=== PATIENT | male | born 1975 | race Caucasian/White ===

== ENCOUNTER → 2017-05-27 08:49 | Outpatient (CLI) | payer BC, SELFPAY ==
--- NOTE | 2017-05-27 08:53 | CT_ITS ---
CT abdomen pelvis w con CLINICAL INDICATION: Right flank pain and hematuria ITS.REASON: RT FLANK PAIN, HEMATURIA ORDERING PHYSICIAN: Jung Jensen MD PATIENT AGE: 41 years COMPARISON: 02/05/2016 TECHNIQUE: Axial images obtained with sagittal and coronal reformats. PROCEDURE: Oral Contrast: None IV Contrast: 75 mL Isovue-370. FINDINGS: Lung bases are clear. The liver, gallbladder, spleen, adrenal glands, and pancreas are unremarkable. No renal or ureteral calculi. No hydronephrosis. No obvious renal mass. There are small lymph nodes in the peritoneum and retroperitoneum which are unchanged. Urinary bladder has an unremarkable appearance. Unremarkable appendix. Nonspecific coarse central prostate calcifications are present. No evidence of diverticulitis. No evidence of intestinal obstruction or free air. There is a tiny umbilical hernia which contains fat. No acute bony anomalies. IMPRESSION: 1. Negative CT abdomen pelvis with no acute finding. 2. No renal or ureteral calculi.
--- NOTE | 2017-05-27 13:27 | HMH.ITSHM ---
blood pressure med
== END ==
PROVIDERS: Family Provider Family Medicine; PCP Family Medicine; Visit Provider Family Medicine
DX: R10.9 Unspecified abdominal pain (principal); R31.9 Hematuria, unspecified
CPT/HCPCS: 74177; Q9967

== ENCOUNTER → 2022-09-14 09:21 | Outpatient (CLI) | payer BC, SELFPAY ==
[2022-09-14 18:42] LABS: Alanine Aminotransferase 47 U/L (12-78); Albumin Level 4.7 g/dl (3.5-5.0); Albumin/Globulin Ratio 2.1 (1.1-1.8); Alkaline Phosphatase 83 U/L (38-126); Anion Gap 17.8 mEq/L (5-15); Aspartate Amino Transferase 37 U/L (17-59); Basophils # 0.1 K/mm3 (0-0.2); Basophils % 0.6 % (0.1-2.0); Bilirubin,Total 0.5 mg/dl (0.2-1.3); Blood Urea Nitrogen 7 mg/dl (9-20); Calcium 9.3 mg/dl (8.4-10.2); Carbon Dioxide 25 mmol/L (22.0-30.0); Chloride 100 mmol/L (98-107); Chol/HDL Ratio 5.7 (1-3.5); Cholesterol 204 mg/dl (140-200); Eosinophils # 0.2 K/mm3 (0.0-0.4); Eosinophils % 2.4 % (0.1-12.0); Estimated Glomerular Filt Rate 103 ml/min (>60); GFR (African American) 125 ML/MIN (>60); Globulin 2.2 g/dL (1.3-3.2); Glucose 113 mg/dl (74-100); HDL Cholesterol 36 mg/dl (40-60); Hematocrit 49.6 % (42.0-52.0); Hemoglobin 16.5 g/dL (14.1-18.0); Lymphocytes # 2.9 K/mm3 (0.7-4.5); Lymphocytes % 28.2 % (10-50); Mean Corpuscular HGB Conc 33.3 g/dL (31.8-35.4); Mean Corpuscular Hemoglobin 30.2 pg (27.0-31.2); Mean Corpuscular Volume 90.8 fl (80-94); Mean Platelet Volume 8.8 fl (7.4-10.4); Monocytes # 0.7 K/mm3 (0.1-1.0); Monocytes % 7.3 % (1.7-9.3); Neutrophils # 6.3 K/mm3 (1.8-7.8); Neutrophils % 61.5 % (37.0-80.0); Platelet Count 307 K/mm3 (142-424); Potassium 3.8 mmoL/L (3.5-5.1); Red Blood Count 5.46 M/mm3 (4.60-6.20); Red Cell Distribution Width 13.7 % (11.5-17.5); Sodium 139 mmol/L (136-145); Total Protein,Serum 6.9 g/dl (6.3-8.2); Triglycerides 220 mg/dl (30-150); VLDL Cholesterol 44 mg/dL (0-40); White Blood Count 10.2 K/mm3 (4.8-10.8)
[2022-09-14 18:53] LABS: Direct LDL Cholesterol 129.16 mg/dL (100-129)
[2022-09-14 19:04] LABS: Hemoglobin A1C 5.5 % (4.0-6.0)
[2022-09-14 19:05] LABS: Creatinine,Urine Random 82 mg/dL (Not Estab.)
[2022-09-14 19:09] LABS: Microalbumin/Creatinine Ratio 17.4
[2022-09-14 19:13] LABS: Prostate Specific Ag Screen 0.2 ng/ml (0.0-4.0); Thyroid Stimulating Hormone 2.05 uIU/mL (0.465-4.68)
== END ==
LOC: LAB.DROPOF 09-15 09:22
PROVIDERS: PCP Nurse Practitioner; Visit Provider Nurse Practitioner
DX: E78.5 Hyperlipidemia, unspecified (principal); I10 Essential (primary) hypertension; Z13.1 Encounter for screening for diabetes mellitus; Z79.899 Other long term (current) drug therapy; Z12.5 Encounter for screening for malignant neoplasm of prostate
CPT/HCPCS: 80053; 80061; 82043; 82570; 83036; 84443; 85025; G0103

== ENCOUNTER 2022-09-15 11:33 | Emergency (ER) | payer BC, SELFPAY ==
--- NOTE | 2022-09-15 11:37 | ECG_ITS ---
APPROVED REPORT Exam: Resting ECG HR:93 bpm ECG Measurements Heart Rate 93 AXES DC 131 P 56 QRSd 99 QRS 26 QT 362 T 48 QTc 413 Conclusion SINUS RHYTHM NORMAL ECG UNCONFIRMED REPORT Electronically signed by : Estrada Sheriff MD 09/15/2022 22:03:55
[2022-09-15 11:41] VITALS: BP 155/83; PULSE 92; RESP 16; TEMP 36.7; O2SAT 96; BMI 33.4
--- NOTE | 2022-09-15 12:00 | XR_ITS ---
FINAL REPORT CLINICAL HISTORY: CP FINDINGS: No acute pulmonary opacity is present. There is no evidence of effusion or pneumothorax. Mediastinum is unremarkable. Heart size is normal. IMPRESSION: No acute abnormality. Reviewed, Interpreted and Dictated by Lilly Leo MD Transcribed by Tea Gee Authenticated and [facility]
--- NOTE | 2022-09-15 12:00 | CT_ITS ---
FINAL REPORT TECHNIQUE: Axial images of the head was performed by computed tomography. Coronal reformatted images were obtained and reviewed. This study was performed with techniques to keep radiation doses as low as reasonably achievable (ALARA). Individualized dose reduction techniques using automated exposure control or adjustment of mA and/or kV according to the patient's size were employed. CLINICAL HISTORY: L arm numbness at 0300, now resolved FINDINGS: No abnormal density is seen. Ventricles are normal. There is no hemorrhage. No mass effect is seen. Bone windows show no evidence of fracture. IMPRESSION: No acute findings. Reviewed, Interpreted and Dictated by Lilly Leo MD Transcribed by Tea Gee Authenticated and [facility]
[2022-09-15 12:01] VITALS: BP 131/82; PULSE 82; O2SAT 97
[2022-09-15 12:18] LABS: Chloride 99 mmol/L (98-107)
[2022-09-15 12:19] LABS: Potassium 3.6 mmoL/L (3.5-5.1); Sodium 138 mmol/L (136-145)
[2022-09-15 12:20] LABS: Basophils # 0.1 K/mm3 (0-0.2); Basophils % 0.4 % (0.1-2.0); Eosinophils # 0.2 K/mm3 (0.0-0.4); Eosinophils % 1.8 % (0.1-12.0); Hematocrit 46.1 % (42.0-52.0); Hemoglobin 15.4 g/dL (14.1-18.0); Lymphocytes # 2.9 K/mm3 (0.7-4.5); Lymphocytes % 21.8 % (10-50); Mean Corpuscular HGB Conc 33.4 g/dL (31.8-35.4); Mean Corpuscular Hemoglobin 30.3 pg (27.0-31.2); Mean Corpuscular Volume 90.6 fl (80-94); Mean Platelet Volume 7.7 fl (7.4-10.4); Monocytes # 0.8 K/mm3 (0.1-1.0); Monocytes % 6.3 % (1.7-9.3); Neutrophils # 9.3 K/mm3 (1.8-7.8); Neutrophils % 69.8 % (37.0-80.0); Platelet Count 267 K/mm3 (142-424); Red Blood Count 5.09 M/mm3 (4.60-6.20); Red Cell Distribution Width 13.7 % (11.5-17.5); White Blood Count 13.3 K/mm3 (4.8-10.8)
[2022-09-15 12:21] LABS: Alanine Aminotransferase 51 U/L (12-78); Alkaline Phosphatase 69 U/L (38-126); Anion Gap 17.6 mEq/L (5-15); Aspartate Amino Transferase 41 U/L (17-59); Bilirubin,Direct 0.1 mg/dl (0.0-0.4); Bilirubin,Indirect 0.4 mg/dL (0.0-0.9); Bilirubin,Total 0.5 mg/dl (0.2-1.3); Bilirubin,Unconjugated 0.4 mg/dL (0.0-1.1); Blood Urea Nitrogen 8 mg/dl (9-20); Carbon Dioxide 25 mmol/L (22.0-30.0); Creatinine Clearance Estimated 159 mL/min (50-200); Estimated Glomerular Filt Rate 103 ml/min (>60); GFR (African American) 125 ML/MIN (>60)
[2022-09-15 12:22] LABS: Albumin Level 4.4 g/dl (3.5-5.0); Calcium 9.2 mg/dl (8.4-10.2); Glucose 164 mg/dl (74-100)
[2022-09-15 12:23] VITALS: BP 139/77; PULSE 78; RESP 17; O2SAT 94
[2022-09-15 12:30] VITALS: BP 144/76; PULSE 74; RESP 17; O2SAT 96
[2022-09-15 12:35] LABS: Troponin I < 0.01 ng/ml (0.00-0.034)
--- NOTE | 2022-09-15 12:44 | HMH.EDGENADL ---
Discharge Plan Disposition Patient Disposition: Home, Self-Care Condition: Good Prescriptions Prescriptions: No Action metoprolol succinate 25 mg tablet extended release 24 hr 25 mg PO DAILY Qty: 90 1RF losartan 50 mg tablet 50 mg PO DAILY Qty: 30 0RF pantoprazole 40 mg tablet,delayed release (DR/EC) 40 mg PO DAILY Qty: 30 5RF Referrals Follow up/Referrals: Reyna Perez APRN [Primary Care Provider] - See instructions Activity Restrictions/Add. Instructions Additional Instructions/Restrictions: You were evaluated in the emergency department today. Please follow-up closely with your primary care provider. Return to the emergency department for new or worsening symptoms. Clinical Impressions Clinical Impression: Left arm numbness Stand Alone Forms Stand Alone Forms: Work/School Release Instructions Patient Instructions: DI for Numbness/Tingling Discharge ED Provider: Beatris Perdomo General Adult HPI General Chief complaint: Neuro Symptoms/Deficit Stated complaint: LT arm numbness Time Seen by Provider: 09/15/22 11:36 Mode of Arrival: Ambulatory Source of Information: Patient and Spouse Limitations: No Limitations Description of Symptoms (Recalled from ER Triage Doc. by RN): pt comes in with c/o left arm numbness that began las tnight into this morning. pt reports that about 30 mins [employer] numbness stopped. pt reports that he was seen by his PCP yesterday and was started on a new BP medication, losartan 50 mg. no neuro deficits on exam. History of Present Illness HPI narrative: This patient is a 47-year-old male who has a history of hypertension presenting to the emergency department for evaluation with concern for left arm tingling that started around 3:00 AM while he was at work and stopped approximately 30 minutes prior to arrival. He states that the numbness was on the medial aspect of his left bicep and felt like a suction cup was on his arm. He was afraid that he may have been bitten by something, but he is in the process of being worked up for history of chest pain, for which his primary care provider wants to get a stress test. Given pending cardiac work-up and left upper extremity symptoms, the patient was advised to come to the emergency department for evaluation. He denies any symptoms at this time. He also denies any recent fevers, chills, chest pain, shortness of breath, abdominal pain, nausea, vomiting, diaphoresis, or other concerns. He also denies any history of traumatic injury or any history of neck pain, headaches, vision changes, other numbness or tingling, weakness, or other concerns. Related Data Previous Rx's Medication Instructions Recorded pantoprazole 40 mg tablet,delayed 40 mg PO DAILY #30 tabs 04/13/22 release losartan 50 mg tablet 50 mg PO DAILY #30 tabs 09/14/22 metoprolol succinate 25 mg 25 mg PO DAILY #90 tabs 09/14/22 tablet,extended release 24 hr Allergies Allergy/AdvReac Type Severity Reaction Status Date / Time No Known Allergies Allergy Verified 09/14/22 14:07 [facility] Disclaimer: The information contained in this section may have been updated after the patient was seen, as this information can be updated by other users. Medical History Chest pain Essential hypertension Family history of early CAD Hyperlipidemia Social History Smoking Status: Current every day smoker alcohol intake: never current occupational status: employed Travel in the last 8 weeks: Inside the [place] ROS Obtained: Yes All systems reviewed & no additional complaints except as documented 14 point review of systems obtained and negative except as mentioned in HPI. Physical Exam General General appearance: alert and in no apparent distress Head Head exam: atraumatic and normocephalic Eye Eye exam: Present normal appearance, PERRL and EOMI ENT
[2022-09-15 13:00] VITALS: BP 146/79; PULSE 76; RESP 17; O2SAT 96
[2022-09-15 13:27] VITALS: BP 145/93; PULSE 75; RESP 15; TEMP 36.6
== END 2022-09-15 13:42 | disposition home or self-care (01) ==
PROVIDERS: Emergency Provider Emergency Medicine; PCP Nurse Practitioner
DX: R20.0 Anesthesia of skin (principal); R20.2 Paresthesia of skin; I10 Essential (primary) hypertension; F17.200 Nicotine dependence, unspecified, uncomplicated
CPT/HCPCS: 70450; 71045; 80048; 80076; 84484; 85025; 93005; 99285

== ENCOUNTER → 2022-09-15 14:53 | Outpatient (CLI) | payer BC, SELFPAY | LOC: RT 14:54 | PROVIDERS: PCP Nurse Practitioner; Visit Provider Nurse Practitioner | DX: R07.9 Chest pain, unspecified (principal) | CPT/HCPCS: 93306 ==

== ENCOUNTER → 2022-09-17 07:35 | Outpatient (CLI) | payer BC, SELFPAY ==
--- NOTE | 2022-09-17 07:37 | NM_ITS ---
APPROVED REPORT Exam: Nuclear Stress Test Indication: chest pain Patient Location: Outpatient Stress Tech: Betty Vargas [place] Tech:TWILA Franklin RT(R)(N) Ht: 5 ft 8 in Wt: 220 lbs HR: 69 bpm BP: 151/83 mmHg BSA: 2.13 m2 TID: 1.18 BMI: 33.4 History: chest pain Procedure: Patient exercised on Feliciano protocol 7:31 minutes and sec, resting heart rate 69 bpm, resting blood pressure 151/83 mmHg, with exercise maximum heart rate achived was 138 bpm which is 80 % of the maximum predicted heart rate and blood pressure was 196/86 mmHg. Test was stopped due to soa. Patient denied any complaint of chest pain. Patient has exercise capacity, achieved 10.0 METs of workload on treadmill, the blood pressure response to exercise was . Cardiac Stress and Resting SPECT Images: Cardiac Stress and Resting SPECT images were obtained using technetium 99m Myoview 32.8 mCi stress and 10.38 mCi at rest. Stress images reveal mildly decreased myocardial activity in the inferior wall while rest images reveal uniform myocardial activity Images calculated ejection fraction of 50% with normal wall motion Conclusion: Small degree of reversible ischemia in the inferior wall Normal ejection fraction with normal wall motion Medical correlation advised Electronically signed by : Tommy Andrade MD 09/17/2022 13:49:37
--- NOTE | 2022-09-17 07:37 | CA_ITS ---
APPROVED REPORT Exam: Exercise Treadmill Technologist: Betty Garcia, Ht: 5 ft 8 in Wt: 260 lbs BSA: 2.28 m2 HR: 65 bpm BP: 152/74 mmHg Medical History Medications: Pantoprazole,,,,, Metoprolol Succinate ER,,,,, Stress Test Details Test: Feliciano HR Resting HR: 69 bpm Max Heart Rate (APMHR): 172.611823 bpm Max HR Achieved: 138 bpm Target HR (85% APMHR): 146.048943 bpm % of APMHR: 80.23 Recovery HR: 84 bpm BP Resting BP: 151/83 mmHg Max BP: 196/86 mmHg Recovery BP: 141.0/62.0 mmHg ECG Resting ECG: NSR, normal Clinical Exercise duration: 07:31 min Highest Stage Achieved: III Exercise capacity: 10.1 METs Stress ECG Conclusion Walked 7:31 on Feliciano Protocol Max HR: 138 % of PM: 80% Max BP: 196/86 METs: 10.1 Test stopped due to: SOA, Fatigue Symptoms: No CP. Arrhythmias/Ectopy: Rare PAC. ST-T Changes: Normal ST response to exercise. Conclusion: Normal GXT to HR achieved (80% PM)-Blunted HR response on Beta-Chinyere. Myoview images reported separately. Test Summary REST . . . . . . . Sitting REST . . . . . . . Standing REST 03:58 0.0 0.0 69 . 151/ 83 . . Stage 1 01:00 10.0 1.7 94 . . . . Stage 1 02:00 10.0 1.7 100 . . . . Stage 1 03:00 10.0 1.7 103 . . . . Stage 2 01:00 12.0 2.5 109 . . . . Stage 2 02:00 12.0 2.5 114 . . . . Stage 2 03:00 12.0 2.5 117 . 196/ 86 . . Stage 3 01:00 14.0 3.4 130 . . . . Stage 3 01:31 14.0 3.4 136 . . . Stop exercise at 07:31 RECOVERY 01:00 0.0 0.0 123 . . . . RECOVERY 02:00 0.0 0.0 97 . . . . RECOVERY 03:00 0.0 0.0 89 . 156/ 63 . . RECOVERY 04:00 0.0 0.0 89 . 156/ 63 . . RECOVERY 05:00 0.0 0.0 84 . 144/ 68 . . RECOVERY 05:32 0.0 0.0 85 . 141/ 62 . . Electronically signed by : Tommy Andrade MD 09/17/2022 10:30:17
== END ==
LOC: RAD 07:37
PROVIDERS: PCP Nurse Practitioner; Visit Provider Nurse Practitioner
DX: R07.9 Chest pain, unspecified (principal)
CPT/HCPCS: 78452; 93017; A9502

== ENCOUNTER 2022-09-22 08:43 | Day surgery (SDC) | payer BC, SELFPAY ==
[2022-09-22] VITALS (12 sets, daily range): BP systolic 114–177; BP diastolic 60–106; PULSE 72–100; RESP 16–18; TEMP 36.8; O2SAT 94–97; BMI 38.9
--- NOTE | 2022-09-22 07:44 | IR_ITS ---
APPROVED REPORT Patient Location: Outpatient Bin Tripper Operator: TWILA Flaherty RT (R) PROCEDURES Left heart catheterization Left ventriculogram Selective coronary angiogram INDICATION Abnormal Myoview, Angina pectoris Informed consent was obtained prior to the procedure. COMPLICATIONS None Estimated Blood Loss: Less than 10 ML TECHNIQUE One percent lidocaine used to anesthetize the right anterior aspect of the wrist. The right radial artery was accessed via the Seldinger technique. A 6 [place] sheath was placed in the right radial artery. 150 mg magnesium sulfate, 800 mcg of nitroglycerin, 1mg Lidocaine and 5000 U Heparin were given through the arterial sheath. The papa catheter was also used to perform left heart catheterization, left ventriculogram and selective coronary angiogram. At the end of the procedure the sheath was removed good hemostasis was achieved using Traclet band, patient was transferred to the postop holding area in stable condition. ANGIOGRAPHIC RESULTS The left main artery Normal The left anterior descending artery Has proximal and mid vessel 20 to 30% stenoses The circumflex artery Has mid vessel 30% stenoses The right coronary artery Is dominant and has diffuse 20 to 40% stenoses The CRUZ ventriculogram reveals Normal 65% The left ventricular end-diastolic pressure Elevated at 25 to 30 mmHg IMPRESSION Mild to moderate nonflow limiting coronary disease as described above Normal ejection fraction Elevated LVEDP consistent with diastolic dysfunction PLAN 1. Medical management for coronary disease 2. Treatment of diastolic dysfunction 3. At this point I am going to hold on starting patient on the loop diuretics and ask him to cut back on carbonated drinks which apparently are consumed copiously 4. LDL less than 55 to be achieved with high intensity statin 5. Recommend sleep study Electronically signed by : Tommy Andrade MD 09/22/2022 12:55:25
== END 2022-09-22 13:54 | disposition home or self-care (01) ==
PROVIDERS: PCP Nurse Practitioner; Visit Provider Internal Medicine
DX: R07.9 Chest pain, unspecified (principal); I25.118 Atherosclerotic heart disease of native coronary artery with other forms of angina pectoris; F17.210 Nicotine dependence, cigarettes, uncomplicated; Z79.899 Other long term (current) drug therapy; I70.203 Unspecified atherosclerosis of native arteries of extremities, bilateral legs; I10 Essential (primary) hypertension; E78.5 Hyperlipidemia, unspecified; Z82.49 Family history of ischemic heart disease and other diseases of the circulatory system
CPT/HCPCS: 93458; 99152; C1725; C1760; C1769; J1644; Q9967

== ENCOUNTER → 2022-11-05 14:17 | Outpatient (CLI) | payer BC, SELFPAY ==
[2022-11-05 15:20] LABS: Chloride 103 mmol/L (98-107); Potassium 4.2 mmoL/L (3.5-5.1); Sodium 139 mmol/L (136-145)
[2022-11-05 15:23] LABS: Anion Gap 15.2 mEq/L (5-15); Blood Urea Nitrogen 12 mg/dl (9-20); Carbon Dioxide 25 mmol/L (22.0-30.0); Estimated Glomerular Filt Rate 103 ml/min (>60); GFR (African American) 125 ML/MIN (>60); Glucose 93 mg/dl (74-100)
== END ==
PROVIDERS: PCP Family Medicine; Visit Provider Nurse Practitioner
DX: I10 Essential (primary) hypertension (principal)
CPT/HCPCS: 36415; 80048

== ENCOUNTER → 2022-11-18 23:00 | Outpatient (CLI) | payer BC, SELFPAY ==
[2022-11-18 19:09] LABS: Alanine Aminotransferase 38 U/L (12-78); Albumin Level 4.5 g/dl (3.5-5.0); Alkaline Phosphatase 103 U/L (38-126); Anion Gap 11.8 mEq/L (5-15); Aspartate Amino Transferase 31 U/L (17-59); Bilirubin,Total 0.7 mg/dl (0.2-1.3); Blood Urea Nitrogen 12 mg/dl (9-20); Calcium 9.1 mg/dl (8.4-10.2); Carbon Dioxide 26 mmol/L (22.0-30.0); Chloride 105 mmol/L (98-107); Chol/HDL Ratio 4.1 (1-3.5); Cholesterol 120 mg/dl (140-200); Estimated Glomerular Filt Rate 90 ml/min (>60); GFR (African American) 109 ML/MIN (>60); Globulin 2.2 g/dL (1.3-3.2); Glucose 84 mg/dl (74-100); HDL Cholesterol 29 mg/dl (40-60); Potassium 3.8 mmoL/L (3.5-5.1); Sodium 139 mmol/L (136-145); Total Protein,Serum 6.7 g/dl (6.3-8.2); Triglycerides 148 mg/dl (30-150); VLDL Cholesterol 30 mg/dL (0-40)
[2022-11-18 19:20] LABS: Direct LDL Cholesterol 68.44 mg/dL (100-129)
[2022-11-18 20:57] LABS: Hemoglobin A1C 5.8 % (4.0-6.0)
== END ==
PROVIDERS: PCP Nurse Practitioner; Visit Provider Nurse Practitioner
DX: I10 Essential (primary) hypertension (principal); E78.5 Hyperlipidemia, unspecified; Z79.899 Other long term (current) drug therapy
CPT/HCPCS: 80053; 80061; 83036

== ENCOUNTER 2024-01-13 16:19 | Outpatient (CLI) | payer BC, SELFPAY ==
[2024-01-13 19:23] LABS: Basophils # 0.1 K/mm3 (0-0.2); Basophils % 0.5 % (0.1-2.0); Eosinophils # 0.2 K/mm3 (0.0-0.4); Eosinophils % 2.1 % (0.1-12.0); Hematocrit 45.8 % (42.0-52.0); Hemoglobin 14.5 g/dL (14.1-18.0); Lymphocytes # 2.8 K/mm3 (0.7-4.5); Lymphocytes % 26.1 % (10-50); Mean Corpuscular HGB Conc 31.6 g/dL (31.8-35.4); Mean Corpuscular Hemoglobin 30.6 pg (27.0-31.2); Mean Corpuscular Volume 96.8 fl (80-94); Mean Platelet Volume 8.6 fl (7.4-10.4); Monocytes # 0.7 K/mm3 (0.1-1.0); Neutrophils # 6.8 K/mm3 (1.8-7.8); Neutrophils % 64.3 % (37.0-80.0); Platelet Count 295 K/mm3 (142-424); Red Blood Count 4.73 M/mm3 (4.60-6.20); Red Cell Distribution Width 14.3 % (11.5-17.5); White Blood Count 10.6 K/mm3 (4.8-10.8)
[2024-01-13 19:45] LABS: Microalbumin/Creatinine Ratio 31.8
[2024-01-13 19:47] LABS: Creatinine,Urine Random 86 mg/dL (Not Estab.)
[2024-01-13 19:59] LABS: Alanine Aminotransferase 26 U/L (12-78); Albumin Level 4.1 g/dl (3.5-5.0); Albumin/Globulin Ratio 1.6 (1.1-1.8); Alkaline Phosphatase 98 U/L (38-126); Aspartate Amino Transferase 25 U/L (17-59); Bilirubin,Total 0.6 mg/dl (0.2-1.3); Blood Urea Nitrogen 14 mg/dl (9-20); Calcium 9.4 mg/dl (8.4-10.2); Carbon Dioxide 25 mmol/L (22.0-30.0); Chloride 109 mmol/L (98-107); Chol/HDL Ratio 5.1 (1-3.5); Cholesterol 138 mg/dl (140-200); Estimated Glomerular Filt Rate 79 ml/min (>60); GFR (African American) 96 ML/MIN (>60); Globulin 2.6 g/dL (1.3-3.2); Glucose 95 mg/dl (74-100); HDL Cholesterol 27 mg/dl (40-60); Potassium 3.9 mmoL/L (3.5-5.1); Total Protein,Serum 6.7 g/dl (6.3-8.2); Triglycerides 168 mg/dl (30-150); VLDL Cholesterol 34 mg/dL (0-40)
[2024-01-13 20:10] LABS: Hemoglobin A1C 5.7 % (4.0-6.0)
[2024-01-13 20:11] LABS: Anion Gap 9.9 mEq/L (5-15); Sodium 140 mmol/L (136-145)
[2024-01-13 20:14] LABS: 25-OH Vitamin D, Total 72.4 ng/mL (30-100)
[2024-01-13 20:27] LABS: Direct LDL Cholesterol 80.71 mg/dL (100-129)
[2024-01-13 20:31] LABS: Prostate Specific Ag Screen 0.3 ng/ml (0.0-4.0); Thyroid Stimulating Hormone 2.77 uIU/mL (0.465-4.68)
[2024-01-13 20:50] LABS: Vitamin B12 528 pg/mL (239-931)
== END 2024-01-13 23:59 | disposition home or self-care (01) ==
LOC: LAB.DROPOF 01-14 16:19
PROVIDERS: PCP Nurse Practitioner; Visit Provider Nurse Practitioner
DX: E55.9 Vitamin D deficiency, unspecified (principal); I10 Essential (primary) hypertension; E78.5 Hyperlipidemia, unspecified; I25.10 Atherosclerotic heart disease of native coronary artery without angina pectoris; Z12.5 Encounter for screening for malignant neoplasm of prostate; Z68.37 Body mass index [BMI] 37.0-37.9, adult; E66.9 Obesity, unspecified; F17.200 Nicotine dependence, unspecified, uncomplicated
CPT/HCPCS: 80050; 80053; 80061; 82043; 82306; 82570; 82607; 83036; 84443; 85025; G0103

== ENCOUNTER 2024-04-04 16:15 | Outpatient (CLI) | payer BC, SELFPAY ==
--- NOTE | 2024-04-04 16:21 | XR_ITS ---
PROCEDURE INFORMATION: Exam: XR Right Shoulder Exam date and time: 04/04/2024 4:23 PM Age: 48 years old Clinical indication: Pain; Shoulder; Right; Additional info: Right shoulder pain TECHNIQUE: Imaging protocol: Radiologic exam of the right shoulder. Views: 2 or more views. COMPARISON: CR XR CHEST PORTABLE 09/15/2022 12:23 PM FINDINGS: Bones/joints: No acute fracture or dislocation. Normal bone mineralization. Acromioclavicular joint is normal. Glenohumeral joint is normal. Included ribs are unremarkable. Soft tissues: No soft tissue swelling or radiopaque foreign body. IMPRESSION: No acute findings.
== END 2024-04-04 23:59 | disposition home or self-care (01) ==
LOC: LAB 16:16
PROVIDERS: PCP Nurse Practitioner; Visit Provider Nurse Practitioner
DX: M25.511 Pain in right shoulder (principal)
CPT/HCPCS: 73030

== ENCOUNTER 2024-09-18 17:04 | Outpatient (CLI) | payer BC, SELFPAY ==
--- NOTE | 2024-09-18 17:35 | XR_ITS ---
PROCEDURE INFORMATION: Exam: XR Chest Exam date and time: 09/18/2024 5:38 PM Age: 49 years old Clinical indication: Pain; Chest pressure; Additional info: Postprandial chest pain TECHNIQUE: Imaging protocol: Radiologic exam of the chest. Views: 2 views. COMPARISON: CR XR CHEST PORTABLE 09/15/2022 12:23 PM FINDINGS: Lungs: Unremarkable. No consolidation. Pleural spaces: Unremarkable. No pleural effusion. No pneumothorax. Heart/Mediastinum: Unremarkable. No cardiomegaly. Bones/joints: Unremarkable. IMPRESSION: No acute findings.
[2024-09-18 17:51] LABS: Basophils # 0.1 K/mm3 (0-0.2); Basophils % 0.5 % (0.1-2.0); Eosinophils # 0.1 Kmm3 (0.0-0.4); Eosinophils % 0.6 % (0.1-12.0); Hematocrit 44.4 % (42.0-52.0); Hemoglobin 15.2 g/dL (14.1-18.0); Immature Granulocytes # 0.04 10^3uL; Immature Granulocytes % 0.4 %; Lymphocytes # 1.8 K/mm3 (0.7-4.5); Lymphocytes % 18.2 % (10-50); Mean Corpuscular HGB Conc 34.2 g/dL (31.8-35.4); Mean Corpuscular Hemoglobin 30.5 pg (27.0-31.2); Mean Platelet Volume 9.5 fl (7.4-10.4); Monocytes # 0.8 K/mm3 (0.1-1.0); Monocytes % 8.3 % (1.7-9.3); Neutrophils # 7.1 K/mm3 (1.8-7.8); Nucleated Red Blood Cells # 0 10^3/uL; Nucleated Red Blood Cells % 0 %; Platelet Count 271 K/mm3 (142-424); Red Blood Count 4.99 M/mm3 (4.60-6.20); Red Cell Distribution Width 13.1 % (11.5-17.5); Red Cell Distribution Width-SD 42.8 fL; White Blood Count 9.8 K/mm3 (4.8-10.8)
[2024-09-18 20:01] LABS: Alanine Aminotransferase 23 U/L (12-78); Albumin Level 4.8 g/dl (3.5-5.0); Albumin/Globulin Ratio 2.4 (1.1-1.8); Alkaline Phosphatase 107 U/L (38-126); Amylase 54 U/L (30-110); Anion Gap 9.4 mEq/L (5-15); Aspartate Amino Transferase 23 U/L (17-59); Bilirubin,Total 0.4 mg/dl (0.2-1.3); Blood Urea Nitrogen 15 mg/dl (9-20); Calcium 9.2 mg/dl (8.4-10.2); Carbon Dioxide 23 mmol/L (22.0-30.0); Chloride 110 mmol/L (98-107); Estimated Glomerular Filt Rate 79 ml/min (>60); GFR (African American) 96 ML/MIN (>60); Glucose 89 mg/dl (74-100); Lipase 89 U/L (23-300); Potassium 4.4 mmoL/L (3.5-5.1); Sodium 138 mmol/L (136-145); Total Protein,Serum 6.8 g/dl (6.3-8.2)
[2024-09-18 20:16] LABS: Troponin I 0.09 ng/ml (0.00-0.034)
[2024-09-21 07:32] LABS: H. pylori Breath Test Negative (Negative)
== END 2024-09-18 23:59 | disposition home or self-care (01) ==
PROVIDERS: PCP Nurse Practitioner; Visit Provider Nurse Practitioner
DX: I25.10 Atherosclerotic heart disease of native coronary artery without angina pectoris (principal); R07.9 Chest pain, unspecified; K21.9 Gastro-esophageal reflux disease without esophagitis; R14.0 Abdominal distension (gaseous)
CPT/HCPCS: 36415; 71046; 80053; 82150; 83013; 83690; 84484; 85025

== ENCOUNTER 2024-09-19 16:21 | Inpatient (IN) | payer BC, SELFPAY ==
[2024-09-19] VITALS (20 sets, daily range): BP systolic 99–166; BP diastolic 66–105; PULSE 60–80; RESP 18–20; TEMP 36.4–37.1; O2SAT 95–100; BMI 36.9
[2024-09-19 10:31] LABS: Troponin I 0.11 ng/ml (0.00-0.034)
--- NOTE | 2024-09-19 12:39 | IR_ITS ---
APPROVED REPORT Patient Location: Outpatient Acid Dumper: TWILA Nichloson RT (R) PROCEDURES Left heart catheterization Left ventriculogram Selective coronary angiogram Drug-eluting stent deployment to the distal dominant right coronary artery INDICATION Acute non-ST elevation myocardial infarction, Coronary artery disease, Informed consent was obtained prior to the procedure. COMPLICATIONS NONE Estimated Blood Loss: LESS THAN 10 ML TECHNIQUE One percent lidocaine used to anesthetize the right anterior aspect of the wrist. The right radial artery was accessed via the Seldinger technique. A 6 Korean sheath was placed in the right radial artery. 2.5 mg of Verapamil, 800 mcg of nitroglycerin, 1mg Lidocaine and 5000 U Heparin were given through the arterial sheath. The JL3 catheter was also used to perform left heart catheterization, left ventriculogram and selective coronary angiogram. At the end of the diagnostic angiogram therapeutic Was administered given a therapeutic ACT and the guide catheter was placed in the right coronary followed by a Choice PT extra-support wire placed distally. A 3 mm x 38 mm Sathish frontier stent was placed in the distal right coronary artery just proximal to the posterior descending artery and deployed at 12 mindy. A 3 mm x 12 mm noncompliant balloon was deployed in the proximal and midportion of the stent at 22 mindy to post dilate. BRIANNA II flow was present at the beginning of the procedure with BRIANNA-3 flow at the end of the procedure. At the end the procedure the apparatus was removed the sheath was removed and hemostasis was achieved using TR banding patient was transferred to the postop putting in stable condition ANGIOGRAPHIC RESULTS The left main artery Normal The left anterior descending artery Has an ostial 70% stenosis followed by mid vessel diffuse 20 to 30% stenoses The circumflex artery Nondominant yet still large with the proximal 60 to 70% concentric stenosis with 30 and 40% stenoses in a large first obtuse marginal artery The right coronary artery Is a dominant vessel and has proximal 40% stenoses with a distal concentric greater than 90% stenosis accompanied by BRIANNA II flow. There is diffuse 40% stenoses throughout the posterior sending artery The CRUZ ventriculogram reveals Normal 60% The left ventricular end-diastolic pressure Elevated at 20 to 25 mmHg IMPRESSION Critical distal dominant right coronary artery stenosis accompanied by BRIANNA II flow which improved to BRIANNA-3 flow following stenting with 1 drug-eluting stent Persistent severe stenosis in the ostial LAD and proximal circumflex artery Normal ejection fraction Elevated LVEDP Acute non-ST elevation myocardial infarction PLAN 1. Effient and aspirin 2. LDL less than 55 to achieve that high intensity statin 3. Avoidance of tobacco products 4. Patient did have positive troponins with a critical stenosis accompanied by reduced coronary flow which improved following revascularization. Patient should be admitted to the hospital and observed overnight 5. Patient will be brought back to the hospital in 2 to 3 weeks and will undergo stenting of the ostial LAD and circumflex artery Electronically signed by : Tommy Andrade MD 09/19/2024 14:21:56
[2024-09-19] MEDS: HEPARIN 1,000 UNITS/500ML NS (CATH LAB) 3000 UNIT IV (13:05)
[2024-09-19] MEDS: diphenhydrAMINE 50MG/ML VIAL 50 MG IV (13:06)
[2024-09-19] MEDS: LIDOCAINE 1% 10ML MDV 10 ML IJ (13:06)
[2024-09-19] MEDS: 0.9 % SODIUM CHLORIDE 500 ML 25 ML IV (13:06)
[2024-09-19] MEDS: NITROGLYCERIN 800MCG/8ML SYR (CATH LAB) 800 MCG IA (13:07)
[2024-09-19] MEDS: VERAPAMIL 2.5MG/ML 2ML VIAL 2.5 MG IV (13:07)
[2024-09-19] MEDS: FENTANYL 100MCG/2ML VIAL 25 MCG IV (13:49)
[2024-09-19] MEDS: HEPARIN 1,000 UNITS/ML 10ML VIAL (CATH LAB) 5000 UNIT IV (13:49)
[2024-09-19] MEDS: MIDAZOLAM HCL 1MG/ML 5ML VIAL 1 MG IV (13:50)
[2024-09-19] MEDS: IOPAMIDOL-370 (76%);100ML BOTTLE 110 ML IV (14:17)
[2024-09-19] MEDS: PRASUGREL 10MG TAB 60 MG PO (14:17)
[2024-09-19 14:19] LABS: CATHL Activated Clotting Time 363 SEC (74-125)
--- NOTE | 2024-09-19 14:29 | HMH.PHAINT1 ---
Pharmacy Intervention Comments: MEDICATION RECONCILIATION COMPLETED ON PATIENT USING EXTERNAL FILL HISTORY FROM PHARMACY AND LISTS FROM CARDIOLOGY/PCP OFFICES. -[facility]
--- NOTE | 2024-09-19 16:26 | P.HP_ITS ---
History of Present Illness *Admission Date: 09/19/24 *Reason for visit:: chest pain, unstable angina *History of present illness: Mr. Pugh is a 49-year-old male who was referred to cardiology because of worsening chest pain and abnormal labs by his PCP. Smokes 2 to 3 packs of cigarettes a day. Has been having some chest pain. Primary care doc ordered troponin which was detectable at 0.9. Was referred to cardiology for evaluation. On repeat labs, troponin increased to 0.11. Still having pain. Worse with exertion. Risk factors with tobacco use disorder, hypertension. Heart score of 6, risk of Mace of 12 to 16%. Recommended admission for further evaluation and monitoring after NSTEMI. Decision made in cardiology clinic to take patient to the Mental Health Worker for further evaluation. Found to have critical RCA stenosis. Received 1 stent. Discussed case with cardiology after procedure, request admission for monitoring overnight. I agreed to admit for further care. Patient remains on room air. Not having chest pain at this time. Relatively flat affect. at bedside who is his surrogate decision maker. [place] Score 12.3% [facility] Disclaimer: The information contained in this section may have been updated after the patient was seen, as this information can be updated by other users. Medical History GERD (gastroesophageal reflux disease) Right shoulder pain Vitamin D deficiency Diastolic dysfunction Coronary artery disease Claudication Edema of both lower extremities Dizziness Abnormal result of cardiovascular function study Abnormal stress test Family history of early CAD Chest pain Hyperlipidemia Essential hypertension Surgical History Hx of cardiac cath Family History Grandmother Cancer Father Diabetes Heart attack Hypertension Mother Hypertension Social History Smoking Status: Current every day smoker alcohol intake: never current occupational status: employed Travel in the last 8 weeks?: Inside the [place] Have you lived/traveled outside US in past 30 days?: No Contact w/someone who lives/traveled outside US past 30 days?: No Exposure to someone with infectious disease in past 14 days?: No Do you have a fever (greater than 100.4 F or 38 C)?: No Have you tested positive for COVID-19?: No Exposed to someone with COVID-19 in past 14 days?: No Do you have a sore throat?: No Do you have a cough?: No Do you have any weakness?: No Do you have any diarrhea?: No Are you experiencing any unusual bleeding?: No Do you have any muscle aches/pain?: No Do you have any abdominal pain?: No Are you experiencing loss of taste or smell?: No Review of Systems Review of Systems Review of systems (narrative): 14 point review of systems performed, pertinent positives and negatives as per HPI Meds Home Medications and Allergies Home Medications ?Medication ?Instructions ?Recorded ?Confirmed ?Type cholecalciferol (vitamin D3) 25 25 mcg PO DAILY . 09/18/22 09/19/24 History mcg (1,000 unit) capsule furosemide 40 mg tablet (Lasix) 40 mg PO DAILY #90 tabs 12/02/23 09/19/24 Rx losartan 50 mg tablet 50 mg PO DAILY #90 tabs 12/02/23 09/19/24 Rx Bacillus coagulans-inulin 1 1 cap PO DAILY #100 caps 02/25/24 09/19/24 Rx billion cell-250 mg capsule (Probiotic Formula (inulin)) coenzyme Q10 100 mg capsule 100 mg PO DAILY 03/23/24 09/19/24 History (Q-Sorb Co Q-10) metoprolol succinate 25 mg 25 mg PO DAILY #90 tabs 03/23/24 09/19/24 Rx tablet,extended release 24 hr aspirin 81 mg tablet,delayed 81 mg PO DAILY #90 tabs 09/04/24 09/19/24 Rx release famotidine 40 mg tablet 40 mg PO BID #60 tabs 09/18/24 09/19/24 Rx lansoprazole 30 mg capsule,delayed 30 mg PO BID #30 caps 09/18/24 09/19/24 Rx release atorvastatin 80 mg tablet (Lipitor) 80 mg PO DAILY #90 tabs 09/19/24 09/19/24 Rx prasugrel HCl 10 mg tablet 10 mg PO DAILY 30 days #30 tabs 09/19/24 Rx (Effient) New Prescriptions to Start Prescriptions: prasugrel HCl [Effient] Tommy Andrade Allergies Allergy/AdvReac Type Severity Reaction Status Date / Time No Known Allergies Allergy Verified 09/19/24 10:29 Exam Data for Last 24 hours Vital signs and Labs for Last 24 Hours: Temp Pulse Resp BP Pulse Ox O2 Del Method 97.6 F 69 20 116/80 98 Room Air 09/19/24 15:45 09/19/24 15:45 09/19/24 15:45 09/19/24 15:45 09/19/24 15:45 09/19/24 15:45 Laboratory Results - last 24 hr 09/19/24 10:00: Troponin I 0.11 H 09/19/24 13:33: Activated Clotting Time 363 H* I & O for Last 24 hours: Intake & Output 09/16/24 09/17/24 09/18/24 09/19/24 23:59 23:59 23:59 23:59 Weight 110.223 kg Constitutional Constitutional: no acute distress, obese, chronically ill appearing and cooperative *Routine HEENT Exam Head: Present normocephalic Eye: Present EOMI and PERRL ENT: Present mucous membranes moist *Routine Neck Exam Neck: Present supple; Absent lymphadenopathy *Routine Respiratory Exam Respiratory: Present CTA bilaterally *Routine Cardiovascular Exam Cardiovascular: Present RRR *Routine Abdominal Exam Abdominal: Present soft and normoactive bowel sounds; Absent tenderness *Routine Rectal Exam Rectal:: deferred *Routine Genitalia Exam Genitalia:: deferred *Routine Extremities Exam Extremities: Absent cyanosis, clubbing or edema *Routine Skin Exam Skin: Present warm; Absent rash *Routine Neurological Exam Neurological: Present alert, oriented X3 and moving all extremities; Absent altered mental status Assessment and Plan *Assessment and plan (1) NSTEMI (non-ST elevated myocardial infarction): Status: Acute Category: Medical Code(s): I21.4 - Non-ST elevation (NSTEMI) myocardial infarction (2) GERD (gastroesophageal reflux disease): Status: Acute Category: Medical Code(s): K21.9 - Gastro-esophageal reflux disease without esophagitis (3) Coronary artery disease: Status: Chronic Qualifiers: Associated angina: with other forms of angina Coronary Disease- Associated Artery/Lesion type: [place] artery [place] vs. transplanted heart: [place] heart Qualified Code(s): I25.118 - Atherosclerotic heart disease of [place] coronary artery with other forms of angina pectoris Category: Medical Code(s): I25.10 - Atherosclerotic heart disease of [place] coronary artery without angina pectoris (4) Hyperlipidemia: Status: Acute Qualifiers: Hyperlipidemia type: unspecified Qualified Code(s): E78.5 - Hyperlipidemia, unspecified Category: Medical Code(s): E78.5 - Hyperlipidemia, unspecified (5) Essential hypertension: Status: Acute Category: Medical Code(s): I10 - Essential (primary) hypertension (6) Class II obesity: Status: Acute Category: Medical Code(s): E66.812 - Obesity, class 2 Plan 49-year-old male who presented to cards clinic with unstable angina. Taken to the Mental Health Worker, found to have NSTEMI due to critical distal dominant right coronary stenosis necessitating stent. Discussed case with cardiology, request admission for monitoring overnight. I agreed to admit for further care. Hemodynamically stable on room air. Problems addressed as follows: NSTEMI Unstable angina CAD -Taken for left heart cath, discussed case with cardiology, findings of critical distal dominant right coronary artery stenosis. 1 drug-eluting stent deployed. Has persistent severe stenosis in the ostial LAD and proximal circumflex. Plan to return in 2 to 3 weeks for repeat procedure and stenting. Initiated on goal-directed therapy. - Continue aspirin 81 mg daily and prasugrel 10 mg daily, Lipitor 80 mg nightly, metoprolol succinate 25 mg daily, irbesartan 75 mg daily as formulary conversion - Troponin detectable at 0.9 yesterday, increased 0.11 today. - Lipid panel ordered for the morning. - Repeat CBC, CMP, magnesium ordered for the morning Tobacco use disorder: Smokes 2 to 3 packs a day. Initiate nicotine patch 42 mg daily to decrease cravings. Counseled on significance of smoking. Patient precontemplative GERD: Continue pantoprazole 40 mg twice daily Labs obtained yesterday with white count of 9.8, hemoglobin 15.2. Kidney function normal with BUN 15, creatinine 1. Full code heparinized in supervisor cytogenetic laboratory cardiac diet
--- NOTE | 2024-09-19 18:36 | PC.NURSE ---
patient is alert and oriented x4, denies chest pain/SOA. Radial band removed at 1800, no drainage at puncture site, 4x4 gauze and tegaderm applied. VSS, 97% O2 sat on room air. Patient is independent.
[2024-09-19] MEDS: NICOTINE 21MG/24HR PATCH 42 MG TD (20:06)
[2024-09-19] MEDS: ATORVASTATIN 40MG TABLET 80 MG PO (21:15)
[2024-09-19] MEDS: PANTOPRAZOLE 40MG TABLET 40 MG PO (21:16)
[2024-09-20] VITALS: BP 118/69; PULSE 70; PULSE 73; RESP 16; TEMP 36.6; O2SAT 95
[2024-09-20] MEDS: CALCIUM CARBONATE 500MG CHEWTAB 500 MG PO (03:07)
[2024-09-20 04:00] VITALS: BP 140/72; PULSE 70; PULSE 76; RESP 16; TEMP 36.5; O2SAT 97; BMI 36.8
--- NOTE | 2024-09-20 05:51 | PC.NURSE ---
Pt. was admitted 09/19/24 with a NSTEMI. Pt went to [facility] and had a stent placed in the RCA. Pt. doing well after the heart cath. Pt. is alert and orientated x 4. Pt. on room air. Pt. denies any chest pain, SOB, nausea, vomiting, arm or jaw pain. Pt. had a left heart cath. the right radail wrist was used for the procedure. Pt. has a dressing to right radial wrist that is clean, dry, intact. Per plan pt. may be returning in 2-3 weeks for another cath and further stenting of the LAD and circumflex artery VS a cardiac bypass surgery. Pt. not happy about surgery. Pt. up ambulating in hallways. Tolerating PO intake, solids and liquids. Did have an episode of hearburn that resolved with TUMS. Personal items and call coleman in reach.
[2024-09-20 06:44] LABS: Basophils % 0.4 % (0.1-2.0); Eosinophils # 0.2 Kmm3 (0.0-0.4); Eosinophils % 1.8 % (0.1-12.0); Hematocrit 40.9 % (42.0-52.0); Hemoglobin 13.7 g/dL (14.1-18.0); Immature Granulocytes # 0.05 10^3uL; Immature Granulocytes % 0.5 %; Lymphocytes # 2.4 K/mm3 (0.7-4.5); Lymphocytes % 23.8 % (10-50); Mean Corpuscular HGB Conc 33.5 g/dL (31.8-35.4); Mean Corpuscular Volume 89.5 fl (80-94); Mean Platelet Volume 9.8 fl (7.4-10.4); Monocytes # 0.8 K/mm3 (0.1-1.0); Neutrophils # 6.7 K/mm3 (1.8-7.8); Neutrophils % 65.5 % (37.0-80.0); Nucleated Red Blood Cells # 0 10^3/uL; Nucleated Red Blood Cells % 0 %; Platelet Count 243 K/mm3 (142-424); Red Blood Count 4.57 M/mm3 (4.60-6.20); Red Cell Distribution Width 13.2 % (11.5-17.5); Red Cell Distribution Width-SD 43.5 fL; White Blood Count 10.3 K/mm3 (4.8-10.8)
[2024-09-20 07:03] LABS: Anion Gap 6.8 mEq/L (5-15); Blood Urea Nitrogen 14 mg/dl (9-20); Calcium 8.7 mg/dl (8.4-10.2); Carbon Dioxide 23 mmol/L (22.0-30.0); Chloride 112 mmol/L (98-107); Creatinine Clearance Estimated 125 mL/min (50-200); Estimated Glomerular Filt Rate 71 ml/min (>60); GFR (African American) 86 ML/MIN (>60); Glucose 123 mg/dl (74-100); Potassium 3.8 mmoL/L (3.5-5.1); Sodium 138 mmol/L (136-145)
[2024-09-20 07:25] LABS: Alanine Aminotransferase 19 U/L (12-78); Albumin Level 4.5 g/dl (3.5-5.0); Alkaline Phosphatase 88 U/L (38-126); Aspartate Amino Transferase 23 U/L (17-59); Bilirubin,Direct 0.2 mg/dl (0.0-0.4); Bilirubin,Indirect 0.3 mg/dL (0.0-0.9); Bilirubin,Total 0.5 mg/dl (0.2-1.3); Bilirubin,Unconjugated 0.3 mg/dL (0.0-1.1); Chol/HDL Ratio 4.1 (1-3.5); Cholesterol 111 mg/dl (140-200); HDL Cholesterol 27 mg/dl (40-60); Total Protein,Serum 6.1 g/dl (6.3-8.2); Triglycerides 175 mg/dl (30-150); VLDL Cholesterol 35 mg/dL (0-40)
--- NOTE | 2024-09-20 07:32 | P.DS_ITS ---
General Admission date:: 09/19/24 Discharge date: 09/20/24 HPI HPI HPI: Mr. Pugh is a 49-year-old male who was referred to cardiology because of worsening chest pain and abnormal labs by his PCP. Smokes 2 to 3 packs of cigarettes a day. Has been having some chest pain. Primary care doc ordered troponin which was detectable at 0.9. Was referred to cardiology for evaluation. On repeat labs, troponin increased to 0.11. Still having pain. Worse with exertion. Risk factors with tobacco use disorder, hypertension. Heart score of 6, risk of Mace of 12 to 16%. Recommended admission for further evaluation and monitoring after NSTEMI. Decision made in cardiology clinic to take patient to the [facility] for further evaluation. Found to have critical RCA stenosis. Received 1 stent. Discussed case with cardiology after procedure, request admission for monitoring overnight. I agreed to admit for further care. Patient remains on room air. Not having chest pain at this time. Relatively flat affect. at bedside who is his surrogate decision maker. [place] Score 12.3% Hospital Course Hospital Course Hospital Course: 49-year-old male who presented to cards clinic with unstable angina. Taken to the [facility], found to have NSTEMI due to critical distal dominant right coronary stenosis necessitating stent. Discussed case with cardiology, request admission for monitoring overnight. I agreed to admit for further care. Hemodynamically stable on room air. Did well overnight. No issues. Labs stable in the morning. Discharge home with close follow-up as an outpatient. Problems addressed as follows: NSTEMI Unstable angina CAD -Taken for left heart cath, discussed case with cardiology, findings of critical distal dominant right coronary artery stenosis. 1 drug-eluting stent deployed. Has persistent severe stenosis in the ostial LAD and proximal circumflex. Plan to return in 2 to 3 weeks for repeat procedure and stenting. Initiated on goal- directed therapy. Continue aspirin 81 mg daily and prasugrel 10 mg daily, Lipitor 80 mg nightly, metoprolol succinate 25 mg daily, and losartan 50 mg daily. Mild elevation in troponin 0.11. Lipid panel with LDL of 65. Will discharge home with close follow-up with cardiology as an outpatient for further management. Will likely need to repeat cath in the coming weeks to a month to address persistent CAD. Tobacco use disorder: Smokes 2 to 3 packs a day. Initiate nicotine patch 42 mg daily to decrease cravings. Counseled on significance of smoking. Patient precontemplative GERD: Continue pantoprazole 40 mg twice daily Kidney function acceptable during admission. Remained normal. No signs of CKD or GLENDA Exam Data for Last 24 hours Vital signs and Labs for Last 24 Hours: Temp Pulse Resp BP Pulse Ox O2 Del Method 97.7 F 76 16 140/72 97 Room Air 09/20/24 04:00 09/20/24 04:00 09/20/24 04:00 09/20/24 04:00 09/20/24 04:00 09/20/24 06:58 Laboratory Results - last 24 hr 09/19/24 10:00: Troponin I 0.11 H 09/19/24 13:33: Activated Clotting Time 363 H* 09/20/24 05:38: WBC 10.3, RBC 4.57 L, Hgb 13.7 L, Hct 40.9 L, MCV 89.5, MCH 30.0, MCHC 33.5, RDW 13.2, Plt Count 243, MPV 9.8, Neut % (Auto) 65.5, Lymph % (Auto) 23.8, [place] % (Auto) 8.0, Eos % (Auto) 1.8, Baso % (Auto) 0.4, Neut # (Auto) 6.7, Lymph # (Auto) 2.4, [place] # (Auto) 0.8, Eos # (Auto) 0.2, Baso # (Auto) 0.0, Sodium 138, Potassium 3.8, Chloride 112 H, Carbon Dioxide 23, Anion Gap 6.8, BUN 14, Creatinine 1.10, Estimated Creat Clear 125, Estimated GFR 71, Est GFR ( Amer) 86, Glucose 123 H, Calcium 8.7, Total Bilirubin 0.5, Direct Bilirubin 0.2, Conjugated Bilirubin 0.0, Indirect Bilirubin 0.3, Unconjugated Bilirubin 0.3, AST 23, ALT 19, Alkaline Phosphatase 88, Total Protein 6.1 L, Albumin 4.5, Triglycerides 175 H, Cholesterol 111 L, VLDL Cholesterol 35, HDL Cholesterol 27 L, Cholesterol/HDL Ratio 4.1 H I & O for Last 24 hours: Intake & Output 09/17/24 09/18/24 09/19/24 09/20/24 23:59 23:59 23:59 23:59 Intake Total 360 / 600 240 / 240 Output Total 0 / 0 0 / 0 Balance 360 / 600 240 / 240 Weight 110.223 kg 110.223 kg Constitutional Constitutional: no acute distress, obese and cooperative *Routine HEENT Exam Head: Present normocephalic Eye: Present EOMI and PERRL ENT: Present mucous membranes moist *Routine Neck Exam Neck: Present supple; Absent lymphadenopathy *Routine Respiratory Exam Respiratory: Present CTA bilaterally; Absent rhonchi, wheezes or crackles *Routine Cardiovascular Exam Cardiovascular: Present RRR *Routine Abdominal Exam Abdominal: Present soft and normoactive bowel sounds; Absent tenderness *Routine Rectal Exam Patient deferred: visual exam *Routine Exam Patient deferred: penile exam *Routine Extremities Exam Extremities: Absent cyanosis, clubbing or edema Comments: Right radial site clean dry and intact, no hematoma *Routine Skin Exam Skin: Present warm; Absent rash *Routine Neurological Exam Neurological: Present alert, oriented X3 and moving all extremities; Absent altered mental status Results Data Completed and Pending Labs on day of discharge: Labs from last 24 hours 09/20/24 09/19/24 09/19/24 05:38 13:33 10:00 WBC 10.3 RBC 4.57 L Hgb 13.7 L Hct 40.9 L MCV 89.5 MCH 30.0 MCHC 33.5 RDW 13.2 Plt Count 243 MPV 9.8 Neut % (Auto) 65.5 Lymph % (Auto) 23.8 [place] % (Auto) 8.0 Eos % (Auto) 1.8 Baso % (Auto) 0.4 Neut # (Auto) 6.7 Lymph # (Auto) 2.4 [place] # (Auto) 0.8 Eos # (Auto) 0.2 Baso # (Auto) 0.0 Activated Clotting Time 363 H* Sodium 138 Potassium 3.8 Chloride 112 H Carbon Dioxide 23 Anion Gap 6.8 BUN 14 Creatinine 1.10 Estimated Creat Clear 125 Estimated GFR 71 Est GFR ( Amer) 86 Glucose 123 H Calcium 8.7 Total Bilirubin 0.5 Direct Bilirubin 0.2 Conjugated Bilirubin 0.0 Indirect Bilirubin 0.3 Unconjugated Bilirubin 0.3 AST 23 ALT 19 Alkaline Phosphatase 88 Troponin I 0.11 H Total Protein 6.1 L Albumin 4.5 Triglycerides 175 H Cholesterol 111 L VLDL Cholesterol 35 HDL Cholesterol 27 L Cholesterol/HDL Ratio 4.1 H DS: Diagnosis Discharge Diagnosis (1) NSTEMI (non-ST elevated myocardial infarction): Status: Acute Code(s): I21.4 - Non-ST elevation (NSTEMI) myocardial infarction (2) GERD (gastroesophageal reflux disease): Status: Acute Code(s): K21.9 - Gastro-esophageal reflux disease without esophagitis (3) Coronary artery disease: Status: Chronic Code(s): I25.10 - Atherosclerotic heart disease of [place] coronary artery without angina pectoris Qualifiers: Associated angina: with other forms of angina Coronary Disease- Associated Artery/Lesion type: [place] artery [place] vs. transplanted heart: [place] heart Qualified Code(s): I25.118 - Atherosclerotic heart disease of [place] coronary artery with other forms of angina pectoris (4) Hyperlipidemia: Status: Acute Code(s): E78.5 - Hyperlipidemia, unspecified Qualifiers: Hyperlipidemia type: unspecified Qualified Code(s): E78.5 - Hyperli pidemia, unspecified (5) Essential hypertension: Status: Acute Code(s): I10 - Essential (primary) hypertension (6) Class II obesity: Status: Acute Code(s): E66.812 - Obesity, class 2 Meds Home Medications and Allergies Home Medications ?Medication ?Instructions ?Recorded ?Confirmed ?Type cholecalciferol (vitamin D3) 25 25 mcg PO DAILY . 09/18/22 09/19/24 History mcg (1,000 unit) capsule furosemide 40 mg tablet (Lasix) 40 mg PO DAILY #90 tabs 12/02/23 09/19/24 Rx losartan 50 mg tablet 50 mg PO DAILY #90 tabs 12/02/23 09/19/24 Rx Bacillus coagulans-inulin 1 1 cap PO DAILY #100 caps 02/25/24 09/19/24 Rx billion cell-250 mg capsule (Probiotic Formula (inulin)) coenzyme Q10 100 mg capsule 100 mg PO DAILY 03/23/24 09/19/24 History (Q-Sorb Co Q-10) metoprolol succinate 25 mg 25 mg PO DAILY #90 tabs 03/23/24 09/19/24 Rx tablet,extended release 24 hr aspirin 81 mg tablet,delayed 81 mg PO DAILY #90 tabs 09/04/24 09/19/24 Rx release famotidine 40 mg tablet 40 mg PO BID #60 tabs 09/18/24 09/19/24 Rx lansoprazole 30 mg capsule,delayed 30 mg PO BID #30 caps 09/18/24 09/19/24 Rx release atorvastatin 80 mg tablet (Lipitor) 80 mg PO DAILY #90 tabs 09/19/24 09/19/24 Rx prasugrel HCl 10 mg tablet 10 mg PO DAILY 30 days #30 tabs 09/19/24 Rx (Effient) nicotine 21 mg/24 hr daily 1 patch transdermal DAILY #42 ea 09/20/24 Rx transdermal patch New Prescriptions to Start Prescriptions: prasugrel HCl [Effient] Tommy Andrade Allergies Allergy/AdvReac Type Severity Reaction Status Date / Time No Known Allergies Allergy Verified 09/19/24 10:29 Discharge Plan Disposition Patient Disposition: Home, Self-Care Condition: Fair Discharge Order Discharge Orders: Discharge Order (Routine); Ordered 09/20/24 Ordered By: Gio Corrales Follow up Plan Follow up with: Reyna Perez APRN [Primary Care Provider] - 09/26/24 11:00 am Tommy Andrade MD [Staff Physician] - 09/27/24 10:15 am Prescriptions/Medication Reconciliation: New prasugrel HCl [Effient] 10 mg Tablet 10 mg PO DAILY 30 Days Qty: 30 6RF Continued coenzyme Q10 [Q-Sorb Co Q-10] 100 mg capsule 100 mg PO DAILY Patient Comments: TAKE 1 CAPSULE BY MOUTH ONCE DAILY atorvastatin [Lipitor] 80 mg tablet 80 mg PO DAILY Qty: 90 1RF cholecalciferol (vitamin D3) 25 mcg (1,000 unit) capsule 25 mcg PO DAILY furosemide [Lasix] 40 mg tablet 40 mg PO DAILY Qty: 90 3RF losartan 50 mg tablet 50 mg PO DAILY Qty: 90 3RF lansoprazole 30 mg capsule,delayed release(DR/EC) 30 mg PO BID Qty: 30 0RF famotidine 40 mg tablet 40 mg PO BID Qty: 60 2RF Probiotic Formula (inulin) 1 billion-250 cell-mg capsule 1 cap PO DAILY Qty: 100 10RF metoprolol succinate 25 mg tablet extended release 24 hr 25 mg PO DAILY Qty: 90 3RF aspirin 81 mg tablet,delayed release (DR/EC) 81 mg PO DAILY Qty: 90 3RF No Action nicotine 21 mg/24 hr patch 24 hour 1 patch transdermal DAILY Qty: 42 0RF Other Ambulatory Orders: Basic Metabolic Panel (Routine) Timeframe: 20240927 Facility: [facility] - Location: Laboratory Ordered By: Tommy Andrade Complete Blood Count Auto Diff (Routine) Timeframe: 20240927 Facility: [facility] - Location: Laboratory Ordered By: Tommy Andrade Problem Reconciliation Problems Reviewed?: Yes Patient Discharge Instructions ACTIVITY: Continue current activity DIET: continue same diet Stand Alone Forms: [facility] Work Release Patient Instructions: Cardiac Catheterization, DI for Surgical Site Infection, DI for Moderate Sedation, Exercise-based Cardiac Rehabilitation May Decrease Risk of and Future Heart Procedures Print Language: [place] Providers Primary Care Provider: Reyna Perez Admit Provider: Gio Corrales Attending Provider: Gio Corrales
[2024-09-20 07:36] LABS: Direct LDL Cholesterol 65.97 mg/dL (100-129)
[2024-09-20 07:39] VITALS: BP 159/87; PULSE 73; RESP 18; TEMP 36.5; O2SAT 97
[2024-09-20 08:00] VITALS: PULSE 70
[2024-09-20] MEDS: METOPROLOL SUCCINATE XL 25MG TABLET 25 MG PO (08:22)
[2024-09-20] MEDS: PRASUGREL 10MG TAB 10 MG PO (08:22)
[2024-09-20] MEDS: IRBESARTAN 75MG TABLET 75 MG PO (08:22)
[2024-09-20] MEDS: ASPIRIN 81MG CHEWABLE TABLET 81 MG PO (08:22)
[2024-09-20] MEDS: PANTOPRAZOLE 40MG TABLET 40 MG PO (08:31)
--- NOTE | 2024-09-21 12:40 | CARE MANAGER ---
Patient returned missed call for follow up after hospital discharge. He states he feels very well. He has picked up his medications and is aware of his follow up appointments. He denies any questions or concerns.
== END 2024-09-20 08:39 | disposition home or self-care (01) | DRG 322 ==
LOC: CATHLAB 16:22 → 2ND 16:24
PROVIDERS: Internal Medicine; Nurse Practitioner Family; Admitting Provider Internal Medicine Adolescent Medicine; PCP Nurse Practitioner; Visit Provider Internal Medicine Adolescent Medicine
PROC: 4A023N7 Measurement of Cardiac Sampling and Pressure, Left Heart, Percutaneous Approach (ICD-10-PCS; CPT 93452; principal; 2024-09-19 11:30)
DX: I21.4 Non-ST elevation (NSTEMI) myocardial infarction (principal); K21.9 Gastro-esophageal reflux disease without esophagitis; F17.210 Nicotine dependence, cigarettes, uncomplicated; E78.5 Hyperlipidemia, unspecified; I25.10 Atherosclerotic heart disease of native coronary artery without angina pectoris; E66.9 Obesity, unspecified; Z80.9 Family history of malignant neoplasm, unspecified; Z83.3 Family history of diabetes mellitus; Z82.49 Family history of ischemic heart disease and other diseases of the circulatory system; Z68.36 Body mass index [BMI] 36.0-36.9, adult; Z79.82 Long term (current) use of aspirin; Z79.899 Other long term (current) drug therapy
CPT/HCPCS: 36415; 80048; 80061; 80076; 84484; 85025; 85347; 92928; 92941; 93452; 99152; C1725; C1760; C1769; C1874; C9600; C9606; G0378; J1200; J1644; J3010; Q9967

== ENCOUNTER 2024-11-09 03:42 | Observation (INO) | payer BC, SELFPAY ==
--- OUTSIDE RECORDS SUMMARY | 2024-10-10 14:00 | XMS_ITS | Encounter Summary ---
Author Organization [place] [address] Care Team Providers Care Spinning And Winding Supervisor Name Role Phone Unavailable Primary Care Provider Unavailabl e Encounter Details Date Type Department Care Team (Late st Contact Info) Description 10/10/2024 2:00 PM EDT Office Visit [facility] Cardiac Surgeons [address] [place] [address] Logan Kenny MD [address] [place], [place] [id number] ASHD (arteriosclerotic heart disease) (Primary Dx) Social History Tobacco Use Types Packs/Day Years Used Date Smoking Tobacco: Never Assessed Sex and Gender Information Value Date Recorded Sex Assigned at Not on file Legal Sex Male 8:24 PM EDT Gender Identity Not on file Sexual Orientation Not on file documented as of this encounter Last Filed Vital Signs Vital Sign Reading Time Taken Comments Blood Pressure 136/74 10/10/2024 1:55 PM EDT Pulse 73 10/10/2024 1:55 PM EDT Temperature - - Respiratory Rate - - Oxygen Saturation 97% 10/10/2024 1:55 PM EDT Inhaled Oxygen Concentration - - Weight 109 kg (240 lb 4 oz) 10/10/2024 1:55 PM E DT Height 172.7 cm (5' 8 ) 10/10/2024 1:55 PM EDT Body Mass Index 36.53 10/10/2024 1:55 PM EDT documented in this encounter Progress Notes * Logan Kenny MD - 10/11/2024 2:00 PM EDT Date: 10/11/2024 Cardio-Thoracic Surgery Outpatient Consult Note Name: Ernst Pugh : 1975 AGE: 49 y.o. Primary Care Physician: No primary care provider on file. Date of Consultation: 10/11/2024 Requesting Physician: [facility] Consulting Physician: LOGAN KENNY MD Reason for Consult: ASHD History of Presenting Illness: Ernst Pugh is a(n) 49 y.o. male with PMH tobacco abuse ashd who presents today for cardiac surgeryconsultation. Pt had NSTEMI in September. LHC showed ostial LAD 70% stenosis, circumflex (nondominant) with 60-70% stenosis, with 30-40% stenosis of first OM. Pt reports he had LHC and PCI on 09/27/24 (VIC x 1 to RCA) at [facility]. Pt was scheduled to have additional PCI to LAD and circ ho wever pt wanted a second opinion for possible CABG surgery. Pt had SOA prior to PCI which has no changed. SOA has been gradually worsening. Pt has a strong family history of heart disease. 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 ASSESSMENT: ASHD: MVD HLD: on statin Ventral hernia HTN: 136/74 today. tobacco abuse: current everyday smoker PLAN: CABG x 2 with QUINTIN clip on 10/30/24 Echo: pending CT Scan: needs CT chest Carotid studies: pending Vein Mapping: pending Blood Thinners: effient - hold for 1 week prior RYLAND/ARB: takes cozaar - needs to be held 48 hours prior to surgery Discussed with Ernst Pugh the risks, benefits and alternatives of the operation including bleeding, infection, stroke, arrhythmias such as atrial fibrillation, respiratory insufficiency, need for reoperation and even . The patient understood these and all other questions were answered. Indications are survival and symptom relief. Patient and/or family wish to proceed. EuroSCORE: The STS calculated risk score was discussed with the patient and family. STS RISK ASSESSMENT: Procedure Type: Isolated CABG Perioperative Outcome Estimate % Operative Mortality 0.521% Morbidity & Mortality 5.29% Stroke 0.334% Renal Failure 0.721% Reoperation 1.68% Prolonged Ventilation 3.25% Deep Sternal Wound Infection 0.221% Long Hospital Stay (>14 days) 1.52% Short Hospital Stay (<6 days)* 71.9% Clinical Summary Planned Surgery: Isolated CABG, Elective, First cardiovascular surgery Demographics: 49 year old, male, 109kg, 172.7cm, BMI: 36.6 kg/m?? Lab Values: Creatinine: 1.1 mg/dL, Hematocrit: 40.9%, WBC Count: 10.3 10??/?L, Platelet Count: 209637 cells/?L PreOp Medications: RYLAND Inhibitors/ARBs <= 48 hrs, ADP Inhibitors <= 5 days Substance Abuse: Current smoker Risk Factors / Comorbidities: Hypertension, Family Hx of CAD Pulmonary RF: Moderate CLD Coronary Artery Disease: Non-ST Elevation TX, TX: > 21 Days Prev. Cardiac Interv: Previous PCI: Not at this facility > 6 hours Current Outpatient Medications Medication Instructions aspirin 81 mg, DAILY atorvastatin (LIPITOR) 80 mg, DAILY Bacillus coagulans-inulin 1 billion-250 cell-mg Oral Capsule Take by mouth. cholecalciferol (vitamin D3) 1,000 Units, DAILY Coenzyme Q10 100 mg Oral Capsule Take by mouth. famotidine (PEPCID) 40 mg, 2 TIMES DAILY fUROsemide (LASIX) 40 mg, DAILY lansoprazole (PREVACID) 30 mg, 2 TIMES DAILY losartan (COZAAR) 50 mg, DAILY metoprolol succinate (TOPROL-XL) 25 mg, DAILY nicotine (NICODERM CQ) 21 mg/24 hr TD Patch 24 hr 1 Patch, DAILY prasugreL HCl (EFFIENT) 10 mg, DAILY prochlorperazine (COMPAZINE) 10 mg, EVERY 8 HOURS PRN Allergies: No Known Allergies REVIEW of SYSTEMS: No headache, no LOC, no fever, no chills, no cough, no nausea or vomiting or diarrhea, no burning micturation, no seizures, all other symptoms negative and reviewed by me. Past Medical History: No past medical history on file. Past Surgical History: No past surgical history on file. Family History includes: family history is not on file. Social History includes: Physical Examination Vital signs: Vitals: 10/10/24 1355 BP: 136/74 Pulse: 73 SpO2: 97% Vi Neck: nontender Respiratory/Chest/Lungs: clear to auscultation bilaterally CV/Heart: S1, S2 normal, no murmur, rub or gallop, regular rate and rhythm GI/Abdomen: soft, non-tender; bowel sounds normal; no masses, no organomegaly Musculaskeletal/Extremities: less then 2 second capillary refill Neuro: alert, oriented, normal speech, no focal findings or movement disorder noted Psych: Oriented to: Person, Place, and Time Skin : [place], warm, dry Imaging: The most recent cardiovascular imaging studies availabe in [facility] EMR were reviewed at time of consultation. CATH :No results found. ECHO :No results found. STRESS :No results found. NUCMED :No results found. Laboratory: No results found for: CREATININE , HCT , WBC , PLT No results found for: LABPROT , LABALBU No results found for: BILITOT No results found for: INR , PROTIME LOGAN KENNY MD was present for entirety of this visit and this note reflects his independent exam, assessment and plan. Note written by Hailey LINDQUIST who was acting as scribe for this visit. Logan Kenny MD 10/11/2024 7:47 AM documented in this encounter Plan of Treatment Upcoming Encounters Date Type Department Care Team (Latest Contact Info) Description 11/23/2024 12:45 PM EDT Appointment EDG PRE-ADMIT TESTING [facility] [place] [address] 12/01/2024 11:30 AM EDT Hospital Encounter [facility] [address] [place] [facility] Sadi Haney MD [address] [place] [address] [address] [place] [address] 12/01/2024 11:30 AM EDT Anesthesia Event [facility] [address] [place] [facility] Kathy Dong APRN [address] [facility] [address] 12/01/2024 11:30 AM EDT - 12/01/2024 4:42 PM EDT Surgery [facility] [address] 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 Coenzyme Q10 100 mg Oral Capsule Take by mouth daily. cholecalciferol, vitamin D3, 25 mcg (1,000 unit) Oral Tablet Take 1,000 Units by mouth daily. Bacillus coagulans-inulin 1 billion-250 cell-mg Oral Capsule Take by mouth daily. added in this encounter
--- OUTSIDE RECORDS SUMMARY | 2024-10-12 09:27 | XMS_ITS | Encounter Summary ---
Author Organization [place] [address] Care Team Providers Care Hat Renovator Name Role Phone Unavailable Primary Care Provider Unavailabl e Reason for Referral * MRI/CAT Scan (Urgent) - Closed Specialty Diagnoses / Procedures Referred By Contac t Referred To Contact Radiology Diagnoses Coronary artery disease involving [place] coronary artery of [place] heart with angina pectoris Procedures CT CHEST WO CONTRAST Logan Kenny MD [address] [place] [address] [place] [address] Phone: tel: fax: Referral ID Status Reason Start Date Expiration Date Visits Re quested Visits Authorized [id number] Closed 10/10/2024 10/10/2025 1 1 Reason for Visit * MRI/CAT Scan (Urgent) - Closed Specialty Diagnoses / Procedures Referred By Juan R acosta Referred To Contact Radiology Diagnoses Coronary artery disease involving [place] coronary artery of [place] heart with angina pectoris Procedures CT CHEST WO CONTRAST Logan Kenny MD [address] [place] [address] [place] [address] Phone: tel: fax: Referral ID Status Reason Start Date Expiration Date Visits Re quested Visits Authorized [id number] Closed 10/10/2024 10/10/2025 1 1 Encounter Details Date Type Department Care Team (Latest Contact Info) Description 10/12/2024 9:27 AM EDT - 10/12/2024 11:59 PM EDT Hospital Encounter [facility] [address] [place] [address] Logan Kenny MD [address] [place] [address] [place] [address] Coronary artery disease involving [place] coronary artery of [place] heart with angina pectoris Discharge Disposition: Home or Self Care Social History Tobacco Use Types Packs/Day Years Used Date Smoking Tobacco: Never Assessed Sex and Gender Information Value Date Recorded Sex Assigned at Not on file Legal Sex Male 8:24 PM EDT Gender Identity Not on file Sexual Orientation Not on file documented as of this encounter Medications at Time of Discharge aspirin 81 mg Oral Tablet, Delayed Release (E.C.) Take 81 mg by mouth daily. 09/04/2024 atorvastatin (LIPITOR) 80 mg Oral Tablet Take 80 mg by mouth daily. 09/19/2024 Bacillus coagulans-inulin 1 billion-250 cell-mg Oral Capsule Take by mouth daily. cholecalciferol, vitamin D3, 25 mcg (1,000 unit) Oral Tablet Take 1,000 Units by mouth daily. Coenzyme Q10 100 mg Oral Capsule Take by mouth daily. famotidine (PEPCID) 40 mg Oral Tablet Take 40 mg by mouth 2 times daily. 09/18/2024 fUROsemide (LASIX) 40 mg Oral Tablet Take 40 mg by mouth daily. 09/22/2024 lansoprazole (PREVACID) 30 mg Oral Capsule, Delayed Release(E.C.) Take 30 mg by mouth 2 times daily. 09/18/2024 losartan (COZAAR) 50 mg Oral Tablet Take 50 mg by mouth daily. 10/05/2024 metoprolol succinate (TOPROL-XL) 25 mg Oral Tablet Sustained Release 24 hr Take 25 mg by mouth daily. 07/11/2024 nicotine (NICODERM CQ) 21 mg/24 hr TD Patch [address] 1 Patch onto the skin daily. 09/20/2024 prasugreL HCl (EFFIENT) 10 mg Oral Tablet Take 10 mg by mouth daily. 09/19/2024 prochlorperazine (COMPAZINE) 10 mg Oral Tablet Take 10 mg by mouth every 8 hours as needed for Nausea. 09/26/2024 documented as of this encounter Discharge Disposition Disposition Code Departure Means Destination Home or Self Care documented in this encounter Plan of Treatment Upcoming Encounters Date Type Department Care Team (Latest Contact Info) Description 11/23/2024 12:45 PM EDT Appointment EDG PRE-ADMIT TESTING [facility] [place] [address] 12/01/2024 11:30 AM EDT Hospital Encounter [facility] [address] [place] [address] Sadi Haney MD [address] [facility] [address] [place] [address] 12/01/2024 11:30 AM EDT Anesthesia Event [facility] [address] [place] [address] Kathy Dong, [employer] EXTRACTOR [address] [facility] [address] [place] [address] 12/01/2024 11:30 AM EDT - 12/01/2024 4:42 PM EDT Surgery [facility] [address] 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 No acute process within the chest. 2. Moderate coronary artery calcification. 3. Suspect severe left hydronephrosis, incompletely assessed. Borderline left perinephric lymph nodes. Recommend dedicated CT of the abdomen and pelvis with IV contrast to further evaluate. CODE PIEDAD: Results will be conveyed to the patient's care team by Radiology personnel as soon as possible following completion of this dictation. Note: Radiology results need to be interpreted within a comprehensive clinical context. If you have questions about the radiology report, please contact the office of the ordering clinician. Narrative 10/12/2024 10:[address] CHEST WITHOUT CONTRAST, 10/12/2024 9:31 AM CLINICAL HISTORY: I25.119-Atherosclerotic heart disease of [place] coronary artery with unspecified angina [id number] COMPARISON: None. PROCEDURE COMMENTS: Multi-detector CT of the chest with multiplanar reconstructions per protocol. No contrast given. FINDINGS: Cardiac chambers are normal size. There is no pericardial effusion. Moderate coronary artery calcification. The thoracic aorta is normal caliber. No calcified atherosclerotic plaque. Minimal calcifications in the aortic annulus. There is no mediastinal mass or adenopathy identified within the chest. Limited evaluation of the upper abdomen demonstrates abnormality of the left kidney, with suspect severe left hydronephrosis. There is a borderline enlarged 10 mm left perinephric lymph node medial to the left kidney. No airspace consolidation, pleural effusion, or pneumothorax. The central tracheobronchial tree is patent without endobronchial lesion. There is no acute or destructive osseous abnormality. Procedure Note Jesse Barrera MD - 10/12/2024 CT CHEST WITHOUT CONTRAST, 10/12/2024 9:31 AM CLINICAL HISTORY: I25.119-Atherosclerotic heart disease of nativecoronary artery with unspecified angina [id number] COMPARISON: None. PROCEDURE COMMENTS: Multi-detector CT of the chest with multiplanar reconstructions per protocol. No contrast given. FINDINGS: Cardiac chambers are normal size. There is no pericardialeffusion. Moderate coronary artery calcification. The thoracic aorta is normalcaliber. No calcified atherosclerotic plaque. Minimal calcifications in the aorticannulus. There is no mediastinal mass or adenopathy identified within the chest. Limited evaluation of the upper abdomen demonstrates abnormality of theleft kidney, with suspect severe left hydronephrosis. There is a borderlineenlarged 10 mm left perinephric lymph node medial to the left kidney. No airspace consolidation, pleural effusion, or pneumothorax. Thecentral tracheobronchial tree is patent without endobronchial lesion. There is no acute or destructive osseous abnormality. IMPRESSION: 1. No acute process within the chest. 2. Moderate coronary artery calcification. 3. Suspect severe left hydronephrosis, incompletely assessed. Borderlineleft perinephric lymph nodes. Recommend dedicated CT of the abdomen and pelviswith IV contrast to further evaluate. CODE PIEDAD: Results will be conveyed to the patient's care team byRadiology personnel as soon as possible following completion of this dictation. Note: Radiology results need to be interpreted within a comprehensiveclinical context. If you have questions about the radiology report, please contactthe office of the ordering clinician. us Logan Kenny MD IMG CT ORDERABLES Final Resu lt documented in this encounter Visit Diagnoses Diagnosis Coronary artery disease involving [place] coronary artery of [place] heart with angina pectoris Ureteral mass Unspecified disorder of kidney and ureter documented in this encounter
--- OUTSIDE RECORDS SUMMARY | 2024-10-19 07:44 | XMS_ITS | Encounter Summary ---
Author Organization [facility] [place] [address] Care Team Providers Care Senior Sustainability Consultant Name Role Phone Unavailable Primary Care Provider Unavailabl e Reason for Referral * Vascular Imaging (Urgent) - Closed Specialty Diagnoses / Procedures Referred By Juan R acosta Referred To Contact Radiology Diagnoses Bruit Procedures [facility] CAROTID DUPLEX BILATERAL Logan Kenny MD [address] [place] [address] [place] [address] Phone: tel: fax: Referral ID Status Reason Start Date Expiration Date Visits Re quested Visits Authorized [id number] Closed 10/10/2024 10/10/2026 1 1 Reason for Visit * Vascular Imaging (Urgent) - Closed Specialty Diagnoses / Procedures Referred By Juan R acosta Referred To Contact Radiology Diagnoses Bruit Procedures [facility] CAROTID DUPLEX BILATERAL Logan Kenny MD [address] [place] [address] [place] [address] Phone: tel: fax: Referral ID Status Reason Start Date Expiration Date Visits Re quested Visits Authorized [id number] Closed 10/10/2024 10/10/2026 1 1 Encounter Details Date Type Department Care Team (Latest Contact Info) Description 10/19/2024 7:44 AM EDT - 10/19/2024 10:02 AM EDT Hospital Encounter [facility] [address] [place] [address] Logan Kenny MD [address] [place] [address] [place] [address] Bruit Discharge Disposition: Home or Self Care Social History Tobacco Use Types Packs/Day Years Used Date Smoking Tobacco: Every Day Cigarettes 1 35.5 Started: 1990 Smokeless Tobacco: Never Alcohol Use Standard Drinks/Week Comments Not Currently 0 (1 standard drink = 0.6 oz pur e alcohol) Sexually Active Control Partners Comments Yes Sex and Gender Information Value Date Recorded [...] Take 40 mg by mouth daily. 09/22/2024 HYDROcodone-acet aminophen (NORCO) 5-325 mg Oral Tablet Take 1 Tablet by mouth every 6 hours as needed for Acute Pain > 3 Days Medically Necessary (R52) or Acute Pain (R52). 12 Tablet 10/27/2024 lansoprazole (PREVACID) 30 mg Oral Capsule, Delayed [...] PM EDT Appointment EDG PRE-ADMIT TESTING [facility] [place] [address] 12/01/2024 11:30 AM EDT Hospital Encounter [facility] [address] [place] [facility] Sadi Haney MD [address] [place] [address] [address] [place] [address] 12/01/2024 11:30 AM EDT Anesthesia Event [facility] [address] [place] [address] Kathy Dong APRN [address] [facility] [place] [address] 12/01/2024 11:30 AM EDT - 12/01/2024 4:42 PM EDT Surgery [facility] [address] [place] [address] Sadi Haney MD [address] [place] [address] [place] [address] DAVINCI ROBOTIC RADICAL NEPHRECTOMY Scheduled Procedures Name Priority Associated Diagnoses Date/Ti hi DAVINCI ROBOTIC RADICAL NEPHRECTOMY Ureteral mass 12/01/2024 11:30 AM EDT CYSTOSCOPY TRANSURETHRAL RESECTION BLADDER TUMOR - FULGURATION/EVACUATION OF CLOT Ureteral mass 12/01/2024 11:30 AM EDT documented as of this encounter Procedures Procedure Name Priority Date/Time Associated Diagnosis Comments [place] US CAROTID DUPLEX BILATERAL PIEDAD 10/19/2024 9:20 AM EDT Bruit documented in this encounter Results * [facility] CAROTID DUPLEX BILATERAL (10/19/2024 9:20 AM EDT) Anatomical Region Laterality Modality Vascular, Head, Neck Vascular Im aging 10/19/2024 8:09 AM EDT Impressions 10/19/2024 2:26 PM EDT Conclusions * There is a right proximal internal carotid artery mildly obstructive lesion noted, with an estimated 1-39% stenosis. * There is a left proximal internal carotid artery moderately obstructive lesion noted, with an estimated 40-59% stenosis. * Antegrade flow visualized in the bilateral vertebral arteries. Narrative Procedure Note Josafat Barnhart, DO - 10/19/2024 IMPRESSION Conclusions * There is a right proximal internal carotid artery mildly obstructive lesion noted, with an estimated 1-39% stenosis. * There is a left proximal internal carotid artery moderatelyobstructive lesion noted, with an estimated 40-59% stenosis. * Antegrade flow visualized in the bilateral vertebral arteries. us Logan Kenny MD IMG VASCULAR ORDERABLES Nadiya magdalena Result documented in this encounter Visit Diagnoses Diagnosis Bruit Other symptoms involving cardiovascular system Ureteral mass Unspecified disorder of kidney and ureter documented in this encounter
--- OUTSIDE RECORDS SUMMARY | 2024-10-19 07:44 | XMS_ITS | Encounter Summary ---
Author Organization [place] [address] Care Team Providers Care Receiving Dock Checker Name Role Phone Unavailable Primary Care Provider Unavailabl e Reason for Referral * Vascular Imaging (Urgent) - Closed Specialty Diagnoses / Procedures Referred By Juan R acosta Referred To Contact Radiology Diagnoses Leg swelling Procedures [facility] LOWER EXTREMITY BILATERAL MAPPING Logan Kenny MD [address] [place] [address] [place] [address] Phone: tel: fax: Referral ID Status Reason Start Date Expiration Date Visits Re quested Visits Authorized [id number] Closed 10/10/2024 10/10/2026 1 1 Reason for Visit * Vascular Imaging (Urgent) - Closed Specialty Diagnoses / Procedures Referred By Juan R acosta Referred To Contact Radiology Diagnoses Leg swelling Procedures [facility] EXTREMITY BILATERAL MAPPING Logan Kenny MD [address] [place] [address] [place] [address] Phone: tel: fax: Referral ID Status Reason Start Date Expiration Date Visits Re quested Visits Authorized [id number] Closed 10/10/2024 10/10/2026 1 1 Encounter Details Date Type Department Care Team (Latest Contact Info) Description 10/19/2024 7:44 AM EDT - 10/19/2024 10:02 AM EDT Hospital Encounter [facility] [address] [place] [address] Logan Kenny MD [address] [place] [address] [place] [address] Leg swelling Discharge Disposition: Home or Self Care Social [...] PM EDT Appointment EDG PRE-ADMIT TESTING [facility] [place] [address] 12/01/2024 11:30 AM EDT Hospital Encounter [facility] [address] [place] [facility] Sadi Haney MD [address] [place] [address] [place] [address] 12/01/2024 11:30 AM EDT Anesthesia Event [facility] [address] [place] [address] Kathy Dong, DEMETRIUS [facility] [place] [address] 12/01/2024 11:30 AM EDT - 12/01/2024 4:42 PM EDT Surgery [facility] [address] 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 There is no evidence of superficial vein thrombosis in the bilateral lower extremities. 2. The bilateral greater saphenous veins have been measured in zones 1 through 8. 3. The bilateral small saphenous veins have been measured in zones 5 through 8. Narrative Procedure Note Josafat Barnhart, DO - 10/19/2024 IMPRESSION Conclusions 1. There is no evidence of superficial vein thrombosis in thebilateral lower extremities. 2. The bilateral greater saphenous veins have been measured in zones 1 through 8. 3. The bilateral small saphenous veins have been measured in zones 5through 8. us Logan Kenny MD IMG VASCULAR ORDERABLES Nadiya nichols Result documented in this encounter Visit Diagnoses Diagnosis Leg swelling Swelling of limb Ureteral mass Unspecified disorder of kidney and ureter documented in this encounter
--- OUTSIDE RECORDS SUMMARY | 2024-10-19 10:03 | XMS_ITS | Encounter Summary ---
Author Organization [place] [address] Care Team Providers Care Drapery Supervisor Name Role Phone Unavailable Primary Care Provider Unavailabl e Reason for Visit * MRI/CAT Scan (Emergency) - Closed Specialty Diagnoses / Procedures Referred By Contac t Referred To Contact Radiology Diagnoses Hydronephrosis, unspecified hydronephrosis type Procedures CT ABDOMEN PELVIS WO ORAL WITH IV CONTRAST CT ABDOMEN PELVIS W CONTRAST Logan Kenny MD [address] [place] [address] [place] [address] Phone: tel: fax: Referral ID Status Reason Start Date Expiration Date Visits Re quested Visits Authorized [id number] Closed 10/12/2024 10/12/2025 1 1 Encounter Details Date Type Department Care Team (Latest Contact Info) Description 10/19/2024 10:03 AM EDT - 10/19/2024 11:59 PM EDT Hospital En[facility] [address] [place] [address] Logan Kenny MD [address] [place] [address] [place] [address] Hydronephrosis, unspecified hydronephrosis type Discharge [...] 12:45 PM EDT Appointment EDG PRE-ADMIT TESTING [facility] [place] [address] 12/01/2024 11:30 AM EDT Hospital Encounter [facility] [address] [place] [address] Sadi Haney MD [address] [place] [address] 12/01/2024 11:30 AM EDT Anesthesia Event [facility] [address] [place] [address] Kathy Dong, BAIL BONDSMAN [address] [facility] [address] [place], [place] [id number] 12/01/2024 11:30 AM EDT - 12/01/2024 4:42 PM EDT Surgery [facility] [address] [place] [address] Sadi Haney MD [address] [facility] [address] [place] [address] [facility] ROBOTIC RADICAL NEPHRECTOMY Scheduled Procedures Name Priority Associated Diagnoses Date/Ti me [facility]INCI ROBOTIC RADICAL NEPHRECTOMY Ureteral mass 12/01/2024 [...] (FAST), 10/19/2024 10:40 AM CLINICAL HISTORY: N13.30-Unspecified [id number]. COMPARISON: None. PROCEDURE COMMENTS: Multi-detector CT scanning of the abdomen and pelvis with multiplanar reformatting per expedited protocol. Isovue 370 IV contrast given as recorded in EPIC. Dose 1 : CT DLP Total : 888.4 mGycm DLP Spiral Max : 888.4 mGycm Maximum CTDI Vol : 18.3 mGy SSDE : 17.934 mGy SSDE Diameter : 36.1 cm SSDE Source : [employer] FINDINGS: The lung bases are unremarkable. No [...] (FAST), 10/19/2024 10:40 AM CLINICAL HISTORY: N13.30-Unspecified [id number]. COMPARISON: None. PROCEDURE COMMENTS: Multi-detector CT scanning [...] please contactthe office of the ordering clinician. Logan Kenny MD IMG CT ORDERABLES Final Resu lt * CREATININE ISTAT (10/19/2024 10:35 AM EDT) Creatinine-iSTA T 1.2 0.6 - 1.3 mg/dL 10/19/2024 10:[address] [facility] Blood BLOOD SPECIMEN / Unknown 10/19/2024 10:35 AM EDT 10/19/2024 10:39 AM EDT Logan Kenny MD POINT OF CARE TEST ORDERABLE S Final Result [address] [phone] documented in this encounter Visit Diagnoses Diagnosis Hydronephrosis, unspecified hydronephrosis type Ureteral mass Unspecified disorder of kidney and ureter documented in this encounter Administered Medications Inactive [...]
--- OUTSIDE RECORDS SUMMARY | 2024-10-19 15:00 | XMS_ITS | Encounter Summary ---
Author Organization [employer] [place] [address] Care Team Providers Care Remote Broadcast Technician Name Role Phone Unavailable Primary Care Provider Unavailabl e Reason for Referral * (Routine) - Pending Review Specialty Diagnoses / Procedures Referred By Juan R t Referred To Contact Diagnoses Ureteral mass Procedures AMB URO SURGERY COMM ORDER AMB URO SURGERY COMM ORDER Patricia Ellison MD [address] [place] [address] Phone: tel: fax: Referral ID Status Reason Start Date Expiration Date V isits Requested Visits Authorized [id number] Pending Review 10/19/2024 10/19/2025 1 1 Reason for Visit * Reason Comments Kidney Problem kidney mass Encounter Details Date Type Department Care Team (Late st Contact Info) Description 10/19/2024 3:00 PM EDT Office Visit [facility] NPT[facility] [address] [place] [phone] Patricia Ellison MD [address] [place] [address] Ureteral mass (Primary Dx) Social History Tobacco Use Types Packs/Day Years Used Date Smoking Tobacco: Every Day Cigarettes 1 35.5 Started: 1989 Smokeless Tobacco: Never Tobacco Cessation:Ready to Q uit: Not Asked; Counseling Given: Not Answered Alcohol Use Standard Drinks/Week Comments Not Currently [...] Sign Reading Time Taken Comments Blood Pressure 138/78 10/19/2024 2:37 PM EDT Pulse 68 10/19/2024 2:37 PM EDT Temperature 36.6 C (97.8 F) 10/19/2024 2:37 PM EDT Respiratory Rate - - Oxygen Saturation 94% 10/19/2024 2:37 PM EDT Inhaled Oxygen Concentration - - Weight 109.9 kg (242 lb 4.6 oz) 10/19/2024 2:37 PM EDT Height - - Body Mass Index 36.84 10/10/2024 1:55 PM EDT documented in this encounter Progress Notes * Patricia Ellison MD - 10/19/2024 3:00 PM EDT Images from the original note were not included. [facility] Urology [facility] E& Ernst Pugh 1975 Assessment/Orders: rEnst was seen today for kidney problem. Diagnoses and all orders for this visit: Ureteral mass - NON-MEAL GRINDER TENDER CYTOLOGY REQUEST; Future - Cancel: AMB URO SURGERY COMM ORDER - AMB URO SURGERY COMM ORDER - SURGICAL/PROCEDURE CASE REQUEST Other orders - SEP URINALYSIS POC PLAN: 1. Ureteral mass (Primary) - NON-MEAL GRINDER TENDER CYTOLOGY REQUEST; Future - AMB URO SURGERY COMM ORDER - SURGICAL/PROCEDURE CASE REQUEST - NON-MEAL GRINDER TENDER CYTOLOGY REQUEST Will send urine for cytology OR for ureteral biopsy - discussed procedure today in detail discussed possibility of needing a nephroureterectomy pending pathology; this will require some coordination with cardiology if he is to have a CABG. Return: No follow-ups on file. Chief Complaint(s): Chief Complaint Patient presents with Kidney Problem kidney mass HPI: 49 y.o. male referred for evaluation and management of ureteral mass and left hydronephrosis. Incidentally found when he presented with NSTEMI in September and had VIC to RCA (OSH). Planning to have additional PCI vs CABG and sent to [facility] for further evaluation. On eval found to have ureteral mass/hydro. -Planned for CABG on 10/30/2024 Left Hydronephrosis/Ureteral mass -patient with no prior imaging on file; was found to have severe left hydronephrosis and UPJ/ureteral mass -Cr 1.2 -current smoker, 1ppd for 35 years Results for orders placed or performed in visit on 10/19/24 SEP URINALYSIS POC Result Value Ref Range UA Color POC Yellow Color UA Appear POC Clear Clear UA Gluc POC Negative Negative mg/dL UA Bili POC Negative Negative UA Ketones POC Negative Negative mg/dL UA SG POC 1.010 1.001 - 1.035 no units UA Blood POC Trace-Lysed (A) Negative UA pH POC 5.5 5.0 - 8.0 pH UA Protein POC Negative Negative mg/dL UA Urobilinogen POC 0.2 0.2, 1.0 UA Nitrite POC Negative Negative UA Leuk Est POC Negative Negative Past Medical History: Past Medical History: Diagnosis Date CAD (coronary artery disease) History reviewed. No pertinent surgical history. Current Outpatient Medications Medication Sig Dispense Refill aspirin 81 mg Oral Tablet, Delayed Release (E.C.) Take 81 mg by mouth daily. atorvastatin (LIPITOR) 80 mg Oral Tablet Take 80 mg by mouth daily. Bacillus coagulans-inulin 1 billion-250 cell-mg Oral Capsule Take by mouth. cholecalciferol, vitamin D3, 25 mcg (1,000 unit) Oral Tablet Take 1,000 Units by mouth daily. Coenzyme Q10 100 mg Oral Capsule Take by mouth. famotidine (PEPCID) 40 mg Oral Tablet Take 40 mg by mouth 2 times daily. fUROsemide (LASIX) 40 mg Oral Tablet Take 40 mg by mouth daily. lansoprazole (PREVACID) 30 mg Oral Capsule, Delayed Release(E.C.) Take 30 mg by mouth 2 times daily. losartan (COZAAR) 50 mg Oral Tablet Take 50 mg by mouth daily. metoprolol succinate (TOPROL-XL) 25 mg Oral Tablet Sustained Release 24 hr Take 25 mg by mouth daily. nicotine (NICODERM CQ) 21 mg/24 hr TD Patch [address] 1 Patch onto the skin daily. prasugreL HCl (EFFIENT) 10 mg Oral Tablet Take 10 mg by mouth daily. prochlorperazine (COMPAZINE) 10 mg Oral Tablet Take 10 mg by mouth every 8 hours as needed for Nausea. No current facility-administered medications for this visit. No Known Allergies Family History: History reviewed. No pertinent family history. Social History: Social History Socioeconomic History Marital status: Spouse name: None Number of children: None Years of education: None Highest education level: None Tobacco Use Smoking status: Every Day Current packs/day: 1.00 Average packs/day: 1 pack/day for 35.4 years (35.4 ttl pk-yrs) Types: Cigarettes Start date: 1989 Smokeless tobacco: Never Vaping Use Vaping status: Never Used Substance and Sexual Activity Alcohol use: Not Currently Drug use: Not Currently Sexual activity: Yes ROS All other systems reviewed and negative except as stated in HPI PHYSICAL EXAM: Constitutional: Vitals Signs: BP 138/78 (BP Location: Left arm, Patient Position: Sitting) Pulse 68 Temp 97.8 ??F (36.6 ??C) Wt 242 lb 4.6 oz (109.9 kg) SpO2 94% BMI 36.84 kg/m?? Appearance: No acute distress, comfortable at rest Mood & Affect: Anxiety No Depressed No Agitated No Skin: No cyanosis, jaundice or pallor Neck & Thyroid: Neck: Symmetric Yes Swelling No Tender No Thyroid: Not enlarged Respiratory: Clear to air entry bilaterally Cardiac: Regular rate and rhythm, heart sounds normal Lymphatic: Neck: No Abnormalities Groin: No Abnormalities Muskuloskeletal: Digits & Nails: Digits Normal Nails Normal Gait & Station: Gait Normal Station Normal ENT: External: Ears Normal Nose Normal Mouth Normal Hearing: Good hearing at 3 feet Data: Results for orders placed or performed in visit on 10/19/24 SEP URINALYSIS POC Result Value Ref Range UA Color POC Yellow Color UA Appear POC Clear Clear UA Gluc POC Negative Negative mg/dL UA Bili POC Negative Negative UA Ketones POC Negative Negative mg/dL UA SG POC 1.010 1.001 - 1.035 no units UA Blood POC Trace-Lysed (A) Negative UA pH POC 5.5 5.0 - 8.0 pH UA Protein POC Negative Negative mg/dL UA Urobilinogen POC 0.2 0.2, 1.0 UA Nitrite POC Negative Negative UA Leuk Est POC Negative Negative Labs: Lab results were reviewed in [facility] and pertinent positives are: No results found for: PSA Lab Results Component Value Date CREATININE 1.2 10/19/2024 Imaging: Imaging studies (both written report and images on file) were reviewed in [facility] and pertinent positives are: No results found for this or any previous visit. No results found for this or any previous visit. No results found for this or any previous visit. No results found for this or any previous visit. No results found for this or any previous visit. Existing Medical Record: Progress Notes, Consults and miscellaneous records were reviewed in [facility] and pertinent positives are: see synopsis Outside paper records reviewed if applicable Patricia Ellison MD [facility] 10/19/2024 4:32 PM documented in this encounter Miscellaneous Notes * Patient Instructions - Patricia Ellison MD - 10/19/2024 3:00 PM EDT You have a ureteral mass in the left kidney. You need a biopsy of the left ureter (tube connecting your kidney and bladder). Once we get the biopsy, we will know if the kidney needs to be taken out or not. We will coordinate with all of your doctors. documented in this encounter Plan of Treatment Upcoming Encounters Date Type Department Care Team (Latest Contact Info) Description 11/23/2024 12:45 PM EDT Appointment EDG PRE-ADMIT TESTING [facility] [place] [id number] 12/01/2024 11:30 AM EDT Hospital Encounter [facility] [address] [place] [address] Sadi Haney MD [address] [facility] [address] [place], [place] [address] 12/01/2024 11:30 AM EDT Anesthesia Event [facility] [address] [place] [address] Kathy Dong APRN [address] [facility] [place] [address] 12/01/2024 11:30 AM EDT - 12/01/2024 4:42 PM EDT Surgery [facility] [address] [place] [address] Sadi Haney MD [address] [facility] [address] [place] [address] [facility] ROBOTIC RADICAL NEPHRECTOMY Scheduled Orders Name Type Priority Associated Diagnoses Orde r Schedule SURGICAL/PROCEDURE CASE REQUEST Procedures Routine Ureteral mass Ordered: 10/19/2024 Scheduled Procedures Name Priority Associated Diagnoses Date/Ti me DAVINCI ROBOTIC RADICAL NEPHRECTOMY Ureteral mass 12/01/2024 11:30 AM EDT CYSTOSCOPY TRANSURETHRAL RESECTION BLADDER TUMOR - FULGURATION/EVACUATION OF CLOT Ureteral mass 12/01/2024 11:30 AM EDT documented as of this encounter Procedures Procedure Name Priority Date/Time Associated Diagnosis Comments NON-MEAL GRINDER TENDER CYTOLOGY REQUEST Routine 10/19/2024 3:31 PM EDT Ureteral mass SEP URINALYSIS POC Routine 10/19/2024 2: 29 PM EDT Ureteral mass documented in this encounter Results * NON-MEAL GRINDER TENDER CYTOLOGY REQUEST (10/19/2024 3:31 PM EDT) CASE REPORT Non-gynecologi c Cytology Case: [id number] Authorizing Provider: Patricia Ellison MD Collected: 10/19/2024 1531 [place] [facility] [place] Received: 10/19/2024 1531 Pathologist: Jerome Hickman MD Specimen: Urine, Clean Catch 10/20/2024 12:24 PM EDT [facility] NON-MEAL GRINDER TENDER CYTOLOGY FINAL DIAGNOSIS Urine, Voided: - Negative for high grade urothelial carcinoma - Reactive urothelial cells, red blood cells, neutrophils, and crystals. 10/20/2024 12:24 PM EDT [facility] at 1224 EDT EMBEDDED IMAGES 10/20/2024 12:24 PM EDT [facility] MICROSCOPIC DESCRIPTION Microscopic examination is performed and the findings corroborate the diagnosis. 10/20/2024 12:24 PM EDT [facility] Gross Description Urine, Rec'd 70ml of yellow fluid. (TP) Gross description has been reviewed by screening drink box mechanic. 10/20/2024 12:24 PM EDT [facility] Urine STRUCTURE OF URINARY TRACT PROPER / Unknown 10/19/2024 3:31 PM EDT 10/19/2024 3:31 PM EDT us Patricia Ellison MD CYTOLOGY ORDERABLES Final Re sult [facility] [address] [id number] * (ABNORMAL) SEP URINALYSIS POC (10/19/2024 2:29 PM EDT) UA Color POC Yellow Color 10/19/2024 2:31 PM EDT [facility] UA Appear POC Clear Clear 10/19/2024 2:31 PM EDT [facility] UA Gluc POC Negative Negative mg/dL 10/19/2024 2:31 PM EDT [facility] UA Bili POC Negative Negative 10/19/2024 2:31 PM EDT [facility] [place] UA Ketones POC Negative Negative mg/dL 10/19/2024 2:31 PM EDT [facility] [place] UA SG POC 1.010 1.001 - 1.035 no units 10/19/2024 2:31 PM EDT [facility] [place] UA Blood POC Trace-Lysed( A) Negative 10/19/2024 2:31 PM EDT [facility] UA pH POC 5.5 5.0 - 8.0 pH 10/19/2024 2:31 PM EDT [facility] [place] UA Protein POC Negative Negative mg/dL 10/19/2024 2:31 PM EDT [facility] [place] UA Urobilinogen POC 0.2 0.2, 1.0 10/19/2024 2:31 PM EDT [facility] [place] UA Nitrite POC Negative Negative 10/19/2024 2:31 PM EDT [facility] UA Leuk Est POC Negative Negative 2:31 PM EDT [facility] ARI[facility] TAVAREZ Urine STRUCTURE OF URINARY TRACT PROPER / Unknown 10/19/2024 2:29 PM EDT 10/19/2024 2:31 PM EDT Patricia Ellison MD POINT OF CARE TEST ORDERABLE S Final Result Performing Organization Address City/State/[facility] Co de Phone Number [facility] [address] [place] [address] documented in this encounter Visit Diagnoses Diagnosis Ureteral mass- Primary Unspecified disorder of kidney and ureter Ureteral mass Unspecified disorder of kidney and ureter documented in this encounter Orders Nursing Count Last Ordered Date First Orde red Date AMB URO SURGERY COMM ORDER 1 10/19/2024 documented in this encounter
--- OUTSIDE RECORDS SUMMARY | 2024-10-20 06:50 | XMS_ITS | Encounter Summary ---
Author Organization [place] [address] Care Team Providers Care Ecology Teacher Name Role Phone Unavailable Primary Care Provider Unavailabl e Reason for Referral * Echo (Urgent) - Closed Specialty Diagnoses / Procedures Referred By Contac t Referred To Contact Radiology Diagnoses SOB (shortness of breath) Procedures EC ECHOCARDIOGRAM COMPLETE W DOPPLER AND COLOR FLOW MAPPING Logan Kenny MD [address] [place] [address] [place] [address] Phone: tel: fax: Referral ID Status Reason Start Date Expiration Date Visits Re quested Visits Authorized [id number] Closed 10/10/2024 10/10/2026 1 1 Reason for Visit * Echo (Urgent) - Closed Specialty Diagnoses / Procedures Referred By Conttabitha t Referred To Contact Radiology Diagnoses SOB (shortness of breath) Procedures EC ECHOCARDIOGRAM COMPLETE W DOPPLER AND COLOR FLOW MAPPING Logan Kenny MD [address] [place] [address] Phone: tel: fax: Referral ID Status Reason Start Date Expiration Date Visits Re quested Visits Authorized [id number] Closed 10/10/2024 10/10/2026 1 1 Encounter Details Date Type Department Care Team (Latest Contact Info) Description 10/20/2024 6:50 AM EDT - 10/20/2024 11:59 PM EDT Hospital Encounter [facility] [address] [place] [address] [address] [place] [address] Logan Kenny MD [address] [place] [address] SOB (shortness of breath) Discharge Disposition: Home [...] PM EDT Appointment EDG PRE-ADMIT TESTING One [facility] [place] [address] 12/01/2024 11:30 AM EDT Hospital Encounter [facility] [address] [place] [address] Sadi Haney MD [address] [place] [address] [place] [address] 12/01/2024 11:30 AM EDT Anesthesia Event [facility] [address] [place] [address] Kathy Dong APRN [address] [facility] [place] [address] 12/01/2024 11:30 AM EDT - 12/01/2024 4:42 PM EDT Surgery [facility] [address] [place] [address] Sadi Haney MD [address] [place] [address] [place] [address] DAVINCI ROBOTIC RADICAL NEPHRECTOMY Scheduled Procedures Name Priority Associated Diagnoses Date/Ti nv DAVINCI ROBOTIC RADICAL NEPHRECTOMY Ureteral mass 12/01/2024 [...] SOB (shortness of breath) Shortness of breath Ureteral mass Unspecified disorder of kidney and ureter documented in this encounter
--- OUTSIDE RECORDS SUMMARY | 2024-10-24 09:00 | XMS_ITS | Encounter Summary ---
Author Organization [place] [address] Care Team Providers Care Electrician Helper Powerhouse Name Role Phone Reyna Perez DEMETRIUS Primary Care Provider [phone] Encounter Details Date Type Department Care Team (Late st Contact Info) Description 10/24/2024 9:00 AM EDT Telemedicine [facility] Cardiac Surgeons [address] [place] [address] Logan Kenny MD [address] [place], [place] [id number] ASHD (arteriosclerotic heart disease) (Primary Dx); Ureteral mass Social History Tobacco Use Types Packs/Day Years [...] on file documented as of this encounter H&P Notes * Logan Kenny MD - 10/24/2024 9:00 AM EDT I had a discussion with him, his and Urology. Postponing the surgery until clearer path from urologic malignancy. documented in this encounter Plan of Treatment Upcoming Encounters Date Type Department Care Team (Latest Contact Info) Description 11/23/2024 12:45 PM EDT Appointment EDG PRE-ADMIT TESTING [facility] [place] [address] 12/01/2024 11:30 AM EDT Hospital Encounter [facility] [address] [place] [address] Sadi Haney MD [address] [facility] [address] [place] [address] 12/01/2024 11:30 AM EDT Anesthesia Event [facility] [address] [place] [address] Kathy Dong, GOLF COURSE DESIGNER 1 [facility] [place] [address] 12/01/2024 11:30 AM EDT - 12/01/2024 4:42 PM EDT Surgery [facility] [address] 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 Ureteral mass 12/01/2024 11:30 AM EDT documented as of this encounter Visit Diagnoses Diagnosis ASHD (arteriosclerotic heart disease)- Primary Coronary atherosclerosis of unspecified type of vessel, salamatof or graft Ureteral mass Unspecified disorder of kidney and ureter Ureteral mass Unspecified disorder of kidney and ureter documented in this encounter Care Teams Electrician Helper Powerhouse Relationship Specialty Start Date End Date Reyna Perez, GOLF COURSE DESIGNER [address] [facility] [address] [place] [phone] PCP - General Nurse Practitioner 10/27/24 documented as of this encounter
--- OUTSIDE RECORDS SUMMARY | 2024-10-25 13:42 | XMS_ITS | Encounter Summary ---
Author Organization [place] [address] Care Team Providers Care Procurement Specialist Name Role Phone Unavailable Primary Care Provider Unavailabl e Reason for Visit * Auth/Cert/Inpt Specialty Diagnoses / Procedures Referred By Juan R t Referred To Contact Diagnoses ASHD (arteriosclerotic heart disease) ASHD (arteriosclerotic heart disease) [I25.10] Procedures AR CORONARY ARTERY BYP W/VEIN & ARTERY GRAFT 2 VEIN AR CABG W/ARTERIAL GRAFT SINGLE ARTERIAL GRAFT AR ECHO TRANSESOPHAG MONTR CARDIAC PUMP FUNCTJ Coronary Artery Bypass Graft, Left Atrial Appendage Ligation, Referral ID Status Reason Start Date Expiration Date Visits Re quested Visits Authorized [id number] 1 1 Encounter Details Date Type Department Care Team (Latest Contact Info) Description 10/25/2024 1:42 PM EDT - 10/25/2024 11:59 PM EDT Hospital Encounter EDG PRE-ADMIT TESTING [facility] [place] [address] Discharge Disposition: Home or Self Care Anesthesia Record Procedure Summary Procedure Name Responsible Anesthesiologist Anesthesia Start Time Anesthesia Stop Time CYSTOSCOPY URETEROSCOPY STENT PLACEMENT OR EXCHANGE (Left: Ureter) Sherita Moya MD 10/27/24 1338 10/27/24 1439 Events Date Time Event Comment 10/27/2024 1218 1256 AN Equip Check 1338 An Start 1339 An Start Data 1344 Immediate Pre Anesthetic Ass es 1344 An Induction 1349 An LMA 1349 Anesthesia Ready 1352 Time out 1352 Incision 1430 An Emergence 1434 An Extubation 1434 an stop data 1439 An Stop 1439 Handoff I completed my SBAR handoff to the receiving nurse which has included the followin. Identification of the patient, family, or patient surrogate 2. Identification of the responsible practitioner 3. Pertinent medical history 4. Surgical procedure and reason for procedure 5. Intraoperative anesthetic management 6. All current lines, drains and respiratory support. 7. Outstanding follow up orders (X-rays, consults etc) 8. Expectations/Plans for the early post-procedure period 9. Opportunity for questions and acknowledgement of understanding from the receiving PACU/ICU receiving team member Meds * Agents No agents on file. * Blood No blood administrations on file. Lines, Drains, and Airways Type Details Placement Removal Peripheral IV 10/27/24; 1214; 20; Right; Hand; Tesha RN; 1; 10/27/24; 1611; Therapy completed, Discharged, Per Protocol; Catheter intact, Dressing applied, No Complications 10/27/24 1214 by Tesha Banda RN 10/27/24 1611 by Kathy Guaman RN Incision/Wound 10/27/24; 1352; No; Closed Surgical; Urethra; 10/27/24; 202610/27/24 1352 by Phuong Duran RN 10/27/242026 by Discharge Provider, Automatic Airway Device: LMA; Size: 5 ; Placement Date: 10/27/24; Placement Time: 1406 (created via procedure documentation); Removal Date: 10/27/24; Removal Time: 1434 10/27/24 1406 by Phuong Clark CRNA 10/27/24 1434 by Phuong Clark CRNA documented in this encounter Social History Tobacco Use Types Packs/Day Years [...] Sign Reading Time Taken Comments Blood Pressure 122/63 10/25/2024 1:52 PM EDT Pulse 75 10/25/2024 1:52 PM EDT Temperature 36.9 C (98.5 F) 10/25/2024 1:52 PM EDT Respiratory Rate - - Oxygen Saturation 96% 10/25/2024 1:52 PM EDT Inhaled Oxygen Concentration - - Weight 111.6 kg (246 lb) 10/25/2024 1:52 PM EDT Height 172.7 cm (5' 8 ) 10/25/2024 1:52 PM EDT Body Mass Index 37.4 10/25/2024 1:52 PM EDT documented in this encounter Discharge Instructions * Discharge Instructions* Ashely Whitehead RN - 10/25/2024 2:21 PM EDT Images from the original note were not included. PREPARING FOR YOUR SURGERY Date of Surgery: 10/27/2024 Arrival time: Your surgeon may have already provided this, check your paperwork from the office. Ifnot received, call your surgeon's office. Location: [place] Medications on the Day of Surgery Take the following medications on the morning of surgery: Prevacid-Toprol Medications to hold prior to surgery; Verify with your doctor for possibly discontinuing the following medications: blood thinners, aspirin, or anti-inflammatories. Stop taking all supplements 7 days prior to your surgery. Do not take any RYLAND inhibitors (ends in PRIL ) or angiotensin receptor blockers (ends in [place] )on the day of surgery Food, Drinks, Tobacco Do not eat any food after midnight. This includes gum, mints, candy, chewing tobacco, and dip. Unless otherwise instructed by your surgeon, you may consume water, Gatorade, Powerade, black coffee/tea(no milk, no cream/creamers, no sugar) up to two hours prior to your scheduled arrival time. No exceptions or substitutions to these restrictions. Do not smoke, vape, or use any type of tobacco or marijuana products within 24 hours prior to surgery. Smoking will also slow your rate of healing. It is advised that you do not smoke during the healing process. No alcohol 24 hours prior to surgery. Timing Inspector It is important to have a Timing Inspector, someone who is 18 years or older, to accompany you and remain in the facility for the duration of your surgery. This person should be available for the Perioperative Team, which includes your surgeon, to communicate with before, during and after your surgery. Because you are receiving anesthesia, someone is needed to drive you home and remain with you for at least 24 hours after surgery to make sure you are safe during that time We also recommend that no children be present on the day of surgery. If you have a concern, please reach out to our department [phone]. Hygiene Cook your teeth and gargle the morning of surgery. Shower the morning of surgery or the night before. Do not wear makeup (including eye makeup) lotion, powder, deodorant, perfume, or cologne. Do not shave the operative extremity or near the operative area. Personal Items Wear clean, simple, loose-fitting clothing (no jeans) and sturdy shoes (no flip flops, slides or crocs) to the hospital. Do not bring unnecessary valuables with you. It is policy that [facility] does not assume responsibility for lost, stolen or broken personal items that are brought in. Exceptions may be consideredfor items which are considered necessary for your healthcare. These items will be formally documented. Remove all jewelry prior to surgery to prevent injury. We will not tape wedding rings/bands If you have dentures, they may need to be removed before going into the operating room. We will have a case for them. Glasses and contacts will need to be removed prior to surgery. Please bring a case for them. Notify the Surgeon Notify your surgeon if you develop any illness (fever, cold, cough, sore throat, nausea, vomiting, skin rashes etc.) between now and surgery time Notify your surgeon and Pre-admission testing ([phone]) if you have any changes in your healthconditions or if any new medications are ordered between now and surgery.. Questions or Concerns? If you have any questions or concerns, feel free to call the Pre-Admission testing department at [phone]. We want to make sure you feel safe and have an excellent experience while you are here. Do not reply to this message through [employer] as it may not be answered promptly. Same Day Surgery Unit - [facility] at [phone]; FTT: Main Entrance 1A, stop at lead front desk agent and you will be sent to [address] [phone]. DOORS OPEN AT 6:00 AM WED-WED AND 6:30 AM ON WEDNESDAY {JADON GIL SE and SSI:[id number]} documented in this encounter Medications at Time of Discharge [...] [facility] [address] [place], [place] [address] 12/01/2024 11:30 AM EDT Hospital Encounter [facility] [address] [place] [address] Sadi Haney MD [address] [facility] [address] [place] [address] 12/01/2024 11:30 AM EDT Anesthesia Event [facility] [address] [place] [facility] Kathy Dong, RADIO BOARD OPERATOR 1 [facility] [place] [address] 12/01/2024 11:30 AM EDT - 12/01/2024 4:42 PM EDT Surgery [facility] [address] 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
--- OUTSIDE RECORDS SUMMARY | 2024-10-27 11:03 | XMS_ITS | Encounter Summary ---
Author Organization [place] [address] Care Team Providers Care Transformer Maker Name Role Phone Reyna Perez DEMETRIUS Primary Care Provider [phone] Reason for Visit * Auth/Cert/Inpt Specialty Diagnoses / Procedures Referred By Juan R acosta Referred To Contact Diagnoses Ureteral mass Ureteral mass [N28.89] Procedures WI CYSTO W/URETEROSCOPY W/LITHOTRIPSY WI CYSTOURETHROSCOPY WITH BIOPSY CYSTOSCOPY LEFT URETEROSCOPY LASER LITHOTRIPSY LEFT STENT PLACEMENT OR EXCHANGE Referral ID Status Reason Start Date Expiration Date Visits Re quested Visits Authorized [id number] 1 1 Encounter Details Date Type Department Care Team (Latest Contact Info) Description 10/27/2024 11:03 AM EDT - 10/27/2024 4:21 PM EDT Hospital Encounter [facility] SAME DAY SURGERY [address] [facility] [place] [address] Patricia Ellison MD [address] [place] [address] Ureteral mass Discharge Disposition: Home or Self [...] hear form us, call our office at [phone] to arrange the follow up or surgery. [address] [place] [address] Patricia Ellison MD [phone] +++++++++++++++++++++++++++++++++++++++++++++++++++++++++++++++++++ [facility] Discharge Instructions - Following Anesthesia We appreciate [...] our office at . Get Well Soon! [place] [facility] +++++++++++++++++++++++++++++++++++++++++++++++++++++++++++++++++++ documented in this encounter Medications [...] Sosa NP - 10/27/2024 11:20 AM EDT [facility] History and Physical Name: Ernst Pugh ADDRESS: [address] [place] [address] [place] [address] : 1975 AGE: 49 y.o. Assessment: Ureteral [...] disease) Heartburn Hyperlipidemia Hypertension Kidney mass left [place] (myocardial infarction) (HCC) 09/17/2024 Motion sickness Past [...] and leg swelling. Hypertension: well controlled Hyperlipidemia CAD/[place] (VIC RCA 09/19/24): Coronary Stents Peripheral arterial [...] nursing note reviewed. Exam conducted with a leather cutter present. Constitutional: General: He is not in [...] in this encounter Nursing Notes * Shoshana Rankin, LAY - 10/23/2024 2:12 PM EDT [facility] - [phone] Request sent to Reyna Perez APRN * Shoshana Rankin RN - 10/23/2024 2:09 PM EDT URGENT CLEARANCE REQUEST ATTENTION: Reyna Perez ENVIRONMENTAL HEALTH SAFETY ENGINEER Patient Ernst Pugh 1975 DATE OF SURGERY: 10/27/2024 WITH Patricia Sena MD FOR: WI CYSTO W/URETEROSCOPY W/LITHOTRIPSY [56042] (CYSTOSCOPY LEFT URETEROSCOPY LASER LITHOTRIPSY LEFT STENT PLACEMENT OR EXCHANGE) THE ANESTHESIA DEPARTMENT IS REQUESTING A CLEARANCE RELATED TO: Recent PCI. Can patient hold Effient ? Surgeon is asking if patient cannot hold Effient, can patient proceed with procedure? Anesthesia type:General PLEASE RESPOND TO THIS ENCOUNTER OR CALL WITH ANY QUESTIONS/CONCERNS PHONE: [phone] [facility] PRE-ADMISSION TESTING DEPARTMENT documented in this encounter Plan of Treatment Upcoming Encounters Date Type Department Care Team (Latest Contact Info) Description 11/23/2024 12:45 PM EDT Appointment [facility] PRE-ADMIT TESTING [address] [facility] [address] 12/01/2024 11:30 AM EDT Hospital Encounter [facility] [address] [place] [address] Sadi Haney MD [address] [place] [address] [place] [address] 12/01/2024 11:30 AM EDT Anesthesia Event [facility] [address] [place] [address] Kathy Dong APRN 1 [facility] [place] [id number] 12/01/2024 11:30 AM EDT - 12/01/2024 4:42 PM EDT Surgery [facility] [address] [place] [address] Sadi Haney MD [address] [place] [address] [place] [address] DEREK ROBOTIC RADICAL NEPHRECTOMY Scheduled Procedures Name Priority Associated Diagnoses Date/Ti nd DAVINCI ROBOTIC RADICAL NEPHRECTOMY Ureteral mass 12/01/2024 11:30 AM EDT CYSTOSCOPY TRANSURETHRAL RESECTION BLADDER TUMOR - FULGURATION/EVACUATION OF CLOT Ureteral mass 12/01/2024 11:30 AM EDT documented as of this encounter Procedures Procedure Name Priority Date/Time Associated Diagnosis Comments SCANNED RHYTHM STRIPS 10/30/2024 11:09 AM EDT PATHOLOGY TISSUE REQUEST Routine 025 2:22 PM EDT Ureteral mass NON-MATERIALS BUYER CYTOLOGY REQUEST Routine 025 2:03 PM EDT Ureteral mass WI CYSTOURETHROSCOPY WITH BIOPSY 10/27/2024 1:38 PM EDT [...] PM EDT) CASE REPORT Surgical Pathology Case: [id number] Authorizing Provider: Patricia Ellison MD Collected: 10/27/2024 1422 Ordering Location: [facility] SURGERY Received: 10/27/2024 1908 Pathologist: Tesha Love MD Specimen: Ureter, Left, left ureteral mass 11/02/2024 8:25 AM EDT [facility] CLINICAL HISTORY large ureteral mass occluding the lumen of the proximal/mid ureter biopsied x2 with netinol basket 11/02/2024 8:25 AM EDT [facility] FINAL DIAGNOSIS A. Ureteral mass, biopsy: - Non invasive Low-grade papillary urothelial carcinoma. - Negative for muscularis propria muscle 11/02/2024 8:25 AM EDT [facility] at [address] Ellison was notified on 11-02-24, HR Secure chat. This case has been seen in intradepartmental consultation with agreement./QL A urinary bladder biopsy synoptic was used in this case with tumor site indicated ureter proximal mid. 11/02/2024 8:25 AM EDT [facility] GROSS DESCRIPTION The specimen is received [...] Denton PA(ASCP) 10/30/2024 11/02/2024 8:25 AM EDT [facility] MICROSCOPIC DESCRIPTION The microscopic examination may have been rendered in whole, or in part, by analyzing high-resolution digital images (whole slide images) on the [employer] Digital Pathology platform validated at [facility]. 11/02/2024 8:25 AM EDT [facility] SYNOPTIC REPORT CHECKLIST URINARY BLADDER: Biopsy and [...] muscle): Not identified 11/02/2024 8:25 AM EDT [facility] EMBEDDED IMAGES 11/02/2024 8:25 AM EDT [facility] Tissue STRUCTURE OF LEFT URETER / Unknown 10/27/2024 2:22 PM EDT 10/27/2024 7:08 PM EDT Patricia Ellison MD PATHOLOGY ORDERABLES Final R esult [facility] [address] [phone] [facility]AT[facility] LAB[facility]ORY 1 [place] [address] * NON-MATERIALS BUYER CYTOLOGY REQUEST (10/27/2024 2:03 PM EDT) CASE REPORT Non-gynecologic Cytology Case: [id number] Authorizing Provider: Patricia Ellison MD Collected: 10/27/2024 1403 Ordering Location: [facility] SURGERY Received: 10/27/2024 1415 Pathologist: Jerome Hickman MD Specimen: Urethra, urine cytology 10/30/2024 1:34 PM EDT [facility] NON-MATERIALS BUYER CYTOLOGY FINAL DIAGNOSIS Catheterized urine, left ureter: - Negative for high-grade urothelial carcinoma. 10/30/2024 1:34 PM EDT [facility] at 1334 EDT EMBEDDED IMAGES 10/30/2024 1:34 PM EDT [facility] MICROSCOPIC DESCRIPTION Microscopic examination is performed and the findings corroborate the diagnosis. 10/30/2024 1:34 PM EDT [facility] Gross Description Urine, Rec'd 10ml of bloody fluid. (TP) 10/30/2024 1:34 PM EDT [facility] Urine URETHRAL STRUCTURE / Unknown 10/27/2024 2:03 PM EDT 10/27/2024 2:15 PM EDT Patricia Ellison MD CYTOLOGY ORDERABLES Final Re sult [facility] [address] [place] [address] documented in this encounter Visit Diagnoses Diagnosis [...] IVPB 2 g (COMPLETED) 2 g, Intravenous, LINING PRESSER TO O.R., 1 dose, On Wed10/27/24 at [...] mcg 1 HYDROmorphone (DILAUDID) injection 0.5 mg 1 10/27/2024 lidocaine HCL (GLYDO) 2 % mucosal [...] 10/27/2024 documented in this encounter Care Teams Transformer Maker Relationship Specialty Start Date End Date Reyna Perez APRN [facility] [address] [place] [address] PCP - General Nurse Practitioner 10/27/24 documented as of this encounter
--- OUTSIDE RECORDS SUMMARY | 2024-10-27 13:00 | XMS_ITS | Encounter Summary ---
Author Organization [employer] [place] [address] Care Team Providers Care Freight Forwarder Name Role Phone Reyna Perez DEMETRIUS Primary Care Provider Reason for Visit * Auth/Cert/Inpt Specialty Diagnoses / Procedures Referred By Juan R acosta Referred To Contact Diagnoses Ureteral mass Ureteral mass [N28.89] Procedures NM CYSTO W/URETEROSCOPY W/LITHOTRIPSY NM CYSTOURETHROSCOPY WITH BIOPSY CYSTOSCOPY LEFT URETEROSCOPY LASER LITHOTRIPSY LEFT STENT PLACEMENT OR EXCHANGE Referral ID Status Reason Start Date Expiration Date Visits Re quested Visits Authorized [id number] 1 1 Encounter Details Date Type Department Care Team (Late st Contact Info) Description 10/27/2024 1:00 PM EDT - 10/27/2024 1:55 PM EDT Surgery [facility] [address] [facility] [place] [address] Patricia Ellison MD [address] [place], [place] [id number] CYSTOSCOPY URETEROSCOPY STENT PLACEMENT OR EXCHANGE Surgery Details Date/Time Status Location OR Service Patient Class Case Class Case Type Trauma Case? 10/27/2024 1:00 PM Posted [facility] MAIN OR [facility] CYSTO/ OR 1 Urology Same Day Surgery Elective Panel 1 Procedure LRB Anes Op Region Wound Class Comments CYSTOSCOPY URETEROSCOPY STENT PLACEMENT OR EXCHANGE Left General Ureter Clean Contaminated CYSTOSCOPY LEFT URETEROSCOPY LEFT STENT PLACEMENT LEFT URETERAL MASS BIOPSY CYSTOSCOPY BLADDER /URETHRA BIOPSY General Surgeon Surgeon Role Service Panel Patricia Ellison MD Primary Urology 1 Special Needs sk documented in this encounter Social History Tobacco [...] Sign Reading Time Taken Comments Blood Pressure 140/74 10/27/2024 11:11 AM EDT Pulse 79 10/27/2024 11:11 AM EDT Temperature 36.3 C (97.3 F) 10/27/2024 11:11 AM EDT Respiratory Rate 20 10/27/2024 11:11 AM EDT Oxygen Saturation 97% 10/27/2024 11:11 AM EDT Inhaled Oxygen Concentration - - Weight [...] hear form us, call our office at [phone] to arrange the follow up or surgery. [address] [place] [address] Patricia Ellison MD [phone] +++++++++++++++++++++++++++++++++++++++++++++++++++++++++++++++++++ [facility] Discharge Instructions - Following Anesthesia We appreciate [...] our office at . Get Well Soon! [place] [facility] +++++++++++++++++++++++++++++++++++++++++++++++++++++++++++++++++++ documented in this encounter Medications [...] Sosa NP - 10/27/2024 11:20 AM EDT [facility] History and Physical Name: Ernst Pugh ADDRESS: [address] [place] [address] [place] [address] : 1975 AGE: 49 y.o. Assessment: Ureteral [...] disease) Heartburn Hyperlipidemia Hypertension Kidney mass left [place] (myocardial infarction) (HCC) 09/17/2024 Motion sickness Past [...] and leg swelling. Hypertension: well controlled Hyperlipidemia CAD/[place] (VIC RCA 09/19/24): Coronary Stents Peripheral arterial [...] nursing note reviewed. Exam conducted with a screen printing machine loader unloader present. Constitutional: General: He is not in [...] Rankin RN - 10/23/2024 2:12 PM EDT PCP - [phone] Request sent to Reyna Perez APRN * Shoshana Rankin RN - 10/23/2024 2:09 PM EDT URGENT CLEARANCE REQUEST ATTENTION: Reyna Perez APRN Patient Ernst Pugh 1975 DATE OF SURGERY: 10/27/2024 WITH Patricia Sena MD FOR: NM CYSTO W/URETEROSCOPY W/LITHOTRIPSY [50089] (CYSTOSCOPY LEFT URETEROSCOPY LASER LITHOTRIPSY LEFT STENT PLACEMENT OR EXCHANGE) THE ANESTHESIA DEPARTMENT IS REQUESTING A CLEARANCE RELATED TO: Recent PCI. Can patient hold Effient ? Surgeon is asking if patient cannot hold Effient, can patient proceed with procedure? Anesthesia type:General PLEASE RESPOND TO THIS ENCOUNTER OR CALL WITH ANY QUESTIONS/CONCERNS PHONE: [phone] Thank You [facility] PRE-ADMISSION TESTING DEPARTMENT documented in this encounter Plan of Treatment Upcoming Encounters Date Type Department Care Team (Latest Contact Info) Description 11/23/2024 12:45 PM EDT Appointment EDG PRE-ADMIT TESTING [facility] [place] [id number] 12/01/2024 11:30 AM EDT Hospital Encounter [facility] [address] [place] [address] Sadi Haney MD [address] [facility] [address] [place] [address] 12/01/2024 11:30 AM EDT Anesthesia Event [facility] [address] [place] [address] Kathy Dong, CLOTH PATTERN MAKER 1 [facility] [place] [phone] 12/01/2024 11:30 AM EDT - 12/01/2024 4:42 PM EDT Surgery [facility] [address] [place] [address] Sadi Haney MD [address] [facility] [address] [place] [address] DAVINCI ROBOTIC RADICAL NEPHRECTOMY Scheduled Procedures Name [...] Routine 025 2:22 PM EDT Ureteral mass NON-OCCUPATIONAL SAFETY AND HEALTH MANAGER CYTOLOGY REQUEST Routine 025 2:03 PM EDT Ureteral mass NM CYSTOURETHROSCOPY WITH BIOPSY 10/27/2024 1:38 PM EDT [...] PM EDT) CASE REPORT Surgical Pathology Case: [id number] Authorizing Provider: Patricia Ellison MD Collected: 10/27/2024 1422 Ordering Location: [facility] SURGERY Received: 10/27/2024 1908 Pathologist: Tesha Love MD Specimen: Ureter, Left, left ureteral mass 11/02/2024 8:25 AM EDT [facility] CLINICAL HISTORY large ureteral mass occluding the lumen of the proximal/mid ureter biopsied x2 with netinol basket 11/02/2024 8:25 AM EDT [facility] FINAL DIAGNOSIS A. Ureteral mass, biopsy: - Non invasive Low-grade papillary urothelial carcinoma. - Negative for muscularis propria muscle 11/02/2024 8:25 AM EDT [facility] at [address] Ellison was notified on 11-02-24, HR Secure chat. This case has been seen in intradepartmental consultation with agreement./QL A urinary bladder biopsy synoptic was used in this case with tumor site indicated ureter proximal mid. 11/02/2024 8:25 AM EDT [facility] GROSS DESCRIPTION The specimen is received in formalin, labeled with the patient's name, medical record number, and left ureteral mass . It consists of irregular schaffer-white, friable tissue fragments, ranging from 0.2 by less than 0.1 cm to 0.7 x 0.5 by less than 0.1 cm. The specimen is submitted in toto in cassette A1. RIK Denton PA([facility]) 10/30/2024 11/02/2024 8:25 AM [facility] MICROSCOPIC DESCRIPTION The microscopic examination may have been rendered in whole, or in part, by analyzing high-resolution digital images (whole slide images) on the [employer] Digital Pathology platform validated at [facility]. 11/02/2024 8:[facility] SYNOPTIC REPORT CHECKLIST URINARY BLADDER: Biopsy and [...] muscle): Not identified 11/02/2024 8:25 AM EDT [facility] EMBEDDED IMAGES 11/02/2024 8:25 AM EDT [facility] Tissue STRUCTURE OF LEFT URETER / Unknown 10/27/2024 2:22 PM EDT 10/27/2024 7:08 PM EDT Patricia Ellison MD PATHOLOGY ORDERABLES Final R esult [facility] [address] [place], [place] [address] [phone] [facility] [address] [place] [address] * NON-OCCUPATIONAL SAFETY AND HEALTH MANAGER CYTOLOGY REQUEST (10/27/2024 2:03 PM EDT) CASE REPORT Non-gynecologic Cytology Case: [id number] Authorizing Provider: Patricia Ellison MD Collected: 10/27/2024 1403 Ordering Location: [facility] SURGERY Received: 10/27/2024 1415 Pathologist: Jerome Hickman MD Specimen: Urethra, urine cytology 10/30/2024 1:34 PM EDT [facility] NON-OCCUPATIONAL SAFETY AND HEALTH MANAGER CYTOLOGY FINAL DIAGNOSIS Catheterized urine, left ureter: - Negative for high-grade urothelial carcinoma. 10/30/2024 1:34 PM EDT [facility] at 1334 EDT EMBEDDED IMAGES 10/30/2024 1:34 PM EDT [facility] MICROSCOPIC DESCRIPTION Microscopic examination is performed and the findings corroborate the diagnosis. 10/30/2024 1:34 PM EDT [facility] Gross Description Urine, Rec'd 10ml of bloody fluid. (TP) 10/30/2024 1:34 PM EDT [facility] Urine URETHRAL STRUCTURE / Unknown 10/27/2024 2:03 PM EDT 10/27/2024 2:15 PM EDT Patricia Ellison MD CYTOLOGY ORDERABLES Final Re sult [facility] [place] [phone] documented in this encounter Visit Diagnoses Diagnosis [...] Meds) IV Restarted 10/27/2024 1:44 PM EDT lidocaine HCL (GLYDO) 2 % mucosal jelly 2% INTRAPROCEDURE, Starting on Wed10/27/24 at 1426, Until Wed10/27/24 at 1625, Intra-op Given 10/27/2024 2:26 PM EDT 10 mL ondansetron (ZOFRAN) injection 4 mg 4 mg, [...] IVPB 2 g (COMPLETED) 2 g, Intravenous, STREETCAR STARTER TO O.R., 1 dose, On Wed10/27/24 at [...] HYDROmorphone (DILAUDID) injection 0.5 mg 1 10/27/2024 ondansetron (ZOFRAN) injection 4 mg [...] 10/27/2024 documented in this encounter Care Teams Freight Forwarder Relationship Specialty Start Date End Date Reyna Perez, CLOTH PATTERN MAKER [address] [place] [phone] PCP - General Nurse Practitioner 10/27/24 documented as of this encounter
--- OUTSIDE RECORDS SUMMARY | 2024-10-27 13:38 | XMS_ITS | Encounter Summary ---
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 [address] Sherita Moya MD [address] [place] [address] [address] [place] [address] Record, Jhoana Gutierrez APRN [address] [place], [place] [id number] Anesthesia Record Procedure Summary Procedure Name Responsible [...] acknowledgement of understanding from the receiving PACU/ICU steam setter Meds Name Total lidocaine injection 1% 50 [...] Atraumatic and Unchanged Insertion attempts: 1 Title: PERSHING MISSILE CREWMEMBER documented in this encounter OR Notes * [...] sedentary since NSTEMI Hypertension: well controlled Hyperlipidemia CAD/DE (VIC RCA 09/19/24): Coronary Stents Peripheral arterial [...] (effient, ASA) (-) no recreational drug use ALGORITHM DESIGN ENGINEER Additional Pre-evaluation comments CBC/BMP 09/2024 - H/H [...] sedentary since NSTEMI Hypertension: well controlled Hyperlipidemia CAD/DE (VIC RCA 09/19/24): Coronary Stents Peripheral arterial [...] (effient, ASA) (-) no recreational drug use ALGORITHM DESIGN ENGINEER Additional Pre-evaluation comments CBC/BMP 09/2024 - H/H [...] PM EDT Appointment EDG PRE-ADMIT TESTING [address] [facility] [place] [address] 12/01/2024 11:30 AM EDT Hospital Encounter [facility] [address] [place] [address] Sadi Haney MD [address] [facility] [address] [place] [address] 12/01/2024 11:30 AM EDT Anesthesia Event [facility] [address] [place] [address] Kathy Dong, NUMERICAL CONTROL ROUTER OPERATOR [address] [facility] [place] [address] 12/01/2024 11:30 AM EDT - 12/01/2024 4:42 PM EDT Surgery [facility] [address] 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 Ureteral mass 12/01/2024 11:30 AM EDT documented as of this encounter Procedures Procedure Name Priority Date/Time Associated Diagnosis Comments INTRAOP AIRWAY PLACEMENT Routine 10/27/2024 2:06 PM EDT documented in this encounter Results * INTRAOP AIRWAY PLACEMENT (10/27/2024 2:06 PM EDT) Narrative [facility] - 10/27/2024 2:06 PM EDT Phuong Clark CRNA 10/27/2024 2:07 PM Intraop Airway Placement: Date/Time: 10/27/2024 2:06 PM Induction type: IV Mask size: Standard adult Pre-Oxygenation: BMI guided pre-O2 Mask ventilation: Not attempted Airway type: LMA Device size: 5 Secured by: Tape Placement verified: End tidal CO2 and Symmetric chest wall motion Condition: Atraumatic and Unchanged Insertion attempts: 1 Title: PERSHING MISSILE CREWMEMBER us Sherita Moya MD NE ANESTHESIA Final R esult [facility] [address] [place] [address] documented in this encounter Visit Diagnoses Not on filedocumented in this encounter Administered Medications Inactive Administered Medications - up to 1 most recent administrations Medication Order MAR Action Action Date Dose Rate Site ceFAZolin (ANCEF) IVPB 2 g 2 g, Intravenous, DOGMAN/WOMAN TO O.R., 1 dose, On Wed10/27/24 at [...] on Wed10/27/24 at 1133, Until Wed10/27/24 at 2027, To be given in SDS/Pre-op Holding Area, [...] mg documented in this encounter Care Teams Plater Helper Relationship Specialty Start Date End Date Reyna Perez APRN [address] [facility] [address] [place] [address] PCP - General Nurse Practitioner 10/27/24 documented as of this encounter
--- OUTSIDE RECORDS SUMMARY | 2024-11-07 03:27 | XMS_ITS | Encounter Summary ---
Author Organization [place] [address] Care Team Providers Care Cheese Packer Name Role Phone Reyna Perze DEMETRIUS Primary Care Provider [phone] Reason for Visit * Reason Comments Shortness of Breath SOB for a few hours now, heart sx needed and kidney sx needed. No LIFE INSURANCE AGENT meds, pt is not in distress at triage, O2 is 100% RA. A&Ox4. with pt Encounter Details Date Type Department Care Team (Late st Contact Info) Description 11/07/2024 3:27 AM EDT - 11/07/2024 7:08 AM EDT Emergency [facility] Emergency [place] [place] [address] Mona Ndiaye MD [facility] EMERGENCY DEPT [address] [place] [address] Dyspnea, unspecified type (Primary Dx) Discharge Disposition: Home or Self Care Social [...] Sign Reading Time Taken Comments Blood Pressure 131/80 11/07/2024 6:00 AM EDT Pulse 68 11/07/2024 7:00 AM EDT Temperature 37 C (98.6 F) 11/07/2024 7:04 AM EDT Respiratory Rate 23 11/07/2024 7:00 AM EDT Oxygen Saturation 98% 11/07/2024 6:30 AM EDT Inhaled Oxygen Concentration - - Weight 108.9 kg (240 lb) 11/07/2024 3:21 AM EDT Height 172.7 cm (5' 8 ) 11/07/2024 3:21 AM EDT Body Mass Index 36.49 11/07/2024 3:21 AM EDT documented in this encounter Functional Status * Suicide Severity Rating Answer Date of Assessment Author No Risk 11/07/2024 3:23 AM EDT Tommy Lugo RN * [place] Suicide Severity Rating Scale (Q shift for moderate and high) Question Answer Date of Assessment Author 1. In the past month, have y ou wished you were or wished you could go to sleep and not wake up? 0 11/07/2024 3:23 AM EDT Tommy Lugo RN 2. In the past month, have y ou actually had any thoughts of killing yourself? (If no, skip to question 6) 0 11/07/2024 3:23 AM EDT Tommy Lugo RN 6. Have you ever done anythi ng, started to do anything, or prepared to do anything to end your life? 0 11/07/2024 3:23 AM EDT Tommy Lugo RN documented as of this encounter Discharge Instructions * Discharge Instructions* Mona Ndiaye MD - 11/07/2024 7:00 AM EDT Follow-up with your primary care doctor and scourer. documented in this encounter Medications at Time [...] 8 hours as needed for Nausea. 09/26/2024 sulfamethoxazole -trimethoprim (BACTRIM DS) 800-160 mg Oral Tablet Take 1 Tablet by mouth every 12 hours for 10 days. 20 Tablet 11/05/2024 documented as of this encounter Discharge Disposition Disposition Code Departure Means Destination Comment s Home or Self Detention documented in this encounter ED Notes * Tommy Lugo RN - 11/07/2024 3:29 AM EDT pt reports not taking his water pill because he has been urinating too much and peeing blood from recent biopsy. * Mona Ndiaye MD - 11/07/2024 3:19 AM EDT Chief Complaint Patient presents with Shortness of Breath SOB for a few hours now, heart sx needed and kidney sx needed. No LIFE INSURANCE AGENT meds, pt is not in distress at triage, O2 is 100% RA. A&Ox4. with pt Patient is a 49-year-old male who presents to the emergency department today for evaluation. Woke up feeling short of breath a few hours ago. Supposed to be on Lasix but has not been taking it. 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 Also has historyof CAD with recent NSTEMI. Is supposed to have bypass surgery but delayed secondary to renal mass. Feeling better now that he is here. Has not had any fevers. Has had a slight cough. Denies chest pain. Patient History No Known Allergies Home Medications: Prior to Admission medications Medication Sig Start [...] times daily. Patient not taking: Reported on 10/27/2024 09/18/24 Provider, Historical fUROsemide (LASIX) 40 mg Oral Tablet Take 40 mg by mouth daily. 09/22/24 Provider, Historical HYDROcodone-acetaminophen (NORCO) 5-325 mg Oral Tablet Take 1 Tablet by mouth every 6 hours as needed for Acute Pain > 3 Days Medically Necessary (R52) or Acute Pain (R52). 10/27/24 Patricia Ellison MD lansoprazole (PREVACID) 30 mg Oral Capsule, Delayed [...] as needed for Nausea. 09/26/24 Provider, Historical sulfamethoxazole-trimethoprim (BACTRIM DS) 800-160 mg Oral Tablet Take 1 Tablet by mouth every 12 hours for 10 days. 11/05/24 11/15/24 Patricia Ellison MD Past Medical History: Past Medical History: Diagnosis Date CAD (coronary artery disease) Heartburn Hyperlipidemia Hypertension Kidney mass left PA (myocardial infarction) (HCC) 09/17/2024 Motion sickness Social History: reports that he has been smoking cigarettes. He started smoking about 35 years ago.He has a 35.5 pack-year smoking history. He has never used smokeless tobacco. He reports that he does not currently use alcohol. He reports that he does not currently use drugs. He reports being sexually active. E-Cigarettes (such as Vapes or Juul) E-Cigarette Use Never User Family History: Family History Problem Relation Age of Onset Asthma Mother High Cholesterol Father High Blood Pressure Father Heart Disease Father Diabetes Father Cancer Father Asthma Father Anesth Problems Neg Hx Surgical History: Past Surgical History: Procedure Laterality Date CARDIAC CATHETERIZATION CORONARY ANGIOPLASTY WITH STENT PLACEMENT 09/19/2024 CYSTOSCOPY 10/27/2024 Surgeon: Patricia Ellison MD; Location: [facility]; Service: Urology Review of Systems Review of Systems All other systems reviewed and are negative. Physical Exam Blood pressure 108/48, pulse 79, resp. rate (!) 21, height 5' 8 (1.727 m), weight 240 lb (108.9 kg), SpO2 97%. Physical Exam Vitals and nursing note reviewed. Constitutional: Appearance: He is not toxic-appearing. HENT: Head: Atraumatic. Cardiovascular: Rate and Rhythm: Normal rate and regular rhythm. Pulmonary: Effort: Pulmonary effort is normal. Breath sounds: Normal breath sounds. Musculoskeletal: Cervical back: Neck supple. Right lower leg: No edema. Left lower leg: No edema. Skin: General: Skin is warm. Capillary Refill: Capillary refill takes less than 2 seconds. Neurological: Mental Status: He is alert and oriented to person, place, and time. Procedures Radiology/EKG/Labs: Labs Reviewed CBC WITH DIFF - Abnormal Result Value WBC 13.1 (*) RBC 4.70 Hgb 14.2 Hct 41.9 MCV 89.1 MCH 30.2 MCHC 33.9 RDW 13.3 Platelet 281 MPV 9.1 Neut Percent 72.7 Imm Gran% 0.7 Lymph Percent 16.9 [place] Percent 7.8 Eos Percent 1.4 Baso Percent 0.5 Neut # 9.5 (*) IMMGRAN# 0.1 Lymph # 2.2 [place] # 1.0 (*) Eos# 0.2 Baso # 0.1 COMPREHENSIVE METABOLIC PANEL - Abnormal Sodium 136 Potassium 4.5 Chloride 104 Total CO2 21 (*) Anion Gap 11 Calcium 9.5 Glucose Lvl 104 (*) BUN 18 Creatinine 1.24 Albumin 4.4 Total Protein 7.1 Bili Total 0.3 ALT 20 AST 20 Alk Phos 127 eGFR (CKD-EPIcr 2020) 71 TROPONIN-T HIGH SENSITIVITY BASELINE W/ REFLEX - Normal gq-jQhrasotr-Q 6 Narrative: Ingestion of josé miguel doses of biotin (>5 mg/day) taken within 8 hours of drawing blood sample can interfere with this immunoassay test. NT PROBNP - Normal NT Pro-BNP 53 Narrative: An NT pro-BNP level less than 300 pg/mL in any patient, regardless of age, effectively rules out acute CHF with a 99% negative predictive value. Ingestion of josé miguel doses of biotin (>5 mg/day) taken within 8 hours of drawing blood sample can interfere with this immunoassay test. D-DIMER - Normal D-Dimer 419 Narrative: For patients between the ages of 50 - 75, an age-adjusted D-Dimer cut-off in combination with non-high clinical probability may be considered for the exclusion of venous thromboembolism (calculation = age x 10). CARLOS ENRIQUE Barger, et al. [employer]. 2017;166(5):361-363 ANAID Contreras, et al. [employer]. 2015;(163):701-711. Elizabeth M, et al. BERTIN. 2014;(11):6488-7793. TROPONIN-T HIGH SENSITIVITY 2HR XR CHEST PA AND LATERAL Final Result No acute finding. - Note: Radiology results need to be interpreted within a comprehensive clinical context. If you have questions about the radiology report, please contact the office of the ordering clinician. EK EKG 12 LEAD ED Interpretation Twelve-lead EKG interpreted by me: Sinus rhythm rate 69, TN 151, QRS 94, QTc 408. No acute ST segment changes ED Course: Appropriate laboratory and radiology studies reviewed Patient presents to the emergency department today for evaluation of an episode of shortness of breath that resolved. Broad workup started. Has a negative D- dimer so do not suspect pulmonary embolism. Has a negative troponin and nonischemic EKG. Chest x-ray clear. Patient had 2 draws for his troponin and both hemolyzed. Patient no longer wants to wait around forsecond troponin. He is discharged in stable condition. Advised follow-up with family doctor. ED Clinical Impression: Dyspnea Critical Care time MDM Medical Decision Making Problems Addressed: Dyspnea, unspecified type: complicated acute illness or injury Amount and/or Complexity of Data Reviewed Labs: ordered. Radiology: ordered. Risk Prescription drug management. Condition at Discharge/Transfer from Department: Stable This chart was completed using voice recognition technology and may contain unintended errors Mona Ndiaye MD 11/07/24 0703 documented in this encounter Plan of Treatment Upcoming Encounters Date Type Department Care Team (Latest Contact Info) Description 11/23/2024 12:45 PM EDT Appointment EDG PRE-ADMIT TESTING [facility] [place] [id number] 12/01/2024 11:30 AM EDT Hospital Encounter [facility] [address] [place] [address] Sadi Haney MD [address] [place] [id number] 12/01/2024 11:30 AM EDT Anesthesia Event [facility] [address] [place] [address] Kathy Dong APRN [facility] [place] [id number] 12/01/2024 11:30 AM EDT - 12/01/2024 4:42 PM EDT Surgery [facility] [address] 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 Author Autogenerat ed Goal Care Plan Autogenerated Problem No Siena Jarquin documented as of this encounter Procedures Procedure Name Priority Date/Time Associated Diagnosis Comments SCANNED EKG 11/07/2024 10:27 AM EDT XR CHEST PA AND LATERAL STAT 11/07/2024 4:02 AM EDT TROPONIN-T HIGH SENSITIVITY BASELINE W/ REFLEX STAT 11/07/2024 3:52 AM EDT D-DIMER STAT 11/07/2024 3:52 AM EDT CBC WITH DIFF STAT 11/07/2024 3:52 AM EDT NT PROBNP STAT 11/07/2024 3:52 AM EDT COMPREHENSIVE METABOLIC PANEL STAT 11/07/2024 3:52 AM EDT SALINE LOCK IV STAT 11/07/2024 3:43 AM EDT EK EKG 12 LEAD STAT 11/07/2024 3:33 AM EDT documented in this encounter Results * SCANNED EKG (11/07/2024 10:27 AM EDT) Anatomical Region Laterality Modality Other 11/07/2024 10:2 7 AM EDT us Unknown Provider IMG ECG ORDERABLES Final Result * XR CHEST PA AND LATERAL (11/07/2024 4:02 AM EDT) Anatomical Region Laterality Modality Chest Radiographic Lorna ging 11/07/2024 4:02 AM EDT Impressions 11/07/2024 4:51 AM EDT No acute finding. - Note: Radiology results need to be interpreted within a comprehensive clinical context. If you have questions about the radiology report, please contact the office of the ordering clinician. Narrative 11/07/2024 4:51 AM EDT PA AND LATERAL CHEST X-RAY, 11/07/2024 4:02 AM CLINICAL HISTORY: -dyspnea COMPARISON: 09/18/2024 PROCEDURE COMMENTS: Frontal and lateral views of the chest. FINDINGS: Heart and mediastinal contours within normal limits for technique. No active failure, pneumonia, or visible effusion. No visible pneumothorax. Procedure Note Omkar Cervantes MD - 11/07/2024 PA AND LATERAL CHEST X-RAY, 11/07/2024 4:02 AM CLINICAL HISTORY: -dyspnea COMPARISON: 09/18/2024 PROCEDURE COMMENTS: Frontal and lateral views of the chest. FINDINGS: Heart and mediastinal contours within normal limits for technique. Noactive failure, pneumonia, or visible effusion. No visible pneumothorax. IMPRESSION: No acute finding. - Note: Radiology results need to be interpreted within a comprehensiveclinical context. If you have questions about the radiology report, please contactthe office of the ordering clinician. Mona Ndiaye MD IMG DIAGNOSTIC IMAGING ORDERAB LES Final Result * D-DIMER (11/07/2024 3:52 AM EDT) D-Dimer 419 <=500 ng/mL FEU 11/07/2024 4:26 AM EDT [facility] Comment:This is an automated latex enhanced immunoassay for the quantitative determination of D-Dimer that may be used, in conjunction with a clinical pretest probability assessment, to exclude venous thromboembolism in patients suspected of deep venous thrombosis (DVT) and pulmonary embolism (PE). The cutoff for exclusion of DVT and PE is 500 ng/mL Fibrinogen Equivalent Units (FEU). Elevated D-Dimer levels may be associated with PE, DVT, disseminated intravascular coagulation, recent surgery, recent bleeding, , malignancy, and inflammation. Blood VENOUS BLOOD / Unknown Venipuncture / Unknown 11/07/2024 3:52 AM EDT 11/07/2024 3:54 AM EDT Narrative [facility] - 11/07/2024 4:26 AM EDT For patients between the ages of 50 - 75, an age-adjusted D-Dimer cut-off in combination with non-high clinical probability may be considered for the exclusion of venous thromboembolism (calculation = age x 10). CARLOS ENRIQUE Barger, et al. [employer]. 2017;166(5):361-363 ANAID Contreras, et al. [employer]. 2015;(163):701-711. Matt Johnson, et al. BERTIN. 2014;(11):5489-3331. Mona Ndiaye MD HEMATOLOGY ORDERABLES Final Re sult Performing Organization Address [facility] de Phone Number [facility] [address] [place] [phone] * NT PROBNP (11/07/2024 3:52 AM EDT) NT Pro-BNP 53 <=138 pg/mL 11/07/2024 4:13 AM EDT [facility] Blood VENOUS BLOOD / Unknown Venipuncture / Unknown 11/07/2024 3:52 AM EDT 11/07/2024 3:55 AM EDT Narrative [facility] - 11/07/2024 4:13 AM EDT An NT pro-BNP level less than 300 pg/mL in any patient, regardless of age, effectively rules out acute CHF with a 99% negative predictive value. Ingestion of josé miguel doses of biotin (>5 mg/day) taken within 8 hours of drawing blood sample can interfere with this immunoassay test. us Mona Ndiaye MD CHEMISTRY ORDERABLES Final Res ult Performing Organization Address [facility]/ZIP Co de Phone Number [facility] [address] [place] [address] * TROPONIN-T HIGH SENSITIVITY BASELINE W/ REFLEX (11/07/2024 3:52 AM EDT) Pathologist [facility] ov-lJpuldzwx-[id number] 6 <22 ng/L 11/07/2024 4:13 AM EDT [facility] Blood VENOUS BLOOD / Unknown Venipuncture / Unknown 11/07/2024 3:52 AM EDT 11/07/2024 3:55 AM EDT Narrative [facility] - 11/07/2024 4:13 AM EDT Ingestion of josé miguel doses of biotin (>5 mg/day) taken within 8 hours of drawing blood sample can interfere with this immunoassay test. us Mona Ndiaye MD CHEMISTRY ORDERABLES Final Res ult [facility] [address] [place] [address] * (ABNORMAL) COMPREHENSIVE METABOLIC PANEL (11/07/2024 3:52 AM EDT) [facility] Sodium 136 136 - 145 mmol/L 11/07/2024 4:13 AM EDT [facility] Potassium 4.5 3.5 - 5.0 mmol/L 11/07/2024 4:13 AM EDT [facility] Chloride 104 98 - 107 mmol/L 11/07/2024 4:13 AM EDT [facility] Total CO2 21(L) 22 - 29 mmol/L 11/07/2024 4:13 AM EDT [facility] Anion Gap 11 7 - 16 mmol/L 11/07/2024 4:13 AM EDT [facility] Calcium 9.5 8.6 - 10.4 mg/dL 11/07/2024 4:13 AM EDT [facility] Glucose Lvl 104(H) 70 - 99 mg/dL 11/07/2024 4:13 AM EDT [facility] BUN 18 6 - 20 mg/dL 11/07/2024 4:13 AM EDT [facility] Creatinine 1.24 0.67 - 1.30 mg/dL 11/07/2024 4:13 AM EDT [facility] Albumin 4.4 3.5 - 5.2 gm/dL 11/07/2024 4:13 AM EDT [facility] Total Protein 7.1 6.4 - 8.3 gm/dL 11/07/2024 4:13 AM EDT [facility] Bili Total 0.3 0.2 - 1.4 mg/dL 11/07/2024 4:13 AM EDT [facility] ALT 20 <=41 U/L 11/07/2024 4:13 AM EDT [facility] AST 20 <=40 U/L 11/07/2024 4:13 AM EDT [facility] Alk Phos 127 40 - 129 U/L 11/07/2024 4:13 AM EDT [facility] eGFR (CKD-EPIcr 2020) 71 >=60 mL/min/1.7 3 m2 11/07/2024 4:13 AM EDT [facility] Comment:Estimated GFR was ca lculated using the CKD-EPIcr (2020) equation refit without race. The equation is recommended by the National Kidney Foundation - [place] [employer] of Nephrology Task Force. Blood VENOUS BLOOD / Unknown Venipuncture / Unknown 11/07/2024 3:52 AM EDT 11/07/2024 3:55 AM EDT us Mona Ndiaye MD CHEMISTRY ORDERABLES Final Res ult [facility] [address] [place] [address] * (ABNORMAL) CBC WITH DIFF (11/07/2024 3:52 AM EDT) WBC 13.1(H) 3.7 - 10.3 x10(3)/mcL 11/07/2024 3:57 AM EDT [facility] RBC 4.70 4.60 - 6.10 x10(6)/mcL 11/07/2024 3:57 AM EDT [facility] Hgb 14.2 13.7 - 17.5 g/dL 11/07/2024 3:57 AM EDT [facility] Hct 41.9 40.0 - 51.0 % 11/07/2024 3:57 AM EDT [facility] MCV 89.1 80.0 - 100.0 fL 11/07/2024 3:57 AM EDT [facility] MCH 30.2 26.0 - 34.0 pg 11/07/2024 3:57 AM EDT [facility] MCHC 33.9 30.7 - 35.5 g/dL 11/07/2024 3:57 AM EDT [facility] RDW 13.3 <=14.9 % 11/07/2024 3:57 AM EDT [facility] Platelet 281 155 - 369 x10(3)/mcL 11/07/2024 3:57 AM EDT [facility] MPV 9.1 8.8 - 12.5 fL 11/07/2024 3:57 AM EDT [facility] Neut Percent 72.7 % 11/07/2024 3:57 AM EDT [facility] Comment:Neutrophils equals s egs plus bands Imm Gran% 0.7 % 11/07/2024 3:57 AM EDT [facility] Comment:Automated count of m etamyelocytes, myelocytes and promyelocytes. Lymph Percent 16.9 % 11/07/2024 3:57 AM EDT [facility] [place] Percent 7.8 % 11/07/2024 3:57 AM EDT [facility] Eos Percent 1.4 % 11/07/2024 3:57 AM EDT [facility] Baso Percent 0.5 % 11/07/2024 3:57 AM EDT [facility] Neut # 9.5(H) 1.6 - 6.1 x10(3)/mcL 11/07/2024 3:57 AM EDT [facility] Comment:Neutrophils equals s egs plus bands IMMGRAN# 0.1 0.0 - 0.1 x10(3)/[facility] 11/07/2024 3:57 AM EDT [facility] Comment:Automated count of m etamyelocytes, myelocytes and promyelocytes. An absolute IG <0.1 is reported as 0.0. Lymph # 2.2 1.2 - 3.9 x10(3)/[facility] 11/07/2024 3:57 AM EDT [facility] [place] # 1.0(H) 0.3 - 0.9 x10(3)/[facility] 11/07/2024 3:57 AM EDT [facility] Eos# 0.2 0.0 - 0.5 x10(3)/[facility] 11/07/2024 3:57 AM EDT [facility] Baso # 0.1 0.0 - 0.1 x10(3)/[facility] 11/07/2024 3:57 AM EDT [facility] Blood VENOUS BLOOD / Unknown Venipuncture / Unknown 11/07/2024 3:52 AM EDT 11/07/2024 3:55 AM EDT us Mona Ndiaye MD HEMATOLOGY ORDERABLES Final Re sult [facility] [address] [place] [address] * EK EKG 12 LEAD (11/07/2024 3:33 AM EDT) Anatomical Region Laterality Modality Electrocardiogra phy 11/07/2024 3:37 AM EDT Impressions 11/07/2024 7:56 AM EDT [facility] Test Date: 2024-11-07 Pat Name: ALEX PUGH Department: DEPID Room: [facility] Gender: Male Palliative Nurse: Lanie : 1975 Requested By: MONA Chavez Order Number: [id number] Britt MD: Gala Huddleston, DO Measurements Intervals [place] Rate: 69 P: 13 TN: 151 QRS: 33 QRSD: 94 T: 54 QT: 388 QTc: 418 Interpretive Statements SINUS RHYTHM Electronically Signed On 11-07-2024 07:56:36 EDT by Gala Huddleston DO Narrative Procedure Note Gala Huddleston DO - 11/07/[address] [facility] Test Date: 2024-11-07 Pat Name: ALEX PUGH Department: DEPID Room: [facility] Gender: Male Palliative Nurse: Lanie : 1975 Requested By: MONA Chavez Order Number: [id number] Reading MD: Gala Huddleston DO Measurements Intervals [place] Rate: 69 P: 13 TN: 151 QRS: 33 QRSD: 94 T: 54 QT: 388 QTc: 418 Interpretive Statements SINUS RHYTHM Electronically Signed On 11-07-2024 07:56:36 EDT by Gala Huddleston DO us Mona Ndiaye MD IMG ECG ORDERABLES Final Resul t documented in this encounter Visit Diagnoses Diagnosis Ureteral mass- Primary Unspecified disorder of kidney and ureter Dyspnea, unspecified type- Primary Ureteral mass Unspecified disorder of kidney and ureter documented in this encounter Administered Medications Inactive Administered Medications - up to 1 most recent administrations Medication Order MAR Action Action Date Dose Rate Site sodium chloride 0.9% IV line flush 50 mL 50 mL, Intravenous, at 999 mL/hr, PRN, Starting on Wed11/07/24 at 0343, Until Wed11/07/24 at 1108, Line Care, Flush with 50 mL after IVPB to insure complete administration of the dose. May use the saline infusion to back flush IVPB tubing as needed., Use this order to document priming and flushing IV line after medication administration. sodium chloride 0.9% syringe 5-10 mL 5-10 mL, Intravenous, PRN, Starting on Wed11/07/24 at 0343, Until Wed11/07/24 at 1108, Line Care, Flush with 5 mL saline pre/post IVP, and 5 mL prior to IVPB or blood product administration. Protocol for PERIPHERAL IV saline lock maintenance, flush with 3-5 mL saline syringe every 8 hours., Flush peripheral lines every 12 hours, central lines every 8 hours, and after IV medication documented in this encounter Active and Recently Administered Medications Times are shown in EDT. PRN Medication Order 11/05/2024 11/06/2024 11/07/2024 sodium chloride 0.9% IV line flush 50 mL 50 mL, Intravenous, at 999 mL/hr, PRN, Starting on Wed11/07/24 at 0343, Until Tu11/07/24 at 1108, Line Care, Flush with 50 mL after IVPB to insure complete administration of the dose. May use the saline infusion to back flush IVPB tubing as needed., Use this order to document priming and flushing IV line after medication administration. sodium chloride 0.9% syringe 5-10 mL 5-10 mL, Intravenous, PRN, Starting on Wed11/07/24 at 0343, Until Wed11/07/24 at 1108, Line Care, Flush with 5 mL saline pre/post IVP, and 5 mL prior to IVPB or blood product administration. Protocol for PERIPHERAL IV saline lock maintenance, flush with 3-5 mL saline syringe every 8 hours., Flush peripheral lines every 12 hours, central lines every 8 hours, and after IV medication documented in this encounter Orders Medications Ordered That Rd ht Not Have Been Administered Count Last Ordered Date First Ordered Date sodium chloride 0.9% IV line flush 50 mL 1 11/07/2024 sodium chloride 0.9% syringe 5-10 mL 1 05/2024 IV Count Last Ordered Date First Orde red Date SALINE LOCK IV 1 11/07/2024 documented in this encounter Additional Health Concerns Active Problems Noted Date Diagnosed Date Autogenerated Problem 11/07/2024 documented as of this encounter Care Teams Cheese Packer Relationship Specialty Start Date End Date Reyna Perez APRN [address] [facility] [address] [facility] [address] PCP - General Nurse Practitioner 10/27/24 documented as of this encounter
--- NOTE | 2024-11-09 03:48 | ECG_ITS ---
APPROVED REPORT Exam: Resting ECG HR:66 bpm ECG Measurements Heart Rate 66 AXES CA 135 P 77 QRSd 102 QRS 57 QT 397 T 52 QTc 410 Conclusion SINUS RHYTHM NORMAL ECG Electronically signed by : GRANT GUADALUPE, 11/09/2024 05:52:48
[2024-11-09 03:53] VITALS: BP 133/59; PULSE 68; RESP 18; TEMP 37.2; O2SAT 98; BMI 36.5
--- OUTSIDE RECORDS SUMMARY | 2024-11-09 03:54 | XMS_ITS | Encounter Summary ---
Author Organization [place] [address] Care Team Providers Care Parole Supervisor Name Role Phone Reyna Perez Jonathan ROMO Primary Care Provider [phone] Encounter Details Date Type Department Care Team (Late st Contact Info) Description 10/19/2024 Results Follow-Up [facility] Cardiac Surgeons [place] [address] [facility] [address] [place] [address] ABDOMEN PELVIS WO ORAL WITH IV CONTRAST Social History Tobacco Use Types Packs/Day Years [...] on file documented as of this encounter Plan of Treatment Upcoming Encounters Date Type Department Care Team (Latest Contact Info) Description 11/23/2024 12:45 PM EDT Appointment EDG PRE-ADMIT TESTING [facility] [place] [address] 12/01/2024 11:30 AM EDT Hospital Encounter [facility] [address] [place] [address] Sadi Haney MD [address] [facility] [address] [place] [id number] 12/01/2024 11:30 AM EDT Anesthesia Event [facility] [address] [place] [address] Kathy Dong APRN [address] [place] [address] 12/01/2024 11:30 AM EDT - 12/01/2024 4:42 PM EDT Surgery [facility] [address] 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
--- OUTSIDE RECORDS SUMMARY | 2024-11-09 03:54 | XMS_ITS | Encounter Summary ---
Author Organization [place] [address] Care Team Providers Care Pasta Maker Name Role Phone Reyna Perez DEMETRIUS Primary Care Provider [phone] Encounter Details Date Type Department Care Team (Late st Contact Info) Description 10/20/2024 Results Follow-Up [facility] NPTFTT [address] [place] [address] Patricia Ellison MD [address] [place], [place] [phone] NON-GEOSPATIAL ENGINEER CYTOLOGY REQUEST Social History Tobacco Use Types Packs/Day Years [...] PM EDT Appointment EDG PRE-ADMIT TESTING [address] [facility] [place] [address] 12/01/2024 11:30 AM EDT Hospital Encounter [facility] [address] [place] [address] Sadi Haney MD [address] [facility] [address] [place] [address] 12/01/2024 11:30 AM EDT Anesthesia Event [facility] [address] [place] [address] Kathy Dong, [address] [facility] [place] [address] 12/01/2024 11:30 AM EDT - 12/01/2024 4:42 PM EDT Surgery [facility] [address] 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
--- OUTSIDE RECORDS SUMMARY | 2024-11-09 03:55 | XMS_ITS | Encounter Summary ---
Author Organization [place] [address] Care Team Providers Care Sales Process Manager Name Role Phone Reyna Perez DEMETRIUS Primary Care Provider [phone] Reason for Visit * Reason Onset Date Comments Results 11/01/2024 Encounter Details Date Type Department Care Team (Late st Contact Info) Description 11/01/2024 Telephone SEP Nurse Now [facility] [place] [address] Fito Weeks RN Results Social History Tobacco Use Types Packs/Day Years [...] on file documented as of this encounter Miscellaneous Notes * Telephone Encounter - Radha Lange RMA - 11/01/2024 2:14 PM EDT Informed pt and pt . * Telephone Encounter - Dorinda Rodriguez PA-C - 11/01/2024 2:10 PM EDT Pathology results can take ~1-2 weeks to return. * Telephone Encounter - Darshan Ga PA - 11/01/2024 2:10 PM EDT Pathology can take a week or so to come back. Pt will be alerted by office when it results. * Telephone Encounter - Fito Weeks RN - 11/01/2024 2:02 PM EDT Pt's reaching out regarding biopsy results. Informed results are still in process. is asking how much longer it will take to get results. Routing message to office as requested. documented in this encounter Plan of Treatment Upcoming Encounters Date Type Department Care Team (Latest Contact Info) Description 11/23/2024 12:45 PM EDT Appointment EDG PRE-ADMIT TESTING [address] [place] [address] 12/01/2024 11:30 AM EDT Hospital Encounter [facility] [address] [place] [address] Sadi Haney MD [address] [place] [address] [address] [place] [address] 12/01/2024 11:30 AM EDT Anesthesia Event [facility] [address] [place] [address] Kathy Dong APRN [address] [facility] [place] [address] 12/01/2024 11:30 AM EDT - 12/01/2024 4:42 PM EDT Surgery [facility] [address] 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
--- OUTSIDE RECORDS SUMMARY | 2024-11-09 03:55 | XMS_ITS | Encounter Summary ---
Author Organization [place] [address] Care Team Providers Care Director Of Maternity Services Name Role Phone Unavailable Primary Care Provider Unavailabl e Reason for Visit * Reason Onset Date Comments Medication Management 10/23/2024 Encounter Details Date Type Department Care Team (Late st Contact Info) Description 10/23/2024 Telephone SEP Nurse Now [address] [place] [address] Fito Weeks, solar mechanical engineer Management Social History Tobacco Use Types Packs/Day Years [...] encounter Miscellaneous Notes * Telephone Encounter - Dorinda Rodriguez PA-C - 10/23/2024 12:17 PM EDT Please advise, thanks! * Telephone Encounter - Fito Weeks RN - 10/23/2024 11:56 AM EDT Patient's calling asking for instructions on when to stop blood thinners. Patient scheduled for biopsy for 10/27/24. Sending message to office to advise. documented in this encounter Plan of Treatment Upcoming Encounters Date Type Department Care Team (Latest Contact Info) Description 11/23/2024 12:45 PM EDT Appointment EDG PRE-ADMIT TESTING [facility] [address] [place] [address] 12/01/2024 11:30 AM EDT Hospital Encounter [facility] [address] [place] [address] [place] [address] [place] [address] [address] [place] [facility] 12/01/2024 11:30 AM EDT Anesthesia Event [facility] [address] [place] [address] Kathy Dong, LUBE MAN [address] [facility] [facility] [address] [place] [address] 12/01/2024 11:30 AM EDT - 12/01/2024 4:42 PM EDT Surgery [facility] [address] 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
--- OUTSIDE RECORDS SUMMARY | 2024-11-09 03:55 | XMS_ITS | Encounter Summary ---
Author Organization [place] [address] Care Team Providers Care Transport Technician Name Role Phone ChrisReyna Jonathan ROMO Primary Care Provider [phone] Reason for Visit * Reason Onset Date Comments Hematuria 11/02/2024 Encounter Details Date Type Department Care Team (Late st Contact Info) Description 11/02/2024 Telephone SEP Nurse Now [facility] [place] [address] Cheyanne Rain RN Hematuria Social History Tobacco Use Types Packs/Day Years [...] encounter Miscellaneous Notes * Telephone Encounter - Kanu Whitlock MA - 11/02/2024 12:23 PM EDT Called and spoke to Pt's , informed her that the Pt needed to increase water intake to 2 1/2- 3L of water a day. The blood thinners would cause him to bleed. Pt has no fever. Pt's verbalized understanding. Advised to call back with any other questions or concerns. * Telephone Encounter - Shania Wu APRN - 11/02/2024 10:36 AM EDT Please call patient and advise needs to increase his water that will help with the red color. He emir a blood thinner which will cause him to bleed. So at least 2-1/2 to 3 L of water a day. Also glad the stent came out without issue. Make sure no fever otherwise follow-up as directed. Thanks * Telephone Encounter - Cheyanne Rain RN - 11/02/2024 8:24 AM EDT Pt pulled the stitch from procedure on Wednesday, no issues. Hasn't had any bleeding since until this morning. Moderate bleeding in urine this morning along with one small clot. Pt is on blood thinner. This is day 2 of being back on blood thinner. Pt is wanting reassurance that this is normal healing. Routed to office. documented in this encounter Plan of Treatment Upcoming Encounters Date Type Department Care Team (Latest Contact Info) Description 11/23/2024 12:45 PM EDT Appointment EDG PRE-ADMIT TESTING One [facility] [place] [address] 12/01/2024 11:30 AM EDT Hospital Encounter [facility] [address] [place] [id number] Sadi Haney MD [address] [place] [address] [place] [address] 12/01/2024 11:30 AM EDT Anesthesia Event [facility] [address] [place] [address] Kathy Dong APRN 1 [facility] [place] [address] 12/01/2024 11:30 AM EDT - 12/01/2024 4:42 PM EDT Surgery [facility] [address] 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
--- OUTSIDE RECORDS SUMMARY | 2024-11-09 03:55 | XMS_ITS | Encounter Summary ---
Author Organization [facility] [place] [address] Care Team Providers Care Raw Scales Operator Name Role Phone Reyna Perez DEMETRIUS Primary Care Provider [phone] Encounter Details Date Type Department Care Team (Latest Contact Info) Description 11/07/2024 Travel Social History Tobacco Use Types Packs/Day Years [...] on file documented as of this encounter Functional Status * Suicide Severity Rating Answer Date of Assessment Author No Risk 11/07/2024 3:23 AM EDT Tommy Lugo RN * [place] Suicide Severity Rating Scale (Q shift for [...] to question 6) 0 11/07/2024 3:23 AM Tommy Guajardo RN 6. Have you ever done anythi ng, started to do anything, or prepared to do anything to end your life? 0 11/07/2024 3:23 AM Tommy Guajardo RN documented as of this encounter Plan of Treatment Upcoming Encounters Date Type Department Care Team (Latest Contact Info) Description 11/23/2024 12:45 PM EDT Appointment EDG PRE-ADMIT TESTING One [facility] [place] [address] 12/01/2024 11:30 AM EDT Hospital Encounter [facility] [address] [place] [address] Sadi Haney MD [address] [facility] [address] [place] [address] 12/01/2024 11:30 AM EDT Anesthesia Event [facility] [address] [place] [address] Kathy Dong, DIRECTOR OF PEDIATRIC REHABILITATION [address] [facility] [place] [address] 12/01/2024 11:30 AM EDT - 12/01/2024 4:42 PM EDT Surgery [facility] [address] [place] [facility] [place] [address] [place] [address] [address] [place] [address] DAVINCI ROBOTIC RADICAL NEPHRECTOMY Scheduled Procedures Name [...] Siena Jarquin documented as of this encounter Visit Diagnoses Not on filedocumented in this encounter Additional Health Concerns Active Problems Noted Date Diagnosed Date Autogenerated Problem 11/07/2024 documented as of this encounter Care Teams Raw Scales Operator Relationship Specialty Start Date End Date Reyna Perez, DIRECTOR OF PEDIATRIC REHABILITATION [address] [facility] [address] [place] [phone] PCP - General Nurse Practitioner 10/27/24 documented as of this encounter
--- OUTSIDE RECORDS SUMMARY | 2024-11-09 03:55 | XMS_ITS | Encounter Summary ---
Author Organization [place] [address] Care Team Providers Care Body Make Up Artist Name Role Phone Reyna Perez DEMETRIUS Primary Care Provider [phone] Reason for Visit * Reason Onset Date Comments Respiratory Distress 11/07/2024 Encounter Details Date Type Department Care Team (Late st Contact Info) Description 11/07/2024 Nurse Triage [facility] Nurse Now [address] [place] [address] Renetta Jolly RN Social History Tobacco Use Types Packs/Day Years [...] encounter Miscellaneous Notes * Telephone Encounter - Renetta Jolly RN - 11/07/2024 2:17 AM EDT [facility] Nurse Triage -Chief Complaint: Difficulty breathing . shortness of breath w/ exertion is baseline . this episode has been going on a few hours . still urinating blood from bx . takes asa . on abx due to possible UTI -Reported by: Spouse -Vitals: 97%, 127/77, 74 - no fever -Disposition per protocol: ED -Follow up/Concerns: Care advice provided. SC to Crop Quantitative Geneticist: AMEENA Black Per Crop Quantitative Geneticist: Thumbs up Patient advised: Yes Reason for Disposition Major surgery in the past month Protocols used: Breathing [id number]-SI documented in this encounter Plan of Treatment Upcoming Encounters Date Type Department Care Team (Latest Contact Info) Description 11/23/2024 12:45 PM EDT Appointment EDG PRE-ADMIT TESTING One [facility] [address] 12/01/2024 11:30 AM EDT Hospital Encounter [facility] [address] [place] [facility]42 Sadi Haney MD [address] [place] [address] [address] [place] [address] 12/01/2024 11:30 AM EDT Anesthesia Event [facility] [address] [place] [address] Kathy Dong APRN [address] [facility] [address] [place] [id number] 12/01/2024 11:30 AM EDT - 12/01/2024 4:42 PM EDT Surgery [facility] [address] 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 Author Autogenerat ed Goal Care Plan Autogenerated Problem No Michael Jarquincy documented as of this encounter Visit Diagnoses Not on filedocumented in this encounter Additional Health Concerns Active Problems Noted Date Diagnosed Date Autogenerated Problem 11/07/2024 documented as of this encounter Care Teams Body Make Up Artist Relationship Specialty Start Date End Date Reyna Perez APRN [address] [facility] [address] [place] [phone] PCP - General Nurse Practitioner 10/27/24 documented as of this encounter
--- OUTSIDE RECORDS SUMMARY | 2024-11-09 03:55 | XMS_ITS | Encounter Summary ---
Author Organization [place] [address] Care Team Providers Care Well Shooter Name Role Phone Unavailable Primary Care Provider Unavailabl e Reason for Visit * Reason Onset Date Comments Follow-up 10/20/2024 Encounter Details Date Type Department Care Team (Late st Contact Info) Description 10/20/2024 Telephone [facility] Cardiac Surgeons [place] [address] [place] [address] [address] [place] [address] Logan Kenny MD [address] [place] [address] Follow-up Social History Tobacco Use Types Packs/Day Years [...] encounter Miscellaneous Notes * Telephone Encounter - Payton Bailon RMA - 10/20/2024 2:02 PM EDT Patient called with questions regarding pre-admission testing (PAT) and medication management priorto surgery. Per guidance from Deb Woodall, I advised the patient to continue all current medications and to cancel the scheduled PAT. The patient is scheduled for a telephone visit with Dr. Kenny on October 24, 2024, at 9:[address] AM to review the CT scan results and discuss the upcoming surgery planned for October 30, 2024, or determine if surgery should be postponed pending the results of the kidney biopsy. documented in this encounter Plan of Treatment Upcoming Encounters Date Type Department Care Team (Latest Contact Info) Description 11/23/2024 12:45 PM EDT Appointment EDG PRE-ADMIT TESTING [place] [address] 12/01/2024 11:30 AM EDT Hospital Encounter [facility] [address] [place] [facility] [place] [address] [place] [address] [place] [address] 12/01/2024 11:30 AM EDT Anesthesia Event [facility] [address] [place] [address] Kathy Dong APRN [address] [facility] [address] 12/01/2024 11:30 AM EDT - 12/01/2024 4:42 PM EDT Surgery [facility] [address] 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
--- OUTSIDE RECORDS SUMMARY | 2024-11-09 03:55 | XMS_ITS | Encounter Summary ---
Author Organization [place] [address] Care Team Providers Care Data Coder Operator Name Role Phone Unavailable Primary Care Provider Unavailabl e Encounter Details Date Type Department Care Team (Late st Contact Info) Description 10/10/2024 Orders Only [facility] Cardiac Surgeons [place] [address] [facility] [address] [place] [address] Raine Guerrero MA Social History Tobacco Use Types Packs/Day Years [...] PRE-ADMIT TESTING One [facility] [place], [place] [address] 12/01/2024 11:30 AM EDT Hospital Encounter [facility] [address] [place] [id number] Sadi Haney MD [address] [facility] [address] [place] [address] 12/01/2024 11:30 AM EDT Anesthesia Event [facility] [address] [place] [address] Kathy Dong APRN 1 [place] [address] 12/01/2024 11:30 AM EDT - 12/01/2024 4:42 PM EDT Surgery [facility] [address] [place] [address] Sadi Haney MD [address] [facility] [address] [place] [id number] DEREK ROBOTIC RADICAL NEPHRECTOMY Scheduled Procedures Name Priority Associated Diagnoses Date/Ti ut DAVRUELI ROBOTIC RADICAL NEPHRECTOMY Ureteral mass 12/01/2024 11:30 AM EDT 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 prochlorperazine (COMPAZINE) 10 mg Oral Tablet Take 10 mg by mouth every 8 hours as needed for Nausea. 09/26/2024 prasugreL HCl (EFFIENT) 10 mg Oral Tablet Take 10 mg by mouth daily. 09/19/2024 nicotine (NICODERM CQ) 21 mg/24 hr TD Patch [address] 1 Patch onto the skin daily. 09/20/2024 metoprolol succinate (TOPROL-XL) 25 mg Oral Tablet Sustained Release 24 hr Take 25 mg by mouth daily. 07/11/2024 losartan (COZAAR) 50 mg Oral Tablet Take 50 mg by mouth daily. 10/05/2024 lansoprazole (PREVACID) 30 mg Oral Capsule, Delayed Release(E.C.) Take 30 mg by mouth 2 times daily. 09/18/2024 fUROsemide (LASIX) 40 mg Oral Tablet Take 40 mg by mouth daily. 09/22/2024 famotidine (PEPCID) 40 mg Oral Tablet Take 40 mg by mouth 2 times daily. 09/18/2024 atorvastatin (LIPITOR) 80 mg Oral Tablet Take 80 mg by mouth daily. 09/19/2024 aspirin 81 mg Oral Tablet, Delayed Release (E.C.) Take 81 mg by mouth daily. 09/04/2024 added in this encounter
--- OUTSIDE RECORDS SUMMARY | 2024-11-09 03:55 | XMS_ITS | Clinical Summary ---
Author Organization [facility] Address [address] [place], [place] [address] Phone Care Team Providers Care Hotel Lobby Concierge Name Role Phone Reyna Perez APRN Primary Care Provider [phone] Allergies No known active allergies Medications aspirin 81 mg Oral Tablet, Delayed Release (E.C.) Take 81 mg by mouth daily. 5 Active atorvastatin (LIPITOR) 80 mg Oral Tablet Take 80 mg by mouth daily. 5 Active famotidine (PEPCID) 40 mg Oral Tablet Take 40 mg by mouth 2 times daily. 5 Active fUROsemide (LASIX) 40 mg Oral Tablet Take 40 mg by mouth daily. 5 Active lansoprazole (PREVACID) 30 mg Oral Capsule, Delayed Release(E.C.) Take 30 mg by mouth 2 times daily. 5 Active losartan (COZAAR) 50 mg Oral Tablet Take 50 mg by mouth daily. 5 Active metoprolol succinate (TOPROL-XL) 25 mg Oral Tablet Sustained Release 24 hr Take 25 mg by mouth daily. 5 Active nicotine (NICODERM CQ) 21 mg/24 hr TD Patch [address] 1 Patch onto the skin daily. 5 Active prasugreL HCl (EFFIENT) 10 mg Oral Tablet Take 10 mg by mouth daily. 5 Active prochlorperazin e (COMPAZINE) 10 mg Oral Tablet Take 10 mg by mouth every 8 hours as needed for Nausea. 5 Active Bacillus coagulans-inuli n 1 billion-250 cell-mg Oral Capsule Take by mouth daily. Active cholecalciferol , vitamin D3, 25 mcg (1,000 unit) Oral Tablet Take 1,000 Units by mouth daily. Active Coenzyme Q10 100 mg Oral Capsule Take by mouth daily. Active HYDROcodone-david taminophen (NORCO) 5-325 mg Oral Tablet Take 1 Tablet by mouth every 6 hours as needed for Acute Pain > 3 Days Medically Necessary (R52) or Acute Pain (R52). 12 Tablet 5 Active sulfamethoxazol e-trimethoprim (BACTRIM DS) 800-160 mg Oral Tablet Take 1 Tablet by mouth every 12 hours for 10 days. 20 Tablet 5 11/16/19 25 Active Active Problems Problem Noted Date Diagnosed Date Ureteral mass 10/19/2024 ASHD (arteriosclerotic heart disease) 10/10/2024 Encounters Date Type Department Care Team Description 11/07/2024 3:27 AM EDT - 11/07/2024 7:08 AM EDT [facility] [place] [address] Mona Ndiaye MD Dyspnea, unspecified type (Primary Dx) Discharge Disposition: Home or Self Care 11/07/2024 Telephone [facility] Nurse Now [address] [place] [phone] Cheyanne Rain RN Surgery Scheduling 11/07/2024 Travel 11/07/2024 Nurse Triage [facility] Nurse Now [facility] [place] [address] Renetta Jolly RN 11/05/2024 Results Follow-Up [facility] Urology [facility] [address] [place] [address] Patricia Ellison MD NON-PORTRAIT ARTIST CYTOLOGY REQUEST, PATHOLOGY TISSUE REQUEST 11/02/2024 Telephone [facility] Nurse Now [address] [place] [address] Cheyanne Rain RN Hematuria 11/01/2024 Telephone [facility] Nurse Now [facility] [place] [address] Fito Weeks RN Results 10/31/2024 Telephone [facility] Cardiac Surgeons [address] [place] [phone] Deb Woodall, DIMENSIONAL INTEGRATION ENGINEER Dizziness 10/28/2024 Nurse Triage [facility] Nurse Now [address] [place] [phone] Tamar Alan RN 10/27/2024 1:38 PM EDT Anesthesia Event [facility] [address] [place] [address] Sherita Moya MD Record, Jhoana Gutierrez, DIMENSIONAL INTEGRATION ENGINEER 10/27/2024 1:00 PM EDT - 10/27/2024 1:55 PM EDT Surgery [facility] [address] [place] [address] Patricia Ellison MD CYSTOSCOPY URETEROSCOPY STENT PLACEMENT OR EXCHANGE 10/27/2024 11:03 AM EDT - 10/27/2024 4:21 PM EDT Hospital Encounter [facility] SAME DAY SURGERY [address] [place] [address] Patricia Ellison MD Ureteral mass Discharge Disposition: Home or Self Care 10/27/2024 Nurse Triage [facility] Nurse Now [address] [place] [phone] Kristine Ventura RN 10/27/2024 Travel 10/25/2024 1:42 PM EDT - 10/25/2024 11:59 PM EDT Hospital En[facility] [id number] Discharge Disposition: Home or Self Care 10/25/2024 Travel 10/24/2024 9:00 AM EDT Telemedicine [facility] Card[facility] Surgeons [address] [place] [phone] Logan Kenny MD ASHD (arteriosclerotic heart disease) (Primary Dx); Ureteral mass 10/23/2024 Telephone [facility] Nurse Now [address] [place] [phone] Fito Weeks, bell staff Management 10/20/2024 6:50 AM EDT - 10/20/2024 11:59 PM EDT Hospital Encounter [facility] [address] [place] [address] [address] [place] [address] Logan Kenny MD SOB (shortness of breath) Discharge Disposition: Home or Self Care 10/20/2024 Telephone [facility] Cardiac Surgeons [address] [place] [address] Logan Kenny MD Follow-up 10/20/2024 Results Follow-Up [facility] [address] [place] [address] Patricia Ellison MD NON-PORTRAIT ARTIST CYTOLOGY REQUEST 10/19/2024 3:00 PM EDT Office Visit [facility] [address] [place] [address] Patricia Ellison MD Ureteral mass (Primary Dx) 10/19/2024 10:03 AM EDT - 10/19/2024 11:59 PM EDT Hospital Encounter [facility] [address] [place] [address] Logan Kenny MD Hydronephrosis, unspecified hydronephrosis type Discharge Disposition: Home or Self Care 10/19/2024 7:44 AM EDT - 10/19/2024 10:02 AM EDT Hospital Encounter [facility] [address] [place] [address] Logan Kenny MD Bruit Discharge Disposition: Home or Self Care 10/19/2024 7:44 AM EDT - 10/19/2024 10:02 AM EDT Hospital Encounter [facility] [address] [place] [address] Logan Kenny MD Leg swelling Discharge Disposition: Home or Self Care 10/19/2024 Results Follow-Up [facility] Surgeons [address] [place] [address] Haigis, Payton, RMA CT ABDOMEN PELVIS WO ORAL WITH IV CONTRAST 10/19/2024 Orders Only [facility] [address] [place] [address] Christian Nicholas MD Abnormal CT scan (Primary Dx) 10/19/2024 Refill [facility] [address] [facility] [address] [place] [address] Janet Perez APRN Medication Refill 10/12/2024 9:27 AM EDT - 10/12/2024 11:59 PM EDT Hospital Encounter [facility] [address] [place] [phone] Logan Kenny MD Coronary artery disease involving [place] coronary artery of [place] heart with angina pectoris Discharge Disposition: Home or Self Care 10/12/2024 Orders Only [facility]geons [address] [place] [phone] Logan Kenny MD Hydronephrosis, unspecified hydronephrosis type (Primary Dx) 10/12/2024 Telephone [facility] [address] [place] [phone] Raine Guerrero MA Patient Question 10/12/2024 Results Follow-Up [facility] [address] [place] [phone] CHEST WO CONTRAST 10/10/2024 2:00 PM EDT Office Visit [facility] [address] [place] [address] Logan Kenny MD ASHD (arteriosclerotic heart disease) (Primary Dx) 10/10/2024 Orders Only [facility] [address] [place] [phone] Logan Kenny MD Bruit (Primary Dx); Leg swelling; SOB (shortness of breath); Coronary artery disease involving [place] coronary artery of [place] heart with angina pectoris 10/10/2024 Orders Only [facility] [address] [place] [phone] Raine Guerrero MA from Last 3 Months Surgical History Surgery Date Site/Laterality Comments CARDIAC CATHETERIZATION CORONARY ANGIOPLASTY WITH ST ENT PLACEMENT 09/19/2024 CYSTOSCOPY 10/27/2024 Surgeon: Patricia Ellison MD; Location: [facility] MAIN OR; Service: Urology Medical devices from this surgery are in the Medical Devices section. Medical History Medical History Date Comments CAD (coronary artery disease) TN (myocardial infarction) (HCC) 09/17/2024 Hypertension Hyperlipidemia Heartburn Kidney mass left Motion sickness Family History Medical History Relation Name Comments Asthma Father Cancer Father Diabetes Father Heart Disease Father High Blood Pressure Father High Cholesterol Father Asthma Mother Anesth Problems Neg Hx Relation Name Status Comments Father Alive Mother Social History Tobacco Use Types Packs/Day Years [...] on file Sexual Orientation Not on file Obstetrics History Last Filed Vital Signs Vital Sign Reading [...] Mass Index 36.49 11/07/2024 3:21 AM EDT Plan of Treatment Upcoming Encounters Date Type Department Care Team (Latest Contact Info) Description 11/23/2024 12:45 PM EDT Appointment EDG PRE-ADMIT TESTING [facility] [address] 12/01/2024 11:30 AM EDT Hospital Encounter [facility] [address] [place] [address] Sadi Haney MD [address] [place] [address] 12/01/2024 11:30 AM EDT Anesthesia Event [facility] [address] [place], [facility] Kathy Dong, DIMENSIONAL INTEGRATION ENGINEER [facility] [place] [address] 12/01/2024 11:30 AM EDT - 12/01/2024 4:42 PM EDT Surgery [facility] [address] [place] [address] Sadi Haney MD [address] [place] [address] DAVINCI ROBOTIC RADICAL NEPHRECTOMY Scheduled Procedures Name Priority Associated Diagnoses Date/Ti oh DAVINCI ROBOTIC RADICAL NEPHRECTOMY Ureteral mass 12/01/2024 11:30 AM EDT CYSTOSCOPY TRANSURETHRAL RESECTION BLADDER TUMOR - FULGURATION/EVACUATION OF CLOT Ureteral mass 12/01/2024 11:30 AM EDT Health Maintenance Due Date Last Done Comments Annual Wellness Exam 1977 Hepatitis B Vaccine (1 of 3 - 19+ 3-dose series) 1993 Pneumococcal Vaccine 50+ (1 of 2 - PCV) 1993 Cologuard 07/27/2019 Colon Cancer Screening 07/27/2019 Colonoscopy 07/27/2019 FIT 07/27/2019 Sigmoidoscopy 07/27/2019 Virtual Colonography 07/27/2019 COVID-19 Vaccine (1 - 2023-2 5 season) 2024 Zoster (1 of 2) 2024 Influenza Vaccine (#1) 2025 Low Dose Lung Cancer Screening 10/12/2025 10/12/2024 DTaP/TDaP/Td (2 - Td or Tdap) 10/05/2034, 07/11/1996 Meningococcal B Vaccine Aged Out No l onger eligible based on patient's age to complete this topic Goals Goal Patient Goal Type Associated Problems Recent Progress Patient-Stated? Author Autogenerat ed Goal Care Plan Autogenerated Problem No [employer] Implanted Type Area Operator And Truck Driver Device Identifier Shelf Expiration Date Model / Serial / Lot Stent Uret [id number] Contr Dbl Pig Tapr Lpro Percuflx Cath - [id number] Implanted:Qty : 1 on 10/27/2024 by Patricia Ellison MD at [facility] Stent Left: Ureter [employer]:MICROVASIVE: UROLOGY [id number] 03/22/2027 [id number] 30 / / [id number] Cardiac Stent Procedures Procedure Name Priority Date/Time Associated Diagnosis Comments SCANNED EKG 11/07/2024 10:27 AM EDT XR CHEST PA AND LATERAL STAT 11/08/19 4:02 AM EDT D-DIMER STAT 11/07/2024 3:52 AM EDT NT PROBNP STAT 11/07/2024 3:52 AM EDT TROPONIN-T HIGH SENSITIVITY BASELINE W/ REFLEX STAT 11/07/2024 3:52 AM EDT COMPREHENSIVE METABOLIC PANEL STAT 11/07/2024 3:52 AM EDT CBC WITH DIFF STAT 11/07/2024 3:52 AM EDT SALINE LOCK IV STAT 11/07/2024 3:43 AM EDT EK EKG 12 LEAD STAT 11/07/2024 3:33 AM EDT SCANNED RHYTHM STRIPS 10/30/2024 11:09 AM EDT PATHOLOGY TISSUE REQUEST Routine 10/27/2024 2:22 PM EDT Ureteral mass INTRAOP AIRWAY PLACEMENT Routine 10/27/2024 2:06 PM EDT NON-PORTRAIT ARTIST CYTOLOGY REQUEST Routine 10/27/2024 2:03 PM EDT Ureteral mass TN CYSTOURETHROSCOPY WITH BIOPSY 10/27/2024 1:38 PM EDT Ureteral mass Special Needs sk CYSTOSCOPY URETEROSCOPY STENT PLACEMENT OR EXCHANGE 10/27/2024 1:38 PM EDT Ureteral mass Special Needs sk EC ECHOCARDIOGRAM COMPLETE W DOPPLER AND COLOR FLOW MAPPING Routine 10/20/2024 7:53 AM EDT SOB (shortness of breath) NON-PORTRAIT ARTIST CYTOLOGY REQUEST Routine 10/19/2024 3:31 PM EDT Ureteral mass [facility] URINALYSIS POC Routine 10/19/2024 2:29 PM EDT Ureteral mass CT ABDOMEN PELVIS WO ORAL WITH IV CONTRAST STAT 10/19/2024 10:40 AM EDT Hydronephrosis, unspecified hydronephrosis type CREATININE ISTAT Routine 10/19/2024 10:35 AM EDT VA US LOWER EXTREMITY BILATERAL MAPPING PIEDAD 10/19/2024 9:27 AM EDT Leg swelling VA US CAROTID DUPLEX BILATERAL PIEDAD 10/19/2024 9:[address] CHEST WO CONTRAST PIEDAD 10/12/2024 9:31 AM EDT Coronary artery disease involving [place] coronary artery of [place] heart with angina pectoris from Last 3 Months Results * SCANNED EKG (11/07/2024 10:27 AM [...] DIAGNOSTIC IMAGING ORDERAB LES Final Result * TROPONIN-T HIGH SENSITIVITY BASELINE W/ REFLEX (11/07/2024 3:52 AM EDT) [id number]-aXyrpgmta-M 6 <22 ng/L 11/07/2024 4:13 AM EDT [facility] Blood VENOUS BLOOD / Unknown Venipuncture / Unknown 11/07/2024 3:52 AM EDT 11/07/2024 3:55 AM EDT Narrative [facility] - 11/07/2024 4:13 AM EDT Ingestion of josé miguel doses of biotin (>5 mg/day) taken within 8 hours of drawing blood sample can interfere with this immunoassay test. Mona Ndiaye MD CHEMISTRY ORDERABLES Final Res ult [facility] [address] [place] [address] * D-DIMER (11/07/2024 3:52 AM EDT) Pathologist [facility] D-Dimer 419 <=500 ng/mL FEU 11/07/2024 4:26 AM EDT [facility] Comment:This is an automated [...] AM EDT 11/07/2024 3:54 AM EDT Narrative [facility] - 11/07/2024 4:26 AM EDT For patients between the ages of 50 - 75, an age-adjusted D-Dimer cut-off in combination with non-high clinical probability may be considered for the exclusion of venous thromboembolism (calculation = age x 10). CARLOS ENRIQUE Barger, et al. [employer] Analyst Med. 2017;166(5):361-363 ANAID Contreras, et al. [employer] Analy[employer] Med. 2015;(163):701-711. Elizabeth M, et al. BERTIN. 2014;(11):1528-8082. us Mona Ndiaye MD HEMATOLOGY ORDERABLES Final Re sult [facility] [address] [facility] [place] [address] * (ABNORMAL) CBC WITH DIFF (11/07/2024 3:52 AM EDT) Pathologist [facility] WBC 13.1(H) 3.7 - 10.3 x10(3)/mcL 11/07/2024 3:57 AM EDT [facility] RBC 4.70 4.60 - 6.10 x10(6)/mcL 11/07/2024 3:57 AM EDT [facility] Hgb 14.2 13.7 - 17.5 g/dL 11/07/2024 3:57 AM EDT [facility] Hct 41.9 40.0 - 51.0 % 11/07/2024 3:57 AM EDT [facility] MCV 89.1 80.0 - 100.0 fL 11/07/2024 3:57 AM EDT [facility] MCH 30.2 26.0 - 34.0 pg 11/07/2024 3:57 AM EDT [facility] MCHC 33.9 30.7 - 35.5 g/dL 11/07/2024 3:57 AM EDT [facility] RDW 13.3 <=14.9 % 11/07/2024 3:57 AM EDT [facility] Platelet 281 155 - 369 x10(3)/mcL 11/07/2024 3:57 AM EDT [facility] MPV 9.1 8.8 - 12.5 fL 11/07/2024 3:57 AM EDT [facility] Neut Percent 72.7 % 11/07/2024 3:57 AM EDT [facility] Comment:Neutrophils equals s egs plus bands Imm Gran% 0.7 % 11/07/2024 3:57 AM EDT [facility] Comment:Automated count of m etamyelocytes, myelocytes and promyelocytes. Lymph Percent 16.9 % 11/07/2024 3:57 AM EDT [facility] [place] Percent 7.8 % 11/07/2024 3:57 AM EDT [facility] Eos Percent 1.4 % 11/07/2024 3:57 AM EDT [facility] Baso Percent 0.5 % 11/07/2024 3:57 AM EDT [facility] Neut # 9.5(H) 1.6 - 6.1 x10(3)/mcL 11/07/2024 3:57 AM EDT [facility] Comment:Neutrophils equals s egs plus bands IMMGRAN# 0.1 0.0 - 0.1 x10(3)/[facility] 11/07/2024 3:57 AM EDT [facility] Comment:Automated count of m etamyelocytes, myelocytes and promyelocytes. An absolute IG <0.1 is reported as 0.0. Lymph # 2.2 1.2 - 3.9 x10(3)/[facility] 11/07/2024 3:57 AM EDT [facility] [place] # 1.0(H) 0.3 - 0.9 x10(3)/[facility] 11/07/2024 3:57 AM EDT [facility] Eos# 0.2 0.0 - 0.5 x10(3)/[facility] 11/07/2024 3:57 AM EDT [facility] Baso # 0.1 0.0 - 0.1 x10(3)/[facility] 11/07/2024 3:57 AM EDT [facility] Blood VENOUS BLOOD / Unknown Venipuncture / Unknown 11/07/2024 3:52 AM EDT 11/07/2024 3:55 AM EDT us Mona Ndiaye MD HEMATOLOGY ORDERABLES Final Re sult [facility] [address] [place] [address] * NT PROBNP (11/07/2024 3:52 AM EDT) NT Pro-BNP 53 <=138 pg/mL 11/07/2024 4:13 AM EDT [facility] Blood VENOUS BLOOD / Unknown Venipuncture / Unknown 11/07/2024 3:52 AM EDT 11/07/2024 3:55 AM EDT Narrative [facility] - 11/07/2024 4:13 AM [...] Ndiaye MD CHEMISTRY ORDERABLES Final Res ult [facility] [address] [facility] [place] [address] * (ABNORMAL) COMPREHENSIVE METABOLIC PANEL (11/07/2024 3:52 AM EDT) Sodium 136 136 - 145 mmol/L 11/07/2024 4:13 AM EDT [facility] Potassium 4.5 3.5 - 5.0 mmol/L 11/07/2024 4:13 AM EDT [facility] Chloride 104 98 - 107 mmol/L 11/07/2024 4:13 AM EDT [facility] Total CO2 21(L) 22 - 29 mmol/L 11/07/2024 4:13 AM EDT [facility] Anion Gap 11 7 - 16 mmol/L 11/07/2024 4:13 AM EDT [facility] Calcium 9.5 8.6 - 10.4 mg/dL 11/07/2024 4:13 AM EDT [facility] Glucose Lvl 104(H) 70 - 99 mg/dL 11/07/2024 4:13 AM EDT [facility] BUN 18 6 - 20 mg/dL 11/07/2024 4:13 AM EDT [facility] Creatinine 1.24 0.67 - 1.30 mg/dL 11/07/2024 4:13 AM EDT [facility] Albumin 4.4 3.5 - 5.2 gm/dL 11/07/2024 4:13 AM EDT [facility] Total Protein 7.1 6.4 - 8.3 gm/dL 11/07/2024 4:13 AM EDT [facility] Bili Total 0.3 0.2 - 1.4 mg/dL 11/07/2024 4:13 AM EDT [facility] ALT 20 <=41 U/L 11/07/2024 4:13 AM EDT [facility] AST 20 <=40 U/L 11/07/2024 4:13 AM EDT [facility] Alk Phos 127 40 - 129 U/L 11/07/2024 4:13 AM EDT [facility] eGFR (CKD-EPIcr 2020) 71 >=60 mL/min/1.7 3 m2 11/07/2024 4:13 AM EDT [facility] Comment:Estimated GFR was ca lculated using the CKD-EPIcr (2020) equation refit without race. The equation is recommended by the National Kidney Foundation - [place] [employer] Nephrology Task Force. Blood VENOUS BLOOD / Unknown Venipuncture / Unknown 11/07/2024 3:52 AM EDT 11/07/2024 3:55 AM EDT us Mona Ndiaye MD CHEMISTRY ORDERABLES Final Res ult [facility] [address] [place] [address] * EK EKG 12 LEAD (11/07/2024 3:33 AM EDT) Anatomical Region Laterality Modality Electrocardiogra phy 11/07/2024 3:37 AM EDT Impressions 11/07/2024 7:56 AM EDT [place] [facility] Test Date: 2024-11-07 Pat Name: ALEX PUGH Department: DEPID Room: [facility] Gender: Male Consultant Electronics: Lanie : 1975 Requested By: MONA Chavez Order Number: [id number] Reading MD: Gala Huddleston DO Measurements Intervals Francisco Rate: 69 P: 13 TN: 151 QRS: 33 QRSD: 94 T: 54 QT: 388 QTc: 418 Interpretive Statements SINUS RHYTHM Electronically Signed On 11-07-2024 07:56:36 EDT by Gala Huddleston DO Narrative Procedure Note Gala Huddleston DO - 11/07/2024 [facility]ION [facility]: 2024-[facility]07 Pat Name: ALEX PUGH Department: DEPID Room: [facility] Gender: Male Consultant Electronics: Lanie : 1975 Requested By: MONA Chavez Order Number: [id number] Reading MD: Gala Huddleston DO Measurements Intervals Francisco Rate: 69 P: 13 TN: 151 QRS: 33 QRSD: 94 T: 54 QT: 388 QTc: 418 Interpretive Statements SINUS RHYTHM Electronically Signed On 11-07-2024 07:56:36 EDT by Gala Huddleston DO us Mona Ndiaye MD IMG ECG ORDERABLES Final Resul t * SCANNED RHYTHM STRIPS (10/30/2024 11:09 AM EDT) Anatomical Region Laterality Modality Other 10/30/2024 11:0 9 AM EDT us Unknown Provider IMG ECG ORDERABLES Final Result * PATHOLOGY TISSUE REQUEST (10/27/2024 2:22 PM EDT) CASE REPORT Surgical Pathology Case: [id number] Authorizing Provider: Patricia Ellison MD Collected: 10/27/2024 1422 Ordering Location: [facility] Received: 10/27/2024 1908 Pathologist: Tesha Love MD Specimen: Ureter, Left, left ureteral mass 11/02/2024 8:25 AM EDT [facility] CLINICAL HISTORY large ureteral mass occluding the lumen of the proximal/mid ureter biopsied x2 with netinol basket 11/02/2024 8:25 AM EDT [facility] FINAL DIAGNOSIS A. Ureteral mass, biopsy: - Non invasive Low-grade papillary urothelial carcinoma. - Negative for muscularis propria muscle 11/02/2024 8:25 AM EDT [facility] at [address] Ellison was notified on 11-02-24, HR Secure chat. This case has been seen in intradepartmental consultation with agreement./QL A urinary bladder biopsy synoptic was used in this case with tumor site indicated ureter proximal mid. 11/02/2024 8:25 AM EDT [facility] GROSS DESCRIPTION The specimen is received [...] [place] PA(ASCP) 10/30/2024 11/02/2024 8:25 AM EDT [facility] MICROSCOPIC DESCRIPTION The microscopic examination may have been rendered in whole, or in part, by analyzing high-resolution digital images (whole slide images) on the [employer] Digital Pathology platform validated at [facility]. 11/02/2024 8:25 AM EDT [facility] SYNOPTIC REPORT CHECKLIST URINARY BLADDER: Biopsy and [...] muscle): Not identified 11/02/2024 8:25 AM EDT [facility] EMBEDDED IMAGES 11/02/2024 8:25 AM EDT [facility] Tissue STRUCTURE OF LEFT URETER / Unknown 10/27/2024 2:22 PM EDT 10/27/2024 7:08 PM EDT us Patricia Ellison MD PATHOLOGY ORDERABLES Final R esult [facility] [address] [place], [place] [address] [phone] [facility] [address] [place] [address] * INTRAOP AIRWAY PLACEMENT (10/27/2024 2:06 PM EDT) Narrative [facility] - 10/27/2024 2:06 PM EDT Phuong Clark CRNA 10/27/2024 2:07 PM Intraop Airway Placement: Date/Time: 10/27/2024 2:06 PM Induction type: IV Mask size: Standard adult Pre-Oxygenation: BMI guided pre-O2 Mask ventilation: Not attempted Airway type: LMA Device size: 5 Secured by: Tape Placement verified: End tidal CO2 and Symmetric chest wall motion Condition: Atraumatic and Unchanged Insertion attempts: 1 Title: [employer] BATT[employer] TANK us Sherita Moya MD [place] ANESTHESIA Final R esult [facility] [address] [place] [id number] * NON-PORTRAIT ARTIST CYTOLOGY REQUEST (10/27/2024 2:03 PM EDT) Only the most recent of2 resultswithin the time period is included. CASE REPORT Non-gynecologic Cytology Case: [id number] Authorizing Provider: Patricia Ellison MD Collected: 10/27/2024 1403 Ordering Location: [facility] Received: 10/27/2024 1415 Pathologist: Jerome Hickman MD Specimen: Urethra, urine cytology 10/30/2024 1:34 PM EDT [facility] NON-PORTRAIT ARTIST CYTOLOGY FINAL DIAGNOSIS Catheterized urine, left ureter: - Negative for high-grade urothelial carcinoma. 10/30/2024 1:34 PM EDT [facility] at 1334 EDT EMBEDDED IMAGES 10/30/2024 1:34 PM EDT [facility] MICROSCOPIC DESCRIPTION Microscopic examination is performed and the findings corroborate the diagnosis. 10/30/2024 1:34 PM EDT [facility] Gross Description Urine, Rec'd 10ml of bloody fluid. (TP) 10/30/2024 1:34 PM EDT [facility] Urine URETHRAL STRUCTURE / Unknown 10/27/2024 2:03 PM EDT 10/27/2024 2:15 PM EDT us Patricia Ellison MD CYTOLOGY ORDERABLES Final Re sult [facility] [place] [address] * EC ECHOCARDIOGRAM COMPLETE W DOPPLER AND [...] pressure due to lackof tricuspid regurgitation jet. Logan Kenny MD IMG ECHO ORDERABLES Final Re sult * (ABNORMAL) SEP URINALYSIS POC (10/19/2024 2:29 PM EDT) UA Color POC Yellow Color 10/19/2024 2:31 PM EDT [facility] UA Appear POC Clear Clear 10/19/2024 2:31 PM EDT [facility] UA Gluc POC Negative Negative mg/dL 10/19/2024 2:31 PM EDT [facility] UA Bili POC Negative Negative 10/19/2024 2:31 PM EDT [facility] UA Ketones POC Negative Negative mg/dL 10/19/2024 2:31 PM EDT [facility] [place] UA SG POC 1.010 1.001 - 1.035 no units 10/19/2024 2:31 PM EDT [facility] UROLOGY [facility] UA Blood POC Trace-Lysed( A) Negative 10/19/2024 2:31 PM EDT [facility] UA pH POC 5.5 5.0 - 8.0 pH 10/19/2024 2:31 PM EDT [facility] UA Protein POC Negative Negative mg/dL 10/19/2024 2:31 PM EDT [facility] UA Urobilinogen POC 0.2 0.2, 1.0 10/19/2024 2:31 PM EDT [facility] UA Nitrite POC Negative Negative 10/19/2024 2:31 PM EDT [facility] UA Leuk Est POC Negative Negative 2:31 PM EDT [facility] Urine STRUCTURE OF URINARY TRACT PROPER / Unknown 10/19/2024 2:29 PM EDT 10/19/2024 2:31 PM EDT Patricia Ellison MD POINT OF CARE TEST ORDERABLE S Final Result [facility] [address] [place] [id number] * CT ABDOMEN PELVIS WO ORAL WITH [...] (FAST), 10/19/2024 10:40 AM CLINICAL HISTORY: N13.30-Unspecified [id number]. COMPARISON: None. PROCEDURE COMMENTS: Multi-detector CT scanning [...] (FAST), 10/19/2024 10:40 AM CLINICAL HISTORY: N13.30-Unspecified [id number]. COMPARISON: None. PROCEDURE COMMENTS: Multi-detector CT scanning [...] - 1.3 mg/dL 10/19/2024 10:39 AM EDT [facility] Blood BLOOD SPECIMEN / Unknown 10/19/2024 10:35 AM EDT 10/19/2024 10:39 AM EDT Logan Kenny MD POINT OF CARE TEST ORDERABLE [place] [address], [facility] [phone] * [place] US LOWER EXTREMITY BILATERAL MAPPING (10/19/2024 9:27 [...] through 8. Narrative Procedure Note Josafat Barnhart, - 10/19/2024 IMPRESSION Conclusions 1. There is no evidence of superficial vein thrombosis in thebilateral lower extremities. 2. The bilateral greater saphenous veins have been measured in zones 1 through 8. 3. The bilateral small saphenous veins have been measured in zones 5through 8. Logan Kenny MD [facility] VASCULAR ORDERABLES Nadiya l Result * [facility] US CAROTID DUPLEX BILATERAL (10/19/2024 9:20 AM [...] vertebral arteries. Narrative Procedure Note Josafat Barnhart, - 10/19/2024 IMPRESSION Conclusions * There is a right proximal internal carotid artery mildly obstructive lesion noted, with an estimated 1-39% stenosis. * There is a left proximal internal carotid artery moderatelyobstructive lesion noted, with an estimated 40-59% stenosis. * Antegrade flow visualized in the bilateral vertebral arteries. 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 PROCEDURE COMMENTS: Multi-detector CT of [...] disease of nativecoronary artery with unspecified angina [id number] COMPARISON: None. PROCEDURE COMMENTS: Multi-detector CT of [...] MD IMG CT ORDERABLES Final Resu lt from Last 3 Months Additional Health Concerns Active Problems Noted Date Diagnosed Date Autogenerated Problem 11/07/2024 Insurance JOSE PPO JOSE PPO Care Teams Hotel Lobby Concierge Relationship Specialty Start Date End Date Reyna Perez, DEMETRIUS [address] [place] [address] PCP - General Nurse Practitioner 10/27/24
--- OUTSIDE RECORDS SUMMARY | 2024-11-09 03:55 | XMS_ITS | Clinical Summary ---
Author Organization Healthcare Address [address] [place] [address] Care Team Providers Care 21 Dealer Name Role Phone ChrisReyna mccoy DEMETRIUS Primary Care Provider [phone] Encounters Date Type Department Care Team Description 09/25/2024 Orders Only [facility] Madison Augusto [address] [place] [address] Michelle Lopez RN Coronary artery disease involving [place] heart with angina pectoris, unspecified vessel or lesion type (CMS/HCC) (Primary Dx); Non-ST elevation (NSTEMI) myocardial infarction (CMS/HCC) from Last 3 Months Social History Tobacco Use Types Packs/Day Years Used Date Smoking Tobacco: Never Assessed Sex and Gender Information Value Date Recorded Sex Assigned at Not on file Legal Sex Male 3:50 PM EDT Gender Identity Not on file Sexual Orientation Not on file Plan of Treatment Health Maintenance Due Date Last Done Comments [facility]-Depression Screening 1974 [facility]-HIV Screening 1974 [facility]-Hepatitis C Screening 1974 [facility]-Infant/Child/Adol SDOH Screenings 1974 [facility]- SDOH Screenings 1992 [facility]-Adult SDOH Screenings 1992 [facility]-Hepatitis B Vaccines (1 of 3 - 19+ 3-dose series) 1993 [facility]-DTaP,Tdap,and Td Vaccine s (1 - Tdap) 07/12/1996 07/11/1996 CT Colonography 07/27/2019 Colonoscopy 07/27/2019 FIT-DNA 07/27/2019 FIT 07/27/2019 FOBT 07/27/2019 Sigmoidoscopy 07/27/2019 [facility]-Colorectal Cancer Screening 07/27/2019 [id number]-[id number]-54 Vaccine (1 - 20 24-25 season) 2024 [facility]-Pneumococcal Vaccine: 50 + Years (1 of 1 - PCV) 2024 [facility]-Zoster Vaccines (1 of 2) 2024 [facility]-Influenza Vaccine (Seas[place] n Ended) 2025 HPV Vaccines Aged Out No longer eligi ble based on patient's age to complete this topic [facility]-HIB Vaccines Aged Out No longer e ligible based on patient's age to complete this topic [facility]-Hepatitis A Vaccines Aged Out No longer eligible based on patient's age to complete this topic [facility]-IPV Vaccines Aged Out No longer e ligible based on patient's age to complete this topic [facility]-Rotavirus Vaccines Aged Out No lo nger eligible based on patient's age to complete this topic Insurance [place], [place] [id number] [place] [address] Care Teams 21 Dealer Relationship Specialty Start Date End Date Reyna Perez APRN [address] [place] [address] PCP - General 09/15/22
--- NOTE | 2024-11-09 03:56 | CT_ITS ---
PROCEDURE INFORMATION: Exam: CTA Chest With Contrast Exam date and time: 11/09/2024 4:37 AM Age: 49 years old Clinical indication: Shortness of breath; Additional info: SOA w/ known kidney CA TECHNIQUE: Imaging protocol: Computed tomographic angiography of the chest with contrast. Exam focused on the arteries. 3D rendering (Not supervised by radiologist): MIP and/or 3D reconstructed images were created by the technologist. Radiation optimization: All CT scans at this facility use at least one of these dose optimization techniques: automated exposure control; mA and/or kV adjustment per patient size (includes targeted exams where dose is matched to clinical indication); or iterative reconstruction. Contrast material: ISOVUE; Contrast volume: 70 ml; Contrast route: INTRAVENOUS (IV); COMPARISON: CR XR CHEST 2V 09/18/2024 5:38 PM FINDINGS: Pulmonary arteries: Normal. No pulmonary emboli. Aorta: Unremarkable. No aortic aneurysm. No aortic dissection. Lungs: Unremarkable. No consolidation. No masses. Pleural spaces: Unremarkable. No pneumothorax. No pleural effusion. Heart: Unremarkable. No cardiomegaly. No pericardial effusion. Lymph nodes: Unremarkable. No enlarged lymph nodes. Kidneys: Abnormal cystic structure involving the superior pole left kidney. Bones/joints: Unremarkable. No acute fracture. Soft tissues: Unremarkable. IMPRESSION: 1. Unremarkable examination. There is no pulminary embolus, aortic dissection, or pneumonia. 2. Abnormal cystic structure involving the superior pole left kidney. This is consistent with the stated history of renal cancer.
--- OUTSIDE RECORDS SUMMARY | 2024-11-09 03:56 | XMS_ITS | Encounter Summary ---
Author Organization [place] [address] Care Team Providers Care Newspaper Vendor Name Role Phone Unavailable Primary Care Provider Unavailabl e Reason for Visit * Reason Onset Date Comments Patient Question 10/12/2024 Encounter Details Date Type Department Care Team (Late st Contact Info) Description 10/12/2024 Telephone [facility] Cardiac Surgeons [place] [address] [facility] [address] [place] [address] Raine Guerrero MA Patient Question Social History Tobacco Use Types Packs/Day Years Used Date Smoking Tobacco: Never Assessed Sex and Gender Information Value Date Recorded Sex Assigned at Not on file Legal Sex Male 8:24 PM EDT Gender Identity Not on file Sexual Orientation Not on file documented as of this encounter Miscellaneous Notes * Telephone Encounter - Raine Guerrero MA - 10/12/2024 11:32 AM EDT Patients called concerned about her husbands CT Chest. I will have Dr. Kenny review this and will call her once I hear back from him documented in this encounter Plan of Treatment Upcoming Encounters Date Type Department Care Team (Latest Contact Info) Description 11/23/2024 12:45 PM EDT Appointment EDG PRE-ADMIT TESTING [facility] [place] [address] 12/01/2024 11:30 AM EDT Hospital Encounter [facility] [address] [place] [address] Sadi Haney MD [address] [facility] [address] [place] [address] 12/01/2024 11:30 AM EDT Anesthesia Event [facility] [address] [place] [address] Kathy Dong APRN 1 [facility] [place] [id number] 12/01/2024 11:30 AM EDT - 12/01/2024 4:42 PM EDT Surgery [facility] [address] [place] [address] Sadi Haney MD [address] [facility] [address] [place] [address] DAVINCI ROBOTIC RADICAL NEPHRECTOMY Scheduled Procedures Name Priority Associated Diagnoses Date/Ti ia DAVINCI ROBOTIC RADICAL NEPHRECTOMY Ureteral mass 12/01/2024 11:30 AM EDT CYSTOSCOPY TRANSURETHRAL RESECTION BLADDER TUMOR - FULGURATION/EVACUATION OF CLOT Ureteral mass 12/01/2024 11:30 AM EDT documented as of this encounter Visit Diagnoses Not on filedocumented in this encounter
--- OUTSIDE RECORDS SUMMARY | 2024-11-09 03:56 | XMS_ITS | Encounter Summary ---
Author Organization [place] [address] Care Team Providers Care Developer Automatic Name Role Phone Reyna Perez Jonathan ROMO Primary Care Provider [phone] Encounter Details Date Type Department Care Team (Late st Contact Info) Description 10/12/2024 Results Follow-Up [facility] Cardiac Surgeons [place] [address] [facility] [address] [place] [address] CHEST WO CONTRAST Social History Tobacco Use Types Packs/Day [...] PM EDT Appointment EDG PRE-ADMIT TESTING One [facility] [address] [place] [address] 12/01/2024 11:30 AM EDT Hospital Encounter [facility] [address] [place] [address] aSdi Haney MD [address] [facility] [address] [place] [address] 12/01/2024 11:30 AM EDT Anesthesia Event [facility] [address] [place] [facility] Kathy Dong APRN [address] [facility] [address] [place] [address] 12/01/2024 11:30 AM EDT - 12/01/2024 4:42 PM EDT Surgery [facility] [address] [place] [address] Sadi Haney MD [address] [facility] [address] [place] [address] DAVINCI ROBOTIC RADICAL NEPHRECTOMY Scheduled Procedures Name Priority Associated Diagnoses Date/Ti az DAVINCI ROBOTIC RADICAL NEPHRECTOMY Ureteral mass 12/01/2024 11:30 AM EDT CYSTOSCOPY TRANSURETHRAL RESECTION BLADDER TUMOR - FULGURATION/EVACUATION OF CLOT Ureteral mass 12/01/2024 11:30 AM EDT documented as of this encounter Visit Diagnoses Not on filedocumented in this encounter Care Teams Developer Automatic Relationship Specialty Start Date End Date Reyna Perez APRN [address] [facility] [address] [place] [address] PCP - General Nurse Practitioner 10/27/24 documented as of this encounter
--- OUTSIDE RECORDS SUMMARY | 2024-11-09 03:56 | XMS_ITS | Encounter Summary ---
Author Organization [place] [address] Care Team Providers Care Internet Marketing Consultant Name Role Phone Unavailable Primary Care Provider Unavailabl e Reason for Referral * Consultation (Emergency) - Authorization Not Needed Specialty Diagnoses / Procedures Referred By Juan R t Referred To Contact Urology Diagnoses Abnormal CT scan Procedures SC OFFICE/OUTPATIENT NEW MODERATE MDM 45 MINUTES Christian Nicholas MD [address] [place] [address] Phone: tel: fax: [facility] [address] [address] Phone: tel: fax: Referral ID Status Reason Start Date Expiration Date Visits Requested Visits Authorized [id number] Authorization Not Needed 10/19/2024 10/19/2025 99 99 Encounter Details Date Type Department Care Team (Late st Contact Info) Description 10/19/2024 Orders Only [facility] Cardiac Surgeons [address] [place] [address] Christian Nicholas MD [address] [place] [address] scan (Primary Dx) Social History Tobacco Use Types [...] PM EDT Appointment EDG PRE-ADMIT TESTING One [facility] [place] [address] 12/01/2024 11:30 AM EDT Hospital Encounter [facility] [address] [place] [address] Sadi Haney MD [address] [place] [address] [place], [place] [id number] 12/01/2024 11:30 AM EDT Anesthesia Event [facility] [address] [place] [address] Kathy Dong APRN [address] [facility] [place] [address] 12/01/2024 11:30 AM EDT - 12/01/2024 4:42 PM EDT Surgery [facility] [address] [place] [address] Sadi Haney MD [address] [place] [address] [place] [address] DAVINCI ROBOTIC RADICAL NEPHRECTOMY Scheduled Procedures Name Priority Associated Diagnoses Date/Ti dc DAVINCI ROBOTIC RADICAL NEPHRECTOMY Ureteral mass 12/01/2024 11:30 AM EDT CYSTOSCOPY TRANSURETHRAL RESECTION BLADDER TUMOR - FULGURATION/EVACUATION OF CLOT Ureteral mass 12/01/2024 11:30 AM EDT Scheduled Referrals Name Type Priority Associated Diagnoses Orde r Schedule AMB REFERRAL TO UROLOGY Outpatient Referral STAT Abnormal CT scan Ordered: 10/19/2024 documented as of this encounter Visit Diagnoses Diagnosis Abnormal CT scan- Primary Other nonspecific (abnormal) findings on radiological and other examinations of body structure Ureteral mass Unspecified disorder of kidney and ureter documented in this encounter
--- OUTSIDE RECORDS SUMMARY | 2024-11-09 03:56 | XMS_ITS | Encounter Summary ---
Author Organization [place] [address] Care Team Providers Care Hot Plate Plywood Press Laborer Name Role Phone Reyna Perez HEALTHCARE ECONOMICS CONSULTANT Primary Care Provider [phone] Reason for Visit * Reason Onset Date Comments Dizziness 10/31/2024 Encounter Details Date Type Department Care Team (Late st Contact Info) Description 10/31/2024 Telephone [facility] Cardiac Surgeons [address] [place] [address] Deb Woodall APRN [address] [place] [address] Dizziness Social History Tobacco Use Types Packs/Day Years [...] encounter Miscellaneous Notes * Telephone Encounter - Deb Woodall APRN - 10/31/2024 11:38 AM EDT Pt and called. Having vague symptoms, feeling off since Wednesday. Had biopsy of ureter last week. No fever, N/V. Denies room spinning. BP and HR reportedly normal. Last dose of narcotic pain medicine yesterday when ureteral stent removed. They are concerned with minimal symptoms leading to diagnosis of ASHD. And are these different sx of same etiology. Have called PCP and recommended go to ED. They would like to wait for that. Cautioned what to watch for and when to go to ED. Advised increased fluids and rest today. documented in this encounter Plan of Treatment Upcoming Encounters Date Type Department Care Team (Latest Contact Info) Description 11/23/2024 12:45 PM EDT Appointment EDG PRE-ADMIT TESTING One [facility] [place] [address] 12/01/2024 11:30 AM EDT Hospital Encounter [facility] [address] [place] [address] Sadi Haney MD [address] [place] [address] [place] [address] 12/01/2024 11:30 AM EDT Anesthesia Event [facility] [address] [place] [address] Kathy Dong APRN [address] [facility] [address] 12/01/2024 11:30 AM EDT - 12/01/2024 4:42 PM EDT Surgery [facility] [address] [place] [address] Sadi Haney MD [address] [place] [address] [place] [address] DAVINCI ROBOTIC RADICAL NEPHRECTOMY Scheduled Procedures Name Priority Associated Diagnoses Date/Ti oh DAVINCI ROBOTIC RADICAL NEPHRECTOMY Ureteral mass 12/01/2024 11:30 AM EDT CYSTOSCOPY TRANSURETHRAL RESECTION BLADDER TUMOR - FULGURATION/EVACUATION OF CLOT Ureteral mass 12/01/2024 11:30 AM EDT documented as of this encounter Visit Diagnoses Diagnosis ASHD (arteriosclerotic heart disease)- Primary Coronary atherosclerosis of unspecified type of vessel, [place] or graft Ureteral mass Unspecified disorder of kidney and ureter documented in this encounter Care Teams Hot Plate Plywood Press Laborer Relationship Specialty Start Date End Date Reyna Perez APRN [address] [facility] [address] [place] [phone] PCP - General Nurse Practitioner 10/27/24 documented as of this encounter
--- OUTSIDE RECORDS SUMMARY | 2024-11-09 03:56 | XMS_ITS | Encounter Summary ---
Author Organization [place] [address] Care Team Providers Care Pelt Dropper Name Role Phone Reyna Perez DEMETRIUS Primary Care Provider [phone] Reason for Visit * Reason Onset Date Comments Medication Refill 10/27/2024 Encounter Details Date Type Department Care Team (Late st Contact Info) Description 10/27/2024 Nurse Triage [facility] Nurse Now [address] [place] [address] Kristine Ventura, RN Social History Tobacco Use Types Packs/Day [...] encounter Miscellaneous Notes * Telephone Encounter - Gala Loya RN - 10/27/2024 6:19 PM EDT Pt notified script was sent to [facility] * Telephone Encounter - Kristine Ventura RN - 10/27/2024 5:51 PM EDT Nurse Triage Call -Chief Complaint: biopsy on kidney today. was told that he would have pain medicine sent to pharmacy today. not sent to pharmacy pharmacy closes at 6pm. pain already 12/17 [facility] open till 8pm [phone] [address] [facility]. -Reported by: Spouse/Significant Other -Vitals: No vitals obtained on this call -Disposition per protocol: call PCP when office is open -Follow up/Concerns: message sent to railroad commissioner provider I'll send in oxy asked provider if he noted closed pharmacy and alternative pharmacy. hand off given to Gala Bryant RN via teams Reason for Disposition Caller requesting a CONTROLLED substance prescription refill (e.g., narcotics, ADHD medicines) Protocols used: Medication Refill and Renewal Call-A-AH documented in this encounter Plan of Treatment Upcoming Encounters Date Type Department Care Team (Latest Contact Info) Description 11/23/2024 12:45 PM EDT Appointment EDG PRE-ADMIT TESTING One [facility] [place] [address] 12/01/2024 11:30 AM EDT Hospital Encounter [facility] [address] [place] [facility] Sadi Haney MD [address] [place] [address] [place] [address] 12/01/2024 11:30 AM EDT Anesthesia Event [facility] [address] [place] [address] Kathy Dong APRN 1 [facility] [place] [address] 12/01/2024 11:30 AM EDT - 12/01/2024 4:42 PM EDT Surgery [facility] [address] [place] [facility] Sadi Haney MD [address] [place] [address] [address] [place] [address] DAVINCI ROBOTIC RADICAL NEPHRECTOMY Scheduled Procedures Name Priority Associated Diagnoses Date/Ti de DAVINCI ROBOTIC RADICAL NEPHRECTOMY Ureteral mass 12/01/2024 11:30 AM EDT CYSTOSCOPY TRANSURETHRAL RESECTION BLADDER TUMOR - FULGURATION/EVACUATION OF CLOT Ureteral mass 12/01/2024 11:30 AM EDT documented as of this encounter Visit Diagnoses Not on filedocumented in this encounter Care Teams Pelt Dropper Relationship Specialty Start Date End Date Reyna Perez APRN [address] [place] [phone] PCP - General Nurse Practitioner 10/27/24 documented as of this encounter
--- OUTSIDE RECORDS SUMMARY | 2024-11-09 03:56 | XMS_ITS | Encounter Summary ---
Author Organization [facility] [place] [address] Care Team Providers Care Mobile Battery Technician Name Role Phone Unavailable Primary Care Provider Unavailabl e Encounter Details Date Type Department Care Team (Latest Contact Info) Description 10/25/2024 Travel Social History Tobacco Use Types Packs/Day [...] PM EDT Appointment EDG PRE-ADMIT TESTING One [facility] [address] [place] [address] 12/01/2024 11:30 AM EDT Hospital Encounter [facility] [address] [place] [facility] Sadi Haney MD [address] [facility] [address] [place] [address] 12/01/2024 11:30 AM EDT Anesthesia Event [facility] [address] [place] [address] Kathy Dong APRN 1 [facility] [place] [address] 12/01/2024 11:30 AM EDT - 12/01/2024 4:42 PM EDT Surgery [facility] [address] [place] [address] Sadi Haney MD [address] [facility] [address] [place] [phone] DAVINCI ROBOTIC RADICAL NEPHRECTOMY Scheduled Procedures Name Priority Associated Diagnoses Date/Ti id DAVINCI ROBOTIC RADICAL NEPHRECTOMY Ureteral mass 12/01/2024 11:30 AM EDT CYSTOSCOPY TRANSURETHRAL RESECTION BLADDER TUMOR - FULGURATION/EVACUATION OF CLOT Ureteral mass 12/01/2024 11:30 AM EDT documented as of this encounter Visit Diagnoses Not on filedocumented in this encounter
--- OUTSIDE RECORDS SUMMARY | 2024-11-09 03:56 | XMS_ITS | Encounter Summary ---
Author Organization [place] [address] Care Team Providers Care Websphere Commerce Developer Name Role Phone Reyna Perez DEMETRIUS Primary Care Provider [phone] Reason for Visit * Reason Onset Date Comments Post-op Call 10/28/2024 Encounter Details Date Type Department Care Team (Late st Contact Info) Description 10/28/2024 Nurse Triage [facility] Nurse Now [address] [place] [address] Tamar Alan, LAY Social History Tobacco Use Types Packs/Day Years [...] Telephone Encounter - Radha Lange RMA - 10/30/2024 4:00 PM EDT Informed pt. * Telephone Encounter - Shania Wu APRN - 10/30/2024 3:35 PM EDT According to Dr. Kim he had to hold his blood thinner until today. Can resume today make sure he drinks plenty of water at least 2.5 L or more * Telephone Encounter - Marleni Mendez RN - 10/30/2024 3:29 PM EDT calling again for update. * Telephone Encounter - Kanu Whitlock MA - 10/30/2024 3:10 PM EDT Please advise. * Telephone Encounter - Marleni Mendez RN - 10/30/2024 1:12 PM EDT calling for update on results and if they should resume blood thinners. * Telephone Encounter - Tamar Alan RN - 10/28/2024 10:05 AM EDT Per test lead application testing, hold blood thinner until Wednesday and call Dr. Ibrahim notified. * Telephone Encounter - Tamar Alan RN - 10/28/2024 9:44 AM EDT Nurse Triage Call -Chief Complaint: Patient had a procedure yesterday, CYSTOSCOPY,URETEROSCOPY,LASER LITHOTRIPSY,STENT EXCHANGE is asking if its ok for him to restart his blood thinner today even though he is still urinating blood. -Reported by: Spouse/Significant Other -Vitals: No vitals obtained on this call -Disposition per protocol: call PCP now -Follow up/Concerns: message sent to test lead application testing provider Reason for Disposition [1] Caller has URGENT question AND [2] triager unable to answer question Protocols used: Post-Op Symptoms and [id number] documented in this encounter Plan of Treatment Upcoming Encounters Date Type Department Care Team (Latest Contact Info) Description 11/23/2024 12:45 PM EDT Appointment EDG PRE-ADMIT TESTING One [facility] [address] [place] [address] 12/01/2024 11:30 AM EDT Hospital Encounter [facility] [address] [place] [address] Sadi Haney MD [address] [facility] [address] [place] [address] 12/01/2024 11:30 AM EDT Anesthesia Event [facility] [address] [place] [address] Kathy Dong APRN 1 [facility] [place] [address] 12/01/2024 11:30 AM EDT - 12/01/2024 4:42 PM EDT Surgery [facility] [address] [place] [address] Sadi Haney MD [address] [facility] [address] [place] [address] DAVINCI ROBOTIC RADICAL NEPHRECTOMY Scheduled Procedures Name Priority Associated Diagnoses Date/Ti me DAVINCI ROBOTIC RADICAL NEPHRECTOMY Ureteral mass 12/01/2024 11:30 AM EDT CYSTOSCOPY TRANSURETHRAL RESECTION BLADDER TUMOR - FULGURATION/EVACUATION OF CLOT Ureteral mass 12/01/2024 11:30 AM EDT documented as of this encounter Visit Diagnoses Not on filedocumented in this encounter Care Teams Websphere Commerce Developer Relationship Specialty Start Date End Date Reyna Perez, TOE [employer]MER [employer] [address] [facility] [address] [place] [id number] PCP - General Nurse Practitioner 10/27/24 documented as of this encounter
--- OUTSIDE RECORDS SUMMARY | 2024-11-09 03:56 | XMS_ITS | Encounter Summary ---
Author Organization [facility] [address] Care Team Providers Care Hospital Insurance Representative Name Role Phone Reyna Perez PAY AGENT Primary Care Provider [phone] Encounter Details Date Type Department Care Team (Latest Contact Info) Description 10/27/2024 Travel Social History Tobacco Use Types Packs/Day [...] TESTING One [facility] [place] [address] 12/01/2024 11:30 AM EDT Hospital Encounter [facility] [address] [place] [facility] [place] Sadi Haney MD [address] [facility] [address] [place] [address] 12/01/2024 11:30 AM EDT Anesthesia Event [facility] [address] [place] [address] Kathy Dong APRN 1 [facility] [place] [address] 12/01/2024 11:30 AM EDT - 12/01/2024 4:42 PM EDT Surgery [facility] [address] [place] [address] Sadi Haney MD [address] [facility] [address] [place] [address] DAVINCI ROBOTIC RADICAL NEPHRECTOMY Scheduled Procedures Name Priority Associated Diagnoses Date/Ti wa DAVINCI ROBOTIC RADICAL NEPHRECTOMY Ureteral mass 12/01/2024 11:30 AM EDT CYSTOSCOPY TRANSURETHRAL RESECTION BLADDER TUMOR - FULGURATION/EVACUATION OF CLOT Ureteral mass 12/01/2024 11:30 AM EDT documented as of this encounter Visit Diagnoses Not on filedocumented in this encounter Care Teams Hospital Insurance Representative Relationship Specialty Start Date End Date Reyna Perez APRN 12[address] [facility] [address] [facility] [place] [address] PCP - General Nurse Practitioner 10/27/24 documented as of this encounter
--- OUTSIDE RECORDS SUMMARY | 2024-11-09 03:56 | XMS_ITS | Encounter Summary ---
Author Organization [place] [address] Care Team Providers Care Site Project Manager Name Role Phone Reyna Perez APRN Primary Care Provider [phone] Reason for Visit * Reason Comments Medication Refill Encounter Details Date Type Department Care Team (Late st Contact Info) Description 10/19/2024 Refill SEP Infectious Disease EDG [address] [facility] [address] [place] [address] Janet Perez APRN 1 [facility] [address] [place] [address] Medication Refill Social History Tobacco Use Types Packs/Day Years [...] One [facility] [place] [address] 12/01/2024 11:30 AM EDT Hospital Encounter [facility] [address] [place] [address] Sadi Haney MD [address] [facility] [address] [place] [address] 12/01/2024 11:30 AM EDT Anesthesia Event [facility] [address] [place] [address] Kathy Dong APRN 1 [facility] [place] [address] 12/01/2024 11:30 AM EDT - 12/01/2024 4:42 PM EDT Surgery [facility] [address] [place] [address] Sadi Haney MD [address] [facility] [address] [place] [address] DAVINCI ROBOTIC RADICAL NEPHRECTOMY Scheduled Procedures Name Priority Associated Diagnoses Date/Ti ct DAVINCI ROBOTIC RADICAL NEPHRECTOMY Ureteral mass 12/01/2024 11:30 AM EDT CYSTOSCOPY TRANSURETHRAL RESECTION BLADDER TUMOR - FULGURATION/EVACUATION OF CLOT Ureteral mass 12/01/2024 11:30 AM EDT documented as of this encounter Visit Diagnoses Not on filedocumented in this encounter Care Teams Site Project Manager Relationship Specialty Start Date End Date Reyna Perez, VP PUBLIC RELATIONS 12[address] [facility] [address] [place] [address] PCP - General Nurse Practitioner 10/27/24 documented as of this encounter
--- OUTSIDE RECORDS SUMMARY | 2024-11-09 03:56 | XMS_ITS | Encounter Summary ---
Author Organization [place] [address] Care Team Providers Care Guest Attendant Name Role Phone Unavailable Primary Care Provider Unavailabl e Encounter Details Date Type Department Care Team (Late st Contact Info) Description 10/12/2024 Orders Only [facility] [place] [address] [facility] [address] [place] [address] Logan Kenny MD [address] [facility] [address] Hydronephrosis, unspecified hydronephrosis type (Primary Dx) Social History Tobacco Use Types [...] One [facility] [place] [address] 12/01/2024 11:30 AM EDT Hospital Encounter [facility] [address] [place] [address] Sadi Haney MD [address] [facility] [address] [place] [id number] 12/01/2024 11:30 AM EDT Anesthesia Event [facility] [address] [place] [address] Kathy Dong APRN 1 [facility] [address] 12/01/2024 11:30 AM EDT - 12/01/2024 4:42 PM EDT Surgery [facility] [address] [place] [address] Sadi Haney MD [address] 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
--- OUTSIDE RECORDS SUMMARY | 2024-11-09 03:56 | XMS_ITS | Encounter Summary ---
Author Organization [place] [address] Care Team Providers Care Software Quality Tester Name Role Phone Reyna Perez DEMETRIUS Primary Care Provider [phone] Reason for Visit * Reason Onset Date Comments Surgery Scheduling 11/07/2024 Encounter Details Date Type Department Care Team (Late st Contact Info) Description 11/07/2024 Telephone SEP Nurse Now [facility] [place] [place] [address] Cheyanne Rain RN Surgery Scheduling Social History Tobacco Use Types Packs/Day Years [...] Assessment Author No Risk 11/07/2024 3:23 AM EDTommy Lawton RN * [place] Suicide Severity Rating Scale (Q shift for moderate and high) Question Answer Date of Assessment Author 1. In the past month, have y ou wished you were or wished you could go to sleep and not wake up? 0 11/07/2024 3:23 AM Tommy Guajardo , LAY 2. In the past month, have y ou actually had any thoughts of killing yourself? (If no, skip to question 6) 0 11/07/2024 3:23 AM Tommy Guajardo , LAY 6. Have you ever done anythi ng, started to do anything, or prepared to do anything to end your life? 0 11/07/2024 3:23 AM EDT Tommy Lugo , RN documented as of this encounter Miscellaneous Notes * Telephone Encounter - Cheyanne Rain RN - 11/07/2024 12:12 PM EDT Pt called to discuss sooner date for urology surgery. Spoke with Radha she is working with to get that together will have a date by end of the afternoon. Pt aware. documented in this encounter Plan of Treatment Upcoming Encounters Date Type Department Care Team (Latest Contact Info) Description 11/23/2024 12:45 PM EDT Appointment EDG PRE-ADMIT TESTING [place] [address] 12/01/2024 11:30 AM EDT Hospital Encounter [facility] [address] [place] [address] Sadi Haney MD [address] [place] [address] [address] [place] [address] 12/01/2024 11:30 AM EDT Anesthesia Event [facility] [address] [place] [id number] Kathy Dong APRN 1 [facility] [place] [address] 12/01/2024 11:30 AM EDT - 12/01/2024 4:42 PM EDT Surgery [facility] [address] [place] [address] Sadi Haney MD [address] [facility] [address] [place] [address] DAVINCI ROBOTIC RADICAL NEPHRECTOMY Scheduled Procedures Name Priority Associated Diagnoses Date/Ti fl DAVINCI ROBOTIC RADICAL NEPHRECTOMY Ureteral mass 12/01/2024 [...] documented as of this encounter Care Teams Software Quality Tester Relationship Specialty Start Date End Date Reyna Perez, DEMETRIUS [address] [place] [address] [address] [place] [phone] PCP - General Nurse Practitioner 10/27/24 documented as of this encounter
--- OUTSIDE RECORDS SUMMARY | 2024-11-09 03:56 | XMS_ITS | Encounter Summary ---
Author Organization [place] [address] Care Team Providers Care Accounts Payable Accountant Name Role Phone Unavailable Primary Care Provider Unavailabl e Reason for Referral * Vascular Imaging (Urgent) - Closed Specialty Diagnoses / Procedures Referred By Contac t Referred To Contact Radiology Diagnoses Leg swelling Procedures [facility] LOWER EXTREM[facility] BIL[facility]AL MAPPING Logan Kenny MD [address] [place] [address] [place] [address] Phone: tel: fax: Referral ID Status Reason Start Date Expiration Date Visits Re quested Visits Authorized [id number] Closed 10/10/2024 10/10/2026 1 1 * Vascular Imaging (Urgent) - Closed Specialty Diagnoses / Procedures Referred By Contac t Referred To Contact Radiology Diagnoses Bruit Procedures [facility] CAROTID DUPLEX BILATERAL Logan Kenny MD [address] [place] [address] [place] [address] Phone: tel: fax: Referral ID Status Reason Start Date Expiration Date Visits Re quested Visits Authorized [id number] Closed 10/10/2024 10/10/2026 1 1 * Echo (Urgent) - Closed Specialty Diagnoses / Procedures Referred By Contac t Referred To Contact Radiology Diagnoses SOB (shortness of breath) Procedures EC ECHOCARDIOGRAM COMPLETE W DOPPLER AND COLOR FLOW MAPPING Logan Kenny MD [address] [place] [address] [place] [address] Phone: tel: fax: Referral ID Status Reason Start Date Expiration Date Visits Re quested Visits Authorized [id number] Closed 10/10/2024 10/10/2026 1 1 * MRI/CAT Scan (Urgent) - Closed Specialty Diagnoses / Procedures Referred By Contac t Referred To Contact Radiology Diagnoses 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 Procedures CT CHEST WO CONTRAST Logan Kenny MD [address] [place] [address] [place] [address] Phone: tel: fax: Referral ID Status Reason Start Date Expiration Date Visits Re quested Visits Authorized [id number] Closed 10/10/2024 10/10/2025 1 1 Encounter Details Date Type Department Care Team (Late st Contact Info) Description 10/10/2024 Orders Only [facility] [place] [address] [place] [address] [address] [place] [id number] Logan Kenny MD [address] [place] [address] [place] [address] Bruit (Primary Dx); Leg swelling; SOB (shortness of breath); 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 [address] 12/01/2024 11:30 AM EDT Hospital Encounter [facility] [address] [place] [address] Sadi Haney MD [address] [facility] [address] [place] [id number] 12/01/2024 11:30 AM EDT Anesthesia Event [facility] [address] [place] [address] Kathy Dong APRN 1 [facility] [place] [id number] 12/01/2024 11:30 AM EDT - 12/01/2024 4:42 PM EDT Surgery [facility] [address] 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 Logan Kenny MD [facility] ECHO ORDERABLES Final Re sult * [facility] LOWER EXTREM[facility] BILATERAL MAPPING (10/19/2024 9:27 AM [...] in zones 5through 8. Logan Kenny MD [facility] VASCULAR ORDERABLES Nadiya l Result * [facility] CAROTID DUPLEX BILATERAL (10/19/2024 9:20 AM [...] the bilateral vertebral arteries. Logan Kenny MD [facility] VASCULAR ORDERABLES Nadiya l [...] AM CLINICAL HISTORY: I25.119-Atherosclerotic heart disease of [place]or[place] coronary artery with unspecified angina [id number] COMPARISON: None. PROCEDURE COMMENTS: Multi-detector CT of [...] disease of nativecoronary artery with unspecified angina [id number] COMPARISON: None. PROCEDURE COMMENTS: Multi-detector CT of [...] documented in this encounter Visit Diagnoses Diagnosis Bruit- Primary Other symptoms involving cardiovascular system Leg swelling Swelling of limb SOB (shortness of breath) Shortness of breath 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 Leg swelling Swelling of limb Bruit Other symptoms involving cardiovascular system SOB (shortness of breath) Shortness of breath Ureteral mass Unspecified disorder of kidney and ureter documented in this encounter
--- OUTSIDE RECORDS SUMMARY | 2024-11-09 03:56 | XMS_ITS | Encounter Summary ---
Author Organization Healthcare Address [address] 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, unspecified vessel or lesion type (CMS/HCC) (Primary Dx); Non-ST elevation (NSTEMI) myocardial infarction (CMS/HCC) Social History Tobacco Use Types Packs/Day Years Used Date Smoking Tobacco: Never Assessed Sex and Gender Information Value Date Recorded Sex Assigned at Not on file Legal Sex Male 3:50 PM EDT Gender Identity Not on file Sexual Orientation Not on file documented as of this encounter Plan of Treatment Scheduled Referrals Name Type Priority Associated Diagnoses Order Schedule Ambulatory referral to Cardiac Surgery Outpatient Referral Routine 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, unspecified vessel or lesion type (CMS/HCC) Non-ST elevation (NSTEMI) myocardial infarction (CMS/HCC) 1 Occurrences starting 09/25/2024 until 03/28/2026 documented as of this encounter Visit Diagnoses Diagnosis 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
--- OUTSIDE RECORDS SUMMARY | 2024-11-09 03:56 | XMS_ITS | Encounter Summary ---
Author Organization [facility] [place] [address] Care Team Providers Care Bootmaker Hand Name Role Phone Reyna Perez DEMETRIUS Primary Care Provider [phone] Reason for Referral * (Routine) - Pending Review Specialty Diagnoses / Procedures Referred By Juan R acosta Referred To Contact Diagnoses Ureteral mass Procedures AMB URO SURGERY COMM ORDER Patricia Ellison MD [address] [place] [id number] Phone: tel: fax: Referral ID Status Reason Start Date Expiration Date V isits Requested Visits Authorized [id number] Pending Review 11/05/2024 11/05/2025 1 1 Reason for Visit * Reason Onset Date Comments Information Only 11/05/2024 Encounter Details Date Type Department Care Team (Late st Contact Info) Description 11/05/2024 Results Follow-Up SEP Urology NPTFTT [address] [place] [phone] Patricia Ellison MD [address] [place] [address] NON-STOKER MECHANIC CYTOLOGY REQUEST, PATHOLOGY TISSUE REQUEST Social History Tobacco Use Types Packs/Day [...] on file documented as of this encounter Ordered Prescriptions Prescription Sig Dispense Quantity Refills Last Filled Start Date End Date sulfamethoxazole-t rimethoprim (BACTRIM DS) 800-160 mg Oral Tablet Take 1 Tablet by mouth every 12 hours for 10 days. 20 Tablet 11/05/2024 11/15/2024 documented in this encounter Miscellaneous Notes * Telephone Encounter - Marleni Mendez RN - 11/06/2024 10:33 AM EDT calling back sees pt is scheduled for surgery 12/05 but thought the plan was for sooner w/Dr. Alas Asking for a callback to advise. documented in this encounter Plan of Treatment Upcoming Encounters Date Type Department Care Team (Latest Contact Info) Description 11/23/2024 12:45 PM EDT Appointment EDG PRE-ADMIT TESTING [facility] [place] [address] 12/01/2024 11:30 AM EDT Hospital Encounter [facility] [address] [place] [id number] Sadi Haney MD [address] [place], [place] [id number] 12/01/2024 11:30 AM EDT Anesthesia Event [facility] [address] [place] [address] Kathy Dong, DEMETRIUS [address] [facility] [place] [address] 12/01/2024 11:30 AM EDT - 12/01/2024 4:42 PM EDT Surgery [facility] [address] 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 Author Autogenerat ed Goal Care Plan Autogenerated Problem No Michael Jarquincy documented as of this encounter Visit Diagnoses Diagnosis Ureteral mass- Primary Unspecified disorder of kidney and ureter Ureteral mass- Primary Unspecified disorder of kidney and ureter Ureteral mass Unspecified disorder of kidney and ureter documented in this encounter Orders Nursing Count Last Ordered Date First Orde red Date AMB URO SURGERY COMM ORDER 1 11/05/2024 documented in this encounter Additional Health Concerns Active Problems Noted Date Diagnosed Date Autogenerated Problem 11/07/2024 documented as of this encounter Care Teams Bootmaker Hand Relationship Specialty Start Date End Date Reyna Perez APRN [address] [place] [address] [address] [place] [id number] PCP - General Nurse Practitioner 10/27/24 documented as of this encounter
--- NOTE | 2024-11-09 03:57 | HMH.EDCP ---
Discharge Plan Disposition Patient Disposition: Admitted Condition: Fair Prescriptions Prescriptions: No Action nicotine 14 mg/24 hr patch 24 hour 1 patch transdermal DAILY Qty: 42 0RF prochlorperazine maleate [Compazine] 10 mg tablet 10 mg PO Q8H PRN (Reason: nausea and vomiting with headache) Qty: 20 1RF hydrocortisone-pramoxine 2.5-1 % cream 1 applic OH QID PRN (Reason: hemorrhoids) Qty: 30 2RF atorvastatin [Lipitor] 80 mg tablet 80 mg PO DAILY Qty: 90 1RF cholecalciferol (vitamin D3) 25 mcg (1,000 unit) capsule 25 mcg PO DAILY Qty: 90 1RF coenzyme Q10 [Q-Sorb Co Q-10] 100 mg capsule 100 mg PO DAILY Qty: 90 1RF Patient Comments: TAKE 1 CAPSULE BY MOUTH ONCE DAILY famotidine 40 mg tablet 40 mg PO BID Qty: 180 1RF lansoprazole 30 mg capsule,delayed release(DR/EC) 30 mg PO BID Qty: 90 1RF losartan 50 mg tablet 50 mg PO DAILY Qty: 90 3RF metoprolol succinate 25 mg tablet extended release 24 hr 25 mg PO DAILY Qty: 90 3RF prasugrel HCl [Effient] 10 mg tablet 10 mg PO DAILY 30 Days Qty: 90 1RF furosemide [Lasix] 40 mg tablet 40 mg PO DAILY Qty: 90 3RF Probiotic Formula (inulin) 1 billion-250 cell-mg capsule 1 cap PO DAILY Qty: 100 10RF aspirin 81 mg tablet,delayed release (DR/EC) 81 mg PO DAILY Qty: 90 3RF Referrals Follow up/Referrals: Provider,Referral, MD [Primary Care Provider, Medical] - See instructions Clinical Impressions Clinical Impression: Unstable angina Print Language Print Language: Tristanian Discharge ED Provider: Karla Johns HPI General Chief Complaint: Shortness of Breath/Dyspnea Stated Complaint: sob, vomiting Time Seen by Provider: 11/09/24 03:45 Mode of Arrival: Ambulatory Source of Information: Patient Description of Symptoms (Recalled from ER Triage Doc. by RN): Pt presents with c/o soa that is chronic in nature with worsening the last couple of hours. Pt reports associated chest pressure with recent cardiac stents placed. Pt reports HX of kidney cancer as well. History of Present Illness HPI narrative: 49-year-old male with known CAD and stents, GERD, hyperlipidemia, hypertension presents to the ER with chest pressure and shortness of breath for the last few hours. Patient reports he has had some chest pressure and shortness of breath progressively since the last time he had stents placed which was in September, but he reports it got acutely worse tonight a few hours ago. He was just sitting watching a movie when it worsened. Patient reports he has no known lung problems. He knows he is supposed to have open heart surgery however when they were evaluating him for open heart surgery, they noted a spot on his kidney and he has to have this kidney cancer treated before they will operate on the heart. Patient reports after having the biopsy done, he developed urinary tract infection so he stopped taking his Lasix and only resumed 2 days ago. He and family at bedside deny any new swelling in the feet or legs. Patient reports positional changes do not change his symptoms. He did not take any specific medications prior to arrival. He does not have nitro at home. No vomiting or diarrhea, no nausea, dizziness, or radiation of pain. Related Data Previous Rx's ?Medication ?Instructions ?Recorded furosemide 40 mg tablet (Lasix) 40 mg PO DAILY #90 tabs 12/02/23 Bacillus coagulans-inulin 1 1 cap PO DAILY #100 caps 02/25/24 billion cell-250 mg capsule (Probiotic Formula (inulin)) aspirin 81 mg tablet,delayed 81 mg PO DAILY #90 tabs 09/04/24 release nicotine 14 mg/24 hr daily 1 patch transdermal DAILY #42 ea 09/26/24 transdermal patch prochlorperazine maleate 10 mg 10 mg PO Q8H PRN nausea and 09/26/24 tablet (Compazine) vomiting with headache #20 tabs atorvastatin 80 mg tablet (Lipitor) 80 mg PO DAILY #90 tabs 10/24/24 cholecalciferol (vitamin D3) 25 25 mcg PO DAILY . #90 caps 10/24/24 mcg (1,000 unit) capsule coenzyme Q10 100 mg capsule 100 mg PO DAILY #90 caps 10/24/24 (Q-Sorb Co Q-10) famotidine 40 mg tablet 40 mg PO BID #180 tabs 10/24/24 hydrocortisone-pramoxine 2.5 %-1 % 1 applic OH QID PRN hemorrhoids 10/24/24 rectal cream #30 grams lansoprazole 30 mg capsule,delayed 30 mg PO BID #90 caps 10/24/24 release losartan 50 mg tablet 50 mg PO DAILY #90 tabs 10/24/24 metoprolol succinate 25 mg 25 mg PO DAILY #90 tabs 10/24/24 tablet,extended release 24 hr prasugrel HCl 10 mg tablet 10 mg PO DAILY 30 days #90 tabs 10/24/24 (Effient) Allergies Allergy/AdvReac Type Severity Reaction Status Date / Time No Known Allergies Allergy Verified 10/24/24 09:44 [facility] Disclaimer: The information contained in this section may have been updated after the patient was seen, as this information can be updated by other users. Medical History (Updated 11/09/24 @ 05:10 by Karla Johns MD) SOBOE (shortness of breath on exertion) Fatigue Tobacco dependence GERD (gastroesophageal reflux disease) Right shoulder pain Vitamin D deficiency Diastolic dysfunction Coronary artery disease Claudication Edema of both lower extremities Dizziness Abnormal result of cardiovascular function study Abnormal stress test Family history of early CAD Chest pain Hyperlipidemia Essential hypertension Surgical History History of heart artery stent Hx of cardiac cath Family History Grandmother Cancer Father Diabetes Heart attack Hypertension Mother Hypertension Social History Smoking Status: Current every day smoker alcohol intake: never current occupational status: employed Travel in the last 8 weeks?: Inside the [place] Other Medical History Have you received the Flu Vaccine for this season: No Have you received the Pneumonia Vaccine: No ROS Obtained: Yes Systems reviewed as appropriate & no additional complaints except as documented per HPI Physical Exam General General appearance: alert, in no apparent distress and obese Head Head exam: atraumatic and normocephalic Eye Eye exam: Present PERRL and EOMI ENT ENT exam: Present mucous membranes moist Neck Neck exam: Present normal inspection and full ROM Chest Chest inspection: Present symmetric chest wall rise; Absent tenderness Respiratory Respiratory exam: Present normal lung sounds bilaterally; Absent respiratory distress, wheezes or stridor Cardiovascular Cardiovascular exam: Present regular rate and normal rhythm Abdominal Exam Abdominal exam: Present soft; Absent distention or tenderness Extremities Exam Extremities exam: Present full ROM and edema (very mild +1 pitting edema BLE) Back Exam Back exam: Absent CVA tenderness (R) or CVA tenderness (L) Neurological Exam Neurological exam: Present alert and oriented X3; Absent motor sensory deficit Psychiatric Psychiatric exam: Present normal affect and normal mood Skin Skin exam: Present warm and dry HEART Score HEART Score HEART Score assessment performed?: Yes History (anamnesis): Slightly suspicious ECG: Normal Age: 45-65 years Risk factors: Atherosclerosis history Troponin: </= normal limit HEART Score: 3 Procedures Miscellaneous Procedure Procedure Performed: Limited Cardiac Ultrasound Indication: Chest pain, shortness of breath Identified cardiac views: [-Cardiac parasternal long axis] [-Cardiac parasternal short axis] [-Cardiac apical four-chamber] [-Cardiac subxiphoid] Findings: Cardiac activity present with no gross wall motion abnormality, no pericardial effusion, no right heart strain Impression: Cardiac activity present with no gross wall motion abnormality, no pericardial effusion, no right heart strain Images were saved to permanent archive The study was technically adequate CPT: 17681 This study was performed by ct, and I personally interpreted all images/videos. Based on my clinical judgement, these images were adequate and did not necessitate further imaging. Limited lung ultrasound A focused ultrasound exam of the pleural spaces was performed to evaluate for pneumothorax, pulmonary edema, pleural effusion and/or consolidation. The ultrasound was performed with the following indications, as noted in the H&P: Shortness of breath Identified structures: Bilateral thoracic cavities were examined. Findings: Lung sliding: - Present bilaterally B-lines: Present left lower lateral, absent otherwise Pleural effusion: Absent bilaterally Consolidation: Absent bilaterally Impression: - Pneumothorax absent bilaterally - Pleural effusion absent bilaterally - B-lines present in left lower lung mortensen - Consolidation absent bilaterally Images were saved to permanent archive The study was technically adequate CPT 31585-72 This study was performed by ct, and I personally interpreted all images/videos. Based on my clinical judgement, these images were adequate and did not necessitate further imaging. Critical Care Critical Care Time Critical Care Time: No Medical Decision Making Medical Records Medical records reviewed: Yes I reviewed the patient's medical records. MR Comment: Reviewed most recent cardiology note demonstrates patient was last seen in September. He has known CAD, he had an NSTEMI with a drug-eluting stent placed in the RCA in September of this year. At that time cardiology wanted to proceed with additional left heart cath and staged stenting to ostial LAD and proximal circumflex artery with right radial access due to severe CAD and NSTEMI but patient had declined, he wanted to get a second opinion and discussed possible CABG with Dr. Driscoll but was still waiting on a referral appointment. Recommended to remain off work, return to clinic in 1 month, no evidence that patient has returned since that appointment in September. Ignacio Inquiry Pt receiving controlled substance: No Vital Signs Vital Signs: 11/09/24 03:53 11/09/24 04:13 Temperature 98.9 F Temperature Source Oral Pulse Rate 67 Pulse Rate [Radial] 68 Respiratory Rate 18 18 Blood Pressure 115/74 Blood Pressure [Right Arm] 133/59 L Blood Pressure Mean [Right Arm] 83 Blood Pressure Position Sitting Blood Pressure Position [Right Arm] Sitting 02 Sat by Pulse Oximetry 98 94 L Oxygen Delivery Method Room Air Room Air Lab Data Labs: Lab Results 11/09/24 03:54: WBC 16.6 H, RBC 4.71, Hgb 14.2, Hct 41.2 L, MCV 87.5, MCH 30.1, MCHC 34.5, RDW 13.4, Plt Count 307, MPV 9.2, Neut % (Auto) 76.3, Lymph % (Auto) 14.6, Kenedy % (Auto) 6.9, Eos % (Auto) 1.1, Baso % (Auto) 0.4, Neut # (Auto) 12.7 H, Lymph # (Auto) 2.4, Kenedy # (Auto) 1.2 H, Eos # (Auto) 0.2, Baso # (Auto) 0.1, PT 11.0, INR 0.99, Sodium 139, Potassium 4.5, Chloride 103, Carbon Dioxide 22, Anion Gap 18.5 H, BUN 19, Creatinine 1.10, Estimated Creat Clear 124, Estimated GFR 71, Est GFR ( Amer) 86, Glucose 106 H, Calcium 9.7, Total Bilirubin 0.5, AST 28, ALT 28, Alkaline Phosphatase 120, Troponin I < 0.01, NT-Pro-B Natriuret Pep < 20.0, Total Protein 7.7 D, Albumin 4.9, Globulin 2.8, Albumin/Globulin Ratio 1.8 11/09/24 03:56: VBG pH 7.35, VBG pCO2 33.6 L, VBG pO2 76.0 H, VBG HCO3 18.1 L, VBG Total CO2 19.1 L, VBG O2 Saturation 95.1 H, VBG Base Excess -7.6 L, VBG Lactic Acid 1.0 11/09/24 03:54 11/09/24 03:54 Response Orders (Tests/Meds): ED MEDICATIONS Generic Name Dose Route Start Last Admin Trade Name Freq PRN Reason Stop Dose Admin Nitroglycerin 0.4 mg 11/09/24 03:56 11/09/24 04:11 Nitroglycerin 0.4mg Sl Tablet SL 11/10/24 03:56 0.4 mg Q5MINP PRN Administration Chest Pain Discontinued Medications Generic Name Dose Route Start Last Admin Trade Name Freq PRN Reason Stop Dose Admin Aspirin 324 mg 11/09/24 03:56 11/09/24 04:11 Aspirin 81mg Chewable Tablet PO 11/09/24 03:57 324 mg ONCE ONE Administration Lactated Ringer's 500 mls @ 999 mls/hr 11/09/24 04:32 11/09/24 04:45 Lactated Ringer's 500ml IV 11/09/24 05:02 999 mls/hr .Q31M ONE Administration Iopamidol 70 ml 11/09/24 04:42 11/09/24 04:43 Iopamidol-370 (76%);100ml Bottle IV 11/09/24 04:43 70 ml ONCE ONE Administration Sodium Chloride 50 ml 11/09/24 04:42 11/09/24 04:43 0.9 % Sodium Chloride 50 Ml Vial IV 11/09/24 04:43 50 ml ONCE ONE Administration Sodium Chloride 10 ml 11/09/24 04:42 11/09/24 04:43 Sodium Chloride 0.9% 10ml Syr (Rad Only) IV 11/09/24 04:43 10 ml ONCE ONE Administration ORDERS Category Date Time Status CT angio chest PE protocol Stat Cat Scan 11/09/24 03:56 Taken POCUS Point of Care (ER Only) Stat Exams 11/09/24 03:56 Completed Complete Blood Count Auto Diff Stat Lab 11/09/24 03:54 Completed Comprehensive Metabolic Panel Stat Lab 11/09/24 03:54 Completed NT Pro Brain Natriuretic Pep. Stat Lab 11/09/24 03:54 Completed Prothrombin Time INR Stat Lab 11/09/24 03:54 Completed Troponin I Q3H Lab 11/09/24 07:00 Ordered Troponin I Q3H Lab 11/09/24 10:00 Ordered Troponin I Stat Lab 11/09/24 03:54 Completed Venous Blood Gas Stat RT 11/09/24 03:56 Completed MDM Narrative Medical Decision Narrative: In summary, this 49-year-old male with comorbidities described in the HPI presents to the emergency department today with chest pressure, shortness of breath. On initial evaluation patient is hemodynamically stable, afebrile, GCS 15, cardiopulmonary exam is reassuring though patient does have mild bilateral lower extremity pitting edema, abdominal exam benign, no reproducible chest pain on exam. Differential diagnosis includes but is not limited to ACS, PE was considered since patient has potential to be coagulopathic with active cancer, fluid overload, pulmonary edema, kidney dysfunction, electrolyte abnormalities, among others. Ruling out the most morbid conditions drove my assessment. Based on these concerns, I ordered serum labs, cardiac workup, CTA PE. I performed [id number] ultrasound at bedside which did not demonstrate acute cardiac abnormality, few B-lines in the lower left lung mortensen. See procedure note for details. ECG personally interpreted demonstrates normal sinus rhythm, rate 66, normal axis, normal OH and QTc, no STEMI. Patient received aspirin, nitro initially for treatment. Labs personally reviewed demonstrate Kasai ptosis WBC 16.6, nonspecific at this time but likely related to his known UTI, no anemia, platelets normal, PT/INR normal, VBG with normal pH, no hypercarbia, good oxygenation, lactic normal, CMP nonactionable at this time, initial troponin undetectably low less than 0.01 which is reassuring in the setting of patient's reassuring ECG, BNP undetectable also reassuring with only mild B-lines in the left lower lung field. CTA PE personally interpreted does not demonstrate large PE or infiltrate, radiology read pending at this time. On reassessment patient continues to be stable, symptoms are relatively unchanged. I believe he is appropriate for admission at this time for continued cardiac workup. Patient and family are agreeable to this. I discussed this case with the hospitalist including patient's history and current symptoms as well as workup so far. Patient graciously accepted for admission to the hospitalist, patient admitted in stable condition.
--- NOTE | 2024-11-09 03:59 | PC.NURSE ---
respiratory contacted regarding the need for vbg ran in the lab
[2024-11-09 04:04] LABS: Lactate Venous 1.0 mmol/L (0.4-2.0); VBG HCO3 18.1 mmol/L (23-30); VBG PCO2 33.6 mmol/L (35-51); VBG PH 7.35 mmol/L (7.31-7.41); VBG PO2 76.0 mmol/L (28-40)
[2024-11-09 04:10] LABS: Chloride 103 mmol/L (98-107)
[2024-11-09 04:11] LABS: Albumin Level 4.9 g/dl (3.5-5.0); Potassium 4.5 mmoL/L (3.5-5.1); Sodium 139 mmol/L (136-145)
[2024-11-09] MEDS: ASPIRIN 81MG CHEWABLE TABLET 324 MG PO (04:11)
[2024-11-09] MEDS: NITROGLYCERIN 0.4MG SL TABLET 0.4 MG SL (04:11)
[2024-11-09 04:13] VITALS: BP 115/74; PULSE 67; RESP 18; O2SAT 94
[2024-11-09 04:13] LABS: Blood Urea Nitrogen 19 mg/dl (9-20); Creatinine Clearance Estimated 124 mL/min (50-200); Creatinine,Serum 1.10 mg/dl (0.66-1.25); Estimated Glomerular Filt Rate 71 ml/min (>60); GFR (African American) 86 ML/MIN (>60)
[2024-11-09 04:14] LABS: Alanine Aminotransferase 28 U/L (12-78); Albumin/Globulin Ratio 1.8 (1.1-1.8); Alkaline Phosphatase 120 U/L (38-126); Anion Gap 18.5 mEq/L (5-15); Aspartate Amino Transferase 28 U/L (17-59); Bilirubin,Total 0.5 mg/dl (0.2-1.3); Calcium 9.7 mg/dl (8.4-10.2); Carbon Dioxide 22 mmol/L (22.0-30.0); Globulin 2.8 g/dL (1.3-3.2); Glucose 106 mg/dl (74-100); Hematocrit 41.2 % (42.0-52.0); Hemoglobin 14.2 g/dL (14.1-18.0); Immature Granulocytes % 0.7 %; Mean Corpuscular HGB Conc 34.5 g/dL (31.8-35.4); Mean Corpuscular Hemoglobin 30.1 pg (27.0-31.2); Mean Corpuscular Volume 87.5 fl (80-94); Nucleated Red Blood Cells % 0 %; Platelet Count 307 K/mm3 (142-424); Red Blood Count 4.71 M/mm3 (4.60-6.20); Red Cell Distribution Width-SD 43.3 fL; Total Protein,Serum 7.7 g/dl (6.3-8.2); White Blood Count 16.6 K/mm3 (4.8-10.8)
[2024-11-09 04:22] LABS: INR 0.99 (0.9-1.1); Prothrombin Time 11.0 seconds (10.1-12.5)
[2024-11-09 04:23] LABS: NT Pro Brain Natriuretic Pep. < 20.0 pg/mL (0-125)
[2024-11-09 04:29] LABS: Troponin I < 0.01 ng/ml (0.00-0.034)
[2024-11-09] MEDS: IOPAMIDOL-370 (76%);100ML BOTTLE 70 ML IV (04:43)
[2024-11-09] MEDS: SODIUM CHLORIDE 0.9% 10ML SYR (RAD ONLY) 10 ML IV (04:43)
[2024-11-09] MEDS: 0.9 % SODIUM CHLORIDE 50 ML VIAL IV (04:43)
[2024-11-09] MEDS: RINGERS SOLUTION,LACTATED 500 ML 999 ML IV (04:45)
[2024-11-09 05:27] VITALS: BP 148/87; PULSE 62; RESP 18; TEMP 37.2; O2SAT 98
--- NOTE | 2024-11-09 05:27 | PC.NURSE ---
Report given to Rachael CHUN on the floor.
[2024-11-09 05:57] VITALS: BP 145/80; PULSE 83; RESP 20; TEMP 37; O2SAT 95; BMI 36.5
--- NOTE | 2024-11-09 06:34 | EXP.HP ---
History of Present Illness *Admission Date: 11/09/24 *Reason for visit:: Chest pain *History of present illness: Patient is a 49-year-old male with past medical history of CAD hypertension hyperlipidemia GERD who presents to the hospital due to complaints of chest pressure and shortness of breath. According to the patient he has been having symptoms since September. Patient mentions he is supposed to have CABG but he was recently diagnosed with kidney cancer, his CABG was delayed for about 2 months. Patient otherwise denied fevers chills diarrhea constipation dysuria. [facility] Disclaimer: The information contained in this section may have been updated after the patient was seen, as this information can be updated by other users. Medical History SOBOE (shortness of breath on exertion) Fatigue Tobacco dependence GERD (gastroesophageal reflux disease) Right shoulder pain Vitamin D deficiency Diastolic dysfunction Coronary artery disease Claudication Edema of both lower extremities Dizziness Abnormal result of cardiovascular function study Abnormal stress test Family history of early CAD Chest pain Hyperlipidemia Essential hypertension Surgical History History of heart artery stent Hx of cardiac cath Family History Grandmother Cancer Father Diabetes Heart attack Hypertension Mother Hypertension Social History (Updated 11/09/24 @ 06:17 by Rachael Jackson RN) Smoking Status: Current every day smoker alcohol intake: never current occupational status: employed Travel in the last 8 weeks?: Inside the [place] Other Medical History Have you received the Flu Vaccine for this season: No Have you received the Pneumonia Vaccine: No Review of Systems Review of Systems Review of systems:: pertinent systems reviewed and negative unless documented below Meds Home Medications and Allergies Home Medications ?Medication ?Instructions ?Recorded ?Confirmed ?Type furosemide 40 mg tablet (Lasix) 40 mg PO DAILY #90 tabs 12/02/23 11/09/24 Rx Bacillus coagulans-inulin 1 1 cap PO DAILY #100 caps 02/25/24 11/09/24 Rx billion cell-250 mg capsule (Probiotic Formula (inulin)) aspirin 81 mg tablet,delayed 81 mg PO DAILY #90 tabs 09/04/24 11/09/24 Rx release nicotine 14 mg/24 hr daily 1 patch transdermal DAILY #42 ea 09/26/24 11/09/24 Rx transdermal patch atorvastatin 80 mg tablet (Lipitor) 80 mg PO DAILY #90 tabs 10/24/24 11/09/24 Rx cholecalciferol (vitamin D3) 25 25 mcg PO DAILY . #90 caps 10/24/24 11/09/24 Rx mcg (1,000 unit) capsule coenzyme Q10 100 mg capsule 100 mg PO DAILY #90 caps 10/24/24 11/09/24 Rx (Q-Sorb Co Q-10) hydrocortisone-pramoxine 2.5 %-1 % 1 applic ND QID PRN hemorrhoids 10/24/24 11/09/24 Rx rectal cream #30 grams lansoprazole 30 mg capsule,delayed 30 mg PO BID #90 caps 10/24/24 11/09/24 Rx release losartan 50 mg tablet 50 mg PO DAILY #90 tabs 10/24/24 11/09/24 Rx metoprolol succinate 25 mg 25 mg PO DAILY #90 tabs 10/24/24 11/09/24 Rx tablet,extended release 24 hr prasugrel HCl 10 mg tablet 10 mg PO DAILY 30 days #90 tabs 10/24/24 11/09/24 Rx (Effient) New Prescriptions to Start Prescriptions: Allergies Allergy/AdvReac Type Severity Reaction Status Date / Time No Known Allergies Allergy Verified 10/24/24 09:44 Exam Data for Last 24 hours Vital signs and Labs for Last 24 Hours: Temp Pulse Resp BP Pulse Ox O2 Del Method 98.6 F 83 20 145/80 H 95 Room Air 11/09/24 05:57 11/09/24 05:57 11/09/24 05:57 11/09/24 05:57 11/09/24 05:57 11/09/24 05:57 Laboratory Results - last 24 hr 11/09/24 03:54: WBC 16.6 H, RBC 4.71, Hgb 14.2, Hct 41.2 L, MCV 87.5, MCH 30.1, MCHC 34.5, RDW 13.4, Plt Count 307, MPV 9.2, Neut % (Auto) 76.3, Lymph % (Auto) 14.6, [place] % (Auto) 6.9, Eos % (Auto) 1.1, Baso % (Auto) 0.4, Neut # (Auto) 12.7 H, Lymph # (Auto) 2.4, [place] # (Auto) 1.2 H, Eos # (Auto) 0.2, Baso # (Auto) 0.1, PT 11.0, INR 0.99, Sodium 139, Potassium 4.5, Chloride 103, Carbon Dioxide 22, Anion Gap 18.5 H, BUN 19, Creatinine 1.10, Estimated Creat Clear 124, Estimated GFR 71, Est GFR ( Amer) 86, Glucose 106 H, Calcium 9.7, Total Bilirubin 0.5, AST 28, ALT 28, Alkaline Phosphatase 120, Troponin I < 0.01, NT-Pro-B Natriuret Pep < 20.0, Total Protein 7.7 D, Albumin 4.9, Globulin 2.8, Albumin/Globulin Ratio 1.8 11/09/24 03:56: VBG pH 7.35, VBG pCO2 33.6 L, VBG pO2 76.0 H, VBG HCO3 18.1 L, VBG Total CO2 19.1 L, VBG O2 Saturation 95.1 H, VBG Base Excess -7.6 L, VBG Lactic Acid 1.0 I & O for Last 24 hours: Intake & Output 11/06/24 11/07/24 11/08/24 11/09/24 23:59 23:59 23:59 23:59 Weight 108.998 kg Constitutional Constitutional: no acute distress *Routine HEENT Exam Head: Present normocephalic Eye: Present EOMI and PERRL ENT: Present mucous membranes moist *Routine Neck Exam Neck: Present supple; Absent lymphadenopathy *Routine Respiratory Exam Respiratory: Present CTA bilaterally *Routine Cardiovascular Exam Cardiovascular: Present RRR *Routine Abdominal Exam Abdominal: Present soft and normoactive bowel sounds; Absent tenderness *Routine Rectal Exam Rectal:: deferred *Routine Genitalia Exam Genitalia:: deferred *Routine Extremities Exam Extremities: Absent cyanosis, clubbing or edema *Routine Skin Exam Skin: Present warm; Absent rash *Routine Neurological Exam Neurological: Present alert and oriented X3 Assessment and Plan *Assessment and plan (1) Chest pain: Status: Acute Category: Medical Code(s): R07.9 - Chest pain, unspecified (2) Tobacco dependence: Status: Acute Category: Medical Code(s): F17.200 - Nicotine dependence, unspecified, uncomplicated (3) GERD (gastroesophageal reflux disease): Status: Acute Category: Medical Code(s): K21.9 - Gastro-esophageal reflux disease without esophagitis (4) Hyperlipidemia: Status: Acute Qualifiers: Hyperlipidemia type: unspecified Qualified Code(s): E78.5 - Hyperlipidemia, unspecified Category: Medical Code(s): E78.5 - Hyperlipidemia, unspecified (5) Essential hypertension: Status: Acute Category: Medical Code(s): I10 - Essential (primary) hypertension Plan Patient is a 49-year-old male with past medical history of CAD hypertension hyperlipidemia GERD who presents to the hospital due to complaints of chest pressure and shortness of breath. According to the patient he has been having symptoms since September. Patient mentions he is supposed to have CABG but he was recently diagnosed with kidney cancer, his CABG was delayed for about 2 months. Patient otherwise denied fevers chills diarrhea constipation dysuria. 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
[2024-11-09 06:36] LABS: Hematocrit 39.9 % (42.0-52.0); Hemoglobin 13.2 g/dL (14.1-18.0); Immature Granulocytes % 0.7 %; Mean Corpuscular HGB Conc 33.1 g/dL (31.8-35.4); Mean Corpuscular Hemoglobin 29.0 pg (27.0-31.2); Mean Corpuscular Volume 87.7 fl (80-94); Nucleated Red Blood Cells % 0 %; Platelet Count 272 K/mm3 (142-424); Red Blood Count 4.55 M/mm3 (4.60-6.20); Red Cell Distribution Width-SD 42.7 fL; White Blood Count 17.1 K/mm3 (4.8-10.8)
[2024-11-09 06:58] LABS: Anion Gap 12.5 mEq/L (5-15); Blood Urea Nitrogen 19 mg/dl (9-20); Calcium 9.4 mg/dl (8.4-10.2); Carbon Dioxide 22 mmol/L (22.0-30.0); Chloride 103 mmol/L (98-107); Creatinine Clearance Estimated 124 mL/min (50-200); Creatinine,Serum 1.10 mg/dl (0.66-1.25); Estimated Glomerular Filt Rate 71 ml/min (>60); GFR (African American) 86 ML/MIN (>60); Glucose 105 mg/dl (74-100); Potassium 4.5 mmoL/L (3.5-5.1); Sodium 133 mmol/L (136-145)
--- NOTE | 2024-11-09 07:45 | HMH.PHAINT1 ---
Pharmacy Intervention Comments: HOME MEDICATION LIST VERIFIED USING LIST FROM OUTPATIENT PHARMACY AND PT INTERVIEW
[2024-11-09 08:00] VITALS: BP 133/76; PULSE 67; RESP 16; TEMP 36.4; O2SAT 95
[2024-11-09 09:13] LABS: Troponin I < 0.01 ng/ml (0.00-0.034)
[2024-11-09] MEDS: IRBESARTAN 75MG TABLET 75 MG PO (10:47)
[2024-11-09] MEDS: PRASUGREL 10MG TAB 10 MG PO (10:47)
[2024-11-09] MEDS: ATORVASTATIN 40MG TABLET 80 MG PO (10:47)
[2024-11-09] MEDS: FUROSEMIDE 40 MG TABLET PO (10:48)
[2024-11-09] MEDS: METOPROLOL SUCCINATE XL 25MG TABLET 25 MG PO (10:48)
[2024-11-09] MEDS: PANTOPRAZOLE 40MG TABLET 40 MG PO (10:48)
[2024-11-09] MEDS: ASPIRIN EC 81MG TABLET 81 MG PO (10:48)
--- NOTE | 2024-11-09 12:41 | EXP.CARD.CON ---
History of Present Illness History of Present Illness Consult date: 11/09/24 Requesting physician: Gio Corrales Consult reason: chest pain Chief complaint: chest pain History of present illness: Hospitalist note: Patient is a 49-year-old male with past medical history of CAD hypertension hyperlipidemia GERD who presents to the hospital due to complaints of chest pressure and shortness of breath. According to the patient he has been having symptoms since September. Patient mentions he is supposed to have CABG but he was recently diagnosed with kidney cancer, his CABG was delayed for about 2 months. Patient otherwise denied fevers chills diarrhea constipation dysuria. Cardiology note: This is a 49 year old male who is currently awaiting CABG at [place] after nephrectomy for kidney cancer later this month. Presented to ER for chest pain, soa, and feeling anxious. Reports has been pain free since arrival. EKG upon arrival NSR rate of 66 and negative for stemi. serial trops negative. THis morning reports he feels good. [facility] Disclaimer: The information contained in this section may have been updated after the patient was seen, as this information can be updated by other users. Medical History SOBOE (shortness of breath on exertion) Fatigue Tobacco dependence GERD (gastroesophageal reflux disease) Right shoulder pain Vitamin D deficiency Diastolic dysfunction Coronary artery disease Claudication Edema of both lower extremities Dizziness Abnormal result of cardiovascular function study Abnormal stress test Family history of early CAD Chest pain Hyperlipidemia Essential hypertension Surgical History History of heart artery stent Hx of cardiac cath Family History Grandmother Cancer Father Diabetes Heart attack Hypertension Mother Hypertension Social History (Updated 11/09/24 @ 06:17 by Rachael Jackson RN) Smoking Status: Current every day smoker alcohol intake: never current occupational status: employed Travel in the last 8 weeks?: [place] the [place] Review of Systems Review of Systems Review of systems:: pertinent systems reviewed and negative unless documented below *Cardiovascular Cardiovascular: Reports chest pain Exam Data for Last 24 hours Vital signs and Labs for Last 24 Hours: Temp Pulse Resp BP Pulse Ox O2 Del Method 97.5 F L 67 16 133/76 95 Room Air 11/09/24 08:00 11/09/24 08:00 11/09/24 08:00 11/09/24 08:00 11/09/24 08:00 11/09/24 11:00 Laboratory Results - last 24 hr 11/09/24 03:54: WBC 16.6 H, RBC 4.71, Hgb 14.2, Hct 41.2 L, MCV 87.5, MCH 30.1, MCHC 34.5, RDW 13.4, Plt Count 307, MPV 9.2, Neut % (Auto) 76.3, Lymph % (Auto) 14.6, [place] % (Auto) 6.9, Eos % (Auto) 1.1, Baso % (Auto) 0.4, Neut # (Auto) 12.7 H, Lymph # (Auto) 2.4, [place] # (Auto) 1.2 H, Eos # (Auto) 0.2, Baso # (Auto) 0.1, PT 11.0, INR 0.99, Sodium 139, Potassium 4.5, Chloride 103, Carbon Dioxide 22, Anion Gap 18.5 H, BUN 19, Creatinine 1.10, Estimated Creat Clear 124, Estimated GFR 71, Est GFR ( Amer) 86, Glucose 106 H, Calcium 9.7, Total Bilirubin 0.5, AST 28, ALT 28, Alkaline Phosphatase 120, Troponin I < 0.01, NT-Pro-B Natriuret Pep < 20.0, Total Protein 7.7 D, Albumin 4.9, Globulin 2.8, Albumin/Globulin Ratio 1.8 11/09/24 03:56: VBG pH 7.35, VBG pCO2 33.6 L, VBG pO2 76.0 H, VBG HCO3 18.1 L, VBG Total CO2 19.1 L, VBG O2 Saturation 95.1 H, VBG Base Excess -7.6 L, VBG Lactic Acid 1.0 11/09/24 06:22: WBC 17.1 H, RBC 4.55 L, Hgb 13.2 L, Hct 39.9 L, MCV 87.7, MCH 29.0, MCHC 33.1, RDW 13.3, Plt Count 272, MPV 9.2, Neut % (Auto) 78.8, Lymph % (Auto) 11.5, [place] % (Auto) 7.8, Eos % (Auto) 0.8, Baso % (Auto) 0.4, Neut # (Auto) 13.5 H, Lymph # (Auto) 2.0, [place] # (Auto) 1.3 H, Eos # (Auto) 0.1, Baso # (Auto) 0.1, Sodium 133 L, Potassium 4.5, Chloride 103, Carbon Dioxide 22, Anion Gap 12.5, BUN 19, Creatinine 1.10, Estimated Creat Clear 124, Estimated GFR 71, Est GFR ( Amer) 86, Glucose 105 H, Calcium 9.4 11/09/24 08:42: Troponin I < 0.01 I & O for Last 24 hours: Intake & Output 11/06/24 11/07/24 11/08/24 11/09/24 23:59 23:59 23:59 23:59 Intake Total 120 / 120 Output Total 400 / 400 Balance -280 / -280 Weight 240 lb 4.8 oz Constitutional Constitutional: no acute distress *Routine Respiratory Exam Respiratory: Present CTA bilaterally and symmetric chest movement *Routine Cardiovascular Exam Cardiovascular: Present RRR, Normal S1 and Normal S2 *Routine Abdominal Exam Abdominal: Present soft and normoactive bowel sounds; Absent tenderness *Routine Extremities Exam Extremities: Present full ROM and normal capillary refill; Absent edema *Routine Skin Exam Skin: Present intact, dry and warm Detailed Neck Exam: Thyroids Thyroid: Absent bruit Meds Home Medications and Allergies Home Medications ?Medication ?Instructions ?Recorded ?Confirmed ?Type furosemide 40 mg tablet (Lasix) 40 mg PO DAILY #90 tabs 12/02/23 11/09/24 Rx Bacillus coagulans-inulin 1 1 cap PO DAILY #100 caps 02/25/24 11/09/24 Rx billion cell-250 mg capsule (Probiotic Formula (inulin)) aspirin 81 mg tablet,delayed 81 mg PO DAILY #90 tabs 09/04/24 11/09/24 Rx release nicotine 14 mg/24 hr daily 1 patch transdermal DAILY #42 ea 09/26/24 11/09/24 Rx transdermal patch atorvastatin 80 mg tablet (Lipitor) 80 mg PO DAILY #90 tabs 10/24/24 11/09/24 Rx coenzyme Q10 100 mg capsule 100 mg PO DAILY #90 caps 10/24/24 11/09/24 Rx (Q-Sorb Co Q-10) hydrocortisone-pramoxine 2.5 %-1 % 1 applic MO QID PRN hemorrhoids 10/24/24 11/09/24 Rx rectal cream #30 grams lansoprazole 30 mg capsule,delayed 30 mg PO BID #90 caps 10/24/24 11/09/24 Rx release losartan 50 mg tablet 50 mg PO DAILY #90 tabs 10/24/24 11/09/24 Rx metoprolol succinate 25 mg 25 mg PO DAILY #90 tabs 10/24/24 11/09/24 Rx tablet,extended release 24 hr prasugrel HCl 10 mg tablet 10 mg PO DAILY 30 days #90 tabs 10/24/24 11/09/24 Rx (Effient) cholecalciferol (vitamin D3) 25 25 mcg PO DAILY 11/09/24 11/09/24 History mcg (1,000 unit) capsule famotidine 40 mg tablet 40 mg PO BID 11/09/24 11/09/24 History New Prescriptions to Start Prescriptions: Allergies Allergy/AdvReac Type Severity Reaction Status Date / Time No Known Allergies Allergy Verified 10/24/24 09:44 Assessment and Plan *Assessment and plan (1) Coronary artery disease: Status: Chronic Qualifiers: Coronary Disease-Associated Artery/Lesion type: [place] artery [place] vs. transplanted heart: [place] heart Associated angina: with other forms of angina Qualified Code(s): I25.118 - Atherosclerotic heart disease of [place] coronary artery with other forms of angina pectoris Category: Medical Code(s): I25.10 - Atherosclerotic heart disease of [place] coronary artery without angina pectoris (2) Unstable angina: Status: Acute Category: Medical Code(s): I20.0 - Unstable angina Plan CAD Hx of VIC Class III-IV angina Currently awaiting bypass at [place] Serial troponins negative EKG upon admission negative for STEMI Patient has been chest pain-free since admission Previously patient was offered stenting versus CABG and he wanted to proceed with bypass. I offered patient the same today and he states he would still like to proceed with his bypass even though it means waiting a little longer. Bypass surgery currently on hold due to need for nephrectomy secondary to cancer-scheduled later this month. Echo September 2024 shows an EF of 55 to 60% Continue aspirin 81 mg p.o. daily, Lipitor 80 mg p.o. daily, Toprol 25 mg p.o. daily and irbesartan 75 mg p.o. daily. Add Ranexa 1000 mg p.o. twice daily for chest pain CV summary 11/09/2024: Patient is CV stable for discharge home. Please continue below listed medications and have patient start Ranexa 1000 mg p.o. twice daily. Patient can follow-up in cardiology clinic in 1 week for reevaluation. Cardiac meds: Aspirin 81 mg p.o. daily Lipitor 80 mg p.o. daily Toprol 25 mg p.o. daily Irbesartan 75 mg p.o. daily Lasix 40 mg p.o. daily Jardiance 10 mg p.o. daily Ranexa 100mg p.o. BID.
--- NOTE | 2024-11-09 13:46 | P.DS_ITS ---
General Admission date:: 11/09/24 Discharge date: 11/09/24 HPI HPI HPI: Patient is a 49-year-old male with past medical history of CAD hypertension hyperlipidemia GERD who presents to the hospital due to complaints of chest pressure and shortness of breath. According to the patient he has been having symptoms since September. Patient mentions he is supposed to have CABG but he was recently diagnosed with kidney cancer, his CABG was delayed for about 2 months. Patient otherwise denied fevers chills diarrhea constipation dysuria. Hospital Course Hospital Course Hospital Course: 49-year-old male who has been followed by cardiology clinic for unstable angina. Presented to the ER because of chest pressure. Was recently referred to [place] for evaluation for CABG after heart cath recently at our facility. Patient is supposed to undergo CABG but needs to have his kidney removed first due to concern for mass on kidney. Scheduled for later this month. Medicine admitted patient at the request of the ER however because of chest pain and for possible cardiology evaluation. Was evaluated in the morning, at this time patient's chest pain is stable. Made adjustments to blood pressure regimen. Initiated on hydroxyzine for anxiety. Recommend follow-up with his CT surgeon and urologist for further management. If he presents to our facility again with similar symptoms, due to the known etiology and need for surgical intervention outside the scope of our facility to care for, would recommend transfer to [place] for more immediate/definitive management of his known CAD and suspected renal cancer. Stable at this time on room air. Serial troponins negative. Problems addressed as follows: CAD Hx of [place] Class III-IV angina Presented with chest pain. Serial troponins were negative. EKG upon admission negative for STEMI. Currently awaiting bypass surgery at [place] but needs to undergo nephrectomy first due to renal cancer. Scheduled for later this month. Cardiology evaluated, patient has previously been offered stenting versus CABG and he wanted to proceed with bypass. He was again offered stenting today, and wants to proceed with bypass even that means waiting a longer time. Echo in September 2024 shows EF 55 to 60%. Continue aspirin 81 mg p.o. daily, Lipitor 80 mg p.o. daily, Toprol 25 mg p.o. daily and irbesartan 75 mg p.o. daily. Add Ranexa 1000 mg p.o. twice daily for chest pain Toobacco use disorder: Smokes 2 to 3 packs a day. I have discussed smoking cessation on multiple occasions. Would benefit from cessation. Patient is precontemplative. GERD: Continue pantoprazole 40 mg twice daily Kidney function remains normal. No signs of GLENDA Concern for anxiety. Initiate hydroxyzine 50 mg as needed every 8 hours for anxiety. Also prescribed albuterol inhaler for dyspnea/wheeze given smoking history and likelihood of COPD/asthma component Exam Data for Last 24 hours Vital signs and Labs for Last 24 Hours: Temp Pulse Resp BP Pulse Ox O2 Del Method 97.5 F L 67 16 133/76 95 Room Air 11/09/24 08:00 11/09/24 08:00 11/09/24 08:00 11/09/24 08:00 11/09/24 08:00 11/09/24 11:00 Laboratory Results - last 24 hr 11/09/24 03:54: WBC 16.6 H, RBC 4.71, Hgb 14.2, Hct 41.2 L, MCV 87.5, MCH 30.1, MCHC 34.5, RDW 13.4, Plt Count 307, MPV 9.2, Neut % (Auto) 76.3, Lymph % (Auto) 14.6, [place] % (Auto) 6.9, Eos % (Auto) 1.1, Baso % (Auto) 0.4, Neut # (Auto) 12.7 H, Lymph # (Auto) 2.4, [place] # (Auto) 1.2 H, Eos # (Auto) 0.2, Baso # (Auto) 0.1, PT 11.0, INR 0.99, Sodium 139, Potassium 4.5, Chloride 103, Carbon Dioxide 22, Anion Gap 18.5 H, BUN 19, Creatinine 1.10, Estimated Creat Clear 124, Estimated GFR 71, Est GFR ( Amer) 86, Glucose 106 H, Calcium 9.7, Total Bilirubin 0.5, AST 28, ALT 28, Alkaline Phosphatase 120, Troponin I < 0.01, NT-Pro-B Natriuret Pep < 20.0, Total Protein 7.7 D, Albumin 4.9, Globulin 2.8, Albumin/Globulin Ratio 1.8 11/09/24 03:56: VBG pH 7.35, VBG pCO2 33.6 L, VBG pO2 76.0 H, VBG HCO3 18.1 L, VBG Total CO2 19.1 L, VBG O2 Saturation 95.1 H, VBG Base Excess -7.6 L, VBG Lactic Acid 1.0 11/09/24 06:22: WBC 17.1 H, RBC 4.55 L, Hgb 13.2 L, Hct 39.9 L, MCV 87.7, MCH 29.0, MCHC 33.1, RDW 13.3, Plt Count 272, MPV 9.2, Neut % (Auto) 78.8, Lymph % (Auto) 11.5, [place] % (Auto) 7.8, Eos % (Auto) 0.8, Baso % (Auto) 0.4, Neut # (Auto) 13.5 H, Lymph # (Auto) 2.0, [place] # (Auto) 1.3 H, Eos # (Auto) 0.1, Baso # (Auto) 0.1, Sodium 133 L, Potassium 4.5, Chloride 103, Carbon Dioxide 22, Anion Gap 12.5, BUN 19, Creatinine 1.10, Estimated Creat Clear 124, Estimated GFR 71, Est GFR ( Amer) 86, Glucose 105 H, Calcium 9.4 11/09/24 08:42: Troponin I < 0.01 I & O for Last 24 hours: Intake & Output 11/06/24 11/07/24 11/08/24 11/09/24 23:59 23:59 23:59 23:59 Intake Total 120 / 120 Output Total 400 / 400 Balance -280 / -280 Weight 108.998 kg Constitutional Constitutional: no acute distress, obese and cooperative *Routine HEENT Exam Head: Present normocephalic Eye: Present EOMI and PERRL ENT: Present mucous membranes moist *Routine Neck Exam Neck: Present supple; Absent lymphadenopathy *Routine Respiratory Exam Respiratory: Present CTA bilaterally; Absent rhonchi, wheezes or crackles *Routine Cardiovascular Exam Cardiovascular: Present RRR *Routine Abdominal Exam Abdominal: Present soft and normoactive bowel sounds; Absent tenderness *Routine Rectal Exam Patient deferred: visual exam *Routine Exam Patient deferred: penile exam *Routine Extremities Exam Extremities: Absent cyanosis, clubbing or edema *Routine Skin Exam Skin: Present warm; Absent rash *Routine Neurological Exam Neurological: Present alert, oriented X3 and moving all extremities; Absent a ltered mental status Results Data Completed and Pending Labs on day of discharge: Labs from last 24 hours 11/09/24 11/09/24 11/09/24 08:42 06:22 03:56 WBC 17.1 H RBC 4.55 L Hgb 13.2 L Hct 39.9 L MCV 87.7 MCH 29.0 MCHC 33.1 RDW 13.3 Plt Count 272 MPV 9.2 Neut % (Auto) 78.8 Lymph % (Auto) 11.5 [place] % (Auto) 7.8 Eos % (Auto) 0.8 Baso % (Auto) 0.4 Neut # (Auto) 13.5 H Lymph # (Auto) 2.0 [place] # (Auto) 1.3 H Eos # (Auto) 0.1 Baso # (Auto) 0.1 PT INR VBG pH 7.35 VBG pCO2 33.6 L VBG pO2 76.0 H VBG HCO3 18.1 L VBG Total CO2 19.1 L VBG O2 Saturation 95.1 H VBG Base Excess -7.6 L VBG Lactic Acid 1.0 Sodium 133 L Potassium 4.5 Chloride 103 Carbon Dioxide 22 Anion Gap 12.5 BUN 19 Creatinine 1.10 Estimated Creat Clear 124 Estimated GFR 71 Est GFR ( Amer) 86 Glucose 105 H Calcium 9.4 Total Bilirubin AST ALT Alkaline Phosphatase Troponin I < 0.01 NT-Pro-B Natriuret Pep Total Protein Albumin Globulin Albumin/Globulin Ratio 11/09/24 03:54 WBC 16.6 H RBC 4.71 Hgb 14.2 Hct 41.2 L MCV 87.5 MCH 30.1 MCHC 34.5 RDW 13.4 Plt Count 307 MPV 9.2 Neut % (Auto) 76.3 Lymph % (Auto) 14.6 [place] % (Auto) 6.9 Eos % (Auto) 1.1 Baso % (Auto) 0.4 Neut # (Auto) 12.7 H Lymph # (Auto) 2.4 [place] # (Auto) 1.2 H Eos # (Auto) 0.2 Baso # (Auto) 0.1 PT 11.0 INR 0.99 VBG pH VBG pCO2 VBG pO2 VBG HCO3 VBG Total CO2 VBG O2 Saturation VBG Base Excess VBG Lactic Acid Sodium 139 Potassium 4.5 Chloride 103 Carbon Dioxide 22 Anion Gap 18.5 H BUN 19 Creatinine 1.10 Estimated Creat Clear 124 Estimated GFR 71 Est GFR ( Amer) 86 Glucose 106 H Calcium 9.7 Total Bilirubin 0.5 AST 28 ALT 28 Alkaline Phosphatase 120 Troponin I < 0.01 NT-Pro-B Natriuret Pep < 20.0 Total Protein 7.7 D Albumin 4.9 Globulin 2.8 Albumin/Globulin Ratio 1.8 DS: Diagnosis Discharge Diagnosis (1) Coronary artery disease: Status: Chronic Code(s): I25.10 - Atherosclerotic heart disease of [place] coronary artery without angina pectoris Qualifiers: Associated angina: with other forms of angina Coronary Disease- Associated Artery/Lesion type: [place] artery [place] vs. transplanted heart: [place] heart Qualified Code(s): I25.118 - Atherosclerotic heart disease of [place] coronary artery with other forms of angina pectoris (2) Unstable angina: Status: Acute Code(s): I20.0 - Unstable angina Meds Home Medications and Allergies Home Medications ?Medication ?Instructions ?Recorded ?Confirmed ?Type furosemide 40 mg tablet (Lasix) 40 mg PO DAILY #90 tab s 12/02/23 11/09/24 Rx Bacillus coagulans-inulin 1 1 cap PO DAILY #100 caps 1 11/09/24 Rx billion cell-250 mg capsule (Probiotic Formula (inulin)) aspirin 81 mg tablet,delayed 81 mg PO DAILY #90 tabs 0 09/04/24 11/09/24 Rx release nicotine 14 mg/24 hr daily 1 patch transdermal DAILY # 42 ea 09/26/24 11/09/24 Rx transdermal patch atorvastatin 80 mg tablet (Lipitor) 80 mg PO DAILY #90 tabs 10/24/24 11/09/24 Rx coenzyme Q10 100 mg capsule 100 mg PO DAILY #90 caps 0 10/24/24 11/09/24 Rx (Q-Sorb Co Q-10) hydrocortisone-pramoxine 2.5 %-1 % 1 applic RI QID PRN hemorrhoids 10/24/24 11/09/24 Rx rectal cream #30 grams lansoprazole 30 mg capsule,delayed 30 mg PO BID #90 ca ps 10/24/24 11/09/24 Rx release losartan 50 mg tablet 50 mg PO DAILY #90 tabs 10/0811/09/24 Rx metoprolol succinate 25 mg 25 mg PO DAILY #90 tabs 11/09/24 Rx tablet,extended release 24 hr prasugrel HCl 10 mg tablet 10 mg PO DAILY 30 days #90 tabs 10/24/24 11/09/24 Rx (Effient) albuterol sulfate 90 mcg/actuation 2 inh inhalation Q6 H PRN shortness 11/09/24 Rx breath activated powder inhaler of breath or wheezing #1 ea cholecalciferol (vitamin D3) 25 25 mcg PO DAILY 11/09/24 History mcg (1,000 unit) capsule empagliflozin 10 mg tablet 10 mg PO DAILY 30 days #30 tabs 11/09/24 Rx (Jardiance) famotidine 40 mg tablet 40 mg PO BID 11/09/24 History hydroxyzine pamoate 50 mg capsule 50 mg PO TID PRN anx iety #30 caps 11/09/24 Rx ranolazine 500 mg tablet,extended 1,000 mg (2 x 500 mg ) PO BID 30 11/09/24 Rx release,12 hr days #120 tabs New Prescriptions to Start Prescriptions: albuterol sulfate Gio Corrales empagliflozin [Jardiance] Gio Corrales hydroxyzine pamoate Gio Corrales ranolazine Gio Corrales Allergies Allergy/AdvReac Type Severity Reaction Status Date / Time No Known Allergies Allergy Verified 10/24/24 09:44 Discharge Plan Disposition Patient Disposition: Home, Self-Care Condition: Fair Follow up Plan Follow up with: Provider,Referral, MD [Primary Care Provider, Medical] - Enter time for follow up Prescriptions/Medication Reconciliation: [place] Jard[place] 10 mg Tablet 10 mg PO DAILY 30 Days Qty: 30 0RF ranolazine 500 mg Tablet Extended Release 12 Hr 1,000 mg PO BID 30 Days Qty: 120 0RF albuterol sulfate 90 mcg/actuation aerosol powdr breath activated 2 inh inhalation Q6H PRN (Reason: shortness of breath or wheezing) Qty: 1 0RF hydroxyzine pamoate 50 mg capsule 50 mg PO TID PRN (Reason: anxiety) Qty: 30 0RF Continued nicotine 14 mg/24 hr patch 24 hour 1 patch transdermal DAILY Qty: 42 0RF hydrocortisone-pramoxine 2.5-1 % cream 1 applic RI QID PRN (Reason: hemorrhoids) Qty: 30 2RF atorvastatin [Lipitor] 80 mg tablet 80 mg PO DAILY Qty: 90 1RF coenzyme Q10 [Q-Sorb Co Q-10] 100 mg capsule 100 mg PO DAILY Qty: 90 1RF Patient Comments: TAKE 1 CAPSULE BY MOUTH ONCE DAILY lansoprazole 30 mg capsule,delayed release(DR/EC) 30 mg PO BID Qty: 90 1RF losartan 50 mg tablet 50 mg PO DAILY Qty: 90 3RF metoprolol succinate 25 mg tablet extended release 24 hr 25 mg PO DAILY Qty: 90 3RF prasugrel HCl [Effient] 10 mg tablet 10 mg PO DAILY 30 Days Qty: 90 1RF furosemide [Lasix] 40 mg tablet 40 mg PO DAILY Qty: 90 3RF Probiotic Formula (inulin) 1 billion-250 cell-mg capsule 1 cap PO DAILY Qty: 100 10RF aspirin 81 mg tablet,delayed release (DR/EC) 81 mg PO DAILY Qty: 90 3RF famotidine 40 mg tablet 40 mg PO BID cholecalciferol (vitamin D3) 25 mcg (1,000 unit) capsule 25 mcg PO DAILY Problem Reconciliation Problems Reviewed?: Yes Patient Discharge Instructions ACTIVITY: Continue current activity DIET: continue same diet Additional Instructions: Follow-up with your CT surgery team and urology team at [place] as scheduled Patient Instructions: DI for Angina Print Language: [place] Providers Primary Care Provider: Provider,Referral Admit Provider: Gio Corrales Attending Provider: Gio Corrales
== END 2024-11-09 15:11 | disposition home or self-care (01) ==
LOC: ER 05:10 → 2ND 05:52
PROVIDERS: Internal Medicine; Admitting Provider Internal Medicine Adolescent Medicine; Emergency Provider Emergency Medicine; Visit Provider Internal Medicine Adolescent Medicine
DX: I25.118 Atherosclerotic heart disease of native coronary artery with other forms of angina pectoris (principal); I10 Essential (primary) hypertension; C64.9 Malignant neoplasm of unspecified kidney, except renal pelvis; E78.5 Hyperlipidemia, unspecified; K21.9 Gastro-esophageal reflux disease without esophagitis; F17.210 Nicotine dependence, cigarettes, uncomplicated; Z95.810 Presence of automatic (implantable) cardiac defibrillator; Z90.5 Acquired absence of kidney; Z79.82 Long term (current) use of aspirin; Z79.899 Other long term (current) drug therapy; Z80.8 Family history of malignant neoplasm of other organs or systems; Z83.3 Family history of diabetes mellitus; Z82.49 Family history of ischemic heart disease and other diseases of the circulatory system
CPT/HCPCS: 36415; 71275; 80048; 80053; 82803; 83880; 84484; 85025; 85610; 93005; G0378; J7120; Q9967

== ENCOUNTER 2024-12-11 07:54 | Outpatient (CLI) | payer BC, SELFPAY ==
--- OUTSIDE RECORDS SUMMARY | 2024-10-10 14:00 | XMS_ITS | Encounter Summary ---
Author Organization [place] [address] Care Team Providers Care Deicer Tester Name Role Phone Unavailable Primary Care Provider Unavailabl e Encounter Details Date Type Department Care Team (Late st Contact Info) Description 10/10/2024 2:00 PM EDT Office Visit [facility] Cardiac Surgeons [address] [place] [address] Logan Kenny MD [address] [place], [place] [id number] ASHD (arteriosclerotic heart disease) (Primary Dx) Social [...] file. Date of Consultation: 10/11/2024 Requesting Physician: [facility] Consulting Physician: LOGAN KENNY MD Reason [...] 09/27/24 (VIC x 1 to RCA) at [facility]. Pt was scheduled to have additional PCI to LAD and circ ho wever pt wanted a second opinion for possible CABG surgery. Pt had SOA prior to PCI which has no changed. SOA has been gradually worsening. Pt has a strong family history of heart disease. 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 ASSESSMENT: ASHD: MVD HLD: on statin Ventral [...] 40.9%, WBC Count: 10.3 10??/?L, Platelet Count: 640903 cells/?L PreOp Medications: RYLAND Inhibitors/ARBs <= 48 hrs, ADP Inhibitors <= 5 days Substance Abuse: Current smoker Risk Factors / Comorbidities: Hypertension, Family Hx of CAD Pulmonary RF: Moderate CLD Coronary Artery Disease: Non-ST Elevation DE, DE: > 21 Days Prev. Cardiac Interv: Previous [...] to: Person, Place, and Time Skin : [place], warm, dry Imaging: The most recent cardiovascular imaging studies availabe in [facility] EMR were reviewed at time of [...] Upcoming Encounters Date Type Department Care Team (Late st Contact Info) Description 12/21/2024 2:30 PM EDT Office Visit [facility] [address] [place] [id number] Dorinda Rodriguez PA-C [address] [place] [address] 01/23/2025 9:00 AM EDT Office Visit [facility] Cardiac Surgeons [address] [place] [address] Logan Kenny MD [address] [place] [address] documented as of this encounter Visit Diagnoses Diagnosis ASHD (arteriosclerotic heart disease)- Primary Coronary atherosclerosis of unspecified type of vessel, [place] or graft documented in this encounter Historical Medications * This list may reflect changes made after this encounter. Coenzyme Q10 100 mg Oral Capsule Take 1 Capsule by mouth daily. cholecalciferol, vitamin D3, 25 mcg (1,000 unit) Oral Tablet Take 1,000 Units by mouth daily. Bacillus coagulans-inulin 1 billion-250 cell-mg Oral Capsule Take by mouth daily. added in this encounter
--- OUTSIDE RECORDS SUMMARY | 2024-10-19 07:44 | XMS_ITS | Encounter Summary ---
Author Organization [place] [address] Care Team Providers Care Merry Go Round Attendant Name Role Phone Unavailable Primary Care Provider Unavailabl e Reason for Referral * Vascular Imaging (Urgent) - Closed Specialty Diagnoses / Procedures Referred By Juan R acosta Referred To Contact Radiology Diagnoses Leg swelling Procedures [facility] LOWER EXTREMITY BILATERAL MAPPING Logan Kenny MD [address] [place] [address] [place] [address] Phone: tel: fax: Referral ID Status Reason Start Date Expiration Date Visits Re quested Visits Authorized [id number] Closed 10/10/2024 10/10/2026 1 1 Reason for Visit * Vascular Imaging (Urgent) - Closed Specialty Diagnoses / Procedures Referred By Juan R acosta Referred To Contact Radiology Diagnoses Leg swelling Procedures [facility] EXTREMITY BILATERAL MAPPING Logan Kenny MD [address] [place] [address] [place] [address] Phone: tel: fax: Referral ID Status Reason Start Date Expiration Date Visits Re quested Visits Authorized [id number] Closed 10/10/2024 10/10/2026 1 1 Encounter Details Date Type Department Care Team (Latest Contact Info) Description 10/19/2024 7:44 AM EDT - 10/19/2024 10:02 AM EDT Hospital Encounter [facility] [address] [place] [address] Logan Kenny MD [address] [place] [address] [place] [address] Leg swelling Discharge Disposition: Home or Self Care Social History Tobacco Use Types Packs/Day Years Used Date Smoking Tobacco: Every Day Cigarettes 1 35.6 Started: 1989 Smokeless Tobacco: Never Alcohol Use [...] Capsule Take 1 Capsule by mouth daily. famotidine (PEPCID) 40 mg [...] EDT Office Visit [facility] [address] [place] [phone] Dorinda Rodriguez PA-C [address] [place] [address] 01/23/2025 9:00 AM EDT Office Visit [facility] Cardiac Surgeons [address] [place] [address] Logan Kenny MD [address] [place] [address] documented as of this encounter Procedures Procedure Name Priority Date/Time Associated Diagnosis Comments [facility] LOWER EXTREMITY BILATERAL MAPPING PIEDAD 10/19/2024 9:27 AM EDT Leg swelling documented in this encounter Results * [facility] LOWER EXTREMITY BILATERAL MAPPING (10/19/2024 9:27 AM [...] 5 through 8. Narrative Procedure Note Josafat Barnhart DO - 10/19/2024 IMPRESSION Conclusions 1. There is no evidence of superficial vein thrombosis in thebilateral lower extremities. 2. The bilateral greater saphenous veins have been measured in zones 1 through 8. 3. The bilateral small saphenous veins have been measured in zones 5through 8. Logan Kenny MD IMG VASCULAR ORDERABLES Nadiya nichols Result documented in this encounter Visit Diagnoses Diagnosis Leg swelling Swelling of limb documented in this encounter
--- OUTSIDE RECORDS SUMMARY | 2024-10-19 07:44 | XMS_ITS | Encounter Summary ---
Author Organization [place] [address] Care Team Providers Care Chocolate Dipper Name Role Phone Unavailable Primary Care Provider Unavailabl e Reason for Referral * Vascular Imaging (Urgent) - Closed Specialty Diagnoses / Procedures Referred By Juan R acosta Referred To Contact Radiology Diagnoses Bruit Procedures [facility] CAROTID DUPLEX BILATERAL Logan Kenny MD [address] [place] [address] [place] [address] Phone: tel: fax: Referral ID Status Reason Start Date Expiration Date Visits Re quested Visits Authorized [id number] Closed 10/10/2024 10/10/2026 1 1 Reason for Visit * Vascular Imaging (Urgent) - Closed Specialty Diagnoses / Procedures Referred By Juan R acosta Referred To Contact Radiology Diagnoses Bruit Procedures [facility] CAROTID DUPLEX BILATERAL Logan Kenny MD [address] [place] [address] [place] [address] Phone: tel: fax: Referral ID Status Reason Start Date Expiration Date Visits Re quested Visits Authorized [id number] Closed 10/10/2024 10/10/2026 1 1 Encounter Details Date Type Department Care Team (Latest Contact Info) Description 10/19/2024 7:44 AM EDT - 10/19/2024 10:02 AM EDT Hospital Encounter [facility] [address] [place] [address] Logan Kenny MD [address] [place] [address] [place] [address] Bruit Discharge Disposition: Home or Self Care [...] EDT Office Visit [facility] [address] [place] [id number] Dorinda Rodriguez PA-C [address] [place], [place] [address] 01/23/2025 9:00 AM EDT Office Visit [facility] Cardiac Surgeons [address] [place] [address] Logan Kenny MD [address] [place] [address] documented as of this encounter Procedures Procedure Name Priority Date/Time Associated Diagnosis Comments PR US CAROTID DUPLEX BILATERAL PIEDAD 10/19/2024 9:20 AM EDT Bruit documented in this encounter Results * PR US CAROTID DUPLEX BILATERAL (10/19/2024 9:20 AM EDT) [...] bilateral vertebral arteries. Narrative Procedure Note Josafat Barnhart DO - 10/19/2024 IMPRESSION Conclusions * There is a right proximal internal carotid artery mildly obstructive lesion noted, with an estimated 1-39% stenosis. * There is a left proximal internal carotid artery moderatelyobstructive lesion noted, with an estimated 40-59% stenosis. * Antegrade flow visualized in the bilateral vertebral arteries. us Logan Kenny MD IMG VASCULAR ORDERABLES Nadiya l Result documented in this encounter Visit Diagnoses Diagnosis Bruit Other symptoms involving cardiovascular system documented in this encounter
--- OUTSIDE RECORDS SUMMARY | 2024-10-19 10:03 | XMS_ITS | Encounter Summary ---
Author Organization [place] [address] Care Team Providers Care Senior Patrol Agent Name Role Phone Unavailable Primary Care Provider Unavailabl e Reason for Visit * MRI/CAT Scan (Emergency) - Closed Specialty Diagnoses / Procedures Referred By Contac t Referred To Contact Radiology Diagnoses Hydronephrosis, unspecified hydronephrosis type Procedures CT ABDOMEN PELVIS WO ORAL WITH IV CONTRAST CT ABDOMEN PELVIS W CONTRAST Logan Kenny MD [address] [place] [address] [place] [address] Phone: tel: fax: Referral ID Status Reason Start Date Expiration Date Visits Re quested Visits Authorized [id number] Closed 10/12/2024 10/12/2025 1 1 Encounter Details Date Type Department Care Team (Latest Contact Info) Description 10/19/2024 10:03 AM EDT - 10/19/2024 11:59 PM EDT Hospital Encounter [facility] [address] [place] [address] Logan Kenny MD [address] [place] [address] [place] [address] Hydronephrosis, unspecified hydronephrosis type Discharge Disposition: Home or Self Care Social [...] PM EDT Office Visit [facility] [address] [place] [address] Dorinda Rodriguez PA-C [address] [place] [address] 01/23/2025 9:00 AM EDT Office Visit [facility] [place] [address] [place] [address] Drive [address] [place] [address] Logan Kenny MD [address] [place] [address] [place] [address] documented as of this encounter Procedures Procedure Name Priority Date/Time Associated Diagnosis Comments CT ABDOMEN PELVIS WO ORAL WITH IV CONTRAST STAT 10/19/2024 10:40 AM EDT Hydronephrosis, unspecified hydronephrosis type CREATININE ISTAT Routine 10/19/2024 10:3 5 AM EDT documented in this encounter Results * CT ABDOMEN PELVIS WO ORAL WITH IV CONTRAST (10/19/2024 10:40 AM EDT) Anatomical Region Laterality Modality Abdomen, Pelvis, Chest, Hip Comp uted Tomography 10/19/2024 10:4 0 AM EDT Impressions 10/19/2024 11:15 AM EDT 1. Severe left hydronephrosis with soft tissue/ masslike thickening of the proximal left ureter. Urothelial malignancy is a differential consideration and urology consultation is recommended. 2. Thinning of the left renal cortex suggests chronicity of the left urinary obstruction. - Note: Radiology results need to be interpreted within a comprehensive clinical context. If you have questions about the radiology report, please contact the office of the ordering clinician. Narrative 10/19/2024 11:[address] ABDOMEN AND PELVIS WITH CONTRAST (FAST), 10/19/2024 10:40 AM CLINICAL HISTORY: N13.30-Unspecified [id number]. COMPARISON: None. PROCEDURE COMMENTS: Multi-detector CT scanning of the abdomen and pelvis with multiplanar reformatting per expedited protocol. Isovue 370 IV contrast given as recorded in EPIC. Dose 1 : CT DLP Total : 888.4 mGycm DLP Spiral Max : 888.4 mGycm Maximum CTDI Vol : 18.3 mGy SSDE : 17.934 mGy SSDE Diameter : 36.1 cm SSDE Source : [employer] FINDINGS: The lung bases are unremarkable. No suspicious abnormality of the liver, pancreas, spleen or adrenal glands. Small presumed cortical cyst in the lateral midpole of the right kidney. No right-sided hydronephrosis. There is severe left hydronephrosis with left renal cortical thinning. Tubular soft tissue density within the proximal left ureter measuring 1.7 cm in axial dimension and 4.9 cm in craniocaudad dimension (axial image 45, coronal image 36). The mid and distal ureter are decompressed. Unremarkable appearance of the bladder. No suspicious pelvic abnormality. No bowel obstruction or inflammatory bowel change. Normal appendix. No abnormally enlarged abdominal or retroperitoneal nodes by CT size criteria. The major visceral arteries and veins appear patent on this nondedicated study. No acute or suspicious osseous abnormality. Procedure Note Gage Ring MD - 10/19/2024 CT ABDOMEN AND PELVIS WITH CONTRAST (FAST), 10/19/2024 10:40 AM CLINICAL HISTORY: N13.30-Unspecified [id number]. COMPARISON: None. PROCEDURE COMMENTS: Multi-detector CT scanning of the abdomen and pelviswith multiplanar reformatting per expedited protocol. Isovue 370 IV contrastgiven as recorded in EPIC. Dose 1 : CT DLP Total : 888.4 mGycm DLP Spiral Max : 888.4 mGycm Maximum CTDI Vol : 18.3 mGy SSDE : 17.934 mGy SSDE Diameter : 36.1 cm SSDE Source : [employer] FINDINGS: The lung bases are unremarkable. No suspicious abnormality of the liver, pancreas, spleen or adrenalglands. Small presumed cortical cyst in the lateral midpole of the right kidney.No right-sided hydronephrosis. There is severe left hydronephrosis with leftrenal cortical thinning. Tubular soft tissue density within the proximal leftureter measuring 1.7 cm in axial dimension and 4.9 cm in craniocaudad dimension(axial image 45, coronal image 36). The mid and distal ureter are decompressed. Unremarkable appearance of the bladder. No suspicious pelvic abnormality. No bowel obstruction or inflammatory bowel change. Normal appendix. No abnormally enlarged abdominal or retroperitoneal nodes by CT sizecriteria. The major visceral arteries and veins appear patent on this nondedicatedstudy. No acute or suspicious osseous abnormality. IMPRESSION: 1. Severe left hydronephrosis with soft tissue/ masslike thickening ofthe proximal left ureter. Urothelial malignancy is a differentialconsideration and urology consultation is recommended. 2. Thinning of the left renal cortex suggests chronicity of the lefturinary obstruction. - Note: Radiology results need to be interpreted within a comprehensiveclinical context. If you have questions about the radiology report, please contactthe office of the ordering clinician. us Logan Kenny MD IMG CT ORDERABLES Final Resu lt * CREATININE ISTAT (10/19/2024 10:35 AM EDT) Creatinine-iSTA T 1.2 0.6 - 1.3 mg/dL 10/19/2024 10:39 AM EDT [facility] Blood BLOOD SPECIMEN / Unknown 10/19/2024 10:35 AM EDT 10/19/2024 10:39 AM EDT us Logan Kenny MD POINT OF CARE TEST ORDERABLE S Final Result Performing Organization Address City/State/[facility] Co de Phone Number [address] [phone] documented in this encounter Visit Diagnoses Diagnosis Hydronephrosis, unspecified hydronephrosis type documented in this encounter Administered Medications Inactive Administered Medications - up to 1 most recent administrations Medication Order MAR Action Action Date Dose Rate Site iopamidoL (ISOVUE-370) 370 mg iodine /mL (76 %) injection (LOW) 100 mL 100 mL, Intravenous, ONCE PRN, 1 dose, Starting on Amelia 10/19/24 at 1008, Until Amelia 10/19/24 at 1040, Radiography/Imaging, Radiology Procedure, VESICANT , CT (Contrasts) Given 10/19/2024 10:40 AM EDT 100 mL Right Wrist sodium chloride 0.9% syringe Intravenous, ONCE PRN, 1 dose, Starting on Amelia 10/19/24 at 1009, Until Amelia 10/19/24 at 1040, Line Care, Flush peripheral lines every 12 hours, central lines every 8 hours, and after IV medication, CT (Contrasts) Given 10/19/2024 10:40 AM EDT 10 mL Righ t Wrist documented in this encounter
--- OUTSIDE RECORDS SUMMARY | 2024-10-19 15:00 | XMS_ITS | Encounter Summary ---
Author Organization [place] [address] Care Team Providers Care Nuclear Logging Engineer Name Role Phone Unavailable Primary Care Provider Unavailabl e Reason for Referral * (Routine) - Pending Review Specialty Diagnoses / Procedures Referred By Juan R t Referred To Contact Diagnoses Ureteral mass Procedures AMB URO SURGERY COMM ORDER AMB URO SURGERY COMM ORDER Patricia Ellison MD [address] [place] [phone] Phone: tel: fax: Referral ID Status Reason Start Date Expiration Date V isits Requested Visits Authorized [id number] Pending Review 10/19/2024 10/19/2025 1 1 Reason for Visit * Reason Comments Kidney Problem kidney mass Encounter Details Date Type Department Care Team (Late st Contact Info) Description 10/19/2024 3:00 PM EDT Office Visit [facility] NPT[facility] [address] [place] [phone] Patricia Ellison MD [address] [place] [id number] Ureteral mass (Primary Dx) Social History Tobacco Use Types Packs/Day Years Used Date Smoking Tobacco: Every Day Cigarettes 1 35.6 Started: 1989 Smokeless Tobacco: Never Tobacco Cessation:Ready [...] from the original note were not included. [facility] E& Ernst Pugh 1975 Assessment/Orders: Ernst was seen today for kidney problem. Diagnoses and all orders for this visit: Ureteral mass - NON-MORTGAGE PROTECTION SALES CYTOLOGY REQUEST; Future - Cancel: AMB URO SURGERY COMM ORDER - AMB URO SURGERY COMM ORDER - SURGICAL/PROCEDURE CASE REQUEST Other orders - SEP URINALYSIS POC PLAN: 1. Ureteral mass (Primary) - NON-MORTGAGE PROTECTION SALES CYTOLOGY REQUEST; Future - AMB URO SURGERY COMM ORDER - SURGICAL/PROCEDURE CASE REQUEST - NON-MORTGAGE PROTECTION SALES CYTOLOGY REQUEST Will send urine for cytology [...] additional PCI vs CABG and sent to [facility] for further evaluation. On eval found to [...] Negative Labs: Lab results were reviewed in [facility] and pertinent positives are: No results found for: PSA Lab Results Component Value Date CREATININE 1.2 10/19/2024 Imaging: Imaging studies (both written report and images on file) were reviewed in [facility] and pertinent positives are: No results found for this or any previous visit. No results found for this or any previous visit. No results found for this or any previous visit. No results found for this or any previous visit. No results found for this or any previous visit. Existing Medical Record: Progress Notes, Consults and miscellaneous records were reviewed in [facility] and pertinent positives are: see synopsis Outside paper records reviewed if applicable MD [facility] 10/19/2024 4:32 PM documented in this [...] Description 12/21/2024 2:30 PM EDT Office Visit [facility] NPTFTT [address] [place] [phone] Dorinda Rodriguez PA-C [address] [place] [address] 01/23/2025 9:00 AM EDT Office Visit [facility] [place] [address] [place] [address] [address] [place] [address] Logan Kenny MD [address] [place] [address] [place] [address] Scheduled Orders Name Type Priority Associated Diagnoses Orde r Schedule SURGICAL/PROCEDURE CASE REQUEST Procedures Routine Ureteral mass Ordered: 10/19/2024 documented as of this encounter Procedures Procedure Name Priority Date/Time Associated Diagnosis Comments NON-MORTGAGE PROTECTION SALES CYTOLOGY REQUEST Routine 10/19/2024 3:31 PM EDT Ureteral mass SEP URINALYSIS POC Routine 10/19/2024 2: 29 PM EDT Ureteral mass documented in this encounter Results * NON-MORTGAGE PROTECTION SALES CYTOLOGY REQUEST (10/19/2024 3:31 PM EDT) CASE REPORT Non-gynecologi c Cytology Case: [id number] Authorizing Provider: Patricia Ellison MD Collected: 10/19/20241 Ordering Location: [facility] Urology NPTFTT Received: 10/19/2024 1531 Pathologist: Jerome Hickman MD Specimen: Urine, Clean Catch 10/20/2024 12:24 PM EDT [facility] NON-MORTGAGE PROTECTION SALES CYTOLOGY FINAL DIAGNOSIS Urine, Voided: - Negative for high grade urothelial carcinoma - Reactive urothelial cells, red blood cells, neutrophils, and crystals. 10/20/2024 12:24 PM EDT [facility] at 1224 EDT EMBEDDED IMAGES 10/20/2024 12:24 PM EDT [facility] MICROSCOPIC DESCRIPTION Microscopic examination is performed and the findings corroborate the diagnosis. 10/20/2024 12:24 PM EDT [facility] Gross Description Urine, Rec'd 70ml of yellow fluid. (TP) Gross description has been reviewed by screening outreach analyst. 10/20/2024 12:24 PM EDT [facility] Urine STRUCTURE OF URINARY TRACT PROPER / Unknown 10/19/2024 3:31 PM EDT 10/19/2024 3:31 PM EDT us Patricia Ellison MD CYTOLOGY ORDERABLES Final Re sult [facility] [address] [place] [phone] * (ABNORMAL) SEP URINALYSIS POC (10/19/2024 2:29 PM EDT) UA Color POC Yellow Color 10/19/2024 2:31 PM EDT [facility] UA Appear POC Clear Clear 10/19/2024 2:31 PM EDT [facility] [place] UA Gluc POC Negative Negative mg/dL 10/19/2024 2:31 PM EDT [facility] [place] UA Bili POC Negative Negative 10/19/2024 2:31 PM EDT [facility] [place] UA Ketones POC Negative Negative mg/dL 10/19/2024 2:31 PM EDT [facility] [place] UA SG POC 1.010 1.001 - 1.035 no units 10/19/2024 2:31 PM EDT [facility] UA Blood POC Trace-Lysed( A) Negative 10/19/2024 2:31 PM EDT [facility] [place] UA pH POC 5.5 5.0 - 8.0 pH 10/19/2024 2:31 PM EDT [facility] UA Protein POC Negative Negative mg/dL 10/19/2024 2:31 PM EDT [facility] UA Urobilinogen POC 0.2 0.2, 1.0 10/19/2024 2:31 PM EDT [facility] UA Nitrite POC Negative Negative 10/19/2024 2:31 PM EDT [facility] UA Leuk Est POC Negative Negative 2:31 PM EDT [facility] Urine STRUCTURE OF URINARY TRACT PROPER / Unknown 10/19/2024 2:29 PM EDT 10/19/2024 2:31 PM EDT Patricia Ellison MD POINT OF CARE TEST ORDERABLE S Final Result [facility] [address] [place] [address] documented in this encounter Visit Diagnoses Diagnosis Ureteral mass- Primary Unspecified disorder of kidney and ureter documented in this encounter Orders Nursing Count Last Ordered Date First Orde red Date AMB URO SURGERY COMM ORDER 1 10/19/2024 documented in this encounter
--- OUTSIDE RECORDS SUMMARY | 2024-10-20 06:50 | XMS_ITS | Encounter Summary ---
Author Organization [place] [address] Care Team Providers Care Cosmetics Supervisor Name Role Phone Unavailable Primary Care Provider Unavailabl e Reason for Referral * Echo (Urgent) - Closed Specialty Diagnoses / Procedures Referred By Contac t Referred To Contact Radiology Diagnoses SOB (shortness of breath) Procedures EC ECHOCARDIOGRAM COMPLETE W DOPPLER AND COLOR FLOW MAPPING Logan Kenny MD [address] [place] [address] [place] [address] Phone: tel: fax: Referral ID Status Reason Start Date Expiration Date Visits Re quested Visits Authorized [id number] Closed 10/10/2024 10/10/2026 1 1 Reason for Visit * Echo (Urgent) - Closed Specialty Diagnoses / Procedures Referred By Conttabitha t Referred To Contact Radiology Diagnoses SOB (shortness of breath) Procedures EC ECHOCARDIOGRAM COMPLETE W DOPPLER AND COLOR FLOW MAPPING Logan Kenny MD [address] [place] [address] Phone: tel: fax: Referral ID Status Reason Start Date Expiration Date Visits Re quested Visits Authorized [id number] Closed 10/10/2024 10/10/2026 1 1 Encounter Details Date Type Department Care Team (Latest Contact Info) Description 10/20/2024 6:50 AM EDT - 10/20/2024 11:59 PM EDT Hospital Encounter [facility] [address] [place] [address] [address] [place] [address] Logan Kenny MD [address] [place] [address] SOB (shortness of breath) Discharge Disposition: Home or Self Care Social [...] EDT Office Visit [facility] NPT[facility] [address] [place] [phone] Dorinda Rodriguez PA-C [address] [place] [address] 01/23/2025 9:00 AM EDT Office Visit [facility] Cardiac Surgeons [address] [place] [address] Logan Kenny MD [address] [place] [phone] documented as of this encounter Procedures Procedure Name Priority Date/Time Associated Diagnosis Comments EC ECHOCARDIOGRAM COMPLETE W DOPPLER AND COLOR FLOW MAPPING Routine 10/20/2024 7:53 AM EDT SOB (shortness of breath) documented in this encounter Results * EC ECHOCARDIOGRAM COMPLETE W DOPPLER AND COLOR FLOW MAPPING (10/20/2024 7:53 AM EDT) LV DIASTOLIC PLAX 5.03 cm PYRAMIS Ejection Fraction 60-65% PYRAMIS MITRAL REGURGITATION no PYRAMIS AORTIC STENOSIS no PYRAMIS Anatomical Region Laterality Modality Electrocardiogra phy 10/20/2024 7:16 AM EDT Impressions 10/20/2024 12:45 PM EDT Conclusions * Left ventricular chamber dimension is normal. * Left ventricular function is normal with an estimated ejection fraction of 60-65%. * The left ventricular diastolic function is normal. * Right ventricular systolic function is normal. * Unable to estimate pulmonary arterial systolic pressure due to lack of tricuspid regurgitation jet. Narrative Procedure Note Bear Samuel MD - 10/20/2024 IMPRESSION Conclusions * Left ventricular chamber dimension is normal. * Left ventricular function is normal with an estimated ejectionfraction of 60-65%. * The left ventricular diastolic function is normal. * Right ventricular systolic function is normal. * Unable to estimate pulmonary arterial systolic pressure due to lackof tricuspid regurgitation jet. us Logan Kenny MD IMG ECHO ORDERABLES Final Re sult documented in this encounter Visit Diagnoses Diagnosis SOB (shortness of breath) Shortness of breath documented in this encounter
--- OUTSIDE RECORDS SUMMARY | 2024-10-24 09:00 | XMS_ITS | Encounter Summary ---
Author Organization [place] [address] Care Team Providers Care Senior Health Consultant Name Role Phone Reyna Perez DEMETRIUS Primary Care Provider [phone] Encounter Details Date Type Department Care Team (Late st Contact Info) Description 10/24/2024 9:00 AM EDT Telemedicine [facility] Cardiac Surgeons [address] [place] [address] Logan Kenny MD [address] [place], [place] [phone] ASHD (arteriosclerotic heart disease) (Primary Dx); Ureteral [...] EDT Office Visit [facility] [address] [facility] [place] [phone] Dorinda Rodriguez PA-C [address] [place] [address] 01/23/2025 9:00 AM EDT Office Visit [facility] Cardiac Surgeons [address] [place] [address] Logan Kenny MD [address] [place] [address] documented as of this encounter Visit Diagnoses Diagnosis ASHD (arteriosclerotic heart disease)- Primary Coronary atherosclerosis of unspecified type of vessel, nooksack or graft Ureteral mass Unspecified disorder of kidney and ureter documented in this encounter Care Teams Senior Health Consultant Relationship Specialty Start Date End Date Reyna Perez APRN [address] [facility] [address] [place] [address] PCP - General Nurse Practitioner 10/27/24 documented as of this encounter
--- OUTSIDE RECORDS SUMMARY | 2024-10-25 13:42 | XMS_ITS | Encounter Summary ---
Author Organization [place] [address] Care Team Providers Care Bulk Materials Handling Plant Operator Name Role Phone Unavailable Primary Care Provider Unavailabl e Reason for Visit * Auth/Cert/Inpt Specialty Diagnoses / Procedures Referred By Juan R t Referred To Contact Diagnoses ASHD (arteriosclerotic heart disease) ASHD (arteriosclerotic heart disease) [I25.10] Procedures [place] CORONARY ARTERY BYP W/VEIN & ARTERY GRAFT 2 VEIN MS CABG W/ARTERIAL GRAFT SINGLE ARTERIAL GRAFT MS ECHO TRANSESOPHAG MONTR CARDIAC PUMP FUNCTJ Coronary Artery Bypass Graft, Left Atrial Appendage Ligation, Referral ID Status Reason Start Date Expiration Date Visits Re quested Visits Authorized [id number] 1 1 Encounter Details Date Type Department Care Team (Latest Contact Info) Description 10/25/2024 1:42 PM EDT - 10/25/2024 11:59 PM EDT Hospital Encounter EDG PRE-ADMIT TESTING [place] [address] Discharge Disposition: Home or Self Care [...] acknowledgement of understanding from the receiving PACU/ICU customer care team coach Meds * Agents No agents on file. [...] Ifnot received, call your surgeon's office. Location: [place] Medications on the Day of Surgery Take [...] No alcohol 24 hours prior to surgery. District Representative It is important to have a District Representative, someone who is 18 years or older, [...] concern, please reach out to our department [phone]. Hygiene [place] your teeth and gargle the morning of [...] valuables with you. It is policy that [facility] does not assume responsibility for lost, stolen [...] time Notify your surgeon and Pre-admission testing ([phone]) if you have any changes in your healthconditions or if any new medications are ordered between now and surgery.. Questions or Concerns? If you have any questions or concerns, feel free to call the Pre-Admission testing department at [phone]. We want to make sure you feel safe and have an excellent experience while you are here. Do not reply to this message through [employer] as it may not be answered promptly. Same Day Surgery Unit - [facility] at [phone]; FTT: Main Entrance 1A, stop at front desk admin and you will be sent to [address] [phone]. DOORS OPEN AT 6:00 AM WED-WED AND 6:30 AM ON WEDNESDAY {JADON GIL SE and SSI:[id number]} documented in this encounter Medications at Time [...] PM EDT Office Visit [facility]PT[facility] [address] [place] [address] Dorinda Rodriguez PA-C [address] [facility] [place] [address] 01/23/2025 9:00 AM EDT Office Visit [facility] Cardiac Surgeons [address] [place] [address] Logan Kenny MD [address] [place] [address] documented as of this encounter Visit Diagnoses Not on filedocumented in this encounter
--- OUTSIDE RECORDS SUMMARY | 2024-10-27 11:03 | XMS_ITS | Encounter Summary ---
Author [place] [address] Care Team Providers Care Account Specialist Name Role Phone Reyna Perez DEMETRIUS Primary Care Provider [phone] Reason for Visit * Auth/Cert/Inpt Specialty Diagnoses / Procedures Referred By Juan R acosta Referred To Contact Diagnoses Ureteral mass Ureteral mass [N28.89] Procedures OH CYSTO W/URETEROSCOPY W/LITHOTRIPSY OH CYSTOURETHROSCOPY WITH BIOPSY CYSTOSCOPY LEFT URETEROSCOPY LASER LITHOTRIPSY LEFT STENT PLACEMENT OR EXCHANGE Referral ID Status Reason Start Date Expiration Date Visits Re quested Visits Authorized [id number] 1 1 Encounter Details Date Type Department Care Team (Latest Contact Info) Description 10/27/2024 11:03 AM EDT - 10/27/2024 4:21 PM EDT Hospital Encounter [facility] SAME DAY SURGERY [address] [facility] [place] [address] Patricia Ellison MD [address] [place] [address] Ureteral mass Discharge Disposition: Home or Self Care Social [...] Sign Reading Time Taken Comments Blood Pressure 137/71 10/27/2024 3:58 PM EDT Pulse 56 10/27/2024 3:58 PM EDT Temperature 36.3 C (97.4 F) 10/27/2024 3:58 PM EDT Respiratory Rate 14 10/27/2024 3:58 PM EDT Oxygen Saturation 97% 10/27/2024 3:58 PM EDT Inhaled Oxygen Concentration - - Weight 109.8 kg (242 lb) 10/27/2024 11:45 AM EDT Height 172.7 cm (5' 8 ) 10/27/2024 11:45 AM EDT Body Mass Index 36.8 10/27/2024 11:45 AM EDT documented in this encounter Discharge Instructions * Discharge Instructions* Patricia Ellison MD - 10/27/2024 11:33 AM EDT Images from the original note were not included. You had a mass biopsy today. The stent is tied to a string which you can remove on Wednesday morning by pulling the string taped to your body. You will follow up once the pathology report is back and I will call you with the results. Take tylenol and ibuprofen for pain. Frequent urination and blood inthe urine is normal until the stent is out. If you become ill, call us or go the emergency room. If you don't hear form us, call our office at [phone] to arrange the follow up or surgery. [address] [place] [address] Patricia Ellison MD [phone] +++++++++++++++++++++++++++++++++++++++++++++++++++++++++++++++++++ [facility] Discharge Instructions - Following Anesthesia We appreciate the opportunity to care for you today! Here are a few reminders as you head home: A responsible adult, 18 years or older must be in attendance until tomorrow morning. Rest quietly today. May resume usual diet as tolerated or as directed by your surgeon. Do not drive or operate any machinery until tomorrow morning or as instructed. Do not make any legal or important decisions for the next 24 hours. Do not drink alcoholic beverages or take sleeping pills for 24 hours unless otherwise directed. If you received a nerve block for post-operative pain control, protect your blocked arm/leg. It maybe numb. Carefully pad your limb to prevent pressure sores and other injuries. Be careful with applying cold/warm to the blocked limb. Numbness will alter the sensation of the limb and could damage your skin if you cannot correctly feel the temperature. If you have questions or concerns regarding your anesthesia experience, please call our office at . Get Well Soon! [facility] +++++++++++++++++++++++++++++++++++++++++++++++++++++++++++++++++++ documented in this encounter Medications at Time [...] Nausea. 09/26/2024 documented as of this encounter Ordered Prescriptions Prescription Sig Dispense Quantity Refills Last Filled Start Date End Date HYDROcodone-acetam inophen (NORCO) 5-325 mg Oral Tablet Take 1 Tablet by mouth every 6 hours as needed for Acute Pain > 3 Days Medically Necessary (R52) or Acute Pain (R52). 12 Tablet 10/27/2024 documented in this encounter Discharge Disposition Disposition Code Departure Means Destination Comment s Home or Self Care Car Home documented in this encounter H&P Notes * Ashvin Sosa NP - 10/27/2024 11:20 AM EDT [facility] History and Physical Name: Ernst Pugh ADDRESS: [address] [place] [address] [place] [address] : 1975 AGE: 49 y.o. Assessment: Ureteral mass [N28.89] Plan: Procedure(s): CYSTOSCOPY LEFT URETEROSCOPY LASER LITHOTRIPSY LEFT STENT PLACEMENT OR EXCHANGE per Patricia Ellison MD Admitting Physician: Patricia Ellison MD Date of Admit: 10/27/2024 Subjective SUBJECTIVE Chief Complaint: Ureteral mass [N28.89] History of Present Illness: Patient is a 49 y.o. male with Ureteral mass [N28.89] who presents for surgical intervention. Past Medical History: Diagnosis Date CAD (coronary artery disease) Heartburn Hyperlipidemia Hypertension Kidney mass left PR (myocardial infarction) (HCC) 09/17/2024 Motion sickness Past Surgical History: Procedure Laterality Date CARDIAC CATHETERIZATION CORONARY ANGIOPLASTY WITH STENT PLACEMENT 09/19/2024 Prior to Admission medications Medication Sig Start Date End Date Last Dose Authorizing Provider aspirin 81 mg Oral Tablet, Delayed Release (E.C.) Take 81 mg by mouth daily. 09/04/24 Provider, Historical atorvastatin (LIPITOR) 80 mg Oral Tablet Take 80 mg by mouth daily. 09/19/24 Provider, Historical Bacillus coagulans-inulin 1 billion-250 cell-mg Oral Capsule Take by mouth daily. Provider, Historical cholecalciferol, vitamin D3, 25 mcg (1,000 unit) Oral Tablet Take 1,000 Units by mouth daily. Provider, Historical Coenzyme Q10 100 mg Oral Capsule Take by mouth daily. Provider, Historical famotidine (PEPCID) 40 mg Oral Tablet Take 40 mg by mouth 2 times daily. Patient not taking: Reported on 10/25/2024 09/18/24 Provider, Historical fUROsemide (LASIX) 40 mg Oral Tablet Take 40 mg by mouth daily. 09/22/24 Provider, Historical lansoprazole (PREVACID) 30 mg Oral Capsule, Delayed Release(E.C.) Take 30 mg by mouth 2 times daily. 09/18/24 Provider, Historical losartan (COZAAR) 50 mg Oral Tablet Take 50 mg by mouth daily. 10/05/24 Provider, Historical metoprolol succinate (TOPROL-XL) 25 mg Oral Tablet Sustained Release 24 hr Take 25 mg by mouth daily. 07/11/24 Provider, Historical nicotine (NICODERM CQ) 21 mg/24 hr TD Patch [address] 1 Patch onto the skin daily. 09/20/24 Provider, Historical prasugreL HCl (EFFIENT) 10 mg Oral Tablet Take 10 mg by mouth daily. 09/19/24 Provider, Historical prochlorperazine (COMPAZINE) 10 mg Oral Tablet Take 10 mg by mouth every 8 hours as needed for Nausea. 09/26/24 Provider, Historical No Known Allergies Social History Socioeconomic History Marital status: Tobacco Use Smoking status: Every Day Current packs/day: 1.00 Average packs/day: 1 pack/day for 35.5 years (35.5 ttl pk-yrs) Types: Cigarettes Start date: 1989 Smokeless tobacco: Never Vaping Use Vaping status: Never Used Substance and Sexual Activity Alcohol use: Not Currently Drug use: Not Currently Sexual activity: Yes Family History Problem Relation Age of Onset Asthma Mother High Cholesterol Father High Blood Pressure Father Heart Disease Father Diabetes Father Cancer Father Asthma Father Anesth Problems Neg Hx Active Hospital Problems Diagnosis *Ureteral mass Blood pressure 140/74, pulse 79, temperature 97.3 ??F (36.3 ??C), temperature source Forehead, resp. rate 20, SpO2 97%.Pain: 0/10 Review of Systems: The listed systems were reviewed and reveal the following in addition to any already discussed in the HPI: Review of Systems Constitutional: Negative. Negative for chills, fever and weight loss. HENT: Negative for congestion, ear discharge, ear pain, hearing loss, nosebleeds and sore throat. Eyes: Negative for blurred vision, double vision, pain, discharge and redness. Respiratory: Negative. Negative for cough, hemoptysis, sputum production, shortness of breath and wheezing. Cardiovascular: Negative for chest pain, palpitations, orthopnea and leg swelling. Hypertension: well controlled Hyperlipidemia CAD/PR (VIC RCA 09/19/24): Coronary Stents Peripheral arterial disease (duplex 10/19/24 - LISBET 1-39%, LICA 40-59%): Carotid Disease Shortness of breath: GALLARDO Scheduled for open heart surgery after urology c/o is resolved. Gastrointestinal: Negative. Negative for abdominal pain, blood in stool, constipation, diarrhea, heartburn, melena, nausea and vomiting. Genitourinary: Negative. Negative for dysuria, flank pain, frequency, hematuria and urgency. Hx of Ureteral mass Incidentally found mass when he presented with NSTEMI in September Denies any changes since exam per Dr Ellison. Denies pain or LUTS Musculoskeletal: Negative. Negative for back pain and myalgias. Skin: Negative. Negative for itching and rash. Neurological: Negative for dizziness, seizures, weakness and headaches. Endo/Heme/Allergies: Negative. Psychiatric/Behavioral: Negative for depression. The patient is nervous/anxious. Objective OBJECTIVE Physical Exam: There is no height or weight on file to calculate BMI. There is no height or weight on file to calculate BSA. Physical Exam Vitals and nursing note reviewed. Exam conducted with a program director air talent present. Constitutional: General: He is not in acute distress. Appearance: Normal appearance. He is well-developed. He is obese. He is not ill- appearing or diaphoretic. HENT: Head: Normocephalic. Nose: Nose normal. No congestion or rhinorrhea. Mouth/Throat: Pharynx: No oropharyngeal exudate or posterior oropharyngeal erythema. Eyes: General: No scleral icterus. Right eye: No discharge. Left eye: No discharge. Conjunctiva/sclera: Conjunctivae normal. Pupils: Pupils are equal, round, and reactive to light. Neck: Thyroid: No thyromegaly. Vascular: No JVD. Trachea: No tracheal deviation. Cardiovascular: Rate and Rhythm: Normal rate and regular rhythm. Pulses: Normal pulses. Heart sounds: Normal heart sounds. No murmur heard. No friction rub. No gallop. Pulmonary: Effort: Pulmonary effort is normal. No respiratory distress. Breath sounds: Normal breath sounds. No stridor. No wheezing, rhonchi or rales. Chest: Chest wall: No tenderness. Abdominal: General: Bowel sounds are normal. There is no distension. Palpations: Abdomen is soft. Tenderness: There is no abdominal tenderness. There is no guarding. Genitourinary: Comments: Deferred Musculoskeletal: General: No tenderness or deformity. Normal range of motion. Cervical back: Normal range of motion and neck supple. Lymphadenopathy: Cervical: No cervical adenopathy. Skin: General: Skin is warm and dry. Capillary Refill: Capillary refill takes less than 2 seconds. Coloration: Skin is not pale. Findings: No erythema or rash. Neurological: General: No focal deficit present. Mental Status: He is alert and oriented to person, place, and time. Mental status is at baseline. Cranial Nerves: No cranial nerve deficit. Sensory: No sensory deficit. Motor: No weakness. Coordination: Coordination normal. Gait: Gait normal. Psychiatric: Behavior: Behavior normal. Thought Content: Thought content normal. Judgment: Judgment normal. Labs:Reviewed Radiology: CT Abdomen 10/19/24 1. Severe left hydronephrosis with soft tissue/ masslike thickening of the proximal left ureter. Urothelial malignancy is a differential consideration and urology consultation is recommended. 2. Thinning of the left renal cortex suggests chronicity of the left urinary obstruction. EKG:EKG 09/2024 (in media) - SR Echo 10/20/24 - * Left ventricular chamber dimension is normal. * Left ventricular function is normal with an estimated ejection fraction of 60-65%. * The left ventricular diastolic function is normal. * Right ventricular systolic function is normal. * Unable to estimate pulmonary arterial systolic pressure due to lack of tricuspid regurgitation jet. Ashvin Sosa NP 10/27/2024 Cosigned by Gurwinder Greene MD at 10/27/2024 1:04 PM EDT documented in this encounter Procedure Notes * Patricia Ellison MD - 10/27/2024 2:42 PM EDT Pre-procedure diagnosis: left ureteral mass Post-procedure diagnosis: same Procedure: cystoscopy, left ureteroscopy, mass biopsy, and stent placement Specimens: ureteral mass and urine cytology Blood loss: minimal Findings: large ureteral mass occluding the lumen of the proximal/mid ureter biopsied x2 with netinol basket Details of the procedure: Patient is brought back to the operating room and preoperative antibiotics given. Patient is placed in the dorsal lithotomy after anesthesia is induced and a time out is done confirming patient identity and procedure. Cystoscopy is performed with 22-Fr sheath using the 30 degree lens. Prostate noted to be enlarged with a high bladder neck. The ureteral orifice is identified and cannulated with a sensor wire. Our semirigid ureteroscope was advanced into the ureter and up to the mass in the mid/proximal ureter. We confirmed the mass and obtained a urine cytology through the scope. A second wire was placed.A flexible ureteroscope was used to advance past the mass over the wire. We replaced our wire with a netinol basket which was used to sample tissue from the mass. We opted to use our safety wire and place a ureteral stent on string. Bladder drained, scope removed. Counts correct x2. No complications evident. Patricia Ellison MD F/u: stent removal on Monday 10/30 will discuss next steps pending pathology documented in this encounter Nursing Notes * Shoshana Rankin RN - 10/23/2024 2:12 PM EDT [facility] - [phone] Request sent to Reyna Perez APRN * Shoshana Rankin RN - 10/23/2024 2:09 PM EDT URGENT CLEARANCE REQUEST ATTENTION: Reyna Perez ECOLOGICAL RISK ASSESSOR Patient Ernst Pugh 1975 DATE OF SURGERY: 10/27/2024 WITH Patricia Sena MD FOR: OH CYSTO W/URETEROSCOPY W/LITHOTRIPSY [32063] (CYSTOSCOPY LEFT URETEROSCOPY LASER LITHOTRIPSY LEFT STENT PLACEMENT OR EXCHANGE) THE ANESTHESIA DEPARTMENT IS REQUESTING A CLEARANCE RELATED TO: Recent PCI. Can patient hold Effient ? Surgeon is asking if patient cannot hold Effient, can patient proceed with procedure? Anesthesia type:General PLEASE RESPOND TO THIS ENCOUNTER OR CALL WITH ANY QUESTIONS/CONCERNS PHONE: [phone] [facility] PRE-ADMISSION TESTING DEPARTMENT documented in this encounter Plan of Treatment Upcoming Encounters Date Type Department Care Team (Late st Contact Info) Description 12/21/2024 2:30 PM EDT Office Visit [facility] Urology NPTFTT [address] [place] [address] Dorinda Rodriguez PA-C [address] [place] [address] 01/23/2025 9:00 AM EDT Office Visit [facility] Cardiac Surgeons [address] [place] [address] Logan Kenny MD [address] [place] [id number] documented as of this encounter Procedures Procedure Name Priority Date/Time Associated Diagnosis Comments SCANNED RHYTHM STRIPS 10/30/2024 11:09 AM EDT PATHOLOGY TISSUE REQUEST Routine 025 2:22 PM EDT Ureteral mass NON-MUSIC ORCHESTRATOR CYTOLOGY REQUEST Routine 025 2:03 PM EDT Ureteral mass OH CYSTOURETHROSCOPY WITH BIOPSY 10/27/2024 1:38 PM EDT Ureteral mass Special Needs sk CYSTOSCOPY URETEROSCOPY STENT PLACEMENT OR EXCHANGE 10/27/2024 1:38 PM EDT Ureteral mass Special Needs sk documented in this encounter Results * SCANNED RHYTHM STRIPS (10/30/2024 11:09 AM EDT) Anatomical Region Laterality Modality Other 10/30/2024 11:0 9 AM EDT us Unknown Provider IMG ECG ORDERABLES Final Result * PATHOLOGY TISSUE REQUEST (10/27/2024 2:22 PM EDT) CASE REPORT Surgical Pathology Case: [id number] Authorizing Provider: Patricia Ellison MD Collected: 10/27/2024 1422 Ordering Location: [facility] Received: 10/27/2024 1908 Pathologist: Tesha Love MD Specimen: Ureter, Left, left ureteral mass 11/02/2024 8:25 AM EDT [facility] CLINICAL HISTORY large ureteral mass occluding the lumen of the proximal/mid ureter biopsied x2 with netinol basket 11/02/2024 8:25 AM EDT [facility] FINAL DIAGNOSIS A. Ureteral mass, biopsy: - Non invasive Low-grade papillary urothelial carcinoma. - Negative for muscularis propria muscle 11/02/2024 8:25 AM EDT [facility] at [address] Ellison was notified on 11-02-24, HR Secure chat. This case has been seen in intradepartmental consultation with agreement./QL A urinary bladder biopsy synoptic was used in this case with tumor site indicated ureter proximal mid. 11/02/2024 8:25 AM EDT [facility] GROSS DESCRIPTION The specimen is received in formalin, labeled with the patient's name, medical record number, and left ureteral mass . It consists of irregular schaffer-white, friable tissue fragments, ranging from 0.2 by less than 0.1 cm to 0.7 x 0.5 by less than 0.1 cm. The specimen is submitted in toto in cassette A1. RIK Denton PA(ASCP) 10/30/2024 11/02/2024 8:25 AM EDT [facility] MICROSCOPIC DESCRIPTION The microscopic examination may have been rendered in whole, or in part, by analyzing high-resolution digital images (whole slide images) on the [employer] Digital Pathology platform validated at [facility]. 11/02/2024 8:25 AM EDT [facility] SYNOPTIC REPORT CHECKLIST URINARY BLADDER: Biopsy and Transurethral Resection of Bladder Tumor (TURBT) URINARY BLADDER: BIOPSY AND TRANSURETHRAL RESECTION OF BLADDER TUMOR (TURBT) - All Specimens Protocol posted: 01/27/2023 SPECIMEN Procedure: Biopsy TUMOR Tumor Site: ureter , proximal- mid Histologic Type: Papillary urothelial carcinoma, noninvasive Histologic Grade: Low-grade Tumor Extent: Noninvasive papillary carcinoma Lymphatic and / or Vascular Invasion: Not identified Tumor Configuration: Papillary Muscularis Propria (detrusor muscle): Not identified 11/02/2024 8:25 AM EDT [facility] EMBEDDED IMAGES 11/02/2024 8:25 AM EDT [facility] Tissue STRUCTURE OF LEFT URETER / Unknown 10/27/2024 2:22 PM EDT 10/27/2024 7:08 PM EDT us Patricia Ellison MD PATHOLOGY ORDERABLES Final R esult [address] [phone] [place] [address] * NON-MUSIC ORCHESTRATOR CYTOLOGY REQUEST (10/27/2024 2:03 PM EDT) CASE REPORT Non-gynecologic Cytology Case: [id number] Authorizing Provider: Patricia Ellison MD Collected: 10/27/2024 1403 Ordering Location: [facility] Received: 10/27/2024 1415 Pathologist: Jerome Hickman MD Specimen: Urethra, urine cytology 10/30/2024 1:34 PM EDT [facility] NON-MUSIC ORCHESTRATOR CYTOLOGY FINAL DIAGNOSIS Catheterized urine, left ureter: - Negative for high-grade urothelial carcinoma. 10/30/2024 1:34 PM EDT [facility] at 1334 EDT EMBEDDED IMAGES 10/30/2024 1:34 PM EDT [facility] MICROSCOPIC DESCRIPTION Microscopic examination is performed and the findings corroborate the diagnosis. 10/30/2024 1:34 PM EDT [facility] Gross Description Urine, Rec'd 10ml of bloody fluid. (TP) 10/30/2024 1:34 PM EDT [facility] Urine URETHRAL STRUCTURE / Unknown 10/27/2024 2:03 PM EDT 10/27/2024 2:15 PM EDT Patricia Ellison MD CYTOLOGY ORDERABLES Final Re sult [facility] [address] [place] [address] documented in this encounter Visit Diagnoses Diagnosis Ureteral mass- Primary Unspecified disorder of kidney and ureter documented in this encounter Admitting Diagnoses Diagnosis Ureteral mass Unspecified disorder of kidney and ureter documented in this encounter Administered Medications Inactive Administered Medications - up to 1 most recent administrations Medication Order MAR Action Action Date Dose Rate Site acetaminophen (TYLENOL) tablet 1,000 mg 1,000 mg, Oral, PREPROCEDURE, 1 dose, Starting on Wed10/27/24 at 1133, Until Wed10/27/24 at 1205, Coanalgesic, Do not give if patient received acetaminophen within the last 6 hours Maximum adult dose of acetaminophen is 4000 mg from all sources in 24 hours., Pre-op (Holding/SDS Meds) Given 10/27/2024 12:05 PM EDT 1,000 mg lactated ringers infusion Intravenous, at 50 mL/hr, PREPROCEDURE CONTINUOUS, Starting on Wed10/27/24 at 1133, Until Wed10/27/24 at 2026, To be given in SDS/Pre-op Holding Area, Pre-op (Holding/SDS Meds) IV Restarted 10/27/2024 1:44 PM EDT ondansetron (ZOFRAN) injection 4 mg 4 mg, Intravenous, ONCE PRN, 1 dose, Starting on Wed10/27/24 at 1430, Until Wed10/27/24 at 2026, Nausea, First Line Antiemetic, Do not give if patient received granisetron (Kytril) or ondansetron (Zofran) within 4 hours., PACU ondansetron (ZOFRAN-ODT) disintegrating tablet 8 mg 8 mg, Oral, ONCE PRN, 1 dose, Starting on Wed10/27/24 at 1430, Until Wed10/27/24 at 2026, Nausea, First Line Antiemetic, Do not give if patient received granisetron (Kytril) or ondansetron (Zofran) within 4 hours., PACU oxyCODONE (ROXICODONE) immediate release tablet 5 mg 5 mg, Oral, EVERY 1 HOUR PRN, Starting on Wed10/27/24 at 1430, Until Wed10/27/24 at 2026, Pain, When tolerating oral intake. Maximum dose not to exceed 10 mg unless otherwise directed by the Anesthesia Coordinator., PACU Given 10/27/2024 4:03 PM EDT 5 mg phenazopyridine (PYRIDIUM) tablet 100 mg 100 mg, Oral, ONCE, 1 dose, On Wed10/27/24 at 1545, PACU & Post-op Given 10/27/2024 3:47 PM EDT 100 mg promethazine (PHENERGAN) 12.5 mg in sodium chloride 0.9% 10 mL injection 12.5 mg, Intravenous, PRN, Starting on Wed10/27/24 at 1430, Until Wed10/27/24 at 2026, Nausea, Second Line Antiemetic, For nausea unrelieved by droperidol or pre-op antiemetic. Begin with lowest dose unless otherwise directed. Give remainder of dose if nausea unrelieved in 20 minutes. Not to exceed 25 mg in one hour unless otherwise ordered by Anesthesia Coordinator. VESICANT , PACU promethazine (PHENERGAN) 6.25 mg in sodium chloride 0.9% 10 mL injection 6.25 mg, Intravenous, PRN, Starting on Wed10/27/24 at 1430, Until Wed10/27/24 at 2026, Nausea, Second Line Antiemetic, For nausea unrelieved by droperidol or pre-op antiemetic. Begin with lowest dose unless otherwise directed. Give remainder of dose if nausea unrelieved in 20 minutes. Not to exceed 25 mg in one hour unless otherwise ordered by Anesthesia Coordinator. VESICANT , PACU documented in this encounter Active and Recently Administered Medications Times are shown in EDT. Scheduled Medication Order 10/25/2024 10/26/2024 10/27/2024 ceFAZolin (ANCEF) IVPB 2 g (COMPLETED) 2 g, Intravenous, LEAD VULCANIZING OPERATOR TO O.R., 1 dose, On Wed10/27/24 at 1145, Administer over 30 Minutes, redose 1g q 4h IV intraop, Reason for Therapy: Surgical Prophylaxis 1344 (Given - Provid er: Phuong Clark CRNA) phenazopyridine (PYRIDIUM) tablet 100 mg (COMPLETED) 100 mg, Oral, ONCE, 1 dose, On Wed10/27/24 at 1545, PACU & Post-op 1547 (Given - Provid er: Kathy Guaman RN) PRN Medication Order 10/25/2024 10/26/2024 10/27/2024 acetaminophen (TYLENOL) tablet 1,000 mg (COMPLETED) 1,000 mg, Oral, PREPROCEDURE, 1 dose, Starting on Wed10/27/24 at 1133, Until Wed10/27/24 at 1205, Coanalgesic, Do not give if patient received acetaminophen within the last 6 hours Maximum adult dose of acetaminophen is 4000 mg from all sources in 24 hours., Pre-op (Holding/SDS Meds) 1205 (Given - Provid er: Tesha Banda RN) droPERidol (INAPSINE) injection 0.625 mg 0.625 mg, Intravenous, PRN, Starting on Wed10/27/24 at 1430, Until Wed10/27/24 at 2026, Nausea, First Line Antiemetic, If unable to give Zofran. Give second dose if nausea unrelieved in 10 minutes. May give total of two doses if needed., PACU fentaNYL (SUBLIMAZE) injection 25 mcg 25 mcg, Intravenous, EVERY 5 MIN PRN, Starting on Wed10/27/24 at 1430, Until Wed10/27/24 at 2026, Pain, For initial pain. Maximum dose not to exceed 100 mcg., PACU HYDROmorphone (DILAUDID) injection 0.5 mg 0.5 mg, Intravenous, EVERY 10 MIN PRN, 4 doses, Starting on Wed10/27/24 at 1430, Until Wed10/27/24 at 2026, Breakthrough Pain, Do not exceed 2 mg in one hour unless otherwise ordered by the Anesthesia Coordinator For pain unrelieved by fentanyl or oral opioid, PACU lactated ringers infusion Intravenous, at 50 mL/hr, PREPROCEDURE CONTINUOUS, Starting on Wed10/27/24 at 1133, Until Wed10/27/24 at 2026, To be given in SDS/Pre-op Holding Area, Pre-op (Holding/SDS Meds) 1204 (New Bag - Prov ider: Tesha Banda RN)1343 (IV Paused - Provider: Phuong Clark CRNA - Comment: Switch to gravity)1344 (IV Restarted - Provider: Phuong Clark CRNA)1425 (Anesthesia Volume Adjustment - Provider: Phuong Clark CRNA)2026 (Due: Order Ending - Provider: Automatic Discharge Provider - Comment: [Order ends at this time. Document the following action when infusion is complete: Stopped]) lidocaine HCL (GLYDO) 2 % mucosal jelly 2% (CANCELED) INTRAPROCEDURE, Starting on Wed10/27/24 at 1426, Until Wed10/27/24 at 1625, Intra-op 1426 (Given - Provid er: Patricia Ellison MD) ondansetron (ZOFRAN) injection 4 mg(Linked Group 1) 4 mg, Intravenous, ONCE PRN, 1 dose, Starting on Wed10/27/24 at 1430, Until Wed10/27/24 at 2026, Nausea, First Line Antiemetic, Do not give if patient received granisetron (Kytril) or ondansetron (Zofran) within 4 hours., PACU ondansetron (ZOFRAN-ODT) disintegrating tablet 8 mg(Linked Group 1) 8 mg, Oral, ONCE PRN, 1 dose, Starting on Wed10/27/24 at 1430, Until Wed10/27/24 at 2026, Nausea, First Line Antiemetic, Do not give if patient received granisetron (Kytril) or ondansetron (Zofran) within 4 hours., PACU oxyCODONE (ROXICODONE) immediate release tablet 5 mg 5 mg, Oral, EVERY 1 HOUR PRN, Starting on Wed10/27/24 at 1430, Until Wed10/27/24 at 2026, Pain, When tolerating oral intake. Maximum dose not to exceed 10 mg unless otherwise directed by the Anesthesia Coordinator., PACU 1503 (Given - Provid er: Sofie Rebolledo RN)1603 (Given - Provider: Kathy Guaman RN) promethazine (PHENERGAN) 12.5 mg in sodium chloride 0.9% 10 mL injection(Linked Group 2) 12.5 mg, Intravenous, PRN, Starting on Wed10/27/24 at 1430, Until Wed10/27/24 at 2026, Nausea, Second Line Antiemetic, For nausea unrelieved by droperidol or pre-op antiemetic. Begin with lowest dose unless otherwise directed. Give remainder of dose if nausea unrelieved in 20 minutes. Not to exceed 25 mg in one hour unless otherwise ordered by Anesthesia Coordinator. VESICANT , PACU promethazine (PHENERGAN) 6.25 mg in sodium chloride 0.9% 10 mL injection(Linked Group 2) 6.25 mg, Intravenous, PRN, Starting on Wed10/27/24 at 1430, Until Wed10/27/24 at 2026, Nausea, Second Line Antiemetic, For nausea unrelieved by droperidol or pre-op antiemetic. Begin with lowest dose unless otherwise directed. Give remainder of dose if nausea unrelieved in 20 minutes. Not to exceed 25 mg in one hour unless otherwise ordered by Anesthesia Coordinator. VESICANT , PACU Linked Groups Order Group 1: ondansetron (ZOFRAN) injection 4 mgJump to med 4 mg, Intravenous, ONCE PRN, 1 dose, Starting on Wed10/27/24 at 1430, Until Wed10/27/24 at 2026, Nausea, First Line Antiemetic, Do not give if patient received granisetron (Kytril) or ondansetron (Zofran) within 4 hours., PACU Or ondansetron (ZOFRAN-ODT) disintegrating tablet 8 mgJump to med 8 mg, Oral, ONCE PRN, 1 dose, Starting on Wed10/27/24 at 1430, Until Wed10/27/24 at 2026, Nausea, First Line Antiemetic, Do not give if patient received granisetron (Kytril) or ondansetron (Zofran) within 4 hours., PACU Group 2: promethazine (PHENERGAN) 6.25 mg in sodium chloride 0.9% 10 mL injectionJump to med 6.25 mg, Intravenous, PRN, Starting on Wed10/27/24 at 1430, Until Wed10/27/24 at 2026, Nausea, Second Line Antiemetic, For nausea unrelieved by droperidol or pre-op antiemetic. Begin with lowest dose unless otherwise directed. Give remainder of dose if nausea unrelieved in 20 minutes. Not to exceed 25 mg in one hour unless otherwise ordered by Anesthesia Coordinator. VESICANT , PACU Or promethazine (PHENERGAN) 12.5 mg in sodium chloride 0.9% 10 mL injectionJump to med 12.5 mg, Intravenous, PRN, Starting on Wed10/27/24 at 1430, Until Wed10/27/24 at 2026, Nausea, Second Line Antiemetic, For nausea unrelieved by droperidol or pre-op antiemetic. Begin with lowest dose unless otherwise directed. Give remainder of dose if nausea unrelieved in 20 minutes. Not to exceed 25 mg in one hour unless otherwise ordered by Anesthesia Coordinator. VESICANT , PACU documented in this encounter Orders Medications Ordered That Rd ht Not Have Been Administered Count Last Ordered Date First Ordered Date ceFAZolin (ANCEF) IVPB 2 g 1 10/27/2024 droPERidol (INAPSINE) injection 0.625 mg 1 10/27/2024 fentaNYL (SUBLIMAZE) injection 25 mcg 1 HYDROmorphone (DILAUDID) injection 0.5 mg 10/27/2024 lidocaine HCL (GLYDO) 2 % mucosal jelly 2% 1 10/27/2024 ondansetron (ZOFRAN) injection 4 mg 1 10/27 ondansetron (ZOFRAN-ODT) dis integrating tablet 8 mg 1 10/27/2024 promethazine (PHENERGAN) 12. 5 mg in sodium chloride 0.9% 10 mL injection 1 10/27/2024 promethazine (PHENERGAN) 6.2 5 mg in sodium chloride 0.9% 10 mL injection 1 10/27/2024 Discharge Count Last Ordered Date First Orde red Date DISCHARGE PATIENT 1 10/27/2024 documented in this encounter Care Teams Account Specialist Relationship Specialty Start Date End Date Reyna Perez APRN [address] [place] [phone] PCP - General Nurse Practitioner 10/27/24 documented as of this encounter
--- OUTSIDE RECORDS SUMMARY | 2024-10-27 13:00 | XMS_ITS | Encounter Summary ---
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 [facility] [place] [address] Patricia Ellison MD [address] [place], [place] [id number] CYSTOSCOPY URETEROSCOPY STENT PLACEMENT OR EXCHANGE Surgery [...] hear form us, call our office at [phone] to arrange the follow up or surgery. [address] [place] [address] Patricia Ellison MD [phone] +++++++++++++++++++++++++++++++++++++++++++++++++++++++++++++++++++ [facility] Discharge Instructions - Following Anesthesia We [...] our office at . Get Well Soon! [place] Anesthesia +++++++++++++++++++++++++++++++++++++++++++++++++++++++++++++++++++ documented in this encounter Medications [...] Sosa NP - 10/27/2024 11:20 AM EDT [facility] History and Physical Name: Ernst Pugh ADDRESS: [address] [place] [address] [place] [address] : 1975 AGE: 49 y.o. Assessment: Ureteral [...] disease) Heartburn Hyperlipidemia Hypertension Kidney mass left [place] (myocardial infarction) (HCC) 09/17/2024 Motion sickness Past [...] and leg swelling. Hypertension: well controlled Hyperlipidemia CAD/ME (VIC RCA 09/19/24): Coronary Stents Peripheral arterial [...] nursing note reviewed. Exam conducted with a drain cleaner plumber present. Constitutional: General: He is not in [...] Rankin RN - 10/23/2024 2:12 PM EDT [facility] - [phone] Request sent to Reyna Perez APRN * Shoshana Rankin RN - 10/23/2024 2:09 PM EDT URGENT CLEARANCE REQUEST ATTENTION: Reyna Perez APRN Patient Ernst Pugh 1975 DATE OF SURGERY: 10/27/2024 WITH Patricia Sena MD FOR: AR CYSTO W/URETEROSCOPY W/LITHOTRIPSY [27252] (CYSTOSCOPY LEFT URETEROSCOPY LASER LITHOTRIPSY LEFT STENT PLACEMENT OR EXCHANGE) THE ANESTHESIA DEPARTMENT IS REQUESTING A CLEARANCE RELATED TO: Recent PCI. Can patient hold Effient ? Surgeon is asking if patient cannot hold Effient, can patient proceed with procedure? Anesthesia type:General PLEASE RESPOND TO THIS ENCOUNTER OR CALL WITH ANY QUESTIONS/CONCERNS PHONE: [phone] Thank You [facility] PRE-ADMISSION TESTING DEPARTMENT documented in this encounter Plan of Treatment Upcoming Encounters Date Type Department Care Team (Late st Contact Info) Description 12/21/2024 2:30 PM EDT Office Visit [facility] [address] [place] [address] Dorinda Rodriguez PA-C [address] [place] [address] 01/23/2025 9:00 AM EDT Office Visit [facility] Cardiac Surgeons [address] [place] [address] Logan Kenny MD [address] [place] [address] [place], [place] [address] documented as of this encounter Procedures Procedure Name Priority Date/Time Associated Diagnosis Comments SCANNED RHYTHM STRIPS 10/30/2024 11:09 AM EDT PATHOLOGY TISSUE REQUEST Routine 025 2:22 PM EDT Ureteral mass NON-CONFORMAL PAD FORMER CYTOLOGY REQUEST Routine 025 2:03 PM EDT Ureteral mass AR CYSTOURETHROSCOPY WITH BIOPSY 10/27/2024 1:38 PM EDT [...] PM EDT) CASE REPORT Surgical Pathology Case: [id number] Authorizing Provider: Patricia Ellison MD Collected: 10/27/2024 [...] muscularis propria muscle 11/02/2024 8:25 AM EDT [facility] at [address] Ellison was notified on 11-02-24, HR Secure chat. This case has been seen in intradepartmental consultation with agreement./QL A urinary bladder biopsy synoptic was used in this case with tumor site indicated ureter proximal mid. 11/02/2024 8:25 AM EDT [facility] GROSS DESCRIPTION The specimen is received [...] [place] PA(ASCP) 10/30/2024 11/02/2024 8:25 AM EDT [facility] MICROSCOPIC DESCRIPTION The microscopic examination may have been rendered in whole, or in part, by analyzing high-resolution digital images (whole slide images) on the [employer] Digital Pathology platform validated at [facility]. 11/02/2024 8:25 AM EDT [facility] SYNOPTIC REPORT CHECKLIST URINARY BLADDER: Biopsy and [...] muscle): Not identified 11/02/2024 8:25 AM EDT [facility] EMBEDDED IMAGES 11/02/2024 8:25 AM EDT [facility] Tissue STRUCTURE OF LEFT URETER / Unknown 10/27/2024 2:22 PM EDT 10/27/2024 7:08 PM EDT Patricia Ellison MD PATHOLOGY ORDERABLES Final R esult [facility] [address] [place], [place] [address] [phone] [facility] [address] [place] [address] * NON-CONFORMAL PAD FORMER CYTOLOGY REQUEST (10/27/2024 2:03 PM EDT) CASE REPORT Non-gynecologic Cytology Case: [id number] Authorizing Provider: Patricia Ellison MD Collected: 10/27/2024 1403 Ordering Location: [facility] Received: 10/27/2024 1415 Pathologist: Jerome Hickman MD Specimen: Urethra, urine cytology 10/30/2024 1:34 PM EDT [facility] NON-CONFORMAL PAD FORMER CYTOLOGY FINAL DIAGNOSIS Catheterized urine, left ureter: - Negative for high-grade urothelial carcinoma. 10/30/2024 1:34 PM EDT [facility] at 1334 EDT EMBEDDED IMAGES 10/30/2024 1:34 PM EDT [facility] MICROSCOPIC DESCRIPTION Microscopic examination is performed and the findings corroborate the diagnosis. 10/30/2024 1:34 PM EDT [facility] Gross Description Urine, Rec'd 10ml of bloody fluid. (TP) 10/30/2024 1:34 PM EDT [facility] Urine URETHRAL STRUCTURE / Unknown 10/27/2024 2:03 PM EDT 10/27/2024 2:15 PM EDT Patricia Ellison MD CYTOLOGY ORDERABLES Final Re sult [facility] [address] [place] [address] documented in this encounter Visit Diagnoses Diagnosis [...] IVPB 2 g (COMPLETED) 2 g, Intravenous, IRRIGATION TECHNICIAN TO O.R., 1 dose, On Wed10/27/24 at [...] 10/27/2024 documented in this encounter Care Teams Mobility Manager Relationship Specialty Start Date End Date Reyna Perez APRN [facility] [address] [place] [id number] PCP - General Nurse Practitioner 10/27/24 documented as of this encounter
--- OUTSIDE RECORDS SUMMARY | 2024-10-27 13:38 | XMS_ITS | Encounter Summary ---
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 [address] Sherita Moya MD [address] [place] [address] [address] [place] [address] Record, Jhoana Gutierrez APRN [address] [place], [place] [id number] Anesthesia Record Procedure Summary Procedure Name Responsible [...] acknowledgement of understanding from the receiving PACU/ICU pressure steamer tender Meds Name Total lidocaine injection 1% 50 mg fentaNYL 50 MCG/ML INJ 125 mcg propofol (DIPRIVAN) injection 200 mg dexamethasone (DECADRON) injection 4 mg/ mL 4 mg ondansetron (ZOFRAN) injection 4 mg /2 m L 4 mg ceFAZolin (ANCEF) IVPB 2 g 2 g lactated ringers infusion 500 mL * Agents Name O2 N2O Air Et Sevoflurane * Blood No blood administrations on file. [...] 5 ; Placement Date: 10/27/24; Placement Time: 140 (created via procedure documentation); Removal Date: 10/27/24; Removal Time: 14310/27/24 1406 by Phuong Clark CRNA 10/27/24 143 by Phuong Clark CRNA documented in this [...] on file documented as of this encounter Procedure Notes * Phuong Clark CRNA - 10/27/2024 2:06 PM EDTAssociated Order(s): Airway Intraop Airway Placement: Date/Time: 10/27/2024 2:06 PM Induction type: IV Mask size: Standard adult Pre-Oxygenation: BMI guided pre-O2 Mask ventilation: Not attempted Airway type: LMA Device size: 5 Secured by: Tape Placement verified: End tidal CO2 and Symmetric chest wall motion Condition: Atraumatic and Unchanged Insertion attempts: 1 Title: SOLAR MAINTENANCE TECHNICIAN documented in this encounter OR Notes * Anesthesia Postprocedure Evaluation - Sherita Moya MD - 10/27/2024 5:30 PM EDT Post-Anesthesia Evaluation Note Patient Name: Ernst Pugh Patient Date: October 27, 2024 Post-Anesthesia Evaluation Patient Location: PACU Post op vitals: stable Difficult airway: no Nausea controlled: yes Level of consciousness: awake Post anesthesia pain: adequate analgesia Airway patency: patent Respiratory status: room air and spontaneous ventilation Cardiovascular status: stable Hydration status: euvolemic Temperature: Normothermia Perioperative complications: NONE Vitals Value Taken Time BP 156/87 10/27/24 15:30 Resp 13 10/27/24 15:30 SpO2 96 % 10/27/24 15:30 Temp 36.6 ??C (97.9 ??F) 10/27/24 15:30 Pulse 62 10/27/24 15:30 * Anesthesia Preprocedure Evaluation - Sherita Moya MD - 10/27/2024 11:32 AM EDT Pre-Anesthesia Evaluation Note Patient Name: Ernst Pugh Sex: male Patient : 1975 Age: 49 y.o. Patient Date: October 27, 2024 Procedure(s): CYSTOSCOPY LEFT URETEROSCOPY LASER LITHOTRIPSY LEFT STENT PLACEMENT OR EXCHANGE Anesthesia Evaluation Previous anesthesia (heart cath only). No history of anesthetic complications: No family history of anesthesia complications: Airway Mallampati: II TM distance: >3 FB Neck ROM: full No increased risk of difficult airway Dental Dental exam findings: upper dentures and lower dentures Pulmonary (+) History of tobacco use (35.5 pack years): current Physical exam: Comments: decreased breath sounds (CTA) Cardiovascular (+)Exercise tolerance: Has been sedentary since NSTEMI Hypertension: well controlled Hyperlipidemia CAD/TN (VIC RCA 09/19/24): Coronary Stents Peripheral arterial disease (duplex 10/19/24 - LISBET 1-39%, LICA 40-59%): Carotid Disease Shortness of breath: GALLARDO Physical exam: Rhythm: regular Rate: normal (-) no angina Neuro/Psych (-) seizures, no cerebrovascular disease GI/Hepatic/Renal Comments: Ureteral mass Ventral hernia CT Abdomen 10/19/24 1. Severe left hydronephrosis with soft tissue/ masslike thickening of the proximal left ureter. Urothelial malignancy is a differential consideration and urology consultation is recommended. 2. Thinning of the left renal cortex suggests chronicity of the left urinary obstruction. (+)GERD/PUD: (-) no chronic kidney disease Endo/Other Comments: Raynaud's (+)Obese: Severe obesity (BMI 35-39.9) anticoagulation therapy (effient, ASA) (-) no recreational drug use TIP INSERTER Additional Pre-evaluation comments CBC/BMP 09/2024 - H/H 13.7/40.9, Cl 112 Echo 10/20/24 - * Left ventricular chamber dimension is normal. * Left ventricular function is normal with an estimated ejection fraction of 60-65%. * The left ventricular diastolic function is normal. * Right ventricular systolic function is normal. * Unable to estimate pulmonary arterial systolic pressure due to lack of tricuspid regurgitation jet. EKG 09/2024 (in media) - SR Opioids : Naive BMI 37.40 Anesthesia Plan ASA 4 Last solid intake: The patient has not eaten within the last 8 hours. Last clear liquid intake: The patient has not had clear liquids within the last 2 hours. Last tobacco use: The patient has not used tobacco today. Anesthesia Plan: general Induction: intravenous Monitors: STD Dr Kenny 10/24/24 - I had a discussion with him, his and Urology. Postponing the surgery until clearer path from urologic malignancy. ASA 4 for NSTEMI 1 month ago Ezequiel Fuentes APRN (secure chat) 10/23/24 - I spoke with Dr. Kenny. he said to hold the effient for 5days before the biopsy Reviewed case w/ Dr Heri frost to proceed at [facility] PONV Risk Score: 1. Score of 0-1 is Low Risk for PONV, antiemetic prophylaxis is not indicated but may still be given. Informed consent Anesthetic plan and risks discussed with: patient and family. Chart Reviewed and patient examined documented in this encounter Miscellaneous Notes * PAT Pre Evaluation for Anesthesia - Edelmira, Jhoana Gutierrez APRN - 10/25/2024 12:55 PM EDT Pre-Anesthesia Evaluation Note Patient Name: Ernst Pugh Sex: male Patient : 1975 Age: 49 y.o. Patient Date: October 25, 2024 Procedure(s): CYSTOSCOPY LEFT URETEROSCOPY LASER LITHOTRIPSY LEFT STENT PLACEMENT OR EXCHANGE Anesthesia Evaluation Previous anesthesia (heart cath only). No history of anesthetic complications: No family history of anesthesia complications: Airway TM distance: >3 FB Neck ROM: full No increased risk of difficult airway Dental Dental exam findings: upper dentures and lower dentures Pulmonary (+) History of tobacco use (35.5 pack years): current Physical exam: Comments: decreased breath sounds (CTA) Cardiovascular (+)Exercise tolerance: Has been sedentary since NSTEMI Hypertension: well controlled Hyperlipidemia CAD/TN (VIC RCA 09/19/24): Coronary Stents Peripheral arterial disease (duplex 10/19/24 - LISBET 1-39%, LICA 40-59%): Carotid Disease Shortness of breath: GALLARDO Physical exam: Rhythm: regular Rate: normal (-) no angina Neuro/Psych (-) seizures, no cerebrovascular disease GI/Hepatic/Renal Comments: Ureteral mass Ventral hernia CT Abdomen 10/19/24 1. Severe left hydronephrosis with soft tissue/ masslike thickening of the proximal left ureter. Urothelial malignancy is a differential consideration and urology consultation is recommended. 2. Thinning of the left renal cortex suggests chronicity of the left urinary obstruction. (+)GERD/PUD: (-) no chronic kidney disease Endo/Other Comments: Raynaud's (+)Obese: Severe obesity (BMI 35-39.9) anticoagulation therapy (effient, ASA) (-) no recreational drug use TIP INSERTER Additional Pre-evaluation comments CBC/BMP 09/2024 - H/H 13.7/40.9, Cl 112 Echo 10/20/24 - * Left ventricular chamber dimension is normal. * Left ventricular function is normal with an estimated ejection fraction of 60-65%. * The left ventricular diastolic function is normal. * Right ventricular systolic function is normal. * Unable to estimate pulmonary arterial systolic pressure due to lack of tricuspid regurgitation jet. EKG 09/2024 (in media) - SR Opioids : Naive BMI 37.40 Anesthesia Plan Anesthesia Plan: general Induction: intravenous Monitors: STD Dr Kenny 10/24/24 - I had a discussion with him, his and Urology. Postponing the surgery until clearer path from urologic malignancy. Ezequiel Fuentes APRN (secure chat) 10/23/24 - I spoke with Dr. Kenny. he said to hold the effient for 5days before the biopsy Reviewed case w/ Dr Liriano - wilneray to proceed at [facility] PONV Risk Score: 1. Score of 0-1 is Low Risk for PONV, antiemetic prophylaxis is not indicated but may still be given. Informed consent Anesthetic plan and risks discussed with: patient and family. Chart Reviewed and patient examined documented in this encounter Plan of Treatment Upcoming Encounters Date Type Department Care Team (Late st Contact Info) Description 12/21/2024 2:30 PM EDT Office Visit [facility] [address] [place] [address] Dorinda Rodriguez PA-C [address] [facility] [place] [address] 01/23/2025 9:00 AM EDT Office Visit [facility] Cardiac Surgeons [address] [place] [address] Logan Kenny MD [address] [place] [address] documented as of this encounter Procedures Procedure Name Priority Date/Time Associated Diagnosis Comments INTRAOP AIRWAY PLACEMENT Routine 10/27/2024 2:06 PM EDT documented in this encounter Results * INTRAOP AIRWAY PLACEMENT (10/27/2024 2:06 PM EDT) Narrative [facility] - 10/27/2024 2:06 PM EDT Phuong Clark CRNA 10/27/2024 2:07 PM Intraop Airway Placement: Date/Time: 10/27/2024 2:06 PM Induction type: IV Mask size: Standard adult Pre-Oxygenation: BMI guided pre-O2 Mask ventilation: Not attempted Airway type: LMA Device size: 5 Secured by: Tape Placement verified: End tidal CO2 and Symmetric chest wall motion Condition: Atraumatic and Unchanged Insertion attempts: 1 Title: SOLAR MAINTENANCE TECHNICIAN us Sherita Moya MD OR ANESTHESIA Final R esult [facility] [address] [place] [address] documented in this encounter Visit Diagnoses Not on filedocumented in this encounter Administered Medications Inactive Administered Medications - up to 1 most recent administrations Medication Order MAR Action Action Date Dose Rate Site ceFAZolin (ANCEF) IVPB 2 g 2 g, Intravenous, FORESTRY CONSULTANT TO O.R., 1 dose, On Wed10/27/24 at 1145, Administer over 30 Minutes, redose 1g q 4h IV intraop, Reason for Therapy: Surgical Prophylaxis Given 10/27/2024 1:44 PM EDT 2 g dexAMETHasone (DECADRON) injection Intravenous, PRN (Anesthesia), Starting on Wed10/27/24 at 1418, Until Wed10/27/24 at 1439, Anesthesia Intra-op Given 10/27/2024 2:18 PM EDT 4 mg fentaNYL (SUBLIMAZE) injection Intravenous, PRN (Anesthesia), Starting on Wed10/27/24 at 1348, Until Wed10/27/24 at 1439, Anesthesia Intra-op Given 10/27/2024 2:16 PM EDT 25 mcg lactated ringers infusion Intravenous, at 50 mL/hr, PREPROCEDURE CONTINUOUS, Starting on Wed10/27/24 at 1133, Until Wed10/27/24 at 202, To be given in SDS/Pre-op Holding Area, Pre-op (Holding/SDS Meds) IV Restarted 10/27/2024 1:44 PM EDT lidocaine 1% 10 mg/mL (1 %) injection Intravenous, PRN (Anesthesia), Starting on Wed10/27/24 at 1348, Until Wed10/27/24 at 1439, Anesthesia Intra-op Given 10/27/2024 1:48 PM EDT 50 mg ondansetron (ZOFRAN) injection Intravenous, PRN (Anesthesia), Starting on Wed10/27/24 at 1415, Until Wed10/27/24 at 1439, Anesthesia Intra-op Given 10/27/2024 2:15 PM EDT 4 mg propofoL (DIPRIVAN) injection Intravenous, PRN (Anesthesia), Starting on Wed10/27/24 at 1348, Until Wed10/27/24 at 1439, Anesthesia Intra-op Given 10/27/2024 1:48 PM EDT 200 mg documented in this encounter Care Teams Baccarat Manager Relationship Specialty Start Date End Date Reyna Perez APRN [address] [facility] [address] [place] [address] PCP - General Nurse Practitioner 10/27/24 documented as of this encounter
--- OUTSIDE RECORDS SUMMARY | 2024-11-07 03:27 | XMS_ITS | Encounter Summary ---
Author [place] [address] Care Team Providers Care Artist Manager Name Role Phone Reyna Perez DEMETRIUS Primary Care Provider [phone] Reason for Visit * Reason Comments Shortness of Breath SOB for a few hours now, heart sx needed and kidney sx needed. No MARKETING PROGRAMS SPECIALIST meds, pt is not in distress at triage, O2 is 100% RA. A&Ox4. with pt Encounter Details Date Type Department Care Team (Late st Contact Info) Description 11/07/2024 3:27 AM EDT - 11/07/2024 7:08 AM EDT Emergency [facility] Emergency [place] [facility] [place] [address] Mona Ndiaye MD [facility] EMERGENCY DEPT [address] [place] [address] Dyspnea, unspecified type (Primary Dx) [...] 3:23 AM EDT Tommy Lugo RN * Cloud Suicide Severity Rating Scale (Q shift for [...] Follow-up with your primary care doctor and manager talent acquisition. documented in this encounter Medications at Time [...] 30 Capsule 12/08/2024 11:27 AM EDT 12/09/2024 traMADoL (ULTRAM) 50 mg Oral Tablet Take 1 Tablet by mouth every 6 hours as needed for Pain for up to 10 days. 20 Tablet 12/08/2024 11:27 AM EDT 12/08/2024 vancomycin (VANCOCIN) 125 mg Oral Capsule Take 1 Capsule by mouth 4 times daily for 34 doses. 34 Capsule 12/08/2024 11:27 AM EDT 12/08/2024 5 cefUROXime (CEFTIN) 500 mg Oral Tablet Take 1 Tablet by mouth every 12 hours for 5 doses. 5 Tablet 12/08/2024 11:27 AM EDT 12/08/2024 5 documented as of this encounter Discharge Disposition Disposition Code Departure Means Destination Comment s Home or Self Usp documented in this encounter ED Notes * [...] sx needed and kidney sx needed. No MARKETING PROGRAMS SPECIALIST meds, pt is not in distress at [...] disease) Heartburn Hyperlipidemia Hypertension Kidney mass left DE (myocardial infarction) (HCC) 09/17/2024 Motion sickness Social [...] CYSTOSCOPY 10/27/2024 Surgeon: Patricia Ellison MD; Location: [facility] MAIN OR; Service: Urology Review [...] 72.7 Imm Gran% 0.7 Lymph Percent 16.9 [place] Percent 7.8 Eos Percent 1.4 Baso Percent 0.5 Neut # 9.5 (*) IMMGRAN# 0.1 Lymph # 2.2 [place] # 1.0 (*) Eos# 0.2 Baso # 0.1 COMPREHENSIVE METABOLIC PANEL - Abnormal Sodium 136 Potassium 4.5 Chloride 104 Total CO2 21 (*) Anion Gap 11 Calcium 9.5 Glucose Lvl 104 (*) BUN 18 Creatinine 1.24 Albumin 4.4 Total Protein 7.1 Bili Total 0.3 ALT 20 AST 20 Alk Phos 127 eGFR (CKD-EPIcr 2020) 71 TROPONIN-T HIGH SENSITIVITY BASELINE W/ REFLEX - Normal np-qDajycabg-L 6 Narrative: Ingestion of josé miguel doses [...] 10). CARLOS ENRIQUE Barger, et al. Ashley Sales Producer Med. 2017;166(5):361-363 ANAID Contreras, et al. Ashley Sales Producer Med. 2015;(163):701-711. Matt Johnson, et al. BERTIN. 2014;(11):1445-5115. TROPONIN-T HIGH SENSITIVITY 2HR XR CHEST PA AND LATERAL Final Result No acute finding. - Note: Radiology results need to be interpreted within a comprehensive clinical context. If you have questions about the radiology report, please contact the office of the ordering clinician. EK EKG 12 LEAD ED Interpretation Twelve-lead EKG interpreted by me: Sinus rhythm rate 69, NJ 151, QRS 94, QTc 408. No acute [...] EDT Office Visit [facility] U[facility] NPTFTT [address] [facility] [place] [address] Dorinda Rodriguez, PA-C [address] [place] [address] 01/23/2025 9:00 AM EDT Office Visit [facility] Cardiac Surgeons [address] [place] [address] Logan Kenny MD [address] [place] [address] documented as of this encounter Procedures [...] Laterality Modality Chest Radiographic Lorna ging 11/07/2024 4:0 2 AM EDT Impressions 11/07/2024 4:51 AM EDT [...] the ordering clinician. us Mona Ndiaye MD [facility] ORDERAB LES Final Result * D-DIMER (11/07/2024 3:52 AM EDT) D-Dimer 419 <=500 ng/mL FEU 11/07/2024 4:26 AM EDT [facility] Comment:This is an automated latex enhanced [...] AM EDT 11/07/2024 3:54 AM EDT Narrative [facility] - 11/07/2024 4:26 AM EDT For patients between the ages of 50 - 75, an age-adjusted D-Dimer cut-off in combination with non-high clinical probability may be considered for the exclusion of venous thromboembolism (calculation = age x 10). CARLOS ENRIQUE Barger, et al. Ashley Sales Producer Med. 2017;166(5):361-363 Diane , et al. Ashley Sales Producer Med. 2015;(163):701-711. Matt Johnson, et al. BERTIN. 2014;(11):0526-3944. Mona Ndiaye MD HEMATOLOGY ORDERABLES Final Re sult [facility] [address] [place] [address] * NT PROBNP (11/07/2024 3:52 AM EDT) NT Pro-BNP 53 <=138 pg/mL 11/07/2024 4:13 AM EDT [facility] Blood VENOUS BLOOD / Unknown Venipuncture / Unknown 11/07/2024 3:52 AM EDT 11/07/2024 3:55 AM EDT Meghan [facility] - 11/07/2024 4:13 AM EDT An NT pro-BNP level less than 300 pg/mL in any patient, regardless of age, effectively rules out acute CHF with a 99% negative predictive value. Ingestion of josé miguel doses of biotin (>5 mg/day) taken within 8 hours of drawing blood sample can interfere with this immunoassay test. Mona Ndiaye MD CHEMISTRY ORDERABLES Final Res ult Performing Organization Address [facility] de Phone Number [facility] [address] [place] [address] * TROPONIN-T HIGH SENSITIVITY BASELINE W/ REFLEX (11/07/2024 3:52 AM EDT) Pathologist [facility] pa-wYkkzvfyd-H 6 <22 ng/L 11/07/2024 4:13 AM EDT [facility] Blood VENOUS BLOOD / Unknown Venipuncture / Unknown 11/07/2024 3:52 AM EDT 11/07/2024 3:55 AM EDT Narrative [facility] - 11/07/2024 4:13 AM EDT Ingestion of josé miguel doses of biotin (>5 mg/day) taken within 8 hours of drawing blood sample can interfere with this immunoassay test. Mona Ndiaye MD CHEMISTRY ORDERABLES Final Res ult Performing Organization Address [facility] de Phone Number [facility] [address] [place] [address] * (ABNORMAL) COMPREHENSIVE METABOLIC PANEL (11/07/2024 3:52 AM EDT) [facility] Sodium 136 136 - 145 mmol/L 11/07/2024 4:13 AM EDT [facility] Potassium 4.5 3.5 - 5.0 mmol/L 11/07/2024 4:13 AM EDT [facility] Chloride 104 98 - 107 mmol/L 11/07/2024 4:13 AM EDT [facility] Total CO2 21(L) 22 - 29 mmol/L 11/07/2024 4:13 AM EDT [facility] Anion Gap 11 7 - 16 mmol/L 11/07/2024 4:13 AM EDT [facility] Calcium 9.5 8.6 - 10.4 mg/dL 11/07/2024 4:13 AM EDT [facility] Glucose Lvl 104(H) 70 - 99 mg/dL 11/07/2024 4:13 AM EDT [facility] BUN 18 6 - 20 mg/dL 11/07/2024 4:13 AM EDT [facility] Creatinine 1.24 0.67 - 1.30 mg/dL 11/07/2024 4:13 AM EDT [facility] Albumin 4.4 3.5 - 5.2 gm/dL 11/07/2024 4:13 AM EDT [facility] Total Protein 7.1 6.4 - 8.3 gm/dL 11/07/2024 4:13 AM EDT [facility] Bili Total 0.3 0.2 - 1.4 mg/dL 11/07/2024 4:13 AM EDT [facility] ALT 20 <=41 U/L 11/07/2024 4:13 AM EDT [facility] AST 20 <=40 U/L 11/07/2024 4:13 AM EDT [facility] Alk Phos 127 40 - 129 U/L 11/07/2024 4:13 AM EDT [facility] eGFR (CKD-EPIcr 2020) 71 >=60 mL/min/1.7 3 m2 11/07/2024 4:13 AM EDT [facility] Comment:Estimated GFR was ca lculated using the CKD-EPIcr (2020) equation refit without race. The equation is recommended by the National Kidney Foundation - [place] Society of Nephrology Task Force. Blood VENOUS BLOOD / Unknown Venipuncture / Unknown 11/07/2024 3:52 AM EDT 11/07/2024 3:55 AM EDT us Mona Ndiaye MD CHEMISTRY ORDERABLES Final Res ult [facility] [address] [facility] [place] [address] * (ABNORMAL) CBC WITH DIFF (11/07/2024 3:52 AM EDT) WBC 13.1(H) 3.7 - 10.3 x10(3)/mcL 11/07/2024 3:57 AM EDT [facility] RBC 4.70 4.60 - 6.10 x10(6)/mcL 11/07/2024 3:57 AM EDT [facility] Hgb 14.2 13.7 - 17.5 g/dL 11/07/2024 3:57 AM EDT [facility] Hct 41.9 40.0 - 51.0 % 11/07/2024 3:57 AM EDT [facility] MCV 89.1 80.0 - 100.0 fL 11/07/2024 3:57 AM EDT [facility] MCH 30.2 26.0 - 34.0 pg 11/07/2024 3:57 AM EDT [facility] MCHC 33.9 30.7 - 35.5 g/dL 11/07/2024 3:57 AM EDT [facility] RDW 13.3 <=14.9 % 11/07/2024 3:57 AM EDT [facility] Platelet 281 155 - 369 x10(3)/mcL 11/07/2024 3:57 AM EDT [facility] MPV 9.1 8.8 - 12.5 fL 11/07/2024 3:57 AM EDT [facility] Neut Percent 72.7 % 11/07/2024 3:57 AM EDT [facility] Comment:Neutrophils equals s egs plus bands Imm Gran% 0.7 % 11/07/2024 3:57 AM EDT [facility] Comment:Automated count of m etamyelocytes, myelocytes and promyelocytes. Lymph Percent 16.9 % 11/07/2024 3:57 AM EDT [facility] [place] Percent 7.8 % 11/07/2024 3:57 AM EDT [facility] Eos Percent 1.4 % 11/07/2024 3:57 AM EDT [facility] Baso Percent 0.5 % 11/07/2024 3:57 AM EDT [facility] Neut # 9.5(H) 1.6 - 6.1 x10(3)/mcL 11/07/2024 3:57 AM EDT [facility] Comment:Neutrophils equals s egs plus bands IMMGRAN# 0.1 0.0 - 0.1 x10(3)/[facility] 11/07/2024 3:57 AM EDT [facility] Comment:Automated count of m etamyelocytes, myelocytes and promyelocytes. An absolute IG <0.1 is reported as 0.0. Lymph # 2.2 1.2 - 3.9 x10(3)/[facility] 11/07/2024 3:57 AM EDT [facility] [place] # 1.0(H) 0.3 - 0.9 x10(3)/[facility] 11/07/2024 3:57 AM EDT [facility] Eos# 0.2 0.0 - 0.5 x10(3)/[facility] 11/07/2024 3:57 AM EDT [facility] Baso # 0.1 0.0 - 0.1 x10(3)/[facility] 11/07/2024 3:57 AM EDT [facility] Blood VENOUS BLOOD / Unknown Venipuncture / Unknown 11/07/2024 3:52 AM EDT 11/07/2024 3:55 AM EDT us Mona Ndiaye MD HEMATOLOGY ORDERABLES Final Re sult [facility] [address] [place] [address] * EK EKG 12 LEAD (11/07/2024 3:33 AM EDT) Anatomical Region Laterality Modality Electrocardiogra phy 11/07/2024 3:37 AM EDT Impressions 11/07/2024 7:56 AM EDT [facility] Test Date: 2024-11-07 Pat Name: ALEX HOFFMAN Department: DEPID Room: [facility] Gender: Male Marine Design 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 : 1975 Requested By: MONA Chavez Order Number: [id number] Britt MD: Gala Flaquito, DO Measurements Intervals [place] Rate: 69 P: 13 NJ: 151 QRS: 33 QRSD: 94 T: 54 QT: 388 QTc: 418 Interpretive Statements SINUS RHYTHM Electronically Signed On 11-07-2024 07:56:36 EDT by Gala Huddleston DO Narrative Procedure Note Gala Huddleston DO - 11/07/2024 IMPRESSION [facility] Test Date: 2024-11-07 Pat Name: ALEX HOFFMAN Department: DEPID Room: [facility] Gender: Male Marine Design 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 : 1975 Requested By: MONA Chavez Order Number: [id number] Reading MD: Gala Huddleston DO Measurements Intervals [place] Rate: 69 P: 13 NJ: 151 QRS: 33 QRSD: 94 T: 54 [...] PRN, Starting on Wed11/07/24 at 0343, Until 11/07/24 at 1108, Line Care, Flush with 50 [...] Tu11/07/24 at 1108, Line Care, Flush with 5 [...] 11/07/2024 documented in this encounter Care Teams Artist Manager Relationship Specialty Start Date End Date Reyna Perez APRN [facility] [address] [facility] [place] [id number] PCP - General Nurse Practitioner 10/27/24 documented as of this encounter
--- OUTSIDE RECORDS SUMMARY | 2024-11-23 12:38 | XMS_ITS | Encounter Summary ---
Author Organization [place] [place] [address] Care Team Providers Care Labor Law Professor Name Role Phone Reyna Perez DEMETRIUS Primary Care Provider [phone] Encounter Details Date Type Department Care Team (Latest Contact Info) Description 11/23/2024 12:38 PM EDT - 11/23/2024 11:59 PM EDT Hospital Encounter EDG PRE-ADMIT TESTING [facility] [place] [address] Pre-op testing (Primary Dx); Ureteral mass [...] Time out 1148 Incision 1217 Quick Note [place] not level during repositioning. Re leved after [...] acknowledgement of understanding from the receiving PACU/ICU maintenance team leader 1648 An Stop Meds * Agents No agents on file. * Blood No blood administrations on file. Lines, Drains, and Airways Type Details Placement Removal Peripheral IV 12/01/24; 0715; 18; 1.16; Posterior, Right; Hand; konrad maldonado rn; 1; None; 12/04/24; 1144 12/01/24 0715 by Konrad aMldonado RN 12/04/24 1144 by Amanda Williamson RN [...] 12/01/24; 1552; 1; Midline, Inferior; Abdomen; 10 Japanese 12/01/24 1552 by Sonja Solis RN 12/08/24 [...] Ifnot received, call your surgeon's office. Location: [facility] Medications on the Day of Surgery Take [...] No alcohol 24 hours prior to surgery. Regulatory Submissions Associate It is important to have a Regulatory Submissions Associate, someone who is 18 years or older, [...] concern, please reach out to our department [phone]. Hygiene [place] your teeth and gargle the morning of surgery. Shower the morning of surgery or the night before. Do not wear makeup (including eye makeup) lotion, powder, deodorant, perfume, or cologne. Do not shave the operative extremity or near the operative area. Remove nail italian prior to surgery. This includes artificial nails and gel nail italian. Personal Items Wear clean, simple, loose-fitting clothing (no jeans) and sturdy shoes (no flip flops, slides or crocs) to the hospital. Do not bring unnecessary valuables with you. It is policy that [facility] does not assume responsibility for lost, stolen [...] your Living Will and/or Durable Power of [facility] for Healthcare. Bring Incentive spirometer on the day of surgery. Notify the Surgeon Notify your surgeon if you develop any illness (fever, cold, cough, sore throat, nausea, vomiting, skin rashes etc.) between now and surgery time Notify your surgeon and Pre-admission testing ([phone]) if you have any changes in your healthconditions or if any new medications are ordered between now and surgery.. Questions or Concerns? If you have any questions or concerns, feel free to call the Pre-Admission testing department at [phone]. We want to make sure you feel safe and have an excellent experience while you are here. Do not reply to this message through Paperlit as it may not be answered promptly. Same Day Surgery Unit - [place] at [phone]; [place]: Park at Entrance 1A Main Entrance, NOT Outpatient Parking. Walk in atrium and go to front end specialist. Look for sign at information desk that states Surgery Check In . [address] [facility], [place] [address]. DOORS OPEN AT 5: 30 AM WED-WED AND 6:00 AM ON WEDNESDAY AND 8:00 AM ON WEDNESDAY * Attachments The following attachments cannot be sent through Care Everywhere. * How to use an incentive spirometer (Turkish) documented in this encounter Medications at Time [...] for 10 days. 20 Tablet 11/21/2024 5 documented as of this encounter Discharge Disposition Disposition Code Departure Means Destination Home or Self Care documented in this encounter Plan of Treatment Upcoming Encounters Date Type Department Care Team (Late st Contact Info) Description 12/21/2024 2:30 PM EDT Office Visit [facility] [address] [place] [address] Dorinda Rodriguez, PA-C [address] [place] [address] 01/23/2025 9:00 AM EDT Office Visit [facility] Cardiac Surgeons [place] [address] [facility] [address] [place] [address] Logan Kenny MD [address] [facility] [place] [address] documented as of this encounter [...] No Previous History 11/23/2024 2:31 PM EDT [facility] Blood VENOUS BLOOD / Unknown Venipuncture / Unknown 11/23/2024 2:10 PM EDT 11/23/2024 2:17 PM EDT us Susan Grossman APRN BLOOD BANK ORDERABLES Fi nal Result [facility] [address] [facility] [place] [address] * SURGERY DATE (11/23/2024 2:10 PM EDT) Pathologist [facility] Surgery Date (1) Complete 11/23/2024 2:31 PM EDT [facility] Blood VENOUS BLOOD / Unknown Venipuncture / Unknown 11/23/2024 2:10 PM EDT 11/23/2024 2:17 PM EDT Susan Grossman TIP OUT WORKER BLOOD BANK ORDERABLES Fi nal Result [facility] [address] [place] [id number] * ANTIBODY SCREEN IGG (11/23/2024 2:10 PM EDT) [facility] ABSC IgG Int Negative 11/23/2024 3:13 PM EDT [facility] Blood VENOUS BLOOD / Unknown Venipuncture / Unknown 11/23/2024 2:10 PM EDT 11/23/2024 2:17 PM EDT Susan Grossman TIP OUT WORKER BLOOD BANK ORDERABLES Fi nal Result Performing Organization Address City/[facility]/ZIP Co de Phone Number [facility] [address] [place] [phone] * ABORH (11/23/2024 2:10 PM EDT) [facility] ABORH Int B POS 11/23/2024 3:1 3 PM EDT [facility] Blood VENOUS BLOOD / Unknown Venipuncture / Unknown 11/23/2024 2:10 PM EDT 11/23/2024 2:17 PM EDT us Susan Grossman TIP OUT WORKER BLOOD BANK ORDERABLES Fi nal Result [facility] 1 [place] [address] * (ABNORMAL) BASIC METABOLIC PANEL (11/23/2024 2:10 PM EDT) Sodium 137 136 - 145 mmol/L 11/23/2024 3:02 PM EDT [facility] Potassium 3.7 3.5 - 5.0 mmol/L 11/23/2024 3:02 PM EDT [facility] Chloride 103 98 - 107 mmol/L 11/23/2024 3:02 PM EDT [facility] Total CO2 21(L) 22 - 29 mmol/L 11/23/2024 3:02 PM EDT [facility] Anion Gap 13 7 - 16 mmol/L 11/23/2024 3:02 PM EDT [facility] Calcium 9.4 8.6 - 10.4 mg/dL 11/23/2024 3:02 PM EDT [facility] Glucose Lvl 88 70 - 99 mg/dL 11/23/2024 3:02 PM EDT [facility] BUN 13 6 - 20 mg/dL 11/23/2024 3:02 PM EDT [facility] Creatinine 1.01 0.67 - 1.30 mg/dL 11/23/2024 3:02 PM EDT [facility] eGFR (CKD-EPIcr 2020) 91 >=60 mL/min/1.7 3 m2 11/23/2024 3:02 PM EDT [facility] Comment:Estimated GFR was ca lculated using the CKD-EPIcr (2020) equation refit without race. The equation is recommended by the National Kidney Foundation - [place] Society of Nephrology Task Force. Blood VENOUS BLOOD / Unknown Venipuncture / Unknown 11/23/2024 2:10 PM EDT 11/23/2024 2:20 PM EDT us Susan Grossman TIP OUT WORKER CHEMISTRY ORDERABLES Fin al Result [facility] [address] [facility] , [place] [address] * CBC WITH DIFF (11/23/2024 2:10 PM EDT) WBC 8.2 3.7 - 10.3 x10(3)/mcL 11/23/2024 2:35 PM EDT [facility] RBC 4.87 4.60 - 6.10 x10(6)/mcL 11/23/2024 2:35 PM EDT [facility] Hgb 14.5 13.7 - 17.5 g/dL 11/23/2024 2:35 PM EDT [facility] Hct 42.0 40.0 - 51.0 % 11/23/2024 2:35 PM EDT [facility] MCV 86.2 80.0 - 100.0 fL 11/23/2024 2:35 PM EDT [facility] MCH 29.8 26.0 - 34.0 pg 11/23/2024 2:35 PM EDT [facility] MCHC 34.5 30.7 - 35.5 g/dL 11/23/2024 2:35 PM EDT [facility] RDW 13.5 <=14.9 % 11/23/2024 2:35 PM EDT [facility] Platelet 278 155 - 369 x10(3)/mcL 11/23/2024 2:35 PM EDT [facility] MPV 9.1 8.8 - 12.5 fL 11/23/2024 2:35 PM EDT [facility] Neut Percent 59.7 % 11/23/2024 2:35 PM EDT [facility] Comment:Neutrophils equals s egs plus bands Imm Gran% 0.5 % 11/23/2024 2:35 PM EDT [facility] Comment:Automated count of m etamyelocytes, myelocytes and promyelocytes. Lymph Percent 28.0 % 11/23/2024 2:35 PM EDT [facility] [place] Percent 9.1 % 11/23/2024 2:35 PM EDT [facility] Eos Percent 2.1 % 11/23/2024 2:35 PM EDT [facility] Baso Percent 0.6 % 11/23/2024 2:35 PM EDT [facility] Neut # 4.9 1.6 - 6.1 x10(3)/mcL 11/23/2024 2:35 PM EDT [facility] Comment:Neutrophils equals s egs plus bands IMMGRAN# 0.0 0.0 - 0.1 x10(3)/[facility] 11/23/2024 2:35 PM EDT [facility] Comment:Automated count of m etamyelocytes, myelocytes and promyelocytes. An absolute IG <0.1 is reported as 0.0. Lymph # 2.3 1.2 - 3.9 x10(3)/[facility] 11/23/2024 2:35 PM EDT [facility] [place] # 0.8 0.3 - 0.9 x10(3)/[facility] 11/23/2024 2:35 PM EDT [facility] Eos# 0.2 0.0 - 0.5 x10(3)/[facility] 11/23/2024 2:35 PM EDT [facility] Baso # 0.1 0.0 - 0.1 x10(3)/[facility] 11/23/2024 2:35 PM EDT [facility] Blood VENOUS BLOOD / Unknown Venipuncture / Unknown 11/23/2024 2:10 PM EDT 11/23/2024 2:20 PM EDT Susan Grossman APRN HEMATOLOGY ORDERABLES Fi nal Result [facility] [address] , [place] [address] documented in this encounter Visit Diagnoses Diagnosis Pre-op testing- Primary Preoperative examination, unspecified Ureteral mass Unspecified disorder of kidney and ureter documented in this encounter Care Teams Labor Law Professor Relationship Specialty Start Date End Date Reyna Perez APRN [address] [facility] [address] [place] [address] PCP - General Nurse Practitioner 10/27/24 documented as of this encounter
--- OUTSIDE RECORDS SUMMARY | 2024-12-01 08:38 | XMS_ITS | Encounter Summary ---
Author [place] [address] Care Team Providers Care Sexual Health Physician Name Role Phone Reyna Perez DEMETRIUS Primary Care Provider [phone] Reason for Visit * Auth/Cert/Inpt Specialty Diagnoses / Procedures Referred By Juan R acosta Referred To Contact Diagnoses Ureteral mass Ureteral mass [N28.89] Procedures AK LAPAROSCOPY RADICAL NEPHRECTOMY AK CYSTOURETHROSCOPY W/DEST &/RMVL MED BLADDER EMERY AK LAPAROSCOPY NEPHRECTOMY W/TOTAL URETERECTOMY LEFT DAVINCI ROBOTIC NEPHROURETERECTOMY, CYSTOSCOPY, TRANSURETHRAL RESECTION OF THE BLADDER TUMOR Referral ID Status Reason Start Date Expiration Date Visits Re quested Visits Authorized [id number] 1 1 Encounter Details Date Type Department Care Team (Latest Contact Info) Description 12/01/2024 8:38 AM EDT - 12/08/2024 11:29 AM EDT Hospital Encounter EDG 7C UROLOGY [place] [id number] Sadi Haney MD [address] [facility] [address] [place] [address] Preop testing (Primary Dx); Ureteral mass Discharge Disposition: Discharge/Readmit Social History Tobacco Use Types Packs/Day Years Used Date Smoking Tobacco: Every Day Cigarettes 1 37.1 Started: 05/10/1989 Smokeless Tobacco: Never Alcohol Use Standard Drinks/Week Comments Not Currently 0 (1 standard drink = 0.6 oz pur e alcohol) [facility] Utilities Answer Date Recorded In the past 12 months has [employer] electric, gas, oil, or water company threatened to shut off services in your home? No 12/04/2024 Overall Financial Resource Strain (CARDIA) Answe r Date Recorded How hard is it for you to pa y for the very basics like food, housing, medical care, and heating? Somewhat hard 12/04/2024 PHQ-2 Answer Date Recorded PHQ-2 Total Score 0 12/04/2024 [facility] - Occupational Stress Questionnaire Answer Date Recorded Do you feel stress - tense, restless, nervous, or anxious, or unable to sleep at night because your mind is troubled all the time - these days? To some extent 12/04/2024 Exercise Vital Sign Answer Date Recorde d On average, how many days pe r week do you engage in moderate to strenuous exercise (like a brisk walk)? 0 days 12/04/2024 On average, how many minutes do you engage in exercise at this level? 0 min 12/04/2024 Hunger Vital Sign Answer Date Recorded Within the past 12 months, y ou worried that your food would run out before you got the money to buy more. Sometimes true Within the past 12 months, t he food you bought just didn't last and you didn't have money to get more. Never true [facility] IP Transportation Answer D ate Recorded In the past 12 months, has l ack of reliable transportation kept you from medical appointments, meetings, work or from getting things needed for daily living? No 12/04/2024 Sexually Active Control Partners Comments Yes Female Sex and Gender Information Value Date Recorded Sex Assigned at Not on file Legal Sex Male 8:24 PM EDT Gender Identity Not on file Sexual Orientation Not on file documented as of this encounter Last Filed Vital Signs Vital Sign Reading Time Taken Comments Blood Pressure 127/72 12/08/2024 7:19 AM EDT Pulse 82 12/08/2024 7:19 AM EDT Temperature 36.6 C (97.8 F) 12/08/2024 7:19 AM EDT Respiratory Rate 18 12/08/2024 7:19 AM EDT Oxygen Saturation 98% 12/08/2024 7:19 AM EDT Inhaled Oxygen Concentration - - Weight 110.2 kg (243 lb) 12/01/2024 8:06 PM EDT Height 172.7 cm (5' 8 ) 12/01/2024 8:06 PM EDT Body Mass Index 36.95 12/01/2024 8:06 PM EDT documented in this encounter Functional Status * Alcohol Screening Score Answer Date of Assessment Author 0 12/01/2024 8:00 PM EDT Viri Segura RN * Drug Screening Score Answer Date of Assessment Author 0 12/01/2024 8:00 PM EDT Viri Segura RN * Question Answer Date of Assessment Author How often do you have a drin k containing alcohol? 0 12/01/2024 8:00 PM EDT Viri Segura RN How many drinks containing a lcohol do you have on a typical day when you are drinking? 0 12/01/2024 8:00 PM EDT Viri Segura RN How often do you have six or more drinks on one occasion? 0 12/01/2024 8:00 PM EDT Viri Segura RN AUDIT-C to Determine Rows 4-10 0 12/01/2024 8:00 PM EDT Viri Segura RN * Question Answer Date of Assessment Author Little interest or pleasure in doing things 0 12/04/2024 12:32 PM EDT Cailin Roberto RN Feeling down, depressed, or hopeless 0 12/04/2024 12:32 PM EDT Cailin Roberto RN PHQ-2 Total Score 0 12/04/2024 12:32 PM EDT Cailin Roberto RN * PHQ-9 Total Score Answer Date of Assessment Author 0 12/04/2024 12:[address] lorelei Roberto RN * PHQ-2 Total Score Answer Date of Assessment Author 0 12/04/2024 12:[address] lorelei Roberto RN * Suicide Severity Rating Answer Date of Assessment Author No Risk 12/01/2024 8:11 PM EDT Viri Segura RN * [place] Suicide Severity Rating Scale (Q shift for moderate and high) Question Answer Date of Assessment Author 1. In the past month, have y ou wished you were or wished you could go to sleep and not wake up? 0 12/01/2024 8:11 PM EDT Viri Segura RN 2. In the past month, have y ou actually had any thoughts of killing yourself? (If no, skip to question 6) 0 12/01/2024 8:11 PM EDT Viri Segura RN 6. Have you ever done anythi ng, started to do anything, or prepared to do anything to end your life? 0 12/01/2024 8:11 PM EDT Viri Segura RN documented as of this encounter Discharge Summaries * Peace Rea APRN - 12/08/2024 8:03 AM EDT Physician Discharge Summary Patient ID: Alex Hoffman [id number] y.o. 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 Post operative course was routine. Physical exam at the time of discharge was unremarkable, no post operative complications noted. Instructions for post op care and follow up were reviewed. Discharge Exam: Physical exam at the time of discharge was unremarkable, no post operative complications noted. Disposition: home Patient Instructions: Medication List PAUSE taking these medications prasugreL HCl 10 mg Tab Wait to take this until: December 16, 2024 Commonly known as: EFFIENT START taking these medications acetaminophen 325 mg Tab Commonly known as: TYLENOL Take 2 Tablets by mouth every 4 hours as needed for Fever. traMADoL 50 mg Tab Commonly known as: ULTRAM Take 1 Tablet by mouth every 6 hours as needed for Pain for up to 10 days. CONTINUE taking these medications aspirin 81 mg Tbec atorvastatin 80 mg Tab Commonly known as: LIPITOR Bacillus coagulans-inulin 1 billion-250 cell-mg Cap cholecalciferol (vitamin D3) 25 mcg (1,000 unit) Tab Coenzyme Q10 100 mg Cap fUROsemide 40 mg Tab Commonly known as: LASix lansoprazole 30 mg Cpdr Commonly known as: PREVACID losartan 50 mg Tab Commonly known as: COZAAR metoprolol succinate 25 mg Tb24 Commonly known as: TOPROL-XL ASK your doctor about these medications famotidine 40 mg Tab Commonly known as: PEPCID HYDROcodone-acetaminophen 5-325 mg Tab Commonly known as: NORCO Take 1 Tablet by mouth every 6 hours as needed for Acute Pain > 3 Days Medically Necessary (R52)or Acute Pain (R52). nicotine 21 mg/24 hr Pt24 Commonly known as: NICODERM CQ prochlorperazine 10 mg Tab Commonly known as: COMPAZINE sulfamethoxazole-trimethoprim 800-160 mg Tab Commonly known as: BACTRIM DS Take 1 Tablet by mouth every 12 hours for 10 days. Where to Get Your Medications These medications were sent to [facility] [address] [facility] [place] [address] Hours: Wednesday-Wednesday 8:00am - 6:30pm traMADoL 50 mg Tab You can get these medications from any pharmacy You don't need a prescription for these medications acetaminophen 325 mg Tab Sadi Haney MD [address] [facility] [address] [facility] [address] Follow up in 2 week(s) follow up with Logan Montana MD [address] [facility] [place] [address] Follow up in 2 week(s) To discuss re-intation of antiplatelet therapy and further CTS w/u Reyna Perez APRN [address] [facility] [address] [facility] [address] Follow up in 1 week(s) Hospital follow up, recheck CBC next week with PCP prior to restarting blood thinner Signed: Peace Rea APRN 12/08/2024 8:06 AM documented in this encounter Discharge Instructions * Discharge Instructions* Peace Rea APRN - 12/01/2024 9:20 PM EDT Images from the original note were not included. The healing process takes time and we would like for you to observe the following instructions during your initial recovery at home. Activity Restrictions - Do not lift anything heavier than 10 lbs for 3-4 weeks. - Do not perform any strenuous activity such as snow shoveling, lawn mowing etc for 4 weeks - Use caution when going up and down stairs. It is best to climb one step at a time - No contact activity or sports for 4 weeks. - Do plenty of walking on flat surfaces. - Move your feet up and down frequently when you are at rest. This will help avoid forming blood clots in the legs -Do not drive any motorized vehicle until you are off narcotic pain medication. If traveling by car, be sure to stop every 1 to 2 hours. Get out of the car and walk around. Do not sign legal documents while taking narcotic pain medication. The narcotic medication may cause alteration in visual perception and impair judgment. Showering/Bathing You may begin showering after surgery. You may not take a bath until your incisions are completely healed. This usually takes 3-4 weeks. If you have surgical jeanne, they will be removed at your first post operative visit. There may be white tape strips called Steri-strips on the incision that will fall off during a shower. Do not pull off. Diet Return to normal eating habits over 1 to 2 days after surgery. For the first 2 days, it would be best to stay on liquids (juice, Jell-O, broth, soup, water, Gatorade/Powerade). Small meals are bettertolerated at first. Allow your appetite to determine how much you eat; do not force food if you feel full or if your stomach is unsettled. In the first week after surgery, it may be best to avoid spicy or fatty foods. Walking Walking soon after surgery encourages early return of bowel function, promotes effective breathing,mobilizes secretions from the lungs, improves circulation, prevents stiff joints and relieves pressure. The morning after surgery, you will be instructed to be out of bed at least 6 times a day. Thiscan be thought of as twice after breakfast, twice after lunch, and twice after dinner. Being out of bed more often is encouraged but must be at least 6 times a day. After you are discharged from the hospital it is very important to continue with the minimum of walking 6 times a day. REASONS TO CALL YOUR UROLOGIST WITHOUT DELAY Any signs of pulmonary embolus (blood clot from pelvis which has gotten into the blood circulation of the lung): Chest pain Difficulty breathing Sensation of heart racing THE ABOVE SYMPTOMS REQUIRE IMMEDIATE ATTENTION AND IF YOU ARE UNABLE TO REACH YOUR UROLOGIST OR UROLOGIST PARTY PLAN SALES AGENT, YOU SHOULD GO TO A NEARBY EMERGENCY ROOM Signs of a blood clot in the legs or pelvis (Deep Vein Thrombosis) Pain in the back of the thigh, calf, or groin. Swelling of the leg. Red streaking color or warmth of the leg. Problems with the surgical incision Redness and/or warmth around incision. Pus draining from the incision. Separation of the skin at the incision line. Other Fever with temperature by mouth greater than 101 F. Nausea, vomiting or severe abdominal bloating. Pain not relieved by prescribed medications. Inability to urinate For urgent and emergent situations 24 hours a day, please call the [facility] urology department * Attachments The following attachments cannot be sent through Care Everywhere. * How to use an incentive spirometer (Trinidadian) * Nephrectomy ??? Discharge instructions (Trinidadian) * How to take anticoagulants safely (Trinidadian) * Vancomycin (Trinidadian) * Cefuroxime (Trinidadian) documented in this encounter Medications at Time [...] 12/08/2024 5 documented as of this encounter Ordered Prescriptions Prescription Sig Dispense Quantity Refills Last Filled Start Date End Date vancomycin (VANCOCIN) 125 mg Oral Capsule Take 1 Capsule by mouth 4 times daily for 34 doses. 34 Capsule 12/08/2024 11:27 AM EDT 12/08/2024 5 hydrOXYzine (VISTARIL) 25 mg Oral Capsule Take 1 Capsule by mouth every 8 hours as needed for Anxiety. 30 Capsule 12/08/2024 11:27 AM EDT 12/08/2024 tolterodine (DETROL LA) 4 mg Oral Capsule, Sust. Release 24 hr Take 1 Capsule by mouth daily. 30 Capsule 12/08/2024 11:27 AM EDT 12/09/2024 traMADoL (ULTRAM) 50 mg Oral Tablet Take 1 Tablet by mouth every 6 hours as needed for Pain for up to 10 days. 20 Tablet 12/08/2024 11:27 AM EDT 12/08/2024 5 acetaminophen 325 mg Oral Tab Take 2 Tablets by mouth every 4 hours as needed for Fever. 12/01/2024 cefUROXime (CEFTIN) 500 mg Oral Tablet Take 1 Tablet by mouth every 12 hours for 5 doses. 5 Tablet 12/08/2024 11:27 AM EDT 12/08/2024 5 documented in this encounter Discharge Disposition Disposition Code Departure Means Destination Comment s Discharge/Readmit Wheelchair Home documented in this encounter Progress Notes * This document contains information received from the source organization and may not represent a complete record from that organization. * Restricted notes were excluded * More Johnston CPhT - 12/08/2024 11:35 AM EDT Discharge Medication Delivery Service DMD career guidance technician has delivered the following medications for Alex Hoffman: Rx#[id number]:TRAMADOL 50 MG TABLET-50 mg EVERY 6 HOURS PRN Rx#[id number]:TOLTERODINE ER 4 MG CAPSULE,EXTENDED RELEASE 24 HR-4 mg DAILY Rx#[id number]:CEFUROXIME AXETIL 500 MG TABLET-500 mg EVERY 12 HOURS SCHEDULED Rx#[id number]:HYDROXYZINE PAMOATE 25 MG CAPSULE-25 mg EVERY 8 HOURS PRN Rx#[id number]:VANCOMYCIN 125 MG CAPSULE-125 mg 4 TIMES DAILY Date/Time of Delivery: 12/08/2024 11:35 AM Delivered to: Room 7308 Placed med bag on tray table. Please contact DMD career guidance technician with any questions. Thanks! More Johnston CPhT * Juana Shoemaker MD - 12/08/2024 11:29 AM EDTAssociated Problem(s): Ureteral mass - urology consulted - 12/01 - s/p Robot-assisted laparoscopic left radical nephroureterectomy. 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 * Juana Shoemaker MD - 12/08/2024 11:29 AM EDTAssociated Problem(s): Acute blood loss as cause of postoperative anemia - hgb 14.5 on admission>>7.2>>9.4>8.7>9.7>9.3 on DC - has received 3 units rbc - ASA on hold - per urology, no need for serial h/h - check iron level - low - started PO iron PLAN: hgb stable, hydroxyzine and ceftin prescribed for DC Dispo: per urology; OT/PT recs 24 hour supervision with low frequency therapy - medically ready forDC * Juana Shoemaker MD - 12/08/2024 10:05 AM EDTAssociated Problem(s): Elevated troponin - CABG planned at some point diffuse severe disease, troponin elevation likely due to demand ischemia, - cards consulted - was holding asa, restarted 12/07 - statin * Juana Shoemaker MD - 12/08/2024 10:05 AM EDTAssociated Problem(s): Coronary artery disease involving [place] coronary artery of [place] heart without angina pectoris - CABG planned at some point diffuse severe disease, troponin elevation likely due to demand ischemia, - cards consulted - was holding asa, restarted 12/07 - statin * Juana Shoemaker MD - 12/08/2024 10:05 AM EDTAssociated Problem(s): Sepsis without acute organ dysfunction (HCC) - likely due to infection and blood loss anemia, was on ceftriaxone, cultures negative thus far. Sepsis syndrome improved - changed antibiotics to PO * Juana Shoemaker MD - 12/08/2024 10:05 AM EDTAssociated Problem(s): Community acquired pneumonia of right middle lobe of lung - likely due to infection and blood loss anemia, was on ceftriaxone, cultures negative thus far. Sepsis syndrome improved - changed antibiotics to PO * Juana Shoemaker MD - 12/08/2024 10:05 AM EDTAssociated Problem(s): Hypotension - likely due to infection and blood loss anemia, was on ceftriaxone, cultures negative thus far. Sepsis syndrome improved - changed antibiotics to PO * Juana Shoemaker MD - 12/08/2024 10:05 AM EDTAssociated Problem(s): C. difficile diarrhea - per urology on oral vanc * Juana Shoemaker MD - 12/08/2024 10:05 AM EDT Images from the original note were not included. PROGRESS NOTE Assessment/Plan: Assessment & Plan Ureteral mass S/p nephrectomy Malignant neoplasm of left ureter (HCC) - urology consulted - 12/01 - s/p Robot-assisted laparoscopic left radical nephroureterectomy. 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 Sepsis syndrome improved - changed antibiotics to PO C. difficile diarrhea - per urology on oral vanc Acute blood loss as cause of postoperative anemia - hgb 14.5 on admission>>7.2>>9.4>8.7>9.7>9.3 on DC - has received 3 units rbc - ASA on hold - per urology, no need for serial h/h - check iron level - low - started PO iron PLAN: hgb stable, hydroxyzine and ceftin prescribed for DC Dispo: per urology; OT/PT recs 24 hour supervision with low frequency therapy - medically ready forDC Total time spent 50 minutes. VTE Prophylaxis: Active Hospital Problems Diagnosis *Ureteral mass C. difficile diarrhea Sepsis without acute organ dysfunction (HCC) Community acquired pneumonia of right middle lobe of lung Hypotension S/p nephrectomy Acute blood loss as cause of postoperative anemia Elevated troponin Malignant neoplasm of left ureter (HCC) Coronary artery disease involving [place] coronary artery of [place] heart without angina pectoris Subjective: at bedside. Going home today. Anxious. Had a bowel movement. No abdominal pain. No nausea/vomiting. No shortness of breath. Objective: BP 127/72 (BP Location: Left arm, Patient Position: Semi Fowlers) Pulse 82 Temp 97.8 ??F (36.6 ??C) (Oral) Resp 18 Ht 5' 8 (1.727 m) Wt 243 lb (110.2 kg) SpO2 98% BMI 36.95 kg/m?? I/O last 3 completed shifts: In: 960 [P.O.:960] Out: 2650 [Urine:2630; Drains:20] Weight: 243 lb (110.2 kg) Constitutional: Alert and oriented to person, place, and time. No distress. Cardiovascular: Normal rate and regular rhythm. Exam reveals no friction rub. No murmur heard. Pulmonary/Chest: Effort normal and breath sounds normal. No respiratory distress. There are no wheezes. Abdominal: Soft. Bowel sounds are normal. No distension. There is no tenderness. There is no rebound and no guarding. Musculoskeletal: No edema. Neurological: Grossly normal. Skin: Skin is warm and dry. No erythema. Bruising to left flank/abdomen Labs: Laboratory data and diagnostic testing reviewed 12/08/24. Juana Shoemaker MD 12/08/2024 10:05 AM * Cailin Roberto RN - 12/08/2024 8:26 AM EDT 12/08/24 0821 Assessment Complete Actual Discharge Plan 12/08/2024 CC FINAL NOTE: Chart reviewed, DC order noted. PT evaluated pt and recommend Low Freq/Int PT, CC created Repisodic List and met with pt foar choices of HH. Pt stated hewas not interested in PT with HH. Note pt is alert and oriented x4. CC met with pt at bedside and completed DC round. Pt states his DC plan is home with family support and outpatient follow up with physicians. Pt states he will have all the help and support he needs for home. Pt states understanding of all DC medications, care needs, and follow up appointments. Pt states his Tessy will transport and he feels safe doing so. Pt states he will notify his Tessy and states no need for CC to call family/friends. No DC needs requested by pt or identified by CC. CC will sign off. Completed by CC/SW Yes Care Coordination Assessment Transportation at Discharge Personal vehicle () Date Expected 12/08/24 Time Expected 1000 * Peace Rea APRN - 12/08/2024 6:50 AM EDT Images from the original note were not included. [facility] Urology Urology Progress Note Hospital Day: 8 No chief complaint on file. Subjective: POD 7 s/p Cystoscopy and transurethral incision of left ureteral orifice, Robot- assisted laparoscopic left radical nephroureterectomy performed by Dr. Haney. Hgb 9.3 this AM. bASA restarted yesterday. Bradford removed yesterday, patient voiding without issue. He is sitting up in chair eating breakfast this AM with his . Having BMs, loose stools improved.Reports minimal abdominal pain, he is ready to go home today. DAMIEN in place with 5ml output this AM. Afebrile, VSS. Objective: Vitals: Patient Vitals for the past 12 hrs: BP Temp Temp src Pulse Resp SpO2 12/08/24 0541 133/77 -- -- 82 18 97 % 12/08/24 0340 -- -- -- 86 -- -- 12/07/24 2310 -- -- -- 74 -- -- 12/07/24 2059 143/83 98.4 ??F (36.9 ??C) Oral 93 20 97 % I/O: Intake/Output Summary (Last 24 hours) at 12/08/2024 0650 Last data filed at 12/07/2024 2103 Gross per 24 hour Intake 960 ml Output 2650 ml Net -1690 ml Labs: Lab Results Component Value Date WBC 9.4 12/08/2024 HGB 9.3 (L) 12/08/2024 HCT 28.5 (L) 12/08/2024 MCV 91.3 12/08/2024 PLT 292 12/08/2024 Lab Results Component Value Date CREATININE 1.07 12/04/2024 BUN 9 12/04/2024 NA 140 12/04/2024 K 3.9 12/04/2024 CL 109 (H) 12/04/2024 CO2 23 12/04/2024 ROS: Review of Systems Constitutional: Negative for chills and fever. Respiratory: Negative for shortness of breath. Cardiovascular: Negative for chest pain. Gastrointestinal: Negative for abdominal distention, abdominal pain, diarrhea, nausea and vomiting. Genitourinary: Negative for difficulty urinating, dysuria, flank pain, frequency, hematuria and urgency. Neurological: Negative for light-headedness. Psychiatric/Behavioral: Negative for agitation, behavioral problems and confusion. Exam: Physical Exam Constitutional: Appearance: Normal appearance. HENT: Head: Normocephalic. Nose: Nose normal. Eyes: Pupils: Pupils are equal, round, and reactive to light. Pulmonary: Effort: Pulmonary effort is normal. Abdominal: General: There is no distension. Palpations: Abdomen is soft. Tenderness: There is no abdominal tenderness. Comments: Incisions c/d/I - + bruising to abd DAMIEN in place with small amount of sanguinous output Musculoskeletal: General: Normal range of motion. Skin: General: Skin is warm and dry. Neurological: Mental Status: He is alert. Mental status is at baseline. Psychiatric: Mood and Affect: Mood normal. Assessment: 49 y.o. 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 Haney on 12/01. Hgb stable Plan: -Continue bASA -Ok to remove DAMIEN drain -Ok for DC today -Continue to hold AC for another week -Follow up with PCP next week with labs/CBC -Follow up in our office in 2 weeks Signed: 12/08/2024 Peace Rea APRN Cosigned by Sadi Haney MD at 12/12/2024 1:11 PM EDT * Juana Shoemaker MD - 12/07/2024 2:47 PM EDTAssociated Problem(s): Ureteral mass - urology consulted - 12/01 - s/p Robot-assisted laparoscopic left radical nephroureterectomy. 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 - cysto today per urology * Juana Shoemaker MD - 12/07/2024 2:47 PM EDTAssociated Problem(s): Elevated troponin - CABG planned at some point diffuse severe disease, troponin elevation likely due to demand ischemia, - cards consulted - was holding asa, restarted 12/07 - statin * Juana Shoemaker MD - 12/07/2024 2:47 PM EDTAssociated Problem(s): Coronary artery disease involving [place] coronary artery of [place] heart without angina pectoris - CABG planned at some point diffuse severe disease, troponin elevation likely due to demand ischemia, - cards consulted - was holding asa, restarted 12/07 - statin * Juana Shoemaker MD - 12/07/2024 2:47 PM EDTAssociated Problem(s): Sepsis without acute organ dysfunction (HCC) - likely due to infection and blood loss anemia, was on ceftriaxone, cultures negative thus far. Sepsis syndrome improved - changed antibiotics to PO * Juana Shoemaker MD - 12/07/2024 2:47 PM EDTAssociated Problem(s): Community acquired pneumonia of right middle lobe of lung - likely due to infection and blood loss anemia, was on ceftriaxone, cultures negative thus far. Sepsis syndrome improved - changed antibiotics to PO * Juana Shoemaker MD - 12/07/2024 2:47 PM EDTAssociated Problem(s): Hypotension - likely due to infection and blood loss anemia, was on ceftriaxone, cultures negative thus far. Sepsis syndrome improved - changed antibiotics to PO * Juana Shoemaker MD - 12/07/2024 2:47 PM EDTAssociated Problem(s): Acute blood loss as cause of postoperative anemia - hgb 14.5 on admission>>7.2>>9.4>8.7>9.7 - has received 3 units rbc - ASA on hold - per urology, no need for serial h/h - check iron level - low - started PO iron PLAN: cysto today per urology, labs in am Dispo: per urology; OT/PT recs 24 hour supervision with low frequency therapy - patient hopeful fortomorrow * Juana Shoemaker MD - 12/07/2024 2:47 PM EDTAssociated Problem(s): C. difficile diarrhea - per urology on oral vanc * Juana Shoemaker MD - 12/07/2024 2:45 PM EDT Images from the original note were not included. PROGRESS NOTE Assessment/Plan: Assessment & Plan Ureteral mass S/p nephrectomy Malignant neoplasm of left ureter (HCC) - urology consulted - 12/01 - s/p Robot-assisted laparoscopic left radical nephroureterectomy. 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 Sepsis syndrome improved - changed antibiotics to PO C. difficile diarrhea - per urology on oral vanc Acute blood loss as cause of postoperative anemia - hgb 14.5 on admission>>7.2>>9.4>8.7>9.7 - has received 3 units rbc - ASA on hold - per urology, no need for serial h/h - check iron level - low - started PO iron PLAN: cysto today per urology, labs in am Dispo: per urology; OT/PT recs 24 hour supervision with low frequency therapy - patient hopeful fortomorrow VTE Prophylaxis: Active Hospital Problems Diagnosis *Ureteral mass Sepsis without acute organ dysfunction (HCC) Community acquired pneumonia of right middle lobe of lung Hypotension S/p nephrectomy Acute blood loss as cause of postoperative anemia Elevated troponin Malignant neoplasm of left ureter (HCC) Coronary artery disease involving [place] coronary artery of [place] heart without angina pectoris Subjective: at bedside. Minimal pain. No nausea/vomiting. Slept well. No diarrhea. No shortness of breath or cough. Doing well today. Objective: BP 122/67 (BP Location: Left arm, Patient Position: Sitting) Pulse 93 Temp 97.8 ??F (36.6 ??C) (Oral) Resp 16 Ht 5' 8 (1.727 m) Wt 243 lb (110.2 kg) SpO2 97% BMI 36.95 kg/m?? I/O last 3 completed shifts: In: 194.9 [I.V.:144.9; IV Piggyback:50] Out: 5960 [Urine:5925; Drains:35] Weight: 243 lb (110.2 kg) Constitutional: Alert and oriented to person, place, and time. No distress. Cardiovascular: Normal rate and regular rhythm. Exam reveals no friction rub. No murmur heard. Pulmonary/Chest: Effort normal and breath sounds normal. No respiratory distress. There are no wheezes. Abdominal: Soft. Bowel sounds are normal. No distension. There is no tenderness. There is no rebound and no guarding. Musculoskeletal: No edema. Neurological: Grossly normal. Skin: Skin is warm and dry. No erythema. Labs: Laboratory data and diagnostic testing reviewed 12/07/24. Juana Shoemaker MD 12/07/2024 2:45 PM * Chela Kay PTA - 12/07/2024 10:46 AM EDT 12/07/24 1045 PT Subjective Note Type Discharge Patient Room/Unit 5382 Discharge Information Discharge complete, please see discharge summary report for further information including most recently documented activity level Clinical Course pt obsesrved to be amb numerous laps in [facility]. therapy will sign off at thistimes Plan PT Frequency Complete Cosigned by Jennifer Santamaria PT at 12/07/2024 11:18 AM EDT Associated attestation - Jennifer Santamaria, PT - 12/07/2024 11:18 AM EDT I agree with the [employer] documentation. * RonaPeaceJULIENN - 12/07/2024 6:58 AM EDT Images from the original note were not included. [facility] Urology Urology Progress Note Hospital Day: 7 No chief complaint on file. Subjective: POD 6 s/p Cystoscopy and transurethral incision of left ureteral orifice, Robot- assisted laparoscopic left radical nephroureterectomy performed by Dr. Haney. Patient sitting up in chair this AM, at bedside. Reports he is feeling good, minimal pain, loose stools improved. C-diff +, PO Vanc started. DAMIEN in place, 15 ml output this AM. Bradford in place anddraining without issue, urine clear yellow. Hgb 9.7 this AM. Afebrile, VSS. Objective: Vitals: Patient Vitals for the past 12 hrs: BP Temp src Pulse Resp SpO2 12/07/24 0417 127/75 -- 80 16 97 % 12/07/24 0342 -- -- 78 -- -- 12/07/24 0019 117/71 -- 69 16 96 % 12/06/24 2337 -- -- 76 -- -- 12/06/24 2208 125/73 Oral -- 17 -- I/O: Intake/Output Summary (Last 24 hours) at 12/07/2024 0659 Last data filed at 12/07/2024 0642 Gross per 24 hour Intake 194.87 ml Output 5960 ml Net -5765.13 ml Labs: Lab Results Component Value Date WBC 10.8 (H) 12/07/2024 HGB 9.7 (L) 12/07/2024 HCT 29.6 (L) 12/07/2024 MCV 91.6 12/07/2024 PLT 301 12/07/2024 Lab Results Component Value Date CREATININE 1.07 12/04/2024 BUN 9 12/04/2024 NA 140 12/04/2024 K 3.9 12/04/2024 CL 109 (H) 12/04/2024 CO2 23 12/04/2024 ROS: Review of Systems Constitutional: Negative for chills and fever. Respiratory: Negative for shortness of breath. Cardiovascular: Negative for chest pain. Gastrointestinal: Negative for abdominal distention, abdominal pain, nausea and vomiting. Genitourinary: Negative for hematuria. Skin: Negative for color change, pallor and rash. Neurological: Negative for light-headedness. Psychiatric/Behavioral: Negative for agitation, behavioral problems and confusion. Exam: Physical Exam Constitutional: Appearance: Normal appearance. HENT: Head: Normocephalic. Nose: Nose normal. Eyes: Pupils: Pupils are equal, round, and reactive to light. Pulmonary: Effort: Pulmonary effort is normal. Abdominal: General: There is no distension. Palpations: Abdomen is soft. Tenderness: There is no abdominal tenderness. Comments: Incisions c/d/I DAMIEN in place with scant sanguinous output noted. Bruising noted to left abdomen Genitourinary: Comments: Bradford in place and draining clear, yellow urine Musculoskeletal: General: Normal range of motion. Skin: General: Skin is warm and dry. Neurological: Mental Status: He is alert. Mental status is at baseline. Psychiatric: Mood and Affect: Mood normal. Assessment: 49 y.o. 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 Haney on 12/01. Hgb stable Plan: -Encourage patient to ambulate -Continue to trend labs-hgb stable, can restart bASA today -DAMIEN drain to stay in place until DC -Plan for Cystogram tomorrow, possible bradford catheter removal afterwards pending results -Continue to turn/reposition patient to offload pressure to coccyx -Anticipate DC in the next few days Signed: 12/07/2024 Peace Rea APRN Cosigned by Sadi Haney MD at 12/07/2024 2:16 PM EDT Associated attestation - Sadi Haney MD - 12/07/2024 2:16 PM EDT Cystogram reviewed, looks ok Order placed for bradford removal and voiding trial * Juana Shoemaker MD - 12/06/2024 1:51 PM EDTAssociated Problem(s): Ureteral mass - urology consulted - 12/01 - s/p Robot-assisted laparoscopic left radical nephroureterectomy. 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 * Juana Shoemaker MD - 12/06/2024 1:51 PM EDTAssociated Problem(s): Elevated troponin - CABG planned at some point diffuse severe disease, troponin elevation likely due to demand ischemia, - cards consulted - holding asa for now, restart 8/2 per urology - statin * Juana Shoemaker MD - 12/06/2024 1:51 PM EDTAssociated Problem(s): Coronary artery disease involving [place] coronary artery of [place] heart without angina pectoris - CABG planned at some point diffuse severe disease, troponin elevation likely due to demand ischemia, - cards consulted - holding asa for now, restart 12/09 per urology - statin * Juana Shoemaker MD - 12/06/2024 1:51 PM EDTAssociated Problem(s): Sepsis without acute organ dysfunction (HCC) - likely due to infection and blood loss anemia, was on ceftriaxone, cultures negative thus far. Sepsis syndrome improved - change antibiotics to PO * Juana Shoemaker MD - 12/06/2024 1:51 PM EDTAssociated Problem(s): Community acquired pneumonia of right middle lobe of lung - likely due to infection and blood loss anemia, was on ceftriaxone, cultures negative thus far. Sepsis syndrome improved - change antibiotics to PO * Juana Shoemaker MD - 12/06/2024 1:51 PM EDTAssociated Problem(s): Hypotension - likely due to infection and blood loss anemia, was on ceftriaxone, cultures negative thus far. Sepsis syndrome improved - change antibiotics to PO * Juana Shoemaker MD - 12/06/2024 1:51 PM EDTAssociated Problem(s): Acute blood loss as cause of postoperative anemia - hgb 14.5 on admission>>7.2>>9.4>8.7 - has received 3 units rbc - ASA on hold - per urology, no need for serial h/h - check iron level - low - start PO iron PLAN: start PO iron, change antibiotics to PO, prn vistaril Dispo: per urology; OT/PT recs 24 hour supervision with low frequency therapy * Juana Shoemaker MD - 12/06/2024 1:32 PM EDT Images from the original note were not included. PROGRESS NOTE Assessment/Plan: Assessment & Plan Ureteral mass S/p nephrectomy Malignant neoplasm of left ureter (HCC) - urology consulted - 12/01 - s/p Robot-assisted laparoscopic left radical nephroureterectomy. 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 Sepsis syndrome improved - change antibiotics to PO Acute blood loss as cause of postoperative anemia - hgb 14.5 on admission>>7.2>>9.4>8.7 - has received 3 units rbc - ASA on hold - per urology, no need for serial h/h - check iron level - low - start PO iron PLAN: start PO iron, change antibiotics to PO, prn vistaril Dispo: per urology; OT/PT recs 24 hour supervision with low frequency therapy Total time spent 53 minutes. VTE Prophylaxis: Active Hospital Problems Diagnosis *Ureteral mass Sepsis without acute organ dysfunction (HCC) Community acquired pneumonia of right middle lobe of lung Hypotension S/p nephrectomy Acute blood loss as cause of postoperative anemia Elevated troponin Malignant neoplasm of left ureter (HCC) Coronary artery disease involving [place] coronary artery of [place] heart without angina pectoris Subjective: Diarrhea improving. Pain is controlled. Didn't sleep well, was up a lot with the diarrhea. Passing gas. at bedside. Discussed no prior history of anemia, she showed me prior labs. Also discussed hisheart and next steps. He is anxious, asking if he can take anything. She doesn't want him taking something everyday as she says it depressed her. He has taken vistaril but 50 mg which put him to sleep. Objective: BP 122/74 (BP Location: Left arm, Patient Position: Sitting) Pulse 85 Temp 97.9 ??F (36.6 ??C) (Oral) Resp 16 Ht 5' 8 (1.727 m) Wt 243 lb (110.2 kg) SpO2 100% BMI 36.95 kg/m?? I/O last 3 completed shifts: In: 104.7 [I.V.:54.7; IV Piggyback:50] Out: 4725 [Urine:4675; Drains:50] Weight: 243 lb (110.2 kg) Constitutional: Alert and oriented to person, place, and time. No distress. Cardiovascular: Normal rate and regular rhythm. Exam reveals no friction rub. No murmur heard. Pulmonary/Chest: Effort normal and breath sounds normal. No respiratory distress. There are no wheezes. Abdominal: Soft. Bowel sounds are normal. No distension. There is tenderness. There is no rebound and no guarding. Bruising to left abdominal wall Musculoskeletal: No edema. Neurological: Grossly normal. Skin: Skin is warm and dry. No erythema. Labs: Laboratory data and diagnostic testing reviewed 12/06/24. Juana Shoemaker MD 12/06/2024 1:32 PM * Stanislav Edith, OT - 12/06/2024 12:47 PM EDT 12/06/24 1222 OT Subjective Note Type Chart Review;Evaluation;Discharge Patient Room/Unit 7308 OT Subjective Comments #1 Pt seated in WC upon OT arrival, agreeable to participate with OT. Others Present/Assisting Pt's spouse Discharge Information Evaluation to serve as discharge summary if no further treatment provided before the facility discharge Admitting Diagnosis 49 y.o. M p/w ureteral mass. Past Med Hx CAD, Acute blood loss anemia Diagnostic Testing Chest XR: There is a right middle lobe pneumonia. A short- term follow-up PA and lateral chest x-ray is recommended in 2-3 weeks to document resolution of the finding. Clinical Course 12/01: LEFT DAVINCI ROBOTIC NEPHROURETERECTOMY, CYSTOSCOPY, TRANSURETHRAL RESECTION OF THE BLADDER TUMOR Precautions Therapy Precautions Yes Precaution Info Given To use call light to request assistance with all mobility Home Living/Prior Function Type of Home House Home Layout One level;Stairs to enter w/ rails;Walk-in shower Number of Steps 2 Home Equipment None;Mobilized without AD [employer] Level of Assistance Independent with ADLs ;Independent with functional transfers;Ambulatory in home;Ambulatory in the community Lives With Spouse Fall History No falls in the last three months ADL Assistance Independent Homemaking Assistance Independent Driving Yes Vocational Disabled (Reports he has been unable to work since he had a heart attack in September) 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, 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 Cognition Orientation Intact Arousal Normal Safety Awareness Normal Affect/Ability to cope Normal Command Following Normal Memory Intact Communication Intact Pain Screening PT/OT Patient Currently in Pain No Observation Presentation Patient seated in chair Observation Bradford catheter;Telemetry;DAMIEN drain UE Assessment LUE Assessment WFL RUE Assessment WFL ADL Interventions Where Assessed Standing at sink Grooming Assistance Supervision;Washing hands Transfers Sit to Stand Independent Stand to Sit Independent OT Gait Gait Supervision (Pt walks in room to BR) Assistive Device None Balance Sitting Balance 4+/5 moves/returns trunkal midpoint 1-2 inches in multiple planes Standing Balance 4/5 indep, moves/returns center of grav 1-2 /1 plane PT/OT Mobility Documentation PT/OT Mobility Score 7 Functional Status Score (FSS-ICU) Is the patient currently in ICU? No AM PAC: How much help from another person does the patient currently need... putting on and taking off regular lower body clothing? 4 bathing (including washing, rinsing, drying)? 3 toileting, which includes using toilet, bedpan or urinal? 1 putting on and taking off regular upper body clothing? 4 taking care of personal grooming such as brushing teeth? 4 eating meals? 4 AM PAC DAILY ACTIVITY SCORING Daily Activity Raw Score 20 AM PAC Daily Activity CMS 0-100% Functional Percentage 38.32 AM PAC Daily Activity CMS G Code Modifier CJ Education Education Role of Therapy;Patient/Family Education;To use call light to request assistance with allmobility;Safety with mobility;Discharge planning Patient Safety Patient left in chair with needs in reach (Spouse present) Assessment Assessment Decreased ADL status;Decreased endurance;Decreased Safe judgement during ADL;Decreased high-level ADLs;Decreased self-care transfers No Skilled OT Safe to return home Additional Comments Pt has good support at home from his spouse. He is safe to d/c home. Goals Patient and/or Family Goal To go home Goals No Plan OT Frequency Complete Recommendation OT Recommendation 24-hour supervision/assist with low frequency therapy with intensity appropriate for patient need.;No therapy recommended. Therapy Equipment Recommended Tub seat with back (Discussed with pt that this would be beneficial if he experiences decreased activity endurance at home) Time In / Time Out 1217/1237 IP OT Evaluation Minutes 10 IP OT Individual Treatment Minutes 10 The total time spent caring for this patient included but was not limited to medical record review;hands-on treatment;communication and education with patient and/or family/caregiver;clinical judgement necessary for treatment planning for next session * Rubens Packer MD - 12/06/2024 8:27 AM EDT Heart & Vascular Progress Note PATIENT: Alex Mckeon Cardiology following for: Hypotension Subjective: Feeling well. No CV complaints. Denies chest pain, SOB, lightheaded, or dizziness. Walking around room w/o issues. Agreeable to restarting toprol today. Objective: Vitals: 12/06/24 0508 BP: Pulse: Resp: 18 Temp: SpO2: I/O 24 hours: Intake/Output Summary (Last 24 hours) at 12/06/2024 0827 Last data filed at 12/06/2024 0441 Gross per 24 hour Intake 104.73 ml Output 4725 ml Net -4620.27 ml Physical Exam: Pt in no distress. Neck supple Heart - S1, S2 regular, no M/R/G. Lungs - +Wheezing Normal pulmonary effort on RA Abd - left flank bruising and DAMIEN drain Extremities- no edema Neuro - Alert and oriented x4 Mood and affect appropriate Medication: [Hold by provider] aspirin 81 mg Oral Daily atorvastatin 80 mg Oral Nightly cefTRIAXone (ROCEPHIN) IVPB (Orderable) 2 g Intravenous Daily melatonin 10 mg Oral Nightly nicotine 1 Patch Transdermal Daily And nicotine 1 Patch Transdermal Nightly pantoprazole 40 mg Oral Daily AC Saccharomyces boulardii 250 mg Oral BID sodium chloride 0.9% Intravenous 2 times per day tolterodine 4 mg Oral Daily Labs & Studies: All pertinent labs & radiologic studies for the past 24 hours have been reviewed Telemetry: SR Assessment: Ureteral mass of left ureter - s/p nephrectomy 12/01 per urology - DAMIEN drain with sanguinous output 42mL output yesterday compared to 145 day prior) Sepsis CAP of RML - Abx per primary Hypotension with hx. HTN - Multifactorial- sepsis, anemia, medications -- Restart toprol 25mg QD today - [employer] Lasix 40gm QD, losartan 50mg QD, Toprol 25mg QD (on hold) Anemia - Hgb 10.2>7.5>8.1>7.9>7.3>8.2>8.9>8.4>9.4>8.7 - s/p 2 U PRBC's 12/03 and 1 U PRBC 12/04 CAD - EKG SR no acute ischemia appreciated - Trops > 26 - Denies chest pain/ diaphoresis/ nausea - [employer] Effient, ASA, Statin, Toprol - Echo 10/2024: EF 60-65%. - LHC showed ostial LAD 70% stenosis, circumflex (nondominant) with 60-70% stenosis, with 30-40% stenosis of first OM. Pt reports he had LHC and PCI on 09/27/24 (VIC x 1 to RCA) at [facility]. Pt was scheduled to have additional PCI to LAD and circ however pt wanted a second opinion for possible CABG surgery. Met with Dr. Kenny 10/10 with plans for CABG x 2 with QUINTIN clip on 10/30/24.however this was postponed until urology w/u is complete. Plan: - Restart toprol 25 today - bASA held until 12/09 per urology request - BP log at home to consider restarting ARB/lasix pending BP trend - CBC 5-7 days after asa initiated Further input from Dr. Packer. Promise Cho, OVEN DAUBER, Heart and Vascular 12/06/2024 Cardiology Disposition Perspective - Medically Ready for Discharge: No Anticipated Discharge: tomorrow Discharge when / if: pending clinical improvement ATTESTATION I saw and evaluated the patient. I agree with the history of present illness, review of systems andpast family/social history as documented in the JOSSIE note. A pertinent examination, impression and plan is documented below confirming my findings and recommendations. Discussed care plan with patient and family at bedside. BP and HR controlled. No cardiac complaints. Starting back Toprol XL 25 mg. Holding bASA until 12/09. Would look to repeat CBC 7-10 days after that and decide on timing of CABG versus DAPT with Plavix. No further inpatient cardiac work up. Follow up in 2 weeks. * Peace Bailon, PT - 12/06/2024 8:01 AM EDT 12/06/24 0639 PT Subjective Note Type Evaluation;Chart Review Patient Room/Unit 7308 PT Subjective Comments #1 pt agreeable Others Present/Assisting spouse Discharge Information Evaluation to serve as discharge summary if no further treatment provided before the facility discharge Admitting Diagnosis Ureteral mass Past Med Hx CAD, Acute blood oss anemia Diagnostic Testing Chest XR: There is a right middle lobe pneumonia. A short- term follow-up PA and lateral chest x-ray is recommended in 2-3 weeks to document resolution of the finding. Clinical Course 12/01: LEFT DAVINCI ROBOTIC NEPHROURETERECTOMY, CYSTOSCOPY, TRANSURETHRAL RESECTION OF THE BLADDER TUMOR Pain Screening PT/OT Patient Currently in Pain Yes Pain Rating Patient unable to rate pain Pain Location Back Pain Orientation Left Pain Intervention(s) Repositioned;Ambulation/Increased activity Additional Comments pt reports soreness from nephrectomy Cognition Orientation Intact Arousal Normal Safety Awareness Normal Affect/Ability to cope Normal Command Following Normal Memory Intact Communication Intact Additional comments pleasant and cooperative Precautions Therapy Precautions Yes Precaution Info Given To use call light to request assistance with all mobility Home Living/Prior Function Type of Home House Home Layout One level;Stairs to enter w/ rails;Walk-in shower Number of Steps 2 Home Equipment None;Mobilized without AD [employer] Level of Assistance Independent with ADLs ;Independent with functional transfers;Ambulatory in home;Ambulatory in the community Lives With Spouse Fall History No falls in the last three months 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, 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 Coord/Sensation Assessed Grossly Intact/Normal Perception Perception Grossly intact/normal Observation Presentation Patient in bathroom Observation Bradford catheter;Telemetry Vitals stable LE Assessment LLE Additional Comments 09/11 RLE Additional Comments 09/11 Bed Mobility Additional Comments pt OOB t/o session Transfers Sit to Stand Modified independent (device) Stand to Sit Modified independent (device) Bed to/from chair Modified independent (device) Gait Gait Stand by assist;Supervision Gait Distance (Feet) 400 Feet (+400) Assistive Device 2 Wheel walker;None Pattern Slow matt Additional Comments pt ambulates around the unit x1 with 2ww and x1 w/out AD. No LOB or path deviations, reports mild fatigue and dyspnea following ambulation Vitals SpO97%, HR 83, BP 139/80 Curbs/Ramps Not performed Functional Status Score (FSS-ICU) Is the patient currently in ICU? No PT/OT Mobility Documentation PT/OT Mobility Score 7 AM PAC: How much help from another person does the patient currently need... turning from your back to your side while in a flat bed without using bedrails? 4 moving from lying on your back to sitting on the side of a flat bed without using bedrails? 4 moving to and from a bed to a chair? 4 standing up from a chair using your arms (e.g. wheelchair, or bedside chair)? 4 need to walk in hospital room? 3 climbing 3-5 steps with a railing? 3 AM PAC: BASIC MOBILITY SCORING AM PAC Moblity Raw Score 22 AM PAC Mobility CMS 0-100% Functional Percentage 25.02 AM PAC Mobility CMS G Code Modifier CJ Balance Sitting Balance 4+/5 moves/returns trunkal midpoint 1-2 inches in multiple planes Standing Balance 3+/5 indep, without support for 30 seconds or greater Additional comments EO/EC x 20s, minimal sway, slight dizziness with EC Education Education Patient/Family Education;Role of Therapy;Safety with mobility;Cues for proper technique;Discharge planning;Safe and proper technique with transfers;Safe and proper technique with gait pattern;Pursed lip breathing Patient Safety Patient Safety Patient left in chair with needs in reach;Nursing notified of status;Other (comment) (spouse present) Assessment Assessment Decreased functional mobility;Decreased activity tolerance ;Decreased endurance Prognosis Good Rationale for Skilled Therapy Balance Deficits;Decreased endurance and tolerance to activity;Able to make measurable improvements Goals Patient and/or Family Goal get stronger. Walk out like I walked in. PT GOALS (Yes/No) Yes Add Goals Will Ambulate With least restrictive assistive device;> 200 feet;Independently Will Go Up / Down Stairs 3-5 stairs;With stand by assist Will Tolerate Continuous Activity 16-20 min;To improve functional mobility Goal Formulation With patient/family Time for Goal Achievement/Duration of Treatment 14 days, 12/20/2024 Plan Treatment/Interventions Gait training;Bed mobility;Neuromuscular re- education;Balance training;Functional transfer training;LE strengthening/ROM;Increase activity tolerance PT Frequency 1-2x/wk Recommendation PT Recommendation Low frequency therapy with intensity appropriate for patient need recommended. Therapy Equipment Recommended Tub seat with back Time In / Time Out [id number]; 732-801 IP PT Evaluation Minutes 10 IP PT Treatment Minutes 39 The total time spent caring for this patient included but was not limited to medical record review;hands-on treatment;communication and education with patient and/or family/caregiver;clinical judgement necessary for treatment planning for next session;communication with nursing and/or care coordinat ion/social work regarding patient status and discharge planning * Brody Martin PA - 12/06/2024 7:41 AM EDT Images from the original note were not included. [facility] Urology Urology Progress Note Hospital Day: 6 No chief complaint on file. Subjective: The patient is post op day 5 s/p Cystoscopy and transurethral incision of left ureteral orifice, Robot-assisted laparoscopic left radical nephroureterectomy performed by Dr. Haney. The patient is sitting in a wheelchair at the time of examination. He just got finished working with physical therapy. He states that he is not in any acute pain or discomfort at this time. He statesthat he has been having nausea and diarrhea. Bradford catheter is not bothering him. No questions or concerns at this time. Patient afebrile, VSS. WBC WNL. Hgb 8.7, Hct 25.7. Objective: Vitals: Patient Vitals for the past 12 hrs: BP Temp src Pulse Resp SpO2 12/06/24 0508 -- -- -- 18 -- 12/06/24 0409 -- -- 80 18 97 % 12/06/24 0330 -- -- 72 -- -- 12/06/24 0134 -- -- 73 -- -- 12/05/24 2337 -- -- 75 -- -- 12/05/24 2122 145/80 Oral -- 19 -- I/O: Intake/Output Summary (Last 24 hours) at 12/06/2024 0741 Last data filed at 12/06/2024 0441 Gross per 24 hour Intake 104.73 ml Output 4725 ml Net -4620.27 ml Labs: Lab Results Component Value Date WBC 8.9 12/06/2024 HGB 8.7 (L) 12/06/2024 HCT 25.7 (L) 12/06/2024 MCV 90.8 12/06/2024 PLT 217 12/06/2024 Lab Results Component Value Date CREATININE 1.07 12/04/2024 BUN 9 12/04/2024 NA 140 12/04/2024 K 3.9 12/04/2024 CL 109 (H) 12/04/2024 CO2 23 12/04/2024 ROS: Review of Systems Constitutional: Negative for chills, fatigue and fever. HENT: Negative for sinus pressure, sinus pain, sneezing and sore throat. Respiratory: Negative for cough, shortness of breath and wheezing. Gastrointestinal: Positive for diarrhea and nausea. Negative for vomiting. Genitourinary: Negative for dysuria, flank pain, frequency, hematuria and urgency. Neurological: Negative for dizziness and weakness. Psychiatric/Behavioral: Negative for confusion. The patient is not nervous/anxious. Exam: Physical Exam Constitutional: Appearance: Normal appearance. HENT: Head: Normocephalic. Nose: Nose normal. Mouth/Throat: Mouth: Mucous membranes are moist. Eyes: Conjunctiva/sclera: Conjunctivae normal. Pulmonary: Effort: Pulmonary effort is normal. Abdominal: General: There is no distension. Palpations: Abdomen is soft. Tenderness: There is abdominal tenderness. Comments: DAMIEN drain securely in place at this time. Bandage was clean, dry, and intact; dried blood noted. 40 mL output documented overnight Bruising noted along left side of abdomen. Abdomen was slightly tender, nondistended Genitourinary: Comments: bradford catheter securely in place and draining clear, yellow urine at this time; 1675 mL output noted overnight Skin: General: Skin is warm and dry. Neurological: General: No focal deficit present. Mental Status: He is alert and oriented to person, place, and time. Psychiatric: Mood and Affect: Mood normal. Behavior: Behavior normal. Assessment: 49 y.o. male who is post op day 5 s/p Cystoscopy and transurethral incision of left ureteral orifice, Robot-assisted laparoscopic left radical nephroureterectomy performed by Dr. Haney. Patient ambulating in the hallway. Patient has been nauseous this morning, has been having diarrhea. No pain. No questions or concerns. Plan: -encouraged patient to continue to ambulate, out of bed as tolerated -continue to trend labs; hemoglobin stable at this time -Continue to turn/reposition patient to offload pressure to coccyx -DAMIEN off suction -hold bASA until 12/09 if possible -Continue abx, consider transitioning to PO for pneumonia -Cardiology and hospitalist team following Signed: 12/06/2024 AMEENA DUNN Cosigned by Sadi Haney MD at 12/12/2024 1:09 PM EDT * Brody Martin PA - 12/05/2024 10:58 PM EDT Images from the original note were not included. [facility] Urology Urology Progress Note Hospital Day: 5 No chief complaint on file. Subjective: The patient is sitting on the side of the bed at the time of examination. He states that he has been walking around a lot today. He has been ambulating to the bathroom and in the hallway. He states that he is concerned as he noticed bruising on his left side. He has been having slight soreness in his abdomen but otherwise denies any pain or discomfort at this time. Patient afebrile, VSS. Hgb 9.4, Hct 27.8. Objective: Vitals: Patient Vitals for the past 12 hrs: BP Temp src Pulse Resp SpO2 12/05/24 2122 145/80 Oral -- 19 -- 12/05/24 1756 137/81 -- 88 -- -- 12/05/24 1707 -- -- 81 -- -- 12/05/24 1542 -- -- 96 -- -- 12/05/24 1320 144/86 -- 99 17 97 % 12/05/24 1309 -- -- 105 -- -- 12/05/24 1119 -- -- 89 -- -- I/O: Intake/Output Summary (Last 24 hours) at 12/05/2024 2259 Last data filed at 12/05/20242 Gross per 24 hour Intake 579.73 ml Output 4427 ml Net -3847.27 ml Labs: Lab Results Component Value Date WBC 8.0 12/05/2024 HGB 9.4 (L) 12/05/2024 HCT 27.8 (L) 12/05/2024 MCV 90.7 12/05/2024 PLT 187 12/05/2024 Lab Results Component Value Date CREATININE 1.07 12/04/2024 BUN 9 12/04/2024 NA 140 12/04/2024 K 3.9 12/04/2024 CL 109 (H) 12/04/2024 CO2 23 12/04/2024 ROS: Review of Systems Constitutional: Negative for chills, fatigue and fever. HENT: Negative for sinus pressure, sinus pain, sneezing and sore throat. Eyes: Negative for discharge and redness. Respiratory: Negative for cough, shortness of breath and wheezing. Gastrointestinal: Positive for abdominal pain (soreness). Negative for diarrhea, nausea and vomiting. Genitourinary: Negative for dysuria, flank pain, frequency, hematuria and urgency. Neurological: Negative for dizziness and weakness. Psychiatric/Behavioral: Negative for confusion. The patient is not nervous/anxious. Exam: Physical Exam Constitutional: Appearance: Normal appearance. HENT: Head: Normocephalic. Nose: Nose normal. Mouth/Throat: Mouth: Mucous membranes are moist. Eyes: Conjunctiva/sclera: Conjunctivae normal. Pulmonary: Effort: Pulmonary effort is normal. Abdominal: General: There is no distension. Palpations: Abdomen is soft. Tenderness: There is abdominal tenderness. Comments: DAMIEN drain securely in place at this time with slight bloody output noted. Bandage was clean, dry, and intact; no saturation noted. Bruising noted along left side of abdomen. Abdomen was slightly tender, nondistended Genitourinary: Comments: bradford catheter securely in place and draining clear, yellow urine at this time; 2050 mL output noted this evening Skin: General: Skin is warm and dry. Neurological: General: No focal deficit present. Mental Status: He is alert and oriented to person, place, and time. Psychiatric: Mood and Affect: Mood normal. Behavior: Behavior normal. Assessment: 49 y.o. male who post op day 4 s/p Cystoscopy and transurethral incision of left ureteral orifice, Robot-assisted laparoscopic left radical nephroureterectomy performed by Dr. Haney. Patient with a little abdominal soreness. Bruising noted on left side of abdomen. Patient ambulating in hallway. Plan: -bruising normal and likely to be from surgery -encouraged patient to continue to ambulate, out of bed as tolerated -continue to trend labs -Continue to turn/reposition patient to offload pressure to coccyx Signed: 12/05/2024 AMEENA DUNN Cosigned by Bernard Purdy MD at 12/06/2024 11:24 AM EDT * Juana Shoemaker MD - 12/05/2024 1:37 PM EDTAssociated Problem(s): Ureteral mass - urology consulted - 12/01 - s/p Robot-assisted laparoscopic left radical nephroureterectomy. - pathology pending * Juana Shoemaker MD - 12/05/2024 1:37 PM EDTAssociated Problem(s): S/p nephrectomy - urology consulted - 12/01 - s/p Robot-assisted laparoscopic left radical nephroureterectomy. - pathology pending * Juana Shoemaker MD - 12/05/2024 1:37 PM EDTAssociated Problem(s): Malignant neoplasm of left ureter (HCC) - urology consulted - 12/01 - s/p Robot-assisted laparoscopic left radical nephroureterectomy. - pathology pending * Juana Shoemaker MD - 12/05/2024 1:37 PM EDTAssociated Problem(s): Elevated troponin - CABG planned at some point diffuse severe disease, troponin elevation likely due to demand ischemia, - cards consulted - holding asa for now - statin * Juana Shoemaker MD - 12/05/2024 1:37 PM EDTAssociated Problem(s): Coronary artery disease involving [place] coronary artery of [place] heart without angina pectoris - CABG planned at some point diffuse severe disease, troponin elevation likely due to demand ischemia, - cards consulted - holding asa for now - statin * Juana Shoemaker MD - 12/05/2024 1:37 PM EDTAssociated Problem(s): Sepsis without acute organ dysfunction (HCC) - likely due to infection and blood loss anemia, continue ceftriaxone, cultures negative thus far. Sepsis syndrome improved * Juana Shoemaker MD - 12/05/2024 1:37 PM EDTAssociated Problem(s): Community acquired pneumonia of right middle lobe of lung - likely due to infection and blood loss anemia, continue ceftriaxone, cultures negative thus far. Sepsis syndrome improved * Juana Shoemaker MD - 12/05/2024 1:37 PM EDTAssociated Problem(s): Hypotension - likely due to infection and blood loss anemia, continue ceftriaxone, cultures negative thus far. Sepsis syndrome improved * Juana Shoemaker MD - 12/05/2024 1:37 PM EDTAssociated Problem(s): Acute blood loss as cause of postoperative anemia - hgb 14.5 on admission>>>9.4 - has received 3 units rbc - ASA on hold - per urology, no need for serial h/h - check iron level PLAN: melatonin qhs, check iron level, consult PT/OT Dispo: per urology * Juana Shoemaker MD - 12/05/2024 1:31 PM EDT Images from the original note were not included. PROGRESS NOTE Assessment/Plan: Assessment & Plan Ureteral mass S/p nephrectomy Malignant neoplasm of left ureter (HCC) - urology consulted - 12/01 - s/p Robot-assisted laparoscopic left radical nephroureterectomy. - pathology pending Elevated troponin Coronary artery disease involving [place] coronary artery of [place] heart without angina pectoris - CABG planned at some point diffuse severe disease, troponin elevation likely due to demand ischemia, - cards consulted - holding asa for now - statin Sepsis without acute organ dysfunction (HCC) Community acquired pneumonia of right middle lobe of lung Hypotension - likely due to infection and blood loss anemia, continue ceftriaxone, cultures negative thus far. Sepsis syndrome improved Acute blood loss as cause of postoperative anemia - hgb 14.5 on admission>>>9.4 - has received 3 units rbc - ASA on hold - per urology, no need for serial h/h - check iron level PLAN: melatonin qhs, check iron level, consult PT/OT Dispo: per urology Total time spent 51 minutes. VTE Prophylaxis: Active Hospital Problems Diagnosis *Ureteral mass Sepsis without acute organ dysfunction (HCC) Community acquired pneumonia of right middle lobe of lung Hypotension S/p nephrectomy Acute blood loss as cause of postoperative anemia Elevated troponin Malignant neoplasm of left ureter (HCC) Coronary artery disease involving [place] coronary artery of [place] heart without angina pectoris Subjective: at bedside. Some abdominal pain. Some diarrhea today. Nausea. No vomiting. Improving dizziness. Not sleeping well. is worried he is dying. Worried he is going to have a massive heart attack. Feels very weak and not ready for open heart surgery. Objective: BP 144/86 Pulse 99 Temp 97.6 ??F (36.4 ??C) (Oral) Resp 17 Ht 5' 8 (1.727 m) Wt 243 lb (110.2 kg) SpO2 97% BMI 36.95 kg/m?? I/O last 3 completed shifts: In: 1176.3 [P.O.:830; Blood:296.3; IV Piggyback:50] Out: 4117 [Urine:4075; Drains:42] Weight: 243 lb (110.2 kg) Constitutional: Alert and oriented to person, place, and time. No distress. Cardiovascular: Normal rate and regular rhythm. Exam reveals no friction rub. No murmur heard. Pulmonary/Chest: Effort normal and breath sounds normal. No respiratory distress. There are no wheezes. Abdominal: Soft. Bowel sounds are normal. No distension. There is no tenderness. There is no rebound and no guarding. Musculoskeletal: No edema. Neurological: Grossly normal. Skin: Skin is warm and dry. No erythema. Labs: Laboratory data and diagnostic testing reviewed 12/05/24. Juana Shoemaker MD 12/05/2024 1:31 PM * Rubens Packer MD - 12/05/2024 9:24 AM EDT Heart & Vascular Progress Note PATIENT: Alex Hoffman 4 Cardiology following for: Hypotension Subjective: Walking to bathroom this morning. No lightheaded, dizziness, or SOB. He is on RA. Having diarrhea. Objective: Vitals: 12/05/24 0759 BP: 127/72 Pulse: 85 Resp: 18 Temp: 97.6 ??F (36.4 ??C) SpO2: 97% I/O 24 hours: Intake/Output Summary (Last 24 hours) at 12/05/2024 0925 Last data filed at 12/05/2024 0912 Gross per 24 hour Intake 1176.25 ml Output 4562 ml Net -3385.75 ml Physical Exam: Pt in no distress. Walking around room w/ walker. Neck supple Heart - S1, S2 regular, no M/R/G. Lungs - +Wheezing Normal pulmonary effort on RA Abd - left flank bruising and DAMIEN drain Extremities- no edema Neuro - Alert and oriented x4 Mood and affect appropriate Medication: [Hold by provider] aspirin 81 mg Oral Daily atorvastatin 80 mg Oral Nightly cefTRIAXone (ROCEPHIN) IVPB (Orderable) 2 g Intravenous Daily docusate sodium 100 mg Oral BID nicotine 1 Patch Transdermal Daily And nicotine 1 Patch Transdermal Nightly pantoprazole 40 mg Oral Daily AC sodium chloride 0.9% Intravenous 2 times per day tolterodine 4 mg Oral Daily sodium chloride 0.9% Stopped (12/04/24 0915) Labs & Studies: All pertinent labs & radiologic studies for the past 24 hours have been reviewed Telemetry: SR Assessment: Ureteral mass of left ureter - s/p nephrectomy 12/01 per urology - DAMIEN drain with sanguinous output 42mL output yesterday compared to 145 day prior) Sepsis CAP of RML - Abx per primary Hypotension with hx. HTN - Multifactorial- sepsis, anemia, medications -- Recommended restarting Toprol 12/03, pt hesitant to restart- no doses yet 12/04 - [employer] Lasix 40gm QD, losartan 50mg QD, Toprol 25mg QD (on hold) Anemia - Hgb 10.2>7.5>8.1>7.9>7.3>8.2>8.9>8.4 - s/p 2 U PRBC's 12/03 and 1 U PRBC 12/04 CAD - EKG SR no acute ischemia appreciated - Trops > - Denies chest pain/ diaphoresis/ nausea - [employer] Effient, ASA, Statin, Toprol - Echo 10/2024: EF 60-65%. - LHC showed ostial LAD 70% stenosis, circumflex (nondominant) with 60-70% stenosis, with 30-40% stenosis of first OM. Pt reports he had LHC and PCI on 09/27/24 (VIC x 1 to RCA) at [facility]. Pt was scheduled to have additional PCI to LAD and circ however pt wanted a second opinion for possible CABG surgery. Met with Dr. Kenny 10/10 with plans for CABG x 2 with QUINTIN clip on 10/30/24.however this was postponed until urology w/u is complete. 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 per urology wants to hold at least until tomorrow. will follow cbc trend. Further input from Dr. Packer. Promise Cho APRN, Heart and Vascular 12/05/2024 Cardiology Disposition Perspective - Medically Ready for Discharge: No Anticipated Discharge: 1-2 days Discharge when / if: pending improvement of hgb & restarting AC ATTESTATION I saw and evaluated the patient. I agree with the history of present illness, review of systems andpast family/social history as documented in the JOSSIE note. A pertinent examination, impression and plan is documented below confirming my findings and recommendations. Discussed care plan with patient at bedside. PCI in September. Working towards CABG. [employer] Effient and bASA. Currently holding both. Recommend resumption bASA as soon as cleared by Urology. BP controlled on current regimen. Hgb trend better today. Will follow tomorrow. * Peace Rea APRN - 12/05/2024 8:01 AM EDT Images from the original note were not included. [facility] Urology Urology Progress Note Hospital Day: 5 No chief complaint on file. Subjective: Patient standing at the bedside, present. Reports he is feeling better today. Has had some nausea and loose stools. Tolerating regular diet. Hgb 8.4 this AM. Damien in place, off suction. 2ml outputdocumented from DAMIEN this AM. Bradford in place and draining clear, yellow urine. 1375ml UOP documented this AM. Hgb stable.Afebrile, VSS. Objective: Vitals: Patient Vitals for the past 12 hrs: BP Temp Temp src Pulse Resp SpO2 12/05/24 0515 -- -- -- 66 -- -- 12/05/24 0411 112/66 -- -- 69 20 95 % 12/05/24 0305 -- -- -- 68 -- -- 12/05/24 0115 -- -- -- 75 -- -- 12/05/24 0019 122/57 -- -- 78 18 98 % 12/04/24 2342 -- -- -- 72 -- -- 12/04/24 2323 130/61 -- -- 74 18 96 % 12/04/24 2050 108/56 98.4 ??F (36.9 ??C) Oral 80 17 99 % I/O: Intake/Output Summary (Last 24 hours) at 12/05/2024 0801 Last data filed at 12/05/2024 0502 Gross per 24 hour Intake 1176.25 ml Output 4117 ml Net -2940.75 ml Labs: Lab Results Component Value Date WBC 8.0 12/05/2024 HGB 8.4 (L) 12/05/2024 HCT 25.3 (L) 12/05/2024 MCV 90.7 12/05/2024 PLT 187 12/05/2024 Lab Results Component Value Date CREATININE 1.07 12/04/2024 BUN 9 12/04/2024 NA 140 12/04/2024 K 3.9 12/04/2024 CL 109 (H) 12/04/2024 CO2 23 12/04/2024 ROS: Review of Systems Constitutional: Negative for chills and fever. Respiratory: Negative for shortness of breath. Cardiovascular: Negative for chest pain. Gastrointestinal: Positive for abdominal pain (mild) and nausea. Negative for vomiting. Genitourinary: Negative for hematuria. Neurological: Negative for light-headedness. Psychiatric/Behavioral: Negative for agitation, behavioral problems and confusion. Exam: Physical Exam Constitutional: Appearance: Normal appearance. HENT: Head: Normocephalic. Nose: Nose normal. Eyes: Pupils: Pupils are equal, round, and reactive to light. Pulmonary: Effort: Pulmonary effort is normal. Abdominal: General: There is no distension. Palpations: Abdomen is soft. Tenderness: There is no abdominal tenderness. Comments: Incisions c/d/I DAMIEN with scant sanguinous output Genitourinary: Comments: Bradford in place and draining clear, yellow urine Musculoskeletal: General: Normal range of motion. Skin: General: Skin is warm and dry. Neurological: Mental Status: He is alert. Mental status is at baseline. Psychiatric: Mood and Affect: Mood normal. Assessment: 49 y.o. 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 Haney on 12/01 Plan: -Continue to trend labs -bASA on hold -DAMIEN off suction -Continue to turn/reposition patient to offload pressure to coccyx -Continue abx, consider transitioning to PO for pneumonia -Cardiology and hospitalist team following Signed: 12/05/2024 Peace Rea APRN Cosigned by Sadi Haney MD at 12/05/2024 1:42 PM EDT Associated attestation - Sadi Haney MD - 12/05/2024 1:42 PM EDT Agree w/plan * Peace Rea APRN - 12/04/2024 8:30 PM EDT Images from the original note were not included. [facility] Urology Urology Progress Note Hospital Day: 4 No chief complaint on file. Subjective: Patient resting in bed tonight, no current complaints. Patient received 1 unit PRBCs this AM. Most recent Hgb 8.9 ~[address] with small amount of sanguinous output noted. Bradford in placeand draining clear, yellow urine. Patient had BM today, tolerating regular diet, denies n/v. Afebrile, VSS. Objective: Vitals: Patient Vitals for the past 12 hrs: BP Temp Temp src Pulse Resp SpO2 12/04/24 1832 123/70 98.2 ??F (36.8 ??C) -- -- -- -- 12/04/24 1527 114/68 97.8 ??F (36.6 ??C) Oral 81 16 98 % 12/04/24 1507 -- -- -- 95 -- -- 12/04/24 1436 106/69 -- -- -- -- -- 12/04/24 1307 -- -- -- 88 -- -- 12/04/24 1244 105/61 -- -- -- -- 96 % 12/04/24 1202 113/68 -- -- 87 18 96 % 12/04/24 1121 111/65 98.3 ??F (36.8 ??C) Oral 83 18 96 % 12/04/24 1103 113/62 -- -- 85 -- -- 12/04/24 1100 -- -- -- 80 -- -- 12/04/24 0930 104/55 98.1 ??F (36.7 ??C) -- 80 18 96 % 12/04/24 0854 98/48 98 ??F (36.7 ??C) Oral 73 18 96 % I/O: Intake/Output Summary (Last 24 hours) at 12/04/20242029 Last data filed at 12/04/2024 1439 Gross per 24 hour Intake 346.25 ml Output 4760 ml Net -4413.75 ml Labs: Lab Results Component Value Date WBC 6.5 12/04/2024 HGB 8.9 (L) 12/04/2024 HCT 26.5 (L) 12/04/2024 MCV 88.8 12/04/2024 PLT 145 (L) 12/04/2024 Lab Results Component Value Date CREATININE 1.07 12/04/2024 BUN 9 12/04/2024 NA 140 12/04/2024 K 3.9 12/04/2024 CL 109 (H) 12/04/2024 CO2 23 12/04/2024 ROS: Review of Systems Constitutional: Negative for chills and fever. Respiratory: Negative for shortness of breath. Cardiovascular: Negative for chest pain. Gastrointestinal: Positive for abdominal pain. Negative for abdominal distention, nausea and vomiting. Genitourinary: Negative for hematuria. Skin: Negative for color change, pallor and rash. Neurological: Negative for light-headedness. Psychiatric/Behavioral: Negative for agitation, behavioral problems and confusion. Exam: Physical Exam Constitutional: Appearance: Normal appearance. HENT: Head: Normocephalic. Nose: Nose normal. Eyes: Pupils: Pupils are equal, round, and reactive to light. Pulmonary: Effort: Pulmonary effort is normal. Abdominal: General: There is no distension. Palpations: Abdomen is soft. Tenderness: There is abdominal tenderness (mild to palpation). Comments: Incisions c/d/I DAMIEN present-small amount of sanguinous output noted Genitourinary: Comments: Bradford catheter in place and draining clear, yellow urine Musculoskeletal: General: Normal range of motion. Skin: General: Skin is warm and dry. Neurological: Mental Status: He is alert. Mental status is at baseline. Psychiatric: Mood and Affect: Mood normal. Assessment: 49 y.o. 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 Haney on 12/01. Plan: -bASA on hold -DAMIEN off suction -Continue to turn/reposition patient to offload pressure to coccyx -Continue abx, consider transitioning to PO for pneumonia -Cardiology and hospitalist team following Signed: 12/04/2024 Peace Rea APRN Cosigned by Bernard Purdy MD at 12/05/2024 7:33 AM EDT * Cailin Roberto RN - 12/04/2024 12:42 PM EDT 12/04/24 1233 Assessment Complete Actual Discharge Plan 12/04/2024 CC INITIAL ASSESSMENT: Chart reviewed. Pt admitted with Ureteral Mass, pt has [employer] insurance. Note pt is alert and oriented x4. CC met with pt and Tessy at bedside and introduced self and role. Pt states he lives in a 1 story home with 2 steps to enter, ptstates he lives with his Tessy. PCP is Reyna Perez. Pt states he uses [facility] in [place]. Pt states he has concerns with affordability of medications, food, transportation, utilities, and other bills, CC provided resources Pt Toolkit and other resources. Pt states he was independent with ADL???s prior to admission. DME none, HHC pt states he has never been active with HH. Pt states he normally transports via his personal vehicle. Pt states he will transport via his Tessy at [place]. Pt identified his Tessy as his d/c planning support person. SDOH screen completed. Thereare no DC needs requested or identified at this time. CC following. Completed by CC/SW Yes Care Coordination Assessment Mental Status Alert and oriented Does patient need experienced truck driver? No Decision Maker Patient Activities of Daily Living Prior to Admission Independent with ADLS;Independent with Homemaking;Independent with mobility Patient's Living Arrangments Prior to Admission? Private Residence With Other(s) Private Residence With Other(s) Spouse/Significant Other Support Systems Spouse/Significant Other Quality of Support System Adequate DME Used at Home None Anticipated post-acute care needs Home with OP Follow Up * Carolyn Milton Sr. - 12/04/2024 10:10 AM EDT Images from the original note were not included. 12/04/24 1400 Reason for Visit Date of visit 12/04/24 Visited With Patient and family/visitors Visited By Spiritual Care Volunteer (Mavis Molina) Reason for Visit Spiritual, emotional or social support Patient Assessment Patient Appears Calm Spiritual Strengths and Coping Resources Support system;Meaningful relationship or connection with God Interventions with Patient Congregation Interventions Prayer with patient or family Outcomes Expressed Outcomes Appreciative of visit Care Plan Plan for Follow-Up Canvas Repairer(s) will continue to follow throughout admission Carolyn Milton * Rubens Packer MD - 12/04/2024 9:15 AM EDT Heart & Vascular Progress Note PATIENT: Alex Dailey Cardiology following for: Hypotension Subjective: Having panic attacks today. States he wakes himself up when he finally falls asleep. Blood transfusing this morning. BP soft today- does not want to take toprol. on 1LNC for comfort, oxygen level stable. Objective: Vitals: 12/04/24 0854 BP: 98/48 Pulse: 73 Resp: 18 Temp: 98 ??F (36.7 ??C) SpO2: 96% I/O 24 hours: Intake/Output Summary (Last 24 hours) at 12/04/2024 0915 Last data filed at 12/04/2024 0802 Gross per 24 hour Intake 834.78 ml Output 3790 ml Net -2955.22 ml Physical Exam: Pt in no distress. He is obese. at bedside. Neck supple Heart - S1, S2 regular, no M/R/G. Lungs - Clear/diminished. Normal pulmonary effort on 1L NC. Abd - left flank bruising and DAMIEN drain Extremities- no edema Neuro - Alert and oriented x4 Mood and affect appropriate Medication: aspirin 81 mg Oral Daily atorvastatin 80 mg Oral Daily cefTRIAXone (ROCEPHIN) IVPB (Orderable) 2 g Intravenous Daily docusate sodium 100 mg Oral BID metoprolol succinate 25 mg Oral Daily nicotine 1 Patch Transdermal Daily And nicotine 1 Patch Transdermal Nightly pantoprazole 40 mg Oral Daily AC tolterodine 4 mg Oral Daily sodium chloride 0.9% 50 mL (12/04/24 0846) Labs & Studies: All pertinent labs & radiologic studies for the past 24 hours have been reviewed Telemetry: SR Assessment: Ureteral mass of left ureter - s/p nephrectomy 12/01 per urology Sepsis CAP of RML - Abx per primary Hypotension with hx. HTN - Multifactorial- sepsis, anemia, medications -- Recommended restarting Toprol 12/03, pt hesitant to restart- no doses yet 12/04 - [employer] Lasix 40gm QD, losartan 50mg QD, Toprol 25mg QD (on hold) Anemia - Hgb 10.2>7.5>8.1>7.9>7.3 - s/p 2 U PRBC's 12/03 and 1 U PRBC 12/04 CAD - EKG SR no acute ischemia appreciated - Trops 27> 26 - Denies chest pain/ diaphoresis/ nausea - [employer] Effient, ASA, Statin, Toprol - Echo 10/2024: EF 60-65%. - LHC showed ostial LAD 70% stenosis, circumflex (nondominant) with 60-70% stenosis, with 30-40% stenosis of first OM. Pt reports he had LHC and PCI on 09/27/24 (VIC x 1 to RCA) at [facility]. Pt was scheduled to have additional PCI to LAD and circ however pt wanted a second opinion for possible CABG surgery. Met with Dr. Kenny 10/10 with plans for CABG x 2 with QUINTIN clip on 10/30/24.however this was postponed until urology w/u is complete. Plan: - Supportive care per others - Continue statin, Toprol - Will discuss bASA plans with attending fire safety inspector - on hold currently last dose today 12/04 Addendum 1510: - Resp status improved post blood transfusion, no diuresis at this time. Further input from Dr. Packer. Promise Cho APRN, Heart and Vascular 12/04/2024 Cardiology Disposition Perspective - Medically Ready for Discharge: No Anticipated Discharge: 1-2 days Discharge when / if: pending clinical improvement ATTESTATION I saw and evaluated the patient. I agree with the history of present illness, review of systems andpast family/social history as documented in the JOSSIE note. A pertinent examination, impression and plan is documented below confirming my findings and recommendations. Discussed care plan with patient and family at bedside. Here with ureteral mass s/p nephrectomy. Post op Hgb trending down. Transfused 2 U yesterday and 1 U today. CAP on antibiotics. Known MV coronary disease with RCA PCI in September. Work up for CABG with Dr. Kenny. Holding bASA today. Will follow closely for resumption. * Fili Thrasher MD - 12/04/2024 9:09 AM EDTAssociated Problem(s): Ureteral mass Status post robotic assisted laparoscopic left radical nephroureterectomy 12/01 Urology following. DAMIEN drain in place. DAMIEN drain with bloody output. * Fili Thrasher MD - 12/04/2024 9:09 AM EDTAssociated Problem(s): Coronary artery disease involving [place] coronary artery of [place] heart without angina pectoris Cardiology consulted. Plan for CABG at some point. Diffuse severe disease. Aspirin and statin. Aspirin complicates due to persistent bleeding. 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 * Fili Thrasher MD - 12/04/2024 9:09 AM EDTAssociated Problem(s): Community acquired pneumonia of right middle lobe of lung Continue ceftriaxone. Sepsis improving. * Fili Thrasher MD - 12/04/2024 9:09 AM EDTAssociated Problem(s): Hypotension Blood pressure soft. Plan to hold metoprolol. * Fili Thrasher MD - 12/04/2024 9:09 AM EDTAssociated Problem(s): Acute blood loss as cause of postoperative anemia Received 2 units of packed red blood cell. Plan for another 1 unit of packed red blood cell transfusion Monitor hemoglobin closely after transfusion. * Fili Thrasher MD - 12/04/2024 8:25 AM EDT Images from the original note were not included. Adult Progress Note Admit Date: 12/01/2024 LOS: 3 days HPI: Alex Hoffman is a 49 y.o. male admitted with Ureteral mass [N28.89] Malignant neoplasm of left ureter (HCC) [C66.2]. Assessment/ Plan Assessment & Plan Ureteral mass Status post robotic assisted laparoscopic left radical nephroureterectomy 12/01 Urology following. DAMIEN drain in place. DAMIEN drain with bloody output. Coronary artery disease involving [place] coronary artery of [place] heart without angina pectoris Cardiology consulted. Plan for CABG at some point. Diffuse severe disease. Aspirin and statin. Aspirin complicates due to persistent bleeding. Malignant neoplasm of left ureter (HCC) Status post left radical nephroureterectomy Sepsis without acute organ dysfunction (HCC) Improving. Community acquired pneumonia of right middle lobe of lung Continue ceftriaxone. Sepsis improving. Hypotension Blood pressure soft. Plan to hold metoprolol. S/p nephrectomy Acute blood loss as cause of postoperative anemia Received 2 units of packed red blood cell. Plan for another 1 unit of packed red blood cell transfusion Monitor hemoglobin closely after transfusion. Diet: Clear Liquid Diet CODE: Full Code. VTE Prophylaxis: Dispo: Not ready for discharge Handoff Completed: Yes Disposition Perspective - Medically ready for discharge: No Anticipated ready for discharge timeframe?: 4 days Patient has developed a complication. The patient is presently stable but is at risk for decompensation which could result in significant morbidity. Admitted on 12/01/2024: with: elective urologic procedure. Has CAD and CABG planned. We were consulted for hypotension due to sepsis and blood loss anemia, Stable today Estimated Date of Discharge: 12/06/2024 Subjective: Feels lightheaded. Blood pressure soft. at bedside. Scheduled Meds: aspirin 81 mg Oral Daily atorvastatin 80 mg Oral Daily cefTRIAXone (ROCEPHIN) IVPB (Orderable) 2 g Intravenous Daily docusate sodium 100 mg Oral BID metoprolol succinate 25 mg Oral Daily nicotine 1 Patch Transdermal Daily And nicotine 1 Patch Transdermal Nightly pantoprazole 40 mg Oral Daily AC tolterodine 4 mg Oral Daily sodium chloride 0.9% Objective: BP 102/61 (BP Location: Left arm, Patient Position: Semi Fowlers) Pulse 77 Temp 98.1 ??F (36.7 ??C) (Oral) Resp 18 Ht 5' 8 (1.727 m) Wt 243 lb (110.2 kg) SpO2 97% BMI 36.95 kg/m?? I/O last 3 completed shifts: In: 1051.6 [I.V.:1001.6; IV Piggyback:50] Out: 3795 [Urine:3650; Drains:145] Weight: 243 lb (110.2 kg) Patient not in acute distress. Constitutional: Alert and oriented to person, place, and time. Neck: supple, no JVD. Lungs: CTA. Heart: regular S1, S2 are normal. No murmur, no friction rub. Abd: Soft, midline incision clean, DAMIEN drain left lower quadrant with bloody output MSK: no weakness Ext: No edema Skin: No rash, no jaundice, no ecchymosis Neuro: No focal deficits. Labs: Laboratory data and diagnostic testing reviewed 12/04/24. CBC: Lab Results Component Value Date WBC 6.5 12/04/2024 RBC 2.42 (L) 12/04/2024 HGB 7.3 (L) 12/04/2024 HCT 21.5 (L) 12/04/2024 MCV 88.8 12/04/2024 MCHC 34.0 12/04/2024 PLT 145 (L) 12/04/2024 BMP: Lab Results Component Value Date NA 140 12/04/2024 K 3.9 12/04/2024 CL 109 (H) 12/04/2024 CO2 23 12/04/2024 BUN 9 12/04/2024 CREATININE 1.07 12/04/2024 CALCIUM 8.3 (L) 12/04/2024 GLU 93 12/04/2024 Coagulation: No results found for: PT , INR , APTT Accucheck Results: Radiology results: No results found. Fili Thrasher MD 12/04/2024 9:08 AM Part of this note was dictated using voice recognition technology and may include unintended spelling errors. * Peace Rea APRN - 12/04/2024 7:25 AM EDT Images from the original note were not included. [facility] Urology Urology Progress Note Hospital Day: 4 No chief complaint on file. Subjective: Patient laying in bed this AM, anxious, reports he feels light headed. at bedside, tearful/stressed about patients lab results this AM. Hgb 7.3 this AM, Creat 1.07. DAMIEN with small amount of sanguinous output noted on exam. 95 ml output documented from DAMIEN this AM. Bradford in place, 1400ml UOP overnight, currently draining clear, yellow urine. Passing gas, no BM yet. Denies n/v, on clears, reports he doesn't have an appetite. Afebrile, VSS. Objective: Vitals: Patient Vitals for the past 12 hrs: BP Temp Temp src Pulse Resp SpO2 12/04/24 0519 -- -- -- 70 -- -- 12/04/24 0445 104/64 97.8 ??F (36.6 ??C) Oral 89 -- 98 % 12/04/24 0330 -- -- -- 73 -- -- 12/04/24 0126 -- -- -- 83 -- -- 12/03/24 2329 -- -- -- 88 -- -- 12/03/24 2236 108/61 -- -- -- -- -- 12/03/242058 118/54 98.3 ??F (36.8 ??C) Oral 88 17 98 % I/O: Intake/Output Summary (Last 24 hours) at 12/04/2024 07 Last data filed at 12/04/2024 0642 Gross per 24 hour Intake 1051.55 ml Output 3795 ml Net -2743.45 ml Labs: Lab Results Component Value Date WBC 6.5 12/04/2024 HGB 7.3 (L) 12/04/2024 HCT 21.5 (L) 12/04/2024 MCV 88.8 12/04/2024 PLT 145 (L) 12/04/2024 Lab Results Component Value Date CREATININE 1.07 12/04/2024 BUN 9 12/04/2024 NA 140 12/04/2024 K 3.9 12/04/2024 CL 109 (H) 12/04/2024 CO2 23 12/04/2024 ROS: Review of Systems Constitutional: Negative for chills and fever. Respiratory: Negative for shortness of breath. Cardiovascular: Negative for chest pain. Gastrointestinal: Positive for abdominal pain. Negative for abdominal distention, nausea and vomiting. Genitourinary: Negative for hematuria. Neurological: Positive for dizziness and light-headedness. Psychiatric/Behavioral: Positive for agitation. Negative for behavioral problems and confusion. Exam: Physical Exam Constitutional: Appearance: Normal appearance. Comments: anxious HENT: Head: Normocephalic. Nose: Nose normal. Eyes: Pupils: Pupils are equal, round, and reactive to light. Pulmonary: Effort: Pulmonary effort is normal. Abdominal: General: There is no distension. Palpations: Abdomen is soft. Tenderness: There is abdominal tenderness (mild). Comments: DAMIEN with small amount of sanguinous output Incisions c/d/I Genitourinary: Comments: Bradford in place-urine clear, yellow Musculoskeletal: General: Normal range of motion. Skin: General: Skin is warm and dry. Neurological: Mental Status: He is alert. Mental status is at baseline. Psychiatric: Mood and Affect: Mood normal. Assessment: 49 y.o. 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 Haney on 12/01. Plan: Reviewed patient with Dr. Correa this AM -Will take DAMIEN off suction -Will order 1 unit PRBCs -Recheck H&H at noon -Continue to turn/reposition patient to offload pressure to coccyx -ADAT -Continue abx, consider transitioning to PO for pneumonia -Cardiology and hospitalist team following Signed: 12/04/2024 Peace Rea APRN Cosigned by Sadi Haney MD at 12/05/2024 1:32 PM EDT Associated attestation - Sadi Haney MD - 12/05/2024 1:32 PM EDT Late attestation Patient seen and examined @ ~ 4 pm on 12/04 Resting in bed, comfortable, minimal pain Tolerating regular diet Productive cough AFVSS Abd soft, ATTP, ND DAMIEN ss - noted increased output overnight. Taken off suction Urine clear Given 1 unit prbc for hb of 7.3 with appropriate response, most recent hb was 8.2 Stopped bASA after d/w fire safety inspector Plan: Hold bASA DAMIEN off suction Check H&H at 1900 - at pt and his 's request No plan for surgical intervention at this time. Will transfuse as needed if hb trends down again No need for CT since there was no active extravasation found on 12/02 CT and need to limit contrast since he has solitary kidney. Ambulate, ADAT Reassured pt and his that there is no danger to his life and his vital signs remaining stable is highly reassuring. Would expect his H&H to improve gradually. * Peace Rea APRN - 12/03/2024 8:59 PM EDT Images from the original note were not included. [facility] Urology Urology Progress Note Hospital Day: 3 No chief complaint on file. Subjective: The patient is post op day 2 s/p Cystoscopy and transurethral incision of left ureteral orifice, Robot-assisted laparoscopic left radical nephroureterectomy performed by Dr. Haney. Patient received 2 units of RBC last night. Cardiology following, must remain on ASA. Patient is passing gas, no BM. Bradford in place and draining clear, yellow urine. DAMIEN present, small amount of sanguinous output noted. Patient requesting stoolsoftener. Contacted by RN earlier today that patient having pain over his tailbone. Patient reports soreness over tailbone when he is laying on his back, pain improved when he is turned to his side/pressure taken off coccyx. I pressed on coccyx area, no tenderness on exam, no evidence of skin breakdown. Afebrile, VSS. Objective: Vitals: Patient Vitals for the past 12 hrs: BP Temp Temp src Pulse Resp SpO2 12/03/24 1810 -- -- -- -- -- 94 % 12/03/24 1708 -- -- -- 98 -- -- 12/03/24 1659 138/73 97.8 ??F (36.6 ??C) Oral 97 -- 97 % 12/03/24 1513 144/82 -- -- 110 -- 96 % 12/03/24 1504 -- -- -- (!) 121 -- -- 12/03/24 1119 124/71 98.1 ??F (36.7 ??C) Oral 92 -- 97 % 12/03/24 1114 -- -- -- 84 -- -- 12/03/24 1005 119/61 98 ??F (36.7 ??C) Oral 86 18 95 % I/O: Intake/Output Summary (Last 24 hours) at 12/03/20242058 Last data filed at 12/03/2024 1714 Gross per 24 hour Intake 3089.83 ml Output 4145 ml Net -1055.17 ml Labs: Lab Results Component Value Date WBC 9.5 12/03/2024 HGB 7.9 (L) 12/03/2024 HCT 23.7 (L) 12/03/2024 MCV 90.3 12/03/2024 PLT 169 12/03/2024 Lab Results Component Value Date CREATININE 1.25 12/03/2024 BUN 15 12/03/2024 NA 142 12/03/2024 K 4.2 12/03/2024 CL 111 (H) 12/03/2024 CO2 21 (L) 12/03/2024 ROS: Review of Systems Constitutional: Negative for chills and fever. Respiratory: Positive for cough. Negative for shortness of breath. Cardiovascular: Negative for chest pain. Gastrointestinal: Positive for abdominal pain (improved). Negative for abdominal distention, nauseaand vomiting. Genitourinary: Positive for hematuria. Skin: Negative for color change, pallor and rash. Neurological: Negative for light-headedness. Psychiatric/Behavioral: Negative for agitation, behavioral problems and confusion. Exam: Physical Exam Constitutional: Appearance: Normal appearance. HENT: Head: Normocephalic. Nose: Nose normal. Eyes: Pupils: Pupils are equal, round, and reactive to light. Pulmonary: Effort: Pulmonary effort is normal. Abdominal: General: There is no distension. Palpations: Abdomen is soft. Tenderness: There is abdominal tenderness (mild). Comments: Incisions c/d/I DAMIEN drain present-small amount of sanguinous output noted Genitourinary: Comments: Bradford in place-urine clear, yellow Musculoskeletal: General: Normal range of motion. Skin: General: Skin is warm and dry. Neurological: Mental Status: He is alert. Mental status is at baseline. Psychiatric: Mood and Affect: Mood normal. Assessment: 49 y.o. 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 Haney on 12/01. Plan: -Continue to turn/reposition patient to offload pressure to coccyx -ADAT -Check labs in AM. No evidence of active bleeding, can d/c q 4h H&H checks -Encourage patient to ambulate -Continue abx, consider transitioning to PO for pneumonia -Cardiology and hospitalist team following Signed: 12/03/2024 Peace Rea APRN Cosigned by Sadi Haney MD at 12/05/2024 1:44 PM EDT * Vidya Rodgers RN - 12/03/2024 6:49 PM EDT Patient and spouse asking for repeat CT ABD tomorrow. Sticky note left for MD. * Vidya Rodgers RN - 12/03/2024 5:43 PM EDT Patient and family request to hold metoprolol dose today, stating worried vitals will drop low and request io wait to see how he is tomorrow. Patient also reports buttock pain 20/ post surgery. No open area, skin blanching. Hospitalist andUrology notified. DAMIEN dressing old drainage, reinforced dressing. Per Urology note ADAT. Patient declines at this time Im not hungry at all . Will monitor. * Bear Samuel MD - 12/03/2024 8:56 AM EDT Heart & Vascular Progress Note PATIENT: Alex Hoffman 2 Cardiology following for: hypotension Subjective: No new complaints noted Objective: Vitals: 12/03/24 0835 BP: 134/67 Pulse: 104 Resp: 16 Temp: 98.1 ??F (36.7 ??C) SpO2: 96% I/O 24 hours: Intake/Output Summary (Last 24 hours) at 12/03/2024 0857 Last data filed at 12/03/2024 0834 Gross per 24 hour Intake 3532.62 ml Output 4075 ml Net -542.38 ml Physical Exam: Pt in no distress. Neck supple, 0 JVD Heart - S1, S2 , 0M/R/G. Lungs - clear Chest wall - nontender Abd - soft, NT, +BS Extremities- 0 edema, +2 DP/PT/Radial pulses Neuro - Alert and oriented Mood and affect appropriate Medication: aspirin 81 mg Oral Daily atorvastatin 80 mg Oral Daily cefTRIAXone (ROCEPHIN) IVPB (Orderable) 2 g Intravenous Daily nicotine 1 Patch Transdermal Daily And nicotine 1 Patch Transdermal Nightly pantoprazole 40 mg Oral Daily AC tolterodine 4 mg Oral Daily sodium chloride 0.9 % 100 mL/hr at 12/03/24 0834 sodium chloride 0.9% 50 mL (12/02/24 2330) Labs & Studies: All pertinent labs & radiologic studies for the past 24 hours have been reviewed Telemetry: ST 100's Assessment: CAD/ ASHD -EKG SR no acute ischemia appreciated -Trops -ASA/ Statin ferry captain -Denies chest pain/ diaphoresis/ nausea Hypotension -Improving -BP improving Renal tumor -SP LEFT DAVINCI ROBOTIC NEPHROURETERECTOMY, CYSTOSCOPY, TRANSURETHRAL RESECTION OF THE BLADDER TUMOR -Per primary -Surgery consult Pneumonia -New diagnosis -Per primary -post op anemia -SP 2 units prbc monitor -would rec continuing ASA for now with CAD Plan: Denies chest pain/ discomfort Hypotension with sepsis/ dehydration Will restart Toprol today, monitor BP Further input from Dr Lizzie Hinkle, OVEN DAUBER, Heart and Vascular 12/03/2024 Disposition Perspective - Medically Ready for Discharge: No Anticipated Discharge: 1-2 days Discharge when / if: tbd The patient was seen in collaboration with the JOSSIE. The patient seen and examined independently by myself. I have taken a history and performed a physical examination of this patient. I reviewed labs, vital signs and other pertinent testing. I personally reviewed past medical history, social and family history. The substantial portion of the visit was performed by myself and I made the medical decision making. I reviewed most recent hospitalist note, CBC, BMP, and telemetry strips. 1. Coronary disease. No evidence of ischemia. Stable continue statin and aspirin. Restart metoprolol. 2. Hypotension improved secondary likely to sepsis but was also giving a transfusion for postoperative anemia. 3. Pneumonia. Per primary. 4. Renal tumor-SP LEFT DAVINCI ROBOTIC NEPHROURETERECTOMY, CYSTOSCOPY, TRANSURETHRAL RESECTION OF THE BLADDER TUMOR. Per surgery Follow closely denies any restarting metoprolol today. Bear Samuel MD, [facility] 12/03/2024 5:05 PM * Meng Chen MD - 12/03/2024 8:56 AM EDTAssociated Problem(s): Ureteral mass - 12/01 - Robot-assisted laparoscopic left radical nephroureterectomy. Plan per urology, follow path - await urology plans for today * Meng Chen MD - 12/03/2024 8:56 AM EDTAssociated Problem(s): S/p nephrectomy - 12/01 - Robot-assisted laparoscopic left radical nephroureterectomy. Plan per urology, follow path - await urology plans for today * Meng Chen MD - 12/03/2024 8:56 AM EDTAssociated Problem(s): Malignant neoplasm of left ureter (HCC) - 12/01 - Robot-assisted laparoscopic left radical nephroureterectomy. Plan per urology, follow path - await urology plans for today * Meng Chen MD - 12/03/2024 8:56 AM EDTAssociated Problem(s): Coronary artery disease involving [place] coronary artery of [place] heart without angina pectoris - CABG planned at some point diffuse severe disease, troponin elevation likely due to demand ischemia, - cards following, cont asa, statin * Meng Chen MD - 12/03/2024 8:56 AM EDTAssociated Problem(s): Sepsis without acute organ dysfunction (HCC) - likely due to infection and blood loss anemia, continue ceftriaxone, cultures negative thus far. Sepsis syndrome improved * Meng Chen MD - 12/03/2024 8:56 AM EDTAssociated Problem(s): Community acquired pneumonia of right middle lobe of lung - likely due to infection and blood loss anemia, continue ceftriaxone, cultures negative thus far. Sepsis syndrome improved * Meng Chen MD - 12/03/2024 8:56 AM EDTAssociated Problem(s): Hypotension - likely due to infection and blood loss anemia, continue ceftriaxone, cultures negative thus far. Sepsis syndrome improved * Meng Chen MD - 12/03/2024 8:56 AM EDTAssociated Problem(s): Acute blood loss as cause of postoperative anemia - Hgb trended down yesterday, s/p [address] shows possible small hemorrhage, need to continue asadue to CAD unless has massive bleed * Meng Chen MD - 12/03/2024 8:56 AM EDTAssociated Problem(s): Elevated troponin - CABG planned at some point diffuse severe disease, troponin elevation likely due to demand ischemia, - cards following, cont asa, statin * Meng Chen MD - 12/03/2024 8:42 AM EDT Images from the original note were not included. Active Hospital Problems Diagnosis *Ureteral mass Sepsis without acute organ dysfunction (HCC) Community acquired pneumonia of right middle lobe of lung Hypotension S/p nephrectomy Acute blood loss as cause of postoperative anemia Elevated troponin Malignant neoplasm of left ureter (HCC) Coronary artery disease involving [place] coronary artery of [place] heart without angina pectoris Assessment & Plan 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 Plan per urology, follow path - await urology plans for today Elevated troponin Coronary artery disease involving [place] coronary artery of [place] heart without angina pectoris - CABG planned at some point diffuse severe disease, troponin elevation likely due to demand ischemia, - cards following, cont asa, statin Sepsis without acute organ dysfunction (HCC) Community acquired pneumonia of right middle lobe of lung Hypotension - likely due to infection and blood loss anemia, continue ceftriaxone, cultures negative thus far. Sepsis syndrome improved Acute blood loss as cause of postoperative anemia - Hgb trended down yesterday, s/p [address] shows possible small hemorrhage, need to continue asadue to CAD unless has massive bleed Dispo Handoff Completed: Yes Disposition Perspective - Medically ready for discharge: No Anticipated ready for discharge timeframe?: 4 days Patient has developed a complication. The patient is presently stable but is at risk for decompensation which could result in significant morbidity. Admitted on 12/01/2024: with: elective urologic procedure. Has CAD and CABG planned. We were consulted for hypotension due to sepsis and blood loss anemia, Stable today Estimated Date of Discharge: 12/03/2024 Code status Full Code Subjective: No chief complaint on file. Has mild cough, more sore' today from the surgery, denies dizziness Objective: BP 124/52 Pulse 94 Temp 98.5 ??F (36.9 ??C) (Oral) Resp 16 Ht 5' 8 (1.727 m) Wt 243 lb (110.2 kg) SpO2 95% BMI 36.95 kg/m?? I/O last 3 completed shifts: In: 3604.5 [P.O.:240; I.V.:2415.6; Blood:600; IV Piggyback:348.9] Out: 4135 [Urine:3950; Drains:185] Weight: 243 lb (110.2 kg) Constitutional: Alert and oriented to person, place, and time. No distress. Cardiovascular: Normal rate and regular rhythm. Exam reveals no friction rub. No murmur heard. Pulmonary/Chest: mild right crackles. Abdominal: Soft. Bowel sounds are normal. No distension. There is no tenderness. There is no rebound and no guarding. Musculoskeletal: No edema. Neurological: Grossly normal. Skin: Skin is warm and dry. No erythema. Results: Pertinent labs and radiographic tests from 12/03/24 have been reviewed Meng Chen MD 12/03/2024 8:42 AM * Brody Martin PA - 12/03/2024 8:15 AM EDT Images from the original note were not included. [facility] Urology Urology Progress Note Hospital Day: 3 No chief complaint on file. Subjective: The patient is post op day 1 s/p Cystoscopy and transurethral incision of left ureteral orifice, Robot-assisted laparoscopic left radical nephroureterectomy performed by Dr. Haney. Patient received 2 units of RBC last night. The patient is sitting on the side of bed at the time of examination. The patient states that he isfeeling a little better this morning. He states that he is tolerating clear liquid diet and has been ingesting fluids this morning. He was initially nauseous when he woke up but states he is not at this time. He denies any pain or discomfort at this time. He is ambulating to the bathroom but statesthat he has been getting tired quickly when ambulating. Patient afebrile, VSS. Most recent troponin 37, Hgb 8.0, Hct 24.4. Creatinine WNL. Objective: Vitals: Patient Vitals for the past 12 hrs: BP Temp Temp src Pulse Resp SpO2 12/03/24 0527 -- -- -- 94 -- -- 12/03/24 0357 124/52 98.5 ??F (36.9 ??C) Oral 97 16 95 % 12/03/24 0332 -- -- -- 94 -- -- 12/03/24 0130 113/42 98.3 ??F (36.8 ??C) Oral 104 16 96 % 12/03/24 0115 130/61 98.3 ??F (36.8 ??C) Oral 104 16 95 % 12/03/24 0100 -- -- -- 101 -- -- 12/03/24 0043 130/61 98.3 ??F (36.8 ??C) Oral 104 16 96 % 12/02/24 2307 -- -- -- 101 -- -- 12/02/24 2215 135/75 98.2 ??F (36.8 ??C) Oral 113 (!) 22 97 % 12/02/242199 112/64 98.9 ??F (37.2 ??C) -- 115 20 95 % 12/02/242107 112/64 98.9 ??F (37.2 ??C) Oral 115 20 -- I/O: Intake/Output Summary (Last 24 hours) at 12/03/2024 0815 Last data filed at 12/03/2024 0624 Gross per 24 hour Intake 3315.85 ml Output 4075 ml Net -759.15 ml Labs: Lab Results Component Value Date WBC 9.5 12/03/2024 HGB 8.0 (L) 12/03/2024 HCT 24.4 (L) 12/03/2024 MCV 90.3 12/03/2024 PLT 169 12/03/2024 Lab Results Component Value Date CREATININE 1.25 12/03/2024 BUN 15 12/03/2024 NA 142 12/03/2024 K 4.2 12/03/2024 CL 111 (H) 12/03/2024 CO2 21 (L) 12/03/2024 ROS: Review of Systems Constitutional: Negative for chills, fatigue and fever. HENT: Negative for sinus pressure, sinus pain, sneezing and sore throat. Eyes: Negative for discharge and redness. Respiratory: Negative for cough, shortness of breath and wheezing. Gastrointestinal: Negative for diarrhea, nausea and vomiting. Genitourinary: Negative for dysuria, flank pain, frequency, hematuria and urgency. Neurological: Negative for dizziness and weakness. Psychiatric/Behavioral: Negative for confusion. The patient is not nervous/anxious. Exam: Physical Exam Constitutional: Appearance: Normal appearance. HENT: Head: Normocephalic. Nose: Nose normal. Mouth/Throat: Mouth: Mucous membranes are moist. Eyes: Conjunctiva/sclera: Conjunctivae normal. Abdominal: General: There is no distension. Tenderness: There is no abdominal tenderness. Comments: DAMIEN dressing has not been changed since previous examination; still with dried blood on bandage DAMIEN output bloody with a few clots in bulb. 40 mL output this morning Genitourinary: Comments: bradford catheter securely in place and draining pink tinged urine; 2200 mL emptied from catheter this morning Skin: General: Skin is warm and dry. Neurological: General: No focal deficit present. Mental Status: He is alert and oriented to person, place, and time. Psychiatric: Mood and Affect: Mood normal. Behavior: Behavior normal. Assessment: 49 y.o. male who is post op day 1 s/p Cystoscopy and transurethral incision of left ureteral orifice, Robot-assisted laparoscopic left radical nephroureterectomy performed by Dr. Haney. Plan: -encouraged patient to continue ambulating, out of bed as tolerated -continue clear liquid diet at this time until return of bowel function; patient tolerating -encouraged patient to continue using incentive spirometer -monitor labs, H&H; transfuse as necessary Signed: 12/03/2024 AMEENA DUNN Cosigned by Sadi Haney MD at 12/03/2024 2:57 PM EDT Associated attestation - Sadi Haney MD - 12/03/2024 2:57 PM EDT Walked in the hallways Passed flatus Feeling sore in abdomen but better than yesterday AFVSS Good uop, urine clear DAMIEN scant, ss Abd soft, attp, ND Incisions c/d/I BMP ok, cr back down to normal H&H stable Cbc normal Plan: ADAT Check labs in AM. No evidence of active bleeding, can d/c q 4h H&H checks Ambulate Continue abx, consider transitioning to PO for pneumonia * Brody Martin PA - 12/02/2024 9:38 PM EDT Images from the original note were not included. [facility] Urology Urology Progress Note Hospital Day: 2 No chief complaint on file. Subjective: The patient is sitting up in bed at the time of examination. The patient states that he had an incident last night where he was getting out of bed and accidentally pulled on his DAMIEN drain. He had a lot of bleeding at DAMIEN site when this happened. He states he is not in any pain at this time. He has been getting out of bed. He is about to receive blood. No questions or concerns at this time. Patient afebrile, VSS. Repeat lactic acid WNL. Most recent Hgb 7.5, Hct 22.9. CT Abdomen pelvis shows Small to moderate amount of retroperitoneal fluid/hemorrhage. Objective: Vitals: Patient Vitals for the past 12 hrs: BP Temp Temp src Pulse Resp SpO2 12/02/24 2108 112/64 98.9 ??F (37.2 ??C) Oral 115 20 -- 12/02/242002 132/70 98.6 ??F (37 ??C) Oral (!) 133 20 95 % 12/02/24 1911 126/72 -- -- (!) 127 18 97 % 12/02/24 1847 111/60 -- -- 115 18 97 % 12/02/24 1727 -- 98.2 ??F (36.8 ??C) -- -- -- -- 12/02/24 1723 -- -- -- (!) 145 -- -- 12/02/24 1631 112/62 98.2 ??F (36.8 ??C) Oral 120 -- 97 % 12/02/24 1616 -- 98.1 ??F (36.7 ??C) Oral -- -- -- 12/02/24 1542 110/54 -- -- 120 -- 98 % 12/02/24 1517 -- -- -- 120 -- -- 12/02/24 1512 -- 98 ??F (36.7 ??C) Oral (!) 147 -- -- 12/02/24 1506 108/53 -- -- 119 -- 98 % 12/02/24 1449 118/58 99.3 ??F (37.4 ??C) Oral 120 -- -- 12/02/24 1300 118/64 -- -- 104 18 93 % 12/02/24 1230 119/65 98 ??F (36.7 ??C) Oral 110 18 93 % 12/02/24 1200 115/52 -- -- -- -- -- 12/02/24 1152 118/53 98 ??F (36.7 ??C) Oral 103 18 92 % 12/02/24 1136 110/53 98.1 ??F (36.7 ??C) Oral 108 18 92 % 12/02/24 1106 (!) 102/39 98 ??F (36.7 ??C) Oral 105 18 93 % 12/02/24 1036 102/44 98.1 ??F (36.7 ??C) Oral 100 18 91 % 12/02/24 1006 109/45 98.2 ??F (36.8 ??C) Oral 105 18 90 % I/O: Intake/Output Summary (Last 24 hours) at 12/02/2024 2138 Last data filed at 12/02/2024 1856 Gross per 24 hour Intake 4865.01 ml Output 1655 ml Net 3210.01 ml Labs: Lab Results Component Value Date WBC 21.8 (H) 12/02/2024 HGB 7.5 (L) 12/02/2024 HCT 22.9 (L) 12/02/2024 MCV 91.4 12/02/2024 PLT 389 (H) 12/02/2024 Lab Results Component Value Date CREATININE 1.61 (H) 12/02/2024 BUN 21 (H) 12/02/2024 NA 136 12/02/2024 K 4.8 12/02/2024 CL 103 12/02/2024 CO2 17 (L) 12/02/2024 ROS: Review of Systems Constitutional: Negative for chills, fatigue and fever. HENT: Negative for sinus pressure, sinus pain, sneezing and sore throat. Eyes: Negative for discharge and redness. Respiratory: Negative for cough, shortness of breath and wheezing. Gastrointestinal: Negative for diarrhea, nausea and vomiting. Genitourinary: Negative for dysuria, flank pain, frequency, hematuria and urgency. Neurological: Negative for dizziness and weakness. Psychiatric/Behavioral: Negative for confusion. The patient is not nervous/anxious. Exam: Physical Exam Constitutional: Appearance: Normal appearance. HENT: Head: Normocephalic. Nose: Nose normal. Mouth/Throat: Mouth: Mucous membranes are moist. Eyes: Conjunctiva/sclera: Conjunctivae normal. Pulmonary: Effort: Pulmonary effort is normal. Abdominal: Comments: DAMIEN bandage appears to be saturated with old blood small clots noted in bulb at this time Genitourinary: Comments: bradford catheter securely in place at this time and draining pink tinged urine; 900 mL emptied at time of exam Skin: General: Skin is warm and dry. Neurological: General: No focal deficit present. Mental Status: He is alert and oriented to person, place, and time. Psychiatric: Mood and Affect: Mood normal. Behavior: Behavior normal. Assessment: 49 y.o. male with low hemoglobin and hematocrit following Cystoscopy and transurethral incision of left ureteral orifice, Robot-assisted laparoscopic left radical nephroureterectomy. CT scan without any signs of active bleeding, patient about to receive RBC transfusion. Plan: -patient to receive RBC transfusion; continue to monitor H&H -CT scan not concerning for active bleed at this time -will continue to monitor Signed: 12/02/2024 AMEENA DUNN Cosigned by Sadi Haney MD at 12/05/2024 1:44 PM EDT * Ana Reeder RN - 12/02/2024 8:59 PM EDT Very anxious, hr elevated, states panic attack. Attempting breathing exercises and relaxation without help. Message sent to art conservator and 1x dose valium ordered. Pt noted relief even as I was administering medication. Waiting on CT ab results and type and screen. WCTM * Vidya Rodgers RN - 12/02/2024 7:50 PM EDT Patient reports one episode of chest pain, states it was short and felt like I had to burp . Cardiology and Hospitalist notified. New orders placed. Also notified of H/H. Re-assessment patient denies chest pain. Charge and oncoming RN updated. * Meng Chen MD - 12/02/2024 4:37 PM EDTAssociated Problem(s): Acute blood loss as cause of postoperative anemia - Hgb trending down, check again. No report of heavy blood loss in OR * Vidya Rodgers RN - 12/02/2024 3:20 PM EDT patient HR went up to 140s, feel queasy re-assessment HR 120. did have temp 99.1/shaky at this time. notified. Will monitor. * Meng Chen MD - 12/02/2024 12:14 PM EDTAssociated Problem(s): Ureteral mass - 12/01 - Robot-assisted laparoscopic left radical nephroureterectomy. Plan per urology, follow path * Meng Chen MD - 12/02/2024 12:14 PM EDTAssociated Problem(s): S/p nephrectomy - 12/01 - Robot-assisted laparoscopic left radical nephroureterectomy. Plan per urology, follow path * Meng Chen MD - 12/02/2024 12:14 PM EDTAssociated Problem(s): Malignant neoplasm of left ureter (HCC) - 12/01 - Robot-assisted laparoscopic left radical nephroureterectomy. Plan per urology, follow path * Meng Chen MD - 12/02/2024 12:14 PM EDTAssociated Problem(s): Coronary artery disease involving [place] coronary artery of [place] heart without angina pectoris - diffuse severe disease, troponin elevation likely due to demand ischemia, consult cards. Cont statin, asa * Meng Chen MD - 12/02/2024 12:14 PM EDTAssociated Problem(s): Sepsis without acute organ dysfunction (HCC) - noted on imaging, SBP was in the 60's and now improved 118/53. Follow cultures. Lactate was elevated, trend. Change to high dose ceftriaxone * Meng Chen MD - 12/02/2024 12:14 PM EDTAssociated Problem(s): Community acquired pneumonia of right middle lobe of lung - noted on imaging, SBP was in the 60's and now improved 118/53. Follow cultures. Lactate was elevated, trend. Change to high dose ceftriaxone * Meng Chen MD - 12/02/2024 12:14 PM EDTAssociated Problem(s): Hypotension - noted on imaging, SBP was in the 60's and now improved 118/53. Follow cultures. Lactate was elevated, trend. Change to high dose ceftriaxone * Vidya Rodgers RN - 12/02/2024 11:51 AM EDT Hospitalist notified chest xr results in epic. * Peace Rea APRN - 12/02/2024 7:21 AM EDT Images from the original note were not included. [facility] Urology Urology Progress Note Hospital Day: 2 No chief complaint on file. Subjective: POD 1 Cystoscopy and transurethral incision of left ureteral orifice; Robot- assisted laparoscopic left radical nephroureterectomy. Patient hypotensive through the night, required 1L bolus X2. He is resting in bed this AM, at the bedside. He reports he felt lightheaded and dizzy through the night but that has improved. He reports 7/10 left sided abdominal pain. Bradford draining without issue, urine in tubing clear pink tinged. 600 ml UOP documented this AM. Patient denies passing gas. DAMIEN with sanguinous output, 65 ml output documented overnight. Patient reports SOB, wheezing this AM. Abd mildly distended, +tenderness on exam. Afebrile, VSS, most recent BP 98/48. DAMIEN creat 1.15 Objective: Vitals: Patient Vitals for the past 12 hrs: BP Temp Temp src Pulse Resp SpO2 Height Weight 12/02/24 0608 98/48 97.7 ??F (36.5 ??C) Oral 91 18 96 % -- -- 12/02/24 0527 (!) 81/38 -- -- -- 18 -- -- -- 12/02/24 0415 (!) 64/37 97.6 ??F (36.4 ??C) Oral 93 18 94 % -- -- 12/02/24 0320 99/55 -- -- 99 18 95 % -- -- 12/02/24 0252 (!) 79/68 97.8 ??F (36.6 ??C) Oral 120 20 98 % -- -- 12/02/24 0002 105/53 97.7 ??F (36.5 ??C) Oral 105 16 95 % -- -- 12/01/24 2006 119/81 97.5 ??F (36.4 ??C) Oral 110 17 97 % 5' 8 (1.727 m) 243 lb (110.2 kg) I/O: Intake/Output Summary (Last 24 hours) at 12/02/2024 0721 Last data filed at 12/02/2024 0642 Gross per 24 hour Intake 6302.93 ml Output 1280 ml Net 5022.93 ml Labs: Lab Results Component Value Date WBC 21.8 (H) 12/02/2024 HGB 10.2 (L) 12/02/2024 HCT 30.8 (L) 12/02/2024 MCV 91.4 12/02/2024 PLT 389 (H) 12/02/2024 Lab Results Component Value Date CREATININE 1.61 (H) 12/02/2024 BUN 21 (H) 12/02/2024 NA 136 12/02/2024 K 4.8 12/02/2024 CL 103 12/02/2024 CO2 17 (L) 12/02/2024 ROS: Review of Systems Constitutional: Negative for chills and fever. Respiratory: Positive for shortness of breath and wheezing. Cardiovascular: Negative for chest pain. Gastrointestinal: Positive for abdominal pain. Negative for abdominal distention, nausea and vomiting. Genitourinary: Positive for hematuria. Neurological: Negative for light-headedness. Psychiatric/Behavioral: Negative for agitation, behavioral problems and confusion. Exam: Physical Exam Constitutional: Appearance: Normal appearance. HENT: Head: Normocephalic. Nose: Nose normal. Eyes: Pupils: Pupils are equal, round, and reactive to light. Pulmonary: Effort: Pulmonary effort is normal. Abdominal: General: There is distension (mild). Palpations: Abdomen is soft. Tenderness: There is abdominal tenderness. Comments: Incisions c/d/I DAMIEN present with small amount of sanguinous output noted Genitourinary: Comments: Bradford in place and draining clear, pink tinged urine Musculoskeletal: General: Normal range of motion. Skin: General: Skin is warm and dry. Neurological: Mental Status: He is alert. Mental status is at baseline. Psychiatric: Mood and Affect: Mood normal. Assessment: 49 y.o. 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 Haney on 12/01. Plan: -Will recheck H&H at noon -Stop Lovenox -continue CLD -CXR ordered -T&S ordered -Hospitalist team following- EKG and troponins pending Signed: 12/02/2024 Peace Rea APRN Cosigned by Sadi Haney MD at 12/02/2024 12:01 PM EDT Associated attestation - Sadi Haney MD - 12/02/2024 12:01 PM EDT Resting comfortably in bed. C/o pain in the right side of the abdomen. Does not report any pain on the left side BP low but stable. AF Abd soft, ATTP, ND. Incisions c/d/I Urine clear DAMIEN scant, ss CXR - R middle lobe pneumonia A: s/p RALNU POD#1, pneumonia. Anemia more likely dilutional than ABLA (5 litres positive on fluids) Plan: OOBTC, ambulate with assistance IS Monitor labs Cld until robf documented in this encounter H&P Notes * Varghese Rogers APRN - 12/01/2024 8:50 AM EDT [facility] History and Physical Name: Alex Hoffman ADDRESS: [address] [place] [address] [place] [address] : 1975 AGE: 49 y.o. ASSESSMENT: Ureteral mass [N28.89] PLAN: Procedure(s): LEFT DAVINCI ROBOTIC NEPHROURETERECTOMY, CYSTOSCOPY, TRANSURETHRAL RESECTION OF THE BLADDER TUMOR per Sadi Haney MD Admitting Physician: Sadi Haney MD Date of Admit: 12/01/2024 SUBJECTIVE: Chief Complaint: Ureteral mass [N28.89] History of Present Illness: Patient is a 49 y.o. male with Ureteral mass [N28.89] who presents for surgical intervention. Past Medical History: Diagnosis Date Anxiety CAD (coronary artery disease) Cancer (HCC) GERD (gastroesophageal reflux disease) Heartburn Hyperlipidemia Hypertension Kidney mass left AR (myocardial infarction) (HCC) 09/17/2024 Motion sickness Past Surgical History: Procedure Laterality Date CARDIAC CATHETERIZATION CORONARY ANGIOPLASTY WITH STENT PLACEMENT Sep 19 2022 CYSTOSCOPY 10/27/2024 Surgeon: Patricia Ellison MD; Location: [facility] MAIN OR; Service: Urology Prior to Admission medications Medication Sig Start [...] Capsule Take 1 Capsule by mouth daily. Provider, Historical famotidine (PEPCID) [...] Medically Necessary (R52) or Acute Pain (R52). Patient not taking: Reported on 11/23/2024 10/27/24 Patricia Ellison MD lansoprazole (PREVACID) 30 mg Oral Capsule, Delayed Release(E.C.) Take 30 mg by mouth 2 times daily. Patient taking differently: Take 30 mg by mouth daily. 09/18/24 Provider, Historical losartan (COZAAR) 50 mg Oral Tablet Take 50 mg by mouth daily. 10/05/24 Provider, Historical metoprolol succinate (TOPROL-XL) 25 mg Oral Tablet Sustained Release 24 hr Take 25 mg by mouth daily. 07/11/24 Provider, Historical nicotine (NICODERM CQ) 21 mg/24 hr TD Patch [address] 1 Patch onto the skin daily. Patient not taking: Reported on 11/23/2024 09/20/24 Provider, Historical prasugreL HCl (EFFIENT) 10 mg Oral Tablet Take 10 mg by mouth daily. 09/19/24 Provider, Historical prochlorperazine (COMPAZINE) 10 mg Oral Tablet Take 10 mg by mouth every 8 hours as needed for Nausea. Patient not taking: Reported on 11/23/2024 09/26/24 Provider, Historical sulfamethoxazole-trimethoprim (BACTRIM DS) 800-160 mg Oral Tablet Take 1 Tablet by mouth every 12 hours for 10 days. Patient not taking: Reported on 11/23/2024 11/21/24 12/01/24 Bryce ShaniaDEMETRIUS quispe No Known Allergies Social History Socioeconomic History Marital status: Spouse name: None Number of children: None Years of education: None Highest education level: None Tobacco Use Smoking status: Every Day Current packs/day: 1.00 Average packs/day: 1 pack/day for 37.1 years (37.1 ttl pk-yrs) Types: Cigarettes Start date: 05/10/1989 Smokeless tobacco: Never Vaping Use Vaping status: Never Used Substance and Sexual Activity Alcohol use: Not Currently Drug use: Never Sexual activity: Yes Partners: Female Family History Problem Relation Age of Onset Asthma Mother 60 - 69 High Cholesterol Father High Blood Pressure Father Heart Disease Father Diabetes Father Cancer Father Asthma Father 80 - 99 Anesth Problems Neg Hx Active Hospital Problems Diagnosis *Ureteral mass Review of Systems: The listed systems were reviewed and reveal the following in addition to any already discussed in the HPI: Review of Systems Constitutional: Negative for chills and fever. HENT: Negative. Eyes: Light sensitive. Wears sunglasses indoors Respiratory: Positive for shortness of breath. Cardiovascular: Negative for chest pain. Gastrointestinal: Negative. Genitourinary: Positive for hematuria. Musculoskeletal: Negative. Skin: Negative. Neurological: Negative. Endo/Heme/Allergies: Negative. Psychiatric/Behavioral: Negative. OBJECTIVE: Blood pressure 129/70, pulse 69, temperature 98.1 ??F (36.7 ??C), temperature source Oral, resp. rate 16, height 5' 8 (1.727 m), weight 243 lb (110.2 kg), SpO2 97%. Physical Exam Constitutional: Appearance: Normal appearance. HENT: Head: Normocephalic. Nose: Nose normal. Mouth/Throat: Mouth: Mucous membranes are moist. Eyes: Extraocular Movements: Extraocular movements intact. Cardiovascular: Rate and Rhythm: Normal rate and regular rhythm. Pulses: Normal pulses. Pulmonary: Effort: Pulmonary effort is normal. Abdominal: Palpations: Abdomen is soft. Genitourinary: Comments: Exam deferred Musculoskeletal: General: Normal range of motion. Cervical back: Normal range of motion. Skin: General: Skin is warm. Neurological: General: No focal deficit present. Mental Status: He is alert. Psychiatric: Mood and Affect: Mood normal. Labs: Lab Results Component Value Date WBC 8.2 11/23/2024 HGB 14.5 11/23/2024 HCT 42.0 11/23/2024 MCV 86.2 11/23/2024 PLT 278 11/23/2024 Lab Results Component Value Date CREATININE 1.01 11/23/2024 BUN 13 11/23/2024 NA 137 11/23/2024 K 3.7 11/23/2024 CL 103 11/23/2024 CO2 21 (L) 11/23/2024 GFRCKDEPI 91 11/23/2024 Radiology: EK11/07/2024 Sinus rhythm Cardiac Clearance obtained Varghese Rogers APRN 12/01/2024 Cosigned by Gurwinder Greene MD at 12/08/2024 6:38 AM EDT documented in this encounter Procedure Notes * Sadi Haney MD - 12/01/2024 3:57 PM EDT PREOPERATIVE DIAGNOSIS Left ureteral TCC. POSTOPERATIVE DIAGNOSIS Same. PROCEDURE PERFORMED Cystoscopy and transurethral incision of left ureteral orifice Robot-assisted laparoscopic left radical nephroureterectomy. SURGEON Sadi Haney MD [employer] See OR record ANESTHESIS General. ESTIMATED BLOOD LOSS 100 mL. DRAINS 10 mm DAMIEN. TUBES 22 Barb[place] Bradford catheter. COMPLICATIONS None. POSTOPERATIVE CONDITION Good. SPECIMEN(S) 1. Left kidney within Gerota's fascia 2. Left ureter with bladder cuff DETAILS OF THE PROCEDURE The patient was brought back to the operating room and general anesthesia was induced. He is placed in the dorsal lithotomy position with all pressure points well padded. Cystourethroscopy is performed with 22 Fr rigid sheath and 30 and 70 degree lenses. Urethra is normal. Prostate hasenlarged coapting lateral lobes and a prominent median lobe. Both ureteral orifices are in normal anatomic position. No tumors, masses or stones are seen in the bladder. Cystoscope is replaced with aresectoscope. Using a monopolar Braulio's knife, the urothelium around the left UO is incised and dissection is deepened through the detrusor muscle fibers until perivesical fat is seen. Hemostasis isensured with pin-point cautery. Resectoscope is withdrawn. Bradford catheter is placed with return of p ink urine. He was then placed in the left flank position with all pressure points well padded. Iliac crest waspositioned over the break in the table. Axillary roll was placed underneath the upper chest wall. The arms were supported on arm board in neutral position. The beanbag was deflated. The patient was secured to the table using safety strap and silk tape. The bed is airplaned side to side and patient is noted to be secure in this position. Patient's abdomen was prepped and draped in a sterile fashion. Time-out was performed by identifying patient and procedure correctly. An incision was made in the left subcostal region, 2 cm below costal margin in mid-clavicular line. Veress needle was placed through this incision. Proper intraperitoneal placement was confirmed with the saline drop test. Pneumoperitoneum was established to a pressure of 15 cm H2O. An 8 mm robotic trocar was placed through this incision . There was no evidence ofVeress needle induced injury. Additional ports were then placed under direct vision. Three additional 8mm robotic ports were then placed in the midclavicular line. A 12 mm ophthalmic medical assistant port was placed above the umbilicus. A 5 mm port for the ophthalmic medical assistant was placed below the xiphoid process. The robot was then docked. The descending colon and splenic flexure were mobilized by incising the white line of Toldt. The gonadal vein was identified and is traced up to the level of its confluence with the left renal vein. The ureter was identified where it crossed below the gonadal vein. The ureterogonadal packet was then lifted off of the psoas muscle. The kidney was gradually lifted off of the psoas muscle. The gonadal vein was traced upto its confluence with the renal vein. The gonadal vein was then transected between hemolock clips. The kidney was gradually lifted off of the psoas muscle. The gonadal vein was then transected between hemolock clips. The renal artery was then identified and dissected out and transected with vascular staple load(s). The vein was then dissected out and stapled with a 45mm vascular staple load. The adrenal gland was identified and maximally spared. and A wedge of the adrenal gland was left attached to the kidney as a margin. I then came around the upper pole of the kidney taking care not to injure the spleen. The lateral attachments were taken down and the kidney was dissected free. The ureter was then dissected down to the bladder. The last remaining attachments of the ureter to the bladder were taken down and the ureter was dissected free. The cystotomy was closed with running3-0 V-lizbeth suture. Pneumoperitoneum was dropped to 5 and complete hemostasis was ensured. The hilum was inspected and staple lines noted to be intact. A 10 mm DAMIEN drain was placed adjacent to the bladder. The drain was sewn in place using a 2-0 silk suture. The instruments and trocars were removed under direct vision and the robot was undocked. The specimen was retrieved by extending the supraumbilical incision. Thefascia at the extraction site was closed using 0 PDS suture. Sponge and needle counts were confirmed to be correct. Skin was closed using 4-0 Monocryl at all sites. Dermabond was applied over the incisions. The patient was repositioned in supine posture and extubated uneventfully. The patient was tr ansferred to PACU in stable condition. I was present and scrubbed for the entire procedure. No complications evident. Sadi Haney MD 12/01/2024 3:58 PM documented in this encounter Consult Notes * Bear Samuel MD - 12/02/2024 11:56 AM EDTAssociated Order(s): IP CONSULT TO CARDIOLOGY Heart & Vascular Consult Note PATIENT: Alex Hoffman 1 PCP: Reyna Perez APRN Primary License Inspector: None on file I would like to thank Sadi Haney MD for requesting me to see Alex Hoffman for cardiac consultation for CAD/ Hypotension History provided by: EMR, patient HPI: Alex Hoffman is a 49 y.o. male with PMHx including ASHD, Ureteral mass. He presents to the hospital for LEFT DAVINCI ROBOTIC NEPHROURETERECTOMY, CYSTOSCOPY, TRANSURETHRAL RESECTION OF THE BLADDER TUMOR. While in pt he became hypotensive requiring a fluid bilus but bp recovered. We were consulted forCAD and hypotension. Per pt and spouse report he had a LHC at and was told that he would need a CABG. While being worked up for open heart he was found to have renal cancer and this needed to be taken care of prior to procedure. Reports no Chest pain or SOB. Pt did mention having a wheeze and itwas noted that he has Right middle lobe pneumonia. Primary notified Echocardiogram: 10/2024 EF 60-65% Stress: NA Coronary angiography: No records found but pt reports having LHC approx 3 years ago and was told hehad mild non obstructive disease CT Coronary NA EKG SR Family History- Family History Problem Relation Age of Onset Asthma Mother 60 - 69 High Cholesterol Father High Blood Pressure Father Heart Disease Father Diabetes Father Cancer Father Asthma Father 80 - 99 Anesth Problems Neg Hx Social History- Social History Tobacco Use Smoking status: Every Day Current packs/day: 1.00 Average packs/day: 1 pack/day for 37.1 years (37.1 ttl pk-yrs) Types: Cigarettes Start date: 05/10/1989 Smokeless tobacco: Never Substance Use Topics Alcohol use: Not Currently ROS: Denies: Constitutional: fever, chills, weight loss ENT: headaches, LOC, runny nose Cardiovascular: chest pain, edema, palpitations, orthopnea, dyspnea, or syncope Pulmonary: cough, sputum production, wheezing and hemoptysis. Gastrointestinal: abdominal pain, nausea, vomiting, constipation, diarrhea, hematochezia and melena. Genitourinary: change in bladder habits, burning and hematuria. Integumentary: rash Endocrine:Intolerance to heat or cold, frequent urination/thirst Hematologic/Lymphatic: abnormal bruising Allergic/Immunologic: hives Past Medical History Past Medical History: Diagnosis Date Anxiety CAD (coronary artery disease) Cancer (HCC) GERD (gastroesophageal reflux disease) Heartburn Hyperlipidemia Hypertension Kidney mass left AR (myocardial infarction) (HCC) 09/17/2024 Motion sickness [employer] Medications: Prior to Admission medications Medication Sig Start Date End Date Last Dose Authorizing Provider acetaminophen 325 mg Oral Tab Take 2 Tablets by mouth every 4 hours as needed for Fever. 12/01/24 Peace Rea APRN aspirin 81 mg Oral Tablet, Delayed Release (E.C.) Take 81 mg by mouth daily. 09/04/24 11/30/2024 at 8:00 AM Provider, Historical atorvastatin (LIPITOR) 80 mg Oral Tablet Take 80 mg by mouth daily. 09/19/24 11/30/2024 at 8:00 AM Provider, Historical Bacillus coagulans-inulin 1 billion-250 cell-mg Oral Capsule Take by mouth daily. 11/30/2024 at 8:00AM Provider, Historical cholecalciferol, vitamin D3, 25 mcg (1,000 unit) Oral Tablet Take 1,000 Units by mouth daily. 11/07/2024 Provider, Historical Coenzyme Q10 100 mg Oral Capsule Take 1 Capsule by mouth daily. 11/30/2024 at 8:00 AM Provider, Historical fUROsemide (LASIX) 40 mg Oral Tablet Take 40 mg by mouth daily. 09/22/24 11/30/2024 at 8:00 AM Provider, Historical lansoprazole (PREVACID) 30 mg Oral Capsule, Delayed Release(E.C.) Take 30 mg by mouth 2 times daily. Patient taking differently: Take 30 mg by mouth daily. 09/18/24 11/30/2024 Morning Provider, Historical losartan (COZAAR) 50 mg Oral Tablet Take 50 mg by mouth daily. 10/05/24 11/30/2024 at 8:00 AM Provider, Historical metoprolol succinate (TOPROL-XL) 25 mg Oral Tablet Sustained Release 24 hr Take 25 mg by mouth daily. 07/11/24 12/01/2024 at 6:30 AM Provider, Historical famotidine (PEPCID) 40 mg Oral Tablet Take 40 mg by mouth 2 times daily. Patient not taking: Reported on 10/27/2024 09/18/24 Not Taking Provider, Historical HYDROcodone-acetaminophen (NORCO) 5-325 mg Oral Tablet Take 1 Tablet by mouth every 6 hours as needed for Acute Pain > 3 Days Medically Necessary (R52) or Acute Pain (R52). Patient not taking: Reported on 11/23/2024 10/27/24 Not Taking Patricia Ellison MD nicotine (NICODERM CQ) 21 mg/24 hr TD Patch [address] 1 Patch onto the skin daily. Patient not taking: Reported on 11/23/2024 09/20/24 Not Taking Provider, Historical prasugreL HCl (EFFIENT) 10 mg Oral Tablet Take 10 mg by mouth daily. 09/19/24 11/23/2024 Provider, Historical prochlorperazine (COMPAZINE) 10 mg Oral Tablet Take 10 mg by mouth every 8 hours as needed for Nausea. Patient not taking: Reported on 11/23/2024 09/26/24 Not Taking Provider, Historical Inpatient Medications: acetaminophen 650 mg Oral 6 times per day Or acetaminophen 650 mg Oral 6 times per day Or acetaminophen 650 mg Rectal 6 times per day aspirin 81 mg Oral Daily atorvastatin 80 mg Oral Daily ibuprofen (CALDOLOR) ivpb (Orderable) 800 mg Intravenous 4 times per day nicotine 1 Patch Transdermal Daily And nicotine 1 Patch Transdermal Nightly pantoprazole 40 mg Oral Daily AC tolterodine 4 mg Oral Daily sodium chloride 0.9 % 125 mL/hr at 12/02/24 1154 Past Surgical History Past Surgical History: Procedure Laterality Date CARDIAC CATHETERIZATION CORONARY ANGIOPLASTY WITH STENT PLACEMENT Sep 19 2022 CYSTOSCOPY 10/27/2024 Surgeon: Patricia Ellison MD; Location: [facility] MAIN OR; Service: Urology Allergy No Known Allergies Patient Active Problem List Diagnosis ASHD (arteriosclerotic heart disease) 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) BP 118/53 (BP Location: Right arm) Pulse 103 Temp 98 ??F (36.7 ??C) (Oral) Resp 18 Ht 5' 8 (1.727 m) Wt 243 lb (110.2 kg) SpO2 92% BMI 36.95 kg/m?? I/O 24 hours: Intake/Output Summary (Last 24 hours) at 12/02/2024 1156 Last data filed at 12/02/2024 1154 Gross per 24 hour Intake 7111.22 ml Output 1360 ml Net 5751.22 ml Diagnostic tests The most recent cardiovascular imaging studies available in [facility] EMR were reviewed at time of consultation Exam: Pt lying in bed in no distress. Head: Atraumatic, normocephalic. 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 Lizzie Hinkle APRN Heart and Vascular 12/02/2024 Disposition Perspective - Medically Ready for Discharge: No Anticipated Discharge: 1-2 days Discharge when / if: tbd The patient was seen in collaboration with the JOSSIE. The patient seen and examined independently by myself. I have taken a history and performed a physical examination of this patient. I reviewed labs, vital signs and other pertinent testing. I personally reviewed past medical history, social and family history. The substantial portion of the visit was performed by myself and I made the medical decision making. I reviewed most recent hospitalist note, CBC, BMP, and telemetry strips. 1. CAD. Reviewed ECG no acute ischemia appreciated troponins are detectable but not trending in a'sconcerning manner. Continue aspirin and statin. No chest pains noted. 2. Hypotension likely secondary to dehydration and sepsis. 3. Renal tumor status post robotic nephro ureterectomy cystoscopy and trans resection of the bladder tumor, postsurgery. 4. Pneumonia. Per primary. Bear Samuel MD, [facility] 12/02/2024 6:11 PM * Meng Chen MD - 12/02/2024 9:19 AM EDTAssociated Order(s): IP CONSULT TO HOSPITALIST Images from the original note were not included. History and Physical Date of Admission: 12/01/2024 Admitting Physician: Meng Chen MD Primary Care Physician: Reyna Perez APRN No chief complaint on file. Alex Hoffman is a 49 y.o. male who presents with dyspnea and hypotension during the night. He had Robot-assisted laparoscopic left radical nephroureterectomy on 12/01 and no complications reported. [place] severe CAD and CABG had been planned but needed to address kidney issues first. He has mild dizziness. SBP was in the 60's during the night. Has mild cough. Past Medical History: Diagnosis Date Anxiety CAD (coronary artery disease) Cancer (HCC) GERD (gastroesophageal reflux disease) Heartburn Hyperlipidemia Hypertension Kidney mass left AR (myocardial infarction) (HCC) 09/17/2024 Motion sickness Past Surgical History: Procedure Laterality Date CARDIAC CATHETERIZATION CORONARY ANGIOPLASTY WITH STENT PLACEMENT Sep 19 2022 CYSTOSCOPY 10/27/2024 Surgeon: Patricia Ellison MD; Location: [facility]; Service: Urology No Known Allergies Current Facility-Administered Medications: 0.9 % NaCl infusion, , Intravenous, Continuous, Sadi Haney MD, Last Rate: 125 mL/hr at 12/02/24 0730, Rate Verify at 12/02/24 0730 acetaminophen (TYLENOL) tablet 650 mg, 650 mg, Oral, 6 times per day, 650 mg at 12/02/24 0626 OR acetaminophen (TYLENOL) oral solution 650 mg, 650 mg, Oral, 6 times per day OR acetaminophen (TYLENOL) suppository 650 mg, 650 mg, Rectal, 6 times per day, Sadi Haney MD acetaminophen (TYLENOL) tablet 650 mg, 650 mg, Oral, Q6H PRN OR acetaminophen (TYLENOL) oral solution 650 mg, 650 mg, Oral, Q6H PRN OR acetaminophen (TYLENOL) suppository 650 mg, 650 mg, Rectal, Q6H PRN, Sadi Haney MD acetaminophen (TYLENOL) tablet 650 mg, 650 mg, Oral, Q4H PRN OR acetaminophen (TYLENOL) suppository 650 mg, 650 mg, Rectal, Q4H PRN, Sadi Haney MD aspirin EC tablet 81 mg, 81 mg, Oral, Daily, Sadi Haney MD, 81 mg at 12/01/242014 atorvastatin (LIPITOR) tablet 80 mg, 80 mg, Oral, Daily, Sadi Haney MD, 80 mg at 12/01/242016 cefTRIAXone in dextrose (ROCEPHIN) 1 gram/50 mL IVPB 1 g, 1 g, Intravenous, Daily, Sadi Haney MD, Last Rate: 100 mL/hr at 12/02/24 0917, 1 g at 12/02/24 09 diphenhydrAMINE (BENADRYL) tablet 12.5-25 mg, 12.5-25 mg, Oral, Q6H PRN OR diphenhydrAMINE (BENADRYL) injection 12.5-25 mg, 12.5-25 mg, Intravenous, Q6H PRN, Sadi Haney MD fUROsemide (LASix) tablet 40 mg, 40 mg, Oral, Daily, Sadi Haney MD, 40 mg at 12/01/242015 ibuprofen (CALDOLOR) 800 mg in dextrose 5% 250 mL IV infusion, 800 mg, Intravenous, 4 times per day, Sadi Haney MD, Stopped at 12/02/24 07 losartan (COZAAR) tablet 50 mg, 50 mg, Oral, Daily, Sadi Haney MD, 50 mg at 12/01/242015 metoprolol succinate (TOPROL-XL) XL tablet 25 mg, 25 mg, Oral, Daily, Sadi Haney MD morphine injection 2 mg, 2 mg, Intravenous, Q1H PRN OR morphine injection 3- 4 mg, 3-4 mg, Intravenous, Q1H PRN OR morphine injection 5-6 mg, 5-6 mg, Intravenous, Q1H PRN, Sadi Haney MD nicotine (NICODERM CQ) 21 mg/24 hr 1 Patch, 1 Patch, Transdermal, Daily, 1 Patch at 12/01/244 AND nicotine (NICODERM CQ) patch CHECK, 1 Patch, Transdermal, Nightly, Sadi Haney MD ondansetron (ZOFRAN) tablet 4 mg, 4 mg, Oral, Q4H PRN OR ondansetron (ZOFRAN) injection 4 mg, 4mg, Intravenous, Q4H PRN, Sadi Haney MD oxyCODONE (ROXICODONE) immediate release tablet 5-10 mg, 5-10 mg, Oral, Q4H PRN, Sadi Haney MD, 5 mg at 12/01/242014 pantoprazole (PROTONIX) tablet 40 mg, 40 mg, Oral, Daily AC, Sadi Haney MD, 40 mg at 12/02/24533 tolterodine (DETROL LA) ER capsule 4 mg, 4 mg, Oral, Daily, Sadi Haney MD, 4 mg at 12/01/242030 Social History Socioeconomic History Marital status: Spouse name: Not on file Number of children: Not on file Years of education: Not on file Highest education level: Not on file Occupational History Not on file Tobacco Use Smoking status: Every Day Current packs/day: 1.00 Average packs/day: 1 pack/day for 37.1 years (37.1 ttl pk-yrs) Types: Cigarettes Start date: 05/10/1989 Smokeless tobacco: Never Vaping Use Vaping status: Never Used Substance and Sexual Activity Alcohol use: Not Currently Drug use: Never Sexual activity: Yes Partners: Female Other Topics Concern Not on file Social History Narrative Not on file Social Drivers of Health Financial Resource Strain: Not on file Food Insecurity: Not on file Transportation Needs: Not on file Physical Activity: Not on file Stress: Not on file Social Connections: Not on file Intimate Partner Violence: Not on file Housing Stability: Not on file Family History Problem Relation Age of Onset Asthma Mother 60 - 69 High Cholesterol Father High Blood Pressure Father Heart Disease Father Diabetes Father Cancer Father Asthma Father 80 - 99 Anesth Problems Neg Hx There is no immunization history on file for this patient. ROS Review of Systems: The listed systems were reviewed and reveal the following in addition to any already discussed in the HPI: Constitutional: No fever, chills, or weight loss Eyes: No visual disturbance HENT: No headache, hearing loss, epistaxis, sore throat, or hoarseness Lungs: + SOB, + cough, hemoptysis, or pleuritic chest pain Cardiovascular: No chest pain, PND or orthopnea Endocrine: No polyuria, polydypsia, or polyphagia GI: No abdominal pain, nausea, vomiting, hematemesis, diarrhea, constipation, melena, hematochezia,or bright red blood per rectum : No dysuria, frequency, hesitancy, or hematuria Musculoskeletal: No myalgias or muscle weakness Neurologic: No focal numbness or weakness Skin: No edema, jaundice, or skin discoloration Psychiatric: No depression, homicidal or suicidal ideation Hx of dep/anx Hematologic/Allergic: No history of blood clots, bleeding or easy bruising Vital Signs BP 91/51 (BP Location: Left arm, Patient Position: Semi Fowlers) Pulse 101 Temp 98.4 ??F (36.9 ??C) (Oral) Resp 18 Ht 5' 8 (1.727 m) Wt 243 lb (110.2 kg) SpO2 93% BMI 36.95kg/m?? Gen: no acute distress, alert, oriented, fatigued HEENT: atraumatic, normocephalic,PERRLA EOMI, no JVD, Cardiovascular: RRR without murmurs, rubs, or gallops Lungs: right post crackles, mild Abdomen: positive bowel sounds, soft, mild right-tender to palpation, no hepatosplenomegaly appreciated, no masses Extremities: no cyanosis, clubbing or edema Neuro: no focal neurological deficits, strength and sensation normal, Skin: clear, dry, and intact, no rashes Psyche: Normal mood and affect Heme: No bleeding or bruising Musculoskeletal: No muscle or joint pain or redness Radiology/ Procedures/Labs Pertinent labs and radiographic tests from 12/02/24 have been reviewed and other pertinent studies from earlier Active Hospital Problems Diagnosis *Ureteral mass Sepsis without acute organ dysfunction (HCC) Community acquired pneumonia of right middle lobe of lung Hypotension S/p nephrectomy Malignant neoplasm of left ureter (HCC) Coronary artery disease of [place] artery of [place] heart with stable angina pectoris Assessment and Plan Assessment & Plan 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 Plan per urology, follow path Coronary artery disease of [place] artery of [place] heart with stable angina pectoris - diffuse severe disease, troponin elevation likely due to demand ischemia, consult cards. Cont statin, asa Sepsis without acute organ dysfunction (HCC) Community acquired pneumonia of right middle lobe of lung Hypotension - noted on imaging, SBP was in the 60's and now improved 118/53. Follow cultures. Lactate was elevated, trend. Change to high dose ceftriaxone Acute blood loss as cause of postoperative anemia - Hgb trending down, check again. No report of heavy blood loss in OR Handoff Completed: No Disposition Perspective - Medically ready for discharge: No Anticipated ready for discharge timeframe?: 3 days Ready for discharge when / if?: treat infection Estimated Date of Discharge: 12/03/2024 D/w family and team See chart orders for detailed plan. Full Code Meng Chen MD 12/02/2024 9:19 AM documented in this encounter Nursing Notes * Shoshana Rankin RN - 11/23/2024 3:01 PM EDT Per patient messages, Dr Kenny will not comment on blood thinner hold or clearance. Cardiac clearance and blood thinner hold sent to Dr. Andrade * Shoshana Rankin RN - 11/23/2024 2:58 PM EDT CLEARANCE REQUEST ATTENTION: Dr. Andrade Patient Alex Hoffman 1975 DATE OF SURGERY: 12/01/2024 WITH Sadi Khoury MD FOR: [place] LAPAROSCOPY NEPHRECTOMY W/TOTAL URETERECTOMY [76069] (LEFT DAVINCI ROBOTIC NEPHROURETERECTOMY, CYSTOSCOPY, TRANSURETHRAL RESECTION OF THE BLADDER TUMOR) [place] LAPAROSCOPY RADICAL NEPHRECTOMY [[id number]] AK CYSTOURETHROSCOPY W/DEST &/RMVL MED BLADDER EMERY [[id number]] THE ANESTHESIA DEPARTMENT IS REQUESTING A CLEARANCE RELATED TO: Recent PCI. Also surgeons is requesting if blood thinner can be held ? Anesthesia type:General PLEASE RESPOND TO THIS ENCOUNTER OR CALL WITH ANY QUESTIONS/CONCERNS PHONE: [phone] Thank You [facility] PRE-ADMISSION TESTING DEPARTMENT * Shoshana Rankin RN - 11/23/2024 2:24 PM EDT REPORTS REQUEST ATTENTION:Reyna Perez PATIENT: Alex Hoffman : 1975 This patient is scheduled for surgery on 12/01/2024 with Sadi Khoury MD Anesthesia has requested the most recent results of the following tests: Most recent office visit note and any recent testing COMMENTS:__Thanks! Please fax to Pre-admission testing. PHONE # [phone] ATTENTION: [address] [id number] documented in this encounter Miscellaneous Notes * Utilization Review Notes - Gala Powell LPN - 12/08/2024 11:29 AM EDT DISCHARGED HOME ON 12/08/24 FOLLOW UP WITH Sadi Haney MD [address] [facility] [address] [facility] [id number] Follow up in 2 week(s) follow up with Logan Montana MD [address] [facility] [address] Follow up in 2 week(s) To discuss re-intation of antiplatelet therapy and further CTS w/u Reyna Perez, OVEN DAUBER [address] [facility] [address] [facility] [id number] Follow up in 1 week(s) Hospital follow up, recheck CBC next week with PCP prior to restarting blood thinner * Utilization Review Notes - Gala Powell LPN - 12/07/2024 9:54 AM EDT 12/07 TEMP 97.8 HR 79, RESP 16, 122/67, SATS 97 ON RA, WBC 10.8, PO VANCO CONTS, STARTED YEST QID, ZOFRAN PO X 3 GIVEN YEST, PER UROLOGY DOC NOTES OF THIS AM, POD 6 s/p Cystoscopy and transurethral incision of left ureteral orifice, Robot- assisted laparoscopic left radical nephroureterectomy performed by Dr. Haney. Patient sitting up in chair this AM, at bedside. Reports he is feeling good, minimal pain, loose stools improved. C-diff +, PO Vanc started. DAMIEN in place, 15 ml output this AM. Bradford in place anddraining without issue, urine clear yellow. Hgb 9.7 this AM. Afebrile, VSS. Plan: -Encourage patient to ambulate -Continue to trend labs-hgb stable, can restart bASA today -DAMIEN drain to stay in place until DC -Plan for Cystogram tomorrow, possible bradford catheter removal afterwards pending results -Continue to turn/reposition patient to offload pressure to coccyx -Anticipate DC in the next few days DIARRHEA IMPROVING, CONTS SAME TX. * Utilization Review Notes - Lisette Wolfe RN - 12/06/2024 8:04 AM EDT Images from the original note were not included. 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 male who post op day 4 s/p Cystoscopy and transurethral incision of left ureteral orifice, Robot-assisted laparoscopic left radical nephroureterectomy performed by Dr. Haney. Patient with a little abdominal soreness. Bruising noted on left side of abdomen. Patient ambulating in hallway. Plan: -bruising normal and likely to be from surgery -encouraged patient to continue to ambulate, out of bed as tolerated -continue to trend labs -Continue to turn/reposition patient to offload pressure to corry VILLARREAL NOTE 12/05 Ureteral mass S/p nephrectomy Malignant neoplasm of left ureter (HCC) - urology consulted - 12/01 - s/p Robot-assisted laparoscopic left radical nephroureterectomy. - pathology pending Elevated troponin Coronary artery disease involving [place] coronary artery of [place] heart without angina pectoris - CABG planned at some point diffuse severe disease, troponin elevation likely due to demand ischemia, - cards consulted - holding asa for now - statin Sepsis without acute organ dysfunction (HCC) Community acquired pneumonia of right middle lobe of lung Hypotension - likely due to infection and blood loss anemia, continue ceftriaxone, cultures negative thus far. Sepsis syndrome improved Acute blood loss as cause of postoperative anemia - hgb 14.5 on admission>>>9.4 - has received 3 units rbc - ASA on hold - per urology, no need for serial h/h - check iron level PLAN: melatonin qhs, check iron level, consult PT/OT Dispo: per urology CARDS NOTE 12/05 Plan: - Supportive care per others - Continue statin - Holding Toprol, lasix, losartan for symptomatic hypotension - Will discuss bASA plans with attending fire safety inspector - on hold currently last dose 12/04. per urology wants to hold at least until tomorrow. will follow cbc trend. ROCEPHIN IV DAILY 12/06 HGB 8.7, HCT 25.7 * Utilization Review Notes - Gala Powell LPN - 12/05/2024 9:30 AM EDT 12/05 TEMP 97.6 HR 85, RESP 18, 127/72, SATS 97 ON RA, H&H 8.4 AND 25.3, WBC 8.0, IV ROCEPHIN CONTS, TYLENOL PO X 1 GIVEN, PER DOC NOTES OF YEST; Patient received 1 unit PRBCs this AM. Most recent Hgb 8.9 ~[address] with small amount of sanguinous output noted. Bradford in place and draining clear, yellow urine. Patient had BM today, tolerating regular diet, PER UROLOGY NOTES OF TODAY 49 y.o. 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 HTN - Multifactorial- sepsis, anemia, medications -- Recommended restarting Toprol 12/03, pt hesitant to restart- no doses yet 12/04 - AQUATICS LIFEGUARD Lasix 40gm QD, losartan 50mg QD, Toprol 25mg QD (on hold) Anemia - Hgb 10.2>7.5>8.1>7.9>7.3 - s/p 2 U PRBC's 12/03 and 1 U PRBC 12/04 CAD - EKG SR no acute ischemia appreciated - Trops > - Denies chest pain/ diaphoresis/ nausea - AQUATICS LIFEGUARD Effient, ASA, Statin, Toprol - Echo 10/2024: EF 60-65%. - LHC showed ostial LAD 70% stenosis, circumflex (nondominant) with 60-70% stenosis, with 30-40% stenosis of first OM. Pt reports he had LHC and PCI on 09/27/24 (VIC x 1 to RCA) at [facility]. Pt was scheduled to have additional PCI to LAD and circ however pt wanted a second opinion for possible CABG surgery. Met with Dr. Kenny 10/10 with plans for CABG x 2 with QUINTIN clip on 10/30/24.however this was postponed until urology w/u is complete. Plan: - Supportive care per others - Continue statin, Toprol - Will discuss bASA plans with attending fire safety inspector - on hold currently last dose today 12/04 Addendum 1510: - Resp status improved post blood transfusion, no diuresis at this time. * Utilization Review Notes - Gala Powell LPN - 12/04/2024 8:47 AM EDT Admit as INPT 12/01/24 Admit review Medsurg Ureteral mass, Malignant neoplasm of left ureter 12/01/24 LEFT DAVINCI ROBOTIC NEPHROURETERECTOMY, CYSTOSCOPY, TRANSURETHRAL RESECTION OF THE BLADDERTUMOR Per Urology note 12/02/24 49 y.o. 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 Haney on 12/01. Will recheck H&H at noon Stop Lovenox continue CLD CXR ordered T&S ordered Hospitalist team following- EKG and troponins pending Troponin BUN 21 Creat 1.61 Lactic 3.5-3.1-2.3 Procal 0.62 WBC 21.8 H&H 10.2/30.8-8.1/24.7 12/02/24 0806 101 18 91/51 MAP 63 93% RA 12/02/24 0527 81/28 MAP 53 12/02/24 0415 64/37 MAP 46 Blood cultures pending UA with reflex to culture pending NS@125, IV Rocephin, IV Caldolor QID, Roxicodone prn (has had 1 dose), 1000cc NS bolus x 2, IS q2, Catheter care, Drain care every shift 12/02 BP 91/51 (BP Location: Left arm, Patient Position: Semi Fowlers) Pulse 101 Temp 98.4 ??F (36.9 ??C) (Oral) Resp 18 Ht 5' 8 (1.727 m) Wt 243 lb (110.2 kg) SpO2 93% Assessment & Plan 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 Plan per urology, follow path Coronary artery disease of [place] artery of [place] heart with stable angina pectoris - diffuse severe disease, troponin elevation likely due to demand ischemia, consult cards. Cont statin, asa Sepsis without acute organ dysfunction (HCC) Community acquired pneumonia of right middle lobe of lung Hypotension - noted on imaging, SBP was in the 60's and now improved 118/53. Follow cultures. Lactate was elevated, trend. Change to high dose ceftriaxone Acute blood loss as cause of postoperative anemia - Hgb trending down, check again. No report of heavy blood loss in OR PT VERY ANXIOUS HR UP TO 121, UNABLE TO CALM DOWN, VALIUM GIVEN IV X1, H&H 7.5 AND 22.9, CA TOTAL 8.1, CONTS ON TYLENOL 6 TIMES A DAY IV ROCEPHIN CONTS, IV CALDOLOR QID, IVF 100 HR, ZOFRAN IV X 2 GIVEN OXYCODONE PO X 2, IVF 100 HR, 12/03 VSS, AFEB, IV ROCEPHIN CONTS, is post op day 2 s/p Cystoscopy and transurethral incision of left ureteral orifice, Robot-assistedlaparoscopic left radical nephroureterectomy performed by Dr. Haney. Patient received 2 units of RBC last night. Cardiology following, must remain on ASA. Patient is passing gas, no BM. Bradford in place and draining clear, yellow urine. DAMIEN present, small amount of sanguinous output noted. Patient requesting stoolsoftener. Contacted by RN earlier today that patient having pain over his tailbone. Patient reports soreness over tailbone when he is laying on his back, pain improved when he is turned to his side/pressure taken off coccyx. DAMIEN drain present-small amount of sanguinous output noted Genitourinary: Comments: Bradford in place-urine clear, yellow Plan: -Continue to turn/reposition patient to offload pressure to coccyx -ADAT -Check labs in AM. No evidence of active bleeding, can d/c q 4h H&H checks -Encourage patient to ambulate -Continue abx, consider transitioning to PO for pneumonia -Cardiology and hospitalist team following 12/04 104/64, HR 89, RESP 17, TEMP 97.8, DAMIEN with small amount of sanguinous output H&H 7.3 21.5, , PLATELET 145, , IV ROCEPHIN CONTS, PER UROLOGY NOTES OF TODAY Plan: Reviewed patient with Dr. Madeline lacy AM -Will take DAMIEN off suction -Will order 1 unit PRBCs -Recheck H&H at noon -Continue to turn/reposition patient to offload pressure to coccyx -ADAT -Continue abx, consider transitioning to PO for pneumonia -Cardiology and hospitalist team following * Utilization Review Notes - Araceli Liriano RN - 12/02/2024 10:13 AM EDT Admit as INPT 12/01/24 Admit review Medsurg Ureteral mass, Malignant neoplasm of left ureter 12/01/24 LEFT DAVINCI ROBOTIC NEPHROURETERECTOMY, CYSTOSCOPY, TRANSURETHRAL RESECTION OF THE BLADDERTUMOR Per Urology note 12/02/24 49 y.o. 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 Haney on 12/01. Will recheck H&H at noon Stop Lovenox continue CLD CXR ordered T&S ordered Hospitalist team following- EKG and troponins pending Troponin BUN 21 Creat 1.61 Lactic 3.5-3.1-2.3 Procal 0.62 WBC 21.8 H&H 10.2/30.8-8.1/24.7 12/02/24 0806 101 18 91/51 MAP 63 93% RA 12/02/24 0527 81/28 MAP 53 12/02/24 0415 64/37 MAP 46 Blood cultures pending UA with reflex to culture pending NS@125, IV Rocephin, IV Caldolor QID, Roxicodone prn (has had 1 dose), 1000cc NS bolus x 2, IS q2, Catheter care, Drain care every shift * Plan of Care - Selene Lopez RN - 12/01/2024 5:57 PM EDT Problem: Pain Management Description: Related to: Procedure Goal: The patient's stated pain goal will be reached and maintained. Outcome: Progressing Problem: Potential for altered respiratory status. Description: Related to: Sedation/Anesthesia Goal: Patient will remain free of respiratory complications. Outcome: Progressing Problem: Bleeding Description: Related to: Procedure Goal: Post-op dressing will remain clean and dry. Outcome: Progressing Goal: Patient will have no signs/symptoms of post-procedure bleeding. Outcome: Progressing Goal: Access site will be free of hematoma/bleeding. Outcome: Progressing Problem: Potential for post-op nausea/vomiting Description: Related to procedure Goal: Patient will be free of post-op nausea/vomiting or nausea/vomiting will be controlled. Outcome: Progressing Problem: Potential for altered tissue perfusion-contrast reaction/renal impairment Description: Related to: Contrast administration Goal: Patient will be free of contrast reaction and GFR will remain baseline. Outcome: Progressing Problem: Potential for alteration in skin integrity Goal: Skin integrity is maintained or improved Outcome: Progressing Problem: Alteration in circulation/neurovascular status Goal: Circulation/neurovascular status will be maintained. Outcome: Progressing Problem: Safety: Fall Risk Goal: Patient will be free from falls. Outcome: Progressing Problem: Thermoregulation Goal: Patient's temperature will be greater than 96.8F at discharge. Outcome: Progressing * Plan of Care - Sonja Solis RN - 12/01/2024 4:10 PM EDT Problem: Potential for Infection Description: Related to: -Invasive lines (IV, CVD, Indwelling Urinary Catheter) -Alteration in skin integrity related to positioning during procedure -Surgical Site Goal: Patient will be free from infection 12/01/2024 1610 by Nurse Sonja RN Outcome: Completed 12/01/2024 1513 by Nurse Sonja RN Outcome: Progressing Problem: Potential for injury Description: Related to: Procedure Goal: Patient is free from signs or symptoms of physical injury unrelated to the intended therapeutic effects of the procedure. 12/01/2024 1610 by Nurse Sonja RN Outcome: Completed 12/01/2024 1513 by Nurse Sonja RN Outcome: Progressing documented in this encounter Plan of Treatment Upcoming Encounters Date Type Department Care Team (Late st Contact Info) Description 12/21/2024 2:30 PM EDT Office Visit [facility] [address] [place] [address] Dorinda Rodriguez PA-C [address] [place] [address] 01/23/2025 9:00 AM EDT Office Visit [facility] [place] [address] [place] [address] Drive [address] [place] [address] Logan Kenny MD [address] [place] [address] [place] [address] Pending Results Name Type Priority Associated Diagnoses Date /Time ECG AND WAVEFORMS - TELEMETRY Point of Care Testing Routine 12/08/2024 7:47 AM EDT Scheduled Orders Name Type Priority Associated Diagnoses Orde r Schedule RED BLOOD CELLS REQUEST Blood Bank PIEDAD PIEDAD for 1 Occur rences starting 12/02/2024 until 12/02/2024 documented as of this encounter Procedures Procedure Name Priority Date/Time Associated Diagnosis Comments SCANNED RHYTHM STRIPS 12/09/2024 4:31 AM EDT ECG AND WAVEFORMS - TELEMETRY Routine 12/08/2024 7:47 AM EDT CBC WITH DIFF Early AM 12/08/2024 6:02 AM EDT BASIC METABOLIC PANEL Early AM 12/08/2024 6:02 AM EDT ECG AND WAVEFORMS - TELEMETRY Routine 12/07/2024 8:06 PM EDT FL CYSTOGRAM MINIMUM 3 VW PIEDAD 12/07/2024 11:31 AM EDT ECG AND WAVEFORMS - TELEMETRY Routine 12/07/2024 10:12 AM EDT CBC Early AM 12/07/2024 5:33 AM EDT ECG AND WAVEFORMS - TELEMETRY Routine 12/06/2024 11:04 PM EDT C DIFF INTERPRETATION Routine 12/06/2024 9:57 AM EDT C DIFF GDH AG AND TOXIN A+B Routine 12/06/2024 9:57 AM EDT C DIFF TOXIN DNA Routine 12/06/2024 9:57 AM EDT ECG AND WAVEFORMS - TELEMETRY Routine 12/06/2024 7:01 AM EDT CBC Early AM 12/06/2024 5:28 AM EDT ECG AND WAVEFORMS - TELEMETRY Routine 12/05/2024 7:00 PM EDT HEMOGLOBIN AND HEMATOCRIT Timed 12/05/2024 12:22 PM EDT ECG AND WAVEFORMS - TELEMETRY Routine 12/05/2024 8:03 AM EDT CBC Early AM 12/05/2024 5:55 AM EDT HEMOGLOBIN AND HEMATOCRIT Routine 12/04/2024 7:12 PM EDT ECG AND WAVEFORMS - TELEMETRY Routine 12/04/2024 7:00 PM EDT HEMOGLOBIN AND HEMATOCRIT Timed 12/04/2024 12:54 PM EDT TRANSFUSE RED BLOOD CELLS Routine 12/04/2024 9:15 AM EDT ECG AND WAVEFORMS - TELEMETRY Routine 12/04/2024 7:56 AM EDT ECG AND WAVEFORMS - TELEMETRY Routine 12/04/2024 7:56 AM EDT IRON+TIBC Add-On 12/04/2024 5:52 AM EDT CBC WITH DIFF Early AM 12/04/2024 5:52 AM EDT BASIC METABOLIC PANEL Early AM 12/04/2024 5:52 AM EDT ECG AND WAVEFORMS - TELEMETRY Routine 12/03/2024 7:00 PM EDT HEMOGLOBIN AND HEMATOCRIT Timed 12/03/2024 10:44 AM EDT ECG AND WAVEFORMS - TELEMETRY Routine 12/03/2024 7:00 AM EDT HEMOGLOBIN AND HEMATOCRIT Timed 12/03/2024 4:48 AM EDT TROPONIN-T HIGH SENSITIVITY 6 HR Timed 12/03/2024 3:40 AM EDT CBC WITH DIFF Early AM 12/03/2024 3:40 AM EDT BASIC METABOLIC PANEL Early AM 12/03/2024 3:40 AM EDT TRANSFUSE RED BLOOD CELLS Routine 12/03/2024 1:15 AM EDT TROPONIN-T HIGH SENSITIVITY 2HR Timed 12/02/2024 10:14 PM EDT TRANSFUSE RED BLOOD CELLS Routine 12/02/2024 10:[address] ABDOMEN PELVIS W CONTRAST STAT 12/02/2024 8:21 PM EDT TROPONIN-T HIGH SENSITIVITY BASELINE W/ REFLEX STAT 12/02/2024 7:34 PM EDT EK EKG 12 LEAD STAT 12/02/2024 7:13 PM EDT ECG AND WAVEFORMS - TELEMETRY Routine 12/02/2024 7:00 PM EDT REPEAT LACTIC ACID STAT 12/02/2024 6:17 PM EDT HEMOGLOBIN AND HEMATOCRIT Timed 12/02/2024 6:17 PM EDT REPEAT LACTIC ACID STAT 12/02/2024 3:49 PM EDT ECG AND WAVEFORMS - TELEMETRY Routine 12/02/2024 3:11 PM EDT BLOOD CULTURE (NO STAIN) STAT 12/02/2024 1:42 PM EDT LACTIC ACID Routine 12/02/2024 1:42 PM EDT ECG AND WAVEFORMS - TELEMETRY Routine 12/02/2024 12:27 PM EDT REPEAT LACTIC ACID STAT 12/02/2024 10:59 AM EDT URINALYSIS REFLEX Routine 12/02/2024 10:53 AM EDT UA W/REFLEX TO CULTURE Routine 12/02/2024 10:53 AM EDT EXTRA SWENSON URINE CX Routine 12/02/2024 10:53 AM EDT URINE CULTURE (NO STAIN) Routine 12/02/2024 10:53 AM EDT BLOOD CULTURE (NO STAIN) STAT 12/02/2024 10:51 AM EDT XR CHEST AP PORTABLE STAT 12/02/2024 9:55 AM EDT IP CONSULT TO CARDIOLOGY Routine 12/02/2024 9:24 AM EDT Procedure Note - Bear Samuel MD - 12/02/2024 11:56 AM EDTThis note is in progress. Heart & Vascular Consult Note PATIENT: Alex Hoffman 1 PCP: Reyna Perez APRN Primary License Inspector: None on file I would like to thank Sadi Haney MD for requesting me to [facility] for cardiac consultation for CAD/ Hypotension History provided by: EMR, patient HPI: Alex Hoffman is a 49 y.o. male with PMHx including ASHD, Ureteral mass. Hepresents to the hospital for LEFT DAVINCI ROBOTIC NEPHROURETERECTOMY,CYSTOSCOPY, TRANSURETHRAL RESECTION OF THE BLADDER TUMOR. While in pt hebecame hypotensive requiring a fluid bilus but bp recovered. We wereconsulted for CAD and hypotension. Per pt and spouse report [facility] and was told that he would need a CABG. While being worked up foropen heart he was found to have renal cancer and this needed to be takencare of prior to procedure. Reports no Chest pain or SOB. Pt did mentionhaving a wheeze and it was noted that he has Right middle lobe pneumonia.Primary notified Echocardiogram: 10/2024 EF 60-65% Stress: NA Coronary angiography: No records found but pt reports having LHC approx 3years ago and was told he had mild non obstructive disease CT Coronary NA EKG SR Family History- Family History Problem Relation Age of Onset Asthma Mother 60 - 69 High Cholesterol Father High Blood Pressure Father Heart Disease Father Diabetes Father Cancer Father Asthma Father 80 - 99 Anesth Problems Neg Hx Social History- Social History Tobacco Use Smoking status: Every Day Current packs/day: 1.00 Average packs/day: 1 pack/day for 37.1 years (37.1 ttl pk-yrs) Types: Cigarettes Start date: 05/10/1989 Smokeless tobacco: Never Substance Use Topics Alcohol use: Not Currently ROS: Denies: Constitutional: fever, chills, weight loss ENT: headaches, LOC, runny nose Cardiovascular: chest pain, edema, palpitations, orthopnea, dyspnea, orsyncope Pulmonary: cough, sputum production, wheezing and hemoptysis. Gastrointestinal: abdominal pain, nausea, vomiting, constipation,diarrhea, hematochezia and melena. Genitourinary: change in bladder habits, burning and hematuria. 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 12/01/24 Peace Rea APRN aspirin 81 mg Oral Tablet, Delayed Release (E.C.) Take 81 mg by mouthdaily. 09/04/24 11/30/2024 at 8:00 AM Provider, Historical atorvastatin (LIPITOR) 80 mg Oral Tablet Take 80 mg by mouth daily.09/19/24 11/30/2024 at 8:00 AM Provider, Historical Bacillus coagulans-inulin 1 billion-250 cell-mg Oral Capsule Take bymouth daily. 11/30/2024 at 8:00 AM Provider, Historical cholecalciferol, vitamin D3, 25 mcg (1,000 unit) Oral Tablet Take 1,000Units by mouth daily. 11/07/2024 Provider, Historical Coenzyme Q10 100 mg Oral Capsule Take 1 Capsule by mouth daily.11/30/2024 at 8:00 AM Provider, Historical fUROsemide (LASIX) 40 mg Oral Tablet Take 40 mg by mouth daily. at 8:00 AM Provider, Historical lansoprazole (PREVACID) 30 mg Oral Capsule, Delayed Release(E.C.) Take 30mg by mouth 2 times daily. Patient taking differently: Take 30 mg by mouth daily. 09/18/24 11/30/2024Morning Provider, Historical losartan (COZAAR) 50 mg Oral Tablet Take 50 mg by mouth daily. at 8:00 AM Provider, Historical metoprolol succinate (TOPROL-XL) 25 mg Oral Tablet Sustained Release 24 hrTake 25 mg by mouth daily. 07/11/24 12/01/2024 at 6:30 AM Provider,Historical famotidine (PEPCID) 40 mg Oral Tablet Take 40 mg by mouth 2 times daily. Patient not taking: Reported on 10/27/2024 09/18/24 Not Taking Provider,Historical HYDROcodone-acetaminophen (NORCO) 5-325 mg Oral Tablet Take 1 Tablet bymouth every 6 hours as needed for Acute Pain > 3 Days Medically Necessary(R52) or Acute Pain (R52). Patient not taking: Reported on 11/23/2024 10/27/24 Not Taking Patricia Ellison MD nicotine (NICODERM CQ) 21 mg/24 hr TD Patch [address] 1 Patch onto theskin daily. Patient not taking: Reported on 11/23/2024 09/20/24 Not Taking Provider,Historical prasugreL HCl (EFFIENT) 10 mg Oral Tablet Take 10 mg by mouth daily.09/19/24 11/23/2024 Provider, Historical prochlorperazine (COMPAZINE) 10 mg Oral Tablet Take 10 mg by mouth every 8hours as needed for Nausea. Patient not taking: Reported on 11/23/2024 09/26/24 Not Taking Provider,Historical Inpatient Medications: acetaminophen 650 mg Oral 6 times per day Or acetaminophen 650 mg Oral 6 times per day Or acetaminophen 650 mg Rectal 6 times per day aspirin 81 mg Oral Daily atorvastatin 80 mg Oral Daily ibuprofen (CALDOLOR) ivpb (Orderable) 800 mg Intravenous 4 times per day nicotine 1 Patch Transdermal Daily And nicotine 1 Patch Transdermal Nightly pantoprazole 40 mg Oral Daily AC tolterodine 4 mg Oral Daily sodium chloride 0.9 % 125 mL/hr at 12/02/24 1154 Past Surgical History Past Surgical History: Procedure Laterality Date CARDIAC CATHETERIZATION CORONARY ANGIOPLASTY WITH STENT PLACEMENT Sep 19 2022 CYSTOSCOPY 10/27/2024 Surgeon: Patricia Ellison MD; Location: [facility] MAIN OR; Service: Urology Allergy No Known Allergies Patient Active Problem List Diagnosis ASHD (arteriosclerotic heart disease) 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) BP 118/53 (BP Location: Right arm) Pulse 103 Temp 98 F (36.7 C)(Oral) Resp 18 Ht 5' 8 (1.727 m) Wt 243 lb (110.2 kg) [id number]% BMI 36.95 kg/m I/O 24 hours: Intake/Output Summary (Last 24 hours) at 12/02/2024 1156 Last data filed at 12/02/2024 1154 Gross per 24 hour Intake 7111.22 ml Output 1360 ml Net 5751.22 ml Diagnostic tests The most recent cardiovascular imaging studies available in [facility] EMR werereviewed at time of consultation Exam: Pt lying in bed in no distress. Head: Atraumatic, normocephalic. 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 Lizzie Hinkle, [facility] 12/02/2024 Disposition Perspective - Medically Ready for Discharge: No Anticipated Discharge: 1-2 days Discharge when / if: tbd The patient was seen in collaboration with the [facility]. The patient seen and examined independently by myself. I have taken a history and performed a physical examination of thispatient. I reviewed labs, vital signs and other pertinent testing. I personally reviewed past medical history, social and family history. The substantial portion of the visit was performed by myself and I madethe medical decision making. I reviewed most recent hospitalist note, CBC, BMP, and telemetry strips. 1. CAD. Reviewed ECG no acute ischemia appreciated troponins aredetectable but not trending in a's concerning manner. Continue aspirinand statin. No chest pains noted. 2. Hypotension likely secondary to dehydration and sepsis. 3. Renal tumor status post robotic nephro ureterectomy cystoscopy andtrans resection of the bladder tumor, postsurgery. 4. Pneumonia. Per primary. Bear Samuel MD, [facility] 12/02/2024 6:11 PM TROPONIN-T HIGH SENSITIVITY 2HR Timed 12/02/2024 9:22 AM EDT REPEAT LACTIC ACID STAT 12/02/2024 9:22 AM EDT HEMOGLOBIN AND HEMATOCRIT Routine 12/02/2024 9:22 AM EDT TROPONIN-T HIGH SENSITIVITY BASELINE W/ REFLEX STAT 12/02/2024 7:08 AM EDT REPEAT LACTIC ACID STAT 12/02/2024 7:08 AM EDT EK EKG 12 LEAD STAT 12/02/2024 7:01 AM EDT PROCALCITONIN STAT 12/02/2024 5:05 AM EDT LACTIC ACID STAT 12/02/2024 5:04 AM EDT CREATININE BODY FLUID Timed 12/02/2024 4:12 AM EDT CBC WITH DIFF STAT 12/02/2024 3:47 AM EDT BASIC METABOLIC PANEL STAT 12/02/2024 3:46 AM EDT GLUCOSE METER POC Routine 12/02/2024 2:58 AM EDT IP CONSULT TO HOSPITALIST Routine 12/01/2024 6:51 PM EDT Procedure Note - Meng Chen MD - 12/02/2024 9:19 AM EDTThis note is in progress. Images from the original note were not included. History and Physical Date of Admission: 12/01/2024 Admitting Physician: Meng Chen MD Primary Care Physician: Reyna Perez APRN No chief complaint on file. Alex Hoffman is a 49 y.o. male who presents with dyspnea and hypotensionduring the night. He had Robot-assisted laparoscopic left radicalnephroureterectomy on 12/01 and no complications reported. Has known severeCAD and CABG had been planned but needed to address kidney issues first.He has mild dizziness. SBP was in the 60's during the night. Has mildcough. Past Medical History: Diagnosis Date Anxiety CAD (coronary artery disease) Cancer (HCC) GERD (gastroesophageal reflux disease) Heartburn Hyperlipidemia Hypertension Kidney mass left AR (myocardial infarction) (HCC) 09/17/2024 Motion sickness Past Surgical History: Procedure Laterality Date CARDIAC CATHETERIZATION CORONARY ANGIOPLASTY WITH STENT PLACEMENT Sep 19 2022 CYSTOSCOPY 10/27/2024 Surgeon: Patricia Ellison MD; Location: [facility] MAIN OR; Service: Urology No Known Allergies Current Facility-Administered Medications: 0.9 % NaCl infusion, , Intravenous, Continuous, Sadi Haney MD, Last Rate: 125 mL/hr at 12/02/24 0730, Rate Verify at 12/02/24 0730 acetaminophen (TYLENOL) tablet 650 mg, 650 mg, Oral, 6 times per day,650 mg at 12/02/24 0626 OR acetaminophen (TYLENOL) oral solution 650mg, 650 mg, Oral, 6 times per day OR acetaminophen (TYLENOL)suppository 650 mg, 650 mg, Rectal, 6 times per day, Sadi Haney MD acetaminophen (TYLENOL) tablet 650 mg, 650 mg, Oral, Q6H PRN ORacetaminophen (TYLENOL) oral solution 650 mg, 650 mg, Oral, Q6H PRN ORacetaminophen (TYLENOL) suppository 650 mg, 650 mg, Rectal, Q6H PRN,Sadi Haney MD acetaminophen (TYLENOL) tablet 650 mg, 650 mg, Oral, Q4H PRN ORacetaminophen (TYLENOL) suppository 650 mg, 650 mg, Rectal, Q4H PRN,Sadi Haney MD aspirin EC tablet 81 mg, 81 mg, Oral, Daily, Sadi Haney MD,81 mg at 12/01/242014 atorvastatin (LIPITOR) tablet 80 mg, 80 mg, Oral, Daily, aSdi Haney MD, 80 mg at 12/01/242016 cefTRIAXone in dextrose (ROCEPHIN) 1 gram/50 mL IVPB 1 g, 1 g,Intravenous, Daily, Sadi Haney MD, Last Rate: 100 mL/hr at12/02/24 09, 1 g at 12/02/24 0917 diphenhydrAMINE (BENADRYL) tablet 12.5-25 mg, 12.5-25 mg, Oral, Q6H PRNOR diphenhydrAMINE (BENADRYL) injection 12.5-25 mg, 12.5-25 mg,Intravenous, Q6H PRN, Sadi Haney MD fUROsemide (LASix) tablet 40 mg, 40 mg, Oral, Daily, Sadi Haney MD, 40 mg at 12/01/242015 ibuprofen (CALDOLOR) 800 mg in dextrose 5% 250 mL IV infusion, 800 mg,Intravenous, 4 times per day, Sadi Haney MD, Stopped at12/02/24 0710 losartan (COZAAR) tablet 50 mg, 50 mg, Oral, Daily, Sadi Haney MD, 50 mg at 12/01/242015 metoprolol succinate (TOPROL-XL) XL tablet 25 mg, 25 mg, Oral, Daily,Sadi Haney MD morphine injection 2 mg, 2 mg, Intravenous, Q1H PRN OR morphineinjection 3-4 mg, 3-4 mg, Intravenous, Q1H PRN OR morphine injection5-6 mg, 5-6 mg, Intravenous, Q1H PRN, Sadi Haney MD nicotine (NICODERM CQ) 21 mg/24 hr 1 Patch, 1 Patch, Transdermal, Daily,1 Patch at 12/01/242203 AND nicotine (NICODERM CQ) patch CHECK, 1Patch, Transdermal, Nightly, Sadi Haney MD ondansetron (ZOFRAN) tablet 4 mg, 4 mg, Oral, Q4H PRN OR ondansetron(ZOFRAN) injection 4 mg, 4 mg, Intravenous, Q4H PRN, Sadi Haney MD oxyCODONE (ROXICODONE) immediate release tablet 5-10 mg, 5-10 mg, Oral,Q4H PRN, Sadi Haney MD, 5 mg at 12/01/242014 pantoprazole (PROTONIX) tablet 40 mg, 40 mg, Oral, Daily AC,Sadi Haney MD, 40 mg at 12/02/24 0534 tolterodine (DETROL LA) ER capsule 4 mg, 4 mg, Oral, Daily,Sadi Haney MD, 4 mg at 12/01/242030 Social History Socioeconomic History Marital status: Spouse name: Not on file Number of children: Not on file Years of education: Not on file Highest education level: Not on file Occupational History Not on file Tobacco Use Smoking status: Every Day Current packs/day: 1.00 Average packs/day: 1 pack/day for 37.1 years (37.1 ttl pk-yrs) Types: Cigarettes Start date: 05/10/1989 Smokeless tobacco: Never Vaping Use Vaping status: Never Used Substance and Sexual Activity Alcohol use: Not Currently Drug use: Never Sexual activity: Yes Partners: Female Other Topics Concern Not on file Social History Narrative Not on file Social Drivers of Health Financial Resource Strain: Not on file Food Insecurity: Not on file Transportation Needs: Not on file Physical Activity: Not on file Stress: Not on file Social Connections: Not on file Intimate Partner Violence: Not on file Housing Stability: Not on file Family History Problem Relation Age of Onset Asthma Mother 60 - 69 High Cholesterol Father High Blood Pressure Father Heart Disease Father Diabetes Father Cancer Father Asthma Father 80 - 99 Anesth Problems Neg Hx There is no immunization history on file for this patient. ROS Review of Systems: The listed systems were reviewed and reveal thefollowing in addition to any already discussed in the HPI: Constitutional: No fever, chills, or weight loss Eyes: No visual disturbance HENT: No headache, hearing loss, epistaxis, sore throat, or hoarseness Lungs: + SOB, + cough, hemoptysis, or pleuritic chest pain Cardiovascular: No chest pain, PND or orthopnea Endocrine: No polyuria, polydypsia, or polyphagia GI: No abdominal pain, nausea, vomiting, hematemesis, diarrhea,constipation, melena, hematochezia, or bright red blood per rectum : No dysuria, frequency, hesitancy, or hematuria Musculoskeletal: No myalgias or muscle weakness Neurologic: No focal numbness or weakness Skin: No edema, jaundice, or skin discoloration Psychiatric: No depression, homicidal or suicidal ideation Hx of dep/anx Hematologic/Allergic: No history of blood clots, bleeding or easybruising Vital Signs BP 91/51 (BP Location: Left arm, Patient Position: SemiFowlers) Pulse 101 Temp 98.4 F (36.9 C) (Oral) Resp 18 Ht 5'8 (1.727 m) Wt 243 lb (110.2 kg) SpO2 93% BMI 36.95 kg/m Gen: no acute distress, alert, oriented, fatigued HEENT: atraumatic, normocephalic,PERRLA EOMI, no JVD, Cardiovascular: RRR without murmurs, rubs, or gallops Lungs: right post crackles, mild Abdomen: positive bowel sounds, soft, mild right-tender to palpation, nohepatosplenomegaly appreciated, no masses Extremities: no cyanosis, clubbing or edema Neuro: no focal neurological deficits, strength and sensation normal, Skin: clear, dry, and intact, no rashes Psyche: Normal mood and affect Heme: No bleeding or bruising Musculoskeletal: No muscle or joint pain or redness Radiology/ Procedures/Labs Pertinent labs and radiographic tests from 12/02/24 have been reviewed andother pertinent studies from earlier Active Hospital Problems Diagnosis *Ureteral mass Sepsis without acute organ dysfunction (HCC) Community acquired pneumonia of right middle lobe of lung Hypotension S/p nephrectomy 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 Cont statin, asa Sepsis without acute organ dysfunction (HCC) Community acquired pneumonia of right middle lobe of lung Hypotension - noted on imaging, SBP was in the 60's and now improved 118/53. Followcultures. Lactate was elevated, trend. Change to high dose ceftriaxone Acute blood loss as cause of postoperative anemia - Hgb trending down, check again. No report of heavy blood loss in OR Handoff Completed: No Disposition Perspective - Medically ready for discharge: No Anticipated ready for discharge timeframe?: 3 days Ready for discharge when / if?: treat infection Estimated Date of Discharge: 12/03/2024 D/w family and team See chart orders for detailed plan. Full Code Meng Chen MD 12/02/2024 9:19 AM ADMIT Routine 12/01/2024 5:16 PM EDT PATHOLOGY TISSUE REQUEST Routine 12/01/2024 3:36 PM EDT Ureteral mass CYSTOSCOPY TRANSURETHRAL RESECTION BLADDER TUMOR - FULGURATION/EVACUATI ON OF CLOT 12/01/2024 11:21 AM EDT Ureteral mass Special Needs LASSITER KNIFE, HANG WATER, OLYMPUS ESU, CYSTO FIRST, KCDR MONTILLA-JONNIE Rodas [place] CYSTOURETHROSCOPY W/DEST &/RMVL MED BLADDER EMERY 12/01/2024 11:21 AM EDT Ureteral mass Special Needs LASSITER KNIFE, HANG WATER, OLYMPUS ESU, CYSTO FIRST, ROBERT HATodd-JONNIE ASSISTINGsk [place] LAPAROSCOPY RADICAL NEPHRECTOMY 12/01/2024 11:21 AM EDT Ureteral mass Special Needs LASSITER KNIFE, HANG WATER, OLYMPUS ESU, CYSTO FIRST, KCDR HAJ-HAMED ASSISTINGsk [place] LAPAROSCOPY NEPHRECTOMY W/TOTAL URETERECTOMY 12/01/2024 11:21 AM EDT Ureteral mass Special Needs LASSITER KNIFE, HANG WATER, OLYMPUS ESU, CYSTO FIRST, KCDR HAJ-HAMED ASSISTINGsk US ANES GUIDANCE FOR POC PIEDAD 12/01/2024 9:47 AM EDT BB HISTORY CHECK STAT 12/01/2024 9:22 AM EDT Preop testing ABORH STAT 12/01/2024 9:22 AM EDT Preop testing [facility]LO[facility]S [facility] 11/23/2024 2:10 PM EDT RED BLOOD CELLS REQUEST [facility] 11/23/2024 2:10 PM EDT documented in this encounter Results * SCANNED RHYTHM STRIPS (12/09/2024 4:31 AM EDT) Anatomical Region Laterality Modality Other 12/09/2024 4:31 AM EDT us Unknown Provider IMG ECG ORDERABLES Final Result * (ABNORMAL) CBC WITH DIFF (12/08/2024 6:02 AM EDT) WBC 9.4 3.7 - 10.3 x10(3)/mcL 12/08/2024 6:48 AM EDT [facility] RBC 3.12(L) 4.60 - 6.10 x10(6)/mcL 12/08/2024 6:48 AM EDT [facility] Hgb 9.3(L) 13.7 - 17.5 g/dL 12/08/2024 6:48 AM EDT [facility] Hct 28.5(L) 40.0 - 51.0 % 12/08/2024 6:48 AM EDT [facility] MCV 91.3 80.0 - 100.0 fL 12/08/2024 6:48 AM EDT [facility] MCH 29.8 26.0 - 34.0 pg 12/08/2024 6:48 AM EDT [facility] MCHC 32.6 30.7 - 35.5 g/dL 12/08/2024 6:48 AM EDT [facility] RDW 14.5 <=14.9 % 12/08/2024 6:48 AM EDT [facility] Platelet 292 155 - 369 x10(3)/mcL 12/08/2024 6:48 AM EDT [facility] MPV 9.5 8.8 - 12.5 fL 12/08/2024 6:48 AM EDT [facility] Neut Percent 71.4 % 12/08/2024 6:48 AM EDT [facility] Comment:Neutrophils equals s egs plus bands Imm Gran% 1.1 % 12/08/2024 6:48 AM EDT [facility] Comment:Automated count of m etamyelocytes, myelocytes and promyelocytes. IG >1% represents a left shift and provides an early indication of an infection or inflammatory process. Lymph Percent 14.3 % 12/08/2024 6:48 AM EDT [facility] Mineral Percent 11.0 % 12/08/2024 6:48 AM EDT [facility] Eos Percent 1.9 % 12/08/2024 6:48 AM EDT [facility] Baso Percent 0.3 % 12/08/2024 6:48 AM EDT [facility] Neut # 6.7(H) 1.6 - 6.1 x10(3)/mcL 12/08/2024 6:48 AM EDT [facility] Comment:Neutrophils equals s egs plus bands IMMGRAN# 0.1 0.0 - 0.1 x10(3)/mcL 12/08/2024 6:48 AM EDT [facility] Comment:Automated count of m etamyelocytes, myelocytes and promyelocytes. An absolute IG <0.1 is reported as 0.0. Lymph # 1.3 1.2 - 3.9 x10(3)/mcL 12/08/2024 6:48 AM EDT [facility] Mineral # 1.0(H) 0.3 - 0.9 x10(3)/mcL 12/08/2024 6:48 AM EDT [facility] Eos# 0.2 0.0 - 0.5 x10(3)/mcL 12/08/2024 6:48 AM EDT [facility] Baso # 0.0 0.0 - 0.1 x10(3)/[facility] 12/08/2024 6:48 AM EDT [facility] Blood VENOUS BLOOD / Unknown Venipuncture / Unknown 12/08/2024 6:02 AM EDT 12/08/2024 6:35 AM EDT us Juana Shoemaker MD HEMATOLOGY ORDERABLES Final R esult [facility] [address] [facility] , [place] [address] * (ABNORMAL) BASIC METABOLIC PANEL (12/08/2024 6:02 AM EDT) Sodium 137 136 - 145 mmol/L 12/08/2024 7:09 AM EDT [facility] Potassium 3.7 3.5 - 5.0 mmol/L 12/08/2024 7:09 AM EDT [facility] Chloride 104 98 - 107 mmol/L 12/08/2024 7:09 AM EDT [facility] Total CO2 21(L) 22 - 29 mmol/L 12/08/2024 7:09 AM EDT [facility] Anion Gap 12 7 - 16 mmol/L 12/08/2024 7:09 AM EDT [facility] Calcium 9.3 8.6 - 10.4 mg/dL 12/08/2024 7:09 AM EDT [facility] Glucose Lvl 105(H) 70 - 99 mg/dL 12/08/2024 7:09 AM EDT [facility] BUN 11 6 - 20 mg/dL 12/08/2024 7:09 AM EDT [facility] Creatinine 0.96 0.67 - 1.30 mg/dL 12/08/2024 7:09 AM EDT [facility] eGFR (CKD-EPIcr 2020) 96 >=60 mL/min/1.7 3 m2 12/08/2024 7:09 AM EDT [facility] Comment:Estimated GFR was ca lculated using the CKD-EPIcr (2020) equation refit without race. The equation is recommended by the National [employer] - [place] [employer]ph[employer] Task Force. Blood VENOUS BLOOD / Unknown Venipuncture / Unknown 12/08/2024 6:02 AM EDT 12/08/2024 6:34 AM EDT us Juana Shoemaker MD CHEMISTRY ORDERABLES Final Re sult [address], [place] [address] * ECG AND WAVEFORMS - TELEMETRY (12/07/2024 8:06 PM EDT) ECG INTERPRET NSR [facility] 12/07/2024 8:06 PM EDT Narrative [facility] - 12/07/2024 8:18 PM EDT ROUTINE (BS) AK 0.16 QRS 0.12 RR 0.65 QT 0.40 QTc 0.50 See Clinical Report link for waveform capture us Unknown Provider POINT OF CARE CARDIOLOGY Final Result [facility] [address] [place] [address] * FL CYSTOGRAM MINIMUM 3 VW (12/07/2024 11:31 AM EDT) Anatomical Region Laterality Modality Pelvis Radiographic Lorna ging 12/07/2024 11:3 1 AM EDT Impressions 12/07/2024 12:54 PM EDT There are 2 adjacent tubular shaped/ovoid foci of contrast adjacent to the left posterior aspect of the urinary bladder, in the expected region of recent left ureterectomy. Differential diagnosis includes contrast within postsurgical outpouchings versus foci of contained leak. No free-flowing extraluminal contrast extravasation is identified. - Note: Radiology results need to be interpreted within a comprehensive clinical context. If you have questions about the radiology report, please contact the office of the ordering clinician. Narrative 12/07/2024 12:54 PM EDT FL CYSTOGRAM MINIMUM 3 VW, 12/07/2024 11:31 AM CLINICAL HISTORY: -s/p radical nephroureterectomy, assess for healing/leak. Status post left nephroureterectomy with bladder cuff on 12/01/2024. COMPARISON: Abdomen and pelvis CT from 12/02/2024 PROCEDURE COMMENTS: The examination was performed by Rachna Eller physician , under the supervision of Dr. Singh. A total fluoroscopy time of 1.2 minutes was used. 119 fluoroscopic spot images were saved to PACS. FINDINGS: Via Bradford catheter, 175 mL of water-soluble contrast was instilled retrograde into the urinary bladder. Imaging was performed in multiple projections. Reactor Kettle Operator radiographs show a surgical drain over the left pelvis. Best appreciated on oblique images, there are 2 adjacent tubular shaped/ovoid foci of contrast adjacent to the left posterior aspect of the urinary bladder, in the expected region of recent left ureterectomy. These are circumscribed and do not change between images. Differential diagnosis includes contrast within postsurgical outpouchings versus sites of contained leak. No free-flowing extraluminal contrast extravasation is identified. Remainder of bladder contour is smooth and within normal limits. Procedure Note Emerson Singh MD - 12/07/2024 FL CYSTOGRAM MINIMUM 3 VW, 12/07/2024 11:31 AM CLINICAL HISTORY: -s/p radical nephroureterectomy, assess forhealing/leak. Status post left nephroureterectomy with bladder cuff on 12/01/2024. COMPARISON: Abdomen and pelvis CT from 12/02/2024 PROCEDURE COMMENTS: The examination was performed by Rachna Ellerphysician , under the supervision of Dr. Singh. A total fluoroscopy timeof 1.2 minutes was used. 119 fluoroscopic spot images were saved to PACS. FINDINGS: Via Bradford catheter, 175 mL of water-soluble contrast wasinstilled retrograde into the urinary bladder. Imaging was performed in multiple projections. Reactor Kettle Operator radiographs show a surgical drain over the left pelvis. Best appreciated on oblique images, there are 2 adjacent tubularshaped/ovoid foci of contrast adjacent to the left posterior aspect of the urinarybladder, in the expected region of recent left ureterectomy. These arecircumscribed and do not change between images. Differential diagnosis includes contrastwithin postsurgical outpouchings versus sites of contained leak. Nofree-flowing extraluminal contrast extravasation is identified. Remainder of bladdercontour is smooth and within normal limits. IMPRESSION: There are 2 adjacent tubular shaped/ovoid foci of contrast adjacent to theleft posterior aspect of the urinary bladder, in the expected region of recentleft ureterectomy. Differential diagnosis includes contrast withinpostsurgical outpouchings versus foci of contained leak. No free-flowing extraluminal contrast extravasation is identified. - Note: Radiology results need to be interpreted within a comprehensiveclinical context. If you have questions about the radiology report, please contactthe office of the ordering clinician. us Peace Rea APRN IMG FLUOROSCOPY ORDERABLE S Final Result * ECG AND WAVEFORMS - TELEMETRY (12/07/2024 10:12 AM EDT) [facility] ECG INTERPRET NSR [facility] 12/07/2024 10:1 2 AM EDT Narrative [facility] - 12/07/2024 10:20 AM EDT (DT)ROUTINE AK 0.15 QRS 0.09 RR 0.73 QT 0.37 QTc 0.43 See Clinical Report link for waveform capture us Unknown Provider POINT OF CARE CARDIOLOGY Final Result [facility] [address] [place] [address] * (ABNORMAL) CBC (12/07/2024 5:33 AM EDT) [facility] WBC 10.8(H) 3.7 - 10.3 x10(3)/mcL 12/07/2024 6:50 AM EDT [facility] RBC 3.23(L) 4.60 - 6.10 x10(6)/mcL 12/07/2024 6:50 AM EDT [facility] Hgb 9.7(L) 13.7 - 17.5 g/dL 12/07/2024 6:50 AM EDT [facility] Hct 29.6(L) 40.0 - 51.0 % 12/07/2024 6:50 AM EDT [facility] MCV 91.6 80.0 - 100.0 fL 12/07/2024 6:50 AM EDT [facility] MCH 30.0 26.0 - 34.0 pg 12/07/2024 6:50 AM EDT [facility] MCHC 32.8 30.7 - 35.5 g/dL 12/07/2024 6:50 AM EDT [facility] RDW 14.5 <=14.9 % 12/07/2024 6:50 AM EDT [facility] Platelet 301 155 - 369 x10(3)/[facility] 12/07/2024 6:50 AM EDT [facility] MPV 9.6 8.8 - 12.5 fL 12/07/2024 6:50 AM EDT [facility] Blood VENOUS BLOOD / Unknown Venipuncture / Unknown 12/07/2024 5:33 AM EDT 12/07/2024 6:37 AM EDT Sadi Haney MD HEMATOLOGY ORDERABLES Fin al Result [facility] [address] [facility] , [address] [place] [phone] * ECG AND WAVEFORMS - TELEMETRY (12/06/2024 11:04 PM EDT) ECG INTERPRET NSR [facility] 12/06/2024 11:0 4 PM EDT Narrative [facility] - 12/06/2024 11:37 PM EDT ROUTINE AK 0.13 QRS 0.12 RR 0.84 QT 0.40 QTc 0.43 See Clinical Report link for waveform capture us Unknown Provider POINT OF CARE CARDIOLOGY Final Result [facility] [address] [place], [place] [id number] * (ABNORMAL) C DIFF INTERPRETATION (12/06/2024 9:57 AM EDT) C Diff Toxin DNA Positive(A) Negative 12/06/2024 1:18 PM EDT [facility] NAP1 Presumptive Neg Presumptive Neg 12/06/2024 1:18 PM EDT [facility] GDH Antigen Positive(A) Negative 12/06/2024 1:18 PM EDT [facility] C diff toxin A/B Positive(A) Negative 12/06/2024 1:18 PM EDT [facility] Stool RECTUM STRUCTURE / Unknown Collection / Unknown 12/06/2024 9:57 AM EDT 12/06/2024 10:05 AM EDT Narrative [facility] - 12/06/2024 1:18 PM EDT Toxin producing C diff target DNA sequences detected. Toxins A/B positive. CDI likely. Consider initiation of severity-based CDI therapy according to CDI management guidance. us Brody LINDQUIST MICROBIOLOGY - GENERAL ORDERABLE S Final Result Performing Organization Address [facility]/ZIP Co de Phone Number [facility], [address] , [place] [address] * C DIFF GDH AG AND TOXIN A+B (12/06/2024 9:57 AM EDT) Stool RECTUM STRUCTURE / Unknown Collection / Unknown 12/06/2024 9:57 AM EDT 12/06/2024 10:05 AM EDT Brody LINDQUIST MICROBIOLOGY - GENERAL ORDERABLE S Final Result Performing Organization Address City/[facility]/ZIP Co de Phone Number [facility], [address] , [address] [place] [phone] * C DIFF TOXIN DNA (12/06/2024 9:57 AM EDT) Stool RECTUM STRUCTURE / Unknown Collection / Unknown 12/06/2024 9:57 AM EDT 12/06/2024 10:05 AM EDT Brody LINDQUIST MICROBIOLOGY - GENERAL ORDERABLE S Final Result Performing Organization Address [facility]/ZIP Co de Phone Number [facility] [address] [facility], [place] [address] * ECG AND WAVEFORMS - TELEMETRY (12/06/2024 7:01 AM EDT) Pathologist [facility] ECG INTERPRET NSR [facility] 12/06/2024 7:01 AM EDT Narrative [facility] - 12/06/2024 8:04 AM EDT (DT)ROUTINE AK 0.17 QRS 0.09 RR 0.78 QT 0.38 QTc 0.42 See Clinical Report link for waveform capture us Unknown Provider POINT OF CARE CARDIOLOGY Final Result Performing Organization Address City/[facility]/ZIP Co de Phone Number [facility] [address] [place] [address] * (ABNORMAL) CBC (12/06/2024 5:28 AM EDT) WBC 8.9 3.7 - 10.3 x10(3)/mcL 12/06/2024 6:35 AM EDT [facility] RBC 2.83(L) 4.60 - 6.10 x10(6)/mcL 12/06/2024 6:35 AM EDT [facility] Hgb 8.7(L) 13.7 - 17.5 g/dL 12/06/2024 6:35 AM EDT [facility] Hct 25.7(L) 40.0 - 51.0 % 12/06/2024 6:35 AM EDT [facility] MCV 90.8 80.0 - 100.0 fL 12/06/2024 6:35 AM EDT [facility] MCH 30.7 26.0 - 34.0 pg 12/06/2024 6:35 AM EDT [facility] MCHC 33.9 30.7 - 35.5 g/dL 12/06/2024 6:35 AM EDT [facility] RDW 14.4 <=14.9 % 12/06/2024 6:35 AM EDT [facility] Platelet 217 155 - 369 x10(3)/mcL 12/06/2024 6:35 AM EDT [facility] MPV 9.7 8.8 - 12.5 fL 12/06/2024 6:35 AM EDT [facility] Blood VENOUS BLOOD / Unknown Venipuncture / Unknown 12/06/2024 5:28 AM EDT 12/06/2024 6:23 AM EDT Sadi Haney MD HEMATOLOGY ORDERABLES Fin al Result Performing Organization Address City/[facility]/ZIP Co de Phone Number [facility], [address], [place] [address] * ECG AND WAVEFORMS - TELEMETRY (12/05/2024 7:00 PM EDT) Pathologist [facility] ECG INTERPRET Sinus Tachycardia [facility] 12/05/2024 7:00 PM EDT Narrative [facility] - 12/05/2024 9:36 PM EDT [place] 0.13 QRS 0.12 RR 0.55 QT 0.34 QTc 0.46 See Clinical Report link for waveform capture us Unknown Provider POINT OF CARE CARDIOLOGY Final Result [facility] [address] [place] [address] * (ABNORMAL) HEMOGLOBIN AND HEMATOCRIT (12/05/2024 12:22 PM EDT) Hgb 9.4(L) 13.7 - 17.5 g/dL 12/05/2024 1:04 PM EDT [facility] Hct 27.8(L) 40.0 - 51.0 % 12/05/2024 1:04 PM EDT [facility] Blood VENOUS BLOOD / Unknown Venipuncture / Unknown 12/05/2024 12:22 PM EDT 12/05/2024 12:27 PM EDT Juana Shoemaker MD HEMATOLOGY ORDERABLES Final R esult Performing Organization Address [facility]/ZIP Co de Phone Number [facility] [address] [facility], [place] [address] * ECG AND WAVEFORMS - TELEMETRY (12/05/2024 8:03 AM EDT) [facility] ECG INTERPRET NSR [facility] 12/05/2024 8:03 AM EDT Narrative [facility] - 12/05/2024 9:13 AM EDT [place] 0.14 QRS 0.08 RR 0.72 QT 0.36 QTc 0.42 See Clinical Report link for waveform capture us Unknown Provider POINT OF CARE CARDIOLOGY Final Result Performing Organization Address City/[facility] Co de Phone Number [facility] [address] [place] [address] * (ABNORMAL) CBC (12/05/2024 5:55 AM EDT) [facility] WBC 8.0 3.7 - 10.3 x10(3)/mcL 12/05/2024 7:34 AM EDT [facility] RBC 2.79(L) 4.60 - 6.10 x10(6)/mcL 12/05/2024 7:34 AM EDT [facility] Hgb 8.4(L) 13.7 - 17.5 g/dL 12/05/2024 7:34 AM EDT [facility] Hct 25.3(L) 40.0 - 51.0 % 12/05/2024 7:34 AM EDT [facility] MCV 90.7 80.0 - 100.0 fL 12/05/2024 7:34 AM EDT [facility] MCH 30.1 26.0 - 34.0 pg 12/05/2024 7:34 AM EDT [facility] MCHC 33.2 30.7 - 35.5 g/dL 12/05/2024 7:34 AM EDT [facility] RDW 14.2 <=14.9 % 12/05/2024 7:34 AM EDT [facility] Platelet 187 155 - 369 x10(3)/mcL 12/05/2024 7:34 AM EDT [facility] MPV 9.9 8.8 - 12.5 fL 12/05/2024 7:34 AM EDT [facility] Blood VENOUS BLOOD / Unknown Venipuncture / Unknown 12/05/2024 5:55 AM EDT 12/05/2024 7:05 AM EDT Sadi Haney MD HEMATOLOGY ORDERABLES Fin al Result Performing Organization Address City/[facility] Co de Phone Number [facility], [address] , [place] [address] * (ABNORMAL) HEMOGLOBIN AND HEMATOCRIT (12/04/2024 7:12 PM EDT) Hgb 8.9(L) 13.7 - 17.5 g/dL 12/04/2024 7:32 PM EDT [facility], [facility] Hct 26.5(L) 40.0 - 51.0 % 12/04/2024 7:32 PM EDT [facility] Blood VENOUS BLOOD / Unknown Venipuncture / Unknown 12/04/2024 7:12 PM EDT 12/04/2024 7:25 PM EDT us Sadi Haney MD HEMATOLOGY ORDERABLES Fin al Result Performing Organization Address City/[facility]/ZIP Co de Phone Number [facility], [address] , [place] [address] * ECG AND WAVEFORMS - TELEMETRY (12/04/2024 7:00 PM EDT) ECG INTERPRET NSR [facility] 12/04/2024 7:00 PM EDT Narrative [facility] - 12/05/2024 1:26 AM EDT ROUTINE(CW) AK 0.14 QRS 0.07 RR 0.77 QT 0.38 QTc 0.43 See Clinical Report link for waveform capture us Unknown Provider POINT OF CARE CARDIOLOGY Final Result Performing Organization Address [facility]/ZIP Co de Phone Number [facility] [address] [place] [address] * TRANSFUSE RED BLOOD CELLS (12/04/2024 3:25 PM EDT) [facility] [place] [facility] NURSING TREATMENT ORDERABLES - BLOOD ADMIN Edited Result - Final * TRANSFUSE RED BLOOD CELLS (12/04/2024 3:25 PM EDT) [facility] [place] [facility] NURSING TREATMENT ORDERABLES - BLOOD ADMIN Edited Result - Final * (ABNORMAL) HEMOGLOBIN AND HEMATOCRIT (12/04/2024 12:54 PM EDT) Pathologist [facility] Hgb 8.2(L) 13.7 - 17.5 g/dL 12/04/2024 1:13 PM EDT [facility] Hct 24.7(L) 40.0 - 51.0 % 12/04/2024 1:13 PM EDT [facility] Blood VENOUS BLOOD / Unknown Venipuncture / Unknown 12/04/2024 12:54 PM EDT 12/04/2024 1:06 PM EDT [facility] [place] [facility] HEMATOLOGY ORDERABLES Fin al Result Performing Organization Address City/[facility]/ZIP Co de Phone Number [facility] [address], [place] [address] * ECG AND WAVEFORMS - TELEMETRY (12/04/2024 7:56 AM EDT) Pathologist [facility] ECG INTERPRET NSR [facility] 12/04/2024 7:56 AM EDT Narrative [facility] - 12/04/2024 11:08 PM EDT ROUTINE//AC AK 0.14 QRS 0.11 RR 0.76 QT 0.39 QTc 0.45 See Clinical Report link for waveform capture us Unknown Provider POINT OF CARE CARDIOLOGY Final Result Performing Organization Address City/[facility]/ZIP Co de Phone Number [facility] [address] [place] [address] * ECG AND WAVEFORMS - TELEMETRY (12/04/2024 7:56 AM EDT) Pathologist [facility] ECG INTERPRET NSR [facility] 12/04/2024 7:56 AM EDT Narrative [facility] - 12/04/2024 8:01 AM EDT ROUTINE//AC AK 0.14 QRS 0.11 RR 0.76 QT 0.39 QTc 0.45 See Clinical Report link for waveform capture us Unknown Provider POINT OF CARE CARDIOLOGY Final Result Performing Organization Address [facility] Co de Phone Number [facility] [address] [place] [address] * (ABNORMAL) IRON+TIBC (12/04/2024 5:52 AM EDT) Iron 27(L) 50 - 170 mcg/dL 12/05/2024 12:26 PM EDT [facility] Transferrin 160(L) 200 - 360 mg/dL 12/05/2024 12:26 PM EDT [facility] Trans[employer]in Saturation 12(L) 20 - 50 % 12/05/2024 12:26 PM EDT [facility] TIBC 224(L) 250 - 400 mcg/dL 12/05/2024 12:26 PM EDT [facility] Blood VENOUS BLOOD / Unknown Venipuncture / Unknown 12/04/2024 5:52 AM EDT 12/04/2024 6:01 AM EDT us Juana Shoemaker MD CHEMISTRY ORDERABLES Final Re sult Performing Organization Address [facility]/ZIP Co de Phone Number [facility] [address] [facility] , [address] [place] [phone] * (ABNORMAL) BASIC METABOLIC PANEL (12/04/2024 5:52 AM EDT) Sodium 140 136 - 145 mmol/L 12/04/2024 6:38 AM EDT [facility] Potassium 3.9 3.5 - 5.0 mmol/L 12/04/2024 6:38 AM EDT [facility] Chloride 109(H) 98 - 107 mmol/L 12/04/2024 6:38 AM EDT [facility] Total CO2 23 22 - 29 mmol/L 12/04/2024 6:38 AM EDT [facility] Anion Gap 8 7 - 16 mmol/L 12/04/2024 6:38 AM EDT [facility] Calcium 8.3(L) 8.6 - 10.4 mg/dL 12/04/2024 6:38 AM EDT [facility] Glucose Lvl 93 70 - 99 mg/dL 12/04/2024 6:38 AM EDT [facility] BUN 9 6 - 20 mg/dL 12/04/2024 6:38 AM EDT [facility] Creatinine 1.07 0.67 - 1.30 mg/dL 12/04/2024 6:38 AM EDT [facility] eGFR (CKD-EPIcr 2020) 85 >=60 mL/min/1.7 3 m2 12/04/2024 6:38 AM EDT [facility] Comment:Estimated GFR was ca lculated using the CKD-EPIcr (2020) equation refit without race. The equation is recommended by the [employer] - [place] [employer]ph[employer] Task Force. Blood VENOUS BLOOD / Unknown Venipuncture / Unknown 12/04/2024 5:52 AM EDT 12/04/2024 6:01 AM EDT us Sadi Haney MD CHEMISTRY ORDERABLES Nadiya nichols Result [facility] [address] [facility] , [address] [place] [phone] * (ABNORMAL) CBC WITH DIFF (12/04/2024 5:52 AM EDT) WBC 6.5 3.7 - 10.3 x10(3)/mcL 12/04/2024 6:13 AM EDT [facility] RBC 2.42(L) 4.60 - 6.10 x10(6)/mcL 12/04/2024 6:13 AM EDT [facility] Hgb 7.3(L) 13.7 - 17.5 g/dL 12/04/2024 6:13 AM EDT [facility] Hct 21.5(L) 40.0 - 51.0 % 12/04/2024 6:13 AM EDT [facility] MCV 88.8 80.0 - 100.0 fL 12/04/2024 6:13 AM EDT [facility] MCH 30.2 26.0 - 34.0 pg 12/04/2024 6:13 AM EDT [facility] MCHC 34.0 30.7 - 35.5 g/dL 12/04/2024 6:13 AM EDT [facility] RDW 14.7 <=14.9 % 12/04/2024 6:13 AM EDT [facility] Platelet 145(L) 155 - 369 x10(3)/[facility] 12/04/2024 6:13 AM EDT [facility] MPV 9.3 8.8 - 12.5 fL 12/04/2024 6:13 AM EDT [facility] Neut Percent 63.2 % 12/04/2024 6:13 AM EDT [facility] Comment:Neutrophils equals s egs plus bands Imm Gran% 0.6 % 12/04/2024 6:13 AM EDT [facility] Comment:Automated count of m etamyelocytes, myelocytes and promyelocytes. Lymph Percent 22.9 % 12/04/2024 6:13 AM EDT [facility] Mineral Percent 10.4 % 12/04/2024 6:13 AM EDT [facility] Eos Percent 2.6 % 12/04/2024 6:13 AM EDT [facility] Baso Percent 0.3 % 12/04/2024 6:13 AM EDT [facility] Neut # 4.1 1.6 - 6.1 x10(3)/[facility] 12/04/2024 6:13 AM EDT [facility], [facility] Comment:Neutrophils equals s egs plus bands IMMGRAN# 0.0 0.0 - 0.1 x10(3)/[facility] 12/04/2024 6:13 AM EDT [facility], [facility] Comment:Automated count of m etamyelocytes, myelocytes and promyelocytes. An absolute IG <0.1 is reported as 0.0. Lymph # 1.5 1.2 - 3.9 x10(3)/[facility] 12/04/2024 6:13 AM EDT [facility] Mineral # 0.7 0.3 - 0.9 x10(3)/[facility] 12/04/2024 6:13 AM EDT [facility], [facility] Eos# 0.2 0.0 - 0.5 x10(3)/[facility] 12/04/2024 6:13 AM EDT [facility], [facility] Baso # 0.0 0.0 - 0.1 x10(3)/[facility] 12/04/2024 6:13 AM EDT [facility], [facility] Blood VENOUS BLOOD / Unknown Venipuncture / Unknown 12/04/2024 5:52 AM EDT 12/04/2024 6:01 AM EDT Sadi Haney MD HEMATOLOGY ORDERABLES Fin al Result Performing Organization Address City/[facility]/ZIP Co de Phone Number [facility], [address] , [place] [address] * ECG AND WAVEFORMS - TELEMETRY (12/03/2024 7:00 PM EDT) ECG INTERPRET NSR [facility] 12/03/2024 7:00 PM EDT Narrative [facility] - 12/03/2024 8:34 PM EDT ROUTINE(CW) AK 0.15 QRS 0.06 RR 0.60 QT 0.27 QTc 0.35 See Clinical Report link for waveform capture Unknown Provider POINT OF CARE CARDIOLOGY Final Result [facility] [address] [place] [id number] * (ABNORMAL) HEMOGLOBIN AND HEMATOCRIT (12/03/2024 10:44 AM EDT) Pathologist [facility] Hgb 7.9(L) 13.7 - 17.5 g/dL 12/03/2024 11:50 AM EDT [facility] Hct 23.7(L) 40.0 - 51.0 % 12/03/2024 11:50 AM EDT [facility] Blood VENOUS BLOOD / Unknown Venipuncture / Unknown 12/03/2024 10:44 AM EDT 12/03/2024 10:54 AM EDT us Meng Chen MD HEMATOLOGY ORDERABLES Final Res ult Performing Organization Address City/[facility]/ZIP Co de Phone Number [facility] [employer] [address], [place] [address] * ECG AND WAVEFORMS - TELEMETRY (12/03/2024 7:00 AM EDT) [facility] ECG INTERPRET NSR [facility] 12/03/2024 7:00 AM EDT Narrative [facility] - 12/03/2024 7:58 AM EDT [place] ROUTINE AK 0.14 QRS 0.09 RR 0.66 QT 0.35 See Clinical Report link for waveform capture us Unknown Provider POINT OF CARE CARDIOLOGY Final Result [facility] [address] [place] [address] * (ABNORMAL) HEMOGLOBIN AND HEMATOCRIT (12/03/2024 4:48 AM EDT) Hgb 8.0(L) 13.7 - 17.5 g/dL 12/03/2024 5:08 AM EDT [facility] Hct 24.4(L) 40.0 - 51.0 % 12/03/2024 5:08 AM EDT [facility] Blood VENOUS BLOOD / Unknown Venipuncture / Unknown 12/03/2024 4:48 AM EDT 12/03/2024 4:58 AM EDT Meng Chen MD HEMATOLOGY ORDERABLES Final Res ult Performing Organization Address [facility] Co de Phone Number [facility] [address] [place] [address] , [place] [address] * TRANSFUSE RED BLOOD CELLS (12/03/2024 4:00 AM EDT) Sadi Haney MD NURSING TREATMENT ORDERAB LES - BLOOD ADMIN Final Result * TRANSFUSE RED BLOOD CELLS (12/03/2024 4:00 AM EDT) Sadi Haney MD NURSING TREATMENT ORDERAB LES - BLOOD ADMIN Final Result * (ABNORMAL) TROPONIN-T HIGH SENSITIVITY 6 HR (12/03/2024 3:40 AM EDT) sr-zIcbsjahg-H 6HR 37(H) <22 ng/L 12/03/2024 4:43 AM EDT [facility] hs-cTnT 6Hr Delta from Baseline 11 <12 ng/L 12/03/2024 4:43 AM EDT [facility] Blood VENOUS BLOOD / Unknown Venipuncture / Unknown 12/03/2024 3:40 AM EDT 12/03/2024 4:11 AM EDT Narrative [facility] - 12/03/2024 4:43 AM EDT Ingestion of josé miguel doses of biotin (>5 mg/day) taken within 8 hours of drawing blood sample can interfere with this immunoassay test. Rachna Wood [facility] CHEMISTRY ORDERABLES Fin al Result Performing Organization Address [facility]/ZIP Co de Phone Number [facility] [address] [place] [address] , [place] [address] * (ABNORMAL) BASIC METABOLIC PANEL (12/03/2024 3:40 AM EDT) Sodium 142 136 - 145 mmol/L 12/03/2024 4:42 AM EDT [facility] Potassium 4.2 3.5 - 5.0 mmol/L 12/03/2024 4:42 AM EDT [facility], [facility] Chloride 111(H) 98 - 107 mmol/L 12/03/2024 4:42 AM EDT [facility], [facility] Total CO2 21(L) 22 - 29 mmol/L 12/03/2024 4:42 AM EDT [facility], [facility] Anion Gap 10 7 - 16 mmol/L 12/03/2024 4:42 AM EDT [facility], [facility] Calcium 8.1(L) 8.6 - 10.4 mg/dL 12/03/2024 4:42 AM EDT [facility], [facility] Glucose Lvl 105(H) 70 - 99 mg/dL 12/03/2024 4:42 AM EDT [facility], [facility] BUN 15 6 - 20 mg/dL 12/03/2024 4:42 AM EDT [facility], [facility] Creatinine 1.25 0.67 - 1.30 mg/dL 12/03/2024 4:42 AM EDT [facility], [facility] eGFR (CKD-EPIcr 2020) 70 >=60 mL/min/1.7 3 m2 12/03/2024 4:42 AM EDT [facility], [facility] Comment:Estimated GFR was ca lculated using the CKD-EPIcr (2020) equation refit without race. The equation is recommended by the National Kid[employer] - [place] [employer] Neph[employer] Task Force. Blood VENOUS BLOOD / Unknown Venipuncture / Unknown 12/03/2024 3:40 AM EDT 12/03/2024 4:11 AM EDT us Sadi Haney MD CHEMISTRY ORDERABLES Nadiya nichols Result [facility] [address] [facility] , [place] [address] * (ABNORMAL) CBC WITH DIFF (12/03/2024 3:40 AM EDT) WBC 9.5 3.7 - 10.3 x10(3)/mcL 12/03/2024 4:22 AM EDT [facility] RBC 2.67(L) 4.60 - 6.10 x10(6)/mcL 12/03/2024 4:22 AM EDT [facility] Hgb 8.1(L) 13.7 - 17.5 g/dL 12/03/2024 4:22 AM EDT [facility] Hct 24.1(L) 40.0 - 51.0 % 12/03/2024 4:22 AM EDT [facility] MCV 90.3 80.0 - 100.0 fL 12/03/2024 4:22 AM EDT [facility] MCH 30.3 26.0 - 34.0 pg 12/03/2024 4:22 AM EDT [facility] MCHC 33.6 30.7 - 35.5 g/dL 12/03/2024 4:22 AM EDT [facility] RDW 14.5 <=14.9 % 12/03/2024 4:22 AM EDT [facility] Platelet 169 155 - 369 x10(3)/mcL 12/03/2024 4:22 AM EDT [facility] MPV 9.6 8.8 - 12.5 fL 12/03/2024 4:22 AM EDT [facility] Neut Percent 70.7 % 12/03/2024 4:22 AM EDT [facility] Comment:Neutrophils equals s egs plus bands Imm Gran% 0.4 % 12/03/2024 4:22 AM EDT [facility] Comment:Automated count of m etamyelocytes, myelocytes and promyelocytes. Lymph Percent 16.6 % 12/03/2024 4:22 AM EDT [facility] Mineral Percent 11.5 % 12/03/2024 4:22 AM EDT [facility] Eos Percent 0.6 % 12/03/2024 4:22 AM EDT [facility] Baso Percent 0.2 % 12/03/2024 4:22 AM EDT [facility] Neut # 6.7(H) 1.6 - 6.1 x10(3)/mcL 12/03/2024 4:22 AM EDT [facility] Comment:Neutrophils equals s egs plus bands IMMGRAN# 0.0 0.0 - 0.1 x10(3)/[facility] 12/03/2024 4:22 AM EDT [facility] Comment:Automated count of m etamyelocytes, myelocytes and promyelocytes. An absolute IG <0.1 is reported as 0.0. Lymph # 1.6 1.2 - 3.9 x10(3)/[facility] 12/03/2024 4:22 AM EDT [facility] Mineral # 1.1(H) 0.3 - 0.9 x10(3)/[facility] 12/03/2024 4:22 AM EDT [facility], [facility] Eos# 0.1 0.0 - 0.5 x10(3)/[facility] 12/03/2024 4:22 AM EDT [facility], [facility] Baso # 0.0 0.0 - 0.1 x10(3)/[facility] 12/03/2024 4:22 AM EDT [facility] Blood VENOUS BLOOD / Unknown Venipuncture / Unknown 12/03/2024 3:40 AM EDT 12/03/2024 4:11 AM EDT us Sadi Haney MD HEMATOLOGY ORDERABLES Fin al Result [facility] [address] [facility] , [place] [address] * TRANSFUSE RED BLOOD CELLS (12/03/2024 1:03 AM EDT) us Sadi Haney MD NURSING TREATMENT ORDERAB LES - BLOOD ADMIN Final Result * TRANSFUSE RED BLOOD CELLS (12/03/2024 1:03 AM EDT) us Sadi Haney MD NURSING TREATMENT ORDERAB LES - BLOOD ADMIN Final Result * (ABNORMAL) TROPONIN-T HIGH SENSITIVITY 2HR (12/02/2024 10:14 PM EDT) [facility] hr-oSllkznpg-R 2HR 33(H) <22 ng/L 12/02/2024 11:02 PM EDT [facility] hs-cTnT 2Hr Delta from Baseline 7(H) <4 ng/L 12/02/2024 11:02 PM EDT [facility] Blood VENOUS BLOOD / Unknown Venipuncture / Unknown 12/02/2024 10:14 PM EDT 12/02/2024 10:33 PM EDT Narrative [facility] - 12/02/2024 11:02 PM EDT Ingestion of josé miguel doses of biotin (>5 mg/day) taken within 8 hours of drawing blood sample can interfere with this immunoassay test. us Rachna Wood [employer] CHEMISTRY ORDERABLES Fin al Result [facility] [employer] [address] [facility] , [address] [place] [id number] * CT ABDOMEN PELVIS W CONTRAST (12/02/2024 8:21 PM EDT) Anatomical Region Laterality Modality Abdomen, Chest, Pelvis, Hip Comp uted Tomography 12/02/2024 8:21 PM EDT Impressions 12/02/2024 8:33 PM EDT Status post left nephrectomy. Small to moderate amount of retroperitoneal fluid/hemorrhage noted. Narrative 12/02/2024 8:[address] ABDOMEN AND PELVIS WITH CONTRAST, 12/02/2024 8:21 PM CLINICAL HISTORY: Postoperative anemia. Evaluate for bleed. COMPARISON: CT abdomen/pelvis 10/19/2024. PROCEDURE COMMENTS: Multidetector volumetric scanning of the abdomen and pelvis with multiplanar reformatting. Iodinated contrast injected intravenously as documented in Epic along with radiodense GI contrast. Automated exposure control for dose reduction was used. FINDINGS: LOWER CHEST: Small left pleural effusion and bibasilar atelectasis. ABDOMEN & PELVIS: Gas tracking throughout the anterior and left lateral abdominal wall soft tissues likely relates to recent surgery. There is a small amount of scattered pneumoperitoneum. A left lateral approach drainage catheter terminates in the left nephrectomy bed. There is a small to moderate amount of hyperattenuating fluid tracking in the left retroperitoneum with a small amount on the right. No active extravasation is evident. The liver, gallbladder, spleen, pancreas, and adrenal glands are unremarkable. The right kidney enhances normally with no hydronephrosis. The left kidney and ureter are surgically absent. The bladder is collapsed with a Bradford catheter in place. A small amount of gas in the bladder likely relates to catheterization. The bowel is normal in caliber, including the appendix, without evidence of obstruction or an acute inflammatory process. There is no lymphadenopathy or acute osseous abnormality. Procedure Note Brody Jeronimo MD - 12/02/2024 CT ABDOMEN AND PELVIS WITH CONTRAST, 12/02/2024 8:21 PM CLINICAL HISTORY: Postoperative anemia. Evaluate for bleed. COMPARISON: CT abdomen/pelvis 10/19/2024. PROCEDURE COMMENTS: Multidetector volumetric scanning of the abdomen andpelvis with multiplanar reformatting. Iodinated contrast injected intravenouslyas documented in Epic along with radiodense GI contrast. Automated exposurecontrol for dose reduction was used. FINDINGS: LOWER CHEST: Small left pleural effusion and bibasilar atelectasis. ABDOMEN & PELVIS: Gas tracking throughout the anterior and left lateral abdominal wallsoft tissues likely relates to recent surgery. There is a small amount ofscattered pneumoperitoneum. A left lateral approach drainage catheter terminates inthe left nephrectomy bed. There is a small to moderate amount ofhyperattenuating fluid tracking in the left retroperitoneum with a small amount on theright. No active extravasation is evident. The liver, gallbladder, spleen, pancreas, and adrenal glands areunremarkable. The right kidney enhances normally with no hydronephrosis. The left kidneyand ureter are surgically absent. The bladder is collapsed with a Foleycatheter in place. A small amount of gas in the bladder likely relates tocatheterization. The bowel is normal in caliber, including the appendix, without evidenceof obstruction or an acute inflammatory process. There is no lymphadenopathy or acute osseous abnormality. IMPRESSION: Status post left nephrectomy. Small to moderate amount ofretroperitoneal fluid/hemorrhage noted. Sadi Haney MD IMG CT ORDERABLES Final R esult * (ABNORMAL) TROPONIN-T HIGH SENSITIVITY BASELINE W/ REFLEX (12/02/2024 7:34 PM EDT) lm-uAovzkibw-I 26(H) <22 ng/L 12/02/2024 8:05 PM EDT [facility] Blood VENOUS BLOOD / Unknown Venipuncture / Unknown 12/02/2024 7:34 PM EDT 12/02/2024 7:37 PM EDT Narrative [facility] - 12/02/2024 8:05 PM EDT Ingestion of josé miguel doses of biotin (>5 mg/day) taken within 8 hours of drawing blood sample can interfere with this immunoassay test. us Rachna Wood OVEN DAUBER CHEMISTRY ORDERABLES Fin al Result [facility] [address] [facility] , [place] [address] * EK EKG 12 LEAD (12/02/2024 7:13 PM EDT) Anatomical Region Laterality Modality Electrocardiogra phy 12/02/2024 7:21 PM EDT Impressions 12/03/2024 11:[address] Test Date: 2024-12-02 Pat Name: ALEX HOFFMAN Department: DEPID Room: [facility] Gender: Male Cloth Tearer: As : 1975 Requested By: RACHNA Gutierrez Order Number: [id number] Reading MD: Edelmira Ramsey DO Measurements Intervals [place] Rate: 123 P: 131 AK: 167 QRS: 1 QRSD: 90 T: 72 QT: 319 QTc: 457 Interpretive Statements SINUS TACHYCARDIA NONSPECIFIC ST & T-WAVE ABNORMALITY ABNORMAL RHYTHM ECG Electronically Signed On 12-03-2024 11:25:42 EDT by Edelmira Ramsey DO Narrative Procedure Note Edelmira Ramsey DO - 12/03/[address] Test Date: 2024-12-02 Pat Name: ALEX HOFFMAN Department: DEPID Room: [facility] Gender: Male Cloth Tearer: As : 1975 Requested By: RACHNA Gutierrez Order Number: [id number] Reading MD: Edelmira Ramsey DO Measurements Intervals [place] Rate: 123 P: 131 AK: 167 QRS: 1 QRSD: 90 T: 72 QT: 319 QTc: 457 Interpretive Statements SINUS TACHYCARDIA NONSPECIFIC ST & T-WAVE ABNORMALITY ABNORMAL RHYTHM ECG Electronically Signed On 12-03-2024 11:25:42 EDT by Edelmira Rmasey DO Rachnamady Wood OVEN DAUBER IMG ECG ORDERABLES Final Result * ECG AND WAVEFORMS - TELEMETRY (12/02/2024 7:00 PM EDT) [facility] ECG INTERPRET Sinus Tachycardia [facility] 12/02/2024 7:00 PM EDT Narrative [facility] - 12/02/2024 7:47 PM EDT ROUTINE(CW) AK 0.10 QRS 0.05 RR 0.40 QT 0.27 QTc 0.43 See Clinical Report link for waveform capture us Unknown Provider POINT OF CARE CARDIOLOGY Final Result Performing Organization Address [facility] Co de Phone Number [facility] [address] [place], [place] [phone] * (ABNORMAL) HEMOGLOBIN AND HEMATOCRIT (12/02/2024 6:17 PM EDT) [facility] Hgb 7.5(L) 13.7 - 17.5 g/dL 12/02/2024 6:54 PM EDT [facility] Hct 22.9(L) 40.0 - 51.0 % 12/02/2024 6:54 PM EDT [facility] Blood VENOUS BLOOD / Unknown Venipuncture / Unknown 12/02/2024 6:17 PM EDT 12/02/2024 6:25 PM EDT us Meng Chen MD HEMATOLOGY ORDERABLES Final Res ult Performing Organization Address City/[facility]/ZIP Co de Phone Number [id number] [address] [place] [address], [place] [address] * REPEAT LACTIC ACID (12/02/2024 6:17 PM EDT) [facility] Lactic Acid 1.6 0.5 - 1.9 mmol/L 12/02/2024 6:44 PM EDT [facility] Blood VENOUS BLOOD / Unknown Venipuncture / Unknown 12/02/2024 6:17 PM EDT 12/02/2024 6:25 PM EDT Meng Chen MD CHEMISTRY ORDERABLES Final Resu lt Performing Organization Address City/[facility]/ZIP Co de Phone Number [facility] [address] , [address] [place] [phone] * (ABNORMAL) REPEAT LACTIC ACID (12/02/2024 3:49 PM EDT) Lactic Acid 2.9(H) 0.5 - 1.9 mmol/L 12/02/2024 4:29 PM EDT [facility] Blood VENOUS BLOOD / Unknown Venipuncture / Unknown 12/02/2024 3:49 PM EDT 12/02/2024 3:55 PM EDT Meng Chen MD CHEMISTRY ORDERABLES Final Resu lt Performing Organization Address [facility] Co de Phone Number [facility] [address] [facility] , [place] [phone] * ECG AND WAVEFORMS - TELEMETRY (12/02/2024 3:11 PM EDT) ECG INTERPRET Sinus Tachycardia [facility] Comment:MD notified 12/02/2024 3:11 PM EDT Narrative [facility] - 12/02/2024 3:13 PM EDT [place] ROUTINE See Clinical Report link for waveform capture us Unknown Provider POINT OF CARE CARDIOLOGY Final Result Performing Organization Address City/[facility] Co de Phone Number [facility] [address] [place] [address] * (ABNORMAL) LACTIC ACID (12/02/2024 1:42 PM EDT) Lactic Acid 3.2(H) 0.5 - 1.9 mmol/L 12/02/2024 2:16 PM EDT [facility] Blood VENOUS BLOOD / Unknown Venipuncture / Unknown 12/02/2024 1:42 PM EDT 12/02/2024 1:52 PM EDT Meng Chen MD CHEMISTRY ORDERABLES Final Resu lt Performing Organization Address [facility] Co de Phone Number [facility] [address] , [address] [place] [phone] * BLOOD CULTURE (NO STAIN) (12/02/2024 1:42 PM EDT) Culture Result No Growth at 120 hours. BLOOD CULTURE (NO STAIN) 12/07/2024 3:00 PM EDT [facility] Blood VENOUS BLOOD / Unknown Venipuncture / Unknown 12/02/2024 1:42 PM EDT 12/02/2024 1:53 PM EDT Meng Chen MD MICROBIOLOGY - GENERAL ORDERABL ES Final Result Performing Organization Address [facility] de Phone Number [facility] [address] [facility] , [place] [address] * ECG AND WAVEFORMS - TELEMETRY (12/02/2024 12:27 PM EDT) ECG INTERPRET Sinus Tachycardia [facility] Comment:aysmptomatic on asse ssment 12/02/2024 12:2 7 PM EDT Narrative [facility] - 12/02/2024 12:50 PM EDT [place] ROUTINE AK 0.13 QRS 0.10 RR 0.50 QT 0.32 See Clinical Report link for waveform capture Unknown Provider POINT OF CARE CARDIOLOGY Final Result Performing Organization Address [facility] Co de Phone Number [facility] [address] [place] [address] * (ABNORMAL) REPEAT LACTIC ACID (12/02/2024 10:59 AM EDT) Lactic Acid 2.8(H) 0.5 - 1.9 mmol/L 12/02/2024 11:16 AM EDT [facility] Blood VENOUS BLOOD / Unknown Venipuncture / Unknown 12/02/2024 10:59 AM EDT 12/02/2024 10:59 AM EDT Sundar Kessler APRN CHEMISTRY ORDERABLES Final Result Performing Organization Address City/[facility]/ZIP Co de Phone Number [facility] [address] [place] [address] * URINE CULTURE (NO STAIN) (12/02/2024 10:53 AM EDT) Pathologist [facility] Culture No growth at 30 hours. 12/04/2024 6:38 AM EDT [facility] Urine URINARY BLADDER STRUCTURE / Unknown 12/02/2024 10:53 AM EDT 12/02/2024 11:12 AM EDT Sundar Kessler APRN MICROBIOLOGY - GENER AL ORDERABLES Final Result Performing Organization Address [facility] de Phone Number [id number] [address] [place] [address], [place] [address] * EXTRA SWENSON URINE CX (12/02/2024 10:53 AM EDT) Urine URINE SPECIMEN OBTAINED VIA INDWELLING URINARY CATHETER / Unknown 12/02/2024 10:53 AM EDT 12/02/2024 10:59 AM EDT Sundar Kessler APRN MICROBIOLOGY - GENER AL ORDERABLES Final Result Performing Organization Address [facility] Co de Phone Number [facility] [address] [place] [address] * (ABNORMAL) URINALYSIS REFLEX (12/02/2024 10:53 AM EDT) UA Color Red 12/02/2024 11:12 AM EDT [facility] UA Appear Cloudy(A) Clear 12/02/2024 11:12 AM EDT [facility] UA Glucose Negative Negative mg/dL 12/02/2024 11:12 AM EDT [facility] UA Ketones Negative Negative mg/dL 12/02/2024 11:12 AM EDT [facility] UA Blood 3+ (1.0 mg/dL)(A) Negative 12/02/2024 11:12 AM EDT [facility] UA pH 6.0 5.0 - 8.0 pH 12/02/2024 11:12 AM EDT [facility] UA Protein 1+ (30 mg/dL)(A) Negative mg/dL 12/02/2024 11:12 AM EDT [facility] UA Urobilinogen Normal <=1 mg/dL 11:12 AM EDT [facility] UA Bili Negative Negative 12/02/2024 11:12 AM EDT [facility] UA Nitrite Negative Negative 12/02/2024 11:12 AM EDT [facility] UA Leuk Est 3+ (250 Charlene/mcl)(A) Negative 12/02/2024 11:12 AM EDT [facility] UA Spec Grav 1.025 1.001 - 1.035 no units 12/02/2024 11:12 AM EDT [facility] Comment:Reference range jc d for random specimens only. UA WBC 28(H) 0 - 4 /HPF 12/02/2024 11:12 AM EDT [facility] UA RBC >182(H) 0 - 3 /HPF 12/02/2024 11:12 AM EDT [facility] UA Squam Epi 1+ /LPF 12/02/2024 11:12 AM EDT [facility] UA Bacteria 1+(A) Negative /HPF 12/02/2024 11:12 AM EDT [facility] Urine URINARY BLADDER STRUCTURE / Unknown 12/02/2024 10:53 AM EDT 12/02/2024 10:59 AM EDT Sundar Kessler OVEN DAUBER URINE ORDERABLES Fin al Result [facility] [address] , [place] [address] * BLOOD CULTURE (NO STAIN) (12/02/2024 10:51 AM EDT) Culture Result No Growth at 120 hours. BLOOD CULTURE (NO STAIN) 12/07/2024 1:00 PM EDT [facility] Blood VENOUS BLOOD / Unknown Venipuncture / Unknown 12/02/2024 10:51 AM EDT 12/02/2024 10:51 AM EDT us Meng Chen MD MICROBIOLOGY - GENERAL ORDERABL ES Final Result Performing Organization Address [facility] Co de Phone Number [employer] [address] , [place] [address] * XR CHEST AP PORTABLE (12/02/2024 9:55 AM EDT) Anatomical Region Laterality Modality Chest Radiographic Lorna ging 12/02/2024 9:55 AM EDT Impressions 12/02/2024 10:19 AM EDT There is a right middle lobe pneumonia. A short-term follow-up PA and lateral chest x-ray is recommended in 2-3 weeks to document resolution of the finding. - Note: Radiology results need to be interpreted within a comprehensive clinical context. If you have questions about the radiology report, please contact the office of the ordering clinician. Narrative 12/02/2024 10:19 AM EDT XR CHEST AP PORTABLE, 12/02/2024 9:55 AM CLINICAL HISTORY: -SOB COMPARISON: 11/07/2024. PROCEDURE COMMENTS: AP portable technique. FINDINGS: Support devices: No visible support devices. The left lung is clear. There is airspace opacity in right middle lobe there is no pneumothorax. The heart and mediastinal contours are normal. There is no acute osseous findings in the chest. Procedure Note Betsy Desai MD - 12/02/2024 XR CHEST AP PORTABLE, 12/02/2024 9:55 AM CLINICAL HISTORY: -SOB COMPARISON: 11/07/2024. PROCEDURE COMMENTS: AP portable technique. FINDINGS: Support devices: No visible support devices. The left lung is clear. There is airspace opacity in right middle lobethere is no pneumothorax. The heart and mediastinal contours are normal. There isno acute osseous findings in the chest. IMPRESSION: There is a right middle lobe pneumonia. A short-term follow-up PA and lateral chest x-ray is recommended in 2-3 weeks to document resolutionof the finding. - Note: Radiology results need to be interpreted within a comprehensiveclinical context. If you have questions about the radiology report, please contactthe office of the ordering clinician. Meng Chen MD IMG DIAGNOSTIC IMAGING ORDERABL ES Final Result * (ABNORMAL) HEMOGLOBIN AND HEMATOCRIT (12/02/2024 9:22 AM EDT) Hgb 8.1(L) 13.7 - 17.5 g/dL 12/02/2024 10:12 AM EDT [facility] Hct 24.7(L) 40.0 - 51.0 % 12/02/2024 10:12 AM EDT [facility] Blood VENOUS BLOOD / Unknown Venipuncture / Unknown 12/02/2024 9:22 AM EDT 12/02/2024 9:48 AM EDT Peace Rea OVEN DAUBER HEMATOLOGY ORDERABLES Fin al Result [facility] [address] [place] [address] , [place] [address] * (ABNORMAL) REPEAT LACTIC ACID (12/02/2024 9:22 AM EDT) Lactic Acid 2.3(H) 0.5 - 1.9 mmol/L 12/02/2024 10:00 AM EDT [facility] Blood VENOUS BLOOD / Unknown Venipuncture / Unknown 12/02/2024 9:22 AM EDT 12/02/2024 9:46 AM EDT Sundar Kessler OVEN DAUBER CHEMISTRY ORDERABLES Final Result Performing Organization Address [facility] Co de Phone Number [facility] [address] [place] [address] * (ABNORMAL) TROPONIN-T HIGH SENSITIVITY 2HR (12/02/2024 9:22 AM EDT) ox-cPblzyjug-V 2HR 26(H) <22 ng/L 12/02/2024 10:04 AM EDT [facility] hs-cTnT 2Hr Delta from Baseline -1 <4 ng/L 12/02/2024 10:[address] [facility] Blood VENOUS BLOOD / Unknown Venipuncture / Unknown 12/02/2024 9:22 AM EDT 12/02/2024 9:46 AM EDT Narrative [facility] - 12/02/2024 10:04 AM EDT Ingestion of josé miguel doses of biotin (>5 mg/day) taken within 8 hours of drawing blood sample can interfere with this immunoassay test. Sundar Kessler APRN CHEMISTRY ORDERABLES Final Result Performing Organization Address [facility] [place] [address] * (ABNORMAL) TROPONIN-T HIGH SENSITIVITY BASELINE W/ REFLEX (12/02/2024 7:08 AM EDT) nb-iEivfqckg-N 27(H) <22 ng/L 12/02/2024 7:42 AM EDT [facility] [employer] [employer] Blood VENOUS BLOOD / Unknown Venipuncture / Unknown 12/02/2024 7:08 AM EDT 12/02/2024 7:14 AM EDT Narrative [employer] - 12/02/2024 7:42 AM EDT Ingestion of josé miguel doses of biotin (>5 mg/day) taken within 8 hours of drawing blood sample can interfere with this immunoassay test. Sundar Kessler APRN CHEMISTRY ORDERABLES Final Result [facility] [address] [facility] , [address] [place], [place] [phone] * (ABNORMAL) REPEAT LACTIC ACID (12/02/2024 7:08 AM EDT) Lactic Acid 3.1(H) 0.5 - 1.9 mmol/L 12/02/2024 7:35 AM EDT [facility] Blood VENOUS BLOOD / Unknown Venipuncture / Unknown 12/02/2024 7:08 AM EDT 12/02/2024 7:15 AM EDT us Sundar Kessler APRN CHEMISTRY ORDERABLES Final Result [facility] [address] [facility] , [place] [address] * EK EKG 12 LEAD (12/02/2024 7:01 AM EDT) Anatomical Region Laterality Modality Electrocardiogra phy 12/02/2024 7:17 AM EDT Impressions 12/02/2024 1:[address] [facility] Test Date: 2024-12-02 Pat Name: ALEX HOFFMAN Department: DEPID Room: [facility] Gender: Male Cloth Tearer: Murray : 1975 Requested By: SUNDAR MELTON Order Number: [id number] Reading MD: Forrest Johnston MD Measurements Intervals [place] Rate: 92 P: 46 AK: 132 QRS: 13 QRSD: 85 T: 33 QT: 367 QTc: 454 Interpretive Statements SINUS RHYTHM Electronically Signed On 12-02-2024 13:57:21 EDT by Forrest Johnston MD Narrative Procedure Note Forrest Johnston MD - 12/02/[address] [facility] Test Date: 2024-12-02 Pat Name: ALEXLeeann HOFFMAN Department: DEPID Room: 7308 Gender: Male Cloth Tearer: Murray : 1975 Requested By: SUNDAR HEARNJACKLYNLeeann Order Number: [id number] Reading MD: Forrest Johnston MD Measurements Intervals [place] Rate: 92 P: 46 AK: 132 QRS: 13 QRSD: 85 T: 33 QT: 367 QTc: 454 Interpretive Statements SINUS RHYTHM Electronically Signed On 12-02-2024 13:57:21 EDT by Forrest Johnston MD us Sundar Melton Victoria ROMO IMG ECG ORDERABLES F inal Result * (ABNORMAL) PROCALCITONIN (12/02/2024 5:05 AM EDT) Procalcitonin 0.62(H) <=0.49 ng/mL 12/02/2024 5:52 AM EDT [facility] Blood VENOUS BLOOD / Unknown Venipuncture / Unknown 12/02/2024 5:05 AM EDT 12/02/2024 5:11 AM EDT Narrative [facility] - 12/02/2024 5:52 AM EDT Procalcitonin <0.50 ng/mL: Procalcitonin levels below 0.50 ng/mL on the first day of ICU admission represent a low risk for progression to severe sepsis and/or septic shock Procalcitonin >=0.50 ng/mL and <=2.00 ng/mL: If the procalcitonin measurement is performed shortly after the systemic infection process has started (usually less than 6 hours), this value may still be low. As various non-infectious conditions are known to induce procalcitonin as well, procalcitonin levels between 0.50 ng/mL and 2.00 ng/mL should be reviewed carefully to take into account the specific clinical background and condition(s) of the patient. Procalcitonin >2.00 ng/mL: Procalcitonin levels above 2.00 ng/mL on the first day of ICU admission represent a high risk for progression to severe sepsis and/or septic shock. us Sundar Kessler APRN CHEMISTRY ORDERABLES Final Result [facility] [address] [place] [address] , [place] [address] * (ABNORMAL) LACTIC ACID (12/02/2024 5:04 AM EDT) Pathologist [facility] Lactic Acid 3.5(H) 0.5 - 1.9 mmol/L 12/02/2024 5:31 AM EDT [facility] Blood VENOUS BLOOD / Unknown Venipuncture / Unknown 12/02/2024 5:04 AM EDT 12/02/2024 5:11 AM EDT Sundar Zhun Victoria DEMETRIUS CHEMISTRY ORDERABLES Final Result Performing Organization Address [facility]/ZIP Co de Phone Number [facility] [employer] [address] , [place] [address] * CREATININE BODY FLUID (12/02/2024 4:12 AM EDT) Pathologist [facility] Creatinine BF 1.15 0.67 - 1.30 mg/dL 12/02/2024 5:03 AM EDT [facility] Body Fluid ABDOMEN / Unknown Collection / Unknown 12/02/2024 4:12 AM EDT 12/02/2024 4:29 AM EDT Narrative [facility] - 12/02/2024 5:03 AM EDT A reference interval for this test has not been established for body fluid specimens. The reference range listed reflects normal concentration of this analyte in blood. Sadi Haney MD BODY FLUIDS AND STOOLS OR DERABLES Final Result Performing Organization Address City/[facility]/ZIP Co de Phone Number [facility] [address] [facility] , [place] [address] * (ABNORMAL) CBC WITH DIFF (12/02/2024 3:47 AM EDT) Pathologist [facility] WBC 21.8(H) 3.7 - 10.3 x10(3)/mc L 12/02/2024 4:21 AM EDT [facility] RBC 3.37(L) 4.60 - 6.10 x10(6)/mc L 12/02/2024 4:21 AM EDT [facility] Hgb 10.2(L) 13.7 - 17.5 g/dL 12/02/2024 4:21 AM EDT [facility] Hct 30.8(L) 40.0 - 51.0 % 12/02/2024 4:21 AM EDT [facility] MCV 91.4 80.0 - 100.0 fL 12/02/2024 4:21 AM EDT [facility] MCH 30.3 26.0 - 34.0 pg 12/02/2024 4:21 AM EDT [facility] MCHC 33.1 30.7 - 35.5 g/dL 12/02/2024 4:21 AM EDT [facility] RDW 13.9 <=14.9 % 12/02/2024 4:21 AM EDT [facility] Platelet 389(H) 155 - 369 x10(3)/mc L 12/02/2024 4:21 AM EDT [facility] MPV 9.7 8.8 - 12.5 fL 12/02/2024 4:21 AM EDT [facility] Neut Percent 82.1 % 12/02/2024 4:21 AM EDT [facility] Comment:Neutrophils equals s egs plus bands Imm Gran% 0.7 % 12/02/2024 4:21 AM EDT [facility] Comment:Automated count of m etamyelocytes, myelocytes and promyelocytes. Lymph Percent 6.6 % 12/02/2024 4:21 AM EDT [facility] Mineral Percent 10.4 % 12/02/2024 4:21 AM EDT [facility] Eos Percent 0.1 % 12/02/2024 4:21 AM EDT [facility] Baso Percent 0.1 % 12/02/2024 4:21 AM EDT [facility] Neut # 17.9(H) 1.6 - 6.1 x10(3)/mc L 12/02/2024 4:21 AM EDT [facility] Comment:Neutrophils equals s egs plus bands IMMGRAN# 0.2(H) 0.0 - 0.1 x10(3)/mc L 12/02/2024 4:21 AM EDT [facility], [facility] Comment:Automated count of m etamyelocytes, myelocytes and promyelocytes. An absolute IG <0.1 is reported as 0.0. Lymph # 1.4 1.2 - 3.9 x10(3)/mc L 12/02/2024 4:21 AM EDT [facility] Mineral # 2.3(H) 0.3 - 0.9 x10(3)/mc L 12/02/2024 4:21 AM EDT [facility] Eos# 0.0 0.0 - 0.5 x10(3)/mc L 12/02/2024 4:21 AM EDT [facility] Baso # 0.0 0.0 - 0.1 x10(3)/mc L 12/02/2024 4:21 AM EDT [facility], [facility] RBC Morph Consistent with Red Cell Indices no units 12/02/2024 4:21 AM EDT [facility], [facility] Blood VENOUS BLOOD / Unknown Venipuncture / Unknown 12/02/2024 3:47 AM EDT 12/02/2024 3:50 AM EDT Sadi Haney MD HEMATOLOGY ORDERABLES Fin al Result [facility], [facility] [address] [facility] , [place] [address] * (ABNORMAL) BASIC METABOLIC PANEL (12/02/2024 3:46 AM EDT) Pathologist [facility] Sodium 136 136 - 145 mmol/L 12/02/2024 4:07 AM EDT [facility] Potassium 4.8 3.5 - 5.0 mmol/L 12/02/2024 4:07 AM EDT [facility] Chloride 103 98 - 107 mmol/L 12/02/2024 4:07 AM EDT [facility] Total CO2 17(L) 22 - 29 mmol/L 12/02/2024 4:07 AM EDT [facility] Anion Gap 16 7 - 16 mmol/L 12/02/2024 4:07 AM EDT [facility] Calcium 8.0(L) 8.6 - 10.4 mg/dL 12/02/2024 4:07 AM EDT [facility] Glucose Lvl 156(H) 70 - 99 mg/dL 12/02/2024 4:07 AM EDT [facility] BUN 21(H) 6 - 20 mg/dL 12/02/2024 4:07 AM EDT [facility] Creatinine 1.61(H) 0.67 - 1.30 mg/dL 12/02/2024 4:07 AM EDT [facility] eGFR (CKD-EPIcr 2020) 52(L) >=60 mL/min/1.7 3 m2 12/02/2024 4:07 AM EDT [facility] Comment:Estimated GFR was ca lculated using the CKD-EPIcr (2020) equation refit without race. The equation is recommended by the [employer] - [place] [employer] Task Force. Blood VENOUS BLOOD / Unknown Venipuncture / Unknown 12/02/2024 3:46 AM EDT 12/02/2024 3:50 AM EDT us Peace Rea APRN CHEMISTRY ORDERABLES Nadiya l Result [place] [id number] * (ABNORMAL) GLUCOSE METER POC (12/02/2024 2:58 AM EDT) [facility] Signature Glucose Meter POC 148(H) 70 - 100 mg/dL 12/02/2024 3:00 AM EDT [facility] Sample Type Capillary 12/02/2024 3:00 AM EDT [facility] Patient Status Non-Critical Patient 12/02/2024 3:00 AM EDT [facility] Blood BLOOD SPECIMEN / Unknown 12/02/2024 2:58 AM EDT 12/02/2024 3:00 AM EDT Sadi Haney MD POINT OF CARE TEST [place] [address] * PATHOLOGY TISSUE REQUEST (12/01/2024 3:36 PM EDT) CASE REPORT Surgical Pathology Case: [id number] Authorizing Provider: Sadi Haney MD Collected: 12/01/2024 1536 Ordering Location: [facility] Received: 12/01/2024 1631 Pathologist: Gayle Bahena MD Specimen: Kidney, Left, Left kidney and ureter,along with bladder cuff 12/05/2024 4:20 PM EDT [facility] FINAL DIAGNOSIS Kidney and ureter, left radical nephroureterectomy with bladder cuff: - Ureter: - Noninvasive low-grade papillary urothelial carcinoma, 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 - Resection margins negative for carcinoma - Kidney and bladder cuff with chronic inflammation, negative for carcinoma. - Adrenal gland negative for carcinoma. - See synoptic report for details. 12/05/2024 4:20 PM EDT [facility] at 1620 EDT GROSS DESCRIPTION A. Received in formalin labeled with patient's name, MRN, and left kidney and ureter, along with bladder cuff is an 826 g complex of kidney (13.2 x 8.5 x 5.8 cm) and attached perinephric adipose tissue up to 5.5 cm which is partially surfaced with purple-swenson fibromembranous tissue (suggestive of Gerota's fascia) and contains apparent fragments of adrenal gland (2.2 x 1 x 0.7 cm). Extending from the renal hilum is an attached ureter (21.2 x 1 x 1 cm) with a circumferential 1.4 x 1.2 cm bladder cuff. Inking moreno: Bladder cuff-orange, entire ureter-black, apparent adrenal gland-yellow, Gerota's fascia-blue Tumor description: Location: [facility] Gross description: Pedunculated purple-brown friable mass Size: 2.5 x 1.8 x 1.2 cm Distance to margins: Vascular margins: 1.2 cm Ureteral margin: 21.2 cm Adrenal gland fragments: 3.7 cm Kidney gross description: Markedly dilated calyces with compression of the renal parenchyma (ranging from 0.2 to 1.1 cm in thickness). The dilated pelvis contains abundant schaffer watery fluid. The attached perinephric adipose tissue is finely sectioned and 3 swenson-brown lymph node candidates identified ranging from 0.5 to 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 Semiconductor Processor sections are submitted as follows: A1-A3 = entire mass at [facility] to include adjacent uninvolved proximal ureter A4 = remaining proximal ureter A5-A6 = school admissions representative dilated calyces A7-A8 equal all distal ureter with perpendicular bladder margin A9 = vascular margins from kidney A10 = all areas suggestive of adrenal parenchyma A11 = 1 bisected lymph node candidate A12 = 1 trisected lymph node candidate A13-A14 = largest lymph node candidate, trisected RIK Stover PA (ASCP) 12/05/2024 4:20 PM EDT [facility] MICROSCOPIC DESCRIPTION The microscopic examination may have been rendered in whole, or in part, by analyzing high-resolution digital images (whole slide images) on the [employer] Digital Pathology platform validated at [facility]. 12/05/2024 4:20 PM EDT [facility] BEST TISSUE BLOCK FOR ANCILLARY STUDIES A3 12/05/2024 4:20 PM EDT [facility] SYNOPTIC REPORT CHECKLIST URETER, RENAL PELVIS: Resection URETER, RENAL PELVIS: RESECTION - All Specimens 8th Edition - Protocol posted: 01/27/2023 SPECIMEN Procedure: Nephroureterectomy Specimen Laterality: Left TUMOR Tumor Site: Renal pelvis: UP[facility] Histologic Type: Papillary urothelial carcinoma, noninvasive Histologic Grade: Low-grade Tumor Extent: Noninvasive papillary carcinoma MARGINS Margin Status for Invasive Carcinoma: All margins negative for invasive carcinoma Margin Status for Carcinoma in Situ / Noninvasive Papillary Urothelial Carcinoma: All margins negative for carcinoma in situ / noninvasive papillary urothelial carcinoma REGIONAL LYMPH NODES Regional Lymph Node Status: Not applicable (no regional lymph nodes submitted or found) pTNM CLASSIFICATION (AJCC 8th Edition) Reporting of pT, pN, and (when applicable) pM categories is based on information available to the pathologist at the time the report is issued. As per the AJCC (Chapter 1, 8th Ed.) it is the managing physician s responsibility to establish the final pathologic stage based upon all pertinent information, including but potentially not limited to this pathology report. 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 pN Category: pN not assigned (no nodes submitted or found) ADDITIONAL FINDINGS Pathologic Findings in Ipsilateral Nonneoplastic Renal Tissue: None identified 12/05/2024 4:20 PM EDT [facility] EMBEDDED IMAGES 12/05/2024 4:20 PM EDT [facility] Tissue LEFT KIDNEY STRUCTURE / Unknown 12/01/2024 3:36 PM EDT 12/01/2024 4:31 PM EDT Sadi Haney MD PATHOLOGY ORDERABLES Nadiya nichols Result Performing Organization Address City/[facility]/ZIP Co de Phone Number [facility] [address] [place], [place] [id number] [address] [address] * US ANES GUIDANCE FOR POC (12/01/2024 9:47 AM EDT) Narrative Genericuser, Calderon - 12/01/2024 9:47 AM EDT Ultrasound guided nerve block performed by Anesthesiologist The study image(s) are for reference only and will not be interpreted by a Radiologist. Refer to the Anesthesia procedure note for image description and procedure details. Jorge Alberto Hoang MD IMG US ORDERABLES Final Resu lt * BB HISTORY CHECK (12/01/2024 9:22 AM EDT) BB HISTORY CHECK (1) Previous History OK 12/01/2024 9:30 AM EDT [facility] Blood VENOUS BLOOD / Unknown Venipuncture / Unknown 12/01/2024 9:22 AM EDT 12/01/2024 9:26 AM EDT Sadi Haney MD BLOOD BANK ORDERABLES Fin al Result Performing Organization Address City/[facility]/ZIP Co de Phone Number [facility] [address] [place] [id number] * ABORH (12/01/2024 9:22 AM EDT) ABORH Int B POS 12/01/2024 9:5 7 AM EDT [facility] Blood VENOUS BLOOD / Unknown Venipuncture / Unknown 12/01/2024 9:22 AM EDT 12/01/2024 9:26 AM EDT Sadi Haney MD BLOOD BANK ORDERABLES Fin al Result Performing Organization Address City/[facility] Co de Phone Number [facility] [address] [address] * RED BLOOD CELLS REQUEST (11/23/2024 2:10 PM EDT) Product Code [id number] [facility] Unit Number [id number] [facility] Crossmatch Interp Compatible [facility] Dispense Status TRANSFUSED [facility] Blood Expiration Date [id number] [facility] ISBT 128 Type 7300 [facility] Blood Unit Volume 300 ml [facility] BA CODING SYSTEM [id number] [facility] Blood Type (Unit) B POS [facility] Blood 11/23/2024 2:10 PM EDT 11/23/2024 2:17 PM EDT Peace Rea APRN BLOOD PRODUCT ORDERS Nadiya l Result Performing Organization Address City/[facility] Co de Phone Number [facility] [address] [address] * RED BLOOD CELLS REQUEST (11/23/2024 2:10 PM EDT) Product Code [id number] [facility] Unit Number [id number] [facility] Crossmatch Interp Compatible [facility] Dispense Status TRANSFUSED [facility] Blood Expiration Date [id number] [facility] ISBT 128 Type 7300 [facility] Blood Unit Volume 300 ml [facility] BA CODING SYSTEM [id number] [facility] Blood Type (Unit) B POS [facility] Product Code [id number] [facility] Unit Number [id number] [facility] Crossmatch Interp Compatible [facility] Dispense Status TRANSFUSED [facility] Blood Expiration Date [facility] ISBT 128 Type 7300 [facility] Blood Unit Volume 300 ml [facility] BA CODING SYSTEM [id number] [facility] Blood Type (Unit) B POS [facility] Blood 11/23/2024 2:10 PM EDT 11/23/2024 2:17 PM EDT Sadi Haney MD BLOOD PRODUCT ORDERS Nadiya l Result [facility] [place] [address] documented in this encounter Visit Diagnoses Diagnosis Ureteral mass- Primary Unspecified disorder of kidney and ureter Preop testing Preoperative examination, unspecified Malignant neoplasm of left ureter (HCC) Malignant neoplasm of ureter Coronary artery disease involving [place] coronary artery of [place] heart without angina pectoris Sepsis without acute organ dysfunction (HCC) Community acquired pneumonia of right middle lobe of lung Hypotension Hypotension, unspecified S/p nephrectomy Acquired absence of kidney Acute blood loss as cause of postoperative anemia Elevated troponin Other abnormal blood chemistry C. difficile diarrhea Intestinal infection due to clostridium difficile documented in this encounter Admitting Diagnoses Diagnosis Ureteral mass Unspecified disorder of kidney and ureter Malignant neoplasm of left ureter (HCC) Malignant neoplasm of ureter documented in this encounter Administered Medications Inactive Administered Medications - up to 1 most recent administrations Medication Order MAR Action Action Date Dose Rate Site 0.9 % NaCl infusion Intravenous, at 125 mL/hr, CONTINUOUS, Starting on 12/01/24 at 1730, Until 12/02/24 at 1729, Post-op IV Restarted 12/02/2024 4:14 PM EDT 125 mL/hr 0.9 % NaCl infusion Intravenous, at 100 mL/hr, CONTINUOUS, Starting on 12/02/24 at 1700, Until 12/03/24 at 1659 New Bag 12/03/2024 10:04 AM EDT 100 mL/hr acetaminophen (TYLENOL) suppository 650 mg 650 mg, Rectal, EVERY 4 HOURS PRN, Starting on Wed12/01/24 at 1851, Until Wed12/08/24 at 1550, Fever, Maximum adult dose of acetaminophen is 4000 mg from all sources in 24 hours., Post-op acetaminophen (TYLENOL) tablet 1,000 mg 1,000 mg, Oral, PREPROCEDURE, 1 dose, Starting on Amelia 11/30/24 at 0816, Until Wed12/01/24 at 0922, Coanalgesic, Do not give if patient received acetaminophen within the last 6 hours Maximum adult dose of acetaminophen is 4000 mg from all sources in 24 hours., Pre-op (Holding/SDS Meds) Given 12/01/2024 9:22 AM EDT 1,000 mg acetaminophen (TYLENOL) tablet 650 mg 650 mg, Oral, EVERY 4 HOURS SCHEDULED (6 times per day), 6 doses, First dose on Wed12/01/24 at 2100, Last dose on Wed12/02/24 at 1900, Maximum adult dose of acetaminophen is 4000 mg from all sources in 24 hours., Post-op Given 12/02/2024 6:49 PM EDT 650 mg acetaminophen (TYLENOL) tablet 650 mg 650 mg, Oral, EVERY 6 HOURS PRN, Starting on Wed12/02/24 at 1406, Until Tu12/05/24 at 2135, Pain, Maximum adult dose of acetaminophen is 4000 mg from all sources in 24 hours., Post-op Given 12/05/2024 2:20 PM EDT 650 mg acetaminophen (TYLENOL) tablet 650 mg 650 mg, Oral, EVERY 4 HOURS PRN, Starting on Wed12/01/24 at 1851, Until Wed12/08/24 at 1550, Fever, Maximum adult dose of acetaminophen is 4000 mg from all sources in 24 hours., Post-op Given 12/08/2024 5:42 AM EDT 650 mg aluminum & magnesium hydroxide-simethicone 200-200-20 mg/5 mL suspension 30 mL 30 mL, Oral, ONCE, 1 dose, On 12/02/24 at 2100, Viscous lidocaine is currently on national back order. Aluminum & magnesium hydroxide-simethicone (Maalox) monotherapy has been shown to be as effective to treat epigastric pain as combination with lidocaine. Please continue with interchange to aluminum & magnesium hydroxide-simethicone (Maalox) monotherapy. Given 12/02/2024 8:43 PM EDT 30 mL aspirin EC tablet 81 mg 81 mg, Oral, DAILY, First dose on Wed12/01/24 at 1900, Until Discontinued, Post-op Given 12/04/2024 8:51 AM EDT 81 mg aspirin EC tablet 81 mg 81 mg, Oral, DAILY, First dose (after last modification) on Wed12/07/24 at 1045, Until Discontinued, Post-op Given 12/08/2024 8:04 AM EDT 81 mg atorvastatin (LIPITOR) tablet 80 mg 80 mg, Oral, DAILY, First dose on Wed12/01/24 at 2030, Until Discontinued, Post-op Given 12/04/2024 8:51 AM EDT 80 mg atorvastatin (LIPITOR) tablet 80 mg 80 mg, Oral, NIGHTLY, First dose (after last modification) on Wed12/05/24 at 2100, Until Discontinued, Post-op Given 12/07/2024 9:01 PM EDT 80 mg benzocaine-menthoL (CEPACOL SORE THROAT) 15-3.6 mg 1 Lozenge 1 Lozenge, Oral, EVERY 2 HOURS PRN, Starting on Wed12/04/24 at 2110, Until Wed12/08/24 at 1550, Sore Throat, Waste Sort Code = BLACK RA Hazardous Waste Container cefTRIAXone in dextrose (ROCEPHIN) 1 gram/50 mL IVPB 1 g 1 g, Intravenous, EVERY 24 HOURS SCHEDULED (Daily), 1 dose, First dose on Wed12/02/24 at 0900, Administer over 30 Minutes, Reason for Therapy: Surgical Prophylaxis, Post-op IV Started 12/02/2024 9:17 AM EDT 1 g 100 mL/hr cefTRIAXone in dextrose (ROCEPHIN) 1 gram/50 mL IVPB 1 g 1 g, Intravenous, ONCE, 1 dose, On Wed12/02/24 at 1345, Administer over 30 Minutes, Reason for Therapy: Surgical Prophylaxis, Post-op IV Started 12/02/2024 3:10 PM EDT 1 g 100 mL/hr cefTRIAXone in dextrose (ROCEPHIN) 2 gram/50 mL IVPB 2 g 2 g, Intravenous, EVERY 24 HOURS SCHEDULED (Daily), 7 doses, First dose on Wed12/03/24 at 0900, Last dose on Wed12/09/24 at 0900, Administer over 30 Minutes, Reason for Therapy: Infection Documented, Indication: Pneumonia IV Started 12/06/2024 8:42 AM EDT 2 g 100 mL/hr cefUROXime (CEFTIN) tablet 500 mg 500 mg, Oral, EVERY 12 HOURS SCHEDULED (2 times per day), 10 doses, First dose on Wed12/06/24 at 1130, Last dose on Wed12/10/24 at 2100, Reason for Therapy: Infection Suspected, Indication: Pneumonia Given 12/08/2024 8:05 AM EDT 500 mg diatrizoate meglumine (HYPAQUE) 30 % solution 175 mL 175 mL, Urethral, ONCE PRN, 1 dose, Starting on Amelia 12/07/24 at 1100, Until Amelia 12/07/24 at 1100, Radiology Procedure, XRay/Fluoro (Contrasts) Given 12/07/2024 11:00 AM EDT 175 mL diazePAM (VALIUM) injection 5 mg 5 mg, Intravenous, ONCE, 1 dose, On 12/02/24 at 2215, Caution - Vesicant - Verify Patency of IV Access. For IV push administration give over 2-5 minutes Given 12/02/2024 8:43 PM EDT 5 mg diazePAM (VALIUM) tablet 5 mg 5 mg, Oral, EVERY 6 HOURS PRN, Starting on Wed12/03/24 at 1745, Until Wed12/08/24 at 1550, Anxiety Given 12/03/2024 6:08 PM EDT 5 mg diphenhydrAMINE (BENADRYL) injection 12.5-25 mg 12.5-25 mg, Intravenous, EVERY 6 HOURS PRN, Starting on Wed12/01/24 at 1851, Until Wed12/08/24 at 1550, Itching, Begin with lowest dose unless otherwise directed., Post-op diphenhydrAMINE (BENADRYL) tablet 12.5-25 mg 12.5-25 mg, Oral, EVERY 6 HOURS PRN, Starting on Wed12/01/24 at 1851, Until Wed12/08/24 at 1550, Itching, Begin with lowest dose unless otherwise directed., Post-op docusate sodium (COLACE) capsule 100 mg 100 mg, Oral, 2 TIMES DAILY, First dose on Wed12/03/24 at 2230, Until Discontinued, Do not crush or chew. Given 12/04/2024 8:54 PM EDT 100 mg docusate sodium (COLACE) capsule 100 mg 100 mg, Oral, 2 TIMES DAILY PRN, Starting on Wed12/06/24 at 1048, Until Wed12/07/24 at 0855, Constipation, Do not crush or chew. Given 12/07/2024 5:46 AM EDT 100 mg enoxaparin (LOVENOX) injection 40 mg 40 mg, Subcutaneous, DAILY - LMWH/Xa, First dose on Wed12/01/24 at 2030, Until Discontinued, Post-op Given 12/01/2024 8:17 PM EDT 40 mg Abdominal Tissue fentaNYL (SUBLIMAZE) injection 25 mcg 25 mcg, Intravenous, EVERY 5 MIN PRN, Starting on Wed12/01/24 at 1558, Until Wed12/01/24 at 1819, Pain, For initial pain. Maximum dose not to exceed 100 mcg., PACU Given 12/01/2024 5:25 PM EDT 25 mcg ferrous sulfate tablet 325 mg 325 mg, Oral, 2 TIMES DAILY WITH MEALS, First dose on Wed12/06/24 at 1130, Until Discontinued, Each tab provides 65 mg elemental iron Take with food other than cereals, dietary fiber, tea, coffee, eggs, or milk. Do not crush. Given 12/07/2024 5:00 PM EDT 325 mg fUROsemide (LASix) tablet 40 mg 40 mg, Oral, DAILY, First dose on Wed12/01/24 at 2030, Until Discontinued, Post-op Given 12/01/2024 8:16 PM EDT 40 mg fUROsemide (LASix) tablet 40 mg 40 mg, Oral, DAILY, First dose on Wed12/07/24 at 0000, Until Discontinued Given 12/06/2024 10:53 PM EDT 40 mg heparin (porcine) injection 5,000 Units 5,000 Units, Subcutaneous, ONCE PREPROCEDURE, 1 dose, On Wed12/01/24 at 0900 Given 12/01/2024 9:22 AM EDT 5,000 Units Abdominal Tissue HYDROmorphone (DILAUDID) injection 0.5 mg 0.5 mg, Intravenous, EVERY 10 MIN PRN, 4 doses, Starting on Wed12/01/24 at 1558, Until Wed12/01/24 at 181, Breakthrough Pain, Do not exceed 2 mg in one hour unless otherwise ordered by the Anesthesia Coordinator For pain unrelieved by fentanyl or oral opioid, PACU Given 12/01/2024 5:50 PM EDT 0.5 mg hydrOXYzine (VISTARIL) capsule 25 mg 25 mg, Oral, EVERY 8 HOURS PRN, Starting on Wed12/06/24 at 1102, Until Wed12/08/24 at 1550, Anxiety ibuprofen (CALDOLOR) 800 mg in dextrose 5% 250 mL IV infusion 800 mg, Intravenous, EVERY 6 HOURS SCHEDULED (4 times per day), 4 doses, First dose on Wed12/01/24 at 2030, Last dose on Wed12/02/24 at 1200, Administer over 30 Minutes, If patient receiving scheduled ibuprofen (Caldolor) IV, hold oral ibuprofen until IV therapy completed., Post-op Rate/Dose Verify 12/02/2024 6:42 AM EDT 516 mL/hr iopamidoL (ISOVUE-370) 370 mg iodine /mL (76 %) injection (LOW) 100 mL 100 mL, Intravenous, ONCE PRN, 1 dose, Starting on Wed12/02/24 at 2020, Until Wed12/02/24 at 2021, Radiography/Imaging, Radiology Procedure, VESICANT , CT (Contrasts) Given 12/02/2024 8:22 PM EDT 100 mL lactated ringers infusion Intravenous, at 50 mL/hr, PREPROCEDURE CONTINUOUS, Starting on Amelia 11/30/24 at 0816, Until Wed12/01/24 at 181, To be given in SDS/Pre-op Holding Area, Pre-op (Holding/SDS Meds) New Bag 12/01/2024 4:05 PM EDT losartan (COZAAR) tablet 50 mg 50 mg, Oral, DAILY, First dose on Wed12/01/24 at 2030, Until Discontinued, +++ARB Medication+++, Post-op Given 12/01/2024 8:16 PM EDT 50 mg melatonin tablet 10 mg 10 mg, Oral, NIGHTLY, First dose on Wed12/05/24 at 2100, Until Discontinued Given 12/06/2024 10:53 PM EDT 10 mg metoprolol succinate (TOPROL-XL) XL tablet 25 mg 25 mg, Oral, DAILY, First dose on Wed12/06/24 at 1130, Until Discontinued, May divide tablets in half; do not crush or chew. Given 12/08/2024 8:05 AM EDT 25 mg morphine injection 2 mg 2 mg, Intravenous, EVERY 1 HOUR PRN, Starting on Wed12/01/24 at 1851, Until Wed12/08/24 at 1550, Pain Unrelieved by Oral Opioid Therapy, Begin with lowest dose unless otherwise directed. Reassess pain in 15 minutes. If pain unrelieved, remainder of dose may be given to patient., Post-op morphine injection 3-4 mg 3-4 mg, Intravenous, EVERY 1 HOUR PRN, Starting on Wed12/01/24 at 1851, Until Wed12/08/24 at 1550, Pain Unrelieved by Oral Opioid Therapy, Begin with lowest dose unless otherwise directed. Reassess pain in 15 minutes. If pain unrelieved, remainder of dose may be given to patient., Post-op morphine injection 5-6 mg 5-6 mg, Intravenous, EVERY 1 HOUR PRN, Starting on Wed12/01/24 at 1851, Until Wed12/08/24 at 1550, Pain Unrelieved by Oral Opioid Therapy, Begin with lowest dose unless otherwise directed. Reassess pain in 15 minutes. If pain unrelieved, remainder of dose may be given to patient., Post-op nicotine (NICODERM CQ) 21 mg/24 hr 1 Patch 1 Patch, Transdermal, DAILY, First dose on Wed12/01/24 at 2045, Until Discontinued, Apply to skin every morning, rotating sites. Remove old patch. Patches may be placed anywhere on the upper body, including arms and back (exceptions: do not place on abdomen if ; do not place over any other medication patch, port-a-cath, or pacemaker). Please place used patch, wrapper, and/or empty package in BLACK [employer] Hazardous Waste Container, Administer over 24 Hours Patch Applied 12/08/2024 9:00 AM EDT 1 Patch Right Arm nicotine (NICODERM CQ) patch CHECK Transdermal, NIGHTLY, First dose on Wed12/01/24 at 2215, Until Discontinued, Confirm patch is in place. Remove patch at bedtime for complaint of insomnia or vivid dreams ondansetron (ZOFRAN) injection 4 mg 4 mg, Intravenous, EVERY 4 HOURS PRN, Starting on Wed12/01/24 at 1851, Until Wed12/08/24 at 1550, Nausea, Vomiting, Post-op Given 12/02/2024 3:15 PM EDT 4 mg ondansetron (ZOFRAN) tablet 4 mg 4 mg, Oral, EVERY 4 HOURS PRN, Starting on Wed12/01/24 at 1851, Until Wed12/08/24 at 1550, Nausea, Vomiting, Post-op Given 12/06/2024 10:53 PM EDT 4 mg oxyCODONE (ROXICODONE) immediate release tablet 5-10 mg 5-10 mg, Oral, EVERY 4 HOURS PRN, Starting on Wed12/01/24 at 1851, Until Wed12/08/24 at 1550, Pain Unrelieved by Oral Non-Opioid Therapy, Begin with lowest dose unless otherwise directed. Reassess pain in one hour. If pain unrelieved, remainder of dose may be given to patient., Post-op Given 12/04/2024 11:27 PM EDT 5 mg pantoprazole (PROTONIX) tablet 40 mg 40 mg, Oral, EVERY DAY BEFORE MEAL, First dose on Wed12/02/24 at 0600, Until Discontinued, Therapeutic Interchange for PREVACID 30 mg cap, Post-op Given 12/08/2024 5:43 AM EDT 40 mg phenoL (CHLORASEPTIC) 1.4 % oral spray 1 [place] 1 [place], Oral, EVERY 2 HOURS PRN, Starting on Wed12/04/24 at 2110, Until Wed12/08/24 at 1550, Sore Throat Given 12/04/2024 9:58 PM EDT 1 [place] Saccharomyces boulardii (FLORASTOR) capsule 250 mg 250 mg, Oral, 2 TIMES DAILY, First dose on Wed12/05/24 at 2315, Until Discontinued, If for feeding tube administration, open capsule/packet outside of patient's room and dissolve contents in 8-12 oz. of liquid Given 12/08/2024 8:04 AM EDT 250 mg sodium chloride 0.9 % 1,000 mL IV bolus Intravenous, ONCE, 1 dose, On Sat /26/25 at 0600, at 1,935.5 mL/hr Rate/Dose Change 12/02/2024 4:28 AM EDT 985 mL/hr sodium chloride 0.9 % 1,000 mL IV bolus Intravenous, ONCE, 1 dose, On Wed12/02/24 at 0715, at 983.6 mL/hr Rate/Dose Verify 12/02/2024 5:36 AM EDT 983.6 mL/hr sodium chloride 0.9% IV line flush 20-50 mL 20-50 mL, Intravenous, at 150-600 mL/hr, PRN, Starting on Wed12/05/24 at 0829, Until Wed12/08/24 at 1550, Line Care, Flush with a minimum of 20 mL after IVPB to insure complete administration of the dose. May use the saline infusion to back flush IVPB tubing as needed. IV Started 12/06/2024 8:41 AM EDT 50 mL 150 mL/hr sodium chloride 0.9% IV line flush for blood products 40-100 mL 40-100 mL, Intravenous, at 150-600 mL/hr, CONTINUOUS, Starting on Wed12/02/24 at 2330, Until Wed12/03/24 at 2329, Use this order to document priming and flushing IV line after blood product administration. For platelets, rinse bag with 20-50 mL prior to flushing line. IV Started 12/02/2024 11:30 PM EDT 50 mL 150 mL/hr sodium chloride 0.9% IV line flush for blood products 40-100 mL 40-100 mL, Intravenous, at 150-600 mL/hr, CONTINUOUS, Starting on Wed12/04/24 at 0930, Until Wed12/05/24 at 0929, Use this order to document priming and flushing IV line after blood product administration. For platelets, rinse bag with 20-50 mL prior to flushing line. IV Started 12/04/2024 8:46 AM EDT 50 mL 150 mL/hr sodium chloride 0.9% syringe 10 mL 10 mL, Intravenous, ONCE PRN, 1 dose, Starting on Wed12/02/24 at 2020, Until Wed12/02/24 at 2020, Line Care, Flush peripheral lines every 12 hours, central lines every 8 hours, and after IV medication, CT (Contrasts) Given 12/02/2024 8:21 PM EDT 10 mL sodium chloride 0.9% syringe Intravenous, PREPROCEDURE, Starting on Wed11/30/24 at 0816, Until Wed12/01/24 at 1819, Line Care, Pre-op Priming, For priming IV saline lock, Pre-op (Holding/SDS Meds) Given 12/01/2024 9:29 AM EDT 10 mL sodium chloride 0.9% syringe Intravenous, EVERY 12 HOURS SCHEDULED (2 times per day), First dose on Wed12/05/24 at 1000, Until Discontinued, Flush with 3-5 mL saline for PERIPHERAL saline lock maintenance. Given 12/07/2024 9:15 PM EDT sodium chloride 0.9% syringe Intravenous, PRN, Starting on Wed12/05/24 at 0829, Until Wed12/08/24 at 1550, Line Care, Flush with 5-10 mL saline pre/post IVP, and 5 mL prior to IVPB or blood product administration. Given 12/05/2024 8:31 AM EDT 5 mL tolterodine (DETROL LA) ER capsule 4 mg 4 mg, Oral, DAILY, First dose on Wed12/01/24 at 2030, Until Discontinued, PO after surgery, then daily, Post-op Given 12/08/2024 8:05 AM EDT 4 mg vancomycin (VANCOCIN) capsule 125 mg 125 mg, Oral, 4 TIMES DAILY, 40 doses, First dose on Wed12/06/24 at 2145, Last dose on Wed12/16/24 at 1700, Reason for Therapy: Infection Documented, Indication: Clostridium difficile Given 12/08/2024 8:05 AM EDT 125 mg documented in this encounter Active and Recently Administered Medications Times are shown in EDT. Scheduled Medication Order 12/06/2024 12/07/2024 12/08/2024 aspirin EC tablet 81 mg 81 mg, Oral, DAILY, First dose (after last modification) on Wed12/07/24 at 1045, Until Discontinued, Post-op 0926 (Given - Provider: Margie Diaz LPN) 0804 (Given - Provider: Margie Diaz LPN) atorvastatin (LIPITOR) tablet 80 mg 80 mg, Oral, NIGHTLY, First dose (after last modification) on Wed12/05/24 at 2100, Until Discontinued, Post-op 222 (Given - Provider: Zeinab Deutsch RN) 2100 (Given - Provider: Virginia Landis, LAY) cefTRIAXone in dextrose (ROCEPHIN) 2 gram/50 mL IVPB 2 g (CANCELED) 2 g, Intravenous, EVERY 24 HOURS SCHEDULED (Daily), 7 doses, First dose on Wed12/03/24 at 0900, Last dose on Wed12/09/24 at 0900, Administer over 30 Minutes, Reason for Therapy: Infection Documented, Indication: Pneumonia 0842 (IV Started - Provider: Yessy Oreilly RN)09 (IV Stopped by Other - Provider: Cheyanne Tripp RN)0958 (IV Stopped by Other - Provider: Cheyanne Tripp RN) cefUROXime (CEFTIN) tablet 500 mg 500 mg, Oral, EVERY 12 HOURS SCHEDULED (2 times per day), 10 doses, First dose on Wed12/06/24 at 1130, Last dose on Wed12/10/24 at 2100, Reason for Therapy: Infection Suspected, Indication: Pneumonia 1135 (Given - Provider: Yessy Oreilly RN)222 (Given - Provider: Zeinab Deutsch RN) 0832 (Given - Provider: Margie Diaz LPN)2100 (Given - Provider: Virginia Landis RN) 08 (Given - Provider: Margie Diaz LPN) ferrous sulfate tablet 325 mg 325 mg, Oral, 2 TIMES DAILY WITH MEALS, First dose on Wed12/06/24 at 1130, Until Discontinued, Each tab provides 65 mg elemental iron Take with food other than cereals, dietary fiber, tea, coffee, eggs, or milk. Do not crush. 1135 (Given - Provider: Yessy Oreilly RN)1737 (Given - Provider: Yessy Oreilly RN) 0832 (Given - Provider: Margie Diaz LPN)1700 (Given - Provider: Cece Sam RN) 0804 (Not Given - Provider: Margie Diaz LPN - Reason: Patient Declined) fUROsemide (LASix) tablet 40 mg 40 mg, Oral, DAILY, First dose on Wed12/07/24 at 0000, Until Discontinued 2252 (Given - Provider: Zeinab Deutsch RN) 0804 (Not Given - Provider: Margie Diaz LPN - Reason: Patient Declined) melatonin tablet 10 mg 10 mg, Oral, NIGHTLY, First dose on Wed12/05/24 at 2100, Until Discontinued 2252 (Given - Provider: Zeinab Deutsch RN) 222 (Not Given - Provider: Virginia Landis RN - Reason: Patient Declined) metoprolol succinate (TOPROL-XL) XL tablet 25 mg 25 mg, Oral, DAILY, First dose on Wed12/06/24 at 1130, Until Discontinued, May divide tablets in half; do not crush or chew. 1130 (Not Given - Provider: Yessy Oreilly RN - Reason: Family Declined)1524 (Given - Provider: Yessy Oreilly RN) 0832 (Given - Provider: Margie Diaz LPN) 0805 (Given - Provider: Margie Diaz LPN) nicotine (NICODERM CQ) 21 mg/24 hr 1 Patch(Linked Group 1) 1 Patch, Transdermal, DAILY, First dose on Wed12/01/24 at 2045, Until Discontinued, Apply to skin every morning, rotating sites. Remove old patch. Patches may be placed anywhere on the upper body, including arms and back (exceptions: do not place on abdomen if ; do not place over any other medication patch, port-a-cath, or pacemaker). Please place used patch, wrapper, and/or empty package in [employer] Waste Container, Administer over 24 Hours 0845 (Patch Removed - Provider: Yessy Oreilly RN - Comment: Not on pt)0846 (Patch Applied - Provider: Yessy Oreilly RN) 0021 (Patch Applied - Provider: Zeinab Deutsch RN - Comment: verified new patch applied d/t previous one falling off early)0832 (Patch Removed - Provider: Margie Diaz LPN)0834 (Patch Applied - Provider: Margie Diaz LPN) 0803 (Patch Removed - Provider: Margie Diaz LPN)0900 (Patch Applied - Provider: Margie Diaz LPN)1129 (Due: Patch Removed - Provider: Automatic Discharge Provider - Comment: Time automatically adjusted from order being discontinued) nicotine (NICODERM CQ) patch CHECK(Linked Group 1) Transdermal, NIGHTLY, First dose on Wed12/01/24 at 2215, Until Discontinued, Confirm patch is in place. Remove patch at bedtime for complaint of insomnia or vivid dreams 2099 (Patch Removed - Provider: Zeinab Deutsch RN - Comment: by pt) 2114 (Patch Checked - Provider: Virginia Landis RN) pantoprazole (PROTONIX) tablet 40 mg 40 mg, Oral, EVERY DAY BEFORE MEAL, First dose on Wed12/02/24 at 0600, Until Discontinued, Therapeutic Interchange for PREVACID 30 mg cap, Post-op 0511 (Given - Provider: Zeinab Deutsch RN) 0418 (Given - Provider: Zeinab Deutsch RN) 0543 (Given - Provider: Virginia Landis RN) Saccharomyces boulardii (FLORASTOR) capsule 250 mg 250 mg, Oral, 2 TIMES DAILY, First dose on Wed12/05/24 at 2315, Until Discontinued, If for feeding tube administration, open capsule/packet outside of patient's room and dissolve contents in 8-12 oz. of liquid 0834 (Given - Provider: Yessy Oreilly RN)222 (Given - Provider: Zeinab Deutsch RN) 0832 (Given - Provider: Margie Diaz LPN)210 (Given - Provider: Virginia Landis RN) 0804 (Given - Provider: Margie Diaz LPN) sodium chloride 0.9% syringe Intravenous, EVERY 12 HOURS SCHEDULED (2 times per day), First dose on Wed12/05/24 at 1000, Until Discontinued, Flush with 3-5 mL saline for PERIPHERAL saline lock maintenance. 0838 (Given - Provider: Yessy Oreilly RN)222 (Given - Provider: Zeinab Deutsch RN) 0835 (Given - Provider: Margie Diaz LPN)2114 (Given - Provider: Virginia Landis RN) 0900 (Not Given - Provider: Margie Diaz LPN - Reason: Loss of IV access) tolterodine (DETROL LA) ER capsule 4 mg 4 mg, Oral, DAILY, First dose on Wed12/01/24 at 2030, Until Discontinued, PO after surgery, then daily, Post-op 0834 (Given - Provider: Yessy Oreilly RN) 0832 (Given - Provider: Margie Diaz LPN) 0805 (Given - Provider: Margie Diaz LPN) vancomycin (VANCOCIN) capsule 125 mg 125 mg, Oral, 4 TIMES DAILY, 40 doses, First dose on Wed12/06/24 at 2145, Last dose on Wed12/16/24 at 1700, Reason for Therapy: Infection Documented, Indication: Clostridium difficile 222 (Given - Provider: Zeinab Deutsch RN) 0832 (Given - Provider: Margie Diaz LPN)1330 (Given - Provider: Margie Diaz LPN)1700 (Given - Provider: Cece Sam RN)210 (Given - Provider: Virginia Landis RN) 0805 (Given - Provider: Margie Diaz LPN) PRN Medication Order 12/06/2024 12/07/2024 12/08/2024 acetaminophen (TYLENOL) suppository 650 mg(Linked Group 2) 650 mg, Rectal, EVERY 4 HOURS PRN, Starting on Wed12/01/24 at 1851, Until Wed12/08/24 at 1550, Fever, Maximum adult dose of acetaminophen is 4000 mg from all sources in 24 hours., Post-op 0513 (See Alternative - Provider: Zeinab Deutsch RN)1736 (See Alternative - Provider: Yessy Oreilly RN)2253 (See Alternative - Provider: Zeinab Deutsch RN) 0517 (See Alternative - Provider: Zeinab Deutsch RN)1003 (See Alternative - Provider: Margie Diaz LPN)210 (See Alternative - Provider: Virginia Landis, LAY) 0542 (See Alternative - Provider: Virginia Landis, LAY) acetaminophen (TYLENOL) tablet 650 mg(Linked Group 2) 650 mg, Oral, EVERY 4 HOURS PRN, Starting on Wed12/01/24 at 1851, Until Wed12/08/24 at 1550, Fever, Maximum adult dose of acetaminophen is 4000 mg from all sources in 24 hours., Post-op 0513 (Given - Provider: Zeinab Deutsch, LAY)1736 (Given - Provider: Yessy Oreilly, LAY)2253 (Given - Provider: Zeinab Deutsch RN) 0517 (Given - Provider: Zeinab Deutsch, RN)1003 (Given - Provider: Margie Diaz LPN)210 (Given - Provider: Virginia Landis, LAY) 0542 (Given - Provider: Virginia Ladnis RN) benzocaine-menthoL (CEPACOL SORE THROAT) 15-3.6 mg 1 Lozenge(Linked Group 3) 1 Lozenge, Oral, EVERY 2 HOURS PRN, Starting on 12/04/24 at 2110, Until Wed12/08/24 at 1550, Sore Throat, Waste Sort Code = [employer] Waste Container diatrizoate meglumine (HYPAQUE) 30 % solution 175 mL (COMPLETED) 175 mL, Urethral, ONCE PRN, 1 dose, Starting on Amelia 12/07/24 at 1100, Until Amelia 12/07/24 at 1100, Radiology Procedure, XRay/Fluoro (Contrasts) 1100 (Given - Provider: Bronwyn Do, RT) diazePAM (VALIUM) tablet 5 mg 5 mg, Oral, EVERY 6 HOURS PRN, Starting on Wed12/03/24 at 1745, Until Wed12/08/24 at 1550, Anxiety diphenhydrAMINE (BENADRYL) injection 12.5-25 mg(Linked Group 4) 12.5-25 mg, Intravenous, EVERY 6 HOURS PRN, Starting on Wed12/01/24 at 1851, Until Wed12/08/24 at 1550, Itching, Begin with lowest dose unless otherwise directed., Post-op diphenhydrAMINE (BENADRYL) tablet 12.5-25 mg(Linked Group 4) 12.5-25 mg, Oral, EVERY 6 HOURS PRN, Starting on Wed12/01/24 at 1851, Until Wed12/08/24 at 1550, Itching, Begin with lowest dose unless otherwise directed., Post-op docusate sodium (COLACE) capsule 100 mg (CANCELED) 100 mg, Oral, 2 TIMES DAILY PRN, Starting on Wed12/06/24 at 1048, Until Wed12/07/24 at 0855, Constipation, Do not crush or chew. 0546 (Given - Provider: Zeinab Deutsch RN) hydrOXYzine (VISTARIL) capsule 25 mg 25 mg, Oral, EVERY 8 HOURS PRN, Starting on Wed12/06/24 at 1102, Until Wed12/08/24 at 1550, Anxiety morphine injection 2 mg(Linked Group 5) 2 mg, Intravenous, EVERY 1 HOUR PRN, Starting on Wed12/01/24 at 1851, Until Wed12/08/24 at 1550, Pain Unrelieved by Oral Opioid Therapy, Begin with lowest dose unless otherwise directed. Reassess pain in 15 minutes. If pain unrelieved, remainder of dose may be given to patient., Post-op morphine injection 3-4 mg(Linked Group 5) 3-4 mg, Intravenous, EVERY 1 HOUR PRN, Starting on Wed12/01/24 at 1851, Until Wed12/08/24 at 1550, Pain Unrelieved by Oral Opioid Therapy, Begin with lowest dose unless otherwise directed. Reassess pain in 15 minutes. If pain unrelieved, remainder of dose may be given to patient., Post-op morphine injection 5-6 mg(Linked Group 5) 5-6 mg, Intravenous, EVERY 1 HOUR PRN, Starting on Wed12/01/24 at 1851, Until Wed12/08/24 at 1550, Pain Unrelieved by Oral Opioid Therapy, Begin with lowest dose unless otherwise directed. Reassess pain in 15 minutes. If pain unrelieved, remainder of dose may be given to patient., Post-op ondansetron (ZOFRAN) injection 4 mg(Linked Group 6) 4 mg, Intravenous, EVERY 4 HOURS PRN, Starting on Wed12/01/24 at 1851, Until Wed12/08/24 at 1550, Nausea, Vomiting, Post-op 0834 (See Alternative - Provider: Yessy Oreilly RN)1816 (See Alternative - Provider: Margie Salguero RN)2253 (See Alternative - Provider: Zeinab Vogelsang, RN) ondansetron (ZOFRAN) tablet 4 mg(Linked Group 6) 4 mg, Oral, EVERY 4 HOURS PRN, Starting on Wed12/01/24 at 1851, Until Wed12/08/24 at 1550, Nausea, Vomiting, Post-op 0834 (Given - Provider: Yessy Oreilly RN)1816 (Given - Provider: Margie Salguero RN)2253 (Given - Provider: Zeinab Deutsch RN) oxyCODONE (ROXICODONE) immediate release tablet 5-10 mg 5-10 mg, Oral, EVERY 4 HOURS PRN, Starting on Wed12/01/24 at 1851, Until Wed12/08/24 at 1550, Pain Unrelieved by Oral Non-Opioid Therapy, Begin with lowest dose unless otherwise directed. Reassess pain in one hour. If pain unrelieved, remainder of dose may be given to patient., Post-op phenoL (CHLORASEPTIC) 1.4 % oral spray 1 [place](Linked Group 3) 1 [place], Oral, EVERY 2 HOURS PRN, Starting on Wed12/04/24 at 2110, Until Wed12/08/24 at 1550, Sore Throat sodium chloride 0.9% IV line flush 20-50 mL 20-50 mL, Intravenous, at 150-600 mL/hr, PRN, Starting on Wed12/05/24 at 0829, Until Wed12/08/24 at 1550, Line Care, Flush with a minimum of 20 mL after IVPB to insure complete administration of the dose. May use the saline infusion to back flush IVPB tubing as needed. 0841 (IV Started - Provider: Yessy Oreilly RN)1134 (IV Stopped by Other - Provider: Cheyanne Tripp RN) sodium chloride 0.9% syringe Intravenous, PRN, Starting on Wed12/05/24 at 0829, Until Wed12/08/24 at 1550, Line Care, Flush with 5-10 mL saline pre/post IVP, and 5 mL prior to IVPB or blood product administration. Linked Groups Order Group 1: nicotine (NICODERM CQ) 21 mg/24 hr 1 PatchJump to med 1 Patch, Transdermal, DAILY, First dose on Wed12/01/24 at 2045, Until Discontinued, Apply to skin every morning, rotating sites. Remove old patch. Patches may be placed anywhere on the upper body, including arms and back (exceptions: do not place on abdomen if ; do not place over any other medication patch, port-a-cath, or pacemaker). Please place used patch, wrapper, and/or empty package in [employer] Waste Container, Administer over 24 Hours And nicotine (NICODERM CQ) patch CHECKJump to med Transdermal, NIGHTLY, First dose on Wed12/01/24 at 2215, Until Discontinued, Confirm patch is in place. Remove patch at bedtime for complaint of insomnia or vivid dreams Group 2: acetaminophen (TYLENOL) tablet 650 mgJump to med 650 mg, Oral, EVERY 4 HOURS PRN, Starting on Wed12/01/24 at 1851, Until Wed12/08/24 at 1550, Fever, Maximum adult dose of acetaminophen is 4000 mg from all sources in 24 hours., Post-op Or acetaminophen (TYLENOL) suppository 650 mgJump to med 650 mg, Rectal, EVERY 4 HOURS PRN, Starting on Wed12/01/24 at 1851, Until Wed12/08/24 at 1550, Fever, Maximum adult dose of acetaminophen is 4000 mg from all sources in 24 hours., Post-op Group 3: phenoL (CHLORASEPTIC) 1.4 % oral spray 1 SprayJump to med 1 [place], Oral, EVERY 2 HOURS PRN, Starting on Wed12/04/24 at 2110, Until Wed12/08/24 at 1550, Sore Throat Or benzocaine-menthoL (CEPACOL SORE THROAT) 15-3.6 mg 1 LozengeJump to med 1 Lozenge, Oral, EVERY 2 HOURS PRN, Starting on Wed12/04/24 at 2110, Until Wed12/08/24 at 1550, Sore Throat, Waste Sort Code = [employer] Group 4: diphenhydrAMINE (BENADRYL) tablet 12.5-25 mgJump to med 12.5-25 mg, Oral, EVERY 6 HOURS PRN, Starting on Wed12/01/24 at 1851, Until Wed12/08/24 at 1550, Itching, Begin with lowest dose unless otherwise directed., Post-op Or diphenhydrAMINE (BENADRYL) injection 12.5-25 mgJump to med 12.5-25 mg, Intravenous, EVERY 6 HOURS PRN, Starting on Wed12/01/24 at 1851, Until Wed12/08/24 at 1550, Itching, Begin with lowest dose unless otherwise directed., Post-op Group 5: morphine injection 2 mgJump to med 2 mg, Intravenous, EVERY 1 HOUR PRN, Starting on Wed12/01/24 at 1851, Until Wed12/08/24 at 1550, Pain Unrelieved by Oral Opioid Therapy, Begin with lowest dose unless otherwise directed. Reassess pain in 15 minutes. If pain unrelieved, remainder of dose may be given to patient., Post-op Or morphine injection 3-4 mgJump to med 3-4 mg, Intravenous, EVERY 1 HOUR PRN, Starting on Wed12/01/24 at 1851, Until Wed12/08/24 at 1550, Pain Unrelieved by Oral Opioid Therapy, Begin with lowest dose unless otherwise directed. Reassess pain in 15 minutes. If pain unrelieved, remainder of dose may be given to patient., Post-op Or morphine injection 5-6 mgJump to med 5-6 mg, Intravenous, EVERY 1 HOUR PRN, Starting on Wed12/01/24 at 1851, Until Wed12/08/24 at 1550, Pain Unrelieved by Oral Opioid Therapy, Begin with lowest dose unless otherwise directed. Reassess pain in 15 minutes. If pain unrelieved, remainder of dose may be given to patient., Post-op Group 6: ondansetron (ZOFRAN) tablet 4 mgJump to med 4 mg, Oral, EVERY 4 HOURS PRN, Starting on Wed12/01/24 at 1851, Until Wed12/08/24 at 1550, Nausea, Vomiting, Post-op Or ondansetron (ZOFRAN) injection 4 mgJump to med 4 mg, Intravenous, EVERY 4 HOURS PRN, Starting on Wed12/01/24 at 1851, Until Wed12/08/24 at 1550, Nausea, Vomiting, Post-op documented in this encounter Orders Medications Ordered That Rd ht Not Have Been Administered Count Last Ordered Date First Ordered Date hydrOXYzine (VISTARIL) capsule 25 mg 1 11/09 sodium chloride 0.9% IV line flush for blood products 40-100 mL 1 12/06/2024 docusate sodium (COLACE) capsule 100 mg 1 0 12/05/2024 benzocaine-menthoL (CEPACOL SORE THROAT) 15-3.6 mg 1 Lozenge 1 12/04/2024 metoprolol succinate (TOPROL -XL) XL tablet 25 mg 2 12/03/2024 12/01/2024 acetaminophen (TYLENOL) oral solution 650 mg 2 12/01/2024 acetaminophen (TYLENOL) suppository 650 mg 3 12/01/2024 bisacodyL (DULCOLAX) suppository 10 mg 1 BUPivacaine liposome (PF) (E XPAREL) 1.3 % (13.3 mg/mL) 20 mL, sodium chloride 0.9 % 20 mL injection 1 12/01/2024 cefTRIAXone in dextrose (MURPHY EPHIN) 1 gram/50 mL IVPB 1 g 1 12/01/2024 diphenhydrAMINE (BENADRYL) i njection 12.5-25 mg 1 12/01/2024 diphenhydrAMINE (BENADRYL) t ablet 12.5-25 mg 1 12/01/2024 droPERidol (INAPSINE) injection 0.625 mg 1 12/01/2024 meperidine (DEMEROL) injecti on (PF) 12.5 mg 1 12/01/2024 morphine injection 2 mg 1 12/01/2024 morphine injection 3-4 mg 1 12/01/2024 morphine injection 5-6 mg 1 12/01/2024 nicotine (NICODERM CQ) patch CHECK 1 2024 ondansetron (ZOFRAN) injection 4 mg 1 12/01 ondansetron (ZOFRAN-ODT) dis integrating tablet 8 mg 1 12/01/2024 oxyCODONE (ROXICODONE) immed iate release tablet 5 mg 1 12/01/2024 Lab Orders Without Results Count Last Ordered D ate First Ordered Date ABORH 1 12/02/2024 ANTIBODY SCREEN IGG 1 12/02/2024 BB HISTORY CHECK 2 12/02/2024 Nursing Count Last Ordered Date First Orde red Date NURSING COMMUNICATION 3 12/06/20242024 [facility] VTE PROPH NON-CANDIDATE 1 12/02/2024 PHARM VTE PROPH NON-CANDIDATE 1 12/02/2024 Consult Count Last Ordered Date First Orde red Date IP CONSULT TO CARDIOLOGY 1 12/02/2024 IP CONSULT TO HOSPITALIST 1 12/01/2024 OT Count Last Ordered Date First Orde red Date IP CONSULT TO OCCUPATIONAL THERAPY 1 2024 ONGOING OCCUPATIONAL THERAPY PER PLAN OF CARE 1 12/05/2024 PT Count Last Ordered Date First Orde red Date IP CONSULT TO PHYSICAL THERAPY 1 12/05/2024 ONGOING PHYSICAL THERAPY PER PLAN OF CARE 1 12/05/2024 Admission Count Last Ordered Date First Orde red Date ADMIT 1 12/01/2024 Discharge Count Last Ordered Date First Orde red Date DISCHARGE PATIENT 1 12/08/2024 documented in this encounter Additional Health Concerns Infection Onset Date Last Indicated Resolved Time R/O C-Diff 12/06/2024 12/06/2024 12/06/2024 1:17 PM EDT C-diff 12/06/2024 12/06/2024 documented as of this encounter Care Teams Sexual Health Physician Relationship Specialty Start Date End Date Reyna Perez APRN [facility] [place] [address] [facility] [place] [id number] PCP - General Nurse Practitioner 10/27/24 documented as of this encounter
--- OUTSIDE RECORDS SUMMARY | 2024-12-01 09:50 | XMS_ITS | Encounter Summary ---
Author Organization [place] [address] Care Team Providers Care Cherry Cutter Name Role Phone Reyna Perez DEMETRIUS Primary Care Provider [phone] Reason for Visit * Auth/Cert/Inpt Specialty Diagnoses / Procedures Referred By Juan R acosta Referred To Contact Diagnoses Ureteral mass Ureteral mass [N28.89] Procedures CA LAPAROSCOPY RADICAL NEPHRECTOMY CA CYSTOURETHROSCOPY W/DEST &/RMVL MED BLADDER EMERY CA LAPAROSCOPY NEPHRECTOMY W/TOTAL URETERECTOMY LEFT DAVINCI ROBOTIC NEPHROURETERECTOMY, CYSTOSCOPY, TRANSURETHRAL RESECTION OF THE BLADDER TUMOR Referral ID Status Reason Start Date Expiration Date Visits Re quested Visits Authorized [id number] 1 1 Encounter Details Date Type Department Care Team (Late st Contact Info) Description 12/01/2024 9:50 AM EDT Ancillary Procedure EDG SAME DAY SURGERY [facility] [place] [address] Sadi Haney MD [address] [facility] [address] [place], [place] [phone] Social History Tobacco Use Types Packs/Day Years [...] 8:11 PM EDT Viri Segura RN * [place] Suicide Severity Rating Scale (Q shift for [...] EDT Office Visit [facility] [address] [place] [address] Dorinda Rodriguez PA-C [address] [place], [place] [phone] 01/23/2025 9:00 AM EDT Office Visit [facility] Cardiac Surgeons [address] [place] [address] Logan Kenny MD [address] [facility] [place] [address] documented as of this encounter Procedures [...] on filedocumented in this encounter Care Teams Cherry Cutter Relationship Specialty Start Date End Date Reyna Perez APRN [address] [facility] [address] [place] [address] PCP - General Nurse Practitioner 10/27/24 documented as of this encounter
--- OUTSIDE RECORDS SUMMARY | 2024-12-01 10:35 | XMS_ITS | Encounter Summary ---
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 [address] Sadi Haney MD [address] [facility] [address] [place] [id number] DAVINCI ROBOTIC NEPHROURETERECTOMY Surgery Details Date/Time [...] 3:23 AM EDT Tommy Lugo RN * [place] Suicide Severity Rating Scale (Q shift for [...] Physician Discharge Summary Patient ID: Alex Hoffman [id number] 49 y.o. 1975 Admit date: 12/01/2024 Discharge [...] Medications These medications were sent to [facility] [address] [facility] [place] [address] Hours: Wednesday-Wednesday 8:00am - 6:30pm traMADoL 50 mg Tab You can get these medications from any pharmacy You don't need a prescription for these medications acetaminophen 325 mg Tab Sadi Haney MD [address] [facility] [address] [facility] [id number] Follow up in 2 week(s) follow up with Logan Montana MD [address] [facility] [address] [place] [id number] Follow up in 2 week(s) To discuss re-intation of antiplatelet therapy and further CTS w/u Reyna Perez APRN [address] [facility] [address] [facility] [place] [address] Follow up in 1 week(s) Hospital [...] UNABLE TO REACH YOUR UROLOGIST OR UROLOGIST LIBRARY ASSOCIATE, YOU SHOULD GO TO A NEARBY EMERGENCY [...] 24 hours a day, please call the [facility] urology department * Attachments The following attachments cannot be sent through Care Everywhere. * How to use an incentive spirometer (Equatorial Guinean) * Nephrectomy ??? Discharge instructions (Equatorial Guinean) * How to take anticoagulants safely (Equatorial [place]inean) * Vancomycin (Equatorial Guinean) * Cefuroxime (Equatorial Guinean) documented in this encounter Medications at Time [...] AM EDT Discharge Medication Delivery Service DMD fuel verification technician has delivered the following medications for Alex Hoffman: Rx#[id number]:TRAMADOL 50 MG TABLET-50 mg EVERY 6 HOURS PRN Rx#[id number]:TOLTERODINE ER 4 MG CAPSULE,EXTENDED RELEASE 24 HR-4 mg DAILY Rx#[id number]:CEFUROXIME AXETIL 500 MG TABLET-500 mg EVERY 12 HOURS SCHEDULED Rx#[id number]:HYDROXYZINE PAMOATE 25 MG CAPSULE-25 mg EVERY 8 HOURS PRN Rx#[id number]:VANCOMYCIN 125 MG CAPSULE-125 mg 4 TIMES DAILY Date/Time of Delivery: 12/08/2024 11:35 AM Delivered to: Room 7308 Placed med bag on tray table. Please contact DMD fuel verification technician with any questions. Thanks! 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 [...] from the original note were not included. 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 [...] PT Subjective Note Type Discharge Patient Room/Unit 5738 Discharge Information Discharge complete, please see discharge summary report for further information including most recently documented activity level Clinical Course pt obsesrved to be amb numerous laps in [facility]. therapy will sign off at thistimes Plan PT Frequency Complete Cosigned by Jennifer Santamaria PT at 12/07/2024 11:18 AM EDT Associated attestation - Jennifer Santamaria PT - 12/07/2024 11:18 AM EDT I agree with the GLOVE MAKER documentation. * Peace Rea KathyDEMETRIUS - 12/07/2024 6:58 AM EDT Images from the original note were not included. 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 - LHC showed ostial LAD 70% stenosis, circumflex (nondominant) with 60-70% stenosis, with 30-40% stenosis of first OM. Pt reports he had LHC and PCI on 09/27/24 (VIC x 1 to RCA) at [facility]. 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 [facility] Urology Urology Progress Note Hospital Day: [...] from the original note were not included. [facility] Urology Urology Progress Note Hospital Day: [...] PM EDTAssociated Problem(s): Coronary artery disease involving crow coronary artery of crow heart without angina pectoris - CABG planned [...] pending Elevated troponin Coronary artery disease involving crow coronary artery of crow heart without angina pectoris - CABG planned [...] left ureter (HCC) Coronary artery disease involving crow coronary artery of crow heart without angina pectoris Subjective: at bedside. [...] to restart- no doses yet 12/04 - GLOVE MAKER Lasix 40gm QD, losartan 50mg QD, Toprol 25mg QD (on hold) Anemia - Hgb 10.2>7.5>8.1>7.9>7.3>8.2>8.9>8.4 - s/p 2 U PRBC's 12/03 and 1 U PRBC 12/04 CAD - EKG SR no acute ischemia appreciated - Trops > - Denies chest pain/ diaphoresis/ nausea - GLOVE MAKER Effient, ASA, Statin, Toprol - Echo 10/2024: EF 60-65%. - LHC showed ostial LAD 70% stenosis, circumflex (nondominant) with 60-70% stenosis, with 30-40% stenosis of first OM. Pt reports he had LHC and PCI on 09/27/24 (VIC x 1 to RCA) at [facility]. Pt was scheduled to have additional PCI [...] - Will discuss bASA plans with attending net washer - on hold currently last dose 12/04. [...] bedside. PCI in September. Working towards CABG. GLOVE MAKER Effient and bASA. Currently holding both. Recommend resumption bASA as soon as cleared by Urology. BP controlled on current regimen. Hgb trend better today. Will follow tomorrow. * Peace Rea APRN - 12/05/2024 8:01 AM EDT Images from the original note were not included. [facility] Urology Progress Note Hospital Day: [...] from the original note were not included. [facility] Urology Urology Progress Note Hospital Day: [...] Pt admitted with Ureteral Mass, pt has [place] [employer] insurance. Note pt is alert and oriented x4. CC met with pt and Tessy at bedside and introduced self and role. Pt states he lives in a 1 story home with 2 steps to enter, ptstates he lives with his Tessy. PCP is Reyna Perez. Pt states he uses [facility] in [place]. Pt states he has concerns with affordability of medications, food, transportation, utilities, and other bills, CC provided resources Pt Toolkit and other resources. Pt states he was independent with ADL???s prior to admission. DME none, HHC pt states he has never been active with HH. Pt states he normally transports via his personal vehicle. Pt states he will transport via his Tessy at [place]. Pt identified his Tessy as his d/c planning support person. SDOH screen completed. Thereare no DC needs requested or identified at this time. CC following. Completed by CC/SW Yes Care Coordination Assessment Mental Status Alert and oriented Does patient need full time staff interpreter? No Decision Maker Patient Activities [...] or connection with God Interventions with Patient Protestant Interventions Prayer with patient or family Outcomes Expressed Outcomes Appreciative of visit Care Plan Plan for Follow-Up Cmo & President(s) will continue to follow throughout admission Carolyn [...] to restart- no doses yet 12/04 - GLOVE MAKER Lasix 40gm QD, losartan 50mg QD, Toprol 25mg QD (on hold) Anemia - Hgb 10.2>7.5>8.1>7.9>7.3 - s/p 2 U PRBC's 12/03 and 1 U PRBC 12/04 CAD - EKG SR no acute ischemia appreciated - Trops 27> 26 - Denies chest pain/ diaphoresis/ nausea - GLOVE MAKER Effient, ASA, Statin, Toprol - Echo 10/2024: EF 60-65%. - LHC showed ostial LAD 70% stenosis, circumflex (nondominant) with 60-70% stenosis, with 30-40% stenosis of first OM. Pt reports he had LHC and PCI on 09/27/24 (VIC x 1 to RCA) at [facility]. Pt was scheduled to have additional PCI to LAD and circ however pt wanted a second opinion for possible CABG surgery. Met with Dr. Kenny 10/10 with plans for CABG x 2 with QUINTIN clip on 10/30/24.however this was postponed until urology w/u is complete. 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 Plan for CABG at some point. Diffuse severe disease. Aspirin and statin. Aspirin complicates due to persistent bleeding. 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 * iFli Thrasher MD - 12/04/2024 9:09 AM EDTAssociated [...] with bloody output. 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 Plan [...] from the original note were not included. [facility] Urology Urology Progress Note Hospital Day: [...] hb was 8.2 Stopped bASA after d/w net washer Plan: Hold bASA DAMIEN off suction Check [...] expect his H&H to improve gradually. * Peaec Rea APRN - 12/03/2024 8:59 PM EDT Images from the original note were not included. 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 Plan per urology, follow path - await urology plans for today Elevated troponin Coronary artery disease involving crow coronary artery of crow heart without angina pectoris - CABG planned [...] from the original note were not included. [facility] Urology Urology Progress Note Hospital Day: [...] from the original note were not included. [facility] Urology Urology Progress Note Hospital Day: [...] and relaxation without help. Message sent to plant operations manager and 1x dose valium ordered. Pt noted [...] PM EDTAssociated Problem(s): Coronary artery disease involving crow coronary artery of crow heart without angina pectoris - diffuse severe [...] from the original note were not included. [facility] Urology Urology Progress Note Hospital Day: 2 [...] Rogers APRN - 12/01/2024 8:50 AM EDT [facility] History and Physical Name: Alex Hoffman ADDRESS: [address] [place] [address] [place] [address] : 1975 AGE: 49 y.o. ASSESSMENT: Ureteral [...] disease) Heartburn Hyperlipidemia Hypertension Kidney mass left OK (myocardial infarction) (HCC) 09/17/2024 Motion sickness Past Surgical History: Procedure Laterality Date CARDIAC CATHETERIZATION CORONARY ANGIOPLASTY WITH STENT PLACEMENT Sep 19 2022 CYSTOSCOPY 10/27/2024 Surgeon: Patricia Ellison MD; Location: [facility]; Service: Urology Prior to Admission [...] left radical nephroureterectomy. SURGEON Sadi Haney MD BUILDING SERVICES ENGINEER See OR record ANESTHESIS General. ESTIMATED BLOOD LOSS 100 mL. DRAINS 10 mm DAMIEN. TUBES 22 Kyrgyz Bradford catheter. COMPLICATIONS None. POSTOPERATIVE CONDITION Good. [...] in the midclavicular line. A 12 mm senior office support assistant sosa port was placed above the umbilicus. A 5 mm port for the senior office support assistant sosa was placed below the xiphoid process. The [...] Hoffman 1 PCP: Reyna Perez APRN Primary Institutional Commodity Analyst: None on file I would like to [...] disease) Heartburn Hyperlipidemia Hypertension Kidney mass left OK (myocardial infarction) (HCC) 09/17/2024 Motion sickness GLOVE MAKER Medications: Prior to Admission medications Medication Sig [...] CYSTOSCOPY 10/27/2024 Surgeon: Patricia Ellison MD; Location: [facility]; Service: Urology Allergy No Known [...] cardiovascular imaging studies available in [facility] EMR were reviewed at time of consultation [...] no acute ischemia appreciated -Trops -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 Pneumonia. Per primary. Bear Samuel MD, [facility] 12/02/2024 6:11 PM * Meng [...] disease) Heartburn Hyperlipidemia Hypertension Kidney mass left OK (myocardial infarction) (HCC) 09/17/2024 Motion sickness Past Surgical History: Procedure Laterality Date CARDIAC CATHETERIZATION CORONARY ANGIOPLASTY WITH STENT PLACEMENT Sep 19 2022 CYSTOSCOPY 10/27/2024 Surgeon: Patricia Ellison MD; Location: [facility] OR; Service: Urology No Known [...] left ureter (HCC) Coronary artery disease of crow artery of crow heart with stable angina pectoris Assessment and Plan Assessment & Plan 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 Plan per urology, follow path Coronary artery disease of crow artery of crow heart with stable angina pectoris - diffuse [...] EDT CLEARANCE REQUEST ATTENTION: Dr. Andrade Patient Alxe Hoffman 1975 DATE OF SURGERY: 12/01/2024 WITH Sadi Khoury MD FOR: GA LAPAROSCOPY NEPHRECTOMY W/TOTAL URETERECTOMY [99772] (LEFT DAVINCI ROBOTIC NEPHROURETERECTOMY, CYSTOSCOPY, TRANSURETHRAL RESECTION OF THE BLADDER TUMOR) GA LAPAROSCOPY RADICAL NEPHRECTOMY [36329] GA CYSTOURETHROSCOPY W/DEST &/RMVL MED BLADDER EMERY [31413] THE ANESTHESIA DEPARTMENT IS REQUESTING A CLEARANCE RELATED TO: Recent PCI. Also surgeons is requesting if blood thinner can be held ? Anesthesia type:General PLEASE RESPOND TO THIS ENCOUNTER OR CALL WITH ANY QUESTIONS/CONCERNS PHONE: [phone] Thank You [facility] PRE-ADMISSION TESTING DEPARTMENT * Shoshana Rankin RN - 11/23/2024 2:24 PM EDT REPORTS REQUEST ATTENTION:Reyna Perez PATIENT: Alex Hoffman : 1975 This patient is scheduled for surgery on 12/01/2024 with Sadi Khoury MD Anesthesia has requested the most recent results of the following tests: Most recent office visit note and any recent testing COMMENTS:__Thanks! Please fax to Pre-admission testing. PHONE # [phone] ATTENTION: [address] [id number] documented in this encounter Miscellaneous Notes * Utilization Review Notes - Gala Powell LPN - 12/08/2024 11:29 AM EDT DISCHARGED HOME ON 12/08/24 FOLLOW UP WITH Sadi Haney MD [address] [facility] [address] [facility] [address] Follow up in 2 week(s) follow up with Logan [place] MD [address] [facility] [place] [id number] Follow up in 2 week(s) To discuss re-intation of antiplatelet therapy and further CTS w/u Reyna Perez APRN [address] [facility] [address] [facility] [place] [address] Follow up in 1 week(s) Hospital [...] [place]. * Utilization Review Notes - Lisette Wolfe, RN - 12/06/2024 8:04 AM EDT Images from the original note were not included. [facility] REPRESENTATIVES FOR ADMIT ON 12/01 ON MED SURG [...] pending Elevated troponin Coronary artery disease involving crow coronary artery of crow heart without angina pectoris - CABG planned [...] - Will discuss bASA plans with attending net washer - on hold currently last dose 12/04. [...] to restart- no doses yet 12/04 - GLOVE MAKER Lasix 40gm QD, losartan 50mg QD, Toprol 25mg QD (on hold) Anemia - Hgb 10.2>7.5>8.1>7.9>7.3 - s/p 2 U PRBC's 12/03 and 1 U PRBC 12/04 CAD - EKG SR no acute ischemia appreciated - Trops > - Denies chest pain/ diaphoresis/ nausea - GLOVE MAKER Effient, ASA, Statin, Toprol - Echo 10/2024: EF 60-65%. - LHC showed ostial LAD 70% stenosis, circumflex (nondominant) with 60-70% stenosis, with 30-40% stenosis of first OM. Pt reports he had LHC and PCI on 09/27/24 (VIC x 1 to RCA) at [facility]. Pt was scheduled to have additional PCI to LAD and circ however pt wanted a second opinion for possible CABG surgery. Met with Dr. Kenny 10/10 with plans for CABG x 2 with QUINTIN clip on 10/30/24.however this was postponed until urology w/u is complete. Plan: - Supportive care per others - Continue statin, Toprol - Will discuss bASA plans with attending net washer - on hold currently last dose today [...] urology, follow path Coronary artery disease of crow artery of crow heart with stable angina pectoris - diffuse [...] EDT Office Visit [facility] [address] [place] [id number] Dorinda Rodriguez PA-C [address] [place] [address] 01/23/2025 9:00 AM EDT Office Visit [facility] [place] [address] [place] [address] Drive [address] [place] [address] Logan Kenny MD [address] [place] [address] [place] [address] Pending Results Name Type Priority Associated [...] Hoffman 1 PCP: Reyna Perez APRN Primary Institutional Commodity Analyst: None on file I would like to [...] disease) Heartburn Hyperlipidemia Hypertension Kidney mass left OK (myocardial infarction) ([facility]) 09/17/2024 Motion sickness GLOVE MAKER Medications: Prior to Admission medications Medication Sig [...] MD; Location: [facility] MAIN OR; Service: Urology Allergy No Known Allergies Patient Active Problem List Diagnosis ASHD (arteriosclerotic heart disease) 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) BP 118/53 (BP Location: Right arm) Pulse 103 Temp 98 F (36.7 C)(Oral) Resp 18 Ht 5' 8 (1.727 m) Wt 243 lb (110.2 kg) LvZ572% BMI 36.95 kg/m I/O 24 hours: Intake/Output Summary (Last 24 hours) at 12/02/2024 1156 Last data filed at 12/02/2024 1154 Gross per 24 hour Intake 7111.22 ml Output 1360 ml Net 5751.22 ml Diagnostic tests The most recent cardiovascular imaging studies available in [facility] EMR werereviewed at time of consultation Exam: [...] no acute ischemia appreciated -Trops -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 Pneumonia. Per primary. Bear Samuel MD, [facility] 12/02/2024 6:11 PM TROPONIN-T HIGH [...] disease) Heartburn Hyperlipidemia Hypertension Kidney mass left OK (myocardial infarction) (HCC) 09/17/2024 Motion sickness Past Surgical History: Procedure Laterality Date CARDIAC CATHETERIZATION CORONARY ANGIOPLASTY WITH STENT PLACEMENT Sep 19 2022 CYSTOSCOPY 10/27/2024 Surgeon: Patricia Ellison MD; Location: [facility] OR; Service: Urology No Known Allergies [...] Rate: 100 mL/hr at12/02/249[address], 1 g at 12/02/24 09 diphenhydrAMINE (BENADRYL) [...] times per day, Sadi Haney MD, Stopped at12/02/24709 losartan (COZAAR) tablet 50 mg, 50 mg, [...] left ureter (HCC) Coronary artery disease of crow artery of crow heart with stableangina pectoris Assessment and Plan Assessment & Plan 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 Planper urology, follow path Coronary artery disease of crow artery of crow heart with stableangina pectoris - diffuse severe [...] 11:21 AM EDT Ureteral mass Special Needs MAIKOL KNIFE, HANG WATER, OLYMPUS ESU, CYSTO FIRST, ROBERT ELLISON ASSISTINGsk GA CYSTOURETHROSCOPY W/DEST &/RMVL MED BLADDER EMERY 12/01/2024 11:21 AM EDT Ureteral mass Special Needs MAIKOL KNIFE, HANG WATER, OLYMPUS ESU, CYSTO FIRST, ROBERT Rodas GA LAPAROSCOPY RADICAL NEPHRECTOMY 12/01/2024 11:21 AM EDT Ureteral mass Special Needs LASSITER KNIFE, HANG WATER, OLYMPUS ESU, CYSTO FIRST, ROBERT Rodas GA LAPAROSCOPY NEPHRECTOMY W/TOTAL URETERECTOMY 12/01/2024 11:21 AM EDT Ureteral mass Special Needs LASSITER KNIFE, HANG WATER, OLYMPUS ESU, CYSTO FIRST, ROBERT Rodas US ANES GUIDANCE FOR POC PIEDAD 12/01/2024 9:47 AM EDT BB HISTORY CHECK STAT 12/01/2024 9:22 AM EDT Preop testing ABORH STAT 12/01/2024 9:22 AM EDT Preop testing RED BLOOD CELLS REQUEST [facility] 11/23/2024 2:10 PM EDT RED BLOOD CELLS REQUEST [facility] 11/23/2024 2:10 PM EDT documented [...] 12/08/2024 6:48 AM EDT [facility] Hct 28.5(L) 40.0 - 51.0 % 12/08/2024 6:48 AM EDT [facility] MCV 91.3 80.0 - 100.0 fL 12/08/2024 6:48 AM EDT [facility] MCH 29.8 26.0 - 34.0 pg 12/08/2024 6:48 AM EDT [facility] MCHC 32.6 30.7 - 35.5 g/dL 12/08/2024 6:48 AM EDT [facility] RDW 14.5 <=14.9 % 12/08/2024 6:48 AM EDT [facility] Platelet 292 155 - 369 x10(3)/mcL 12/08/2024 6:48 AM EDT [facility] [facility] MPV 9.5 8.8 - 12.5 fL 12/08/2024 6:48 AM EDT [facility] Neut Percent 71.4 % 12/08/2024 6:48 AM EDT [facility] Comment:Neutrophils equals s egs plus bands Imm Gran% 1.1 % 12/08/2024 6:48 AM EDT [facility] Comment:Automated count of m etamyelocytes, myelocytes and promyelocytes. IG >1% represents a left shift and provides an early indication of an infection or inflammatory process. Lymph Percent 14.3 % 12/08/2024 6:48 AM EDT [facility] [place] Percent 11.0 % 12/08/2024 6:48 AM EDT [facility] Eos Percent 1.9 % 12/08/2024 6:48 AM EDT [facility] Baso Percent 0.3 % 12/08/2024 6:48 AM EDT [facility] Neut # 6.7(H) 1.6 - 6.1 x10(3)/mcL 12/08/2024 6:48 AM EDT [facility] Comment:Neutrophils equals s egs plus bands IMMGRAN# 0.1 0.0 - 0.1 x10(3)/mcL 12/08/2024 6:48 AM EDT [facility] Comment:Automated count of m etamyelocytes, myelocytes and promyelocytes. An absolute IG <0.1 is reported as 0.0. Lymph # 1.3 1.2 - 3.9 x10(3)/mcL 12/08/2024 6:48 AM EDT [facility] [place] # 1.0(H) 0.3 - 0.9 x10(3)/mcL 12/08/2024 6:48 AM EDT [facility] Eos# 0.2 0.0 - 0.5 x10(3)/mcL 12/08/2024 6:48 AM EDT [facility] Baso # 0.0 0.0 - 0.1 x10(3)/mcL 12/08/2024 6:48 AM EDT [facility] Blood VENOUS BLOOD / Unknown Venipuncture / Unknown 12/08/2024 6:02 AM EDT 12/08/2024 6:35 AM EDT us Juana Shoemaker MD HEMATOLOGY ORDERABLES Final R esult [facility] [address] [facility] , [place] [address] * (ABNORMAL) BASIC METABOLIC PANEL (12/08/2024 6:02 AM EDT) Sodium 137 136 - 145 mmol/L 12/08/2024 7:09 AM EDT [facility] Potassium 3.7 3.5 - 5.0 mmol/L 12/08/2024 7:09 AM EDT [facility] Chloride 104 98 - 107 mmol/L 12/08/2024 7:09 AM EDT [facility] Total CO2 21(L) 22 - 29 mmol/L 12/08/2024 7:09 AM EDT [facility] Anion Gap 12 7 - 16 mmol/L 12/08/2024 7:09 AM EDT [facility] Calcium 9.3 8.6 - 10.4 mg/dL 12/08/2024 7:09 AM EDT [facility] Glucose Lvl 105(H) 70 - 99 mg/dL 12/08/2024 7:09 AM EDT [facility] BUN 11 6 - 20 mg/dL 12/08/2024 7:09 AM EDT [facility] Creatinine 0.96 0.67 - 1.30 mg/dL 12/08/2024 7:09 AM EDT [facility] eGFR (CKD-EPIcr 2020) 96 >=60 mL/min/1.7 3 m2 12/08/2024 7:09 AM EDT [facility] Comment:Estimated GFR was ca lculated using the CKD-EPIcr (2020) equation refit without race. The equation is recommended by the National Kidney [employer] - [place] [employer]ph[employer] Task Force. Blood VENOUS BLOOD / Unknown Venipuncture / Unknown 12/08/2024 6:02 AM EDT 12/08/2024 6:34 AM EDT us Juana Shoemaker MD CHEMISTRY ORDERABLES Final Re sult Performing Organization Address City/[facility]/ZIP Co de Phone Number [address], [place] [address] * ECG AND WAVEFORMS - TELEMETRY (12/07/2024 8:06 PM EDT) ECG INTERPRET NSR [facility] 12/07/2024 8:06 PM EDT Narrative [facility] - 12/07/2024 8:18 PM EDT ROUTINE (BS) GA 0.16 QRS 0.12 RR 0.65 QT 0.40 QTc 0.50 See Clinical Report link for waveform capture us Unknown Provider POINT OF CARE CARDIOLOGY Final Result Performing Organization Address [facility] Co de Phone Number [facility] [address] [place] [address] * [place] CYSTOGRAM MINIMUM 3 VW [...] examination was performed by Rachna Eller physician senior office support assistant sosa, under the supervision of Dr. Singh. A total fluoroscopy time of 1.2 minutes was used. 119 fluoroscopic spot images were saved to PACS. FINDINGS: Via Bradford catheter, 175 mL of water-soluble contrast was instilled retrograde into the urinary bladder. Imaging was performed in multiple projections. Road Roller Operator Hot Mix radiographs show a surgical drain over the [...] The examination was performed by Rachna Ellerphysician senior office support assistant sosa, under the supervision of Dr. Singh. A total fluoroscopy timeof 1.2 minutes was used. 119 fluoroscopic spot images were saved to PACS. FINDINGS: Via Bradford catheter, 175 mL of water-soluble contrast wasinstilled retrograde into the urinary bladder. Imaging was performed in multiple projections. Road Roller [employer] Mix radiographs show a surgical drain over the [...] please contactthe office of the ordering clinician. Peace Rea APRN IMG FLUOROSCOPY ORDERABLE S Final Result * ECG AND WAVEFORMS - TELEMETRY (12/07/2024 10:12 AM EDT) [facility] ECG INTERPRET NSR [facility] 12/07/2024 10:1 2 AM EDT Narrative [facility] - 12/07/2024 10:20 AM EDT (DT)ROUTINE GA 0.15 QRS 0.09 RR 0.73 QT 0.37 QTc 0.43 See Clinical Report link for waveform capture Unknown Provider POINT OF CARE CARDIOLOGY Final Result [facility] [address] [place] [address] * (ABNORMAL) CBC (12/07/2024 5:33 AM EDT) [facility] WBC 10.8(H) 3.7 - 10.3 x10(3)/mcL 12/07/2024 6:50 AM EDT [facility] RBC 3.23(L) 4.60 - 6.10 x10(6)/mcL [...] ORDERABLES Fin al Result Performing Organization Address City/State/[facility] Co de Phone Number [facility], [address] , [place] [address] * ECG AND WAVEFORMS - TELEMETRY (12/06/2024 11:04 PM EDT) ECG INTERPRET NSR [facility] 12/06/2024 11:0 4 PM EDT Narrative [facility] - 12/06/2024 11:37 PM EDT ROUTINE GA 0.13 QRS 0.12 RR 0.84 QT 0.40 QTc 0.43 See Clinical Report link for waveform capture us Unknown Provider POINT OF CARE CARDIOLOGY Final Result [facility] [address] [place] [address] * (ABNORMAL) C DIFF INTERPRETATION (12/06/2024 9:57 AM EDT) C Diff Toxin DNA Positive(A) Negative 12/06/2024 1:18 PM EDT [facility] NAP1 Presumptive Neg Presumptive Neg 12/06/2024 1:18 PM EDT [facility] GDH Antigen Positive(A) Negative 12/06/2024 1:18 PM EDT [facility] C diff toxin A/B Positive(A) Negative 12/06/2024 1:18 PM EDT [facility] Stool RECTUM STRUCTURE / Unknown Collection / Unknown 12/06/2024 9:57 AM EDT 12/06/2024 10:05 AM EDT Narrative [facility] - 12/06/2024 1:18 PM EDT Toxin producing C diff target DNA sequences detected. Toxins A/B positive. CDI likely. Consider initiation of severity-based CDI therapy according to CDI management guidance. Brody LINDQUIST MICROBIOLOGY - GENERAL ORDERABLE S Final Result Performing Organization Address [facility] Co de Phone Number [facility], [address] , [address] [place] [phone] * C DIFF GDH AG AND TOXIN A+B (12/06/2024 9:57 AM EDT) Stool RECTUM STRUCTURE / Unknown Collection / Unknown 12/06/2024 9:57 AM EDT 12/06/2024 10:05 AM EDT Brody LINDQUIST MICROBIOLOGY - GENERAL ORDERABLE S Final Result Performing Organization Address City/[facility]/ZIP Co de Phone Number [facility], [address] , [address] [place] [phone] * C DIFF TOXIN DNA (12/06/2024 9:57 AM EDT) Stool RECTUM STRUCTURE / Unknown Collection / Unknown 12/06/2024 9:57 AM EDT 12/06/2024 10:05 AM EDT us Brody LINDQUIST MICROBIOLOGY - GENERAL ORDERABLE S Final Result Performing Organization Address City/[facility]/ZIP Co de Phone Number [facility] [address] [facility], [place] [address] * ECG AND WAVEFORMS - TELEMETRY (12/06/2024 7:01 AM EDT) Pathologist [facility] ECG INTERPRET NSR [facility] 12/06/2024 7:01 AM EDT Narrative [facility] - 12/06/2024 8:04 AM EDT (DT)ROUTINE GA 0.17 QRS 0.09 RR 0.78 QT 0.38 QTc 0.42 See Clinical Report link for waveform capture us Unknown Provider POINT OF CARE CARDIOLOGY Final Result Performing Organization Address [facility] Co de Phone Number [facility] [address] [place] [address] * (ABNORMAL) CBC (12/06/2024 5:28 AM EDT) [...] 6:35 AM EDT [facility] MCHC 33.9 30.7 - 35.5 g/dL 12/06/2024 6:35 AM EDT [facility] RDW 14.4 <=14.9 % 12/06/2024 6:35 AM EDT [facility] [place] Platelet 217 155 - 369 x10(3)/mcL 12/06/2024 6:35 AM EDT [facility] MPV 9.7 8.8 - 12.5 fL 12/06/2024 6:35 AM EDT [facility] Blood VENOUS BLOOD / Unknown Venipuncture / Unknown 12/06/2024 5:28 AM EDT 12/06/2024 6:23 AM EDT Sadi Haney MD HEMATOLOGY ORDERABLES Fin al Result [facility], [address], [place] [address] * ECG AND WAVEFORMS - TELEMETRY (12/05/2024 7:00 PM EDT) Pathologist [facility] ECG INTERPRET Sinus Tachycardia [facility] 12/05/2024 7:00 PM EDT Narrative [facility] - 12/05/2024 9:36 PM EDT ROUTNE GA 0.13 QRS 0.12 RR 0.55 QT 0.34 QTc 0.46 See Clinical Report link for waveform capture Unknown Provider POINT OF CARE CARDIOLOGY Final Result Performing Organization Address City/[facility]/ZIP Co de Phone Number [facility] [address] [place] [address] * (ABNORMAL) HEMOGLOBIN AND HEMATOCRIT (12/05/2024 12:22 PM EDT) Hgb 9.4(L) 13.7 - 17.5 g/dL 12/05/2024 1:04 PM EDT [facility] Hct 27.8(L) 40.0 - 51.0 % 12/05/2024 1:04 PM EDT [facility] Blood VENOUS BLOOD / Unknown Venipuncture / Unknown 12/05/2024 12:22 PM EDT 12/05/2024 12:27 PM EDT us Juana Shoemaker MD HEMATOLOGY ORDERABLES Final R esult [facility] [address] [facility], [place] [address] * ECG AND WAVEFORMS - TELEMETRY (12/05/2024 8:03 AM EDT) Pathologist [facility] ECG INTERPRET NSR [facility] 12/05/2024 8:03 AM EDT Narrative [facility] - 12/05/2024 9:13 AM EDT GA 0.14 QRS 0.08 RR 0.72 QT 0.36 QTc 0.42 See Clinical Report link for waveform capture us Unknown Provider POINT OF CARE CARDIOLOGY Final Result Performing Organization Address [facility]/ZIP Co de Phone Number [facility] [address] [place] [address] * (ABNORMAL) CBC (12/05/2024 5:55 [...] 12/05/2024 7:34 AM EDT [facility] Platelet 187 155 - 369 x10(3)/mcL 12/05/2024 7:34 AM EDT [facility] MPV 9.9 8.8 - 12.5 fL 12/05/2024 7:34 AM EDT [facility] Blood VENOUS BLOOD / Unknown Venipuncture / Unknown 12/05/2024 5:55 AM EDT 12/05/2024 7:05 AM EDT Sadi Haney MD HEMATOLOGY ORDERABLES Fin al Result Performing Organization Address City/[facility]/ZIP Co de Phone Number [facility] [employer] [address] , [place] [address] * (ABNORMAL) HEMOGLOBIN AND HEMATOCRIT (12/04/2024 7:12 PM EDT) Hgb 8.9(L) 13.7 - 17.5 g/dL 12/04/2024 7:32 PM EDT [facility] Hct 26.5(L) 40.0 - 51.0 % 12/04/2024 7:32 PM EDT [facility] Blood VENOUS BLOOD / Unknown Venipuncture / Unknown 12/04/2024 7:12 PM EDT 12/04/2024 7:25 PM EDT Sadi Haney MD HEMATOLOGY ORDERABLES Fin al Result Performing Organization Address City/[facility] Co de Phone Number [facility] , [place] [address] * ECG AND WAVEFORMS - TELEMETRY (12/04/2024 7:00 PM EDT) Pathologist [facility] ECG INTERPRET NSR [facility] 12/04/2024 7:00 PM EDT Narrative [facility] - 12/05/2024 1:26 AM EDT ROUTINE(CW) GA 0.14 QRS 0.07 RR 0.77 QT 0.38 QTc 0.43 See Clinical Report link for waveform capture us Unknown Provider POINT OF CARE CARDIOLOGY Final Result Performing Organization Address [facility]/ZIP Co de Phone Number [facility] [address] [place] [address] * TRANSFUSE RED BLOOD CELLS (12/04/2024 3:25 PM EDT) us Peace A [place] SUPERVISOR CELL MAINTENANCE NURSING TREATMENT ORDERABLES - BLOOD ADMIN Edited Result - Final * TRANSFUSE RED BLOOD CELLS (12/04/2024 3:25 PM EDT) us Peace A [place] SUPERVISOR CELL MAINTENANCE NURSING TREATMENT ORDERABLES - BLOOD ADMIN Edited Result - Final * (ABNORMAL) HEMOGLOBIN AND HEMATOCRIT (12/04/2024 12:54 PM EDT) Hgb 8.2(L) 13.7 - 17.5 g/dL 12/04/2024 1:13 PM EDT [facility] Hct 24.7(L) 40.0 - 51.0 % 12/04/2024 1:13 PM EDT [facility] Blood VENOUS BLOOD / Unknown Venipuncture / Unknown 12/04/2024 12:54 PM EDT 12/04/2024 1:06 PM EDT us Peace A [place] SUPERVISOR CELL MAINTENANCE HEMATOLOGY ORDERABLES Fin al Result Performing Organization Address [facility] Co de Phone Number [facility] [address] [facility], [place] [address] * ECG AND WAVEFORMS - TELEMETRY (12/04/2024 7:56 AM EDT) ECG INTERPRET NSR [facility] 12/04/2024 7:56 AM EDT Narrative [facility] - 12/04/2024 11:08 PM EDT ROUTINE//AC GA 0.14 QRS 0.11 RR 0.76 QT 0.39 QTc 0.45 See Clinical Report link for waveform capture us Unknown Provider POINT OF CARE CARDIOLOGY Final Result Performing Organization Address City/[facility]/ZIP Co de Phone Number [facility] [address] [place] [address] * ECG AND WAVEFORMS - TELEMETRY (12/04/2024 7:56 AM EDT) [facility] ECG INTERPRET NSR [facility] 12/04/2024 7:56 AM EDT Narrative [facility] - 12/04/2024 8:01 AM EDT ROUTINE//AC GA 0.14 QRS 0.11 RR 0.76 QT 0.39 QTc 0.45 See Clinical Report link for waveform capture us Unknown Provider POINT OF CARE CARDIOLOGY Final Result Performing Organization Address [facility] Co de Phone Number [facility] 1 [place] [phone] * (ABNORMAL) IRON+TIBC (12/04/2024 5:52 AM EDT) [facility] Iron 27(L) 50 - 170 mcg/dL 12/05/2024 12:26 PM EDT [facility] Transferrin 160(L) 200 - 360 mg/dL 12/05/2024 12:26 PM EDT [facility] [employer] Saturation 12(L) 20 - 50 % 12/05/2024 12:26 PM EDT [facility] TIBC 224(L) 250 - 400 mcg/dL 12/05/2024 12:26 PM EDT [facility] Blood VENOUS BLOOD / Unknown Venipuncture / Unknown 12/04/2024 5:52 AM EDT 12/04/2024 6:01 AM EDT us Juana Shoemaker MD CHEMISTRY ORDERABLES Final Re sult Performing Organization Address City/[facility]/ZIP Co de Phone Number [facility] [address] [place] [address], [place] [address] * (ABNORMAL) BASIC METABOLIC PANEL (12/04/2024 5:52 AM EDT) [facility] Sodium 140 136 - 145 mmol/L 12/04/2024 6:38 AM EDT [facility] Potassium 3.9 3.5 - 5.0 mmol/L 12/04/2024 6:38 AM EDT [facility] Chloride 109(H) 98 - 107 mmol/L 12/04/2024 6:38 AM EDT [facility] Total CO2 23 22 - 29 mmol/L 12/04/2024 6:38 AM EDT [facility] Anion Gap 8 7 - 16 mmol/L 12/04/2024 6:38 AM EDT [facility] Calcium 8.3(L) 8.6 - 10.4 mg/dL 12/04/2024 6:38 AM EDT [facility] Glucose Lvl 93 70 - 99 mg/dL 12/04/2024 6:38 AM EDT [facility] BUN 9 6 - 20 mg/dL 12/04/2024 6:38 AM EDT [facility] Creatinine 1.07 0.67 - 1.30 mg/dL 12/04/2024 6:38 AM EDT [facility] eGFR (CKD-EPIcr 2020) 85 >=60 mL/min/1.7 3 m2 12/04/2024 6:38 AM EDT [facility] Comment:Estimated GFR was ca lculated using the CKD-EPIcr (2020) equation refit without race. The equation is recommended by the National Kidney [employer] - [place] [employer]ph[employer] Task Force. Blood VENOUS BLOOD / Unknown Venipuncture / Unknown 12/04/2024 5:52 AM EDT 12/04/2024 6:01 AM EDT Sadi Haney MD CHEMISTRY ORDERABLES Nadiya l Result [facility] [address] [facility] , [place] [address] * (ABNORMAL) CBC WITH DIFF [...] 6:13 AM EDT [facility] [place] Percent 10.4 % 12/04/2024 6:13 AM EDT [facility] Eos Percent 2.6 % 12/04/2024 6:13 AM EDT [facility] Baso Percent 0.3 % 12/04/2024 6:13 AM EDT [facility] Neut # 4.1 1.6 - 6.1 x10(3)/mcL 12/04/2024 6:13 AM EDT [facility] Comment:Neutrophils equals s egs plus bands IMMGRAN# 0.0 0.0 - 0.1 x10(3)/[facility] 12/04/2024 6:13 AM EDT [facility] Comment:Automated count of m etamyelocytes, myelocytes and promyelocytes. An absolute IG <0.1 is reported as 0.0. Lymph # 1.5 1.2 - 3.9 x10(3)/[facility] 12/04/2024 6:13 AM EDT [facility] [place] # 0.7 0.3 - 0.9 x10(3)/[facility] 12/04/2024 6:13 AM EDT [facility] Eos# 0.2 0.0 - 0.5 x10(3)/[facility] 12/04/2024 6:13 AM EDT [facility] Baso # 0.0 0.0 - 0.1 x10(3)/[facility] 12/04/2024 6:13 AM EDT [facility] Blood VENOUS BLOOD / Unknown Venipuncture / Unknown 12/04/2024 5:52 AM EDT 12/04/2024 6:01 AM EDT Sadi Haney MD HEMATOLOGY ORDERABLES Fin al Result [facility], [address], [place] [address] * ECG AND WAVEFORMS - TELEMETRY (12/03/2024 7:00 PM EDT) ECG INTERPRET NSR [facility] 12/03/2024 7:00 PM EDT Narrative [facility] - 12/03/2024 8:34 PM EDT ROUTINE(CW) GA 0.15 QRS 0.06 RR 0.60 QT 0.27 QTc 0.35 See Clinical Report link for waveform capture us Unknown Provider POINT OF CARE CARDIOLOGY Final Result [facility] 1 [place] [address] * (ABNORMAL) HEMOGLOBIN AND HEMATOCRIT (12/03/2024 10:44 AM EDT) Hgb 7.9(L) 13.7 - 17.5 g/dL 12/03/2024 11:50 AM EDT [facility] Hct 23.7(L) 40.0 - 51.0 % 12/03/2024 11:50 AM EDT [facility] Blood VENOUS BLOOD / Unknown Venipuncture / Unknown 12/03/2024 10:44 AM EDT 12/03/2024 10:54 AM EDT us Meng Chen MD HEMATOLOGY ORDERABLES Final Res ult [facility] [address] [facility], [place] [address] * ECG AND WAVEFORMS - TELEMETRY (12/03/2024 7:00 AM EDT) [facility] ECG INTERPRET NSR [facility] 12/03/2024 7:00 AM EDT Narrative [facility] - 12/03/2024 7:58 AM EDT [place] ROUTINE GA 0.14 QRS 0.09 RR 0.66 QT 0.35 See Clinical Report link for waveform capture us Unknown Provider POINT OF CARE CARDIOLOGY Final Result [facility] 1 [place] [address] * (ABNORMAL) HEMOGLOBIN AND HEMATOCRIT (12/03/2024 4:48 AM EDT) Pathologist [facility] Hgb 8.0(L) 13.7 - 17.5 g/dL 12/03/2024 5:08 AM EDT [facility] Hct 24.4(L) 40.0 - 51.0 % 12/03/2024 5:08 AM EDT [facility] Blood VENOUS BLOOD / Unknown Venipuncture / Unknown 12/03/2024 4:48 AM EDT 12/03/2024 4:58 AM EDT Meng Chen MD HEMATOLOGY ORDERABLES Final Res ult Performing Organization Address City/[facility]/ZIP Co de Phone Number [facility] [address] [facility] , [place] [address] * TRANSFUSE RED BLOOD CELLS (12/03/2024 4:00 AM EDT) Sadi Haney MD NURSING TREATMENT ORDERAB LES - BLOOD ADMIN Final Result * TRANSFUSE RED BLOOD CELLS (12/03/2024 4:00 AM EDT) Sadi Haney MD NURSING TREATMENT ORDERAB LES - BLOOD ADMIN Final Result * (ABNORMAL) TROPONIN-T HIGH SENSITIVITY 6 HR (12/03/2024 3:40 AM EDT) ol-qFxnugurx-S 6HR 37(H) <22 ng/L 12/03/2024 4:43 AM EDT [facility] hs-cTnT 6Hr Delta from Baseline 11 <12 ng/L 12/03/2024 4:43 AM EDT [facility] Blood VENOUS BLOOD / Unknown Venipuncture / Unknown 12/03/2024 3:40 AM EDT 12/03/2024 4:11 AM EDT Narrative [facility] - 12/03/2024 4:43 AM EDT Ingestion of josé miguel doses of biotin (>5 mg/day) taken within 8 hours of drawing blood sample can interfere with this immunoassay test. Rachna Wood SUPERVISOR CELL MAINTENANCE CHEMISTRY ORDERABLES Fin al Result Performing Organization Address City/[facility]/ZIP Co de Phone Number [facility] [address] [facility] , [place] [address] * (ABNORMAL) BASIC METABOLIC PANEL (12/03/2024 3:40 AM EDT) Sodium 142 136 - 145 mmol/L 12/03/2024 4:42 AM EDT [facility] Potassium 4.2 3.5 - 5.0 mmol/L 12/03/2024 4:42 AM EDT [facility] Chloride 111(H) 98 - 107 mmol/L 12/03/2024 4:42 AM EDT [facility] Total CO2 21(L) 22 - 29 mmol/L 12/03/2024 4:42 AM EDT [facility], [facility] Anion Gap 10 7 - 16 mmol/L 12/03/2024 4:42 AM EDT [facility], [facility] Calcium 8.1(L) 8.6 - 10.4 mg/dL 12/03/2024 4:42 AM EDT [facility] Glucose Lvl 105(H) 70 - 99 mg/dL 12/03/2024 4:42 AM EDT [facility] BUN 15 6 - 20 mg/dL 12/03/2024 4:42 AM EDT [facility], [facility] Creatinine 1.25 0.67 - 1.30 mg/dL 12/03/2024 4:42 AM EDT [facility] eGFR (CKD-EPIcr 2020) 70 >=60 mL/min/1.7 3 m2 12/03/2024 4:42 AM EDT [facility] Comment:Estimated GFR was ca lculated using the CKD-EPIcr (2020) equation refit without race. The equation is recommended by the [employer] - [place] [employer] Task Force. Blood VENOUS BLOOD / Unknown Venipuncture / Unknown 12/03/2024 3:40 AM EDT 12/03/2024 4:11 AM EDT Sadi Haney MD CHEMISTRY ORDERABLES Nadiya nichols Result [facility] [address] [facility] , [address] [place] [address] * (ABNORMAL) CBC WITH DIFF (12/03/2024 3:40 AM EDT) WBC 9.5 3.7 - 10.3 x10(3)/mcL 12/03/2024 4:22 AM EDT [facility] RBC 2.67(L) 4.60 - 6.10 x10(6)/mcL 12/03/2024 [...] 4:22 AM EDT [facility] [place] Percent 11.5 % 12/03/2024 4:22 AM EDT [facility] Eos Percent 0.6 % 12/03/2024 4:22 AM EDT [facility] Baso Percent 0.2 % 12/03/2024 4:22 AM EDT [facility] Neut # 6.7(H) 1.6 - 6.1 x10(3)/mcL 12/03/2024 4:22 AM EDT [facility] Comment:Neutrophils equals s egs plus bands IMMGRAN# 0.0 0.0 - 0.1 x10(3)/mcL 12/03/2024 4:22 AM EDT [facility] Comment:Automated count of m etamyelocytes, myelocytes and promyelocytes. An absolute IG <0.1 is reported as 0.0. Lymph # 1.6 1.2 - 3.9 x10(3)/[facility] 12/03/2024 4:22 AM EDT [facility] [place], [facility] [place] # 1.1(H) 0.3 - 0.9 x10(3)/[facility] 12/03/2024 4:22 AM EDT [facility], [facility] Eos# 0.1 0.0 - 0.5 x10(3)/[facility] [facility] 12/03/2024 4:22 AM EDT [facility], [facility] Baso # 0.0 0.0 - 0.1 x10(3)/[facility] 12/03/2024 4:22 AM EDT [facility] Blood VENOUS BLOOD / Unknown Venipuncture / Unknown 12/03/2024 3:40 AM EDT 12/03/2024 4:11 AM EDT us Sadi Haney MD HEMATOLOGY ORDERABLES Fin al Result [facility] [address] [facility] , [place] [address] * TRANSFUSE RED BLOOD CELLS (12/03/2024 1:03 AM EDT) us Sadi Haney MD NURSING TREATMENT ORDERAB LES - BLOOD ADMIN Final Result * TRANSFUSE RED BLOOD CELLS (12/03/2024 1:03 AM EDT) us Sadi Haney MD NURSING TREATMENT ORDERAB LES - BLOOD ADMIN Final Result * (ABNORMAL) TROPONIN-T HIGH SENSITIVITY 2HR (12/02/2024 10:14 PM EDT) [facility] gs-yOjqrvqqf-Z 2HR 33(H) <22 ng/L 12/02/2024 11:02 PM EDT [facility] hs-cTnT 2Hr Delta from Baseline 7(H) <4 ng/L 12/02/2024 11:02 PM EDT [facility] VENOUS BLOOD / Unknown Venipuncture / Unknown 12/02/2024 10:14 PM EDT 12/02/2024 10:33 PM EDT Narrative [facility] - 12/02/2024 11:02 PM EDT Ingestion of josé miguel doses of biotin (>5 mg/day) taken within 8 hours of drawing blood sample can interfere with this immunoassay test. us Rachna Wood SUPERVISOR CELL MAINTENANCE CHEMISTRY ORDERABLES Fin al Result [facility] [address] [facility] , [place] [address] * CT ABDOMEN PELVIS W CONTRAST (12/02/2024 [...] BASELINE W/ REFLEX (12/02/2024 7:34 PM EDT) lq-lQqwbxcgo-Q 26(H) <22 ng/L 12/02/2024 8:05 PM EDT [facility], [facility] Blood VENOUS BLOOD / Unknown Venipuncture / Unknown 12/02/2024 7:34 PM EDT 12/02/2024 7:37 PM EDT Narrative [facility] - 12/02/2024 8:05 PM EDT Ingestion of josé miguel doses of biotin (>5 mg/day) taken within 8 hours of drawing blood sample can interfere with this immunoassay test. us Rachna Wood SUPERVISOR CELL MAINTENANCE CHEMISTRY ORDERABLES Fin al Result [facility] [address] [facility] , [place] [address] * EK EKG 12 LEAD (12/02/2024 7:13 PM EDT) Anatomical Region Laterality Modality Electrocardiogra phy 12/02/2024 7:21 PM EDT Impressions 12/03/2024 11:[address] 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1975 Requested By: RACHNA Gutierrez Order Number: [id number] Reading MD: Edelmira Ramsey DO Measurements Intervals [place] Rate: 123 P: 131 GA: 167 QRS: 1 QRSD: 90 T: 72 QT: 319 QTc: 457 Interpretive Statements SINUS TACHYCARDIA NONSPECIFIC ST & T-WAVE ABNORMALITY ABNORMAL RHYTHM ECG Electronically Signed On 12-03-2024 11:25:42 EDT by Edelmira Ramsey DO us Rachna Wood SUPERVISOR CELL MAINTENANCE IMG ECG ORDERABLES Final Result * ECG AND WAVEFORMS - TELEMETRY (12/02/2024 7:00 PM EDT) Pathologist [facility] ECG INTERPRET Sinus Tachycardia [facility] 12/02/2024 7:00 PM EDT Narrative [facility] - 12/02/2024 7:47 PM EDT ROUTINE(CW) GA 0.10 QRS 0.05 RR 0.40 QT 0.27 QTc 0.43 See Clinical Report link for waveform capture us Unknown Provider POINT OF CARE CARDIOLOGY Final Result Performing Organization Address [facility]/ZIP Co de Phone Number [facility] [address] [place] [address] * (ABNORMAL) HEMOGLOBIN AND HEMATOCRIT (12/02/2024 6:17 PM EDT) Pathologist [facility] Hgb 7.5(L) 13.7 - 17.5 g/dL 12/02/2024 6:54 PM EDT [facility] Hct 22.9(L) 40.0 - 51.0 % 12/02/2024 6:54 PM EDT [facility] Blood VENOUS BLOOD / Unknown Venipuncture / Unknown 12/02/2024 6:17 PM EDT 12/02/2024 6:25 PM EDT us Meng Chen MD HEMATOLOGY ORDERABLES Final Res ult [facility]REF[facility]ED [facility], [facility] [address] [facility], [place] [address] * REPEAT LACTIC ACID (12/02/2024 6:17 PM EDT) Lactic Acid 1.6 0.5 - 1.9 mmol/L 12/02/2024 6:44 PM EDT [facility] Blood VENOUS BLOOD / Unknown Venipuncture / Unknown 12/02/2024 6:17 PM EDT 12/02/2024 6:25 PM EDT Meng Chen MD CHEMISTRY ORDERABLES Final Resu lt Performing Organization Address City/[facility]/ZIP Co de Phone Number [facility] [address] [facility] , [place] [address] * (ABNORMAL) REPEAT LACTIC ACID (12/02/2024 3:49 PM EDT) Lactic Acid 2.9(H) 0.5 - 1.9 mmol/L 12/02/2024 4:29 PM EDT [facility] Blood VENOUS BLOOD / Unknown Venipuncture / Unknown 12/02/2024 3:49 PM EDT 12/02/2024 3:55 PM EDT Meng Chen MD CHEMISTRY ORDERABLES Final Resu lt Performing Organization Address City/[facility] Co de Phone Number [facility] [address] [facility] , [place] [address] * ECG AND WAVEFORMS - TELEMETRY (12/02/2024 3:11 PM EDT) ECG INTERPRET Sinus Tachycardia [facility] Comment: notified 12/02/2024 3:11 PM EDT Narrative [facility] - 12/02/2024 3:13 PM EDT [place] ROUTINE See Clinical Report link for waveform capture us Unknown Provider POINT OF CARE CARDIOLOGY Final Result [facility] [address] [place] [address] * (ABNORMAL) LACTIC ACID (12/02/2024 1:42 PM EDT) Lactic Acid 3.2(H) 0.5 - 1.9 mmol/L 12/02/2024 2:16 PM EDT [facility] Blood VENOUS BLOOD / Unknown Venipuncture / Unknown 12/02/2024 1:42 PM EDT 12/02/2024 1:52 PM EDT Meng Chen MD CHEMISTRY ORDERABLES Final Resu lt Performing Organization Address [facility]/ZIP Co de Phone Number [facility] [address] [facility] , [place] [address] * BLOOD CULTURE (NO STAIN) (12/02/2024 1:42 PM EDT) Pathologist [facility] Culture Result No Growth at 120 hours. BLOOD CULTURE (NO STAIN) 12/07/2024 3:00 PM EDT [facility] Blood VENOUS BLOOD / Unknown Venipuncture / Unknown 12/02/2024 1:42 PM EDT 12/02/2024 1:53 PM EDT Meng Chen MD MICROBIOLOGY - GENERAL ORDERABL ES Final Result Performing Organization Address [facility] Co de Phone Number [facility] [address] [facility] , [place] [address] * ECG AND WAVEFORMS - TELEMETRY (12/02/2024 12:27 PM EDT) [facility] ECG INTERPRET Sinus Tachycardia [facility] Comment:aysmptomatic on asse ssment 12/02/2024 12:2 7 PM EDT Narrative [facility] - 12/02/2024 12:50 PM EDT [place] ROUTINE GA 0.13 QRS 0.10 RR 0.50 QT 0.32 See Clinical Report link for waveform capture Unknown Provider POINT OF CARE CARDIOLOGY Final Result Performing Organization Address City/[facility]/ZIP Co de Phone Number [facility] [address] [place] [address] * (ABNORMAL) REPEAT LACTIC ACID (12/02/2024 10:59 AM EDT) Pathologist [facility] Lactic Acid 2.8(H) 0.5 - 1.9 mmol/L 12/02/2024 11:16 AM EDT [facility] Blood VENOUS BLOOD / Unknown Venipuncture / Unknown 12/02/2024 10:59 AM EDT 12/02/2024 10:59 AM EDT Sundar Kessler APRN CHEMISTRY ORDERABLES Final Result Performing Organization Address [facility] Co de Phone Number [facility] [address] [place] [address] * URINE CULTURE (NO STAIN) (12/02/2024 10:53 AM EDT) Culture No growth at 30 hours. 12/04/2024 6:38 AM EDT [facility] Urine URINARY BLADDER STRUCTURE / Unknown 12/02/2024 10:53 AM EDT 12/02/2024 11:12 AM EDT Sunadr Kessler APRN MICROBIOLOGY - GENER AL ORDERABLES Final Result Performing Organization Address [facility] Co de Phone Number [facility] [address] [facility], [place] [address] * EXTRA SWENSON URINE CX (12/02/2024 10:53 AM EDT) Urine URINE SPECIMEN OBTAINED VIA INDWELLING URINARY CATHETER / Unknown 12/02/2024 10:53 AM EDT 12/02/2024 10:59 AM EDT Sundar Kessler APRN MICROBIOLOGY - GENER AL ORDERABLES Final Result Performing Organization Address [facility] Co de Phone Number [facility] [address] [place] [address] * (ABNORMAL) URINALYSIS REFLEX (12/02/2024 10:53 AM EDT) UA Color Red 12/02/2024 11:12 AM EDT [facility] UA Appear Cloudy(A) Clear 12/02/2024 11:12 AM EDT [facility] UA Glucose Negative Negative mg/dL 12/02/2024 [...] 12/02/2024 10:59 AM EDT us Sundar Kessler SUPERVISOR CELL MAINTENANCE URINE ORDERABLES Fin al Result [facility], [facility] [address] [facility] , [place] [address] * BLOOD CULTURE (NO STAIN) (12/02/2024 10:51 AM EDT) Culture Result No Growth at 120 hours. BLOOD CULTURE (NO STAIN) 12/07/2024 1:00 PM EDT [facility] Blood VENOUS BLOOD / Unknown Venipuncture / Unknown 12/02/2024 10:51 AM EDT 12/02/2024 10:51 AM EDT us Meng Chen MD MICROBIOLOGY - GENERAL ORDERABL ES Final Result [facility] [address] [facility] , [place] [address] * XR CHEST AP PORTABLE (12/02/2024 9:55 [...] - 17.5 g/dL 12/02/2024 10:12 AM EDT [facility] [employer] Hct 24.7(L) 40.0 - 51.0 % 12/02/2024 10:12 AM EDT [facility] Blood VENOUS BLOOD / Unknown Venipuncture / Unknown 12/02/2024 9:22 AM EDT 12/02/2024 9:48 AM EDT Peace Rea SUPERVISOR CELL MAINTENANCE HEMATOLOGY ORDERABLES Fin al Result [facility] [address], [place] [address] * (ABNORMAL) REPEAT LACTIC ACID (12/02/2024 9:22 AM EDT) Lactic Acid 2.3(H) 0.5 - 1.9 mmol/L 12/02/2024 10:00 AM EDT [facility] Blood VENOUS BLOOD / Unknown Venipuncture / Unknown 12/02/2024 9:22 AM EDT 12/02/2024 9:46 AM EDT Sundar Kessler SUPERVISOR CELL MAINTENANCE CHEMISTRY ORDERABLES Final Result [facility] [address] [place] [address] * (ABNORMAL) TROPONIN-T HIGH SENSITIVITY 2HR (12/02/2024 9:22 AM EDT) ql-pNgfzknyy-L 2HR 26(H) <22 ng/L 12/02/2024 10:04 AM EDT [facility] hs-cTnT 2Hr Delta from Baseline -1 <4 ng/L 12/02/2024 10:04 AM EDT [facility] Blood VENOUS BLOOD / Unknown Venipuncture / Unknown 12/02/2024 9:22 AM EDT 12/02/2024 9:46 AM EDT Narrative [facility] - 12/02/2024 10:04 AM EDT Ingestion of josé miguel doses of biotin (>5 mg/day) taken within 8 hours of drawing blood sample can interfere with this immunoassay test. [employer] CHEMISTRY ORDERABLES Final Result Performing Organization Address [facility] de Phone Number [facility] [address] [place] [address] * (ABNORMAL) TROPONIN-T HIGH SENSITIVITY BASELINE W/ REFLEX (12/02/2024 7:08 AM EDT) sa-uCjonmtbc-W 27(H) <22 ng/L 12/02/2024 7:42 AM EDT [facility] Blood VENOUS BLOOD / Unknown Venipuncture / Unknown 12/02/2024 7:08 AM EDT 12/02/2024 7:14 AM EDT Narrative [facility] - 12/02/2024 7:42 AM EDT Ingestion of josé miguel doses of biotin (>5 mg/day) taken within 8 hours of drawing blood sample can interfere with this immunoassay test. [employer] CHEMISTRY ORDERABLES Final Result Performing Organization Address City/[facility]/ZIP Co de Phone Number [facility] [address] [facility], [place] [address] * (ABNORMAL) REPEAT LACTIC ACID (12/02/2024 7:08 AM EDT) Lactic Acid 3.1(H) 0.5 - 1.9 mmol/L 12/02/2024 7:35 AM EDT [facility] Blood VENOUS BLOOD / Unknown Venipuncture / Unknown 12/02/2024 7:08 AM EDT 12/02/2024 7:15 AM EDT us Sundar Kessler SUPERVISOR CELL MAINTENANCE CHEMISTRY ORDERABLES Final Result [facility] [address] [facility], [place] [address] * EK EKG 12 LEAD (12/02/2024 7:01 AM EDT) Anatomical Region Laterality Modality Electrocardiogra phy 12/02/2024 7:17 AM EDT Impressions 12/02/2024 1:[address] 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: Murray : 1975 Requested By: SUNDAR MORENO Order Number: [id number] Reading MD: Forrest Johnston MD Measurements Intervals [place] Rate: 92 P: 46 GA: 132 QRS: 13 QRSD: 85 T: 33 QT: 367 QTc: 454 Interpretive Statements SINUS RHYTHM Electronically Signed On 12-02-2024 13:57:21 EDT by Forrest Johnston MD Sundar Kessler APRN IMG ECG ORDERABLES F inal Result * (ABNORMAL) PROCALCITONIN (12/02/2024 5:05 AM EDT) Procalcitonin 0.62(H) <=0.49 ng/mL 12/02/2024 5:52 AM EDT [facility] Blood VENOUS BLOOD / Unknown Venipuncture / Unknown 12/02/2024 5:05 AM EDT 12/02/2024 5:11 AM EDT Narrative [facility] - 12/02/2024 5:52 AM EDT Procalcitonin <0.50 [...] Sundar Kessler APRN CHEMISTRY ORDERABLES Final Result [facility] [address] [facility] , [place] [address] * (ABNORMAL) LACTIC ACID (12/02/2024 5:04 AM EDT) Lactic Acid 3.5(H) 0.5 - 1.9 mmol/L 12/02/2024 5:31 AM EDT [facility], [facility] Blood VENOUS BLOOD / Unknown Venipuncture / Unknown 12/02/2024 5:04 AM EDT 12/02/2024 5:11 AM EDT Sundar Kessler DEMETRIUS CHEMISTRY ORDERABLES Final Result Performing Organization Address [facility] Co de Phone Number [facility], [address] , [place] [address] * CREATININE BODY FLUID (12/02/2024 4:12 AM EDT) Pathologist [facility] Creatinine BF 1.15 0.67 - 1.30 mg/dL 12/02/2024 5:03 AM EDT [facility], [facility] Body Fluid ABDOMEN / Unknown Collection / Unknown 12/02/2024 4:12 AM EDT 12/02/2024 4:29 AM EDT Narrative [facility], [facility] - 12/02/2024 5:03 AM EDT A reference interval for this test has not been established for body fluid specimens. The reference range listed reflects normal concentration of this analyte in blood. Sadi Haney MD BODY FLUIDS AND STOOLS OR DERABLES Final Result Performing Organization Address [facility] de Phone Number [facility] , [place] [address] * (ABNORMAL) CBC WITH DIFF (12/02/2024 3:47 AM EDT) WBC 21.8(H) 3.7 - 10.3 x10(3)/mc L 12/02/2024 4:21 AM EDT [facility], [facility] RBC 3.37(L) 4.60 - 6.10 x10(6)/mc L 12/02/2024 4:21 AM EDT [facility], [facility] Hgb 10.2(L) 13.7 - 17.5 g/dL 12/02/2024 4:21 AM EDT [facility] Hct 30.8(L) 40.0 - 51.0 % 12/02/2024 4:21 AM EDT [facility] MCV 91.4 80.0 - 100.0 fL 12/02/2024 4:21 AM EDT [facility] MCH 30.3 26.0 - 34.0 pg 12/02/2024 4:21 AM EDT [facility] MCHC 33.1 30.7 - 35.5 g/dL 12/02/2024 4:21 AM EDT [facility] RDW 13.9 <=14.9 % 12/02/2024 4:21 AM EDT [facility] Platelet 389(H) 155 - 369 x10(3)/mc L 12/02/2024 4:21 AM EDT [facility] MPV 9.7 8.8 - 12.5 fL 12/02/2024 4:21 AM EDT [facility] Neut Percent 82.1 % 12/02/2024 4:21 AM EDT [facility] Comment:Neutrophils equals s egs plus bands Imm Gran% 0.7 % 12/02/2024 4:21 AM EDT [facility] Comment:Automated count of m etamyelocytes, myelocytes and promyelocytes. Lymph Percent 6.6 % 12/02/2024 4:21 AM EDT [facility] [place] Percent 10.4 % 12/02/2024 4:21 AM EDT [facility] Eos Percent 0.1 % 12/02/2024 4:21 AM EDT [facility] Baso Percent 0.1 % 12/02/2024 4:21 AM EDT [facility] Neut # 17.9(H) 1.6 - 6.1 x10(3)/mc L 12/02/2024 4:21 AM EDT [facility] Comment:Neutrophils equals s egs plus bands IMMGRAN# 0.2(H) 0.0 - 0.1 x10(3)/mc L 12/02/2024 4:21 AM EDT [facility] Comment:Automated count of m etamyelocytes, myelocytes and promyelocytes. An absolute IG <0.1 is reported as 0.0. Lymph # 1.4 1.2 - 3.9 x10(3)/mc L 12/02/2024 4:21 AM EDT [facility] [place] # 2.3(H) 0.3 - 0.9 x10(3)/mc L 12/02/2024 4:21 AM EDT [facility] Eos# 0.0 0.0 - 0.5 x10(3)/mc L 12/02/2024 4:21 AM EDT [facility] Baso # 0.0 0.0 - 0.1 x10(3)/mc L 12/02/2024 4:21 AM EDT [facility] RBC Morph Consistent with Red Cell Indices no units 12/02/2024 4:21 AM EDT [facility], [facility] Blood VENOUS BLOOD / Unknown Venipuncture / Unknown 12/02/2024 3:47 AM EDT 12/02/2024 3:50 AM EDT Sadi Haney MD HEMATOLOGY ORDERABLES Fin al Result [facility] [address] [facility] , [address] [place] [id number] * (ABNORMAL) BASIC METABOLIC PANEL (12/02/2024 3:46 AM EDT) Sodium 136 136 - 145 mmol/L 12/02/2024 4:07 AM EDT [facility] Potassium 4.8 3.5 - 5.0 mmol/L 12/02/2024 4:07 AM EDT [facility] Chloride 103 98 - 107 mmol/L 12/02/2024 4:07 AM EDT [facility] Total CO2 17(L) 22 - 29 mmol/L 12/02/2024 4:07 AM EDT [facility] Anion Gap 16 7 - 16 mmol/L 12/02/2024 4:07 AM EDT [facility] Calcium 8.0(L) 8.6 - 10.4 mg/dL 12/02/2024 4:07 AM EDT [facility] Glucose Lvl 156(H) 70 - 99 mg/dL 12/02/2024 4:07 AM EDT [facility] BUN 21(H) 6 - 20 mg/dL 12/02/2024 4:07 AM EDT [facility] Creatinine 1.61(H) 0.67 - 1.30 mg/dL 12/02/2024 4:07 AM EDT [facility] eGFR (CKD-EPIcr 2020) 52(L) >=60 mL/min/1.7 3 m2 12/02/2024 4:07 AM EDT [facility] Comment:Estimated GFR was ca lculated using the CKD-EPIcr (2020) equation refit without race. The equation is recommended by the National Kid[employer] - [place] [employer]ph[employer] Task Force. Blood VENOUS BLOOD / Unknown Venipuncture / Unknown 12/02/2024 3:46 AM EDT 12/02/2024 3:50 AM EDT Peace Rea APRN CHEMISTRY ORDERABLES Nadiya l Result [address] [address] * (ABNORMAL) GLUCOSE METER POC (12/02/2024 2:58 AM EDT) [facility] Glucose Meter POC 148(H) 70 - 100 mg/dL 12/02/2024 3:00 AM EDT [facility] Sample Type Capillary 12/02/2024 3:00 AM EDT [facility] Patient Status Non-Critical Patient 12/02/2024 3:00 AM EDT [facility] Blood BLOOD SPECIMEN / Unknown 12/02/2024 2:58 AM EDT 12/02/2024 3:00 AM EDT Sadi Haney MD POINT OF CARE TEST ORDERA BLES Final Result Performing Organization Address City/[facility]/ZIP Co de Phone Number [address] [address] * PATHOLOGY TISSUE REQUEST (12/01/2024 3:36 PM EDT) CASE REPORT Surgical Pathology Case: [id number] Authorizing Provider: Sadi Haney MD Collected: 12/01/2024 1536 Ordering Location: ED SURGERY Received: 12/01/2024 1631 Pathologist: Gayle Bahena MD Specimen: Kidney, Left, Left kidney and ureter,along with bladder cuff 12/05/2024 4:20 PM EDT [facility] FINAL DIAGNOSIS Kidney and ureter, left radical nephroureterectomy with bladder cuff: - Ureter: - Noninvasive low-grade papillary urothelial carcinoma, 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 - Resection margins negative for carcinoma - Kidney and bladder cuff with chronic inflammation, negative for carcinoma. - Adrenal gland negative for carcinoma. - See synoptic report for details. 12/05/2024 4:20 PM EDT [facility] at 1620 EDT GROSS DESCRIPTION [...] 0.5 to 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 Transverse Abdominal Muscle Nurse sections are submitted as follows: A1-A3 = entire mass at UPJ to include adjacent uninvolved proximal ureter A4 = remaining proximal ureter A5-A6 = textile machinery sales representative dilated calyces A7-A8 equal all distal ureter with perpendicular bladder margin A9 = vascular margins from kidney A10 = all areas suggestive of adrenal parenchyma A11 = 1 bisected lymph node candidate A12 = 1 trisected lymph node candidate A13-A14 = largest lymph node candidate, trisected Beth RIK Pressley PA (ASCP) 12/05/2024 4:20 PM EDT [facility] MICROSCOPIC DESCRIPTION The microscopic examination may have been rendered in whole, or in part, by analyzing high-resolution digital images (whole slide images) on the [employer] Digital Pathology platform validated at [facility]. 12/05/2024 4:20 PM EDT [facility] BEST TISSUE BLOCK FOR ANCILLARY STUDIES A3 12/05/2024 4:20 PM T [facility] SYNOPTIC REPORT CHECKLIST URETER, RENAL PELVIS: Resection [...] limited to this pathology report. pT Category: cigar sorter pN Category: pN not assigned (no nodes submitted or found) ADDITIONAL FINDINGS Pathologic Findings in Ipsilateral Nonneoplastic Renal Tissue: None identified 12/05/2024 4:20 PM EDT [facility] EMBEDDED IMAGES 12/05/2024 4:20 PM EDT [facility] Tissue LEFT KIDNEY STRUCTURE / Unknown 12/01/2024 3:36 PM EDT 12/01/2024 4:31 PM EDT Sadi Haney MD PATHOLOGY ORDERABLES Nadiya l Result Performing Organization Address City/[facility]/ZIP Co de Phone Number [facility] [address] [place] [address] [address] * US ANES GUIDANCE FOR POC (12/01/2024 [...] Previous History OK 12/01/2024 9:30 AM EDT [facility] Blood VENOUS BLOOD / Unknown Venipuncture / Unknown 12/01/2024 9:22 AM EDT 12/01/2024 9:26 AM EDT Sadi Haney MD BLOOD BANK ORDERABLES Fin al Result Performing Organization Address City/[facility]/ZIP Co de Phone Number [facility] [address] [place] [id number] * ABORH (12/01/2024 9:22 AM EDT) ABORH Int B POS 12/01/2024 9:5 7 AM EDT [facility] Blood VENOUS BLOOD / Unknown Venipuncture / Unknown 12/01/2024 9:22 AM EDT 12/01/2024 9:26 AM EDT Sadi Haney MD BLOOD BANK ORDERABLES Fin al Result [facility] [address] [place] [address] * RED BLOOD CELLS REQUEST (11/23/2024 2:10 PM EDT) Product Code D2393P07 [facility] Unit Number [id number] [facility] BLOOD [facility] Crossmatch Interp Compatible [facility] Dispense Status TRANSFUSED [facility] BLOOD [facility] Blood Expiration Date [id number] [facility] ISBT 128 Type [address] [facility] Blood Unit Volume 300 ml [facility] BA CODING SYSTEM [id number] [facility] BLOOD [facility] Blood Type (Unit) B POS [facility] Blood 11/23/2024 2:10 PM EDT 11/23/2024 2:17 PM EDT Peace Rea APRN BLOOD PRODUCT ORDERS Nadiya l Result [facility] [address] [place] [address] * RED BLOOD CELLS REQUEST (11/23/2024 2:10 PM EDT) Product Code [id number] [facility] Unit Number [id number] [facility] Crossmatch Interp Compatible [facility] Dispense Status TRANSFUSED [facility]LOOD [facility] Blood Expiration Date [id number] [facility] ISBT 128 Type [address] [facility] Blood Unit Volume 300 ml [facility] BA CODING SYSTEM [id number] [facility] Blood Type (Unit) B POS [facility] Product Code [id number] [facility] Unit Number [id number] [facility] Crossmatch Interp Compatible [facility] Dispense Status TRANSFUSED [facility]LOOD [facility] Blood Expiration Date [facility] ISBT 128 Type [address] [facility] Blood Unit Volume 300 ml [facility] BA CODING SYSTEM [id number] [facility]OD [facility] Blood Type (Unit) B POS [facility] Blood 11/23/2024 2:10 PM EDT 11/23/2024 2:17 PM EDT us Sadi Haney MD BLOOD PRODUCT ORDERS Nadiya nichols Result [facility] [address] [place], [place] [id number] documented in this encounter Visit Diagnoses Diagnosis [...] PRN, Starting on Wed12/01/24 at 1851, Until 12/08/24 at 1550, Fever, Maximum adult dose of [...] phenoL (CHLORASEPTIC) 1.4 % oral spray 1 [place] 1 [place], Oral, EVERY 2 HOURS PRN, Starting on Wed12/04/24 at 2110, Until Wed12/08/24 at 1550, Sore Throat Given 12/04/2024 9:58 PM EDT 1 [place] Saccharomyces boulardii (FLORASTOR) capsule 250 mg 250 [...] Diaz LPN)[id number] (Patch Applied - Provider: Margie Daiz LPN) [id number] (Patch Removed - Provider: Margie [...] phenoL (CHLORASEPTIC) 1.4 % oral spray 1 [place](Linked [employer]) 1 [place], Oral, EVERY 2 HOURS PRN, Starting on [...] oral spray 1 SprayJump to med 1 [place], Oral, EVERY 2 HOURS PRN, Starting on [...] Date aspirin EC tablet 81 mg 2 12/07/2024 0709/2024 diatrizoate meglumine (HYPAQ UE) 30 % solution [...] phenoL (CHLORASEPTIC) 1.4 % oral spray 1 [place] 1 12/04/2024 diazePAM (VALIUM) tablet 5 mg [...] /mL (76 %) injection (LOW) 100 mL 12/02/2024 sodium chloride 0.9 % 1,000 mL [...] mg 12/01/2024 enoxaparin (LOVENOX) injection 40 mg 11/08 fentaNYL (SUBLIMAZE) injection 25 mcg 1 [...] Orde red Date NURSING COMMUNICATION 3 12/06/20242024 [facility] VTE PROPH NON-CANDIDATE 1 12/02/2024 PHARM [...] documented as of this encounter Care Teams Ironer Machine Relationship Specialty Start Date End Date Reyna Perez APRN [address] [place] [id number] PCP - General Nurse Practitioner 10/27/24 documented as of this encounter
--- OUTSIDE RECORDS SUMMARY | 2024-12-01 11:21 | XMS_ITS | Encounter Summary ---
Author Organization [place] [address] Care Team Providers Care Healthcare Administrative Assistant Name Role Phone Reyna Perez Jonathan ROMO Primary Care Provider [phone] Encounter Details Date Type Department Care Team (Late st Contact Info) Description 12/01/2024 11:21 AM EDT Anesthesia Event EDG PERIOP [facility] Dr. Malloy [place] [address] Tommy Romero DO [address] [place] [address] Kathy Dong APRN [address] [place] [address] Anesthesia Record Procedure Summary Procedure Name Responsible [...] of understanding from the receiving PACU/ICU steam conditioner filling 1648 An Stop Meds Name Total lidocaine [...] 12/01/24; 1552; 1; Midline, Inferior; Abdomen; 10 Tajik 12/01/24 1552 by Sonja Solis RN 12/08/24 [...] 1 Attempt 1 by: Travon Kerr Title: CHART PICKER * Jorge Alberto Hoang MD - 12/01/2024 [...] of the block is attached/scanned to the [employer] chart. documented in this encounter OR Notes [...] URI cough sputum Cardiovascular Comments: Patient follows [facility]-Dr Andrade -Last saw 09/2024-scanned in media 09/19/2024 Heart cath at [facility] scanned in media (+)Hypertension: well controlled Hyperlipidemia CAD/[place] (10/2024 CT noted Moderate coronary artery calcification.; [...] & Effient) (-) no recreational drug use MOLDER INFLATED BALL Additional Pre-evaluation comments CBC/BMP/T&S ordered 11/07/2024 CBC/CMP [...] 09/27/2024 (VIC x 1 to RCA) at [facility]. Pt was scheduled to have additional PCI to LAD and circ however pt wanted a second opinion for possible CABG surgery. He was seen by CTS (Dr. Kenny) on 10/10/2024 CTS planning CABG x 2 with QUINTIN clip--> currently on hold d/t urologic malignancy. Currently surgery is scheduled at [place]--discussed with Dr Bloom and surgery will need to be moved to [place] Will reach out to CTS and ensure patient is able to hold blood thinners for surgery Patient follows Dr Andrade in [facility]--will request records--recent heart cath and office note. However per patient and spouse planning on obtaining a new records management associate after CABG. In addition, PCP at [facility]-Dr Perez in [place]. Per patient he saw yesterday 11/23/2024. Will request office note and recent testing as well --- Today I emphasized the risk of ACS during surgery. We will do an shani alongside 5 lead EKG monitoring. Management will [...] URI cough sputum Cardiovascular Comments: Patient follows [facility]-Dr Andrade -Cesario saw 09/2024-scanned in media 09/19/2024 Heart cath at [facility] scanned in media (+)Hypertension: well controlled Hyperlipidemia CAD/[place] (10/2024 CT noted Moderate coronary artery calcification.; [...] & Effient) (-) no recreational drug use MOLDER INFLATED BALL Additional Pre-evaluation comments CBC/BMP/T&S ordered 11/07/2024 CBC/CMP [...] 09/27/2024 (VIC x 1 to RCA) at [facility]. Pt was scheduled to have additional PCI to LAD and circ however pt wanted a second opinion for possible CABG surgery. He was seen by CTS (Dr. Kenny) on 10/10/2024 CTS planning CABG x 2 with QUINTIN clip--> currently on hold d/t urologic malignancy. Currently surgery is scheduled at [place]--discussed with Dr Bloom and surgery will need to be moved to [place] Will reach out to CTS and ensure patient is able to hold blood thinners for surgery Patient follows Dr Andrade in [facility]--will request records--recent heart cath and office note. However per patient and spouse planning on obtaining a new records management associate after CABG. In addition, PCP at [facility]-Dr Perez in [place]. Per patient he saw yesterday 11/23/2024. Will request office note and recent testing as well PONV Risk Score: 2. Score of 2 is Moderate Risk for PONV, at least one antiemetic indicated for prophylaxis. Cardiology Clearance Requested Chart Reviewed and patient examined PAT SALES ENGINEER ENGINEERED PRODUCTS Notes Reason for visit: Cardiac: CAD [place], HTN and Coronary stents/PTCA CAD -enc smoking [...] Ureteral mass Effient & 81mg ASA PAT SALES ENGINEER ENGINEERED PRODUCTS Subjective: Patient here for preoperative management prior to Procedure(s): LEFT DAVINCI ROBOTIC NEPHROURETERECTOMY, CYSTOSCOPY, TRANSURETHRAL RESECTION OF THE BLADDER TUMOR . Patient needs evaluation due to increased risk for history of URETERAL MASS [place] CAD PCI HTN PAD CAROTID STENOSIS SMOKER. [...] 09/27/2024 (VIC x 1 to RCA) at [facility]. Pt was scheduled to have additional PCI to LAD and circ however pt wanted a second opinion for possible CABG surgery. He was seen by CTS (Dr. Kenny) on 10/10/2024 CTS planning CABG x 2 with QUINTIN clip--> currently on hold d/t urologic malignancy. Currently surgery is scheduled at [place]--discussed with Dr Bloom and surgery will need to be moved to [place] Will reach out to CTS and ensure patient is able to hold blood thinners for surgery Patient follows Dr Andrade in [facility]--will request records--recent heart cath and office note. However per patient and spouse planning on obtaining a new records management associate after CABG. In addition, PCP at [facility]-Dr Perez in [place]. Per patient he saw yesterday 11/23/2024. Will request office note and recent testing as well documented in this encounter Plan of Treatment Upcoming Encounters Date Type Department Care Team (Late st Contact Info) Description 12/21/2024 2:30 PM EDT Office Visit [facility] [address] [place] [address] Dorinda Rodriguez PA-C [address] [place] [address] 01/23/2025 9:00 AM EDT Office Visit [facility] [place] [address] [place] [address] [address] [place] [address] Logan Kenny MD [address] [place] [address] documented as of this encounter Procedures Procedure Name Priority Date/Time Associated Diagnosis Comments INTRAOP AIRWAY PLACEMENT Routine 12/01/2024 11:33 AM EDT ANE US GUIDANCE Routine 12/01/2024 10:32 AM EDT documented in this encounter Results * INTRAOP AIRWAY PLACEMENT (12/01/2024 11:33 AM EDT) Narrative [facility] - 12/01/2024 11:33 AM EDT Desiree [...] 1 Attempt 1 by: Travon Kerr Title: CHART PICKER us Jorge Alberto Hoang MD [place] ANESTHESIA Edited Resul t - Final [facility] [address] [place] [address] * ANE US GUIDANCE (12/01/2024 10:32 AM EDT) Narrative [facility] - 12/01/2024 10:32 AM EDT Jorge [...] Alberto Hoang MD ANESTHESIA ORDERABLES Final Result [facility] [address] [place], [place] [id number] documented in this encounter Visit Diagnoses Not [...] mL IVPB 1 g 1 g, Intravenous, COMBAT INFORMATION CENTER OFFICER TO O.R., 1 dose, On Wed12/01/24 at [...] mg documented in this encounter Care Teams Healthcare Administrative Assistant Relationship Specialty Start Date End Date Reyna Perez APRN [facility] [address] [place] [phone] PCP - General Nurse Practitioner 10/27/24 documented as of this encounter
[2024-12-11 15:39] LABS: Hematocrit 31.3 % (42.0-52.0); Hemoglobin 10.4 g/dL (14.1-18.0); Immature Granulocytes % 1.3 %; Mean Corpuscular HGB Conc 33.2 g/dL (31.8-35.4); Mean Corpuscular Hemoglobin 30.1 pg (27.0-31.2); Mean Corpuscular Volume 90.5 fl (80-94); Nucleated Red Blood Cells % 0 %; Platelet Count 431 K/mm3 (142-424); Red Blood Count 3.46 M/mm3 (4.60-6.20); Red Cell Distribution Width-SD 45.9 fL; White Blood Count 9.4 K/mm3 (4.8-10.8)
[2024-12-11 16:35] LABS: Alanine Aminotransferase 50 U/L (12-78); Albumin Level 4.1 g/dl (3.5-5.0); Albumin/Globulin Ratio 2.1 (1.1-1.8); Alkaline Phosphatase 108 U/L (38-126); Anion Gap 11.0 mEq/L (5-15); Aspartate Amino Transferase 32 U/L (17-59); Bilirubin,Total 1.6 mg/dl (0.2-1.3); Blood Urea Nitrogen 12 mg/dl (9-20); Calcium 9.6 mg/dl (8.4-10.2); Carbon Dioxide 24 mmol/L (22.0-30.0); Chloride 104 mmol/L (98-107); Creatinine,Serum 1.00 mg/dl (0.66-1.25); Estimated Glomerular Filt Rate 79 ml/min (>60); GFR (African American) 96 ML/MIN (>60); Globulin 2.0 g/dL (1.3-3.2); Glucose 136 mg/dl (74-100); Potassium 4.0 mmoL/L (3.5-5.1); Sodium 135 mmol/L (136-145); Total Protein,Serum 6.1 g/dl (6.3-8.2)
--- OUTSIDE RECORDS SUMMARY | 2024-12-13 07:58 | XMS_ITS | Clinical Summary ---
Author Organization [employer] [facility] Address [address] [place] [phone] Phone Care Team Providers Care Clinical Data Coordinator Name Role Phone Unavailable Unavailable Conditions or Problems No information available. Medications No information available. Medications Administered No information available. Allergies, Adverse Reactions, Alerts No information available. Results No information available. Plan of Care No information available. Procedures No information available. Vital Signs No information available. Immunizations No information available. Advance Directives No information available.
--- OUTSIDE RECORDS SUMMARY | 2024-12-13 07:58 | XMS_ITS | Encounter Summary ---
Author [place] [address] Care Team Providers Care Senior Operator Name Role Phone Reyna Perez DEMETRIUS Primary Care Provider [phone] Reason for Visit * Reason Onset Date Comments Schedule Appointment 12/08/2024 Encounter Details Date Type Department Care Team (Late st Contact Info) Description 12/08/2024 Telephone SEP Urology NPTFTT [address] [place] [address] Dorinda Rodriguez PA-C [address] [place] [address] Schedule Appointment Social History Tobacco Use Types Packs/Day Years Used Date Smoking Tobacco: Every Day Cigarettes 1 37.1 Started: 05/10/1989 Smokeless Tobacco: Never Alcohol Use Standard Drinks/Week Comments Not Currently 0 (1 standard drink = 0.6 oz pur e alcohol) [facility] Utilities Answer Date Recorded In the past 12 months has e electric, gas, oil, or water company threatened to shut off services in your home? No 12/04/2024 Overall Financial Resource Strain (CARDIA) Answe r Date Recorded How hard is it for you to pa y for the very basics like food, housing, medical care, and heating? Somewhat hard 12/04/2024 PHQ-2 Answer Date Recorded PHQ-2 Total Score 0 12/04/2024 [facility] [place] of Occupat ional Health - Occupational Stress [...] have money to get more. Never true [facility] IP Transportation Answer D ate Recorded In [...] encounter Miscellaneous Notes * Telephone Encounter - Minnie Moore - 12/08/2024 8:22 AM EDT Patient scheduled for post-op with PW on 12/21 at 2:30pm. Appt info will print on AVS at discharge, MCM sent * Telephone Encounter - Minnie Moore - 12/08/2024 8:22 AM EDT ----- Message from Peace Rea APRN sent at 12/08/2024 8:10 AM EDT ----- Needs apt with Valorie in 2 weeks thanks! documented in this encounter Plan of Treatment Upcoming Encounters Date Type Department Care Team (Late st Contact Info) Description 12/21/2024 2:30 PM EDT Office Visit [facility] Urology NPTFTT [address] [place] [address] Dorinda Rodriguez PA-C [address] [place] [address] 01/23/2025 9:00 AM EDT Office Visit [facility] Cardiac Surgeons [address] [place] [address] Logan Kenny MD [address] [place] [address] documented as of this encounter Visit Diagnoses Not on filedocumented in this encounter Additional Health Concerns Infection Onset Date Last Indicated Resolved Time C-diff 12/06/2024 12/06/2024 documented as of this encounter Care Teams Senior Operator Relationship Specialty Start Date End Date Reyna Perez APRN [address] [facility] [address] [place] [address] PCP - General Nurse Practitioner 10/27/24 documented as of this encounter
--- OUTSIDE RECORDS SUMMARY | 2024-12-13 07:59 | XMS_ITS | Encounter Summary ---
Author Organization [place] [address] Care Team Providers Care Child Development Specialist Name Role Phone Reyna Perez DEMETRIUS Primary Care Provider [phone] Reason for Visit * Reason Onset Date Comments Schedule Appointment 12/04/2024 Encounter Details Date Type Department Care Team (Late st Contact Info) Description 12/04/2024 Telephone SEP Urology [place] [address] [place] [address] Sadi Haney MD [address] [facility] [address] [place], [place] [id number] Schedule Appointment Social History Tobacco Use Types Packs/Day Years Used Date Smoking Tobacco: Every Day Cigarettes 1 37.1 Started: 05/10/1989 Smokeless Tobacco: Never Alcohol Use Standard Drinks/Week Comments Not Currently 0 (1 standard drink = 0.6 oz pur e alcohol) [facility] Utilities Answer Date Recorded In the past 12 months has [employer], gas, oil, or water [employer] threatened to shut off services in your home? No 12/04/2024 Overall Financial Resource Strain (CARDIA) Answe r Date Recorded How hard is it for you to pa y for the very basics like food, housing, medical care, and heating? Somewhat hard 12/04/2024 PHQ-2 Answer Date Recorded PHQ-2 Total Score 0 12/04/2024 [facility] [place] of Occupat ional Health - Occupational Stress [...] have money to get more. Never true [facility] IP Transportation Answer D ate Recorded [...] as of this encounter Functional Status * Question Answer Date of Assessment Author [...] 12:[address] lorelei Roberto RN documented as of this encounter Miscellaneous Notes * Telephone Encounter - La Parrish MA - 12/04/2024 8:57 AM EDT Pt is still admitted in hospital. states he about to have has 2nd transfusion. Not sure on discharge per . * Telephone Encounter - La Parrish MA - 12/04/2024 8:33 AM EDT ----- Message from Peace Rea APRN sent at 12/01/2024 9:17 PM EDT ----- Needs [place] apt with JOSSIE in 1 week documented in this encounter Plan of Treatment Upcoming Encounters Date Type Department Care Team (Late st Contact Info) Description 12/21/2024 2:30 PM EDT Office Visit [facility] Urology NPTFTT [address] [place] [address] Dorinda Rodriguez PA-C [address] [place] [address] 01/23/2025 9:00 AM EDT Office Visit [facility] Cardiac Surgeons [address] [place] [address] Logan Kenny MD [address] [place] [phone] documented as of this encounter Visit Diagnoses Not on filedocumented in this encounter Additional Health Concerns Infection Onset Date Last Indicated Resolved Time R/O C-Diff 12/06/2024 12/06/2024 12/06/2024 1:17 PM EDT C-diff 12/06/2024 12/06/2024 documented as of this encounter Care Teams Child Development Specialist Relationship Specialty Start Date End Date Reyna Perez APRN 1210 [facility] [address] [place] [address] PCP - General Nurse Practitioner 10/27/24 documented as of this encounter
--- OUTSIDE RECORDS SUMMARY | 2024-12-13 07:59 | XMS_ITS | Encounter Summary ---
Author Organization [facility] [place] [address] Care Team Providers Care Operations Support Manager Name Role Phone Reyna Perez APRN Primary Care Provider [phone] Encounter Details Date Type Department Care Team (Latest Contact Info) Description 12/01/2024 Travel Social History Tobacco Use Types Packs/Day [...] 8:11 PM EDT Viri Segura RN * [place] Suicide Severity Rating Scale (Q shift for [...] EDT Office Visit [facility] Urology NPTFTT [address] [place] [address] Dorinda Rodriguez, PA-C [address] [place], [place] [phone] 01/23/2025 9:00 AM EDT Office Visit [facility] Cardiac Surgeons [address] [place] [address] Logan Kenny MD [address] [place] [phone] documented as of this encounter Visit Diagnoses Not on filedocumented in this encounter Care Teams Operations Support Manager Relationship Specialty Start Date End Date Reyna Perez APRN 1210 [facility] [address] [place] [address] PCP - General Nurse Practitioner 10/27/24 documented as of this encounter
--- OUTSIDE RECORDS SUMMARY | 2024-12-13 08:00 | XMS_ITS | Encounter Summary ---
Author Organization [place] [address] Care Team Providers Care Multifocal Button Generator Name Role Phone Reyna Perez DEMETRIUS Primary Care Provider [phone] Encounter Details Date Type Department Care Team (Late st Contact Info) Description 10/12/2024 Results Follow-Up [facility] Cardiac Surgeons [place] [address] [facility] [address] [place] [address] CHEST WO CONTRAST Social History Tobacco Use Types Packs/Day Years Used Date Smoking Tobacco: Never Assessed [facility] Utilities Answer Date Recorded In the past 12 months has th [employer] electric, gas, oil, or water company threatened to shut off services in your home? No 12/04/2024 Overall Financial Resource Strain (CARDIA) Answe r Date Recorded How hard is it for you to pa y for the very basics like food, housing, medical care, and heating? Somewhat hard 12/04/2024 PHQ-2 Answer Date Recorded PHQ-2 Total Score 0 12/04/2024 [facility] [place] of Occupat ional Health - Occupational Stress [...] have money to get more. Never true [facility] IP Transportation Answer D ate Recorded In the past 12 months, has l ack of reliable transportation kept you from medical appointments, meetings, work or from getting things needed for daily living? No 12/04/2024 Sex and Gender Information Value Date Recorded [...] Assessment Author 0 12/01/2024 8:00 PM EDT Bj Segura i, RN * Question Answer Date of Assessment [...] or hopeless 0 12/04/2024 12:32 PM EDT aCilin Roberto RN PHQ-2 Total Score 0 12/04/2024 [...] 8:11 PM EDT Viri Segura RN * [place] Suicide Severity Rating Scale (Q shift for [...] EDT Office Visit [facility] Urology NPTFTT [address] [place] [address] Dorinda Rodriguez PAWinifredC [address] [place] [address] 01/23/2025 9:00 AM EDT Office Visit [facility] Cardiac Surgeons [address] [place] [address] Logan Kenny MD [address] [place] [address] documented as of this encounter Visit Diagnoses Not on filedocumented in this encounter Additional Health Concerns Infection Onset Date Last Indicated Resolved Time R/O C-Diff 12/06/2024 12/06/2024 12/06/2024 1:17 PM EDT C-diff 12/06/2024 12/06/2024 documented as of this encounter Care Teams Multifocal Button Generator Relationship Specialty Start Date End Date Reyna Perez APRN [address] [facility] [address] [place] [address] PCP - General Nurse Practitioner 10/27/24 documented as of this encounter
--- OUTSIDE RECORDS SUMMARY | 2024-12-13 08:00 | XMS_ITS | Encounter Summary ---
Author Organization [place] [address] Care Team Providers Care Research Kennel Supervisor Name Role Phone Reyna Perez APRN Primary Care Provider [phone] Encounter Details Date Type Department Care Team (Late Contact Info) Description 10/19/2024 Results Follow-Up [facility] Cardiac Surgeons [address] [place] [address] ABDOMEN [...] Encounters Date Type Department Care Team (Late Contact Info) Description 12/21/2024 2:30 PM EDT Office Visit [facility] Urology NPTFTT [address] [place] [address] Dorinda Rodriguez PA-C [address] [place] [address] 01/23/2025 9:00 AM EDT Office Visit [facility] Cardiac Surgeons [address] [place] [address] Logan Kenny MD [address] [place] [address] [place] [address] documented as of this encounter Visit Diagnoses Not on filedocumented in this encounter Additional Health Concerns Infection Onset Date Last Indicated Resolved Time R/O C-Diff 12/06/2024 12/06/2024 12/06/2024 1:17 PM EDT C-diff 12/06/2024 12/06/2024 documented as of this encounter Care Teams Research Kennel Supervisor Relationship Specialty Start Date End Date Reyna Perez APRN 1210 [facility] [address] [place] [address] PCP - General Nurse Practitioner 10/27/24 documented as of this encounter
--- OUTSIDE RECORDS SUMMARY | 2024-12-13 08:00 | XMS_ITS | Encounter Summary ---
Author Organization [facility] [place] [address] Care Team Providers Care Derrick Barge Operator Name Role Phone Reyna Perez DEMETRIUS Primary Care Provider [phone] Encounter Details Date Type Department Care Team [...] 3:23 AM EDT Tommy Lugo RN * [place] Suicide Severity Rating Scale (Q shift for [...] EDT Office Visit [facility] Urology NPTFTT [address] [place] [address] Dorinda Rodriguez PA-C [address] [place] [address] 01/23/2025 9:00 AM EDT Office Visit [facility] Cardiac Surgeons [address] [place] [address] Logan Kenny MD [address] [place] [address] documented as of this encounter Visit Diagnoses Not on filedocumented in this encounter Care Teams Derrick Barge Operator Relationship Specialty Start Date End Date Reyna Perez APRN 1210 [facility] [address] [place] [address] PCP - General Nurse Practitioner 10/27/24 documented as of this encounter
--- OUTSIDE RECORDS SUMMARY | 2024-12-13 08:00 | XMS_ITS | Encounter Summary ---
Author Organization [place] [address] Care Team Providers Care Compliance Assistant Name Role Phone Unavailable Primary Care Provider Unavailabl e Reason for Referral * Consultation (Emergency) - Authorization Not Needed Specialty Diagnoses / Procedures Referred By Juan R t Referred To Contact Urology Diagnoses Abnormal CT scan Procedures CA OFFICE/OUTPATIENT NEW MODERATE MDM 45 MINUTES Christian Nicholas MD [address] [place] [address] Phone: tel: fax: [facility] Urology [address] [address] Phone: tel: fax: Referral ID Status Reason Start Date Expiration Date Visits Requested Visits Authorized [id number] Authorization Not Needed 10/19/2024 10/19/2025 99 99 Encounter Details Date Type Department Care Team (Late st Contact Info) Description 10/19/2024 Orders Only [facility] Cardiac Surgeons [address] [place] [address] Christian Nicholas MD [address] [place] [address] scan (Primary Dx) Social [...] EDT Office Visit [facility] Urology NPTFTT [address] [place] [address] Dorinda Rodriguez, PARandolph [address] [place] [address] 01/23/2025 9:00 AM EDT Office Visit [facility] Cardiac Surgeons [address] [place] [address] Logan Kenny MD [address] [place] [address] Scheduled Referrals Name Type Priority Associated Diagnoses Orde r Schedule AMB REFERRAL TO UROLOGY Outpatient Referral STAT Abnormal CT scan Ordered: 10/19/2024 documented as of this encounter Visit Diagnoses Diagnosis Abnormal CT scan- Primary Other nonspecific (abnormal) findings on radiological and other examinations of body structure documented in this encounter
--- OUTSIDE RECORDS SUMMARY | 2024-12-13 08:00 | XMS_ITS | Encounter Summary ---
Author Organization [facility] [place] [address] Care Team Providers Care Pipeline Executive Name Role Phone Reyna Perez APRN Primary Care Provider [phone] Encounter Details Date Type Department Care Team (Latest Contact Info) Description 11/23/2024 Travel Social History Tobacco Use Types Packs/Day [...] EDT Office Visit [facility] Urology NPTFTT [address] [place] [address] Dorinda Rodriguez, PAWinifredC [address] [place] [address] 01/23/2025 9:00 AM EDT Office Visit [facility] Cardiac Surgeons [address] [place] [address] Logan Kenny MD [address] [place] [address] [address] documented as of this encounter Visit Diagnoses Not on filedocumented in this encounter Care Teams Pipeline Executive Relationship Specialty Start Date End Date Reyna Perez APRN [address] [place] [address] [address] [place] [address] PCP - General Nurse Practitioner 10/27/24 documented as of this encounter
--- OUTSIDE RECORDS SUMMARY | 2024-12-13 08:00 | XMS_ITS | Encounter Summary ---
Author Organization [place] [address] Care Team Providers Care Clinical Professor Name Role Phone Reyna Perez DEMETRIUS Primary Care Provider [phone] Reason for Visit * Reason Onset Date Comments Medication Refill 10/27/2024 Encounter Details Date Type Department Care Team (Late st Contact Info) Description 10/27/2024 Nurse Triage [facility] Nurse Now [address] [place] [address] Kristine Ventura, RN Social History [...] EDT Pt notified script was sent to [facility] * Telephone Encounter - Kristine Ventura RN - 10/27/2024 5:51 PM EDT Nurse Triage Call -Chief Complaint: biopsy on kidney today. was told that he would have pain medicine sent to pharmacy today. not sent to pharmacy pharmacy closes at 6pm. pain already 12/17 [facility] open [facility] 8pm [phone] [facility]. -Reported by: Spouse/Significant Other -Vitals: No vitals obtained on this call -Disposition per protocol: call PCP when office is open -Follow up/Concerns: message sent to forestry conservation worker provider I'll send in oxy asked provider [...] EDT Office Visit [facility] Urology NPTFTT [address] [place] [address] Dorinda Rodriguez PA-C [address] [place] [address] 01/23/2025 9:00 AM EDT Office Visit [facility] Cardiac Surgeons [address] [place] [address] Logan Kenny MD [address] [place] [address] [phone] documented as of this encounter Visit Diagnoses Not on filedocumented in this encounter Care Teams Clinical Professor Relationship Specialty Start Date End Date Reyna Perez APRN 1210 [facility] [address] [place] [address] PCP - General Nurse Practitioner 10/27/24 documented as of this encounter
--- OUTSIDE RECORDS SUMMARY | 2024-12-13 08:00 | XMS_ITS | Encounter Summary ---
Author Organization [place] [address] Care Team Providers Care Vocational Training Teacher Name Role Phone ChrisReyna Jonathan ROMO Primary Care Provider [phone] Reason for Visit * Reason Onset Date Comments Hematuria 11/02/2024 Encounter Details Date Type Department Care Team (Late st Contact Info) Description 11/02/2024 Telephone SEP Nurse Now [facility] [place] [address] Cheyanne Rain RN Hematuria Social [...] EDT Office Visit [facility] Urology NPTFTT [address] [place] [address] Dorinda Rodriguez PA-C [address] [place], [place] [address] 01/23/2025 9:00 AM EDT Office Visit [facility] Cardiac Surgeons [address] [place] [address] Logan Kenny MD [address] [place] [address] documented as of this encounter Visit Diagnoses Not on filedocumented in this encounter Care Teams Vocational Training Teacher Relationship Specialty Start Date End Date Reyna Perez APRN 1210 [facility] [address] [place] [address] PCP - General Nurse Practitioner 10/27/24 documented as of this encounter
--- OUTSIDE RECORDS SUMMARY | 2024-12-13 08:00 | XMS_ITS | Encounter Summary ---
Author Organization [place] [address] Care Team Providers Care Bin Tripper Operator Name Role Phone Reyna Perez DEMETRIUS Primary Care Provider [phone] Reason for Visit * Reason Onset Date Comments Results 11/01/2024 Encounter Details Date Type Department Care Team (Late st Contact Info) Description 11/01/2024 Telephone SEP Nurse Now [facility] [place] [address] Fito Weeks RN Results Social [...] it results. * Telephone Encounter - Fito Weeks, RN - 11/01/2024 2:02 PM EDT Pt's [...] EDT Office Visit [facility] Urology NPTFTT [address] [place] [address] Dorinda Rodriguez PA-C [address] [place] [address] 01/23/2025 9:00 AM EDT Office Visit [facility] Cardiac Surgeons [address] [place] [address] Logan Kenny MD [address] [place] [phone] documented as of this encounter Visit Diagnoses Not on filedocumented in this encounter Care Teams Bin Tripper Operator Relationship Specialty Start Date End Date Reyna Perez APRN 1210 [facility] [address] [place] [address] PCP - General Nurse Practitioner 10/27/24 documented as of this encounter
--- OUTSIDE RECORDS SUMMARY | 2024-12-13 08:00 | XMS_ITS | Encounter Summary ---
Author Organization [place] [address] Care Team Providers Care Evaporator Operator Name Role Phone Reyna Perez APRN Primary Care Provider Reason for Visit * Reason Comments Medication Refill Encounter Details Date Type Department Care Team (Late Contact Info) Description 10/19/2024 Refill SEP Infectious Disease [facility]G 20 [facility] [address] [place] [address] Janet Perez, DEMETRIUS [address] [place] [phone] Medication Refill Social History Tobacco Use Types [...] EDT Office Visit [facility] Urology NPTFTT [address] [place] [address] Dorinda Rodriguez PA-C [address] [place] [address] 01/23/2025 9:00 AM EDT Office Visit [facility] Cardiac Surgeons [place] [address] [facility] [address] [place] [address] Logan Kenny MD [address] [facility] [address] documented as of this encounter Visit Diagnoses Not on filedocumented in this encounter Care Teams Evaporator Operator Relationship Specialty Start Date End Date Reyna Perez APRN 1210 [facility] [address] [place] [address] PCP - General Nurse Practitioner 10/27/24 documented as of this encounter
--- OUTSIDE RECORDS SUMMARY | 2024-12-13 08:00 | XMS_ITS | Encounter Summary ---
Author Organization [place] [address] Care Team Providers Care Paper Sheeter Name Role Phone Reyna Perez DEMETRIUS Primary Care Provider [phone] Reason for Visit * Reason Onset Date Comments Results 12/11/2024 Encounter Details Date Type Department Care Team (Late st Contact Info) Description 12/11/2024 Results Follow-Up [facility] Urology [place] [address] [place] [address] Sadi Haney MD 7[address] [facility] [address] [place] [address] PATHOLOGY TISSUE REQUEST Social History Tobacco Use Types Packs/Day Years Used Date Smoking Tobacco: Every Day Cigarettes 1 37.1 Started: 05/10/1989 Smokeless Tobacco: Never Alcohol Use Standard Drinks/Week Comments Not Currently 0 (1 standard drink = 0.6 oz pur e alcohol) [facility] Utilities Answer Date Recorded In the past 12 months has [employer], gas, oil, or water [employer] threatened to shut off services in your home? No 12/04/2024 Overall Financial Resource Strain (CARDIA) Answe r Date Recorded How hard is it for you to pa y for the very basics like food, housing, medical care, and heating? Somewhat hard 12/04/2024 PHQ-2 Answer Date Recorded PHQ-2 Total Score 0 12/04/2024 [facility] [place] of Occupat ional Health - Occupational Stress [...] money to get more. 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 - Resection margins negative for carcinoma - Kidney and bladder cuff with chronic inflammation, negative for carcinoma. - Adrenal gland negative for carcinoma. - See synoptic report for details. Surveillance with cysto q 3 mo x 2 ys, q 6 mo for 2 yrs and then q yr; CTU q 6 mo for 5 yrs and then annually - with DR CHANDLER documented in this encounter Plan of Treatment Upcoming Encounters Date Type Department Care Team (Late st Contact Info) Description 12/21/2024 2:30 PM EDT Office Visit [facility] NPTFTT [address] [place] [address] Dorinda Rodriguez, PA-C [address] [place] [address] 01/23/2025 9:00 AM EDT Office Visit [facility] Cardiac Surgeons [address] [place] [address] Logan Kenny MD [address] [place] [address] documented as of this encounter Visit Diagnoses Not on filedocumented in this encounter Additional Health Concerns Infection Onset Date Last Indicated Resolved Time C-diff 12/06/2024 12/06/2024 documented as of this encounter Care Teams Paper Sheeter Relationship Specialty Start Date End Date Reyna Perez APRN 1210 [facility] [address] [place] [address] PCP - General Nurse Practitioner 10/27/24 documented as of this encounter
--- OUTSIDE RECORDS SUMMARY | 2024-12-13 08:00 | XMS_ITS | Encounter Summary ---
Author [place] [address] Care Team Providers Care Lead Solutions Architect Name Role Phone Reyna Perez DEMETRIUS Primary Care Provider [phone] Reason for Visit * Reason Onset Date Comments Surgery Scheduling 11/07/2024 Encounter Details Date Type Department Care Team (Late st Contact Info) Description 11/07/2024 Telephone SEP Nurse Now [facility] [place] [address] Cheyanne Rain RN Surgery Scheduling [...] 11/07/2024 3:23 AM EDTommy Lawton RN * Stacy Suicide Severity Rating Scale (Q shift for [...] Miscellaneous Notes * Telephone Encounter - Cheyanne Rain, RN - 11/07/2024 12:12 PM EDT Pt [...] EDT Office Visit [facility] Urology NPTFTT [address] [place] [address] Dorinda Rodriguez, PA-C [address] [place] [address] 01/23/2025 9:00 AM EDT Office Visit [facility] Cardiac Surgeons [address] [place] [address] Logan Kenny MD [address] [place] [address] [id number] documented as of this encounter Visit Diagnoses Not on filedocumented in this encounter Care Teams Lead Solutions Architect Relationship Specialty Start Date End Date Reyna Perez APRN 1210 [facility] [address] [place] [address] PCP - General Nurse Practitioner 10/27/24 documented as of this encounter
--- OUTSIDE RECORDS SUMMARY | 2024-12-13 08:00 | XMS_ITS | Encounter Summary ---
Author Organization [place] [address] Care Team Providers Care Associate Program Manager Name Role Phone Reyna Perez DEMETRIUS Primary Care Provider [phone] Reason for Visit * Reason Onset Date Comments Post-op Call 10/28/2024 Encounter Details Date Type Department Care Team (Late st Contact Info) Description 10/28/2024 Nurse Triage [facility] Nurse Now [address] [place] [address] Tamar Alan, LAY Social History [...] RN - 10/28/2024 10:05 AM EDT Per shoe salesperson, hold blood thinner until Wednesday and call [...] PCP now -Follow up/Concerns: message sent to shoe salesperson provider Reason for Disposition [1] Caller has URGENT question AND [2] triager unable to answer question Protocols used: Post-Op Symptoms and Ijyehvupn-H-HA documented in this encounter Plan of Treatment Upcoming Encounters Date Type Department Care Team (Late st Contact Info) Description 12/21/2024 2:30 PM EDT Office Visit [facility] Urology NPTFTT [address] [place] [address] Dorinda Rodriguez PA-C [address] [place] [address] 01/23/2025 9:00 AM EDT Office Visit [facility] Cardiac Surgeons [address] [place] [address] Logan Kenny MD [address] [place] [address] documented as of this encounter Visit Diagnoses Not on filedocumented in this encounter Care Teams Associate Program Manager Relationship Specialty Start Date End Date Reyna Perez APRN 1210 [facility] [address] [place] [address] PCP - General Nurse Practitioner 10/27/24 documented as of this encounter
--- OUTSIDE RECORDS SUMMARY | 2024-12-13 08:00 | XMS_ITS | Encounter Summary ---
Author Organization [place] [address] Care Team Providers Care Ecotherapist Name Role Phone Reyna Perez DEMETRIUS Primary Care Provider [phone] Reason for Visit * Reason Onset Date Comments Respiratory Distress 11/07/2024 Encounter Details Date Type Department Care Team (Late st Contact Info) Description 11/07/2024 Nurse Triage [facility] Nurse Now [address] [place] [address] Renetta Jolly RN Social History [...] Jolly RN - 11/07/2024 2:[address] [facility] Nurse Triage -Chief Complaint: Difficulty breathing . shortness of breath w/ exertion is baseline . this episode has been going on a few hours . still urinating blood from bx . takes asa . on abx due to possible UTI -Reported by: Spouse -Vitals: 97%, 127/77, 74 - no fever -Disposition per protocol: ED -Follow up/Concerns: Care advice provided. SC to Bench Examiner: AMEENA Black Per Bench Examiner: Thumbs up Patient advised: Yes Reason for Disposition Major surgery in the past month Protocols used: Breathing Yauubnohtg-K-VF documented in this encounter Plan of Treatment Upcoming Encounters Date Type Department Care Team (Late st Contact Info) Description 12/21/2024 2:30 PM EDT Office Visit [facility] Urology NPTFTT [address] [place] [address] Dorinda Rodriguez PAWinifredC [address] [place] [address] 01/23/2025 9:00 AM EDT Office Visit [facility] Cardiac Surgeons [address] [place] [address] Logan Kenny MD [address] [place] [address] documented as of this encounter Visit Diagnoses Not on filedocumented in this encounter Care Teams Ecotherapist Relationship Specialty Start Date End Date Reyna Perez APRN 1210 [facility] [address] [place] [address] PCP - General Nurse Practitioner 10/27/24 documented as of this encounter
--- OUTSIDE RECORDS SUMMARY | 2024-12-13 08:00 | XMS_ITS | Encounter Summary ---
Author Organization [place] [address] Care Team Providers Care Speed Belt Sander Name Role Phone Reyna Perez JACK MACHINE OPERATOR Primary Care Provider [phone] Reason for Visit * Reason Onset Date Comments Dizziness 10/31/2024 Encounter Details Date Type Department Care Team (Late st Contact Info) Description 10/31/2024 Telephone [facility] Cardiac Surgeons [address] [place] [address] Deb Woodall APRN [address] [place] [address] Dizziness Social History Tobacco Use [...] EDT Office Visit [facility] Urology NPTFTT [address] [place] [address] Dorinda Rodriguez PA-C [address] [place] [address] 01/23/2025 9:00 AM EDT Office Visit [facility] Cardiac Surgeons [address] [place] [address] Logan Kenny MD [address] [place] [address] [phone] documented as of this encounter Visit Diagnoses Diagnosis ASHD (arteriosclerotic heart disease)- Primary Coronary atherosclerosis of unspecified type of vessel, mary's igloo or graft documented in this encounter Care Teams Speed Belt Sander Relationship Specialty Start Date End Date Reyna Perez APRN 1210 [facility] [address] [place] [address] PCP - General Nurse Practitioner 10/27/24 documented as of this encounter
--- OUTSIDE RECORDS SUMMARY | 2024-12-13 08:00 | XMS_ITS | Encounter Summary ---
Author Organization [place] [address] Care Team Providers Care Rn House Supervisor Name Role Phone Reyna Perez DEMETRIUS Primary Care Provider [phone] Reason for Referral * (Routine) - Pending Review Specialty Diagnoses / Procedures Referred By Juan R acosta Referred To Contact Diagnoses Ureteral mass Procedures AMB URO SURGERY COMM ORDER Patricia Ellison MD [address] [place] [address] Phone: tel: fax: Referral ID Status Reason Start Date Expiration Date V isits Requested Visits Authorized [id number] Pending Review 11/05/2024 11/05/2025 1 1 Reason for Visit * Reason Onset Date Comments Information Only 11/05/2024 Encounter Details Date Type Department Care Team (Late st Contact Info) Description 11/05/2024 Results Follow-Up SE[facility] Urology NPTFTT [address] [place] [address] Patricia Ellison MD [address] [place] [address] NON-BUTTON PUNCHER CYTOLOGY REQUEST, PATHOLOGY TISSUE REQUEST Social History [...] hours for 10 days. 20 Tablet 11/05/2024 11/21/2024 documented in this encounter Miscellaneous Notes * [...] EDT Office Visit [facility] Urology NPTFTT [address] [place] [address] Dorinda Rodriguez PA-C [address] [place] [address] 01/23/2025 9:00 AM EDT Office Visit [facility] Cardiac Surgeons [address] [place] [address] Logan Kenny MD [address] [place] [address] Scheduled Orders Name Type Priority Associated Diagnoses Orde r Schedule SURGICAL/PROCEDURE CASE REQUEST Procedures Routine Ureteral mass Ordered: 11/06/2024 documented as of this encounter Visit Diagnoses Diagnosis Ureteral mass- Primary Unspecified disorder of kidney and ureter documented in this encounter Orders Nursing Count Last Ordered Date First Orde red Date AMB URO SURGERY COMM ORDER 1 11/05/2024 documented in this encounter Care Teams Rn House Supervisor Relationship Specialty Start Date End Date Reyna Perez APRN 1210 [facility] [address] [place] [address] PCP - General Nurse Practitioner 10/27/24 documented as of this encounter
--- OUTSIDE RECORDS SUMMARY | 2024-12-13 08:00 | XMS_ITS | Encounter Summary ---
Author Organization [place] [address] Care Team Providers Care Embedded Firmware Engineer Name Role Phone Reyna Perez DEMETRIUS Primary Care Provider [phone] Reason for Visit * Reason Onset Date Comments Medication Question 12/10/2024 Encounter Details Date Type Department Care Team (Late st Contact Info) Description 12/10/2024 Nurse Triage SEP Nurse Now [address] [place] [address] Kiesha Gomez, LAY Social History Tobacco Use Types Packs/Day Years Used Date Smoking Tobacco: Every Day Cigarettes 1 37.1 Started: 05/10/1989 Smokeless Tobacco: Never Alcohol Use Standard Drinks/Week Comments Not Currently 0 (1 standard drink = 0.6 oz pur e alcohol) [facility] Utilities Answer Date Recorded In the past 12 months has th e electric, gas, oil, or water company threatened to shut off services in your home? No 12/04/2024 Overall Financial Resource Strain (CARDIA) Answe r Date Recorded How hard is it for you to pa y for the very basics like food, housing, medical care, and heating? Somewhat hard 12/04/2024 PHQ-2 Answer Date Recorded PHQ-2 Total Score 0 12/04/2024 [facility] [place] of Occupat ional Health - Occupational Stress [...] have money to get more. Never true [facility] IP Transportation Answer D ate Recorded [...] encounter Miscellaneous Notes * Telephone Encounter - Kiesha Gomez RN - 12/10/2024 3:11 PM EDT Nurse Triage Call -Chief Complaint: kidney surgery on Wednesday. Sent home on metoprolol- discharge paperwork states to start losartan but computer lab assistant verbally said to hold it for now. BP 149/89, P 94- patient took metoprolol this morning and BP is not improving. would like to know if patient should start losartan -Reported by: Spouse/Significant Other -Disposition per protocol: call md now -[facility] Purdy ok to restart medication per dr purdy called spouse back to notify Reason for Disposition [1] Caller has URGENT medicine question about med that PCP or specialist prescribed AND [2] triagerunable to answer question Protocols used: Medication Question Call-A- documented in this encounter Plan of Treatment Upcoming Encounters Date Type Department Care Team (Late st Contact Info) Description 12/21/2024 2:30 PM EDT Office Visit [facility] Urology NPTFTT [address] [place] [address] Dorinda Rodriguez, PA-C [address] [place] [address] 01/23/2025 9:00 AM EDT Office Visit [facility] Cardiac Surgeons [address] [place] [address] Logan Kenny MD [address] [place] [address] documented as of this encounter Visit Diagnoses Not on filedocumented in this encounter Additional Health Concerns Infection Onset Date Last Indicated Resolved Time C-diff 12/06/2024 12/06/2024 documented as of this encounter Care Teams Embedded Firmware Engineer Relationship Specialty Start Date End Date Reyna Perez APRN 1210 [facility] [address] [place] [address] PCP - General Nurse Practitioner 10/27/24 documented as of this encounter
--- OUTSIDE RECORDS SUMMARY | 2024-12-13 08:00 | XMS_ITS | Encounter Summary ---
Author Organization [place] [address] Care Team Providers Care Water Use Inspector Name Role Phone Unavailable Primary Care Provider Unavailabl e Reason for Visit * Reason Onset Date Comments Medication Management 10/23/2024 Encounter Details Date Type Department Care Team (Late st Contact Info) Description 10/23/2024 Telephone SEP Nurse Now [address] [place] [address] Fito Weeks, material handler Management Social History Tobacco Use Types Packs/Day [...] EDT Office Visit [facility] Urology NPTFTT [address] [place] [address] Dorinda Rodriguez PA-C [address] [place] [address] 01/23/2025 9:00 AM EDT Office Visit [facility] Cardiac Surgeons [address] [place] [address] Logan Kenny MD [address] [place] [address] documented as of this encounter Visit Diagnoses Not on filedocumented in this encounter
--- OUTSIDE RECORDS SUMMARY | 2024-12-13 08:00 | XMS_ITS | Encounter Summary ---
Author Organization [place] [address] Care Team Providers Care Reading Aide Name Role Phone Reyna Perez DEMETRIUS Primary Care Provider [phone] Reason for Visit * Reason Onset Date Comments Medication Management 12/09/2024 Encounter Details Date Type Department Care Team (Late st Contact Info) Description 12/09/2024 Nurse Triage SEP Nurse Now [address] [place] [address] Clara Gutierrez RN Social History Tobacco Use Types Packs/Day Years Used Date Smoking Tobacco: Every Day Cigarettes 1 37.1 Started: 05/10/1989 Smokeless Tobacco: Never Alcohol Use Standard Drinks/Week Comments Not Currently 0 (1 standard drink = 0.6 oz pur e alcohol) [facility] Utilities Answer Date Recorded In the past [...] Date Recorded PHQ-2 Total Score 0 12/04/2024 [facility] [place] of Occupat ional Health - Occupational Stress [...] have money to get more. Never true [facility] IP Transportation Answer D ate Recorded [...] encounter Miscellaneous Notes * Telephone Encounter - Clara Gutierrez RN - 12/09/2024 5:53 AM EDT Nurse Triage Call -Chief Complaint: Spouse calling with questions regarding if ok for pt to take a previous prescription of zofran with new medications that were ordered at discharge yesterday. Recommended spouse speak to pharmacist regarding compatibility. -Reported by: Spouse/Significant Other -Vitals: No vitals obtained on this call -Disposition per protocol: call pharmacist within 24 hours -Follow up/Concerns: none Reason for Disposition [1] Caller has medicine question about med NOT prescribed by PCP AND [2] triager unable to answer question (e.g., compatibility with other med, storage) Protocols used: Medication Question Call-A- documented in this encounter Plan of Treatment Upcoming Encounters Date Type Department Care Team (Late st Contact Info) Description 12/21/2024 2:30 PM EDT Office Visit [facility] Urology NPTFTT [address] [place] [address] Dorinda Rodriguez, PAWinifredC [address] [place] [address] 01/23/2025 9:00 AM EDT Office Visit [facility] Cardiac Surgeons [address] [place] [address] Logan Kenny MD [address] [place] [address] [place] [address] documented as of this encounter Visit Diagnoses Not on filedocumented in this encounter Additional Health Concerns Infection Onset Date Last Indicated Resolved Time C-diff 12/06/2024 12/06/2024 documented as of this encounter Care Teams Reading Aide Relationship Specialty Start Date End Date Reyna Perez APRN [facility] [address] [place] [address] PCP - General Nurse Practitioner 10/27/24 documented as of this encounter
--- OUTSIDE RECORDS SUMMARY | 2024-12-13 08:00 | XMS_ITS | Encounter Summary ---
Author Organization [place] [address] Care Team Providers Care Passenger Service Supervisor Name Role Phone Unavailable Primary Care Provider Unavailabl e Reason for Visit * Reason Onset Date Comments Follow-up 10/20/2024 Encounter Details Date Type Department Care Team (Late st Contact Info) Description 10/20/2024 Telephone [facility] Cardiac Surgeons [place] [address] [place] [address] [address] [place] [address] Logan Kenny MD [address] [place] [address] Follow-up Social History Tobacco Use Types [...] EDT Office Visit [facility] Urology NPTFTT [address] [place] [address] Dorinda Rodriguez PA-C [address] [place] [address] 01/23/2025 9:00 AM EDT Office Visit [facility] Cardiac Surgeons [address] [place] [address] Logan Kenny MD [address] [place] [address] documented as of this encounter Visit Diagnoses Not on filedocumented in this encounter
--- OUTSIDE RECORDS SUMMARY | 2024-12-13 08:00 | XMS_ITS | Encounter Summary ---
Author Organization [place] [address] Care Team Providers Care Air Turning Machine Feeder Name Role Phone Reyna Perez DEMETRIUS Primary Care Provider [phone] Reason for Visit * Reason Onset Date Comments Information Only 12/12/2024 Encounter Details Date Type Department Care Team (Late st Contact Info) Description 12/12/2024 Telephone SEP Nurse Now [facility] [place] [address] Abner Bar, LAY Information Only Social History Tobacco Use Types Packs/Day Years Used Date Smoking Tobacco: Every Day Cigarettes 1 37.1 Started: [birth year]/10/1989 Smokeless Tobacco: Never Alcohol Use Standard Drinks/Week Comments Not Currently 0 (1 standard drink = 0.6 oz pur e alcohol) [facility] Utilities Answer Date Recorded In the [...] Date Recorded PHQ-2 Total Score 0 12/04/2024 [facility] [place] of Occupat ional Health - Occupational Stress [...] have money to get more. Never true [facility] IP Transportation Answer D ate Recorded [...] Telephone Encounter - Radha Lange RMA - 12/12/2024 12:59 PM EDT Just fyi. * Telephone Encounter - Abner Bar RN - 12/12/2024 11:44 AM EDT Patient's calling asking for a fax number for urology NPT / FTT. Patient's also trying to get in touch with Peace Rea NP- to make aware that information/ records are being faxed to the office Routing message to make aware that is sending blood work post hospital records via fax [phone]. documented in this encounter Plan of Treatment Upcoming Encounters Date Type Department Care Team (Late st Contact Info) Description 12/21/2024 2:30 PM EDT Office Visit [facility] NPTFTT [address] [place] [address] Dorinda Rodriguez, PA-C [address] [place] [address] 01/23/2025 9:00 AM EDT Office Visit [facility] Cardiac Surgeons [address] [place] [address] Logan Kenny MD [address] [place] [address] documented as of this encounter Visit Diagnoses Not on filedocumented in this encounter Additional Health Concerns Infection Onset Date Last Indicated Resolved Time C-diff 12/06/2024 12/06/2024 documented as of this encounter Care Teams Air Turning Machine Feeder Relationship Specialty Start Date End Date Reyna Perez APRN [facility] [address] [place] [address] PCP - General Nurse Practitioner 10/27/24 documented as of this encounter
--- OUTSIDE RECORDS SUMMARY | 2024-12-13 08:00 | XMS_ITS | Encounter Summary ---
Author Organization [place] [address] Care Team Providers Care Finish Molder Name Role Phone Reyna Perez DEMETRIUS Primary Care Provider [phone] Encounter Details Date Type Department Care Team (Late Contact Info) Description 10/20/2024 Results Follow-Up [facility] Urology NPTFTT [address] [place] [address] Patricia Ellison MD [address] [place] [address] NON-WATER QUALITY ASSISTANT CYTOLOGY REQUEST Social History Tobacco Use Types [...] EDT Office Visit [facility] NPTFTT [address] [place] [address] Dorinda Rodriguez PA-C [address] [place] [address] 01/23/2025 9:00 AM EDT Office Visit [facility] Cardiac Surgeons [place] [address] [place] [address] [address] [place] [address] Logan Kenny MD [address] [facility] [place] [address] documented as of this encounter Visit Diagnoses Not on filedocumented in this encounter Additional Health Concerns Infection Onset Date Last Indicated Resolved Time R/O C-Diff 12/06/2024 12/06/2024 12/06/2024 1:17 PM EDT C-diff 12/06/2024 12/06/2024 documented as of this encounter Care Teams Finish Molder Relationship Specialty Start Date End Date Reyna Perez APRN 1210 [facility] [address] [facility] [address] PCP - General Nurse Practitioner 10/27/24 documented as of this encounter
--- OUTSIDE RECORDS SUMMARY | 2024-12-13 08:01 | XMS_ITS | Clinical Summary ---
Author Organization [facility] Address [address] [place] [address] Care Team Providers Care Product Safety Professional Name Role Phone ChrisReyna mccoy Jonathan ROMO Primary Care Provider [phone] Encounters Date Type Department Care Team Description 09/25/2024 Orders Only [facility] Augusto [address] [place] [address] Michelle Lopez RN Coronary artery disease involving [place] heart with angina pectoris, unspecified vessel or [...] Date Last Done Comments [facility]-Depression Screening 1974 [facility]-Infant/Child/Adol SDOH Screenings 1974 [facility]- SDOH Screenings 1992 [facility]-Adult SDOH Screenings 1992 [facility]-Hepatitis B Vaccines (1 of 3 - 19+ 3-dose series) 1993 [facility]-DTaP,Tdap,and Td Vaccine s (1 - Tdap) 07/12/1996 07/11/1996 CT Colonography 07/27/2019 Colonoscopy 07/27/2019 FIT-DNA 07/27/2019 FIT 07/27/2019 FOBT 07/27/2019 Sigmoidoscopy 07/27/2019 [facility]-Colorectal Cancer Screening 07/27/2019 [id number] Vaccine (1 - 20 24-25 season) 2024 [facility]-Pneumococcal Vaccine: 50 + Years (1 of 1 - PCV) 2024 [facility]-Zoster Vaccines (1 of 2) 2024 [facility]-Influenza Vaccine (#1) 2025 HPV Vaccines Aged Out No longer [...] patient's age to complete this topic Insurance [facility] [address] [place] Care Teams Product Safety Professional Relationship Specialty Start Date End Date Reyna Perez APRN [facility] [place] [address] PCP - General 09/15/22
--- OUTSIDE RECORDS SUMMARY | 2024-12-13 08:01 | XMS_ITS | Encounter Summary ---
Author Organization [place] [address] Care Team Providers [facility] Former Name Role Phone Reyna Perez APRN Primary Care Provider [phone] Reason for Visit * Reason Onset Date Comments Medication Refill 11/21/2024 Encounter Details Date Type Department Care Team (Late Contact Info) Description 11/21/2024 Refill [facility] [address] [place] [address] Patricia Ellison MD [address] [place], [place] [id number] Medication Refill Social History Tobacco Use Types [...] hours for 10 days. 20 Tablet 11/21/2024 12/01/2024 documented in this encounter Plan of Treatment Upcoming Encounters Date Type Department Care Team (Late Contact Info) Description 12/21/2024 2:30 PM EDT Office Visit [facility] [address] [place] [address] Dorinda Rodriguez PA-C [address] [place] [address] 01/23/2025 9:00 AM EDT Office Visit [facility] Cardiac Surgeons [address] [place] [address] Logan Kenny MD [address] [place] [address] documented as of this encounter Visit Diagnoses Not on filedocumented in this encounter Discontinued Medications Medication Sig Discontinue Reason Start Date End Da te sulfamethoxazole-trimeth oprim (BACTRIM DS) 800-160 mg Oral Tablet Take 1 Tablet by mouth every 12 hours for 10 days. Reorder 11/05/2024 11/21/2024 documented as of this encounter Care Teams Cone Former Relationship Specialty Start Date End Date Reyna Perez APRN [facility] [address] [place] [address] PCP - General Nurse Practitioner 10/27/24 documented as of this encounter
--- OUTSIDE RECORDS SUMMARY | 2024-12-13 08:01 | XMS_ITS | Encounter Summary ---
Author Organization [place] [address] Care Team Providers Care Boat Carpenter Mechanic Name Role Phone Reyna Perez DEMETRIUS Primary Care Provider [phone] Reason for Visit * Reason Onset Date Comments Hematuria 11/20/2024 Encounter Details Date Type Department Care Team (Late st Contact Info) Description 11/20/2024 Nurse Triage [facility] Nurse Now [address] [place] [address] Gala Loya RN Social History Tobacco Use Types Packs/Day [...] Telephone Encounter - Gala Loya RN - 11/20/2024 11:50 PM EDT calling back to report - he urinated again and it is pink. They live 1 hour from ED and would like to discuss with provider parcel contractor [place] sent * Telephone Encounter - Gala Loya RN - 11/20/2024 11:12 PM EDT Nurse Triage Call -Chief Complaint: blood in urine x2 after intercourse - on blood thinner -Reported by: Spouse/Significant Other -Vitals: No vitals obtained on this call -Disposition per protocol: see hcp w/in 4 hours -Follow up/Concerns: Reason for Disposition Taking Coumadin (warfarin) or other strong blood thinner, or known bleeding disorder (e.g., thrombocytopenia) Answer Assessment - Initial Assessment Questions 1. COLOR of URINE: Describe the color of the urine. (e.g., tea-colored, pink, red, bloody) Do you have blood clots in your urine? (e.g., none, pea, grape, small coin) dark red 2. ONSET: When did the bleeding start? just now after intercourse 3. EPISODES: How many times has there been blood in the urine? or How many times today? 2 4. PAIN with URINATION: Is there any pain with passing your urine? If Yes, ask: How bad is the pain? (Scale 1-10; or mild, moderate, severe) - MILD: Complains slightly about urination hurting. - MODERATE: Interferes with normal activities. - SEVERE: Excruciating, unwilling or unable to urinate because of the pain. no 5. FEVER: Do you have a fever? If Yes, ask: What is your temperature, how was it measured, and when did it start? no 6. ASSOCIATED SYMPTOMS: Are you passing urine more frequently than usual? no 7. OTHER SYMPTOMS: Do you have any other symptoms? (e.g., back/flank pain, abdomen pain, vomiting) no 8. : Is there any chance you are ? When was your last menstrual period? no Protocols used: Urine - Blood In-A- documented in this encounter Plan of Treatment Upcoming Encounters Date Type Department Care Team (Late st Contact Info) Description 12/21/2024 2:30 PM EDT Office Visit [facility] [address] [place] [address] Dorinda Rodriguez PA-C [address] [place] [address] 01/23/2025 9:00 AM EDT Office Visit [facility] Cardiac Surgeons [address] [place] [address] Logan Kenny MD [address] [facility] [place] [address] documented as of this encounter Visit Diagnoses Not on filedocumented in this encounter Care Teams Boat Carpenter Mechanic Relationship Specialty Start Date End Date Reyna Perez APRN [address] [place] [address] PCP - General Nurse Practitioner 10/27/24 documented as of this encounter
--- OUTSIDE RECORDS SUMMARY | 2024-12-13 08:01 | XMS_ITS | Clinical Summary ---
Author Organization [facility] Address [address] [place], [place] [address] Phone Care Team Providers Care Cocoa Butter Filter Operator Name Role Phone Reyna Perez APRN Primary Care Provider Allergies No known active allergies Medications aspirin [...] Capsule Take 1 Capsule by mouth daily. Active HYDROcodone-david taminophen (NORCO) 5-325 mg Oral Tablet Take 1 Tablet by mouth every 6 hours as needed for Acute Pain > 3 Days Medically Necessary (R52) or Acute Pain (R52). 12 Tablet 5 Active Additional Information Patient not taking.Reason: Pt electing to not take the medication, Reported on 12/01/2024 acetaminophen 325 mg Oral Tab Take 2 Tablets by mouth every 4 hours as needed for Fever. 5 Active traMADoL (ULTRAM) 50 mg Oral Tablet Take 1 Tablet by mouth every 6 hours as needed for Pain for up to 10 days. 20 Tablet 12/08/2024 11:27 AM EDT 5 12/19/19 25 Active tolterodine (DETROL LA) 4 mg Oral Capsule, Sust. Release 24 hr Take 1 Capsule by mouth daily. 30 Capsule 12/08/2024 11:27 AM EDT 5 Active hydrOXYzine (VISTARIL) 25 mg Oral Capsule Take 1 Capsule by mouth every 8 hours as needed for Anxiety. 30 Capsule 12/08/2024 11:27 AM EDT 5 Active vancomycin (VANCOCIN) 125 mg Oral Capsule Take 1 Capsule by mouth 4 times daily for 34 doses. 34 Capsule 12/08/2024 11:27 AM EDT 5 12/18/19 25 Active sulfamethoxazol e-trimethoprim (BACTRIM DS) 800-160 mg Oral Tablet Take 1 Tablet by mouth every 12 hours for 10 days. 20 Tablet 5 12/02/19 25 Additional Information Patient not taking.Reason: Advised by Physician (christian SIDDIQI), Reported on 12/01/2024 cefUROXime (CEFTIN) 500 mg Oral Tablet Take 1 Tablet by mouth every 12 hours for 5 doses. 5 Tablet 12/08/2024 11:27 AM EDT 5 12/12/19 25 Active Problems Problem Noted Date Diagnosed Date C. difficile diarrhea 12/07/2024 Assessment & Plan (12/08/2024 10:05 AM EDT): - per urology on oral vanc Assessment & Plan (12/07/2024 2:47 PM EDT): - per urology on oral vanc Sepsis without acute organ dysfunction Assessment & Plan (12/08/2024 10:05 AM EDT): - likely due to infection and blood loss anemia, was on ceftriaxone, cultures negative thus far. Sepsis syndrome improved - changed antibiotics to PO Assessment & Plan (12/07/2024 2:47 PM EDT): - likely due to infection and blood loss anemia, was on ceftriaxone, cultures negative thus far. Sepsis syndrome improved - changed antibiotics to PO Assessment & Plan (12/06/2024 1:51 PM EDT): - likely due to infection and blood loss anemia, was on ceftriaxone, cultures negative thus far. Sepsis syndrome improved - change antibiotics to PO Assessment & Plan (12/05/2024 1:37 PM EDT): - likely due to infection and blood loss anemia, continue ceftriaxone, cultures negative thus far. Sepsis syndrome improved Assessment & Plan (12/04/2024 9:09 AM EDT): Improving. Assessment & Plan (12/03/2024 8:56 AM EDT): - likely due to infection and blood loss anemia, continue ceftriaxone, cultures negative thus far. Sepsis syndrome improved Assessment & Plan (12/02/2024 12:14 PM EDT): - noted on imaging, SBP was in the 60's and now improved 118/53. Follow cultures. Lactate was elevated, trend. Change to high dose ceftriaxone Community acquired pneumonia of right middle lob e of lung 12/02/2024 Assessment & Plan (12/08/2024 10:05 AM EDT): - likely due to infection and blood loss anemia, was on ceftriaxone, cultures negative thus far. Sepsis syndrome improved - changed antibiotics to PO Assessment & Plan (12/07/2024 2:47 PM EDT): - likely due to infection and blood loss anemia, was on ceftriaxone, cultures negative thus far. Sepsis syndrome improved - changed antibiotics to PO Assessment & Plan (12/06/2024 1:51 PM EDT): - likely due to infection and blood loss anemia, was on ceftriaxone, cultures negative thus far. Sepsis syndrome improved - change antibiotics to PO Assessment & Plan (12/05/2024 1:37 PM EDT): - likely due to infection and blood loss anemia, continue ceftriaxone, cultures negative thus far. Sepsis syndrome improved Assessment & Plan (12/04/2024 9:09 AM EDT): Continue ceftriaxone. Sepsis improving. Assessment & Plan (12/03/2024 8:56 AM EDT): - likely due to infection and blood loss anemia, continue ceftriaxone, cultures negative thus far. Sepsis syndrome improved Assessment & Plan (12/02/2024 12:14 PM EDT): - noted on imaging, SBP was in the 60's and now improved 118/53. Follow cultures. Lactate was elevated, trend. Change to high dose ceftriaxone Hypotension 12/02/2024 Assessment & Plan (12/08/2024 10:05 AM EDT): - likely due to infection and blood loss anemia, was on ceftriaxone, cultures negative thus far. Sepsis syndrome improved - changed antibiotics to PO Assessment & Plan (12/07/2024 2:47 PM EDT): - likely due to infection and blood loss anemia, was on ceftriaxone, cultures negative thus far. Sepsis syndrome improved - changed antibiotics to PO Assessment & Plan (12/06/2024 1:51 PM EDT): - likely due to infection and blood loss anemia, was on ceftriaxone, cultures negative thus far. Sepsis syndrome improved - change antibiotics to PO Assessment & Plan (12/05/2024 1:37 PM EDT): - likely due to infection and blood loss anemia, continue ceftriaxone, cultures negative thus far. Sepsis syndrome improved Assessment & Plan (12/04/2024 9:09 AM EDT): Blood pressure soft. Plan to hold metoprolol. Assessment & Plan (12/03/2024 8:56 AM EDT): - likely due to infection and blood loss anemia, continue ceftriaxone, cultures negative thus far. Sepsis syndrome improved Assessment & Plan (12/02/2024 12:14 PM EDT): - noted on imaging, SBP was in the 60's and now improved 118/53. Follow cultures. Lactate was elevated, trend. Change to high dose ceftriaxone S/p nephrectomy 12/02/2024 Assessment & Plan (12/08/2024 2:26 PM EDT): - urology consulted - 12/01 - s/p Robot-assisted laparoscopic left radical nephroureterectomy. 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 - pathology pending Assessment & Plan (12/03/2024 8:56 AM EDT): - 12/01 - Robot-assisted laparoscopic left radical nephroureterectomy. Plan per urology, follow path - await urology plans for today Assessment & Plan (12/02/2024 12:14 PM EDT): - 12/01 - Robot-assisted laparoscopic left radical nephroureterectomy. Plan per urology, follow path Acute blood loss as cause of postoperative anemi a 12/02/2024 Assessment & Plan (12/08/2024 2:26 PM EDT): - hgb 14.5 on admission>>7.2>>9.4>8.7>9.7>9.3 on DC - has received 3 units rbc - ASA on hold - per urology, no need for serial h/h - check iron level - low - started PO iron PLAN: hgb stable, hydroxyzine and ceftin prescribed for DC Dispo: per urology; OT/PT recs 24 hour supervision with low frequency therapy - medically ready for DC Assessment & Plan (12/07/2024 2:47 PM EDT): - hgb 14.5 on admission>>7.2>>9.4>8.7>9.7 - has received 3 units rbc - ASA on hold - per urology, no need for serial h/h - check iron level - low - started PO iron PLAN: cysto today per urology, labs in am Dispo: per urology; OT/PT recs 24 hour supervision with low frequency therapy - patient hopeful for tomorrow Assessment & Plan (12/06/2024 1:51 PM EDT): - hgb 14.5 on admission>>7.2>>9.4>8.7 - has received 3 units rbc - ASA on hold - per urology, no need for serial h/h - check iron level - low - start PO iron PLAN: start PO iron, change antibiotics to PO, prn vistaril Dispo: per urology; OT/PT recs 24 hour supervision with low frequency therapy Assessment & Plan (12/05/2024 1:37 PM EDT): - hgb 14.5 on admission>>>9.4 - has received 3 units rbc - ASA on hold - per urology, no need for serial h/h - check iron level PLAN: melatonin qhs, check iron level, consult PT/OT Dispo: per urology Assessment & Plan (12/04/2024 9:09 AM EDT): Received 2 units of packed red blood cell. Plan for another 1 unit of packed red blood cell transfusion Monitor hemoglobin closely after transfusion. Assessment & Plan (12/03/2024 8:56 AM EDT): - Hgb trended down yesterday, s/p [address] shows possible small hemorrhage, need to continue asa due to CAD unless has massive bleed Assessment & Plan (12/02/2024 4:37 PM EDT): - Hgb trending down, check again. No report of heavy blood loss in OR Elevated troponin 12/02/2024 Assessment & Plan (12/08/2024 10:05 AM EDT): - CABG planned at some point diffuse severe disease, troponin elevation likely due to demand ischemia, - cards consulted - was holding asa, restarted 12/07 - statin Assessment & Plan (12/07/2024 2:47 PM EDT): - CABG planned at some point diffuse severe disease, troponin elevation likely due to demand ischemia, - cards consulted - was holding asa, restarted 12/07 - statin Assessment & Plan (12/06/2024 1:51 PM EDT): - CABG planned at some point diffuse severe disease, troponin elevation likely due to demand ischemia, - cards consulted - holding asa for now, restart 12/09 per urology - statin Assessment & Plan (12/05/2024 1:37 PM EDT): - CABG planned at some point diffuse severe disease, troponin elevation likely due to demand ischemia, - cards consulted - holding asa for now - statin Assessment & Plan (12/03/2024 8:56 AM EDT): - CABG planned at some point diffuse severe disease, troponin elevation likely due to demand ischemia, - cards following, cont asa, statin 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 - pathology pending Assessment & Plan (12/04/2024 9:09 AM EDT): Status post left radical nephroureterectomy Assessment & Plan (12/03/2024 8:56 AM EDT): - 12/01 - Robot-assisted laparoscopic left radical nephroureterectomy. Plan per urology, follow path - await urology plans for today Assessment & Plan (12/02/2024 12:14 PM EDT): - 12/01 - Robot-assisted laparoscopic left radical nephroureterectomy. Plan per urology, follow path Ureteral mass 10/19/2024 Assessment & Plan (12/08/2024 2:26 PM EDT): - urology consulted - 12/01 - s/p Robot-assisted laparoscopic left radical nephroureterectomy. 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 - pathology pending Assessment & Plan (12/04/2024 9:09 AM EDT): Status post robotic assisted laparoscopic left radical nephroureterectomy 12/01 Urology following. DAMIEN drain in place. DAMIEN drain with bloody output. Assessment & Plan (12/03/2024 8:56 AM EDT): - 12/01 - Robot-assisted laparoscopic left radical nephroureterectomy. Plan per urology, follow path - await urology plans for today Assessment & Plan (12/02/2024 12:14 PM EDT): - 12/01 - Robot-assisted laparoscopic left radical nephroureterectomy. Plan per urology, follow path Coronary artery disease invo lving habematolel coronary artery of habematolel heart without angina pectoris 10/10/2024 Assessment & Plan (12/08/2024 10:05 AM EDT): - CABG planned at some point diffuse severe disease, troponin elevation likely due to demand ischemia, - cards consulted - was holding asa, restarted 12/07 - statin Assessment & Plan (12/07/2024 2:47 PM EDT): - CABG planned at some point diffuse severe disease, troponin elevation likely due to demand ischemia, - cards consulted - was holding asa, restarted 12/07 - statin Assessment & Plan (12/06/2024 1:51 PM EDT): - CABG planned at some point diffuse severe disease, troponin elevation likely due to demand ischemia, - cards consulted - holding asa for now, restart 12/09 per urology - statin Assessment & Plan (12/05/2024 1:37 PM EDT): - CABG planned at some point diffuse severe disease, troponin elevation likely due to demand ischemia, - cards consulted - holding asa for now - statin Assessment & Plan (12/04/2024 9:09 AM EDT): Cardiology consulted. Plan for CABG at some point. Diffuse severe disease. Aspirin and statin. Aspirin complicates due to persistent bleeding. Assessment & Plan (12/03/2024 8:56 AM EDT): - CABG planned at some point diffuse severe disease, troponin elevation likely due to demand ischemia, - cards following, cont asa, statin Assessment & Plan (12/02/2024 12:14 PM EDT): - diffuse severe disease, troponin elevation likely due to demand ischemia, consult cards. Cont statin, asa Encounters Date Type Department Care Team Description 12/12/2024 Telephone [facility] [address] [place] [address] Abner Bar, LAY Information Only 12/11/2024 Results [place] [facility] [place] [address] [address] Sadi Haney MD PATHOLOGY TISSUE REQUEST 12/10/2024 Nurse Triage [facility] [address] [place] [address] Kiesha Gomez, LAY 12/09/2024 Nurse Triage [facility] [address] [place] [address] Clara Gutierrez RN 12/08/2024 Telephone [facility] [address] [place] [address] Dorinda Rodriguez PA-C Schedule Appointment 12/04/2024 Telephone [facility] [place] [address] [phone] Sadi Haney MD Schedule Appointment 12/01/2024 11:21 AM EDT Anesthesia Event [facility] [place] [address] Tommy Romero DO Collins, Angela, DEMETRIUS 12/01/2024 10:35 AM EDT - 12/01/2024 4:50 PM EDT Surgery [facility] [address] [place] [id number] Sadi Haney MD DAVINCChun ROBOTIC NEPHROURETERECTOMY 12/01/2024 9:50 AM EDT Ancillary Procedure [facility] SAME DAY SURGERY [facility] [place] [address] Sadi Haeny MD 12/01/2024 8:38 AM EDT - 12/08/2024 11:29 AM EDT Hospital Encounter [place] [address] Sadi Haney MD Preop testing (Primary Dx); Ureteral mass Discharge Disposition: Discharge/Readmit 12/01/2024 Travel 11/23/2024 12:38 PM EDT - 11/23/2024 11:59 PM EDT Hospital Encounter [facility] PRE-ADMIT TESTING [facility] [place] [address] Pre-op testing (Primary Dx); Ureteral mass Discharge Disposition: Home or Self Care 11/23/2024 Travel 11/21/2024 Refill [facility] [address] [place] [address] Patricia Ellison MD Medication Refill 11/20/2024 Nurse Triage [facility] [address] [place] [phone] Gala Loya RN 11/07/2024 3:27 AM EDT - 11/07/2024 7:08 AM EDT Emergency [facility] [address] [facility] [place] [address] Garo Ndiaye MD Dyspnea, unspecified type (Primary Dx) Discharge Disposition: Home or Self Care 11/07/2024 Telephone [facility] Nurse Now [address] [place] [phone] Cheyanne Rain RN Surgery Scheduling 11/07/2024 Travel 11/07/2024 Nurse Triage [facility] Nurse Now [address] [place] [phone] Renetta Jolly RN 11/05/2024 Results [place] [facility] [place] [facility] [address] [place] [address] Patricia Ellison MD NON-SPINNER CONTINUOUS CYTOLOGY REQUEST, PATHOLOGY TISSUE REQUEST 11/02/2024 Telephone [facility] Nurse Now [address] [place] [phone] Cheyanne Rain, RN Hematuria 11/01/2024 Telephone [facility] Nurse Now [address] [place] [phone] Fito Weeks, LAY Results 10/31/2024 Telephone [facility] Cardiac Surgeons [address] [place] [phone] Deb Woodall APRN Dizziness 10/28/2024 Nurse Triage [facility] Nurse Now [address] [place] [phone] Tamar Alan, LAY 10/27/2024 1:38 PM EDT Anesthesia Event [facility] [address] [facility] [place] [address] Sherita Moya MD Record, Jhoana Gutierrez, FLOOR COVERINGS SALESPERSON 10/27/2024 1:00 PM EDT - 10/27/2024 1:55 PM EDT Surgery [facility] [address] [place] [address] Patricia Ellison MD CYSTOSCOPY URETEROSCOPY STENT PLACEMENT OR EXCHANGE 10/27/2024 11:03 AM EDT - 10/27/2024 4:21 PM EDT Hospital Encounter [facility] SAME DAY SURGERY [address] [place] [address] Patricia Ellison MD Ureteral mass Discharge Disposition: Home or Self Care 10/27/2024 Nurse Triage [facility] [address] [place] [phone] Kristine Ventura RN 10/27/2024 Travel 10/25/2024 1:42 PM EDT - 10/25/2024 11:59 PM EDT Hospital Encounter [facility] PRE-ADMIT TESTING [facility] [place] [id number] Discharge Disposition: Home or Self Care 10/25/2024 Travel 10/24/2024 9:00 AM EDT Telemedicine [facility] Cardiac Surgeons [address] [place] [address] Logan Kenny MD ASHD (arteriosclerotic heart disease) (Primary Dx); Ureteral mass 10/23/2024 Telephone [facility] [address] [place] [phone] Fito Weeks, retail service specialist Management 10/20/2024 6:50 AM EDT - 10/20/2024 11:59 PM EDT Hospital Encounter [facility] [address] [place] [address] [address] [place] [address] Logan Kenny MD SOB (shortness of breath) Discharge Disposition: Home or Self Care 10/20/2024 Telephone [facility] Cardiac Surgeons [address] [place] [address] Logan Kenny MD Follow-up 10/20/2024 Results Follow-Up [facility] [address] [place] [address] Patricia Ellison MD NON-SPINNER CONTINUOUS CYTOLOGY REQUEST 10/19/2024 3:00 PM EDT Office Visit [facility] [address] [place] [phone] Patricia Ellison MD Ureteral mass (Primary Dx) 10/19/2024 10:03 AM EDT - 10/19/2024 11:59 PM EDT Hospital Encounter [facility] [address] [place] [address] Logan Kenny MD Hydronephrosis, unspecified hydronephrosis type Discharge Disposition: Home or Self Care 10/19/2024 7:44 AM EDT - 10/19/2024 10:02 AM EDT Hospital Encounter [facility] [address] [place] [address] Logan Kenny MD Bruit Discharge Disposition: Home or Self Care 10/19/2024 7:44 AM EDT - 10/19/2024 10:02 AM EDT Hospital Encounter [facility] [address] [place] [address] Logan Kenny MD Leg swelling Discharge Disposition: Home or Self Care 10/19/2024 Results Follow-Up [facility] Card[facility] Surgeons [address] [place] [address] ABDOMEN PELVIS WO ORAL WITH IV CONTRAST 10/19/2024 Orders Only [facility] [address] [place] [address] Christian Nicholas MD Abnormal CT scan (Primary Dx) 10/19/2024 Refill [facility] Disease [facility] [address] [facility] [address] [place] [address] Janet Perez APRN Medication Refill 10/12/2024 9:27 AM EDT - 10/12/2024 11:59 PM EDT Hospital Encounter [place] [facility] [address] [place] [address] Logan Kenny MD Coronary artery disease involving habematolel coronary artery of habematolel heart with angina pectoris Discharge Disposition: Home or Self Care 10/12/2024 Orders Only [facility]geons [address] [place] [phone] Logan Kenny MD Hydronephrosis, unspecified hydronephrosis type (Primary Dx) 10/12/2024 Telephone [facility] [address] [place] [phone] Raine Guerrero MA Patient Question 10/12/2024 Results Follow-Up [facility]geons [address] [place] [phone] CHEST WO CONTRAST 10/10/2024 2:00 PM EDT Office Visit [facility] [address] [place] [phone] Logan Kenny MD ASHD (arteriosclerotic heart disease) (Primary Dx) 10/10/2024 Orders Only [facility] [address] [place] [phone] Logan Kenny MD Bruit (Primary Dx); Leg swelling; SOB (shortness of breath); Coronary artery disease involving habematolel coronary artery of habematolel heart with angina pectoris 10/10/2024 Orders Only [facility] [address] [place] [phone] Raine Guerrero MA from Last 3 Months Surgical History Surgery Date Site/Laterality Comments CARDIAC CATHETERIZATION CORONARY ANGIOPLASTY WITH STENT PLACEMENT Sep 19 2022 CYSTOSCOPY 10/27/2024 Surgeon: Patricia Ellison MD; Location: [facility]; Service: Urology Medical devices from this surgery are in the Medical Devices section. TOTAL NEPHRECTOMY 12/01/2024 Left LEFT DAVINCI ROBOTIC NEPHROURETERECTOMY, CYSTOSCOPY, TRANSURETHRAL RESECTION OF THE BLADDER TUMOR; Surgeon: Sadi Haney MD; Location: [facility]; Service: Urology BLADDER TUMOR EXCISION 12/01/2024 Urethra/N/A Surgeon: Sadi Haney MD; Location: [facility] MAIN OR; Service: Urology [place] CYSTOGRAM MINIMUM 3 VW 12/07/2024 [place] CYSTOGRAM MINIMUM 3 VW 12/07/2024 [facility] XRAY Medical History Medical History Date Comments CAD (coronary artery disease) [place] (myocardial infarction) (HCC) 09/17/2024 Hypertension Hyperlipidemia Heartburn Kidney mass left Motion sickness Anxiety Cancer (HCC) GERD (gastroesophageal reflux disease) Family History Medical History Relation Name Comments Asthma Father Papito Cancer Father Papito Diabetes Father Papito Heart Disease Father Papito High Blood Pressure Father Papito High Cholesterol Father Papito Asthma Mother Ananya Anesth Problems Neg Hx Relation Name Status Comments Father Papito Alive Mother Ananya Alive Social History Tobacco Use Types Packs/Day Years Used Date Smoking Tobacco: Every Day Cigarettes 1 37.1 Started: 05/10/1989 Smokeless Tobacco: Never Tobacco Cessation:Ready to Q uit: Not Asked; Counseling Given: Not Answered Alcohol Use Standard Drinks/Week Comments Not Currently 0 (1 standard drink = 0.6 oz pur e alcohol) [facility] Utilities Answer Date Recorded In the past 12 months has [employer], gas, oil, or water Stop Being Watched threatened to shut off services in your home? No 12/04/2024 Overall Financial Resource Strain (CARDIA) Answe r Date Recorded How hard is it for you to pa y for the very basics like food, housing, medical care, and heating? Somewhat hard 12/04/2024 PHQ-2 Answer Date Recorded PHQ-2 Total Score 0 12/04/2024 [facility] Occupat ional [facility] - Occupational Stress [...] have money to get more. Never true [facility] IP Transportation Answer D ate Recorded [...] Mass Index 36.95 12/01/2024 8:06 PM EDT Plan of Treatment Upcoming Encounters Date Type Department Care Team (Late st Contact Info) Description 12/21/2024 2:30 PM EDT Office Visit [facility] NPTFTT [address] [place] [address] Dorinda Rodriguez PA-C [address] [place] [address] 01/23/2025 9:00 AM EDT Office Visit [facility] Cardiac Surgeons [place] [address] [place] [address] Drive [address] [place] [address] Logan Kenny MD [address] [place] [address] [place] [address] Health Maintenance Due Date Last Done Comments [...] on patient's age to complete this topic Medical Devices Implanted Type Area Systems Designer Device Identifier Shelf Expiration Date Model / Serial / Lot Cardiac Stent Explanted Type Area Systems Designer Device Identifier Shelf Expiration Date Model / Serial / Lot Stent Uret [id number] Contr Dbl Pig Tapr Lpro Percuflx Cath - [id number] Implanted:Qty : 1 on 10/27/2024 by Patricia Ellison MD at [facility] Stent Left: Ureter [employer]:MICROVASIVE: UROLOGY [id number] 03/22/2027 [id number] / / [id number] Procedures Procedure Name Priority Date/Time Associated Diagnosis [...] EDT IRON+TIBC Add-On 12/04/2024 5:52 AM EDT BASIC METABOLIC PANEL Early AM 12/04/2024 5:52 AM EDT CBC WITH DIFF Early AM 12/04/2024 5:52 AM EDT ECG AND WAVEFORMS - TELEMETRY Routine 12/03/2024 7:00 PM EDT HEMOGLOBIN AND HEMATOCRIT Timed 12/03/2024 10:44 AM EDT ECG AND WAVEFORMS - TELEMETRY Routine 12/03/2024 7:00 AM EDT HEMOGLOBIN AND HEMATOCRIT Timed 12/03/2024 4:48 AM EDT BASIC METABOLIC PANEL Early AM 12/03/2024 3:40 AM EDT CBC WITH DIFF Early AM 12/03/2024 3:40 AM EDT TROPONIN-T HIGH SENSITIVITY 6 HR Timed 12/03/2024 3:40 AM EDT TRANSFUSE RED BLOOD [...] - TELEMETRY Routine 12/02/2024 7:00 PM EDT HEMOGLOBIN AND HEMATOCRIT Timed 12/02/2024 6:17 PM EDT REPEAT LACTIC ACID STAT 12/02/2024 6:17 PM EDT REPEAT LACTIC ACID STAT 12/02/2024 3:49 PM EDT ECG AND WAVEFORMS - TELEMETRY Routine 12/02/2024 3:11 PM EDT LACTIC ACID Routine 12/02/2024 1:42 PM EDT BLOOD CULTURE (NO STAIN) STAT 12/02/2024 1:42 PM EDT ECG AND WAVEFORMS - TELEMETRY Routine 12/02/2024 12:27 PM EDT REPEAT LACTIC ACID STAT 12/02/2024 10:59 AM EDT URINALYSIS REFLEX Routine 12/02/2024 10:53 AM EDT UA W/REFLEX TO CULTURE Routine 12/02/2024 10:53 AM EDT URINE CULTURE (NO STAIN) Routine 12/02/2024 10:53 AM EDT EXTRA SWENSON URINE CX Routine 12/02/2024 10:53 AM EDT BLOOD CULTURE (NO STAIN) STAT 12/02/2024 10:51 AM EDT XR CHEST AP PORTABLE STAT 12/02/2024 9:55 AM EDT IP CONSULT TO CARDIOLOGY Routine 12/02/2024 9:24 AM EDT Procedure Note - Bear Samuel MD - 12/02/2024 11:56 AM EDTThis note is in progress. 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) BP 118/53 (BP Location: Right arm) Pulse 103 Temp 98 F (36.7 C)(Oral) Resp 18 Ht 5' 8 (1.727 m) Wt 243 lb (110.2 kg) WlS443% BMI 36.95 kg/m I/O 24 hours: Intake/Output Summary (Last 24 hours) at 12/02/2024 1156 Last data filed at 12/02/2024 1154 Gross per 24 hour Intake 7111.22 ml Output 1360 ml Net 5751.22 ml Diagnostic tests The most recent cardiovascular imaging studies available in [facility] EMR werereviewed at time of [...] no acute ischemia appreciated -Trops -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 Alex Pugh is a 49 y.o. 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 - diffuse severe [...] Routine 12/01/2024 3:36 PM EDT Ureteral mass INTRAOP AIRWAY PLACEMENT Routine 12/01/2024 11:33 AM EDT CYSTOSCOPY TRANSURETHRAL RESECTION BLADDER TUMOR - FULGURATION/EVACUAT ION OF CLOT 12/01/2024 11:21 AM EDT Ureteral mass Special Needs LASSITER KNIFE, HANG WATER, OLYMPUS ESU, CYSTO FIRST, KCDR HAJ-HAMED ASSISTINGsk GA CYSTOURETHROSCOPY W/DEST &/RMVL MED BLADDER EMERY 12/01/2024 11:21 AM EDT Ureteral mass Special Needs LASSITER KNIFE, HANG WATER, OLYMPUS ESU, CYSTO FIRST, KCDR HAJ-HAMED ASSISTINGsk GA LAPAROSCOPY RADICAL NEPHRECTOMY 12/01/2024 11:21 AM EDT Ureteral mass Special Needs LASSITER KNIFE, HANG WATER, OLYMPUS ESU, CYSTO FIRST, KCDR HAJ-HAMED ASSISTINGsk GA LAPAROSCOPY NEPHRECTOMY W/TOTAL URETERECTOMY 12/01/2024 11:21 AM EDT Ureteral mass Special Needs LASSITER KNIFE, HANG WATER, OLYMPUS ESU, CYSTO FIRST, KCDR HAJ-HAMED ASSISTINGsk ANE US GUIDANCE Routine 12/01/2024 10:32 AM EDT US ANES GUIDANCE FOR POC PIEDAD 12/01/2024 9:47 AM EDT BB HISTORY CHECK STAT 12/01/2024 9:22 AM EDT Preop testing ABORH STAT 12/01/2024 9:22 AM EDT Preop testing RED BLOOD CELLS REQUEST [facility] 11/23/2024 2:10 PM EDT RED BLOOD CELLS REQUEST [facility] 11/23/2024 2:10 PM EDT BB HISTORY CHECK Routine 11/23/2024 2:10 PM EDT Pre-op testing Ureteral mass SURGERY DATE Routine 11/23/2024 2:10 PM EDT Pre-op testing Ureteral mass ANTIBODY SCREEN IGG Routine 11/23/2024 2:10 PM EDT Pre-op testing Ureteral mass ABORH Routine 11/23/2024 2:10 PM EDT Pre-op testing Ureteral mass PREADMISSION TYPE AND SCREEN Routine 11/23/2024 2:10 PM EDT Pre-op testing Ureteral mass BASIC METABOLIC PANEL Routine 11/23/2024 2:10 PM EDT Pre-op testing Ureteral mass CBC WITH DIFF Routine 11/23/2024 2:10 PM EDT Pre-op testing Ureteral mass SCANNED EKG 11/07/2024 10:27 AM EDT XR CHEST PA AND LATERAL STAT 11/07/2024 4:02 AM EDT D-DIMER STAT 11/07/2024 3:52 [...] AIRWAY PLACEMENT Routine 10/27/2024 2:06 PM EDT NON-SPINNER CONTINUOUS CYTOLOGY REQUEST Routine 10/27/2024 2:03 PM EDT Ureteral mass GA CYSTOURETHROSCOPY WITH BIOPSY 10/27/2024 1:38 PM EDT Ureteral mass Special Needs sk CYSTOSCOPY URETEROSCOPY STENT PLACEMENT OR EXCHANGE 10/27/2024 1:38 PM EDT Ureteral mass Special Needs sk EC ECHOCARDIOGRAM COMPLETE W DOPPLER AND COLOR FLOW MAPPING Routine 10/20/2024 7:53 AM EDT SOB (shortness of breath) NON-SPINNER CONTINUOUS CYTOLOGY REQUEST Routine 10/19/2024 3:31 PM EDT [...] 9:31 AM EDT Coronary artery disease involving habematolel coronary artery of habematolel heart with angina pectoris from Last 3 Months Results * SCANNED RHYTHM STRIPS (12/09/2024 4:31 AM EDT) Only the most recent of2 resultswithin the time period is included. Anatomical Region Laterality Modality Other 12/09/2024 4:31 AM EDT us Unknown Provider IMG ECG ORDERABLES Final Result * (ABNORMAL) CBC WITH DIFF (12/08/2024 6:02 AM EDT) Only the most recent of6 resultswithin the time period is included. WBC 9.4 3.7 - 10.3 x10(3)/mcL 12/08/2024 6:48 AM EDT [facility] RBC 3.12(L) 4.60 - 6.10 x10(6)/mcL 12/08/2024 6:48 AM EDT [facility] Hgb 9.3(L) 13.7 - 17.5 g/dL 12/08/2024 6:48 AM EDT [facility] Hct 28.5(L) 40.0 - 51.0 % 12/08/2024 6:48 AM EDT [facility] MCV 91.3 80.0 - 100.0 fL [...] 12/08/2024 6:48 AM EDT [facility] Red [place]ow Percent 11.0 % 12/08/2024 6:48 AM EDT [facility] Eos Percent 1.9 % 12/08/2024 6:48 AM EDT [facility], [facility] Baso Percent 0.3 % 12/08/2024 6:48 AM EDT [facility], [facility] Neut # 6.7(H) 1.6 - 6.1 x10(3)/[facility] 12/08/2024 6:48 AM EDT [facility], [facility] Comment:Neutrophils equals s egs plus bands IMMGRAN# 0.1 0.0 - 0.1 x10(3)/mcL 12/08/2024 6:48 AM EDT [facility], [facility] Comment:Automated count of m etamyelocytes, myelocytes and promyelocytes. An absolute IG <0.1 is reported as 0.0. Lymph # 1.3 1.2 - 3.9 x10(3)/mcL 12/08/2024 6:48 AM EDT [facility], [facility] Red [place]ow # 1.0(H) 0.3 - 0.9 x10(3)/mcL 12/08/2024 6:48 AM EDT [facility], [facility] Eos# 0.2 0.0 - 0.5 x10(3)/mcL 12/08/2024 6:48 AM EDT [facility], [facility] Baso # 0.0 0.0 - 0.1 x10(3)/[facility] 12/08/2024 6:48 AM EDT [facility] Blood VENOUS BLOOD / Unknown Venipuncture / Unknown 12/08/2024 6:02 AM EDT 12/08/2024 6:35 AM EDT us Juana Shoemaker MD HEMATOLOGY ORDERABLES Final R esult [facility], [facility] [address] [facility] , [place] [address] * (ABNORMAL) BASIC METABOLIC PANEL (12/08/2024 6:02 AM EDT) Only the most recent of5 resultswithin the time period is included. Pathologist [facility] Sodium 137 136 - 145 mmol/L 12/08/2024 7:09 AM EDT [facility] Potassium 3.7 3.5 - 5.0 mmol/L 12/08/2024 7:09 AM EDT [facility], [facility] Chloride 104 98 - 107 mmol/L 12/08/2024 7:09 AM EDT [facility], [facility] Total CO2 21(L) 22 - 29 mmol/L 12/08/2024 7:09 AM EDT [facility] Anion Gap 12 7 - 16 mmol/L 12/08/2024 7:09 AM EDT [facility] Calcium 9.3 8.6 - 10.4 mg/dL 12/08/2024 7:09 AM EDT [facility], [facility] Glucose Lvl 105(H) 70 - 99 mg/dL 12/08/2024 7:09 AM EDT [facility], [facility] BUN 11 6 - 20 mg/dL 12/08/2024 7:09 AM EDT [facility], [facility] Creatinine 0.96 0.67 - 1.30 mg/dL 12/08/2024 7:09 AM EDT [facility], [facility] eGFR (CKD-EPIcr 2020) 96 >=60 mL/min/1.7 3 m2 12/08/2024 7:09 AM EDT [facility], [facility] Comment:Estimated GFR was ca lculated using the CKD-EPIcr (2020) equation refit without race. The equation is recommended by the National Kidney [employer] - [place] [employer] Nephrology Task Force. Blood VENOUS BLOOD / Unknown Venipuncture / Unknown 12/08/2024 6:02 AM EDT 12/08/2024 6:34 AM EDT us Juana Shoemaker MD CHEMISTRY ORDERABLES Final Re sult [facility] [address] [facility] , [place] [address] * ECG AND WAVEFORMS - TELEMETRY (12/07/2024 8:06 PM EDT) Only the most recent of14 resultswithin the time period is included. [facility] ECG INTERPRET NSR [facility] 12/07/2024 8:06 PM EDT Narrative [facility] - 12/07/2024 8:18 PM EDT ROUTINE (BS) GA 0.16 QRS 0.12 RR 0.65 QT 0.40 QTc 0.50 See Clinical Report link for waveform capture us Unknown Provider POINT OF CARE CARDIOLOGY Final Result [facility] [address] [place] [address] * FL CYSTOGRAM MINIMUM 3 VW (12/07/2024 [...] examination was performed by Rachna Eller, physician clinical project assistant, under the supervision of Dr. Singh. A total fluoroscopy time of 1.2 minutes was used. 119 fluoroscopic spot images were saved to PACS. FINDINGS: Via Bradford catheter, 175 mL of water-soluble contrast was instilled retrograde into the urinary bladder. Imaging was performed in multiple projections. Bottom Bleacher radiographs show a surgical drain over the [...] The examination was performed by Rachna Eller,physician clinical project assistant, under the supervision of Dr. Singh. A total fluoroscopy timeof 1.2 minutes was used. 119 fluoroscopic spot images were saved to PACS. FINDINGS: Via Bradford catheter, 175 mL of water-soluble contrast wasinstilled retrograde into the urinary bladder. Imaging was performed in multiple projections. Bottom Bleacher radiographs show a surgical drain over the [...] IMG FLUOROSCOPY ORDERABLE S Final Result * (ABNORMAL) CBC (12/07/2024 5:33 AM EDT) Only the most recent of3 resultswithin the time period is included. [facility] WBC 10.8(H) 3.7 - 10.3 [...] al Result [facility] [address] [facility] , [place] [address] * (ABNORMAL) C DIFF INTERPRETATION (12/06/2024 9:57 AM EDT) [facility] C Diff Toxin DNA Positive(A) Negative 12/06/2024 1:18 PM EDT [facility] NAP1 Presumptive Neg Presumptive Neg 12/06/2024 1:18 PM EDT [facility] GDH Antigen Positive(A) Negative 12/06/2024 1:18 PM EDT [facility] C diff toxin A/B Positive(A) Negative 12/06/2024 1:18 PM EDT [facility] Stool RECTUM STRUCTURE / Unknown Collection / Unknown 12/06/2024 9:57 AM EDT 12/06/2024 10:05 AM EDT Narrative [facility] [employer], [facility] - 12/06/2024 1:18 PM EDT Toxin producing C diff target DNA sequences detected. Toxins A/B positive. CDI likely. Consider initiation of severity-based CDI therapy according to CDI management guidance. Brody LINDQUIST MICROBIOLOGY - GENERAL ORDERABLE S Final Result Performing Organization Address [facility] de Phone Number [facility] [employer], [address] , [place] [address] * C DIFF GDH AG AND TOXIN A+B (12/06/2024 9:57 AM EDT) Stool RECTUM STRUCTURE / Unknown Collection / Unknown 12/06/2024 9:57 AM EDT 12/06/2024 10:05 AM EDT Brody LINDQUIST MICROBIOLOGY - GENERAL ORDERABLE S Final Result Performing Organization Address City/[facility] Co de Phone Number [facility], [address] , [place] [address] * C DIFF TOXIN DNA (12/06/2024 9:57 AM EDT) Stool RECTUM STRUCTURE / Unknown Collection / Unknown 12/06/2024 9:57 AM EDT 12/06/2024 10:05 AM EDT Brody LINDQUIST MICROBIOLOGY - GENERAL ORDERABLE S Final Result Performing Organization Address [facility] Co de Phone Number [facility] [employer], [address] , [place] [address] * (ABNORMAL) HEMOGLOBIN AND HEMATOCRIT (12/05/2024 12:22 PM EDT) Only the most recent of7 resultswithin the time period is included. Pathologist [facility] Hgb 9.4(L) 13.7 - 17.5 g/dL 12/05/2024 1:04 PM EDT [facility] Hct 27.8(L) 40.0 - 51.0 % 12/05/2024 1:04 PM EDT [facility] Blood VENOUS BLOOD / Unknown Venipuncture / Unknown 12/05/2024 12:22 PM EDT 12/05/2024 12:27 PM EDT Juana Shoemaker MD HEMATOLOGY ORDERABLES Final R esult [facility] [employer] [facility], [facility] [address] [facility] , [place] [address] * TRANSFUSE RED BLOOD CELLS (12/04/2024 3:25 PM EDT) Only the most recent of3 resultswithin the time period is included. Peace Rea APRN NURSING TREATMENT ORDERABLES - BLOOD ADMIN Edited Result - Final * (ABNORMAL) IRON+TIBC (12/04/2024 5:52 AM EDT) Pathologist [facility] Iron 27(L) 50 - 170 mcg/dL 12/05/2024 12:26 PM EDT [facility] Transferrin 160(L) 200 - 360 mg/dL 12/05/2024 12:26 PM EDT [facility] Transferrin Saturation 12(L) 20 - 50 % 12/05/2024 12:26 PM EDT [facility] TIBC 224(L) 250 - 400 mcg/dL 12/05/2024 12:26 PM EDT [facility] [facility] Blood VENOUS BLOOD / Unknown Venipuncture / Unknown 12/04/2024 5:52 AM EDT 12/04/2024 6:01 AM EDT Juana Shoemaker MD CHEMISTRY ORDERABLES Final Re sult Performing Organization Address [facility]/ZIP Co de Phone Number [facility] [employer] [address] , [place] [address] * (ABNORMAL) TROPONIN-T HIGH SENSITIVITY 6 HR (12/03/2024 3:40 AM EDT) bb-eWrhqftlk-N 6HR 37(H) <22 ng/L 12/03/2024 4:43 AM EDT [facility] [employer] hs-cTnT 6Hr Delta from Baseline 11 <12 ng/L 12/03/2024 4:43 AM EDT [facility] [employer] Blood VENOUS BLOOD / Unknown Venipuncture / Unknown 12/03/2024 3:40 AM EDT 12/03/2024 4:11 AM EDT Narrative [employer] - 12/03/2024 4:43 AM EDT Ingestion of josé miguel doses of biotin (>5 mg/day) taken within 8 hours of drawing blood sample can interfere with this immunoassay test. Rahcna Wood APRN CHEMISTRY ORDERABLES Fin al Result Performing Organization Address [facility] Co de Phone Number [facility] [employer] [address] , [place] [address] * (ABNORMAL) TROPONIN-T HIGH SENSITIVITY 2HR (12/02/2024 10:14 PM EDT) Only the most recent of2 resultswithin the time period is included. gx-gXerexgtc-F 2HR 33(H) <22 ng/L 12/02/2024 11:02 PM EDT [facility] [employer] [employer] hs-cTnT 2Hr Delta from Baseline 7(H) <4 ng/L 12/02/2024 11:02 PM EDT [facility] [employer] Blood VENOUS BLOOD / Unknown Venipuncture / Unknown 12/02/2024 10:14 PM EDT 12/02/2024 10:33 PM EDT Narrative [employer] - 12/02/2024 11:02 PM EDT Ingestion of josé miguel doses of biotin (>5 mg/day) taken within 8 hours of drawing blood sample can interfere with this immunoassay test. us Rachna Matt Wood FLOOR COVERINGS SALESPERSON CHEMISTRY ORDERABLES Fin al Result [facility] [address] [facility], [place] [address] * CT ABDOMEN PELVIS W CONTRAST (12/02/2024 [...] amount ofretroperitoneal fluid/hemorrhage noted. Sadi Haney MD IM CT ORDERABLES Final R esult * (ABNORMAL) TROPONIN-T HIGH SENSITIVITY BASELINE W/ REFLEX (12/02/2024 7:34 PM EDT) Only the most recent of3 resultswithin the time period is included. qh-dLvregghd-R 26(H) <22 ng/L 12/02/2024 8:05 PM EDT [facility] [employer] Blood VENOUS BLOOD / Unknown Venipuncture / Unknown 12/02/2024 7:34 PM EDT 12/02/2024 7:37 PM EDT Narrative [facility] [employer] - 12/02/2024 8:05 PM EDT Ingestion of josé miguel doses of biotin (>5 mg/day) taken within 8 hours of drawing blood sample can interfere with this immunoassay test. us Rachna Wood FLOOR COVERINGS SALESPERSON CHEMISTRY ORDERABLES Fin al Result [facility] [address] [facility], [place] [address] * EK EKG 12 LEAD (12/02/2024 7:13 PM EDT) Only the most recent of3 resultswithin the time period is included. Anatomical Region Laterality Modality Electrocardiogra phy 12/02/2024 7:21 PM EDT Impressions 12/03/2024 11:[address] [facility] Test Date: 2024-12-02 Pat Name: ALEX PUGH Department: DEPID Room: [facility] Gender: Male Investigative Assistant: As : 1975 Requested By: RACHNA Gutierrez Order Number: [id number] Reading MD: Edelmira Ramsey DO Measurements Intervals [place] Rate: 123 P: 131 GA: 167 QRS: 1 QRSD: 90 T: 72 QT: 319 QTc: 457 Interpretive Statements SINUS TACHYCARDIA NONSPECIFIC ST & T-WAVE ABNORMALITY ABNORMAL RHYTHM ECG Electronically Signed On 12-03-2024 11:25:42 EDT by Edelmira Ramsey DO Narrative Procedure Note Edelmira Ramsey DO - 12/03/[address] [facility] Test Date: 2024-12-02 Pat Name: ALEX PUGH Department: DEPID Room: 7308 Gender: Male Investigative Assistant: As : 1975 Requested By: RACHNA Gutiererz Order Number: [id number] Reading MD: Edelmira Ramsey DO Measurements Intervals [place] Rate: 123 P: 131 GA: 167 QRS: 1 QRSD: 90 T: 72 QT: 319 QTc: 457 Interpretive Statements SINUS TACHYCARDIA NONSPECIFIC ST & T-WAVE ABNORMALITY ABNORMAL RHYTHM ECG Electronically Signed On 12-03-2024 11:25:42 EDT by Edelmira Ramsey DO Rachna Gutierrez Nina FLOOR COVERINGS SALESPERSON IMG ECG ORDERABLES Final Result * REPEAT LACTIC ACID (12/02/2024 6:17 PM EDT) Only the most recent of5 resultswithin the time period is included. Lactic Acid 1.6 0.5 - 1.9 mmol/L 12/02/2024 6:44 PM EDT [facility] [employer] Blood VENOUS BLOOD / Unknown Venipuncture / Unknown 12/02/2024 6:17 PM EDT 12/02/2024 6:25 PM EDT Meng Chen MD CHEMISTRY ORDERABLES Final Resu lt Performing Organization Address [facility] Co de Phone Number [facility] [employer] [address] , [place] [address] * BLOOD CULTURE (NO STAIN) (12/02/2024 1:42 PM EDT) Only the most recent of2 resultswithin the time period is included. Culture Result No Growth at 120 hours. BLOOD CULTURE (NO STAIN) 12/07/2024 3:00 PM EDT [facility] [facility] Blood VENOUS BLOOD / Unknown Venipuncture / Unknown 12/02/2024 1:42 PM EDT 12/02/2024 1:53 PM EDT Meng Chen MD MICROBIOLOGY - GENERAL ORDERABL ES Final Result Performing Organization Address City/[facility] Co de Phone Number [facility] [employer] [address] , [place] [address] * (ABNORMAL) LACTIC ACID (12/02/2024 1:42 PM EDT) Only the most recent of2 resultswithin the time period is included. Lactic Acid 3.2(H) 0.5 - 1.9 mmol/L 12/02/2024 2:16 PM EDT [facility] [employer] VENOUS BLOOD / Unknown Venipuncture / Unknown 12/02/2024 1:42 PM EDT 12/02/2024 1:52 PM EDT us Meng Chen MD CHEMISTRY ORDERABLES Final Resu lt [facility] [address] [facility] [facility] , [place] [address] * (ABNORMAL) URINALYSIS REFLEX (12/02/2024 10:53 AM EDT) UA Color Red 12/02/2024 11:12 AM EDT [facility] UA Appear Cloudy(A) Clear 12/02/2024 11:12 AM EDT [facility] UA Glucose Negative Negative mg/dL 12/02/2024 11:12 AM EDT [facility] UA Ketones Negative Negative mg/dL 12/02/2024 11:12 AM EDT [facility] UA Blood 3+ (1.0 mg/dL)(A) Negative 12/02/2024 11:12 AM EDT [facility] UA pH 6.0 5.0 - 8.0 pH 12/02/2024 11:12 AM EDT [facility] UA Protein 1+ (30 mg/dL)(A) Negative mg/dL 12/02/2024 11:12 AM EDT [facility] UA Urobilinogen Normal <=1 mg/dL 11:12 AM EDT [facility] UA Bili Negative Negative 12/02/2024 11:12 AM EDT [facility] UA Nitrite Negative Negative 12/02/2024 11:12 AM [...] 12/02/2024 11:12 AM EDT [facility] UA RBC >182(H) 0 - 3 /HPF 12/02/2024 11:12 AM EDT [facility] UA Squam Epi 1+ /LPF 12/02/2024 11:12 AM EDT [facility] UA Bacteria 1+(A) Negative /HPF 12/02/2024 11:12 AM EDT [facility] Urine URINARY BLADDER STRUCTURE / Unknown 12/02/2024 10:53 AM EDT 12/02/2024 10:59 AM EDT Mariah Kessler APRN URINE ORDERABLES Fin al Result [facility] [employer], [address] , [address] [place] [id number] * EXTRA SWENSON URINE CX (12/02/2024 10:53 AM EDT) Urine URINE SPECIMEN OBTAINED VIA INDWELLING URINARY CATHETER / Unknown 12/02/2024 10:53 AM EDT 12/02/2024 10:59 AM EDT Mariah Kessler APRN MICROBIOLOGY - GENER AL ORDERABLES Final Result Performing Organization Address [facility] Co de Phone Number [facility] [address] [place] [address] * URINE CULTURE (NO STAIN) (12/02/2024 10:53 AM EDT) Culture No growth at 30 hours. 12/04/2024 6:38 AM EDT [facility] [employer], [employer] Urine URINARY BLADDER STRUCTURE / Unknown 12/02/2024 10:53 AM EDT 12/02/2024 11:12 AM EDT Mariah Kesselr APRN MICROBIOLOGY - GENER AL ORDERABLES Final Result Performing Organization Address City/[facility]/ZIP Co de Phone Number [facility] [employer], [address] , [place] [address] * XR CHEST AP PORTABLE [...] of the ordering clinician. Meng Chen MD [facility] DIAGNOSTIC IMAGING ORDERABL ES Final Result * (ABNORMAL) PROCALCITONIN (12/02/2024 5:05 AM EDT) Procalcitonin 0.62(H) <=0.49 ng/mL 12/02/2024 5:52 AM EDT [employer] Blood VENOUS BLOOD / Unknown Venipuncture / Unknown 12/02/2024 5:05 AM EDT 12/02/2024 5:11 AM EDT Narrative [facility] [employer] [facility] - 12/02/2024 5:52 AM EDT Procalcitonin <0.50 [...] to severe sepsis and/or septic shock. us Mariah Kessler APRN CHEMISTRY ORDERABLES Final Result [facility] [employer] [address] [place] [address], [place] [address] * CREATININE BODY FLUID (12/02/2024 4:12 AM EDT) Creatinine BF 1.15 0.67 - 1.30 mg/dL 12/02/2024 5:03 AM EDT [facility] [employer] MODNICKOLAS Body Fluid ABDOMEN / Unknown Collection / Unknown 12/02/2024 4:12 AM EDT 12/02/2024 4:29 AM EDT Meghan [employer] [facility] - 12/02/2024 5:03 AM EDT A reference interval for this test has not been established for body fluid specimens. The reference range listed reflects normal concentration of this analyte in blood. us Sadi Haney MD BODY FLUIDS AND STOOLS OR DERABLES Final Result Performing Organization Address City/[facility]/ZIP Co de Phone Number [facility] [employer] [address] [facility], [place] [address] * (ABNORMAL) GLUCOSE METER POC (12/02/2024 2:58 AM EDT) Glucose Meter POC 148(H) 70 - 100 mg/dL 12/02/2024 3:00 AM EDT [facility] Sample Type Capillary 12/02/2024 3:00 AM EDT [facility] Patient Status Non-Critical Patient 12/02/2024 3:00 AM EDT [facility] Blood BLOOD SPECIMEN / Unknown 12/02/2024 2:58 AM EDT 12/02/2024 3:00 AM EDT Sadi Haney MD POINT OF CARE TEST ORDERA BLES Final Result Performing Organization Address [facility] Co de Phone Number [address] [address] * PATHOLOGY TISSUE REQUEST (12/01/2024 3:36 PM EDT) Only the most recent of2 resultswithin the time period is included. 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 - Resection margins negative for carcinoma - Kidney and bladder cuff with chronic inflammation, negative for carcinoma. - Adrenal gland negative for carcinoma. - See synoptic report for details. 12/05/2024 4:20 PM EDT [facility] at 1620 EDT GROSS DESCRIPTION A. [...] 0.5 to 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 Rotary Machine Operator sections are submitted as follows: A1-A3 = entire mass at UPJ to include adjacent uninvolved proximal ureter A4 = remaining proximal ureter A5-A6 = in store representative dilated calyces A7-A8 equal all distal ureter with perpendicular bladder margin A9 = vascular margins from kidney A10 = all areas suggestive of adrenal parenchyma A11 = 1 bisected lymph node candidate A12 = 1 trisected lymph node candidate A13-A14 = largest lymph node candidate, trisected RIK Stover PA (ASCP) 12/05/2024 4:20 PM EDT [facility] MICROSCOPIC DESCRIPTION The microscopic examination may have been rendered in whole, or in part, by analyzing high-resolution digital images (whole slide images) on the [employer] Digital Pathology platform validated at [facility]. 12/05/2024 4:20 PM EDT [facility] BEST TISSUE BLOCK FOR ANCILLARY STUDIES A3 12/05/2024 4:20 PM EDT [facility] SYNOPTIC REPORT CHECKLIST URETER, RENAL [...] limited to this pathology report. 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 pN Category: pN not assigned (no nodes submitted or found) ADDITIONAL FINDINGS Pathologic Findings in Ipsilateral Nonneoplastic Renal Tissue: None identified 12/05/2024 4:20 PM EDT [facility] EMBEDDED IMAGES 12/05/2024 4:20 PM EDT [facility] Tissue LEFT KIDNEY STRUCTURE / Unknown 12/01/2024 3:36 PM EDT 12/01/2024 4:31 PM EDT Sadi Haney MD PATHOLOGY ORDERABLES Nadiya magdalena Result [facility] [address] [place] [address] [address] * INTRAOP AIRWAY PLACEMENT (12/01/2024 11:33 AM EDT) Narrative [facility] - 12/01/2024 11:33 AM EDT Desiree [...] 1 Attempt 1 by: Travon Kerr Title: STOCKROOM ASSOCIATE us Jorge Alberto Hoang MD [place] ANESTHESIA Edited Resul t - Final [facility] [address] [place] [address] * ANE US GUIDANCE (12/01/2024 10:32 AM EDT) Narrative [facility] - 12/01/2024 10:32 AM EDT Jorge [...] Alberto Hoang MD ANESTHESIA ORDERABLES Final Result Performing Organization Address City/[facility] Co de Phone Number [facility] [address] [place] [phone] * US ANES GUIDANCE FOR POC (12/01/2024 [...] BB HISTORY CHECK (12/01/2024 9:22 AM EDT) Only the most recent of2 resultswithin the time period is included. BB HISTORY CHECK (1) Previous History OK 12/01/2024 9:30 AM EDT [facility] Blood VENOUS BLOOD / Unknown Venipuncture / Unknown 12/01/2024 9:22 AM EDT 12/01/2024 9:26 AM EDT us Sadi Haney MD BLOOD BANK ORDERABLES Fin al Result Performing Organization Address City/[facility]/ZIP Co de Phone Number [facility] [address] [place] [address] * ABORH (12/01/2024 9:22 AM EDT) Only the most recent of2 resultswithin the time period is included. ABORH Int B POS 12/01/2024 9:5 7 AM EDT [facility] Blood VENOUS BLOOD / Unknown Venipuncture / Unknown 12/01/2024 9:22 AM EDT 12/01/2024 9:26 AM EDT us Sadi Haney MD BLOOD BANK ORDERABLES Fin al Result Performing Organization Address City/[facility]/ZIP Co de Phone Number [facility] BLOOD [facility] [address] [place] [address] * RED BLOOD CELLS REQUEST (11/23/2024 2:10 PM EDT) Only the most recent of2 resultswithin the time period is included. [facility] Product Code [id number] [facility] BLOOD BANK Unit Number [id number] [facility] BLOOD [facility] Crossmatch Interp Compatible [facility] B[facility]OD BANK Dispense Status TRANSFUSED [facility] BLOOD [facility] Blood Expiration Date [id number] [facility] BLOOD BANK ISBT 128 Type 7300 [facility] BLOOD B[facility] Blood Unit Volume 300 ml [facility] BLOOD BANK BA CODING SYSTEM [id number] [facility] BLOOD [facility] Blood Type (Unit) B POS [facility] BLOOD BANK Blood 11/23/2024 2:10 PM EDT 11/23/2024 2:17 PM EDT [employer] COVER[employer] SALESPERSON BLOOD PRODUCT ORDERS Nadiya l Result Performing Organization Address [facility] [place] [address] * SURGERY DATE (11/23/2024 2:10 PM EDT) Pathologist [facility] Surgery Date (1) Complete 11/23/2024 2:31 PM EDT [facility] BLOOD [facility] Blood VENOUS BLOOD / Unknown Venipuncture / Unknown 11/23/2024 2:10 PM EDT 11/23/2024 2:17 PM EDT Susan Grossman APRN BLOOD BANK ORDERABLES Fi nal Result Performing Organization Address City/[facility]/[place] [address] * ANTIBODY SCREEN IGG (11/23/2024 2:10 PM EDT) ABSC IgG Int Negative 11/23/2024 3:13 PM EDT [facility] BANK Blood VENOUS BLOOD / Unknown Venipuncture / Unknown 11/23/2024 2:10 PM EDT 11/23/2024 2:17 PM EDT us Susan Grossman APRN BLOOD BANK ORDERABLES Fi nal Result [facility] BANK [address] [place] [address] * SCANNED EKG (11/07/2024 10:27 AM EDT) [...] please contactthe office of the ordering clinician. Garo Ndiaye MD IMG DIAGNOSTIC IMAGING ORDERAB LES Final Result * D-DIMER (11/07/2024 3:52 AM EDT) D-Dimer 419 <=500 ng/mL FEU 11/07/2024 4:26 AM EDT [facility] Comment:This is an automated latex enhanced [...] AM EDT 11/07/2024 3:54 AM EDT Narrative [facility] - 11/07/2024 4:26 AM EDT For patients between the ages of 50 - 75, an age-adjusted D-Dimer cut-off in combination with non-high clinical probability may be considered for the exclusion of venous thromboembolism (calculation = age x 10). CARLOS ENRIQUE Barger, et al. [employer] Med. 2017;166(5):361-363 ANAID Contreras, et al. [employer]. 2015;(163):701-711. Elizabeth M, et al. BERTIN. 2014;(11):6636-2723. Garo Ndiaye MD HEMATOLOGY ORDERABLES Final Re sult [facility] [address] [place] [address] * NT PROBNP (11/07/2024 3:52 AM EDT) Pathologist [facility] NT Pro-BNP 53 <=138 pg/mL 11/07/2024 4:13 AM EDT [facility] Blood VENOUS BLOOD / Unknown Venipuncture / Unknown 11/07/2024 3:52 AM EDT 11/07/2024 3:55 AM EDT Narrative [facility] - 11/07/2024 4:13 AM EDT An NT pro-BNP level less than 300 pg/mL in any patient, regardless of age, effectively rules out acute CHF with a 99% negative predictive value. Ingestion of josé miguel doses of biotin (>5 mg/day) taken within 8 hours of drawing blood sample can interfere with this immunoassay test. us Garo Ndiaye MD CHEMISTRY ORDERABLES Final Res ult [facility] [address] [place] [address] * (ABNORMAL) COMPREHENSIVE METABOLIC PANEL (11/07/2024 3:52 AM EDT) [facility] Sodium 136 136 - 145 mmol/L 11/07/2024 4:13 AM EDT [facility] Potassium 4.5 3.5 - 5.0 mmol/L 11/07/2024 4:13 AM EDT [facility] Chloride 104 98 - 107 mmol/L 11/07/2024 4:13 AM EDT [facility] Total CO2 21(L) 22 - 29 mmol/L 11/07/2024 4:13 AM EDT [facility] Anion Gap 11 7 - 16 mmol/L 11/07/2024 4:13 AM EDT [facility] Calcium 9.5 8.6 - 10.4 mg/dL 11/07/2024 4:13 AM EDT [facility] Glucose Lvl 104(H) 70 - 99 mg/dL 11/07/2024 4:13 AM EDT [facility] BUN 18 6 - 20 mg/dL 11/07/2024 4:13 AM EDT [facility] Creatinine 1.24 0.67 - 1.30 mg/dL 11/07/2024 4:13 AM EDT [facility] Albumin 4.4 3.5 - 5.2 gm/dL 11/07/2024 4:13 AM EDT [facility] Total Protein 7.1 6.4 - 8.3 gm/dL 11/07/2024 4:13 AM EDT [facility] Bili Total 0.3 0.2 - 1.4 mg/dL 11/07/2024 4:13 AM EDT [facility] ALT 20 <=41 U/L 11/07/2024 4:13 AM EDT [facility] AST 20 <=40 U/L 11/07/2024 4:13 AM EDT [facility] Alk Phos 127 40 - 129 U/L 11/07/2024 4:13 AM EDT [facility] eGFR (CKD-EPIcr 2020) 71 >=60 mL/min/1.7 3 m2 11/07/2024 4:13 AM EDT [facility] Comment:Estimated GFR was ca lculated using the CKD-EPIcr (2020) equation refit without race. The equation is recommended by the National Kidney Foundation - [place] [employer] of Nephrology Task Force. Blood VENOUS BLOOD / Unknown Venipuncture / Unknown 11/07/2024 3:52 AM EDT 11/07/2024 3:55 AM EDT us Garo Ndiaye MD CHEMISTRY ORDERABLES Final Res ult [facility] [address] [place] [address] * INTRAOP AIRWAY PLACEMENT (10/27/2024 2:06 PM EDT) Narrative [facility] - 10/27/2024 2:06 PM EDT Phuong Clark CRNA 10/27/2024 2:07 PM Intraop Airway Placement: Date/Time: 10/27/2024 2:06 PM Induction type: IV Mask size: Standard adult Pre-Oxygenation: BMI guided pre-O2 Mask ventilation: Not attempted Airway type: LMA Device size: 5 Secured by: Tape Placement verified: End tidal CO2 and Symmetric chest wall motion Condition: Atraumatic and Unchanged Insertion attempts: 1 Title: STOCKROOM ASSOCIATE us Sherita Moya MD GA ANESTHESIA Final R esult [facility] [address] [place] [address] * NON-SPINNER CONTINUOUS CYTOLOGY REQUEST (10/27/2024 2:03 PM EDT) Only the most recent of2 resultswithin the time period is included. CASE REPORT Non-gynecologic Cytology Case: [id number] Authorizing Provider: Patricia Ellison MD Collected: 10/27/2024 1403 Ordering Location: [facility] Received: 10/27/2024 1415 Pathologist: Jerome Hickman MD Specimen: Urethra, urine cytology 10/30/2024 1:34 PM EDT [facility] NON-SPINNER CONTINUOUS CYTOLOGY FINAL DIAGNOSIS Catheterized urine, left ureter: - Negative for high-grade urothelial carcinoma. 10/30/2024 1:34 PM EDT [facility] at 1334 EDT EMBEDDED IMAGES 10/30/2024 1:34 PM EDT [facility] MICROSCOPIC DESCRIPTION Microscopic examination is performed and the findings corroborate the diagnosis. 10/30/2024 1:34 PM EDT [facility] Gross Description Urine, Rec'd 10ml of bloody fluid. (TP) 10/30/2024 1:34 PM EDT [facility] Urine URETHRAL STRUCTURE / Unknown 10/27/2024 2:03 PM EDT 10/27/2024 2:15 PM EDT us Patricia Ellison MD CYTOLOGY ORDERABLES Final Re sult [facility] [address] [place] [id number] * EC ECHOCARDIOGRAM COMPLETE W DOPPLER AND [...] POC Yellow Color 10/19/2024 2:31 PM EDT [facility]A Appear POC Clear Clear 10/19/2024 2:31 PM EDT [facility]A Gluc POC Negative Negative mg/dL 10/19/2024 2:[address] [facility] Bili POC Negative Negative 10/19/2024 2:31 PM EDT [facility] UA Ketones POC Negative Negative mg/dL 10/19/2024 2:31 PM EDT [facility] UA SG POC 1.010 1.001 - 1.035 no units 10/19/2024 2:[address]A Blood POC Trace-Lysed( A) Negative 10/19/2024 2:31 PM EDT [facility] UA pH POC 5.5 5.0 - 8.0 pH 10/19/2024 2:31 PM EDT [facility]A Protein POC Negative Negative mg/dL 10/19/2024 2:31 PM EDT [facility] Urobilinogen POC 0.2 0.2, 1.0 10/19/2024 2:31 PM EDT [facility] Nitrite POC Negative Negative 10/19/2024 2:31 PM EDT [facility] Leuk Est POC Negative Negative 2:31 PM EDT [facility] ARIEL TAVAREZ Urine STRUCTURE OF URINARY TRACT PROPER / Unknown 10/19/2024 2:29 PM EDT 10/19/2024 2:31 PM EDT us Patricia Ellison MD POINT OF CARE TEST ORDERABLE S Final Result [facility] [address] [place] [address] * CT ABDOMEN PELVIS WO ORAL WITH [...] (FAST), 10/19/2024 10:40 AM CLINICAL HISTORY: N13.30-Unspecified [id number]. COMPARISON: None. PROCEDURE COMMENTS: Multi-detector CT scanning [...] (FAST), 10/19/2024 10:40 AM CLINICAL HISTORY: N13.30-Unspecified [id number]. COMPARISON: None. PROCEDURE COMMENTS: Multi-detector CT scanning [...] - 1.3 mg/dL 10/19/2024 10:39 AM EDT [facility] Blood BLOOD SPECIMEN / Unknown 10/19/2024 10:35 AM EDT 10/19/2024 10:39 AM EDT Logan Kenny MD POINT OF CARE TEST ORDERABLE [place] [address], [facility] [phone] * [facility] LOWER EXTREMITY BILATERAL MAPPING (10/19/2024 [...] in zones 5through 8. Logan Kenny MD [facility] VASCULAR ORDERABLES Nadiya l Result * OK US CAROTID DUPLEX BILATERAL (10/19/2024 9:20 AM [...] the bilateral vertebral arteries. 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 PROCEDURE COMMENTS: Multi-detector CT of [...] disease of nativecoronary artery with unspecified angina [id number] COMPARISON: None. PROCEDURE COMMENTS: Multi-detector CT of [...] from Last 3 Months Additional Health Concerns Infection Onset Date Last Indicated C-diff 12/06/2024 12/06/2024 Insurance JOSE PPO JOSE PPO Advance Directives For more information, please contact: [phone] * Full Code (Latest Code Status on File) Date Activated Date Inactivated Comments 12/01/2024 6:51 PM 12/08/2024 3:55 PM Care Teams Cocoa Butter Filter Operator Relationship Specialty Start Date End Date Reyna Perez APRN [address] [facility] [address] [place] [phone] PCP - General Nurse Practitioner 10/27/24
--- OUTSIDE RECORDS SUMMARY | 2024-12-13 08:01 | XMS_ITS | Encounter Summary ---
Author Organization [facility] [place] [address] Care Team Providers Care Dry Starch Operator Name Role Phone Unavailable Primary Care [...] EDT Office Visit [facility] [address] [place] [address] Dorinda Rodriguez PA-C [address] [place] [address] 01/23/2025 9:00 AM EDT Office Visit [facility] Cardiac Surgeons [address] [place] [address] Logan Kenny MD [address] [place] [address] [place] [address] documented as of this encounter Visit Diagnoses Not on filedocumented in this encounter
--- OUTSIDE RECORDS SUMMARY | 2024-12-13 08:01 | XMS_ITS | Encounter Summary ---
Author Organization [facility] [place] [address] Care Team Providers Care Yard Jockey Name Role Phone Reyna Perez APRN Primary Care Provider [phone] Encounter Details Date Type Department Care Team [...] EDT Office Visit [facility] [address] [place] [address] Dorinda Rodriguez, PA-C [address] [place] [address] 01/23/2025 9:00 AM EDT Office Visit [facility] Cardiac Surgeons [address] [place] [address] Logan Kenny MD [address] [place], [place] [address] [address] documented as of this encounter Visit Diagnoses Not on filedocumented in this encounter Care Teams Yard Jockey Relationship Specialty Start Date End Date Reyna Perez APRN [address] [facility] [address] [place] [phone] PCP - General Nurse Practitioner 10/27/24 documented as of this encounter
== END 2024-12-11 23:59 | disposition home or self-care (01) ==
LOC: LAB.DROPOF 12-13 07:55
PROVIDERS: PCP Nurse Practitioner; Visit Provider Nurse Practitioner
DX: A04.72 Enterocolitis due to Clostridium difficile, not specified as recurrent (principal); Z90.5 Acquired absence of kidney
CPT/HCPCS: 80053; 85025

== ENCOUNTER 2024-12-28 03:44 | Observation (INO) | payer BC, SELFPAY ==
--- OUTSIDE RECORDS SUMMARY | 2024-10-24 09:00 | XMS_ITS | Encounter Summary ---
Author Organization [place] [address] Care Team Providers Care Bailing Machine Operator Name Role Phone Reyna Perez APRN Primary Care Provider [phone] Encounter Details Date Type Department Care Team (Late st Contact Info) Description 10/24/2024 9:00 AM EDT Telemedicine [facility] Cardiac Surgeons [place] [address] [place] [address] [address] [place] [address] Logan Kenny MD [address] [place], [place] [phone] ASHD (arteriosclerotic heart disease) (Primary Dx); Ureteral [...] Description 01/23/2025 9:00 AM EDT Office Visit [facility] Cardiac Surgeons [place] [address] [place] [address] Drive [address] [place] [address] Logan Kenny MD [address] [place] [address] [place] [address] documented as of this encounter Visit Diagnoses Diagnosis ASHD (arteriosclerotic heart disease)- Primary Coronary atherosclerosis of unspecified type of vessel, samish or graft Ureteral mass Unspecified disorder of kidney and ureter documented in this encounter Care Teams Bailing Machine Operator Relationship Specialty Start Date End Date Reyna Perez APRN 12[address] [facility] [address] [place] [address] PCP - General Nurse Practitioner 10/27/24 documented as of this encounter
--- OUTSIDE RECORDS SUMMARY | 2024-11-07 03:27 | XMS_ITS | Encounter Summary ---
Author Organization [facility] [place] [address] Care Team Providers Care Engraver Hand Soft Metals Name Role Phone Reyna Perez DEMETRIUS Primary Care Provider [phone] Reason for Visit * Reason Comments Shortness of Breath SOB for a few hours now, heart sx needed and kidney sx needed. No ROVING CHANGER meds, pt is not in distress at triage, O2 is 100% RA. A&Ox4. with pt Encounter Details Date Type Department Care Team (Late st Contact Info) Description 11/07/2024 3:27 AM EDT - 11/07/2024 7:08 AM EDT Emergency [facility] Emergency [address]. [facility] [place] [address] Mona Ndiaye MD [facility] EMERGENCY DEPT [address] [place] [address] Dyspnea, unspecified type (Primary Dx) [...] 3:23 AM EDT Tommy Lugo RN * [place] Suicide Severity Rating Scale (Q shift for [...] Follow-up with your primary care doctor and dehorner. documented in this encounter Medications at Time [...] sx needed and kidney sx needed. No ROVING CHANGER meds, pt is not in distress at [...] disease) Heartburn Hyperlipidemia Hypertension Kidney mass left [place] (myocardial infarction) (HCC) 09/17/2024 Motion sickness Social [...] CYSTOSCOPY 10/27/2024 Surgeon: Patricia Ellison MD; Location: [facility] MAIN OR; Service: Urology Review of Systems [...] 72.7 Imm Gran% 0.7 Lymph Percent 16.9 Ward Percent 7.8 Eos Percent 1.4 Baso Percent 0.5 Neut # 9.5 (*) IMMGRAN# 0.1 Lymph # 2.2 Ward # 1.0 (*) Eos# 0.2 Baso # 0.1 COMPREHENSIVE METABOLIC PANEL - Abnormal Sodium 136 Potassium 4.5 Chloride 104 Total CO2 21 (*) Anion Gap 11 Calcium 9.5 Glucose Lvl 104 (*) BUN 18 Creatinine 1.24 Albumin 4.4 Total Protein 7.1 Bili Total 0.3 ALT 20 AST 20 Alk Phos 127 eGFR (CKD-EPIcr 2020) 71 TROPONIN-T HIGH SENSITIVITY BASELINE W/ REFLEX - Normal sa-fBxmzghho-N 6 Narrative: Ingestion of josé miguel doses [...] 10). CARLOS ENRIQUE Barger, et al. Ashley Trauma Coordinator Med. 2017;166(5):361-363 ANAID Contreras, et al. Ashley Trauma Coordinator Med. 2015;(163):701-711. Matt Johnson, et al. BERTIN. 2014;(11):0464-4040. TROPONIN-T HIGH SENSITIVITY 2HR XR CHEST PA AND LATERAL Final Result No acute finding. - Note: Radiology results need to be interpreted within a comprehensive clinical context. If you have questions about the radiology report, please contact the office of the ordering clinician. EK EKG 12 LEAD ED Interpretation Twelve-lead EKG interpreted by me: Sinus rhythm rate 69, [place] 151, QRS 94, QTc 408. No acute [...] AM EDT Office Visit [facility] Cardiac Surgeons [place] [address] [place] [address] [address] [place] [address] Logan Kenny MD [address] [place] [address] [place] [address] documented as of this encounter Procedures [...] 11/07/2024 4:26 AM EDT [facility] Comment:This is an automated latex enhanced [...] 3:54 AM EDT Narrative [facility] - 11/07/2024 4:26 AM EDT For patients between the ages of 50 - 75, an age-adjusted D-Dimer cut-off in combination with non-high clinical probability may be considered for the exclusion of venous thromboembolism (calculation = age x 10). CARLOS ENRIQUE Barger, et al. Ashley Trauma Coordinator Med. 2017;166(5):361-363 ANAID Contreras, et al. Ashley Trauma Coordinator Med. 2015;(163):701-711. Matt Johnson, et al. BERITN. 2014;(11):7217-2756. us Mona Ndiaye MD HEMATOLOGY ORDERABLES Final Re sult Performing Organization Address [facility] de Phone Number [facility] [address] [place] [address] * NT PROBNP (11/07/2024 3:52 AM EDT) Pathologist [facility] NT Pro-BNP 53 <=138 pg/mL 11/07/2024 4:13 AM EDT [facility] Blood VENOUS BLOOD / Unknown Venipuncture / Unknown 11/07/2024 3:52 AM EDT 11/07/2024 3:55 AM EDT N[facility]ative [facility] - 11/07/2024 4:13 AM EDT [...] ORDERABLES Final Res ult Performing Organization Address [facility] de Phone Number [facility] [address] [place] [address] * TROPONIN-T HIGH SENSITIVITY BASELINE W/ REFLEX (11/07/2024 3:52 AM EDT) [facility] sr-yRymvwhqd-F 6 <22 ng/L 11/07/2024 4:13 AM EDT [facility] Blood VENOUS BLOOD / Unknown Venipuncture / Unknown 11/07/2024 3:52 AM EDT 11/07/2024 3:55 AM EDT Narrative [facility] - 11/07/2024 4:13 AM EDT Ingestion of josé miguel doses of biotin (>5 mg/day) taken within 8 hours of drawing blood sample can interfere with this immunoassay test. us Mona Ndiaye MD CHEMISTRY ORDERABLES Final Res ult [facility] [address] [place] [address] * (ABNORMAL) COMPREHENSIVE METABOLIC PANEL (11/07/2024 3:52 AM EDT) [facility] Sodium 136 136 - 145 mmol/L 11/07/2024 4:13 AM EDT [facility] Potassium 4.5 3.5 - 5.0 mmol/L 11/07/2024 4:13 AM EDT [facility] Chloride 104 98 - 107 mmol/L 11/07/2024 4:13 AM EDT [facility] Total CO2 21(L) 22 - 29 mmol/L 11/07/2024 4:13 AM EDT [facility] Anion Gap 11 7 - 16 mmol/L 11/07/2024 4:13 AM EDT [facility] Calcium 9.5 8.6 - 10.4 mg/dL 11/07/2024 4:13 AM EDT [facility] Glucose Lvl 104(H) 70 - 99 mg/dL 11/07/2024 4:13 AM EDT [facility] BUN 18 6 - 20 mg/dL 11/07/2024 4:13 AM EDT [facility] Creatinine 1.24 0.67 - 1.30 mg/dL 11/07/2024 4:13 AM EDT [facility] Albumin 4.4 3.5 - 5.2 gm/dL 11/07/2024 4:13 AM EDT [facility] Total Protein 7.1 6.4 - 8.3 gm/dL 11/07/2024 4:13 AM EDT [facility] Bili Total 0.3 0.2 - 1.4 mg/dL 11/07/2024 4:13 AM EDT [facility] ALT 20 <=41 U/L 11/07/2024 4:13 AM EDT [facility] AST 20 <=40 U/L 11/07/2024 4:13 AM EDT [facility] Alk Phos 127 40 - 129 U/L 11/07/2024 4:13 AM EDT [facility] eGFR (CKD-EPIcr 2020) 71 >=60 mL/min/1.7 3 m2 11/07/2024 4:13 AM EDT [facility] Comment:Estimated GFR was ca lculated using the CKD-EPIcr (2020) equation refit without race. The equation is recommended by the National Kidney Foundation - [place] Society of Nephrology Task Force. Blood VENOUS BLOOD / Unknown Venipuncture / Unknown 11/07/2024 3:52 AM EDT 11/07/2024 3:55 AM EDT us Mona Ndiaye MD CHEMISTRY ORDERABLES Final Res ult [address] [address] * (ABNORMAL) CBC WITH DIFF (11/07/2024 3:52 AM EDT) WBC 13.1(H) 3.7 - 10.3 x10(3)/mcL 11/07/2024 3:57 AM EDT [facility] RBC 4.70 4.60 - 6.10 x10(6)/mcL 11/07/2024 3:57 AM EDT [facility] Hgb 14.2 13.7 - 17.5 g/dL 11/07/2024 3:57 AM EDT [facility] Hct 41.9 40.0 - 51.0 % 11/07/2024 3:57 AM EDT [facility] MCV 89.1 80.0 - 100.0 fL 11/07/2024 3:57 AM EDT [facility] MCH 30.2 26.0 - 34.0 pg 11/07/2024 3:57 AM EDT [facility] MCHC 33.9 30.7 - 35.5 g/dL 11/07/2024 3:57 AM EDT [facility] RDW 13.3 <=14.9 % 11/07/2024 3:57 AM EDT [facility] Platelet 281 155 - 369 x10(3)/mcL 11/07/2024 3:57 AM EDT [facility] MPV 9.1 8.8 - 12.5 fL 11/07/2024 3:57 AM EDT [facility] Neut Percent 72.7 % 11/07/2024 3:57 AM EDT [facility] Comment:Neutrophils equals s egs plus bands Imm Gran% 0.7 % 11/07/2024 3:57 AM EDT [facility] Comment:Automated count of m etamyelocytes, myelocytes and promyelocytes. Lymph Percent 16.9 % 11/07/2024 3:57 AM EDT [facility] Ward Percent 7.8 % 11/07/2024 3:57 AM EDT [facility] Eos Percent 1.4 % 11/07/2024 3:57 AM EDT [facility] Baso Percent 0.5 % 11/07/2024 3:57 AM EDT [facility] Neut # 9.5(H) 1.6 - 6.1 x10(3)/mcL 11/07/2024 3:57 AM EDT [facility] Comment:Neutrophils equals s egs plus bands IMMGRAN# 0.1 0.0 - 0.1 x10(3)/mcL 11/07/2024 3:57 AM EDT [facility] Comment:Automated count of m etamyelocytes, myelocytes and promyelocytes. An absolute IG <0.1 is reported as 0.0. Lymph # 2.2 1.2 - 3.9 x10(3)/[facility] 11/07/2024 3:57 AM EDT [facility] Ward # 1.0(H) 0.3 - 0.9 x10(3)/[facility] 11/07/2024 3:57 AM EDT [facility] Eos# 0.2 0.0 - 0.5 x10(3)/[facility] 11/07/2024 3:57 AM EDT [facility] Baso # 0.1 0.0 - 0.1 x10(3)/[facility] 11/07/2024 3:57 AM EDT [facility] Blood VENOUS BLOOD / Unknown Venipuncture / Unknown 11/07/2024 3:52 AM EDT 11/07/2024 3:55 AM EDT us Mona Ndiaye MD HEMATOLOGY ORDERABLES Final Re sult Performing Organization Address City/State/[facility] Co de Phone Number [facility] [address] [place] [address] * EK EKG 12 LEAD (11/07/2024 3:33 AM EDT) Anatomical Region Laterality Modality Electrocardiogra phy 11/07/2024 3:37 AM EDT Impressions 11/07/2024 7:56 AM EDT [facility] Test Date: 2024-[facility]-07 Pat Name: ALEX HOFFMAN Department: DEPID Room: [facility] Gender: Male Excellence Specialist: Lanie : 1975 Requested By: MONA Chavez Order Number: [id number] [place] MD: Gala Huddleston DO Measurements Intervals [place] Rate: 69 P: 13 NV: 151 QRS: 33 QRSD: 94 T: 54 QT: 388 QTc: 418 Interpretive Statements SINUS RHYTHM Electronically Signed On 11-07-2024 07:56:36 EDT by Gala Huddleston DO Narrative Procedure Note Gala Huddleston DO - 11/07/2024 IMPRESSION [facility] Nicole Corby Test Date: 2024-11-07 Pat Name: ALEX HOFFMAN Department: DEPID Room: [facility]08 Gender: Male Excellence Specialist: Lanie : 1975 Requested By: MONA Chavez Order Number: [id number] [place] MD: Gala Huddleston DO Measurements Intervals [place] Rate: 69 P: 13 NV: 151 QRS: 33 QRSD: 94 T: 54 [...] 11/07/2024 documented in this encounter Care Teams Engraver Hand Soft Metals Relationship Specialty Start Date End Date Reyna Perez APRN [address] [place] [address] [address] [facility] [address] PCP - General Nurse Practitioner 10/27/24 documented as of this encounter
--- OUTSIDE RECORDS SUMMARY | 2024-11-23 12:38 | XMS_ITS | Encounter Summary ---
Author Organization [place] [address] Care Team Providers Care Investigator Operator Name Role Phone Reyna Perez DEMETRIUS Primary Care Provider [phone] Encounter Details Date Type Department Care Team (Latest Contact Info) Description 11/23/2024 12:38 PM EDT - 11/23/2024 11:59 PM EDT Hospital Encounter EDG PRE-ADMIT TESTING [facility] [place] [address] Pre-op testing (Primary Dx); Ureteral mass Discharge Disposition: Home or Self Care Anesthesia Record Procedure Summary Procedure Name Responsible Anesthesiologist Anesthesia Start Time Anesthesia Stop Time DAVINCI ROBOTIC NEPHROURETERECTOMY (Left) Tommy Romero, 12/01/24 1121 12/01/24 1648 Events Date Time Event Comment 12/01/2024 0912 1032 Line Placement 1048 AN Equip Check 1121 An Start 1122 An Start Data 1126 Immediate Pre Anesthetic Ass es 1131 An Induction 1133 An Intubation 1140 Anesthesia Ready 1147 Time out 1148 Incision 1217 Quick Note Shani not level during repositioning. Re leved after patient lateral. 1627 An Emergence 1635 An Extubation 1640 an stop data 1648 Handoff I completed my SBAR handoff to [...] acknowledgement of understanding from the receiving PACU/ICU master steam yacht 1648 An Stop Meds * Agents No agents on file. * Blood No blood administrations on file. Lines, Drains, and Airways Type Details Placement Removal Peripheral IV 12/01/24; 0715; 18; 1.16; Posterior, Right; Hand; konrad maldonado rn; 1; None; 12/04/24; 1144 12/01/24 0715 by Konrad Maldonado RN 12/04/24 1144 by Amanda Williamson RN Peripheral IV 12/01/24; 0929; 20; 1; Left, Posterior; Hand; konrad maldonado rn; 1; None; 12/04/24; 1144 12/01/24 0929 by Konrad Maldonado RN 12/04/24 1144 by Amanda Williamson RN Arterial Line 12/01/24; 1032 (crea brenda via procedure documentation); 20g; Radial (Ultrasound (US) was used to identify potential site for the arterial line. Using US, the radial artery was assessed and noted to be patent. US was used live-time to gain needle access to the artery and the wire was visualized within the vessel lumen. The artery appeared anatomically normal. A permanent image was recorded. The vascular structures appear to be normal and no anatomical pathology noted during line placement.); Chlora-prep; Right; 1; Yes; Yes; Yes; Yes; Yes; Yes 12/01/24 1032 by Jorge Alberto Hoang MD 12/01/24 1740 by Selene Lopez, RN Airway Device: ETT- Cuffed; Size: 7.5 mm; Placement Date: 12/01/24; Placement Time: 1133 (created via procedure documentation); Removal Date: 12/01/24; Removal Time: 1635 12/01/24 1133 by Desiree Kerr CRNA 12/01/24 1635 by Desiree Kerr CRNA NG/OG Tube 12/01/24; 1140; Retu rn of Gastric Content- decompression only; Orogastric; 18 fr; Center mouth 12/01/24 1140 by Desiree Kerr CRNA 12/01/24 1619 by Desiree Kerr CRNA Incision/Wound 12/01/24; 1148; No; Other (Comment); Urethra; Procedural site; 12/08/24; 1545 12/01/24 1148 by Josafat Pastor RN 12/08/24 1545 by Discharge Provider, Automatic Urethral Catheter ([place]) Placement Date: 12/01/24; Placement Time: 1215; Inserted By: Medina VILLARREAL; Type: Latex; Balloon Size: 10 ml; Collection Container: Urimeter; Securement Method: Securing device (Describe); Urine Returned: Yes; Location: OR; Silver-Coated Catheter In Use?: Yes; SONY Intact?: Yes; Removal Date: 12/07/24; Removal Time: 1428 12/01/24 1215 by Irena Olsen RN 12/07/24 1428 by Margie Diaz LPN Incision/Wound 12/01/24; 1250; No; Closed Surgical; Abdomen; Trocar site x 4; 12/08/24; 1545 12/01/24 1250 by Josafat Pastor RN 12/08/24 1545 by Discharge Provider, Automatic Incision/Wound 12/01/24; 1300; No; Abdomen; Midline; 12/08/24; 1545 12/01/24 1300 by Sonja Solis RN 12/08/24 1545 by Discharge Provider, Automatic Closed/Suction Drain 12/01/24; 1552; 1; Midline, Inferior; Abdomen; 10 Palestinian 12/01/24 1552 by Sonja Solis RN 12/08/24 0943 by Margie Diaz LPN documented in this encounter Social History Tobacco Use Types Packs/Day Years Used Date Smoking Tobacco: Every Day Cigarettes 1 37.1 Started: 05/10/1989 Smokeless Tobacco: Never Tobacco Cessation:Ready to Q uit: Not Asked; Counseling Given: Not Answered Alcohol Use Standard Drinks/Week Comments Not Currently 0 (1 standard drink = 0.6 oz pur e alcohol) Sexually Active Control Partners Comments Yes Female Sex and Gender Information Value Date Recorded Sex Assigned at Not on file Legal Sex Male 8:24 PM EDT Gender Identity Not on file Sexual Orientation Not on file documented as of this encounter Last Filed Vital Signs Vital Sign Reading Time Taken Comments Blood Pressure 119/65 11/23/2024 12:47 PM EDT Pulse 70 11/23/2024 12:47 PM EDT Temperature 36.7 C (98 F) 11/23/2024 12:47 PM EDT Respiratory Rate - - Oxygen Saturation 98% 11/23/2024 12: 47 PM EDT Inhaled Oxygen Concentration - - Weight 108.8 kg (239 lb 12.8 oz) 2024 12:47 PM EDT Height 172.7 cm (5' 8 ) 11/23/2024 12:4 7 PM EDT Body Mass Index 36.46 11/23/2024 12:47 PM EDT documented in this encounter Discharge Instructions * Discharge Instructions* Ronda Lopez RN - 11/23/2024 1:10 PM EDT Images from the original note were not included. PREPARING FOR YOUR SURGERY Date of Surgery: 12/01 Arrival time: Your surgeon may have already provided this, check your paperwork from the office. Ifnot received, call your surgeon's office. Location: [place] Medications on the Day of Surgery Take the following medications on the morning of surgery: metoprolol Medications to hold prior to surgery; Verify [...] No alcohol 24 hours prior to surgery. Linoleum Printer It is important to have a Linoleum Printer, someone who is 18 years or older, [...] concern, please reach out to our department [phone]. Hygiene [place] your teeth and gargle the morning of surgery. Shower the morning of surgery or the night before. Do not wear makeup (including eye makeup) lotion, powder, deodorant, perfume, or cologne. Do not shave the operative extremity or near the operative area. Remove nail vincentian prior to surgery. This includes artificial nails and gel nail vincentian. Personal Items Wear clean, simple, loose-fitting clothing (no jeans) and sturdy shoes (no flip flops, slides or crocs) to the hospital. Do not bring unnecessary valuables with you. It is policy that [facility] does not assume responsibility for lost, stolen [...] surgery. Please bring a case for them. Bring with You Bring a copy of your Living Will and/or Durable Power of Hall Worker for Healthcare. Bring Incentive spirometer on the day of surgery. Notify the Surgeon Notify your surgeon if you develop any illness (fever, cold, cough, sore throat, nausea, vomiting, skin rashes etc.) between now and surgery time Notify your surgeon and Pre-admission testing ([phone]) if you have any changes in your healthconditions or if any new medications are ordered between now and surgery.. Questions or Concerns? If you have any questions or concerns, feel free to call the Pre-Admission testing department at [phone]. We want to make sure you feel safe and have an excellent experience while you are here. Do not reply to this message through [employer] as it may not be answered promptly. Same Day Surgery Unit - [place] at [phone]; [place]: Park at Entrance 1A Main Entrance, NOT Outpatient Parking. Walk in atrium and go to front end software developer. Look for sign at information desk that states Surgery Check In . [address] [facility], [place] [address]. DOORS OPEN AT 5: 30 AM WED-WED AND 6:00 AM ON WEDNESDAY AND 8:00 AM ON WEDNESDAY * Attachments The following attachments cannot be sent through Care Everywhere. * How to use an incentive spirometer (Faroese) documented in this encounter Medications at Time [...] Tablet 12/08/2024 11:27 AM EDT 12/08/2024 5 sulfamethoxazole -trimethoprim (BACTRIM DS) 800-160 mg Oral Tablet Take 1 Tablet by mouth every 12 hours for 10 days. 20 Tablet 11/21/2024 5 traMADoL (ULTRAM) 50 mg Oral Tablet Take [...] Description 01/23/2025 9:00 AM EDT Office Visit [facility] [address] [place] [address] Drive [address] [place] [address] Logan Kenny MD [address] [place] [address] [place] [address] documented as of this encounter Procedures Procedure Name Priority Date/Time Associated Diagnosis Comments BB HISTORY CHECK Routine 11/23/2024 2:10 PM EDT Pre-op testing Ureteral mass SURGERY DATE Routine 11/23/2024 2:10 PM EDT Pre-op testing Ureteral mass PREADMISSION TYPE AND SCREEN Routine 11/23/2024 2:10 PM EDT Pre-op testing Ureteral mass ABORH Routine 11/23/2024 2:10 PM EDT Pre-op testing Ureteral mass CBC WITH DIFF Routine 11/23/2024 2:10 PM EDT Pre-op testing Ureteral mass ANTIBODY SCREEN IGG Routine 11/23/2024 2 :10 PM EDT Pre-op testing Ureteral mass BASIC METABOLIC PANEL Routine 11/23/2024 2:10 PM EDT Pre-op testing Ureteral mass documented in this encounter Results * BB HISTORY CHECK (11/23/2024 2:10 PM EDT) BB HISTORY CHECK (1) No Previous History 11/23/2024 2:31 PM EDT [facility] BLOOD BANK Blood VENOUS BLOOD / Unknown Venipuncture / Unknown 11/23/2024 2:10 PM EDT 11/23/2024 2:17 PM EDT us Susan Grossman APRN BLOOD BANK ORDERABLES Fi nal Result [facility] BLOOD BANK [address] [place] [address] * SURGERY DATE (11/23/2024 2:10 PM EDT) Surgery Date (1) Complete 11/23/2024 2:31 PM EDT [facility] BLOOD BANK Blood VENOUS BLOOD / Unknown Venipuncture / Unknown 11/23/2024 2:10 PM EDT 11/23/2024 2:17 PM EDT us Susan Grossman DRILLER'S OFFSIDER BLOOD BANK ORDERABLES Fi nal Result Performing Organization Address [facility] Co de Phone Number [facility] BLOOD [facility] [address] [place], [place] [id number] * ANTIBODY SCREEN IGG (11/23/2024 2:10 PM EDT) Pathologist [facility] ABSC IgG Int Negative 11/23/2024 3:13 PM EDT [facility] BLOOD BANK Blood VENOUS BLOOD / Unknown Venipuncture / Unknown 11/23/2024 2:10 PM EDT 11/23/2024 2:17 PM EDT us Susan Grossman APRN BLOOD BANK ORDERABLES Fi nal Result Performing Organization Address [facility] Co de Phone Number [facility] [place] [address] * ABORH (11/23/2024 2:10 PM EDT) [facility] ABORH Int B POS 11/23/2024 3:1 3 PM EDT [facility] BLOOD BANK Blood VENOUS BLOOD / Unknown Venipuncture / Unknown 11/23/2024 2:10 PM EDT 11/23/2024 2:17 PM EDT us Susan Grossman DRILLER'S OFFSIDER BLOOD BANK ORDERABLES Fi nal Result Performing Organization Address [facility] Co de Phone Number [facility] BLOOD [facility] [address] [place] [address] * (ABNORMAL) BASIC METABOLIC PANEL (11/23/2024 2:10 PM EDT) [facility] Sodium 137 136 - 145 mmol/L 11/23/2024 3:02 PM EDT [facility] Potassium 3.7 3.5 - 5.0 mmol/L 11/23/2024 3:02 PM EDT [facility] Chloride 103 98 - 107 mmol/L 11/23/2024 3:02 PM EDT [facility] Total CO2 21(L) 22 - 29 mmol/L 11/23/2024 3:02 PM EDT [facility] Anion Gap 13 7 - 16 mmol/L 11/23/2024 3:02 PM EDT [facility] Calcium 9.4 8.6 - 10.4 mg/dL 11/23/2024 3:02 PM EDT [facility] Glucose Lvl 88 70 - 99 mg/dL 11/23/2024 3:02 PM EDT [facility] BUN 13 6 - 20 mg/dL 11/23/2024 3:02 PM EDT [facility] Creatinine 1.01 0.67 - 1.30 mg/dL 11/23/2024 3:[address] [facility] eGFR (CKD-EPIcr 2020) 91 >=60 mL/min/1.7 3 m2 11/23/2024 3:[address] [facility] Comment:Estimated GFR was ca lculated using the CKD-EPIcr (2020) equation refit without race. The equation is recommended by the National Kidney Foundation - [place] [employer] Neph[employer] Task Force. Blood VENOUS BLOOD / Unknown Venipuncture / Unknown 11/23/2024 2:10 PM EDT 11/23/2024 2:20 PM EDT us Susan Grossman APRN CHEMISTRY ORDERABLES Fin al Result [facility] [address] [facility] , [address] [place] [id number] * CBC WITH DIFF (11/23/2024 2:10 PM EDT) Pathologist [facility] WBC 8.2 3.7 - 10.3 x10(3)/mcL 11/23/2024 2:35 PM EDT [facility] RBC 4.87 4.60 - 6.10 x10(6)/mcL 11/23/2024 2:35 PM EDT [facility] Hgb 14.5 13.7 - 17.5 g/dL 11/23/2024 2:35 PM EDT [facility] Hct 42.0 40.0 - 51.0 % 11/23/2024 2:35 PM EDT [facility] MCV 86.2 80.0 - 100.0 fL 11/23/2024 2:35 PM EDT [facility] MCH 29.8 26.0 - 34.0 pg 11/23/2024 2:35 PM EDT [facility] MCHC 34.5 30.7 - 35.5 g/dL 11/23/2024 2:35 PM EDT [facility] RDW 13.5 <=14.9 % 11/23/2024 2:35 PM EDT [facility] Platelet 278 155 - 369 x10(3)/mcL 11/23/2024 2:35 PM EDT [facility] MPV 9.1 8.8 - 12.5 fL 11/23/2024 2:35 PM EDT [facility] Neut Percent 59.7 % 11/23/2024 2:35 PM EDT [facility] Comment:Neutrophils equals s egs plus bands Imm Gran% 0.5 % 11/23/2024 2:35 PM EDT [facility] Comment:Automated count of m etamyelocytes, myelocytes and promyelocytes. Lymph Percent 28.0 % 11/23/2024 2:35 PM EDT [facility] Barbour Percent 9.1 % 11/23/2024 2:35 PM EDT [facility] Eos Percent 2.1 % 11/23/2024 2:35 PM EDT [facility] Baso Percent 0.6 % 11/23/2024 2:35 PM EDT [facility] Neut # 4.9 1.6 - 6.1 x10(3)/mcL 11/23/2024 2:35 PM EDT [facility] Comment:Neutrophils equals s egs plus bands IMMGRAN# 0.0 0.0 - 0.1 x10(3)/mcL 11/23/2024 2:35 PM EDT [facility] Comment:Automated count of m etamyelocytes, myelocytes and promyelocytes. An absolute IG <0.1 is reported as 0.0. Lymph # 2.3 1.2 - 3.9 x10(3)/[facility] 11/23/2024 2:35 PM EDT [facility] Barbour # 0.8 0.3 - 0.9 x10(3)/[facility] 11/23/2024 2:35 PM EDT [facility] Eos# 0.2 0.0 - 0.5 x10(3)/[facility] 11/23/2024 2:35 PM EDT [facility] Baso # 0.1 0.0 - 0.1 x10(3)/[facility] 11/23/2024 2:35 PM EDT [facility] Blood VENOUS BLOOD / Unknown Venipuncture / Unknown 11/23/2024 2:10 PM EDT 11/23/2024 2:20 PM EDT us Susan Grossman DRILLER'S OFFSIDER HEMATOLOGY ORDERABLES Fi nal Result [facility], [address] , [place] [address] documented in this encounter Visit Diagnoses Diagnosis Pre-op testing- Primary Preoperative examination, unspecified Ureteral mass Unspecified disorder of kidney and ureter documented in this encounter Care Teams Investigator Operator Relationship Specialty Start Date End Date Reyna Perez APRN [address] [facility] [address] [place] [address] PCP - General Nurse Practitioner 10/27/24 documented as of this encounter
--- OUTSIDE RECORDS SUMMARY | 2024-12-01 08:38 | XMS_ITS | Encounter Summary ---
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] Procedures HI LAPAROSCOPY RADICAL NEPHRECTOMY HI CYSTOURETHROSCOPY W/DEST &/RMVL MED BLADDER EMERY HI LAPAROSCOPY NEPHRECTOMY W/TOTAL URETERECTOMY LEFT DAVINCI ROBOTIC NEPHROURETERECTOMY, CYSTOSCOPY, TRANSURETHRAL RESECTION OF THE BLADDER TUMOR Referral ID Status Reason Start Date Expiration Date Visits Re quested Visits Authorized [id number] 1 1 Encounter Details Date Type Department Care Team (Latest Contact Info) Description 12/01/2024 8:38 AM EDT - 12/08/2024 11:29 AM EDT Hospital Encounter EDG 7C UROLOGY [place] [id number] Sadi Haney MD [address] [facility] [address] [place] [address] Preop testing (Primary Dx); Ureteral mass Discharge Disposition: Discharge/Readmit Social History Tobacco Use Types Packs/Day Years Used Date Smoking Tobacco: Every Day Cigarettes 1 37.1 Started: 05/10/1989 Smokeless Tobacco: Never Alcohol Use Standard Drinks/Week Comments Not Currently 0 (1 standard drink = 0.6 oz pur e alcohol) [facility] Utilities Answer Date Recorded In the past 12 months has [employer] electric, gas, oil, or water company threatened to shut off services in your home? No 12/04/2024 Overall Financial Resource Strain (CARDIA) Answe r Date Recorded How hard is it for you to pa y for the very basics like food, housing, medical care, and heating? Somewhat hard 12/04/2024 PHQ-2 Answer Date Recorded PHQ-2 Total Score 0 12/04/2024 [facility] - Occupational Stress [...] have money to get more. Never true [facility] IP Transportation Answer D ate Recorded [...] 8:11 PM EDT Viri Segura RN * [place] Suicide Severity Rating Scale (Q shift for [...] Physician Discharge Summary Patient ID: Alex Hoffman [id number] 49 y.o. 1975 Admit date: 12/01/2024 Discharge [...] Your Medications These medications were sent to [facility] [address] [facility] [place] [address] Hours: Wednesday-Wednesday 8:00am - 6:30pm traMADoL 50 mg Tab You can get these medications from any pharmacy You don't need a prescription for these medications acetaminophen 325 mg Tab Sadi Haney MD [address] [facility] [address] [facility] [address] Follow up in 2 week(s) follow up with Logan Montana MD [address] [facility] [place] [address] Follow up in 2 week(s) To discuss re-intation of antiplatelet therapy and further CTS w/u Reyna Perez APRN [address] [facility] [address] [facility] [...] UNABLE TO REACH YOUR UROLOGIST OR UROLOGIST LAUNDRY FOLDER, YOU SHOULD GO TO A NEARBY EMERGENCY [...] hours a day, please call the [facility] urology department * Attachments The following attachments cannot be sent through Care Everywhere. * How to use an incentive spirometer (Beninese) * Nephrectomy ??? Discharge instructions (Beninese) * How to take anticoagulants safely (Beninese) * Vancomycin (Beninese) * Cefuroxime (Beninese) documented in this encounter Medications at Time [...] AM EDT Discharge Medication Delivery Service DMD salvage engineering technician has delivered the following medications for Alex Hoffman: Rx#[id number]:TRAMADOL 50 MG TABLET-50 mg EVERY 6 HOURS PRN Rx#[id number]:TOLTERODINE ER 4 MG CAPSULE,EXTENDED RELEASE 24 HR-4 mg DAILY Rx#[id number]:CEFUROXIME AXETIL 500 MG TABLET-500 mg EVERY 12 HOURS SCHEDULED Rx#[id number]:HYDROXYZINE PAMOATE 25 MG CAPSULE-25 mg EVERY 8 HOURS PRN Rx#[id number]:VANCOMYCIN 125 MG CAPSULE-125 mg 4 TIMES DAILY Date/Time of Delivery: 12/08/2024 11:35 AM Delivered to: Room 7308 Placed med bag on tray table. Please contact DMD salvage engineering technician with any questions. Thanks! More Johnston [...] AM EDTAssociated Problem(s): Coronary artery disease involving coushatta coronary artery of coushatta heart without angina pectoris - CABG planned [...] carcinoma Elevated troponin Coronary artery disease involving coushatta coronary artery of coushatta heart without angina pectoris - CABG planned [...] left ureter (HCC) Coronary artery disease involving coushatta coronary artery of coushatta heart without angina pectoris Subjective: at bedside. [...] Expected 12/08/24 Time Expected 1000 * Peace eRa APRN - 12/08/2024 6:50 AM EDT Images from the original note were not included. [facility] Urology Progress Note Hospital Day: 8 [...] PM EDTAssociated Problem(s): Coronary artery disease involving coushatta coronary artery of coushatta heart without angina pectoris - CABG planned [...] urology Elevated troponin Coronary artery disease involving coushatta coronary artery of coushatta heart without angina pectoris - CABG planned [...] left ureter (HCC) Coronary artery disease involving coushatta coronary artery of coushatta heart without angina pectoris Subjective: at bedside. [...] PT Subjective Note Type Discharge Patient Room/Unit 8096 Discharge Information Discharge complete, please see discharge summary report for further information including most recently documented activity level Clinical Course pt obsesrved to be amb numerous laps in [facility]. therapy will sign off at thistimes Plan PT Frequency Complete Cosigned by Jennifer Santamaria PT at 12/07/2024 11:18 AM EDT Associated attestation - Jennifer Santamaria, PT - 12/07/2024 11:18 AM EDT I agree with the PREPARATION CENTER COORDINATOR documentation. * RonaPeaceJULIENN - 12/07/2024 6:58 AM EDT Images from the original note were not included. [facility] Urology Progress Note Hospital Day: 7 [...] PM EDTAssociated Problem(s): Coronary artery disease involving coushatta coronary artery of coushatta heart without angina pectoris - CABG planned [...] - change antibiotics to PO * Juana Shoemaekr MD - 12/06/2024 1:51 PM EDTAssociated Problem(s): [...] carcinoma Elevated troponin Coronary artery disease involving coushatta coronary artery of coushatta heart without angina pectoris - CABG planned [...] left ureter (HCC) Coronary artery disease involving coushatta coronary artery of coushatta heart without angina pectoris Subjective: Diarrhea improving. 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 - LHC showed ostial LAD 70% stenosis, circumflex (nondominant) with 60-70% stenosis, with 30-40% stenosis of first OM. Pt reports he had LHC and PCI on 09/27/24 (VIC x 1 to RCA) at [facility]. Pt was scheduled to have additional PCI [...] Further input from Dr. Packer. Promise Cho, STALLION KEEPER, Heart and Vascular 12/06/2024 Cardiology Disposition Perspective - Medically Ready for Discharge: No Anticipated Discharge: tomorrow Discharge when / if: pending clinical improvement ATTESTATION I saw and evaluated the patient. I agree with the history of present illness, review of systems andpast family/social history as documented in the OJSSIE note. 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 [facility] Urology Progress Note Hospital Day: 6 [...] from the original note were not included. [facility] Urology Progress Note Hospital Day: 5 [...] left radical nephroureterectomy. - pathology pending * uJana Shoemaker MD - 12/05/2024 1:37 PM EDTAssociated Problem(s): Elevated troponin - CABG planned at some point diffuse severe disease, troponin elevation likely due to demand ischemia, - cards consulted - holding asa for now - statin * Juana Shoemaker MD - 12/05/2024 1:37 PM EDTAssociated Problem(s): Coronary artery disease involving coushatta coronary artery of coushatta heart without angina pectoris - CABG planned [...] pending Elevated troponin Coronary artery disease involving coushatta coronary artery of coushatta heart without angina pectoris - CABG planned [...] left ureter (HCC) Coronary artery disease involving coushatta coronary artery of coushatta heart without angina pectoris Subjective: at bedside. [...] to restart- no doses yet 12/04 - PREPARATION CENTER COORDINATOR Lasix 40gm QD, losartan 50mg QD, Toprol 25mg QD (on hold) Anemia - Hgb 10.2>7.5>8.1>7.9>7.3>8.2>8.9>8.4 - s/p 2 U PRBC's 12/03 and 1 U PRBC 12/04 CAD - EKG SR no acute ischemia appreciated - Trops > - Denies chest pain/ diaphoresis/ nausea - PREPARATION CENTER COORDINATOR Effient, ASA, Statin, Toprol - Echo 10/2024: EF 60-65%. - LHC showed ostial LAD 70% stenosis, circumflex (nondominant) with 60-70% stenosis, with 30-40% stenosis of first OM. Pt reports he had LHC and PCI on 09/27/24 (VIC x 1 to RCA) at [facility]. Pt was scheduled to have additional PCI [...] - Will discuss bASA plans with attending lieutenant colonel - on hold currently last dose 12/04. [...] bedside. PCI in September. Working towards CABG. PREPARATION CENTER COORDINATOR Effient and bASA. Currently holding both. Recommend resumption bASA as soon as cleared by Urology. BP controlled on current regimen. Hgb trend better today. Will follow tomorrow. * Peace Rea APRN - 12/05/2024 8:01 AM EDT Images from the original note were not included. [facility] Urology Progress Note Hospital Day: [...] from the original note were not included. [facility] Urology Progress Note Hospital Day: 4 [...] Pt admitted with Ureteral Mass, pt has [employer] insurance. Note pt is alert and oriented x4. CC met with pt and Tessy at bedside and introduced self and role. Pt states he lives in a 1 story home with 2 steps to enter, ptstates he lives with his Tessy. PCP is Reyna Perez. Pt states he uses [facility] in [place]. Pt states he has concerns with affordability [...] Status Alert and oriented Does patient need american sign language interpreter? No Decision Maker Patient Activities of Daily [...] or connection with God Interventions with Patient Adventist Interventions Prayer with patient or family Outcomes Expressed Outcomes Appreciative of visit Care Plan Plan for Follow-Up Fitness Sales Associate(s) will continue to follow throughout admission Carolyn [...] to restart- no doses yet 12/04 - PREPARATION CENTER COORDINATOR Lasix 40gm QD, losartan 50mg QD, Toprol 25mg QD (on hold) Anemia - Hgb 10.2>7.5>8.1>7.9>7.3 - s/p 2 U PRBC's 12/03 and 1 U PRBC 12/04 CAD - EKG SR no acute ischemia appreciated - Trops 27> 26 - Denies chest pain/ diaphoresis/ nausea - PREPARATION CENTER COORDINATOR Effient, ASA, Statin, Toprol - Echo 10/2024: EF 60-65%. - LHC showed ostial LAD 70% stenosis, circumflex (nondominant) with 60-70% stenosis, with 30-40% stenosis of first OM. Pt reports he had LHC and PCI on 09/27/24 (VIC x 1 to RCA) at [facility]. Pt was scheduled to have additional PCI to LAD and circ however pt wanted a second opinion for possible CABG surgery. Met with Dr. Kenny 10/10 with plans for CABG x 2 with QUINTIN clip on 10/30/24.however this was postponed until urology w/u is complete. Plan: - Supportive care per others - Continue statin, Toprol - Will discuss bASA plans with attending lieutenant colonel - on hold currently last dose today [...] AM EDTAssociated Problem(s): Coronary artery disease involving coushatta coronary artery of coushatta heart without angina pectoris Cardiology consulted. Plan [...] with bloody output. Coronary artery disease involving coushatta coronary artery of coushatta heart without angina pectoris Cardiology consulted. Plan [...] from the original note were not included. [facility] Urology Progress Note Hospital Day: 4 [...] hb was 8.2 Stopped bASA after d/w lieutenant colonel Plan: Hold bASA DAMIEN off suction Check [...] from the original note were not included. [facility] Urology Progress Note Hospital Day: 3 [...] no acute ischemia appreciated -Trops -ASA/ Statin ferryboat captain -Denies chest pain/ diaphoresis/ nausea Hypotension [...] BP Further input from Dr Lizzie Hinkle, STALLION KEEPER, Heart and Vascular 12/03/2024 Disposition Perspective - [...] any restarting metoprolol today. 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 Plan per urology, follow path - await urology plans for today Elevated troponin Coronary artery disease involving coushatta coronary artery of coushatta heart without angina pectoris - CABG planned [...] from the original note were not included. [facility] Urology Progress Note Hospital Day: 3 [...] from the original note were not included. [facility] Urology Progress Note Hospital Day: 2 [...] and relaxation without help. Message sent to automation engineer and 1x dose valium ordered. Pt noted [...] PM EDTAssociated Problem(s): Coronary artery disease involving coushatta coronary artery of coushatta heart without angina pectoris - diffuse severe [...] from the original note were not included. [facility] Urology Progress Note Hospital Day: 2 [...] Rogers APRN - 12/01/2024 8:50 AM EDT [facility] History and Physical Name: Alex Hoffman ADDRESS: [address] [place] [address] [place] [address] : 1975 AGE: 49 y.o. ASSESSMENT: Ureteral mass [N28.89] PLAN: Procedure(s): LEFT DAVINCI ROBOTIC NEPHROURETERECTOMY, CYSTOSCOPY, TRANSURETHRAL RESECTION OF THE BLADDER TUMOR per Sadi Haney MD Admitting Physician: aSdi Haney MD Date of Admit: 12/01/2024 SUBJECTIVE: Chief Complaint: Ureteral mass [N28.89] History of Present Illness: Patient is a 49 y.o. male with Ureteral mass [N28.89] who presents for surgical intervention. Past Medical History: Diagnosis Date Anxiety CAD (coronary artery disease) Cancer (HCC) GERD (gastroesophageal reflux disease) Heartburn Hyperlipidemia Hypertension Kidney mass left MO (myocardial infarction) (HCC) 09/17/2024 Motion sickness Past [...] left radical nephroureterectomy. SURGEON Sadi Haney MD WIRE TRANSFER CLERK See OR record ANESTHESIS General. ESTIMATED BLOOD LOSS 100 mL. DRAINS 10 mm DAMIEN. TUBES 22 Slovak Bradford catheter. COMPLICATIONS None. POSTOPERATIVE CONDITION Good. [...] in the midclavicular line. A 12 mm assistant inventory manager port was placed above the umbilicus. A 5 mm port for the assistant inventory manager was placed below the xiphoid process. The [...] Hoffman 1 PCP: Reyna Perez APRN Primary Fire Engine Pump Operator: None on file I would like to thank Sadi Haeny MD for requesting me to see Alex [...] disease) Heartburn Hyperlipidemia Hypertension Kidney mass left MO (myocardial infarction) (HCC) 09/17/2024 Motion sickness PREPARATION CENTER COORDINATOR Medications: Prior to Admission medications Medication Sig [...] CYSTOSCOPY 10/27/2024 Surgeon: Patricia Ellison MD; Location: [facility]; Service: Urology Allergy No Known [...] most recent cardiovascular imaging studies available in [facility] EMR were reviewed at time [...] no acute ischemia appreciated -Trops -ASA/ 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 Pneumonia. Per primary. Bear Samuel MD, [facility] 12/02/2024 6:11 PM * Meng Chen MD [...] disease) Heartburn Hyperlipidemia Hypertension Kidney mass left MO (myocardial infarction) (HCC) 09/17/2024 Motion sickness Past Surgical History: Procedure Laterality Date CARDIAC CATHETERIZATION CORONARY ANGIOPLASTY WITH STENT PLACEMENT Sep 19 2022 CYSTOSCOPY 10/27/2024 Surgeon: Patricia Ellison MD; Location: [facility]; Service: Urology No Known Allergies Current [...] mg, 5-6 mg, Intravenous, Q1H PRN, Sadi Hnaey MD nicotine (NICODERM CQ) 21 mg/24 hr [...] left ureter (HCC) Coronary artery disease of coushatta artery of coushatta heart with stable angina pectoris Assessment and Plan Assessment & Plan 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 Plan per urology, follow path Coronary artery disease of coushatta artery of coushatta heart with stable angina pectoris - diffuse [...] SURGERY: 12/01/2024 WITH Sadi Khoury MD FOR: HI LAPAROSCOPY NEPHRECTOMY W/TOTAL URETERECTOMY [46736] (LEFT DAVINCI ROBOTIC NEPHROURETERECTOMY, CYSTOSCOPY, TRANSURETHRAL RESECTION OF THE BLADDER TUMOR) HI LAPAROSCOPY RADICAL NEPHRECTOMY [62566] HI CYSTOURETHROSCOPY W/DEST &/RMVL MED BLADDER EMERY [64121] THE ANESTHESIA DEPARTMENT IS REQUESTING A CLEARANCE RELATED TO: Recent PCI. Also surgeons is requesting if blood thinner can be held ? Anesthesia type:General PLEASE RESPOND TO THIS ENCOUNTER OR CALL WITH ANY QUESTIONS/CONCERNS PHONE: [phone] Thank You [facility] PRE-ADMISSION TESTING DEPARTMENT * Shoshana Rankin RN - 11/23/2024 2:24 PM EDT REPORTS REQUEST ATTENTION:Reyna Perez PATIENT: Alex Hoffman : 1975 This patient is scheduled for surgery on 12/01/2024 with Sadi Khoury MD Anesthesia has requested the most recent results of the following tests: Most recent office visit note and any recent testing COMMENTS:__Thanks! Please fax to Pre-admission testing. PHONE # [phone] ATTENTION: [address] [address] documented in this encounter Miscellaneous Notes * Utilization Review Notes - Gala Powell LPN - 12/08/2024 11:29 AM EDT DISCHARGED HOME ON 12/08/24 FOLLOW UP WITH Sadi Haney MD [address] [facility] [address] [facility] [id number] Follow up in 2 week(s) follow up with Logan Montana MD [address] [facility] [address] Follow up in 2 week(s) To discuss re-intation of antiplatelet therapy and further CTS w/u Reyna Perez, STALLION KEEPER [address] [facility] [address] [facility] [phone] Follow up in 1 week(s) Hospital follow up, recheck CBC next week with PCP prior to restarting blood thinner * Query Response Document - Juana Shoemaker MD - 12/08/2024 11:[address] [facility] CDI / HIM Coding Query Documentation PATIENT: ALEX HOFFMAN : 1975 ADMIT DATE: 12/01/2024 8:38 AM DISCH DATE: 12/08/2024 11:29 AM RESPONDING PROVIDER #: [id number] PROVIDER QUERY RESPONSE TEXT: Severe Sepsis POA [...] any questions, please contact Rodriguez Gabriel @ [phone]) Options provided: -- Severe Sepsis POA -- [...] * Utilization Review Notes - Gala Powell, HEAD LOFT WORKER - 12/07/2024 9:54 AM EDT 12/07 TEMP [...] from the original note were not included. TRAVEL SALES CONSULTANT FOR ADMIT ON 12/01 ON MED SURG [...] pending Elevated troponin Coronary artery disease involving coushatta coronary artery of coushatta heart without angina pectoris - CABG planned [...] - Will discuss bASA plans with attending lieutenant colonel - on hold currently last dose 12/04. [...] to restart- no doses yet 12/04 - PREPARATION CENTER COORDINATOR Lasix 40gm QD, losartan 50mg QD, Toprol 25mg QD (on hold) Anemia - Hgb 10.2>7.5>8.1>7.9>7.3 - s/p 2 U PRBC's 12/03 and 1 U PRBC 12/04 CAD - EKG SR no acute ischemia appreciated - Trops > 26 - Denies chest pain/ diaphoresis/ nausea - PREPARATION CENTER COORDINATOR Effient, ASA, Statin, Toprol - Echo 10/2024: EF 60-65%. - LHC showed ostial LAD 70% stenosis, circumflex (nondominant) with 60-70% stenosis, with 30-40% stenosis of first OM. Pt reports he had LHC and PCI on 09/27/24 (VIC x 1 to RCA) at [facility]. Pt was scheduled to have additional PCI to LAD and circ however pt wanted a second opinion for possible CABG surgery. Met with Dr. Kenny 10/10 with plans for CABG x 2 with QUINTIN clip on 10/30/24.however this was postponed until urology w/u is complete. Plan: - Supportive care per others - Continue statin, Toprol - Will discuss bASA plans with attending lieutenant colonel - on hold currently last dose today [...] urology, follow path Coronary artery disease of coushatta artery of cous[place]ta heart with stable angina pectoris - diffuse [...] Description 01/23/2025 9:00 AM EDT Office Visit [facility] [address] [place] [phone] Logan Kenny MD [address] [place] [phone] Pending Results Name Type Priority Associated Diagnoses [...] Hoffman 1 PCP: Reyna Perez APRN Primary Fire Engine Pump Operator: None on file I would like to [...] disease) Heartburn Hyperlipidemia Hypertension Kidney mass left MO (myocardial infarction) (HCC) 09/17/2024 Motion sickness PREPARATION CENTER COORDINATOR Medications: Prior to Admission medications Medication Sig [...] CYSTOSCOPY 10/27/2024 Surgeon: Patricia Ellison MD; Location: [facility] OR; Service: Urology Allergy No Known Allergies Patient Active Problem List Diagnosis ASHD (arteriosclerotic heart disease) 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) BP 118/53 (BP Location: Right arm) Pulse 103 Temp 98 F (36.7 C)(Oral) Resp 18 Ht 5' 8 (1.727 m) Wt 243 lb (110.2 kg) VeS072% BMI 36.95 kg/m I/O 24 hours: Intake/Output Summary (Last 24 hours) at 12/02/2024 1156 Last data filed at 12/02/2024 1154 Gross per 24 hour Intake 7111.22 ml Output 1360 ml Net 5751.22 ml Diagnostic tests The most recent cardiovascular imaging studies available in [facility] EMR werereviewed at time of [...] no acute ischemia appreciated -Trops -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 Lizzie Hinkle, STALLION KEEPER Heart and Vascular 12/02/2024 Disposition Perspective - [...] 4. Pneumonia. Per primary. Bear Samuel MD, [facility] 12/02/2024 6:11 PM TROPONIN-T HIGH SENSITIVITY [...] disease) Heartburn Hyperlipidemia Hypertension Kidney mass left MO (myocardial infarction) (HCC) 09/17/2024 Motion sickness Past Surgical History: Procedure Laterality Date CARDIAC CATHETERIZATION CORONARY ANGIOPLASTY WITH STENT PLACEMENT Sep 19 2022 CYSTOSCOPY 10/27/2024 Surgeon: Patricia Ellison MD; Location: [facility] OR; Service: Urology No Known Allergies Current [...] left ureter (HCC) Coronary artery disease of [place] artery of [place] heart with stableangina pectoris Assessment and Plan Assessment & Plan 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 Planper urology, follow path Coronary artery disease of [place] artery of [place] heart with stableangina pectoris - diffuse severe [...] OLYMPUS ESU, CYSTO FIRST, KCDR HAJ-HAMED ASSISTINGsk HI CYSTOURETHROSCOPY W/DEST &/RMVL MED BLADDER EMERY 12/01/2024 11:21 AM EDT Ureteral mass Special Needs LASSITER KNIFE, HANG WATER, OLYMPUS ESU, CYSTO FIRST, KCDR HAJ-HAMED ASSISTINGsk HI LAPAROSCOPY RADICAL NEPHRECTOMY 12/01/2024 11:21 AM EDT Ureteral mass Special Needs LASSITER KNIFE, HANG WATER, OLYMPUS ESU, CYSTO FIRST, KCDR HAJ-HAMED ASSISTINGsk HI LAPAROSCOPY NEPHRECTOMY W/TOTAL URETERECTOMY 12/01/2024 11:21 AM EDT Ureteral mass Special Needs LASSITER KNIFE, HANG WATER, OLYMPUS ESU, CYSTO FIRST, KCDR HAJ-HAMED ASSISTINGsk US ANES GUIDANCE FOR POC [facility] 12/01/2024 9:47 AM EDT BB HISTORY CHECK STAT 12/01/2024 9:22 AM EDT Preop testing ABORH STAT 12/01/2024 9:22 AM EDT Preop testing RED BLOOD CELLS REQUEST [facility] 11/23/2024 2:10 PM EDT RED BLOOD CELLS REQUEST [facility] 11/23/2024 2:10 PM EDT documented in [...] 6:48 AM EDT [facility] [place] Percent 11.0 % 12/08/2024 6:48 AM EDT [facility] Eos Percent 1.9 % 12/08/2024 6:48 AM EDT [facility] Baso Percent 0.3 % 12/08/2024 6:48 AM EDT [facility] Neut # 6.7(H) 1.6 - 6.1 x10(3)/[facility] 12/08/2024 6:48 AM EDT [facility] Comment:Neutrophils equals s egs plus bands IMMGRAN# 0.1 0.0 - 0.1 x10(3)/mcL 12/08/2024 6:48 AM EDT [facility] Comment:Automated count of m etamyelocytes, myelocytes and promyelocytes. An absolute IG <0.1 is reported as 0.0. Lymph # 1.3 1.2 - 3.9 x10(3)/[facility] 12/08/2024 6:48 AM EDT [facility] [place] # 1.0(H) 0.3 - 0.9 x10(3)/[facility] 12/08/2024 6:48 AM EDT [facility] Eos# 0.2 0.0 - 0.5 x10(3)/[facility] 12/08/2024 6:48 AM EDT [facility] Baso # 0.0 0.0 - 0.1 x10(3)/[facility] 12/08/2024 6:48 AM EDT [facility] Blood VENOUS BLOOD / Unknown Venipuncture / Unknown 12/08/2024 6:02 AM EDT 12/08/2024 6:35 AM EDT us Juana Shoemaker MD HEMATOLOGY ORDERABLES Final R esult [facility] [address] [facility] , [place] [address] * (ABNORMAL) BASIC METABOLIC PANEL (12/08/2024 6:02 AM EDT) Sodium 137 136 - 145 mmol/L 12/08/2024 7:09 AM EDT [facility] Potassium 3.7 3.5 - 5.0 mmol/L 12/08/2024 7:09 AM EDT [facility] Chloride 104 98 - 107 mmol/L 12/08/2024 7:09 AM EDT [facility] Total CO2 21(L) 22 - 29 mmol/L 12/08/2024 7:09 AM EDT [facility] Anion Gap 12 7 - 16 mmol/L 12/08/2024 7:09 AM EDT [facility] Calcium 9.3 8.6 - 10.4 mg/dL 12/08/2024 7:09 AM EDT [facility] Glucose Lvl 105(H) 70 - 99 mg/dL 12/08/2024 7:09 AM EDT [facility] BUN 11 6 - 20 mg/dL 12/08/2024 7:09 AM EDT [facility] Creatinine 0.96 0.67 - 1.30 mg/dL 12/08/2024 7:09 AM EDT [facility] eGFR (CKD-EPIcr 2020) 96 >=60 mL/min/1.7 3 m2 12/08/2024 7:09 AM EDT [facility] Comment:Estimated GFR was ca lculated using the CKD-EPIcr (2020) equation refit without race. The equation is recommended by the National Kidney Foundation - [place] [employer] of Nephrology Task Force. Blood VENOUS BLOOD / Unknown Venipuncture / Unknown 12/08/2024 6:02 AM EDT 12/08/2024 6:34 AM EDT us Juana Shoemaker MD CHEMISTRY ORDERABLES Final Re sult [facility] [address] [facility] , [address] [place] [phone] * ECG AND WAVEFORMS - TELEMETRY (12/07/2024 8:06 PM EDT) ECG INTERPRET NSR [facility] 12/07/2024 8:06 PM EDT Narrative [facility] - 12/07/2024 8:18 PM EDT ROUTINE (BS) HI 0.16 QRS 0.12 RR 0.65 QT 0.40 QTc 0.50 See Clinical Report link for waveform capture us Unknown Provider POINT OF CARE CARDIOLOGY Final Result [facility] [address] [place] [address] * [place] CYSTOGRAM MINIMUM 3 [...] examination was performed by Rachna Eller, physician assistant inventory manager, under the supervision of Dr. Singh. A total fluoroscopy time of 1.2 minutes was used. 119 fluoroscopic spot images were saved to PACS. FINDINGS: Via Bradford catheter, 175 mL of water-soluble contrast was instilled retrograde into the urinary bladder. Imaging was performed in multiple projections. Hub [facility] radiographs show a surgical drain over the [...] The examination was performed by Rachna Eller,physician assistant inventory manager, under the supervision of Dr. Singh. A total fluoroscopy timeof 1.2 minutes was used. 119 fluoroscopic spot images were saved to PACS. FINDINGS: Via Bradford catheter, 175 mL of water-soluble contrast wasinstilled retrograde into the urinary bladder. Imaging was performed in multiple projections. Hub Borer radiographs show a surgical drain over the [...] LAB 12/07/2024 10:1 2 AM EDT Narrative [facility] - 12/07/2024 10:20 AM EDT (DT)ROUTINE HI 0.15 QRS 0.09 RR 0.73 QT 0.37 QTc 0.43 See Clinical Report link for waveform capture us Unknown Provider POINT OF CARE CARDIOLOGY Final Result [facility] 1 [place] [phone] * (ABNORMAL) CBC (12/07/2024 5:33 AM EDT) [...] ORDERABLES Fin al Result Performing Organization Address [facility] Co de Phone Number [facility], [address], [place] [address] * ECG AND WAVEFORMS - TELEMETRY (12/06/2024 11:04 PM EDT) ECG INTERPRET NSR [facility] 12/06/2024 11:0 4 PM EDT Narrative [facility] - 12/06/2024 11:37 PM EDT ROUTINE HI 0.13 QRS 0.12 RR 0.84 QT 0.40 QTc 0.43 See Clinical Report link for waveform capture us Unknown Provider POINT OF CARE CARDIOLOGY Final Result Performing Organization Address [facility] Phone Number [facility] [address] [place] [address] * (ABNORMAL) C DIFF INTERPRETATION (12/06/2024 9:57 AM EDT) C Diff Toxin DNA Positive(A) Negative 12/06/2024 1:18 PM EDT [email or web address] [employer] NAP1 Presumptive Neg Presumptive Neg 12/06/2024 1:18 PM EDT [email or web address] GDH Antigen Positive(A) Negative 12/06/2024 1:18 PM EDT [email or web address] C diff toxin A/B Positive(A) Negative 12/06/2024 1:18 PM EDT [email or web address] Stool RECTUM STRUCTURE / Unknown Collection / Unknown 12/06/2024 9:57 AM EDT 12/06/2024 10:05 AM EDT Narrative [email or web address] - 12/06/2024 1:18 PM EDT Toxin producing C diff target DNA sequences detected. Toxins A/B positive. CDI likely. Consider initiation of severity-based CDI therapy according to CDI management guidance. us Brody LINDQUIST MICROBIOLOGY - GENERAL ORDERABLE S Final Result Performing Organization Address [facility] Co de Phone Number [email or web address] [address] [place] [place] [address] , [place] [address] * C DIFF GDH AG AND TOXIN A+B (12/06/2024 9:57 AM EDT) Stool RECTUM STRUCTURE / Unknown Collection / Unknown 12/06/2024 9:57 AM EDT 12/06/2024 10:05 AM EDT Brody LINDQUIST MICROBIOLOGY - GENERAL ORDERABLE S Final Result Performing Organization Address City/[facility]/ZIP Co de Phone Number [facility] [employer] [facility] [address] [facility] , [place] [address] * C DIFF TOXIN DNA (12/06/2024 9:57 AM EDT) Stool RECTUM STRUCTURE / Unknown Collection / Unknown 12/06/2024 9:57 AM EDT 12/06/2024 10:05 AM EDT Brody LINDQUIST MICROBIOLOGY - GENERAL ORDERABLE S Final Result Performing Organization Address City/[facility]/ZIP Co de Phone Number [facility] [employer] [facility] [address] [facility] , [place] [address] * ECG AND WAVEFORMS - TELEMETRY (12/06/2024 7:01 AM EDT) ECG INTERPRET NSR [facility] 12/06/2024 7:01 AM EDT Narrative [facility] - 12/06/2024 8:04 AM EDT (DT)ROUTINE HI 0.17 QRS 0.09 RR 0.78 QT 0.38 QTc 0.42 See Clinical Report link for waveform capture Unknown Provider POINT OF CARE CARDIOLOGY Final Result Performing Organization Address City/[facility]/ZIP Co de Phone Number [facility] [address] [place] [address] * (ABNORMAL) CBC (12/06/2024 5:28 [...] 12/06/2024 6:35 AM EDT [facility] MCHC 33.9 30.7 - 35.5 g/dL 12/06/2024 [...] ORDERABLES Fin al Result [facility] [address] [facility] , [place] [address] * ECG AND WAVEFORMS - TELEMETRY (12/05/2024 7:00 PM EDT) [facility] ECG INTERPRET Sinus Tachycardia [facility] 12/05/2024 7:00 PM EDT Narrative [facility] - 12/05/2024 9:36 PM EDT ROUTNE HI 0.13 QRS 0.12 RR 0.55 QT 0.34 QTc 0.46 See Clinical Report link for waveform capture us Unknown Provider POINT OF CARE CARDIOLOGY Final Result Performing Organization Address [facility] Co de Phone Number [facility] 1 [place] [phone] * (ABNORMAL) HEMOGLOBIN AND HEMATOCRIT (12/05/2024 12:22 PM EDT) [facility] Hgb 9.4(L) 13.7 - 17.5 g/dL 12/05/2024 1:04 PM EDT [facility] [employer] Hct 27.8(L) 40.0 - 51.0 % 12/05/2024 1:04 PM EDT [email or web address] Blood VENOUS BLOOD / Unknown Venipuncture / Unknown 12/05/2024 12:22 PM EDT 12/05/2024 12:27 PM EDT us Juana Shoemaker MD HEMATOLOGY ORDERABLES Final R esult Performing Organization Address [facility] Co de Phone Number [email or web address] [address] [facility] [address], [place] [address] * ECG AND WAVEFORMS - TELEMETRY (12/05/2024 8:03 AM EDT) [facility] ECG INTERPRET NSR [facility] 12/05/2024 8:03 AM EDT Narrative [facility] - 12/05/2024 9:13 AM EDT HI 0.14 QRS 0.08 RR 0.72 QT 0.36 QTc 0.42 See Clinical Report link for waveform capture us Unknown Provider POINT OF CARE CARDIOLOGY Final Result Performing Organization Address [facility] Co de Phone Number [facility] [address] [place] [address] * (ABNORMAL) CBC (12/05/2024 5:55 AM EDT) [facility] WBC 8.0 3.7 - 10.3 x10(3)/mcL 12/05/2024 7:34 AM EDT [email or web address] RBC 2.79(L) 4.60 - 6.10 x10(6)/mcL 12/05/2024 7:34 AM EDT [facility] Hgb 8.4(L) 13.7 - 17.5 g/dL 12/05/2024 7:34 AM EDT [facility] Hct 25.3(L) 40.0 - 51.0 % 12/05/2024 7:34 AM EDT [facility] MCV 90.7 80.0 - 100.0 fL 12/05/2024 7:34 AM EDT [facility] MCH 30.1 26.0 - 34.0 pg 12/05/2024 7:34 AM EDT [facility] MCHC 33.2 30.7 - 35.5 g/dL 12/05/2024 7:34 AM EDT [facility] RDW 14.2 <=14.9 % 12/05/2024 7:34 AM EDT [facility] Platelet 187 155 - 369 x10(3)/mcL 12/05/2024 7:34 AM EDT [facility] MPV 9.9 8.8 - 12.5 fL 12/05/2024 7:34 AM EDT [facility] Blood VENOUS BLOOD / Unknown Venipuncture / Unknown 12/05/2024 5:55 AM EDT 12/05/2024 7:05 AM EDT Sadi Haney MD HEMATOLOGY ORDERABLES Fin al Result [facility] [address] [facility] , [place] [address] * (ABNORMAL) HEMOGLOBIN AND HEMATOCRIT (12/04/2024 7:12 PM EDT) [facility] Hgb 8.9(L) 13.7 - 17.5 g/dL 12/04/2024 7:32 PM EDT [facility] Hct 26.5(L) 40.0 - 51.0 % 12/04/2024 7:32 PM EDT [facility] Blood VENOUS BLOOD / Unknown Venipuncture / Unknown 12/04/2024 7:12 PM EDT 12/04/2024 7:25 PM EDT Sadi Haney MD HEMATOLOGY ORDERABLES Fin al Result Performing Organization Address City/[facility]/ZIP Co de Phone Number [email or web address] [address] [facility], [place] [address] * ECG AND WAVEFORMS - TELEMETRY (12/04/2024 7:00 PM EDT) Pathologist [facility] ECG INTERPRET NSR [facility] 12/04/2024 7:00 PM EDT Narrative [facility] - 12/05/2024 1:26 AM EDT ROUTINE(CW) HI 0.14 QRS 0.07 RR 0.77 QT 0.38 QTc 0.43 See Clinical Report link for waveform capture us Unknown Provider POINT OF CARE CARDIOLOGY Final Result Performing Organization Address [facility] de Phone Number [facility] 1 [place] [phone] * TRANSFUSE RED BLOOD CELLS (12/04/2024 3:25 [...] g/dL 12/04/2024 1:13 PM EDT [email or web address] Hct 24.7(L) 40.0 - 51.0 % 12/04/2024 1:13 PM EDT [email or web address] Blood VENOUS BLOOD / Unknown Venipuncture / Unknown 12/04/2024 12:54 PM EDT 12/04/2024 1:06 PM EDT us Peace Kathy Rea STALLION KEEPER HEMATOLOGY ORDERABLES Fin al Result Performing Organization Address [facility] Co de Phone Number [facility] [employer] [facility] [address] [facility], [place] [address] * ECG AND WAVEFORMS - TELEMETRY (12/04/2024 7:56 AM EDT) ECG INTERPRET NSR [facility] 12/04/2024 7:56 AM EDT Narrative [facility] - 12/04/2024 11:08 PM EDT ROUTINE//AC HI 0.14 QRS 0.11 RR 0.76 QT 0.39 QTc 0.45 See Clinical Report link for waveform capture us Unknown Provider POINT OF CARE CARDIOLOGY Final Result Performing Organization Address [facility] Co de Phone Number [facility] 1 [place] [address] * ECG AND WAVEFORMS - TELEMETRY (12/04/2024 7:56 AM EDT) ECG INTERPRET NSR [facility] 12/04/2024 7:56 AM EDT Narrative [facility] - 12/04/2024 8:01 AM EDT ROUTINE//AC HI 0.14 QRS 0.11 RR 0.76 QT 0.39 QTc 0.45 See Clinical Report link for waveform capture us Unknown Provider POINT OF CARE CARDIOLOGY Final Result Performing Organization Address [facility] Co de Phone Number [facility] [address] [place] [address] * (ABNORMAL) IRON+TIBC (12/04/2024 5:52 AM EDT) Iron 27(L) 50 - 170 mcg/dL 12/05/2024 12:26 PM EDT [facility] [employer] [employer] Transferrin 160(L) 200 - 360 mg/dL 12/05/2024 12:26 PM EDT [facility] [employer], [facility] Transferrin Saturation 12(L) 20 - 50 % 12/05/2024 12:26 PM EDT [facility] TIBC 224(L) 250 - 400 mcg/dL 12/05/2024 12:26 PM EDT [facility] Blood VENOUS BLOOD / Unknown Venipuncture / Unknown 12/04/2024 5:52 AM EDT 12/04/2024 6:01 AM EDT Juana Shoemaker MD CHEMISTRY ORDERABLES Final Re sult [facility] [address] [facility] , [place] [address] * (ABNORMAL) BASIC METABOLIC PANEL (12/04/2024 5:52 [...] recommended by the National Kidney Foundation - [place] [employer] of Nephrology Task Force. Blood VENOUS BLOOD / Unknown Venipuncture / Unknown 12/04/2024 5:52 AM EDT 12/04/2024 6:01 AM EDT Sadi Haney MD CHEMISTRY ORDERABLES Nadiya nichols Result [facility] [address] [facility] , [address] [place] [phone] * (ABNORMAL) CBC WITH DIFF (12/04/2024 5:52 [...] 12/04/2024 6:13 AM EDT [facility] Comment:Neutrophils equals s egs plus bands Imm Gran% 0.6 % 12/04/2024 6:13 AM EDT [facility] Comment:Automated count of m etamyelocytes, myelocytes and promyelocytes. Lymph Percent 22.9 % 12/04/2024 6:13 AM EDT [facility] [place] Percent 10.4 % 12/04/2024 6:13 AM EDT [facility] Eos Percent 2.6 % 12/04/2024 6:13 AM EDT [facility] Baso Percent 0.3 % 12/04/2024 6:13 AM EDT [facility] Neut # 4.1 1.6 - 6.1 x10(3)/[facility] 12/04/2024 6:13 AM EDT [email or web address] Comment:Neutrophils equals s egs plus bands IMMGRAN# 0.0 0.0 - 0.1 x10(3)/[facility] 12/04/2024 6:13 AM EDT [email or web address] Comment:Automated count of m etamyelocytes, myelocytes and promyelocytes. An absolute IG <0.1 is reported as 0.0. Lymph # 1.5 1.2 - 3.9 x10(3)/[facility] 12/04/2024 6:13 AM EDT [facility] [place] # 0.7 0.3 - 0.9 x10(3)/[facility] 12/04/2024 6:13 AM EDT [facility] Eos# 0.2 0.0 - 0.5 x10(3)/[facility] 12/04/2024 6:13 AM EDT [email or web address] Baso # 0.0 0.0 - 0.1 x10(3)/[facility] 12/04/2024 6:13 AM EDT [email or web address] Blood VENOUS BLOOD / Unknown Venipuncture / Unknown 12/04/2024 5:52 AM EDT 12/04/2024 6:01 AM EDT us Sadi Haney MD HEMATOLOGY ORDERABLES Fin al Result [facility] [address] [place] [address] , [address] [place] [phone] * ECG AND WAVEFORMS - TELEMETRY (12/03/2024 7:00 PM EDT) ECG INTERPRET NSR [facility] 12/03/2024 7:00 PM EDT Narrative [facility] - 12/03/2024 8:34 PM EDT ROUTINE(CW) HI 0.15 QRS 0.06 RR 0.60 QT 0.27 QTc 0.35 See Clinical Report link for waveform capture us Unknown Provider POINT OF CARE CARDIOLOGY Final Result Performing Organization Address [facility]/ZIP Co de Phone Number [facility] [address] [place] [address] * (ABNORMAL) HEMOGLOBIN AND HEMATOCRIT (12/03/2024 10:44 AM EDT) [facility] Hgb 7.9(L) 13.7 - 17.5 g/dL 12/03/2024 11:50 AM EDT [facility] Hct 23.7(L) 40.0 - 51.0 % 12/03/2024 11:50 AM EDT [facility] [employer] Blood VENOUS BLOOD / Unknown Venipuncture / Unknown 12/03/2024 10:44 AM EDT 12/03/2024 10:54 AM EDT us Meng Chen MD HEMATOLOGY ORDERABLES Final Res ult Performing Organization Address City/[facility]/ZIP Co de Phone Number [facility] [employer] [address] , [place] [address] * ECG AND WAVEFORMS - TELEMETRY (12/03/2024 7:00 AM EDT) ECG INTERPRET R [facility] 12/03/2024 7:00 AM EDT Narrative [facility] - 12/03/2024 7:58 AM EDT [place] ROUTINE HI 0.14 QRS 0.09 RR 0.66 QT 0.35 See Clinical Report link for waveform capture us Unknown Provider POINT OF CARE CARDIOLOGY Final Result [facility] [address] [place] [address] * (ABNORMAL) HEMOGLOBIN AND HEMATOCRIT (12/03/2024 4:48 AM EDT) Hgb 8.0(L) 13.7 - 17.5 g/dL 12/03/2024 5:08 AM EDT [email or web address] [employer] Hct 24.4(L) 40.0 - 51.0 % 12/03/2024 5:08 AM EDT [email or web address] Blood VENOUS BLOOD / Unknown Venipuncture / Unknown 12/03/2024 4:48 AM EDT 12/03/2024 4:58 AM EDT Meng Chen MD HEMATOLOGY ORDERABLES Final Res ult [facility] [employer] [address], [place] [address] * TRANSFUSE RED BLOOD CELLS (12/03/2024 4:00 AM EDT) Sadi Haney MD NURSING TREATMENT ORDERAB LES - BLOOD ADMIN Final Result * TRANSFUSE RED BLOOD CELLS (12/03/2024 4:00 AM EDT) Sadi Haney MD NURSING TREATMENT ORDERAB LES - BLOOD ADMIN Final Result * (ABNORMAL) TROPONIN-T HIGH SENSITIVITY 6 HR (12/03/2024 3:40 AM EDT) [id number]-[id number] 6HR 37(H) <22 ng/L 12/03/2024 4:43 AM EDT [email or web address] hs-cTnT 6Hr Delta from Baseline 11 <12 ng/L 12/03/2024 4:43 AM EDT [email or web address] Blood VENOUS BLOOD / Unknown Venipuncture / Unknown 12/03/2024 3:40 AM EDT 12/03/2024 4:11 AM EDT Narrative [facility] - 12/03/2024 4:43 AM EDT Ingestion of josé miguel doses of biotin (>5 mg/day) taken within 8 hours of drawing blood sample can interfere with this immunoassay test. us Rachna Wood STALLION KEEPER CHEMISTRY ORDERABLES Fin al Result [facility] [address] [facility] , [place] [address] * (ABNORMAL) BASIC METABOLIC PANEL (12/03/2024 3:40 AM EDT) Sodium 142 136 - 145 mmol/L 12/03/2024 4:42 AM EDT [facility] Potassium 4.2 3.5 - 5.0 mmol/L 12/03/2024 4:42 AM EDT [facility] Chloride 111(H) 98 - 107 mmol/L 12/03/2024 4:42 AM EDT [facility] Total CO2 21(L) 22 - 29 [...] recommended by the National Kidney Foundation - [place] [employer] of Nephrology Task Force. Blood VENOUS BLOOD / Unknown Venipuncture / Unknown 12/03/2024 3:40 AM EDT 12/03/2024 4:11 AM EDT Sadi Haney MD CHEMISTRY ORDERABLES Nadiya nichols Result [facility] [address] [facility], [place] [address] * (ABNORMAL) CBC WITH DIFF (12/03/2024 3:40 [...] % 12/03/2024 4:22 AM EDT [facility] [place] Percent 11.5 % 12/03/2024 4:22 AM EDT [facility] Eos Percent 0.6 % 12/03/2024 4:22 AM EDT [facility] Baso Percent 0.2 % 12/03/2024 4:22 AM EDT [facility] Neut # 6.7(H) 1.6 - 6.1 x10(3)/[facility] 12/03/2024 4:22 AM EDT [facility] Comment:Neutrophils equals s egs plus bands IMMGRAN# 0.0 0.0 - 0.1 x10(3)/[facility] 12/03/2024 4:22 AM EDT [facility] Comment:Automated count of m etamyelocytes, myelocytes and promyelocytes. An absolute IG <0.1 is reported as 0.0. Lymph # 1.6 1.2 - 3.9 x10(3)/[facility] 12/03/2024 4:22 AM EDT [facility] [place] # 1.1(H) 0.3 - 0.9 x10(3)/[facility] 12/03/2024 4:22 AM EDT [facility] Eos# 0.1 0.0 - 0.5 x10(3)/[facility] 12/03/2024 4:22 AM EDT [facility] Baso # 0.0 0.0 - 0.1 x10(3)/[facility] 12/03/2024 4:22 AM EDT [facility] Blood VENOUS BLOOD / Unknown Venipuncture / Unknown 12/03/2024 3:40 AM EDT 12/03/2024 4:11 AM EDT Sadi Haney MD HEMATOLOGY ORDERABLES Fin al Result [facility] [address] [facility] , [place] [address] * TRANSFUSE RED BLOOD CELLS (12/03/2024 1:03 AM EDT) Sadi Haney MD NURSING TREATMENT ORDERAB LES - BLOOD ADMIN Final Result * TRANSFUSE RED BLOOD CELLS (12/03/2024 1:03 AM EDT) Sadi Haney MD NURSING TREATMENT ORDERAB LES - BLOOD ADMIN Final Result * (ABNORMAL) TROPONIN-T HIGH SENSITIVITY 2HR (12/02/2024 10:14 PM EDT) Pathologist [facility] cc-qPjjcysoi-[id number] 2HR 33(H) <22 ng/L 12/02/2024 11:02 PM EDT [facility] hs-cTnT 2Hr Delta from Baseline 7(H) <4 ng/L 12/02/2024 11:02 PM EDT [facility] Blood VENOUS BLOOD / Unknown Venipuncture / Unknown 12/02/2024 10:14 PM EDT 12/02/2024 10:33 PM EDT Narrative [facility] - 12/02/2024 11:02 PM EDT Ingestion of josé miguel doses of biotin (>5 mg/day) taken within 8 hours of drawing blood sample can interfere with this immunoassay test. Rachna Wood [employer]PER CHEMISTRY ORDERABLES Fin al Result [facility] [address] [place] [place] [address] , [place] [address] * CT ABDOMEN PELVIS W CONTRAST (12/02/2024 [...] BASELINE W/ REFLEX (12/02/2024 7:34 PM EDT) zh-bNneilclx-P 26(H) <22 ng/L 12/02/2024 8:05 PM EDT [email or web address] Blood VENOUS BLOOD / Unknown Venipuncture / Unknown 12/02/2024 7:34 PM EDT 12/02/2024 7:37 PM EDT Narrative [facility] - 12/02/2024 8:05 PM EDT Ingestion of josé miguel doses of biotin (>5 mg/day) taken within 8 hours of drawing blood sample can interfere with this immunoassay test. 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1975 Requested By: RACHNA Gutierrez Order Number: [id number] Reading MD: Edelmira Ramsey DO Measurements Intervals Calypso Rate: 123 P: 131 HI: 167 QRS: 1 QRSD: 90 T: 72 QT: 319 QTc: 457 Interpretive Statements SINUS TACHYCARDIA NONSPECIFIC ST & T-WAVE ABNORMALITY ABNORMAL RHYTHM ECG Electronically Signed On 12-03-2024 11:25:42 EDT by Edelmira Ramsey DO Narrative Procedure Note Edelmira Ramsey DO - 12/03/2024 ROL[facility] Mac Test Date: 2024-12-02 Pat Name: ALEX HOFFMAN Department: DEPID Room: 73 Gender: Male 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1975 Requested By: RACHNA Gutierrez Order Number: [id number] Reading MD: Edelimra Ramsey DO Measurements Intervals Calypso Rate: 123 P: 131 HI: 167 QRS: 1 QRSD: 90 T: 72 QT: 319 QTc: 457 Interpretive Statements SINUS TACHYCARDIA NONSPECIFIC ST & T-WAVE ABNORMALITY ABNORMAL RHYTHM ECG Electronically Signed On 12-03-2024 11:25:42 EDT by Edelmira Ramsey DO us Rachna Wood STALLION KEEPER IMG ECG ORDERABLES Final Result * ECG AND WAVEFORMS - TELEMETRY (12/02/2024 7:00 PM EDT) Pathologist [facility] ECG INTERPRET Sinus Tachycardia [facility] 12/02/2024 7:00 PM EDT Narrative [facility] - 12/02/2024 7:47 PM EDT ROUTINE(CW) HI 0.10 QRS 0.05 RR 0.40 QT 0.27 QTc 0.43 See Clinical Report link for waveform capture us Unknown Provider POINT OF CARE CARDIOLOGY Final Result [facility] [address] [place] [address] * (ABNORMAL) HEMOGLOBIN AND HEMATOCRIT (12/02/2024 6:17 PM EDT) Hgb 7.5(L) 13.7 - 17.5 g/dL 12/02/2024 6:54 PM EDT [facility] Hct 22.9(L) 40.0 - 51.0 % 12/02/2024 6:54 PM EDT [facility] Blood VENOUS BLOOD / Unknown Venipuncture / Unknown 12/02/2024 6:17 PM EDT 12/02/2024 6:25 PM EDT us Meng Chen MD HEMATOLOGY ORDERABLES Final Res ult Performing Organization Address City/[facility]/ZIP Co de Phone Number [facility] [address] [facility] , [address] [place] [phone] * REPEAT LACTIC ACID (12/02/2024 6:17 PM EDT) Lactic Acid 1.6 0.5 - 1.9 mmol/L 12/02/2024 6:44 PM EDT [facility] Blood VENOUS BLOOD / Unknown Venipuncture / Unknown 12/02/2024 6:17 PM EDT 12/02/2024 6:25 PM EDT us Meng Chen MD CHEMISTRY ORDERABLES Final Resu lt Performing Organization Address [facility] Co de Phone Number [facility] [address] [facility] , [place] [address] * (ABNORMAL) REPEAT LACTIC ACID (12/02/2024 3:49 PM EDT) Lactic Acid 2.9(H) 0.5 - 1.9 mmol/L 12/02/2024 4:29 PM EDT [facility] Blood VENOUS BLOOD / Unknown Venipuncture / Unknown 12/02/2024 3:49 PM EDT 12/02/2024 3:55 PM EDT us Meng Chen MD CHEMISTRY ORDERABLES Final Resu lt Performing Organization Address City/[facility]/ZIP Co de Phone Number [facility] [facility] [address] [facility] , [place] [address] * ECG AND WAVEFORMS - TELEMETRY (12/02/2024 3:11 PM EDT) ECG INTERPRET Sinus Tachycardia [facility] Comment: notified 12/02/2024 3:11 PM EDT Narrative [facility] - 12/02/2024 3:13 PM EDT [place] ROUTINE See Clinical Report link for waveform capture Unknown Provider POINT OF CARE CARDIOLOGY Final Result Performing Organization Address City/[facility]/ZIP Co de Phone Number [facility] [address] [place] [phone] * (ABNORMAL) LACTIC ACID (12/02/2024 1:42 PM EDT) [facility] Lactic Acid 3.2(H) 0.5 - 1.9 mmol/L 12/02/2024 2:16 PM EDT [email or web address] Blood VENOUS BLOOD / Unknown Venipuncture / Unknown 12/02/2024 1:42 PM EDT 12/02/2024 1:52 PM EDT Meng Chen MD CHEMISTRY ORDERABLES Final Resu lt Performing Organization Address City/[facility] Co de Phone Number [email or web address] [address] [facility] , [place] [address] * BLOOD CULTURE (NO STAIN) (12/02/2024 1:42 PM EDT) [facility] Culture Result No Growth at 120 hours. BLOOD CULTURE (NO STAIN) 12/07/2024 3:00 PM EDT [email or web address] Blood VENOUS BLOOD / Unknown Venipuncture / Unknown 12/02/2024 1:42 PM EDT 12/02/2024 1:53 PM EDT Meng Chen MD MICROBIOLOGY - GENERAL ORDERABL ES Final Result Performing Organization Address City/[facility]/ZIP Co de Phone Number [email or web address] [address] [facility] , [place] [address] * ECG AND WAVEFORMS - TELEMETRY (12/02/2024 12:27 PM EDT) Pathologist [facility] ECG INTERPRET Sinus Tachycardia [facility] Comment:aysmptomatic on asse ssment 12/02/2024 12:2 7 PM EDT Narrative [facility] - 12/02/2024 12:50 PM EDT [place] ROUTINE HI 0.13 QRS 0.10 RR 0.50 QT 0.32 See Clinical Report link for waveform capture us Unknown Provider POINT OF CARE CARDIOLOGY Final Result Performing Organization Address City/[facility]/ZIP Co de Phone Number [facility] [address] [place] [phone] * (ABNORMAL) REPEAT LACTIC ACID (12/02/2024 10:59 AM EDT) Pathologist [facility] Lactic Acid 2.8(H) 0.5 - 1.9 mmol/L 12/02/2024 11:16 AM EDT [facility] Blood VENOUS BLOOD / Unknown Venipuncture / Unknown 12/02/2024 10:59 AM EDT 12/02/2024 10:59 AM EDT Sundar Kessler APRN CHEMISTRY ORDERABLES Final Result Performing Organization Address [facility] Co de Phone Number [facility] [address] [place] [phone] * URINE CULTURE (NO STAIN) (12/02/2024 10:53 AM EDT) Pathologist [facility] Culture No growth at 30 hours. 12/04/2024 6:38 AM EDT [email or web address] Urine URINARY BLADDER STRUCTURE / Unknown 12/02/2024 10:53 AM EDT 12/02/2024 11:12 AM EDT Sundar Kessler APRN MICROBIOLOGY - GENER AL ORDERABLES Final Result Performing Organization Address City/[facility] Co de Phone Number [facility] [facility] [address] [facility], [place] [address] * EXTRA SWENSON URINE CX (12/02/2024 10:53 AM EDT) Urine URINE SPECIMEN OBTAINED VIA INDWELLING URINARY CATHETER / Unknown 12/02/2024 10:53 AM EDT 12/02/2024 10:59 AM EDT Sundar Kessler STALLION KEEPER MICROBIOLOGY - GENER AL ORDERABLES Final Result [place] [phone] * (ABNORMAL) URINALYSIS REFLEX (12/02/2024 10:53 AM [...] /LPF 12/02/2024 11:12 AM EDT [email or web address] UA Bacteria 1+(A) Negative /HPF 12/02/2024 11:12 AM EDT [email or web address] [email or web address] Urine URINARY BLADDER STRUCTURE / Unknown 12/02/2024 10:53 AM EDT 12/02/2024 10:59 AM EDT Sundar Kessler STALLION KEEPER URINE ORDERABLES Fin al Result Performing Organization Address City/[facility]/ZIP Co de Phone Number [facility] [employer] [address] , [place] [address] * BLOOD CULTURE (NO STAIN) (12/02/2024 10:51 AM EDT) Culture Result No Growth at 120 hours. BLOOD CULTURE (NO STAIN) 12/07/2024 1:00 PM EDT [email or web address] [employer] Blood VENOUS BLOOD / Unknown Venipuncture / Unknown 12/02/2024 10:51 AM EDT 12/02/2024 10:51 AM EDT Meng Chen MD MICROBIOLOGY - GENERAL ORDERABL ES Final Result Performing Organization Address [facility]/ZIP Co de Phone Number [facility] [email or web address] , [place] [address] * XR CHEST AP PORTABLE [...] g/dL 12/02/2024 10:12 AM EDT [email or web address] [employer] Hct 24.7(L) 40.0 - 51.0 % 12/02/2024 10:12 AM EDT [email or web address] [employer] Blood VENOUS BLOOD / Unknown Venipuncture / Unknown 12/02/2024 9:22 AM EDT 12/02/2024 9:48 AM EDT Peace Rea STALLION KEEPER HEMATOLOGY ORDERABLES Fin al Result [email or web address] [address] [facility], [place] [address] * (ABNORMAL) REPEAT LACTIC ACID (12/02/2024 9:22 AM EDT) [facility] Lactic Acid 2.3(H) 0.5 - 1.9 mmol/L 12/02/2024 10:00 AM EDT [facility] Blood VENOUS BLOOD / Unknown Venipuncture / Unknown 12/02/2024 9:22 AM EDT 12/02/2024 9:46 AM EDT [facility] CHEMISTRY ORDERABLES Final Result [facility] [address] [place] [address] * (ABNORMAL) TROPONIN-T HIGH SENSITIVITY 2HR (12/02/2024 9:22 AM EDT) [facility] fg-aDytutshj-D 2HR 26(H) <22 ng/L 12/02/2024 10:04 AM EDT [facility] hs-cTnT 2Hr Delta from Baseline -1 <4 ng/L 12/02/2024 10:04 AM EDT [facility] Blood VENOUS BLOOD / Unknown Venipuncture / Unknown 12/02/2024 9:22 AM EDT 12/02/2024 9:46 AM EDT Narrative [facility] - 12/02/2024 10:04 AM EDT Ingestion of josé miguel doses of biotin (>5 mg/day) taken within 8 hours of drawing blood sample can interfere with this immunoassay test. [employer] CHEMISTRY ORDERABLES Final Result [facility] [address] [place] [address] * (ABNORMAL) TROPONIN-T HIGH SENSITIVITY BASELINE W/ REFLEX (12/02/2024 7:08 AM EDT) ej-dEselxzix-J 27(H) <22 ng/L 12/02/2024 7:42 AM EDT [facility] Blood VENOUS BLOOD / Unknown Venipuncture / Unknown 12/02/2024 7:08 AM EDT 12/02/2024 7:14 AM EDT Narrative [facility] - 12/02/2024 7:42 AM EDT Ingestion of josé miguel doses of biotin (>5 mg/day) taken within 8 hours of drawing blood sample can interfere with this immunoassay test. Sundar Kessler APRN CHEMISTRY ORDERABLES Final Result Performing Organization Address City/[facility]/ZIP Co de Phone Number [facility] [employer] [address] , [place] [address] * (ABNORMAL) REPEAT LACTIC ACID (12/02/2024 7:08 AM EDT) Lactic Acid 3.1(H) 0.5 - 1.9 mmol/L 12/02/2024 7:35 AM EDT [facility] Blood VENOUS BLOOD / Unknown Venipuncture / Unknown 12/02/2024 7:08 AM EDT 12/02/2024 7:15 AM EDT Sundar Kessler APRN CHEMISTRY ORDERABLES Final Result Performing Organization Address City/[facility]/ZIP Co de Phone Number [facility] [employer] [address] , [place] [address] * EK EKG 12 LEAD (12/02/2024 7:01 AM EDT) Anatomical Region Laterality Modality Electrocardiogra phy 12/02/2024 7:17 AM EDT Impressions 12/02/2024 1:57 PM EDT [facility] Test Date: 2024-12-02 Pat Name: ALEX HOFFMAN Department: DEPID Room: 7308 Gender: Male 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 [facility] Test Date: 2024-12-02 Pat Name: ALEX HOFFMAN Department: DEPID Room: 7308 Gender: Male Liquified Natural Gas Technician: Murray : 1975 Requested By: SUNDAR MORENO Order Number: [id number] Reading MD: Forrest Johnston MD Measurements Intervals Calypso Rate: 92 P: 46 HI: 132 QRS: 13 QRSD: 85 T: 33 QT: 367 QTc: 454 Interpretive Statements SINUS RHYTHM Electronically Signed On 12-02-2024 13:57:21 EDT by Forrest Johnston MD Sundar Kessler STALLION KEEPER IMG ECG ORDERABLES F inal Result * (ABNORMAL) PROCALCITONIN (12/02/2024 5:05 AM EDT) Procalcitonin 0.62(H) <=0.49 ng/mL 12/02/2024 5:52 AM EDT [email or web address] Blood VENOUS BLOOD / Unknown Venipuncture / Unknown 12/02/2024 5:05 AM EDT 12/02/2024 5:11 AM EDT Narrative [facility] - 12/02/2024 5:52 AM EDT Procalcitonin <0.50 [...] progression to severe sepsis and/or septic shock. Junarn Endorphin STALLION KEEPER CHEMISTRY ORDERABLES Final Result Performing Organization Address [facility] Co de Phone Number [facility] [address] [place] [place] [address] , [place] [address] * (ABNORMAL) LACTIC ACID (12/02/2024 5:04 AM EDT) Lactic Acid 3.5(H) 0.5 - 1.9 mmol/L 12/02/2024 5:31 AM EDT [facility] Blood VENOUS BLOOD / Unknown Venipuncture / Unknown 12/02/2024 5:04 AM EDT 12/02/2024 5:11 AM EDT [facility] CHEMISTRY ORDERABLES Final Result Performing Organization Address [facility] Co de Phone Number [email or web address] [address] [place] [place] [address] , [place] [address] * CREATININE BODY FLUID (12/02/2024 4:12 AM EDT) Creatinine BF 1.15 0.67 - 1.30 mg/dL 12/02/2024 5:03 AM EDT [facility] Body Fluid ABDOMEN / Unknown Collection / Unknown 12/02/2024 4:12 AM EDT 12/02/2024 4:29 AM EDT Narrative [facility] - 12/02/2024 5:03 AM EDT A reference interval for this test has not been established for body fluid specimens. The reference range listed reflects normal concentration of this analyte in blood. Sadi Haney MD BODY FLUIDS AND STOOLS OR DERABLES Final Result [facility] [address] [facility] , [place] [address] * (ABNORMAL) CBC WITH DIFF [...] 12/02/2024 4:21 AM EDT [facility] [place] Percent 10.4 % 12/02/2024 4:21 AM EDT [facility] Eos Percent 0.1 % 12/02/2024 4:21 AM EDT [facility] Baso Percent 0.1 % 12/02/2024 4:21 AM EDT [facility] Neut # 17.9(H) 1.6 - 6.1 x10(3)/mc L 12/02/2024 4:21 AM EDT [facility] Comment:Neutrophils equals s egs plus bands IMMGRAN# 0.2(H) 0.0 - 0.1 x10(3)/mc L 12/02/2024 4:21 AM EDT [facility] Comment:Automated count of m etamyelocytes, myelocytes and promyelocytes. An absolute IG <0.1 is reported as 0.0. Lymph # 1.4 1.2 - 3.9 x10(3)/mc L 12/02/2024 4:21 AM EDT [facility] [place] # 2.3(H) 0.3 - 0.9 x10(3)/mc L 12/02/2024 4:21 AM EDT [facility] Eos# 0.0 0.0 - 0.5 x10(3)/mc L 12/02/2024 4:21 AM EDT [facility] Baso # 0.0 0.0 - 0.1 x10(3)/mc L 12/02/2024 4:21 AM EDT [facility] RBC Morph Consistent with Red Cell Indices no units 12/02/2024 4:21 AM EDT [facility] Blood VENOUS BLOOD / Unknown Venipuncture / Unknown 12/02/2024 3:47 AM EDT 12/02/2024 3:50 AM EDT us Sadi Haney MD HEMATOLOGY ORDERABLES Fin al Result [facility] [address] [facility] , [address] [place] [id number] * (ABNORMAL) BASIC METABOLIC PANEL (12/02/2024 3:46 AM EDT) Sodium 136 136 - 145 mmol/L 12/02/2024 4:07 AM EDT [facility] Potassium 4.8 3.5 - 5.0 mmol/L 12/02/2024 4:07 AM EDT [facility] Chloride 103 98 - 107 mmol/L 12/02/2024 4:07 AM EDT [facility] Total CO2 17(L) 22 - 29 mmol/L 12/02/2024 4:07 AM EDT [facility] Anion Gap 16 7 - 16 mmol/L 12/02/2024 4:07 AM EDT [facility] Calcium 8.0(L) 8.6 - 10.4 mg/dL 12/02/2024 4:07 AM EDT [facility] Glucose Lvl 156(H) 70 - 99 mg/dL 12/02/2024 4:07 AM EDT [facility] BUN 21(H) 6 - 20 mg/dL 12/02/2024 4:07 AM EDT [facility] Creatinine 1.61(H) 0.67 - 1.30 mg/dL 12/02/2024 4:07 AM EDT [facility] eGFR (CKD-EPIcr 2020) 52(L) >=60 mL/min/1.7 3 m2 12/02/2024 4:07 AM EDT [facility] Comment:Estimated GFR was ca lculated using the CKD-EPIcr (2020) equation refit without race. The equation is recommended by the National Kidney Foundation - [place] [employer] of Nephrology Task Force. Blood VENOUS BLOOD / Unknown Venipuncture / Unknown 12/02/2024 3:46 AM EDT 12/02/2024 3:50 AM EDT us Peace Rea APRN CHEMISTRY ORDERABLES Nadiya l Result [facility] [address] [place] [address] * (ABNORMAL) GLUCOSE METER POC (12/02/2024 2:58 AM EDT) Glucose Meter POC 148(H) 70 - 100 mg/dL 12/02/2024 3:00 AM EDT [facility] Sample Type Capillary 12/02/2024 3:00 AM EDT [facility] Patient Status Non-Critical Patient 12/02/2024 3:00 AM EDT [facility] Blood BLOOD SPECIMEN / Unknown 12/02/2024 2:58 AM EDT 12/02/2024 3:00 AM EDT Sadi Haney MD POINT OF CARE TEST ORDERA BLES Final Result [facility] [address] [place], [place] [id number] * PATHOLOGY TISSUE REQUEST (12/01/2024 3:36 PM EDT) CASE REPORT Surgical Pathology Case: [id number] Authorizing Provider: Sadi Haney MD Collected: 12/01/2024 1536 Ordering Location: [facility] Received: 12/01/2024 1631 Pathologist: Gayle Bahena MD Specimen: Kidney, Left, Left kidney and ureter,along with bladder cuff 12/05/2024 4:20 PM EDT [facility] FINAL DIAGNOSIS Kidney and ureter, left radical nephroureterectomy with bladder cuff: - Ureter: - Noninvasive low-grade papillary urothelial carcinoma, 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 - Resection margins negative for carcinoma - Kidney and bladder cuff with chronic inflammation, negative for carcinoma. - Adrenal gland negative for carcinoma. - See synoptic report for details. 12/05/2024 4:20 PM EDT [facility] at 1620 EDT GROSS [...] 0.5 to 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 Sociology Teacher sections are submitted as follows: A1-A3 = entire mass at UPJ to include adjacent uninvolved proximal ureter A4 = remaining proximal ureter A5-A6 = brewery representative dilated calyces A7-A8 equal all distal ureter with perpendicular bladder margin A9 = vascular margins from kidney A10 = all areas suggestive of adrenal parenchyma A11 = 1 bisected lymph node candidate A12 = 1 trisected lymph node candidate A13-A14 = largest lymph node candidate, trisected RIK Stover PA (ASCP) 12/05/2024 4:20 PM EDT [facility] MICROSCOPIC DESCRIPTION The microscopic examination may have been rendered in whole, or in part, by analyzing high-resolution digital images (whole slide images) on the [employer] Digital Pathology platform validated at [facility]. 12/05/2024 4:20 PM EDT [facility] BEST TISSUE BLOCK FOR ANCILLARY STUDIES A3 12/05/2024 4:20 PM T [facility] SYNOPTIC REPORT CHECKLIST URETER, RENAL PELVIS: Resection [...] limited to this pathology report. pT Category: barrel rifler button pN Category: pN not assigned (no nodes submitted or found) ADDITIONAL FINDINGS Pathologic Findings in Ipsilateral Nonneoplastic Renal Tissue: None identified 12/05/2024 4:20 PM EDT [facility] EMBEDDED IMAGES 12/05/2024 4:20 PM EDT [facility] Tissue LEFT KIDNEY STRUCTURE / Unknown 12/01/2024 3:36 PM EDT 12/01/2024 4:31 PM EDT Sadi Haney MD PATHOLOGY ORDERABLES Nadiya l Result [facility] [address] [place], [place] [id number] [place] [address] * US ANES GUIDANCE FOR POC (12/01/2024 [...] Previous History OK 12/01/2024 9:30 AM EDT [facility] Blood VENOUS BLOOD / Unknown Venipuncture / Unknown 12/01/2024 9:22 AM EDT 12/01/2024 9:26 AM EDT Sadi Haney MD BLOOD BANK ORDERABLES Fin al Result Performing Organization Address City/[facility]/ZIP Co de Phone Number [facility] [place] [address] * ABORH (12/01/2024 9:22 AM EDT) ABORH Int B POS 12/01/2024 9:5 7 AM EDT [facility] Blood VENOUS BLOOD / Unknown Venipuncture / Unknown 12/01/2024 9:22 AM EDT 12/01/2024 9:26 AM EDT Sadi Haney MD BLOOD BANK ORDERABLES Fin al Result Performing Organization Address City/[facility]/[place] [address] * RED BLOOD CELLS REQUEST (11/23/2024 2:10 PM EDT) Product Code [id number] [facility] BANK Unit Number [id number] [facility] Crossmatch Interp Compatible [facility] Dispense Status TRANSFUSED [facility] Blood Expiration Date [id number] [facility] BANK ISBT 128 Type 7300 [facility] BLOOD [facility] Blood Unit Volume 300 ml [facility]LOOD [facility] BA CODING SYSTEM [id number] [facility]LOOD [facility] Blood Type (Unit) B POS [facility] Blood 11/23/2024 2:10 PM EDT 11/23/2024 2:17 PM EDT Peace Rea STALLION KEEPER BLOOD PRODUCT ORDERS Nadiya l Result Performing Organization Address [facility] de Phone Number [facility] BLOOD [address] [address] * RED BLOOD CELLS REQUEST (11/23/2024 2:10 PM EDT) Product Code [id number] [facility] BLOOD B[facility] Unit Number [id number] [facility] Crossmatch Interp Compatible [facility] Dispense Status TRANSFUSED [facility] BLOOD [facility] Blood Expiration Date [facility] ISBT 128 Type [address] [facility] BLOOD BANK Blood Unit Volume 300 ml [facility] BA CODING SYSTEM [id number] [facility] Blood Type (Unit) B POS [facility] Product Code [id number] [facility] Unit Number [id number] [facility] Crossmatch Interp Compatible [facility] Dispense Status TRANSFUSED [facility] BLOOD [facility] Blood Expiration Date [facility] ISBT 128 Type 7300 [facility] Blood Unit Volume 300 ml [facility] BA CODING SYSTEM [id number] [facility] Blood Type (Unit) B POS [facility] Blood 11/23/2024 2:10 PM EDT 11/23/2024 2:17 PM EDT Sadi Haney MD BLOOD PRODUCT ORDERS Nadiya l Result Performing Organization Address [facility] Co de Phone Number [facility] [address] [address] documented in this encounter Visit Diagnoses Diagnosis Ureteral mass- Primary Unspecified disorder of kidney and ureter Preop testing Preoperative examination, unspecified 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 Sepsis without acute [...] phenoL (CHLORASEPTIC) 1.4 % oral spray 1 [place] 1 [place], Oral, EVERY 2 HOURS PRN, Starting on Wed12/04/24 at 2110, Until Wed12/08/24 at 1550, Sore Throat Given 12/04/2024 9:58 PM EDT 1 [place] Saccharomyces boulardii (FLORASTOR) capsule 250 mg 250 [...] Zeinab Deutsch RN) 0418 (Given - Provider: Zeinba Deutsch RN) 0543 (Given - Provider: [place] [...] phenoL (CHLORASEPTIC) 1.4 % oral spray 1 [place](Linked Group 3) 1 [place], Oral, EVERY 2 HOURS PRN, Starting on [...] oral spray 1 SprayJump to med 1 [place], Oral, EVERY 2 HOURS PRN, Starting on [...] documented as of this encounter Care Teams Operations Expert Relationship Specialty Start Date End Date Reyna Perez APRN [address] [facility] [address] [place] [id number] PCP - General Nurse Practitioner 10/27/24 documented as of this encounter
--- OUTSIDE RECORDS SUMMARY | 2024-12-01 09:50 | XMS_ITS | Encounter Summary ---
Author Organization [place] [address] Care Team Providers Care Sound Assistant Name Role Phone Reyna Perez DEMETRIUS Primary Care Provider [phone] Reason for Visit * Auth/Cert/Inpt Specialty Diagnoses / Procedures Referred By Juan R acosta Referred To Contact Diagnoses Ureteral mass Ureteral mass [N28.89] Procedures OR LAPAROSCOPY RADICAL NEPHRECTOMY OR CYSTOURETHROSCOPY W/DEST &/RMVL MED BLADDER EMERY OR LAPAROSCOPY NEPHRECTOMY W/TOTAL URETERECTOMY LEFT DAVINCI ROBOTIC NEPHROURETERECTOMY, CYSTOSCOPY, TRANSURETHRAL RESECTION OF THE BLADDER TUMOR Referral ID Status Reason Start Date Expiration Date Visits Re quested Visits Authorized [id number] 1 1 Encounter Details Date Type Department Care Team (Late st Contact Info) Description 12/01/2024 9:50 AM EDT Ancillary Procedure EDG SAME DAY SURGERY [facility] [place] [address] Sadi Haney MD [address] [facility] [address] [place], [place] [phone] Social History Tobacco Use Types Packs/Day Years [...] of Assessment Author 0 12/01/2024 8:00 PM EDViri Healy RN * Drug Screening Score Answer Date [...] No Risk 12/01/2024 8:11 PM EDT Viri eSgura RN * [place] Suicide Severity Rating Scale (Q shift for [...] Description 01/23/2025 9:00 AM EDT Office Visit [facility] Cardiac Surgeons [address] [place] [address] Logan Kenny MD [address] [place] [address] [place] [address] documented as of this encounter Procedures [...] on filedocumented in this encounter Care Teams Sound Assistant Relationship Specialty Start Date End Date Reyna Perez APRN [address] [place] [address] [address] [place] [phone] PCP - General Nurse Practitioner 10/27/24 documented as of this encounter
--- OUTSIDE RECORDS SUMMARY | 2024-12-01 10:35 | XMS_ITS | Encounter Summary ---
Author [place] [address] Care Team Providers Care Squilgeer Name Role Phone Reyna Perez Jonathan ROMO Primary Care Provider [phone] Reason for Visit * Auth/Cert/Inpt Specialty Diagnoses / Procedures Referred By Juan R acosta Referred To Contact Diagnoses Ureteral mass Ureteral mass [N28.89] Procedures MD LAPAROSCOPY RADICAL NEPHRECTOMY MD CYSTOURETHROSCOPY W/DEST &/RMVL MED BLADDER EMERY MD LAPAROSCOPY NEPHRECTOMY W/TOTAL URETERECTOMY LEFT DAVINCI ROBOTIC NEPHROURETERECTOMY, CYSTOSCOPY, TRANSURETHRAL RESECTION OF THE BLADDER TUMOR Referral ID Status Reason Start Date Expiration Date Visits Re quested Visits Authorized [id number] 1 1 Encounter Details Date Type Department Care Team (Latest Contact Info) Description 12/01/2024 10:35 AM EDT - 12/01/2024 4:50 PM EDT Surgery EDG PERIOP [facility] [place] [address] Sadi Haney MD [address] [facility] [address] [place] [address] DAVINCI ROBOTIC NEPHROURETERECTOMY Surgery Details Date/Time [...] 3:23 AM EDT Tommy Lugo RN * Murray Suicide Severity Rating Scale (Q shift for [...] Physician Discharge Summary Patient ID: Alex Hoffman [id number] 49 y.o. 1975 Admit date: 12/01/2024 Discharge [...] [facility] [address] [facility] [place] [address] Hours: Wednesday-Wednesday 8:00am - 6:30pm traMADoL 50 mg Tab You can get these medications from any pharmacy You don't need a prescription for these medications acetaminophen 325 mg Tab Sadi Haney MD [address] [facility] [address] [facility] [id number] Follow up in 2 week(s) follow up with Logan Montana MD [address] [facility] [address] [place] [id number] Follow up in 2 week(s) To discuss re-intation of antiplatelet therapy and further CTS w/u Reyna Perez APRN [address] [facility] [address] [facility] [place] [address] Follow up in 1 week(s) Hospital [...] UNABLE TO REACH YOUR UROLOGIST OR UROLOGIST METAL CNC OPERATOR, YOU SHOULD GO TO A NEARBY EMERGENCY [...] 24 hours a day, please call the [facility] urology department * Attachments The following attachments cannot be sent through Care Everywhere. * How to use an incentive spirometer (Jordanian) * Nephrectomy ??? Discharge instructions (Jordanian) * How to take anticoagulants safely (Jordanian) * Vancomycin (Jordanian) * Cefuroxime (Jordanian) documented in this encounter Medications at Time [...] AM EDT Discharge Medication Delivery Service [employer] solid waste landfill technician has delivered the following medications for Alex Hoffman: Rx#[id number]:TRAMADOL 50 MG TABLET-50 mg EVERY 6 HOURS PRN Rx#[id number]:TOLTERODINE ER 4 MG CAPSULE,EXTENDED RELEASE 24 HR-4 mg DAILY Rx#[id number]:CEFUROXIME AXETIL 500 MG TABLET-500 mg EVERY 12 HOURS SCHEDULED Rx#[id number]:HYDROXYZINE PAMOATE 25 MG CAPSULE-25 mg EVERY 8 HOURS PRN Rx#[id number]:VANCOMYCIN 125 MG CAPSULE-125 mg 4 TIMES DAILY Date/Time of Delivery: 12/08/2024 11:35 AM Delivered to: Room 7308 Placed med bag on tray table. Please contact [employer] waste landfill technician with any questions. Thanks! 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 [...] from the original note were not included. 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 [...] PT Subjective Note Type Discharge Patient Room/Unit 8485 Discharge Information Discharge complete, please see discharge summary report for further information including most recently documented activity level Clinical Course pt obsesrved to be amb numerous laps in [facility]. therapy will sign off at thistimes Plan PT Frequency Complete Cosigned by Jennifer Santamaria PT at 12/07/2024 11:18 AM EDT Associated attestation - Jennifer Santamaria PT - 12/07/2024 11:18 AM EDT I agree with the FLY WINDER documentation. * Peace Rea KathyDEMETRIUS - 12/07/2024 6:58 AM EDT Images from the original note were not included. 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 Cognition Orientation Intact Arousal Normal Safety [...] -- Restart toprol 25mg QD today - FLY WINDER Lasix 40gm QD, losartan 50mg QD, Toprol 25mg QD (on hold) Anemia - Hgb 10.2>7.5>8.1>7.9>7.3>8.2>8.9>8.4>9.4>8.7 - s/p 2 U PRBC's 12/03 and 1 U PRBC 12/04 CAD - EKG SR no acute ischemia appreciated - Trops > - Denies chest pain/ diaphoresis/ nausea - FLY WINDER Effient, ASA, Statin, Toprol - Echo 10/2024: [...] Steps 2 Home Equipment None;Mobilized without AD FLY WINDER Level of Assistance Independent with ADLs ;Independent with functional transfers;Ambulatory in home;Ambulatory in the community Lives With Spouse Fall History No falls in the last three months Additional 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 [facility] Urology Urology Progress Note Hospital Day: 6 [...] from the original note were not included. 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 [...] to restart- no doses yet 12/04 - FLY WINDER Lasix 40gm QD, losartan 50mg QD, Toprol 25mg QD (on hold) Anemia - Hgb 10.2>7.5>8.1>7.9>7.3>8.2>8.9>8.4 - s/p 2 U PRBC's 12/03 and 1 U PRBC 12/04 CAD - EKG SR no acute ischemia appreciated - Trops > - Denies chest pain/ diaphoresis/ nausea - FLY WINDER Effient, ASA, Statin, Toprol - Echo 10/2024: [...] - Will discuss bASA plans with attending leather softener - on hold currently last dose 12/04. per urology wants to hold at least until tomorrow. will follow cbc trend. Further input from Dr. Packer. rPomise Cho APRN, Heart and Vascular 12/05/2024 Cardiology [...] bedside. PCI in September. Working towards CABG. FLY WINDER Effient and bASA. Currently holding both. Recommend resumption bASA as soon as cleared by Urology. BP controlled on current regimen. Hgb trend better today. Will follow tomorrow. * Peace Rea APRN - 12/05/2024 8:01 AM EDT Images from the original note were not included. [facility] Urology Progress Note Hospital Day: 5 [...] 2342 -- -- -- 72 -- -- 12/04/243 130/61 -- -- 74 18 96 % 12/04/242049 108/56 98.4 ??F (36.9 ??C) Oral 80 [...] from the original note were not included. [facility] Urology Urology Progress Note Hospital Day: 4 [...] Pt admitted with Ureteral Mass, pt has [place] [employer] insurance. Note pt is alert and oriented x4. CC met with pt and Tessy at bedside and introduced self and role. Pt states he lives in a 1 story home with 2 steps to enter, ptstates he lives with his Tessy. PCP is Reyna Perez. Pt states he uses [facility] in [place]. Pt states he has concerns with affordability of medications, food, transportation, utilities, and other bills, CC provided resources Pt Toolkit and other resources. Pt states he was independent with ADL???s prior to admission. DME none, HHC pt states he has never been active with HH. Pt states he normally transports via his personal vehicle. Pt states he will transport via his Tessy at [place]. Pt identified his Tessy as his d/c planning support person. SDOH screen completed. Thereare no DC needs requested or identified at this time. CC following. Completed by CC/SW Yes Care Coordination Assessment Mental Status Alert and oriented Does patient need staff interpreter? No Decision Maker Patient Activities of [...] or connection with God Interventions with Patient Denominational Interventions Prayer with patient or family Outcomes Expressed Outcomes Appreciative of visit Care Plan Plan for Follow-Up Poultry Packer(s) will continue to follow throughout admission Carolyn [...] to restart- no doses yet 12/04 - FLY WINDER Lasix 40gm QD, losartan 50mg QD, Toprol 25mg QD (on hold) Anemia - Hgb 10.2>7.5>8.1>7.9>7.3 - s/p 2 U PRBC's 12/03 and 1 U PRBC 12/04 CAD - EKG SR no acute ischemia appreciated - Trops 27> 26 - Denies chest pain/ diaphoresis/ nausea - FLY WINDER Effient, ASA, Statin, Toprol - Echo 10/2024: [...] - Will discuss bASA plans with attending leather softener - on hold currently last dose today [...] AM EDTAssociated Problem(s): 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 Plan [...] with bloody output. 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 Plan [...] Semi Fowlers) Pulse 77 Temp 98.1 ??F (36.7??C) (Oral) Resp 18 Ht 5' 8 (1.727 [...] from the original note were not included. [facility] Urology Urology Progress Note Hospital Day: 4 [...] 2329 -- -- -- 88 -- -- 12/03/242235 [...] on 12/01. Plan: Reviewed patient with Dr. Madeline lacy [...] hb was 8.2 Stopped bASA after d/w leather softener Plan: Hold bASA DAMIEN off suction Check [...] from the original note were not included. [facility] Urology Urology Progress Note Hospital Day: 3 [...] 12/03/2024 Peace Rea APRN Cosigned by Sadi Hnaey MD at 12/05/2024 1:44 PM EDT * [...] no acute ischemia appreciated -Trops -ASA/ Statin waiter/waitress captain -Denies chest pain/ diaphoresis/ nausea Hypotension [...] BP Further input from Dr Lizzie Hinkle, MANAGER MEETING, Heart and Vascular 12/03/2024 Disposition Perspective - [...] any restarting metoprolol today. 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 [facility] Urology Urology Progress Note Hospital Day: 3 [...] ??C) Oral 113 (!) 22 97 % 12/02/24 2200 112/64 98.9 ??F (37.2 ??C) -- 115 [...] from the original note were not included. [facility] Urology Urology Progress Note Hospital Day: 2 [...] and relaxation without help. Message sent to training consultant and 1x dose valium ordered. 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 [facility] Urology Progress Note Hospital Day: 2 [...] Rogers APRN - 12/01/2024 8:50 AM EDT [facility] History and Physical Name: Alex Hoffman ADDRESS: [address] [place] [address] [place] [address] : 1975 AGE: 49 y.o. ASSESSMENT: Ureteral [...] CYSTOSCOPY 10/27/2024 Surgeon: Patricia Ellison MD; Location: [facility]; Service: Urology Prior to Admission [...] not taking: Reported on 11/23/2024 11/21/24 12/01/24 Candie WuharineDEMETRIUS No Known Allergies Social History Socioeconomic History [...] left radical nephroureterectomy. SURGEON Sadi Haney MD [employer] See OR record ANESTHESIS General. ESTIMATED BLOOD LOSS 100 mL. DRAINS 10 mm DAMIEN. TUBES 22 Eritrean Bradford catheter. COMPLICATIONS None. POSTOPERATIVE CONDITION Good. [...] in the midclavicular line. A 12 mm teachers' assistant port was placed above the umbilicus. A 5 mm port for the teachers' assistant was placed below the xiphoid process. [...] Hoffman 1 PCP: Reyna Perez APRN Primary Wood Handler: None on file I would like to [...] PR (myocardial infarction) (HCC) 09/17/2024 Motion sickness FLY WINDER Medications: Prior to Admission medications Medication Sig [...] CYSTOSCOPY 10/27/2024 Surgeon: Patricia Ellison MD; Location: [facility]; Service: Urology Allergy No [...] most recent cardiovascular imaging studies available in [facility] EMR were reviewed at time of [...] no acute ischemia appreciated -Trops -ASA/ Statin waiter/waitress captain -Denies chest pain/ diaphoresis/ nausea Hypotension [...] 4. Pneumonia. Per primary. 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 Plan per urology, follow path Coronary artery disease of elim ira artery of elim ira heart with stable angina pectoris - diffuse [...] SURGERY: 12/01/2024 WITH Sadi Khoury MD FOR: MD LAPAROSCOPY NEPHRECTOMY W/TOTAL URETERECTOMY [62261] (LEFT DAVINCI ROBOTIC NEPHROURETERECTOMY, CYSTOSCOPY, TRANSURETHRAL RESECTION OF THE BLADDER TUMOR) MD LAPAROSCOPY RADICAL NEPHRECTOMY [55179] MD CYSTOURETHROSCOPY W/DEST &/RMVL MED BLADDER EMERY [[id number]] THE ANESTHESIA DEPARTMENT IS REQUESTING A CLEARANCE RELATED TO: Recent PCI. Also surgeons is requesting if blood thinner can be held ? Anesthesia type:General PLEASE RESPOND TO THIS ENCOUNTER OR CALL WITH ANY QUESTIONS/CONCERNS PHONE: [phone] Thank You [facility] PRE-ADMISSION TESTING DEPARTMENT * Shoshana Rankin RN - 11/23/2024 2:24 PM EDT REPORTS REQUEST ATTENTION:Reyna Perez PATIENT: Alex Hoffman : 1975 This patient is scheduled for surgery on 12/01/2024 with Sadi Khoury MD Anesthesia has requested the most recent results of the following tests: Most recent office visit note and any recent testing COMMENTS:__Thanks! Please fax to Pre-admission testing. PHONE # [phone] ATTENTION: [address] [address] documented in this encounter Miscellaneous Notes * Utilization Review Notes - Gala Powell LPN - 12/08/2024 11:29 AM EDT DISCHARGED HOME ON 12/08/24 FOLLOW UP WITH Sadi Haney MD [address] [facility] [address] [facility] [address] Follow up in 2 week(s) follow up with Logan [place] MD [address] [facility] [place] [id number] Follow up in 2 week(s) To discuss re-intation of antiplatelet therapy and further CTS w/u Reyna Perez APRN [address] [facility] [address] [facility] [place] [address] Follow up in 1 week(s) Hospital follow up, recheck CBC next week with PCP prior to restarting blood thinner * Query Response Document - Juana Shoemaker MD - 12/08/2024 11:29 AM EDT [facility] CDI / HIM Coding Query Documentation PATIENT: ALEX HOFFMAN : 1975 ADMIT DATE: 12/01/2024 8:38 AM DISCH DATE: 12/08/2024 11:29 AM RESPONDING PROVIDER #: [id number] PROVIDER QUERY RESPONSE TEXT: Severe Sepsis POA [...] any questions, please contact Rodriguez Gabriel @ [phone]) Options provided: -- Severe Sepsis POA -- [...] from the original note were not included. SENIOR SAFETY MANAGEMENT CONSULTANT FOR ADMIT ON 12/01 ON MED [...] pending Elevated troponin Coronary artery disease involving elim ira coronary artery of elim ira heart without angina pectoris - CABG planned [...] - Will discuss bASA plans with attending leather softener - on hold currently last dose 12/04. [...] PRBCs this AM. Most recent Hgb 8.9 ~[address] in [address] with small amount [...] to restart- no doses yet 12/04 - FLY WINDER Lasix 40gm QD, losartan 50mg QD, Toprol 25mg QD (on hold) Anemia - Hgb 10.2>7.5>8.1>7.9>7.3 - s/p 2 U PRBC's 12/03 and 1 U PRBC 12/04 CAD - EKG SR no acute ischemia appreciated - Trops > - Denies chest pain/ diaphoresis/ nausea - FLY WINDER Effient, ASA, Statin, Toprol - Echo 10/2024: [...] - Will discuss bASA plans with attending leather softener - on hold currently last dose today [...] urology, follow path Coronary artery disease of elim ira artery of elim ira heart with stable angina pectoris - diffuse [...] Description 01/23/2025 9:00 AM EDT Office Visit [facility] Cardiac Surgeons [address] [place] [phone] Logan Kenny MD [address] [place] [phone] Pending Results Name Type Priority Associated [...] Hoffman 1 PCP: Reyna Perez APRN Primary Wood Handler: None on file I would like to [...] need a CABG. While being worked up forope heart he was found to have renal [...] PR (myocardial infarction) (HCC) 09/17/2024 Motion sickness FLY WINDER Medications: Prior to Admission medications Medication Sig [...] CYSTOSCOPY 10/27/2024 Surgeon: Patricia Ellison MD; Location: [facility]; Service: Urology Allergy No Known Allergies Patient Active Problem List Diagnosis ASHD (arteriosclerotic heart disease) 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) BP 118/53 (BP Location: Right arm) Pulse 103 Temp 98 F (36.7 C)(Oral) Resp 18 Ht 5' 8 (1.727 m) Wt 243 lb (110.2 kg) AiC192% BMI 36.95 kg/m I/O 24 hours: Intake/Output Summary (Last 24 hours) at 12/02/2024 1156 Last data filed at 12/02/2024 1154 Gross per 24 hour Intake 7111.22 ml Output 1360 ml Net 5751.22 ml Diagnostic tests The most recent cardiovascular imaging studies available in [facility] EMR werereviewed at time of consultation [...] no acute ischemia appreciated -Trops -ASA/ Statin waiter/waitress captain -Denies chest pain/ diaphoresis/ nausea Hypotension [...] xray Further input from Dr. Lizzie Hinkle, MANAGER MEETING Heart and Vascular 12/02/2024 Disposition Perspective - [...] 4. Pneumonia. Per primary. Bear Samuel MD, FACC 12/02/2024 6:11 PM TROPONIN-T HIGH SENSITIVITY 2HR [...] Meng Chen MD Primary Care Physician: Reyna Perez, DEMETRIUS No chief complaint on file. Alex Hoffman [...] CYSTOSCOPY 10/27/2024 Surgeon: Patricia Ellison MD; Location: [facility]; Service: Urology No Known [...] left ureter (HCC) Coronary artery disease of elim ira artery of elim ira heart with stableangina pectoris Assessment and Plan Assessment & Plan 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 Planper urology, follow path Coronary artery disease of elim ira artery of elim ira heart with stableangina pectoris - diffuse severe [...] OLYMPUS ESU, CYSTO FIRST, KCDR HAJ-HAMED ASSISTINGsk MD CYSTOURETHROSCOPY W/DEST &/RMVL MED BLADDER EMERY 12/01/2024 11:21 AM EDT Ureteral mass Special Needs LASSITER KNIFE, HANG WATER, OLYMPUS ESU, CYSTO FIRST, KCDR HAJ-HAMED ASSISTINGsk MD LAPAROSCOPY RADICAL NEPHRECTOMY 12/01/2024 11:21 AM EDT Ureteral mass Special Needs LASSITER KNIFE, HANG WATER, OLYMPUS ESU, CYSTO FIRST, KCDR HAJ-HAMED ASSISTINGsk MD LAPAROSCOPY NEPHRECTOMY W/TOTAL URETERECTOMY 12/01/2024 11:21 AM EDT Ureteral mass Special Needs LASSITER KNIFE, HANG WATER, OLYMPUS ESU, CYSTO FIRST, KCDR HAJ-HAMED ASSISTINGsk US ANES GUIDANCE FOR POC PIEDAD 12/01/2024 9:47 AM EDT BB HISTORY CHECK STAT 12/01/2024 9:22 AM EDT Preop testing ABORH STAT 12/01/2024 9:22 AM EDT Preop testing RED BLOOD CELLS REQUEST PIEDAD 11/23/2024 2:10 PM EDT RED BLOOD CELLS REQUEST PIEDAD 11/23/2024 2:10 PM EDT documented in this encounter Results * SCANNED RHYTHM STRIPS (12/09/2024 4:31 AM EDT) Anatomical Region Laterality Modality Other 12/09/2024 4:31 AM EDT us Unknown Provider IMG ECG ORDERABLES Final Result * (ABNORMAL) CBC WITH DIFF (12/08/2024 6:02 AM EDT) [facility] WBC 9.4 3.7 - 10.3 x10(3)/mcL 12/08/2024 6:48 AM EDT [facility] RBC 3.12(L) 4.60 - 6.10 x10(6)/mcL 12/08/2024 6:48 AM EDT [facility] Hgb 9.3(L) 13.7 - 17.5 g/dL 12/08/2024 6:48 AM EDT [facility] Hct 28.5(L) 40.0 - 51.0 % 12/08/2024 6:48 AM EDT [facility] MCV 91.3 80.0 - 100.0 fL 12/08/2024 6:48 AM EDT [facility] MCH 29.8 26.0 - 34.0 pg 12/08/2024 6:48 AM EDT [facility] MCHC 32.6 30.7 - 35.5 g/dL 12/08/2024 6:48 AM EDT [facility] RDW 14.5 <=14.9 % 12/08/2024 6:48 AM EDT [facility] Platelet 292 155 - 369 x10(3)/mcL 12/08/2024 6:48 AM EDT [facility] MPV 9.5 8.8 - 12.5 fL 12/08/2024 6:48 AM EDT [facility] Neut Percent 71.4 % 12/08/2024 6:48 AM EDT [facility] Comment:Neutrophils equals s egs plus bands Imm Gran% 1.1 % 12/08/2024 6:48 AM EDT [facility] Comment:Automated count of m etamyelocytes, myelocytes and promyelocytes. IG >1% represents a left shift and provides an early indication of an infection or inflammatory process. Lymph Percent 14.3 % 12/08/2024 6:48 AM EDT [facility] [place] Percent 11.0 % 12/08/2024 6:48 AM EDT [facility] Eos Percent 1.9 % 12/08/2024 6:48 AM EDT [facility] Baso Percent 0.3 % 12/08/2024 6:48 AM EDT [facility], [facility] Neut # 6.7(H) 1.6 - 6.1 x10(3)/[facility] 12/08/2024 6:48 AM EDT [facility] Comment:Neutrophils equals s egs plus bands IMMGRAN# 0.1 0.0 - 0.1 x10(3)/[facility] 12/08/2024 6:48 AM EDT [facility] Comment:Automated count of m etamyelocytes, myelocytes and promyelocytes. An absolute IG <0.1 is reported as 0.0. Lymph # 1.3 1.2 - 3.9 x10(3)/[facility] 12/08/2024 6:48 AM EDT [facility] [place] # 1.0(H) 0.3 - 0.9 x10(3)/[facility] 12/08/2024 6:48 AM EDT [facility] Eos# 0.2 0.0 - 0.5 x10(3)/[facility] 12/08/2024 6:48 AM EDT [facility] Baso # 0.0 0.0 - 0.1 x10(3)/[facility] 12/08/2024 6:48 AM EDT [facility] Blood VENOUS BLOOD / Unknown Venipuncture / Unknown 12/08/2024 6:02 AM EDT 12/08/2024 6:35 AM EDT Juana Shoemaker MD HEMATOLOGY ORDERABLES Final R esult [facility], [facility] [address] [facility] , [place] [address] * (ABNORMAL) BASIC METABOLIC PANEL (12/08/2024 6:02 AM EDT) Sodium 137 136 - 145 mmol/L 12/08/2024 7:09 AM EDT [facility] Potassium 3.7 3.5 - 5.0 mmol/L 12/08/2024 7:09 AM EDT [facility] Chloride 104 98 - 107 mmol/L 12/08/2024 7:09 AM EDT [facility] Total CO2 21(L) 22 - 29 mmol/L 12/08/2024 7:09 AM EDT [facility] Anion Gap 12 7 - 16 mmol/L 12/08/2024 7:09 AM EDT [facility] Calcium 9.3 8.6 - 10.4 mg/dL 12/08/2024 7:09 AM EDT [facility] Glucose Lvl 105(H) 70 - 99 mg/dL 12/08/2024 7:09 AM EDT [facility] BUN 11 6 - 20 mg/dL 12/08/2024 7:09 AM EDT [facility] Creatinine 0.96 0.67 - 1.30 mg/dL 12/08/2024 7:09 AM EDT [facility] eGFR (CKD-EPIcr 2020) 96 >=60 mL/min/1.7 3 m2 12/08/2024 7:09 AM EDT [facility] Comment:Estimated GFR was ca lculated using the CKD-EPIcr (2020) equation refit without race. The equation is recommended by the National Kidney Foundation - [place] [employer] of Nephrology Task Force. Blood VENOUS BLOOD / Unknown Venipuncture / Unknown 12/08/2024 6:02 AM EDT 12/08/2024 6:34 AM EDT us Juana Shoemaker MD CHEMISTRY ORDERABLES Final Re sult [facility] [address] [facility] , [address] [place] [id number] * ECG AND WAVEFORMS - TELEMETRY (12/07/2024 8:06 PM EDT) ECG INTERPRET NSR [facility] 12/07/2024 8:06 PM EDT Narrative [facility] - 12/07/2024 8:18 PM EDT ROUTINE (BS) MD 0.16 QRS 0.12 RR 0.65 QT 0.40 QTc 0.50 See Clinical Report link for waveform capture us Unknown Provider POINT OF CARE CARDIOLOGY Final Result [facility] [address] [place] [id number] * FL CYSTOGRAM MINIMUM 3 VW (12/07/2024 [...] examination was performed by Rachna Eller, physician teachers' assistant, under the supervision of Dr. Singh. A total fluoroscopy time of 1.2 minutes was used. 119 fluoroscopic spot images were saved to PACS. FINDINGS: Via Bradford catheter, 175 mL of water-soluble contrast was instilled retrograde into the urinary bladder. Imaging was performed in multiple projections. Web User Experience Strategist radiographs show a surgical drain over the [...] The examination was performed by Rachna Eller,physician teachers' assistant, under the supervision of Dr. Singh. A total fluoroscopy timeof 1.2 minutes was used. 119 fluoroscopic spot images were saved to PACS. FINDINGS: Via Bradford catheter, 175 mL of water-soluble contrast wasinstilled retrograde into the urinary bladder. Imaging was performed in multiple projections. [employer] User Experience Strategist radiographs show a surgical drain over the [...] of the ordering clinician. us Peace Rea MANAGER MEETING IMG FLUOROSCOPY ORDERABLE S Final Result * ECG AND WAVEFORMS - TELEMETRY (12/07/2024 10:12 AM EDT) ECG INTERPRET NSR [facility] 12/07/2024 10:1 2 AM EDT Narrative [facility] - 12/07/2024 10:20 AM EDT (DT)ROUTINE MD 0.15 QRS 0.09 RR 0.73 QT 0.37 QTc 0.43 See Clinical Report link for waveform capture us Unknown Provider POINT OF CARE CARDIOLOGY Final Result [facility] [address] [place] [id number] * (ABNORMAL) CBC (12/07/2024 5:33 AM EDT) [...] Fin al Result [facility] [address] [place] [address] , [place] [address] * ECG AND WAVEFORMS - TELEMETRY (12/06/2024 11:04 PM EDT) Pathologist [facility] ECG INTERPRET NSR [facility] 12/06/2024 11:0 4 PM EDT Narrative [facility] - 12/06/2024 11:37 PM EDT ROUTINE MD 0.13 QRS 0.12 RR 0.84 QT 0.40 QTc 0.43 See Clinical Report link for waveform capture us Unknown Provider POINT OF CARE CARDIOLOGY Final Result Performing Organization Address [facility] Co de Phone Number [facility] [address] [place] [address] * (ABNORMAL) C DIFF INTERPRETATION (12/06/2024 [...] 12/06/2024 10:05 AM EDT Narrative [facility] - 12/06/2024 1:18 PM EDT Toxin producing C diff target DNA sequences detected. Toxins A/B positive. CDI likely. Consider initiation of severity-based CDI therapy according to CDI management guidance. us Brody LINDQUIST MICROBIOLOGY - GENERAL ORDERABLE S Final Result Performing Organization Address City/[facility]/ZIP Co de Phone Number [facility], [address] , [place] [address] * C DIFF GDH AG AND TOXIN A+B (12/06/2024 9:57 AM EDT) Stool RECTUM STRUCTURE / Unknown Collection / Unknown 12/06/2024 9:57 AM EDT 12/06/2024 10:05 AM EDT Brody LINDQUIST MICROBIOLOGY - GENERAL ORDERABLE S Final Result Performing Organization Address [facility] Co de Phone Number [facility] [address] [facility] , [place] [address] * C DIFF TOXIN DNA (12/06/2024 9:57 AM EDT) Stool RECTUM STRUCTURE / Unknown Collection / Unknown 12/06/2024 9:57 AM EDT 12/06/2024 10:05 AM EDT Brody LINDQUIST MICROBIOLOGY - GENERAL ORDERABLE S Final Result Performing Organization Address [facility] Co de Phone Number [facility] [address] [place] [address] , [place] [address] * ECG AND WAVEFORMS - TELEMETRY (12/06/2024 7:01 AM EDT) ECG INTERPRET NSR [facility] 12/06/2024 7:01 AM EDT Narrative [facility] - 12/06/2024 8:04 AM EDT (DT)ROUTINE MD 0.17 QRS 0.09 RR 0.78 QT 0.38 QTc 0.42 See Clinical Report link for waveform capture us Unknown Provider POINT OF CARE CARDIOLOGY Final Result Performing Organization Address City/[facility] Co de Phone Number [facility] [address] [place] [address] * (ABNORMAL) CBC (12/06/2024 5:28 AM EDT) WBC 8.9 3.7 - 10.3 x10(3)/mcL 12/06/2024 6:35 AM EDT [place], [facility] RBC 2.83(L) 4.60 - 6.10 x10(6)/mcL 12/06/2024 [...] 12/06/2024 6:35 AM EDT [facility] MCHC 33.9 30.7 - 35.5 g/dL 12/06/2024 6:35 AM EDT [facility] RDW 14.4 <=14.9 % 12/06/2024 6:35 AM EDT [facility] Platelet 217 155 - 369 x10(3)/mcL 12/06/2024 6:35 AM EDT [facility] MPV 9.7 8.8 - 12.5 fL 12/06/2024 6:35 AM EDT [facility] Blood VENOUS BLOOD / Unknown Venipuncture / Unknown 12/06/2024 5:28 AM EDT 12/06/2024 6:23 AM EDT us Sadi Haney MD HEMATOLOGY ORDERABLES Fin al Result [facility], [address] , [place] [address] * ECG AND WAVEFORMS - TELEMETRY (12/05/2024 7:00 PM EDT) ECG INTERPRET Sinus Tachycardia [facility] 12/05/2024 7:00 PM EDT Narrative [facility] - 12/05/2024 9:36 PM EDT ROUTNE MD 0.13 QRS 0.12 RR 0.55 QT 0.34 QTc 0.46 See Clinical Report link for waveform capture us Unknown Provider POINT OF CARE CARDIOLOGY Final Result [facility] [address] [place] [address] * (ABNORMAL) HEMOGLOBIN AND HEMATOCRIT (12/05/2024 12:22 PM EDT) [facility] Hgb 9.4(L) 13.7 - 17.5 g/dL 12/05/2024 1:04 PM EDT [facility], [facility] Hct 27.8(L) 40.0 - 51.0 % 12/05/2024 1:04 PM EDT [facility] Blood VENOUS BLOOD / Unknown Venipuncture / Unknown 12/05/2024 12:22 PM EDT 12/05/2024 12:27 PM EDT us Juana Shoemaker MD HEMATOLOGY ORDERABLES Final R esult Performing Organization Address City/[facility]/ZIP Co de Phone Number [facility] [address], [place] [address] * ECG AND WAVEFORMS - TELEMETRY (12/05/2024 8:03 AM EDT) [facility] ECG INTERPRET NSR [facility] 12/05/2024 8:03 AM EDT Narrative [facility] - 12/05/2024 9:13 AM EDT MD 0.14 QRS 0.08 RR 0.72 QT 0.36 QTc 0.42 See Clinical Report link for waveform capture us Unknown Provider POINT OF CARE CARDIOLOGY Final Result Performing Organization Address City/[facility]/ZIP Co de Phone Number [facility] [address] [place] [address] * (ABNORMAL) CBC (12/05/2024 5:55 AM EDT) Pathologist [facility] WBC 8.0 3.7 - 10.3 x10(3)/mcL 12/05/2024 7:34 AM EDT [facility] RBC 2.79(L) 4.60 - 6.10 x10(6)/mcL 12/05/2024 7:34 AM EDT [facility], [facility] Hgb 8.4(L) 13.7 - 17.5 g/dL 12/05/2024 [...] 12/05/2024 7:34 AM EDT [facility] Platelet 187 155 - 369 x10(3)/mcL 12/05/2024 7:34 AM EDT [facility] MPV 9.9 8.8 - 12.5 fL 12/05/2024 7:34 AM EDT [facility] Blood VENOUS BLOOD / Unknown Venipuncture / Unknown 12/05/2024 5:55 AM EDT 12/05/2024 7:05 AM EDT Sadi Haney MD HEMATOLOGY ORDERABLES Fin al Result [facility] [address] [facility] , [place] [address] * (ABNORMAL) HEMOGLOBIN AND HEMATOCRIT (12/04/2024 7:12 PM EDT) [facility] Hgb 8.9(L) 13.7 - 17.5 g/dL 12/04/2024 7:32 PM EDT [facility] Hct 26.5(L) 40.0 - 51.0 % 12/04/2024 7:32 PM EDT [facility] Blood VENOUS BLOOD / Unknown Venipuncture / Unknown 12/04/2024 7:12 PM EDT 12/04/2024 7:25 PM EDT Sadi Haney MD HEMATOLOGY ORDERABLES Fin al Result Performing Organization Address [facility] de Phone Number [facility] [employer] [address] [facility], [address] [place] [phone] * ECG AND WAVEFORMS - TELEMETRY (12/04/2024 7:00 PM EDT) Pathologist [facility] ECG INTERPRET NSR [facility] 12/04/2024 7:00 PM EDT Narrative [facility] - 12/05/2024 1:26 AM EDT ROUTINE(CW) MD 0.14 QRS 0.07 RR 0.77 QT 0.38 QTc 0.43 See Clinical Report link for waveform capture us Unknown Provider POINT OF CARE CARDIOLOGY Final Result Performing Organization Address [facility] de Phone Number [facility] [address] [place] [phone] * TRANSFUSE RED BLOOD CELLS (12/04/2024 3:25 PM EDT) Peace Chavez Grady MANAGER MEETING NURSING TREATMENT ORDERABLES - BLOOD ADMIN Edited Result - Final * TRANSFUSE RED BLOOD CELLS (12/04/2024 3:25 PM EDT) Peace A Grady MANAGER MEETING NURSING TREATMENT ORDERABLES - BLOOD ADMIN Edited Result - Final * (ABNORMAL) HEMOGLOBIN AND HEMATOCRIT (12/04/2024 12:54 PM EDT) Hgb 8.2(L) 13.7 - 17.5 g/dL 12/04/2024 1:13 PM EDT [facility] [employer] Hct 24.7(L) 40.0 - 51.0 % 12/04/2024 1:13 PM EDT [facility] [employer] Blood VENOUS BLOOD / Unknown Venipuncture / Unknown 12/04/2024 12:54 PM EDT 12/04/2024 1:06 PM EDT Peace A Grady MANAGER MEETING HEMATOLOGY ORDERABLES Fin al Result Performing Organization Address City/[facility] Co de Phone Number [facility] [employer] [address] [facility] [facility], [place] [address] * ECG AND WAVEFORMS - TELEMETRY (12/04/2024 7:56 AM EDT) ECG INTERPRET NSR [facility] 12/04/2024 7:56 AM EDT Narrative [facility] - 12/04/2024 11:08 PM EDT ROUTINE//AC MD 0.14 QRS 0.11 RR 0.76 QT 0.39 QTc 0.45 See Clinical Report link for waveform capture us Unknown Provider POINT OF CARE CARDIOLOGY Final Result Performing Organization Address [facility]/ZIP Co de Phone Number [facility] [address] [place] [address] * ECG AND WAVEFORMS - TELEMETRY (12/04/2024 7:56 AM EDT) ECG INTERPRET NSR [facility] 12/04/2024 7:56 AM EDT Narrative [facility] - 12/04/2024 8:01 AM EDT ROUTINE//AC MD 0.14 QRS 0.11 RR 0.76 QT 0.39 QTc 0.45 See Clinical Report link for waveform capture us Unknown Provider POINT OF CARE CARDIOLOGY Final Result Performing Organization Address [facility]/ZIP Co de Phone Number [facility] [address] [place] [address] * (ABNORMAL) IRON+TIBC (12/04/2024 5:52 AM EDT) Iron 27(L) 50 - 170 mcg/dL 12/05/2024 12:26 PM EDT [facility] Transferrin 160(L) 200 - 360 mg/dL 12/05/2024 12:26 PM EDT [facility] Transferrin Saturation 12(L) 20 - 50 % 12/05/2024 12:26 PM EDT [facility] TIBC 224(L) 250 - 400 mcg/dL 12/05/2024 12:26 PM EDT [facility] Blood VENOUS BLOOD / Unknown Venipuncture / Unknown 12/04/2024 5:52 AM EDT 12/04/2024 6:01 AM EDT Juana Shoemaker MD CHEMISTRY ORDERABLES Final Re sult [facility], [facility] [address] [facility] [facility] , [place] [address] * (ABNORMAL) BASIC METABOLIC PANEL (12/04/2024 5:52 AM EDT) Sodium 140 136 - 145 mmol/L 12/04/2024 6:38 AM EDT [facility] Potassium 3.9 3.5 - 5.0 mmol/L 12/04/2024 6:38 AM EDT [facility] Chloride 109(H) 98 - 107 mmol/L 12/04/2024 6:38 AM EDT [facility] Total CO2 23 22 - 29 mmol/L 12/04/2024 6:38 AM EDT [facility] Anion Gap 8 7 - 16 mmol/L [...] recommended by the National Kidney Foundation - [place] [employer] of Nephrology Task Force. Blood VENOUS BLOOD / Unknown Venipuncture / Unknown 12/04/2024 5:52 AM EDT 12/04/2024 6:01 AM EDT Sadi Haney MD CHEMISTRY ORDERABLES Nadiya nichols Result [facility] [address] [facility] , [address] [place] [phone] * (ABNORMAL) CBC WITH DIFF (12/04/2024 5:52 [...] % 12/04/2024 6:13 AM EDT [facility] [place] Percent 10.4 % 12/04/2024 6:13 AM EDT [facility] Eos Percent 2.6 % 12/04/2024 6:13 AM EDT [facility] Baso Percent 0.3 % 12/04/2024 6:13 AM EDT [facility] Neut # 4.1 1.6 - 6.1 x10(3)/[facility] 12/04/2024 6:13 AM EDT [facility] Comment:Neutrophils equals s egs plus bands IMMGRAN# 0.0 0.0 - 0.1 x10(3)/[facility] 12/04/2024 6:13 AM EDT [facility] Comment:Automated count of m etamyelocytes, myelocytes and promyelocytes. An absolute IG <0.1 is reported as 0.0. Lymph # 1.5 1.2 - 3.9 x10(3)/[facility] 12/04/2024 6:13 AM EDT [facility] [place] # 0.7 0.3 - 0.9 x10(3)/[facility] 12/04/2024 6:13 AM EDT [facility] Eos# 0.2 0.0 - 0.5 x10(3)/[facility] 12/04/2024 6:13 AM EDT [facility] Baso # 0.0 0.0 - 0.1 x10(3)/[facility] 12/04/2024 6:13 AM EDT [facility] Blood VENOUS BLOOD / Unknown Venipuncture / Unknown 12/04/2024 5:52 AM EDT 12/04/2024 6:01 AM EDT us Sadi Haney MD HEMATOLOGY ORDERABLES Fin al Result [facility], [facility] [address] [facility] , [address] [place] [phone] * ECG AND WAVEFORMS - TELEMETRY (12/03/2024 7:00 PM EDT) ECG INTERPRET NSR [facility] 12/03/2024 7:00 PM EDT Narrative [facility] - 12/03/2024 8:34 PM EDT ROUTINE(CW) MD 0.15 QRS 0.06 RR 0.60 QT 0.27 QTc 0.35 See Clinical Report link for waveform capture us Unknown Provider POINT OF CARE CARDIOLOGY Final Result Performing Organization Address City/[facility] Co de Phone Number [facility] [address] [place] [address] * (ABNORMAL) HEMOGLOBIN AND HEMATOCRIT (12/03/2024 10:44 AM EDT) [facility] Hgb 7.9(L) 13.7 - 17.5 g/dL 12/03/2024 11:50 AM EDT [facility] Hct 23.7(L) 40.0 - 51.0 % 12/03/2024 11:50 AM EDT [facility] Blood VENOUS BLOOD / Unknown Venipuncture / Unknown 12/03/2024 10:44 AM EDT 12/03/2024 10:54 AM EDT us Meng Chen MD HEMATOLOGY ORDERABLES Final Res ult Performing Organization Address [facility] de Phone Number [facility] [address] [place] [address], [place] [address] * ECG AND WAVEFORMS - TELEMETRY (12/03/2024 7:00 AM EDT) [facility] ECG INTERPRET NSR [facility] 12/03/2024 7:00 AM EDT Narrative [facility] - 12/03/2024 7:58 AM EDT [place] ROUTINE MD 0.14 QRS 0.09 RR 0.66 QT 0.35 See Clinical Report link for waveform capture us Unknown Provider POINT OF CARE CARDIOLOGY Final Result Performing Organization Address [facility] Co de Phone Number [facility] [address] [place] [address] * (ABNORMAL) HEMOGLOBIN AND HEMATOCRIT (12/03/2024 4:48 AM EDT) Hgb 8.0(L) 13.7 - 17.5 g/dL 12/03/2024 5:08 AM EDT [facility], [facility] Hct 24.4(L) 40.0 - 51.0 % 12/03/2024 5:08 AM EDT [facility], [facility] Blood VENOUS BLOOD / Unknown Venipuncture / Unknown 12/03/2024 4:48 AM EDT 12/03/2024 4:58 AM EDT Meng Chen MD HEMATOLOGY ORDERABLES Final Res ult [facility] [employer] [facility], [address], [place] [address] * TRANSFUSE RED BLOOD CELLS (12/03/2024 4:00 AM EDT) Sadi Haney MD NURSING TREATMENT ORDERAB LES - BLOOD ADMIN Final Result * TRANSFUSE RED BLOOD CELLS (12/03/2024 4:00 AM EDT) Sadi Haney MD NURSING TREATMENT ORDERAB LES - BLOOD ADMIN Final Result * (ABNORMAL) TROPONIN-T HIGH SENSITIVITY 6 HR (12/03/2024 3:40 AM EDT) Pathologist [facility] [id number] 6HR 37(H) <22 ng/L 12/03/2024 4:43 AM EDT [facility], [facility] hs-cTnT 6Hr Delta from Baseline 11 <12 ng/L 12/03/2024 4:43 AM EDT [facility], [facility] Blood VENOUS BLOOD / Unknown Venipuncture / Unknown 12/03/2024 3:40 AM EDT 12/03/2024 4:11 AM EDT Narrative [facility] [employer] [facility], [facility] - 12/03/2024 4:43 AM EDT Ingestion of josé miguel doses of biotin (>5 mg/day) taken within 8 hours of drawing blood sample can interfere with this immunoassay test. us Rachna Wood MANAGER MEETING CHEMISTRY ORDERABLES Fin al Result [facility], [facility] [address] [facility] [facility] , [place] [address] * (ABNORMAL) BASIC METABOLIC PANEL (12/03/2024 3:40 AM EDT) Sodium 142 136 - 145 mmol/L 12/03/2024 4:42 AM EDT [facility] Potassium 4.2 3.5 - 5.0 mmol/L 12/03/2024 4:42 AM EDT [facility] Chloride 111(H) 98 - 107 mmol/L 12/03/2024 4:42 AM EDT [facility] Total CO2 21(L) 22 - 29 mmol/L [...] recommended by the National Kidney Foundation - [place] [employer] of Nephrology Task Force. Blood VENOUS BLOOD / Unknown Venipuncture / Unknown 12/03/2024 3:40 AM EDT 12/03/2024 4:11 AM EDT Sadi Haney MD CHEMISTRY ORDERABLES Nadiya magdalena Result [facility], [facility] [address] [facility], [address] [place] [phone] * (ABNORMAL) CBC WITH DIFF (12/03/2024 3:40 [...] 4:22 AM EDT [facility] [place] Percent 11.5 % 12/03/2024 4:22 AM EDT [facility] Eos Percent 0.6 % 12/03/2024 4:22 AM EDT [facility] Baso Percent 0.2 % 12/03/2024 4:22 AM EDT [facility] Neut # 6.7(H) 1.6 - 6.1 x10(3)/[facility] 12/03/2024 4:22 AM EDT [facility] Comment:Neutrophils equals s egs plus bands IMMGRAN# 0.0 0.0 - 0.1 x10(3)/[facility] 12/03/2024 4:22 AM EDT [facility] Comment:Automated count of m etamyelocytes, myelocytes and promyelocytes. An absolute IG <0.1 is reported as 0.0. Lymph # 1.6 1.2 - 3.9 x10(3)/[facility] 12/03/2024 4:22 AM EDT [facility] [place]ome # 1.1(H) 0.3 - 0.9 x10(3)/[facility] 12/03/2024 4:22 AM EDT [facility] Eos# 0.1 0.0 - 0.5 x10(3)/[facility] 12/03/2024 4:22 AM EDT [facility] Baso # 0.0 0.0 - 0.1 x10(3)/[facility] 12/03/2024 4:22 AM EDT [facility], [facility] Blood VENOUS BLOOD / Unknown Venipuncture / Unknown 12/03/2024 3:40 AM EDT 12/03/2024 4:11 AM EDT Sadi Haney MD HEMATOLOGY ORDERABLES Fin al Result [facility] [address] [facility] , [address] [place] [address] * TRANSFUSE RED BLOOD CELLS (12/03/2024 1:03 AM EDT) us Sadi Haney MD NURSING TREATMENT ORDERAB LES - BLOOD ADMIN Final Result * TRANSFUSE RED BLOOD CELLS (12/03/2024 1:03 AM EDT) Sadi Haney MD NURSING TREATMENT ORDERAB LES - BLOOD ADMIN Final Result * (ABNORMAL) TROPONIN-T HIGH SENSITIVITY 2HR (12/02/2024 10:14 PM EDT) [id number] 2HR 33(H) <22 ng/L 12/02/2024 11:02 PM EDT [facility] hs-cTnT 2Hr Delta from Baseline 7(H) <4 ng/L 12/02/2024 11:02 PM EDT [facility] Blood VENOUS BLOOD / Unknown Venipuncture / Unknown 12/02/2024 10:14 PM EDT 12/02/2024 10:33 PM EDT Narrative [facility]ED Flexion - 12/02/2024 11:02 PM EDT Ingestion of josé miguel doses of biotin (>5 mg/day) taken within 8 hours of drawing blood sample can interfere with this immunoassay test. Rachna Wood MANAGER MEETING CHEMISTRY ORDERABLES Fin al Result [facility] Flexion [address] [place] [address] , [address] [place] [id number] * CT ABDOMEN PELVIS W CONTRAST (12/02/2024 [...] BASELINE W/ REFLEX (12/02/2024 7:34 PM EDT) af-[id number]-R 26(H) <22 ng/L 12/02/2024 8:05 PM EDT [facility] Blood VENOUS BLOOD / Unknown Venipuncture / Unknown 12/02/2024 7:34 PM EDT 12/02/2024 7:37 PM EDT Narrative [facility] - 12/02/2024 8:05 PM EDT Ingestion of josé miguel doses of biotin (>5 mg/day) taken within 8 hours of drawing blood sample can interfere with this immunoassay test. Rachna Wood MANAGER MEETING CHEMISTRY ORDERABLES Fin al Result [facility] Flexion [address] [facility], [place] [address] * EK EKG 12 LEAD (12/02/2024 7:13 PM EDT) Anatomical Region Laterality Modality Electrocardiogra phy 12/02/2024 7:21 PM EDT Impressions 12/03/2024 11:25 AM EDT [facility] Test Date: 2024-12-02 Pat Name: ALEX HOFFMAN Department: DEPID Room: 7308 Gender: Male Wellness Rn: As : 1975 Requested By: RACHNA Gutierrez Order Number: [id number] Reading MD: Edelmira Ramsey DO Measurements Intervals Parrott Rate: 123 P: 131 MD: 167 QRS: 1 QRSD: 90 T: 72 QT: 319 QTc: 457 Interpretive Statements SINUS TACHYCARDIA NONSPECIFIC ST & T-WAVE ABNORMALITY ABNORMAL RHYTHM ECG Electronically Signed On 07-27-2025 11:25:42 EDT by Edelmira Ramsey DO Narrative Procedure Note Edelmira Ramsey DO - 12/03/2024 ROLAN Mac Test Date: 2024-12-02 Pat Name: ALEX HOFFMAN Department: DEPID Room: 7308 Gender: Male Wellness Rn: As : 1975 Requested By: RACHNA Gutierrez Order Number: [id number] Reading MD: Edelmira Ramsey DO Measurements Intervals Parrott Rate: 123 P: 131 MD: 167 QRS: 1 QRSD: 90 T: 72 QT: 319 QTc: 457 Interpretive Statements SINUS TACHYCARDIA NONSPECIFIC ST & T-WAVE ABNORMALITY ABNORMAL RHYTHM ECG Electronically Signed On 12-03-2024 11:25:42 EDT by Edelmira Ramsey DO us Rachna Wood MANAGER MEETING IMG ECG ORDERABLES Final Result * ECG AND WAVEFORMS - TELEMETRY (12/02/2024 7:00 PM EDT) Pathologist [facility] ECG INTERPRET Sinus Tachycardia [facility] 12/02/2024 7:00 PM EDT Narrative [facility] - 12/02/2024 7:47 PM EDT ROUTINE(CW) MD 0.10 QRS 0.05 RR 0.40 QT 0.27 QTc 0.43 See Clinical Report link for waveform capture us Unknown Provider POINT OF CARE CARDIOLOGY Final Result [facility] [address] [place] [id number] * (ABNORMAL) HEMOGLOBIN AND HEMATOCRIT (12/02/2024 6:17 PM EDT) Hgb 7.5(L) 13.7 - 17.5 g/dL 12/02/2024 6:54 PM EDT [facility] Hct 22.9(L) 40.0 - 51.0 % 12/02/2024 6:54 PM EDT [facility] Blood VENOUS BLOOD / Unknown Venipuncture / Unknown 12/02/2024 6:17 PM EDT 12/02/2024 6:25 PM EDT us Meng Chen MD HEMATOLOGY ORDERABLES Final Res ult Performing Organization Address [facility] Co de Phone Number [facility] [employer] [facility] [address] [facility] , [address] [phone] * REPEAT LACTIC ACID (12/02/2024 6:17 PM EDT) Lactic Acid 1.6 0.5 - 1.9 mmol/L 12/02/2024 6:44 PM EDT [facility] [employer] [facility] Blood VENOUS BLOOD / Unknown Venipuncture / Unknown 12/02/2024 6:17 PM EDT 12/02/2024 6:25 PM EDT us Meng Chen MD CHEMISTRY ORDERABLES Final Resu lt Performing Organization Address [facility] Co de Phone Number [facility] [employer] [facility] [address] [facility] , [place] [address] * (ABNORMAL) REPEAT LACTIC ACID (12/02/2024 3:49 PM EDT) Lactic Acid 2.9(H) 0.5 - 1.9 mmol/L 12/02/2024 4:29 PM EDT [facility] [employer] [facility] Blood VENOUS BLOOD / Unknown Venipuncture / Unknown 12/02/2024 3:49 PM EDT 12/02/2024 3:55 PM EDT us Meng Chen MD CHEMISTRY ORDERABLES Final Resu lt Performing Organization Address [facility] Co de Phone Number [facility] [employer] [facility] [address] [facility] , [place] [address] * ECG AND WAVEFORMS - TELEMETRY (12/02/2024 3:11 PM EDT) ECG INTERPRET Sinus Tachycardia [facility] Comment:MD notified 12/02/2024 3:11 PM EDT Narrative [facility] - 12/02/2024 3:13 PM EDT [place] ROUTINE See Clinical Report link for waveform capture us Unknown Provider POINT OF CARE CARDIOLOGY Final Result Performing Organization Address [facility] Co de Phone Number [facility] [address] [place], [place] [id number] * (ABNORMAL) LACTIC ACID (12/02/2024 1:42 PM EDT) Lactic Acid 3.2(H) 0.5 - 1.9 mmol/L 12/02/2024 2:16 PM EDT PREF[facility]ED Flexion Blood VENOUS BLOOD / Unknown Venipuncture / Unknown 12/02/2024 1:42 PM EDT 12/02/2024 1:52 PM EDT Meng Chen MD CHEMISTRY ORDERABLES Final Resu lt Performing Organization Address [facility] Co de Phone Number [facility] [address] [facility] , [place] [address] * BLOOD CULTURE (NO STAIN) (12/02/2024 1:42 PM EDT) Culture Result No Growth at 120 hours. BLOOD CULTURE (NO STAIN) 12/07/2024 3:00 PM EDT [facility] Blood VENOUS BLOOD / Unknown Venipuncture / Unknown 12/02/2024 1:42 PM EDT 12/02/2024 1:53 PM EDT Meng Chen MD MICROBIOLOGY - GENERAL ORDERABL ES Final Result Performing Organization Address [facility] Co de Phone Number [facility] [address] [facility] , [place] [address] * ECG AND WAVEFORMS - TELEMETRY (12/02/2024 12:27 PM EDT) ECG INTERPRET Sinus Tachycardia [facility] Comment:aysmptomatic on asse ssment 12/02/2024 12:2 7 PM EDT Narrative [facility] - 12/02/2024 12:50 PM EDT [place] ROUTINE MD 0.13 QRS 0.10 RR 0.50 QT 0.32 See Clinical Report link for waveform capture us Unknown Provider POINT OF CARE CARDIOLOGY Final Result Performing Organization Address [facility]/ZIP Co de Phone Number [facility] [address] [place] [address] * (ABNORMAL) REPEAT LACTIC ACID (12/02/2024 10:59 AM EDT) Lactic Acid 2.8(H) 0.5 - 1.9 mmol/L 12/02/2024 11:16 AM EDT [facility] Blood VENOUS BLOOD / Unknown Venipuncture / Unknown 12/02/2024 10:59 AM EDT 12/02/2024 10:59 AM EDT Sundar Kessler APRN CHEMISTRY ORDERABLES Final Result Performing Organization Address City/[facility] Co de Phone Number [facility] [address] [place] [address] * URINE CULTURE (NO STAIN) (12/02/2024 10:53 AM EDT) Culture No growth at 30 hours. 12/04/2024 6:38 AM EDT [facility] Urine URINARY BLADDER STRUCTURE / Unknown 12/02/2024 10:53 AM EDT 12/02/2024 11:12 AM EDT Sundar Kessler APRN MICROBIOLOGY - GENER AL ORDERABLES Final Result Performing Organization Address City/[facility]/ZIP Co de Phone Number [facility] [address] [facility], [place] [address] * EXTRA SWENSON URINE CX (12/02/2024 10:53 AM EDT) Urine URINE SPECIMEN OBTAINED VIA INDWELLING URINARY CATHETER / Unknown 12/02/2024 10:53 AM EDT 12/02/2024 10:59 AM EDT Sundar Kessler MANAGER MEETING MICROBIOLOGY - GENER AL ORDERABLES Final Result [facility] [address] [place] [address] * (ABNORMAL) URINALYSIS REFLEX (12/02/2024 10:53 [...] /LPF 12/02/2024 11:12 AM EDT PREFERRED [facility] [employer] UA Bacteria 1+(A) Negative /HPF 12/02/2024 11:12 AM EDT [facility] [employer] [facility] Urine URINARY BLADDER STRUCTURE / Unknown 12/02/2024 10:53 AM EDT 12/02/2024 10:59 AM EDT Sundar Kessler MANAGER MEETING URINE ORDERABLES Fin al Result Performing Organization Address [facility] Co de Phone Number [facility] [employer] [address] , [place] [address] * BLOOD CULTURE (NO STAIN) (12/02/2024 10:51 AM EDT) Culture Result No Growth at 120 hours. BLOOD CULTURE (NO STAIN) 12/07/2024 1:00 PM EDT [facility] [employer] [facility] Blood VENOUS BLOOD / Unknown Venipuncture / Unknown 12/02/2024 10:51 AM EDT 12/02/2024 10:51 AM EDT Meng Chen MD MICROBIOLOGY - GENERAL ORDERABL ES Final Result Performing Organization Address [facility] de Phone Number [facility] [employer] , [place] [address] * XR CHEST AP PORTABLE [...] - 17.5 g/dL 12/02/2024 10:12 AM EDT [facility] Hct 24.7(L) 40.0 - 51.0 % 12/02/2024 10:12 AM EDT [facility] Blood VENOUS BLOOD / Unknown Venipuncture / Unknown 12/02/2024 9:22 AM EDT 12/02/2024 9:48 AM EDT Peace Rea MANAGER MEETING HEMATOLOGY ORDERABLES Fin al Result [facility] [address] [facility] , [place] [address] * (ABNORMAL) REPEAT LACTIC ACID (12/02/2024 9:22 AM EDT) Pathologist [facility] Lactic Acid 2.3(H) 0.5 - 1.9 mmol/L 12/02/2024 10:00 AM EDT [facility] Blood VENOUS BLOOD / Unknown Venipuncture / Unknown 12/02/2024 9:22 AM EDT 12/02/2024 9:46 AM EDT [facility] CHEMISTRY ORDERABLES Final Result Performing Organization Address [facility]/ZIP Co de Phone Number [address] [address] * (ABNORMAL) TROPONIN-T HIGH SENSITIVITY 2HR (12/02/2024 9:22 AM EDT) Pathologist [facility] [id number]-jPhurbkhq-O 2HR 26(H) <22 ng/L 12/02/2024 10:04 AM EDT [facility] hs-cTnT 2Hr Delta from Baseline -1 <4 ng/L 12/02/2024 10:04 AM EDT [facility] Blood VENOUS BLOOD / Unknown Venipuncture / Unknown 12/02/2024 9:22 AM EDT 12/02/2024 9:46 AM EDT Narrative [facility] - 12/02/2024 10:04 AM EDT Ingestion of josé miguel doses of biotin (>5 mg/day) taken within 8 hours of drawing blood sample can interfere with this immunoassay test. FjuulN CHEMISTRY ORDERABLES Final Result Performing Organization Address City/[facility]/ZIP Co de Phone Number [address] [address] * (ABNORMAL) TROPONIN-T HIGH SENSITIVITY BASELINE W/ REFLEX (12/02/2024 7:08 AM EDT) Pathologist [facility] [id number]-X 27(H) <22 ng/L 12/02/2024 7:42 AM EDT [facility] [employer], [facility] Blood VENOUS BLOOD / Unknown Venipuncture / Unknown 12/02/2024 7:08 AM EDT 12/02/2024 7:14 AM EDT Narrative [facility]REFERRED [employer] [facility] - 12/02/2024 7:42 AM EDT Ingestion of josé miguel doses of biotin (>5 mg/day) taken within 8 hours of drawing blood sample can interfere with this immunoassay test. Sundar Kessler APRN CHEMISTRY ORDERABLES Final Result Performing Organization Address [facility] Co de Phone Number [facility] [employer] [address] , [place] [address] * (ABNORMAL) REPEAT LACTIC ACID (12/02/2024 7:08 AM EDT) Lactic Acid 3.1(H) 0.5 - 1.9 mmol/L 12/02/2024 7:35 AM EDT [facility] [employer] [facility] Blood VENOUS BLOOD / Unknown Venipuncture / Unknown 12/02/2024 7:08 AM EDT 12/02/2024 7:15 AM EDT Sundar Kessler APRN CHEMISTRY ORDERABLES Final Result Performing Organization Address [facility] de Phone Number [facility] [employer] [address] , [place] [address] * EK EKG 12 LEAD (12/02/2024 7:01 AM EDT) Anatomical Region Laterality Modality Electrocardiogra phy 12/02/2024 7:17 AM EDT Impressions 12/02/2024 1:[address] [facility] Test Date: 2024-12-02 Pat Name: ALEX HOFFMAN Department: DEPID Room: 7308 Gender: Male Wellness Rn: Murray : 1975 Requested By: SUNDAR LAWRENCE Order Number: [id number] Reading MD: Forrest Johnston MD Measurements Intervals Parrott Rate: 92 P: 46 MD: 132 QRS: 13 QRSD: 85 T: 33 QT: 367 QTc: 454 Interpretive Statements SINUS RHYTHM Electronically Signed On 12-02-2024 13:57:21 EDT by Forrest Johnston MD Narrative Procedure Note Forrest Johnston MD - 12/02/2024 ROLAN Mac Test Date: 2024-12-02 Pat Name: ALEX HOFFMAN Department: DEPID Room: 7308 Gender: Male Wellness Rn: Murray : 1975 Requested By: SUNDAR MORENO Order Number: [id number] Reading MD: Forrest Johnston MD Measurements Intervals Parrott Rate: 92 P: 46 MD: 132 QRS: 13 QRSD: 85 T: 33 QT: 367 QTc: 454 Interpretive Statements SINUS RHYTHM Electronically Signed On 12-02-2024 13:57:21 EDT by Forrest Johnston MD Sundar Kessler MANAGER MEETING IMG ECG ORDERABLES F inal Result * (ABNORMAL) PROCALCITONIN (12/02/2024 5:05 AM EDT) Procalcitonin 0.62(H) <=0.49 ng/mL 12/02/2024 5:52 AM EDT [facility] Blood VENOUS BLOOD / Unknown Venipuncture / Unknown 12/02/2024 5:05 AM EDT 12/02/2024 5:11 AM EDT Narrative [facility] - 12/02/2024 5:52 AM EDT Procalcitonin <0.50 [...] progression to severe sepsis and/or septic shock. [employer] Linh Kessler APRN CHEMISTRY ORDERABLES Final Result Performing Organization Address [facility] de Phone Number [facility] [address] [place] [address] , [place] [address] * (ABNORMAL) LACTIC ACID (12/02/2024 5:04 AM EDT) Lactic Acid 3.5(H) 0.5 - 1.9 mmol/L 12/02/2024 5:31 AM EDT [facility] Blood VENOUS BLOOD / Unknown Venipuncture / Unknown 12/02/2024 5:04 AM EDT 12/02/2024 5:11 AM EDT Sundar Kessler APRN CHEMISTRY ORDERABLES Final Result Performing Organization Address [facility] de Phone Number [facility] [address] [place] [address] , [place] [address] * CREATININE BODY FLUID (12/02/2024 4:12 AM EDT) Creatinine BF 1.15 0.67 - 1.30 mg/dL 12/02/2024 5:03 AM EDT [facility] Body Fluid ABDOMEN / Unknown Collection / Unknown 12/02/2024 4:12 AM EDT 12/02/2024 4:29 AM EDT Narrative [facility] - 12/02/2024 5:03 AM EDT A reference interval for this test has not been established for body fluid specimens. The reference range listed reflects normal concentration of this analyte in blood. Sadi Haney MD BODY FLUIDS AND STOOLS OR DERABLES Final Result Performing Organization Address [facility] Co de Phone Number [facility] [address] [facility] , [place] [address] * (ABNORMAL) CBC WITH DIFF (12/02/2024 3:47 AM EDT) [facility] Signature WBC 21.8(H) 3.7 - 10.3 x10(3)/mc L [...] 4:21 AM EDT [facility] [place] Percent 10.4 % 12/02/2024 4:21 AM EDT [facility] Eos Percent 0.1 % 12/02/2024 4:21 AM EDT [facility] Baso Percent 0.1 % 12/02/2024 4:21 AM EDT [facility] Neut # 17.9(H) 1.6 - 6.1 x10(3)/mc L 12/02/2024 4:21 AM EDT [facility] Comment:Neutrophils equals s egs plus bands IMMGRAN# 0.2(H) 0.0 - 0.1 x10(3)/mc L 12/02/2024 4:21 AM EDT [facility] Comment:Automated count of m etamyelocytes, myelocytes and promyelocytes. An absolute IG <0.1 is reported as 0.0. Lymph # 1.4 1.2 - 3.9 x10(3)/mc L 12/02/2024 4:21 AM EDT [facility] [place] # 2.3(H) 0.3 - 0.9 x10(3)/mc L 12/02/2024 4:21 AM EDT [facility] Eos# 0.0 0.0 - 0.5 x10(3)/mc L 12/02/2024 4:21 AM EDT [facility] Baso # 0.0 0.0 - 0.1 x10(3)/mc L 12/02/2024 4:21 AM EDT [facility] RBC Morph Consistent with Red Cell Indices no units 12/02/2024 4:21 AM EDT [facility] Blood VENOUS BLOOD / Unknown Venipuncture / Unknown 12/02/2024 3:47 AM EDT 12/02/2024 3:50 AM EDT us Sadi Haney MD HEMATOLOGY ORDERABLES Fin al Result [facility], [facility] [address] [facility] , [place] [address] * (ABNORMAL) BASIC METABOLIC PANEL (12/02/2024 3:46 AM EDT) Sodium 136 136 - 145 mmol/L 12/02/2024 4:07 AM EDT [facility] Potassium 4.8 3.5 - 5.0 mmol/L 12/02/2024 4:07 AM EDT [facility] Chloride 103 98 - 107 mmol/L 12/02/2024 4:07 AM EDT [facility] Total CO2 17(L) 22 - 29 mmol/L 12/02/2024 4:07 AM EDT [facility] Anion Gap 16 7 - 16 mmol/L 12/02/2024 4:07 AM EDT [facility] Calcium 8.0(L) 8.6 - 10.4 mg/dL 12/02/2024 4:07 AM EDT [facility] Glucose Lvl 156(H) 70 - 99 mg/dL 12/02/2024 4:07 AM EDT [facility] BUN 21(H) 6 - 20 mg/dL 12/02/2024 4:07 AM EDT [facility] Creatinine 1.61(H) 0.67 - 1.30 mg/dL 12/02/2024 4:07 AM EDT [facility] eGFR (CKD-EPIcr 2020) 52(L) >=60 mL/min/1.7 3 m2 12/02/2024 4:07 AM EDT [facility] Comment:Estimated GFR was ca lculated using the CKD-EPIcr (2020) equation refit without race. The equation is recommended by the National Kidney Foundation - [place] [employer] Neph[employer] Task Force. Blood VENOUS BLOOD / Unknown Venipuncture / Unknown 12/02/2024 3:46 AM EDT 12/02/2024 3:50 AM EDT us Peace Rea APRN CHEMISTRY ORDERABLES Nadiya l Result [facility] [address] [place] [address] * (ABNORMAL) GLUCOSE METER POC (12/02/2024 2:58 AM EDT) [facility] Glucose Meter POC 148(H) 70 - 100 mg/dL 12/02/2024 3:00 AM EDT [facility] Sample Type Capillary 12/02/2024 3:00 AM EDT [facility] Patient Status Non-Critical Patient 12/02/2024 3:00 AM EDT [facility] Blood BLOOD SPECIMEN / Unknown 12/02/2024 2:58 AM EDT 12/02/2024 3:00 AM EDT Sadi Haney MD POINT OF CARE TEST ORDERA BLES Final Result 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 - Resection margins negative for carcinoma - Kidney and bladder cuff with chronic inflammation, negative for carcinoma. - Adrenal gland negative for carcinoma. - See synoptic report for details. 12/05/2024 4:20 PM EDT [facility] at 1620 EDT GROSS [...] 0.5 to 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 Paralegal sections are submitted as follows: A1-A3 = entire mass at UPJ to include adjacent uninvolved proximal ureter A4 = remaining proximal ureter A5-A6 = outside sales account representative dilated calyces A7-A8 equal all distal ureter with perpendicular bladder margin A9 = vascular margins from kidney A10 = all areas suggestive of adrenal parenchyma A11 = 1 bisected lymph node candidate A12 = 1 trisected lymph node candidate A13-A14 = largest lymph node candidate, trisected RIK Stover PA (ASCP) 12/05/2024 4:20 PM EDT [facility] MICROSCOPIC DESCRIPTION The microscopic examination may have been rendered in whole, or in part, by analyzing high-resolution digital images (whole slide images) on the [email or web address] Digital Pathology platform validated at [facility]. 12/05/2024 4:20 PM EDT [facility] BEST TISSUE BLOCK FOR ANCILLARY STUDIES A3 12/05/2024 4:20 PM T [facility] SYNOPTIC REPORT CHECKLIST URETER, RENAL [...] limited to this pathology report. pT Category: mis director pN Category: pN not assigned (no nodes submitted or found) ADDITIONAL FINDINGS Pathologic Findings in Ipsilateral Nonneoplastic Renal Tissue: None identified 12/05/2024 4:20 PM EDT [facility] EMBEDDED IMAGES 12/05/2024 4:20 PM EDT [facility] Tissue LEFT KIDNEY STRUCTURE / Unknown 12/01/2024 3:36 PM EDT 12/01/2024 4:31 PM EDT Sadi Haney MD PATHOLOGY ORDERABLES Nadiya nichols Result [facility] [address] [place], [place] [id number] [address] [id number] * US ANES GUIDANCE FOR POC (12/01/2024 [...] Previous History OK 12/01/2024 9:30 AM EDT [facility] Blood VENOUS BLOOD / Unknown Venipuncture / Unknown 12/01/2024 9:22 AM EDT 12/01/2024 9:26 AM EDT us Sadi Haney MD BLOOD BANK ORDERABLES Fin al Result Performing Organization Address City/[facility]/ZIP Co de Phone Number [address] [address] * ABORH (12/01/2024 9:22 AM EDT) ABORH Int B POS 12/01/2024 9:5 7 AM EDT [facility] Blood VENOUS BLOOD / Unknown Venipuncture / Unknown 12/01/2024 9:22 AM EDT 12/01/2024 9:26 AM EDT Sadi Haney MD BLOOD BANK ORDERABLES Fin al Result Performing Organization Address [facility] Co de Phone Number [facility] [place] [place] [address] * RED BLOOD CELLS REQUEST (11/23/2024 2:10 PM EDT) Product Code [id number] [facility] BLOOD BANK Unit Number [id number] [facility] BLOOD [facility] Crossmatch Interp Compatible [facility] BLOOD [facility] Dispense Status TRANSFUSED [facility] BLOOD [facility] Blood Expiration Date [id number] [facility]LO[facility] ISBT 128 Type 7300 [facility] BLOOD [facility] Blood Unit Volume 300 ml [facility] BLOOD [facility] BA CODING SYSTEM [id number] [facility] BLOOD [facility] Blood Type (Unit) B POS [facility] BLOOD BANK Blood 11/23/2024 2:10 PM EDT 11/23/2024 2:17 PM EDT [employer] BLOOD PRODUCT ORDERS Nadiya l Result Performing Organization Address City/[facility]/ZIP Co de Phone Number [facility] [place] [place] [address] * RED BLOOD CELLS REQUEST (11/23/2024 2:10 PM EDT) Product Code [id number] [facility] BLOOD BANK Unit Number [id number] [facility] BLOOD [facility] Crossmatch Interp Compatible [facility] BLOOD BANK Dis[facility]ense [facility] TRANSFUSED [facility] BLOOD [facility] Blood Expiration Date [facility] ISBT 128 Type 7300 [facility] Blood Unit Volume 300 ml [facility] BLOOD [facility] BA CODING SYSTEM [id number] [facility] BLOOD [facility] Blood Type (Unit) B POS [facility] Product Code [id number] [facility]LOOD [facility] Unit Number [id number] [facility] BLOOD [facility] Crossmatch Interp Compatible [facility] Dispense Status TRANSFUSED [facility] BLOOD [facility] Blood Expiration Date [facility] ISBT 128 Type 7300 [facility] BLOOD [facility] Blood Unit Volume 300 ml [facility] BLOOD [facility] BA CODING SYSTEM [id number] [facility] BLOOD [facility] Blood Type (Unit) B POS [facility] Blood 11/23/2024 2:10 PM EDT 11/23/2024 2:17 PM EDT Sadi Haney MD BLOOD PRODUCT ORDERS Nadiya l Result Performing Organization Address City/State/[facility] Co de Phone Number [place] [phone] documented in this encounter Visit Diagnoses Diagnosis [...] Code = BLACK RA Hazardous Waste Container BUPivacaine liposome (PF) (EXPAREL) [...] phenoL (CHLORASEPTIC) 1.4 % oral spray 1 Grady 1 Grady, Oral, EVERY 2 HOURS PRN, Starting on Wed12/04/24 at 2110, Until Wed12/08/24 at 1550, Sore Throat Given 12/04/2024 9:58 PM EDT 1 Grady Saccharomyces boulardii (FLORASTOR) capsule 250 mg 250 [...] 2220 (Given - Provider: Zeinab Deutsch RN) 210 (Given - Provider: Virginia Landis RN) cefTRIAXone [...] 2252 (Given - Provider: Zeinab Deutsch RN) 08 [...] Zeinab Deutsch RN) 0835 (Given - Provider: Mragie Diaz LPN)211 (Given - Provider: Virginia Landis [...] RN)210 (Given - Provider: Virginia Landis RN) 08 (Given - Provider: Mragie Diaz LPN) PRN Medication Order 12/06/2024 12/07/2024 12/08/2024 acetaminophen (TYLENOL) suppository 650 mg(Linked Group 2) 650 mg, Rectal, EVERY 4 HOURS PRN, Starting on Wed12/01/24 at 1851, Until Wed12/08/24 at 1550, Fever, Maximum adult dose of acetaminophen is 4000 mg from all sources in 24 hours., Post-op 05 (See Alternative - Provider: Zeinab Deutsch RN)173 (See Alternative - Provider: Yessy Oreilly RN)225 (See Alternative - Provider: Zeinab Deutsch RN) 0517 (See Alternative - Provider: Zeinab Deutsch RN)100 [...] Post-op 05 (Given - Provider: Zeinab Deutsch RN)1735 (Given - Provider: Yessy Oreilly RN)2252 (Given - Provider: Zeinab Deutsch RN) 0517 (Given - Provider: Zeinab Deutsch RN)1003 (Given - Provider: Margie Diaz LPN)210 (Given - Provider: Virginia Landis RN) 0542 [...] XRay/Fluoro (Contrasts) 1100 (Given - Provider: Bronwyn Do RT) diazePAM (VALIUM) tablet 5 mg 5 [...] phenoL (CHLORASEPTIC) 1.4 % oral spray 1 Grady(Linked Group 3) 1 Grady, Oral, EVERY 2 HOURS PRN, Starting on [...] needed. 0841 (IV Started - Provider: Yessy Oreilly, RN)1134 (IV Stopped by Other - Provider: [...] oral spray 1 SprayJump to med 1 Grady, Oral, EVERY 2 HOURS PRN, Starting on [...] tablet 10 mg 1 12/05/2024 Saccharomyces boulardii (KARIRE RASTOR) capsule 250 mg 1 12/05/2024 sodium chloride 0.9% IV line flush 20-50 mL 1 12/05/2024 sodium chloride 0.9% syringe 3 12/05/2024 11/30/2024 atorvastatin (LIPITOR) tablet 80 mg 2 12/0412/01/2024 benzocaine-menthoL (CEPACOL SORE THROAT) 15-3.6 mg 1 Lozenge 1 12/04/2024 phenoL (CHLORASEPTIC) 1.4 % oral spray 1 Grady 1 12/04/2024 diazePAM (VALIUM) tablet 5 mg [...] documented as of this encounter Care Teams Squilgeer Relationship Specialty Start Date End Date Reyna Perez APRN [address] [place] [address] [address] [place] [id number] PCP - General Nurse Practitioner 10/27/24 documented as of this encounter
--- OUTSIDE RECORDS SUMMARY | 2024-12-01 11:21 | XMS_ITS | Encounter Summary ---
Author Organization [place] [address] Care Team Providers Care Assignment Agent Name Role Phone Reyna Perez Jonathan ROMO Primary Care Provider [phone] Encounter Details Date Type Department Care Team (Late st Contact Info) Description 12/01/2024 11:21 AM EDT Anesthesia Event EDG PERIOP [facility] Dr. Galleg[place] [address] Tommy Romero DO [address] [place] [address] Kathy Dong APRN [address] [place] [address] Anesthesia Record Procedure Summary Procedure Name Responsible [...] Time out 1148 Incision 1217 Quick Note [place] not level during repositioning. Re leved after [...] acknowledgement of understanding from the receiving PACU/ICU preanalytics team lead 1648 An Stop Meds Name Total lidocaine [...] 12/01/24; 1552; 1; Midline, Inferior; Abdomen; 10 Serbian 12/01/24 1552 by Sonja Solis RN 12/08/24 [...] 1 Attempt 1 by: Travon Kerr Title: DSP ENGINEER * Jorge Alberto Hoang MD - 12/01/2024 [...] of the block is attached/scanned to the [employer] chart. 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 Pt was scheduled to have additional PCI to LAD and circ however pt wanted a second opinion for possible CABG surgery. He was seen by CTS (Dr. Kenny) on 10/10/2024 CTS planning CABG x 2 with QUINTIN clip--> currently on hold d/t urologic malignancy. Currently surgery is scheduled at [place]--discussed with Dr Bloom and surgery will need to be moved to [place] Will reach out to CTS and ensure patient is able to hold blood thinners for surgery Patient follows Dr Andrade in [facility]--will request records--recent heart cath and office note. However per patient and spouse planning on obtaining a new intermodal truck driver after CABG. In addition, PCP at [facility]-Dr Perez in [place]. Per patient he saw yesterday 11/23/2024. 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 Pt was scheduled to have additional PCI to LAD and circ however pt wanted a second opinion for possible CABG surgery. He was seen by CTS (Dr. Kenny) on 10/10/2024 CTS planning CABG x 2 with QUINTIN clip--> currently on hold d/t urologic malignancy. Currently surgery is scheduled at [place]--discussed with Dr Bloom and surgery will need to be moved to [place] Will reach out to CTS and ensure patient is able to hold blood thinners for surgery Patient follows Dr Andrade in [facility]--will request records--recent heart cath and office note. However per patient and spouse planning on obtaining a new intermodal truck driver after CABG. In addition, PCP at [facility]-Dr Perez in [place]. Per patient he saw yesterday 11/23/2024. Will request office note and recent testing as well PONV Risk Score: 2. Score of 2 is Moderate Risk for PONV, at least one antiemetic indicated for prophylaxis. Cardiology Clearance Requested Chart Reviewed and patient examined PAT GEM SETTER Notes Reason for visit: Cardiac: CAD [place], HTN and Coronary stents/PTCA CAD -enc smoking [...] Ureteral mass Effient & 81mg ASA PAT GEM SETTER Subjective: Patient here for preoperative management prior to Procedure(s): LEFT DAVINCI ROBOTIC NEPHROURETERECTOMY, CYSTOSCOPY, TRANSURETHRAL RESECTION OF THE BLADDER TUMOR . Patient needs evaluation due to increased risk for history of URETERAL MASS [place] CAD PCI HTN PAD CAROTID STENOSIS SMOKER. [...] 09/27/2024 (VIC x 1 to RCA) at [facility]. Pt was scheduled to have additional PCI to LAD and circ however pt wanted a second opinion for possible CABG surgery. He was seen by CTS (Dr. Kenny) on 10/10/2024 CTS planning CABG x 2 with QUINTIN clip--> currently on hold d/t urologic malignancy. Currently surgery is scheduled at [place]--discussed with Dr Bloom and surgery will need to be moved to [place] Will reach out to CTS and ensure patient is able to hold blood thinners for surgery Patient follows Dr Andrade in [facility]--will request records--recent heart cath and office note. However per patient and spouse planning on obtaining a new intermodal truck driver after CABG. In addition, PCP at [facility]-Dr Perez in [place]. Per patient he saw yesterday 11/23/2024. Will request office note and recent testing as well documented in this encounter Plan of Treatment Upcoming Encounters Date Type Department Care Team (Late st Contact Info) Description 01/23/2025 9:00 AM EDT Office Visit [facility] [place] [address] [place] [address] [address] [place] [address] Logan Kenny MD [address] [place] [address] [place] [address] documented as of this encounter Procedures Procedure Name Priority Date/Time Associated Diagnosis Comments INTRAOP AIRWAY PLACEMENT Routine 12/01/2024 11:33 AM EDT ANE US GUIDANCE Routine 12/01/2024 10:32 AM EDT documented in this encounter Results * INTRAOP AIRWAY PLACEMENT (12/01/2024 11:33 AM EDT) Narrative [facility] - 12/01/2024 11:33 AM EDT Desiree [...] 1 Attempt 1 by: Travon Kerr Title: DSP ENGINEER us Jorge Alberto Hoang MD [place] ANESTHESIA Edited Resul t - Final [facility] [address] [place] [address] * JEFFERY US GUIDANCE (12/01/2024 10:32 AM EDT) Narrative [facility] - 12/01/2024 10:32 AM EDT Jorge [...] Alberto Hoang MD ANESTHESIA ORDERABLES Final Result [place] [id number] documented in this encounter Visit Diagnoses Not [...] mL IVPB 1 g 1 g, Intravenous, OVEN STRIPPER TO O.R., 1 dose, On Wed12/01/24 at [...] mg documented in this encounter Care Teams Assignment Agent Relationship Specialty Start Date End Date Reyna Perez APRN [address] [facility] [address] [place] [address] PCP - General Nurse Practitioner 10/27/24 documented as of this encounter
--- OUTSIDE RECORDS SUMMARY | 2024-12-22 14:00 | XMS_ITS | Encounter Summary ---
Author Organization [place] [address] Care Team Providers Care Tar Pot Worker Name Role Phone Reyna Perez BINDERY SUPERVISOR Primary Care Provider Reason for Visit * Reason Comments Post-Operative Exam Here today for his p ost-op visit. His left side and abdomen still hurts a little, getting better though. Also voiding a lot during the day. Otherwise, no urinary symptoms. Was given a second round of antibiotics to treat his C.diff, stool still loose but this is normal for him. Wants to get cardiac stents placed, would like [facility] to clear him for this. Seeing cardiology next week, they will let him know when to start blood thinner again. wants to know more about chemo pill for patient. Encounter Details Date Type Department Care Team (Late st Contact Info) Description 12/22/2024 2:00 PM EDT Office Visit [facility] [address] [place] [address] Dorinda Rodriguez, PARandolph [address] [place] [address] Postoperative visit (Primary Dx); Malignant neoplasm of left ureter (HCC); S/p nephrectomy; C. difficile diarrhea Social History Tobacco Use Types Packs/Day Years Used Date Smoking Tobacco: Every Day Cigarettes 1 37.1 Started: 05/10/1989 Smokeless Tobacco: Never Tobacco Cessation:Ready to Q uit: Not Asked; Counseling Given: Not Answered Alcohol Use Standard Drinks/Week Comments Not Currently 0 (1 standard drink = 0.6 oz pur e alcohol) [facility] Utilities Answer Date Recorded In the past 12 months has [employer], gas, oil, or water company threatened to shut off services in your home? No 12/04/2024 Overall Financial Resource Strain (CARDIA) Answe r Date Recorded How hard is it for you to pa y for the very basics like food, housing, medical care, and heating? Somewhat hard 12/04/2024 PHQ-2 Answer Date Recorded PHQ-2 Total Score 0 12/04/2024 [facility] - Occupational Stress Questionnaire Answer Date Recorded [...] have money to get more. Never true [facility] IP Transportation Answer D ate Recorded In [...] Sign Reading Time Taken Comments Blood Pressure 138/86 12/22/2024 1:55 PM EDT Pulse 95 12/22/2024 1:55 PM EDT Temperature 37 C (98.6 F) 12/22/2024 1:55 PM EDT Respiratory Rate - - Oxygen Saturation 97% 12/22/2024 1:55 PM EDT Inhaled Oxygen Concentration - - Weight 104.6 kg (230 lb 9.6 oz) 12/22/2024 1:55 PM EDT Height - - Body Mass Index 35.06 12/01/2024 8:06 PM EDT documented in this encounter Plan of Treatment Upcoming Encounters Date Type Department Care Team (Late st Contact Info) Description 01/23/2025 9:00 AM EDT Office Visit [facility] [place] [address] [place] [address] [address] [place] [address] Logan Kenny MD [address] [place] [address] [place] [address] documented as of this encounter Procedures Procedure Name Priority Date/Time Associated Diagnosis Comments SEP URINALYSIS POC Routine 12/22/2024 2: 00 PM EDT Postoperative visit 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 difficile diarrhea documented in this encounter Results * (ABNORMAL) [facility] URINALYSIS POC (12/22/2024 2:00 PM EDT) UA Color POC Yellow Color 12/22/2024 2:02 PM EDT [facility] UA Appear POC Clear Clear 12/22/2024 2:02 PM EDT [facility] UA Gluc POC Negative Negative mg/dL 12/22/2024 2:02 PM EDT [facility] UA Bili POC Negative Negative 12/22/2024 2:02 PM EDT [facility] UA Ketones POC Negative Negative mg/dL 12/22/2024 2:02 PM EDT [facility] UA SG POC 1.020 1.001 - 1.035 no units 12/22/2024 2:02 PM EDT [facility] UA Blood POC Trace-Intact (A) Negative 12/22/2024 2:02 PM EDT [facility] UA pH POC 6.5 5.0 - 8.0 pH 12/22/2024 2:02 PM EDT [facility] UA Protein POC Negative Negative mg/dL 12/22/2024 2:02 PM EDT [facility] UA Urobilinogen POC 0.2 0.2, 1.0 12/22/2024 2:02 PM EDT [facility] UA Nitrite POC Negative Negative 12/22/2024 2:02 PM EDT [facility] [place] UA Leuk Est POC Negative Negative 2:02 PM EDT [facility] Urine STRUCTURE OF URINARY TRACT PROPER / Unknown 12/22/2024 2:00 PM EDT 12/22/2024 2:02 PM EDT Dorinda Rodriguez PA-C POINT OF CARE TEST ORDERAB LES Final Result [facility] [place] [address] [place] [address] documented in this encounter Visit Diagnoses Diagnosis Postoperative visit- Primary Malignant neoplasm of left ureter (HCC) Malignant neoplasm of ureter S/p nephrectomy Acquired absence of kidney C. difficile diarrhea Intestinal infection due to clostridium difficile documented in this encounter Additional Health Concerns Infection Onset Date Last Indicated Resolved Time C-diff 12/06/2024 12/06/2024 documented as of this encounter Care Teams Tar Pot Worker Relationship Specialty Start Date End Date Reyna Perez APRN [address] [facility] [address] [place] [id number] PCP - General Nurse Practitioner 10/27/24 documented as of this encounter
[2024-12-28] VITALS (17 sets, daily range): BP systolic 114–140; BP diastolic 69–92; PULSE 60–90; RESP 14–21; TEMP 36.4–36.7; O2SAT 96–100; BMI 34.3; BMI 34.7
--- NOTE | 2024-12-28 03:45 | ECG_ITS ---
APPROVED REPORT Exam: Resting ECG HR:76 bpm ECG Measurements Heart Rate 76 AXES MS 137 P 37 QRSd 100 QRS 15 QT 381 T 27 QTc 411 Conclusion SINUS RHYTHM NORMAL ECG No STEMI Electronically signed by : GRANT GUADALUPE, 12/28/2024 06:26:35
--- NOTE | 2024-12-28 03:47 | XR_ITS ---
PROCEDURE INFORMATION: Exam: XR Chest Exam date and time: 12/28/2024 4:37 AM Age: 49 years old Clinical indication: Pain; Chest pressure; Additional info: Cp worse laying down TECHNIQUE: Imaging protocol: Radiologic exam of the chest. Views: 2 views. COMPARISON: CT ANGIO CHEST PE PROTOCOL 11/09/2024 4:37 AM FINDINGS: Lungs: Unremarkable. No consolidation. Pleural spaces: Unremarkable. No pleural effusion. No pneumothorax. Heart/Mediastinum: Unremarkable. No cardiomegaly. Bones/joints: Unremarkable. IMPRESSION: No acute findings.
[2024-12-28] MEDS: ASPIRIN 81MG CHEWABLE TABLET 324 MG PO (03:52)
--- NOTE | 2024-12-28 04:01 | HMH.EDCP ---
Discharge Plan Disposition Patient Disposition: Admitted Condition: Fair Prescriptions Prescriptions: No Action nicotine 14 mg/24 hr patch 24 hour 1 patch transdermal DAILY Qty: 42 0RF hydrocortisone-pramoxine 2.5-1 % cream 1 applic VA QID PRN (Reason: hemorrhoids) Qty: 30 2RF atorvastatin [Lipitor] 80 mg tablet 80 mg PO DAILY Qty: 90 1RF coenzyme Q10 [Q-Sorb Co Q-10] 100 mg capsule 100 mg PO DAILY Qty: 90 1RF Patient Comments: TAKE 1 CAPSULE BY MOUTH ONCE DAILY lansoprazole 30 mg capsule,delayed release(DR/EC) 30 mg PO BID Qty: 90 1RF losartan 50 mg tablet 50 mg PO DAILY Qty: 90 3RF metoprolol succinate 25 mg tablet extended release 24 hr 25 mg PO DAILY Qty: 90 3RF prasugrel HCl [Effient] 10 mg tablet 10 mg PO DAILY 30 Days Qty: 90 1RF tolterodine 4 mg capsule,extended release 24hr 4 mg PO ONCE tramadol 50 mg tablet 50 mg PO DAILY PRN vancomycin 125 mg capsule 125 mg PO QID hydroxyzine pamoate 25 mg capsule 25 mg PO HS PRN furosemide [Lasix] 40 mg tablet 40 mg PO DAILY Qty: 90 3RF ondansetron HCl 4 mg tablet 4 mg PO Q8H PRN (Reason: nausea and vomiting) Qty: 20 0RF Probiotic Formula (inulin) 1 billion-250 cell-mg capsule 1 cap PO DAILY Qty: 100 10RF aspirin 81 mg tablet,delayed release (DR/EC) 81 mg PO DAILY Qty: 90 3RF fidaxomicin 200 mg tablet 200 mg PO .COMPLEX Qty: 20 0RF Rx Instructions: 200 mg orally BID x 5 days then every other day for 20 days famotidine 40 mg tablet 40 mg PO BID cholecalciferol (vitamin D3) 25 mcg (1,000 unit) capsule 25 mcg PO DAILY albuterol sulfate 90 mcg/actuation aerosol powdr breath activated 2 inh inhalation Q6H PRN (Reason: shortness of breath or wheezing) Qty: 1 0RF hydroxyzine pamoate 50 mg capsule 50 mg PO TID PRN (Reason: anxiety) Qty: 30 0RF Referrals Follow up/Referrals: Provider,Referral, MD [Primary Care Provider, Medical] - See instructions Clinical Impressions Clinical Impression: Unstable angina Print Language Print Language: Sami Discharge ED Provider: Karla Johns General Chief Complaint: Chest Pain Stated Complaint: Chest Pain Time Seen by Provider: 12/28/24 03:47 History of Present Illness HPI narrative: 49-year-old male with history of CAD with stents, GERD, nephrectomy less than 1 month ago for renal cell carcinoma presents to the ER with chest pressure for approximately 2 hours. He states it is worse when lying down and better when sitting up. Patient reports this woke him up from sleep. Patient has an extensive cardiac history both personally and in his family. He reports he was supposed to be scheduled for CABG but as he was being worked up preoperatively that identified kidney cancer. Patient had nephrectomy at the end of November and in the postoperative period has had pneumonia and C. difficile. He is currently on a second agent for C. difficile to ensure that it is eradicated but has been told that he is no longer contagious. He has no cough or difficulty breathing and believes he is over the pneumonia. He states his chest pain feels like pressure in the center of the chest, nonradiating, he has no dizziness, headache, nausea, vomiting, or other associated symptoms at this time. Patient reports he is refusing CABG because he will never have a surgery again after all the complications he is experienced post nephrectomy. He and family report that he is known to have at least 70% stenosis of the LAD. Review of recent records from cardiology demonstrates he has expressed this to cardiology and that they are planning to reevaluate him for left heart cath around the end of this month or beginning of January. Patient has no fevers or chills, no leg swelling or redness, no other associated symptoms at this time. Related Data Home Medications ?Medication ?Instructions ?Recorded ?Confirmed cholecalciferol (vitamin D3) 25 25 mcg PO DAILY 11/09/24 12/12/24 mcg (1,000 unit) capsule famotidine 40 mg tablet 40 mg PO BID 11/09/24 12/12/24 hydroxyzine pamoate 25 mg capsule 25 mg PO HS PRN 12/12/24 12/12/24 tolterodine 4 mg capsule,extended 4 mg PO ONCE 12/12/24 12/12/24 release 24 hr tramadol 50 mg tablet 50 mg PO DAILY PRN 12/12/24 12/12/24 vancomycin 125 mg capsule 125 mg PO QID 12/12/24 12/12/24 Previous Rx's ?Medication ?Instructions ?Recorded furosemide 40 mg tablet (Lasix) 40 mg PO DAILY #90 tabs 12/02/23 Bacillus coagulans-inulin 1 1 cap PO DAILY #100 caps 02/25/24 billion cell-250 mg capsule (Probiotic Formula (inulin)) aspirin 81 mg tablet,delayed 81 mg PO DAILY #90 tabs 09/04/24 release nicotine 14 mg/24 hr daily 1 patch transdermal DAILY #42 ea 09/26/24 transdermal patch atorvastatin 80 mg tablet (Lipitor) 80 mg PO DAILY #90 tabs 10/24/24 coenzyme Q10 100 mg capsule 100 mg PO DAILY #90 caps 10/24/24 (Q-Sorb Co Q-10) hydrocortisone-pramoxine 2.5 %-1 % 1 applic VA QID PRN hemorrhoids 10/24/24 rectal cream #30 grams lansoprazole 30 mg capsule,delayed 30 mg PO BID #90 caps 10/24/24 release losartan 50 mg tablet 50 mg PO DAILY #90 tabs 10/24/24 metoprolol succinate 25 mg 25 mg PO DAILY #90 tabs 10/24/24 tablet,extended release 24 hr prasugrel HCl 10 mg tablet 10 mg PO DAILY 30 days #90 tabs 10/24/24 (Effient) albuterol sulfate 90 mcg/actuation 2 inh inhalation Q6H PRN shortness 11/09/24 breath activated powder inhaler of breath or wheezing #1 ea hydroxyzine pamoate 50 mg capsule 50 mg PO TID PRN anxiety #30 caps 11/09/24 ondansetron HCl 4 mg tablet 4 mg PO Q8H PRN nausea and 12/11/24 vomiting #20 tabs fidaxomicin 200 mg tablet 200 mg PO .COMPLEX #20 tabs 12/18/24 Allergies Allergy/AdvReac Type Severity Reaction Status Date / Time No Known Allergies Allergy Verified 12/12/24 13:23 [facility] Disclaimer: The information contained in this section may have been updated after the patient was seen, as this information can be updated by other users. Medical History (Updated 12/28/24 @ 05:46 by Karla Johns MD) Carcinoma of left ureter Renal cancer Anemia SOB (shortness of breath) C. difficile colitis SOBOE (shortness of breath on exertion) Fatigue Tobacco dependence GERD (gastroesophageal reflux disease) Right shoulder pain Vitamin D deficiency Diastolic dysfunction Coronary artery disease Claudication Edema of both lower extremities Dizziness Abnormal result of cardiovascular function study Abnormal stress test Family history of early CAD Chest pain Hyperlipidemia Essential hypertension Surgical History History of left nephrectomy History of heart artery stent Hx of cardiac cath Family History Grandmother Cancer Father Diabetes Heart attack Hypertension Mother Hypertension Social History Smoking Status: Former smoker alcohol intake: never current occupational status: employed Travel in the last 8 weeks?: None Other Medical History Have you received the Flu Vaccine for this season: No Have you received the Pneumonia Vaccine: No ROS Obtained: Yes Systems reviewed as appropriate & no additional complaints except as documented Per HPI Physical Exam General General appearance: alert, in no apparent distress and obese Head Head exam: atraumatic and normocephalic Eye Eye exam: Present PERRL and EOMI ENT ENT exam: Present mucous membranes moist Neck Neck exam: Present normal inspection and full ROM Chest Chest inspection: Present symmetric chest wall rise; Absent tenderness Respiratory Respiratory exam: Present normal lung sounds bilaterally; Absent respiratory distress, wheezes or stridor Cardiovascular Cardiovascular exam: Present regular rate and normal rhythm Abdominal Exam Abdominal exam: Present soft and tenderness (Very mild appropriate in the postop period and only localized near the incision); Absent distention, guarding or rebound Comment: Well-healing midline surgical incision with no dehiscence, erythema, fluctuance, or other abnormalities Extremities Exam Extremities exam: Present full ROM and edema (Trace bilateral lower extremity) Neurological Exam Neurological exam: Present alert and oriented X3; Absent motor sensory deficit Psychiatric Psychiatric exam: Present normal affect and normal mood Skin Skin exam: Present warm and dry HEART Score HEART Score HEART Score assessment performed?: Yes History (anamnesis): Moderately suspicious ECG: Normal Age: 45-65 years Risk factors: Atherosclerosis history Troponin: </= normal limit HEART Score: 4 Procedures Miscellaneous Procedure Procedure Performed: Limited Cardiac Ultrasound Indication: Chest pressure Identified cardiac views: [-Cardiac parasternal long axis] [-Cardiac parasternal short axis] [-Cardiac subxiphoid] Apical four-chamber not able to be obtained secondary to poor acoustic window Findings: Cardiac activity present with no gross wall motion abnormality, trace pericardial effusion versus fat pad present but no tamponade, no right heart strain Impression: Cardiac activity present with no gross wall motion abnormality, trace pericardial effusion versus fat pad present but no tamponade, no right heart strain Images were saved to permanent archive The study was technically adequate CPT: 64649 This study was performed by me, and I personally interpreted all images/videos. Based on my clinical judgement, these images were adequate and did not necessitate further imaging. Critical Care Critical Care Time Critical Care Time: No Medical Decision Making Medical Records Medical records reviewed: Yes I reviewed the patient's medical records. MR Comment: See HPI Ignacio Inquiry Pt receiving controlled substance: No Vital Signs Vital Signs: 12/28/24 03:52 Temperature 97.6 F Temperature Source Oral Pulse Rate [Left] 75 Respiratory Rate 16 Blood Pressure [Right Arm] 137/78 Blood Pressure Mean [Right Arm] 97 Blood Pressure Source [Right Arm] Automatic Cuff Blood Pressure Position [Right Arm] Sitting 02 Sat by Pulse Oximetry 98 Oxygen Delivery Method Room Air Lab Data Labs: Lab Results 12/28/24 03:50: WBC 8.2, RBC 3.90 L, Hgb 11.7 L, Hct 35.5 L, MCV 91.0, MCH 30.0, MCHC 33.0, RDW 13.9, Plt Count 247, MPV 9.3, Neut % (Auto) 65.2, Lymph % (Auto) 22.0, Frederick % (Auto) 9.5 H, Eos % (Auto) 2.4, Baso % (Auto) 0.4, Neut # (Auto) 5.4, Lymph # (Auto) 1.8, Frederick # (Auto) 0.8, Eos # (Auto) 0.2, Baso # (Auto) 0.0, PT 11.0, INR 0.99, D-Dimer 1.06 H, Sodium 140, Potassium 4.0, Chloride 106, Carbon Dioxide 24, Anion Gap 14.0, BUN 13, Creatinine 1.00, Estimated Creat Clear 128, Estimated GFR 79, Est GFR ( Amer) 96, Glucose 95, Calcium 9.0, Total Bilirubin 0.5, AST 28, ALT 34, Alkaline Phosphatase 115, Troponin I < 0.01, C-Reactive Protein 3.8, NT-Pro-B Natriuret Pep 250 H, Total Protein 6.7, Albumin 4.2, Globulin 2.5, Albumin/Globulin Ratio 1.7 12/28/24 03:50 12/28/24 03:50 Response Orders (Tests/Meds): ED MEDICATIONS Generic Name Dose Route Start Last Admin Trade Name Freq PRN Reason Stop Dose Admin Nitroglycerin 0.4 mg 12/28/24 03:47 12/28/24 04:07 Nitroglycerin 0.4mg Sl Tablet SL 12/29/24 03:47 0.4 mg Q5MINP PRN Administration Chest Pain Discontinued Medications Generic Name Dose Route Start Last Admin Trade Name Freq PRN Reason Stop Dose Admin Acetaminophen 1,000 mg 12/28/24 04:55 12/28/24 04:58 Acetaminophen 500mg Tab PO 12/28/24 04:56 1,000 mg ONCE ONE Administration Aspirin 324 mg 12/28/24 03:47 12/28/24 03:52 Aspirin 81mg Chewable Tablet PO 12/28/24 03:48 324 mg ONCE ONE Administration Belladonna Alkaloids 60 ml 12/28/24 04:09 12/28/24 04:11 Belladonna Alkaloids 60 Ml Ml PO 12/28/24 04:10 60 ml ONCE ONE Administration Lactated Ringer's 500 mls @ 999 mls/hr 12/28/24 04:59 12/28/24 05:04 Lactated Ringer's 500ml IV 12/28/24 05:29 999 mls/hr .Q31M ONE Administration Iopamidol 70 ml 12/28/24 05:30 12/28/24 05:31 Iopamidol-370 (76%);100ml Bottle IV 12/28/24 05:31 70 ml ONCE ONE Administration Morphine Sulfate 4 mg 12/28/24 04:36 12/28/24 04:55 Morphine 4mg/Ml Syringe IV 12/28/24 04:37 Not Given ONCE ONE Ondansetron HCl 4 mg 12/28/24 04:36 12/28/24 04:55 Ondansetron 4mg/2ml Vial IV 12/28/24 04:37 Not Given ONCE ONE Sodium Chloride 50 ml 12/28/24 05:30 12/28/24 05:32 0.9 % Sodium Chloride 50 Ml Vial IV 12/28/24 05:31 50 ml ONCE ONE Administration Sodium Chloride 10 ml 12/28/24 05:30 12/28/24 05:31 Sodium Chloride 0.9% 10ml Syr (Rad Only) IV 12/28/24 05:31 10 ml ONCE ONE Administration ORDERS Category Date Time Status CT angio chest PE protocol Stat Cat Scan 12/28/24 04:58 Completed POCUS Point of Care (ER Only) Stat Exams 12/28/24 03:47 Completed XR chest 2V Stat Exams 12/28/24 03:47 Completed CRP [C-Reactive Protein] Stat Lab 12/28/24 03:50 Completed Complete Blood Count Auto Diff Stat Lab 12/28/24 03:50 Completed Comprehensive Metabolic Panel Stat Lab 12/28/24 03:50 Completed D-Dimer Stat Lab 12/28/24 03:50 Completed NT Pro Brain Natriuretic Pep. Stat Lab 12/28/24 03:50 Completed Prothrombin Time INR Stat Lab 12/28/24 03:50 Completed Troponin I Q3H Lab 12/28/24 07:00 Ordered Troponin I Q3H Lab 12/28/24 10:00 Ordered Troponin I Stat Lab 12/28/24 03:50 Completed MDM Narrative Medical Decision Narrative: In summary, this 49-year-old male with comorbidities described in the HPI not at goal therapy presents to the emergency department today with chest pressure. On initial evaluation patient is hemodynamically stable, afebrile, on exam chest pain is not able to be exacerbated with palpation, lungs clear bilaterally, abdominal incision well-healing, appropriate very mild tenderness near the incision of the abdomen with no rebound or guarding, I do not have acute concerns about the abdomen. Differential diagnosis includes but is not limited to ACS, PE, esophageal spasm, pneumothorax, pericarditis, among others. Based on these concerns, I ordered hematologic and serum labs, cardiac workup, chest x-ray, D-dimer, inflammatory markers ECG personally interpreted demonstrates normal sinus rhythm, rate 76, normal axis, normal VA and QTc, no STEMI. Patient received aspirin, nitro for treatment. Labs personally reviewed demonstrate No leukocytosis, anemia improved from prior, normal platelets, PT/INR normal, CMP normal. BNP elevated at 250 which is new but patient has no evidence of volume overload otherwise, will not treat this at this time. Troponin undetectably low less than 0.01 offering some reassurance in the setting of nonischemic appearing ECG. Patient reports mild improvement of symptoms since receiving nitro and GI cocktail but symptoms are still present. Morphine, Zofran being administered. Patient was also placed on nasal cannula for comfort. CRP normal reassuring against pericarditis. I performed rviro-tu-goin ultrasound which demonstrates no acute abnormality though there is trace pericardial effusion versus fat pad. No tamponade. With the normal CRP unlikely to be effusion due to pericarditis. Chest x-ray personally interpreted does not demonstrate acute intrathoracic abnormality, no lobar infiltrate, no pneumothorax, no widened mediastinum, see radiology read for final interpretation. D-dimer resulted elevated at 1.06, this is likely secondary to recent operation but with the elevation in his symptoms I do believe it is important to proceed with CTA PE since he is in the postoperative period still. Since he has good kidney function I am going to proceed with PE scan. I discussed the contrast with patient and family that I believe there is no significant risk to his healthy kidney especially with very good kidney function. I am also giving him a small fluid bolus to help flush any contrast from his system. They are agreeable to proceed with the study. CTA PE personally interpreted does not demonstrate large segmental or subsegmental PE, see radiology read for final interpretation. At this time I believe patient is appropriate for admission to the hospital for unstable angina given his presentation with chest pain, extensive history of CAD, and previously known need for additional intervention due to at least 70% stenosis of LAD. Patient and family are agreeable to admission. I discussed this case with the hospitalist, Jocy, and after discussion of patient's reasoning for not wanting to proceed with CABG and having otherwise reassuring workup in the ER patient was graciously accepted to the hospitalist service for admission. Admitted in stable condition.
[2024-12-28 04:02] LABS: Hematocrit 35.5 % (42.0-52.0); Hemoglobin 11.7 g/dL (14.1-18.0); Immature Granulocytes % 0.5 %; Mean Corpuscular HGB Conc 33.0 g/dL (31.8-35.4); Mean Corpuscular Hemoglobin 30.0 pg (27.0-31.2); Mean Corpuscular Volume 91.0 fl (80-94); Nucleated Red Blood Cells % 0 %; Platelet Count 247 K/mm3 (142-424); Red Blood Count 3.90 M/mm3 (4.60-6.20); Red Cell Distribution Width-SD 46.4 fL; White Blood Count 8.2 K/mm3 (4.8-10.8)
[2024-12-28] MEDS: NITROGLYCERIN 0.4MG SL TABLET 0.4 MG SL (04:07)
[2024-12-28 04:09] LABS: Alanine Aminotransferase 34 U/L (12-78); Albumin Level 4.2 g/dl (3.5-5.0); Albumin/Globulin Ratio 1.7 (1.1-1.8); Alkaline Phosphatase 115 U/L (38-126); Anion Gap 14.0 mEq/L (5-15); Aspartate Amino Transferase 28 U/L (17-59); Bilirubin,Total 0.5 mg/dl (0.2-1.3); Blood Urea Nitrogen 13 mg/dl (9-20); Calcium 9.0 mg/dl (8.4-10.2); Carbon Dioxide 24 mmol/L (22.0-30.0); Chloride 106 mmol/L (98-107); Creatinine Clearance Estimated 128 mL/min (50-200); Creatinine,Serum 1.00 mg/dl (0.66-1.25); Estimated Glomerular Filt Rate 79 ml/min (>60); GFR (African American) 96 ML/MIN (>60); Globulin 2.5 g/dL (1.3-3.2); Glucose 95 mg/dl (74-100); INR 0.99 (0.9-1.1); Potassium 4.0 mmoL/L (3.5-5.1); Prothrombin Time 11.0 seconds (10.1-12.5); Sodium 140 mmol/L (136-145); Total Protein,Serum 6.7 g/dl (6.3-8.2)
[2024-12-28] MEDS: BELLADONNA ALKALOIDS 60 ML ML PO (04:11)
[2024-12-28 04:15] LABS: C-Reactive Protein 3.8 mg/L (0-4)
--- OUTSIDE RECORDS SUMMARY | 2024-12-28 04:18 | XMS_ITS | Clinical Summary ---
Author Organization [facility] Address [address] [place] [phone] Phone Care Team Providers Care Manager Zone Name Role Phone Unavailable Unavailable Conditions or Problems No information available. Medications No information available. Medications Administered No information available. Allergies, Adverse Reactions, Alerts No information available. Results No information available. Plan of Care No information available. Procedures No information available. Vital Signs No information available. Immunizations No information available. Advance Directives No information available.
--- OUTSIDE RECORDS SUMMARY | 2024-12-28 04:18 | XMS_ITS | Encounter Summary ---
Author Organization [place] [address] Care Team Providers Care Blending Operator Name Role Phone Reyna Perez DEMETRIUS Primary Care Provider Reason for Visit * Reason Onset Date Comments Schedule Appointment 12/08/2024 Encounter Details Date Type Department Care Team (Late st Contact Info) Description 12/08/2024 Telephone SEP Urology NPT[facility]TT [address] [place] [address] Dorinda Rodriguez PA-C [address] [place] [address] Schedule Appointment Social History Tobacco Use Types Packs/Day Years Used Date Smoking Tobacco: Every Day Cigarettes 1 37.1 Started: 05/10/1989 Smokeless Tobacco: Never Alcohol Use Standard Drinks/Week Comments Not Currently 0 (1 standard drink = 0.6 oz pur e alcohol) [facility] Utilities Answer Date Recorded In the [...] Date Recorded PHQ-2 Total Score 0 12/04/2024 [facility] [place] of Occupat ional Health - Occupational Stress [...] have money to get more. Never true [facility] H[facility]N [facility] IP Transportation Answer D ate Recorded In [...] Description 01/23/2025 9:00 AM EDT Office Visit [facility] Cardiac Surgeons [address] [place] [address] Logan Kenny MD [address] [place] [address] documented as of this encounter Visit Diagnoses Not on filedocumented in this encounter Additional Health Concerns Infection Onset Date Last Indicated Resolved Time C-diff 12/06/2024 12/06/2024 documented as of this encounter Care Teams Blending Operator Relationship Specialty Start Date End Date Reyna Perez APRN 1210 [facility] [address] [place] [address] PCP - General Nurse Practitioner 10/27/24 documented as of this encounter
--- OUTSIDE RECORDS SUMMARY | 2024-12-28 04:19 | XMS_ITS | Encounter Summary ---
Author Organization [facility] [place] [address] Care Team Providers Care Transport Tank Technician Name Role Phone Reyna Perez APRN Primary Care Provider [phone] Encounter Details Date Type Department Care Team [...] 8:11 PM EDT Viri Segura RN * [place] Suicide Severity Rating Scale (Q shift for [...] Description 01/23/2025 9:00 AM EDT Office Visit [facility] Cardiac Surgeons [address] [place] [address] Logan Kenny MD [address] [place] [address] documented as of this encounter Visit Diagnoses Not on filedocumented in this encounter Care Teams Transport Tank Technician Relationship Specialty Start Date End Date Reyna Perez APRN 1210 [facility] [address] [place] [address] PCP - General Nurse Practitioner 10/27/24 documented as of this encounter
--- OUTSIDE RECORDS SUMMARY | 2024-12-28 04:19 | XMS_ITS | Encounter Summary ---
Author Organization [place] [address] Care Team Providers Care Lead Mechanical Engineer Name Role Phone Reyna Perez DEMETRIUS Primary Care Provider [phone] Reason for Visit * Reason Onset Date Comments Schedule Appointment 12/04/2024 Encounter Details Date Type Department Care Team (Late st Contact Info) Description 12/04/2024 Telephone SEP Urology [facility] [address] [place] [address] Sadi Haney MD 7370 [facility] [address] [place], [place] [id number] Schedule Appointment Social History Tobacco Use Types Packs/Day Years Used Date Smoking Tobacco: Every Day Cigarettes 1 37.1 Started: 05/10/1989 Smokeless Tobacco: Never Alcohol Use Standard Drinks/Week Comments Not Currently 0 (1 standard drink = 0.6 oz pur e alcohol) [facility] Utilities Answer Date Recorded In the past 12 months has [employer], gas, oil, or water [employer] threatened to shut off services in your home? No 12/04/2024 Overall Financial Resource Strain (CARDIA) Answe r Date Recorded How hard is it for you to pa y for the very basics like food, housing, medical care, and heating? Somewhat hard 12/04/2024 PHQ-2 Answer Date Recorded PHQ-2 Total Score 0 12/04/2024 [facility] [place] of Occupat ional Health - Occupational Stress [...] have money to get more. Never true [facility] IP Transportation Answer D ate Recorded [...] 9:00 AM EDT Office Visit [facility] Cardiac Surgeons [address] [place] [address] Logan Kenny MD [address] [place] [address] documented as of this encounter Visit Diagnoses Not on filedocumented in this encounter Additional Health Concerns Infection Onset Date Last Indicated Resolved Time R/O C-Diff 12/06/2024 12/06/2024 12/06/2024 1:17 PM EDT C-diff 12/06/2024 12/06/2024 documented as of this encounter Care Teams Lead Mechanical Engineer Relationship Specialty Start Date End Date Reyna Perez APRN 1210 [facility] [address] [place] [id number] PCP - General Nurse Practitioner 10/27/24 documented as of this encounter
--- OUTSIDE RECORDS SUMMARY | 2024-12-28 04:20 | XMS_ITS | Encounter Summary ---
Author Organization [place] [address] Care Team Providers Care Header Operator Name Role Phone Reyna Perez DEMETRIUS Primary Care Provider [phone] Reason for Visit * Reason Onset Date Comments Results 12/11/2024 Encounter Details Date Type Department Care Team (Late st Contact Info) Description 12/11/2024 Results Follow-Up SE[facility] Urology [place] [address] [place] [address] Sadi Haney MD 7[address] [facility] [address] [place] [address] PATHOLOGY TISSUE REQUEST Social History Tobacco Use Types Packs/Day Years Used Date Smoking Tobacco: Every Day Cigarettes 1 37.1 Started: 05/10/1989 Smokeless Tobacco: Never Alcohol Use Standard Drinks/Week Comments Not Currently 0 (1 standard drink = 0.6 oz pur e alcohol) [facility] Utilities Answer Date Recorded In the past 12 months has [employer], gas, oil, or water [employer] threatened to shut off services in your home? No 12/04/2024 Overall Financial Resource Strain (CARDIA) Answe r Date Recorded How hard is it for you to pa y for the very basics like food, housing, medical care, and heating? Somewhat hard 12/04/2024 PHQ-2 Answer Date Recorded PHQ-2 Total Score 0 12/04/2024 [facility] [place] of Occupat ional Health - Occupational Stress [...] have money to get more. Never true [facility] H[facility]N [facility] IP Transportation Answer D ate [...] 5 yrs and then annually - with [facility] documented in this encounter Plan of Treatment Upcoming Encounters Date Type Department Care Team (Late st Contact Info) Description 01/23/2025 9:00 AM EDT Office Visit [facility] Cardiac Surgeons [place] [address] [place] [address] [place] [address] Logan Kenny MD [address] [place] [address] KATIA SELLERS [address] documented as of this encounter Visit Diagnoses Not on filedocumented in this encounter Additional Health Concerns Infection Onset Date Last Indicated Resolved Time C-diff 12/06/2024 12/06/2024 documented as of this encounter Care Teams Header Operator Relationship Specialty Start Date End Date Reyna Perez APRN 1210 [facility] [address] [place] [address] PCP - General Nurse Practitioner 10/27/24 documented as of this encounter
--- OUTSIDE RECORDS SUMMARY | 2024-12-28 04:20 | XMS_ITS | Encounter Summary ---
Author Organization [facility] [place] [address] Care Team Providers Care Executor Of Estate Name Role Phone Reyna Perez APRN Primary Care Provider [phone] Encounter Details Date Type Department Care Team [...] Description 01/23/2025 9:00 AM EDT Office Visit [facility] Cardiac Surgeons [address] [place] [address] Logan Kenny MD [address] [place] [address] documented as of this encounter Visit Diagnoses Not on filedocumented in this encounter Care Teams Executor Of Estate Relationship Specialty Start Date End Date Reyna Perez APRN 1210 [facility] [address] [place] [address] PCP - General Nurse Practitioner 10/27/24 documented as of this encounter
--- OUTSIDE RECORDS SUMMARY | 2024-12-28 04:20 | XMS_ITS | Encounter Summary ---
Author Organization [place] [address] Care Team Providers Care Reconditioner Name Role Phone Reyna Perez TORCH BURNER Primary Care Provider [phone] Reason for Visit * Reason Onset Date Comments Dizziness 10/31/2024 Encounter Details Date Type Department Care Team (Late st Contact Info) Description 10/31/2024 Telephone [facility] Cardiac Surgeons [address] [place] [address] Deb Woodall APRN [address] [place] [address] Dizziness Social History Tobacco Use [...] 9:00 AM EDT Office Visit [facility] Cardiac Surgeons [address] [place] [address] Logan Kenny MD [address] [place] [address] documented as of this encounter Visit Diagnoses Diagnosis ASHD (arteriosclerotic heart disease)- Primary Coronary atherosclerosis of unspecified type of vessel, [place] or graft documented in this encounter Care Teams Reconditioner Relationship Specialty Start Date End Date Reyna Perez APRN 1210 [facility] [address] [place] [address] PCP - General Nurse Practitioner 10/27/24 documented as of this encounter
--- OUTSIDE RECORDS SUMMARY | 2024-12-28 04:20 | XMS_ITS | Encounter Summary ---
Author Organization [place] [address] Care Team Providers Care Asset Management Lead Name Role Phone Reyna Perez DEMETRIUS Primary Care Provider [phone] Reason for Visit * Reason Onset Date Comments Medication Management 12/09/2024 Encounter Details Date Type Department Care Team (Late st Contact Info) Description 12/09/2024 Nurse Triage SEP Nurse Now [address] [place] [address] Clara Gutierrez RN Social History Tobacco Use Types Packs/Day Years Used Date Smoking Tobacco: Every Day Cigarettes 1 37.1 Started: 05/10/1989 Smokeless Tobacco: Never Alcohol Use Standard Drinks/Week Comments Not Currently 0 (1 standard drink = 0.6 oz pur e alcohol) [facility] Utilities Answer Date Recorded In [...] Date Recorded PHQ-2 Total Score 0 12/04/2024 [facility] [place] of Occupat ional Health - Occupational Stress [...] have money to get more. Never true [facility] IP Transportation Answer D ate Recorded [...] 01/23/2025 9:00 AM EDT Office Visit [facility] Cardiac Surgeons [address] [place] [address] Logan Kenny MD [address] [place] [address] [place] [address] documented as of this encounter Visit Diagnoses Not on filedocumented in this encounter Additional Health Concerns Infection Onset Date Last Indicated Resolved Time C-diff 12/06/2024 12/06/2024 documented as of this encounter Care Teams Asset Management Lead Relationship Specialty Start Date End Date Reyna Perez APRN [address] [place] [address] PCP - General Nurse Practitioner 10/27/24 documented as of this encounter
--- OUTSIDE RECORDS SUMMARY | 2024-12-28 04:20 | XMS_ITS | Encounter Summary ---
Author Organization [place] [address] Care Team Providers Care Building Services Engineer Name Role Phone ChrisReyna Jonathan ROMO Primary Care Provider [phone] Reason for Visit * Reason Onset Date Comments Hematuria 11/02/2024 Encounter Details Date Type Department Care Team (Late st Contact Info) Description 11/02/2024 Telephone SEP Nurse Now [facility] [place] [address] Cheyanne Rain RN Hematuria Social [...] Description 01/23/2025 9:00 AM EDT Office Visit [facility] Cardiac Surgeons [address] [place] [address] Logan Kenny MD [address] [place] [address] documented as of this encounter Visit Diagnoses Not on filedocumented in this encounter Care Teams Building Services Engineer Relationship Specialty Start Date End Date Reyna Perez APRN 1210 [facility] [address] [place] [address] PCP - General Nurse Practitioner 10/27/24 documented as of this encounter
--- OUTSIDE RECORDS SUMMARY | 2024-12-28 04:20 | XMS_ITS | Encounter Summary ---
Author Organization [place] [address] Care Team Providers Care Scrap Sorter Name Role Phone Reyna Perez DEMETRIUS Primary Care Provider [phone] Encounter Details Date Type Department Care Team (Late st Contact Info) Description 10/20/2024 Results Follow-Up SEP Urology NPTFTT [address] [place] [address] Patricia Ellison MD [address] [place] [address] NON-TOWNSHIP CLERK CYTOLOGY REQUEST Social History Tobacco Use Types Packs/Day Years Used Date Smoking Tobacco: Every Day Cigarettes 1 35.6 Started: 1989 Smokeless Tobacco: Never Alcohol Use Standard Drinks/Week Comments Not Currently 0 (1 standard drink = 0.6 oz pur e alcohol) [facility] Utilities Answer Date Recorded In [...] Date Recorded PHQ-2 Total Score 0 12/04/2024 [facility] [place] of Occupat ional Health - Occupational Stress [...] to get more. Never true [facility] IP Transportation Answer D ate Recorded In the past 12 months, has l ack of reliable transportation kept you from medical appointments, meetings, work or from getting things needed for daily living? No 12/04/2024 Sexually Active Control Partners Comments Yes Sex [...] in doing things 0 12/04/2024 12:32 PM [facility] Cailin Roberto RN Feeling down, depressed, or [...] 8:11 PM EDT Viri Segura RN * [place] Suicide Severity Rating Scale (Q shift for [...] Visit [facility] Cardiac Surgeons [address] [place] [address] Logan Kenny MD [address] [place] [address] documented as of this encounter Visit Diagnoses Not on filedocumented in this encounter Additional Health Concerns Infection Onset Date Last Indicated Resolved Time R/O C-Diff 12/06/2024 12/06/2024 12/06/2024 1:17 PM EDT C-diff 12/06/2024 12/06/2024 documented as of this encounter Care Teams Scrap Sorter Relationship Specialty Start Date End Date Reyna Perez APRN 1210 [facility] [address] [place] [address] PCP - General Nurse Practitioner 10/27/24 documented as of this encounter
--- OUTSIDE RECORDS SUMMARY | 2024-12-28 04:20 | XMS_ITS | Encounter Summary ---
Author Organization [place] [address] Care Team Providers Care Locker Room Clerk Name Role Phone Reyna Perez DEMETRIUS Primary Care Provider [phone] Reason for Visit * Reason Onset Date Comments Medication Question 12/10/2024 Encounter Details Date Type Department Care Team (Late st Contact Info) Description 12/10/2024 Nurse Triage SEP Nurse Now [address] [place] [address] Kiesha Gomez, LAY Social History Tobacco Use Types Packs/Day Years Used Date Smoking Tobacco: Every Day Cigarettes 1 37.1 Started: 05/10/1989 Smokeless Tobacco: Never Alcohol Use Standard Drinks/Week Comments Not Currently 0 (1 standard drink = 0.6 oz pur e alcohol) [facility] Utilities Answer Date Recorded In the [...] Date Recorded PHQ-2 Total Score 0 12/04/2024 [facility] [place] of Occupat ional Health - Occupational Stress [...] have money to get more. Never true [facility] IP Transportation Answer D ate [...] discharge paperwork states to start losartan but lpn instructor verbally said to hold it for now. BP 149/89, P 94- patient took metoprolol this morning and BP is not improving. would like to know if patient should start losartan -Reported by: Spouse/Significant Other -Disposition per protocol: call md now -Follow [facility]/Con[facility] aircraft structure assembler Dr Purdy ok to restart medication per [...] Visit [facility] Cardiac Surgeons [place] [address] [place] [address] [address] [place] [address] Logan Kenny MD [address] [place] [address] [place] [address] documented as of this encounter Visit Diagnoses Not on filedocumented in this encounter Additional Health Concerns Infection Onset Date Last Indicated Resolved Time C-diff 12/06/2024 12/06/2024 documented as of this encounter Care Teams Locker Room Clerk Relationship Specialty Start Date End Date Reyna Perez APRN 1210 [facility] [address] [place] [address] PCP - General Nurse Practitioner 10/27/24 documented as of this encounter
--- OUTSIDE RECORDS SUMMARY | 2024-12-28 04:20 | XMS_ITS | Encounter Summary ---
Author Organization [place] [address] Care Team Providers Care Kindergarten Classroom Teacher Name Role Phone Reyna Perez DEMETRIUS Primary Care Provider [phone] Reason for Visit * Reason Onset Date Comments Respiratory Distress 11/07/2024 Encounter Details Date Type Department Care Team (Late st Contact Info) Description 11/07/2024 Nurse Triage [facility] Nurse Now [address] [place] [address] Renetta Jolly RN Social History [...] Jolly RN - 11/07/2024 2:17 AM EDT [facility] Nurse Triage -Chief Complaint: Difficulty breathing . shortness of breath w/ exertion is baseline . this episode has been going on a few hours . still urinating blood from bx . takes asa . on abx due to possible UTI -Reported by: Spouse -Vitals: 97%, 127/77, 74 - no fever -Disposition per protocol: ED -Follow up/Concerns: Care advice provided. SC to Fitting Room Attendant: AMEENA Black Per Fitting Room Attendant: Thumbs up Patient advised: Yes Reason for Disposition Major surgery in the past month Protocols used: Breathing [id number] documented in this encounter Plan of Treatment Upcoming Encounters Date Type Department Care Team (Late st Contact Info) Description 01/23/2025 9:00 AM EDT Office Visit [facility] Cardiac Surgeons [address] [place] [address] Logan Kenny MD [address] [place] [address] documented as of this encounter Visit Diagnoses Not on filedocumented in this encounter Care Teams Kindergarten Classroom Teacher Relationship Specialty Start Date End Date Reyna Perez APRN 1210 [facility] [address] [place] [address] PCP - General Nurse Practitioner 10/27/24 documented as of this encounter
--- OUTSIDE RECORDS SUMMARY | 2024-12-28 04:20 | XMS_ITS | Encounter Summary ---
Author Organization [place] [address] Care Team Providers Care Junk Dealer Name Role Phone Reyna Perez DEMETRIUS Primary Care Provider [phone] Reason for Visit * Reason Onset Date Comments Surgery Scheduling 11/07/2024 Encounter Details Date Type Department Care Team (Late st Contact Info) Description 11/07/2024 Telephone SEP Nurse Now [facility] [place] [address] Cheyanne Rain RN Surgery Scheduling [...] 11/07/2024 3:23 AM EDTommy Lawton RN * [place] Suicide Severity Rating Scale (Q shift for [...] Description 01/23/2025 9:00 AM EDT Office Visit [facility] Cardiac Surgeons [address] [place] [address] Logan Kenny MD [address] [place] [address] documented as of this encounter Visit Diagnoses Not on filedocumented in this encounter Care Teams Junk Dealer Relationship Specialty Start Date End Date Reyna Perez APRN 1210 [facility] [address] [place] [address] PCP - General Nurse Practitioner 10/27/24 documented as of this encounter
--- OUTSIDE RECORDS SUMMARY | 2024-12-28 04:20 | XMS_ITS | Encounter Summary ---
Author Organization [place] [address] Care Team Providers Care Packaging Machine Supplies Distributor Name Role Phone Reyna Perez DEMETRIUS Primary Care Provider [phone] Reason for Visit * Reason Onset Date Comments Information Only 12/12/2024 Encounter Details Date Type Department Care Team (Late st Contact Info) Description 12/12/2024 Telephone SEP Nurse Now [facility] [place] [address] Abner Bar, LAY Information Only Social History Tobacco Use Types Packs/Day Years Used Date Smoking Tobacco: Every Day Cigarettes 1 37.1 Started: 05/10/1989 Smokeless Tobacco: Never Alcohol Use Standard Drinks/Week Comments Not Currently 0 (1 standard drink = 0.6 oz pur e alcohol) [facility] Utilities Answer Date Recorded In [...] Date Recorded PHQ-2 Total Score 0 12/04/2024 [facility] [place] of Occupat ional Health - Occupational Stress [...] have money to get more. Never true [facility] IP Transportation Answer D ate Recorded [...] blood work post hospital records via fax [phone]. documented in this encounter Plan of Treatment Upcoming Encounters Date Type Department Care Team (Late st Contact Info) Description 01/23/2025 9:00 AM EDT Office Visit [facility] Cardiac Surgeons [place] [address] [place] [address] [address] [place] [address] Logan Kenny MD [address] [place] [address] [place] [address] documented as of this encounter Visit Diagnoses Not on filedocumented in this encounter Additional Health Concerns Infection Onset Date Last Indicated Resolved Time C-diff 12/06/2024 12/06/2024 documented as of this encounter Care Teams Packaging Machine Supplies Distributor Relationship Specialty Start Date End Date Reyna Perez APRN [address] [place] [address] PCP - General Nurse Practitioner 10/27/24 documented as of this encounter
--- OUTSIDE RECORDS SUMMARY | 2024-12-28 04:20 | XMS_ITS | Encounter Summary ---
Author Organization [place] [address] Care Team Providers Care Tests Superintendent Name Role Phone Reyna Perez DEMETRIUS Primary Care Provider [phone] Encounter Details Date Type Department Care Team (Late st Contact Info) Description 10/19/2024 Results Follow-Up [facility] Cardiac Surgeons [place] [address] [facility] [address] [place] [address] ABDOMEN PELVIS WO ORAL WITH IV CONTRAST Social History Tobacco Use Types Packs/Day Years Used Date Smoking Tobacco: Every Day Cigarettes 1 35.6 Started: 1989 Smokeless Tobacco: Never Alcohol Use Standard Drinks/Week Comments Not Currently 0 (1 standard drink = 0.6 oz pur e alcohol) [facility] Utilities Answer Date Recorded In the [...] Date Recorded PHQ-2 Total Score 0 12/04/2024 [facility] [place] of Occupat ional Health - Occupational Stress [...] money to get more. Never true [facility] IP Transportation Answer D ate Recorded [...] 8:11 PM EDT Viri Segura RN * [place] Suicide Severity Rating Scale (Q shift for [...] Description 01/23/2025 9:00 AM EDT Office Visit [facility] Cardiac Surgeons [address] [place] [address] Logan Kenny MD [address] [place] [address] documented as of this encounter Visit Diagnoses Not on filedocumented in this encounter Additional Health Concerns Infection Onset Date Last Indicated Resolved Time R/O C-Diff 12/06/2024 12/06/2024 12/06/2024 1:17 PM EDT C-diff 12/06/2024 12/06/2024 documented as of this encounter Care Teams Tests Superintendent Relationship Specialty Start Date End Date Reyna Perez APRN 1210 [facility] [address] [facility] [address] PCP - General Nurse Practitioner 10/27/24 documented as of this encounter
--- OUTSIDE RECORDS SUMMARY | 2024-12-28 04:20 | XMS_ITS | Encounter Summary ---
Author Organization [place] [address] Care Team Providers Care Garden Worker Name Role Phone Reyna Perez DEMETRIUS Primary Care Provider [phone] Reason for Visit * Reason Onset Date Comments Hematuria 11/20/2024 Encounter Details Date Type Department Care Team (Late st Contact Info) Description 11/20/2024 Nurse Triage [facility] Nurse Now [address] [place] [address] Gala Loya RN Social History [...] and would like to discuss with provider instructor correspondence school [place] sent * Telephone Encounter - Gala [...] Description 01/23/2025 9:00 AM EDT Office Visit [facility] Cardiac Surgeons [address] [place] [address] Logan Kenny MD [address] [place] [address] [place] [address] documented as of this encounter Visit Diagnoses Not on filedocumented in this encounter Care Teams Garden Worker Relationship Specialty Start Date End Date Reyna Perez APRN [address] [facility] [address] [place] [phone] PCP - General Nurse Practitioner 10/27/24 documented as of this encounter
--- OUTSIDE RECORDS SUMMARY | 2024-12-28 04:20 | XMS_ITS | Encounter Summary ---
Author Organization [place] [address] Care Team Providers Care Production Maintenance Technician Name Role Phone Reyna Perez DEMETRIUS Primary Care Provider [phone] Reason for Visit * Reason Onset Date Comments Post-op Call 10/28/2024 Encounter Details Date Type Department Care Team (Late st Contact Info) Description 10/28/2024 Nurse Triage [facility] Nurse Now [address] [place] [address] Tamar Alan, LAY Social History [...] RN - 10/28/2024 10:05 AM EDT Per hot wound spring production supervisor, hold blood thinner until Wednesday and call [...] PCP now -Follow up/Concerns: message sent to hot wound spring production supervisor provider Reason for Disposition [1] Caller has URGENT question AND [2] triager unable to answer question Protocols used: Post-Op Symptoms and Rtuiynsko-Q-IL documented in this encounter Plan of Treatment Upcoming Encounters Date Type Department Care Team (Late st Contact Info) Description 01/23/2025 9:00 AM EDT Office Visit [facility] Cardiac Surgeons [address] [place] [address] Logan Kenny MD [address] [place] [address] [place] [address] documented as of this encounter Visit Diagnoses Not on filedocumented in this encounter Care Teams Production Maintenance Technician Relationship Specialty Start Date End Date Reyna Perez APRN [address] [facility] [address] [place] [address] PCP - General Nurse Practitioner 10/27/24 documented as of this encounter
--- OUTSIDE RECORDS SUMMARY | 2024-12-28 04:20 | XMS_ITS | Encounter Summary ---
Author Organization [facility] [place] [address] Care Team Providers Care Asphalt Still Operator Name Role Phone Reyna Perez DEMETRIUS Primary Care Provider [phone] Encounter Details Date Type Department Care Team [...] 3:23 AM EDT Tommy Lugo RN * [place] Suicide Severity Rating Scale (Q shift for [...] Description 01/23/2025 9:00 AM EDT Office Visit [facility] Cardiac Surgeons [address] [place] [address] Logan Kenny MD [address] [place] [address] documented as of this encounter Visit Diagnoses Not on filedocumented in this encounter Care Teams Asphalt Still Operator Relationship Specialty Start Date End Date Reyna Perez APRN [address] [facility] [address] [place] [address] PCP - General Nurse Practitioner 10/27/24 documented as of this encounter
--- OUTSIDE RECORDS SUMMARY | 2024-12-28 04:20 | XMS_ITS | Encounter Summary ---
Author Organization [place] [address] Care Team Providers Care Psychiatric Aide Name Role Phone Reyna Perez DEMETRIUS Primary Care Provider [phone] Reason for Visit * Reason Onset Date Comments Results 11/01/2024 Encounter Details Date Type Department Care Team (Late st Contact Info) Description 11/01/2024 Telephone SEP Nurse Now [facility] [place] [address] Fito Weeks RN Results Social [...] results. * Telephone Encounter - Fito Weeks, LAY - 11/01/2024 2:02 PM EDT Pt's reaching [...] Office Visit [facility] Cardiac Surgeons [address] [place] [address] Logan Kenny MD [address] [place] [address] [place] [address] documented as of this encounter Visit Diagnoses Not on filedocumented in this encounter Care Teams Psychiatric Aide Relationship Specialty Start Date End Date Reyna Perez APRN [address] [facility] [address] [place] [address] PCP - General Nurse Practitioner 10/27/24 documented as of this encounter
--- OUTSIDE RECORDS SUMMARY | 2024-12-28 04:20 | XMS_ITS | Encounter Summary ---
Author Organization [place] [address] Care Team Providers Care City Carrier Name Role Phone Reyna Perez DEMETRIUS Primary Care Provider [phone] Encounter Details Date Type Department Care Team (Late st Contact Info) Description 10/12/2024 Results Follow-Up [facility] Cardiac Surgeons [place] [address] [facility] [address] [place] [address] CHEST WO CONTRAST Social History Tobacco Use Types Packs/Day Years Used Date Smoking Tobacco: Never Assessed [facility] Utilities Answer Date Recorded In the past 12 months has th [employer] electric, gas, oil, or water company threatened to shut off services in your home? No 12/04/2024 Overall Financial Resource Strain (CARDIA) Answe r Date Recorded How hard is it for you to pa y for the very basics like food, housing, medical care, and heating? Somewhat hard 12/04/2024 PHQ-2 Answer Date Recorded PHQ-2 Total Score 0 12/04/2024 [facility] Occupat ional Health - Occupational Stress [...] have money to get more. Never true [facility] IP Transportation Answer D [...] Assessment Author 0 12/04/2024 12:32 PM EDT Pardeep, St ephanie D, RN * Suicide Severity Rating Answer Date of Assessment Author No Risk 12/01/2024 8:11 PM EDT Viri Segura RN * [place] Suicide Severity Rating Scale (Q shift for [...] Description 01/23/2025 9:00 AM EDT Office Visit [facility] Cardiac Surgeons [address] [place] [address] Logan Kenny MD [address] [place] [id number] documented as of this encounter Visit Diagnoses Not on filedocumented in this encounter Additional Health Concerns Infection Onset Date Last Indicated Resolved Time R/O C-Diff 12/06/2024 12/06/2024 12/06/2024 1:17 PM EDT C-diff 12/06/2024 12/06/2024 documented as of this encounter Care Teams City Carrier Relationship Specialty Start Date End Date Reyna Perez APRN [address] [facility] [address] [facility] [address] PCP - General Nurse Practitioner 10/27/24 documented as of this encounter
--- OUTSIDE RECORDS SUMMARY | 2024-12-28 04:20 | XMS_ITS | Encounter Summary ---
Author Organization [place] [address] Care Team Providers Care Manager Environmental Health Name Role Phone Reyna Perez DEMETRIUS Primary Care Provider [phone] Reason for Referral * (Routine) - Pending Review Specialty Diagnoses / Procedures Referred By Juan R acosta Referred To Contact Diagnoses Ureteral mass Procedures AMB URO SURGERY COMM ORDER Patricia Ellison MD [address] [place] [address] Phone: tel: fax: Referral ID Status Reason Start Date Expiration Date V isits Requested Visits Authorized [id number] Pending Review 11/05/2024 11/05/2025 1 1 Reason for Visit * Reason Onset Date Comments Information Only 11/05/2024 Encounter Details Date Type Department Care Team (Late st Contact Info) Description 11/05/2024 Results Follow-Up [facility] [address] [place] [phone] Patricia Ellison MD [address] [place] [phone] NON-STUMP SHOOTER CYTOLOGY REQUEST, PATHOLOGY TISSUE REQUEST Social History [...] [facility] Cardiac Surgeons [address] [place] [address] Logan Kenny MD [address] [place] [address] Scheduled Orders Name Type Priority Associated [...] 11/05/2024 documented in this encounter Care Teams Manager Environmental Health Relationship Specialty Start Date End Date Reyna Perez APRN [address] [facility] [address] [place] [phone] PCP - General Nurse Practitioner 10/27/24 documented as of this encounter
--- OUTSIDE RECORDS SUMMARY | 2024-12-28 04:21 | XMS_ITS | Clinical Summary ---
Author Organization Healthcare Address [address] [place] [address] Care Team Providers Care Cigarette Carton Sealer Name Role Phone ChrisReyna Jonathan ROMO Primary Care Provider [phone] Social History Tobacco Use Types Packs/Day Years [...] 07/27/2019 Sigmoidoscopy 07/27/2019 [facility]-Colorectal Cancer Screening 07/27/2019 [id number] Vaccine (1 - 20 24-25 season) 2024 [...] patient's age [place] this [place] [address] [facility] Care Teams Cigarette Carton Sealer Relationship Specialty Start Date End Date Reyna Perez APRN [address] [place] [address] PCP - General 09/15/22
--- OUTSIDE RECORDS SUMMARY | 2024-12-28 04:21 | XMS_ITS | Clinical Summary ---
Author Organization [facility] Address [address] [place], [place] [address] Phone Care Team Providers Care Casting Tester Name Role Phone Reyna Perez APRN Primary Care Provider [phone] Allergies No known active allergies Medications aspirin [...] to not take the medication, Reported on 12/22/2024 acetaminophen 325 mg Oral Tab Take 2 Tablets by mouth every 4 hours as needed for Fever. 5 Active tolterodine (DETROL LA) 4 mg Oral Capsule, Sust. Release 24 hr Take 1 Capsule by mouth daily. 30 Capsule 12/08/2024 11:27 AM EDT 5 Active hydrOXYzine (VISTARIL) 25 mg Oral Capsule Take 1 Capsule by mouth every 8 hours as needed for Anxiety. 30 Capsule 12/08/2024 11:27 AM EDT 5 Active sulfamethoxazol e-trimethoprim (BACTRIM DS) 800-160 mg Oral Tablet Take 1 Tablet by mouth every 12 hours for 10 days. 20 Tablet 5 12/02/19 25 Additional Information Patient not taking.Reason: Advised by Physician (christian SIDDIQI), Reported on 12/01/2024 traMADoL (ULTRAM) 50 mg Oral Tablet Take 1 Tablet by mouth every 6 hours as needed for Pain for up to 10 days. 20 Tablet 12/08/2024 11:27 AM EDT 5 12/19/19 25 cefUROXime (CEFTIN) 500 mg Oral Tablet Take 1 Tablet by mouth every 12 hours for 5 doses. 5 Tablet 12/08/2024 11:27 AM EDT 5 12/12/19 25 vancomycin (VANCOCIN) 125 mg Oral Capsule Take 1 Capsule by mouth 4 times daily for 34 doses. 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 difficile diarrhea 12/12/2024 Telephone [facility] [address] [place] [address] Abner Bar, RN Information Only 12/11/2024 Results Follow-Up [facility] [place] [address] [place] [phone] Sadi Haney MD PATHOLOGY TISSUE REQUEST 12/10/2024 Nurse Triage [facility] Nurse Now [facility] [place] [address] Kiesha Gomez, LAY 12/09/2024 Nurse Triage [facility] Nurse Now [facility] [place] [address] Clara Gutierrez RN 12/08/2024 Telephone [facility] Urology NPTT [address] [place] [address] Dorinda Rodriguez PA-C Schedule Appointment 12/04/2024 Telephone [facility] [place] [address] [place] [phone] Sadi Haney MD Schedule Appointment 12/01/2024 11:21 AM EDT Anesthesia Event EDG [facility] [address] [place] [id number] Tommy Romero DO Collins, Angela, APRN 12/01/2024 10:35 AM EDT - 12/01/2024 4:50 PM EDT Surgery EDG [facility] [place] [address] Sadi Haney MD DAVINCI ROBOTIC NEPHROURETERECTOMY 12/01/2024 9:50 AM EDT Ancillary Procedure EDG SAME DAY SURGERY [facility] [place] [address] Sadi Haney MD 12/01/2024 8:38 AM EDT - 12/08/2024 11:29 AM EDT Hospital Encounter [facility] [address] [place] [address] Sadi Haney MD Preop testing (Primary Dx); Ureteral mass Discharge Disposition: Discharge/Readmit 12/01/2024 Travel 11/23/2024 12:38 PM EDT - 11/23/2024 11:59 PM EDT Hospital Encounter [facility]G PRE-ADMIT TESTING [address] [facility] [place] [address] Pre-op testing (Primary Dx); Ureteral mass Discharge Disposition: Home or Self Care 11/23/2024 Travel 11/21/2024 Refill [facility] Urology NPTFTT [address] [place] [address] Patricia Ellison MD Medication Refill 11/20/2024 Nurse Triage [facility] Nurse Now [address] [place] [phone] Gala Loya RN 11/07/2024 3:27 AM EDT - 11/07/2024 7:08 AM EDT Emergency [address] [place] [address] Garo Ndiaye MD Dyspnea, unspecified type (Primary Dx) Discharge Disposition: Home or Self Care 11/07/2024 Telephone [facility] Nurse Now [address] [place] [phone] Cheyanne Rain, nail tech Scheduling 11/07/2024 Travel 11/07/2024 Nurse Triage [facility] Nurse Now [address] [place] [phone] Renetta Jolly RN 11/05/2024 Results Follow-Up [facility] Urology NPTFTT [address] [place] [address] Patricia Ellison MD NON-WEED ERADICATOR CYTOLOGY REQUEST, PATHOLOGY TISSUE REQUEST 11/02/2024 Telephone [facility] Nurse Now [address] [place] [phone] Cheyanne Rain, RN Hematuria 11/01/2024 Telephone [facility] Nurse Now [address] [place] [phone] Fito Weeks, LAY Results 10/31/2024 Telephone [facility] Cardiac Surgeons [address] [place] [address] Deb Woodall, PUMP ASSEMBLER Dizziness 10/28/2024 Nurse Triage [facility] [place] [address] Tamar Alan RN 10/27/2024 1:38 PM EDT Anesthesia Event [facility] [address] [place] [address] Sherita Moya MD Record, Jhoana M, PUMP ASSEMBLER 10/27/2024 1:00 PM EDT - 10/27/2024 1:55 PM EDT Surgery [facility] [address] [place] [address] Patricia Ellison MD CYSTOSCOPY URETEROSCOPY STENT PLACEMENT OR EXCHANGE 10/27/2024 11:03 AM EDT - 10/27/2024 4:21 PM EDT Hospital Encounter [facility]TT SAME DAY SURGERY [address] [place] [address] Patricia Ellison MD Ureteral mass Discharge Disposition: Home or Self Care 10/27/2024 Nurse Triage [facility] [address] [place] [phone] Kristine Ventura RN 10/27/2024 Travel 10/25/2024 1:42 PM EDT - 10/25/2024 11:59 PM EDT Hospital Encounter EDG PRE-ADMIT TESTING [facility] [place] [address] Discharge Disposition: Home or Self Care 10/25/2024 Travel 10/24/2024 9:00 AM EDT Telemedicine [facility] Cardiac Surgeons [address] [place] [address] Logan Kenny MD ASHD (arteriosclerotic heart disease) (Primary Dx); Ureteral mass 10/23/2024 Telephone [facility] [address] [place] [phone] Fito Weeks, emergency management system director Management 10/20/2024 6:50 AM EDT - 10/20/2024 11:59 PM EDT Hospital Encounter [facility] [address] [place], [place] [phone] Logan Kenny MD SOB (shortness of breath) Discharge Disposition: Home or Self Care 10/20/2024 Telephone [facility] Cardiac Surgeons [address] [place] [address] Logan Kenny MD Follow-up 10/20/2024 Results Follow-Up [facility] NPT[facility] [address] [place] [address] Patricia Ellison MD NON-WEED ERADICATOR CYTOLOGY REQUEST 10/19/2024 3:00 PM EDT Office Visit [facility] NPTFTT [address] [place] [address] Patricia Ellison MD Ureteral mass (Primary Dx) 10/19/2024 10:03 AM EDT - 10/19/2024 11:59 PM EDT Hospital Encounter [facility] [address] [place] [address] Logan Kenny MD Hydronephrosis, unspecified hydronephrosis type Discharge Disposition: Home or Self Care 10/19/2024 7:44 AM EDT - 10/19/2024 10:02 AM EDT Hospital Encounter [facility] [address] [place] [address] Logan Kenny MD Bruit Discharge Disposition: Home or Self Care 10/19/2024 7:44 AM EDT - 10/19/2024 10:02 AM EDT Hospital Encounter [facility] [address] [place] [address] Logan Kenny MD Leg swelling Discharge Disposition: Home or Self Care 10/19/2024 Results Follow-Up [facility] Cardiac Surgeons [address] [place] [phone] ABDOMEN PELVIS WO ORAL WITH IV CONTRAST 10/19/2024 Orders Only [facility] Cardiac Surgeons [address] [place] [phone] Christian Nicholas MD Abnormal CT scan (Primary Dx) 10/19/2024 Refill [facility] Infectious Disease EDG [address] [facility] [address] [place] [address] Chris Janet DEMETRIUS Bradshaw Medication Refill 10/12/2024 9:27 AM EDT - 10/12/2024 11:59 PM EDT Hospital Encounter [facility] [address] [place] [phone] Logan Kenny MD Coronary artery disease involving circle coronary artery of circle heart with angina pectoris Discharge Disposition: Home or Self Care 10/12/2024 Orders Only [facility] Cardiac Surgeons [address] [place] [address] Logan Kenny MD Hydronephrosis, unspecified hydronephrosis type (Primary Dx) 10/12/2024 Telephone [facility] Cardiac Surgeons [address] [place] [address] Raine Guerrero MA Patient Question 10/12/2024 Results Follow-Up [facility] Cardiac Surgeons [address] [place] [phone] CHEST WO CONTRAST 10/10/2024 2:00 PM EDT Office Visit [facility] Cardiac Surgeons [address] [place] [address] Logan Kenny MD ASHD (arteriosclerotic heart disease) (Primary Dx) 10/10/2024 Orders Only [facility] Cardiac Surgeons [address] [place] [address] Logan Kenny MD Bruit (Primary Dx); Leg swelling; SOB (shortness of breath); 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 No 12/04/2024 Overall Financial Resource Strain (CARDIA) Answe r Date Recorded How hard is it for you to pa y for the very basics like food, housing, medical care, and heating? Somewhat hard 12/04/2024 PHQ-2 Answer Date Recorded PHQ-2 Total Score 0 12/04/2024 [facility] of Occupat ional Health - Occupational Stress [...] have money to get more. Never true [facility]RSN [facility] IP Transportation Answer D ate Recorded In [...] F) 12/22/2024 1:55 PM EDT Respiratory Rate 18 12/08/2024 7:19 AM EDT Oxygen Saturation 97% 12/22/2024 1:55 PM EDT Inhaled Oxygen Concentration - - Weight 104.6 kg (230 lb 9.6 oz) 12/22/2024 1:55 PM EDT Height 172.7 cm (5' 8 ) 12/01/2024 8:06 PM EDT Body Mass Index 35.06 12/01/2024 8:06 PM EDT Plan of Treatment Upcoming Encounters Date Type Department Care Team (Late st Contact Info) Description 01/23/2025 9:00 AM EDT Office Visit [facility] Cardiac Surgeons [place] [address] [place] [address] [address] [place] [address] Logan Kenny MD [address] [place] [address] [place] [address] Health Maintenance Due Date Last Done Comments [...] this topic Medical Devices Implanted Type Area Wedding Makeup Artist Device Identifier Shelf Expiration Date Model / Serial / Lot Cardiac Stent Explanted Type Area Wedding Makeup Artist Device Identifier Shelf Expiration Date Model / Serial / Lot Stent Uret [id number] Contr Dbl Pig Tapr Lpro Percuflx Cath - [id number] Implanted:Qty : 1 on 10/27/2024 by Patricia Ellison MD at [facility] Stent Left: Ureter [employer] [employer]:MICROVASIVE: UROLOGY [id number] 03/22/2027 [id number] 30 / / [id number] Procedures Procedure Name Priority Date/Time Associated Diagnosis Comments [facility] URINALYSIS POC Routine 12/22/2024 2:00 PM EDT Postoperative visit 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) BP 118/53 (BP Location: Right arm) Pulse 103 Temp 98 F (36.7 C)(Oral) Resp 18 Ht 5' 8 (1.727 m) Wt 243 lb (110.2 kg) MjO830% BMI 36.95 kg/m I/O 24 hours: Intake/Output Summary (Last 24 hours) at 12/02/2024 1156 Last data filed at 12/02/2024 1154 Gross per 24 hour Intake 7111.22 ml Output 1360 ml Net 5751.22 ml Diagnostic tests The most recent cardiovascular imaging studies available in [facility] EMR werereviewed at time of consultation [...] no acute ischemia appreciated -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 Lizzie Hinkle, PUMP ASSEMBLER Heart and Vascular 12/02/2024 Disposition Perspective - [...] 4. Pneumonia. Per primary. Bear Samuel MD, FAC 12/02/2024 6:11 PM HEMOGLOBIN AND HEMATOCRIT Routine [...] Chen MD Primary Care Physician: Reyna Perez, PUMP ASSEMBLER No chief complaint on file. 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 Planper urology, follow path Coronary artery disease of circle artery of circle heart with stableangina pectoris - diffuse severe [...] OLYMPUS ESU, CYSTO FIRST, KCDR HAJ-HAMED ASSISTINGsk SC CYSTOURETHROSCOPY W/DEST &/RMVL MED BLADDER EMERY 12/01/2024 11:21 AM EDT Ureteral mass Special Needs LASSITER KNIFE, HANG WATER, OLYMPUS ESU, CYSTO FIRST, KCDR HAJ-HAMED ASSISTINGsk SC LAPAROSCOPY RADICAL NEPHRECTOMY 12/01/2024 11:21 AM EDT Ureteral mass Special Needs LASSITER KNIFE, HANG WATER, OLYMPUS ESU, CYSTO FIRST, KCDR HAJ-HAMED ASSISTINGsk SC LAPAROSCOPY NEPHRECTOMY W/TOTAL URETERECTOMY 12/01/2024 11:21 AM [...] AIRWAY PLACEMENT Routine 10/27/2024 2:06 PM EDT NON-WEED ERADICATOR CYTOLOGY REQUEST Routine 10/27/2024 2:03 PM EDT Ureteral mass SC CYSTOURETHROSCOPY WITH BIOPSY 10/27/2024 1:38 PM EDT Ureteral mass Special Needs sk CYSTOSCOPY URETEROSCOPY STENT PLACEMENT OR EXCHANGE 10/27/2024 1:38 PM EDT Ureteral mass Special Needs sk EC ECHOCARDIOGRAM COMPLETE W DOPPLER AND COLOR FLOW MAPPING Routine 10/20/2024 7:53 AM EDT SOB (shortness of breath) NON-WEED ERADICATOR CYTOLOGY REQUEST Routine 10/19/2024 3:31 PM EDT [...] 9:31 AM EDT Coronary artery disease involving circle coronary artery of circle heart with angina pectoris from Last 3 Months Results * (ABNORMAL) [facility] URINALYSIS POC (12/22/2024 2:00 PM EDT) Only the most recent of3 resultswithin the time period is included. UA Color POC Yellow Color 12/22/2024 2:02 PM EDT [facility] UROLOGY [facility] UA Appear POC Clear Clear 12/22/2024 2:02 PM EDT [facility] UA Gluc POC Negative Negative mg/dL 12/22/2024 2:02 PM EDT [facility] UA Bili POC Negative Negative 12/22/2024 2:02 PM EDT [facility] UA Ketones POC Negative Negative mg/dL 12/22/2024 2:02 PM EDT [facility] UA SG POC 1.020 1.001 - 1.035 no units 12/22/2024 2:02 PM EDT [facility] UA Blood POC Trace-Intact (A) Negative 12/22/2024 2:02 PM EDT [facility] UA pH POC 6.5 5.0 - 8.0 pH 12/22/2024 2:02 PM EDT [facility] UA Protein POC Negative Negative mg/dL 12/22/2024 2:02 PM EDT [facility] UA Urobilinogen POC 0.2 0.2, 1.0 12/22/2024 2:02 PM EDT [facility] UA Nitrite POC Negative Negative 12/22/2024 2:02 PM EDT [facility] UA Leuk Est POC Negative Negative 2:02 PM EDT [facility] Urine STRUCTURE OF URINARY TRACT PROPER / Unknown 12/22/2024 2:00 PM EDT 12/22/2024 2:02 PM EDT us Dorinda Rodriguez PA-C POINT OF CARE TEST ORDERAB LES Final Result [facility] UROLOGY [facility] [address] [place] [address] * SCANNED RHYTHM STRIPS (12/09/2024 4:31 AM [...] Gran% 1.1 % 12/08/2024 6:48 AM EDT [facility] Comment:Automated count of m etamyelocytes, myelocytes and promyelocytes. IG >1% represents a left shift and provides an early indication of an infection or inflammatory process. Lymph Percent 14.3 % 12/08/2024 6:48 AM EDT [facility] Coal Percent 11.0 % 12/08/2024 6:48 AM EDT [facility] Eos Percent 1.9 % 12/08/2024 6:48 AM EDT [facility] Baso Percent 0.3 % 12/08/2024 6:48 AM EDT [facility] Neut # 6.7(H) 1.6 - 6.1 x10(3)/mcL 12/08/2024 6:48 AM EDT [facility] Comment:Neutrophils equals s egs plus bands IMMGRAN# 0.1 0.0 - 0.1 x10(3)/mcL 12/08/2024 6:48 AM EDT [facility] Comment:Automated count of m etamyelocytes, myelocytes and promyelocytes. An absolute IG <0.1 is reported as 0.0. Lymph # 1.3 1.2 - 3.9 x10(3)/mcL 12/08/2024 6:48 AM EDT [facility] Coal # 1.0(H) 0.3 - 0.9 x10(3)/mcL 12/08/2024 6:48 AM EDT [facility] Eos# 0.2 0.0 - 0.5 x10(3)/mcL 12/08/2024 6:48 AM EDT [facility] Baso # 0.0 0.0 - 0.1 x10(3)/mcL 12/08/2024 6:48 AM EDT [facility] Blood VENOUS BLOOD / Unknown Venipuncture / Unknown 12/08/2024 6:02 AM EDT 12/08/2024 6:35 AM EDT us Juana Shoemaker MD HEMATOLOGY ORDERABLES Final R esult [facility] [address] [facility] , [address] [place], [place] [id number] * (ABNORMAL) BASIC METABOLIC PANEL (12/08/2024 6:02 AM EDT) Only the most recent of5 resultswithin the time period is included. Sodium 137 136 - 145 mmol/L 12/08/2024 7:09 AM EDT [facility] Potassium 3.7 3.5 - 5.0 mmol/L 12/08/2024 7:09 AM EDT [facility] Chloride 104 98 - 107 mmol/L 12/08/2024 7:09 AM EDT [facility] Total CO2 21(L) 22 - 29 mmol/L 12/08/2024 7:09 AM EDT [facility] Anion Gap 12 7 - 16 mmol/L 12/08/2024 7:09 AM EDT [facility] Calcium 9.3 8.6 - 10.4 mg/dL 12/08/2024 7:09 AM EDT [facility] Glucose Lvl 105(H) 70 - 99 mg/dL 12/08/2024 7:09 AM EDT [facility] BUN 11 6 - 20 mg/dL 12/08/2024 7:09 AM EDT [facility] Creatinine 0.96 0.67 - 1.30 mg/dL 12/08/2024 7:09 AM EDT [facility] eGFR (CKD-EPIcr 2020) 96 >=60 mL/min/1.7 3 m2 12/08/2024 7:09 AM EDT [facility] Comment:Estimated GFR was ca lculated using the CKD-EPIcr (2020) equation refit without race. The equation is recommended by the National Kidney Foundation - [place] [employer] Nephrology Task Force. Blood VENOUS BLOOD / Unknown Venipuncture / Unknown 12/08/2024 6:02 AM EDT 12/08/2024 6:34 AM EDT us Juana Shoemaker MD CHEMISTRY ORDERABLES Final Re sult [facility] [address] [facility] [address], [address] [place], [place] [id number] * ECG AND WAVEFORMS - TELEMETRY (12/07/2024 8:06 PM EDT) Only the most recent of14 resultswithin the time period is included. ECG INTERPRET NSR [facility] 12/07/2024 8:06 PM EDT Narrative [facility] - 12/07/2024 8:18 PM EDT ROUTINE (BS) SC 0.16 QRS 0.12 RR 0.65 QT 0.40 QTc 0.50 See Clinical Report link for waveform capture us Unknown Provider POINT OF CARE CARDIOLOGY Final Result [facility] [address] [place] [address] * FL CYSTOGRAM MINIMUM 3 VW (12/07/2024 [...] examination was performed by Rachna Eller, physician ambulance assistant, under the supervision of Dr. Singh. A total fluoroscopy time of 1.2 minutes was used. 119 fluoroscopic spot images were saved to PACS. FINDINGS: Via Bradford catheter, 175 mL of water-soluble contrast was instilled retrograde into the urinary bladder. Imaging was performed in multiple projections. Dental Surgeon radiographs show a surgical drain over the [...] The examination was performed by Rachna Eller,physician ambulance assistant, under the supervision of Dr. Singh. A total fluoroscopy timeof 1.2 minutes was used. 119 fluoroscopic spot images were saved to PACS. FINDINGS: Via Bradford catheter, 175 mL of water-soluble contrast wasinstilled retrograde into the urinary bladder. Imaging was performed in multiple projections. Dental Surgeon radiographs show a surgical drain over the [...] of3 resultswithin the time period is included. WBC 10.8(H) 3.7 - 10.3 x10(3)/mcL 12/07/2024 [...] al Result [facility] [address] [facility] [facility] , [place] [address] * (ABNORMAL) C DIFF INTERPRETATION (12/06/2024 9:57 AM EDT) C Diff Toxin DNA Positive(A) Negative 12/06/2024 1:18 PM EDT [facility] NAP1 Presumptive Neg Presumptive Neg 12/06/2024 1:18 PM EDT [facility] GDH Antigen Positive(A) Negative 12/06/2024 1:18 PM EDT [facility] C diff toxin A/B Positive(A) Negative 12/06/2024 1:18 PM EDT [facility] Stool RECTUM STRUCTURE / Unknown Collection / Unknown 12/06/2024 9:57 AM EDT 12/06/2024 10:05 AM EDT Narrative [facility] - 12/06/2024 1:18 PM EDT Toxin producing C diff target DNA sequences detected. Toxins A/B positive. CDI likely. Consider initiation of severity-based CDI therapy according to CDI management guidance. Brody LINDQUIST MICROBIOLOGY - GENERAL ORDERABLE S Final Result Performing Organization Address City/[facility]/ZIP Co de Phone Number [facility], [address] , [place] [address] * C DIFF GDH AG AND TOXIN A+B (12/06/2024 9:57 AM EDT) Stool RECTUM STRUCTURE / Unknown Collection / Unknown 12/06/2024 9:57 AM EDT 12/06/2024 10:05 AM EDT Brody LINDQUIST MICROBIOLOGY - GENERAL ORDERABLE S Final Result [facility], [address] , [place] [address] * C DIFF TOXIN DNA (12/06/2024 9:57 AM EDT) Stool RECTUM STRUCTURE / Unknown Collection / Unknown 12/06/2024 9:57 AM EDT 12/06/2024 10:05 AM EDT Brody LINDQUIST MICROBIOLOGY - GENERAL ORDERABLE S Final Result Performing Organization Address [facility] de Phone Number [facility] Operation Supply Drop [facility] [address] [facility] , [place] [address] * (ABNORMAL) HEMOGLOBIN AND HEMATOCRIT (12/05/2024 12:22 PM EDT) Only the most recent of7 resultswithin the time period is included. Hgb 9.4(L) 13.7 - 17.5 g/dL 12/05/2024 1:04 PM EDT [facility] Hct 27.8(L) 40.0 - 51.0 % 12/05/2024 1:04 PM EDT [facility] Blood VENOUS BLOOD / Unknown Venipuncture / Unknown 12/05/2024 12:22 PM EDT 12/05/2024 12:27 PM EDT Juana Shoemaker MD HEMATOLOGY ORDERABLES Final R esult Performing Organization Address [facility] Co de Phone Number [facility], [facility] [address] , [place] [address] * TRANSFUSE RED BLOOD CELLS [...] % 12/05/2024 12:26 PM EDT [facility] TIBC 224(L) 250 - 400 mcg/dL 12/05/2024 12:26 PM EDT [facility] Blood VENOUS BLOOD / Unknown Venipuncture / Unknown 12/04/2024 5:52 AM EDT 12/04/2024 6:01 AM EDT Juana Shoemaker MD CHEMISTRY ORDERABLES Final Re sult Performing Organization Address [facility] de Phone Number [facility] [employer] [address] , [place] [address] * (ABNORMAL) TROPONIN-T HIGH SENSITIVITY 6 HR (12/03/2024 3:40 AM EDT) uj-nUiuatagu-U 6HR 37(H) <22 ng/L 12/03/2024 4:43 AM EDT PREFERRED [email or web address] hs-cTnT 6Hr Delta from Baseline 11 <12 ng/L 12/03/2024 4:43 AM EDT [facility] [email or web address] Blood VENOUS BLOOD / Unknown Venipuncture / Unknown 12/03/2024 3:40 AM EDT 12/03/2024 4:11 AM EDT Narrative [facility]REFERRED [email or web address] - 12/03/2024 4:43 AM EDT Ingestion of josé miguel doses of biotin (>5 mg/day) taken within 8 hours of drawing blood sample can interfere with this immunoassay test. Rachna Wood APRN CHEMISTRY ORDERABLES Fin al Result Performing Organization Address [facility] de Phone Number [facility] [employer] , [place] [address] * (ABNORMAL) TROPONIN-T HIGH SENSITIVITY 2HR (12/02/2024 10:14 PM EDT) Only the most recent of2 resultswithin the time period is included. ed-zGigoenkt-E 2HR 33(H) <22 ng/L 12/02/2024 11:02 PM EDT [facility]REFERRED [email or web address] hs-cTnT 2Hr Delta from Baseline 7(H) <4 ng/L 12/02/2024 11:02 PM EDT [facility] [email or web address] Blood VENOUS BLOOD / Unknown Venipuncture / Unknown 12/02/2024 10:14 PM EDT 12/02/2024 10:33 PM EDT Narrative [facility]ED [email or web address] - 12/02/2024 11:02 PM EDT Ingestion of josé miguel doses of biotin (>5 mg/day) taken within 8 hours of drawing blood sample can interfere with this immunoassay test. us Rachna Wood PUMP ASSEMBLER CHEMISTRY ORDERABLES Fin al Result [facility] [address] , [place] [address] * CT ABDOMEN PELVIS W CONTRAST (12/02/2024 [...] of3 resultswithin the time period is included. xc-sBhrdfehn-Y 26(H) <22 ng/L 12/02/2024 8:05 PM EDT [facility] Blood VENOUS BLOOD / Unknown Venipuncture / Unknown 12/02/2024 7:34 PM EDT 12/02/2024 7:37 PM EDT Narrative [facility]REFERRED [email or web address] - 12/02/2024 8:05 PM EDT Ingestion of josé miguel doses of biotin (>5 mg/day) taken within 8 hours of drawing blood sample can interfere with this immunoassay test. us Rachna Wood PUMP ASSEMBLER CHEMISTRY ORDERABLES Fin al Result [facility] [address] , [place] [address] * EK EKG 12 LEAD (12/02/2024 7:13 PM EDT) Only the most recent of3 resultswithin the time period is included. Anatomical Region Laterality Modality Electrocardiogra phy 12/02/2024 7:21 PM EDT Impressions 12/03/2024 11:[address] 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 Test Date: 2024-12-02 Pat Name: ALEX PUGH Department: DEPID Room: 7308 Gender: Male Die Cutter: Benigno : 1975 Requested By: RACHNA Gutierrez Order Number: [id number] Reading MD: Edelmira Ramsey DO Measurements Intervals [place] Rate: 123 P: 131 SC: 167 QRS: 1 QRSD: 90 T: 72 QT: 319 QTc: 457 Interpretive Statements SINUS TACHYCARDIA NONSPECIFIC ST & T-WAVE ABNORMALITY ABNORMAL RHYTHM ECG Electronically Signed On 12-03-2024 11:25:42 EDT by Edelmira Ramsey DO Rachnamady Wood PUMP ASSEMBLER IMG ECG ORDERABLES Final Result * REPEAT LACTIC ACID (12/02/2024 6:17 PM EDT) Only the most recent of5 resultswithin the time period is included. [facility] Lactic Acid 1.6 0.5 - 1.9 mmol/L 12/02/2024 6:44 PM EDT [facility]REFERRED [email or web address] Blood VENOUS BLOOD / Unknown Venipuncture / Unknown 12/02/2024 6:17 PM EDT 12/02/2024 6:25 PM EDT Meng Chen MD CHEMISTRY ORDERABLES Final Resu lt Performing Organization Address [facility] Co de Phone Number [facility] [address] [place] [address] , [place] [address] * BLOOD CULTURE (NO STAIN) (12/02/2024 1:42 PM EDT) Only the most recent of2 resultswithin the time period is included. [facility] Culture Result No Growth at 120 hours. BLOOD CULTURE (NO STAIN) 12/07/2024 3:00 PM EDT [facility] Blood VENOUS BLOOD / Unknown Venipuncture / Unknown 12/02/2024 1:42 PM EDT 12/02/2024 1:53 PM EDT Meng Chen MD MICROBIOLOGY - GENERAL ORDERABL ES Final Result Performing Organization Address [facility] Co de Phone Number [facility] [address] , [place] [address] * (ABNORMAL) LACTIC ACID (12/02/2024 1:42 PM EDT) Only the most recent of2 resultswithin the time period is included. [facility] Lactic Acid 3.2(H) 0.5 - 1.9 mmol/L 12/02/2024 2:16 PM EDT [facility] Blood VENOUS BLOOD / Unknown Venipuncture / Unknown 12/02/2024 1:42 PM EDT 12/02/2024 1:52 PM EDT us Meng Chen MD CHEMISTRY ORDERABLES Final Resu lt [facility], [facility] [address] [facility] , [place] [address] * (ABNORMAL) URINALYSIS REFLEX (12/02/2024 10:53 AM EDT) Pathologist [facility] UA Color Red 12/02/2024 11:12 AM EDT [facility] UA Appear Cloudy(A) Clear 12/02/2024 11:12 AM EDT [facility] UA Glucose Negative Negative mg/dL 12/02/2024 11:12 AM EDT [facility] UA Ketones Negative Negative mg/dL 12/02/2024 [...] units 12/02/2024 11:12 AM EDT [facility] Comment:Reference range jc d for random specimens only. UA WBC 28(H) 0 - 4 /HPF 12/02/2024 11:12 AM EDT [facility] UA RBC >182(H) 0 - 3 /HPF 12/02/2024 11:12 AM EDT [facility] UA Squam Epi 1+ /LPF 12/02/2024 11:12 AM EDT [facility] UA Bacteria 1+(A) Negative /HPF 12/02/2024 11:12 AM EDT [facility] Urine URINARY BLADDER STRUCTURE / Unknown 12/02/2024 10:53 AM EDT 12/02/2024 10:59 AM EDT Mariah Kessler APRN URINE ORDERABLES Fin al Result Performing Organization Address [facility] de Phone Number [facility] LAB [facility], [facility] [address] [facility], [place] [address] * EXTRA SWENSON URINE CX (12/02/2024 10:53 AM EDT) Urine URINE SPECIMEN OBTAINED VIA INDWELLING URINARY CATHETER / Unknown 12/02/2024 10:53 AM EDT 12/02/2024 10:59 AM EDT Mariah Kessler APRN MICROBIOLOGY - GENER AL ORDERABLES Final Result Performing Organization Address [facility] Co de Phone Number [facility] [address] [place] [address] * URINE CULTURE (NO STAIN) (12/02/2024 10:53 AM EDT) Culture No growth at 30 hours. 12/04/2024 6:38 AM EDT [facility] LAB [facility], [facility] Urine URINARY BLADDER STRUCTURE / Unknown 12/02/2024 10:53 AM EDT 12/02/2024 11:12 AM EDT Mariah Kessler APRN MICROBIOLOGY - GENER AL ORDERABLES Final Result Performing Organization Address City/[facility]/ZIP Co de Phone Number PREFERRED [email or web address] [address] , [place] [address] * XR CHEST AP PORTABLE (12/02/2024 9:55 [...] contactthe office of the ordering clinician. us Meng Chen MD IMG DIAGNOSTIC IMAGING ORDERABL ES Final Result * (ABNORMAL) PROCALCITONIN (12/02/2024 5:05 AM EDT) Procalcitonin 0.62(H) <=0.49 ng/mL 12/02/2024 5:52 AM EDT [facility] Blood VENOUS BLOOD / Unknown Venipuncture / Unknown 12/02/2024 5:05 AM EDT 12/02/2024 5:11 AM EDT Narrative STEPH[facility] [employer] - 12/02/2024 5:52 AM EDT Procalcitonin <0.50 [...] progression to severe sepsis and/or septic shock. Mariah Kessler APRN CHEMISTRY ORDERABLES Final Result [facility] [address] , [address] [place], [place] [id number] * CREATININE BODY FLUID (12/02/2024 4:12 AM EDT) Creatinine BF 1.15 0.67 - 1.30 mg/dL 12/02/2024 5:03 AM EDT [facility] Body Fluid ABDOMEN / Unknown Collection / Unknown 12/02/2024 4:12 AM EDT 12/02/2024 4:29 AM EDT Meghan [facility] - 12/02/2024 5:03 AM EDT A reference interval for this test has not been established for body fluid specimens. The reference range listed reflects normal concentration of this analyte in blood. Sadi Haney MD BODY FLUIDS AND STOOLS OR DERABLES Final Result Performing Organization Address City/[facility]/ZIP Co de Phone Number [facility] [address] [facility], [place] [address] * (ABNORMAL) GLUCOSE METER POC (12/02/2024 2:58 AM EDT) Glucose Meter POC 148(H) 70 - 100 mg/dL 12/02/2024 3:00 AM EDT [facility] Sample Type Capillary 12/02/2024 3:00 AM EDT [facility] Patient Status Non-Critical Patient 12/02/2024 3:00 AM EDT [facility] Blood BLOOD SPECIMEN / Unknown 12/02/2024 2:58 AM EDT 12/02/2024 3:00 AM EDT Sadi Haney MD POINT OF CARE TEST ORDERA BLES Final Result Performing Organization Address [facility] de Phone Number [place] [phone] * PATHOLOGY TISSUE REQUEST (12/01/2024 3:36 PM EDT) Only the most recent of2 resultswithin the time period is included. 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 - Resection margins negative for carcinoma - Kidney and bladder cuff with chronic inflammation, negative for carcinoma. - Adrenal gland negative for carcinoma. - See synoptic report for details. 12/05/2024 4:20 PM EDT [facility] at 1620 EDT GROSS DESCRIPTION A. [...] 0.5 to 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 Sales Representative Publications sections are submitted as follows: A1-A3 = entire mass at UPJ to include adjacent uninvolved proximal ureter A4 = remaining proximal ureter A5-A6 = client care representative dilated calyces A7-A8 equal all distal ureter with perpendicular bladder margin A9 = vascular margins from kidney A10 = all areas suggestive of adrenal parenchyma A11 = 1 bisected lymph node candidate A12 = 1 trisected lymph node candidate A13-A14 = largest lymph node candidate, trisected RIK Stover PA (ASCP) 12/05/2024 4:20 PM EDT [facility] MICROSCOPIC DESCRIPTION The microscopic examination may have been rendered in whole, or in part, by analyzing high-resolution digital images (whole slide images) on the [employer] Digital Pathology platform validated at [facility]. 12/05/2024 4:20 PM EDT [facility] BEST TISSUE BLOCK FOR ANCILLARY STUDIES A3 12/05/2024 4:20 PM EDT [facility] SYNOPTIC REPORT CHECKLIST URETER, RENAL PELVIS: Resection [...] limited to this pathology report. pT Category: damascener pN Category: pN not assigned (no nodes submitted or found) ADDITIONAL FINDINGS Pathologic Findings in Ipsilateral Nonneoplastic Renal Tissue: None identified 12/05/2024 4:20 PM EDT [facility] EMBEDDED IMAGES 12/05/2024 4:20 PM EDT [facility] Tissue LEFT KIDNEY STRUCTURE / Unknown 12/01/2024 3:36 PM EDT 12/01/2024 4:31 PM EDT us Sadi Haney MD PATHOLOGY ORDERABLES Nadiya nichols Result [facility] [address] [place] [address] [address] * INTRAOP AIRWAY PLACEMENT (12/01/2024 11:33 AM EDT) Narrative [facility] - 12/01/2024 11:33 AM EDT [...] 1 Attempt 1 by: Travon Kerr Title: TOOL SHARPENER us Jorge Alberto Hoang MD [place] ANESTHESIA Edited Resul t - Final [facility] [address] [place] [id number] * ANE US GUIDANCE (12/01/2024 10:32 AM EDT) Narrative [facility] - 12/01/2024 10:32 AM EDT [...] block is attached/scanned to the epic chart. Jorge Alberto Hoang MD ANESTHESIA ORDERABLES Final Result Performing Organization Address [facility] Co de Phone Number [facility] [address] [place] [phone] * US ANES GUIDANCE FOR POC (12/01/2024 [...] Previous History OK 12/01/2024 9:30 AM EDT [facility] BLOOD [facility] Blood VENOUS BLOOD / Unknown Venipuncture / Unknown 12/01/2024 9:22 AM EDT 12/01/2024 9:26 AM EDT Sadi Haney MD BLOOD BANK ORDERABLES Fin al Result Performing Organization Address City/[facility]/ZIP Co de Phone Number [facility] BLOOD BANK [address] [place] [phone] * ABORH (12/01/2024 9:22 AM EDT) Only the most recent of2 resultswithin the time period is included. ABORH Int B POS 12/01/2024 9:5 7 AM EDT [facility] BLOOD BANK Blood VENOUS BLOOD / Unknown Venipuncture / Unknown 12/01/2024 9:22 AM EDT 12/01/2024 9:26 AM EDT Sadi Haney MD BLOOD BANK ORDERABLES Fin al Result Performing Organization Address [facility] [place] [address] * RED BLOOD CELLS REQUEST (11/23/2024 2:10 PM EDT) Only the most recent of2 resultswithin the time period is included. Product Code [id number] [facility] BLOOD BANK Unit Number [id number] [facility] BLOOD [facility] Crossmatch Interp Compatible [facility] Dispense Status TRANSFUSED [facility] BLOOD [facility] Blood Expiration Date [id number] [facility] BLOOD [facility] ISBT 128 Type 7300 [facility] BLOOD [facility] Blood Unit Volume 300 ml [facility] BLOOD [facility] BA CODING SYSTEM [id number] [facility] Blood Type (Unit) B POS [facility] BLOOD [facility] Blood 11/23/2024 2:10 PM EDT 11/23/2024 2:17 PM EDT Peace Rea PUMP ASSEMBLER BLOOD PRODUCT ORDERS Nadiya l Result Performing Organization Address [facility] [place] [address] * SURGERY DATE (11/23/2024 2:10 PM EDT) Surgery Date (1) Complete 11/23/2024 2:31 PM EDT [facility] BLOOD [facility] Blood VENOUS BLOOD / Unknown Venipuncture / Unknown 11/23/2024 2:10 PM EDT 11/23/2024 2:17 PM EDT us Susan Grossman APRN BLOOD BANK ORDERABLES Fi nal Result Performing Organization Address City/[facility]/ZIP Co de Phone Number [facility] BLOOD [facility] [address] [place] [address] * ANTIBODY SCREEN IGG (11/23/2024 2:10 PM EDT) ABSC IgG Int Negative 11/23/2024 3:13 PM EDT [facility] BLOOD [facility] Blood VENOUS BLOOD / Unknown Venipuncture / Unknown 11/23/2024 2:10 PM EDT 11/23/2024 2:17 PM EDT us Susan Grossman PUMP ASSEMBLER BLOOD BANK ORDERABLES Fi nal Result Performing Organization Address City/[facility]/ZIP Co de Phone Number [facility] BLOOD [address] [address] * SCANNED EKG (11/07/2024 10:27 AM EDT) [...] <=500 ng/mL FEU 11/07/2024 4:26 AM EDT [facility] Comment:This is an automated latex [...] AM EDT 11/07/2024 3:54 AM EDT Narrative [facility] - 11/07/2024 4:26 AM EDT For patients between the ages of 50 - 75, an age-adjusted D-Dimer cut-off in combination with non-high clinical probability may be considered for the exclusion of venous thromboembolism (calculation = age x 10). Denita, AJ, et al. Ashley Non Clinical Advisor Med. 2017;166(5):361-363 BENIGNO Contreras, et al. Ashley Non Clinical Advisor Med. 2015;(163):701-711. Matt Johnson et al. BERTIN. 2014;(11):1960-9761. Garo Ndiaye MD HEMATOLOGY ORDERABLES Final Re sult [facility] [address] [place] [address] * NT PROBNP (11/07/2024 3:52 AM EDT) Pathologist [facility] NT Pro-BNP 53 <=138 pg/mL 11/07/2024 4:[address] [facility] Blood VENOUS BLOOD / Unknown Venipuncture / Unknown 11/07/2024 3:52 AM EDT 11/07/2024 3:[address] [facility] - 11/07/2024 4:13 AM EDT [...] Ndiaye MD CHEMISTRY ORDERABLES Final Res ult [facility] [address] [place] [address] * (ABNORMAL) COMPREHENSIVE METABOLIC PANEL (11/07/2024 3:52 AM EDT) [facility] Sodium 136 136 - 145 mmol/L 11/07/2024 4:13 AM EDT [facility] Potassium 4.5 3.5 - 5.0 mmol/L 11/07/2024 4:13 AM EDT [facility] Chloride 104 98 - 107 mmol/L 11/07/2024 4:13 AM EDT [facility] Total CO2 21(L) 22 - 29 mmol/L 11/07/2024 4:13 AM EDT [facility] Anion Gap 11 7 - 16 mmol/L 11/07/2024 4:13 AM EDT [facility] Calcium 9.5 8.6 - 10.4 mg/dL 11/07/2024 4:13 AM EDT [facility] Glucose Lvl 104(H) 70 - 99 mg/dL 11/07/2024 4:[address] [facility] BUN 18 6 - 20 mg/dL 11/07/2024 4:13 AM EDT [facility] Creatinine 1.24 0.67 - 1.30 mg/dL 11/07/2024 4:[address] [facility] Albumin 4.4 3.5 - 5.2 gm/dL 11/07/2024 4:13 AM EDT [facility] Total Protein 7.1 6.4 - 8.3 gm/dL 11/07/2024 4:13 AM EDT [facility] Bili Total 0.3 0.2 - 1.4 mg/dL 11/07/2024 4:13 AM EDT [facility] ALT 20 <=41 U/L 11/07/2024 4:13 AM EDT [facility] AST 20 <=40 U/L 11/07/2024 4:13 AM EDT [facility] Alk Phos 127 40 - 129 U/L 11/07/2024 4:[address] [facility] eGFR (CKD-EPIcr 2020) 71 >=60 mL/min/1.7 3 m2 11/07/2024 4:13 AM EDT [facility] Comment:Estimated GFR was ca lculated using the CKD-EPIcr (2020) equation refit without race. The equation is recommended by the National Kidney Foundation - [place] [employer] Neph[employer] Task Force. Blood VENOUS BLOOD / Unknown Venipuncture / Unknown 11/07/2024 3:52 AM EDT 11/07/2024 3:55 AM EDT us Garo Ndiaye MD CHEMISTRY ORDERABLES Final Res ult [facility] [address] [facility] [place] [address] * INTRAOP AIRWAY PLACEMENT (10/27/2024 2:06 PM EDT) Narrative [facility] - 10/27/2024 2:06 PM EDT Phuong Clark CRNA 10/27/2024 2:07 PM Intraop Airway Placement: Date/Time: 10/27/2024 2:06 PM Induction type: IV Mask size: Standard adult Pre-Oxygenation: BMI guided pre-O2 Mask ventilation: Not attempted Airway type: LMA Device size: 5 Secured by: Tape Placement verified: End tidal CO2 and Symmetric chest wall motion Condition: Atraumatic and Unchanged Insertion attempts: 1 Title: TOOL SHARPENER us Sherita Moya MD SC ANESTHESIA Final R esult [facility] [address] [place] [address] * NON-WEED ERADICATOR CYTOLOGY REQUEST (10/27/2024 2:03 PM EDT) Only the most recent of2 resultswithin the time period is included. CASE REPORT Non-gynecologic Cytology Case: [id number] Authorizing Provider: Patricia Ellison MD Collected: 10/27/2024 1403 Ordering Location: [facility] Received: 10/27/2024 1415 Pathologist: Jerome Hickman MD Specimen: Urethra, urine cytology 10/30/2024 1:34 PM EDT [facility] NON-WEED ERADICATOR CYTOLOGY FINAL DIAGNOSIS Catheterized urine, left ureter: - Negative for high-grade urothelial carcinoma. 10/30/2024 1:34 PM EDT [facility] at 1334 EDT EMBEDDED IMAGES 10/30/2024 1:34 PM EDT [facility] MICROSCOPIC DESCRIPTION Microscopic examination is performed and the findings corroborate the diagnosis. 10/30/2024 1:34 PM EDT [facility] Gross Description Urine, Rec'd 10ml of bloody fluid. (TP) 10/30/2024 1:34 PM EDT [facility] Urine URETHRAL STRUCTURE / Unknown 10/27/2024 2:03 PM EDT 10/27/2024 2:15 PM EDT us Patricia Ellison MD CYTOLOGY ORDERABLES Final Re sult [facility] [address] [place] [address] * EC ECHOCARDIOGRAM COMPLETE W DOPPLER AND [...] IMG ECHO ORDERABLES Final Re sult * CT ABDOMEN PELVIS WO ORAL WITH [...] (FAST), 10/19/2024 10:40 AM CLINICAL HISTORY: N13.30-Unspecified [id number]. COMPARISON: None. PROCEDURE COMMENTS: Multi-detector CT scanning [...] (FAST), 10/19/2024 10:40 AM CLINICAL HISTORY: N13.30-Unspecified [id number]. COMPARISON: None. PROCEDURE COMMENTS: Multi-detector CT scanning [...] contactthe office of the ordering clinician. Logan eKnny MD IMG CT ORDERABLES Final Resu lt * CREATININE ISTAT (10/19/2024 10:35 AM EDT) Creatinine-iSTA T 1.2 0.6 - 1.3 mg/dL 10/19/2024 10:39 AM EDT [facility] Blood BLOOD SPECIMEN / Unknown 10/19/2024 10:35 AM EDT 10/19/2024 10:39 AM EDT Logan Kenny MD POINT OF CARE TEST ORDERABLE [place] [address], [facility] [phone] * [place] US LOWER EXTREMITY BILATERAL MAPPING [...] in zones 5through 8. Logan Kenny MD [facility] [place] VASCULAR ORDERABLES Nadiya [...] the bilateral vertebral arteries. 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 PROCEDURE COMMENTS: Multi-detector CT of [...] disease of nativecoronary artery with unspecified angina [id number] COMPARISON: None. PROCEDURE COMMENTS: Multi-detector CT of [...] Advance Directives For more information, please contact: [phone] * Full Code (Latest Code Status on File) Date Activated Date Inactivated Comments 12/01/2024 6:51 PM 12/08/2024 3:55 PM Care Teams Casting Tester Relationship Specialty Start Date End Date Reyna Perez APRN [address] [place] [id number] PCP - General Nurse Practitioner 10/27/24
--- OUTSIDE RECORDS SUMMARY | 2024-12-28 04:21 | XMS_ITS | Encounter Summary ---
Author Organization [place] [address] Care Team Providers Care Refinery Operator Name Role Phone Reyna Perez APRN Primary Care Provider Reason for Visit * Reason Onset Date Comments Medication Refill 11/21/2024 Encounter Details Date Type Department Care Team (Late Contact Info) Description 11/21/2024 Refill [facility]PT[facility] [address] [place] [address] Patricia Ellison MD [address] [place], [place] [id number] Medication Refill Social History Tobacco Use Types [...] Department Care Team (Late Contact Info) Description 01/23/2025 9:00 AM EDT Office Visit [facility] Cardiac Surgeons [address] [place] [address] Logan Kenny MD [address] [place] [address] documented as of this encounter Visit Diagnoses Not on filedocumented in this encounter Discontinued Medications Medication Sig Discontinue Reason Start Date End Da te sulfamethoxazole-trimeth oprim (BACTRIM DS) 800-160 mg Oral Tablet Take 1 Tablet by mouth every 12 hours for 10 days. Reorder 11/05/2024 11/21/2024 documented as of this encounter Care Teams Refinery Operator Relationship Specialty Start Date End Date Reyna Perez APRN [address] [facility] [address] [place] [address] PCP - General Nurse Practitioner 10/27/24 documented as of this encounter
[2024-12-28 04:23] LABS: NT Pro Brain Natriuretic Pep. 250 pg/mL (0-125)
[2024-12-28 04:25] LABS: Troponin I < 0.01 ng/ml (0.00-0.034)
[2024-12-28 04:50] LABS: D-Dimer 1.06 ug/mL (0.0-0.5)
[2024-12-28] MEDS: ACETAMINOPHEN 500MG TAB 1000 MG PO (04:58)
--- NOTE | 2024-12-28 04:58 | CT_ITS ---
PROCEDURE INFORMATION: Exam: CTA Chest With Contrast Exam date and time: 12/28/2024 5:25 AM Age: 49 years old Clinical indication: Pain; Chest pressure; Additional info: Chest pressure, dimer elevated, recent nephrectomy TECHNIQUE: Imaging protocol: Computed tomographic angiography of the chest with contrast. Exam focused on the arteries. 3D rendering (Not supervised by radiologist): MIP and/or 3D reconstructed images were created by the technologist. Radiation optimization: All CT scans at this facility use at least one of these dose optimization techniques: automated exposure control; mA and/or kV adjustment per patient size (includes targeted exams where dose is matched to clinical indication); or iterative reconstruction. Contrast material: ISOVUE; Contrast volume: 70 ml; Contrast route: INTRAVENOUS (IV); COMPARISON: CT ANGIO CHEST PE PROTOCOL 11/09/2024 4:37 AM FINDINGS: Pulmonary arteries: Normal. No pulmonary emboli. Aorta: Unremarkable. No aortic aneurysm. No aortic dissection. Lungs: Unremarkable. No consolidation. No masses. Pleural spaces: Unremarkable. No pneumothorax. No pleural effusion. Heart: Unremarkable. No cardiomegaly. No pericardial effusion. Coronary arteries: Moderate coronary calcium noted. Lymph nodes: Small calcified hilar lymph nodes are present on the left. Bones/joints: Unremarkable. No acute fracture. Soft tissues: Unremarkable. IMPRESSION: 1. No evidence of pulmonary embolus or other acute process. 2. Small calcified left hilar lymph nodes consistent with prior granulomatous disease. 3. Coronary atherosclerosis.
[2024-12-28] MEDS: RINGERS SOLUTION,LACTATED 500 ML 999 ML IV (05:04)
[2024-12-28] MEDS: IOPAMIDOL-370 (76%);100ML BOTTLE 70 ML IV (05:31)
[2024-12-28] MEDS: SODIUM CHLORIDE 0.9% 10ML SYR (RAD ONLY) 10 ML IV (05:31)
[2024-12-28] MEDS: 0.9 % SODIUM CHLORIDE 50 ML VIAL IV (05:32)
--- NOTE | 2024-12-28 06:08 | P.HP_ITS ---
<Statement entered by Gio Corrales MD - 12/28/24 17:49> Rounded on patient after nurse practitioner. Personally examined and interviewed patient. Agree with exam findings and care plan as documented. History of Present Illness *Admission Date: 12/28/24 *Reason for visit:: Chest pain *History of present illness: This is a 49-year-old male with a past medical history of known CAD s/p PCI with 1 stent, renal cell carcinoma with history of left nephrectomy (12/01/2024), C. difficile, hyperlipidemia, hypertension, tobacco dependence, obesity who presents to the emergency department with chest tightness. He reports chest tightness that woke him from sleep this evening. States it is pressure-like in nature that goes across his chest. Denies any radiation to the pain. States that pain is better with sitting up and worse with lying flat. He denies any na usea vomiting or diaphoresis associated with this pain On chart review, patient was recently diagnosed with worsening CAD and renal cell carcinoma in November of this year. Underwent left nephrectomy on December 01 for renal cell carcinoma. During that hospitalization developed pneumonia and C. difficile for which he has been treated. States that he has now nontoxic and noncontagious from a C. difficile standpoint. With regards to his CAD, on last hospitalization in November he was offered stent placement but had decided at that time that he would undergo CABG. After his complicated course after his nephrectomy he has now decided that he does not want to undergo CABG. Has been reevaluated several times in Dr. Andrade's office for eventual left heart cath at the end of this month. He did see Renetta Jaramillo on 12/12/2024 and with shared decision making they decided to schedule left heart cath after he had recovered from his C. difficile. This appointment would likely be sometime at the end of December or early January Emergency department workup mostly unremarkable except for mildly elevated D- dimer of 1.08. Negative troponin. EKG without ischemia. CTA negative for D- dimer. Renal function stable and well. Given his history and recurrent chest pain and close follow-up with Dr. Andrade's office, patient has requested to stay here for more urgent evaluation for [facility] Disclaimer: The information contained in this section may have been updated after the patient was seen, as this information can be updated by other users. Medical History (Updated 12/28/24 @ 05:46 by Karla Johns MD) Carcinoma of left ureter Renal cancer Anemia SOB (shortness of breath) C. difficile colitis SOBOE (shortness of breath on exertion) Fatigue Tobacco dependence GERD (gastroesophageal reflux disease) Right shoulder pain Vitamin D deficiency Diastolic dysfunction Coronary artery disease Claudication Edema of both lower extremities Dizziness Abnormal result of cardiovascular function study Abnormal stress test Family history of early CAD Chest pain Hyperlipidemia Essential hypertension Surgical History History of left nephrectomy History of heart artery stent Hx of cardiac cath Family History Grandmother Cancer Father Diabetes Heart attack Hypertension Mother Hypertension Social History Smoking Status: Former smoker alcohol intake: never current occupational status: employed Travel in the last 8 weeks?: None Other Medical History Have you received the Flu Vaccine for this season: No Have you received the Pneumonia Vaccine: No Review of Systems Review of Systems Review of systems:: pertinent systems reviewed and negative unless documented below Review of systems (narrative): Negative except for HPI Meds Home Medications and Allergies Home Medications ?Medication ?Instructions ?Recorded ?Confirmed ?Type furosemide 40 mg tablet (Lasix) 40 mg PO DAILY #90 tab s 12/02/23 12/12/24 Rx Bacillus coagulans-inulin 1 1 cap PO DAILY #100 caps 1 12/12/24 Rx billion cell-250 mg capsule (Probiotic Formula (inulin)) aspirin 81 mg tablet,delayed 81 mg PO DAILY #90 tabs 0 09/04/24 12/12/24 Rx release nicotine 14 mg/24 hr daily 1 patch transdermal DAILY # 42 ea 09/26/24 12/12/24 Rx transdermal patch atorvastatin 80 mg tablet (Lipitor) 80 mg PO DAILY #90 tabs 10/24/24 12/12/24 Rx coenzyme Q10 100 mg capsule 100 mg PO DAILY #90 caps 0 10/24/24 12/12/24 Rx (Q-Sorb Co Q-10) hydrocortisone-pramoxine 2.5 %-1 % [address] QID PRN hemorrhoids 10/24/24 12/12/24 Rx rectal cream #30 grams lansoprazole 30 mg capsule,delayed 30 mg PO BID #90 ca ps 10/24/24 12/12/24 Rx release losartan 50 mg tablet 50 mg PO DAILY #90 tabs 10/0812/12/24 Rx metoprolol succinate 25 mg 25 mg PO DAILY #90 tabs 12/12/24 Rx tablet,extended release 24 hr prasugrel HCl 10 mg tablet 10 mg PO DAILY 30 days #90 tabs 10/24/24 12/12/24 Rx (Effient) albuterol sulfate 90 mcg/actuation 2 inh inhalation Q6 H PRN shortness 11/09/24 12/12/24 Rx breath activated powder inhaler of breath or wheezing #1 ea cholecalciferol (vitamin D3) 25 25 mcg PO DAILY 12/12/24 History mcg (1,000 unit) capsule famotidine 40 mg tablet 40 mg PO BID 11/09/24 History hydroxyzine pamoate 50 mg capsule 50 mg PO TID PRN anx iety #30 caps 11/09/24 12/12/24 Rx ondansetron HCl 4 mg tablet 4 mg PO Q8H PRN nausea and 12/11/24 12/12/24 Rx vomiting #20 tabs hydroxyzine pamoate 25 mg capsule 25 mg PO HS PRN 08/10/0112/12/24 History tolterodine 4 mg capsule,extended 4 mg PO ONCE 5 12/12/24 History release 24 hr tramadol 50 mg tablet 50 mg PO DAILY PRN 12/12/24 12/12/24 History vancomycin 125 mg capsule 125 mg PO QID 12/12/2412/12 History fidaxomicin 200 mg tablet 200 mg PO .COMPLEX #20 tabs 12/18/24 Rx New Prescriptions to Start Prescriptions: Allergies Allergy/AdvReac Type Severity Reaction Status Date / Time No Known Allergies Allergy Verified 12/12/24 13:23 Exam Data for Last 24 hours Vital signs and Labs for Last 24 Hours: Temp Pulse Resp BP Pulse Ox O2 Del Method O2 Flow Rate 97.6 F 73 21 114/71 100 Nasal Cannula 2 12/28/24 03:52 12/28/24 05:30 12/28/24 05:30 12/28/24 05:30 12/28/24 05:30 12/28/24 05:30 12/28/24 05:30 Laboratory Results - last 24 hr 12/28/24 03:50: WBC 8.2, RBC 3.90 L, Hgb 11.7 L, Hct 35.5 L, MCV 91.0, MCH 30.0, MCHC 33.0, RDW 13.9, Plt Count 247, MPV 9.3, Neut % (Auto) 65.2, Lymph % (Auto) 22.0, Ellis % (Auto) 9.5 H, Eos % (Auto) 2.4, Baso % (Auto) 0.4, Neut # (Auto) 5.4, Lymph # (Auto) 1.8, Ellis # (Auto) 0.8, Eos # (Auto) 0.2, Baso # (Auto) 0.0, PT 11.0, INR 0.99, D-Dimer 1.06 H, Sodium 140, Potassium 4.0, Chloride 106, Carbon Dioxide 24, Anion Gap 14.0, BUN 13, Creatinine 1.00, Estimated Creat Clear 128, Estimated GFR 79, Est GFR ( Amer) 96, Glucose 95, Calcium 9.0, Total Bilirubin 0.5, AST 28, ALT 34, Alkaline Phosphatase 115, Troponin I < 0.01, C-Reactive Protein 3.8, NT-Pro-B Natriuret Pep 250 H, Total Protein 6.7, Albumin 4.2, Globulin 2.5, Albumin/Globulin Ratio 1.7 I & O for Last 24 hours: Intake & Output 12/25/24 12/26/24 12/27/24 12/28/24 23:59 23:59 23:59 23:59 Intake Total 500 / 500 Balance 500 / 500 Weight 102.512 kg Constitutional Constitutional: no acute distress *Routine HEENT Exam Head: Present normocephalic Eye: Present EOMI and PERRL ENT: Present mucous membranes moist *Routine Neck Exam Neck: Present supple; Absent lymphadenopathy *Routine Respiratory Exam Respiratory: Present CTA bilaterally *Routine Cardiovascular Exam Cardiovascular: Present RRR *Routine Abdominal Exam Abdominal: Present soft and normoactive bowel sounds; Absent tenderness *Routine Rectal Exam Rectal:: deferred *Routine Genitalia Exam Genitalia:: deferred *Routine Extremities Exam Extremities: Absent cyanosis, clubbing or edema *Routine Skin Exam Skin: Present warm; Absent rash *Routine Neurological Exam Neurological: Present alert and oriented X3 Assessment and Plan *Assessment and plan (1) Unstable angina: Status: Acute Category: Medical Code(s): I20.0 - Unstable angina (2) History of left nephrectomy: Status: Acute Category: Surgical Code(s): Z90.5 - Acquired absence of kidney (3) Tobacco dependence: Status: Acute Category: Medical Code(s): F17.200 - Nicotine dependence, unspecified, uncomplicated (4) Class II obesity: Status: Acute Category: Medical Code(s): E66.812 - Obesity, class 2 (5) Coronary artery disease: Status: Chronic Qualifiers: Coronary Disease-Associated Artery/Lesion type: [place] artery [place] vs. transplanted heart: [place] heart Associated angina: with other forms of angina Qualified Code(s): I25.118 - Atherosclerotic heart disease of [place] coronary artery with other forms of angina pectoris Category: Medical Code(s): I25.10 - Atherosclerotic heart disease of [place] coronary artery without angina pectoris (6) Hyperlipidemia: Status: Acute Qualifiers: Hyperlipidemia type: unspecified Qualified Code(s): E78.5 - Hyperlipidemia, unspecified Category: Medical Code(s): E78.5 - Hyperlipidemia, unspecified (7) Essential hypertension: Status: Acute Category: Medical Code(s): I10 - Essential (primary) hypertension Plan #Unstable angina #Coronary artery disease Known coronary artery disease and per patient patient has had increase in stenosis significantly over the last year. Plans for heart cath in the near future. Given his recurrent chest pain today and concern for needing for more urgent LHC, admitted for further workup Consult cardiology this a.m. Continue home DAPT Continue home beta-christopher Lasix on home medication list but states he has not been taking it secondary to frequent urination and recent nephrectomy #Acquired absence of left kidney #Renal cell carcinoma Went left nephrectomy on 12/01/2024. Renal function normalized and doing well. Incision healed Patient reports he was waiting for the go ahead from his renal physician to schedule his LHC. Will attempt to reach out for clinical conversation today #C. difficile Reports C. difficile testing is now nondetectable Remains on Dificid #HTN HLD Home medications once appropriate #Nicotine dependence Nicotine patch as needed #Class II obesity Complicates all aspects of care
--- NOTE | 2024-12-28 06:29 | PC.NURSE ---
Patient to floor via wheelchair from ED at 06:26
[2024-12-28 07:45] LABS: Troponin I < 0.01 ng/ml (0.00-0.034)
--- NOTE | 2024-12-28 08:10 | HMH.PHAINT1 ---
Pharmacy Intervention Comments: MEDICATION RECONCILIATION COMPLETED ON PATIENT USING EXTERNAL FILL HISTORY FROM PHARMACY AND LIST FROM CARDIOLOGY OFFICE. -MARISSA SLATER, COCOD
[2024-12-28 10:35] LABS: Troponin I < 0.01 ng/ml (0.00-0.034)
--- NOTE | 2024-12-28 10:41 | EXP.CARD.CON ---
History of Present Illness History of Present Illness Consult date: 12/28/24 Requesting physician: Gio Corrales Consult reason: chest pain Chief complaint: Chest pain History of present illness: This is a 49-year-old white gentleman who presented to the emergency department with chest pain. He states that he has been having tightness in the substernal aspect of his chest. He states that it is then radiating across to his chest but denies radiation down his arms. He states that this is worse when he is lying down. He states that his symptoms woke him from his sleep last night. It is associated with shortness of breath. He denies any nausea, vomiting or diaphoresis. The patient has known coronary artery disease with recent stenting in September 2024. He had persistent disease that required intervention. The patient did go for second opinion and was being set up for CABG when they found renal cell carcinoma. He is status post left nephrectomy in November for his renal cell carcinoma. During that hospitalization he developed pneumonia and C. difficile. He has been treated for those. The patient has been offered stent placement but wanted to have CABG. He states that his recovery from his nephrectomy was pretty lengthy and he is now decided that he does not want to have CABG and would like to proceed with left cardiac catheterization for his persistent coronary artery disease. Given his unstable angina we will plan to proceed with left cardiac catheterization today. [facility] Disclaimer: The information contained in this section may have been updated after the patient was seen, as this information can be updated by other users. Medical History (Updated 12/28/24 @ 10:45 by Renetta Jaramillo APRN) History of renal cell carcinoma Carcinoma of left ureter Renal cancer Anemia SOB (shortness of breath) C. difficile colitis SOBOE (shortness of breath on exertion) Fatigue Tobacco dependence GERD (gastroesophageal reflux disease) Right shoulder pain Vitamin D deficiency Diastolic dysfunction Coronary artery disease Claudication Edema of both lower extremities Dizziness Abnormal result of cardiovascular function study Abnormal stress test Family history of early CAD Chest pain Hyperlipidemia Essential hypertension Surgical History History of left nephrectomy History of heart artery stent Hx of cardiac cath Family History Grandmother Cancer Father Diabetes Heart attack Hypertension Mother Hypertension Social History (Reviewed 08/05/25 @ 13:20 by Renee Warner Smoking Status: Former smoker alcohol intake: never current occupational status: employed Travel in the last 8 weeks?: None Review of Systems Review of Systems Review of systems:: pertinent systems reviewed and negative unless documented below Constitutional Constitutional: Reports system reviewed and no additional complaints, except as documented, Reports fatigue and Reports lethargy Eyes Eyes: Reports system reviewed and no additional complaints, except as documented ENT Ears, Nose, Mouth, and Throat: Reports system reviewed and no additional complaints, except as documented *Cardiovascular Cardiovascular: Reports system reviewed and no additional complaints, except as documented, Reports chest pain, Reports chest pain at rest, Reports chest pain with activity, Reports dyspnea and Reports dyspnea on exertion *Respiratory Respiratory: Reports system reviewed and no additional complaints, except as documented, Reports dyspnea and Reports dyspnea on exertion *Gastrointestinal Gastrointestinal: Reports system reviewed and no additional complaints, except as documented and Reports cramping *Genitourinary Genitourinary: Reports system reviewed and no additional complaints, except as documented *Musculoskeletal Musculoskeletal: Reports system reviewed and no additional complaints, except as documented Integumentary/Breasts Skin/Breast: Reports system reviewed and no additional complaints, except as documented *Neurologic Neurologic: Reports system reviewed and no additional complaints, except as documented Psychiatric Psychiatric: Reports system reviewed and no additional complaints, except as documented Endocrine Endocrine: Reports system reviewed and no additional complaints, except as documented and Reports fatigue Hematologic/Lymphatic Hematologic/Lymphatic: Reports system reviewed and no additional complaints, except as documented Allergic/Immunologic Allergic/Immunologic: Reports system reviewed and no additional complaints, except as documented Exam Data for Last 24 hours Vital signs and Labs for Last 24 Hours: Temp Pulse Resp BP Pulse Ox O2 Del Method O2 Flow Rate 98.0 F 70 18 137/80 98 Room Air 2 12/28/24 07:25 12/28/24 07:25 12/28/24 07:25 12/28/24 07:25 12/28/24 07:25 12/28/24 07:25 12/28/24 05:30 Laboratory Results - last 24 hr 12/28/24 03:50: WBC 8.2, RBC 3.90 L, Hgb 11.7 L, Hct 35.5 L, MCV 91.0, MCH 30.0, MCHC 33.0, RDW 13.9, Plt Count 247, MPV 9.3, Neut % (Auto) 65.2, Lymph % (Auto) 22.0, [place] % (Auto) 9.5 H, Eos % (Auto) 2.4, Baso % (Auto) 0.4, Neut # (Auto) 5.4, Lymph # (Auto) 1.8, [place] # (Auto) 0.8, Eos # (Auto) 0.2, Baso # (Auto) 0.0, PT 11.0, INR 0.99, D-Dimer 1.06 H, Sodium 140, Potassium 4.0, Chloride 106, Carbon Dioxide 24, Anion Gap 14.0, BUN 13, Creatinine 1.00, Estimated Creat Clear 128, Estimated GFR 79, Est GFR ( Amer) 96, Glucose 95, Calcium 9.0, Total Bilirubin 0.5, AST 28, ALT 34, Alkaline Phosphatase 115, Troponin I < 0.01, C-Reactive Protein 3.8, NT-Pro-B Natriuret Pep 250 H, Total Protein 6.7, Albumin 4.2, Globulin 2.5, Albumin/Globulin Ratio 1.7 12/28/24 07:00: Troponin I < 0.01 12/28/24 09:59: Troponin I < 0.01 I & O for Last 24 hours: Intake & Output 12/25/24 12/26/24 12/27/24 12/28/24 23:59 23:59 23:59 23:59 Intake Total 500 / 500 Balance 500 / 500 Weight 229 lb 8 oz Constitutional Constitutional: no acute distress and obese *Routine HEENT Exam Head: Present normocephalic and atraumatic ENT: Present mucous membranes moist *Routine Neck Exam Neck: Present supple, full ROM and normal carotid upstroke; Absent JVD, carotid bruit or lymphadenopathy *Routine Respiratory Exam Respiratory: Present CTA bilaterally, normal respiratory effort, able to speak in complete sentences and symmetric chest movement *Routine Cardiovascular Exam Cardiovascular: Present RRR, Normal S1 and Normal S2; Absent murmur or gallop *Routine Abdominal Exam Abdominal: Present soft and normoactive bowel sounds; Absent tenderness, distended or organomegaly *Routine Extremities Exam Extremities: Present full ROM, pulses intact and normal capillary refill; Absent cyanosis, clubbing or edema *Routine Skin Exam Skin: Present intact and warm; Absent erythema *Routine Neurological Exam Neurological: Present alert, oriented X3 and CN II-XII intact; Absent sensory deficit or motor deficit Routine Psychiatric Exam Psychiatric: Present normal affect Meds Home Medications and Allergies Home Medications ?Medication ?Instructions ?Recorded ?Confirmed ?Type furosemide 40 mg tablet (Lasix) 40 mg PO DAILY #90 tabs 12/02/23 12/28/24 Rx Bacillus coagulans-inulin 1 1 cap PO DAILY #100 caps 02/25/24 12/28/24 Rx billion cell-250 mg capsule (Probiotic Formula (inulin)) aspirin 81 mg tablet,delayed 81 mg PO DAILY #90 tabs 09/04/24 12/28/24 Rx release atorvastatin 80 mg tablet (Lipitor) 80 mg PO DAILY #90 tabs 10/24/24 12/28/24 Rx coenzyme Q10 100 mg capsule 100 mg PO DAILY #90 caps 10/24/24 12/28/24 Rx (Q-Sorb Co Q-10) losartan 50 mg tablet 50 mg PO DAILY #90 tabs 10/24/24 12/28/24 Rx metoprolol succinate 25 mg 25 mg PO DAILY #90 tabs 10/24/24 12/28/24 Rx tablet,extended release 24 hr cholecalciferol (vitamin D3) 25 25 mcg PO DAILY 11/09/24 12/28/24 History mcg (1,000 unit) capsule tolterodine 4 mg capsule,extended 4 mg PO DAILY 12/12/24 12/28/24 History release 24 hr tramadol 50 mg tablet 50 mg PO DAILYP PRN Moderate Pain 12/12/24 12/28/24 History (Scale Score 5-6) albuterol sulfate 90 mcg/actuation 2 inh inhalation Q6HP PRN 12/28/24 12/28/24 History breath activated powder inhaler shortness of breath or wheezing fidaxomicin 200 mg tablet 200 mg PO Q48H 12/28/24 12/28/24 History ondansetron HCl 4 mg tablet 4 mg PO Q8HP PRN nausea and 12/28/24 12/28/24 History vomiting New Prescriptions to Start Prescriptions: Allergies Allergy/AdvReac Type Severity Reaction Status Date / Time No Known Allergies Allergy Verified 12/12/24 13:23 Assessment and Plan *Assessment and plan (1) Unstable angina: Status: Acute Category: Medical Code(s): I20.0 - Unstable angina (2) Coronary artery disease: Status: Chronic Qualifiers: Associated angina: with other forms of angina Coronary Disease-Associated Artery/Lesion type: [place] artery [place] vs. transplanted heart: [place] heart Qualified Code(s): I25.118 - Atherosclerotic heart disease of [place] coronary artery with other forms of angina pectoris Category: Medical Code(s): I25.10 - Atherosclerotic heart disease of [place] coronary artery without angina pectoris (3) Essential hypertension: Status: Acute Category: Medical Code(s): I10 - Essential (primary) hypertension (4) Hyperlipidemia: Status: Acute Qualifiers: Hyperlipidemia type: unspecified Qualified Code(s): E78.5 - Hyperlipidemia, unspecified Category: Medical Code(s): E78.5 - Hyperlipidemia, unspecified (5) History of renal cell carcinoma: Status: Acute Category: Medical Code(s): Z85.528 - Personal history of other malignant neoplasm of kidney (6) History of left nephrectomy: Status: Acute Category: Surgical Code(s): Z90.5 - Acquired absence of kidney Plan Plan: 1. The patient was admitted to the hospital with unstable angina. He has persistent known LAD and circumflex disease. Will plan to proceed with left cardiac catheterization with PCI to the LAD and left circumflex arteries. 2. The patient has been educated on the risks and benefits of proceeding with left cardiac catheterization. The patient verbalizes understanding and is agreeable in proceeding with the procedure. 3. The patient will be n.p.o. in preparation for left cardiac catheterization. 4. CAD is present. Continue aspirin. 5. His blood pressure is well-controlled. Continue metoprolol and losartan. 6. His LDL goal is less than 55. His LDL was 65 in September 2024. He is on a statin. 7. Further recommendations will be made pending the patient's response to treatment and the results of his left cardiac catheterization today. Thank you for the opportunity to help participate in the care of this patient. All recommendations and orders are per Dr. Christianson. Addendum: [facility] shows 1 stent to circ and 1 stent to LAD. Effient and Aspirin for DAPT. Ok to discharge home today with follow up in cardiology clinic in 1 week. discharge cardio meds: aspirin 81 mg daily effient 10 mg daily lipitor 80 mg qhs losartan 50 mg daily toprol 25 mg daily
--- NOTE | 2024-12-28 11:45 | IR_ITS ---
APPROVED REPORT Patient Location: Inpatient Dining Host: TWILA Hall RT (R) PROCEDURES Selective coronary angiogram Drug-eluting stent deployment to the ostial LAD Drug-eluting stent deployment to the proximal dominant circumflex artery Intravascular ultrasound to the LAD and circumflex artery INDICATION Coronary artery disease, Acute coronary syndrome, Refusal to undergo coronary artery bypass surgery Informed consent was obtained prior to the procedure. COMPLICATIONS None Estimated Blood Loss: Less than 10 mls TECHNIQUE One percent lidocaine used to anesthetize the right anterior aspect of the wrist. The right radial artery was accessed via the Seldinger technique. A 6 [place] sheath was placed in the right radial artery. 2.5 mg of Verapamil, 800 mcg of nitroglycerin, 1mg Lidocaine and 5000 U Heparin were given through the arterial sheath. The JL3 catheter was also used to perform selective coronary angiogram. At the end of the diagnostic angiogram therapeutic heparin is administered given a therapeutic ACT and the guide catheter was placed in left main artery followed by 2 Choice PT extra-support wires placed 1 in the LAD and 1 of circumflex artery. A 4 mm x 8 mm [place] frontier stent was placed in the ostial proximal LAD and deployed at 18 mindy reducing the stenosis to 0%. Intravascular ultrasound probe was then advanced down the circumflex artery which demonstrated an MLA of 3.8 mm??? with heavy plaque burden. A 3.5 x 18 mm [place] frontier stent was placed in the proximal circumflex artery at 20 mindy reducing the stenosis to 0%. BRIANNA-3 flow was present before and after the procedure. At the end of procedure the intravascular sound probe was used to evaluate the patency of the LAD stent as well as the origin of the dominant circumflex artery to make sure there was no stent encroachment. After achieving excellent angiographic results apparatus was removed the sheath was removed and hemostasis was achieved and TR banding patient was transferred to the postop boarding in stable condition ANGIOGRAPHIC RESULTS The left main artery Normal The left anterior descending artery Has an ostial 70 to 80% stenosis with proximal and mid vessel 20-30% stenoses The circumflex artery Is dominant and has proximal 60 to 70% stenosis with additional 30 to 40% stenosis extending to a large first obtuse marginal artery The right coronary artery Nondominant yet still large with stents in the proximal to mid segment which are widely patent with minimal in-stent restenosis with diffuse 30% stenosis The CRUZ ventriculogram reveals Not performed The left ventricular end-diastolic pressure Not measured IMPRESSION Coronary disease as described above Successful stenting of the ostial LAD severe disease reduced to 0% with 1 drug-eluting stent Successful stenting of the proximal dominant circumflex artery severe disease reduced to 0% with 1 drug-eluting stent PLAN 1. Dual antiplatelet therapy 2. Cardiac rehabilitation 3. Avoidance of tobacco products 4. Risk factor modification 5. LDL less than 55 achieved high intensity statin Electronically signed by : Tommy Andrade MD 03/02/2025 14:32:36
[2024-12-28] MEDS: HEPARIN 1,000 UNITS/ML 10ML VIAL (CATH LAB) 5000 UNIT IV (12:05)
[2024-12-28] MEDS: NITROGLYCERIN 800MCG/8ML SYR (CATH LAB) 800 MCG IA (12:05)
[2024-12-28] MEDS: 0.9 % SODIUM CHLORIDE 500 ML 25 ML IV (12:05)
[2024-12-28] MEDS: LIDOCAINE 1% 10ML MDV 10 ML IJ (12:05)
[2024-12-28] MEDS: HEPARIN 1,000 UNITS/500ML NS (CATH LAB) 3000 UNIT IV (12:05)
[2024-12-28] MEDS: FENTANYL 100MCG/2ML VIAL 25 MCG IV (12:06)
[2024-12-28] MEDS: VERAPAMIL 2.5MG/ML 2ML VIAL 2.5 MG IV (12:06)
[2024-12-28] MEDS: MIDAZOLAM HCL 1MG/ML 5ML VIAL 1 MG IV (12:07)
[2024-12-28] MEDS: IOPAMIDOL-370 (76%);100ML BOTTLE 120 ML IV (13:25)
[2024-12-28] MEDS: PRASUGREL 10MG TAB 60 MG PO (13:26)
--- NOTE | 2024-12-28 14:13 | P.DS_ITS ---
General Admission date:: 12/28/24 Discharge date: 12/28/24 HPI HPI HPI: This is a 49-year-old male with a past medical history of known CAD s/p PCI with 1 stent, renal cell carcinoma with history of left nephrectomy (12/01/2024), C. difficile, hyperlipidemia, hypertension, tobacco dependence, obesity who presents to the emergency department with chest tightness. He reports chest tightness that woke him from sleep this evening. States it is pressure-like in nature that goes across his chest. Denies any radiation to the pain. States that pain is better with sitting up and worse with lying flat. He denies any nausea vomiting or diaphoresis associated with this pain On chart review, patient was recently diagnosed with worsening CAD and renal cell carcinoma in November of this year. Underwent left nephrectomy on December 01 for renal cell carcinoma. During that hospitalization developed pneumonia and C. difficile for which he has been treated. States that he has now nontoxic and noncontagious from a C. difficile standpoint. With regards to his CAD, on last hospitalization in November he was offered stent placement but had decided at that time that he would undergo CABG. After his complicated course after his nephrectomy he has now decided that he does not want to undergo CABG. Has been reevaluated several times in Dr. Andrade's office for eventual left heart cath at the end of this month. He did see Renetta Jaramillo on 12/12/2024 and with shared decision making they decided to schedule left heart cath after he had recovered from his C. difficile. This appointment would likely be sometime at the end of December or early January Emergency department workup mostly unremarkable except for mildly elevated D- dimer of 1.08. Negative troponin. EKG without ischemia. CTA negative for D- dimer. Renal function stable and well. Given his history and recurrent chest pain and close follow-up with Dr. Andrade's office, patient has requested to stay here for more urgent evaluation for [facility] Hospital Course Hospital Course Hospital Course: 49-year-old male who has been followed by cardiology clinic for unstable angina. Presented to the ER because of chest pain. Concern for unstable angina. Known coronary artery disease. Has been referred for evaluation of possible CABG, patient does not want to proceed with a CABG and is having unstable angina. Case discussed with ER, requested admission for further management. Cardiology evaluated on morning. Taken for left heart cath with 2 stents placed, 1 in the circumflex and 1 in the ostial LAD. Good response achieved with improved BRIANNA flow. Stable discharge home with close follow-up as an outpatient. Problems addressed as follows: CAD Hx of VIC Class III-IV angina Hypertension Presented with chest pain. Serial troponins were negative. EKG upon admission negative for STEMI. We decided not to pursue CABG. Underwent nephrectomy and has recovered from that surgery. Cardiology evaluated, taken for left heart cath with 2 stents placed, 1 in the circumflex and 1 in the LAD. Will continue dual antiplatelet therapy with aspirin 81 mg daily and Effient 10 mg daily. - Stable discharge home with close outpatient follow-up. - Continue home medications as follows: Lipitor 80 mg p.o. daily, Toprol 25 mg p.o. daily, losartan 50 mg daily, Lasix 40 mg daily Echo in September 2024 shows EF 55 to 60%. Toobacco use disorder: Previously smoking 2 to 3 packs a day. Discontinued smoking after his nephrectomy. GERD: Continue pantoprazole 40 mg twice daily Kidney function remains normal. No signs of GLENDA #Acquired absence of left kidney #Renal cell carcinoma Went left nephrectomy on 12/01/2024. Renal function normalized and doing well. Incision healed #C. difficile, present on admission. Reports C. difficile testing is now nondetectable. Remains on Dificid #Class II obesity Complicates all aspects of care Exam Data for Last 24 hours Vital signs and Labs for Last 24 Hours: Temp Pulse Resp BP Pulse Ox O2 Del Method O2 Flow Rate 98.0 F 77 18 139/84 97 Room Air 2 12/28/24 07:25 12/28/24 13:30 12/28/24 13:30 12/28/24 13:30 12/28/24 13:30 12/28/24 13:30 12/28/24 05:30 Laboratory Results - last 24 hr 12/28/24 03:50: WBC 8.2, RBC 3.90 L, Hgb 11.7 L, Hct 35.5 L, MCV 91.0, MCH 30.0, MCHC 33.0, RDW 13.9, Plt Count 247, MPV 9.3, Neut % (Auto) 65.2, Lymph % (Auto) 22.0, [place] % (Auto) 9.5 H, Eos % (Auto) 2.4, Baso % (Auto) 0.4, Neut # (Auto) 5.4, Lymph # (Auto) 1.8, [place] # (Auto) 0.8, Eos # (Auto) 0.2, Baso # (Auto) 0.0, PT 11.0, INR 0.99, D-Dimer 1.06 H, Sodium 140, Potassium 4.0, Chloride 106, Car bon Dioxide 24, Anion Gap 14.0, BUN 13, Creatinine 1.00, Estimated Creat Clear 128, Estimated GFR 79, Est GFR ( Amer) 96, Glucose 95, Calcium 9.0, Total Bilirubin 0.5, AST 28, ALT 34, Alkaline Phosphatase 115, Troponin I < 0.01, C- Reactive Protein 3.8, NT-Pro-B Natriuret Pep 250 H, Total Protein 6.7, Albumin 4.2, Globulin 2.5, Albumin/Globulin Ratio 1.7 12/28/24 07:00: Troponin I < 0.01 12/28/24 09:59: Troponin I < 0.01 I & O for Last 24 hours: Intake & Output 12/25/24 12/26/24 12/27/24 12/28/24 23:59 23:59 23:59 23:59 Intake Total 527.917 / 527.917 Balance 527.917 / 527.917 Weight 104.099 kg Constitutional Constitutional: no acute distress, obese and cooperative *Routine HEENT Exam Head: Present normocephalic Eye: Present EOMI and PERRL ENT: Present mucous membranes moist *Routine Neck Exam Neck: Present supple; Absent lymphadenopathy *Routine Respiratory Exam Respiratory: Present CTA bilaterally; Absent rhonchi, wheezes or crackles *Routine Cardiovascular Exam Cardiovascular: Present RRR *Routine Abdominal Exam Abdominal: Present soft and normoactive bowel sounds; Absent tenderness *Routine Rectal Exam Patient deferred: visual exam *Routine Exam Patient deferred: penile exam *Routine Extremities Exam Extremities: Absent cyanosis, clubbing or edema Comments: Right radial insertion site clean dry and intact *Routine Skin Exam Skin: Present warm; Absent rash *Routine Neurological Exam Neurological: Present alert, oriented X3 and moving all extremities; Absent altered mental status Results Data Completed and Pending Labs on day of discharge: Labs from last 24 hours 12/28/24 12/28/24 12/28/24 09:59 07:00 03:50 WBC 8.2 RBC 3.90 L Hgb 11.7 L Hct 35.5 L MCV 91.0 MCH 30.0 MCHC 33.0 RDW 13.9 Plt Count 247 MPV 9.3 Neut % (Auto) 65.2 Lymph % (Auto) 22.0 [place]as[place] % (Auto) 9.5 H Eos % (Auto) 2.4 Baso % (Auto) 0.4 Neut # (Auto) 5.4 Lymph # (Auto) 1.8 [place] # (Auto) 0.8 Eos # (Auto) 0.2 Baso # (Auto) 0.0 PT 11.0 INR 0.99 D-Dimer 1.06 H Sodium 140 Potassium 4.0 Chloride 106 Carbon Dioxide 24 Anion Gap 14.0 BUN 13 Creatinine 1.00 Estimated Creat Clear 128 Estimated GFR 79 Est GFR ( Amer) 96 Glucose 95 Calcium 9.0 Total Bilirubin 0.5 AST 28 ALT 34 Alkaline Phosphatase 115 Troponin I < 0.01 < 0.01 < 0.01 C-Reactive Protein 3.8 NT-Pro-B Natriuret Pep 250 H Total Protein 6.7 Albumin 4.2 Globulin 2.5 Albumin/Globulin Ratio 1.7 DS: Diagnosis Discharge Diagnosis (1) Unstable angina: Status: Acute Code(s): I20.0 - Unstable angina (2) Coronary artery disease: Status: Chronic Code(s): I25.10 - Atherosclerotic heart disease of [place] coronary artery without angina pectoris Qualifiers: Associated angina: with other forms of angina Coronary Disease- Associated Artery/Lesion type: [place] artery [place] vs. transplanted heart: [place] heart Qualified Code(s): I25.118 - Atherosclerotic heart disease of [place] coronary artery with other forms of angina pectoris (3) Essential hypertension: Status: Acute Code(s): I10 - Essential (primary) hypertension (4) Hyperlipidemia: Status: Acute Code(s): E78.5 - Hyperlipidemia, unspecified Qualifiers: Hyperlipidemia type: unspecified Qualified Code(s): E78.5 - Hyperlipidemia, unspecified (5) History of renal cell carcinoma: Status: Acute Code(s): Z85.528 - Personal history of other malignant neoplasm of kidney (6) History of left nephrectomy: Status: Acute Code(s): Z90.5 - Acquired absence of kidney Meds Home Medications and Allergies Home Medications ?Medication ?Instructions ?Recorded ?Confirmed ?Type furosemide 40 mg tablet (Lasix) 40 mg PO DAILY #90 tab s 12/02/23 12/28/24 Rx Bacillus coagulans-inulin 1 1 cap PO DAILY #100 caps 1 12/28/24 Rx billion cell-250 mg capsule (Probiotic Formula (inulin)) aspirin 81 mg tablet,delayed 81 mg PO DAILY #90 tabs 0 09/04/24 12/28/24 Rx release atorvastatin 80 mg tablet (Lipitor) 80 mg PO DAILY #90 tabs 10/24/24 12/28/24 Rx coenzyme Q10 100 mg capsule 100 mg PO DAILY #90 caps 0 10/24/24 12/28/24 Rx (Q-Sorb Co Q-10) losartan 50 mg tablet 50 mg PO DAILY #90 tabs 10/0812/28/24 Rx metoprolol succinate 25 mg 25 mg PO DAILY #90 tabs 12/28/24 Rx tablet,extended release 24 hr cholecalciferol (vitamin D3) 25 25 mcg PO DAILY 12/28/24 History mcg (1,000 unit) capsule tolterodine 4 mg capsule,extended 4 mg PO DAILY 12/28/24 History release 24 hr tramadol 50 mg tablet 50 mg PO DAILYP PRN Moderate Pain 12/12/24 12/28/24 History (Scale Score 5-6) albuterol sulfate 90 mcg/actuation 2 inh inhalation Q6 HP PRN 12/28/24 12/28/24 History breath activated powder inhaler shortness of breath or wheezing fidaxomicin 200 mg tablet 200 mg PO Q48H 12/28/2412/09 History ondansetron HCl 4 mg tablet 4 mg PO Q8HP PRN nausea an d 12/28/24 12/28/24 History vomiting prasugrel HCl 10 mg tablet 10 mg PO DAILY 30 days #30 tabs 12/28/24 Rx New Prescriptions to Start Prescriptions: prasugrel HCl Gio Corrales Allergies Allergy/AdvReac Type Severity Reaction Status Date / Time No Known Allergies Allergy Verified 12/12/24 13:23 Discharge Plan Disposition Patient Disposition: Home, Self-Care Condition: Fair Follow up Plan Follow up with: Tommy Andrade MD [Staff Physician, Cardiology] - 01/03/25 9:15 am Referral Note: Prescriptions/Medication Reconciliation: New prasugrel HCl 10 mg Tablet 10 mg PO DAILY 30 Days Qty: 30 0RF Continued atorvastatin [Lipitor] 80 mg tablet 80 mg PO DAILY Qty: 90 1RF coenzyme Q10 [Q-Sorb Co Q-10] 100 mg capsule 100 mg PO DAILY Qty: 90 1RF Patient Comments: TAKE 1 CAPSULE BY MOUTH ONCE DAILY losartan 50 mg tablet 50 mg PO DAILY Qty: 90 3RF metoprolol succinate 25 mg tablet extended release 24 hr 25 mg PO DAILY Qty: 90 3RF tolterodine 4 mg capsule,extended release 24hr 4 mg PO DAILY tramadol 50 mg tablet 50 mg PO DAILYP PRN (Reason: Moderate Pain (Scale Score 5-6)) furosemide [Lasix] 40 mg tablet 40 mg PO DAILY Qty: 90 3RF Probiotic Formula (inulin) 1 billion-250 cell-mg capsule 1 cap PO DAILY Qty: 100 10RF aspirin 81 mg tablet,delayed release (DR/EC) 81 mg PO DAILY Qty: 90 3RF cholecalciferol (vitamin D3) 25 mcg (1,000 unit) capsule 25 mcg PO DAILY ondansetron HCl 4 mg tablet 4 mg PO Q8HP PRN (Reason: nausea and vomiting) fidaxomicin 200 mg tablet 200 mg PO Q48H albuterol sulfate 90 mcg/actuation aerosol powdr breath activated 2 inh inhalation Q6HP PRN (Reason: shortness of breath or wheezing) Other Ambulatory Orders: Basic Metabolic Panel (Routine) Timeframe: 20250103 [facility] Laboratory Ordered By: Tommy Andrade Complete Blood Count Auto Diff (Routine) Timeframe: 20250103 [facility] - Location: Laboratory Ordered By: Tommy Andrade Problem Reconciliation Problems Reviewed?: Yes Patient Discharge Instructions ACTIVITY: Continue current activity DIET: continue same diet Patient Instructions: DI for Chest Pain Print Language: Turkmen Providers Primary Care Provider: Provider,Referral Admit Provider: Gio Corrales Attending Provider: Gio Corrales
[2024-12-28] MEDS: IRBESARTAN 75MG TABLET 75 MG PO (14:30)
[2024-12-28] MEDS: METOPROLOL SUCCINATE XL 25MG TABLET 25 MG PO (14:30)
--- NOTE | 2024-12-29 10:36 | CARE MANAGER ---
Spoke with patient via phone to discuss recent discharge. Patient stated that he is doing well and is taking all medication as prescribed. He was aware of scheduled f/u with cardiology. No concerns or questions voiced at time of call.
== END 2024-12-28 16:00 | disposition home or self-care (01) ==
LOC: ER 05:46 → 2ND 05:49
PROVIDERS: Internal Medicine; Admitting Provider Internal Medicine Adolescent Medicine; Emergency Provider Emergency Medicine; Visit Provider Internal Medicine Adolescent Medicine
PROC: 4A023N7 Measurement of Cardiac Sampling and Pressure, Left Heart, Percutaneous Approach (ICD-10-PCS; CPT 93452; principal; 2024-12-28 10:30)
DX: I25.118 Atherosclerotic heart disease of native coronary artery with other forms of angina pectoris (principal); I10 Essential (primary) hypertension; E78.5 Hyperlipidemia, unspecified; K21.9 Gastro-esophageal reflux disease without esophagitis; E66.812 Obesity, class 2; Z68.34 Body mass index [BMI] 34.0-34.9, adult; Z85.528 Personal history of other malignant neoplasm of kidney; Z90.5 Acquired absence of kidney; Z79.899 Other long term (current) drug therapy; Z79.82 Long term (current) use of aspirin; Z95.1 Presence of aortocoronary bypass graft; Z82.49 Family history of ischemic heart disease and other diseases of the circulatory system; Z87.891 Personal history of nicotine dependence
CPT/HCPCS: 36415; 71046; 71275; 80053; 83880; 84484; 85025; 85378; 85610; 86140; 93005; 96360; 99152; 99153; 99285; C1725; C1760; C1769; C1874; G0378; J1200; J1644; J2003; J2250; J2270; J2405; J3010; J7040; J7120; Q9967

== ENCOUNTER 2025-01-03 08:13 | Outpatient (CLI) | payer BC, SELFPAY ==
--- OUTSIDE RECORDS SUMMARY | 2024-10-24 09:00 | XMS_ITS | Encounter Summary ---
Author Organization [place] [address] Care Team Providers Care Project Controls Specialist Name Role Phone Reyna Perez APRN Primary Care Provider [phone] Encounter Details Date Type Department Care Team (Late st Contact Info) Description 10/24/2024 9:00 AM EDT Telemedicine [facility] Cardiac Surgeons [place] [address] [place] [address] [address] [place] [address] Logan Kenny MD [address] [place], [place] [id number] ASHD (arteriosclerotic heart disease) (Primary Dx); Ureteral mass Social History Tobacco Use Types Packs/Day Years Used Date Smoking Tobacco: Every Day Cigarettes 1 35.7 Started: 1990 Smokeless Tobacco: Never Alcohol Use [...] Care Team (Late st Contact Info) Description 01/23/2025 9:00 AM EDT Office Visit [facility] Cardiac Surgeons [place] [address] [place] [address] Drive [address] [place] [address] Logan Kenny MD [address] [place] [address] [place] [address] documented as of this encounter Visit Diagnoses Diagnosis ASHD (arteriosclerotic heart disease)- Primary Coronary atherosclerosis of unspecified type of vessel, port gamble or graft Ureteral mass Unspecified disorder of kidney and ureter documented in this encounter Care Teams Project Controls Specialist Relationship Specialty Start Date End Date Reyna Perez APRN 12[address] [facility] [address] [place] [address] PCP - General Nurse Practitioner 10/27/24 documented as of this encounter
--- OUTSIDE RECORDS SUMMARY | 2024-11-07 03:27 | XMS_ITS | Encounter Summary ---
Author Organization [facility] [address] Care Team Providers Care Friend Of The Court Name Role Phone Reyna Perez DEMETRIUS Primary Care Provider [phone] Reason for Visit * Reason Comments Shortness of Breath SOB for a few hours now, heart sx needed and kidney sx needed. No CHEMISTRY PROFESSOR meds, pt is not in distress at triage, O2 is 100% RA. A&Ox4. with pt Encounter Details Date Type Department Care Team (Late st Contact Info) Description 11/07/2024 3:27 AM EDT - 11/07/2024 7:08 AM EDT Emergency [facility] Emergency [place] [place] [address] Mona Ndiaye MD [facility] EMERGENCY DEPT [address] [place] [address] Dyspnea, unspecified type (Primary Dx) [...] 3:23 AM EDT Tommy Lugo RN * [place] Suicide Severity Rating Scale (Q shift for [...] Follow-up with your primary care doctor and heat treat operator. documented in this encounter Medications at Time of Discharge acetaminophen 325 mg Oral Tab Take 2 Tablets by mouth every 4 hours as needed for Fever. 12/01/2024 aspirin 81 mg Oral Tablet, Delayed Release [...] or Acute Pain (R52). 12 Tablet 10/27/2024 hydrOXYzine (VISTARIL) 25 mg Oral Capsule Take 1 Capsule by mouth every 8 hours as needed for Anxiety. 30 Capsule 12/08/2024 11:27 AM EDT 12/08/2024 lansoprazole (PREVACID) 30 mg Oral Capsule, Delayed [...] 8 hours as needed for Nausea. 09/26/2024 tolterodine (DETROL LA) 4 mg Oral Capsule, Sust. Release 24 hr Take 1 Capsule by mouth daily. 30 Capsule 12/08/2024 11:27 AM EDT 12/09/2024 cefUROXime (CEFTIN) 500 mg Oral Tablet Take 1 Tablet by mouth every 12 hours for 5 doses. 5 Tablet 12/08/2024 11:27 AM EDT 12/08/2024 traMADoL (ULTRAM) 50 mg Oral Tablet Take 1 Tablet by mouth every 6 hours as needed for Pain for up to 10 days. 20 Tablet 12/08/2024 11:27 AM EDT 12/08/2024 5 vancomycin (VANCOCIN) 125 mg Oral Capsule Take 1 Capsule by mouth 4 times daily for 34 doses. 34 Capsule 12/08/2024 11:27 AM EDT 12/08/2024 5 documented as of this encounter Discharge Disposition Disposition Code Departure Means Destination Comment s Home or Self Snf documented in this encounter ED Notes * [...] sx needed and kidney sx needed. No CHEMISTRY PROFESSOR meds, pt is not in distress at [...] disease) Heartburn Hyperlipidemia Hypertension Kidney mass left [place] (myocardial infarction) (HCC) 09/17/2024 Motion sickness Social [...] CYSTOSCOPY 10/27/2024 Surgeon: Patricia Ellison MD; Location: [facility] MAIN OR; Service: Urology Review of Systems Review [...] 72.7 Imm Gran% 0.7 Lymph Percent 16.9 [place] Percent 7.8 Eos Percent 1.4 Baso Percent 0.5 Neut # 9.5 (*) IMMGRAN# 0.1 Lymph # 2.2 Garvin # 1.0 (*) Eos# 0.2 Baso # 0.1 COMPREHENSIVE METABOLIC PANEL - Abnormal Sodium 136 Potassium 4.5 Chloride 104 Total CO2 21 (*) Anion Gap 11 Calcium 9.5 Glucose Lvl 104 (*) BUN 18 Creatinine 1.24 Albumin 4.4 Total Protein 7.1 Bili Total 0.3 ALT 20 AST 20 Alk Phos 127 eGFR (CKD-EPIcr 2020) 71 TROPONIN-T HIGH SENSITIVITY BASELINE W/ REFLEX - Normal ik-uUynswvig-Y 6 Narrative: Ingestion of josé miguel doses [...] 10). CARLOS ENRIQUE Barger, et al. Ashley Modeling Instructor Med. 2017;166(5):361-363 ANAID Contreras, et al. Ashley Modeling Instructor Med. 2015;(163):701-711. Matt Johnson, et al. BERTIN. 2014;(11):8044-4561. TROPONIN-T HIGH SENSITIVITY 2HR XR CHEST PA AND LATERAL Final Result No acute finding. - Note: Radiology results need to be interpreted within a comprehensive clinical context. If you have questions about the radiology report, please contact the office of the ordering clinician. EK EKG 12 LEAD ED Interpretation Twelve-lead EKG interpreted by me: Sinus rhythm rate 69, [place] 151, QRS 94, QTc 408. No acute [...] Description 01/23/2025 9:00 AM EDT Office Visit [facility] Surgeons [place] [address] [place] [address] [address] [place] [address] Logan Kenny MD [address] [place] [address] [place] [address] documented as of this encounter Procedures [...] contactthe office of the ordering clinician. us Mona Ndiaye MD IMG DIAGNOSTIC IMAGING ORDERAB LES Final Result * D-DIMER (11/07/2024 3:52 AM EDT) D-Dimer 419 <=500 ng/mL FEU 11/07/2024 4:26 AM EDT [facility] Comment:This is an automated latex enhanced [...] AM EDT 11/07/2024 3:54 AM EDT Narrative [facility] - 11/07/2024 4:26 AM EDT For patients between the ages of 50 - 75, an age-adjusted D-Dimer cut-off in combination with non-high clinical probability may be considered for the exclusion of venous thromboembolism (calculation = age x 10). CARLOS ENRIQUE Barger, et al. Ashley Modeling Instructor Med. 2017;166(5):361-363 ANAID Contreras, et al. Ashley Modeling Instructor Med. 2015;(163):701-711. Matt Johnson, et al. BERTIN. 2014;(11):4628-8709. us Mona Ndiaye MD HEMATOLOGY ORDERABLES Final Re sult Performing Organization Address [facility] de Phone Number [facility] [address] [place] [address] * NT PROBNP (11/07/2024 3:52 AM EDT) Pathologist [facility] NT Pro-BNP 53 <=138 pg/mL 11/07/2024 4:13 AM EDT [facility] Blood VENOUS BLOOD / Unknown Venipuncture / Unknown 11/07/2024 3:52 AM EDT 11/07/2024 3:55 AM EDT [facility]ative [facility] - 11/07/2024 4:13 AM EDT An [...] ORDERABLES Final Res ult Performing Organization Address [facility] de Phone Number [facility] [address] [place] [address] * TROPONIN-T HIGH SENSITIVITY BASELINE W/ REFLEX (11/07/2024 3:52 AM EDT) [facility] hn-lWqfyzysf-A 6 <22 ng/L 11/07/2024 4:13 AM EDT [facility] Blood VENOUS BLOOD / Unknown Venipuncture / Unknown 11/07/2024 3:52 AM EDT 11/07/2024 3:55 AM EDT Narrative [facility] - 11/07/2024 4:13 AM EDT Ingestion of josé miguel doses of biotin (>5 mg/day) taken within 8 hours of drawing blood sample can interfere with this immunoassay test. us Mona Ndiaye MD CHEMISTRY ORDERABLES Final Res ult [facility] [address] [place] [address] * (ABNORMAL) COMPREHENSIVE METABOLIC PANEL (11/07/2024 3:52 AM EDT) [facility] Sodium 136 136 - 145 mmol/L 11/07/2024 4:13 AM EDT [facility] Potassium 4.5 3.5 - 5.0 mmol/L 11/07/2024 4:13 AM EDT [facility] Chloride 104 98 - 107 mmol/L 11/07/2024 4:13 AM EDT [facility] Total CO2 21(L) 22 - 29 mmol/L 11/07/2024 4:13 AM EDT [facility] Anion Gap 11 7 - 16 mmol/L 11/07/2024 4:13 AM EDT [facility] Calcium 9.5 8.6 - 10.4 mg/dL 11/07/2024 4:13 AM EDT [facility] Glucose Lvl 104(H) 70 - 99 mg/dL 11/07/2024 4:13 AM EDT [facility] BUN 18 6 - 20 mg/dL 11/07/2024 4:13 AM EDT [facility] Creatinine 1.24 0.67 - 1.30 mg/dL 11/07/2024 4:13 AM EDT [facility] Albumin 4.4 3.5 - 5.2 gm/dL 11/07/2024 4:13 AM EDT [facility] Total Protein 7.1 6.4 - 8.3 gm/dL 11/07/2024 4:13 AM EDT [facility] Bili Total 0.3 0.2 - 1.4 mg/dL 11/07/2024 4:13 AM EDT [facility] ALT 20 <=41 U/L 11/07/2024 4:13 AM EDT [facility] AST 20 <=40 U/L 11/07/2024 4:13 AM EDT [facility] Alk Phos 127 40 - 129 U/L 11/07/2024 4:13 AM EDT [facility] eGFR (CKD-EPIcr 2020) 71 >=60 mL/min/1.7 3 m2 11/07/2024 4:13 AM EDT [facility] Comment:Estimated GFR was ca lculated using the CKD-EPIcr (2020) equation refit without race. The equation is recommended by the National Kidney Foundation - [place] [employer] of Nephrology Task Force. Blood VENOUS BLOOD / Unknown Venipuncture / Unknown 11/07/2024 3:52 AM EDT 11/07/2024 3:55 AM EDT us Mona Ndiaye MD CHEMISTRY ORDERABLES Final Res ult [address] [address] * (ABNORMAL) CBC WITH DIFF (11/07/2024 3:52 AM EDT) WBC 13.1(H) 3.7 - 10.3 x10(3)/mcL 11/07/2024 3:57 AM EDT [facility] RBC 4.70 4.60 - 6.10 x10(6)/mcL 11/07/2024 3:57 AM EDT [facility] Hgb 14.2 13.7 - 17.5 g/dL 11/07/2024 3:57 AM EDT [facility] Hct 41.9 40.0 - 51.0 % 11/07/2024 3:57 AM EDT [facility] MCV 89.1 80.0 - 100.0 fL 11/07/2024 3:57 AM EDT [facility] MCH 30.2 26.0 - 34.0 pg 11/07/2024 3:57 AM EDT [facility] MCHC 33.9 30.7 - 35.5 g/dL 11/07/2024 3:57 AM EDT [facility] RDW 13.3 <=14.9 % 11/07/2024 3:57 AM EDT [facility] Platelet 281 155 - 369 x10(3)/mcL 11/07/2024 3:57 AM EDT [facility] MPV 9.1 8.8 - 12.5 fL 11/07/2024 3:57 AM EDT [facility] Neut Percent 72.7 % 11/07/2024 3:57 AM EDT [facility] Comment:Neutrophils equals s egs plus bands Imm Gran% 0.7 % 11/07/2024 3:57 AM EDT [facility] Comment:Automated count of m etamyelocytes, myelocytes and promyelocytes. Lymph Percent 16.9 % 11/07/2024 3:57 AM EDT [facility] Garvin Percent 7.8 % 11/07/2024 3:57 AM EDT [facility] Eos Percent 1.4 % 11/07/2024 3:57 AM EDT [facility] Baso Percent 0.5 % 11/07/2024 3:57 AM EDT [facility] Neut # 9.5(H) 1.6 - 6.1 x10(3)/mcL 11/07/2024 3:57 AM EDT [facility] Comment:Neutrophils equals s egs plus bands IMMGRAN# 0.1 0.0 - 0.1 x10(3)/mcL 11/07/2024 3:57 AM EDT [facility] Comment:Automated count of m etamyelocytes, myelocytes and promyelocytes. An absolute IG <0.1 is reported as 0.0. Lymph # 2.2 1.2 - 3.9 x10(3)/[facility] 11/07/2024 3:57 AM EDT [facility] Garvin # 1.0(H) 0.3 - 0.9 x10(3)/[facility] 11/07/2024 3:57 AM EDT [facility] Eos# 0.2 0.0 - 0.5 x10(3)/[facility] 11/07/2024 3:57 AM EDT [facility] Baso # 0.1 0.0 - 0.1 x10(3)/[facility] 11/07/2024 3:57 AM EDT [facility] Blood VENOUS BLOOD / Unknown Venipuncture / Unknown 11/07/2024 3:52 AM EDT 11/07/2024 3:55 AM EDT us Mona Ndiaye MD HEMATOLOGY ORDERABLES Final Re sult Performing Organization Address City/State/[facility] Co de Phone Number [facility] [address] [place] [address] * EK EKG 12 LEAD (11/07/2024 3:33 AM EDT) Anatomical Region Laterality Modality Electrocardiogra phy 11/07/2024 3:37 AM EDT Impressions 11/07/2024 7:56 AM EDT [facility] Test Date: 2024-11-07 Pat Name: ALEX HOFFMAN Department: DEPID Room: [facility] Gender: Male Block Cleaner: Lanie : 1975 Requested By: MONA Chavez Order Number: [id number] [place] MD: Gala Huddleston DO Measurements Intervals [place] Rate: 69 P: 13 [place]: 151 QRS: 33 QRSD: 94 T: 54 QT: 388 QTc: 418 Interpretive Statements SINUS RHYTHM Electronically Signed On 11-07-2024 07:56:36 EDT by Gala Huddleston DO Narrative Procedure Note Gala Huddleston DO - 11/07/2024 IMPRESSION [facility] Nicole Corby Test Date: 2024-11-07 Pat Name: ALEX HOFFMAN Department: DEPID Room: AC08 Gender: Male Block Cleaner: Lanie : 1975 Requested By: MONA Chavez Order Number: [id number] [place] MD: Gala Huddleston DO Measurements Intervals [place] Rate: 69 P: 13 AZ: 151 QRS: 33 QRSD: 94 T: 54 QT: 388 QTc: 418 Interpretive Statements SINUS RHYTHM Electronically Signed On 11-07-2024 07:56:36 EDT by Gala Huddleston DO us Mona Ndiaye MD IMG ECG ORDERABLES Final Resul t documented in this encounter Visit Diagnoses Diagnosis Dyspnea, unspecified type- Primary documented in this encounter Administered Medications Inactive [...] IV 1 11/07/2024 documented in this encounter Care Teams Friend Of The Court Relationship Specialty Start Date End Date Reyna Perez APRN [address] [place] [address] [address] [facility] [address] PCP - General Nurse Practitioner 10/27/24 documented as of this encounter
--- OUTSIDE RECORDS SUMMARY | 2024-11-23 12:38 | XMS_ITS | Encounter Summary ---
Author Organization [place] [address] Care Team Providers Care Caster Operator Name Role Phone Reyna Perez DEMETRIUS Primary Care Provider [phone] Encounter Details Date Type Department Care Team (Latest Contact Info) Description 11/23/2024 12:38 PM EDT - 11/23/2024 11:59 PM EDT Hospital Encounter EDG PRE-ADMIT TESTING [facility] [place] [address] Pre-op testing (Primary Dx); Ureteral mass [...] of understanding from the receiving PACU/ICU steam drier operator 1648 An Stop Meds * Agents No [...] 12/01/24; 1552; 1; Midline, Inferior; Abdomen; 10 Cape Verdean 12/01/24 1552 by Sonja Solis RN 12/08/24 0943 by Mragie Diaz LPN documented in this encounter Social History Tobacco Use Types Packs/Day Years Used Date Smoking Tobacco: Every Day Cigarettes 1 37.2 Started: 05/10/1989 Smokeless Tobacco: Never Tobacco Cessation:Ready [...] Ifnot received, call your surgeon's office. Location: [place] Medications on the Day of Surgery Take [...] No alcohol 24 hours prior to surgery. Manager Physical It is important to have a Manager Physical, someone who is 18 years or older, [...] concern, please reach out to our department [phone]. Hygiene [place] your teeth and gargle the morning of surgery. Shower the morning of surgery or the night before. Do not wear makeup (including eye makeup) lotion, powder, deodorant, perfume, or cologne. Do not shave the operative extremity or near the operative area. Remove nail malian prior to surgery. This includes artificial nails and gel nail malian. Personal Items Wear clean, simple, loose-fitting clothing (no jeans) and sturdy shoes (no flip flops, slides or crocs) to the hospital. Do not bring unnecessary valuables with you. It is policy that [facility] does not assume responsibility for lost, stolen [...] your Living Will and/or Durable Power of [place]ch [place] for Healthcare. Bring Incentive spirometer on the day of surgery. Notify the Surgeon Notify your surgeon if you develop any illness (fever, cold, cough, sore throat, nausea, vomiting, skin rashes etc.) between now and surgery time Notify your surgeon and Pre-admission testing ([phone]) if you have any changes in your healthconditions or if any new medications are ordered between now and surgery.. Questions or Concerns? If you have any questions or concerns, feel free to call the Pre-Admission testing department at [phone]. We want to make sure you feel safe and have an excellent experience while you are here. Do not reply to this message through Perpetu as it may not be answered promptly. Same Day Surgery Unit - [place] at [phone]; [place]: Park at Entrance 1A Main Entrance, NOT Outpatient Parking. Walk in atrium and go to help desk associate. Look for sign at information desk that states Surgery Check In . [address] [facility], [place] [address]. DOORS OPEN AT 5: 30 AM WED-WED AND 6:00 AM ON WEDNESDAY AND 8:00 AM ON WEDNESDAY * Attachments The following attachments cannot be sent through Care Everywhere. * How to use an incentive spirometer (Divehi) documented in this encounter Medications at Time [...] Description 01/23/2025 9:00 AM EDT Office Visit [facility] Card[facility] Surgeons [place] [address] [place] [address] Drive [address] [place] [address] Logan Kenny MD [address] [place] [address] [place] [address] documented as of this encounter Procedures [...] No Previous History 11/23/2024 2:31 PM EDT [facility] Blood VENOUS BLOOD / Unknown Venipuncture / Unknown 11/23/2024 2:10 PM EDT 11/23/2024 2:17 PM EDT us Susan Grossman APRN BLOOD BANK ORDERABLES Fi nal Result [facility] 1 [place] [address] * SURGERY DATE (11/23/2024 2:10 PM EDT) Surgery Date (1) Complete 11/23/2024 2:31 PM EDT [facility] Blood VENOUS BLOOD / Unknown Venipuncture / Unknown 11/23/2024 2:10 PM EDT 11/23/2024 2:17 PM EDT us Susan Grossman SHEAR GRINDER OPERATOR HELPER BLOOD BANK ORDERABLES Fi nal Result Performing Organization Address [facility] Co de Phone Number [facility] [address] [place], [place] [id number] * ANTIBODY SCREEN IGG (11/23/2024 2:10 PM EDT) Pathologist [facility] ABSC IgG Int Negative 11/23/2024 3:13 PM EDT [facility] Blood VENOUS BLOOD / Unknown Venipuncture / Unknown 11/23/2024 2:10 PM EDT 11/23/2024 2:17 PM EDT us Susan Grossman APRN BLOOD BANK ORDERABLES Fi nal Result Performing Organization Address [facility] Co de Phone Number [facility] [place] [address] * ABORH (11/23/2024 2:10 PM EDT) [facility] ABORH Int B POS 11/23/2024 3:1 3 PM EDT [facility] Blood VENOUS BLOOD / Unknown Venipuncture / Unknown 11/23/2024 2:10 PM EDT 11/23/2024 2:17 PM EDT us Susan Grossman SHEAR GRINDER OPERATOR HELPER BLOOD BANK ORDERABLES Fi nal Result Performing Organization Address [facility] Co de Phone Number [facility] [address] [place] [address] * (ABNORMAL) BASIC METABOLIC PANEL (11/23/2024 2:10 PM EDT) [facility] Sodium 137 136 - 145 mmol/L 11/23/2024 3:02 PM EDT [facility] Potassium 3.7 3.5 - 5.0 mmol/L 11/23/2024 3:02 PM EDT [facility] Chloride 103 98 - 107 mmol/L 11/23/2024 3:02 PM EDT [facility] Total CO2 21(L) 22 - 29 mmol/L 11/23/2024 3:02 PM EDT [facility] Anion Gap 13 7 - 16 mmol/L 11/23/2024 3:02 PM EDT [facility] Calcium 9.4 8.6 - 10.4 mg/dL 11/23/2024 3:02 PM EDT [facility] Glucose Lvl 88 70 - 99 mg/dL 11/23/2024 3:02 PM EDT [facility] BUN 13 6 - 20 mg/dL 11/23/2024 3:02 PM EDT [facility] Creatinine 1.01 0.67 - 1.30 mg/dL 11/23/2024 3:02 PM EDT [facility] eGFR (CKD-EPIcr 2020) 91 >=60 mL/min/1.7 3 m2 11/23/2024 3:02 PM EDT [facility] Comment:Estimated GFR was ca lculated using the CKD-EPIcr (2020) equation refit without race. The equation is recommended by the National Kidney Foundation - [place] Society of Nephrology Task Force. Blood VENOUS BLOOD / Unknown Venipuncture / Unknown 11/23/2024 2:10 PM EDT 11/23/2024 2:20 PM EDT us Susan Grossman APRN CHEMISTRY ORDERABLES Fin al Result [facility] [address] , [address] [place] [phone] * CBC WITH DIFF (11/23/2024 2:10 PM EDT) Pathologist [facility] WBC 8.2 3.7 - 10.3 x10(3)/mcL 11/23/2024 2:35 PM EDT [facility] RBC 4.87 4.60 - 6.10 x10(6)/mcL 11/23/2024 2:35 PM EDT [facility] Hgb 14.5 13.7 - 17.5 g/dL 11/23/2024 2:35 PM EDT [facility] Hct 42.0 40.0 - 51.0 % 11/23/2024 2:35 PM EDT [facility] MCV 86.2 80.0 - 100.0 fL 11/23/2024 2:35 PM EDT [facility] MCH 29.8 26.0 - 34.0 pg 11/23/2024 2:35 PM EDT [facility] MCHC 34.5 30.7 - 35.5 g/dL 11/23/2024 2:35 PM EDT [facility] RDW 13.5 <=14.9 % 11/23/2024 2:35 PM EDT [facility] Platelet 278 155 - 369 x10(3)/mcL 11/23/2024 2:35 PM EDT [facility] MPV 9.1 8.8 - 12.5 fL 11/23/2024 2:35 PM EDT [facility] Neut Percent 59.7 % 11/23/2024 2:35 PM EDT [facility] Comment:Neutrophils equals s egs plus bands Imm Gran% 0.5 % 11/23/2024 2:35 PM EDT [facility] Comment:Automated count of m etamyelocytes, myelocytes and promyelocytes. Lymph Percent 28.0 % 11/23/2024 2:35 PM EDT [facility] [place] Percent 9.1 % 11/23/2024 2:35 PM EDT [facility] Eos Percent 2.1 % 11/23/2024 2:35 PM EDT [facility] Baso Percent 0.6 % 11/23/2024 2:35 PM EDT [facility] Neut # 4.9 1.6 - 6.1 x10(3)/mcL 11/23/2024 2:35 PM EDT [facility] Comment:Neutrophils equals s egs plus bands IMMGRAN# 0.0 0.0 - 0.1 x10(3)/mcL 11/23/2024 2:35 PM EDT [facility] Comment:Automated count of m etamyelocytes, myelocytes and promyelocytes. An absolute IG <0.1 is reported as 0.0. Lymph # 2.3 1.2 - 3.9 x10(3)/[facility] 11/23/2024 2:35 PM EDT [facility] [place] # 0.8 0.3 - 0.9 x10(3)/[facility] 11/23/2024 2:35 PM EDT [facility] Eos# 0.2 0.0 - 0.5 x10(3)/[facility] 11/23/2024 2:35 PM EDT [facility] Baso # 0.1 0.0 - 0.1 x10(3)/[facility] 11/23/2024 2:35 PM EDT [facility] Blood VENOUS BLOOD / Unknown Venipuncture / Unknown 11/23/2024 2:10 PM EDT 11/23/2024 2:20 PM EDT us Susan Grossman SHEAR GRINDER OPERATOR HELPER HEMATOLOGY ORDERABLES Fi nal Result [facility], [address] , [place] [address] documented in this encounter Visit Diagnoses Diagnosis Pre-op testing- Primary Preoperative examination, unspecified Ureteral mass Unspecified disorder of kidney and ureter documented in this encounter Care Teams Caster Operator Relationship Specialty Start Date End Date Reyna Perez APRN [address] [facility] [address] [place] [address] PCP - General Nurse Practitioner 10/27/24 documented as of this encounter
--- OUTSIDE RECORDS SUMMARY | 2024-12-01 08:38 | XMS_ITS | Encounter Summary ---
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] Procedures IN LAPAROSCOPY RADICAL NEPHRECTOMY IN CYSTOURETHROSCOPY W/DEST &/RMVL MED BLADDER EMERY IN LAPAROSCOPY NEPHRECTOMY W/TOTAL URETERECTOMY LEFT DAVINCI ROBOTIC NEPHROURETERECTOMY, CYSTOSCOPY, TRANSURETHRAL RESECTION OF THE BLADDER TUMOR Referral ID Status Reason Start Date Expiration Date Visits Re quested Visits Authorized [id number] 1 1 Encounter Details Date Type Department Care Team (Latest Contact Info) Description 12/01/2024 8:38 AM EDT - 12/08/2024 11:29 AM EDT Hospital Encounter EDG 7[facility] [place] [id number] Sadi Haney MD [address] [place] [address] Preop testing (Primary Dx); Ureteral mass Discharge Disposition: Discharge/Readmit Social History Tobacco Use Types Packs/Day Years Used Date Smoking Tobacco: Every Day Cigarettes 1 37.2 Started: 05/10/1989 Smokeless Tobacco: Never Alcohol Use Standard Drinks/Week Comments Not Currently 0 (1 standard drink = 0.6 oz pur e alcohol) [facility] Utilities Answer Date Recorded In the past 12 months has [employer] electric, gas, oil, or water company threatened to shut off services in your home? No 12/04/2024 Overall Financial Resource Strain (CARDIA) Answe r Date Recorded How hard is it for you to pa y for the very basics like food, housing, medical care, and heating? Somewhat hard 12/04/2024 PHQ-2 Answer Date Recorded PHQ-2 Total Score 0 12/04/2024 [facility] - Occupational Stress [...] have money to get more. Never true [facility] IP Transportation Answer D ate Recorded In [...] 8:11 PM EDT Viri Segura RN * [place] Suicide Severity Rating Scale (Q shift for [...] Physician Discharge Summary Patient ID: Alex Hoffman [id number] 49 y.o. 1975 Admit date: 12/01/2024 Discharge [...] Your Medications These medications were sent to [facility] [address] [place] [address] Hours: Wednesday-Wednesday 8:00am - 6:30pm traMADoL 50 mg Tab You can get these medications from any pharmacy You don't need a prescription for these medications acetaminophen 325 mg Tab Sadi Haney MD [address] [facility] [address] Follow up in 2 week(s) follow up with Logan Montana MD [address] [place] [address] Follow up in 2 week(s) To discuss re-intation of antiplatelet therapy and further CTS w/u Reyna Perez APRN [address] [facility] [address] [facility] [address] Follow up in 1 week(s) Hospital [...] UNABLE TO REACH YOUR UROLOGIST OR UROLOGIST AUDITING MANAGER, YOU SHOULD GO TO A NEARBY EMERGENCY [...] 24 hours a day, please call the [facility] [place] * Attachments The following attachments cannot be sent through Care Everywhere. * How to use an incentive spirometer (Mosotho) * Nephrectomy ??? Discharge instructions (Mosotho) * How to take anticoagulants safely (Mosotho) * Vancomycin (Mosotho) * Cefuroxime (Mosotho) documented in this encounter Medications at Time [...] Tablet 12/08/2024 11:27 AM EDT 12/08/2024 5 traMADoL (ULTRAM) 50 mg Oral Tablet [...] Refills Last Filled Start Date End Date hydrOXYzine (VISTARIL) 25 mg Oral Capsule Take 1 Capsule by mouth every 8 hours as needed for Anxiety. 30 Capsule 12/08/2024 11:27 AM EDT 12/08/2024 tolterodine (DETROL LA) 4 mg Oral Capsule, Sust. Release 24 hr Take 1 Capsule by mouth daily. 30 Capsule 12/08/2024 11:27 AM EDT 12/09/2024 acetaminophen 325 mg Oral Tab Take 2 Tablets by mouth every 4 hours as needed for Fever. 12/01/2024 vancomycin (VANCOCIN) 125 mg Oral Capsule Take 1 Capsule by mouth 4 times daily for 34 doses. 34 Capsule 12/08/2024 11:27 AM EDT 12/08/2024 5 cefUROXime (CEFTIN) 500 mg Oral Tablet Take 1 Tablet by mouth every 12 hours for 5 doses. 5 Tablet 12/08/2024 11:27 AM EDT 12/08/2024 5 traMADoL (ULTRAM) 50 mg Oral Tablet [...] AM EDT Discharge Medication Delivery Service DMD gem technician has delivered the following medications for Alex Hoffman: Rx#[id number]:TRAMADOL 50 MG TABLET-50 mg EVERY 6 HOURS PRN Rx#[id number]:TOLTERODINE ER 4 MG CAPSULE,EXTENDED RELEASE 24 HR-4 mg DAILY Rx#[id number]:CEFUROXIME AXETIL 500 MG TABLET-500 mg EVERY 12 HOURS SCHEDULED Rx#[id number]:HYDROXYZINE PAMOATE 25 MG CAPSULE-25 mg EVERY 8 HOURS PRN Rx#[id number]:VANCOMYCIN 125 MG CAPSULE-125 mg 4 TIMES DAILY Date/Time of Delivery: 12/08/2024 11:35 AM Delivered to: Room 7308 Placed med bag on tray table. Please contact DMD gem technician with any questions. Thanks! 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 [...] from the original note were not included. [facility] Urology Urology Progress Note Hospital Day: 8 [...] PM EDTAssociated Problem(s): Coronary artery disease involving passamaquoddy coronary artery of passamaquoddy heart without angina pectoris - CABG planned [...] urology Elevated troponin Coronary artery disease involving pass[place]quoddy coronary artery of passamaquoddy heart without angina pectoris - CABG planned [...] left ureter (HCC) Coronary artery disease involving passamaquoddy coronary artery of passamaquoddy heart without angina pectoris Subjective: at bedside. [...] PT Subjective Note Type Discharge Patient Room/Unit 4387 Discharge Information Discharge complete, please see discharge summary report for further information including most recently documented activity level Clinical Course pt obsesrved to be amb numerous laps in Count includes the [facility]. therapy will sign off at thistimes Plan PT Frequency Complete Cosigned by Jennifer Santamaria PT at 12/07/2024 11:18 AM EDT Associated attestation - Jennifer Santamaria, PT - 12/07/2024 11:18 AM EDT I agree with the INTERNATIONAL PROJECT MANAGER documentation. * RonaPeaceJULIENN - 12/07/2024 6:58 AM EDT Images from the original note were not included. [facility] Urology Urology Progress Note Hospital Day: 7 [...] PM EDTAssociated Problem(s): Coronary artery disease involving passamaquoddy coronary artery of passamaquoddy heart without angina pectoris - CABG planned [...] carcinoma Elevated troponin Coronary artery disease involving pass[place]quoddy coronary artery of passamaquoddy heart without angina pectoris - CABG planned [...] left ureter (HCC) Coronary artery disease involving passamaquoddy coronary artery of passamaquoddy heart without angina pectoris Subjective: Diarrhea improving. 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 - LHC showed ostial LAD 70% stenosis, circumflex (nondominant) with 60-70% stenosis, with 30-40% stenosis of first OM. Pt reports he had LHC and PCI on 09/27/24 (VIC x 1 to RCA) at [facility]. Pt was scheduled to have [...] Further input from Dr. Packer. 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 [facility] Urology Urology Progress Note Hospital Day: 6 [...] from the original note were not included. [facility] Urology Urology Progress Note Hospital Day: 5 [...] PM EDTAssociated Problem(s): Coronary artery disease involving passamaquoddy coronary artery of passamaquoddy heart without angina pectoris - CABG planned [...] pending Elevated troponin Coronary artery disease involving pass[place]quoddy coronary artery of passamaquoddy heart without angina pectoris - CABG planned [...] left ureter (HCC) Coronary artery disease involving pass[place]quoddy coronary artery of pass[place]quoddy heart without angina pectoris Subjective: at bedside. [...] to restart- no doses yet 12/04 - INTERNATIONAL PROJECT MANAGER Lasix 40gm QD, losartan 50mg QD, Toprol 25mg QD (on hold) Anemia - Hgb 10.2>7.5>8.1>7.9>7.3>8.2>8.9>8.4 - s/p 2 U PRBC's 12/03 and 1 U PRBC 12/04 CAD - EKG SR no acute ischemia appreciated - Trops > - Denies chest pain/ diaphoresis/ nausea - INTERNATIONAL PROJECT MANAGER Effient, ASA, Statin, Toprol - Echo 10/2024: EF 60-65%. - LHC showed ostial LAD 70% stenosis, circumflex (nondominant) with 60-70% stenosis, with 30-40% stenosis of first OM. Pt reports he had LHC and PCI on 09/27/24 (VIC x 1 to RCA) at [facility]. Pt was scheduled to have [...] - Will discuss bASA plans with attending offal worker - on hold currently last dose 12/04. [...] bedside. PCI in September. Working towards CABG. INTERNATIONAL PROJECT MANAGER Effient and bASA. Currently holding both. Recommend resumption bASA as soon as cleared by Urology. BP controlled on current regimen. Hgb trend better today. Will follow tomorrow. * Peace Rea APRN - 12/05/2024 8:01 AM EDT Images from the original note were not included. [facility] Urology Progress Note Hospital Day: [...] from the original note were not included. [facility] Urology Urology Progress Note Hospital Day: 4 [...] Pt admitted with Ureteral Mass, pt has [place] [employer] insurance. Note pt is alert and oriented x4. CC met with pt and Tessy at bedside and introduced self and role. Pt states he lives in a 1 story home with 2 steps to enter, ptstates he lives with his Tessy. PCP is Reyna Perez. Pt states he uses [facility] in [place]. Pt states he has concerns with affordability [...] Status Alert and oriented Does patient need embroidery patternmaker? No Decision Maker Patient Activities of Daily [...] or connection with God Interventions with Patient Pentecostalism Interventions Prayer with patient or family Outcomes Expressed Outcomes Appreciative of visit Care Plan Plan for Follow-Up Enzyme Chemist(s) will continue to follow throughout admission Carolyn Mitlon * Rubens Packer MD - 12/04/2024 9:15 [...] to restart- no doses yet 12/04 - INTERNATIONAL PROJECT MANAGER Lasix 40gm QD, losartan 50mg QD, Toprol 25mg QD (on hold) Anemia - Hgb 10.2>7.5>8.1>7.9>7.3 - s/p 2 U PRBC's 12/03 and 1 U PRBC 12/04 CAD - EKG SR no acute ischemia appreciated - Trops 27> 26 - Denies chest pain/ diaphoresis/ nausea - INTERNATIONAL PROJECT MANAGER Effient, ASA, Statin, Toprol - Echo 10/2024: EF 60-65%. - LHC showed ostial LAD 70% stenosis, circumflex (nondominant) with 60-70% stenosis, with 30-40% stenosis of first OM. Pt reports he had LHC and PCI on 09/27/24 (VIC x 1 to RCA) at [facility]. 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 Plan [...] with bloody output. Coronary artery disease involving passamaquoddy coronary artery of passamaquoddy heart without angina pectoris Cardiology consulted. Plan [...] from the original note were not included. [facility] Urology Urology Progress Note Hospital Day: 4 [...] hb was 8.2 Stopped bASA after d/w offal worker Plan: Hold bASA DAMIEN off suction Check [...] from the original note were not included. [facility] Urology Urology Progress Note Hospital Day: 3 [...] no acute ischemia appreciated -Trops -ASA/ Statin captain assistant -Denies chest pain/ diaphoresis/ nausea Hypotension -Improving [...] BP Further input from Dr Lizzie Hinkle, MANUFACTURING TECHNOLOGY PROFESSOR, Heart and Vascular 12/03/2024 Disposition Perspective - [...] any restarting metoprolol today. 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 Plan per urology, follow path - await urology plans for today Elevated troponin Coronary artery disease involving passamaquoddy coronary artery of passamaquoddy heart without angina pectoris - CABG planned [...] from the original note were not included. [facility] U[facility] Urology Progress Note Hospital Day: 3 [...] from the original note were not included. [facility] U[facility] Urology Progress Note Hospital Day: 2 [...] and relaxation without help. Message sent to micro paleontologist and 1x dose valium ordered. Pt noted [...] PM EDTAssociated Problem(s): Coronary artery disease involving passamaquoddy coronary artery of passamaquoddy heart without angina pectoris - diffuse severe [...] from the original note were not included. [facility] U[facility] Urology Progress Note Hospital Day: 2 [...] Rogers APRN - 12/01/2024 8:50 AM EDT [facility] History and Physical Name: Alex Hoffman ADDRESS: [address] [place] [address] [place] [address] : 1975 AGE: 49 y.o. ASSESSMENT: Ureteral [...] disease) Heartburn Hyperlipidemia Hypertension Kidney mass left MA (myocardial infarction) (HCC) 09/17/2024 Motion sickness Past [...] left radical nephroureterectomy. SURGEON Sadi Haney MD CONCRETE MIXER TRUCK DRIVER See OR record ANESTHESIS General. ESTIMATED BLOOD LOSS 100 mL. DRAINS 10 mm DAMIEN. TUBES 22 Grenadian Bradford catheter. COMPLICATIONS None. POSTOPERATIVE CONDITION Good. [...] in the midclavicular line. A 12 mm customer relations assistant port was placed above the umbilicus. A 5 mm port for the customer relations assistant was placed below the xiphoid process. [...] Hoffman 1 PCP: Reyna Perez APRN Primary [place] Nurse: None on file I would like to [...] disease) Heartburn Hyperlipidemia Hypertension Kidney mass left MA (myocardial infarction) (HCC) 09/17/2024 Motion sickness INTERNATIONAL PROJECT MANAGER Medications: Prior to Admission medications Medication Sig [...] CYSTOSCOPY 10/27/2024 Surgeon: Patricia Ellison MD; Location: [facility] MAIN OR; Service: Urology Allergy No Known [...] most recent cardiovascular imaging studies available in [facility] EMR were reviewed at time of consultation [...] no acute ischemia appreciated -Trops -ASA/ Statin captain assistant -Denies chest pain/ diaphoresis/ nausea Hypotension -Improving [...] 4. Pneumonia. Per primary. Bear Samuel MD, [facility] 12/02/2024 6:11 PM * Meng Chen MD - 12/02/2024 9:19 AM EDTAssociated Order(s): IP CONSULT TO HOSPITALIST Images from the original note were not included. History and Physical Date of Admission: 12/01/2024 Admitting Physician: Meng Chen MD Primary Care Physician: Ryena Perez APRN No chief complaint on file. 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 Plan per urology, follow path Coronary artery disease of passamaquoddy artery of passamaquoddy heart with stable angina pectoris - diffuse [...] SURGERY: 12/01/2024 WITH Sadi Khoury MD FOR: IN LAPAROSCOPY NEPHRECTOMY W/TOTAL URETERECTOMY [90169] (LEFT DAVINCI ROBOTIC NEPHROURETERECTOMY, CYSTOSCOPY, TRANSURETHRAL RESECTION OF THE BLADDER TUMOR) IN LAPAROSCOPY RADICAL NEPHRECTOMY [11239] IN CYSTOURETHROSCOPY W/DEST &/RMVL MED BLADDER EMERY [16847] THE ANESTHESIA DEPARTMENT IS REQUESTING A CLEARANCE RELATED TO: Recent PCI. Also surgeons is requesting if blood thinner can be held ? Anesthesia type:General PLEASE RESPOND TO THIS ENCOUNTER OR CALL WITH ANY QUESTIONS/CONCERNS PHONE: [phone] [facility] PRE-ADMISSION TESTING DEPARTMENT * Shoshana Rankin RN - 11/23/2024 2:24 PM EDT REPORTS REQUEST ATTENTION:Reyna Perez PATIENT: Alex Hoffman : 1975 This patient is scheduled for surgery on 12/01/2024 with Sadi Khoury MD Anesthesia has requested the most recent results of the following tests: Most recent office visit note and any recent testing COMMENTS:__Thanks! Please fax to Pre-admission testing. PHONE # [phone] ATTENTION: [address] [address] documented in this encounter Miscellaneous Notes * Utilization Review Notes - Gala Powell LPN - 12/08/2024 11:29 AM EDT DISCHARGED HOME ON 12/08/24 FOLLOW UP WITH Sadi Haney MD [address] [facility] [id number] Follow up in 2 week(s) follow up with Logan Montana MD [address] [facility] [address] Follow up in 2 week(s) To discuss re-intation of antiplatelet therapy and further CTS w/u Reyna Perez, MANUFACTURING TECHNOLOGY PROFESSOR [address] [facility] [address] [facility] [address] Follow up in 1 week(s) Hospital follow up, recheck CBC next week with PCP prior to restarting blood thinner * Query Response Document - Juana Shoemaker MD - 12/08/2024 11:29 AM EDT [facility] CDI / HIM Coding Query Documentation PATIENT: ALEX HOFFMAN : 1975 ADMIT DATE: 12/01/2024 8:38 AM DISCH DATE: 12/08/2024 11:29 AM RESPONDING PROVIDER #: [phone] PROVIDER QUERY RESPONSE TEXT: Severe Sepsis POA CDI / HIM Coding QUERY TEXT: Retrospective Query To view the encounter for this patient, click the patient's name highlighted in blue. The purpose of this query is to clarify clinical indicators or documentation noted in the record. Admitted on (date, source) with (diagnoses) (; s/p procedure and date) Treatment included:IV Rocephin Based on the clinical criteria listed, can these clinical indicators be further specified with a diagnosis of: The patient's clinical indicators include: Sepsis documented: 12/01 - consult Sepsis syndrome documented in the PN Infection documented: (Pneumonia The following SIRS criteria are noted within 6 hours of each other: Tachycardia HR > 90/min (persistent): 12/02 @ 0252 HR = 120 and @ 0415 HR = 93 WBC > 12,000 or <4,000 OR >10% Bands: 12/02 @ 0347 WBC = 21.8 Plus, the following severe sepsis criteria are noted within 6 hours of the above criteria: Documented end-organ dysfunction: Lactic Acid > 2mmol/L:12/02 @ 0504 Lactic Acid = 3.5 SBP < 90 OR MAP < 65 OR decrease of > 40 from baseline (persistent): 79/68 - 81/37 -64/37 12/02/24 0806 101 18 91/51 MAP 63 93% RA 12/02/24 0527 81/28 MAP 53 12/02/24 0415 64/37 MAP 46 Organization?s approved guideline: Sepsis is defined as a life-threatening organ dysfunction caused by a dysregulated host response toa suspected or confirmed infection. PLEASE ALSO DOCUMENT DIAGNOSIS IN NOTES AND/ OR D/C SUMMARY? ? This electronic query and response are a permanent part of the medical record. Please do not updatethe Problem List as your response. The Problem List is dynamic and is not a permanent part of this Date of Service.? An unanswered query is considered a non-response.? ? Thank you for your assistance.? (For any questions, please contact Rodriguez Gabriel @ [phone]) Options provided: -- Severe Sepsis POA -- Sepsis/Severe sepsis ruled in but not POA -- Sepsis POA - severe sepsis ruled in but not POA -- Sepsis POA associated with acute sepsis related organ dysfunction POA -- Sepsis POA not associated with acute sepsis related organ dysfunction -- Sepsis POA associated with acute sepsis related organ dysfunction not POA -- Sepsis not POA not associated with acute sepsis related organ dysfunction -- Sepsis associated with acute sepsis related organ dysfunction both not POA -- Clinically unable to determine -- Other - I will add my own diagnosis -- Disagree - Not applicable / Not valid Query created by: Lazara Kline on 12/13/2024 12:13 PM Electronically signed by: Juana Shoemaker MD 12/19/2024 6:26 PM * Utilization Review Notes - Gala Powell, MARINE EQUIPMENT ENGINEER - 12/07/2024 9:54 AM EDT 12/07 TEMP [...] from the original note were not included. 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 - pathology pending Elevated troponin Coronary artery disease involving passamaquoddy coronary artery of passamaquoddy heart without angina pectoris - CABG planned [...] - Will discuss bASA plans with attending offal worker - on hold currently last dose 12/04. [...] PRBCs this AM. Most recent Hgb 8.9 ~[address] with small amount [...] to restart- no doses yet 12/04 - INTERNATIONAL PROJECT MANAGER Lasix 40gm QD, losartan 50mg QD, Toprol 25mg QD (on hold) Anemia - Hgb 10.2>7.5>8.1>7.9>7.3 - s/p 2 U PRBC's 12/03 and 1 U PRBC 12/04 CAD - EKG SR no acute ischemia appreciated - Trops > 26 - Denies chest pain/ diaphoresis/ nausea - INTERNATIONAL PROJECT MANAGER Effient, ASA, Statin, Toprol - Echo 10/2024: EF 60-65%. - LHC showed ostial LAD 70% stenosis, circumflex (nondominant) with 60-70% stenosis, with 30-40% stenosis of first OM. Pt reports he had LHC and PCI on 09/27/24 (VIC x 1 to RCA) at [facility]. Pt was scheduled to have [...] - Will discuss bASA plans with attending offal worker - on hold currently last dose today [...] urology, follow path Coronary artery disease of passamaquoddy artery of pass[place]quoddy heart with stable angina pectoris - diffuse [...] OF TODAY Plan: Reviewed patient with Dr. Correa this [...] Description 01/23/2025 9:00 AM EDT Office Visit [facility] Cardiac Surgeons [address] [place] [id number] Logan Kenny MD [address] [place] [id number] Pending Results Name Type Priority Associated Diagnoses [...] Hoffman 1 PCP: Reyna Perez APRN Primary Hed[place] Nurse: None on file I would like to thank Sadi Haney MD for requesting me to seeAlex Hoffman for cardiac consultation for CAD/ Hypotension [...] disease) Heartburn Hyperlipidemia Hypertension Kidney mass left MA (myocardial infarction) (HCC) 09/17/2024 Motion sickness INTERNATIONAL PROJECT MANAGER Medications: Prior to Admission medications Medication Sig [...] CYSTOSCOPY 10/27/2024 Surgeon: Patricia Ellison MD; Location: [facility] OR; Service: Urology Allergy No Known Allergies Patient Active Problem List Diagnosis ASHD (arteriosclerotic heart disease) 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) BP 118/53 (BP Location: Right arm) Pulse 103 Temp 98 F (36.7 C)(Oral) Resp 18 Ht 5' 8 (1.727 m) Wt 243 lb (110.2 kg) DaH743% BMI 36.95 kg/m I/O 24 hours: Intake/Output Summary (Last 24 hours) at 12/02/2024 1156 Last data filed at 12/02/2024 1154 Gross per 24 hour Intake 7111.22 ml Output 1360 ml Net 5751.22 ml Diagnostic tests The most recent cardiovascular imaging studies available in [facility] EMR werereviewed at time of consultation Exam: [...] no acute ischemia appreciated -Trops -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 Lizzie Hinkle, MANUFACTURING TECHNOLOGY PROFESSOR Heart and Vascular 12/02/2024 Disposition Perspective - [...] 4. Pneumonia. Per primary. Bear Samuel MD, [facility] 12/02/2024 6:11 PM TROPONIN-T HIGH SENSITIVITY 2HR [...] disease) Heartburn Hyperlipidemia Hypertension Kidney mass left MA (myocardial infarction) (HCC) 09/17/2024 Motion sickness Past Surgical History: Procedure Laterality Date CARDIAC CATHETERIZATION CORONARY ANGIOPLASTY WITH STENT PLACEMENT Sep 19 2022 CYSTOSCOPY 10/27/2024 Surgeon: Patricia Ellison MD; Location: [facility] OR; Service: Urology No Known Allergies Current Facility-Administered Medications: 0.9 % NaCl infusion, , Intravenous, Continuous, Sadi Haney MD, Last Rate: 125 mL/hr at 12/02/24729, Rate Verify at 12/02/24729 acetaminophen (TYLENOL) tablet 650 mg, 650 mg, Oral, 6 times per day,650 mg at 12/02/24625 OR acetaminophen (TYLENOL) oral solution 650mg, 650 [...] Sadi Haney MD, Last Rate: 100 mL/hr at12/02/24916, 1 g at 07/26/25 0917 diphenhydrAMINE (BENADRYL) tablet 12.5-25 mg, 12.5-25 mg, Oral, Q6H PRNOR diphenhydrAMINE (BENADRYL) injection 12.5-25 mg, 12.5-25 mg,Intravenous, Q6H PRN, Sadi Haney MD fUROsemide (LASix) tablet 40 mg, 40 mg, Oral, Daily, Sadi Haney MD, 40 mg at 12/01/242015 ibuprofen (CALDOLOR) 800 mg in dextrose 5% 250 mL IV infusion, 800 mg,Intravenous, 4 times per day, Sadi Haney MD, Stopped at12/02/24 07 losartan (COZAAR) tablet 50 mg, 50 [...] Patch, 1 Patch, Transdermal, Daily,1 Patch at 12/01/24 2204 AND nicotine (NICODERM CQ) patch CHECK, 1Patch, [...] left ureter (HCC) 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 - diffuse severe [...] OLYMPUS ESU, CYSTO FIRST, KCDR HAJ-HAMED ASSISTINGsk IN CYSTOURETHROSCOPY W/DEST &/RMVL MED BLADDER EMERY 12/01/2024 11:21 AM EDT Ureteral mass Special Needs LASSITER KNIFE, HANG WATER, OLYMPUS ESU, CYSTO FIRST, KCDR HAJ-HAMED ASSISTINGsk IN LAPAROSCOPY RADICAL NEPHRECTOMY 12/01/2024 11:21 AM EDT Ureteral mass Special Needs LASSITER KNIFE, HANG WATER, OLYMPUS ESU, CYSTO FIRST, KCDR HAJ-HAMED ASSISTINGsk IN LAPAROSCOPY NEPHRECTOMY W/TOTAL URETERECTOMY 12/01/2024 11:21 AM EDT Ureteral mass Special Needs LASSITER KNIFE, HANG WATER, OLYMPUS ESU, CYSTO FIRST, KCDR HAJ-HAMED ASSISTINGsk US ANES GUIDANCE FOR POC [facility] 12/01/2024 9:47 AM EDT BB HISTORY CHECK STAT 12/01/2024 9:22 AM EDT Preop testing ABORH STAT 12/01/2024 9:22 AM EDT Preop testing RED BLOOD CELLS REQUEST [facility] 11/23/2024 2:10 PM EDT RED BLOOD CELLS REQUEST [facility] 11/23/2024 2:10 PM EDT documented [...] 6:48 AM EDT [facility] Hct 28.5(L) 40.0 - 51.0 % 12/08/2024 6:48 AM EDT [facility] MCV 91.3 80.0 - 100.0 fL 12/08/2024 6:48 AM EDT [facility] MCH 29.8 26.0 - 34.0 pg 12/08/2024 6:48 AM EDT [facility] MCHC 32.6 30.7 - 35.5 g/dL 12/08/2024 6:48 AM EDT [facility] RDW 14.5 <=14.9 % 12/08/2024 6:48 AM EDT [facility] Platelet 292 155 - 369 x10(3)/mcL 12/08/2024 6:48 AM EDT [facility] MPV 9.5 8.8 - 12.5 fL 12/08/2024 6:48 AM EDT [facility] Neut Percent 71.4 % 12/08/2024 6:48 AM EDT [facility] Comment:Neutrophils equals s egs plus bands Imm Gran% 1.1 % 12/08/2024 6:48 AM EDT [facility] Comment:Automated count of m etamyelocytes, myelocytes and promyelocytes. IG >1% represents a left shift and provides an early indication of an infection or inflammatory process. Lymph Percent 14.3 % 12/08/2024 6:48 AM EDT [facility] [place] Percent 11.0 % 12/08/2024 6:48 AM EDT [facility] Eos Percent 1.9 % 12/08/2024 6:48 AM EDT [facility] Baso Percent 0.3 % 12/08/2024 6:48 AM EDT [facility] Neut # 6.7(H) 1.6 - 6.1 x10(3)/[facility] 12/08/2024 6:48 AM EDT [facility] Comment:Neutrophils equals s egs plus bands IMMGRAN# 0.1 0.0 - 0.1 x10(3)/mcL 12/08/2024 6:48 AM EDT [facility] Comment:Automated count of m etamyelocytes, myelocytes and promyelocytes. An absolute IG <0.1 is reported as 0.0. Lymph # 1.3 1.2 - 3.9 x10(3)/[facility] 12/08/2024 6:48 AM EDT [facility] [place] # 1.0(H) 0.3 - 0.9 x10(3)/[facility] 12/08/2024 6:48 AM EDT [facility] Eos# 0.2 0.0 - 0.5 x10(3)/[facility] 12/08/2024 6:48 AM EDT [facility] Baso # 0.0 0.0 - 0.1 x10(3)/[facility] 12/08/2024 6:48 AM EDT [facility] Blood VENOUS BLOOD / Unknown Venipuncture / Unknown 12/08/2024 6:02 AM EDT 12/08/2024 6:35 AM EDT us Juana Shoemaker MD HEMATOLOGY ORDERABLES Final R esult [facility] [address] [facility] , [place] [address] * (ABNORMAL) BASIC METABOLIC PANEL (12/08/2024 6:02 AM EDT) Sodium 137 136 - 145 mmol/L 12/08/2024 7:09 AM EDT [facility] Potassium 3.7 3.5 - 5.0 mmol/L 12/08/2024 7:09 AM EDT [facility] Chloride 104 98 - 107 mmol/L 12/08/2024 7:09 AM EDT [facility] Total CO2 21(L) 22 - 29 mmol/L 12/08/2024 7:09 AM EDT [facility] Anion Gap 12 7 - 16 mmol/L 12/08/2024 7:09 AM EDT [facility] Calcium 9.3 8.6 - 10.4 mg/dL 12/08/2024 7:09 AM EDT [facility] Glucose Lvl 105(H) 70 - 99 mg/dL 12/08/2024 7:09 AM EDT [facility] BUN 11 6 - 20 mg/dL 12/08/2024 7:09 AM EDT [facility] Creatinine 0.96 0.67 - 1.30 mg/dL 12/08/2024 7:09 AM EDT [facility] eGFR (CKD-EPIcr 2020) 96 >=60 mL/min/1.7 3 m2 12/08/2024 7:09 AM EDT [facility] Comment:Estimated GFR was ca lculated using the CKD-EPIcr (2020) equation refit without race. The equation is recommended by the National Kidney Foundation - [place] Society of Nephrology Task Force. Blood VENOUS BLOOD / Unknown Venipuncture / Unknown 12/08/2024 6:02 AM EDT 12/08/2024 6:34 AM EDT us Juana Shoemaker MD CHEMISTRY ORDERABLES Final Re sult [facility] [address] [facility] , [address] [place] [id number] * ECG AND WAVEFORMS - TELEMETRY (12/07/2024 8:06 PM EDT) ECG INTERPRET NSR [facility] 12/07/2024 8:06 PM EDT Narrative [facility] - 12/07/2024 8:18 PM EDT ROUTINE (BS) IN 0.16 QRS 0.12 RR 0.65 QT 0.40 QTc 0.50 See Clinical Report link for waveform capture us Unknown Provider POINT OF CARE CARDIOLOGY Final Result [facility] [address] [place] [address] * [place] CYSTOGRAM MINIMUM 3 [...] COMMENTS: The examination was performed by Rachna Eller, physician customer relations assistant, under the supervision of Dr. Singh. A total fluoroscopy time of 1.2 minutes was used. 119 fluoroscopic spot images were saved to PACS. FINDINGS: Via Bradford catheter, 175 mL of water-soluble contrast was instilled retrograde into the urinary bladder. Imaging was performed in multiple projections. [employer] radiographs show a surgical drain over the [...] COMMENTS: The examination was performed by Rachna Eller,physician customer relations assistant, under the supervision of Dr. Singh. A total fluoroscopy timeof 1.2 minutes was used. 119 fluoroscopic spot images were saved to PACS. FINDINGS: Via Bradford catheter, 175 mL of water-soluble contrast wasinstilled retrograde into the urinary bladder. Imaging was performed in multiple projections. [employer] radiographs show a surgical drain over the [...] WAVEFORMS - TELEMETRY (12/07/2024 10:12 AM EDT) ECG INTERPRET NSR [facility] 12/07/2024 10:1 2 AM EDT Narrative [facility] - 12/07/2024 10:20 AM EDT (DT)ROUTINE IN 0.15 QRS 0.09 RR 0.73 QT 0.37 QTc 0.43 See Clinical Report link for waveform capture us Unknown Provider POINT OF CARE CARDIOLOGY Final Result [facility] [address] [place] [phone] * (ABNORMAL) CBC (12/07/2024 5:33 AM EDT) WBC 10.8(H) 3.7 - 10.3 x10(3)/mcL 12/07/2024 6:50 AM EDT [facility] RBC 3.23(L) 4.60 - 6.10 x10(6)/mcL 12/07/2024 6:50 AM EDT [facility] Hgb 9.7(L) 13.7 - 17.5 g/dL 12/07/2024 6:50 AM EDT [facility] Hct 29.6(L) 40.0 - 51.0 % 12/07/2024 6:50 AM EDT [facility] MCV 91.6 80.0 - 100.0 fL 12/07/2024 6:50 AM EDT [facility] MCH 30.0 26.0 - 34.0 pg 12/07/2024 6:50 AM EDT [facility] MCHC 32.8 30.7 - 35.5 g/dL 12/07/2024 6:50 AM EDT [facility] RDW 14.5 <=14.9 % 12/07/2024 6:50 AM EDT [facility] Platelet 301 155 - 369 x10(3)/mcL 12/07/2024 6:50 AM EDT [facility] MPV 9.6 8.8 - 12.5 fL 12/07/2024 6:50 AM EDT [facility] Blood VENOUS BLOOD / Unknown Venipuncture / Unknown 12/07/2024 5:33 AM EDT 12/07/2024 6:37 AM EDT us Sadi Haney MD HEMATOLOGY ORDERABLES Fin al Result Performing Organization Address [facility] Co de Phone Number [facility], [address], [place] [address] * ECG AND WAVEFORMS - TELEMETRY (12/06/2024 11:04 PM EDT) ECG INTERPRET NSR [facility] 12/06/2024 11:0 4 PM EDT Narrative [facility] - 12/06/2024 11:37 PM EDT ROUTINE IN 0.13 QRS 0.12 RR 0.84 QT 0.40 QTc 0.43 See Clinical Report link for waveform capture us Unknown Provider POINT OF CARE CARDIOLOGY Final Result Performing Organization Address [facility] Phone Number [facility] [address] [place] [address] * (ABNORMAL) C DIFF INTERPRETATION (12/06/2024 9:57 AM EDT) C Diff Toxin DNA Positive(A) Negative 12/06/2024 1:18 PM EDT [facility] [employer] NAP1 Presumptive Neg Presumptive Neg 12/06/2024 1:18 PM EDT [facility] [employer] GDH Antigen Positive(A) Negative 12/06/2024 1:18 PM EDT [facility] [employer] C diff toxin A/B Positive(A) Negative 12/06/2024 1:18 PM EDT [facility] [employer] Stool RECTUM STRUCTURE / Unknown Collection / Unknown 12/06/2024 9:57 AM EDT 12/06/2024 10:05 AM EDT Narrative [facility] - 12/06/2024 1:18 PM EDT Toxin producing C diff target DNA sequences detected. Toxins A/B positive. CDI likely. Consider initiation of severity-based CDI therapy according to CDI management guidance. us Brody LINDQUIST MICROBIOLOGY - GENERAL ORDERABLE S Final Result Performing Organization Address [facility] Co de Phone Number [facility] [employer] [address] [place] [address] , [place] [address] * C DIFF GDH AG AND TOXIN A+B (12/06/2024 9:57 AM EDT) Stool RECTUM STRUCTURE / Unknown Collection / Unknown 12/06/2024 9:57 AM EDT 12/06/2024 10:05 AM EDT Brody LINDQUIST MICROBIOLOGY - GENERAL ORDERABLE S Final Result Performing Organization Address City/[facility]/ZIP Co de Phone Number [facility] [employer] [facility] [address] [facility] , [place] [address] * C DIFF TOXIN DNA (12/06/2024 9:57 AM EDT) Stool RECTUM STRUCTURE / Unknown Collection / Unknown 12/06/2024 9:57 AM EDT 12/06/2024 10:05 AM EDT Brody LINDQUIST MICROBIOLOGY - GENERAL ORDERABLE S Final Result Performing Organization Address City/[facility]/ZIP Co de Phone Number [facility] [employer] [facility] [address] [facility] [facility] , [place] [address] * ECG AND WAVEFORMS - TELEMETRY (12/06/2024 7:01 AM EDT) ECG INTERPRET NSR [facility] 12/06/2024 7:01 AM EDT Narrative [facility] - 12/06/2024 8:04 AM EDT (DT)ROUTINE IN 0.17 QRS 0.09 RR 0.78 QT 0.38 QTc 0.42 See Clinical Report link for waveform capture Unknown Provider POINT OF CARE CARDIOLOGY Final Result Performing Organization Address City/[facility]/ZIP Co de Phone Number [facility] [address] [place] [address] * (ABNORMAL) CBC (12/06/2024 5:28 [...] pg 12/06/2024 6:35 AM EDT [facility] MCHC 33.9 30.7 - 35.5 g/dL 12/06/2024 6:35 AM EDT [facility] RDW 14.4 <=14.9 % 12/06/2024 6:35 AM EDT [facility] Platelet 217 155 - 369 x10(3)/mcL 12/06/2024 6:35 AM EDT [facility] MPV 9.7 8.8 - 12.5 fL 12/06/2024 6:35 AM EDT [facility] Blood VENOUS BLOOD / Unknown Venipuncture / Unknown 12/06/2024 5:28 AM EDT 12/06/2024 6:23 AM EDT Sadi Haney MD HEMATOLOGY ORDERABLES Fin al Result [facility] [address] [facility] , [place] [address] * ECG AND WAVEFORMS - TELEMETRY (12/05/2024 7:00 PM EDT) [facility] ECG INTERPRET Sinus Tachycardia [facility] 12/05/2024 7:00 PM EDT Narrative [facility] - 12/05/2024 9:36 PM EDT ROUTNE IN 0.13 QRS 0.12 RR 0.55 QT 0.34 QTc 0.46 See Clinical Report link for waveform capture us Unknown Provider POINT OF CARE CARDIOLOGY Final Result Performing Organization Address [facility] Co de Phone Number [facility] [address] [place] [phone] * (ABNORMAL) HEMOGLOBIN AND HEMATOCRIT (12/05/2024 12:22 PM EDT) [facility] Hgb 9.4(L) 13.7 - 17.5 g/dL 12/05/2024 1:04 PM EDT [facility] 27.8(L) 40.0 - 51.0 % 12/05/2024 1:04 PM EDT [facility] VENOUS BLOOD / Unknown Venipuncture / Unknown 12/05/2024 12:22 PM EDT 12/05/2024 12:27 PM EDT us Juana Shoemaker MD HEMATOLOGY ORDERABLES Final R esult Performing Organization Address [facility] Co de Phone Number [facility] [address], [place] [address] * ECG AND WAVEFORMS - TELEMETRY (12/05/2024 8:03 AM EDT) [facility] ECG INTERPRET NSR [facility] 12/05/2024 8:03 AM EDT Narrative [facility] - 12/05/2024 9:13 AM EDT IN 0.14 QRS 0.08 RR 0.72 QT 0.36 QTc 0.42 See Clinical Report link for waveform capture us Unknown Provider POINT OF CARE CARDIOLOGY Final Result Performing Organization Address [facility] Co de Phone Number [facility] [address] [place] [address] * (ABNORMAL) CBC (12/05/2024 5:55 AM EDT) [facility] WBC 8.0 3.7 - 10.3 x10(3)/mcL 12/05/2024 7:34 AM EDT [facility] RBC 2.79(L) 4.60 - 6.10 x10(6)/mcL 12/05/2024 7:34 AM EDT [facility] Hgb 8.4(L) 13.7 - 17.5 g/dL 12/05/2024 7:34 AM EDT [facility] Hct 25.3(L) 40.0 - 51.0 % 12/05/2024 7:34 AM EDT [facility] MCV 90.7 80.0 - 100.0 fL 12/05/2024 7:34 AM EDT [facility] MCH 30.1 26.0 - 34.0 pg 12/05/2024 7:34 AM EDT [facility] MCHC 33.2 30.7 - 35.5 g/dL 12/05/2024 7:34 AM EDT [facility] RDW 14.2 <=14.9 % 12/05/2024 7:34 AM EDT [facility] Platelet 187 155 - 369 x10(3)/mcL 12/05/2024 7:34 AM EDT [facility] MPV 9.9 8.8 - 12.5 fL 12/05/2024 7:34 AM EDT [facility] Blood VENOUS BLOOD / Unknown Venipuncture / Unknown 12/05/2024 5:55 AM EDT 12/05/2024 7:05 AM EDT Sadi Haney MD HEMATOLOGY ORDERABLES Fin al Result [facility] [address] [facility] , [place] [address] * (ABNORMAL) HEMOGLOBIN AND HEMATOCRIT (12/04/2024 7:12 PM EDT) [facility] Hgb 8.9(L) 13.7 - 17.5 g/dL 12/04/2024 7:32 PM EDT [facility] Hct 26.5(L) 40.0 - 51.0 % 12/04/2024 7:32 PM EDT [facility] Blood VENOUS BLOOD / Unknown Venipuncture / Unknown 12/04/2024 7:12 PM EDT 12/04/2024 7:25 PM EDT Sadi Haney MD HEMATOLOGY ORDERABLES Fin al Result Performing Organization Address City/[facility]/ZIP Co de Phone Number [facility] [employer] [address] [facility], [place] [address] * ECG AND WAVEFORMS - TELEMETRY (12/04/2024 7:00 PM EDT) Pathologist [facility] ECG INTERPRET NSR [facility] 12/04/2024 7:00 PM EDT Narrative [facility] - 12/05/2024 1:26 AM EDT ROUTINE(CW) IN 0.14 QRS 0.07 RR 0.77 QT 0.38 QTc 0.43 See Clinical Report link for waveform capture us Unknown Provider POINT OF CARE CARDIOLOGY Final Result Performing Organization Address [facility] de Phone Number [facility] [address] [place] [phone] * TRANSFUSE RED BLOOD CELLS (12/04/2024 3:25 PM EDT) Peace Rea APRN NURSING TREATMENT ORDERABLES - BLOOD ADMIN Edited Result - Final * TRANSFUSE RED BLOOD CELLS (12/04/2024 3:25 PM EDT) Peace Rea APRN NURSING TREATMENT ORDERABLES - BLOOD ADMIN Edited Result - Final * (ABNORMAL) HEMOGLOBIN AND HEMATOCRIT (12/04/2024 12:54 PM EDT) Hgb 8.2(L) 13.7 - 17.5 g/dL 12/04/2024 1:13 PM EDT [facility] [employer] Hct 24.7(L) 40.0 - 51.0 % 12/04/2024 1:13 PM EDT [facility] [employer] Blood VENOUS BLOOD / Unknown Venipuncture / Unknown 12/04/2024 12:54 PM EDT 12/04/2024 1:06 PM EDT us Peace Kathy Rea MANUFACTURING TECHNOLOGY PROFESSOR HEMATOLOGY ORDERABLES Fin al Result Performing Organization Address [facility] Co de Phone Number [facility] [employer] [facility] [address] [facility], [place] [address] * ECG AND WAVEFORMS - TELEMETRY (12/04/2024 7:56 AM EDT) ECG INTERPRET NSR [facility] 12/04/2024 7:56 AM EDT Narrative [facility] - 12/04/2024 11:08 PM EDT ROUTINE//AC IN 0.14 QRS 0.11 RR 0.76 QT 0.39 QTc 0.45 See Clinical Report link for waveform capture us Unknown Provider POINT OF CARE CARDIOLOGY Final Result Performing Organization Address [facility] Co de Phone Number [facility] [address] [place] [address] * ECG AND WAVEFORMS - TELEMETRY (12/04/2024 7:56 AM EDT) ECG INTERPRET NSR [facility] 12/04/2024 7:56 AM EDT Narrative [facility] - 12/04/2024 8:01 AM EDT ROUTINE//AC IN 0.14 QRS 0.11 RR 0.76 QT 0.39 QTc 0.45 See Clinical Report link for waveform capture us Unknown Provider POINT OF CARE CARDIOLOGY Final Result Performing Organization Address [facility] Co de Phone Number [facility] [address] [place] [address] * (ABNORMAL) IRON+TIBC (12/04/2024 5:52 AM EDT) Iron 27(L) 50 - 170 mcg/dL 12/05/2024 12:26 PM EDT [facility] [employer] [employer] Transferrin 160(L) 200 - 360 mg/dL 12/05/2024 12:26 PM EDT [facility] [employer] Trans[employer] Saturation 12(L) 20 - 50 % 12/05/2024 12:26 PM EDT [facility] TIBC 224(L) 250 - 400 mcg/dL 12/05/2024 12:26 PM EDT [facility] Blood VENOUS BLOOD / Unknown Venipuncture / Unknown 12/04/2024 5:52 AM EDT 12/04/2024 6:01 AM EDT Juana Shoemaker MD CHEMISTRY ORDERABLES Final Re sult [facility] [address] [facility] , [place] [address] * (ABNORMAL) BASIC METABOLIC PANEL (12/04/2024 5:52 AM EDT) Sodium 140 136 - 145 mmol/L 12/04/2024 6:38 AM EDT [facility] Potassium 3.9 3.5 - 5.0 mmol/L 12/04/2024 6:38 AM EDT [facility] Chloride 109(H) 98 - 107 mmol/L 12/04/2024 6:38 AM EDT [facility] Total CO2 23 22 - 29 mmol/L [...] 6:38 AM EDT [facility] eGFR (CKD-EPIcr 2020) 85 >=60 mL/min/1.7 3 m2 12/04/2024 6:38 AM EDT [facility] Comment:Estimated GFR was ca lculated using the CKD-EPIcr (2020) equation refit without race. The equation is recommended by the [employer] - [place] [employer]ph[employer] Task Force. Blood VENOUS BLOOD / Unknown Venipuncture / Unknown 12/04/2024 5:52 AM EDT 12/04/2024 6:01 AM EDT Sadi Haney MD CHEMISTRY ORDERABLES Nadiya nichols Result [facility] [address] [facility] , [address] [place] [id number] * (ABNORMAL) CBC WITH DIFF (12/04/2024 5:52 [...] [facility] Platelet 145(L) 155 - 369 x10(3)/mcL 12/04/2024 6:13 AM EDT [facility] MPV 9.3 8.8 - 12.5 fL 12/04/2024 6:13 AM EDT [facility] Neut Percent 63.2 % 12/04/2024 6:13 AM EDT [facility] Comment:Neutrophils equals s egs plus bands Imm Gran% 0.6 % 12/04/2024 6:13 AM EDT [facility] Comment:Automated count of m etamyelocytes, myelocytes and promyelocytes. Lymph Percent 22.9 % 12/04/2024 6:13 AM EDT [facility] [place] Percent 10.4 % 12/04/2024 6:13 AM EDT [facility] Eos Percent 2.6 % 12/04/2024 6:13 AM EDT [facility] Baso Percent 0.3 % 12/04/2024 6:13 AM EDT [facility], [facility] Neut # 4.1 1.6 - 6.1 x10(3)/[facility] 12/04/2024 6:13 AM EDT [facility] [employer], [facility] Comment:Neutrophils equals s egs plus bands IMMGRAN# 0.0 0.0 - 0.1 x10(3)/[facility] 12/04/2024 6:13 AM EDT [facility] Comment:Automated count of m etamyelocytes, myelocytes and promyelocytes. An absolute IG <0.1 is reported as 0.0. Lymph # 1.5 1.2 - 3.9 x10(3)/[facility] 12/04/2024 6:13 AM EDT [facility] [place] # 0.7 0.3 - 0.9 x10(3)/[facility] 12/04/2024 6:13 AM EDT [facility] Eos# 0.2 0.0 - 0.5 x10(3)/[facility] 12/04/2024 6:13 AM EDT [facility] [employer] [facility] Baso # 0.0 0.0 - 0.1 x10(3)/[facility] 12/04/2024 6:13 AM EDT [facility] [employer] Blood VENOUS BLOOD / Unknown Venipuncture / Unknown 12/04/2024 5:52 AM EDT 12/04/2024 6:01 AM EDT us Sadi Haney MD HEMATOLOGY ORDERABLES Fin al Result [facility] [address] [place] [address] , [address] [place] [phone] * ECG AND WAVEFORMS - TELEMETRY (12/03/2024 7:00 PM EDT) ECG INTERPRET NSR [facility] 12/03/2024 7:00 PM EDT Narrative [facility] - 12/03/2024 8:34 PM EDT ROUTINE(CW) IN 0.15 QRS 0.06 RR 0.60 QT 0.27 QTc 0.35 See Clinical Report link for waveform capture us Unknown Provider POINT OF CARE CARDIOLOGY Final Result Performing Organization Address [facility]/ZIP Co de Phone Number [facility] [address] [place] [address] * (ABNORMAL) HEMOGLOBIN AND HEMATOCRIT (12/03/2024 10:44 AM EDT) [facility] Hgb 7.9(L) 13.7 - 17.5 g/dL 12/03/2024 11:50 AM EDT [facility] Hct 23.7(L) 40.0 - 51.0 % 12/03/2024 11:50 AM EDT [facility] Blood VENOUS BLOOD / Unknown Venipuncture / Unknown 12/03/2024 10:44 AM EDT 12/03/2024 10:54 AM EDT us Meng Chen MD HEMATOLOGY ORDERABLES Final Res ult Performing Organization Address City/[facility]/ZIP Co de Phone Number [facility] [employer] [address] , [place] [address] * ECG AND WAVEFORMS - TELEMETRY (12/03/2024 7:00 AM EDT) ECG INTERPRET R [facility] 12/03/2024 7:00 AM EDT Narrative [facility] - 12/03/2024 7:58 AM EDT [place] ROUTINE IN 0.14 QRS 0.09 RR 0.66 QT 0.35 See Clinical Report link for waveform capture us Unknown Provider POINT OF CARE CARDIOLOGY Final Result [facility] [address] [place] [address] * (ABNORMAL) HEMOGLOBIN AND HEMATOCRIT (12/03/2024 4:48 AM EDT) Hgb 8.0(L) 13.7 - 17.5 g/dL 12/03/2024 5:08 AM EDT [facility] [employer] Hct 24.4(L) 40.0 - 51.0 % 12/03/2024 5:08 AM EDT [facility] [employer] Blood VENOUS BLOOD / Unknown Venipuncture / Unknown 12/03/2024 4:48 AM EDT 12/03/2024 4:58 AM EDT Meng Chen MD HEMATOLOGY ORDERABLES Final Res ult [facility] [employer] [address], [place] [address] * TRANSFUSE RED BLOOD CELLS (12/03/2024 4:00 AM EDT) Sadi Haney MD NURSING TREATMENT ORDERAB LES - BLOOD ADMIN Final Result * TRANSFUSE RED BLOOD CELLS (12/03/2024 4:00 AM EDT) Sadi Haney MD NURSING TREATMENT ORDERAB LES - BLOOD ADMIN Final Result * (ABNORMAL) TROPONIN-T HIGH SENSITIVITY 6 HR (12/03/2024 3:40 AM EDT) xx-cNwbdkvhx-Y 6HR 37(H) <22 ng/L 12/03/2024 4:43 AM EDT [facility] [employer] hs-cTnT 6Hr Delta from Baseline 11 <12 ng/L 12/03/2024 4:43 AM EDT [facility] [employer] Blood VENOUS BLOOD / Unknown Venipuncture / Unknown 12/03/2024 3:40 AM EDT 12/03/2024 4:11 AM EDT Narrative [facility] - 12/03/2024 4:43 AM EDT Ingestion of josé miguel doses of biotin (>5 mg/day) taken within 8 hours of drawing blood sample can interfere with this immunoassay test. us Rachna Wood MANUFACTURING TECHNOLOGY PROFESSOR CHEMISTRY ORDERABLES Fin al Result [facility] [address] [facility] , [place] [address] * (ABNORMAL) BASIC METABOLIC PANEL (12/03/2024 3:40 AM EDT) Sodium 142 136 - 145 mmol/L 12/03/2024 4:42 AM EDT [facility] Potassium 4.2 3.5 - 5.0 mmol/L 12/03/2024 4:42 AM EDT [facility] Chloride 111(H) 98 - 107 mmol/L 12/03/2024 4:42 AM EDT [facility] Total CO2 21(L) 22 - 29 mmol/L 12/03/2024 4:42 AM EDT [facility] Anion Gap 10 7 - 16 mmol/L 12/03/2024 4:42 AM EDT [facility] Calcium 8.1(L) 8.6 - 10.4 mg/dL 12/03/2024 4:42 AM EDT [facility] Glucose Lvl 105(H) 70 - 99 mg/dL 12/03/2024 4:42 AM EDT [facility] BUN 15 6 - 20 mg/dL 12/03/2024 4:42 AM EDT [facility] Creatinine 1.25 0.67 - 1.30 mg/dL 12/03/2024 4:42 AM EDT [facility] eGFR (CKD-EPIcr 2020) 70 >=60 mL/min/1.7 3 m2 12/03/2024 4:42 AM EDT [facility] Comment:Estimated GFR was ca lculated using the CKD-EPIcr (2020) equation refit without race. The equation is recommended by the National Kidney Foundation - [place] [employer] of Nephrology Task Force. Blood VENOUS BLOOD / Unknown Venipuncture / Unknown 12/03/2024 3:40 AM EDT 12/03/2024 4:11 AM EDT Sadi Haney MD CHEMISTRY ORDERABLES Nadiya nichols Result [facility] [address] [facility] [facility], [place] [address] * (ABNORMAL) CBC WITH DIFF (12/03/2024 3:40 [...] % 12/03/2024 4:22 AM EDT [facility], [facility] [place] Percent 11.5 % 12/03/2024 4:22 AM EDT [facility], [facility] Eos Percent 0.6 % 12/03/2024 4:22 AM EDT [facility] Baso Percent 0.2 % 12/03/2024 4:22 AM EDT [facility] Neut # 6.7(H) 1.6 - 6.1 x10(3)/[facility] 12/03/2024 4:22 AM EDT [facility], [facility] Comment:Neutrophils equals s egs plus bands IMMGRAN# 0.0 0.0 - 0.1 x10(3)/[facility] 12/03/2024 4:22 AM EDT [facility], [facility] Comment:Automated count of m etamyelocytes, myelocytes and promyelocytes. An absolute IG <0.1 is reported as 0.0. Lymph # 1.6 1.2 - 3.9 x10(3)/[facility] 12/03/2024 4:22 AM EDT [facility], [facility] [place] # 1.1(H) 0.3 - 0.9 x10(3)/[facility] 12/03/2024 4:22 AM EDT [facility], [facility] Eos# 0.1 0.0 - 0.5 x10(3)/[facility] 12/03/2024 4:22 AM EDT [facility] Baso # 0.0 0.0 - 0.1 x10(3)/[facility] 12/03/2024 4:22 AM EDT [facility], [facility] Blood VENOUS BLOOD / Unknown Venipuncture / Unknown 12/03/2024 3:40 AM EDT 12/03/2024 4:11 AM EDT Sadi Haney MD HEMATOLOGY ORDERABLES Fin al Result [facility], [facility] [address] [facility] , [place] [address] * TRANSFUSE RED BLOOD CELLS (12/03/2024 1:03 AM EDT) Sadi Haney MD NURSING TREATMENT ORDERAB LES - BLOOD ADMIN Final Result * TRANSFUSE RED BLOOD CELLS (12/03/2024 1:03 AM EDT) Sadi Haney MD NURSING TREATMENT ORDERAB LES - BLOOD ADMIN Final Result * (ABNORMAL) TROPONIN-T HIGH SENSITIVITY 2HR (12/02/2024 10:14 PM EDT) Pathologist [facility] fs-eYwmymdpv-M 2HR 33(H) <22 ng/L 12/02/2024 11:02 PM EDT [facility] hs-cTnT 2Hr Delta from Baseline 7(H) <4 ng/L 12/02/2024 11:02 PM EDT [facility] Blood VENOUS BLOOD / Unknown Venipuncture / Unknown 12/02/2024 10:14 PM EDT 12/02/2024 10:33 PM EDT Narrative [facility] - 12/02/2024 11:02 PM EDT Ingestion of josé miguel doses of biotin (>5 mg/day) taken within 8 hours of drawing blood sample can interfere with this immunoassay test. Rachna Wood MANUFACTURING TECHNOLOGY PROFESSOR CHEMISTRY ORDERABLES Fin al Result [facility] [address] [place] [address] , [place] [address] * CT ABDOMEN PELVIS W CONTRAST (12/02/2024 [...] BASELINE W/ REFLEX (12/02/2024 7:34 PM EDT) md-bXfdkytoq-W 26(H) <22 ng/L 12/02/2024 8:05 PM EDT [facility] Blood VENOUS BLOOD / Unknown Venipuncture / Unknown 12/02/2024 7:34 PM EDT 12/02/2024 7:37 PM EDT Narrative [facility] - 12/02/2024 8:05 PM EDT Ingestion of josé miguel doses of biotin (>5 mg/day) taken within 8 hours of drawing blood sample can interfere with this immunoassay test. Rachna Wood MANUFACTURING TECHNOLOGY PROFESSOR CHEMISTRY ORDERABLES Fin al Result [facility] [address] [place] [address] , [place] [address] * EK EKG 12 LEAD (12/02/2024 7:13 PM EDT) Anatomical Region Laterality Modality Electrocardiogra phy 12/02/2024 7:21 PM EDT Impressions 12/03/2024 11:25 AM EDT [facility] Test Date: 2024-12-02 Pat Name: ALEX HOFFMAN Department: DEPID Room: 7308 Gender: Male Community Relations Representative: As : 1975 Requested By: RACHNA Gutierrez Order Number: [id number] Reading MD: Edelmira Ramsey DO Measurements Intervals [place] Rate: 123 P: 131 IN: 167 QRS: 1 QRSD: 90 T: 72 QT: 319 QTc: 457 Interpretive Statements SINUS TACHYCARDIA NONSPECIFIC ST & T-WAVE ABNORMALITY ABNORMAL RHYTHM ECG Electronically Signed On 12-03-2024 11:25:42 EDT by Edelmira Ramsey DO Narrative Procedure Note Edelmira Ramsey DO - 12/03/2024 [facility] Test Date: 2024-12-02 Pat Name: ALEX HOFFMAN Department: DEPID Room: 73 Gender: Male Community Relations Representative: As : 1975 Requested By: RACHNA Gutierrez Order Number: [id number] Reading MD: Edelmira Ramsey DO Measurements Intervals [place] Rate: 123 P: 131 IN: 167 QRS: 1 QRSD: 90 T: 72 QT: 319 QTc: 457 Interpretive Statements SINUS TACHYCARDIA NONSPECIFIC ST & T-WAVE ABNORMALITY ABNORMAL RHYTHM ECG Electronically Signed On 12-03-2024 11:25:42 EDT by Edelmira Ramsey DO us Rachna Wood MANUFACTURING TECHNOLOGY PROFESSOR IMG ECG ORDERABLES Final Result * ECG AND WAVEFORMS - TELEMETRY (12/02/2024 7:00 PM EDT) Pathologist [facility] ECG INTERPRET Sinus Tachycardia [facility] 12/02/2024 7:00 PM EDT Narrative [facility] - 12/02/2024 7:47 PM EDT ROUTINE(CW) IN 0.10 QRS 0.05 RR 0.40 QT 0.27 QTc 0.43 See Clinical Report link for waveform capture us Unknown Provider POINT OF CARE CARDIOLOGY Final Result [facility] [address] [place] [address] * (ABNORMAL) HEMOGLOBIN AND HEMATOCRIT (12/02/2024 6:17 PM EDT) Hgb 7.5(L) 13.7 - 17.5 g/dL 12/02/2024 6:54 PM EDT [facility] Hct 22.9(L) 40.0 - 51.0 % 12/02/2024 6:54 PM EDT [facility] [employer] Blood VENOUS BLOOD / Unknown Venipuncture / Unknown 12/02/2024 6:17 PM EDT 12/02/2024 6:25 PM EDT us Meng Chen MD HEMATOLOGY ORDERABLES Final Res ult Performing Organization Address City/[facility]/ZIP Co de Phone Number [facility] [employer] [facility] [address] [facility] , [address] [place] [phone] * REPEAT LACTIC ACID (12/02/2024 6:17 PM EDT) Lactic Acid 1.6 0.5 - 1.9 mmol/L 12/02/2024 6:44 PM EDT [facility] Blood VENOUS BLOOD / Unknown Venipuncture / Unknown 12/02/2024 6:17 PM EDT 12/02/2024 6:25 PM EDT us Meng Chen MD CHEMISTRY ORDERABLES Final Resu lt Performing Organization Address [facility] Co de Phone Number [facility] [address] [facility] , [place] [address] * (ABNORMAL) REPEAT LACTIC ACID (12/02/2024 3:49 PM EDT) Lactic Acid 2.9(H) 0.5 - 1.9 mmol/L 12/02/2024 4:29 PM EDT [facility] Blood VENOUS BLOOD / Unknown Venipuncture / Unknown 12/02/2024 3:49 PM EDT 12/02/2024 3:55 PM EDT us Meng Chen MD CHEMISTRY ORDERABLES Final Resu lt Performing Organization Address City/[facility]/ZIP Co de Phone Number [facility] [employer] [facility] [address] [facility] , [place] [address] * ECG AND WAVEFORMS - TELEMETRY (12/02/2024 3:11 PM EDT) ECG INTERPRET Sinus Tachycardia [facility] Comment: notified 12/02/2024 3:11 PM EDT Narrative [facility] - 12/02/2024 3:13 PM EDT [place] ROUTINE See Clinical Report link for waveform capture Unknown Provider POINT OF CARE CARDIOLOGY Final Result Performing Organization Address City/[facility]/ZIP Co de Phone Number [facility] [address] [place] [phone] * (ABNORMAL) LACTIC ACID (12/02/2024 1:42 PM EDT) [facility] Lactic Acid 3.2(H) 0.5 - 1.9 mmol/L 12/02/2024 2:16 PM EDT [facility] Blood VENOUS BLOOD / Unknown Venipuncture / Unknown 12/02/2024 1:42 PM EDT 12/02/2024 1:52 PM EDT Meng Chen MD CHEMISTRY ORDERABLES Final Resu lt Performing Organization Address City/[facility] Co de Phone Number [facility] [address] [facility] , [place] [address] * BLOOD CULTURE (NO STAIN) (12/02/2024 1:42 PM EDT) [facility] Culture Result No Growth at 120 hours. BLOOD CULTURE (NO STAIN) 12/07/2024 3:00 PM EDT [facility] Blood VENOUS BLOOD / Unknown Venipuncture / Unknown 12/02/2024 1:42 PM EDT 12/02/2024 1:53 PM EDT Meng Chen MD MICROBIOLOGY - GENERAL ORDERABL ES Final Result Performing Organization Address City/[facility]/ZIP Co de Phone Number [facility] [address] [facility] , [place] [address] * ECG AND WAVEFORMS - TELEMETRY (12/02/2024 12:27 PM EDT) Pathologist [facility] ECG INTERPRET Sinus Tachycardia [facility] Comment:aysmptomatic on asse ssment 12/02/2024 12:2 7 PM EDT Narrative [facility] - 12/02/2024 12:50 PM EDT [place] ROUTINE IN 0.13 QRS 0.10 RR 0.50 QT 0.32 See Clinical Report link for waveform capture us Unknown Provider POINT OF CARE CARDIOLOGY Final Result Performing Organization Address City/[facility]/ZIP Co de Phone Number [facility] [address] [place] [phone] * (ABNORMAL) REPEAT LACTIC ACID (12/02/2024 10:59 AM EDT) Pathologist [facility] Lactic Acid 2.8(H) 0.5 - 1.9 mmol/L 12/02/2024 11:16 AM EDT [facility] Blood VENOUS BLOOD / Unknown Venipuncture / Unknown 12/02/2024 10:59 AM EDT 12/02/2024 10:59 AM EDT Sundar Kessler APRN CHEMISTRY ORDERABLES Final Result Performing Organization Address [facility] Co de Phone Number [facility] [address] [place] [phone] * URINE CULTURE (NO STAIN) (12/02/2024 10:53 AM EDT) Pathologist [facility] Culture No growth at 30 hours. 12/04/2024 6:38 AM EDT [facility] URINARY BLADDER STRUCTURE / Unknown 12/02/2024 10:53 AM EDT 12/02/2024 11:12 AM EDT Sundar Kessler APRN MICROBIOLOGY - GENER AL ORDERABLES Final Result Performing Organization Address City/[facility] Co de Phone Number [facility] [employer] [address] [facility], [place] [address] * EXTRA SWENSON URINE CX (12/02/2024 10:53 AM EDT) Urine URINE SPECIMEN OBTAINED VIA INDWELLING URINARY CATHETER / Unknown 12/02/2024 10:53 AM EDT 12/02/2024 10:59 AM EDT Sundar Kessler MANUFACTURING TECHNOLOGY PROFESSOR MICROBIOLOGY - GENER AL ORDERABLES Final Result [place] [phone] * (ABNORMAL) URINALYSIS REFLEX (12/02/2024 10:53 AM [...] AM EDT [facility] UA pH 6.0 5.0 - 8.0 pH 12/02/2024 11:12 AM EDT [facility] UA Protein 1+ (30 mg/dL)(A) Negative mg/dL 12/02/2024 11:12 AM EDT [facility] UA Urobilinogen Normal <=1 mg/dL 11:12 AM [...] 11:12 AM EDT [facility] Comment:Reference range jc d for random specimens only. UA WBC 28(H) 0 - 4 /HPF 12/02/2024 11:12 AM EDT [facility] UA RBC >182(H) 0 - 3 /HPF 12/02/2024 11:12 AM EDT [facility] UA [employer] 1+ /LPF 12/02/2024 11:12 AM EDT [facility] UA Bacteria 1+(A) Negative /HPF 12/02/2024 11:12 AM EDT [facility] [employer] Urine URINARY BLADDER STRUCTURE / Unknown 12/02/2024 10:53 AM EDT 12/02/2024 10:59 AM EDT Sundar Kessler MANUFACTURING TECHNOLOGY PROFESSOR URINE ORDERABLES Fin al Result Performing Organization Address City/[facility]/ZIP Co de Phone Number [facility] [employer] [address] , [place] [address] * BLOOD CULTURE (NO STAIN) (12/02/2024 10:51 AM EDT) Culture Result No Growth at 120 hours. BLOOD CULTURE (NO STAIN) 12/07/2024 1:00 PM EDT [facility] [employer] Blood VENOUS BLOOD / Unknown Venipuncture / Unknown 12/02/2024 10:51 AM EDT 12/02/2024 10:51 AM EDT Meng Chen MD MICROBIOLOGY - GENERAL ORDERABL ES Final Result Performing Organization Address [facility]/ZIP Co de Phone Number [facility] [employer] , [place] [address] * XR CHEST AP PORTABLE (12/02/2024 9:55 [...] - 17.5 g/dL 12/02/2024 10:12 AM EDT [facility] [employer] Hct 24.7(L) 40.0 - 51.0 % 12/02/2024 10:12 AM EDT [facility] [employer] Blood VENOUS BLOOD / Unknown Venipuncture / Unknown 12/02/2024 9:22 AM EDT 12/02/2024 9:48 AM EDT [employer] MANUFACTURING TECHNOLOGY PROFESSOR HEMATOLOGY ORDERABLES Fin al Result [facility] [address] [facility], [place] [address] * (ABNORMAL) REPEAT LACTIC ACID (12/02/2024 9:22 AM EDT) [facility] Lactic Acid 2.3(H) 0.5 - 1.9 mmol/L 12/02/2024 10:00 AM EDT [facility] Blood VENOUS BLOOD / Unknown Venipuncture / Unknown 12/02/2024 9:22 AM EDT 12/02/2024 9:46 AM EDT [employer] CHEMISTRY ORDERABLES Final Result [facility] [address] [place] [address] * (ABNORMAL) TROPONIN-T HIGH SENSITIVITY 2HR (12/02/2024 9:22 AM EDT) [facility] og-gObmkspuv-X 2HR 26(H) <22 ng/L 12/02/2024 10:[address] [facility] hs-cTnT 2Hr Delta from Baseline -1 <4 ng/L 12/02/2024 10:[address] [facility] Blood VENOUS BLOOD / Unknown Venipuncture / Unknown 12/02/2024 9:22 AM EDT 12/02/2024 9:46 AM EDT Narrative [facility] - 12/02/2024 10:04 AM EDT Ingestion of josé miguel doses of biotin (>5 mg/day) taken within 8 hours of drawing blood sample can interfere with this immunoassay test. [employer] CHEMISTRY ORDERABLES Final Result [facility] [address] [place] [address] * (ABNORMAL) TROPONIN-T HIGH SENSITIVITY BASELINE W/ REFLEX (12/02/2024 7:08 AM EDT) th-lYrszzmuj-E 27(H) <22 ng/L 12/02/2024 7:42 AM EDT [facility] Blood VENOUS BLOOD / Unknown Venipuncture / Unknown 12/02/2024 7:08 AM EDT 12/02/2024 7:14 AM EDT Narrative [facility] [employer] [facility] - 12/02/2024 7:42 AM EDT Ingestion of josé miguel doses of biotin (>5 mg/day) taken within 8 hours of drawing blood sample can interfere with this immunoassay test. Sundar Kessler APRN CHEMISTRY ORDERABLES Final Result Performing Organization Address City/[facility]/ZIP Co de Phone Number [facility] [employer] [address] , [place] [address] * (ABNORMAL) REPEAT LACTIC ACID (12/02/2024 7:08 AM EDT) Lactic Acid 3.1(H) 0.5 - 1.9 mmol/L 12/02/2024 7:35 AM EDT [facility] [employer] [facility] Blood VENOUS BLOOD / Unknown Venipuncture / Unknown 12/02/2024 7:08 AM EDT 12/02/2024 7:15 AM EDT Sundar Kessler APRN CHEMISTRY ORDERABLES Final Result Performing Organization Address City/[facility]/ZIP Co de Phone Number [facility] [employer] [address] , [place] [address] * EK EKG 12 LEAD (12/02/2024 7:01 AM EDT) Anatomical Region Laterality Modality Electrocardiogra phy 12/02/2024 7:17 AM EDT Impressions 12/02/2024 1:57 PM EDT [facility] Test Date: 2024-12-02 Pat Name: ALEX HOFFMAN Department: DEPID Room: 7308 Gender: Male Community Relations Representative: [place] : 1975 Requested By: SUNDAR LAWRENCE Order Number: [id number] Reading MD: Forrest Johnston MD Measurements Intervals [place] Rate: 92 P: 46 IN: 132 QRS: 13 QRSD: 85 T: 33 QT: 367 QTc: 454 Interpretive Statements SINUS RHYTHM Electronically Signed On 12-02-2024 13:57:21 EDT by Forrest Johnston MD Narrative Procedure Note Forrest Johnston MD - 12/02/[address] [facility] Test Date: 2024-12-02 Pat Name: ALEX HOFFMAN Department: DEPID Room: 7308 Gender: Male Community Relations Representative: [place] : 1975 Requested By: SUNDAR MORENO Order Number: [id number] Reading MD: Forrest Johnston MD Measurements Intervals [place] Rate: 92 P: 46 IN: 132 QRS: 13 QRSD: 85 T: 33 QT: 367 QTc: 454 Interpretive Statements SINUS RHYTHM Electronically Signed On 12-02-2024 13:57:21 EDT by Forrest Johnston MD Sundar Kessler MANUFACTURING TECHNOLOGY PROFESSOR IMG ECG ORDERABLES F inal Result * (ABNORMAL) PROCALCITONIN (12/02/2024 5:05 AM EDT) Procalcitonin 0.62(H) <=0.49 ng/mL 12/02/2024 5:52 AM EDT [facility] Blood VENOUS BLOOD / Unknown Venipuncture / Unknown 12/02/2024 5:05 AM EDT 12/02/2024 5:11 AM EDT Narrative [facility] - 12/02/2024 5:52 AM EDT Procalcitonin <0.50 [...] progression to severe sepsis and/or septic shock. [employer] MANUFACTURING TECHNOLOGY PROFESSOR CHEMISTRY ORDERABLES Final Result Performing Organization Address [facility] Co de Phone Number [facility] [address] [place] [address] , [place] [address] * (ABNORMAL) LACTIC ACID (12/02/2024 5:04 AM EDT) Lactic Acid 3.5(H) 0.5 - 1.9 mmol/L 12/02/2024 5:31 AM EDT [facility] Blood VENOUS BLOOD / Unknown Venipuncture / Unknown 12/02/2024 5:04 AM EDT 12/02/2024 5:11 AM EDT [employer] [facility] CHEMISTRY ORDERABLES Final Result Performing Organization Address [facility] Co de Phone Number [facility] [address] [place] [address] , [place] [address] * CREATININE BODY FLUID (12/02/2024 4:12 AM EDT) Creatinine BF 1.15 0.67 - 1.30 mg/dL 12/02/2024 5:03 AM EDT [facility] Body Fluid ABDOMEN / Unknown Collection / Unknown 12/02/2024 4:12 AM EDT 12/02/2024 4:29 AM EDT Narrative [facility] - 12/02/2024 5:03 AM EDT A reference interval for this test has not been established for body fluid specimens. The reference range listed reflects normal concentration of this analyte in blood. Sadi Haney MD BODY FLUIDS AND STOOLS OR DERABLES Final Result [facility] [employer] [address] [facility] , [place] [address] * (ABNORMAL) CBC WITH DIFF (12/02/2024 3:47 AM EDT) WBC 21.8(H) 3.7 - 10.3 x10(3)/mc L 12/02/2024 4:21 AM EDT [facility] RBC 3.37(L) 4.60 - 6.10 x10(6)/mc L [...] 12/02/2024 4:21 AM EDT [facility] [place] Percent 10.4 % 12/02/2024 4:21 AM EDT [facility] Eos Percent 0.1 % 12/02/2024 4:21 AM EDT [facility] Baso Percent 0.1 % 12/02/2024 4:21 AM EDT [facility] Neut # 17.9(H) 1.6 - 6.1 x10(3)/mc L 12/02/2024 4:21 AM EDT [facility] Comment:Neutrophils equals s egs plus bands IMMGRAN# 0.2(H) 0.0 - 0.1 x10(3)/mc L 12/02/2024 4:21 AM EDT [facility] Comment:Automated count of m etamyelocytes, myelocytes and promyelocytes. An absolute IG <0.1 is reported as 0.0. Lymph # 1.4 1.2 - 3.9 x10(3)/mc L 12/02/2024 4:21 AM EDT [facility] [facility] [place] # 2.3(H) 0.3 - 0.9 x10(3)/mc L 12/02/2024 4:21 AM EDT [facility] Eos# 0.0 0.0 - 0.5 x10(3)/mc L 12/02/2024 4:21 AM EDT [facility] Baso # 0.0 0.0 - 0.1 x10(3)/mc L 12/02/2024 4:21 AM EDT [facility] RBC Morph Consistent with Red Cell Indices no units 12/02/2024 4:21 AM EDT [facility] Blood VENOUS BLOOD / Unknown Venipuncture / Unknown 12/02/2024 3:47 AM EDT 12/02/2024 3:50 AM EDT us Sadi Haney MD HEMATOLOGY ORDERABLES Fin al Result [facility] [address] [facility] , [address] [place] [id number] * (ABNORMAL) BASIC METABOLIC PANEL (12/02/2024 3:46 AM EDT) Sodium 136 136 - 145 mmol/L 12/02/2024 4:07 AM EDT [facility] Potassium 4.8 3.5 - 5.0 mmol/L 12/02/2024 4:07 AM EDT [facility] Chloride 103 98 - 107 mmol/L 12/02/2024 4:07 AM EDT [facility] Total CO2 17(L) 22 - 29 mmol/L 12/02/2024 4:07 AM EDT [facility] Anion Gap 16 7 - 16 mmol/L 12/02/2024 4:07 AM EDT [facility] Calcium 8.0(L) 8.6 - 10.4 mg/dL 12/02/2024 4:07 AM EDT [facility] Glucose Lvl 156(H) 70 - 99 mg/dL 12/02/2024 4:07 AM EDT [facility] BUN 21(H) 6 - 20 mg/dL 12/02/2024 4:07 AM EDT [facility] Creatinine 1.61(H) 0.67 - 1.30 mg/dL 12/02/2024 4:07 AM EDT [facility] eGFR (CKD-EPIcr 2020) 52(L) >=60 mL/min/1.7 3 m2 12/02/2024 4:07 AM EDT [facility] Comment:Estimated GFR was ca lculated using the CKD-EPIcr (2020) equation refit without race. The equation is recommended by the National Kid[employer] Foundation - [place] [employer] of Nephrology Task Force. Blood VENOUS BLOOD / Unknown Venipuncture / Unknown 12/02/2024 3:46 AM EDT 12/02/2024 3:50 AM EDT us Peace Rea APRN CHEMISTRY ORDERABLES Nadiya l Result [facility] [address] [place] [address] * (ABNORMAL) GLUCOSE METER POC (12/02/2024 2:58 AM EDT) Glucose Meter POC 148(H) 70 - 100 mg/dL 12/02/2024 3:00 AM EDT [facility] Sample Type Capillary 12/02/2024 3:00 AM EDT [facility] Patient Status Non-Critical Patient 12/02/2024 3:00 AM EDT [facility] Blood BLOOD SPECIMEN / Unknown 12/02/2024 2:58 AM EDT 12/02/2024 3:00 AM EDT Sadi Haney MD POINT OF CARE TEST ORDERA BLES Final Result [facility] [address] [place], [place] [id number] * PATHOLOGY TISSUE REQUEST (12/01/2024 3:36 PM EDT) CASE REPORT Surgical Pathology Case: [id number] Authorizing Provider: Sadi Haney MD Collected: 12/01/2024 1536 Ordering Location: [facility] Received: 12/01/2024 1631 Pathologist: Gayle Bahena MD Specimen: Kidney, Left, Left kidney and ureter,along with bladder cuff 12/05/2024 4:20 PM EDT [facility] FINAL DIAGNOSIS Kidney and ureter, left radical nephroureterectomy with bladder cuff: - Ureter: - Noninvasive low-grade papillary urothelial carcinoma, 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 - Resection margins negative for carcinoma - Kidney and bladder cuff with chronic inflammation, negative for carcinoma. - Adrenal gland negative for carcinoma. - See synoptic report for details. 12/05/2024 4:20 PM EDT [facility] at 1620 EDT GROSS DESCRIPTION [...] 0.5 to 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 Animal Health Technician sections are submitted as follows: A1-A3 = entire mass at UPJ to include adjacent uninvolved proximal ureter A4 = remaining proximal ureter A5-A6 = field support representative dilated calyces A7-A8 equal all distal ureter with perpendicular bladder margin A9 = vascular margins from kidney A10 = all areas suggestive of adrenal parenchyma A11 = 1 bisected lymph node candidate A12 = 1 trisected lymph node candidate A13-A14 = largest lymph node candidate, trisected RIK Stover PA (ASCP) 12/05/2024 4:[address] [facility] MICROSCOPIC DESCRIPTION The microscopic examination may have been rendered in whole, or in part, by analyzing high-resolution digital images (whole slide images) on the [employer] IIra Digital Pathology platform validated at [facility]. 12/05/2024 4:20 PM EDT [facility] BEST TISSUE BLOCK FOR ANCILLARY STUDIES A3 12/05/2024 4:20 PM T [facility] SYNOPTIC REPORT CHECKLIST URETER, RENAL [...] limited to this pathology report. pT Category: computer aided design designer pN Category: pN not assigned (no nodes submitted or found) ADDITIONAL FINDINGS Pathologic Findings in Ipsilateral Nonneoplastic Renal Tissue: None identified 12/05/2024 4:20 PM EDT [facility] EMBEDDED IMAGES 12/05/2024 4:20 PM EDT [facility] Tissue LEFT KIDNEY STRUCTURE / Unknown 12/01/2024 3:36 PM EDT 12/01/2024 4:31 PM EDT Sadi Haney MD PATHOLOGY ORDERABLES Nadiya l Result [facility] [address], [place] [id number] [place] [address] * US ANES GUIDANCE FOR POC (12/01/2024 9:47 AM EDT) Narrative Genericuser, Audit - 12/01/2024 9:47 AM EDT Ultrasound guided nerve block performed by Anesthesiologist The study image(s) are for reference only and will not be interpreted by a Radiologist. Refer to the Anesthesia procedure note for image description and procedure details. us Jorge Alberto Hoang MD IMG US ORDERABLES Final Resu lt * BB HISTORY CHECK (12/01/2024 9:22 AM EDT) BB HISTORY CHECK (1) Previous History OK 12/01/2024 9:30 AM EDT [facility] Blood VENOUS BLOOD / Unknown Venipuncture / Unknown 12/01/2024 9:22 AM EDT 12/01/2024 9:26 AM EDT Sadi Haney MD BLOOD BANK ORDERABLES Fin al Result Performing Organization Address City/[facility]/ZIP Co de Phone Number [facility] [place] [address] * ABORH (12/01/2024 9:22 AM EDT) ABORH Int B POS 12/01/2024 9:5 7 AM EDT [facility] Blood VENOUS BLOOD / Unknown Venipuncture / Unknown 12/01/2024 9:22 AM EDT 12/01/2024 9:26 AM EDT Sadi Haney MD BLOOD BANK ORDERABLES Fin al Result Performing Organization Address City/[facility]/[place] [address] * RED BLOOD CELLS REQUEST (11/23/2024 2:10 PM EDT) Product Code [id number] [facility] B[facility]OD BANK Unit Number [id number] [facility] Crossmatch Interp Compatible [facility] Dispense Status TRANSFUSED [facility] Blood Expiration Date [id number] [facility] ISBT 128 Type 7300 [facility] BLOOD [facility] Blood Unit Volume 300 ml [facility] BA CODING SYSTEM [id number] [facility] Blood Type (Unit) B POS [facility] Blood 11/23/2024 2:10 PM EDT 11/23/2024 2:17 PM EDT Peace Rea MANUFACTURING TECHNOLOGY PROFESSOR BLOOD PRODUCT ORDERS Nadiya l Result Performing Organization Address [facility] de Phone Number [facility] [address] [address] * RED BLOOD CELLS REQUEST (11/23/2024 2:10 PM EDT) Product Code [id number] [facility] BLOOD BANK Unit Number [id number] [facility] Crossmatch Interp Compatible [facility] Dispense Status TRANSFUSED [facility] Blood Expiration Date [facility] ISBT 128 Type 7300 [facility]OD [facility] Blood Unit Volume 300 ml [facility] BA CODING SYSTEM [id number] [facility] Blood Type (Unit) B POS [facility] Product Code [id number] [facility] BLOOD BANK Unit Number [id number] [facility] Crossmatch Interp Compatible [facility] Dispense Status TRANSFUSED [facility] Blood Expiration Date [facility] ISBT 128 Type 7300 [facility]OD [facility]ANK Blood Unit Volume 300 ml [facility] BA CODING SYSTEM [id number] [facility] Blood Type (Unit) B POS [facility] Blood 11/23/2024 2:10 PM EDT 11/23/2024 2:17 PM EDT Sadi Haney MD BLOOD PRODUCT ORDERS Nadiya l Result Performing Organization Address [facility] Co de Phone Number [facility] [address] [address] documented in this encounter Visit Diagnoses Diagnosis Ureteral mass- Primary Unspecified disorder of kidney and ureter Preop testing Preoperative examination, unspecified 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 Sepsis without acute [...] Intravenous, at 125 mL/hr, CONTINUOUS, Starting on Wed12/01/24 at 1730, Until 12/02/24 at 1729, Post-op [...] Oral, EVERY 6 HOURS PRN, Starting on 12/02/24 at 1406, Until Tu12/05/24 at 2135, Pain, [...] 30 mL, Oral, ONCE, 1 dose, On Wed12/02/24 at 2100, Viscous lidocaine is currently on [...] Code = BLACK [employer] cefTRIAXone in dextrose (ROCEPHIN) [...] 1 g, Intravenous, ONCE, 1 dose, On 12/02/24 at 1345, Administer over 30 Minutes, Reason [...] Urethral, ONCE PRN, 1 dose, Starting on Wed12/07/24 at 1100, Until Wed12/07/24 at 1100, Radiology Procedure, XRay/Fluoro (Contrasts) Given [...] 40 mg, Oral, DAILY, First dose on Amelia 12/07/24 at 0000, Until Discontinued Given 12/06/2024 10:53 PM EDT 40 mg heparin (porcine) injection 5,000 Units 5,000 Units, Subcutaneous, ONCE PREPROCEDURE, 1 dose, On Wed12/01/24 at 0900 Given 12/01/2024 9:22 AM EDT 5,000 Units Abdominal Tissue HYDROmorphone (DILAUDID) injection 0.5 mg 0.5 mg, Intravenous, EVERY 10 MIN PRN, 4 doses, Starting on Wed12/01/24 at 1558, Until Wed12/01/24 at 1819, Breakthrough Pain, Do not exceed 2 mg [...] Intravenous, ONCE PRN, 1 dose, Starting on 12/02/24 at 2020, Until 12/02/24 at 2021, Radiography/Imaging, Radiology Procedure, VESICANT , CT (Contrasts) Given 12/02/2024 8:22 PM EDT 100 mL lactated ringers infusion Intravenous, at 50 mL/hr, PREPROCEDURE CONTINUOUS, Starting on Amelia 11/30/24 at 0816, Until Wed12/01/24 at 1819, To be given in SDS/Pre-op Holding Area, [...] phenoL (CHLORASEPTIC) 1.4 % oral spray 1 Cary 1 Cary, Oral, EVERY 2 HOURS PRN, Starting on Wed12/04/24 at 2110, Until Wed12/08/24 at 1550, Sore Throat Given 12/04/2024 9:58 PM EDT 1 Cary Saccharomyces boulardii (FLORASTOR) capsule 250 mg 250 mg, Oral, 2 TIMES DAILY, First dose on Wed12/05/24 at 2315, Until Discontinued, If for feeding tube administration, open capsule/packet outside of patient's room and dissolve contents in 8-12 oz. of liquid Given 12/08/2024 8:04 AM EDT 250 mg sodium chloride 0.9 % 1,000 mL IV bolus Intravenous, ONCE, 1 dose, On Wed12/02/24 at 0600, at 1,935.5 mL/hr Rate/Dose Change [...] on Wed12/06/24 at 2145, Last dose on 12/16/24 at 1700, Reason for Therapy: Infection Documented, Indication: Clostridium difficile Given 12/08/2024 8:05 AM EDT 125 mg documented in this encounter Active and Recently Administered Medications Times are shown in EDT. Scheduled Medication Order 12/06/2024 12/07/2024 12/08/2024 aspirin EC tablet 81 mg 81 mg, Oral, DAILY, First dose (after last modification) on Amelia 12/07/24 at 1045, Until Discontinued, Post-op 09 (Given - Provider: Margie Diaz LPN) 803 (Given - Provider: Margie Diaz LPN) atorvastatin (LIPITOR) tablet 80 mg 80 mg, Oral, NIGHTLY, First dose (after last modification) on Wed12/05/24 at 2100, Until Discontinued, Post-op 2220 (Given - Provider: Zeinab Deutsch RN) 2100 [...] 0842 (IV Started - Provider: Yessy Oreilly RN)0912 (IV Stopped by Other - Provider: Cheyanne Tripp RN)0958 (IV Stopped by Other - Provider: Cheyanne Tripp RN) cefUROXime (CEFTIN) tablet 500 mg 500 mg, Oral, EVERY 12 HOURS SCHEDULED (2 times per day), 10 doses, First dose on Wed12/06/24 at 1130, Last dose on Wed12/10/24 at 2100, Reason for Therapy: Infection Suspected, Indication: Pneumonia 1135 (Given - Provider: Yessy rOeilly RN)222 (Given - Provider: Zeinab Deutsch RN) 08 (Given - Provider: Margie Diaz LPN)2100 (Given [...] dose on Wed12/07/24 at 0000, Until Discontinued 225 (Given - Provider: Zeinab Deutsch RN) 08 (Not Given - Provider: Margie Diaz LPN [...] - Provider: Zeinab Deutsch RN - Comment: MD verified new patch applied d/t previous one [...] Deutsch RN) 0543 (Given - Provider: Virginia Landis, LAY) Saccharomyces boulardii (FLORASTOR) capsule 250 mg 250 mg, Oral, 2 TIMES DAILY, First dose on Wed12/05/24 at 2315, Until Discontinued, If for feeding tube administration, open capsule/packet outside of patient's room and dissolve contents in 8-12 oz. of liquid 0834 (Given - Provider: Yessy Oreilly RN)2221 (Given - Provider: Zeinab Deutsch RN) 0832 (Given - Provider: Margie Diaz LPN)2101 (Given - Provider: Virginia Landis RN) 0804 (Given - Provider: Margie Diaz LPN) sodium chloride 0.9% syringe Intravenous, EVERY 12 HOURS SCHEDULED (2 times per day), First dose on Wed12/05/24 at 1000, Until Discontinued, Flush with 3-5 mL saline for PERIPHERAL saline lock maintenance. 0838 (Given - Provider: Yessy Oreilly RN)2221 (Given - Provider: Zeinab Deutsch RN) 0835 (Given - Provider: Margie Diaz LPN)2115 (Given - Provider: Virginia Landis RN) 0900 [...] RN)1736 (See Alternative - Provider: Yessy Oreilly RN)2252 (See Alternative - Provider: Zeinab Deutsch RN) 0517 (See Alternative - Provider: Zeinab Deutsch RN)1003 (See Alternative - Provider: Margie Diaz LPN)2100 (See Alternative - Provider: Virginia Landis RN) 0542 (See Alternative - Provider: Virginia Landis RN) acetaminophen (TYLENOL) tablet 650 mg(Linked Group 2) 650 mg, Oral, EVERY 4 HOURS PRN, Starting on Wed12/01/24 at 1851, Until Wed12/08/24 at 1550, Fever, Maximum adult dose of acetaminophen is 4000 mg from all sources in 24 hours., Post-op 05 (Given - Provider: Zeinab Deutsch RN)173 (Given - Provider: Yessy Oreilly RN)2252 (Given - Provider: Zeinab Deutsch RN) 05 (Given - Provider: Zeinab Deutsch RN)1003 (Given - Provider: Margie Diaz LPN)2100 (Given - Provider: Virginia Landis RN) 0542 (Given - Provider: Virginia Landis RN) benzocaine-menthoL (CEPACOL SORE THROAT) 15-3.6 mg 1 Lozenge(Linked Group 3) 1 Lozenge, Oral, EVERY 2 HOURS PRN, Starting on Wed12/04/24 at 2110, Until Wed12/08/24 at 1550, Sore Throat, Waste Sort Code = [employer] Waste Container diatrizoate meglumine (HYPAQUE) 30 % solution 175 mL (COMPLETED) 175 mL, Urethral, ONCE PRN, 1 dose, Starting on Amelia 12/07/24 at 1100, Until Wed12/07/24 at 1100, Radiology Procedure, XRay/Fluoro (Contrasts) 1100 [...] 0834 (See Alternative - Provider: Yessy Oreilly RN)181 (See Alternative - Provider: Margie Salguero RN)2252 (See Alternative - Provider: Zeinab Deutsch, LAY) ondansetron (ZOFRAN) tablet 4 mg(Linked Group 6) 4 mg, Oral, EVERY 4 HOURS PRN, Starting on Wed12/01/24 at 1851, Until Wed12/08/24 at 1550, Nausea, Vomiting, Post-op 0834 (Given - Provider: Yessy Oreilly RN)1815 (Given - Provider: Margie Salguero RN)2252 (Given - Provider: Zeinab Deutsch RN) oxyCODONE [...] phenoL (CHLORASEPTIC) 1.4 % oral spray 1 Cary(Linked Group 3) 1 Cary, Oral, EVERY 2 HOURS PRN, Starting on [...] oral spray 1 SprayJump to med 1 Cary, Oral, EVERY 2 HOURS PRN, Starting on Wed12/04/24 at 2110, Until Wed12/08/24 at 1550, Sore Throat Or benzocaine-menthoL (CEPACOL SORE THROAT) 15-3.6 mg 1 LozengeJump to med 1 Lozenge, Oral, EVERY 2 HOURS PRN, Starting on Wed12/04/24 at 2110, Until Wed12/08/24 at 1550, Sore Throat, Waste Sort Code = BLACK [employer] Waste Container Group 4: diphenhydrAMINE (BENADRYL) [...] Orde red Date NURSING COMMUNICATION 3 12/06/20242024 MECH VTE PROPH NON-CANDIDATE 1 12/02/2024 PHARM VTE [...] documented as of this encounter Care Teams Drying Equipment Operator Relationship Specialty Start Date End Date Reyna Perez APRN [address] [facility] [address] [place] [id number] PCP - General Nurse Practitioner 10/27/24 documented as of this encounter
--- OUTSIDE RECORDS SUMMARY | 2024-12-01 09:50 | XMS_ITS | Encounter Summary ---
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] Procedures SD LAPAROSCOPY RADICAL NEPHRECTOMY SD CYSTOURETHROSCOPY W/DEST &/RMVL MED BLADDER EMERY SD LAPAROSCOPY NEPHRECTOMY W/TOTAL URETERECTOMY LEFT DAVINCI ROBOTIC NEPHROURETERECTOMY, CYSTOSCOPY, TRANSURETHRAL RESECTION OF THE BLADDER TUMOR Referral ID Status Reason Start Date Expiration Date Visits Re quested Visits Authorized [id number] 1 1 Encounter Details Date Type Department Care Team (Late st Contact Info) Description 12/01/2024 9:50 AM EDT Ancillary Procedure EDG SAME DAY SURGERY [facility] [place] [address] Sadi Haney MD [address] [facility] [address] [place], [place] [phone] Social History Tobacco Use Types Packs/Day Years [...] Author No Risk 12/01/2024 8:11 PM EDT Viir Segura RN * [place] Suicide Severity Rating Scale (Q shift for [...] Description 01/23/2025 9:00 AM EDT Office Visit [facility] Cardiac Surgeons [address] [place] [address] Logan Kenny MD [address] [place] [address] [place] [address] documented as of this encounter Procedures [...] on filedocumented in this encounter Care Teams Rubber Extrusion Machine Operator Relationship Specialty Start Date End Date Reyna Perez APRN [address] [place] [address] [address] [place] [phone] PCP - General Nurse Practitioner 10/27/24 documented as of this encounter
--- OUTSIDE RECORDS SUMMARY | 2024-12-01 10:35 | XMS_ITS | Encounter Summary ---
Author [place] [address] Care Team Providers Care Rail Transportation Tabeler Name Role Phone Reyna Perez Jonathan ROMO Primary Care Provider [phone] Reason for Visit * Auth/Cert/Inpt Specialty Diagnoses [...] Expiration Date Visits Re quested Visits Authorized [id number] 1 1 Encounter Details Date Type Department Care Team (Latest Contact Info) Description 12/01/2024 10:35 AM EDT - 12/01/2024 4:50 PM EDT Surgery EDG PERIOP [facility] [place] [address] Sadi Haney MD [address] [facility] [address] [place] [id number] DAVINCI ROBOTIC NEPHROURETERECTOMY Surgery Details Date/Time [...] 3:23 AM EDT Tommy Lugo RN * [place] Suicide Severity Rating Scale (Q shift for [...] Physician Discharge Summary Patient ID: Alex Hoffman [id number] 49 y.o. 1975 Admit date: 12/01/2024 Discharge [...] Your Medications These medications were sent to [facility] [address] [facility] [place] [address] Hours: Wednesday-Wednesday 8:00am - 6:30pm traMADoL 50 mg Tab You can get these medications from any pharmacy You don't need a prescription for these medications acetaminophen 325 mg Tab Sadi Haney MD [address] [facility] [address] [facility] [id number] Follow up in 2 week(s) follow up with Logan Montana MD [address] [facility] [address] [place] [id number] Follow up in 2 week(s) To discuss re-intation of antiplatelet therapy and further CTS w/u Reyna Perez APRN [address] [facility] [address] [facility] [address] Follow up in 1 week(s) [...] UNABLE TO REACH YOUR UROLOGIST OR UROLOGIST SAND CARRIER, YOU SHOULD GO TO A NEARBY EMERGENCY [...] 24 hours a day, please call the [facility] urology department * Attachments The following attachments cannot be sent through Care Everywhere. * How to use an incentive spirometer (Malian) * Nephrectomy ??? Discharge instructions (Malian) * How to take anticoagulants safely (Malian) * Vancomycin (Malian) * Cefuroxime (Malian) documented in this encounter Medications at Time [...] AM EDT Discharge Medication Delivery Service DMD infrastructure technician has delivered the following medications for Alex Hoffman: Rx#[id number]:TRAMADOL 50 MG TABLET-50 mg EVERY 6 HOURS PRN Rx#[id number]:TOLTERODINE ER 4 MG CAPSULE,EXTENDED RELEASE 24 HR-4 mg DAILY Rx#[id number]:CEFUROXIME AXETIL 500 MG TABLET-500 mg EVERY 12 HOURS SCHEDULED Rx#[id number]:HYDROXYZINE PAMOATE 25 MG CAPSULE-25 mg EVERY 8 HOURS PRN Rx#[id number]:VANCOMYCIN 125 MG CAPSULE-125 mg 4 TIMES DAILY Date/Time of Delivery: 12/08/2024 11:35 AM Delivered to: Room 7308 Placed med bag on tray table. Please contact DMD infrastructure technician with any questions. Thanks! 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 [...] from the original note were not included. 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 [...] PT Subjective Note Type Discharge Patient Room/Unit 9034 Discharge Information Discharge complete, please see discharge summary report for further information including most recently documented activity level Clinical Course pt obsesrved to be amb numerous laps in [facility]. therapy will sign off at thistimes Plan PT Frequency Complete Cosigned by Jennifer Santamaria PT at 12/07/2024 11:18 AM EDT Associated attestation - Jennifer Santamaria PT - 12/07/2024 11:18 AM EDT I agree with the FACILITIES TECHNICIAN documentation. * Peace Rea KathyDEMETRIUS - 12/07/2024 6:58 AM EDT Images from the original note were not included. 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 Cognition Orientation Intact Arousal Normal Safety [...] -- Restart toprol 25mg QD today - FACILITIES TECHNICIAN Lasix 40gm QD, losartan 50mg QD, Toprol 25mg QD (on hold) Anemia - Hgb 10.2>7.5>8.1>7.9>7.3>8.2>8.9>8.4>9.4>8.7 - s/p 2 U PRBC's 12/03 and 1 U PRBC 12/04 CAD - EKG SR no acute ischemia appreciated - Trops > - Denies chest pain/ diaphoresis/ nausea - FACILITIES TECHNICIAN Effient, ASA, Statin, Toprol - Echo 10/2024: [...] Steps 2 Home Equipment None;Mobilized without AD FACILITIES TECHNICIAN Level of Assistance Independent with ADLs ;Independent with functional transfers;Ambulatory in home;Ambulatory in the community Lives With Spouse Fall History No falls in the last three months Additional Comments 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 [facility] Urology Urology Progress Note Hospital Day: 6 [...] from the original note were not included. 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 [...] to restart- no doses yet 12/04 - FACILITIES TECHNICIAN Lasix 40gm QD, losartan 50mg QD, Toprol 25mg QD (on hold) Anemia - Hgb 10.2>7.5>8.1>7.9>7.3>8.2>8.9>8.4 - s/p 2 U PRBC's 12/03 and 1 U PRBC 12/04 CAD - EKG SR no acute ischemia appreciated - Trops > - Denies chest pain/ diaphoresis/ nausea - FACILITIES TECHNICIAN Effient, ASA, Statin, Toprol - Echo 10/2024: [...] - Will discuss bASA plans with attending quantitative developer - on hold currently last dose 12/04. [...] bedside. PCI in September. Working towards CABG. FACILITIES TECHNICIAN Effient and bASA. Currently holding both. Recommend resumption bASA as soon as cleared by Urology. BP controlled on current regimen. Hgb trend better today. Will follow tomorrow. * Peace Rea APRN - 12/05/2024 8:01 AM EDT Images from the original note were not included. [facility] Urology Progress Note Hospital Day: [...] from the original note were not included. [facility] Urology Urology Progress Note Hospital Day: 4 [...] Pt admitted with Ureteral Mass, pt has [place] insurance. Note pt is alert and oriented x4. CC met with pt and Tessy at bedside and introduced self and role. Pt states he lives in a 1 story home with 2 steps to enter, ptstates he lives with his Tessy. PCP is Reyna Perez. Pt states he uses [facility] in [place]. Pt states he has concerns with affordability of medications, food, transportation, utilities, and other bills, CC provided resources Pt Toolkit and other resources. Pt states he was independent with ADL???s prior to admission. DME none, HHC pt states he has never been active with HH. Pt states he normally transports via his personal vehicle. Pt states he will transport via his Tessy at [place]. Pt identified his Tessy as his d/c planning support person. SDOH screen completed. Thereare no DC needs requested or identified at this time. CC following. Completed by CC/SW Yes Care Coordination Assessment Mental Status Alert and oriented Does patient need translator/interpreter? No Decision Maker Patient Activities of Daily [...] or connection with God Interventions with Patient Gnosticist Interventions Prayer with patient or family Outcomes Expressed Outcomes Appreciative of visit Care Plan Plan for Follow-Up Window Dresser(s) will continue to follow throughout admission Carolyn [...] to restart- no doses yet 12/04 - FACILITIES TECHNICIAN Lasix 40gm QD, losartan 50mg QD, Toprol 25mg QD (on hold) Anemia - Hgb 10.2>7.5>8.1>7.9>7.3 - s/p 2 U PRBC's 12/03 and 1 U PRBC 12/04 CAD - EKG SR no acute ischemia appreciated - Trops 27> 26 - Denies chest pain/ diaphoresis/ nausea - FACILITIES TECHNICIAN Effient, ASA, Statin, Toprol - Echo 10/2024: [...] - Will discuss bASA plans with attending quantitative developer - on hold currently last dose today [...] AM EDTAssociated Problem(s): 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 Plan [...] with bloody output. 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 Plan [...] from the original note were not included. [facility] Urology Urology Progress Note Hospital Day: 4 [...] hb was 8.2 Stopped bASA after d/w quantitative developer Plan: Hold bASA DAMIEN off suction Check [...] from the original note were not included. 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 [facility] Urology Urology Progress Note Hospital Day: 3 [...] from the original note were not included. [facility] Urology Urology Progress Note Hospital Day: [...] and relaxation without help. Message sent to transportation supervisor and 1x dose valium ordered. 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 [facility] U[facility] [...] Rogers APRN - 12/01/2024 8:50 AM EDT [facility] History and Physical Name: Alex Hoffman ADDRESS: [address] [place] [address] [place] [address] : 1975 AGE: 49 y.o. ASSESSMENT: Ureteral [...] disease) Heartburn Hyperlipidemia Hypertension Kidney mass left [place]V (myocardial infarction) (HCC) 09/17/2024 Motion sickness Past Surgical History: Procedure Laterality Date CARDIAC CATHETERIZATION CORONARY ANGIOPLASTY WITH STENT PLACEMENT Sep 19 2022 CYSTOSCOPY 10/27/2024 Surgeon: Patricia Ellison MD; Location: [facility]; Service: Urology Prior to Admission [...] left radical nephroureterectomy. SURGEON Sadi Haney MD WATCH GUARD GATE See OR record ANESTHESIS General. ESTIMATED BLOOD LOSS 100 mL. DRAINS 10 mm DAMIEN. TUBES 22 Gambian Bradford catheter. COMPLICATIONS None. POSTOPERATIVE CONDITION Good. [...] in the midclavicular line. A 12 mm cafe assistant port was placed above the umbilicus. A 5 mm port for the cafe assistant was placed below the xiphoid process. [...] Hoffman 1 PCP: Reyna Perez APRN Primary Ship Joiner: None on file I would like to [...] disease) Heartburn Hyperlipidemia Hypertension Kidney mass left WV (myocardial infarction) (HCC) 09/17/2024 Motion sickness FACILITIES TECHNICIAN Medications: Prior to Admission medications Medication Sig [...] PLACEMENT Sep 19 2022 CYSTOSCOPY 10/27/2024 Surgeon: Ptaricia Ellison MD; Location: [facility]; Service: Urology Allergy No [...] most recent cardiovascular imaging studies available in [facility] EMR were reviewed at time of [...] no acute ischemia appreciated -Trops -ASA/ Statin group captain -Denies chest pain/ diaphoresis/ nausea Hypotension [...] 4. Pneumonia. Per primary. Bear Samuel MD, [facility] 12/02/2024 6:11 PM * Meng Chen [...] disease) Heartburn Hyperlipidemia Hypertension Kidney mass left [place]V (myocardial infarction) (HCC) 09/17/2024 Motion sickness Past Surgical History: Procedure Laterality Date CARDIAC CATHETERIZATION CORONARY ANGIOPLASTY WITH STENT PLACEMENT Sep 19 2022 CYSTOSCOPY 10/27/2024 Surgeon: Patricia Ellison MD; Location: [facility] OR; Service: Urology No Known Allergies [...] mg, 12.5-25 mg, Intravenous, Q6H PRN, Sadi Haeny MD fUROsemide (LASix) tablet 40 mg, 40 [...] left ureter (HCC) Coronary artery disease of ak chin artery of ak chin heart with stable angina pectoris Assessment and Plan Assessment & Plan 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 Plan per urology, follow path Coronary artery disease of ak chin artery of ak chin heart with stable angina pectoris - diffuse [...] MD FOR: AK LAPAROSCOPY NEPHRECTOMY W/TOTAL URETERECTOMY [84606] (LEFT DAVINCI ROBOTIC NEPHROURETERECTOMY, CYSTOSCOPY, TRANSURETHRAL RESECTION OF THE BLADDER TUMOR) AK LAPAROSCOPY RADICAL NEPHRECTOMY [88318] AK CYSTOURETHROSCOPY W/DEST &/RMVL MED BLADDER EMERY [27248] THE ANESTHESIA DEPARTMENT IS REQUESTING A CLEARANCE RELATED TO: Recent PCI. Also surgeons is requesting if blood thinner can be held ? Anesthesia type:General PLEASE RESPOND TO THIS ENCOUNTER OR CALL WITH ANY QUESTIONS/CONCERNS PHONE: [phone] Thank You [facility] PRE-ADMISSION TESTING DEPARTMENT * Shoshana Rankin RN - 11/23/2024 2:24 PM EDT REPORTS REQUEST ATTENTION:Reyna Perez PATIENT: Alex Hoffman : 1975 This patient is scheduled for surgery on 12/01/2024 with Sadi Khoury MD Anesthesia has requested the most recent results of the following tests: Most recent office visit note and any recent testing COMMENTS:__Thanks! Please fax to Pre-admission testing. PHONE # [phone] ATTENTION: [address] [id number] documented in this encounter Miscellaneous Notes * Utilization Review Notes - Gala Powell LPN - 12/08/2024 11:29 AM EDT DISCHARGED HOME ON 12/08/24 FOLLOW UP WITH Sadi Haney MD [address] [facility] [address] [facility] [address] Follow up in 2 week(s) follow up with Logan Montana MD [address] [facility] [place] [id number] Follow up in 2 week(s) To discuss re-intation of antiplatelet therapy and further CTS w/u Reyna Perez APRN [address] [facility] [address] [facility] [address] Follow up in 1 week(s) Hospital follow up, recheck CBC next week with PCP prior to restarting blood thinner * Query Response Document - Juana Shoemaker MD - 12/08/2024 11:29 AM EDT [facility] CDI / HIM Coding Query Documentation PATIENT: ALEX HOFFMAN : 1975 ADMIT DATE: 12/01/2024 8:38 AM DISCH DATE: 12/08/2024 11:29 AM RESPONDING PROVIDER #: [id number] PROVIDER QUERY RESPONSE TEXT: Severe Sepsis POA [...] any questions, please contact Rodriguez Gabriel @ [phone]) Options provided: -- Severe Sepsis POA -- [...] stools improved. C-diff +, PO Vanc started. ADMIEN in place, 15 ml output this AM. [...] from the original note were not included. 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 [...] to restart- no doses yet 12/04 - FACILITIES TECHNICIAN Lasix 40gm QD, losartan 50mg QD, Toprol 25mg QD (on hold) Anemia - Hgb 10.2>7.5>8.1>7.9>7.3 - s/p 2 U PRBC's 12/03 and 1 U PRBC 12/04 CAD - EKG SR no acute ischemia appreciated - Trops > - Denies chest pain/ diaphoresis/ nausea - FACILITIES TECHNICIAN Effient, ASA, Statin, Toprol - Echo 10/2024: [...] - Will discuss bASA plans with attending quantitative developer - on hold currently last dose today [...] urology, follow path Coronary artery disease of ak chin artery of ak chin heart with stable angina pectoris - diffuse [...] Description 01/23/2025 9:00 AM EDT Office Visit [facility] Cardiac Surgeons [address] [place] [phone] Logan Kenny MD [address] [place] [address] Pending Results Name Type Priority Associated [...] Hoffman 1 PCP: Reyna Perez APRN Primary Ship Joiner: None on file I would like to [...] disease) Heartburn Hyperlipidemia Hypertension Kidney mass left WV (myocardial infarction) (HCC) 09/17/2024 Motion sickness FACILITIES TECHNICIAN Medications: Prior to Admission medications Medication Sig [...] Surgeon: Patricia Ellison MD; Location: [facility]; Service: Urology Allergy No Known Allergies Patient Active Problem List Diagnosis ASHD (arteriosclerotic heart disease) 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) BP 118/53 (BP Location: Right arm) Pulse 103 Temp 98 F (36.7 C)(Oral) Resp 18 Ht 5' 8 (1.727 m) Wt 243 lb (110.2 kg) QhO166% BMI 36.95 kg/m I/O 24 hours: Intake/Output Summary (Last 24 hours) at 12/02/2024 1156 Last data filed at 12/02/2024 1154 Gross per 24 hour Intake 7111.22 ml Output 1360 ml Net 5751.22 ml Diagnostic tests The most recent cardiovascular imaging studies available in [facility] EMR werereviewed at time of consultation [...] no acute ischemia appreciated -Trops -ASA/ Statin group captain -Denies chest pain/ diaphoresis/ nausea Hypotension [...] xray Further input from Dr. Lizzie Hinkle, DIGITAL MEDIA DESIGNER Heart and Vascular 12/02/2024 Disposition Perspective - [...] disease) Heartburn Hyperlipidemia Hypertension Kidney mass left [place]V (myocardial infarction) (HCC) 09/17/2024 Motion sickness Past Surgical History: Procedure Laterality Date CARDIAC CATHETERIZATION CORONARY ANGIOPLASTY WITH STENT PLACEMENT Sep 19 2022 CYSTOSCOPY 10/27/2024 Surgeon: Patricia Ellison MD; Location: [facility]; Service: Urology No Known Allergies [...] left ureter (HCC) Coronary artery disease of ak chin artery of ak chin heart with stableangina pectoris Assessment and Plan Assessment & Plan 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 Planper urology, follow path Coronary artery disease of ak chin artery of ak chin heart with stableangina pectoris - diffuse severe [...] ESU, CYSTO FIRST, KCDR HAJ-HAMED ASSISTINGsk AK CYSTOURETHROSCOPY W/DEST &/RMVL MED BLADDER EMERY 12/01/2024 11:21 AM EDT Ureteral mass Special Needs LASSITER KNIFE, HANG WATER, OLYMPUS ESU, CYSTO FIRST, KCDR HAJ-HAMED ASSISTINGsk AK LAPAROSCOPY RADICAL NEPHRECTOMY 12/01/2024 11:21 [...] CBC WITH DIFF (12/08/2024 6:02 AM EDT) [facility] WBC 9.4 3.7 - 10.3 x10(3)/mcL 12/08/2024 6:48 AM EDT [facility] RBC 3.12(L) 4.60 - 6.10 x10(6)/mcL 12/08/2024 6:48 AM EDT [facility] Hgb 9.3(L) 13.7 - 17.5 g/dL 12/08/2024 6:48 AM EDT [facility] Hct 28.5(L) 40.0 - 51.0 % 12/08/2024 6:48 AM EDT [facility] MCV 91.3 80.0 - 100.0 fL 12/08/2024 6:48 AM EDT [facility] MCH 29.8 26.0 - 34.0 pg 12/08/2024 6:48 AM EDT [facility] MCHC 32.6 30.7 - 35.5 g/dL 12/08/2024 6:48 AM EDT [facility] RDW 14.5 <=14.9 % 12/08/2024 6:48 AM EDT [facility] Platelet 292 155 - 369 x10(3)/mcL 12/08/2024 6:48 AM EDT [facility] MPV 9.5 8.8 - 12.5 fL 12/08/2024 6:48 AM EDT [facility] Neut Percent 71.4 % 12/08/2024 6:48 AM EDT [facility] Comment:Neutrophils equals s egs plus bands Imm Gran% 1.1 % 12/08/2024 6:48 AM EDT [facility] Comment:Automated count of m etamyelocytes, myelocytes and promyelocytes. IG >1% represents a left shift and provides an early indication of an infection or inflammatory process. Lymph Percent 14.3 % 12/08/2024 6:48 AM EDT [facility] [place] Percent 11.0 % 12/08/2024 6:48 AM EDT [facility] Eos Percent 1.9 % 12/08/2024 6:48 AM EDT [facility] Baso Percent 0.3 % 12/08/2024 6:48 AM EDT [facility] Neut # 6.7(H) 1.6 - 6.1 x10(3)/[facility] 12/08/2024 6:48 AM EDT [facility] Comment:Neutrophils equals s egs plus bands IMMGRAN# 0.1 0.0 - 0.1 x10(3)/[facility] 12/08/2024 6:48 AM EDT [facility] Comment:Automated count of m etamyelocytes, myelocytes and promyelocytes. An absolute IG <0.1 is reported as 0.0. Lymph # 1.3 1.2 - 3.9 x10(3)/[facility] 12/08/2024 6:48 AM EDT [facility] [place] # 1.0(H) 0.3 - 0.9 x10(3)/[facility] 12/08/2024 6:48 AM EDT [facility] Eos# 0.2 0.0 - 0.5 x10(3)/[facility] 12/08/2024 6:48 AM EDT [facility] Baso # 0.0 0.0 - 0.1 x10(3)/[facility] 12/08/2024 6:48 AM EDT [facility] Blood VENOUS BLOOD / Unknown Venipuncture / Unknown 12/08/2024 6:02 AM EDT 12/08/2024 6:35 AM EDT Juana Shoemaker MD HEMATOLOGY ORDERABLES Final R esult [facility] [employer], [facility] [address] [facility] , [place] [address] * (ABNORMAL) BASIC METABOLIC PANEL (12/08/2024 6:02 AM EDT) Sodium 137 136 - 145 mmol/L 12/08/2024 7:09 AM EDT [facility] Potassium 3.7 3.5 - 5.0 mmol/L 12/08/2024 7:09 AM EDT [facility] Chloride 104 98 - 107 mmol/L 12/08/2024 7:09 AM EDT [facility] [facility] Total CO2 21(L) 22 - 29 mmol/L 12/08/2024 7:09 AM EDT [facility] Anion Gap 12 7 - 16 mmol/L 12/08/2024 7:09 AM EDT [facility] Calcium 9.3 8.6 - 10.4 mg/dL 12/08/2024 7:09 AM EDT [facility] Glucose Lvl 105(H) 70 - 99 mg/dL 12/08/2024 7:09 AM EDT [facility] BUN 11 6 - 20 mg/dL 12/08/2024 7:09 AM EDT [facility] Creatinine 0.96 0.67 - 1.30 mg/dL 12/08/2024 7:09 AM EDT [facility] eGFR (CKD-EPIcr 2020) 96 >=60 mL/min/1.7 3 m2 12/08/2024 7:09 AM EDT [facility] Comment:Estimated GFR was ca lculated using the CKD-EPIcr (2020) equation refit without race. The equation is recommended by the National Kidney Foundation - [place] Society of Nephrology Task Force. Blood VENOUS BLOOD / Unknown Venipuncture / Unknown 12/08/2024 6:02 AM EDT 12/08/2024 6:34 AM EDT us Juana Shoemaker MD CHEMISTRY ORDERABLES Final Re sult [facility] [address] [facility] , [address] [place] [id number] * ECG AND WAVEFORMS - TELEMETRY (12/07/2024 8:06 PM EDT) ECG INTERPRET NSR [facility] 12/07/2024 8:06 PM EDT Narrative [facility] - 12/07/2024 8:18 PM EDT ROUTINE (BS) AK 0.16 QRS 0.12 RR 0.65 QT 0.40 QTc 0.50 See Clinical Report link for waveform capture us Unknown Provider POINT OF CARE CARDIOLOGY Final Result [facility] [address] [place] [id number] * FL CYSTOGRAM MINIMUM 3 VW (12/07/2024 [...] examination was performed by Rachna Eller, physician cafe assistant, under the supervision of Dr. Singh. A total fluoroscopy time of 1.2 minutes was used. 119 fluoroscopic spot images were saved to PACS. FINDINGS: Via Bradford catheter, 175 mL of water-soluble contrast was instilled retrograde into the urinary bladder. Imaging was performed in multiple projections. [employer] Helper radiographs show a surgical drain over the [...] The examination was performed by Rachna Eller,physician cafe assistant, under the supervision of Dr. Singh. A total fluoroscopy timeof 1.2 minutes was used. 119 fluoroscopic spot images were saved to PACS. FINDINGS: Via Bradford catheter, 175 mL of water-soluble contrast wasinstilled retrograde into the urinary bladder. Imaging was performed in multiple projections. [employer] Helper radiographs show a surgical drain over the [...] of the ordering clinician. us Peace Rea DIGITAL MEDIA DESIGNER IMG FLUOROSCOPY ORDERABLE S Final Result * ECG AND WAVEFORMS - TELEMETRY (12/07/2024 10:12 AM EDT) ECG INTERPRET NSR [facility] 12/07/2024 10:1 2 AM EDT Narrative [facility] - 12/07/2024 10:20 AM EDT (DT)ROUTINE AK 0.15 QRS 0.09 RR 0.73 QT 0.37 QTc 0.43 See Clinical Report link for waveform capture us Unknown Provider POINT OF CARE CARDIOLOGY Final Result [facility] [address] [place] [id number] * (ABNORMAL) CBC (12/07/2024 5:33 AM EDT) [...] Fin al Result [facility] [address] [place] [address] , [place] [address] * ECG AND WAVEFORMS - TELEMETRY (12/06/2024 11:04 PM EDT) Pathologist [facility] ECG INTERPRET NSR [facility] 12/06/2024 11:0 4 PM EDT Narrative [facility] - 12/06/2024 11:37 PM EDT ROUTINE AK 0.13 QRS 0.12 RR 0.84 QT 0.40 QTc 0.43 See Clinical Report link for waveform capture us Unknown Provider POINT OF CARE CARDIOLOGY Final Result Performing Organization Address [place]/[facility] Co de Phone Number [facility] [address] [place] [address] * (ABNORMAL) C DIFF INTERPRETATION (12/06/2024 [...] 12/06/2024 10:05 AM EDT Narrative [facility] [employer] - 12/06/2024 1:18 PM EDT Toxin producing C diff target DNA sequences detected. Toxins A/B positive. CDI likely. Consider initiation of severity-based CDI therapy according to CDI management guidance. us Brody LINDQUIST MICROBIOLOGY - GENERAL ORDERABLE S Final Result Performing Organization Address City/[facility]/ZIP Co de Phone Number [facility], [address] , [place] [address] * C DIFF GDH AG AND TOXIN A+B (12/06/2024 9:57 AM EDT) Stool RECTUM STRUCTURE / Unknown Collection / Unknown 12/06/2024 9:57 AM EDT 12/06/2024 10:05 AM EDT Brody LINDQUIST MICROBIOLOGY - GENERAL ORDERABLE S Final Result Performing Organization Address [place]/[facility] Co de Phone Number [employer] [facility] [employer] [address] [facility] , [place] [address] * C DIFF TOXIN DNA (12/06/2024 9:57 AM EDT) Stool RECTUM STRUCTURE / Unknown Collection / Unknown 12/06/2024 9:57 AM EDT 12/06/2024 10:05 AM EDT Brody LINDQUIST MICROBIOLOGY - GENERAL ORDERABLE S Final Result Performing Organization Address [place]/[facility] Co de Phone Number [facility] [employer] [address] [place] [address] , [place] [address] * ECG AND WAVEFORMS - TELEMETRY (12/06/2024 7:01 AM EDT) ECG INTERPRET NSR [facility] 12/06/2024 7:01 AM EDT Narrative [facility] - 12/06/2024 8:04 AM EDT (DT)ROUTINE AK 0.17 QRS 0.09 RR 0.78 QT 0.38 QTc 0.42 See Clinical Report link for waveform capture us Unknown Provider POINT OF CARE CARDIOLOGY Final Result Performing Organization Address City/[facility] Co de Phone Number [facility] [address] [place] [address] * (ABNORMAL) CBC (12/06/2024 5:28 AM EDT) WBC 8.9 3.7 - 10.3 x10(3)/mcL 12/06/2024 6:35 AM EDT [facility] RBC 2.83(L) 4.60 - 6.10 x10(6)/mcL 12/06/2024 [...] 12/06/2024 6:35 AM EDT [facility] MCHC 33.9 30.7 - 35.5 g/dL 12/06/2024 6:35 AM EDT [facility] RDW 14.4 <=14.9 % 12/06/2024 6:35 AM EDT [facility] Platelet 217 155 - 369 x10(3)/mcL 12/06/2024 6:35 AM EDT [facility] MPV 9.7 8.8 - 12.5 fL 12/06/2024 6:35 AM EDT [facility] Blood VENOUS BLOOD / Unknown Venipuncture / Unknown 12/06/2024 5:28 AM EDT 12/06/2024 6:23 AM EDT us Sadi Haney MD HEMATOLOGY ORDERABLES Fin al Result [facility], [address] , [place] [address] * ECG AND WAVEFORMS - TELEMETRY (12/05/2024 7:00 PM EDT) ECG INTERPRET Sinus Tachycardia [facility] 12/05/2024 7:00 PM EDT Narrative [facility] - 12/05/2024 9:36 PM EDT ROUTNE AK 0.13 QRS 0.12 RR 0.55 QT 0.34 QTc 0.46 See Clinical Report link for waveform capture us Unknown Provider POINT OF CARE CARDIOLOGY Final Result [facility] [address] [place] [address] * (ABNORMAL) HEMOGLOBIN AND HEMATOCRIT (12/05/2024 12:22 PM EDT) [facility] Hgb 9.4(L) 13.7 - 17.5 g/dL 12/05/2024 1:04 PM EDT [facility] [employer] Hct 27.8(L) 40.0 - 51.0 % 12/05/2024 1:04 PM EDT [facility] [employer] Blood VENOUS BLOOD / Unknown Venipuncture / Unknown 12/05/2024 12:22 PM EDT 12/05/2024 12:27 PM EDT us Juana Shoemaker MD HEMATOLOGY ORDERABLES Final R esult Performing Organization Address City/[facility]/ZIP Co de Phone Number [facility] [address] [facility] [address], [place] [address] * ECG AND WAVEFORMS - TELEMETRY (12/05/2024 8:03 AM EDT) [facility] ECG INTERPRET NSR [facility] 12/05/2024 8:03 AM EDT Narrative [facility] - 12/05/2024 9:13 AM EDT AK 0.14 QRS 0.08 RR 0.72 QT 0.36 QTc 0.42 See Clinical Report link for waveform capture us Unknown Provider POINT OF CARE CARDIOLOGY Final Result Performing Organization Address City/[facility]/ZIP Co de Phone Number [facility] [address] [place] [address] * (ABNORMAL) CBC (12/05/2024 5:55 AM EDT) Pathologist [facility] WBC 8.0 3.7 - 10.3 x10(3)/mcL 12/05/2024 7:34 AM EDT [facility] [employer] RBC 2.79(L) 4.60 - 6.10 x10(6)/mcL 12/05/2024 7:34 AM EDT [facility] [employer] Hgb 8.4(L) 13.7 - 17.5 g/dL 12/05/2024 [...] 12/05/2024 7:34 AM EDT [facility] Platelet 187 155 - 369 x10(3)/mcL 12/05/2024 7:34 AM EDT [facility] MPV 9.9 8.8 - 12.5 fL 12/05/2024 7:34 AM EDT [facility] Blood VENOUS BLOOD / Unknown Venipuncture / Unknown 12/05/2024 5:55 AM EDT 12/05/2024 7:05 AM EDT Sadi Haney MD HEMATOLOGY ORDERABLES Fin al Result [facility] [address] [facility] , [place] [address] * (ABNORMAL) HEMOGLOBIN AND HEMATOCRIT (12/04/2024 7:12 PM EDT) [facility] Hgb 8.9(L) 13.7 - 17.5 g/dL 12/04/2024 7:32 PM EDT [facility] Hct 26.5(L) 40.0 - 51.0 % 12/04/2024 7:32 PM EDT [facility] Blood VENOUS BLOOD / Unknown Venipuncture / Unknown 12/04/2024 7:12 PM EDT 12/04/2024 7:25 PM EDT Sadi Haney MD HEMATOLOGY ORDERABLES Fin al Result Performing Organization Address [place]/[facility] de Phone Number [facility] [employer] [employer] [address] [facility], [address] [place] [id number] * ECG AND WAVEFORMS - TELEMETRY (12/04/2024 7:00 PM EDT) Pathologist [facility] ECG INTERPRET NSR [facility] 12/04/2024 7:00 PM EDT Narrative [facility] - 12/05/2024 1:26 AM EDT ROUTINE(CW) AK 0.14 QRS 0.07 RR 0.77 QT 0.38 QTc 0.43 See Clinical Report link for waveform capture us Unknown Provider POINT OF CARE CARDIOLOGY Final Result Performing Organization Address [facility] de Phone Number [facility] [address] [place] [id number] * TRANSFUSE RED BLOOD CELLS (12/04/2024 3:25 PM EDT) Peace Chavez Rutherford DIGITAL MEDIA DESIGNER NURSING TREATMENT ORDERABLES - BLOOD ADMIN Edited Result - Final * TRANSFUSE RED BLOOD CELLS (12/04/2024 3:25 PM EDT) Peace A Rutherford DIGITAL MEDIA DESIGNER NURSING TREATMENT ORDERABLES - BLOOD ADMIN Edited Result - Final * (ABNORMAL) HEMOGLOBIN AND HEMATOCRIT (12/04/2024 12:54 PM EDT) Hgb 8.2(L) 13.7 - 17.5 g/dL 12/04/2024 1:13 PM EDT [facility] [employer] [employer] Hct 24.7(L) 40.0 - 51.0 % 12/04/2024 1:13 PM EDT [facility] [employer] [employer] Blood VENOUS BLOOD / Unknown Venipuncture / Unknown 12/04/2024 12:54 PM EDT 12/04/2024 1:06 PM EDT Peace A Rutherford DIGITAL MEDIA DESIGNER HEMATOLOGY ORDERABLES Fin al Result Performing Organization Address City/[facility] Co de Phone Number [facility] [employer] [employer] [address] [facility], [place] [address] * ECG AND WAVEFORMS - TELEMETRY (12/04/2024 7:56 AM EDT) ECG INTERPRET NSR [facility] 12/04/2024 7:56 AM EDT Narrative [facility] - 12/04/2024 11:08 PM EDT ROUTINE//AC AK 0.14 QRS 0.11 RR 0.76 QT 0.39 QTc 0.45 See Clinical Report link for waveform capture us Unknown Provider POINT OF CARE CARDIOLOGY Final Result Performing Organization Address [place]/[facility]/ZIP Co de Phone Number [facility] [address] [place] [address] * ECG AND WAVEFORMS - TELEMETRY (12/04/2024 7:56 AM EDT) ECG INTERPRET NSR [facility] 12/04/2024 7:56 AM EDT Narrative [facility] - 12/04/2024 8:01 AM EDT ROUTINE//AC AK 0.14 QRS 0.11 RR 0.76 QT 0.39 QTc 0.45 See Clinical Report link for waveform capture us Unknown Provider POINT OF CARE CARDIOLOGY Final Result Performing Organization Address [place]/[facility]/ZIP Co de Phone Number [facility] [address] [place] [address] * (ABNORMAL) IRON+TIBC (12/04/2024 5:52 AM EDT) Iron 27(L) 50 - 170 mcg/dL 12/05/2024 12:26 PM EDT [facility] Transferrin 160(L) 200 - 360 mg/dL 12/05/2024 12:26 PM EDT [facility] [employer] [employer]in Saturation 12(L) 20 - 50 % 12/05/2024 12:26 PM EDT [facility] [employer] [employer] TIBC 224(L) 250 - 400 mcg/dL 12/05/2024 12:26 PM EDT [facility] Blood VENOUS BLOOD / Unknown Venipuncture / Unknown 12/04/2024 5:52 AM EDT 12/04/2024 6:01 AM EDT Juana Shoemaker MD CHEMISTRY ORDERABLES Final Re sult [facility] [address] [facility] , [place] [address] * (ABNORMAL) BASIC METABOLIC PANEL (12/04/2024 5:52 AM EDT) Sodium 140 136 - 145 mmol/L 12/04/2024 6:38 AM EDT [facility] Potassium 3.9 3.5 - 5.0 mmol/L 12/04/2024 6:38 AM EDT [facility] Chloride 109(H) 98 - 107 mmol/L 12/04/2024 6:38 AM EDT [facility] Total CO2 23 22 - 29 mmol/L 12/04/2024 6:38 AM EDT [facility] Anion Gap 8 7 - 16 mmol/L [...] recommended by the National Kidney Foundation - [place] Society of Nephrology Task Force. Blood VENOUS BLOOD / Unknown Venipuncture / Unknown 12/04/2024 5:52 AM EDT 12/04/2024 6:01 AM EDT Sadi Haney MD CHEMISTRY ORDERABLES Nadiya nichols Result [facility] [address] [facility] , [address] [place] [id number] * (ABNORMAL) CBC WITH DIFF (12/04/2024 5:52 [...] % 12/04/2024 6:13 AM EDT [facility] [place] Percent 10.4 % 12/04/2024 6:13 AM EDT [facility] Eos Percent 2.6 % 12/04/2024 6:13 AM EDT [facility] Baso Percent 0.3 % 12/04/2024 6:13 AM EDT [facility] Neut # 4.1 1.6 - 6.1 x10(3)/[facility] 12/04/2024 6:13 AM EDT [facility] Comment:Neutrophils equals s egs plus bands IMMGRAN# 0.0 0.0 - 0.1 x10(3)/[facility] 12/04/2024 6:13 AM EDT [facility] Comment:Automated count of m etamyelocytes, myelocytes and promyelocytes. An absolute IG <0.1 is reported as 0.0. Lymph # 1.5 1.2 - 3.9 x10(3)/[facility] 12/04/2024 6:13 AM EDT [facility] [place] # 0.7 0.3 - 0.9 x10(3)/[facility] 12/04/2024 6:13 AM EDT [facility] Eos# 0.2 0.0 - 0.5 x10(3)/[facility] 12/04/2024 6:13 AM EDT [facility] Baso # 0.0 0.0 - 0.1 x10(3)/[facility] 12/04/2024 6:13 AM EDT [facility] Blood VENOUS BLOOD / Unknown Venipuncture / Unknown 12/04/2024 5:52 AM EDT 12/04/2024 6:01 AM EDT us Sadi Haney MD HEMATOLOGY ORDERABLES Fin al Result [facility] [address] [facility] , [address] [place] [id number] * ECG AND WAVEFORMS - TELEMETRY (12/03/2024 7:00 PM EDT) ECG INTERPRET NSR [facility] 12/03/2024 7:00 PM EDT Narrative [facility] - 12/03/2024 8:34 PM EDT ROUTINE(CW) AK 0.15 QRS 0.06 RR 0.60 QT 0.27 QTc 0.35 See Clinical Report link for waveform capture us Unknown Provider POINT OF CARE CARDIOLOGY Final Result Performing Organization Address City/[facility] Co de Phone Number [facility] [address] [place] [address] * (ABNORMAL) HEMOGLOBIN AND HEMATOCRIT (12/03/2024 10:44 AM EDT) [facility] Hgb 7.9(L) 13.7 - 17.5 g/dL 12/03/2024 11:50 AM EDT [facility] [employer] Hct 23.7(L) 40.0 - 51.0 % 12/03/2024 11:50 AM EDT [facility] Blood VENOUS BLOOD / Unknown Venipuncture / Unknown 12/03/2024 10:44 AM EDT 12/03/2024 10:54 AM EDT us Meng Chen MD HEMATOLOGY ORDERABLES Final Res ult Performing Organization Address [place]/[facility] de Phone Number [employer] [address] [place] [address], [place] [address] * ECG AND WAVEFORMS - TELEMETRY (12/03/2024 7:00 AM EDT) [facility] ECG INTERPRET NSR [facility] 12/03/2024 7:00 AM EDT Narrative [facility] - 12/03/2024 7:58 AM EDT [place] ROUTINE AK 0.14 QRS 0.09 RR 0.66 QT 0.35 See Clinical Report link for waveform capture us Unknown Provider POINT OF CARE CARDIOLOGY Final Result Performing Organization Address [place]/[facility] Co de Phone Number [facility] [address] [place] [address] * (ABNORMAL) HEMOGLOBIN AND HEMATOCRIT (12/03/2024 4:48 AM EDT) Hgb 8.0(L) 13.7 - 17.5 g/dL 12/03/2024 5:08 AM EDT [facility] [employer] Hct 24.4(L) 40.0 - 51.0 % 12/03/2024 5:08 AM EDT [facility] [employer] Blood VENOUS BLOOD / Unknown Venipuncture / Unknown 12/03/2024 4:48 AM EDT 12/03/2024 4:58 AM EDT Meng Chen MD HEMATOLOGY ORDERABLES Final Res ult [facility] [employer], [address], [place] [address] * TRANSFUSE RED BLOOD CELLS (12/03/2024 4:00 AM EDT) Sadi Haney MD NURSING TREATMENT ORDERAB LES - BLOOD ADMIN Final Result * TRANSFUSE RED BLOOD CELLS (12/03/2024 4:00 AM EDT) Sadi Haney MD NURSING TREATMENT ORDERAB LES - BLOOD ADMIN Final Result * (ABNORMAL) TROPONIN-T HIGH SENSITIVITY 6 HR (12/03/2024 3:40 AM EDT) Pathologist [facility] [id number]-[id number]-C 6HR 37(H) <22 ng/L 12/03/2024 4:43 AM EDT [facility] [employer] hs-cTnT 6Hr Delta from Baseline 11 <12 ng/L 12/03/2024 4:43 AM EDT [facility] [employer] Blood VENOUS BLOOD / Unknown Venipuncture / Unknown 12/03/2024 3:40 AM EDT 12/03/2024 4:11 AM EDT Narrative [facility] - 12/03/2024 4:43 AM EDT Ingestion of josé miguel doses of biotin (>5 mg/day) taken within 8 hours of drawing blood sample can interfere with this immunoassay test. us Rachna Wood DIGITAL MEDIA DESIGNER CHEMISTRY ORDERABLES Fin al Result [facility] [address] [facility] , [place] [address] * (ABNORMAL) BASIC METABOLIC PANEL (12/03/2024 3:40 AM EDT) Sodium 142 136 - 145 mmol/L 12/03/2024 4:42 AM EDT [facility] Potassium 4.2 3.5 - 5.0 mmol/L 12/03/2024 4:42 AM EDT [facility] Chloride 111(H) 98 - 107 mmol/L 12/03/2024 4:42 AM EDT [facility] Total CO2 21(L) 22 - 29 mmol/L [...] recommended by the National Kidney Foundation - [place] Society of Nephrology Task Force. Blood VENOUS BLOOD / Unknown Venipuncture / Unknown 12/03/2024 3:40 AM EDT 12/03/2024 4:11 AM EDT Sadi Haney MD CHEMISTRY ORDERABLES Nadiya magdalena Result [facility] [address] [facility], [address] [place] [id number] * (ABNORMAL) CBC WITH DIFF (12/03/2024 3:40 [...] 4:22 AM EDT [facility] [place] Percent 11.5 % 12/03/2024 4:22 AM EDT [facility] Eos Percent 0.6 % 12/03/2024 4:22 AM EDT [facility] Baso Percent 0.2 % 12/03/2024 4:22 AM EDT [facility] Neut # 6.7(H) 1.6 - 6.1 x10(3)/[facility] 12/03/2024 4:22 AM EDT [facility] Comment:Neutrophils equals s egs plus bands IMMGRAN# 0.0 0.0 - 0.1 x10(3)/[facility] 12/03/2024 4:22 AM EDT [facility] Comment:Automated count of m etamyelocytes, myelocytes and promyelocytes. An absolute IG <0.1 is reported as 0.0. Lymph # 1.6 1.2 - 3.9 x10(3)/[facility] 12/03/2024 4:22 AM EDT [facility] [place] # 1.1(H) 0.3 - 0.9 x10(3)/[facility] 12/03/2024 4:22 AM EDT [facility] Eos# 0.1 0.0 - 0.5 x10(3)/[facility] 12/03/2024 4:22 AM EDT [facility] Baso # 0.0 0.0 - 0.1 x10(3)/[facility] 12/03/2024 4:22 AM EDT [facility] [employer], [facility] Blood VENOUS BLOOD / Unknown Venipuncture / Unknown 12/03/2024 3:40 AM EDT 12/03/2024 4:11 AM EDT Sadi Haney MD HEMATOLOGY ORDERABLES Fin al Result [facility] [address] [facility] , [place] [address] * TRANSFUSE RED BLOOD CELLS (12/03/2024 1:03 AM EDT) us Sadi Haney MD NURSING TREATMENT ORDERAB LES - BLOOD ADMIN Final Result * TRANSFUSE RED BLOOD CELLS (12/03/2024 1:03 AM EDT) Sadi Haney MD NURSING TREATMENT ORDERAB LES - BLOOD ADMIN Final Result * (ABNORMAL) TROPONIN-T HIGH SENSITIVITY 2HR (12/02/2024 10:14 PM EDT) [id number]-[id number] 2HR 33(H) <22 ng/L 12/02/2024 11:02 PM EDT [facility] hs-cTnT 2Hr Delta from Baseline 7(H) <4 ng/L 12/02/2024 11:02 PM EDT [facility] Blood VENOUS BLOOD / Unknown Venipuncture / Unknown 12/02/2024 10:14 PM EDT 12/02/2024 10:33 PM EDT Narrative [facility] - 12/02/2024 11:02 PM EDT Ingestion of josé miguel doses of biotin (>5 mg/day) taken within 8 hours of drawing blood sample can interfere with this immunoassay test. Rachna Wood DIGITAL MEDIA DESIGNER CHEMISTRY ORDERABLES Fin al Result [facility] [employer] [address] [place] [address] , [address] [place] [id number] * CT ABDOMEN PELVIS W CONTRAST (12/02/2024 [...] BASELINE W/ REFLEX (12/02/2024 7:34 PM EDT) [id number] 26(H) <22 ng/L 12/02/2024 8:05 PM EDT [facility] Blood VENOUS BLOOD / Unknown Venipuncture / Unknown 12/02/2024 7:34 PM EDT 12/02/2024 7:37 PM EDT Narrative [facility] - 12/02/2024 8:05 PM EDT Ingestion of josé miguel doses of biotin (>5 mg/day) taken within 8 hours of drawing blood sample can interfere with this immunoassay test. Rachna Wood DIGITAL MEDIA DESIGNER CHEMISTRY ORDERABLES Fin al Result [facility] [address] [facility], [place] [address] * EK EKG 12 LEAD (12/02/2024 7:13 PM EDT) Anatomical Region Laterality Modality Electrocardiogra phy 12/02/2024 7:21 PM EDT Impressions 12/03/2024 11:25 AM EDT [facility] Test Date: 2024-12-02 Pat Name: ALEX HOFFMAN Department: DEPID Room: 7308 Gender: Male Web Publisher: As : 1975 Requested By: RACHNA Gutierrez Order Number: [id number] Reading MD: Edelmira Ramsey DO Measurements Intervals Carson Rate: 123 P: 131 AK: 167 QRS: 1 QRSD: 90 T: 72 QT: 319 QTc: 457 Interpretive Statements SINUS TACHYCARDIA NONSPECIFIC ST & T-WAVE ABNORMALITY ABNORMAL RHYTHM ECG Electronically Signed On 07-27-2025 11:25:42 EDT by Edelmira Ramsey DO Narrative Procedure Note Edelmira Ramsey DO - 12/03/2024 [facility] Test Date: 2024-12-02 Pat Name: ALEX HOFFMAN Department: DEPID Room: 7308 Gender: Male Web Publisher: As : 1975 Requested By: RACHNA Gutierrez Order Number: [id number] Reading MD: Edelmira Ramsey DO Measurements Intervals [place] Rate: 123 P: 131 AK: 167 QRS: 1 QRSD: 90 T: 72 QT: 319 QTc: 457 Interpretive Statements SINUS TACHYCARDIA NONSPECIFIC ST & T-WAVE ABNORMALITY ABNORMAL RHYTHM ECG Electronically Signed On 12-03-2024 11:25:42 EDT by Edelmira Ramsey DO us Rachna Wood DIGITAL MEDIA DESIGNER IMG ECG ORDERABLES Final Result * ECG AND WAVEFORMS - TELEMETRY (12/02/2024 7:00 PM EDT) Pathologist [facility] ECG INTERPRET Sinus Tachycardia [facility] 12/02/2024 7:00 PM EDT Narrative [facility] - 12/02/2024 7:47 PM EDT ROUTINE(CW) AK 0.10 QRS 0.05 RR 0.40 QT 0.27 QTc 0.43 See Clinical Report link for waveform capture us Unknown Provider POINT OF CARE CARDIOLOGY Final Result [facility] [address] [place] [id number] * (ABNORMAL) HEMOGLOBIN AND HEMATOCRIT (12/02/2024 6:17 PM EDT) Hgb 7.5(L) 13.7 - 17.5 g/dL 12/02/2024 6:54 PM EDT [facility] Hct 22.9(L) 40.0 - 51.0 % 12/02/2024 6:54 PM EDT [facility] Blood VENOUS BLOOD / Unknown Venipuncture / Unknown 12/02/2024 6:17 PM EDT 12/02/2024 6:25 PM EDT us Meng Chen MD HEMATOLOGY ORDERABLES Final Res ult Performing Organization Address [place] Co de Phone Number [facility] [email or web address] [facility] [address] [facility] , [address] [place] [id number] * REPEAT LACTIC ACID (12/02/2024 6:17 PM EDT) Lactic Acid 1.6 0.5 - 1.9 mmol/L 12/02/2024 6:44 PM EDT [facility] [email or web address] [facility] Blood VENOUS BLOOD / Unknown Venipuncture / Unknown 12/02/2024 6:17 PM EDT 12/02/2024 6:25 PM EDT us Meng Chen MD CHEMISTRY ORDERABLES Final Resu lt Performing Organization Address [place] Co de Phone Number [facility] [email or web address] [facility] [address] [facility] , [place] [address] * (ABNORMAL) REPEAT LACTIC ACID (12/02/2024 3:49 PM EDT) Lactic Acid 2.9(H) 0.5 - 1.9 mmol/L 12/02/2024 4:29 PM EDT [facility] [email or web address] [facility] Blood VENOUS BLOOD / Unknown Venipuncture / Unknown 12/02/2024 3:49 PM EDT 12/02/2024 3:55 PM EDT us Meng Chen MD CHEMISTRY ORDERABLES Final Resu lt Performing Organization Address [place] Co de Phone Number [facility] [email or web address] [facility] [address] [facility] , [place] [address] * ECG AND WAVEFORMS - TELEMETRY (12/02/2024 3:11 PM EDT) ECG INTERPRET Sinus Tachycardia [facility] Comment:MD notified 12/02/2024 3:11 PM EDT Narrative [facility] - 12/02/2024 3:13 PM EDT [place] ROUTINE See Clinical Report link for waveform capture us Unknown Provider POINT OF CARE CARDIOLOGY Final Result Performing Organization Address [place] Co de Phone Number [facility] [address] [place], [place] [phone] * (ABNORMAL) LACTIC ACID (12/02/2024 1:42 PM EDT) Lactic Acid 3.2(H) 0.5 - 1.9 mmol/L 12/02/2024 2:16 PM EDT [facility] Blood VENOUS BLOOD / Unknown Venipuncture / Unknown 12/02/2024 1:42 PM EDT 12/02/2024 1:52 PM EDT Meng Chen MD CHEMISTRY ORDERABLES Final Resu lt Performing Organization Address [facility] Co de Phone Number [facility] [address] [facility] , [place] [address] * BLOOD CULTURE (NO STAIN) (12/02/2024 1:42 PM EDT) Culture Result No Growth at 120 hours. BLOOD CULTURE (NO STAIN) 12/07/2024 3:00 PM EDT [facility] Blood VENOUS BLOOD / Unknown Venipuncture / Unknown 12/02/2024 1:42 PM EDT 12/02/2024 1:53 PM EDT Meng Chen MD MICROBIOLOGY - GENERAL ORDERABL ES Final Result Performing Organization Address [place] Co de Phone Number [facility] [address] [facility] , [place] [address] * ECG AND WAVEFORMS - TELEMETRY (12/02/2024 12:27 PM EDT) ECG INTERPRET Sinus Tachycardia [facility] Comment:aysmptomatic on asse ssment 12/02/2024 12:2 7 PM EDT Narrative [facility] - 12/02/2024 12:50 PM EDT [place] ROUTINE AK 0.13 QRS 0.10 RR 0.50 QT 0.32 See Clinical Report link for waveform capture us Unknown Provider POINT OF CARE CARDIOLOGY Final Result Performing Organization Address [place]/ZIP Co de Phone Number [facility] [address] [place] [address] * (ABNORMAL) REPEAT LACTIC ACID (12/02/2024 10:59 AM EDT) Lactic Acid 2.8(H) 0.5 - 1.9 mmol/L 12/02/2024 11:16 AM EDT [facility] Blood VENOUS BLOOD / Unknown Venipuncture / Unknown 12/02/2024 10:59 AM EDT 12/02/2024 10:59 AM EDT Sundar Kessler APRN CHEMISTRY ORDERABLES Final Result Performing Organization Address City/[facility] Co de Phone Number [facility] [address] [place] [address] * URINE CULTURE (NO STAIN) (12/02/2024 10:53 AM EDT) Culture No growth at 30 hours. 12/04/2024 6:38 AM EDT [facility] Urine URINARY BLADDER STRUCTURE / Unknown 12/02/2024 10:53 AM EDT 12/02/2024 11:12 AM EDT Sundar Kessler APRN MICROBIOLOGY - GENER AL ORDERABLES Final Result Performing Organization Address City/[facility]/ZIP Co de Phone Number [facility] [address] [facility], [place] [address] * EXTRA SWENSON URINE CX (12/02/2024 10:53 AM EDT) Urine URINE SPECIMEN OBTAINED VIA INDWELLING URINARY CATHETER / Unknown 12/02/2024 10:53 AM EDT 12/02/2024 10:59 AM EDT Sundar Kessler DIGITAL MEDIA DESIGNER MICROBIOLOGY - GENER AL ORDERABLES Final Result [facility] [address] [place] [address] * (ABNORMAL) URINALYSIS REFLEX (12/02/2024 10:53 [...] /LPF 12/02/2024 11:12 AM EDT PREFERRED [facility] [employer] UA Bacteria 1+(A) Negative /HPF 12/02/2024 11:12 AM EDT [facility] Urine URINARY BLADDER STRUCTURE / Unknown 12/02/2024 10:53 AM EDT 12/02/2024 10:59 AM EDT Sundar Kessler DIGITAL MEDIA DESIGNER URINE ORDERABLES Fin al Result Performing Organization Address [place] Co de Phone Number [facility] [email or web address] [address] , [place] [address] * BLOOD CULTURE (NO STAIN) (12/02/2024 10:51 AM EDT) Culture Result No Growth at 120 hours. BLOOD CULTURE (NO STAIN) 12/07/2024 1:00 PM EDT [facility] [email or web address] [facility] Blood VENOUS BLOOD / Unknown Venipuncture / Unknown 12/02/2024 10:51 AM EDT 12/02/2024 10:51 AM EDT Meng Chen MD MICROBIOLOGY - GENERAL ORDERABL ES Final Result Performing Organization Address [facility] de Phone Number [facility] [employer] , [place] [address] * XR CHEST AP PORTABLE [...] - 17.5 g/dL 12/02/2024 10:12 AM EDT [facility] Hct 24.7(L) 40.0 - 51.0 % 12/02/2024 10:12 AM EDT [facility] Blood VENOUS BLOOD / Unknown Venipuncture / Unknown 12/02/2024 9:22 AM EDT 12/02/2024 9:48 AM EDT Peace Rea DIGITAL MEDIA DESIGNER HEMATOLOGY ORDERABLES Fin al Result [facility] [address] [facility] , [place] [address] * (ABNORMAL) REPEAT LACTIC ACID (12/02/2024 9:22 AM EDT) Pathologist [facility] Lactic Acid 2.3(H) 0.5 - 1.9 mmol/L 12/02/2024 10:00 AM EDT [facility] Blood VENOUS BLOOD / Unknown Venipuncture / Unknown 12/02/2024 9:22 AM EDT 12/02/2024 9:46 AM EDT [employer] [facility] CHEMISTRY ORDERABLES Final Result Performing Organization Address [place]/[facility]/ZIP Co de Phone Number [address] [address] * (ABNORMAL) TROPONIN-T HIGH SENSITIVITY 2HR (12/02/2024 9:22 AM EDT) Pathologist [facility] ue-mTerhrhhw-B 2HR 26(H) <22 ng/L 12/02/2024 10:04 AM EDT [facility] hs-cTnT 2Hr Delta from Baseline -1 <4 ng/L 12/02/2024 10:04 AM EDT [facility] Blood VENOUS BLOOD / Unknown Venipuncture / Unknown 12/02/2024 9:22 AM EDT 12/02/2024 9:46 AM EDT Narrative [facility] - 12/02/2024 10:04 AM EDT Ingestion of josé miguel doses of biotin (>5 mg/day) taken within 8 hours of drawing blood sample can interfere with this immunoassay test. Virtual [employer] CHEMISTRY ORDERABLES Final Result Performing Organization Address City/[facility]/ZIP Co de Phone Number [address] [address] * (ABNORMAL) TROPONIN-T HIGH SENSITIVITY BASELINE W/ REFLEX (12/02/2024 7:08 AM EDT) Pathologist [facility] ls-zUxxwslbo-I 27(H) <22 ng/L 12/02/2024 7:42 AM EDT [facility] [employer], [facility] Blood VENOUS BLOOD / Unknown Venipuncture / Unknown 12/02/2024 7:08 AM EDT 12/02/2024 7:14 AM EDT Narrative PREFERRED [email or web address] [facility] - 12/02/2024 7:42 AM EDT Ingestion of josé miguel doses of biotin (>5 mg/day) taken within 8 hours of drawing blood sample can interfere with this immunoassay test. Sundar Kessler APRN CHEMISTRY ORDERABLES Final Result Performing Organization Address [place]/[facility] Co de Phone Number [facility] [email or web address] [address] , [place] [address] * (ABNORMAL) REPEAT LACTIC ACID (12/02/2024 7:08 AM EDT) Lactic Acid 3.1(H) 0.5 - 1.9 mmol/L 12/02/2024 7:35 AM EDT [facility] [email or web address] [facility] Blood VENOUS BLOOD / Unknown Venipuncture / Unknown 12/02/2024 7:08 AM EDT 12/02/2024 7:15 AM EDT Sundar Kessler APRN CHEMISTRY ORDERABLES Final Result Performing Organization Address [place]/[facility] de Phone Number [facility] [email or web address] [address] , [place] [address] * EK EKG 12 LEAD (12/02/2024 7:01 AM EDT) Anatomical Region Laterality Modality Electrocardiogra phy 12/02/2024 7:17 AM EDT Impressions 12/02/2024 1:[address] [facility] Test Date: 2024-12-02 Pat Name: ALEX HOFFMAN Department: DEPID Room: 7308 Gender: Male Web Publisher: Murray : 1975 Requested By: SUNDAR LAWRENCE Order Number: [id number] Reading MD: Forrest Johnston MD Measurements Intervals Carson Rate: 92 P: 46 AK: 132 QRS: 13 QRSD: 85 T: 33 QT: 367 QTc: 454 Interpretive Statements SINUS RHYTHM Electronically Signed On 12-02-2024 13:57:21 EDT by Forrest Johnston MD Narrative Procedure Note Forrest Johnston MD - 12/02/2024 ROLAN Mac Test Date: 2024-12-02 Pat Name: ALEX HOFFMAN Department: DEPID Room: 7308 Gender: Male Web Publisher: Murray : 1975 Requested By: SUNDAR MORENO Order Number: [id number] Reading MD: Forrest Johnston MD Measurements Intervals Carson Rate: 92 P: 46 AK: 132 QRS: 13 QRSD: 85 T: 33 QT: 367 QTc: 454 Interpretive Statements SINUS RHYTHM Electronically Signed On 12-02-2024 13:57:21 EDT by Forrest Johnston MD Sundar Kessler DIGITAL MEDIA DESIGNER IMG ECG ORDERABLES F inal Result * (ABNORMAL) PROCALCITONIN (12/02/2024 5:05 AM EDT) Procalcitonin 0.62(H) <=0.49 ng/mL 12/02/2024 5:52 AM EDT [facility] Blood VENOUS BLOOD / Unknown Venipuncture / Unknown 12/02/2024 5:05 AM EDT 12/02/2024 5:11 AM EDT Narrative [facility] - 12/02/2024 5:52 AM EDT Procalcitonin <0.50 [...] progression to severe sepsis and/or septic shock. [employer] Linh Kessler APRN CHEMISTRY ORDERABLES Final Result Performing Organization Address [place]/[facility] de Phone Number [facility] [address] [place] [address] , [place] [address] * (ABNORMAL) LACTIC ACID (12/02/2024 5:04 AM EDT) Lactic Acid 3.5(H) 0.5 - 1.9 mmol/L 12/02/2024 5:31 AM EDT [facility] Blood VENOUS BLOOD / Unknown Venipuncture / Unknown 12/02/2024 5:04 AM EDT 12/02/2024 5:11 AM EDT Sundar Kessler APRN CHEMISTRY ORDERABLES Final Result Performing Organization Address [facility] de Phone Number [facility] [address] [place] [address] , [place] [address] * CREATININE BODY FLUID (12/02/2024 4:12 AM EDT) Creatinine BF 1.15 0.67 - 1.30 mg/dL 12/02/2024 5:03 AM EDT [facility] Body Fluid ABDOMEN / Unknown Collection / Unknown 12/02/2024 4:12 AM EDT 12/02/2024 4:29 AM EDT Narrative [facility] - 12/02/2024 5:03 AM EDT A reference interval for this test has not been established for body fluid specimens. The reference range listed reflects normal concentration of this analyte in blood. Sadi Haney MD BODY FLUIDS AND STOOLS OR DERABLES Final Result Performing Organization Address [place] Co de Phone Number [facility] [address] [facility] , [place] [address] * (ABNORMAL) CBC WITH DIFF (12/02/2024 3:47 AM EDT) [facility] Signature WBC 21.8(H) 3.7 - 10.3 x10(3)/mc [...] 4:21 AM EDT [facility] [place] Percent 10.4 % 12/02/2024 4:21 AM EDT [facility] [place] Percent 0.1 % 12/02/2024 4:21 AM EDT [facility] Baso Percent 0.1 % 12/02/2024 4:21 AM EDT [facility] Neut # 17.9(H) 1.6 - 6.1 x10(3)/mc L 12/02/2024 4:21 AM EDT [facility] Comment:Neutrophils equals s egs plus bands IMMGRAN# 0.2(H) 0.0 - 0.1 x10(3)/mc L 12/02/2024 4:21 AM EDT [facility] Comment:Automated count of m etamyelocytes, myelocytes and promyelocytes. An absolute IG <0.1 is reported as 0.0. Lymph # 1.4 1.2 - 3.9 x10(3)/mc L 12/02/2024 4:21 AM EDT [facility] [place] # 2.3(H) 0.3 - 0.9 x10(3)/mc L 12/02/2024 4:21 AM EDT [facility] Eos# 0.0 0.0 - 0.5 x10(3)/mc L 12/02/2024 4:21 AM EDT [facility] Baso # 0.0 0.0 - 0.1 x10(3)/mc L 12/02/2024 4:21 AM EDT [facility] RBC Morph Consistent with Red Cell Indices no units 12/02/2024 4:21 AM EDT [facility] Blood VENOUS BLOOD / Unknown Venipuncture / Unknown 12/02/2024 3:47 AM EDT 12/02/2024 3:50 AM EDT us Sadi Haney MD HEMATOLOGY ORDERABLES Fin al Result [facility] [address] [facility] , [place] [address] * (ABNORMAL) BASIC METABOLIC PANEL [...] recommended by the National Kidney Foundation - [place] Society of Nephrology Task Force. Blood VENOUS BLOOD / Unknown Venipuncture / Unknown 12/02/2024 3:46 AM EDT 12/02/2024 3:50 AM EDT us Peace Rea APRN CHEMISTRY ORDERABLES Nadiya l Result [facility] [address] [place] [address] * (ABNORMAL) GLUCOSE METER POC (12/02/2024 2:58 AM EDT) [facility] Glucose Meter POC 148(H) 70 - [...] BLES Final Result [facility] 1 [place] [address] * PATHOLOGY TISSUE REQUEST (12/01/2024 3:36 PM EDT) CASE REPORT Surgical Pathology Case: [id number] Authorizing Provider: Sadi Haney MD Collected: 12/01/2024 1536 Ordering Location: [facility] Received: 12/01/2024 1631 Pathologist: Gayle Bahena MD Specimen: Kidney, Left, Left kidney and ureter,along with bladder cuff 12/05/2024 4:20 PM EDT [facility] FINAL DIAGNOSIS Kidney and ureter, left radical nephroureterectomy with bladder cuff: - Ureter: - Noninvasive low-grade papillary urothelial carcinoma, 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 - Resection margins negative for carcinoma - Kidney and bladder cuff with chronic inflammation, negative for carcinoma. - Adrenal gland negative for carcinoma. - See synoptic report for details. 12/05/2024 4:20 PM EDT [facility] at 1620 EDT GROSS [...] 0.5 to 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 Manager Account Management sections are submitted as follows: A1-A3 = entire mass at UPJ to include adjacent uninvolved proximal ureter A4 = remaining proximal ureter A5-A6 = patient support representative dilated calyces A7-A8 equal all distal ureter with perpendicular bladder margin A9 = vascular margins from kidney A10 = all areas suggestive of adrenal parenchyma A11 = 1 bisected lymph node candidate A12 = 1 trisected lymph node candidate A13-A14 = largest lymph node candidate, trisected RIK Stover PA (ASCP) 12/05/2024 4:20 PM EDT [facility] MICROSCOPIC DESCRIPTION The microscopic examination may have been rendered in whole, or in part, by analyzing high-resolution digital images (whole slide images) on the [employer] Auto [employer] Digital Pathology platform validated at [facility]. 12/05/2024 4:20 PM EDT [facility] BEST TISSUE BLOCK FOR ANCILLARY STUDIES A3 12/05/2024 4:20 PM T [facility] SYNOPTIC REPORT CHECKLIST URETER, RENAL PELVIS: Resection [...] limited to this pathology report. pT Category: tableau administrator pN Category: pN not assigned (no nodes submitted or found) ADDITIONAL FINDINGS Pathologic Findings in Ipsilateral Nonneoplastic Renal Tissue: None identified 12/05/2024 4:20 PM EDT [facility] EMBEDDED IMAGES 12/05/2024 4:20 PM EDT [facility] Tissue LEFT KIDNEY STRUCTURE / Unknown 12/01/2024 3:36 PM EDT 12/01/2024 4:31 PM EDT Sadi Haney MD PATHOLOGY ORDERABLES Nadiya nichols Result [facility] [address] [place], [place] [id number] [address] [id number] * US ANES GUIDANCE FOR POC (12/01/2024 [...] 9:30 AM EDT [facility] Blood VENOUS BLOOD / Unknown Venipuncture / Unknown 12/01/2024 9:22 AM EDT 12/01/2024 9:26 AM EDT us Sadi Haney MD BLOOD BANK ORDERABLES Fin al Result Performing Organization Address City/[facility]/ZIP Co de Phone Number [address] [address] * ABORH (12/01/2024 9:22 AM EDT) ABORH Int B POS 12/01/2024 9:5 7 AM EDT [facility] Blood VENOUS BLOOD / Unknown Venipuncture / Unknown 12/01/2024 9:22 AM EDT 12/01/2024 9:26 AM EDT Sadi Haney MD BLOOD BANK ORDERABLES Fin al Result Performing Organization Address [place]/[facility] Co de Phone Number [facility] [place] [address] * RED BLOOD CELLS REQUEST (11/23/2024 2:10 PM EDT) Product Code E2440I61 [facility] Unit Number [id number] [facility] Crossmatch Interp Compatible [facility] Dispense Status TRANSFUSED [facility] Blood Expiration Date [id number] [facility] ISBT 128 Type [address] Blood Unit Volume 300 ml [facility] BA CODING SYSTEM [id number] [facility] Blood Type (Unit) B POS [facility] Blood 11/23/2024 2:10 PM EDT 11/23/2024 2:17 PM EDT Peace Rea DIGITAL MEDIA DESIGNER BLOOD PRODUCT ORDERS Nadiya l Result Performing Organization Address City/[facility]/ZIP Co de Phone Number [facility] [place] [address] * RED BLOOD CELLS REQUEST (11/23/2024 2:10 PM EDT) Product Code [id number] [facility] Unit Number [id number] [facility] Crossmatch Interp Compatible [facility] Dispense Status TRANSFUSED [facility] Blood Expiration Date [facility] ISBT 128 Type 7300 [facility] Blood Unit Volume 300 ml [facility] BA CODING SYSTEM [id number] [facility] Blood Type (Unit) B POS [facility] Product Code [id number] [facility] Unit Number [id number] [facility] Crossmatch Interp Compatible [facility] Dispense Status TRANSFUSED [facility] Blood Expiration Date [facility] ISBT 128 Type 7300 [facility] Blood Unit Volume 300 ml [facility] BA CODING SYSTEM [id number] [facility] Blood Type (Unit) B POS [facility] Blood 11/23/2024 2:10 PM EDT 11/23/2024 2:17 PM EDT Sadi Haney MD BLOOD PRODUCT ORDERS Nadiya l Result Performing Organization Address City/State/[facility] Co de Phone Number [place] [phone] documented in this encounter Visit Diagnoses Diagnosis [...] phenoL (CHLORASEPTIC) 1.4 % oral spray 1 Rutherford 1 [place]uther[place], Oral, EVERY 2 HOURS PRN, Starting on Wed12/04/24 at 2110, Until Wed12/08/24 at 1550, Sore Throat Given 12/04/2024 9:58 PM EDT 1 R[place]ford Saccharomyces boulardii (FLORASTOR) capsule 250 mg 250 [...] RN) 0832 (Given - Provider: Marige Diaz LPN)210 (Given - Provider: Virginia Landis, [...] 08 (Given - Provider: Margie Diaz LPN) PRN [...] phenoL (CHLORASEPTIC) 1.4 % oral spray 1 Rutherford(Linked [employer]) 1 [place], Oral, EVERY 2 HOURS PRN, Starting on [...] oral spray 1 SprayJump to med 1 [place], Oral, EVERY 2 HOURS PRN, Starting on [...] phenoL (CHLORASEPTIC) 1.4 % oral spray 1 [place] 1 12/04/2024 diazePAM (VALIUM) tablet 5 mg [...] documented as of this encounter Care Teams Rail Transportation Tabeler Relationship Specialty Start Date End Date Reyna Perez APRN [address] [place] [address] [address] [place] [id number] PCP - General Nurse Practitioner 10/27/24 documented as of this encounter
--- OUTSIDE RECORDS SUMMARY | 2024-12-01 11:21 | XMS_ITS | Encounter Summary ---
Author Organization [employer] [address] Care Team Providers Care [employer] Name Role Phone Reyna Perez Jonathan ROMO Primary Care Provider [phone] Encounter Details Date Type Department Care Team (Late st Contact Info) Description 12/01/2024 11:21 AM EDT Anesthesia Event EDG PERIOP [facility] [address] [place] [address] Tommy Romero DO [address] [place] [address] Kathy Dong APRN [address] [place] [address] Anesthesia Record Procedure Summary Procedure Name Responsible Anesthesiologist Anesthesia Start Time Anesthesia Stop Time DAVINCI ROBOTIC NEPHROURETERECTOMY (Left) Tommy Romero DO 12/01/24 1121 12/01/24 1648 Events Date Time Event Comment 12/01/2024 0912 1032 Line Placement 1048 AN Equip Check 1121 An Start 1122 An Start Data 1126 Immediate Pre Anesthetic Ass es 1131 An Induction 1133 An Intubation 1140 Anesthesia Ready 1147 Time out 1148 Incision 1217 Quick Note [place] not level during repositioning. Re leved after [...] acknowledgement of understanding from the receiving PACU/ICU team leader surgery 1648 An Stop Meds Name Total lidocaine injection 1% 100 mg fentaNYL 50 MCG/ML INJ 100 mcg propofol (DIPRIVAN) injection 520 mg rocuronium (ZEMURON) 10 mg/mL injection 150 mg HYDROmorphone (DILAUDID) injection 1 mg/ ml 1 mg dexamethasone (DECADRON) injection 4 mg/ mL 4 mg ondansetron (ZOFRAN) injection 4 mg /2 m L 4 mg sugammadex (BRIDION) 100 mg/mL injection 250 mg cefTRIAXone in dextrose (ROCEPHIN) 1 gra m/50 mL IVPB 1 g 1 g esmolol (BREVIBLOC) injection 10 mg/mL 6 0 mg lactated ringers infusion 2,400 mL 0.9 % NaCl infusion 600 mL * Agents Name O2 N2O Air Et Sevoflurane * Blood No blood administrations on file. Lines, Drains, and Airways Type Details Placement Removal Peripheral IV 12/01/24; 0715; 18; 1.16; Posterior, Right; Hand; konrad maldonado rn; 1; None; 12/04/24; 1144 12/01/24 0715 by Konrad Maldonado RN 12/04/24 1144 by Amanda Williamson, LAY Peripheral IV 12/01/24; 0929; 20; 1; Left, Posterior; Hand; konrad maldonado rn; 1; None; 12/04/24; 1144 12/01/24 0929 by Konrad Maldonado RN 12/04/24 1144 by Amanda Williamson, LAY Arterial Line 12/01/24; 1032 (leah gutierrez via procedure documentation); 20g; Radial (Ultrasound (US) [...] 12/01/24; 1552; 1; Midline, Inferior; Abdomen; 10 Malay 12/01/24 1552 by Sonja Solis RN 12/08/24 [...] as of this encounter Procedure Notes * Desiree Kerr CRNA - 12/01/2024 11:37 AM EDTAssociated Order(s): Airway Intraop Airway Placement: Date/Time: 12/01/2024 11:33 AM Induction type: IV Mask size: Standard adult Pre-Oxygenation: Standard and BMI guided pre-O2 Mask ventilation: Moderate mask ventilation Mask ventilation improved by: Oral airway and Chinlift Oral airway sizes: 100 Technique: Video laryngoscope Laryngoscope blade: Leos Blade size: 3 Grade view: II Airway type: ETT- cuffed Topical Anesthetic/Lubricant: Lubricant jelly Intubation assist devices: Stylet 14fr Airway location: Oral Device size: 7.5mm Secured at: 23 cm Secured by: Tape Measured from: Lips Placement verified: End tidal CO2 and Symmetric chest wall motion Condition: Atraumatic and Unchanged Insertion attempts: 1 Attempt 1 by: Travon Kerr Title: MOVER * Jorge Alberto Hoang MD - 12/01/2024 10:34 AM EDTAssociated Order(s): Arterial Line Placement Arterial Line Placement Procedure Date/time: 12/01/2024 10:32 AM Patient Location: OR holding area Indication: Continuous blood pressure monitoring Pre-Procedure checklist: Patient identified- 2 criteria, IV access functioning, Allergies confirmed, Sedation given, if needed, Procedure consent verified, Aseptic technique used, JAVIER recommended monitors applied, Timeout performed and Supplemental O2 applied, if needed Anesthesiologist: Jorge Alberto Hoang MD Placed By: Anesthesiologist Sterility prep: Provider hand hygiene prior to procedure, Provider used sterile gloves, gown, hat, mask and Sterile arterial line drape was used Skin prep: Chloraprep Local anesthetic: Lidocaine 1% 5ml intraderml Catheter Size: 20 gauge Catheter Length: 1 and 3/4 inch Catheter Type: Arrow Technique: Ultrasound guided Laterality: Right Site: Radial (Ultrasound [US] was used to identify potential site for the arterial line. Using US, the radial artery was assessed and noted to be patent. US was used live-time to gain needle access to the artery and the wire was visualized within the vessel lumen. The artery appeared anatomically normal. A permanent image was recorded. The vascular structures appear to be normal and no anatomicalpathology noted during line placement.) Insertion attempts: 1 Line Secured: Biopatch applied and Tegaderm Events: Patient tolerated procedure well with no complications Ultrasound Image of the block is attached/scanned to the [employer] chart. documented in this encounter OR Notes * Anesthesia Postprocedure Evaluation - Braulio Amato MD - 12/01/2024 6:06 PM EDT Post-Anesthesia Evaluation Note Patient Name: Ernst Pugh Patient Date: December 01, 2024 Post-Anesthesia Evaluation Patient Location: PACU Post op vitals: stable Difficult airway: no Nausea controlled: yes Level of consciousness: awake Post anesthesia pain: adequate analgesia Airway patency: patent Respiratory status: room air Cardiovascular status: stable Hydration status: euvolemic Temperature: Normothermia Perioperative complications: NONE Vitals Value Taken Time BP 146/86 12/01/24 18:00 Resp 17 12/01/24 18:00 SpO2 99 % 12/01/24 18:00 Temp 36.8 ??C (98.3 ??F) 12/01/24 18:00 Pulse 85 12/01/24 18:00 * Anesthesia Preprocedure Evaluation - Jorge Alberto Hoang MD - 12/01/2024 8:54 AM EDT Pre-Anesthesia Evaluation Note Patient Name: Ernst Pugh Sex: male Patient : 1975 Age: 49 y.o. Patient Date: December 01, 2024 Procedure(s): LEFT DAVINCI ROBOTIC NEPHROURETERECTOMY, CYSTOSCOPY, TRANSURETHRAL RESECTION OF THE BLADDER TUMOR Anesthesia Evaluation Previous anesthesia. No history of anesthetic complications (motion sickness): No family history of anesthesia complications: Airway Mallampati: II TM distance: >3 FB Neck ROM: full No increased risk of difficult airway Dental Dental exam findings: upper dentures and lower dentures Pulmonary (+) History of tobacco use (35.5 pack years): current Physical exam: Comments: Clear to auscultation (-) no URI cough sputum Cardiovascular Comments: Patient follows [facility]-Dr Andrade -Last saw 09/2024-scanned in media 09/19/2024 Heart cath at [facility] scanned in media (+)Hypertension: well controlled Hyperlipidemia CAD/CO (10/2024 CT noted Moderate coronary artery calcification.; VIC RCA 09/19/2024): Coronary Stents Peripheral arterial disease (10/2024 LISBET 1-39% & LICA 40-59%): Carotid Disease Shortness of breath: GALLARDO Physical exam: Rhythm: regular Rate: normal (-) no angina Neuro/Psych (-) seizures and no cerebrovascular disease GI/Hepatic/Renal Comments: Ureteral mass (+)GERD/PUD: well controlled Endo/Other Comments: Raynaud's (+)anticoagulation therapy (81mg ASA & Effient) (-) no recreational drug use [employer] Additional Pre-evaluation comments CBC/BMP/T&S ordered 11/07/2024 CBC/CMP reviewed WBC 13.1 11/07/2024 EKG SR 09/27/2024 EKG SR 10/2024 ECHO Conclusions * Left ventricular chamber dimension is normal. * Left ventricular function is normal with an estimated ejection fraction of 60-65%. * The left ventricular diastolic function is normal. * Right ventricular systolic function is normal. * Unable to estimate pulmonary arterial systolic pressure due to lack of tricuspid regurgitation jet. Opioids : Naive BMI 36.46 Anesthesia Plan ASA 3 Last solid intake: The patient has not eaten within the last 8 hours. Last clear liquid intake: The patient has not had clear liquids within the last 2 hours. Last tobacco use: The patient has not used tobacco today. Anesthesia Plan: general Induction: intravenous Monitors: STD and A-line Patient recently had PCI on 09/27/2024 (VIC x 1 to RCA) at [facility]. Pt was scheduled to have additional PCI to LAD and circ however pt wanted a second opinion for possible CABG surgery. He was seen by CTS (Dr. Kenny) on 10/10/2024 CTS planning CABG x 2 with QUINTIN clip--> currently on hold d/t urologic malignancy. Currently surgery is scheduled at [facility]--discussed with Dr Bloom and surgery will need to be moved to [place] Will reach out to CTS and ensure patient is able to hold blood thinners for surgery Patient follows Dr Andrade in [facility]--will request records--recent heart cath and office note. However per patient and spouse planning on obtaining a new rural carrier associate after CABG. In addition, PCP at [facility]-Dr Perez in [place]. Per patient he saw yesterday 11/23/2024. Will request office note and recent testing as well --- Today I emphasized the risk of ACS during surgery. We will do an theo alongside 5 lead EKG monitoring. Management will include limiting cardiac demand (low HR, low-normal BP) while maximizing oxygendelibery (FiO2 = 100, transfusion as need be) PONV Risk Score: 2. Score of 2 is Moderate Risk for PONV, at least one antiemetic indicated for prophylaxis. Informed consent Anesthetic plan and risks discussed with: patient. Use of blood products discussed with patient whom. Cardiology Clearance Requested Chart Reviewed and patient examined documented in this encounter Miscellaneous Notes * PAT Pre Evaluation for Anesthesia - Susan Grossman APRN - 11/23/2024 8:45 AM EDT Pre-Anesthesia Evaluation Note Patient Name: Ernst Pugh Sex: male Patient : 1975 Age: 49 y.o. Patient Date: November 23, 2024 Procedure(s): LEFT DAVINCI ROBOTIC NEPHROURETERECTOMY, CYSTOSCOPY, TRANSURETHRAL RESECTION OF THE BLADDER TUMOR Anesthesia Evaluation Previous anesthesia. No history of anesthetic complications (motion sickness): No family history of anesthesia complications: Airway Neck ROM: full No increased risk of difficult airway Dental Dental exam findings: upper dentures and lower dentures Pulmonary (+) History of tobacco use (35.5 pack years): current Physical exam: Comments: Clear to auscultation (-) no URI cough sputum Cardiovascular Comments: Patient follows [facility]-Dr Andrade -Cesario saw 09/2024-scanned in media 09/19/2024 Heart cath at [facility] scanned in media (+)Hypertension: well controlled Hyperlipidemia CAD/CO (10/2024 CT noted Moderate coronary artery calcification.; VIC RCA 09/19/2024): Coronary Stents Peripheral arterial disease (10/2024 LISBET 1-39% & LICA 40-59%): Carotid Disease Shortness of breath: GALLARDO Physical exam: Rhythm: regular Rate: normal (-) no angina Neuro/Psych (-) seizures and no cerebrovascular disease GI/Hepatic/Renal Comments: Ureteral mass (+)GERD/PUD: well controlled Endo/Other Comments: Raynaud's (+)anticoagulation therapy (81mg ASA & Effient) (-) no recreational drug use [employer] Additional Pre-evaluation comments CBC/BMP/T&S ordered 11/07/2024 CBC/CMP reviewed WBC 13.1 11/07/2024 EKG SR 09/27/2024 EKG SR 10/2024 ECHO Conclusions * Left ventricular chamber dimension is normal. * Left ventricular function is normal with an estimated ejection fraction of 60-65%. * The left ventricular diastolic function is normal. * Right ventricular systolic function is normal. * Unable to estimate pulmonary arterial systolic pressure due to lack of tricuspid regurgitation jet. Opioids : Naive BMI 36.46 Anesthesia Plan Anesthesia Plan: general Monitors: STD, A-line and CVP Patient recently had PCI on 09/27/2024 (VIC x 1 to RCA) at [facility]. Pt was scheduled to have additional PCI to LAD and circ however pt wanted a second opinion for possible CABG surgery. He was seen by CTS (Dr. Kenny) on 10/10/2024 CTS planning CABG x 2 with QUINTIN clip--> currently on hold d/t urologic malignancy. Currently surgery is scheduled at [facility]--discussed with Dr Bloom and surgery will need to be moved to [place] Will reach out to CTS and ensure patient is able to hold blood thinners for surgery Patient follows Dr Andrade in [facility]--will request records--recent heart cath and office note. However per patient and spouse planning on obtaining a new rural carrier associate after CABG. In addition, PCP at [facility]-Dr Perez in [place]. Per patient he saw yesterday 11/23/2024. Will request office note and recent testing as well PONV Risk Score: 2. Score of 2 is Moderate Risk for PONV, at least one antiemetic indicated for prophylaxis. 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 -10/2024 ECHO reviewed HTN -BP 119/65 -denies CP -+SOB -11/07/2024 EKG reviewed Vascular Disease: PAD and Carotid stenosis PAD Carotid stenosis -10/2024 LISBET 1-39% & LICA 40-59% -10/2024 Carotid US reviewed Additional Diagnosis: Blood thinners Ureteral mass Effient & 81mg ASA [employer] WORK[employer] Subjective: Patient here for preoperative management prior to Procedure(s): LEFT DAVINCI ROBOTIC NEPHROURETERECTOMY, CYSTOSCOPY, TRANSURETHRAL RESECTION OF THE BLADDER TUMOR . Patient needs evaluation due to increased risk for history of URETERAL MASS CO CAD PCI HTN PAD CAROTID STENOSIS SMOKER. IV fluids, acetaminophen ordered. Time-Based Billing Statement I spent 20 minutes in the care of this patient on this calendar day. Activities performed during this time include: Reviewing labs, Reviewing imaging, Reviewing external medical records, Obtaining or reviewing history (separately obtained), Performing the appropriate exam, Counseling and educating, Ordering medications, Ordering tests, Referring and communicating with another professional, Documenting clinical information in the EHR, and Independent review and interpretation of imaging The total time documented above did not include the following activities which were also performed on this calendar day: None Patient recently had PCI on 09/27/2024 (VIC x 1 to RCA) at [facility]. Pt was scheduled to have additional PCI to LAD and circ however pt wanted a second opinion for possible CABG surgery. He was seen by CTS (Dr. Kenny) on 10/10/2024 CTS planning CABG x 2 with QUINTIN clip--> currently on hold d/t urologic malignancy. Currently surgery is scheduled at [facility]--discussed with Dr Bloom and surgery will need to be moved to [place] Will reach out to CTS and ensure patient is able to hold blood thinners for surgery Patient follows Dr Andrade in [facility]--will request records--recent heart cath and office note. However per patient and spouse planning on obtaining a new rural carrier associate after CABG. In addition, PCP at [facility]-Dr Perez in [place]. Per patient he saw yesterday 11/23/2024. Will request office note and recent testing as well documented in this encounter Plan of Treatment Upcoming Encounters Date Type Department Care Team (Late st Contact Info) Description 01/23/2025 9:00 AM EDT Office Visit [facility] [address] [place] [address] [address] [place] [address] Logan Kenny MD [address] [place] [address] [place] [id number] documented as of this encounter Procedures Procedure Name Priority Date/Time Associated Diagnosis Comments INTRAOP AIRWAY PLACEMENT Routine 12/01/2024 11:33 AM EDT ANE US GUIDANCE Routine 12/01/2024 10:32 AM EDT documented in this encounter Results * INTRAOP AIRWAY PLACEMENT (12/01/2024 11:33 AM EDT) Narrative [facility] - 12/01/2024 11:33 AM EDT Desiree Kerr CRNA 12/01/2024 11:49 AM Intraop Airway Placement: Date/Time: 12/01/2024 11:33 AM Induction type: IV Mask size: Standard adult Pre-Oxygenation: Standard and BMI guided pre-O2 Mask ventilation: Moderate mask ventilation Mask ventilation improved by: Oral airway and Chinlift Oral airway sizes: 100 Technique: Video laryngoscope Laryngoscope blade: Leos Blade size: 3 Grade view: II Airway type: ETT- cuffed Topical Anesthetic/Lubricant: Lubricant jelly Intubation assist devices: Stylet 14fr Airway location: Oral Device size: 7.5mm Secured at: 23 cm Secured by: Tape Measured from: Lips Placement verified: End tidal CO2 and Symmetric chest wall motion Condition: Atraumatic and Unchanged Insertion attempts: 1 Attempt 1 by: Travon Kerr Title: MOVER us Jorge Alberto Hoang MD [place] ANESTHESIA Edited Resul t - Final [facility] [address] [place] [address] * JEFFERY US GUIDANCE (12/01/2024 10:32 AM EDT) Narrative [facility] - 12/01/2024 10:32 AM EDT Jorge Alberto Hoang MD 12/01/2024 10:34 AM Arterial Line Placement Procedure Date/time: 12/01/2024 10:32 AM Patient Location: OR holding area Indication: Continuous blood pressure monitoring Pre-Procedure checklist: Patient identified- 2 criteria, IV access functioning, Allergies confirmed, Sedation given, if needed, Procedure consent verified, Aseptic technique used, JAVIER recommended monitors applied, Timeout performed and Supplemental O2 applied, if needed Anesthesiologist: Jorge Alberto Hoang MD Placed By: Anesthesiologist Sterility prep: Provider hand hygiene prior to procedure, Provider used sterile gloves, gown, hat, mask and Sterile arterial line drape was used Skin prep: Chloraprep Local anesthetic: Lidocaine 1% 5ml intraderml Catheter Size: 20 gauge Catheter Length: 1 and 3/4 inch Catheter Type: Arrow Technique: Ultrasound guided Laterality: Right Site: Radial (Ultrasound [US] was used to identify potential site for [...] and no anatomical pathology noted during line placement.) Insertion attempts: 1 Line Secured: Biopatch applied and Tegaderm Events: Patient tolerated procedure well with no complications Ultrasound Image of the block is attached/scanned to the epic chart. us Jorge Alberto Hoang MD ANESTHESIA ORDERABLES Final Result [place] [id number] documented in this encounter Visit Diagnoses Not on filedocumented in this encounter Administered Medications Inactive Administered Medications - up to 1 most recent administrations Medication Order MAR Action Action Date Dose Rate Site 0.9 % NaCl infusion Intravenous, CONTINUOUS PRN, Starting on Wed12/01/24 at 1121, Until Wed12/01/24 at 1648, Anesthesia Intra-op New Bag 12/01/2024 11:21 AM EDT cefTRIAXone in dextrose (ROCEPHIN) 1 gram/50 mL IVPB 1 g 1 g, Intravenous, SHOE TRIMMER TO O.R., 1 dose, On Wed12/01/24 at 0900, Administer over 30 Minutes, Reason for Therapy: Surgical Prophylaxis Given 12/01/2024 11:38 AM EDT 1 g dexAMETHasone (DECADRON) injection Intravenous, PRN (Anesthesia), Starting on Wed12/01/24 at 1137, Until Wed12/01/24 at 1648, Anesthesia Intra-op Given 12/01/2024 11:37 AM EDT 4 mg esmoloL (BREVIBLOC) injection Intravenous, PRN (Anesthesia), Starting on Wed12/01/24 at 1631, Until Wed12/01/24 at 1648, Anesthesia Intra-op Given 12/01/2024 4:38 PM EDT 20 mg fentaNYL (SUBLIMAZE) injection Intravenous, PRN (Anesthesia), Starting on Wed12/01/24 at 1126, Until Wed12/01/24 at 1648, Anesthesia Intra-op Given 12/01/2024 11:30 AM EDT 50 mcg HYDROmorphone (DILAUDID) injection Intravenous, PRN (Anesthesia), Starting on Wed12/01/24 at 1201, Until Wed12/01/24 at 1648, Anesthesia Intra-op Given 12/01/2024 2:28 PM EDT 0.5 mg lactated ringers infusion Intravenous, at 50 mL/hr, PREPROCEDURE CONTINUOUS, Starting on Amelia 11/30/24 at 0816, Until Wed12/01/24 at 1819, To be given in SDS/Pre-op Holding Area, Pre-op (Holding/SDS Meds) New Bag 12/01/2024 4:05 PM EDT lidocaine 1% 10 mg/mL (1 %) injection Intravenous, PRN (Anesthesia), Starting on Wed12/01/24 at 1130, Until Wed12/01/24 at 1648, Anesthesia Intra-op Given 12/01/2024 4:15 PM EDT 50 mg ondansetron (ZOFRAN) injection Intravenous, PRN (Anesthesia), Starting on Wed12/01/24 at 1549, Until Wed12/01/24 at 1648, Anesthesia Intra-op Given 12/01/2024 3:49 PM EDT 4 mg propofoL (DIPRIVAN) injection Intravenous, PRN (Anesthesia), Starting on Wed12/01/24 at 1202, Until Wed12/01/24 at 1648, Anesthesia Intra-op Given 12/01/2024 4:15 PM EDT 20 mg rocuronium injection Intravenous, PRN (Anesthesia), Starting on Wed12/01/24 at 1131, Until Wed12/01/24 at 1648, Anesthesia Intra-op Given 12/01/2024 3:11 PM EDT 20 mg sugammadex (BRIDION) injection Intravenous, PRN (Anesthesia), Starting on Wed12/01/24 at 1627, Until Wed12/01/24 at 1648, Anesthesia Intra-op Given 12/01/2024 4:27 PM EDT 250 mg documented in this encounter 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
--- OUTSIDE RECORDS SUMMARY | 2024-12-22 14:00 | XMS_ITS | Encounter Summary ---
Author Organization [place] [address] Care Team Providers Care Market Research Specialist Name Role Phone Reyna Perez APRN Primary Care Provider [phone] Reason for Visit * Reason Comments Post-Operative [...] to get cardiac stents placed, would like [facility] to clear him for this. Seeing cardiology next week, they will let him know when to start blood thinner again. wants to know more about chemo pill for patient. Encounter Details Date Type Department Care Team (Late st Contact Info) Description 12/22/2024 2:00 PM EDT Office Visit [facility] [address] [place] [address] Dorinda Rodriguez, PARandolph [address] [place] [address] Postoperative visit (Primary Dx); Malignant [...] drink = 0.6 oz pur e alcohol) [facility] Utilities Answer Date Recorded In the past 12 months has [employer], gas, oil, or water company threatened to shut off services in your home? No 12/04/2024 Overall Financial Resource Strain (CARDIA) Answe r Date Recorded How hard is it for you to pa y for the very basics like food, housing, medical care, and heating? Somewhat hard 12/04/2024 PHQ-2 Answer Date Recorded PHQ-2 Total Score 0 12/04/2024 [facility] - Occupational Stress Questionnaire Answer Date Recorded [...] have money to get more. Never true [facility] Transportation Answer D ate Recorded [...] 8:06 PM EDT documented in this encounter Progress Notes * Dorinda Rodriguez PA-C - 12/22/2024 2:00 PM EDT Images from the original note were not included. [facility] Chief Complaint: Chief Complaint Patient presents with Post-Operative Exam Here today for his post-op visit. His left side and abdomen still hurts a little, getting better though. Also voiding a lot during the day. Otherwise, no urinary symptoms. Was given a second round ofantibiotics to treat his C.diff, stool still loose but this is normal for him. Wants to get cardiacstents placed, would like [facility] to clear him for this. Seeing cardiology next week, they will let himknow when to start blood thinner again. wants to know more about chemo pill for patient. Diagnosis: 1. Postoperative visit SEP URINALYSIS POC 2. Malignant neoplasm of left ureter (HCC) SEP URINALYSIS POC 3. S/p nephrectomy SEP URINALYSIS POC 4. C. difficile diarrhea SEP URINALYSIS POC History of Present Illness: Ernst Pugh is a 49 y.o. male who presents today for a post-op visit s/p cystoscopy and transurethral incision of left ureteral orifice; robot-assisted laparoscopic left radical nephroureterectomy on12/01/[address] Sadi Haney MD. Initially established with Dr. Patricia Ellison MD. 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 - Resection margins negative for carcinoma - Kidney and bladder cuff with chronic inflammation, negative for carcinoma. - Adrenal gland negative for carcinoma. Per MD: Surveillance with cysto q 3 mo x 2 ys, q 6 mo for 2 yrs and then q yr; CTU q 6 mo for 5 yrsand then annually - with Dr. CHANDLER. Has been recovering well since his procedure. Appetite has improved, no concerns for constipation. Pain is very well managed with Tylenol; does report persistent tenderness/discomfort over his left abdomen/flank. Also with urinary frequency. Incisions healing well. Trying to work on ambulating. Hasincreased water intake and has quit smoking. Denies shortness of breath, chest pain, fever, chills,N/V, gross hematuria, dysuria. would like to know if he needs to restart his Lasix, also would like to know if he can have cardiac stents placed. Plans to see cardiology on 01/23 to discuss this. No additional concerns today. Of note, was diagnosed with C.diff before his discharge from the hospital on 12/08, was on VancomycinQID, course finished ~3 days ago, per patient. Has not had repeat stool testing yet. Was given an additional antibiotic by his PCP, Fidaxomicin, BID x 5 days, then 1 tablet QOD x 20 days since his stool is still stool loose/not-formed. However, states this is his baseline and does not know if he would take antibiotic or not. UA: Trace blood, otherwise unremarkable. Review of Systems: ROS negative for HEENT, respiratory,cardiovascular,gastrointestinal,endocrine,hematology,neurologic, psychiatric,skin, and musculo-skeletal systems except as otherwise documented in the HPI. Medical/Surgical History: Past Medical History: Diagnosis Date Anxiety CAD (coronary artery disease) Cancer (HCC) GERD (gastroesophageal reflux disease) Heartburn Hyperlipidemia Hypertension Kidney mass left PR (myocardial infarction) (HCC) 09/17/2024 Motion sickness Past Surgical History: Procedure Laterality Date BLADDER TUMOR EXCISION N/A 12/01/2024 Surgeon: Sadi Haney MD; Location: [facility] MAIN OR; Service: Urology CARDIAC CATHETERIZATION CORONARY ANGIOPLASTY WITH STENT PLACEMENT Sep 19 2022 CYSTOSCOPY 10/27/2024 Surgeon: Patricia Ellison MD; Location: [facility] MAIN OR; Service: Urology FL CYSTOGRAM MINIMUM 3 VW 12/07/2024 FL CYSTOGRAM MINIMUM 3 VW 12/07/2024 [facility] XRAY TOTAL NEPHRECTOMY Left 12/01/2024 LEFT DAVINCI ROBOTIC NEPHROURETERECTOMY, CYSTOSCOPY, TRANSURETHRAL RESECTION OF THE BLADDER TUMOR; Surgeon: Sadi Haney MD; Location: [facility] MAIN OR; Service: Urology Medications: Current Outpatient Medications Medication acetaminophen 325 mg Oral Tab aspirin 81 mg Oral Tablet, Delayed Release (E.C.) atorvastatin (LIPITOR) 80 mg Oral Tablet Bacillus coagulans-inulin 1 billion-250 cell-mg Oral Capsule cholecalciferol, vitamin D3, 25 mcg (1,000 unit) Oral Tablet Coenzyme Q10 100 mg Oral Capsule hydrOXYzine (VISTARIL) 25 mg Oral Capsule losartan (COZAAR) 50 mg Oral Tablet metoprolol succinate (TOPROL-XL) 25 mg Oral Tablet Sustained Release 24 hr prasugreL HCl (EFFIENT) 10 mg Oral Tablet tolterodine (DETROL LA) 4 mg Oral Capsule, Sust. Release 24 hr famotidine (PEPCID) 40 mg Oral Tablet fUROsemide (LASIX) 40 mg Oral Tablet HYDROcodone-acetaminophen (NORCO) 5-325 mg Oral Tablet lansoprazole (PREVACID) 30 mg Oral Capsule, Delayed Release(E.C.) nicotine (NICODERM CQ) 21 mg/24 hr TD Patch 24 hr prochlorperazine (COMPAZINE) 10 mg Oral Tablet No current facility-administered medications for this visit. Allergies: Patient has no known allergies. Social/Family History: Social History Socioeconomic History Marital status: [...] Social Drivers of Health Financial Resource Strain: Medium Risk (12/04/2024) Overall Financial Resource Strain (CARDIA) Difficulty of Paying Living Expenses: Somewhat hard Food Insecurity: Food Insecurity Present (12/04/2024) Hunger Vital Sign Worried About Running Out of Food in the Last Year: Sometimes true Ran Out of Food in the Last Year: Never true Transportation Needs: No Transportation Needs (12/04/2024) [facility] Transportation In the past 12 months, has lack of reliable transportation kept you from medical appointments, meetings, work or from getting things needed for daily living?: No Physical Activity: Inactive (12/04/2024) Exercise Vital Sign Days of Exercise per Week: 0 days Minutes of Exercise per Session: 0 min Stress: Stress Concern Present (12/04/2024) [employer] [facility] - Occupational Stress Questionnaire Feeling of Stress : To some extent Social Connections: Not on file Intimate Partner Violence: Not on file Housing Stability: Not on file Family History Problem Relation Age of Onset Asthma Mother 60 - 69 High Cholesterol Father High Blood Pressure Father Heart Disease Father Diabetes Father Cancer Father Asthma Father 80 - 99 Anesth Problems Neg Hx The following portions of the patient's history were reviewed and updated as appropriate: past medical history, past surgical history, current medications, allergies, past social history, past familyhistory, problem list. Physical Exam: Vital signs and nursing notes reviewed Blood pressure 138/86, pulse 95, temperature 98.6 ??F (37 ??C), weight 230 lb 9.6 oz (104.6 kg), SpO2 97%. Constitutional: Oriented to person, place, and time Head: Normocephalic Eyes: Conjunctivae and extraocular motions are normal Neck: Normal range of motion Cardiovascular: Normal rate and regular rhythm Pulmonary: Normal respiratory effort, no respiratory distress Abdominal: No distention, incisions c/d/i with glue/scabs overlying, no erythema, purulent discharge, edema. No signs of infection, hematoma. Musculoskeletal: normal range of motion without deformity Neurological: Grossly normal Labs: Lab Results Component Value Date CREATININE 0.96 12/08/2024 Assessment: Diagnoses and all orders for this visit: Postoperative visit - SEP URINALYSIS POC Malignant neoplasm of left ureter (HCC) (Chronic) - SEP URINALYSIS POC S/p nephrectomy - SEP URINALYSIS POC C. difficile diarrhea - SEP URINALYSIS POC Plan: 49-year old male s/p /p cystoscopy and transurethral incision of left ureteral orifice; robot-assisted laparoscopic left radical nephroureterectomy on 12/01/[address] Sadi Haney MD. -Has been recovering well since his d/c from the hospital on 12/08. -UA today unremarkable other than trace blood, no concerns for infection. -Incisions c/d/I with glue/scabs overlying, no erythema, purulent discharge, edema. -With left-sided MSK tenderness/discomfort, urinary frequency- discussed both are likely post-operative in nature, should continue to improve the further out from his surgical date he becomes. -Restrictions reviewed: -No lifting anything heavier than 10 lbs for 3-4 weeks. -No strenuous activity such as lawn mowing etc for 4 weeks. -No contact activity or sports for 4 weeks. -To get up and walk at least 6x/day. -Encouraged patient/ to reach out to cardiology in regards to restarting Lasix. -Per 's request, will ask MD about cardiac stents. -Reviewed surveillance recommendations based on pathology report: -Surveillance with cysto q 3 mo x 2 ys, q 6 mo for 2 yrs and then q yr; CTU q 6 mo for 5 yrs and then annually. -Patient okay to do CTU in 6 months. -However, adamantly refused cystoscopy. Per patient, I do not want anyone to shove anything up there again . -Will inform MD. - interested in chemo pill' for patient to take in lieu of cystoscopy, stated she discussed this with MD, I will ask. -Encouraged him to take C.diff antibiotics as instructed by PCP. -Follow-up to be determined for now, pending MD recommendations. All questions answered to the best of my ability. Patient verbalized understanding and was agreeable to care plan. Dorinda Rodriguez PA-C Cosigned by Patricia Ellison MD at 12/29/2024 11:53 PM EDT documented in this encounter Plan of Treatment Upcoming Encounters Date Type Department Care Team (Late st Contact Info) Description 01/23/2025 9:00 AM EDT Office Visit [facility] [place] [address] [place] [address] [address] [place] [address] Logan Kenny MD [address] [place] [address] K[place] SE[place]ERS [address] documented as of this encounter Procedures Procedure Name Priority Date/Time Associated Diagnosis Comments SEP URINALYSIS POC Routine 12/22/2024 2: 00 PM EDT Postoperative visit 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 difficile diarrhea documented in this encounter Results * (ABNORMAL) [facility] URINALYSIS POC (12/22/2024 2:00 PM EDT) UA Color POC Yellow Color 12/22/2024 2:02 PM EDT [facility] UA Appear POC Clear Clear 12/22/2024 2:02 PM EDT [facility] UA Gluc POC Negative Negative mg/dL 12/22/2024 2:02 PM EDT [facility] UA Bili POC Negative Negative 12/22/2024 2:02 PM EDT [facility] UA Ketones POC Negative Negative mg/dL 12/22/2024 2:02 PM EDT [facility] UA SG POC 1.020 1.001 - 1.035 no units 12/22/2024 2:02 PM EDT [facility] UA Blood POC Trace-Intact (A) Negative 12/22/2024 2:02 PM EDT [facility] UA pH POC 6.5 5.0 - 8.0 pH 12/22/2024 2:02 PM EDT [facility] UA Protein POC Negative Negative mg/dL 12/22/2024 2:02 PM EDT [facility] UA Urobilinogen POC 0.2 0.2, 1.0 12/22/2024 2:02 PM EDT [facility] UA Nitrite POC Negative Negative 12/22/2024 2:02 PM EDT [facility] UA Leuk Est POC Negative Negative 2:02 PM EDT [facility] Urine STRUCTURE OF URINARY TRACT PROPER / Unknown 12/22/2024 2:00 PM EDT 12/22/2024 2:02 PM EDT us Dorinda Rodriguez PA-C POINT OF CARE TEST ORDERAB LES Final Result [facility] [address] [place] [address] documented in this encounter Visit Diagnoses Diagnosis Postoperative visit- Primary Malignant neoplasm of left ureter (HCC) Malignant neoplasm of ureter S/p nephrectomy Acquired absence of kidney C. difficile diarrhea Intestinal infection due to clostridium difficile documented in this encounter Additional Health Concerns Infection Onset Date Last Indicated Resolved Time C-diff 12/06/2024 12/06/2024 documented as of this encounter Care Teams Market Research Specialist Relationship Specialty Start Date End Date Reyna Perez APRN [address] [place] [address] [address] [place] [address] PCP - General Nurse Practitioner 10/27/24 documented as of this encounter
--- OUTSIDE RECORDS SUMMARY | 2025-01-03 08:19 | XMS_ITS | Encounter Summary ---
Author Organization [place] [place] [address] Care Team Providers Care Chemical Engineer Name Role Phone Reyna Perez DEMETRIUS Primary Care Provider [phone] Reason for Visit * Reason Onset Date Comments Schedule Appointment 12/08/2024 Encounter Details Date Type Department Care Team (Late st Contact Info) Description 12/08/2024 Telephone [facility]rology [facility] [address] [place] [address] Dorinda Rodriguez PA-C [address] [place] [address] Schedule Appointment Social History Tobacco Use Types Packs/Day Years Used Date Smoking Tobacco: Every Day Cigarettes 1 37.2 Started: 05/10/1989 Smokeless Tobacco: Never Alcohol Use Standard Drinks/Week Comments Not Currently 0 (1 standard drink = 0.6 oz pur e alcohol) [facility] Utilities Answer Date Recorded In [...] Date Recorded PHQ-2 Total Score 0 12/04/2024 [facility] [place] of Occupat ional Health - Occupational Stress [...] have money to get more. Never true [facility] IP Transportation Answer D ate Recorded In [...] Description 01/23/2025 9:00 AM EDT Office Visit [facility] Cardiac Surgeons [address] [place] [address] Logan Kenny MD [address] [place] [address] documented as of this encounter Visit Diagnoses Not on filedocumented in this encounter Additional Health Concerns Infection Onset Date Last Indicated Resolved Time C-diff 12/06/2024 12/06/2024 documented as of this encounter Care Teams Chemical Engineer Relationship Specialty Start Date End Date Reyna Perez APRN [address] [facility] [address] [place] [address] PCP - General Nurse Practitioner 10/27/24 documented as of this encounter
--- OUTSIDE RECORDS SUMMARY | 2025-01-03 08:20 | XMS_ITS | Encounter Summary ---
Author Organization [facility] [place] [address] Care Team Providers Care Shear Operator Automatic Name Role Phone Reyna Perez DEMETRIUS Primary Care Provider [phone] Reason for Visit * Reason Onset Date Comments Schedule Appointment 12/04/2024 Encounter Details Date Type Department Care Team (Late st Contact Info) Description 12/04/2024 Telephone [facility] [place] [address] [place] [phone] Sadi Haney MD [address] [facility] [address] [place], [place] [id number] Schedule Appointment Social History Tobacco Use Types Packs/Day Years Used Date Smoking Tobacco: Every Day Cigarettes 1 37.2 Started: 05/10/1989 Smokeless Tobacco: Never Alcohol Use Standard Drinks/Week Comments Not Currently 0 (1 standard drink = 0.6 oz pur e alcohol) [facility] Utilities Answer Date Recorded In the past 12 months has Sales Layer, gas, oil, or water [place] threatened to shut off services in your home? No 12/04/2024 Overall Financial Resource Strain (CARDIA) Answe r Date Recorded How hard is it for you to pa y for the very basics like food, housing, medical care, and heating? Somewhat hard 12/04/2024 PHQ-2 Answer Date Recorded PHQ-2 Total Score 0 12/04/2024 [facility] [place] of Occupat ional Health - Occupational Stress [...] have money to get more. Never true [facility] IP Transportation Answer D ate Recorded [...] 01/23/2025 9:00 AM EDT Office Visit [facility] Cardiac Surgeons [address] [place] [address] Logan Kenny MD [address] [place] [address] documented as of this encounter Visit Diagnoses Not on filedocumented in this encounter Additional Health Concerns Infection Onset Date Last Indicated Resolved Time R/O C-Diff 12/06/2024 12/06/2024 12/06/2024 1:17 PM EDT C-diff 12/06/2024 12/06/2024 documented as of this encounter Care Teams Shear Operator Automatic Relationship Specialty Start Date End Date Reyna Perez APRN [address] [facility] [address] [place] [id number] PCP - General Nurse Practitioner 10/27/24 documented as of this encounter
--- OUTSIDE RECORDS SUMMARY | 2025-01-03 08:20 | XMS_ITS | Encounter Summary ---
Author Organization [facility] [place] [address] Care Team Providers Care Residential Building Inspector Name Role Phone Reyna Perez APRN Primary Care Provider [phone] Encounter Details Date Type Department Care Team [...] 8:11 PM EDT Viri Segura RN * [place] Suicide Severity Rating Scale (Q shift for [...] Description 01/23/2025 9:00 AM EDT Office Visit [facility] Cardiac Surgeons [address] [place] [address] Logan Kenny MD [address] [place] [address] documented as of this encounter Visit Diagnoses Not on filedocumented in this encounter Care Teams Residential Building Inspector Relationship Specialty Start Date End Date Reyna Perez APRN [address] [facility] [address] [place] [address] PCP - General Nurse Practitioner 10/27/24 documented as of this encounter
--- OUTSIDE RECORDS SUMMARY | 2025-01-03 08:21 | XMS_ITS | Encounter Summary ---
Author Organization [facility] [place] [address] Care Team Providers Care Access Database Developer Name Role Phone Reyna Perez DEMETRIUS Primary Care Provider [phone] Encounter Details Date Type Department Care Team [...] 3:23 AM EDT Tommy Lugo RN * [place] Suicide Severity Rating Scale (Q shift for [...] Visit [facility] Cardiac Surgeons [address] [place] [address] Logan Kenny MD [address] [place] [address] documented as of this encounter Visit Diagnoses Not on filedocumented in this encounter Care Teams Access Database Developer Relationship Specialty Start Date End Date Reyna Perez APRN [address] [facility] [address] [place] [address] PCP - General Nurse Practitioner 10/27/24 documented as of this encounter
--- OUTSIDE RECORDS SUMMARY | 2025-01-03 08:21 | XMS_ITS | Encounter Summary ---
Author Organization [facility] [place] [address] Care Team Providers Care Morphologist Name Role Phone Reyna Perez APRN Primary Care Provider [phone] Encounter Details Date Type Department Care Team [...] Description 01/23/2025 9:00 AM EDT Office Visit [facility] Cardiac Surgeons [address] [place] [address] Logan Kenny MD [address] [place] [address] documented as of this encounter Visit Diagnoses Not on filedocumented in this encounter Care Teams Morphologist Relationship Specialty Start Date End Date Reyna Perez APRN [address] [facility] [address] [place] [address] PCP - General Nurse Practitioner 10/27/24 documented as of this encounter
--- OUTSIDE RECORDS SUMMARY | 2025-01-03 08:22 | XMS_ITS | Encounter Summary ---
Author Organization [place] [address] Care Team Providers Care Boom Worker Name Role Phone Reyna Perez DEMETRIUS Primary Care Provider [phone] Reason for Visit * Reason Onset Date Comments Respiratory Distress 11/07/2024 Encounter Details Date Type Department Care Team (Late st Contact Info) Description 11/07/2024 Nurse Triage [facility] Nurse Now [address] [place] [address] Renetta Jolly RN Social History [...] Jolly RN - 11/07/2024 2:17 AM EDT [facility] Nurse Triage -Chief Complaint: Difficulty breathing . shortness of breath w/ exertion is baseline . this episode has been going on a few hours . still urinating blood from bx . takes asa . on abx due to possible UTI -Reported by: Spouse -Vitals: 97%, 127/77, 74 - no fever -Disposition per protocol: ED -Follow up/Concerns: Care advice provided. SC to Legal Arbitrator: AMEENA Black Per Legal Arbitrator: Thumbs up Patient advised: Yes Reason for Disposition Major surgery in the past month Protocols used: Breathing Mmutiwazva-N-EI documented in this encounter Plan of Treatment Upcoming Encounters Date Type Department Care Team (Late st Contact Info) Description 01/23/2025 9:00 AM EDT Office Visit [facility] Cardiac Surgeons [address] [place] [address] Logan Kenny MD [address] [place] [address] documented as of this encounter Visit Diagnoses Not on filedocumented in this encounter Care Teams Boom Worker Relationship Specialty Start Date End Date Reyna Perez APRN [address] [facility] [address] [place] [address] PCP - General Nurse Practitioner 10/27/24 documented as of this encounter
--- OUTSIDE RECORDS SUMMARY | 2025-01-03 08:22 | XMS_ITS | Encounter Summary ---
Author Organization [place] [address] Care Team Providers Care Preparole Counseling Aide Name Role Phone Reyna Perez DEMETRIUS Primary Care Provider [phone] Reason for Referral * (Routine) - Pending Review Specialty Diagnoses / Procedures Referred By Juan R acosta Referred To Contact Diagnoses Ureteral mass Procedures AMB URO SURGERY COMM ORDER Patricia Ellison MD [address] [place] [address] Phone: tel: fax: Referral ID Status Reason Start Date Expiration Date V isits Requested Visits Authorized [id number] Pending Review 11/05/2024 11/05/2025 1 1 Reason for Visit * Reason Onset Date Comments Information Only 11/05/2024 Encounter Details Date Type Department Care Team (Late st Contact Info) Description 11/05/2024 Results Follow-Up [facility] Urology NPTFTT [address] [place] [phone] Patricia Ellison MD [address] [place] [address] [phone] NON-SCRAP SORTER CYTOLOGY REQUEST, PATHOLOGY TISSUE REQUEST Social History [...] Visit [facility] Cardiac Surgeons [address] [place] [address] Logan Kenny MD [address] [place] [address] Scheduled Orders Name Type Priority Associated [...] 11/05/2024 documented in this encounter Care Teams Preparole Counseling Aide Relationship Specialty Start Date End Date Reyna Perez APRN [address] [facility] [address] [place] [phone] PCP - General Nurse Practitioner 10/27/24 documented as of this encounter
--- OUTSIDE RECORDS SUMMARY | 2025-01-03 08:23 | XMS_ITS | Encounter Summary ---
Author Organization [place] [address] Care Team Providers Care Toolroom Helper Name Role Phone Reyna Perez DEMETRIUS Primary Care Provider [phone] Encounter Details Date Type Department Care Team (Late st Contact Info) Description 10/19/2024 Results Follow-Up [facility] Cardiac Surgeons [place] [address] [facility] [address] [place] [address] ABDOMEN PELVIS WO ORAL WITH IV CONTRAST Social History Tobacco Use Types Packs/Day Years Used Date Smoking Tobacco: Every Day Cigarettes 1 35.7 Started: 1990 Smokeless Tobacco: Never Alcohol Use Standard Drinks/Week Comments Not Currently 0 (1 standard drink = 0.6 oz pur e alcohol) [facility] Utilities Answer Date Recorded In [...] 0 12/04/2024 [facility] [place] of Occupat ional Health - Occupational Stress [...] have money to get more. Never true [facility] IP Transportation Answer D ate Recorded In [...] 8:11 PM EDT Viri Segura RN * [place] Suicide Severity Rating Scale (Q shift for [...] [facility] Cardiac Surgeons [address] [place] [address] Logan Kenny MD [address] [place] [address] documented as of this encounter Visit Diagnoses Not on filedocumented in this encounter Additional Health Concerns Infection Onset Date Last Indicated Resolved Time R/O C-Diff 12/06/2024 12/06/2024 12/06/2024 1:17 PM EDT C-diff 12/06/2024 12/06/2024 documented as of this encounter Care Teams Toolroom Helper Relationship Specialty Start Date End Date Reyna Perez APRN 12[address] [facility] [address] [place] [address] PCP - General Nurse Practitioner 10/27/24 documented as of this encounter
--- OUTSIDE RECORDS SUMMARY | 2025-01-03 08:23 | XMS_ITS | Encounter Summary ---
Author Organization [place] [address] Care Team Providers Care Planer Feeder Name Role Phone Reyna Perez DEMETRIUS Primary Care Provider [phone] Reason for Visit * Reason Onset Date Comments Information Only 12/12/2024 Encounter Details Date Type Department Care Team (Late st Contact Info) Description 12/12/2024 Telephone SEP Nurse Now [facility] [place] [address] Abner Bar, LAY Information Only Social History Tobacco Use Types Packs/Day Years Used Date Smoking Tobacco: Every Day Cigarettes 1 37.2 Started: 05/10/1989 Smokeless Tobacco: Never Alcohol Use Standard Drinks/Week Comments Not Currently 0 (1 standard drink = 0.6 oz pur e alcohol) [facility] Utilities Answer Date Recorded In the [...] Date Recorded PHQ-2 Total Score 0 12/04/2024 [facility] [place] of Occupat ional Health - Occupational Stress [...] have money to get more. Never true [facility] IP Transportation Answer D ate Recorded In [...] blood work post hospital records via fax [phone]. documented in this encounter Plan of Treatment Upcoming Encounters Date Type Department Care Team (Late st Contact Info) Description 01/23/2025 9:00 AM EDT Office Visit [facility] Cardiac Surgeons [place] [address] [place] [address] [address] [place] [address] Logan Kenny MD [address] [place] [address] [place] [address] documented as of this encounter Visit Diagnoses Not on filedocumented in this encounter Additional Health Concerns Infection Onset Date Last Indicated Resolved Time C-diff 12/06/2024 12/06/2024 documented as of this encounter Care Teams Planer Feeder Relationship Specialty Start Date End Date Reyna Perez APRN [address] [place] [address] PCP - General Nurse Practitioner 10/27/24 documented as of this encounter
--- OUTSIDE RECORDS SUMMARY | 2025-01-03 08:23 | XMS_ITS | Encounter Summary ---
Author Organization [place] [address] Care Team Providers Care Emergency Preparedness Coordinator Name Role Phone Reyna Perez DEMETRIUS Primary Care Provider [phone] Reason for Visit * Reason Onset Date Comments Medication Question 12/10/2024 Encounter Details Date Type Department Care Team (Late st Contact Info) Description 12/10/2024 Nurse Triage SEP Nurse Now [address] [place] [address] Kiesha Gomez, LAY Social History Tobacco Use Types Packs/Day Years Used Date Smoking Tobacco: Every Day Cigarettes 1 37.2 Started: 05/10/1989 Smokeless Tobacco: Never Alcohol Use Standard Drinks/Week Comments Not Currently 0 (1 standard drink = 0.6 oz pur e alcohol) [facility] Utilities Answer Date Recorded In the [...] Date Recorded PHQ-2 Total Score 0 12/04/2024 [facility] of Occupat ional Health - Occupational Stress [...] have money to get more. Never true [facility] IP Transportation Answer D ate Recorded [...] discharge paperwork states to start losartan but independent insurance adjuster verbally said to hold it for now. BP 149/89, P 94- patient took metoprolol this morning and BP is not improving. 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 Dr Purdy ok to restart medication per [...] [facility] Cardiac Surgeons [place] [address] [place] [address] [address] [place] [address] Logan Kenny MD [address] [place] [address] [place] [address] documented as of this encounter Visit Diagnoses Not on filedocumented in this encounter Additional Health Concerns Infection Onset Date Last Indicated Resolved Time C-diff 12/06/2024 12/06/2024 documented as of this encounter Care Teams Emergency Preparedness Coordinator Relationship Specialty Start Date End Date Reyna Perez APRN 1210 [facility] [address] [place] [address] PCP - General Nurse Practitioner 10/27/24 documented as of this encounter
--- OUTSIDE RECORDS SUMMARY | 2025-01-03 08:23 | XMS_ITS | Encounter Summary ---
Author Organization [place] [address] Care Team Providers Care Humidifier Operator Name Role Phone Reyna Perez DEMETRIUS Primary Care Provider [phone] Encounter Details Date Type Department Care Team (Late st Contact Info) Description 10/20/2024 Results Follow-Up SEP Urology [facility] [address] [place] [address] Patricia Ellison MD [address] [place] [address] NON-BUILDING SURVEYOR CYTOLOGY REQUEST Social History Tobacco Use Types Packs/Day Years Used Date Smoking Tobacco: Every Day Cigarettes 1 35.7 Started: 1990 Smokeless Tobacco: Never Alcohol Use Standard Drinks/Week Comments Not Currently 0 (1 standard drink = 0.6 oz pur e alcohol) [facility] Utilities Answer Date Recorded In the past [...] Date Recorded PHQ-2 Total Score 0 12/04/2024 [facility] [place] of Occupat ional Health - Occupational Stress [...] have money to get more. Never true [facility] IP Transportation Answer D ate Recorded [...] 8:11 PM EDT Viri Segura RN * [place] Suicide Severity Rating Scale (Q shift for [...] [facility] Cardiac Surgeons [address] [place] [address] Logan Kenny MD [address] [place] [address] documented as of this encounter Visit Diagnoses Not on filedocumented in this encounter Additional Health Concerns Infection Onset Date Last Indicated Resolved Time R/O C-Diff 12/06/2024 12/06/2024 12/06/2024 1:17 PM EDT C-diff 12/06/2024 12/06/2024 documented as of this encounter Care Teams Humidifier Operator Relationship Specialty Start Date End Date Reyna Perez APRN 1210 [facility] [address] [facility] [address] PCP - General Nurse Practitioner 10/27/24 documented as of this encounter
--- OUTSIDE RECORDS SUMMARY | 2025-01-03 08:23 | XMS_ITS | Encounter Summary ---
Author [place] [address] Care Team Providers Care Java Technical Architect Name Role Phone Reyna Perez DEMETRIUS Primary Care Provider [phone] Reason for Visit * Reason Onset Date Comments Results 12/11/2024 Encounter Details Date Type Department Care Team (Late st Contact Info) Description 12/11/2024 Results Follow-Up SE[facility] U[facility] [place] [address] [place] [address] Sadi Haney MD [address] [facility] [address] [place] [address] PATHOLOGY TISSUE REQUEST Social History Tobacco Use Types Packs/Day Years Used Date Smoking Tobacco: Every Day Cigarettes 1 37.2 Started: 05/10/1989 Smokeless Tobacco: Never Alcohol Use Standard Drinks/Week Comments Not Currently 0 (1 standard drink = 0.6 oz pur e alcohol) [facility] Utilities Answer Date Recorded In the past 12 months has [employer], gas, oil, or water [employer] threatened to shut off services in your home? No 12/04/2024 Overall Financial Resource Strain (CARDIA) Answe r Date Recorded How hard is it for you to pa y for the very basics like food, housing, medical care, and heating? Somewhat hard 12/04/2024 PHQ-2 Answer Date Recorded PHQ-2 Total Score 0 12/04/2024 [facility] [place] of Occupat ional Health - Occupational Stress [...] have money to get more. Never true [facility] IP Transportation Answer D ate Recorded In [...] 5 yrs and then annually - with [facility] documented in this encounter Plan of Treatment Upcoming Encounters Date Type Department Care Team (Late st Contact Info) Description 01/23/2025 9:00 AM EDT Office Visit [facility] Cardiac Surgeons [place] [address] [place] [address] [place] [address] Logan Kenny MD [address] [place] [address] [place] SELL[place] [address] documented as of this encounter Visit Diagnoses Not on filedocumented in this encounter Additional Health Concerns Infection Onset Date Last Indicated Resolved Time C-diff 12/06/2024 12/06/2024 documented as of this encounter Care Teams Java Technical Architect Relationship Specialty Start Date End Date Reyna Perez APRN 1210 [facility] [address] [place] [address] PCP - General Nurse Practitioner 10/27/24 documented as of this encounter
--- OUTSIDE RECORDS SUMMARY | 2025-01-03 08:23 | XMS_ITS | Encounter Summary ---
Author Organization [place] [address] Care Team Providers Care Real Estate Leasing Agent Name Role Phone Reyna Perez DEMETRIUS Primary Care Provider [phone] Reason for Visit * Reason Onset Date Comments Medication Management 12/09/2024 Encounter Details Date Type Department Care Team (Late st Contact Info) Description 12/09/2024 Nurse Triage SEP Nurse Now [address] [place] [address] Clara Gutierrez RN Social History Tobacco Use Types Packs/Day Years Used Date Smoking Tobacco: Every Day Cigarettes 1 37.2 Started: [birth year]/10/1989 Smokeless Tobacco: Never Alcohol Use Standard Drinks/Week Comments Not Currently 0 (1 standard drink = 0.6 oz pur e alcohol) [facility] Utilities Answer Date Recorded In the [...] Date Recorded PHQ-2 Total Score 0 12/04/2024 [facility] [place] of Occupat ional Health - Occupational Stress [...] money to get more. Never true [facility] IP Transportation Answer D ate [...] Description 01/23/2025 9:00 AM EDT Office Visit [facility] Cardiac Surgeons [address] [place] [address] Logan Kenny MD [address] [place] [address] [place] [address] documented as of this encounter Visit Diagnoses Not on filedocumented in this encounter Additional Health Concerns Infection Onset Date Last Indicated Resolved Time C-diff 12/06/2024 12/06/2024 documented as of this encounter Care Teams Real Estate Leasing Agent Relationship Specialty Start Date End Date Reyna Perez APRN [address] [place] [address] PCP - General Nurse Practitioner 10/27/24 documented as of this encounter
--- OUTSIDE RECORDS SUMMARY | 2025-01-03 08:23 | XMS_ITS | Encounter Summary ---
Author Organization [place] [address] Care Team Providers Care Straightening Machine Operator Name Role Phone Reyna Perez DEMETRIUS Primary Care Provider [phone] Reason for Visit * Reason Onset Date Comments Surgery Scheduling 11/07/2024 Encounter Details Date Type Department Care Team (Late st Contact Info) Description 11/07/2024 Telephone SEP Nurse Now [facility] [place] [address] Cheyanne Rain RN Surgery Scheduling [...] 11/07/2024 3:23 AM EDTommy Lawton RN * [place] Suicide Severity Rating Scale (Q shift for [...] Office Visit [facility] Cardiac Surgeons [address] [place] [address] Logan Kenny MD [address] [place] [address] documented as of this encounter Visit Diagnoses Not on filedocumented in this encounter Care Teams Straightening Machine Operator Relationship Specialty Start Date End Date Reyna Perez APRN 1210 [facility] [address] [place] [address] PCP - General Nurse Practitioner 10/27/24 documented as of this encounter
--- OUTSIDE RECORDS SUMMARY | 2025-01-03 08:24 | XMS_ITS | Encounter Summary ---
Author Organization [place] [address] Care Team Providers Care Hospice Office Coordinator Name Role Phone Reyna Perez DEMETRIUS Primary Care Provider [phone] Reason for Visit * Reason Onset Date Comments Hematuria 11/20/2024 Encounter Details Date Type Department Care Team (Late st Contact Info) Description 11/20/2024 Nurse Triage [facility] Nurse Now [address] [place] [address] Gala Loya RN Social History [...] and would like to discuss with provider water pollution control inspector [place] sent * Telephone Encounter - Gala [...] Description 01/23/2025 9:00 AM EDT Office Visit [facility] Cardiac Surgeons [address] [place] [address] Logan Kenny MD [address] [place] [address] [place] [address] documented as of this encounter Visit Diagnoses Not on filedocumented in this encounter Care Teams Hospice Office Coordinator Relationship Specialty Start Date End Date Reyna Perez APRN 1210 [facility] [address] [facility] [place] [address] PCP - General Nurse Practitioner 10/27/24 documented as of this encounter
--- OUTSIDE RECORDS SUMMARY | 2025-01-03 08:24 | XMS_ITS | Encounter Summary ---
Author Organization [place] [address] Care Team Providers Care Airplane Coverer Name Role Phone Reyna Perez APRN Primary Care Provider [phone] Reason for Visit * Reason Onset Date Comments Medication Refill 11/21/2024 Encounter Details Date Type Department Care Team (Late Contact Info) Description 11/21/2024 Refill SEP Urology NPTFTT [address] [place] [address] Patricia Ellison MD [address] [place], [place] [id number] Medication Refill Social History Tobacco Use Types [...] Description 01/23/2025 9:00 AM EDT Office Visit [facility] Cardiac Surgeons [address] [place] [address] Logan Kenny MD [address] [facility] [place] [address] documented as of this encounter Visit Diagnoses Not on filedocumented in this encounter Discontinued Medications Medication Sig Discontinue Reason Start Date End Da te sulfamethoxazole-trimeth oprim (BACTRIM DS) 800-160 mg Oral Tablet Take 1 Tablet by mouth every 12 hours for 10 days. Reorder 11/05/2024 11/21/2024 documented as of this encounter Care Teams Airplane Coverer Relationship Specialty Start Date End Date Reyna Perez APRN 1210 [facility] [address] [place] [address] PCP - General Nurse Practitioner 10/27/24 documented as of this encounter
--- OUTSIDE RECORDS SUMMARY | 2025-01-03 08:24 | XMS_ITS | Clinical Summary ---
Author Organization [facility] Address [address] [place] [address] Care Team Providers Care Manufacturing Lead Name Role Phone ChrisReyna Jonathan ROMO Primary Care Provider [phone] Social History Tobacco Use Types Packs/Day Years [...] 07/27/2019 Sigmoidoscopy 07/27/2019 [facility]-Colorectal Cancer Screening 07/27/2019 [id number] Vaccine (1 - 20 24-25 season) 2024 [...] patient's age to complete [place] [address] [facility] Care Teams Manufacturing Lead Relationship Specialty Start Date End Date Reyna Perez APRN [address] [place] [address] PCP - General 09/15/22
--- OUTSIDE RECORDS SUMMARY | 2025-01-03 08:24 | XMS_ITS | Clinical Summary ---
Author Organization [facility] Address [address] [place] [phone] Phone Care Team Providers Care Fine Arts Packer Name Role Phone Unavailable Unavailable Conditions or Problems No information available. Medications No information available. Medications Administered No information available. Allergies, Adverse Reactions, Alerts No information available. Results No information available. Plan of Care No information available. Procedures No information available. Vital Signs No information available. Immunizations No information available. Advance Directives No information available.
--- OUTSIDE RECORDS SUMMARY | 2025-01-03 08:24 | XMS_ITS | Clinical Summary ---
Author Organization [facility] Address [address] [place], [place] [address] Phone Care Team Providers Care Wildlife Removal Specialist Name Role Phone Reyna Perez APRN Primary Care Provider [phone] Allergies No known active allergies Medications aspirin [...] Capsule 12/08/2024 11:27 AM EDT 5 Active traMADoL (ULTRAM) 50 mg Oral [...] oral vanc Sepsis without acute organ dysfunction 07/26/202 5 Assessment & Plan (12/08/2024 10:05 AM EDT): [...] follow path Coronary artery disease invo lving iqugmiut coronary artery of iqugmiut heart without angina pectoris 10/10/2024 Assessment & [...] Description 12/22/2024 2:00 PM EDT Office Visit [facility] Urology NPTFTT [address] [place] [address] Dorinda Rodriguez PA-C Postoperative visit (Primary Dx); Malignant neoplasm of left ureter (HCC); S/p nephrectomy; C. difficile diarrhea 12/12/2024 Telephone [facility] Nurse Now [facility] [place] [address] Abner Bar, LAY Information Only 12/11/2024 Results Follow-Up [facility] Urology [place] [address] [address] Sadi Haney MD PATHOLOGY TISSUE REQUEST 12/10/2024 Nurse Triage [facility] Nurse Now [address] [place] [address] Kiesha Gomez, RN 12/09/2024 Nurse Triage [facility] [address] [place] [address] Clara Gutierrez RN 12/08/2024 Telephone [facility] [address] [phone] Dorinda Rodriguez PA-C Schedule Appointment 12/04/2024 Telephone [facility] [place] [address] [address] Sadi Haney MD Schedule Appointment 12/01/2024 11:21 AM EDT Anesthesia Event [facility] [place] [address] Tommy Romero DO Collins, Angela, DEMETRIUS 12/01/2024 10:35 AM EDT - 12/01/2024 4:50 PM EDT Surgery EDG [facility] [place] [place] [id number] Sadi Haney MD DAVINCI ROBOTIC NEPHROURETERECTOMY 12/01/2024 9:50 AM EDT Ancillary Procedure EDG SAME DAY SURGERY [facility] [address] [place] [id number] Sadi Haney MD 12/01/2024 8:38 AM EDT - 12/08/2024 11:29 AM EDT Hospital Encounter [place] [address] [address] Sadi Haney MD Preop testing (Primary Dx); Ureteral mass Discharge Disposition: Discharge/Readmit 12/01/2024 Travel 11/23/2024 12:38 PM EDT - 11/23/2024 11:59 PM EDT Hospital Encounter EDG PRE-ADMIT TESTING [facility] [place] [address] Pre-op testing (Primary Dx); Ureteral mass Discharge Disposition: Home or Self Care 11/23/2024 Travel 11/21/2024 Refill [facility] NPTFTT [address] [place] [address] Patricia Ellison MD Medication Refill 11/20/2024 Nurse Triage [facility] Nurse Now [address] [place] [phone] Gala Loya RN 11/07/2024 3:27 AM EDT - 11/07/2024 7:08 AM EDT Emergency [facility] [address] [facility] [place], [place] [id number] Garo Ndiaye MD Dyspnea, unspecified type (Primary Dx) Discharge Disposition: Home or Self Care 11/07/2024 Telephone [facility] Nurse Now [address] [place] [phone] Cheyanne Rain RN Surgery Scheduling 11/07/2024 Travel 11/07/2024 Nurse Triage [facility] Nurse Now [address] [place] [phone] Renetta Jolly RN 11/05/2024 Results Follow-Up [facility] Urology NPTFTT [address] [place] [address] Patricia Ellison MD NON-DISABILITY ATTORNEY CYTOLOGY REQUEST, PATHOLOGY TISSUE REQUEST 11/02/2024 Telephone [facility] Nurse Now [address] [place] [phone] Cheyanne Rain, RN Hematuria 11/01/2024 Telephone [facility] Nurse Now [address] [place] [phone] Fito Weeks, LAY Results 10/31/2024 Telephone [facility] Cardiac Surgeons [address] [place] [address] Deb Woodall, BUFFING WHEEL INSPECTOR Dizziness 10/28/2024 Nurse Triage [facility] Nurse Now [address] [place] [phone] Tamar Alan, LAY 10/27/2024 1:38 PM EDT Anesthesia Event [facility] [address] [place] [address] Sherita Moya MD Record, Jhoana Gutierrez, BUFFING WHEEL INSPECTOR 10/27/2024 1:00 PM EDT - 10/27/2024 1:55 PM EDT Surgery [facility] [address] [place] [address] Patricia Ellison MD CYSTOSCOPY URETEROSCOPY STENT PLACEMENT OR EXCHANGE 10/27/2024 11:03 AM EDT - 10/27/2024 4:21 PM EDT Hospital Encounter [facility] SAME DAY SURGERY [address] [place] [address] Patricia Ellison MD Ureteral mass Discharge Disposition: Home or Self Care 10/27/2024 Nurse Triage [facility] [address] [place] [phone] Kristine Ventura RN 10/27/2024 Travel 10/25/2024 1:42 PM EDT - 10/25/2024 11:59 PM EDT Hospital Encounter EDG PRE-ADMIT TESTING [place] [place] [address] Discharge Disposition: Home or Self Care 10/25/2024 Travel 10/24/2024 9:00 AM EDT Telemedicine [facility] Cardiac Surgeons [address] [place] [phone] Logan Kenny MD ASHD (arteriosclerotic heart disease) (Primary Dx); Ureteral mass 10/23/2024 Telephone [facility] [address] [place] [phone] Fito Weeks, commodity industry analyst Management 10/20/2024 6:50 AM EDT - 10/20/2024 11:59 PM EDT Hospital Encounter [facility] [address] [place] [address] [address] [place] [address] Logan Kenny MD SOB (shortness of breath) Discharge Disposition: Home or Self Care 10/20/2024 Telephone [facility] Cardiac Surgeons [address] [place] [address] Logan Kenny MD Follow-up 10/20/2024 Results Follow-Up [facility] NPTFTT [address] [place] [address] Patricia Ellison MD NON-DISABILITY ATTORNEY CYTOLOGY REQUEST 10/19/2024 3:00 PM EDT Office Visit [facility] NPT[facility]TT [address] [place] [address] Patricia Ellison MD Ureteral mass (Primary Dx) 10/19/2024 10:03 AM EDT - 10/19/2024 11:59 PM EDT Hospital Encounter [facility] [address] [place] [address] Logan Kenny MD Hydronephrosis, unspecified hydronephrosis type Discharge Disposition: Home or Self Care 10/19/2024 7:44 AM EDT - 10/19/2024 10:02 AM EDT Hospital Encounter [facility] [address] [place] [address] Logan Kenny MD Bruit Discharge Disposition: Home or Self Care 10/19/2024 7:44 AM EDT - 10/19/2024 10:02 AM EDT Hospital Encounter [facility] [address] [place] [address] Logan Kenny MD Leg swelling Discharge Disposition: Home or Self Care 10/19/2024 Results Follow-Up [facility] Cardiac Surgeons [address] [place] [address] ABDOMEN PELVIS WO ORAL WITH IV CONTRAST 10/19/2024 Orders Only [facility] Cardiac Surgeons [address] [place] [address] Christian Nicholas MD Abnormal CT scan (Primary Dx) 10/19/2024 Refill [facility] [address] [facility] [address] [place] [address] Janet Perez APRN Medication Refill 10/12/2024 9:27 AM EDT - 10/12/2024 11:59 PM EDT Hospital Encounter [facility] [address] [place] [address] Logan Kenny MD Coronary artery disease involving iqugmiut coronary artery of iqugmiut heart with angina pectoris Discharge Disposition: Home or Self Care 10/12/2024 Orders Only [facility] Cardiac Surgeons [address] [place] [phone] Logan Kenny MD Hydronephrosis, unspecified hydronephrosis type (Primary Dx) 10/12/2024 Telephone [facility] Cardiac Surgeons [address] [place] [phone] Raine Guerrero MA Patient Question 10/12/2024 Results Follow-Up [facility] Cardiac Surgeons [address] [place] [phone] CHEST WO CONTRAST 10/10/2024 2:00 PM EDT Office Visit [facility] Cardiac Surgeons [address] [place] [phone] Logan Kenny MD ASHD (arteriosclerotic heart disease) (Primary Dx) 10/10/2024 Orders Only [facility] Cardiac Surgeons [address] [place] [phone] Logan Kenny MD Bruit (Primary Dx); Leg swelling; SOB (shortness of breath); Coronary artery disease involving iqugmiut coronary artery of iqugmiut heart with angina pectoris 10/10/2024 Orders Only [facility] Card[facility] Surgeons [address] [place] [phone] Raine Guerrero MA from Last 3 Months Surgical History Surgery Date Site/Laterality Comments CARDIAC CATHETERIZATION CORONARY ANGIOPLASTY WITH STENT PLACEMENT Sep 19 2022 CYSTOSCOPY 10/27/2024 Surgeon: Patricia Ellison MD; Location: [facility] OR; Service: Urology Medical devices from [...] History Date Comments CAD (coronary artery disease) SD (myocardial infarction) (HCC) 09/17/2024 Hypertension Hyperlipidemia Heartburn [...] 0.6 oz pur e alcohol) [facility] Utilities Answer Date Recorded In the past 12 months has e electric, gas, oil, or water eTobb threatened to shut off services in your home? No 12/04/2024 Overall Financial Resource Strain (CARDIA) Answe r Date Recorded How hard is it for you to pa y for the very basics like food, housing, medical care, and heating? Somewhat hard 12/04/2024 PHQ-2 Answer Date Recorded PHQ-2 Total Score 0 12/04/2024 [facility] [place] of Occupat ional Health - Occupational Stress [...] to get more. Never true [facility] HRSN [facility] IP Transportation Answer D ate Recorded [...] Description 01/23/2025 9:00 AM EDT Office Visit [facility] Cardiac Surgeons [address] [place] [address] Logan Kenny MD [address] [place] [address] [place] [address] Health Maintenance Due Date Last Done [...] this topic Medical Devices Implanted Type Area Oxygen Plant Operator Device Identifier Shelf Expiration Date Model / Serial / Lot Cardiac Stent Explanted Type Area Oxygen Plant Operator Device Identifier Shelf Expiration Date Model / Serial / Lot Stent Uret [id number] Contr Dbl Pig Tapr Lpro Percuflx Cath - [id number] Implanted:Qty : 1 on 10/27/2024 by Patricia Ellison MD at [facility] Stent Left: Ureter [employer]:MICROVASIVE: UROLOGY [id number] 03/22/2027 [id number] 30 / / [id number] Procedures Procedure Name Priority Date/Time Associated Diagnosis [...] Pugh 1 PCP: Reyna Perez APRN Primary Bee Rancher: None on file I would like to [...] disease) Heartburn Hyperlipidemia Hypertension Kidney mass left SD (myocardial infarction) (HCC) 09/17/2024 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 Medications: Prior to Admission medications Medication Sig [...] CYSTOSCOPY 10/27/2024 Surgeon: Patricia Ellison MD; Location: [facility] OR; Service: Urology Allergy No Known Allergies Patient Active Problem List Diagnosis ASHD (arteriosclerotic heart disease) 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) BP 118/53 (BP Location: Right arm) Pulse 103 Temp 98 F (36.7 C)(Oral) Resp 18 Ht 5' 8 (1.727 m) Wt 243 lb (110.2 kg) HhV440% BMI 36.95 kg/m I/O 24 hours: Intake/Output Summary (Last 24 hours) at 12/02/2024 1156 Last data filed at 12/02/2024 1154 Gross per 24 hour Intake 7111.22 ml Output 1360 ml Net 5751.22 ml Diagnostic tests The most recent cardiovascular imaging studies available in [facility] EMR werereviewed at time of [...] no acute ischemia appreciated -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 Lizzie Hinkle, BUFFING WHEEL INSPECTOR Heart and Vascular 12/02/2024 Disposition Perspective - [...] APRN No chief complaint on file. Alex Pugh [...] disease) Heartburn Hyperlipidemia Hypertension Kidney mass left SD (myocardial infarction) (HCC) 09/17/2024 Motion sickness Past Surgical History: Procedure Laterality Date CARDIAC CATHETERIZATION CORONARY ANGIOPLASTY WITH STENT PLACEMENT Sep 19 2022 CYSTOSCOPY 10/27/2024 Surgeon: Patricia Ellison MD; Location: [facility] OR; Service: Urology No Known Allergies [...] suppository 650 mg, 650 mg, Rectal, Q4H PRN,aSdi Haney MD aspirin EC tablet 81 mg, [...] left ureter (HCC) Coronary artery disease of iqugmiut artery of iqugmiut heart with stableangina pectoris Assessment and Plan Assessment & Plan 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 Planper urology, follow path Coronary artery disease of iqugmiut artery of iqugmiut heart with stableangina pectoris - diffuse severe [...] OLYMPUS ESU, CYSTO FIRST, KCDR HAJ-HAMED ASSISTINGsk MS CYSTOURETHROSCOPY W/DEST &/RMVL MED BLADDER EMERY 12/01/2024 11:21 AM EDT Ureteral mass Special Needs LASSITER KNIFE, HANG WATER, OLYMPUS ESU, CYSTO FIRST, KCDR HAJ-HAMED ASSISTINGsk MS LAPAROSCOPY RADICAL NEPHRECTOMY 12/01/2024 11:21 AM EDT Ureteral mass Special Needs LASSITER KNIFE, HANG WATER, OLYMPUS ESU, CYSTO FIRST, KCDR HAJ-HAMED ASSISTINGsk MS LAPAROSCOPY NEPHRECTOMY W/TOTAL URETERECTOMY 12/01/2024 11:21 AM [...] AIRWAY PLACEMENT Routine 10/27/2024 2:06 PM EDT NON-DISABILITY ATTORNEY CYTOLOGY REQUEST Routine 10/27/2024 2:03 PM EDT Ureteral mass MS CYSTOURETHROSCOPY WITH BIOPSY 10/27/2024 1:38 PM EDT Ureteral mass Special Needs sk CYSTOSCOPY URETEROSCOPY STENT PLACEMENT OR EXCHANGE 10/27/2024 1:38 PM EDT Ureteral mass Special Needs sk EC ECHOCARDIOGRAM COMPLETE W DOPPLER AND COLOR FLOW MAPPING Routine 10/20/2024 7:53 AM EDT SOB (shortness of breath) NON-DISABILITY ATTORNEY CYTOLOGY REQUEST Routine 10/19/2024 3:31 PM EDT [...] 9:31 AM EDT Coronary artery disease involving iqugmiut coronary artery of iqugmiut heart with angina pectoris from Last 3 Months Results * (ABNORMAL) [facility] URINALYSIS POC (12/22/2024 2:00 PM EDT) Only the most recent of3 resultswithin the time period is included. UA Color POC Yellow Color 12/22/2024 2:02 PM EDT [facility] UA Appear POC Clear Clear 12/22/2024 2:02 PM EDT [facility] UA Gluc POC Negative Negative mg/dL 12/22/2024 2:02 PM EDT [facility] UA Bili POC Negative Negative 12/22/2024 2:02 PM EDT [facility] UA Ketones POC Negative Negative mg/dL 12/22/2024 2:02 PM EDT [facility] UA SG POC 1.020 1.001 - 1.035 no units 12/22/2024 2:02 PM EDT [facility] UA Blood POC Trace-Intact (A) Negative 12/22/2024 2:02 PM EDT [facility] UA pH POC 6.5 5.0 - 8.0 pH 12/22/2024 2:02 PM EDT [facility] UA Protein POC Negative Negative mg/dL 12/22/2024 2:02 PM EDT [facility] UA Urobilinogen POC 0.2 0.2, 1.0 12/22/2024 2:02 PM EDT [facility] UA Nitrite POC Negative Negative 12/22/2024 2:02 PM EDT [facility] UA Leuk Est POC Negative Negative 2:02 PM EDT [facility] Urine STRUCTURE OF URINARY TRACT PROPER / Unknown 12/22/2024 2:00 PM EDT 12/22/2024 2:02 PM EDT Dorinda Rodriguez PA-C POINT OF CARE TEST ORDERAB LES Final Result [facility] [address] [place], [place] [id number] * SCANNED RHYTHM STRIPS (12/09/2024 4:31 AM [...] 6:48 AM EDT [facility] [place] Percent 11.0 % 12/08/2024 6:48 AM EDT [facility] Eos Percent 1.9 % 12/08/2024 6:48 AM EDT [facility] Baso Percent 0.3 % 12/08/2024 6:48 AM EDT [facility] Neut # 6.7(H) 1.6 - 6.1 x10(3)/[facility] 12/08/2024 6:48 AM EDT [facility] Comment:Neutrophils equals s egs plus bands IMMGRAN# 0.1 0.0 - 0.1 x10(3)/mcL 12/08/2024 6:48 AM EDT [facility] Comment:Automated count of m etamyelocytes, myelocytes and promyelocytes. An absolute IG <0.1 is reported as 0.0. Lymph # 1.3 1.2 - 3.9 x10(3)/[facility] 12/08/2024 6:48 AM EDT [facility] [place] # 1.0(H) 0.3 - 0.9 x10(3)/[facility] 12/08/2024 6:48 AM EDT [facility] Eos# 0.2 0.0 - 0.5 x10(3)/[facility] 12/08/2024 6:48 AM EDT [facility] Baso # 0.0 0.0 - 0.1 x10(3)/[facility] 12/08/2024 6:[address] [facility] Blood VENOUS BLOOD / Unknown Venipuncture / Unknown 12/08/2024 6:02 AM EDT 12/08/2024 6:35 AM EDT us Juana Shoemaker MD HEMATOLOGY ORDERABLES Final R esult [facility] [address] , [place] [address] * (ABNORMAL) BASIC METABOLIC PANEL (12/08/2024 6:02 AM EDT) Only the most recent of5 resultswithin the time period is included. [facility] Signature Sodium 137 136 - 145 mmol/L 12/08/2024 7:09 AM EDT [facility] Potassium 3.7 3.5 - 5.0 mmol/L 12/08/2024 7:[address] [facility] Chloride 104 98 - 107 mmol/L 12/08/2024 7:[address] [facility] Total CO2 21(L) 22 - 29 mmol/L 12/08/2024 7:[address] [facility] Anion Gap 12 7 - 16 mmol/L 12/08/2024 7:[address] [facility] Calcium 9.3 8.6 - 10.4 mg/dL 12/08/2024 7:[address] [facility] Glucose Lvl 105(H) 70 - 99 mg/dL 12/08/2024 7:[address] [facility] BUN 11 6 - 20 mg/dL 12/08/2024 7:[address] [facility] Creatinine 0.96 0.67 - 1.30 mg/dL 12/08/2024 7:09 AM EDT [facility] eGFR (CKD-EPIcr 2020) 96 >=60 mL/min/1.7 3 m2 12/08/2024 7:09 AM EDT [facility] Comment:Estimated GFR was ca lculated using the CKD-EPIcr (2020) equation refit without race. The equation is recommended by the National Kidney Foundation - [place] [employer] of Nephrology Task Force. Blood VENOUS BLOOD / Unknown Venipuncture / Unknown 12/08/2024 6:02 AM EDT 12/08/2024 6:34 AM EDT us Juana Shoemaker MD CHEMISTRY ORDERABLES Final Re sult [facility] [address] [place] [address] * ECG AND WAVEFORMS - TELEMETRY (12/07/2024 8:06 PM EDT) Only the most recent of14 resultswithin the time period is included. Pathologist [facility] ECG INTERPRET R [facility] 12/07/2024 8:06 PM EDT Narrative [facility] - 12/07/2024 8:18 PM EDT ROUTINE (BS) MS 0.16 QRS 0.12 RR 0.65 QT 0.40 QTc 0.50 See Clinical Report link for waveform capture us Unknown Provider POINT OF CARE CARDIOLOGY Final Result [facility] [address] [place] [id number] * FL CYSTOGRAM MINIMUM 3 VW (12/07/2024 [...] examination was performed by Rachna Eller, physician optometric assistant, under the supervision of Dr. Singh. A total fluoroscopy time of 1.2 minutes was used. 119 fluoroscopic spot images were saved to PACS. FINDINGS: Via Bradford catheter, 175 mL of water-soluble contrast was instilled retrograde into the urinary bladder. Imaging was performed in multiple projections. Actuarial Assistant radiographs show a surgical drain over the [...] The examination was performed by Rachna Eller,physician optometric assistant, under the supervision of Dr. Singh. A total fluoroscopy timeof 1.2 minutes was used. 119 fluoroscopic spot images were saved to PACS. FINDINGS: Via Bradford catheter, 175 mL of water-soluble contrast wasinstilled retrograde into the urinary bladder. Imaging was performed in multiple projections. Actuarial Assistant radiographs show a surgical drain over the [...] of3 resultswithin the time period is included. Pathologist [facility] WBC 10.8(H) 3.7 - 10.3 x10(3)/mcL 12/07/2024 6:50 AM EDT [facility] RBC 3.23(L) 4.60 - 6.10 x10(6)/mcL 12/07/2024 6:50 AM EDT [facility] Hgb 9.7(L) 13.7 - 17.5 g/dL 12/07/2024 6:50 AM EDT [facility] Hct 29.6(L) 40.0 - 51.0 % 12/07/2024 6:50 AM EDT [facility] MCV 91.6 80.0 - 100.0 fL 12/07/2024 6:50 AM EDT [facility] MCH 30.0 26.0 - 34.0 pg 12/07/2024 6:50 AM EDT [facility] MCHC 32.8 30.7 - 35.5 g/dL 12/07/2024 6:50 AM EDT [facility] RDW 14.5 <=14.9 % 12/07/2024 6:50 AM EDT [facility] Platelet 301 155 - 369 x10(3)/mcL 12/07/2024 6:50 AM EDT [facility] MPV 9.6 8.8 - 12.5 fL 12/07/2024 6:50 AM EDT [facility] Blood VENOUS BLOOD / Unknown Venipuncture / Unknown 12/07/2024 5:33 AM EDT 12/07/2024 6:37 AM EDT us Sadi Haney MD HEMATOLOGY ORDERABLES Fin al Result [facility] [address] , [place] [address] * (ABNORMAL) C DIFF INTERPRETATION (12/06/2024 9:57 AM EDT) Pathologist [facility] C Diff Toxin DNA Positive(A) Negative 12/06/2024 1:18 PM EDT [facility] NAP1 Presumptive Neg Presumptive Neg 12/06/2024 1:18 PM EDT [facility] GDH Antigen Positive(A) Negative 12/06/2024 1:18 PM EDT [facility] C diff toxin A/B Positive(A) Negative 12/06/2024 1:18 PM EDT [facility] Stool RECTUM STRUCTURE / Unknown Collection / Unknown 12/06/2024 9:57 AM EDT 12/06/2024 10:05 AM EDT Narrative [facility] - 12/06/2024 1:18 PM EDT Toxin producing C diff target DNA sequences detected. Toxins A/B positive. CDI likely. Consider initiation of severity-based CDI therapy according to CDI management guidance. us Brody LINDQUIST MICROBIOLOGY - GENERAL ORDERABLE S Final Result Performing Organization Address [facility] de Phone Number [facility], [address] , [place] [address] * C DIFF GDH AG AND TOXIN A+B (12/06/2024 9:57 AM EDT) Stool RECTUM STRUCTURE / Unknown Collection / Unknown 12/06/2024 9:57 AM EDT 12/06/2024 10:05 AM EDT Brody LINDQUIST MICROBIOLOGY - GENERAL ORDERABLE S Final Result Performing Organization Address [facility] de Phone Number [facility], [address] , [address] [place] [phone] * C DIFF TOXIN DNA (12/06/2024 9:57 AM EDT) Stool RECTUM STRUCTURE / Unknown Collection / Unknown 12/06/2024 9:57 AM EDT 12/06/2024 10:05 AM EDT Brody LINDQUIST MICROBIOLOGY - GENERAL ORDERABLE S Final Result Performing Organization Address [facility] Co de Phone Number [facility], [address] , [address] [place] [phone] * (ABNORMAL) HEMOGLOBIN AND HEMATOCRIT (12/05/2024 12:22 PM EDT) Only the most recent of7 resultswithin the time period is included. Hgb 9.4(L) 13.7 - 17.5 g/dL 12/05/2024 1:04 PM EDT [facility] Hct 27.8(L) 40.0 - 51.0 % 12/05/2024 1:04 PM EDT [facility] Blood VENOUS BLOOD / Unknown Venipuncture / Unknown 12/05/2024 12:22 PM EDT 12/05/2024 12:27 PM EDT Juana Shoemaker MD HEMATOLOGY ORDERABLES Final R esult [facility] [address] [facility], [place] [address] * TRANSFUSE RED BLOOD CELLS (12/04/2024 3:25 PM EDT) Only the most recent of3 resultswithin the time period is included. Result [facility] Peace Rea APRN NURSING TREATMENT ORDERABLES - BLOOD ADMIN Edited Result - Final * (ABNORMAL) IRON+TIBC (12/04/2024 5:52 AM EDT) Iron 27(L) 50 - 170 mcg/dL 12/05/2024 12:26 PM EDT [facility] Transferrin 160(L) 200 - 360 mg/dL 12/05/2024 12:26 PM EDT [facility] Transferrin Saturation 12(L) 20 - 50 % 12/05/2024 12:26 PM EDT [facility] TIBC 224(L) 250 - 400 mcg/dL 12/05/2024 12:26 PM EDT [facility] Blood VENOUS BLOOD / Unknown Venipuncture / Unknown 12/04/2024 5:52 AM EDT 12/04/2024 6:01 AM EDT Juana Shoemaker MD CHEMISTRY ORDERABLES Final Re sult Performing Organization Address City/[facility]/ZIP Co de Phone Number [facility] [address] , [place] [address] * (ABNORMAL) TROPONIN-T HIGH SENSITIVITY 6 HR (12/03/2024 3:40 AM EDT) vb-fAwvyobwm-X 6HR 37(H) <22 ng/L 12/03/2024 4:43 AM EDT [facility] hs-cTnT 6Hr Delta from Baseline 11 <12 ng/L 12/03/2024 4:43 AM EDT [facility] Blood VENOUS BLOOD / Unknown Venipuncture / Unknown 12/03/2024 3:40 AM EDT 12/03/2024 4:11 AM EDT Narrative [facility] - 12/03/2024 4:43 AM EDT Ingestion of josé miguel doses of biotin (>5 mg/day) taken within 8 hours of drawing blood sample can interfere with this immunoassay test. Rachna Wood BUFFING WHEEL INSPECTOR CHEMISTRY ORDERABLES Fin al Result Performing Organization Address [facility] Co de Phone Number [facility] [address] , [place] [address] * (ABNORMAL) TROPONIN-T HIGH SENSITIVITY 2HR (12/02/2024 10:14 PM EDT) Only the most recent of2 resultswithin the time period is included. os-hUiakgwqu-X 2HR 33(H) <22 ng/L 12/02/2024 11:02 PM EDT [facility] hs-cTnT 2Hr Delta from Baseline 7(H) <4 ng/L 12/02/2024 11:02 PM EDT [facility] Blood VENOUS BLOOD / Unknown Venipuncture / Unknown 12/02/2024 10:14 PM EDT 12/02/2024 10:33 PM EDT Narrative [facility] - 12/02/2024 11:02 PM EDT Ingestion of josé miguel doses of biotin (>5 mg/day) taken within 8 hours of drawing blood sample can interfere with this immunoassay test. us Rachna Gutierrez Nina BUFFING WHEEL INSPECTOR CHEMISTRY ORDERABLES Fin al Result [facility] [address] [place] [address] , [place] [address] * CT ABDOMEN PELVIS W CONTRAST (12/02/2024 [...] of3 resultswithin the time period is included. tm-zKxwzkpao-G 26(H) <22 ng/L 12/02/2024 8:05 PM EDT [facility] Blood VENOUS BLOOD / Unknown Venipuncture / Unknown 12/02/2024 7:34 PM EDT 12/02/2024 7:37 PM EDT Narrative [facility] - 12/02/2024 8:05 PM EDT Ingestion of josé miguel doses of biotin (>5 mg/day) taken within 8 hours of drawing blood sample can interfere with this immunoassay test. us Rachna Wood APRN CHEMISTRY ORDERABLES Fin al Result [facility] [address] [facility] , [address] [place] [id number] * EK EKG 12 LEAD (12/02/2024 7:13 PM EDT) Only the most recent of3 resultswithin the time period is included. Anatomical Region Laterality Modality Electrocardiogra phy 12/02/2024 7:21 PM EDT Impressions 12/03/2024 11:[address] 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 Lactic Acid 1.6 0.5 - 1.9 mmol/L 12/02/2024 6:44 PM EDT [facility] Blood VENOUS BLOOD / Unknown Venipuncture / Unknown 12/02/2024 6:17 PM EDT 12/02/2024 6:25 PM EDT Meng Chen MD CHEMISTRY ORDERABLES Final Resu lt Performing Organization Address [facility] Co de Phone Number [facility] [address] [place] [address] , [place] [address] * BLOOD CULTURE (NO STAIN) (12/02/2024 1:42 PM EDT) Only the most recent of2 resultswithin the time period is included. Culture Result No Growth at 120 hours. BLOOD CULTURE (NO STAIN) 12/07/2024 3:00 PM EDT [facility] Blood VENOUS BLOOD / Unknown Venipuncture / Unknown 12/02/2024 1:42 PM EDT 12/02/2024 1:53 PM EDT us Meng Chen MD MICROBIOLOGY - GENERAL ORDERABL ES Final Result Performing Organization Address [facility] Co de Phone Number [facility] [address] [place] [address] , [place] [address] * (ABNORMAL) LACTIC ACID (12/02/2024 1:42 PM EDT) Only the most recent of2 resultswithin the time period is included. Lactic Acid 3.2(H) 0.5 - 1.9 mmol/L 12/02/2024 2:16 PM EDT [facility] Blood VENOUS BLOOD / Unknown Venipuncture / Unknown 12/02/2024 1:42 PM EDT 12/02/2024 1:52 PM EDT us Meng Chen MD CHEMISTRY ORDERABLES Final Resu lt [facility] [address] [facility] , [place] [address] * (ABNORMAL) URINALYSIS REFLEX (12/02/2024 10:53 AM EDT) UA Color Red 12/02/2024 11:12 AM EDT [facility] UA Appear Cloudy(A) Clear 12/02/2024 11:12 AM EDT [facility] UA Glucose Negative Negative mg/dL 12/02/2024 11:12 AM EDT [facility] UA Ketones Negative Negative mg/dL 12/02/2024 11:12 AM EDT [facility] UA Blood 3+ (1.0 mg/dL)(A) Negative 12/02/2024 11:12 AM EDT [facility] UA pH 6.0 5.0 - 8.0 pH 12/02/2024 11:12 AM EDT [facility] UA Protein 1+ (30 mg/dL)(A) Negative mg/dL 12/02/2024 11:12 AM EDT [facility] UA Urobilinogen Normal <=1 mg/dL 11:12 AM EDT [facility] UA Bili Negative Negative 12/02/2024 11:12 AM EDT [facility] UA Nitrite Negative Negative 12/02/2024 11:12 AM EDT [facility] UA Leuk Est 3+ (250 Charlene/mcl)(A) Negative 12/02/2024 11:12 AM EDT [facility] UA Spec Grav 1.025 1.001 - 1.035 no units 12/02/2024 11:12 AM EDT [facility] Comment:Reference range jc d for random specimens only. UA WBC 28(H) 0 - 4 /HPF 12/02/2024 11:12 AM EDT [facility] UA RBC >182(H) 0 - 3 /HPF 12/02/2024 11:12 AM EDT [facility] UA Squam Epi 1+ /LPF 12/02/2024 11:12 AM EDT [facility] UA Bacteria 1+(A) Negative /HPF 12/02/2024 11:12 AM EDT [facility] Urine URINARY BLADDER STRUCTURE / Unknown 12/02/2024 10:53 AM EDT 12/02/2024 10:59 AM EDT Mariah Kessler APRN URINE ORDERABLES Fin al Result Performing Organization Address City/[facility]/ZIP Co de Phone Number [facility] [address] [facility] , [place] [address] * EXTRA SWENSON URINE CX (12/02/2024 10:53 AM EDT) Urine URINE SPECIMEN OBTAINED VIA INDWELLING URINARY CATHETER / Unknown 12/02/2024 10:53 AM EDT 12/02/2024 10:59 AM EDT Mariah Kessler APRN MICROBIOLOGY - GENER AL ORDERABLES Final Result Performing Organization Address [facility] Co de Phone Number [place] [phone] * URINE CULTURE (NO STAIN) (12/02/2024 10:53 AM EDT) Culture No growth at 30 hours. 12/04/2024 6:38 AM EDT [facility] Urine URINARY BLADDER STRUCTURE / Unknown 12/02/2024 10:53 AM EDT 12/02/2024 11:12 AM EDT Mariah Kessler APRN MICROBIOLOGY - GENER AL ORDERABLES Final Result Performing Organization Address City/[facility] Co de Phone Number [facility] [address] [facility] [facility] , [place] [address] * XR CHEST AP PORTABLE [...] the ordering clinician. us Meng Chen MD IM DIAGNOSTIC IMAGING ORDERABL ES Final Result * (ABNORMAL) PROCALCITONIN (12/02/2024 5:05 AM EDT) Procalcitonin 0.62(H) <=0.49 ng/mL 12/02/2024 5:52 AM EDT [facility] Blood VENOUS BLOOD / Unknown Venipuncture / Unknown 12/02/2024 5:05 AM EDT 12/02/2024 5:11 AM EDT Narrative [facility] - 12/02/2024 5:52 AM EDT Procalcitonin <0.50 [...] Mariah Kessler APRN CHEMISTRY ORDERABLES Final Result [facility] [address] [place] [address] , [place] [address] * CREATININE BODY FLUID (12/02/2024 4:12 AM EDT) Creatinine BF 1.15 0.67 - 1.30 mg/dL 12/02/2024 5:03 AM EDT [facility] Body Fluid ABDOMEN / Unknown Collection / Unknown 12/02/2024 4:12 AM EDT 12/02/2024 4:29 AM EDT Narrative [facility] - 12/02/2024 5:03 AM EDT A reference interval for this test has not been established for body fluid specimens. The reference range listed reflects normal concentration of this analyte in blood. us Sadi Haney MD BODY FLUIDS AND STOOLS OR DERABLES Final Result [employer] [address] [facility], [address] [place], [place] [id number] * (ABNORMAL) GLUCOSE METER POC (12/02/2024 2:58 AM EDT) Glucose Meter POC 148(H) 70 - 100 mg/dL 12/02/2024 3:00 AM EDT [facility] Sample Type Capillary 12/02/2024 3:00 AM EDT [facility] Patient Status Non-Critical Patient 12/02/2024 3:00 AM EDT [facility] Blood BLOOD SPECIMEN / Unknown 12/02/2024 2:58 AM EDT 12/02/2024 3:00 AM EDT Sadi Haney MD POINT OF CARE TEST ORDERA BLES Final Result [facility] [address] [place] [address] * PATHOLOGY TISSUE REQUEST (12/01/2024 3:36 PM EDT) Only the most recent of2 resultswithin the time period is included. 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 - Resection margins negative for carcinoma - Kidney and bladder cuff with chronic inflammation, negative for carcinoma. - Adrenal gland negative for carcinoma. - See synoptic report for details. 12/05/2024 4:20 PM EDT [facility] at 1620 EDT GROSS DESCRIPTION A. [...] 0.5 to 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 Consulting Technical Director sections are submitted as follows: A1-A3 = entire mass at UPJ to include adjacent uninvolved proximal ureter A4 = remaining proximal ureter A5-A6 = client relations representative dilated calyces A7-A8 equal all distal ureter with perpendicular bladder margin A9 = vascular margins from kidney A10 = all areas suggestive of adrenal parenchyma A11 = 1 bisected lymph node candidate A12 = 1 trisected lymph node candidate A13-A14 = largest lymph node candidate, trisected RIK Stover PA (ASCP) 12/05/2024 4:20 PM EDT [facility] MICROSCOPIC DESCRIPTION The microscopic examination may have been rendered in whole, or in part, by analyzing high-resolution digital images (whole slide images) on the [employer] Digital Pathology platform validated at [facility]. 12/05/2024 4:20 PM EDT [facility] BEST TISSUE BLOCK FOR ANCILLARY STUDIES A3 12/05/2024 4:20 PM EDT [facility] SYNOPTIC REPORT CHECKLIST URETER, RENAL PELVIS: Resection [...] limited to this pathology report. pT Category: presiding judge pN Category: pN not assigned (no nodes submitted or found) ADDITIONAL FINDINGS Pathologic Findings in Ipsilateral Nonneoplastic Renal Tissue: None identified 12/05/2024 4:20 PM EDT [facility] EMBEDDED IMAGES 12/05/2024 4:20 PM EDT [facility] Tissue LEFT KIDNEY STRUCTURE / Unknown 12/01/2024 3:36 PM EDT 12/01/2024 4:31 PM EDT Sadi Haney MD PATHOLOGY ORDERABLES Nadiya l Result [facility] [address] [place] [address] [facility] [address] [place] [id number] * INTRAOP AIRWAY PLACEMENT (12/01/2024 11:33 AM EDT) Narrative [facility] - 12/01/2024 11:33 [...] 1 Attempt 1 by: Travon Kerr Title: INJECTION MOLDING ENGINEER us Jorge Alberto Hoang MD MS ANESTHESIA Edited Resul t - Final [facility] [address] [place] [id number] * ANE US GUIDANCE (12/01/2024 10:32 AM EDT) Narrative [facility] - 12/01/2024 10:32 [...] ANESTHESIA ORDERABLES Final Result Performing Organization Address [facility] Co de Phone Number [facility] [address] [place] [address] * US ANES GUIDANCE FOR POC [...] Previous History OK 12/01/2024 9:30 AM EDT [facility] Blood VENOUS BLOOD / Unknown Venipuncture / Unknown 12/01/2024 9:22 AM EDT 12/01/2024 9:26 AM EDT us Sadi Haney MD BLOOD BANK ORDERABLES Fin al Result Performing Organization Address [facility] Co de Phone Number [facility] [address] [address] * ABORH (12/01/2024 9:22 AM EDT) Only the most recent of2 resultswithin the time period is included. ABORH Int B POS 12/01/2024 9:5 7 AM EDT [facility] Blood VENOUS BLOOD / Unknown Venipuncture / Unknown 12/01/2024 9:22 AM EDT 12/01/2024 9:26 AM EDT us Sadi Haney MD BLOOD BANK ORDERABLES Fin al Result Performing Organization Address City/[facility] [place] [address] * RED BLOOD CELLS REQUEST (11/23/2024 2:10 PM EDT) Only the most recent of2 resultswithin the time period is included. [facility] Product Code [id number] [facility] BLOOD BANK Unit Number [id number] [facility] Crossmatch Interp Compatible [facility] Dispense Status TRANSFUSED [facility] Blood Expiration Date [id number] [facility] ISBT 128 Type 7300 [facility] Blood Unit Volume 300 ml [facility] BA CODING SYSTEM [id number] [facility] Blood Type (Unit) B POS [facility] Blood 11/23/2024 2:10 PM EDT 11/23/2024 2:17 PM EDT us Peace Rea BUFFING WHEEL INSPECTOR BLOOD PRODUCT ORDERS Nadiya l Result Performing Organization Address [facility] [place] [address] * SURGERY DATE (11/23/2024 2:10 PM EDT) [facility] Surgery Date (1) Complete 11/23/2024 2:31 PM EDT [facility] Blood VENOUS BLOOD / Unknown Venipuncture / Unknown 11/23/2024 2:10 PM EDT 11/23/2024 2:17 PM EDT Susan Grossman BUFFING WHEEL INSPECTOR BLOOD BANK ORDERABLES Fi nal Result Performing Organization Address [facility] [place] [address] * ANTIBODY SCREEN IGG (11/23/2024 2:10 PM EDT) [facility] ABSC IgG Int Negative 11/23/2024 3:13 PM EDT [facility] Blood VENOUS BLOOD / Unknown Venipuncture / Unknown 11/23/2024 2:10 PM EDT 11/23/2024 2:17 PM EDT us Susan Edie Chauncey ROMO BLOOD BANK ORDERABLES Fi nal Result [facility] B[facility]OD B[facility] [address] [place] [id number] * SCANNED EKG (11/07/2024 10:27 AM EDT) [...] contactthe office of the ordering clinician. us Garo Ndiaye MD IMG DIAGNOSTIC IMAGING ORDERAB LES Final Result * D-DIMER (11/07/2024 3:52 AM EDT) D-Dimer 419 <=500 ng/mL FEU 11/07/2024 4:26 AM EDT [facility] Comment:This [...] AM EDT 11/07/2024 3:54 AM EDT Narrative [facility] - 11/07/2024 4:26 AM EDT For patients between the ages of 50 - 75, an age-adjusted D-Dimer cut-off in combination with non-high clinical probability may be considered for the exclusion of venous thromboembolism (calculation = age x 10). CARLOS ENRIQUE Barger, et al. [employer] Med. 2017;166(5):361-363 ANAID Contreras, et al. [employer] Med. 2015;(163):701-711. Matt Johnson, et al. BERTIN. 2014;(11):3849-3261. us Garo Ndiaye MD HEMATOLOGY ORDERABLES Final Re sult [facility] [address] [place] [address] * NT PROBNP (11/07/2024 3:52 AM EDT) NT Pro-BNP 53 <=138 pg/mL 11/07/2024 4:13 AM EDT [facility] Blood VENOUS BLOOD / Unknown Venipuncture / Unknown 11/07/2024 3:52 AM EDT 11/07/2024 3:55 AM EDT Narrative [facility] - 11/07/2024 4:13 AM EDT [...] Ndiaye MD CHEMISTRY ORDERABLES Final Res ult [facility] [address] [place] [address] * (ABNORMAL) COMPREHENSIVE METABOLIC PANEL (11/07/2024 3:52 AM EDT) Sodium 136 136 - 145 mmol/L 11/07/2024 4:13 AM EDT [facility] Potassium 4.5 3.5 - 5.0 mmol/L 11/07/2024 4:13 AM EDT [facility] Chloride 104 98 - 107 mmol/L 11/07/2024 4:13 AM EDT [facility] Total CO2 21(L) 22 - 29 mmol/L 11/07/2024 4:13 AM EDT [facility] Anion Gap 11 7 - 16 mmol/L 11/07/2024 4:13 AM EDT [facility] Calcium 9.5 8.6 - 10.4 mg/dL 11/07/2024 4:13 AM EDT [facility] Glucose Lvl 104(H) 70 - 99 mg/dL 11/07/2024 4:13 AM EDT [facility] BUN 18 6 - 20 mg/dL 11/07/2024 4:13 AM EDT [facility] Creatinine 1.24 0.67 - 1.30 mg/dL 11/07/2024 4:13 AM EDT [facility] Albumin 4.4 3.5 - 5.2 gm/dL 11/07/2024 4:13 AM EDT [facility] Total Protein 7.1 6.4 - 8.3 gm/dL 11/07/2024 4:13 AM EDT [facility] Bili Total 0.3 0.2 - 1.4 mg/dL 11/07/2024 4:13 AM EDT [facility] ALT 20 <=41 U/L 11/07/2024 4:13 AM EDT [facility] AST 20 <=40 U/L 11/07/2024 4:13 AM EDT [facility] Alk Phos 127 40 - 129 U/L 11/07/2024 4:13 AM EDT [facility] eGFR (CKD-EPIcr 2020) 71 >=60 mL/min/1.7 3 m2 11/07/2024 4:13 AM EDT [facility] Comment:Estimated GFR was ca lculated using the CKD-EPIcr (2020) equation refit without race. The equation is recommended by the National Kid[employer] - [place] [employer] Neph[employer] Task Force. Blood VENOUS BLOOD / Unknown Venipuncture / Unknown 11/07/2024 3:52 AM EDT 11/07/2024 3:55 AM EDT us Garo Ndiaye MD CHEMISTRY ORDERABLES Final Res ult [facility] [address] [place] [address] * INTRAOP AIRWAY PLACEMENT (10/27/2024 2:06 PM EDT) Narrative [facility] - 10/27/2024 2:06 [...] Atraumatic and Unchanged Insertion attempts: 1 Title: INJECTION MOLDING ENGINEER us Sherita Moya MD MS ANESTHESIA Final R esult Performing Organization Address [facility]/ZIP Co de Phone Number [facility] [address] [place] [address] * NON-DISABILITY ATTORNEY CYTOLOGY REQUEST (10/27/2024 2:03 PM EDT) Only the most recent of2 resultswithin the time period is included. CASE REPORT Non-gynecologic Cytology Case: [id number] Authorizing Provider: Patricia Ellison MD Collected: 10/27/2024 1403 Ordering Location: [facility] Received: 10/27/2024 1415 Pathologist: Jerome Hickman MD Specimen: Urethra, urine cytology 10/30/2024 1:34 PM EDT [facility] NON-DISABILITY ATTORNEY CYTOLOGY FINAL DIAGNOSIS Catheterized urine, left ureter: - Negative for high-grade urothelial carcinoma. 10/30/2024 1:34 PM EDT [facility] at 1334 EDT EMBEDDED IMAGES 10/30/2024 1:34 PM EDT [facility] MICROSCOPIC DESCRIPTION Microscopic examination is performed and the findings corroborate the diagnosis. 10/30/2024 1:34 PM EDT [facility] Gross Description Urine, Rec'd 10ml of bloody fluid. (TP) 10/30/2024 1:34 PM EDT [facility] Urine URETHRAL STRUCTURE / Unknown 10/27/2024 2:03 PM EDT 10/27/2024 2:15 PM EDT Patricia Ellison MD CYTOLOGY ORDERABLES Final Re sult Performing Organization Address City/[facility]/ZIP Co de Phone Number [facility] [address] [place] [address] * EC ECHOCARDIOGRAM COMPLETE W DOPPLER AND [...] (FAST), 10/19/2024 10:40 AM CLINICAL HISTORY: N13.30-Unspecified [id number]. COMPARISON: None. PROCEDURE COMMENTS: Multi-detector CT scanning [...] (FAST), 10/19/2024 10:40 AM CLINICAL HISTORY: N13.30-Unspecified [id number]. COMPARISON: None. PROCEDURE COMMENTS: Multi-detector CT scanning [...] - 1.3 mg/dL 10/19/2024 10:39 AM EDT [facility] Blood BLOOD SPECIMEN / Unknown 10/19/2024 10:35 AM EDT 10/19/2024 10:39 AM EDT us Logan Kenny MD POINT OF CARE TEST [place] [address], [facility] [phone] * [facility] LOWER EXTREMITY BILATERAL MAPPING (10/19/2024 9:27 [...] in zones 5through 8. Logan Kenny MD [facility] Nadiya l Result * [place] [...] flow visualized in the bilateral vertebral arteries. 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 PROCEDURE COMMENTS: Multi-detector CT of [...] disease of nativecoronary artery with unspecified angina [id number] COMPARISON: None. PROCEDURE COMMENTS: Multi-detector CT of [...] Indicated C-diff 12/06/2024 12/06/2024 Insurance JOSE PPO ANTHEM PPO Advance Directives For more information, please contact: [phone] * Full Code (Latest Code Status on File) Date Activated Date Inactivated Comments 12/01/2024 6:51 PM 12/08/2024 3:55 PM Care Teams Wildlife Removal Specialist Relationship Specialty Start Date End Date Reyna Perez APRN [address] [facility] [address] [place] [phone] PCP - General Nurse Practitioner 10/27/24
[2025-01-03 08:58] LABS: Hematocrit 36.3 % (42.0-52.0); Hemoglobin 12.1 g/dL (14.1-18.0); Immature Granulocytes % 0.8 %; Mean Corpuscular HGB Conc 33.3 g/dL (31.8-35.4); Mean Corpuscular Hemoglobin 29.9 pg (27.0-31.2); Mean Corpuscular Volume 89.6 fl (80-94); Nucleated Red Blood Cells % 0 %; Platelet Count 265 K/mm3 (142-424); Red Blood Count 4.05 M/mm3 (4.60-6.20); Red Cell Distribution Width-SD 44.1 fL; White Blood Count 7.3 K/mm3 (4.8-10.8)
[2025-01-03 09:33] LABS: Chloride 109 mmol/L (98-107); Sodium 142 mmol/L (136-145)
[2025-01-03 09:34] LABS: Potassium 4.3 mmoL/L (3.5-5.1)
[2025-01-03 09:36] LABS: Blood Urea Nitrogen 13 mg/dl (9-20); Creatinine,Serum 1.00 mg/dl (0.66-1.25); Estimated Glomerular Filt Rate 79 ml/min (>60); GFR (African American) 96 ML/MIN (>60)
[2025-01-03 09:37] LABS: Anion Gap 14.3 mEq/L (5-15); Calcium 9.3 mg/dl (8.4-10.2); Carbon Dioxide 23 mmol/L (22.0-30.0); Glucose 79 mg/dl (74-100)
[2025-01-03 09:52] LABS: Albumin Level 4.3 g/dl (3.5-5.0); Free T4 (Free Thyroxine) 1.00 ng/dl (0.78-2.19)
[2025-01-03 09:54] LABS: Alanine Aminotransferase 32 U/L (12-78); Aspartate Amino Transferase 28 U/L (17-59); Bilirubin,Unconjugated 0.3 mg/dL (0.0-1.1)
[2025-01-03 09:55] LABS: Alkaline Phosphatase 100 U/L (38-126); Bilirubin,Direct 0.1 mg/dl (0.0-0.4); Bilirubin,Indirect 0.3 mg/dL (0.0-0.9); Bilirubin,Total 0.4 mg/dl (0.2-1.3); Cholesterol 135 mg/dl (140-200); HDL Cholesterol 34 mg/dl (40-60); Magnesium 1.9 mg/dl (1.6-2.3); Total Protein,Serum 6.7 g/dl (6.3-8.2); Triglycerides 177 mg/dl (30-150)
[2025-01-03 10:26] LABS: Thyroid Stimulating Hormone 1.82 uIU/mL (0.465-4.68)
== END 2025-01-03 23:59 | disposition home or self-care (01) ==
LOC: LAB 08:14
PROVIDERS: Nurse Practitioner Family; PCP Nurse Practitioner; Visit Provider Internal Medicine
DX: I25.110 Atherosclerotic heart disease of native coronary artery with unstable angina pectoris (principal); I10 Essential (primary) hypertension
CPT/HCPCS: 36415; 80048; 80061; 80076; 83735; 84439; 84443; 85025

== ENCOUNTER 2025-01-27 11:21 | Emergency (ER) | payer MEDICAID, SELFPAY ==
--- OUTSIDE RECORDS SUMMARY | 2024-12-01 08:38 | XMS_ITS | Encounter Summary ---
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] Procedures UT LAPAROSCOPY RADICAL NEPHRECTOMY UT CYSTOURETHROSCOPY W/DEST &/RMVL MED BLADDER EMERY UT LAPAROSCOPY NEPHRECTOMY W/TOTAL URETERECTOMY LEFT DAVINCI ROBOTIC NEPHROURETERECTOMY, CYSTOSCOPY, TRANSURETHRAL RESECTION OF THE BLADDER TUMOR Referral ID Status Reason Start Date Expiration Date Visits Re quested Visits Authorized [id number] 1 1 Encounter Details Date Type Department Care Team (Latest Contact Info) Description 12/01/2024 8:38 AM EDT - 12/08/2024 11:29 AM EDT Hospital Encounter [facility] 7[facility] UROLOGY [place] [phone] Sadi Haney MD [address] [facility] [address] [place] [address] Preop testing (Primary Dx); Ureteral mass Discharge Disposition: Discharge/Readmit Social History Tobacco Use Types Packs/Day Years Used Date Smoking Tobacco: Every Day Cigarettes 1 37.2 Started: 05/10/1989 Smokeless Tobacco: Never Alcohol Use Standard Drinks/Week Comments Not Currently 0 (1 standard drink = 0.6 oz pur e alcohol) [facility] Utilities Answer Date Recorded In the past 12 months has [employer] electric, gas, oil, or water company threatened to shut off services in your home? No 12/04/2024 Overall Financial Resource Strain (CARDIA) Answe r Date Recorded How hard is it for you to pa y for the very basics like food, housing, medical care, and heating? Somewhat hard 12/04/2024 PHQ-2 Answer Date Recorded PHQ-2 Total Score 0 12/04/2024 [facility] - Occup[facility] [...] have money to get more. Never true [facility] IP Transportation Answer D ate Recorded [...] 8:11 PM EDT Viri Segura RN * [place] Suicide Severity Rating Scale (Q shift for [...] Physician Discharge Summary Patient ID: Alex Hoffman [id number] 49 y.o. 1975 Admit date: 12/01/2024 Discharge [...] Your Medications These medications were sent to [facility] [address] [facility] [place] [address] Hours: Wednesday-Wednesday 8:00am - 6:30pm traMADoL 50 mg Tab You can get these medications from any pharmacy You don't need a prescription for these medications acetaminophen 325 mg Tab Sadi Haney MD [address] [facility] [address] [facility] [address] Follow up in 2 week(s) follow up with Logan Montana MD [address] [facility] [place] [address] Follow up in 2 week(s) To discuss re-intation of antiplatelet therapy and further CTS w/u Reyna Perez APRN [address] [facility] [address] [facility] [address] Follow up in 1 week(s) Hospital [...] UNABLE TO REACH YOUR UROLOGIST OR UROLOGIST CLINICAL GENETICIST, YOU SHOULD GO TO A NEARBY EMERGENCY [...] a day, please call the [facility] urology department * Attachments The following attachments cannot be sent through Care Everywhere. * How to use an incentive spirometer (E[place]ian) * Nephrectomy ??? Discharge instructions (Egyptian) * How to take anticoagulants safely (E[place]ian) * Vancomycin (E[place]ian) * Cefuroxime ([place]ian) documented in this encounter Medications at Time [...] 8 hours as needed for Nausea. 09/26/2024 cefUROXime (CEFTIN) 500 mg Oral Tablet Take 1 Tablet by mouth every 12 hours for 5 doses. 5 Tablet 12/08/2024 11:27 AM EDT 12/08/2024 5 tolterodine (DETROL LA) 4 mg Oral Capsule, Sust. Release 24 hr Take 1 Capsule by mouth daily. 30 Capsule 12/08/2024 11:27 AM EDT 12/09/2024 5 traMADoL (ULTRAM) 50 mg Oral Tablet [...] 30 Capsule 12/08/2024 11:27 AM EDT 12/08/2024 acetaminophen 325 mg Oral Tab Take 2 [...] Tablet 12/08/2024 11:27 AM EDT 12/08/2024 5 tolterodine (DETROL LA) 4 mg Oral Capsule, Sust. Release 24 hr Take 1 Capsule by mouth daily. 30 Capsule 12/08/2024 11:27 AM EDT 12/09/2024 5 traMADoL (ULTRAM) 50 mg Oral Tablet [...] AM EDT Discharge Medication Delivery Service [employer] broadcast maintenance technician has delivered the following medications for Alex Hoffman: Rx#[id number]:TRAMADOL 50 MG TABLET-50 mg EVERY 6 HOURS PRN Rx#[id number]:TOLTERODINE ER 4 MG CAPSULE,EXTENDED RELEASE 24 HR-4 mg DAILY Rx#[id number]:CEFUROXIME AXETIL 500 MG TABLET-500 mg EVERY 12 HOURS SCHEDULED Rx#[id number]:HYDROXYZINE PAMOATE 25 MG CAPSULE-25 mg EVERY 8 HOURS PRN Rx#[id number]:VANCOMYCIN 125 MG CAPSULE-125 mg 4 TIMES DAILY Date/Time of Delivery: 12/08/2024 11:35 AM Delivered to: Room 7308 Placed med bag on tray table. Please contact [employer] broadcast maintenance technician with any questions. Thanks! More Johnston [...] AM EDTAssociated Problem(s): Coronary artery disease involving [place] coronary artery of [place] heart without angina pectoris - CABG planned [...] carcinoma Elevated troponin Coronary artery disease involving [place] coronary artery of [place] heart without angina pectoris - CABG planned [...] left ureter (HCC) Coronary artery disease involving [place] coronary artery of [place] heart without angina pectoris Subjective: at bedside. [...] from the original note were not included. [facility] Urology Progress Note Hospital Day: 8 [...] PM EDTAssociated Problem(s): Coronary artery disease involving [place] coronary artery of [place] heart without angina pectoris - CABG planned [...] - changed antibiotics to PO * Juana Sheomaker MD - 12/07/2024 2:47 PM EDTAssociated Problem(s): [...] urology Elevated troponin Coronary artery disease involving [place] coronary artery of [place] heart without angina pectoris - CABG planned [...] left ureter (HCC) Coronary artery disease involving [place] coronary artery of [place] heart without angina pectoris Subjective: at bedside. [...] PT Subjective Note Type Discharge Patient Room/Unit 8170 Discharge Information Discharge complete, please see discharge summary report for further information including most recently documented activity level Clinical Course pt obsesrved to be amb numerous laps in [facility]. therapy will sign off at thistimes Plan PT Frequency Complete Cosigned by Jennifer Santamaria PT at 12/07/2024 11:18 AM EDT Associated attestation - Jennifer Santamaria PT - 12/07/2024 11:18 AM EDT I agree with the LAND LEASE INFORMATION CLERK documentation. * Peace Rea APRN - 12/07/2024 6:58 AM EDT Images from the original note were not included. [facility] Urology Urology Progress Note Hospital Day: 7 [...] PM EDTAssociated Problem(s): Coronary artery disease involving [place] coronary artery of [place] heart without angina pectoris - CABG planned [...] carcinoma Elevated troponin Coronary artery disease involving [place] coronary artery of [place] heart without angina pectoris - CABG planned [...] left ureter (HCC) Coronary artery disease involving [place] coronary artery of [place] heart without angina pectoris Subjective: Diarrhea improving. [...] Juana Shoemaker MD 12/06/2024 1:32 PM * Edith Colorado, OT - 12/06/2024 12:47 PM EDT 12/06/24 [...] Steps 2 Home Equipment None;Mobilized without AD LAND LEASE INFORMATION CLERK Level of Assistance Independent with ADLs ;Independent [...] Functional Percentage 38.32 AM PAC Daily Activity [facility] G Code Modifier CJ Education Education Role [...] -- Restart toprol 25mg QD today - LAND LEASE INFORMATION CLERK Lasix 40gm QD, losartan 50mg QD, Toprol 25mg QD (on hold) Anemia - Hgb 10.2>7.5>8.1>7.9>7.3>8.2>8.9>8.4>9.4>8.7 - s/p 2 U PRBC's 12/03 and 1 U PRBC 12/04 CAD - EKG SR no acute ischemia appreciated - Trops 27> 26 - Denies chest pain/ diaphoresis/ nausea - LAND LEASE INFORMATION CLERK Effient, ASA, Statin, Toprol - Echo 10/2024: EF 60-65%. - LHC showed ostial LAD 70% stenosis, circumflex (nondominant) with 60-70% stenosis, with 30-40% stenosis of first OM. Pt reports he had LHC and PCI on 09/27/24 (VIC x 1 to RCA) at [facility]. Pt was scheduled to have additional PCI [...] initiated Further input from Dr. Packer. Promise Cho APRN, Heart and Vascular 12/06/2024 Cardiology Disposition Perspective [...] Steps 2 Home Equipment None;Mobilized without AD LAND LEASE INFORMATION CLERK Level of Assistance Independent with ADLs ;Independent [...] from the original note were not included. [facility] Urology Progress Note Hospital Day: 6 [...] from the original note were not included. [facility] Urology Urology Progress Note Hospital Day: 5 [...] I/O: Intake/Output Summary (Last 24 hours) at 12/05/20249 Last data filed at 12/05/2024 2122 Gross per 24 hour Intake 579.73 ml [...] PM EDTAssociated Problem(s): Coronary artery disease involving [place] coronary artery of [place] heart without angina pectoris - CABG planned [...] negative thus far. Sepsis syndrome improved * uJana Shoemaker MD - 12/05/2024 1:37 [...] pending Elevated troponin Coronary artery disease involving [place] coronary artery of [place] heart without angina pectoris - CABG planned [...] left ureter (HCC) Coronary artery disease involving [place] coronary artery of [place] heart without angina pectoris Subjective: at bedside. [...] Intake/Output Summary (Last 24 hours) at 12/05/2024 09 Last data filed at 12/05/2024 0912 Gross [...] to restart- no doses yet 12/04 - LAND LEASE INFORMATION CLERK Lasix 40gm QD, losartan 50mg QD, Toprol 25mg QD (on hold) Anemia - Hgb 10.2>7.5>8.1>7.9>7.3>8.2>8.9>8.4 - s/p 2 U PRBC's 12/03 and 1 U PRBC 12/04 CAD - EKG SR no acute ischemia appreciated - Trops > - Denies chest pain/ diaphoresis/ nausea - LAND LEASE INFORMATION CLERK Effient, ASA, Statin, Toprol - Echo 10/2024: EF 60-65%. - LHC showed ostial LAD 70% stenosis, circumflex (nondominant) with 60-70% stenosis, with 30-40% stenosis of first OM. Pt reports he had LHC and PCI on 09/27/24 (VIC x 1 to RCA) at [facility]. Pt was scheduled to have additional PCI [...] - Will discuss bASA plans with attending recovery coordinator - on hold currently last dose 12/04. [...] bedside. PCI in September. Working towards CABG. LAND LEASE INFORMATION CLERK Effient and bASA. Currently holding both. Recommend resumption bASA as soon as cleared by Urology. BP controlled on current regimen. Hgb trend better today. Will follow tomorrow. * Peace Rea APRN - 12/05/2024 8:01 AM EDT Images from the original note were not included. [facility] Urology Progress Note Hospital Day: 5 [...] 130/61 -- -- 74 18 96 % 12/04/240 108/56 98.4 ??F (36.9 ??C) Oral 80 [...] from the original note were not included. [facility] Urology Urology Progress Note Hospital Day: 4 [...] incision of left ureteral orifice with Dr. Haeny on 12/01. Plan: -bASA on hold -DAMIEN [...] Pt admitted with Ureteral Mass, pt has [employer] insurance. Note pt is alert and oriented x4. CC met with pt and Tessy at bedside and introduced self and role. Pt states he lives in a 1 story home with 2 steps to enter, ptstates he lives with his Tessy. PCP is Reyna Perez. Pt states he uses [facility] in [place]. Pt states he has concerns with affordability [...] Status Alert and oriented Does patient need aircraft designer? No Decision Maker Patient Activities of Daily [...] or connection with God Interventions with Patient Temple Interventions Prayer with patient or family Outcomes Expressed Outcomes Appreciative of visit Care Plan Plan for Follow-Up Polysom Tech(s) will continue to follow throughout admission Carolyn [...] to restart- no doses yet 12/04 - LAND LEASE INFORMATION CLERK Lasix 40gm QD, losartan 50mg QD, Toprol 25mg QD (on hold) Anemia - Hgb 10.2>7.5>8.1>7.9>7.3 - s/p 2 U PRBC's 12/03 and 1 U PRBC 12/04 CAD - EKG SR no acute ischemia appreciated - Trops 27> 26 - Denies chest pain/ diaphoresis/ nausea - LAND LEASE INFORMATION CLERK Effient, ASA, Statin, Toprol - Echo 10/2024: EF 60-65%. - LHC showed ostial LAD 70% stenosis, circumflex (nondominant) with 60-70% stenosis, with 30-40% stenosis of first OM. Pt reports he had LHC and PCI on 09/27/24 (VIC x 1 to RCA) at [facility]. Pt was scheduled to have additional PCI to LAD and circ however pt wanted a second opinion for possible CABG surgery. Met with Dr. Kenny 10/10 with plans for CABG x 2 with QUINTIN clip on 10/30/24.however this was postponed until urology w/u is complete. Plan: - Supportive care per others - Continue statin, Toprol - Will discuss bASA plans with attending recovery coordinator - on hold currently last dose today [...] AM EDTAssociated Problem(s): Coronary artery disease involving [place] coronary artery of [place] heart without angina pectoris Cardiology consulted. Plan [...] with bloody output. Coronary artery disease involving [place] coronary artery of [place] heart without angina pectoris Cardiology consulted. Plan [...] from the original note were not included. [facility] Urology Urology Progress Note Hospital Day: 4 [...] 2329 -- -- -- 88 -- -- 07/27/25 2236 108/61 -- -- -- -- -- 12/03/242058 118/54 98.3 ??F (36.8 ??C) Oral 88 17 98 % I/O: Intake/Output Summary (Last 24 hours) at 12/04/2024 0725 Last data filed at 12/04/2024 0642 Gross [...] hb was 8.2 Stopped bASA after d/w recovery coordinator Plan: Hold bASA DAMIEN off suction Check [...] from the original note were not included. [facility] Urology Progress Note Hospital Day: 3 [...] is tomorrow. Patient also reports buttock pain 20/10 post surgery. No open area, skin blanching. [...] BP Further input from Dr Lizzie Hinkle, MASTER PLANNER, Heart and Vascular 12/03/2024 Disposition Perspective - [...] any restarting metoprolol today. 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 Plan per urology, follow path - await urology plans for today Elevated troponin Coronary artery disease involving [place] coronary artery of [place] heart without angina pectoris - CABG planned [...] from the original note were not included. [facility] Urology Urology Progress Note Hospital Day: 3 [...] 2307 -- -- -- 101 -- -- 12/02/245 135/75 98.2 ??F (36.8 ??C) Oral 113 (!) 22 97 % 12/02/240 112/64 98.9 ??F (37.2 ??C) -- 115 20 95 % 12/02/24 2108 112/64 98.9 ??F (37.2 ??C) [...] from the original note were not included. [facility] Urology Urology Progress Note Hospital Day: 2 [...] I/O: Intake/Output Summary (Last 24 hours) at 12/02/20242137 Last data filed at 12/02/2024 1856 Gross [...] and relaxation without help. Message sent to water pollution specialist and 1x dose valium ordered. Pt noted [...] did have temp 99.1/shaky at this time. MD notified. Will monitor. * Meng Chen MD [...] PM EDTAssociated Problem(s): Coronary artery disease involving [place] coronary artery of [place] heart without angina pectoris - diffuse severe [...] from the original note were not included. [facility] Day: 2 [...] Oral 105 16 95 % -- -- 12/01/242005 119/81 97.5 ??F (36.4 ??C) Oral 110 [...] Rogers APRN - 12/01/2024 8:50 AM EDT [facility] History and Physical Name: Alex Hoffman ADDRESS: [address] [place] [address] [place] [address] : 1975 AGE: 49 y.o. ASSESSMENT: Ureteral [...] disease) Heartburn Hyperlipidemia Hypertension Kidney mass left NC (myocardial infarction) (HCC) 09/17/2024 Motion sickness Past Surgical History: Procedure Laterality Date CARDIAC CATHETERIZATION CORONARY ANGIOPLASTY WITH STENT PLACEMENT Sep 19 2022 CYSTOSCOPY 10/27/2024 Surgeon: Patricia Ellison MD; Location: [facility]; Service: Urology Prior to Admission [...] not taking: Reported on 11/23/2024 11/21/24 12/01/24 Shania Wu APRN No Known Allergies Social History Socioeconomic History [...] left radical nephroureterectomy. SURGEON Sadi Haney MD SOILS ANALYST See OR record ANESTHESIS General. ESTIMATED BLOOD LOSS 100 mL. DRAINS 10 mm DAMIEN. TUBES 22 Jamaican Bradford catheter. COMPLICATIONS None. POSTOPERATIVE CONDITION Good. [...] the midclavicular line. A 12 mm assistant project engineer port was placed above the umbilicus. A 5 mm port for the assistant project engineer was placed below the xiphoid process. The [...] Hoffman 1 PCP: Reyna Perez APRN Primary Baster Hand: None on file I would like to [...] disease) Heartburn Hyperlipidemia Hypertension Kidney mass left NC (myocardial infarction) (HCC) 09/17/2024 Motion sickness LAND LEASE INFORMATION CLERK Medications: Prior to Admission medications Medication Sig [...] CYSTOSCOPY 10/27/2024 Surgeon: Patricia Ellison MD; Location: [facility]; Service: Urology Allergy No Known [...] most recent cardiovascular imaging studies available in [facility] EMR were reviewed at time of consultation [...] 4. Pneumonia. Per primary. Bear Samuel MD, [facility] 12/02/2024 6:11 PM * Meng Chen [...] disease) Heartburn Hyperlipidemia Hypertension Kidney mass left NC (myocardial infarction) (HCC) 09/17/2024 Motion sickness Past Surgical History: Procedure Laterality Date CARDIAC CATHETERIZATION CORONARY ANGIOPLASTY WITH STENT PLACEMENT Sep 19 2022 CYSTOSCOPY 10/27/2024 Surgeon: Patricia Ellison MD; Location: 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 Plan per urology, follow path Coronary artery disease of [place] artery of [place] heart with stable angina pectoris - diffuse [...] SURGERY: 12/01/2024 WITH Sadi Khoury MD FOR: UT LAPAROSCOPY NEPHRECTOMY W/TOTAL URETERECTOMY [67312] (LEFT DAVINCI ROBOTIC NEPHROURETERECTOMY, CYSTOSCOPY, TRANSURETHRAL RESECTION OF THE BLADDER TUMOR) UT LAPAROSCOPY RADICAL NEPHRECTOMY [11630] UT CYSTOURETHROSCOPY W/DEST &/RMVL MED BLADDER EMERY [12931] THE ANESTHESIA DEPARTMENT IS REQUESTING A CLEARANCE RELATED TO: Recent PCI. Also surgeons is requesting if blood thinner can be held ? Anesthesia type:General PLEASE RESPOND TO THIS ENCOUNTER OR CALL WITH ANY QUESTIONS/CONCERNS PHONE: [phone] Thank You [facility] PRE-ADMISSION TESTING DEPARTMENT * Shoshana Rankin RN - 11/23/2024 2:24 PM EDT REPORTS REQUEST ATTENTION:Reyna Perez PATIENT: Alex Hoffman : 1975 This patient is scheduled for surgery on 12/01/2024 with Sadi Khoury MD Anesthesia has requested the most recent results of the following tests: Most recent office visit note and any recent testing COMMENTS:__Thanks! Please fax to Pre-admission testing. PHONE # [phone] ATTENTION: [address] [address] documented in this encounter Miscellaneous Notes * Utilization Review Notes - Gala Powell LPN - 12/08/2024 11:29 AM EDT DISCHARGED HOME ON 12/08/24 FOLLOW UP WITH Sadi Haney MD [address] [facility] [address] [facility] [id number] Follow up in 2 week(s) follow up with Logan Montana MD [address] [facility] [id number] Follow up in 2 week(s) To discuss re-intation of antiplatelet therapy and further CTS w/u Reyna Perez, MASTER PLANNER [address] [facility] [address] [facility] [address] Follow up in 1 week(s) Hospital follow up, recheck CBC next week with PCP prior to restarting blood thinner * Query Response Document - Juana Shoemaker MD - 12/08/2024 11:29 AM EDT [facility] CDI / HIM Coding Query Documentation PATIENT: ALEX HOFFMAN : 1975 ADMIT DATE: 12/01/2024 8:38 AM DISCH DATE: 12/08/2024 11:29 AM RESPONDING PROVIDER #: [id number] PROVIDER QUERY RESPONSE TEXT: Severe Sepsis POA [...] any questions, please contact Rodriguez Gabriel @ [phone]) Options provided: -- Severe Sepsis POA -- [...] * Utilization Review Notes - Gala Powell, ELISE - 12/07/2024 9:54 AM EDT 12/07 TEMP [...] from the original note were not included. CIGAR BRANDER FOR ADMIT ON 12/01 ON MED SURG [...] pending Elevated troponin Coronary artery disease involving [place] coronary artery of [place] heart without angina pectoris - CABG planned [...] - Will discuss bASA plans with attending recovery coordinator - on hold currently last dose 12/04. [...] to restart- no doses yet 12/04 - LAND LEASE INFORMATION CLERK Lasix 40gm QD, losartan 50mg QD, Toprol 25mg QD (on hold) Anemia - Hgb 10.2>7.5>8.1>7.9>7.3 - s/p 2 U PRBC's 12/03 and 1 U PRBC 12/04 CAD - EKG SR no acute ischemia appreciated - Trops 27> 26 - Denies chest pain/ diaphoresis/ nausea - LAND LEASE INFORMATION CLERK Effient, ASA, Statin, Toprol - Echo 10/2024: EF 60-65%. - LHC showed ostial LAD 70% stenosis, circumflex (nondominant) with 60-70% stenosis, with 30-40% stenosis of first OM. Pt reports he had LHC and PCI on 09/27/24 (VIC x 1 to RCA) at [facility]. Pt was scheduled to have additional PCI to LAD and circ however pt wanted a second opinion for possible CABG surgery. Met with Dr. Kenny 10/10 with plans for CABG x 2 with QUINTIN clip on 10/30/24.however this was postponed until urology w/u is complete. Plan: - Supportive care per others - Continue statin, Toprol - Will discuss bASA plans with attending recovery coordinator - on hold currently last dose today [...] urology, follow path Coronary artery disease of [place] artery of [place] heart with stable angina pectoris - diffuse [...] documented in this encounter Plan of Treatment Pending Results Name Type Priority Associated Diagnoses [...] Hoffman 1 PCP: Reyna Perez APRN Primary Baster Hand: None on file I would like to [...] disease) Heartburn Hyperlipidemia Hypertension Kidney mass left NC (myocardial infarction) (HCC) 09/17/2024 Motion sickness LAND LEASE INFORMATION CLERK Medications: Prior to Admission medications Medication Sig Start Date End Date Last Dose Authorizing Provider acetaminophen 325 mg Oral Tab Take 2 Tablets by mouth every 4 hours asneeded for Fever. 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 Pneumonia. Per primary. Bear Samuel MD, [facility] 12/02/2024 6:11 PM TROPONIN-T HIGH SENSITIVITY 2HR [...] disease) Heartburn Hyperlipidemia Hypertension Kidney mass left NC (myocardial infarction) (HCC) 09/17/2024 Motion sickness Past Surgical History: Procedure Laterality Date CARDIAC CATHETERIZATION CORONARY ANGIOPLASTY WITH STENT PLACEMENT Sep 19 2022 CYSTOSCOPY 10/27/2024 Surgeon: Patricia Ellison MD; Location: [facility] MAIN OR; Service: Urology No Known Allergies [...] Rate: 100 mL/hr at12/02/24916, 1 g at 12/02/24916 diphenhydrAMINE (BENADRYL) tablet 12.5-25 mg, 12.5-25 mg, [...] left ureter (HCC) Coronary artery disease of [place] artery of [place] heart with stableangina pectoris Assessment and Plan Assessment & Plan 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 Planper urology, follow path Coronary artery disease of [place] artery of [place] heart with stableangina pectoris - diffuse severe [...] OLYMPUS ESU, CYSTO FIRST, KCDR HAJ-HAMED ASSISTINGsk UT CYSTOURETHROSCOPY W/DEST &/RMVL MED BLADDER EMERY 12/01/2024 11:21 AM EDT Ureteral mass Special Needs LASSITER KNIFE, HANG WATER, OLYMPUS ESU, CYSTO FIRST, KCDR HAJ-HAMED ASSISTINGsk UT LAPAROSCOPY RADICAL NEPHRECTOMY 12/01/2024 11:21 AM EDT Ureteral mass Special Needs LASSITER KNIFE, HANG WATER, OLYMPUS ESU, CYSTO FIRST, KCDR HAJ-HAMED ASSISTINGsk UT LAPAROSCOPY NEPHRECTOMY W/TOTAL URETERECTOMY 12/01/2024 11:21 AM EDT Ureteral mass Special Needs LASSIETR KNIFE, HANG WATER, OLYMPUS ESU, CYSTO FIRST, KCDR HAJ-HAMED ASSISTINGsk US ANES GUIDANCE FOR POC PIEDAD 12/01/2024 9:47 AM EDT BB HISTORY CHECK STAT 12/01/2024 9:22 AM EDT Preop testing ABORH STAT 12/01/2024 9:22 AM EDT Preop testing RED BLOOD CELLS REQUEST [facility] 11/23/2024 2:10 PM EDT RED BLOOD CELLS REQUEST [facility] 11/23/2024 2:10 PM EDT documented in this [...] 6:48 AM EDT [facility] [place] Percent 11.0 % 12/08/2024 6:48 AM EDT [facility] Eos Percent 1.9 % 12/08/2024 6:48 AM EDT [facility] Baso Percent 0.3 % 12/08/2024 6:48 AM EDT [facility] Neut # 6.7(H) 1.6 - 6.1 x10(3)/[facility] 12/08/2024 6:48 AM EDT [facility] Comment:Neutrophils equals s egs plus bands IMMGRAN# 0.1 0.0 - 0.1 x10(3)/[facility] 12/08/2024 6:48 AM EDT [facility] Comment:Automated count of m etamyelocytes, myelocytes and promyelocytes. An absolute IG <0.1 is reported as 0.0. Lymph # 1.3 1.2 - 3.9 x10(3)/[facility] 12/08/2024 6:48 AM EDT [facility] [place] # 1.0(H) 0.3 - 0.9 x10(3)/[facility] 12/08/2024 6:48 AM EDT [facility] Eos# 0.2 0.0 - 0.5 x10(3)/[facility] 12/08/2024 6:48 AM EDT [facility] Baso # 0.0 0.0 - 0.1 x10(3)/[facility] 12/08/2024 6:48 AM EDT [facility] Blood VENOUS BLOOD / Unknown Venipuncture / Unknown 12/08/2024 6:02 AM EDT 12/08/2024 6:35 AM EDT Juana Shoemaker MD HEMATOLOGY ORDERABLES Final R esult [facility] [address] [facility] , [place] [address] * (ABNORMAL) BASIC METABOLIC PANEL (12/08/2024 6:02 AM EDT) Sodium 137 136 - 145 mmol/L 12/08/2024 7:09 AM EDT [facility] Potassium 3.7 3.5 - 5.0 mmol/L 12/08/2024 7:09 AM EDT [facility] Chloride 104 98 - 107 mmol/L 12/08/2024 7:09 AM EDT [facility] Total CO2 21(L) 22 - 29 mmol/L 12/08/2024 7:09 AM EDT [facility] Anion Gap 12 7 - 16 mmol/L 12/08/2024 7:09 AM EDT [facility] Calcium 9.3 8.6 - 10.4 mg/dL 12/08/2024 7:09 AM EDT [facility] Glucose Lvl 105(H) 70 - 99 mg/dL 12/08/2024 7:09 AM EDT [facility] BUN 11 6 - 20 mg/dL 12/08/2024 7:09 AM EDT [facility] Creatinine 0.96 0.67 - 1.30 mg/dL 12/08/2024 7:09 AM EDT [facility] eGFR (CKD-EPIcr 2020) 96 >=60 mL/min/1.7 3 m2 12/08/2024 7:09 AM EDT [facility] Comment:Estimated GFR was ca lculated using the CKD-EPIcr (2020) equation refit without race. The equation is recommended by the National Kidney Foundation - [place] Society of Nephrology Task Force. Blood VENOUS BLOOD / Unknown Venipuncture / Unknown 12/08/2024 6:02 AM EDT 12/08/2024 6:34 AM EDT us Juana Shoemaker MD CHEMISTRY ORDERABLES Final Re sult [address], [place] [address] * ECG AND WAVEFORMS - TELEMETRY (12/07/2024 8:06 PM EDT) ECG INTERPRET NSR [facility] 12/07/2024 8:06 PM EDT Narrative [facility] - 12/07/2024 8:18 PM EDT ROUTINE (BS) UT 0.16 QRS 0.12 RR 0.65 QT 0.40 QTc 0.50 See Clinical Report link for waveform capture us Unknown Provider POINT OF CARE CARDIOLOGY Final Result [facility] [address] [place] [id number] * [place] CYSTOGRAM MINIMUM 3 VW (12/07/2024 [...] was performed by Rachna Eller, physician assistant project engineer, under the supervision of Dr. Singh. A total fluoroscopy time of 1.2 minutes was used. 119 fluoroscopic spot images were saved to PACS. FINDINGS: Via Bradford catheter, 175 mL of water-soluble contrast was instilled retrograde into the urinary bladder. Imaging was performed in multiple projections. School Principal radiographs show a surgical drain over the [...] examination was performed by Rachna Eller,physician assistant project engineer, under the supervision of Dr. Singh. A total fluoroscopy timeof 1.2 minutes was used. 119 fluoroscopic spot images were saved to PACS. FINDINGS: Via Bradford catheter, 175 mL of water-soluble contrast wasinstilled retrograde into the urinary bladder. Imaging was performed in multiple projections. School Principal radiographs show a surgical drain over the [...] (12/07/2024 10:12 AM EDT) ECG INTERPRET NSR [facility] 12/07/2024 10:1 2 AM EDT Narrative [facility] - 12/07/2024 10:20 AM EDT (DT)ROUTINE UT 0.15 QRS 0.09 RR 0.73 QT 0.37 QTc 0.43 See Clinical Report link for waveform capture us Unknown Provider POINT OF CARE CARDIOLOGY Final Result [facility] [address] [facility] [place] [address] * (ABNORMAL) CBC (12/07/2024 5:33 [...] ORDERABLES Fin al Result [facility] [address] [facility] , [place] [address] * ECG AND WAVEFORMS - TELEMETRY (12/06/2024 11:04 PM EDT) [facility] ECG INTERPRET NSR [facility] 12/06/2024 11:0 4 PM EDT Narrative [facility] - 12/06/2024 11:37 PM EDT ROUTINE UT 0.13 QRS 0.12 RR 0.84 QT 0.40 QTc 0.43 See Clinical Report link for waveform capture us Unknown Provider POINT OF CARE CARDIOLOGY Final Result [facility] 1 [place] [address] * (ABNORMAL) C DIFF INTERPRETATION (12/06/2024 9:57 AM EDT) [facility] C Diff Toxin DNA Positive(A) Negative 12/06/2024 [...] 10:05 AM EDT Narrative [facility] - 12/06/2024 1:18 PM EDT Toxin producing C diff target DNA sequences detected. Toxins A/B positive. CDI likely. Consider initiation of severity-based CDI therapy according to CDI management guidance. us Brody LINDQUIST MICROBIOLOGY - GENERAL ORDERABLE S Final Result [facility] [address] [facility] , [place] [address] * C DIFF GDH AG AND TOXIN A+B (12/06/2024 9:57 AM EDT) Stool RECTUM STRUCTURE / Unknown Collection / Unknown 12/06/2024 9:57 AM EDT 12/06/2024 10:05 AM EDT us Brody LINDQUIST MICROBIOLOGY - GENERAL ORDERABLE S Final Result Performing Organization Address City/[facility]/ZIP Co de Phone Number [facility] [employer] [address] [place] [address] , [place] [address] * C DIFF TOXIN DNA (12/06/2024 9:57 AM EDT) Stool RECTUM STRUCTURE / Unknown Collection / Unknown 12/06/2024 9:57 AM EDT 12/06/2024 10:05 AM EDT us Brody LINDQUIST MICROBIOLOGY - GENERAL ORDERABLE S Final Result Performing Organization Address City/[facility]/ZIP Co de Phone Number [facility] [employer] [address] [place] [address] , [place] [address] * ECG AND WAVEFORMS - TELEMETRY (12/06/2024 7:01 AM EDT) ECG INTERPRET NSR [facility] 12/06/2024 7:01 AM EDT Narrative [facility] - 12/06/2024 8:04 AM EDT (DT)ROUTINE UT 0.17 QRS 0.09 RR 0.78 QT 0.38 QTc 0.42 See Clinical Report link for waveform capture us Unknown Provider POINT OF CARE CARDIOLOGY Final Result Performing Organization Address City/[facility]/ZIP Co de Phone Number [facility] 1 [place] [address] * (ABNORMAL) CBC (12/06/2024 5:28 [...] 12/06/2024 6:35 AM EDT [facility] MCV 90.8 80.0 - 100.0 fL 12/06/2024 6:35 AM EDT [facility] MCH 30.7 26.0 - 34.0 pg 12/06/2024 6:35 AM EDT [facility] MCHC 33.9 30.7 - 35.5 g/dL 12/06/2024 6:35 AM EDT [facility] RDW 14.4 <=14.9 % 12/06/2024 6:35 AM EDT [facility] Platelet 217 155 - 369 x10(3)/mcL 12/06/2024 6:35 AM EDT [facility] MPV 9.7 8.8 - 12.5 fL 12/06/2024 6:35 AM EDT [facility] Blood VENOUS BLOOD / Unknown Venipuncture / Unknown 12/06/2024 5:28 AM EDT 12/06/2024 6:23 AM EDT Sadi Haney MD HEMATOLOGY ORDERABLES Fin al Result [facility], [address], [place] [address] * ECG AND WAVEFORMS - TELEMETRY (12/05/2024 7:00 PM EDT) ECG INTERPRET Sinus Tachycardia [facility] 12/05/2024 7:00 PM EDT Narrative [facility] - 12/05/2024 9:36 PM EDT ROUTNE UT 0.13 QRS 0.12 RR 0.55 QT 0.34 QTc 0.46 See Clinical Report link for waveform capture us Unknown Provider POINT OF CARE CARDIOLOGY Final Result [facility] [address] [place] [address] * (ABNORMAL) HEMOGLOBIN AND HEMATOCRIT (12/05/2024 12:22 PM EDT) [facility] Hgb 9.4(L) 13.7 - 17.5 g/dL 12/05/2024 1:04 PM EDT [facility] Hct 27.8(L) 40.0 - 51.0 % 12/05/2024 1:04 PM EDT [facility] Blood VENOUS BLOOD / Unknown Venipuncture / Unknown 12/05/2024 12:22 PM EDT 12/05/2024 12:27 PM EDT us Juana Shoemaker MD HEMATOLOGY ORDERABLES Final R esult Performing Organization Address City/[facility]/ZIP Co de Phone Number [facility], [facility] [address] [facility], [place] [address] * ECG AND WAVEFORMS - TELEMETRY (12/05/2024 8:03 AM EDT) [facility] ECG INTERPRET NSR [facility] 12/05/2024 8:03 AM EDT Narrative [facility] - 12/05/2024 9:13 AM EDT UT 0.14 QRS 0.08 RR 0.72 QT 0.36 QTc 0.42 See Clinical Report link for waveform capture us Unknown Provider POINT OF CARE CARDIOLOGY Final Result Performing Organization Address City/[facility]/ZIP Co de Phone Number [facility] [address] [place] [address] * (ABNORMAL) CBC (12/05/2024 5:55 AM EDT) [facility] WBC 8.0 3.7 - 10.3 x10(3)/mcL 12/05/2024 7:34 AM EDT [facility] RBC 2.79(L) 4.60 - 6.10 x10(6)/mcL 12/05/2024 7:34 AM EDT [facility] Hgb 8.4(L) 13.7 - 17.5 g/dL 12/05/2024 7:34 AM EDT [facility] Hct 25.3(L) 40.0 - 51.0 % 12/05/2024 [...] 7:34 AM EDT [facility] Platelet 187 155 - 369 x10(3)/mcL 12/05/2024 7:34 AM EDT [facility] MPV 9.9 8.8 - 12.5 fL 12/05/2024 7:34 AM EDT [facility] Blood VENOUS BLOOD / Unknown Venipuncture / Unknown 12/05/2024 5:55 AM EDT 12/05/2024 7:05 AM EDT Sadi Haney MD HEMATOLOGY ORDERABLES Fin al Result [facility], [address] , [place] [address] * (ABNORMAL) HEMOGLOBIN AND HEMATOCRIT (12/04/2024 7:12 PM EDT) [facility] Hgb 8.9(L) 13.7 - 17.5 g/dL 12/04/2024 7:32 PM EDT [facility] Hct 26.5(L) 40.0 - 51.0 % 12/04/2024 7:32 PM EDT [facility] Blood VENOUS BLOOD / Unknown Venipuncture / Unknown 12/04/2024 7:12 PM EDT 12/04/2024 7:25 PM EDT Sadi Haney MD HEMATOLOGY ORDERABLES Fin al Result [facility] [address] [facility] , [place] [address] * ECG AND WAVEFORMS - TELEMETRY (12/04/2024 7:00 PM EDT) [facility] ECG INTERPRET NSR [facility] 12/04/2024 7:00 PM EDT Narrative [facility] - 12/05/2024 1:26 AM EDT ROUTINE(CW) UT 0.14 QRS 0.07 RR 0.77 QT 0.38 QTc 0.43 See Clinical Report link for waveform capture us Unknown Provider POINT OF CARE CARDIOLOGY Final Result [facility] [address] [place] [id number] * TRANSFUSE RED BLOOD CELLS (12/04/2024 3:25 PM EDT) us [employer] [place] MASTER PLANNER NURSING TREATMENT ORDERABLES - BLOOD ADMIN Edited Result - Final * TRANSFUSE RED BLOOD CELLS (12/04/2024 3:25 PM EDT) us [employer] [place] MASTER PLANNER NURSING TREATMENT ORDERABLES - BLOOD ADMIN Edited Result - Final * (ABNORMAL) HEMOGLOBIN AND HEMATOCRIT (12/04/2024 12:54 PM EDT) [facility] Hgb 8.2(L) 13.7 - 17.5 g/dL 12/04/2024 1:13 PM EDT [facility] [employer] Hct 24.7(L) 40.0 - 51.0 % 12/04/2024 1:13 PM EDT [facility] [employer] Blood VENOUS BLOOD / Unknown Venipuncture / Unknown 12/04/2024 12:54 PM EDT 12/04/2024 1:06 PM EDT us Peace A [place] MASTER PLANNER HEMATOLOGY ORDERABLES Fin al Result [facility] [employer] [address] [facility] , [place] [address] * ECG AND WAVEFORMS - TELEMETRY (12/04/2024 7:56 AM EDT) ECG INTERPRET NSR [facility] 12/04/2024 7:56 AM EDT Narrative [facility] - 12/04/2024 11:08 PM EDT ROUTINE//AC UT 0.14 QRS 0.11 RR 0.76 QT 0.39 QTc 0.45 See Clinical Report link for waveform capture us Unknown Provider POINT OF CARE CARDIOLOGY Final Result Performing Organization Address City/[facility]/ZIP Co de Phone Number [facility] 1 [place] [address] * ECG AND WAVEFORMS - TELEMETRY (12/04/2024 7:56 AM EDT) [facility] ECG INTERPRET NSR [facility] 12/04/2024 7:56 AM EDT Narrative [facility] - 12/04/2024 8:01 AM EDT ROUTINE//AC UT 0.14 QRS 0.11 RR 0.76 QT 0.39 QTc 0.45 See Clinical Report link for waveform capture us Unknown Provider POINT OF CARE CARDIOLOGY Final Result Performing Organization Address [facility] Co de Phone Number [facility] [address] [place] [address] * (ABNORMAL) IRON+TIBC (12/04/2024 5:52 AM EDT) Pathologist [facility] Iron 27(L) 50 - 170 mcg/dL 12/05/2024 [...] ORDERABLES Final Re sult [facility] [address] [facility] [address], [place] [address] * (ABNORMAL) BASIC METABOLIC PANEL (12/04/2024 5:52 [...] - 1.30 mg/dL 12/04/2024 6:38 AM EDT [facility] eGFR (CKD-EPIcr 2020) 85 >=60 mL/min/1.7 3 m2 12/04/2024 6:38 AM EDT [facility] Comment:Estimated GFR was ca lculated using the CKD-EPIcr (2020) equation refit without race. The equation is recommended by the National Kidney Foundation - [place] Society of Nephrology Task Force. Blood VENOUS BLOOD / Unknown Venipuncture / Unknown 12/04/2024 5:52 AM EDT 12/04/2024 6:01 AM EDT Sadi Haney MD CHEMISTRY ORDERABLES Nadiya l Result [facility] [address] [facility] , [place] [address] * (ABNORMAL) CBC WITH DIFF (12/04/2024 5:52 [...] 6:13 AM EDT [facility] [place] Percent 10.4 % 12/04/2024 6:13 AM EDT [facility] Eos Percent 2.6 % 12/04/2024 6:13 AM EDT [facility] Baso Percent 0.3 % 12/04/2024 6:13 AM EDT [facility] Neut # 4.1 1.6 - 6.1 x10(3)/[facility] 12/04/2024 6:13 AM EDT [facility] Comment:Neutrophils equals s egs plus bands IMMGRAN# 0.0 0.0 - 0.1 x10(3)/[facility] 12/04/2024 6:13 AM EDT [facility] Comment:Automated count of m etamyelocytes, myelocytes and promyelocytes. An absolute IG <0.1 is reported as 0.0. Lymph # 1.5 1.2 - 3.9 x10(3)/[facility] 12/04/2024 6:13 AM EDT [facility] [place] # 0.7 0.3 - 0.9 x10(3)/[facility] 12/04/2024 6:13 AM EDT [facility] Eos# 0.2 0.0 - 0.5 x10(3)/[facility] 12/04/2024 6:13 AM EDT [facility] Baso # 0.0 0.0 - 0.1 x10(3)/[facility] 12/04/2024 6:13 AM EDT [facility] Blood VENOUS BLOOD / Unknown Venipuncture / Unknown 12/04/2024 5:52 AM EDT 12/04/2024 6:01 AM EDT us Sadi Haney MD HEMATOLOGY ORDERABLES Fin al Result [facility] [address] [facility] , [place] [address] * ECG AND WAVEFORMS - TELEMETRY (12/03/2024 7:00 PM EDT) ECG INTERPRET NSR [facility] 12/03/2024 7:00 PM EDT Narrative [facility] - 12/03/2024 8:34 PM EDT ROUTINE(CW) UT 0.15 QRS 0.06 RR 0.60 QT 0.27 QTc 0.35 See Clinical Report link for waveform capture us Unknown Provider POINT OF CARE CARDIOLOGY Final Result Performing Organization Address [facility] Co de Phone Number [facility] 1 [place] [address] * (ABNORMAL) HEMOGLOBIN AND HEMATOCRIT (12/03/2024 10:44 AM EDT) Hgb 7.9(L) 13.7 - 17.5 g/dL 12/03/2024 11:50 AM EDT [facility] [employer] Hct 23.7(L) 40.0 - 51.0 % 12/03/2024 11:50 AM EDT [facility] Blood VENOUS BLOOD / Unknown Venipuncture / Unknown 12/03/2024 10:44 AM EDT 12/03/2024 10:54 AM EDT us Meng Chen MD HEMATOLOGY ORDERABLES Final Res ult Performing Organization Address [facility] Co de Phone Number [facility] [address] [facility], [place] [address] * ECG AND WAVEFORMS - TELEMETRY (12/03/2024 7:00 AM EDT) [facility] ECG INTERPRET NSR [facility] 12/03/2024 7:00 AM EDT Narrative [facility] - 12/03/2024 7:58 AM EDT [place] ROUTINE UT 0.14 QRS 0.09 RR 0.66 QT 0.35 See Clinical Report link for waveform capture us Unknown Provider POINT OF CARE CARDIOLOGY Final Result Performing Organization Address [facility] Co de Phone Number [facility] [address] [place] [phone] * (ABNORMAL) HEMOGLOBIN AND HEMATOCRIT (12/03/2024 4:48 AM EDT) Hgb 8.0(L) 13.7 - 17.5 g/dL 12/03/2024 5:08 AM EDT [facility] Hct 24.4(L) 40.0 - 51.0 % 12/03/2024 5:08 AM EDT [facility] [employer] Blood VENOUS BLOOD / Unknown Venipuncture / Unknown 12/03/2024 4:48 AM EDT 12/03/2024 4:58 AM EDT Meng Chen MD HEMATOLOGY ORDERABLES Final Res ult Performing Organization Address [facility] Co de Phone Number [facility] [employer] [address] [facility], [place] [address] * TRANSFUSE RED BLOOD CELLS (12/03/2024 4:00 AM EDT) Sadi Haney MD NURSING TREATMENT ORDERAB LES - BLOOD ADMIN Final Result * TRANSFUSE RED BLOOD CELLS (12/03/2024 4:00 AM EDT) Sadi Haney MD NURSING TREATMENT ORDERAB LES - BLOOD ADMIN Final Result * (ABNORMAL) TROPONIN-T HIGH SENSITIVITY 6 HR (12/03/2024 3:40 AM EDT) [facility] [id number] 6HR 37(H) <22 ng/L 12/03/2024 4:43 AM EDT [facility] [employer] [facility] hs-cTnT 6Hr Delta from Baseline 11 <12 ng/L 12/03/2024 4:43 AM EDT [facility] Blood VENOUS BLOOD / Unknown Venipuncture / Unknown 12/03/2024 3:40 AM EDT 12/03/2024 4:11 AM EDT Narrative [facility] - 12/03/2024 4:43 AM EDT Ingestion of josé miguel doses of biotin (>5 mg/day) taken within 8 hours of drawing blood sample can interfere with this immunoassay test. Rachna Wood MASTER PLANNER CHEMISTRY ORDERABLES Fin al Result Performing Organization Address City/[facility]/ZIP Co de Phone Number [facility] [address], [address] [place] [phone] * (ABNORMAL) BASIC METABOLIC PANEL (12/03/2024 3:40 AM EDT) Sodium 142 136 - 145 mmol/L 12/03/2024 4:42 AM EDT [facility] Potassium 4.2 3.5 - 5.0 mmol/L 12/03/2024 4:42 AM EDT [facility] Chloride 111(H) 98 - 107 mmol/L 12/03/2024 4:42 AM EDT [facility] Total CO2 21(L) 22 - 29 mmol/L [...] recommended by the National Kidney Foundation - [place] Society of Nephrology Task Force. Blood VENOUS BLOOD / Unknown Venipuncture / Unknown 12/03/2024 3:40 AM EDT 12/03/2024 4:11 AM EDT Sadi Haney MD CHEMISTRY ORDERABLES Nadiya nichols Result [facility] [address], [address] [place] [id number] * (ABNORMAL) CBC WITH DIFF (12/03/2024 3:40 [...] 4:22 AM EDT [facility] [place] Percent 11.5 % 12/03/2024 4:22 AM EDT [facility] Eos Percent 0.6 % 12/03/2024 4:22 AM EDT [facility] Baso Percent 0.2 % 12/03/2024 4:22 AM EDT [facility] Neut # 6.7(H) 1.6 - 6.1 x10(3)/[facility] 12/03/2024 4:22 AM EDT [facility] Comment:Neutrophils equals s egs plus bands IMMGRAN# 0.0 0.0 - 0.1 x10(3)/[facility] 12/03/2024 4:22 AM EDT [facility] Comment:Automated count of m etamyelocytes, myelocytes and promyelocytes. An absolute IG <0.1 is reported as 0.0. Lymph # 1.6 1.2 - 3.9 x10(3)/[facility] 12/03/2024 4:22 AM EDT [facility] [place] # 1.1(H) 0.3 - 0.9 x10(3)/[facility] 12/03/2024 4:22 AM EDT [facility] Eos# 0.1 0.0 - 0.5 x10(3)/[facility] 12/03/2024 4:22 AM EDT [facility], [facility] Baso # 0.0 0.0 - 0.1 x10(3)/[facility] 12/03/2024 4:22 AM EDT [facility] Blood VENOUS BLOOD / Unknown Venipuncture / Unknown 12/03/2024 3:40 AM EDT 12/03/2024 4:11 AM EDT us Sadi Haney MD HEMATOLOGY ORDERABLES Fin al Result [facility] [address] [facility] , [place] [id number] * TRANSFUSE RED BLOOD CELLS (12/03/2024 1:03 AM EDT) us Sadi Haney MD NURSING TREATMENT ORDERAB LES - BLOOD ADMIN Final Result * TRANSFUSE RED BLOOD CELLS (12/03/2024 1:03 AM EDT) us Sadi Haney MD NURSING TREATMENT ORDERAB LES - BLOOD ADMIN Final Result * (ABNORMAL) TROPONIN-T HIGH SENSITIVITY 2HR (12/02/2024 10:14 PM EDT) zh-nSxdhxorq-A 2HR 33(H) <22 ng/L 12/02/2024 11:02 PM EDT [facility] [employer] [facility] hs-cTnT 2Hr Delta from Baseline 7(H) <4 ng/L 12/02/2024 11:02 PM EDT [facility] [employer] [facility] Blood VENOUS BLOOD / Unknown Venipuncture / Unknown 12/02/2024 10:14 PM EDT 12/02/2024 10:33 PM EDT Narrative [facility] [employer] [facility] - 12/02/2024 11:02 PM EDT Ingestion of josé miguel doses of biotin (>5 mg/day) taken within 8 hours of drawing blood sample can interfere with this immunoassay test. us Rachna Wood MASTER PLANNER CHEMISTRY ORDERABLES Fin al Result [facility] [employer] [facility] [address] [facility] , [address] [place] [id number] * CT ABDOMEN PELVIS W CONTRAST (12/02/2024 [...] lymphadenopathy or acute osseous abnormality. Procedure Note Bordy Jeronimo MD - 12/02/2024 CT ABDOMEN AND [...] Small to moderate amount ofretroperitoneal fluid/hemorrhage noted. us Sadi Haney MD IMG CT ORDERABLES Final R esult * (ABNORMAL) TROPONIN-T HIGH SENSITIVITY BASELINE W/ REFLEX (12/02/2024 7:34 PM EDT) am-wXcjlquew-O 26(H) <22 ng/L 12/02/2024 8:05 PM EDT [facility] Blood VENOUS BLOOD / Unknown Venipuncture / Unknown 12/02/2024 7:34 PM EDT 12/02/2024 7:37 PM EDT Narrative [facility] - 12/02/2024 8:05 PM EDT Ingestion of josé miguel doses of biotin (>5 mg/day) taken within 8 hours of drawing blood sample can interfere with this immunoassay test. Rachna Wood MASTER PLANNER CHEMISTRY ORDERABLES Fin al Result [facility] [address] [place] [address] , [place] [address] * EK EKG 12 LEAD (12/02/2024 7:13 PM EDT) Anatomical Region Laterality Modality Electrocardiogra phy 12/02/2024 7:21 PM EDT Impressions 12/03/2024 11:[address] 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: As : 1975 Requested By: RACHNA Gutierrez Order Number: [id number] Britt MD: Edelmira Ramsey DO Measurements Intervals [place] Rate: 123 P: 131 UT: 167 QRS: 1 QRSD: 90 T: 72 QT: 319 QTc: 457 Interpretive Statements SINUS TACHYCARDIA NONSPECIFIC ST & T-WAVE ABNORMALITY ABNORMAL RHYTHM ECG Electronically Signed On 12-03-2024 11:25:42 EDT by Edelmira Ramsey DO Narrative Procedure Note Edelmira Ramsey DO - 12/03/2024 IMPRESSION [facility] Test Date: 2024-12-02 Pat Name: ALEX HOFFMAN Department: DEPID Room: 7308 Gender: Male Oil Laboratory Analyst: As : 1975 Requested By: RACHNA Gutierrez Order Number: [id number] Reading MD: Edelmira Ramsey DO Measurements Intervals [place] Rate: 123 P: 131 UT: 167 QRS: 1 QRSD: 90 T: 72 QT: 319 QTc: 457 Interpretive Statements SINUS TACHYCARDIA NONSPECIFIC ST & T-WAVE ABNORMALITY ABNORMAL RHYTHM ECG Electronically Signed On 12-03-2024 11:25:42 EDT by Edelmira Ramsey DO us Rachna Wood MASTER PLANNER IMG ECG ORDERABLES Final Result * ECG AND WAVEFORMS - TELEMETRY (12/02/2024 7:00 PM EDT) Pathologist [facility] ECG INTERPRET Sinus Tachycardia [facility] 12/02/2024 7:00 PM EDT Narrative [facility] - 12/02/2024 7:47 PM EDT ROUTINE(CW) UT 0.10 QRS 0.05 RR 0.40 QT 0.27 QTc 0.43 See Clinical Report link for waveform capture us Unknown Provider POINT OF CARE CARDIOLOGY Final Result Performing Organization Address City/[facility] Phone Number [facility] [address] [place] [phone] * (ABNORMAL) HEMOGLOBIN AND HEMATOCRIT (12/02/2024 6:17 PM EDT) Hgb 7.5(L) 13.7 - 17.5 g/dL 12/02/2024 6:54 PM EDT [facility] [employer] Hct 22.9(L) 40.0 - 51.0 % 12/02/2024 6:54 PM EDT [facility] Blood VENOUS BLOOD / Unknown Venipuncture / Unknown 12/02/2024 6:17 PM EDT 12/02/2024 6:25 PM EDT us Meng Chen MD HEMATOLOGY ORDERABLES Final Res ult Performing Organization Address City/[facility] Co de Phone Number [facility] [address] [facility] , [place] [address] * REPEAT LACTIC ACID (12/02/2024 6:17 PM EDT) Lactic Acid 1.6 0.5 - 1.9 mmol/L 12/02/2024 6:44 PM EDT [facility] [employer] [facility] Blood VENOUS BLOOD / Unknown Venipuncture / Unknown 12/02/2024 6:17 PM EDT 12/02/2024 6:25 PM EDT Meng Chen MD CHEMISTRY ORDERABLES Final Resu lt Performing Organization Address [facility] de Phone Number [facility] [address] [facility] , [place] [address] * (ABNORMAL) REPEAT LACTIC ACID (12/02/2024 3:49 PM EDT) Lactic Acid 2.9(H) 0.5 - 1.9 mmol/L 12/02/2024 4:29 PM EDT [facility] [employer] [facility] Blood VENOUS BLOOD / Unknown Venipuncture / Unknown 12/02/2024 3:49 PM EDT 12/02/2024 3:55 PM EDT us Meng Chen MD CHEMISTRY ORDERABLES Final Resu lt Performing Organization Address [facility] Co de Phone Number [facility] [employer] [facility] [address] [facility] , [place] [address] * ECG AND WAVEFORMS - TELEMETRY (12/02/2024 3:11 PM EDT) ECG INTERPRET Sinus Tachycardia [facility] Comment: notified 12/02/2024 3:11 PM EDT Narrative [facility] - 12/02/2024 3:13 PM EDT [place] ROUTINE See Clinical Report link for waveform capture us Unknown Provider POINT OF CARE CARDIOLOGY Final Result Performing Organization Address [facility] Co de Phone Number [facility] [address] [place] [address] * (ABNORMAL) LACTIC ACID (12/02/2024 1:42 PM EDT) Pathologist [facility] Lactic Acid 3.2(H) 0.5 - 1.9 mmol/L 12/02/2024 2:16 PM EDT [facility] Blood VENOUS BLOOD / Unknown Venipuncture / Unknown 12/02/2024 1:42 PM EDT 12/02/2024 1:52 PM EDT us Meng Chen MD CHEMISTRY ORDERABLES Final Resu lt Performing Organization Address [facility] Co de Phone Number [facility] [employer] [facility] [address] [facility] , [place] [address] * BLOOD CULTURE (NO STAIN) (12/02/2024 1:42 PM EDT) Pathologist [facility] Culture Result No Growth at 120 hours. BLOOD CULTURE (NO STAIN) 12/07/2024 3:00 PM EDT [facility] Blood VENOUS BLOOD / Unknown Venipuncture / Unknown 12/02/2024 1:42 PM EDT 12/02/2024 1:53 PM EDT us Meng Chen MD MICROBIOLOGY - GENERAL ORDERABL ES Final Result Performing Organization Address [facility] Co de Phone Number [facility] [address] [facility] , [place] [address] * ECG AND WAVEFORMS - TELEMETRY (12/02/2024 12:27 PM EDT) Pathologist [facility] ECG INTERPRET Sinus Tachycardia [facility] Comment:aysmptomatic on asse ssment 12/02/2024 12:2 7 PM EDT Narrative [facility] - 12/02/2024 12:50 PM EDT [place] ROUTINE UT 0.13 QRS 0.10 RR 0.50 QT 0.32 See Clinical Report link for waveform capture us Unknown Provider POINT OF CARE CARDIOLOGY Final Result Performing Organization Address [facility] Co de Phone Number [facility] [address] [place] [address] * (ABNORMAL) REPEAT LACTIC ACID (12/02/2024 10:59 AM EDT) Lactic Acid 2.8(H) 0.5 - 1.9 mmol/L 12/02/2024 11:16 AM EDT [facility] Blood VENOUS BLOOD / Unknown Venipuncture / Unknown 12/02/2024 10:59 AM EDT 12/02/2024 10:59 AM EDT Sundar Kessler MASTER PLANNER CHEMISTRY ORDERABLES Final Result Performing Organization Address [facility] de Phone Number [facility] [address] [place] [phone] * URINE CULTURE (NO STAIN) (12/02/2024 10:53 AM EDT) Culture No growth at 30 hours. 12/04/2024 6:38 AM EDT [facility] Urine URINARY BLADDER STRUCTURE / Unknown 12/02/2024 10:53 AM EDT 12/02/2024 11:12 AM EDT us Sundar Kessler APRN MICROBIOLOGY - GENER AL ORDERABLES Final Result Performing Organization Address [facility] Co de Phone Number [facility] [address] [place] [address] , [place] [address] * EXTRA SWENSON URINE CX (12/02/2024 10:53 AM EDT) Urine URINE SPECIMEN OBTAINED VIA INDWELLING URINARY CATHETER / Unknown 12/02/2024 10:53 AM EDT 12/02/2024 10:59 AM EDT us Sundar Kessler APRN MICROBIOLOGY - GENER AL ORDERABLES Final Result Performing Organization Address [facility]/ZIP Co de Phone Number [facility] [address] [place] [address] * (ABNORMAL) URINALYSIS REFLEX (12/02/2024 10:53 [...] 12/02/2024 11:12 AM EDT [facility] UA pH 6.0 5.0 - 8.0 pH [...] 12/02/2024 11:12 AM EDT [facility] Urine URINARY BLADDER STRUCTURE / Unknown 12/02/2024 10:53 AM EDT 12/02/2024 10:59 AM EDT Sundar Kessler MASTER PLANNER URINE ORDERABLES Fin al Result Performing Organization Address [facility]/ZIP Co de Phone Number [facility] [employer] [address] , [place] [address] * BLOOD CULTURE (NO STAIN) (12/02/2024 10:51 AM EDT) Culture Result No Growth at 120 hours. BLOOD CULTURE (NO STAIN) 12/07/2024 1:00 PM EDT [facility] Blood VENOUS BLOOD / Unknown Venipuncture / Unknown 12/02/2024 10:51 AM EDT 12/02/2024 10:51 AM EDT Meng Chen MD MICROBIOLOGY - GENERAL ORDERABL ES Final Result Performing Organization Address [facility] Co de Phone Number [facility] [employer] [address] , [place] [address] * XR CHEST AP PORTABLE (12/02/2024 9:55 [...] - 17.5 g/dL 12/02/2024 10:12 AM EDT [facility] Hct 24.7(L) 40.0 - 51.0 % 12/02/2024 10:12 AM EDT [facility] Blood VENOUS BLOOD / Unknown Venipuncture / Unknown 12/02/2024 9:22 AM EDT 12/02/2024 9:48 AM EDT Peace Rea MASTER PLANNER HEMATOLOGY ORDERABLES Fin al Result [facility] [address] [facility] , [place] [address] * (ABNORMAL) REPEAT LACTIC ACID (12/02/2024 9:22 AM EDT) Lactic Acid 2.3(H) 0.5 - 1.9 mmol/L 12/02/2024 10:00 AM EDT [facility] Blood VENOUS BLOOD / Unknown Venipuncture / Unknown 12/02/2024 9:22 AM EDT 12/02/2024 9:46 AM EDT Sundar Kessler MASTER PLANNER CHEMISTRY ORDERABLES Final Result Performing Organization Address [facility]/[place] [address] * (ABNORMAL) TROPONIN-T HIGH SENSITIVITY 2HR (12/02/2024 9:22 AM EDT) fz-bLoonmick-Z 2HR 26(H) <22 ng/L 12/02/2024 10:04 AM EDT [facility] hs-cTnT 2Hr Delta from Baseline -1 <4 ng/L 12/02/2024 10:04 AM EDT [facility] Blood VENOUS BLOOD / Unknown Venipuncture / Unknown 12/02/2024 9:22 AM EDT 12/02/2024 9:46 AM EDT Narrative [facility] - 12/02/2024 10:04 AM EDT Ingestion of josé miguel doses of biotin (>5 mg/day) taken within 8 hours of drawing blood sample can interfere with this immunoassay test. Sundar Kessler MASTER PLANNER CHEMISTRY ORDERABLES Final Result Performing Organization Address [facility] Co de Phone Number [facility] [address] [place], [place] [phone] * (ABNORMAL) TROPONIN-T HIGH SENSITIVITY BASELINE W/ REFLEX (12/02/2024 7:08 AM EDT) ms-qMkpsurgf-B 27(H) <22 ng/L 12/02/2024 7:42 AM EDT [facility] [employer] Blood VENOUS BLOOD / Unknown Venipuncture / Unknown 12/02/2024 7:08 AM EDT 12/02/2024 7:14 AM EDT Narrative [facility] [employer] - 12/02/2024 7:42 AM EDT Ingestion of josé miguel doses of biotin (>5 mg/day) taken within 8 hours of drawing blood sample can interfere with this immunoassay test. Sundar Kessler APRN CHEMISTRY ORDERABLES Final Result Performing Organization Address [facility] Co de Phone Number [facility] [employer] [address] , [place] [address] * (ABNORMAL) REPEAT LACTIC ACID (12/02/2024 7:08 AM EDT) Lactic Acid 3.1(H) 0.5 - 1.9 mmol/L 12/02/2024 7:35 AM EDT [facility] Blood VENOUS BLOOD / Unknown Venipuncture / Unknown 12/02/2024 7:08 AM EDT 12/02/2024 7:15 AM EDT Sundar Kessler APRN CHEMISTRY ORDERABLES Final Result Performing Organization Address [facility] de Phone Number [facility] [employer] [address] , [place] [address] * EK EKG 12 LEAD (12/02/2024 7:01 AM EDT) Anatomical Region Laterality Modality Electrocardiogra phy 12/02/2024 7:17 AM EDT Impressions 12/02/2024 1:57 PM EDT [facility] Test Date: 2024-12-02 Pat Name: ALEX HOFFMAN Department: DEPID Room: 7308 Gender: Male Oil Laboratory Analyst: Murray : 1975 Requested By: SUNDAR LAWRENCE Order Number: [id number] Reading MD: Forrest Johnston MD Measurements Intervals [place] Rate: 92 P: 46 UT: 132 QRS: 13 QRSD: 85 T: 33 QT: 367 QTc: 454 Interpretive Statements SINUS RHYTHM Electronically Signed On 12-02-2024 13:57:21 EDT by Forrest Johnston MD Narrative Procedure Note Forrest Johnston MD - 12/02/[address] Test Date: 2024-12-02 Pat Name: ALEX HOFFMAN Department: DEPID Room: 7308 Gender: Male Oil Laboratory Analyst: Murray : 1975 Requested By: SUNDAR MORENO Order Number: [id number] Reading MD: Forrest Johnston MD Measurements Intervals [place] Rate: 92 P: 46 UT: 132 QRS: 13 QRSD: 85 T: 33 QT: 367 QTc: 454 Interpretive Statements SINUS RHYTHM Electronically Signed On 12-02-2024 13:57:21 EDT by Forrest Johnston MD Sundar Kessler MASTER PLANNER IMG ECG ORDERABLES F inal Result * (ABNORMAL) PROCALCITONIN (12/02/2024 5:05 AM EDT) Procalcitonin 0.62(H) <=0.49 ng/mL 12/02/2024 5:52 AM EDT [facility] Blood VENOUS BLOOD / Unknown Venipuncture / Unknown 12/02/2024 5:05 AM EDT 12/02/2024 5:11 AM EDT Narrative [facility] - 12/02/2024 5:52 AM EDT Procalcitonin <0.50 [...] progression to severe sepsis and/or septic shock. Sundar Kessler APRN CHEMISTRY ORDERABLES Final Result Performing Organization Address [facility] Co de Phone Number [facility] [address] [facility] , [place] [address] * (ABNORMAL) LACTIC ACID (12/02/2024 5:04 AM EDT) Lactic Acid 3.5(H) 0.5 - 1.9 mmol/L 12/02/2024 5:31 AM EDT [facility] Blood VENOUS BLOOD / Unknown Venipuncture / Unknown 12/02/2024 5:04 AM EDT 12/02/2024 5:11 AM EDT Sundar Kessler APRN CHEMISTRY ORDERABLES Final Result Performing Organization Address [facility] de Phone Number [facility] [address] [facility] , [place] [address] * CREATININE BODY FLUID (12/02/2024 4:12 AM EDT) Creatinine BF 1.15 0.67 - 1.30 mg/dL 12/02/2024 5:03 AM EDT [facility] Body Fluid ABDOMEN / Unknown Collection / Unknown 12/02/2024 4:12 AM EDT 12/02/2024 4:29 AM EDT Narrative [facility] - 12/02/2024 5:03 AM EDT A reference interval for this test has not been established for body fluid specimens. The reference range listed reflects normal concentration of this analyte in blood. Sadi Haney MD BODY FLUIDS AND STOOLS OR DERABLES Final Result Performing Organization Address [facility] Co de Phone Number [facility] [address] [facility] , [place] [address] * (ABNORMAL) CBC WITH DIFF (12/02/2024 3:47 AM EDT) [facility] WBC 21.8(H) 3.7 - 10.3 x10(3)/mc L [...] 4:21 AM EDT [facility] [place] Percent 10.4 % 12/02/2024 4:21 AM EDT [facility] Eos Percent 0.1 % 12/02/2024 4:21 AM EDT [facility] Baso Percent 0.1 % 12/02/2024 4:21 AM EDT [facility] Neut # 17.9(H) 1.6 - 6.1 x10(3)/mc L 12/02/2024 4:21 AM EDT [facility] Comment:Neutrophils equals s egs plus bands IMMGRAN# 0.2(H) 0.0 - 0.1 x10(3)/mc L 12/02/2024 4:21 AM EDT [facility] Comment:Automated count of m etamyelocytes, myelocytes and promyelocytes. An absolute IG <0.1 is reported as 0.0. Lymph # 1.4 1.2 - 3.9 x10(3)/mc L 12/02/2024 4:21 AM EDT [facility] [place] # 2.3(H) 0.3 - 0.9 x10(3)/mc L 12/02/2024 4:21 AM EDT [facility] Eos# 0.0 0.0 - 0.5 x10(3)/mc L 12/02/2024 4:21 AM EDT [facility] Baso # 0.0 0.0 - 0.1 x10(3)/mc L 12/02/2024 4:21 AM EDT [facility] RBC Morph Consistent with Red Cell Indices no units 12/02/2024 4:21 AM EDT [facility] Blood VENOUS BLOOD / Unknown Venipuncture / Unknown 12/02/2024 3:47 AM EDT 12/02/2024 3:50 AM EDT Sadi Haney MD HEMATOLOGY ORDERABLES Fin al Result [facility] [address] [facility] , [address] [place] [id number] * (ABNORMAL) BASIC METABOLIC PANEL (12/02/2024 3:46 AM EDT) Sodium 136 136 - 145 mmol/L 12/02/2024 4:07 AM EDT [facility] Potassium 4.8 3.5 - 5.0 mmol/L 12/02/2024 4:07 AM EDT [facility] Chloride 103 98 - 107 mmol/L 12/02/2024 4:07 AM EDT [facility] Total CO2 17(L) 22 - 29 mmol/L 12/02/2024 4:07 AM EDT [facility] Anion Gap 16 7 - 16 mmol/L 12/02/2024 4:07 AM EDT [facility] Calcium 8.0(L) 8.6 - 10.4 mg/dL 12/02/2024 4:07 AM EDT [facility] Glucose Lvl 156(H) 70 - 99 mg/dL 12/02/2024 4:07 AM EDT [facility] BUN 21(H) 6 - 20 mg/dL 12/02/2024 4:07 AM EDT [facility] Creatinine 1.61(H) 0.67 - 1.30 mg/dL 12/02/2024 4:07 AM EDT [facility] eGFR (CKD-EPIcr 2020) 52(L) >=60 mL/min/1.7 3 m2 12/02/2024 4:07 AM EDT [facility] Comment:Estimated GFR was ca lculated using the CKD-EPIcr (2020) equation refit without race. The equation is recommended by the National Kidney [employer] - [place] of Nephrology Task Force. Blood VENOUS BLOOD / Unknown Venipuncture / Unknown 12/02/2024 3:46 AM EDT 12/02/2024 3:50 AM EDT Peace Rea APRN CHEMISTRY ORDERABLES Nadiya l Result [facility] [address] [place] [id number] * (ABNORMAL) GLUCOSE METER POC (12/02/2024 2:58 AM EDT) [facility] Glucose Meter POC 148(H) 70 - 100 mg/dL 12/02/2024 3:00 AM EDT [facility] Sample Type Capillary 12/02/2024 3:00 AM EDT [facility] Patient Status Non-Critical Patient 12/02/2024 3:00 AM EDT [facility] Blood BLOOD SPECIMEN / Unknown 12/02/2024 2:58 AM EDT 12/02/2024 3:00 AM EDT Sadi Haney MD POINT OF CARE TEST ORDERA BLES Final Result [facility] [address] [place] [id number] * PATHOLOGY TISSUE REQUEST (12/01/2024 3:36 PM EDT) CASE REPORT Surgical Pathology Case: [id number] Authorizing Provider: Sadi Haney MD Collected: 12/01/2024 1536 Ordering Location: [facility] Received: 12/01/2024 1631 Pathologist: Gayle Bahena MD Specimen: Kidney, Left, Left kidney and ureter,along with bladder cuff 12/05/2024 4:20 PM EDT [facility] FINAL DIAGNOSIS Kidney and ureter, left radical nephroureterectomy with bladder cuff: - Ureter: - Noninvasive low-grade papillary urothelial carcinoma, 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 - Resection margins negative for carcinoma - Kidney and bladder cuff with chronic inflammation, negative for carcinoma. - Adrenal gland negative for carcinoma. - See synoptic report for details. 12/05/2024 4:20 PM EDT [facility] at 1620 EDT GROSS DESCRIPTION A. [...] 0.5 to 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 Management Psychologist sections are submitted as follows: A1-A3 = entire mass at UPJ to include adjacent uninvolved proximal ureter A4 = remaining proximal ureter A5-A6 = administrative representative dilated calyces A7-A8 equal all distal ureter with perpendicular bladder margin A9 = vascular margins from kidney A10 = all areas suggestive of adrenal parenchyma A11 = 1 bisected lymph node candidate A12 = 1 trisected lymph node candidate A13-A14 = largest lymph node candidate, trisected RIK Stover PA (ASCP) 12/05/2024 4:20 PM EDT [facility] MICROSCOPIC DESCRIPTION The microscopic examination may have been rendered in whole, or in part, by analyzing high-resolution digital images (whole slide images) on the [employer] Digital Pathology platform validated at [facility]. 12/05/2024 4:20 PM EDT [facility] BEST TISSUE BLOCK FOR ANCILLARY STUDIES A3 12/05/2024 4:20 PM T [facility] SYNOPTIC REPORT CHECKLIST URETER, RENAL PELVIS: Resection [...] limited to this pathology report. pT Category: seamer pN Category: pN not assigned (no nodes submitted or found) ADDITIONAL FINDINGS Pathologic Findings in Ipsilateral Nonneoplastic Renal Tissue: None identified 12/05/2024 4:20 PM EDT [facility] EMBEDDED IMAGES 12/05/2024 4:20 PM EDT [facility] Tissue LEFT KIDNEY STRUCTURE / Unknown 12/01/2024 3:36 PM EDT 12/01/2024 4:31 PM EDT Sadi Haney MD PATHOLOGY ORDERABLES Nadiya l Result [facility] [address] [place] [address] [address] * US ANES GUIDANCE FOR POC (12/01/2024 [...] Previous History OK 12/01/2024 9:30 AM EDT [facility] Blood VENOUS BLOOD / Unknown Venipuncture / Unknown 12/01/2024 9:22 AM EDT 12/01/2024 9:26 AM EDT Sadi Haney MD BLOOD BANK ORDERABLES Fin al Result [facility] [address] [address] * ABORH (12/01/2024 9:22 AM EDT) ABORH Int B POS 12/01/2024 9:5 7 AM EDT [facility] Blood VENOUS BLOOD / Unknown Venipuncture / Unknown 12/01/2024 9:22 AM EDT 12/01/2024 9:26 AM EDT Sadi Haney MD BLOOD BANK ORDERABLES Fin al Result Performing Organization Address [facility] Co de Phone Number [facility] [place] [address] * RED BLOOD CELLS REQUEST (11/23/2024 2:10 PM EDT) Product Code [id number] [facility] Unit Number [id number] [facility] Crossmatch Interp Compatible [facility] Dispense Status TRANSFUSED [facility] Blood Expiration Date [id number] [facility] ISBT 128 Type 7[address] [facility]LOOD [facility] Blood Unit Volume 300 ml [facility] BA CODING SYSTEM [id number] [facility] Blood Type (Unit) B POS [facility] Blood 11/23/2024 2:10 PM EDT 11/23/2024 2:17 PM EDT [employer] BLOOD PRODUCT ORDERS Nadiya l Result Performing Organization Address City/[facility]/ZIP Co de Phone Number [facility]LO[facility] [place] [phone] * RED BLOOD CELLS REQUEST (11/23/2024 2:10 PM EDT) Product Code [id number] MARY [facility] Unit Number [id number] [facility] Crossmatch Interp Compatible [facility] Dispense Status TRANSFUSED [facility] Blood Expiration Date [facility] ISBT 128 Type 7300 [facility] Blood Unit Volume 300 ml [facility] BA CODING SYSTEM [id number] [facility] Blood Type (Unit) B POS [facility] Product Code [id number] [facility] Unit Number [id number] [facility] Crossmatch Interp Compatible [facility] Dispense Status TRANSFUSED [facility] Blood Expiration Date [facility] ISBT 128 Type 7300 [facility] Blood Unit Volume 300 ml [facility] BA CODING SYSTEM [id number] [facility] Blood Type (Unit) B POS [facility] Blood 11/23/2024 2:10 PM EDT 11/23/2024 2:17 PM EDT Sadi Haney MD BLOOD PRODUCT ORDERS Nadiya l Result Performing Organization Address City/State/[facility] Co de Phone Number [facility] [address] [place] [address] documented in this encounter Visit Diagnoses Diagnosis Ureteral mass- Primary Unspecified disorder of kidney and ureter Preop testing Preoperative examination, unspecified 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 Sepsis without acute [...] CONTINUOUS, Starting on Wed12/01/24 at 1730, Until 7/26/25 at 1729, Post-op IV Restarted 12/02/2024 4:14 PM EDT 125 mL/hr 0.9 % NaCl infusion Intravenous, at 100 mL/hr, CONTINUOUS, Starting on Wed12/02/24 at 1700, Until 12/03/24 at 1659 New [...] phenoL (CHLORASEPTIC) 1.4 % oral spray 1 [place] 1 [place], Oral, EVERY 2 HOURS PRN, Starting on Wed12/04/24 at 2110, Until Wed12/08/24 at 1550, Sore Throat Given 12/04/2024 9:58 PM EDT 1 [place] Saccharomyces boulardii (FLORASTOR) capsule 250 mg 250 [...] chloride 0.9% syringe Intravenous, PREPROCEDURE, Starting on Amelia 11/30/24 at 0816, Until Wed12/01/24 at 1819, Line [...] 09 (Given - Provider: Margie Diaz LPN) 08 (Given - Provider: Margie Diaz LPN) atorvastatin (LIPITOR) tablet 80 mg 80 mg, Oral, NIGHTLY, First dose (after last modification) on Wed12/05/24 at 2100, Until Discontinued, Post-op 2220 (Given - Provider: Zeinab Deutsch RN) 2100 (Given - Provider: Virginia Landis RN) cefTRIAXone in dextrose (ROCEPHIN) 2 gram/50 mL IVPB 2 g (CANCELED) 2 g, Intravenous, EVERY 24 HOURS SCHEDULED (Daily), 7 doses, First dose on 12/03/24 at 0900, Last dose on 12/09/24 at 0900, Administer over 30 Minutes, Reason [...] Margie Diaz LPN)2100 (Given - Provider: Virginia Landis, LAY) 08 (Given - Provider: Margie Diaz LPN) [...] dose on Wed12/07/24 at 0000, Until Discontinued 2253 (Given - Provider: Zeinab Deutsch RN) 0804 (Not Given - Provider: Margie Diaz LPN - Reason: Patient Declined) melatonin tablet 10 mg 10 mg, Oral, NIGHTLY, First dose on Wed12/05/24 at 2100, Until Discontinued 225 (Given - Provider: Zeinab Deutsch RN) 2227 (Not Given - Provider: Virginia Landis RN [...] Zeinab Deutsch RN) 0832 (Given - Provider: Marige Diaz LPN)1330 (Given - Provider: Margie Diaz [...] hours., Post-op 0513 (Given - Provider: Zeinab Deutsch RN)1736 (Given - Provider: Yessy Oreilly RN)2253 (Given - Provider: Zeinab Deutsch RN) 0517 (Given - Provider: Zeinab Deutsch RN)1003 (Given - Provider: Margie Diaz LPN)2100 (Given - Provider: Virginia Landis RN) 0542 (Given - Provider: Virginia Landis, LAY) benzocaine-menthoL (CEPACOL SORE THROAT) 15-3.6 mg 1 [...] 0834 (See Alternative - Provider: Yessy Oreilly RN)1815 (See Alternative - Provider: Margie Salguero RN)2252 (See Alternative - Provider: Zeinab Deutsch RN) ondansetron (ZOFRAN) tablet 4 mg(Linked Group [...] phenoL (CHLORASEPTIC) 1.4 % oral spray 1 [place](Linked Group 3) 1 [place], Oral, EVERY 2 HOURS PRN, Starting on [...] oral spray 1 SprayJump to med 1 [place], Oral, EVERY 2 HOURS PRN, Starting on [...] 12/01/2024 diphenhydrAMINE (BENADRYL) i njection 12.5-25 mg 12/01/2024 diphenhydrAMINE (BENADRYL) t ablet 12.5-25 mg 1 12/01/2024 droPERidol (INAPSINE) injection 0.625 mg 1 12/01/2024 meperidine (DEMEROL) injecti on (PF) 12.5 mg 1 12/01/2024 morphine injection 2 mg 1 12/01/2024 morphine injection 3-4 mg 12/01/2024 morphine injection 5-6 mg 12/01/2024 nicotine (NICODERM CQ) patch CHECK 1 [...] documented as of this encounter Care Teams Bronc Breaker Relationship Specialty Start Date End Date Reyna Perez APRN [facility] [address] [place] [id number] PCP - General Nurse Practitioner 10/27/24 documented as of this encounter
--- OUTSIDE RECORDS SUMMARY | 2024-12-01 09:50 | XMS_ITS | Encounter Summary ---
Author Organization [place] [address] Care Team Providers Care Land Surveying Manager Name Role Phone Reyna Perez DEMETRIUS Primary Care Provider [phone] Reason for Visit * Auth/Cert/Inpt Specialty Diagnoses / Procedures Referred By Juan R acosta Referred To Contact Diagnoses Ureteral mass Ureteral mass [N28.89] Procedures IA LAPAROSCOPY RADICAL NEPHRECTOMY IA CYSTOURETHROSCOPY W/DEST &/RMVL MED BLADDER EMERY IA LAPAROSCOPY NEPHRECTOMY W/TOTAL URETERECTOMY LEFT DAVINCI ROBOTIC NEPHROURETERECTOMY, CYSTOSCOPY, TRANSURETHRAL RESECTION OF THE BLADDER TUMOR Referral ID Status Reason Start Date Expiration Date Visits Re quested Visits Authorized [id number] 1 1 Encounter Details Date Type Department Care Team (Late st Contact Info) Description 12/01/2024 9:50 AM EDT Ancillary Procedure EDG SAME DAY SURGERY [facility] [place] [address] Sadi Haney MD [address] [facility] [address] [place], [place] [phone] Social History Tobacco Use Types Packs/Day Years [...] as of this encounter Functional Status * Alcohol Screening [...] 8:00 PM EDT Viri Segura RN * Suicide Severity Rating Answer Date of Assessment Author No Risk 12/01/2024 8:11 PM EDT Viri Segura RN * [place] Suicide Severity Rating Scale (Q shift for [...] Segura RN documented as of this encounter Plan of Treatment Not on file documented as of this encounter Procedures Procedure Name Priority Date/Time Associated Diagnosis Comments US ANES GUIDANCE FOR POC PIEDAD 12/01/2024 9:47 AM EDT documented in this encounter Results * US ANES GUIDANCE FOR POC (12/01/2024 9:47 AM EDT) Narrative Genericuser, Calderon - 12/01/2024 9:47 AM EDT Ultrasound guided nerve block performed by Anesthesiologist The study image(s) are for reference only and will not be interpreted by a Radiologist. Refer to the Anesthesia procedure note for image description and procedure details. us Jorge Alberto Hoang MD IMG US ORDERABLES Final Resu lt documented in this encounter Visit Diagnoses Not on filedocumented in this encounter Care Teams Land Surveying Manager Relationship Specialty Start Date End Date Reyna Perez, DEMETRIUS [address] [facility] [address] [place] [address] PCP - General Nurse Practitioner 10/27/24 documented as of this encounter
--- OUTSIDE RECORDS SUMMARY | 2024-12-01 10:35 | XMS_ITS | Encounter Summary ---
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 [address] Sadi Haney MD [address] [facility] [address] [place] [id number] DAVINCI ROBOTIC NEPHROURETERECTOMY Surgery Details Date/Time Status Location OR Service Patient Class Case Class Case Type Trauma Case? 12/01/2024 10:35 AM Posted EDG MAIN OR EDG Room 12- DV5 Urology Surgery Admit Elective Panel 1 Procedure LRB Anes Op Region Wound Class Comments DAVINCI ROBOTIC NEPHROURETERECTOMY Left General Clean Contaminated LEFT DAVINCI ROBOTIC NEPHROURETERECTOMY, CYSTOSCOPY, TRANSURETHRAL RESECTION OF THE BLADDER TUMOR CYSTOSCOPY TRANSURETHRAL RESECTION BLADDER TUMOR - FULGURATION/EVACUATION OF CLOT N/A General Urethra Clean Contaminated Surgeon Surgeon Role Service Panel Sadi Haney MD Primary Urology 1 Special Needs LASSITER KNIFE, HANG WATER, OLYMPUS ESU, CYSTO FIRST, KCDR Todd-JONNIE ERIKAmiguel documented in this encounter Social History Tobacco [...] Sign Reading Time Taken Comments Blood Pressure 140/83 12/01/2024 4:45 PM EDT Pulse 88 12/01/2024 4:45 PM EDT Temperature 36.5 C (97.7 F) 12/01/2024 4:45 PM EDT Respiratory Rate 17 12/01/2024 4:45 PM EDT Oxygen Saturation 95% 12/01/2024 4:45 PM EDT Inhaled Oxygen Concentration - - Weight 110.2 kg (243 lb) 12/01/2024 8:55 AM EDT Height 172.7 cm (5' 8 ) 12/01/2024 8:55 AM EDT Body Mass Index 36.95 12/01/2024 8:06 PM EDT documented in this encounter Functional Status * Suicide Severity Rating Answer Date of Assessment Author No Risk 11/07/2024 3:23 AM EDT Tommy Lugo RN * [place] Suicide Severity Rating Scale (Q shift for moderate and high) Question Answer Date of Assessment Author 1. In the past month, have y ou wished you were or wished you could go to sleep and not wake up? 0 11/07/2024 3:23 AM EDT Tommy Lugo , LAY 2. In the past month, have y ou actually had any thoughts of killing yourself? (If no, skip to question 6) 0 11/07/2024 3:23 AM EDT Tommy Lugo , LAY 6. Have you ever done anythi ng, started to do anything, or prepared to do anything to end your life? 0 11/07/2024 3:23 AM EDT Tommy Lugo RN documented as of this encounter Discharge Summaries * Peace Rea APRN - 12/08/2024 8:03 AM EDT Physician Discharge Summary Patient ID: Alex Hoffman [id number] 49 y.o. 1975 Admit date: 12/01/2024 Discharge [...] Your Medications These medications were sent to [facility] [address] [facility] [place] [address] Hours: Wednesday-Wednesday 8:00am - 6:30pm traMADoL 50 mg Tab You can get these medications from any pharmacy You don't need a prescription for these medications acetaminophen 325 mg Tab Sadi Haney MD [address] [facility] [address] [facility] [id number] Follow up in 2 week(s) follow up with Logan Montana MD [address] [facility] [address] [place] [id number] Follow up in 2 week(s) To discuss re-intation of antiplatelet therapy and further CTS w/u Reyna Perez APRN [address] [facility] [address] [place] [facility] [id number] Follow up in 1 week(s) Hospital [...] UNABLE TO REACH YOUR UROLOGIST OR UROLOGIST HAND CLIPPER, YOU SHOULD GO TO A NEARBY EMERGENCY [...] 24 hours a day, please call the [facility] [place] * Attachments The following attachments cannot be sent through Care Everywhere. * How to use an incentive spirometer (Latvian) * Nephrectomy ??? Discharge instructions (Latvian) * How to take anticoagulants safely (Latvian) * Vancomycin (Latvian) * Cefuroxime (Latvian) documented in this encounter Medications at Time [...] 5 Tablet 12/08/2024 11:27 AM EDT 12/08/2024 tolterodine (DETROL [...] AM EDT Discharge Medication Delivery Service DMD light technician has delivered the following medications for Alex Hoffman: Rx#[id number]:TRAMADOL 50 MG TABLET-50 mg EVERY 6 HOURS PRN Rx#[id number]:TOLTERODINE ER 4 MG CAPSULE,EXTENDED RELEASE 24 HR-4 mg DAILY Rx#[id number]:CEFUROXIME AXETIL 500 MG TABLET-500 mg EVERY 12 HOURS SCHEDULED Rx#[id number]:HYDROXYZINE PAMOATE 25 MG CAPSULE-25 mg EVERY 8 HOURS PRN Rx#[id number]:VANCOMYCIN 125 MG CAPSULE-125 mg 4 TIMES DAILY Date/Time of Delivery: 12/08/2024 11:35 AM Delivered to: Room 7308 Placed med bag on tray table. Please contact DMD light technician with any questions. Thanks! More Johnston [...] from the original note were not included. [facility] Urology Progress Note Hospital Day: [...] 2310 -- -- -- 73 -- -- 12/07/249 143/83 98.4 ??F (36.9 ??C) Oral 93 [...] PT Subjective Note Type Discharge Patient Room/Unit 7308 Discharge Information Discharge complete, please see discharge summary report for further information including most recently documented activity level Clinical Course pt obsesrved to be amb numerous laps in [facility]. therapy will sign off at thistimes Plan PT Frequency Complete Cosigned by Jennifer Santamaria PT at 12/07/2024 11:18 AM EDT Associated attestation - Jennifer Santamaria PT - 12/07/2024 11:18 AM EDT I agree with the COURT USHER documentation. * Peace Rea, PURCHASING ENGINEER - 12/07/2024 6:58 AM EDT Images from the original note were not included. [facility] Urology Progress Note Hospital Day: 7 [...] Shoemaker MD 12/06/2024 1:32 PM * Edith Colorado OT - 12/06/2024 12:47 PM EDT 12/06/24 [...] Steps 2 Home Equipment None;Mobilized without AD COURT USHER Level of Assistance Independent with ADLs ;Independent with functional transfers;Ambulatory in home;Ambulatory in the community Lives With Spouse Fall History No falls in the last three months ADL Assistance Independent Homemaking Assistance Independent Driving Yes Vocational Disabled (Reports he has been unable to work since he had a heart attack in September) Additional Comments 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 - LHC showed ostial LAD 70% stenosis, circumflex (nondominant) with 60-70% stenosis, with 30-40% stenosis of first OM. Pt reports he had LHC and PCI on 09/27/24 (VIC x 1 to RCA) at [facility]. Pt was scheduled to have additional PCI [...] Further input from Dr. Packer. 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 [facility] [...] from the original note were not included. [facility] Urology Urology Progress Note [...] at 12/05/2024 2259 Last data filed at 12/05/2024 2122 Gross [...] draining clear, yellow urine at this time; 0 mL output noted this evening Skin: General: [...] data and diagnostic testing reviewed 12/05/24. Juana Shoeamker MD 12/05/2024 1:31 PM * Rubens Packer [...] to restart- no doses yet 12/04 - COURT USHER Lasix 40gm QD, losartan 50mg QD, Toprol 25mg QD (on hold) Anemia - Hgb 10.2>7.5>8.1>7.9>7.3>8.2>8.9>8.4 - s/p 2 U PRBC's 12/03 and 1 U PRBC 12/04 CAD - EKG SR no acute ischemia appreciated - Trops > - Denies chest pain/ diaphoresis/ nausea - COURT USHER Effient, ASA, Statin, Toprol - Echo 10/2024: EF 60-65%. - LHC showed ostial LAD 70% stenosis, circumflex (nondominant) with 60-70% stenosis, with 30-40% stenosis of first OM. Pt reports he had LHC and PCI on 09/27/24 (VIC x 1 to RCA) at [facility]. Pt was scheduled to have additional PCI [...] - Will discuss bASA plans with attending malt house loader - on hold currently last dose 12/04. [...] bedside. PCI in September. Working towards CABG. COURT USHER Effient and bASA. Currently holding both. Recommend resumption bASA as soon as cleared by Urology. BP controlled on current regimen. Hgb trend better today. Will follow tomorrow. * Peace Rea APRN - 12/05/2024 8:01 AM EDT Images from the original note were not included. [facility] Urology Urology Progress Note [...] from the original note were not included. [facility] Urology Urology Progress Note [...] Pt admitted with Ureteral Mass, pt has [employer] PPO insurance. Note pt is alert and oriented x4. CC met with pt and Tessy at bedside and introduced self and role. Pt states he lives in a 1 story home with 2 steps to enter, ptstates he lives with his Tessy. PCP is Reyna Perez. Pt states he uses [facility] in [place]. Pt states he has concerns with affordability of medications, food, transportation, utilities, and other bills, CC provided resources Pt Toolkit and other resources. Pt states he was independent with ADL???s prior to admission. DME none, HHC pt states he has never been active with HH. Pt states he normally transports via his personal vehicle. Pt states he will transport via his Tessy at [place]. Pt identified his Tessy as his d/c planning support person. SDOH screen completed. Thereare no DC needs requested or identified at this time. CC following. Completed by CC/SW Yes Care Coordination Assessment Mental Status Alert and oriented Does patient need clinical counselor? No Decision Maker Patient Activities of Daily [...] or connection with God Interventions with Patient Restorationism Interventions Prayer with patient or family Outcomes Expressed Outcomes Appreciative of visit Care Plan Plan for Follow-Up Electrical Intern(s) will continue to follow throughout admission Carolyn Milton * Rubens Packer MD - 12/04/2024 9:15 AM EDT Heart & Vascular Progress Note PATIENT: Alex Hoffman 3 Cardiology following for: Hypotension Subjective: Having panic [...] to restart- no doses yet 12/04 - COURT USHER Lasix 40gm QD, losartan 50mg QD, Toprol 25mg QD (on hold) Anemia - Hgb 10.2>7.5>8.1>7.9>7.3 - s/p 2 U PRBC's 12/03 and 1 U PRBC 12/04 CAD - EKG SR no acute ischemia appreciated - Trops 27> 26 - Denies chest pain/ diaphoresis/ nausea - COURT USHER Effient, ASA, Statin, Toprol - Echo 10/2024: EF 60-65%. - LHC showed ostial LAD 70% stenosis, circumflex (nondominant) with 60-70% stenosis, with 30-40% stenosis of first OM. Pt reports he had LHC and PCI on 09/27/24 (VIC x 1 to RCA) at [facility]. Pt was scheduled to have additional PCI to LAD and circ however pt wanted a second opinion for possible CABG surgery. Met with Dr. Kenny 10/10 with plans for CABG x 2 with QUINTIN clip on 10/30/24.however this was postponed until urology w/u is complete. Plan: - Supportive care per others - Continue statin, Toprol - Will discuss bASA plans with attending malt house loader - on hold currently last dose today [...] from the original note were not included. [facility] Urology Progress Note Hospital Day: 4 No chief complaint on file. Subjective: Patient laying in bed this AM, anxious, reports he feels light headed. at bedside, tearful/stressed about patients lab results this AM. Hgb 7.3 this AM, Creat 1.07. DAMINE with small amount of sanguinous output noted [...] 0126 -- -- -- 83 -- -- 12/03/249 -- -- -- 88 -- -- 12/03/242235 108/61 -- -- -- -- -- 12/03/249 118/54 98.3 ??F (36.8 ??C) Oral 88 [...] hb was 8.2 Stopped bASA after d/w malt house loader Plan: Hold bASA DAMIEN off suction Check [...] from the original note were not included. [facility] Urology Urology Progress Note [...] is tomorrow. Patient also reports buttock pain 26/02 post surgery. No open area, skin blanching. [...] no acute ischemia appreciated -Trops -ASA/ Statin lpta -Denies chest pain/ diaphoresis/ nausea Hypotension -Improving [...] BP Further input from Dr Lizzie Hinkle, PURCHASING ENGINEER, Heart and Vascular 12/03/2024 Disposition Perspective - [...] any restarting metoprolol today. Bear Samuel MD, [facility] 12/03/2024 5:05 PM * Meng Chen MD [...] from the original note were not included. [facility] Urology Urology Progress Note [...] from the original note were not included. [facility] Urology Urology Progress Note [...] and relaxation without help. Message sent to circulation director and 1x dose valium ordered. Pt noted [...] from the original note were not included. [facility] Urology Urology Progress Note [...] Rogers APRN - 12/01/2024 8:50 AM EDT [facility] History and Physical Name: Alex Hoffman ADDRESS: [address] [place] [address] [place] [address] : 1975 AGE: 49 y.o. ASSESSMENT: Ureteral [...] disease) Heartburn Hyperlipidemia Hypertension Kidney mass left MT (myocardial infarction) (HCC) 09/17/2024 Motion sickness Past [...] left radical nephroureterectomy. SURGEON Sadi Haney MD AIR TUCKER See OR record ANESTHESIS General. ESTIMATED BLOOD LOSS 100 mL. DRAINS 10 mm DAMIEN. TUBES 22 Turkmen Bradford catheter. COMPLICATIONS None. POSTOPERATIVE CONDITION Good. [...] in the midclavicular line. A 12 mm web press operator assistant port was placed above the umbilicus. A 5 mm port for the web press operator assistant was placed below the xiphoid process. [...] Hoffman 1 PCP: Reyna Perez APRN Primary Special Assets Officer: None on file I would like to [...] disease) Heartburn Hyperlipidemia Hypertension Kidney mass left MT (myocardial infarction) ([facility]) 09/17/[address] USHER Medications: Prior to Admission medications Medication Sig [...] most recent cardiovascular imaging studies available in [facility] EMR were reviewed at time of consultation [...] no acute ischemia appreciated -Trops -ASA/ Statin lpta -Denies chest pain/ diaphoresis/ nausea Hypotension -Improving [...] 4. Pneumonia. Per primary. Bear Samuel MD, [facility] 12/02/2024 6:11 PM * Meng Chen MD [...] disease) Heartburn Hyperlipidemia Hypertension Kidney mass left MT (myocardial infarction) (HCC) 09/17/2024 Motion sickness Past Surgical History: Procedure Laterality Date CARDIAC CATHETERIZATION CORONARY ANGIOPLASTY WITH STENT PLACEMENT Sep 19 2022 CYSTOSCOPY 10/27/2024 Surgeon: Patricia Ellison MD; Location: [facility]; Service: Urology No Known Allergies Current Facility-Administered [...] SURGERY: 12/01/2024 WITH Sadi Khoury MD FOR: ME LAPAROSCOPY NEPHRECTOMY W/TOTAL URETERECTOMY [05764] (LEFT DAVINCI ROBOTIC NEPHROURETERECTOMY, CYSTOSCOPY, TRANSURETHRAL RESECTION OF THE BLADDER TUMOR) ME LAPAROSCOPY RADICAL NEPHRECTOMY [55027] ME CYSTOURETHROSCOPY W/DEST &/RMVL MED BLADDER EMERY [83566] THE ANESTHESIA DEPARTMENT IS REQUESTING A CLEARANCE RELATED TO: Recent PCI. Also surgeons is requesting if blood thinner can be held ? Anesthesia type:General PLEASE RESPOND TO THIS ENCOUNTER OR CALL WITH ANY QUESTIONS/CONCERNS PHONE: [phone] Thank You [facility] PRE-ADMISSION TESTING DEPARTMENT * Shoshana Rankin RN - 11/23/2024 2:24 PM EDT REPORTS REQUEST ATTENTION:Reyna Perez PATIENT: Alex Hoffman : 1975 This patient is scheduled for surgery on 12/01/2024 with Sadi Khoury MD Anesthesia has requested the most recent results of the following tests: Most recent office visit note and any recent testing COMMENTS:__Thanks! Please fax to Pre-admission testing. PHONE # [phone] ATTENTION: [address] [id number] documented in this encounter Miscellaneous Notes * Utilization Review Notes - Gala Powell LPN - 12/08/2024 11:29 AM EDT DISCHARGED HOME ON 12/08/24 FOLLOW UP WITH Sadi Haney MD [address] [facility] [address] [facility] [id number] Follow up in 2 week(s) follow up with Logan Montana MD [address] [facility] [id number] Follow up in 2 week(s) To discuss re-intation of antiplatelet therapy and further CTS w/u Reyna Perez APRN [address] [facility] [address] [place] [facility] [phone] Follow up in 1 week(s) Hospital follow up, recheck CBC next week with PCP prior to restarting blood thinner * Query Response Document - Juana Shoemaker MD - 12/08/2024 11:29 AM EDT [facility] CDI / HIM Coding Query Documentation PATIENT: ALEX HOFFMAN : 1975 ADMIT DATE: 12/01/2024 8:38 AM DISCH DATE: 12/08/2024 11:29 AM RESPONDING PROVIDER #: [id number] PROVIDER QUERY RESPONSE TEXT: Severe Sepsis POA [...] any questions, please contact Rodriguez Gabriel @ [phone]) Options provided: -- Severe Sepsis POA -- [...] from the original note were not included. NURSE LDR FOR ADMIT ON 12/01 ON MED SURG [...] - Will discuss bASA plans with attending malt house loader - on hold currently last dose 12/04. [...] to restart- no doses yet 12/04 - COURT USHER Lasix 40gm QD, losartan 50mg QD, Toprol 25mg QD (on hold) Anemia - Hgb 10.2>7.5>8.1>7.9>7.3 - s/p 2 U PRBC's 12/03 and 1 U PRBC 12/04 CAD - EKG SR no acute ischemia appreciated - Trops > - Denies chest pain/ diaphoresis/ nausea - COURT USHER Effient, ASA, Statin, Toprol - Echo 10/2024: EF 60-65%. - LHC showed ostial LAD 70% stenosis, circumflex (nondominant) with 60-70% stenosis, with 30-40% stenosis of first OM. Pt reports he had LHC and PCI on 09/27/24 (VIC x 1 to RCA) at [facility]. Pt was scheduled to have additional PCI to LAD and circ however pt wanted a second opinion for possible CABG surgery. Met with Dr. Kenny 10/10 with plans for CABG x 2 with QUINTIN clip on 10/30/24.however this was postponed until urology w/u is complete. Plan: - Supportive care per others - Continue statin, Toprol - Will discuss bASA plans with attending malt house loader - on hold currently last dose today [...] Hoffman 1 PCP: Reyna Perez APRN Primary Special Assets Officer: None on file I would like to [...] disease) Heartburn Hyperlipidemia Hypertension Kidney mass left MT (myocardial infarction) (HCC) 09/17/[address] USHER Medications: Prior to Admission medications Medication Sig [...] (1.727 m) Wt 243 lb (110.2 kg) FnR193% BMI 36.95 kg/m I/O 24 hours: Intake/Output Summary (Last 24 hours) at 12/02/2024 1156 Last data filed at 12/02/2024 1154 Gross per 24 hour Intake 7111.22 ml Output 1360 ml Net 5751.22 ml Diagnostic tests The most recent cardiovascular imaging studies available in [facility] EMR werereviewed at time of consultation Exam: [...] no acute ischemia appreciated -Trops -ASA/ Statin lpta -Denies chest pain/ diaphoresis/ nausea Hypotension -Improving [...] bladder tumor, postsurgery. 4. Pneumonia. Per primary. Bera Samuel MD, [facility] 12/02/2024 6:11 PM TROPONIN-T HIGH SENSITIVITY 2HR [...] disease) Heartburn Hyperlipidemia Hypertension Kidney mass left MT (myocardial infarction) (HCC) 09/17/2024 Motion sickness Past Surgical History: Procedure Laterality Date CARDIAC CATHETERIZATION CORONARY ANGIOPLASTY WITH STENT PLACEMENT Sep 19 2022 CYSTOSCOPY 10/27/2024 Surgeon: Patricia Ellison MD; Location: [facility]; Service: Urology No Known Allergies Current Facility-Administered Medications: 0.9 % NaCl infusion, , Intravenous, Continuous, Sadi Haney MD, Last Rate: 125 mL/hr at 07/26/25 07, Rate Verify at 12/02/24729 acetaminophen (TYLENOL) tablet 650 mg, 650 mg, Oral, 6 times per day,650 mg at 12/02/24 06 OR acetaminophen (TYLENOL) oral solution 650mg, 650 [...] Patch, 1 Patch, Transdermal, Daily,1 Patch at 12/01/244 AND nicotine (NICODERM CQ) patch CHECK, 1Patch, [...] OLYMPUS ESU, CYSTO FIRST, KCDR HAJ-HAMED ASSISTINGsk ME CYSTOURETHROSCOPY W/DEST &/RMVL MED BLADDER EMERY 12/01/2024 11:21 AM EDT Ureteral mass Special Needs LASSITER KNIFE, HANG WATER, OLYMPUS ESU, CYSTO FIRST, KCDR HAJ-HAMED ASSISTINGsk ME LAPAROSCOPY RADICAL NEPHRECTOMY 12/01/2024 11:21 AM EDT Ureteral mass Special Needs LASSITER KNIFE, HANG WATER, OLYMPUS ESU, CYSTO FIRST, KCDR HAJ-HAMED ASSISTINGsk ME LAPAROSCOPY NEPHRECTOMY W/TOTAL URETERECTOMY 12/01/2024 11:21 AM EDT Ureteral mass Special Needs LASSITER KNIFE, HANG WATER, OLYMPUS ESU, CYSTO FIRST, KCDR HAJ-HAMED ASSISTINGsk US ANES GUIDANCE FOR POC [facility] 12/01/2024 9:47 AM EDT BB HISTORY CHECK STAT 12/01/2024 9:22 AM EDT Preop testing ABORH STAT 12/01/2024 9:22 AM EDT Preop testing RED BLOOD CELLS REQUEST [facility] 11/23/2024 2:10 PM EDT RED BLOOD CELLS REQUEST [facility] 11/23/2024 2:10 PM EDT documented in this encounter Results * SCANNED RHYTHM STRIPS (12/09/2024 4:31 AM EDT) Anatomical Region Laterality Modality Other 12/09/2024 4:31 AM EDT us Unknown Provider IMG ECG ORDERABLES Final Result * (ABNORMAL) CBC WITH DIFF (12/08/2024 6:02 AM EDT) WBC 9.4 3.7 - 10.3 x10(3)/mcL 12/08/2024 6:48 AM EDT [facility] RBC 3.12(L) 4.60 - 6.10 x10(6)/mcL 12/08/2024 6:48 AM EDT [facility] Hgb 9.3(L) 13.7 - 17.5 g/dL 12/08/2024 6:48 AM EDT [facility] Hct 28.5(L) 40.0 - 51.0 % 12/08/2024 6:48 AM EDT [facility] MCV 91.3 80.0 - 100.0 fL 12/08/2024 6:48 AM EDT [facility] MCH 29.8 26.0 - 34.0 pg 12/08/2024 6:48 AM EDT [facility] MCHC 32.6 30.7 - 35.5 g/dL 12/08/2024 6:48 AM EDT [facility] RDW 14.5 <=14.9 % 12/08/2024 6:48 AM EDT [facility] Platelet 292 155 - 369 x10(3)/[facility] 12/08/2024 6:48 AM EDT [facility] MPV 9.5 8.8 - 12.5 fL 12/08/2024 6:48 AM EDT [facility] Neut Percent 71.4 % 12/08/2024 6:48 AM EDT [facility] Comment:Neutrophils equals s egs plus bands Imm Gran% 1.1 % 12/08/2024 6:48 AM EDT [facility] Comment:Automated count of m etamyelocytes, myelocytes and promyelocytes. IG >1% represents a left shift and provides an early indication of an infection or inflammatory process. Lymph Percent 14.3 % 12/08/2024 6:48 AM EDT [facility] [place] Percent 11.0 % 12/08/2024 6:48 AM EDT [facility] Eos Percent 1.9 % 12/08/2024 6:48 AM EDT [facility] Baso Percent 0.3 % 12/08/2024 6:48 AM EDT [facility] Neut # 6.7(H) 1.6 - 6.1 x10(3)/mcL 12/08/2024 6:48 AM EDT [facility] Comment:Neutrophils equals s egs plus bands IMMGRAN# 0.1 0.0 - 0.1 x10(3)/mcL 12/08/2024 6:48 AM EDT [facility] [facility] Comment:Automated count of m etamyelocytes, myelocytes and promyelocytes. An absolute IG <0.1 is reported as 0.0. Lymph # 1.3 1.2 - 3.9 x10(3)/mcL 12/08/2024 6:48 AM EDT [facility] [place] # 1.0(H) 0.3 - 0.9 x10(3)/mcL 12/08/2024 6:48 AM EDT [facility] Eos# 0.2 0.0 - 0.5 x10(3)/mcL 12/08/2024 6:48 AM EDT [facility] Baso # 0.0 0.0 - 0.1 x10(3)/mcL 12/08/2024 6:48 AM EDT [facility] Blood VENOUS BLOOD / Unknown Venipuncture / Unknown 12/08/2024 6:02 AM EDT 12/08/2024 6:35 AM EDT us Juana Shoemaker MD HEMATOLOGY ORDERABLES Final R esult [facility] 1 [facility] , [place] [address] * (ABNORMAL) BASIC METABOLIC PANEL (12/08/2024 6:02 AM EDT) Sodium 137 136 - 145 mmol/L 12/08/2024 7:09 AM EDT [facility] Potassium 3.7 3.5 - 5.0 mmol/L 12/08/2024 7:09 AM EDT [facility] Chloride 104 98 - 107 mmol/L 12/08/2024 7:09 AM EDT [facility] Total CO2 21(L) 22 - 29 mmol/L 12/08/2024 7:09 AM EDT [facility] Anion Gap 12 7 - 16 mmol/L 12/08/2024 7:09 AM EDT [facility] Calcium 9.3 8.6 - 10.4 mg/dL 12/08/2024 7:09 AM EDT [facility] Glucose Lvl 105(H) 70 - 99 mg/dL 12/08/2024 7:09 AM EDT [facility] BUN 11 6 - 20 mg/dL 12/08/2024 7:09 AM EDT [facility] Creatinine 0.96 0.67 - 1.30 mg/dL 12/08/2024 7:09 AM EDT [facility] eGFR (CKD-EPIcr 2020) 96 >=60 mL/min/1.7 3 m2 12/08/2024 7:09 AM EDT [facility] Comment:Estimated GFR was ca lculated using the CKD-EPIcr (2020) equation refit without race. The equation is recommended by the National Kidney Foundation - [place] [employer] Nephrology Task Force. Blood VENOUS BLOOD / Unknown Venipuncture / Unknown 12/08/2024 6:02 AM EDT 12/08/2024 6:34 AM EDT us Juana Shoemaker MD CHEMISTRY ORDERABLES Final Re sult [facility] 1 [facility] [place], [address] [place] [phone] * ECG AND WAVEFORMS - TELEMETRY (12/07/2024 8:06 PM EDT) ECG INTERPRET NSR [facility] 12/07/2024 8:06 PM EDT Narrative [facility] - 12/07/2024 8:18 PM EDT ROUTINE (BS) ME 0.16 QRS 0.12 RR 0.65 QT 0.40 QTc 0.50 See Clinical Report link for waveform capture us Unknown Provider POINT OF CARE CARDIOLOGY Final Result Performing Organization Address City/[facility]/ZIP Co de Phone Number [facility] 1 [place] [address] * FL CYSTOGRAM MINIMUM 3 [...] examination was performed by Rachna Eller, physician web press operator assistant, under the supervision of Dr. Singh. A total fluoroscopy time of 1.2 minutes was used. 119 fluoroscopic spot images were saved to PACS. FINDINGS: Via Bradford catheter, 175 mL of water-soluble contrast was instilled retrograde into the urinary bladder. Imaging was performed in multiple projections. Electric Truck [employer] radiographs show a surgical drain over the [...] The examination was performed by Rachna Eller,physician web press operator assistant, under the supervision of Dr. Singh. A total fluoroscopy timeof 1.2 minutes was used. 119 fluoroscopic spot images were saved to PACS. FINDINGS: Via Bradford catheter, 175 mL of water-soluble contrast wasinstilled retrograde into the urinary bladder. Imaging was performed in multiple projections. Electric [employer] radiographs show a surgical drain over the [...] (12/07/2024 10:12 AM EDT) ECG INTERPRET NSR [facility] 12/07/2024 10:1 2 AM EDT Narrative [facility] - 12/07/2024 10:20 AM EDT (DT)ROUTINE ME 0.15 QRS 0.09 RR 0.73 QT 0.37 QTc 0.43 See Clinical Report link for waveform capture us Unknown Provider POINT OF CARE CARDIOLOGY Final Result [facility] 1 [place] [address] * (ABNORMAL) CBC (12/07/2024 5:33 [...] ORDERABLES Fin al Result [facility] 1 [facility] , [place] [address] * ECG AND WAVEFORMS - TELEMETRY (12/06/2024 11:04 PM EDT) ECG INTERPRET NSR [facility] 12/06/2024 11:0 4 PM EDT Narrative [facility] - 12/06/2024 11:37 PM EDT ROUTINE ME 0.13 QRS 0.12 RR 0.84 QT 0.40 QTc 0.43 See Clinical Report link for waveform capture us Unknown Provider POINT OF CARE CARDIOLOGY Final Result Performing Organization Address [facility] Co de Phone Number [facility] 1 [place], [place] [id number] * (ABNORMAL) C DIFF INTERPRETATION (12/06/2024 9:57 AM EDT) C Diff Toxin DNA Positive(A) Negative 12/06/2024 1:18 PM EDT [facility] NAP1 Presumptive Neg Presumptive Neg 12/06/2024 1:18 PM EDT [facility] GDH Antigen Positive(A) Negative 12/06/2024 1:18 PM EDT [facility] C diff toxin A/B Positive(A) Negative 12/06/2024 1:18 PM EDT [facility] Stool RECTUM STRUCTURE / Unknown Collection / Unknown 12/06/2024 9:57 AM EDT 12/06/2024 10:05 AM EDT Narrative [facility] - 12/06/2024 1:18 PM EDT Toxin producing C diff target DNA sequences detected. Toxins A/B positive. CDI likely. Consider initiation of severity-based CDI therapy according to CDI management guidance. Brody LINDQUIST MICROBIOLOGY - GENERAL ORDERABLE S Final Result Performing Organization Address [facility] de Phone Number [facility] 1 [facility] [address], [address] [place] [phone] * C DIFF GDH AG AND TOXIN A+B (12/06/2024 9:57 AM EDT) Stool RECTUM STRUCTURE / Unknown Collection / Unknown 12/06/2024 9:57 AM EDT 12/06/2024 10:05 AM EDT Brody LINDQUIST MICROBIOLOGY - GENERAL ORDERABLE S Final Result Performing Organization Address City/[facility] Co de Phone Number [facility] [employer] 1 [facility] , [place] [address] * C DIFF TOXIN DNA (12/06/2024 9:57 AM EDT) Stool RECTUM STRUCTURE / Unknown Collection / Unknown 12/06/2024 9:57 AM EDT 12/06/2024 10:05 AM EDT us Brody LINDQUIST MICROBIOLOGY - GENERAL ORDERABLE S Final Result Performing Organization Address City/[facility]/ZIP Co de Phone Number [facility] [employer] 1 [facility] , [place] [address] * ECG AND WAVEFORMS - TELEMETRY (12/06/2024 7:01 AM EDT) Pathologist [facility] ECG INTERPRET NSR [facility] 12/06/2024 7:01 AM EDT Narrative [facility] - 12/06/2024 8:04 AM EDT (DT)ROUTINE ME 0.17 QRS 0.09 RR 0.78 QT 0.38 QTc 0.42 See Clinical Report link for waveform capture us Unknown Provider POINT OF CARE CARDIOLOGY Final Result Performing Organization Address [facility] Co de Phone Number [facility] 1 [place] [address] * (ABNORMAL) CBC (12/06/2024 5:28 [...] fL 12/06/2024 6:35 AM EDT [facility] MCH 30.7 26.0 - 34.0 pg 12/06/2024 6:35 AM EDT [facility] MCHC 33.9 30.7 - 35.5 g/dL 12/06/2024 6:35 AM EDT [facility] RDW 14.4 <=14.9 % 12/06/2024 6:35 AM EDT [facility] Platelet 217 155 - 369 x10(3)/mcL 12/06/2024 6:35 AM EDT [facility] MPV 9.7 8.8 - 12.5 fL 12/06/2024 6:35 AM EDT [facility] Blood VENOUS BLOOD / Unknown Venipuncture / Unknown 12/06/2024 5:28 AM EDT 12/06/2024 6:23 AM EDT Sadi Haney MD HEMATOLOGY ORDERABLES Fin al Result [facility] [employer] [address], [place] [address] * ECG AND WAVEFORMS - TELEMETRY (12/05/2024 7:00 PM EDT) [facility] ECG INTERPRET Sinus Tachycardia [facility] 12/05/2024 7:00 PM EDT Narrative [facility] - 12/05/2024 9:36 PM EDT ROUTNE ME 0.13 QRS 0.12 RR 0.55 QT 0.34 QTc 0.46 See Clinical Report link for waveform capture us Unknown Provider POINT OF CARE CARDIOLOGY Final Result Performing Organization Address City/[facility]/ZIP Co de Phone Number [facility] 1 [place] [address] * (ABNORMAL) HEMOGLOBIN AND HEMATOCRIT (12/05/2024 12:22 PM EDT) [facility] Hgb 9.4(L) 13.7 - 17.5 g/dL 12/05/2024 1:04 PM EDT [facility] Hct 27.8(L) 40.0 - 51.0 % 12/05/2024 1:04 PM EDT [facility] Blood VENOUS BLOOD / Unknown Venipuncture / Unknown 12/05/2024 12:22 PM EDT 12/05/2024 12:27 PM EDT Juana Shoemaker MD HEMATOLOGY ORDERABLES Final R esult Performing Organization Address City/[facility]/ZIP Co de Phone Number [facility], [address], [place] [address] * ECG AND WAVEFORMS - TELEMETRY (12/05/2024 8:03 AM EDT) [facility] ECG INTERPRET NSR [facility] 12/05/2024 8:03 AM EDT Narrative [facility] - 12/05/2024 9:13 AM EDT ME 0.14 QRS 0.08 RR 0.72 QT 0.36 QTc 0.42 See Clinical Report link for waveform capture us Unknown Provider POINT OF CARE CARDIOLOGY Final Result Performing Organization Address [facility] de Phone Number [facility] [address] [place] [address] * (ABNORMAL) CBC (12/05/2024 5:55 AM EDT) WBC 8.0 3.7 - 10.3 x10(3)/mcL 12/05/2024 7:34 AM EDT [facility] RBC 2.79(L) 4.60 - 6.10 x10(6)/mcL 12/05/2024 7:34 AM EDT [facility] Hgb 8.4(L) 13.7 - 17.5 g/dL 12/05/2024 7:34 AM EDT [facility] Hct 25.3(L) 40.0 - 51.0 % 12/05/2024 7:34 AM EDT [facility] MCV 90.7 80.0 - 100.0 fL [...] ORDERABLES Fin al Result Performing Organization Address City/[facility]/ZIP Co de Phone Number [facility], [address] , [place] [address] * (ABNORMAL) HEMOGLOBIN AND HEMATOCRIT (12/04/2024 7:12 PM EDT) [facility] Hgb 8.9(L) 13.7 - 17.5 g/dL 12/04/2024 7:32 PM EDT [facility] Hct 26.5(L) 40.0 - 51.0 % 12/04/2024 7:32 PM EDT [facility] Blood VENOUS BLOOD / Unknown Venipuncture / Unknown 12/04/2024 7:12 PM EDT 12/04/2024 7:25 PM EDT Sadi Haney MD HEMATOLOGY ORDERABLES Fin al Result Performing Organization Address City/[facility]/ZIP Co de Phone Number [facility], [address] , [place] [address] * ECG AND WAVEFORMS - TELEMETRY (12/04/2024 7:00 PM EDT) ECG INTERPRET NSR [facility] 12/04/2024 7:00 PM EDT Narrative [facility] - 12/05/2024 1:26 AM EDT ROUTINE(CW) ME 0.14 QRS 0.07 RR 0.77 QT 0.38 QTc 0.43 See Clinical Report link for waveform capture us Unknown Provider POINT OF CARE CARDIOLOGY Final Result Performing Organization Address City/[facility]/ZIP Co de Phone Number [facility] 1 [place] [address] * TRANSFUSE RED BLOOD CELLS (12/04/2024 3:25 PM EDT) us [employer] [place] PURCHASING ENGINEER NURSING TREATMENT ORDERABLES - BLOOD ADMIN Edited Result - Final * TRANSFUSE RED BLOOD CELLS (12/04/2024 3:25 PM EDT) [facility] [place] PURCHASING ENGINEER NURSING TREATMENT ORDERABLES - BLOOD ADMIN Edited Result - Final * (ABNORMAL) HEMOGLOBIN AND HEMATOCRIT (12/04/2024 12:54 PM EDT) [facility] Hgb 8.2(L) 13.7 - 17.5 g/dL 12/04/2024 1:13 PM EDT [facility] Hct 24.7(L) 40.0 - 51.0 % 12/04/2024 1:13 PM EDT [employer] Blood VENOUS BLOOD / Unknown Venipuncture / Unknown 12/04/2024 12:54 PM EDT 12/04/2024 1:06 PM EDT us [employer] [place] PURCHASING ENGINEER HEMATOLOGY ORDERABLES Fin al Result Performing Organization Address City/[facility]/ZIP Co de Phone Number [employer] [address] [place] [address] , [place] [address] * ECG AND WAVEFORMS - TELEMETRY (12/04/2024 7:56 AM EDT) [facility] ECG INTERPRET R [facility] 12/04/2024 7:56 AM EDT Narrative [facility] - 12/04/2024 11:08 PM EDT ROUTINE//AC ME 0.14 QRS 0.11 RR 0.76 QT 0.39 QTc 0.45 See Clinical Report link for waveform capture us Unknown Provider POINT OF CARE CARDIOLOGY Final Result Performing Organization Address [facility] de Phone Number [facility] 1 [place] [address] * ECG AND WAVEFORMS - TELEMETRY (12/04/2024 7:56 AM EDT) [facility] ECG INTERPRET NSR [facility] 12/04/2024 7:56 AM EDT Narrative [facility] - 12/04/2024 8:01 AM EDT ROUTINE//AC ME 0.14 QRS 0.11 RR 0.76 QT 0.39 QTc 0.45 See Clinical Report link for waveform capture us Unknown Provider POINT OF CARE CARDIOLOGY Final Result Performing Organization Address [facility] de Phone Number [facility] 1 [place] [phone] * (ABNORMAL) IRON+TIBC (12/04/2024 5:52 AM EDT) Pathologist [facility] Iron 27(L) 50 - 170 mcg/dL 12/05/2024 [...] ORDERABLES Final Re sult [facility] 1 [facility] [address], [place] [address] * (ABNORMAL) BASIC METABOLIC PANEL (12/04/2024 5:52 [...] recommended by the National Kidney Foundation - [place] [employer] of Nephrology Task Force. Blood VENOUS BLOOD / Unknown Venipuncture / Unknown 12/04/2024 5:52 AM EDT 12/04/2024 6:01 AM EDT Sadi Haney MD CHEMISTRY ORDERABLES Nadiya nichols Result [facility] [address], [place] [address] * (ABNORMAL) CBC WITH DIFF (12/04/2024 5:52 [...] 6:13 AM EDT [facility] [place] Percent 10.4 % 12/04/2024 6:13 AM EDT [facility] Eos Percent 2.6 % 12/04/2024 6:13 AM EDT [facility] Baso Percent 0.3 % 12/04/2024 6:13 AM EDT [facility], [facility] Neut # 4.1 1.6 - 6.1 x10(3)/[facility] 12/04/2024 6:13 AM EDT [facility] Comment:Neutrophils equals s egs plus bands IMMGRAN# 0.0 0.0 - 0.1 x10(3)/[facility] 12/04/2024 6:13 AM EDT [facility] Comment:Automated count of m etamyelocytes, myelocytes and promyelocytes. An absolute IG <0.1 is reported as 0.0. Lymph # 1.5 1.2 - 3.9 x10(3)/[facility] 12/04/2024 6:13 AM EDT [facility] [place] # 0.7 0.3 - 0.9 x10(3)/[facility] 12/04/2024 6:13 AM EDT [facility] Eos# 0.2 0.0 - 0.5 x10(3)/[facility] 12/04/2024 6:13 AM EDT [facility] Baso # 0.0 0.0 - 0.1 x10(3)/[facility] 12/04/2024 6:13 AM EDT [facility] Blood VENOUS BLOOD / Unknown Venipuncture / Unknown 12/04/2024 5:52 AM EDT 12/04/2024 6:01 AM EDT Sadi Haney MD HEMATOLOGY ORDERABLES Fin al Result [facility] 1 [facility] , [place] [address] * ECG AND WAVEFORMS - TELEMETRY (12/03/2024 7:00 PM EDT) ECG INTERPRET NSR [facility] 12/03/2024 7:00 PM EDT Narrative [facility] - 12/03/2024 8:34 PM EDT ROUTINE(CW) ME 0.15 QRS 0.06 RR 0.60 QT 0.27 QTc 0.35 See Clinical Report link for waveform capture us Unknown Provider POINT OF CARE CARDIOLOGY Final Result Performing Organization Address [facility] Co de Phone Number [facility] 1 [place] [address] * (ABNORMAL) HEMOGLOBIN AND HEMATOCRIT (12/03/2024 10:44 AM EDT) Hgb 7.9(L) 13.7 - 17.5 g/dL 12/03/2024 11:50 AM EDT [facility] Hct 23.7(L) 40.0 - 51.0 % 12/03/2024 11:50 AM EDT [facility] Blood VENOUS BLOOD / Unknown Venipuncture / Unknown 12/03/2024 10:44 AM EDT 12/03/2024 10:54 AM EDT us Meng Chen MD HEMATOLOGY ORDERABLES Final Res ult Performing Organization Address [facility] Co de Phone Number [employer] [address] [place] [address] DR, [place] [address] * ECG AND WAVEFORMS - TELEMETRY (12/03/2024 7:00 AM EDT) [facility] ECG INTERPRET NSR [facility] 12/03/2024 7:00 AM EDT Narrative [facility] - 12/03/2024 7:58 AM EDT [place] ROUTINE ME 0.14 QRS 0.09 RR 0.66 QT 0.35 See Clinical Report link for waveform capture us Unknown Provider POINT OF CARE CARDIOLOGY Final Result Performing Organization Address [facility] Co de Phone Number [facility] 1 [place] [address] * (ABNORMAL) HEMOGLOBIN AND HEMATOCRIT (12/03/2024 4:48 AM EDT) Hgb 8.0(L) 13.7 - 17.5 g/dL 12/03/2024 5:08 AM EDT [facility] Hct 24.4(L) 40.0 - 51.0 % 12/03/2024 5:08 AM EDT [facility] Blood VENOUS BLOOD / Unknown Venipuncture / Unknown 12/03/2024 4:48 AM EDT 12/03/2024 4:58 AM EDT Meng Chen MD HEMATOLOGY ORDERABLES Final Res ult Performing Organization Address [facility] de Phone Number [employer] 1 [facility] , [place] [address] * TRANSFUSE RED BLOOD CELLS (12/03/2024 4:00 AM EDT) Result [facility] Sadi Haney MD NURSING TREATMENT ORDERAB LES - BLOOD ADMIN Final Result * TRANSFUSE RED BLOOD CELLS (12/03/2024 4:00 AM EDT) Result [facility] Sadi Haney MD NURSING TREATMENT ORDERAB LES - BLOOD ADMIN Final Result * (ABNORMAL) TROPONIN-T HIGH SENSITIVITY 6 HR (12/03/2024 3:40 AM EDT) qv-aUisldmpd-Q 6HR 37(H) <22 ng/L 12/03/2024 4:43 AM EDT [facility] hs-cTnT 6Hr Delta from Baseline 11 <12 ng/L 12/03/2024 4:43 AM EDT [employer] Blood VENOUS BLOOD / Unknown Venipuncture / Unknown 12/03/2024 3:40 AM EDT 12/03/2024 4:11 AM EDT Narrative [facility] - 12/03/2024 4:43 AM EDT Ingestion of josé miguel doses of biotin (>5 mg/day) taken within 8 hours of drawing blood sample can interfere with this immunoassay test. Rachna Wood PURCHASING ENGINEER CHEMISTRY ORDERABLES Fin al Result Performing Organization Address [facility] de Phone Number [employer] 1 [facility] , [place] [address] * (ABNORMAL) BASIC METABOLIC PANEL (12/03/2024 3:40 AM EDT) Sodium 142 136 - 145 mmol/L 12/03/2024 4:42 AM EDT [facility] Potassium 4.2 3.5 - 5.0 mmol/L 12/03/2024 4:42 AM EDT [facility] Chloride 111(H) 98 - 107 mmol/L 12/03/2024 4:42 AM EDT [facility] Total CO2 21(L) 22 - 29 mmol/L [...] 12/03/2024 4:42 AM EDT [facility] Comment:Estimated GFR was ca lculated using the CKD-EPIcr (2020) equation refit without race. The equation is recommended by the National Kidney Foundation - [place] [employer] Nephrology Task Force. Blood VENOUS BLOOD / Unknown Venipuncture / Unknown 12/03/2024 3:40 AM EDT 12/03/2024 4:11 AM EDT Sadi Haney MD CHEMISTRY ORDERABLES Nadiya nichols Result [facility] 1 [facility] , [address] [place] [phone] * (ABNORMAL) CBC WITH DIFF (12/03/2024 3:40 [...] 4:22 AM EDT [facility] [place] Percent 11.5 % 12/03/2024 4:22 AM EDT [facility] Eos Percent 0.6 % 12/03/2024 4:22 AM EDT [facility] Baso Percent 0.2 % 12/03/2024 4:22 AM EDT [facility] Neut # 6.7(H) 1.6 - 6.1 x10(3)/[facility] 12/03/2024 4:22 AM EDT [facility] [employer], [facility] Comment:Neutrophils equals s egs plus bands IMMGRAN# 0.0 0.0 - 0.1 x10(3)/[facility] 12/03/2024 4:22 AM EDT [facility] [employer] Comment:Automated count of m etamyelocytes, myelocytes and promyelocytes. An absolute IG <0.1 is reported as 0.0. Lymph # 1.6 1.2 - 3.9 x10(3)/[facility] 12/03/2024 4:22 AM EDT [facility] [place] # 1.1(H) 0.3 - 0.9 x10(3)/[facility] 12/03/2024 4:22 AM EDT [facility] Eos# 0.1 0.0 - 0.5 x10(3)/[facility] 12/03/2024 4:22 AM EDT [facility] Baso # 0.0 0.0 - 0.1 x10(3)/[facility] 12/03/2024 4:22 AM EDT [facility] [employer] Blood VENOUS BLOOD / Unknown Venipuncture / Unknown 12/03/2024 3:40 AM EDT 12/03/2024 4:11 AM EDT us Sadi Haney MD HEMATOLOGY ORDERABLES Fin al Result [facility] [employer], [facility] [address] [facility] , [place] [address] * TRANSFUSE RED BLOOD CELLS (12/03/2024 1:03 AM EDT) us Sadi Haney MD NURSING TREATMENT ORDERAB LES - BLOOD ADMIN Final Result * TRANSFUSE RED BLOOD CELLS (12/03/2024 1:03 AM EDT) us Sadi Haney MD NURSING TREATMENT ORDERAB LES - BLOOD ADMIN Final Result * (ABNORMAL) TROPONIN-T HIGH SENSITIVITY 2HR (12/02/2024 10:14 PM EDT) vs-gPmjgkznz-B 2HR 33(H) <22 ng/L 12/02/2024 11:02 PM EDT [facility] [employer] hs-cTnT 2Hr Delta from Baseline 7(H) <4 ng/L 12/02/2024 11:02 PM EDT [facility] [employer] [facility] Blood VENOUS BLOOD / Unknown Venipuncture / Unknown 12/02/2024 10:14 PM EDT 12/02/2024 10:33 PM EDT Narrative [facility] [employer] [facility] - 12/02/2024 11:02 PM EDT Ingestion of josé miguel doses of biotin (>5 mg/day) taken within 8 hours of drawing blood sample can interfere with this immunoassay test. us Rachna Wood PURCH[employer]ING ENGINEER CHEMISTRY ORDERABLES Fin al Result [facility] [employer] [facility] [address] [facility] , [place] [address] * CT ABDOMEN PELVIS W CONTRAST (12/02/2024 [...] BASELINE W/ REFLEX (12/02/2024 7:34 PM EDT) bv-sClhrjqbf-G 26(H) <22 ng/L 12/02/2024 8:05 PM EDT [facility] Blood VENOUS BLOOD / Unknown Venipuncture / Unknown 12/02/2024 7:34 PM EDT 12/02/2024 7:37 PM EDT Narrative [facility] [employer] - 12/02/2024 8:05 PM EDT Ingestion of josé miguel doses of biotin (>5 mg/day) taken within 8 hours of drawing blood sample can interfere with this immunoassay test. us Rachna Wood PURCHASING ENGINEER CHEMISTRY ORDERABLES Fin al Result [facility] [address] [facility] [place], [place] [address] * EK EKG 12 LEAD (12/02/2024 7:13 PM EDT) Anatomical Region Laterality Modality Electrocardiogra phy 12/02/2024 7:21 PM EDT Impressions 12/03/2024 11:[address] [facility] Test Date: 2024-12-02 Pat Name: ALEX HOFFMAN Department: DEPID Room: [facility] Gender: Male Corporate Real Estate Manager: Benigno : 1975 Requested By: RACHNA Gutierrez Order Number: [id number] Britt MD: Edelmira Ramsey DO Measurements Intervals [place] Rate: 123 P: 131 ME: 167 QRS: 1 QRSD: 90 T: 72 QT: 319 QTc: 457 Interpretive Statements SINUS TACHYCARDIA NONSPECIFIC ST & T-WAVE ABNORMALITY ABNORMAL RHYTHM ECG Electronically Signed On 12-03-2024 11:25:42 EDT by Edelmira Ramsey DO Narrative Procedure Note Edelmira Ramsey DO - 12/03/[address] [facility] Test Date: 2024-12-02 Pat Name: AELX HOFFMAN Department: DEPID Room: 08 Gender: Male Corporate Real Estate Manager: As : 1975 Requested By: RACHNA Gutierrez Order Number: [id number] Reading MD: Edelmira Ramsey DO Measurements Intervals [place] Rate: 123 P: 131 ME: 167 QRS: 1 QRSD: 90 T: 72 QT: 319 QTc: 457 Interpretive Statements SINUS TACHYCARDIA NONSPECIFIC ST & T-WAVE ABNORMALITY ABNORMAL RHYTHM ECG Electronically Signed On 12-03-2024 11:25:42 EDT by Edelmira Ramsey DO us Rachna Wood PURCHASING ENGINEER IMG ECG ORDERABLES Final Result * ECG AND WAVEFORMS - TELEMETRY (12/02/2024 7:00 PM EDT) Pathologist [facility] ECG INTERPRET Sinus Tachycardia [facility] 12/02/2024 7:00 PM EDT Narrative [facility] - 12/02/2024 7:47 PM EDT ROUTINE(CW) ME 0.10 QRS 0.05 RR 0.40 QT 0.27 QTc 0.43 See Clinical Report link for waveform capture us Unknown Provider POINT OF CARE CARDIOLOGY Final Result Performing Organization Address [facility] Co de Phone Number [facility] [address] [place] [phone] * (ABNORMAL) HEMOGLOBIN AND HEMATOCRIT (12/02/2024 6:17 PM EDT) Hgb 7.5(L) 13.7 - 17.5 g/dL 12/02/2024 6:54 PM EDT [facility] [employer] Hct 22.9(L) 40.0 - 51.0 % 12/02/2024 6:54 PM EDT [facility] [employer] Blood VENOUS BLOOD / Unknown Venipuncture / Unknown 12/02/2024 6:17 PM EDT 12/02/2024 6:25 PM EDT us Meng Chen MD HEMATOLOGY ORDERABLES Final Res ult Performing Organization Address City/[facility]/ZIP Co de Phone Number [facility] [employer] [address] [place] [address], [place] [address] * REPEAT LACTIC ACID (12/02/2024 6:17 PM EDT) Lactic Acid 1.6 0.5 - 1.9 mmol/L 12/02/2024 6:44 PM EDT [facility] Blood VENOUS BLOOD / Unknown Venipuncture / Unknown 12/02/2024 6:17 PM EDT 12/02/2024 6:25 PM EDT Meng Chen MD CHEMISTRY ORDERABLES Final Resu lt [facility] 1 [facility] , [address] [place] [phone] * (ABNORMAL) REPEAT LACTIC ACID (12/02/2024 3:49 PM EDT) Lactic Acid 2.9(H) 0.5 - 1.9 mmol/L 12/02/2024 4:29 PM EDT [facility] Blood VENOUS BLOOD / Unknown Venipuncture / Unknown 12/02/2024 3:49 PM EDT 12/02/2024 3:55 PM EDT Meng Chen MD CHEMISTRY ORDERABLES Final Resu lt Performing Organization Address City/[facility]/ZIP Co de Phone Number [facility] 1 [facility] , [address] [place] [phone] * ECG AND WAVEFORMS - TELEMETRY (12/02/2024 3:11 PM EDT) ECG INTERPRET Sinus Tachycardia [facility] Comment: notified 12/02/2024 3:11 PM EDT Narrative [facility] - 12/02/2024 3:13 PM EDT [place] ROUTINE See Clinical Report link for waveform capture Unknown Provider POINT OF CARE CARDIOLOGY Final Result [facility] [address] [place] [address] * (ABNORMAL) LACTIC ACID (12/02/2024 1:42 PM EDT) Lactic Acid 3.2(H) 0.5 - 1.9 mmol/L 12/02/2024 2:16 PM EDT [facility] Blood VENOUS BLOOD / Unknown Venipuncture / Unknown 12/02/2024 1:42 PM EDT 12/02/2024 1:52 PM EDT Meng Chen MD CHEMISTRY ORDERABLES Final Resu lt Performing Organization Address [facility] Co de Phone Number [facility] 1 [facility] , [place] [address] * BLOOD CULTURE (NO STAIN) (12/02/2024 1:42 PM EDT) Culture Result No Growth at 120 hours. BLOOD CULTURE (NO STAIN) 12/07/2024 3:00 PM EDT [facility] Blood VENOUS BLOOD / Unknown Venipuncture / Unknown 12/02/2024 1:42 PM EDT 12/02/2024 1:53 PM EDT Meng Chen MD MICROBIOLOGY - GENERAL ORDERABL ES Final Result Performing Organization Address [facility] de Phone Number [facility] 1 [facility] , [place] [address] * ECG AND WAVEFORMS - TELEMETRY (12/02/2024 12:27 PM EDT) Pathologist [facility] ECG INTERPRET Sinus Tachycardia [facility] Comment:aysmptomatic on asse ssment 12/02/2024 12:2 7 PM EDT Narrative [facility] - 12/02/2024 12:50 PM EDT [place] ROUTINE ME 0.13 QRS 0.10 RR 0.50 QT 0.32 See Clinical Report link for waveform capture Unknown Provider POINT OF CARE CARDIOLOGY Final Result Performing Organization Address City/[facility] Co de Phone Number [facility] [address] [place] [address] * (ABNORMAL) REPEAT LACTIC ACID (12/02/2024 10:59 AM EDT) Lactic Acid 2.8(H) 0.5 - 1.9 mmol/L 12/02/2024 11:16 AM EDT [facility] Blood VENOUS BLOOD / Unknown Venipuncture / Unknown 12/02/2024 10:59 AM EDT 12/02/2024 10:59 AM EDT Sundar Kessler APRN CHEMISTRY ORDERABLES Final Result Performing Organization Address [facility]/ZIP Co de Phone Number [facility] [address] [place] [address] * URINE CULTURE (NO STAIN) (12/02/2024 10:53 AM EDT) Culture No growth at 30 hours. 12/04/2024 6:38 AM EDT [facility] U[facility] URINARY BLADDER STRUCTURE / Unknown 12/02/2024 10:53 AM EDT 12/02/2024 11:12 AM EDT Sundar Kessler APRN MICROBIOLOGY - GENER AL ORDERABLES Final Result Performing Organization Address [facility]/ZIP Co de Phone Number [facility] [address] [place] [address] , [place] [address] * EXTRA SWENSON URINE CX (12/02/2024 10:53 AM EDT) Urine URINE SPECIMEN OBTAINED VIA INDWELLING URINARY CATHETER / Unknown 12/02/2024 10:53 AM EDT 12/02/2024 10:59 AM EDT Sundar Kessler APRN MICROBIOLOGY - GENER AL ORDERABLES Final Result Performing Organization Address [facility]/ZIP Co de Phone Number [facility] [address] [place] [address] * (ABNORMAL) URINALYSIS REFLEX (12/02/2024 10:53 AM [...] 12/02/2024 11:12 AM EDT [facility] [facility] UA pH 6.0 5.0 - 8.0 pH 12/02/2024 11:12 AM EDT [facility] UA Protein 1+ (30 mg/dL)(A) Negative mg/dL 12/02/2024 11:12 AM EDT [facility] UA Urobilinogen Normal <=1 mg/dL 11:12 [...] 12/02/2024 11:12 AM EDT [facility] Comment:Reference range jc d for random [...] EDT 12/02/2024 10:59 AM EDT Sundar Kessler PURCHASING ENGINEER URINE ORDERABLES Fin al Result Performing Organization Address City/[facility]/ZIP Co de Phone Number [facility] [address] , [place] [address] * BLOOD CULTURE (NO STAIN) (12/02/2024 10:51 AM EDT) Culture Result No Growth at 120 hours. BLOOD CULTURE (NO STAIN) 12/07/2024 1:00 PM EDT [facility] Blood VENOUS BLOOD / Unknown Venipuncture / Unknown 12/02/2024 10:51 AM EDT 12/02/2024 10:51 AM EDT Meng Chen MD MICROBIOLOGY - GENERAL ORDERABL ES Final Result Performing Organization Address [facility] Co de Phone Number [facility] [address] , [place] [address] * XR CHEST AP PORTABLE (12/02/2024 9:55 [...] - 17.5 g/dL 12/02/2024 10:12 AM EDT [facility] Hct 24.7(L) 40.0 - 51.0 % 12/02/2024 10:12 AM EDT [facility] Blood VENOUS BLOOD / Unknown Venipuncture / Unknown 12/02/2024 9:22 AM EDT 12/02/2024 9:48 AM EDT Peace Rea APRN HEMATOLOGY ORDERABLES Fin al Result [facility] 1 [facility] , [place] [address] * (ABNORMAL) REPEAT LACTIC ACID (12/02/2024 9:22 AM EDT) Lactic Acid 2.3(H) 0.5 - 1.9 mmol/L 12/02/2024 10:00 AM EDT [facility] Blood VENOUS BLOOD / Unknown Venipuncture / Unknown 12/02/2024 9:22 AM EDT 12/02/2024 9:46 AM EDT Sundar Kessler PURCHASING ENGINEER CHEMISTRY ORDERABLES Final Result Performing Organization Address [facility] Co de Phone Number [facility] 1 [place], [place] [phone] * (ABNORMAL) TROPONIN-T HIGH SENSITIVITY 2HR (12/02/2024 9:22 AM EDT) zd-bUpscsqsg-O 2HR 26(H) <22 ng/L 12/02/2024 10:04 AM EDT [facility] hs-cTnT 2Hr Delta from Baseline -1 <4 ng/L 12/02/2024 10:04 AM EDT [facility] Blood VENOUS BLOOD / Unknown Venipuncture / Unknown 12/02/2024 9:22 AM EDT 12/02/2024 9:46 AM EDT Narrative [facility] - 12/02/2024 10:04 AM EDT Ingestion of josé miguel doses of biotin (>5 mg/day) taken within 8 hours of drawing blood sample can interfere with this immunoassay test. Sundar Laceyluna ROMO CHEMISTRY ORDERABLES Final Result Performing Organization Address [facility] de Phone Number [facility] [address] [place] [address] * (ABNORMAL) TROPONIN-T HIGH SENSITIVITY BASELINE W/ REFLEX (12/02/2024 7:08 AM EDT) sb-uCyavheks-A 27(H) <22 ng/L 12/02/2024 7:42 AM EDT [facility] [employer] Blood VENOUS BLOOD / Unknown Venipuncture / Unknown 12/02/2024 7:08 AM EDT 12/02/2024 7:14 AM EDT Narrative [facility] - 12/02/2024 7:42 AM EDT Ingestion of josé miguel doses of biotin (>5 mg/day) taken within 8 hours of drawing blood sample can interfere with this immunoassay test. us Sundar Kessler PURCHASING ENGINEER CHEMISTRY ORDERABLES Final Result Performing Organization Address City/[facility]/ZIP Co de Phone Number [facility] 1 [facility] , [address] [place] [phone] * (ABNORMAL) REPEAT LACTIC ACID (12/02/2024 7:08 AM EDT) Lactic Acid 3.1(H) 0.5 - 1.9 mmol/L 12/02/2024 7:35 AM EDT [facility] Blood VENOUS BLOOD / Unknown Venipuncture / Unknown 12/02/2024 7:08 AM EDT 12/02/2024 7:15 AM EDT Sundar Kessler APRN CHEMISTRY ORDERABLES Final Result Performing Organization Address [facility] de Phone Number [facility] 1 [facility] , [address] [place] [phone] * EK EKG 12 LEAD (12/02/2024 7:01 AM EDT) Anatomical Region Laterality Modality Electrocardiogra phy 12/02/2024 7:17 AM EDT Impressions 12/02/2024 1:[address] 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 Test Date: 2024-12-02 Pat Name: ALEX HOFFMAN Department: DEPID Room: 7308 Gender: Male Corporate Real Estate Manager: : 1975 Requested By: SUNDAR MORENO Order Number: [id number] Reading MD: Forrest Johnston MD Measurements Intervals [place] Rate: 92 P: 46 ME: 132 QRS: 13 QRSD: 85 T: 33 QT: 367 QTc: 454 Interpretive Statements SINUS RHYTHM Electronically Signed On 12-02-2024 13:57:21 EDT by Forrest Johnston MD us Sundar Kessler APRN IMG ECG ORDERABLES F inal Result * (ABNORMAL) PROCALCITONIN (12/02/2024 5:05 AM EDT) Procalcitonin 0.62(H) <=0.49 ng/mL 12/02/2024 5:52 AM EDT [facility] Blood VENOUS BLOOD / Unknown Venipuncture / Unknown 12/02/2024 5:05 AM EDT 12/02/2024 5:11 AM EDT Narrative [facility] - 12/02/2024 5:52 AM EDT Procalcitonin <0.50 [...] to severe sepsis and/or septic shock. us Crystal Lnih Eastridge PURCHASING ENGINEER CHEMISTRY ORDERABLES Final Result Performing Organization Address [facility] Co de Phone Number [facility] 1 [facility] , [place] [address] * (ABNORMAL) LACTIC ACID (12/02/2024 5:04 AM EDT) Lactic Acid 3.5(H) 0.5 - 1.9 mmol/L 12/02/2024 5:31 AM EDT [facility] Blood VENOUS BLOOD / Unknown Venipuncture / Unknown 12/02/2024 5:04 AM EDT 12/02/2024 5:11 AM EDT Sundar Kessler APRN CHEMISTRY ORDERABLES Final Result Performing Organization Address [facility] de Phone Number [facility] 1 [facility] , [place] [address] * CREATININE BODY FLUID (12/02/2024 4:12 AM EDT) Pathologist [facility] Creatinine BF 1.15 0.67 - 1.30 mg/dL 12/02/2024 5:03 AM EDT [facility] Body Fluid ABDOMEN / Unknown Collection / Unknown 12/02/2024 4:12 AM EDT 12/02/2024 4:29 AM EDT Narrative [facility] - 12/02/2024 5:03 AM EDT A reference interval for this test has not been established for body fluid specimens. The reference range listed reflects normal concentration of this analyte in blood. Sadi Haney MD BODY FLUIDS AND STOOLS OR DERABLES Final Result Performing Organization Address [facility] Co de Phone Number [facility] 1 [facility] , [place] [address] * (ABNORMAL) CBC WITH DIFF [...] 4:21 AM EDT [facility] [place] Percent 10.4 % 12/02/2024 4:21 AM EDT [...] 0.1 x10(3)/mc L 12/02/2024 4:21 AM EDT [facility] Comment:Automated count of m etamyelocytes, myelocytes and promyelocytes. An absolute IG <0.1 is reported as 0.0. Lymph # 1.4 1.2 - 3.9 x10(3)/mc L 12/02/2024 4:21 AM EDT [facility] [place] # 2.3(H) 0.3 - 0.9 x10(3)/mc L 12/02/2024 4:21 AM EDT [facility] Eos# 0.0 0.0 - 0.5 x10(3)/mc L 12/02/2024 4:21 AM EDT [facility] Baso # 0.0 0.0 - 0.1 x10(3)/mc L 12/02/2024 4:21 AM EDT [facility] RBC Morph Consistent with Red Cell Indices no units 12/02/2024 4:21 AM EDT [facility] Blood VENOUS BLOOD / Unknown Venipuncture / Unknown 12/02/2024 3:47 AM EDT 12/02/2024 3:50 AM EDT us Sadi Haney MD HEMATOLOGY ORDERABLES Fin al Result [facility] 1 [facility] , [address] [place] [phone] * (ABNORMAL) BASIC METABOLIC PANEL (12/02/2024 3:46 AM EDT) Pathologist [facility] Sodium 136 136 - 145 mmol/L 12/02/2024 4:07 AM EDT [facility] Potassium 4.8 3.5 - 5.0 mmol/L 12/02/2024 4:07 AM EDT [facility] Chloride 103 98 - 107 mmol/L 12/02/2024 4:07 AM EDT [facility] Total CO2 17(L) 22 - 29 mmol/L 12/02/2024 4:07 AM EDT [facility] Anion Gap 16 7 - 16 mmol/L 12/02/2024 4:07 AM EDT [facility] Calcium 8.0(L) 8.6 - 10.4 mg/dL 12/02/2024 4:07 AM EDT [facility] Glucose Lvl 156(H) 70 - 99 mg/dL 12/02/2024 4:07 AM EDT [facility] BUN 21(H) 6 - 20 mg/dL 12/02/2024 4:07 AM EDT [facility] Creatinine 1.61(H) 0.67 - 1.30 mg/dL 12/02/2024 4:07 AM EDT [facility] eGFR (CKD-EPIcr 2020) 52(L) >=60 mL/min/1.7 3 m2 12/02/2024 4:07 AM EDT [facility] Comment:Estimated GFR was ca lculated using the CKD-EPIcr (2020) equation refit without race. The equation is recommended by the National Kid[employer] Foundation - [employer] [employer] Neph[employer] Task Force. Blood VENOUS BLOOD / Unknown Venipuncture / Unknown 12/02/2024 3:46 AM EDT 12/02/2024 3:50 AM EDT Peace Rea APRN CHEMISTRY ORDERABLES Nadiya l Result [place] [phone] * (ABNORMAL) GLUCOSE METER POC (12/02/2024 2:58 AM EDT) [facility] Glucose Meter POC 148(H) 70 - 100 mg/dL 12/02/2024 3:00 AM EDT [facility] Sample Type Capillary 12/02/2024 3:00 AM EDT [facility] Patient Status Non-Critical Patient 12/02/2024 3:00 AM EDT [facility] Blood BLOOD SPECIMEN / Unknown 12/02/2024 2:58 AM EDT 12/02/2024 3:00 AM EDT Sadi Haney MD POINT OF CARE TEST ORDERA BLES Final Result [address] [phone] * PATHOLOGY TISSUE REQUEST (12/01/2024 3:36 PM EDT) CASE REPORT Surgical Pathology Case: [id number] Authorizing Provider: Sadi Haney MD Collected: 12/01/2024 1536 Ordering Location: [facility] Received: 12/01/2024 1631 Pathologist: Gayle Bahena MD Specimen: Kidney, Left, Left kidney and ureter,along with bladder cuff 12/05/2024 4:20 PM EDT [facility] FINAL DIAGNOSIS Kidney and ureter, left radical nephroureterectomy with bladder cuff: - Ureter: - Noninvasive low-grade papillary urothelial carcinoma, 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 - Resection margins negative for carcinoma - Kidney and bladder cuff with chronic inflammation, negative for carcinoma. - Adrenal gland negative for carcinoma. - See synoptic report for details. 12/05/2024 4:20 PM EDT [facility] at 1620 EDT GROSS DESCRIPTION [...] 0.5 to 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 Warehouse Packer sections are submitted as follows: A1-A3 = entire mass at UPJ to include adjacent uninvolved proximal ureter A4 = remaining proximal ureter A5-A6 = dealer compliance representative dilated calyces A7-A8 equal all distal ureter with perpendicular bladder margin A9 = vascular margins from kidney A10 = all areas suggestive of adrenal parenchyma A11 = 1 bisected lymph node candidate A12 = 1 trisected lymph node candidate A13-A14 = largest lymph node candidate, trisected RIK Stover PA (ASCP) 12/05/2024 4:20 PM EDT [facility] MICROSCOPIC DESCRIPTION The microscopic examination may have been rendered in whole, or in part, by analyzing high-resolution digital images (whole slide images) on the [employer]hes[employer]FT Digital Pathology platform validated at [facility]. 12/05/2024 4:20 PM EDT [facility] BEST TISSUE BLOCK FOR ANCILLARY STUDIES A3 12/05/2024 4:20 PM T [facility] SYNOPTIC REPORT CHECKLIST URETER, RENAL [...] limited to this pathology report. 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 pN Category: pN not assigned (no nodes submitted or found) ADDITIONAL FINDINGS Pathologic Findings in Ipsilateral Nonneoplastic Renal Tissue: None identified 12/05/2024 4:20 PM EDT [facility] EMBEDDED IMAGES 12/05/2024 4:20 PM EDT [facility] Tissue LEFT KIDNEY STRUCTURE / Unknown 12/01/2024 3:36 PM EDT 12/01/2024 4:31 PM EDT Sadi Haney MD PATHOLOGY ORDERABLES Nadiya magdalena Result Performing Organization Address City/[facility]/ZIP Co de Phone Number [facility] [address] [place] [address] [address] * US ANES GUIDANCE FOR POC (12/01/2024 [...] Previous History OK 12/01/2024 9:30 AM EDT [facility] Blood VENOUS BLOOD / Unknown Venipuncture / Unknown 12/01/2024 9:22 AM EDT 12/01/2024 9:26 AM EDT us Sadi Haney MD BLOOD BANK ORDERABLES Fin al Result Performing Organization Address City/[facility]/ZIP Co de Phone Number [facility] [address] [place] [address] * ABORH (12/01/2024 9:22 AM EDT) ABORH Int B POS 12/01/2024 9:5 7 AM EDT [facility] Blood VENOUS BLOOD / Unknown Venipuncture / Unknown 12/01/2024 9:22 AM EDT 12/01/2024 9:26 AM EDT Sadi Haney MD BLOOD BANK ORDERABLES Fin al Result Performing Organization Address City/[facility]/ZIP Co de Phone Number [facility] BLOOD [address] [address] * RED BLOOD CELLS REQUEST (11/23/2024 2:10 PM EDT) Product Code [id number] [facility] BLOOD BANK Unit Number [id number] [facility]OD [facility] Crossmatch Interp Compatible [facility] BLOOD BANK Dispense Status TRANSFUSED [facility] BLOOD [facility] Blood Expiration Date [id number] [facility] BLOOD [facility] ISBT 128 Type 7300 PSYCHIATRIC BLOOD [facility] Blood Unit Volume 300 ml [facility] BLOOD [facility] BA CODING SYSTEM [id number] [facility] BLOOD [facility] Blood Type (Unit) B POS [facility] Blood 11/23/2024 2:10 PM EDT 11/23/2024 2:17 PM EDT Peace Rea APRN BLOOD PRODUCT ORDERS Nadiya l Result [facility] BLOOD [address] [id number] * RED BLOOD CELLS REQUEST (11/23/2024 2:10 PM EDT) Product Code [id number] [facility] BLOOD BANK Unit Number [id number] [facility] BLOOD BANK Crossmatch Interp Compatible [facility] BLOOD BANK Dispense Status TRANSFUSED [facility] BLOOD [facility] Blood Expiration Date [facility] BLOOD BANK ISBT 128 Type 7300 PSYCHIATRIC BLOOD BANK Blood Unit Volume 300 ml [facility] BLOOD BANK BA CODING SYSTEM [id number] [facility] BLOOD BANK Blood Type (Unit) B POS [facility] BLOOD BANK Product Code [id number] [facility] BLOOD BANK Unit Number [id number] [facility] BLOOD [facility] Crossmatch Interp Compatible [facility] BLOOD BANK Dispense Status TRANSFUSED [facility] BLOOD [facility] Blood [facility]piration Date [facility]OD [facility] ISBT 128 Type 7300 [facility] Blood Unit Volume 300 ml [facility]OD [facility] BA CODING SYSTEM [id number] [facility] Blood Type (Unit) B POS [facility]LOOD [facility] Blood 11/23/2024 2:10 PM EDT 11/23/2024 2:17 PM EDT Sadi Haney MD BLOOD PRODUCT ORDERS Nadiya l Result [facility]OD [facility] [address] [place] [address] documented in this encounter Visit Diagnoses Diagnosis Ureteral mass- Primary Unspecified disorder of kidney and ureter Preop testing Preoperative examination, unspecified Ureteral mass Unspecified disorder of kidney and ureter documented in this encounter Admitting Diagnoses Diagnosis Ureteral mass Unspecified disorder of kidney and ureter Malignant neoplasm of left ureter (HCC) Malignant neoplasm of ureter documented in this encounter Administered Medications Inactive Administered Medications - up to 1 most recent administrations Medication Order MAR Action Action Date Dose Rate Site acetaminophen (TYLENOL) suppository 650 mg 650 mg, Rectal, EVERY 4 HOURS PRN, Starting on Wed12/01/24 at 1851, Until Wed12/08/24 at 1550, Fever, Maximum adult dose of acetaminophen is 4000 mg from all sources in 24 hours., Post-op acetaminophen (TYLENOL) tablet 650 mg 650 mg, Oral, EVERY 4 HOURS PRN, Starting on Wed12/01/24 at 1851, Until Wed12/08/24 at 1550, Fever, Maximum adult dose of acetaminophen is 4000 mg from all sources in 24 hours., Post-op Given 12/08/2024 5:42 AM EDT 650 mg aspirin EC tablet 81 mg 81 mg, Oral, DAILY, First dose (after last modification) on Amelia 12/07/24 at 1045, Until Discontinued, Post-op Given 12/08/2024 [...] Code = BLACK [employer] BUPivacaine liposome (PF) (EXPAREL) 1.3 % (13.3 mg/mL) 20 mL, sodium chloride 0.9 % 20 mL injection INTRAPROCEDURE, Starting on Wed12/01/24 at 1551, Until Wed12/01/24 at 1819, Intra-op Given 12/01/2024 3:51 PM EDT 40 mL Abdominal Tissue cefUROXime (CEFTIN) tablet 500 mg 500 mg, Oral, EVERY 12 HOURS SCHEDULED (2 times per day), 10 doses, First dose on Wed12/06/24 at 1130, Last dose on Wed12/10/24 at 2100, Reason for Therapy: Infection Suspected, Indication: Pneumonia Given 12/08/2024 8:05 AM EDT 500 mg diazePAM (VALIUM) tablet 5 mg 5 [...] with lowest dose unless otherwise directed., Post-op ferrous sulfate tablet 325 mg 325 mg, [...] Given 12/06/2024 10:53 PM EDT 40 mg hydrOXYzine (VISTARIL) capsule 25 mg 25 mg, Oral, EVERY 8 HOURS PRN, Starting on Wed12/06/24 at 1102, Until Wed12/08/24 at 1550, Anxiety melatonin tablet 10 mg 10 mg, Oral, [...] phenoL (CHLORASEPTIC) 1.4 % oral spray 1 [place] 1 [place], Oral, EVERY 2 HOURS PRN, Starting on Wed12/04/24 at 2110, Until Wed12/08/24 at 1550, Sore Throat Given 12/04/2024 9:58 PM EDT 1 [place] Saccharomyces boulardii (FLORASTOR) capsule 250 mg 250 mg, Oral, 2 TIMES DAILY, First dose on Wed12/05/24 at 2315, Until Discontinued, If for feeding tube administration, open capsule/packet outside of patient's room and dissolve contents in 8-12 oz. of liquid Given 12/08/2024 8:04 AM EDT 250 mg sodium chloride 0.9% IV line flush 20-50 [...] mL 150 mL/hr sodium chloride 0.9% syringe Intravenous, EVERY 12 [...] on Wed12/07/24 at 1045, Until Discontinued, Post-op 09 (Given - Provider: Margie Diaz LPN) 0804 [...] (IV Stopped by Other - Provider: Cheyanne Tripp, LAY) cefUROXime (CEFTIN) tablet 500 mg 500 mg, Oral, EVERY 12 HOURS SCHEDULED (2 times per day), 10 doses, First dose on Wed12/06/24 at 1130, Last dose on Wed12/10/24 at 2100, Reason for Therapy: Infection Suspected, Indication: Pneumonia 1135 (Given - Provider: Yessy Oreilly RN)222 (Given - Provider: Zeinab Deutsch RN) 0832 (Given - Provider: Margie Diaz LPN)210 (Given - Provider: Virginia Landis RN) 0805 (Given - Provider: Margie Diaz LPN) ferrous [...] 225 (Given - Provider: Zeinab Deutsch RN) 0804 (Not Given - Provider: Margie Diaz LPN - Reason: Patient Declined) melatonin tablet 10 mg 10 mg, Oral, NIGHTLY, First dose on Wed12/05/24 at 2100, Until Discontinued 2253 (Given - Provider: Zeinab Deutsch RN) 2228 (Not Given - Provider: Virginia Landis RN [...] LPN)210 (Given - Provider: Virginia Landis, LAY) 0804 (Given - Provider: Margie Diaz LPN) sodium chloride 0.9% syringe Intravenous, EVERY 12 HOURS SCHEDULED (2 times per day), First dose on Wed12/05/24 at 1000, Until Discontinued, Flush with 3-5 mL saline for PERIPHERAL saline lock maintenance. 0838 (Given - Provider: Yessy Oreilly RN)222 (Given - Provider: Zeinab Deutsch RN) 0835 (Given - Provider: Margie Diaz LPN)211 (Given - Provider: Virginia Landis RN) 0900 [...] Margie Diaz LPN) PRN Medication Order 12/06/2024 12/07/202412/0812/08/2024 acetaminophen (TYLENOL) suppository 650 mg(Linked Group 2) 650 mg, Rectal, EVERY 4 HOURS PRN, Starting on Wed12/01/24 at 1851, Until Wed12/08/24 at 1550, Fever, Maximum adult dose of acetaminophen is 4000 mg from all sources in 24 hours., Post-op 512 (See Alternative - Provider: Zeinab Deutsch RN)173 (See Alternative - Provider: Yessy Oreilly RN)2252 (See Alternative - Provider: Zeinab Deutsch RN) 05 (See Alternative - Provider: Zeinab Deutsch RN)100 (See Alternative - Provider: Margie Diaz LPN)2100 (See Alternative - Provider: Virginia Landis RN) 0542 (See Alternative - Provider: Virginia Landis RN) acetaminophen (TYLENOL) tablet 650 mg(Linked Group 2) 650 mg, Oral, EVERY 4 HOURS PRN, Starting on Wed12/01/24 at 1851, Until Wed12/08/24 at 1550, Fever, Maximum adult dose of acetaminophen is 4000 mg from all sources in 24 hours., Post-op 512 (Given - Provider: Zeinab Deutsch RN)1735 (Given - Provider: Yessy Oreilly RN)2252 (Given - Provider: Zeinab Deutsch RN) 05 (Given - Provider: Zeinab Deutsch RN)100 (Given - Provider: Margie Diaz LPN)2100 (Given [...] Starting on Amelia 12/07/24 at 1100, Until 12/07/24 at 1100, Radiology Procedure, XRay/Fluoro (Contrasts) 1100 (Given - Provider: RT Idania) diazePAM (VALIUM) tablet 5 mg 5 mg, [...] PRN, Starting on Wed12/06/24 at 1048, Until Amelia 12/07/24 at 0855, Constipation, Do not crush or [...] RN)181 (See Alternative - Provider: Margie Salguero RN)225 (See Alternative - Provider: Zeinab Deutsch RN) ondansetron (ZOFRAN) tablet 4 mg(Linked Group 6) 4 mg, Oral, EVERY 4 HOURS PRN, Starting on Wed12/01/24 at 1851, Until Wed12/08/24 at 1550, Nausea, Vomiting, Post-op 0834 (Given - Provider: Yessy Oreilly RN)181 (Given - Provider: Margie Salguero RN)225 (Given - Provider: Zeinab Deutsch RN) oxyCODONE [...] phenoL (CHLORASEPTIC) 1.4 % oral spray 1 [place](Linked Group 3) 1 [place], Oral, EVERY 2 HOURS PRN, Starting on [...] oral spray 1 SprayJump to med 1 [place], Oral, EVERY 2 HOURS PRN, Starting on [...] Count Last Ordered Date First Ordered Date aspirin EC tablet 81 mg 2 12/07/202411/08 diatrizoate meglumine (HYPAQ UE) 30 % solution 175 mL 1 12/07/2024 cefUROXime (CEFTIN) tablet 500 mg 1 025 docusate sodium (COLACE) capsule 100 mg 3 0 12/06/2024 12/03/2024 ferrous sulfate tablet 325 mg 1 12/06/2024 fUROsemide (LASix) tablet 40 mg 2 12/01/2024 hydrOXYzine (VISTARIL) capsule 25 mg 1 11/09 metoprolol succinate (TOPROL -XL) XL tablet 25 mg 3 12/06/2024 12/01/2024 sodium chloride 0.9% IV line flush for blood products 40-100 mL 3 12/06/2024 12/02/2024 vancomycin (VANCOCIN) capsule 125 mg 1 11/09 melatonin tablet 10 mg 1 12/05/2024 Saccharomyces boulardii (KARRIE RASTOR) capsule 250 mg 1 12/05/2024 sodium chloride 0.9% IV line flush 20-50 mL 1 12/05/2024 sodium chloride 0.9% syringe 3 12/05/2024 11/30/2024 atorvastatin (LIPITOR) tablet 80 mg 2 12/0412/01/2024 benzocaine-menthoL (CEPACOL SORE THROAT) 15-3.6 mg 1 Lozenge 1 12/04/2024 phenoL (CHLORASEPTIC) 1.4 % oral spray 1 [place] 1 12/04/2024 diazePAM (VALIUM) tablet 5 mg 1 12/03/2024 0.9 % NaCl infusion 2 12/02/2024 12/02/19 aluminum & magnesium hydroxi de-simethicone 200-200-20 mg/5 mL suspension 30 mL 1 12/02/2024 cefTRIAXone in dextrose (MURPHY EPHIN) 1 gram/50 mL IVPB 1 g 3 12/02/2024 12/01/2024 cefTRIAXone in dextrose (MURPHY EPHIN) 2 gram/50 mL IVPB 2 g 1 12/02/2024 diazePAM (VALIUM) injection 5 mg 1 12/03/19 iopamidoL (ISOVUE-370) 370 m g iodine /mL (76 %) injection (LOW) 100 mL 1 12/02/2024 sodium chloride 0.9 % 1,000 mL IV bolus 2 0 12/02/2024 sodium chloride 0.9% syringe 10 mL 1 2024 acetaminophen (TYLENOL) oral solution 650 mg 2 12/01/2024 acetaminophen (TYLENOL) suppository 650 mg 3 12/01/2024 acetaminophen (TYLENOL) tablet 650 mg 3 bisacodyL (DULCOLAX) suppository 10 mg 1 diphenhydrAMINE (BENADRYL) i njection 12.5-25 mg 1 12/01/2024 diphenhydrAMINE (BENADRYL) t ablet 12.5-25 mg 1 12/01/2024 droPERidol (INAPSINE) injection 0.625 mg 12/01/2024 enoxaparin (LOVENOX) injection 40 mg 1 11/08 fentaNYL (SUBLIMAZE) injection 25 mcg 1 heparin (porcine) injection 5,000 Units 1 0 12/01/2024 HYDROmorphone (DILAUDID) injection 0.5 mg 1 12/01/2024 ibuprofen (CALDOLOR) 800 mg in dextrose 5% 250 mL IV infusion 1 12/01/2024 losartan (COZAAR) tablet 50 mg 1 12/01/2024 meperidine (DEMEROL) injecti on (PF) 12.5 mg 1 12/01/2024 morphine injection 2 mg 1 12/01/2024 morphine injection 3-4 mg 1 12/01/2024 morphine injection 5-6 mg 1 12/01/2024 nicotine (NICODERM CQ) 21 mg/24 hr 1 Patch 1 12/01/2024 nicotine (NICODERM CQ) patch CHECK 1 2024 ondansetron (ZOFRAN) injection 4 mg 2 12/01 ondansetron (ZOFRAN) tablet 4 mg 1 12/02/19 ondansetron (ZOFRAN-ODT) dis integrating tablet 8 mg 1 12/01/2024 oxyCODONE (ROXICODONE) immed iate release tablet 5 mg 1 12/01/2024 oxyCODONE (ROXICODONE) immed iate release tablet 5-10 mg 1 12/01/2024 pantoprazole (PROTONIX) tablet 40 mg 1 11/08 tolterodine (DETROL LA) ER capsule 4 mg 1 0 12/01/2024 acetaminophen (TYLENOL) tablet 1,000 mg 1 0 11/30/2024 lactated ringers infusion 1 11/30/2024 Lab Orders Without Results Count Last Ordered [...] documented as of this encounter Care Teams Account Processor Relationship Specialty Start Date End Date Reyna Perez APRN [facility] [address] [place] [id number] PCP - General Nurse Practitioner 10/27/24 documented as of this encounter
--- OUTSIDE RECORDS SUMMARY | 2024-12-01 11:21 | XMS_ITS | Encounter Summary ---
Author Organization [place] [address] Care Team Providers Care Chief Human Resources Officer Name Role Phone Reyna Perez Jonathan ROMO Primary Care Provider [phone] Encounter Details Date Type Department Care Team (Late st Contact Info) Description 12/01/2024 11:21 AM EDT Anesthesia Event EDG PERIOP [facility] Dr. Malloy [place] [address] Tommy Romero DO [address] [place] [address] Kathy Dong APRN [address] [place] [address] Anesthesia Record Procedure Summary Procedure Name Responsible [...] Time out 1148 Incision 1217 Quick Note [place] not level during repositioning. Re leved after [...] acknowledgement of understanding from the receiving PACU/ICU deboning team leader 1648 An Stop Meds Name Total lidocaine [...] 12/01/24; 1552; 1; Midline, Inferior; Abdomen; 10 Emirati 12/01/24 1552 by Sonja Solis RN 12/08/24 [...] 1 Attempt 1 by: Travon Kerr Title: PRISON TEACHER * Jorge Alberto Hoang MD - 12/01/2024 [...] of the block is attached/scanned to the [employer] chart. 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 Pt was scheduled to have additional PCI to LAD and circ however pt wanted a second opinion for possible CABG surgery. He was seen by CTS (Dr. Kenny) on 10/10/2024 CTS planning CABG x 2 with QUINTIN clip--> currently on hold d/t urologic malignancy. Currently surgery is scheduled at [place]--discussed with Dr Bloom and surgery will need to be moved to [place] Will reach out to CTS and ensure patient is able to hold blood thinners for surgery Patient follows Dr Andrade in [facility]--will request records--recent heart cath and office note. However per patient and spouse planning on obtaining a new forensic economist after CABG. In addition, PCP at [facility]-Dr Perez in [place]. Per patient he saw yesterday 11/23/2024. 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 Pt was scheduled to have additional PCI to LAD and circ however pt wanted a second opinion for possible CABG surgery. He was seen by CTS (Dr. Kenny) on 10/10/2024 CTS planning CABG x 2 with QUINTIN clip--> currently on hold d/t urologic malignancy. Currently surgery is scheduled at [place]--discussed with Dr Bloom and surgery will need to be moved to [place] Will reach out to CTS and ensure patient is able to hold blood thinners for surgery Patient follows Dr Andrade in [facility]--will request records--recent heart cath and office note. However per patient and spouse planning on obtaining a new forensic economist after CABG. In addition, PCP at [facility]-Dr Perez in [place]. Per patient he saw yesterday 11/23/2024. Will request office note and recent testing as well PONV Risk Score: 2. Score of 2 is Moderate Risk for PONV, at least one antiemetic indicated for prophylaxis. Cardiology Clearance Requested Chart Reviewed and patient examined PAT CONSERVATION COORDINATOR Notes Reason for visit: Cardiac: CAD [place], HTN and Coronary stents/PTCA CAD -enc smoking [...] Ureteral mass Effient & 81mg ASA PAT CONSERVATION COORDINATOR Subjective: Patient here for preoperative management prior to Procedure(s): LEFT DAVINCI ROBOTIC NEPHROURETERECTOMY, CYSTOSCOPY, TRANSURETHRAL RESECTION OF THE BLADDER TUMOR . Patient needs evaluation due to increased risk for history of URETERAL MASS [place] CAD PCI HTN PAD CAROTID STENOSIS SMOKER. [...] 09/27/2024 (VIC x 1 to RCA) at [facility]. Pt was scheduled to have additional PCI to LAD and circ however pt wanted a second opinion for possible CABG surgery. He was seen by CTS (Dr. Kenny) on 10/10/2024 CTS planning CABG x 2 with QUINTIN clip--> currently on hold d/t urologic malignancy. Currently surgery is scheduled at [place]--discussed with Dr Bloom and surgery will need to be moved to [place] Will reach out to CTS and ensure patient is able to hold blood thinners for surgery Patient follows Dr Andrade in [facility]--will request records--recent heart cath and office note. However per patient and spouse planning on obtaining a new forensic economist after CABG. In addition, PCP at [facility]-Dr Perez in [place]. Per patient he saw yesterday 11/23/2024. Will request office note and recent testing as well documented in this encounter Plan of Treatment Not on [...] 1 Attempt 1 by: Travon Kerr Title: PRISON TEACHER us Jorge Alberto Hoang MD [place] ANESTHESIA Edited Resul t - Final [facility] [address] [place] [id number] * ANE US GUIDANCE (12/01/2024 10:32 AM [...] Alberto Hoang MD ANESTHESIA ORDERABLES Final Result [facility] [address] [place], [place] [id number] documented in this encounter Visit Diagnoses Not [...] mL IVPB 1 g 1 g, Intravenous, DIRECTOR OF SUPPLY CHAIN TO O.R., 1 dose, On Wed12/01/24 at [...] mg documented in this encounter Care Teams Chief Human Resources Officer Relationship Specialty Start Date End Date Reyna Perez APRN [address] [facility] [address] [place] [id number] PCP - General Nurse Practitioner 10/27/24 documented as of this encounter
--- OUTSIDE RECORDS SUMMARY | 2024-12-22 14:00 | XMS_ITS | Encounter Summary ---
Author Organization [place] [address] Care Team Providers Care Melter Supervisor [employer] Name Role Phone Reyna Perez PLUMBING MANAGER Primary Care Provider [phone] Reason for Visit * Reason Comments Post-Operative [...] to get cardiac stents placed, would like [facility] to clear him for this. Seeing cardiology next week, they will let him know when to start blood thinner again. wants to know more about chemo pill for patient. Encounter Details Date Type Department Care Team (Late st Contact Info) Description 12/22/2024 2:00 PM EDT Office Visit SEP Urology NPT[facility] [address] [place] [address] Dorinda Rodriguez, PARandolph [address] [place] [address] Postoperative visit (Primary Dx); Malignant [...] = 0.6 oz pur e alcohol) [facility] Utilities Answer Date Recorded In the past 12 months has [employer], gas, oil, or water company threatened to shut off services in your home? No 12/04/2024 Overall Financial Resource Strain (CARDIA) Answe r Date Recorded How hard is it for you to pa y for the very basics like food, housing, medical care, and heating? Somewhat hard 12/04/2024 PHQ-2 Answer Date Recorded PHQ-2 Total Score 0 12/04/2024 [facility] - Occupational Stress Questionnaire Answer Date [...] have money to get more. Never true [facility] IP Transportation Answer D ate Recorded [...] from the original note were not included. [facility] Urology Chief Complaint: Chief Complaint Patient presents [...] Wants to get cardiacstents placed, would like [facility] to clear him for this. Seeing [...] disease) Heartburn Hyperlipidemia Hypertension Kidney mass left [place] (myocardial infarction) (HCC) 09/17/2024 Motion sickness Past Surgical History: Procedure Laterality Date BLADDER TUMOR EXCISION N/A 12/01/2024 Surgeon: Sadi Haney MD; Location: [facility] MAIN OR; Service: Urology CARDIAC CATHETERIZATION CORONARY ANGIOPLASTY WITH STENT PLACEMENT Sep 19 2022 CYSTOSCOPY 10/27/2024 Surgeon: Patricia Ellison MD; Location: [facility] MAIN OR; Service: Urology [place] CYSTOGRAM MINIMUM [...] true Transportation Needs: No Transportation Needs (12/04/2024) [facility] IP Transportation In the past 12 months, has lack of reliable transportation kept you from medical appointments, meetings, work or from getting things needed for daily living?: No Physical Activity: Inactive (12/04/2024) Exercise Vital Sign Days of Exercise per Week: 0 days Minutes of Exercise per Session: 0 min Stress: Stress Concern Present (12/04/2024) [facility] - Occupational Stress Questionnaire [...] POC Yellow Color 12/22/2024 2:02 PM EDT [facility] Appear POC Clear Clear 12/22/2024 2:02 PM EDT [facility] Gluc POC Negative Negative mg/dL 12/22/2024 2:02 PM EDT [facility] UA Bili POC Negative Negative 12/22/2024 2:02 PM EDT [facility] UA Ketones POC Negative Negative mg/dL 12/22/2024 2:02 PM EDT [facility] SG POC 1.020 1.001 - 1.035 no units 12/22/2024 2:02 PM EDT [facility] UA Blood POC Trace-Intact (A) Negative 12/22/2024 2:02 PM EDT [facility] UA pH POC 6.5 5.0 - 8.0 pH 12/22/2024 2:02 PM EDT [facility]A Protein POC Negative Negative mg/dL 12/22/2024 2:02 PM EDT [facility] UA Urobilinogen POC 0.2 0.2, 1.0 12/22/2024 2:02 PM EDT [facility] UA Nitrite POC Negative Negative 12/22/2024 2:02 PM EDT [facility]A Leuk Est POC Negative Negative 2:02 PM EDT [facility] Urine STRUCTURE OF URINARY TRACT PROPER / Unknown 12/22/2024 2:00 PM EDT 12/22/2024 2:02 PM EDT Dorinda Rodriguez PA-C POINT OF CARE TEST ORDERAB LES Final Result [facility] [address] [place] [address] documented in this encounter Visit Diagnoses Diagnosis Postoperative visit- Primary Malignant neoplasm of left ureter (HCC) Malignant neoplasm of ureter S/p nephrectomy Acquired absence of kidney C. difficile diarrhea Intestinal infection due to clostridium difficile documented in this encounter Additional Health Concerns Infection Onset Date Last Indicated Resolved Time C-diff 12/06/2024 12/06/2024 documented as of this encounter Care Teams Melter Supervisor [employer] Relationship Specialty Start Date End Date Reyna Perez APRN [address] [facility] [address] [place] [address] PCP - General Nurse Practitioner 10/27/24 documented as of this encounter
--- NOTE | 2025-01-27 11:22 | HMH.EDGENADL ---
Discharge Plan Disposition Patient Disposition: Home, Self-Care Prescriptions Prescriptions: No Action atorvastatin [Lipitor] 80 mg tablet 80 mg PO DAILY Qty: 90 1RF coenzyme Q10 [Q-Sorb Co Q-10] 100 mg capsule 100 mg PO DAILY Qty: 90 1RF Patient Comments: TAKE 1 CAPSULE BY MOUTH ONCE DAILY losartan 50 mg tablet 50 mg PO DAILY Qty: 90 3RF metoprolol succinate 25 mg tablet extended release 24 hr 25 mg PO DAILY Qty: 90 3RF tolterodine 4 mg capsule,extended release 24hr 4 mg PO DAILY furosemide [Lasix] 40 mg tablet 40 mg PO DAILY PRN prasugrel HCl 10 mg tablet 10 mg PO DAILY Qty: 30 11RF Probiotic Formula (inulin) 1 billion-250 cell-mg capsule 1 cap PO DAILY Qty: 100 10RF aspirin 81 mg tablet,delayed release (DR/EC) 81 mg PO DAILY Qty: 90 3RF cholecalciferol (vitamin D3) 25 mcg (1,000 unit) capsule 25 mcg PO DAILY PRN ondansetron HCl 4 mg tablet 4 mg PO Q8HP PRN (Reason: nausea and vomiting) fidaxomicin 200 mg tablet 200 mg PO Q48H albuterol sulfate 90 mcg/actuation aerosol powdr breath activated 2 inh inhalation Q6HP PRN (Reason: shortness of breath or wheezing) Referrals Follow up/Referrals: Reyna Perez APRN [Primary Care Provider, Family Practice] - See instructions Activity Restrictions/Add. Instructions Additional Instructions/Restrictions: Follow-up with primary care doctor and triage technician. Please return to the ER with any new, concerning, worsening symptoms. Clinical Impressions Clinical Impression: Chest pain Qualifiers: Chest pain type: unspecified Qualified Code(s): R07.9 - Chest pain, unspecified Print Language Print Language: Qatari Discharge ED Provider: Isaias Mcmahon General Adult HPI General Chief complaint: Shortness of Breath/Dyspnea Stated complaint: Shoulder pain, SOA (2 stints put in 12/28/24) Time Seen by Provider: 01/27/25 11:22 Mode of Arrival: Ambulatory Source of Information: Patient Limitations: No Limitations History of Present Illness HPI narrative: This is a 49-year-old male with a past medical history of CAD status post stenting to LAD and circumflex in December of this year and RCA in September of this year, renal cell carcinoma status post nephrectomy, presenting with shortness of breath and left shoulder pain. States that his shortness of breath has been progressively getting worse over the last few days and he developed some left shoulder/neck pain yesterday. Denies any injury. States that he did recently lift a 40 pound heavy object for the first time since his nephrectomy. States that left shoulder pain is not worse with movement. Denies any chest pain. States that they are going out of town to visit family tomorrow and wanted to make sure that he was not having a heart attack or for any other emergencies prior to leaving. Related Data Home Medications ?Medication ?Instructions ?Recorded ?Confirmed tolterodine 4 mg capsule,extended 4 mg PO DAILY 12/12/24 01/03/25 release 24 hr albuterol sulfate 90 mcg/actuation 2 inh inhalation Q6HP PRN 12/28/24 01/03/25 breath activated powder inhaler shortness of breath or wheezing fidaxomicin 200 mg tablet 200 mg PO Q48H 12/28/24 01/03/25 ondansetron HCl 4 mg tablet 4 mg PO Q8HP PRN nausea and 12/28/24 01/03/25 vomiting cholecalciferol (vitamin D3) 25 25 mcg PO DAILY PRN 01/03/25 01/03/25 mcg (1,000 unit) capsule furosemide 40 mg tablet (Lasix) 40 mg PO DAILY PRN 01/03/25 01/03/25 Previous Rx's ?Medication ?Instructions ?Recorded Bacillus coagulans-inulin 1 1 cap PO DAILY #100 caps 02/25/24 billion cell-250 mg capsule (Probiotic Formula (inulin)) aspirin 81 mg tablet,delayed 81 mg PO DAILY #90 tabs 09/04/24 release atorvastatin 80 mg tablet (Lipitor) 80 mg PO DAILY #90 tabs 10/24/24 coenzyme Q10 100 mg capsule 100 mg PO DAILY #90 caps 10/24/24 (Q-Sorb Co Q-10) losartan 50 mg tablet 50 mg PO DAILY #90 tabs 10/24/24 metoprolol succinate 25 mg 25 mg PO DAILY #90 tabs 10/24/24 tablet,extended release 24 hr prasugrel HCl 10 mg tablet 10 mg PO DAILY #30 tabs 01/03/25 Allergies Allergy/AdvReac Type Severity Reaction Status Date / Time No Known Allergies Allergy Verified 01/03/25 08:59 [facility] Disclaimer: The information contained in this section may have been updated after the patient was seen, as this information can be updated by other users. Medical History Has daytime drowsiness Snoring History of renal cell carcinoma Carcinoma of left ureter Renal cancer Anemia SOB (shortness of breath) C. difficile colitis SOBOE (shortness of breath on exertion) Fatigue Tobacco dependence GERD (gastroesophageal reflux disease) Right shoulder pain Vitamin D deficiency Diastolic dysfunction Coronary artery disease Claudication Edema of both lower extremities Dizziness Abnormal result of cardiovascular function study Abnormal stress test Family history of early CAD Chest pain Hyperlipidemia Essential hypertension Surgical History History of left nephrectomy History of heart artery stent Hx of cardiac cath Family History Grandmother Cancer Father Diabetes Heart attack Hypertension Mother Hypertension Social History Smoking Status: Former smoker alcohol intake: never current occupational status: employed Travel in the last 8 weeks?: None Have you lived/traveled outside US in past 30 days?: No Contact w/someone who lives/traveled outside US past 30 days?: No Exposure to someone with infectious disease in past 14 days?: No Do you have a fever (greater than 100.4 F or 38 C)?: No Have you tested positive for COVID-19?: No Exposed to someone with COVID-19 in past 14 days?: No Do you have a sore throat?: No Do you have a cough?: No Do you have any weakness?: No Do you have any diarrhea?: No Are you experiencing any unusual bleeding?: No Do you have any muscle aches/pain?: No Do you have any abdominal pain?: No Are you experiencing loss of taste or smell?: No Other Medical History Have you received the Flu Vaccine for this season: No Have you received the Pneumonia Vaccine: No ROS Obtained: Yes All systems reviewed & no additional complaints except as documented Physical Exam General General appearance: alert and in no apparent distress Head Head exam: atraumatic Eye Eye exam: Present normal appearance, PERRL and EOMI Neck Neck exam: Present normal inspection and full ROM Chest Chest inspection: Present symmetric chest wall rise Respiratory Respiratory exam: Present normal lung sounds bilaterally; Absent respiratory distress Cardiovascular Cardiovascular exam: Present regular rate and normal rhythm Abdominal Exam Abdominal exam: Present soft; Absent distention Extremities Exam Extremities exam: Present normal inspection Neurological Exam Neurological exam: Present alert and oriented X3 Psychiatric Psychiatric exam: Present normal affect and normal mood Skin Skin exam: Present warm and dry Medical Decision Making Medical Records Medical records reviewed: Yes I reviewed the patient's medical records. Screening: Per USPSTF and CDC recommendations, given the prevalence of disease in our region, it is our hospital?s policy to screen for HIV and viral Hepatitis for all patients aged 18 and over and those with ongoing risk factors. MR Comment: Cardiology clinic visit note from 01/03/2025 notable for coronary artery disease and history of successful stenting of ostial LAD with severe disease, reduced to 0% with 1 drug-eluting stent, as well as successful stenting of proximal dominant circumflex artery with severe disease, reduced to 0% with 1 drug-eluting stent. Ignacio Inquiry Pt receiving controlled substance: No Vital Signs: 01/27/25 11:30 01/27/25 13:19 Temperature 98.5 F 98.5 F Temperature Source Oral Pulse Rate 75 Pulse Rate [Right] 77 Respiratory Rate 20 18 Blood Pressure 136/87 Blood Pressure [Right Arm] 136/87 Blood Pressure Mean [Right Arm] 103 02 Sat by Pulse Oximetry 98 Oxygen Delivery Method Room Air Lab Data Lab Results 01/27/25 11:45: WBC 6.7, RBC 4.51 L, Hgb 13.3 L, Hct 39.7 L, MCV 88.0, MCH 29.5, MCHC 33.5, RDW 13.2, Plt Count 251, MPV 9.6, Neut % (Auto) 63.3, Lymph % (Auto) 23.7, [place] % (Auto) 10.1 H, Eos % (Auto) 2.1, Baso % (Auto) 0.4, Neut # (Auto) 4.3, Lymph # (Auto) 1.6, [place] # (Auto) 0.7, Eos # (Auto) 0.1, Baso # (Auto) 0.0, D-Dimer 0.43, Sodium 139, Potassium 3.9, Chloride 104, Carbon Dioxide 23, Anion Gap 15.9 H, BUN 13, Creatinine 0.90, Estimated Creat Clear 148, Estimated GFR 89, Est GFR ( Amer) 108, Glucose 105 H, Calcium 9.3, Total Bilirubin 0.9, AST 36, ALT 23, Alkaline Phosphatase 74, Troponin I < 0.01, Total Protein 7.7, Albumin 4.8, Globulin 2.9, Albumin/Globulin Ratio 1.7, Lipase 59 01/27/25 11:45 01/27/25 11:45 Orders (Tests/Meds): ORDERS Category Date Time Status Chest XR -- portable [XR chest portable] Stat Exams 01/27/25 11:35 Completed CBC w/Auto Diff [Complete Blood Count Auto Diff] Stat Lab 01/27/25 11:45 Completed CMP [Comprehensive Metabolic Panel] Stat Lab 01/27/25 11:45 Completed D-Dimer Stat Lab 01/27/25 11:45 Completed Lipase Stat Lab 01/27/25 11:45 Completed Troponin I Stat Lab 01/27/25 11:45 Completed ECG Data Tracing #1: I reviewed this ECG and interpreted as documented below: Normal sinus rhythm at a rate of 69, QTc 412, normal axis, no STEMI Medical Decision Narrative: In summary, this 49-year-old male presents to the emergency department today with []. Patient's comorbidities include CAD status post stenting to LAD and circumflex in December of this year and RCA in September of this year, renal cell carcinoma status post nephrectomy which are not at goal therapy and may be exacerbating symptoms and increase patient's risk of morbidity/mortality. On initial evaluation patient is afebrile, hemodynamically stable, nontoxic-appearing. Differential diagnosis includes but is not limited to ACS, pulmonary embolism, arrhythmia, aortic dissection, pneumothorax, pneumonia, anxiety. Based on these concerns, I ordered CBC, CMP, lipase, troponin, D-dimer, EKG, chest x-ray. Considered CT PE, however patient low risk for pulmonary embolism by Wells criteria. Unable to rule out by PERC criteria given age. ECG personally interpreted as noted above. Labs reviewed demonstrate troponin undetectable, D-dimer of 0.43 (CT PE not indicated), nonactionable CBC. XR independently interpreted by me demonstrates no acute cardiopulmonary pathology. HEART score 3. On reassessment was in stable condition and no acute distress. Appropriate for discharge with cardiology follow-up. Patient expressed reassurance and was in agreement with this plan. Critical Care Critical Care Time Critical Care Time: No
--- OUTSIDE RECORDS SUMMARY | 2025-01-27 11:28 | XMS_ITS | Clinical Summary ---
Author Organization [employer] [facility] Address [address] [place] [phone] Phone Care Team Providers Care Highway Traffic Control Technician Name Role Phone Unavailable Unavailable Conditions or Problems No information available. Medications No information available. Medications Administered No information available. Allergies, Adverse Reactions, Alerts No information available. Results No information available. Plan of Care No information available. Procedures No information available. Vital Signs No information available. Immunizations No information available. Advance Directives No information available.
--- NOTE | 2025-01-27 11:29 | ECG_ITS ---
APPROVED REPORT Exam: Resting ECG HR:69 bpm ECG Measurements Heart Rate 69 AXES MI 146 P 28 QRSd 94 QRS 23 QT 393 T 58 QTc 412 Conclusion SINUS RHYTHM NORMAL ECG Electronically signed by : Isaias Mcmahon, 01/27/2025 15:48:50
--- OUTSIDE RECORDS SUMMARY | 2025-01-27 11:29 | XMS_ITS | Encounter Summary ---
Author Organization [place] [address] Care Team Providers Care Audio Production Manager Name Role Phone Reyna Perez DEMETRIUS Primary Care Provider [phone] Reason for Visit * Reason Onset Date Comments Schedule Appointment 12/08/2024 Encounter Details Date Type Department Care Team (Late st Contact Info) Description 12/08/2024 Telephone SEP Urology [facility] [address] [place] [address] Dorinda Rodriguez PA-C [address] [place] [address] Schedule Appointment Social History Tobacco Use Types Packs/Day Years Used Date Smoking Tobacco: Every Day Cigarettes 1 37.2 Started: 05/10/1989 Smokeless Tobacco: Never Alcohol Use Standard Drinks/Week Comments Not Currently 0 (1 standard drink = 0.6 oz pur e alcohol) [facility] Utilities Answer Date Recorded In the past [...] Date Recorded PHQ-2 Total Score 0 12/04/2024 [facility] [place] of Occupat ional Health - Occupational Stress [...] have money to get more. Never true [facility] IP Transportation Answer D ate Recorded In [...] on file documented as of this encounter Visit Diagnoses Not on filedocumented in this encounter Additional Health Concerns Infection Onset Date Last Indicated Resolved Time C-diff 12/06/2024 12/06/2024 documented as of this encounter Care Teams Audio Production Manager Relationship Specialty Start Date End Date Reyna Perez, DEMETRIUS [address] [place] [facility] [address] [place] [phone] PCP - General Nurse Practitioner 10/27/24 documented as of this encounter
[2025-01-27 11:30] VITALS: BP 136/87; PULSE 77; RESP 20; TEMP 36.9; O2SAT 98; BMI 36.8
--- OUTSIDE RECORDS SUMMARY | 2025-01-27 11:30 | XMS_ITS | Encounter Summary ---
Author Organization [facility] [address] Care Team Providers Care Administrative Liaison Name Role Phone Reyna Perez APRN Primary Care Provider [phone] Encounter Details Date Type Department Care Team [...] 8:11 PM EDT Viri Segura RN * [place] Suicide Severity Rating Scale (Q shift for [...] on filedocumented in this encounter Care Teams Administrative Liaison Relationship Specialty Start Date End Date Reyna Perez APRN [address] [place] [address] [address] [place] [phone] PCP - General Nurse Practitioner 10/27/24 documented as of this encounter
--- OUTSIDE RECORDS SUMMARY | 2025-01-27 11:30 | XMS_ITS | Encounter Summary ---
Author Organization [place] [address] Care Team Providers Care Wellness Spa Manager Name Role Phone Reyna Perez Jonathan FLIGHT ATTENDANT RAMP Primary Care Provider [phone] Reason for Visit * Reason Onset Date Comments Medication Refill 01/07/2025 Encounter Details Date Type Department Care Team (Late st Contact Info) Description 01/10/2025 Refill SEP Urology [place] [address] [place] [address] [address] [place] [address] Shania Wu APRN [address] [place] [address] Medication Refill Social History Tobacco Use Types Packs/Day Years Used Date Smoking Tobacco: Every Day Cigarettes 1 37.2 Started: 05/10/1989 Smokeless Tobacco: Never Alcohol Use Standard Drinks/Week Comments Not Currently 0 (1 standard drink = 0.6 oz pur e alcohol) [place] Utilities Answer Date Recorded In the past 12 months has [employer], gas, oil, or water [employer] threatened to shut off services in your home? No 12/04/2024 Overall Financial Resource Strain (CARDIA) Answe r Date Recorded How hard is it for you to pa y for the very basics like food, housing, medical care, and heating? Somewhat hard 12/04/2024 PHQ-2 Answer Date Recorded PHQ-2 Total Score 0 12/04/2024 [facility] of Occupat ional Health - Occupational Stress [...] have money to get more. Never true [facility] IP Transportation Answer D ate Recorded [...] Refills Last Filled Start Date End Date tolterodine (DETROL LA) 4 mg Oral Capsule, Sust. Release 24 hrIndications:OAB (overactive bladder) Take 1 Capsule by mouth daily. 30 Capsule 01/10/2025 documented in this encounter Plan of Treatment Not on file documented as of this encounter Visit Diagnoses Diagnosis OAB (overactive bladder)- Primary Hypertonicity of bladder documented in this encounter Discontinued Medications Medication Sig Discontinue Reason Start Date End Da te tolterodine (DETROL LA) 4 mg Oral Capsule, Sust. Release 24 hr Take 1 Capsule by mouth daily. Reorder 12/09/2024 01/10/2025 documented as of this encounter Additional Health Concerns Infection Onset Date Last Indicated Resolved Time C-diff 12/06/2024 12/06/2024 documented as of this encounter Care Teams Wellness Spa Manager Relationship Specialty Start Date End Date Reyna Perez APRN [address] [facility] [address] [place] [phone] PCP - General Nurse Practitioner 10/27/24 documented as of this encounter
--- OUTSIDE RECORDS SUMMARY | 2025-01-27 11:30 | XMS_ITS | Encounter Summary ---
Author Organization [place] [address] Care Team Providers Care Carpet Or Rug Layer Helper Name Role Phone Reyna Perez DEMETRIUS Primary Care Provider [phone] Reason for Visit * Reason Onset Date Comments Information Only 12/12/2024 Encounter Details Date Type Department Care Team (Late st Contact Info) Description 12/12/2024 Telephone SEP Nurse Now [facility] [place] [address] Abner Bar, LAY Information Only Social History Tobacco Use Types Packs/Day Years Used Date Smoking Tobacco: Every Day Cigarettes 1 37.2 Started: 05/10/1989 Smokeless Tobacco: Never Alcohol Use Standard Drinks/Week Comments Not Currently 0 (1 standard drink = 0.6 oz pur e alcohol) [facility] Utilities Answer [...] Date Recorded PHQ-2 Total Score 0 12/04/2024 [facility] [place] of Occupat ional Health - Occupational Stress [...] have money to get more. Never true [facility] IP Transportation Answer D [...] blood work post hospital records via fax [phone]. documented in this encounter Plan of Treatment Not on file documented as of this encounter Visit Diagnoses Not on filedocumented in this encounter Additional Health Concerns Infection Onset Date Last Indicated Resolved Time C-diff 12/06/2024 12/06/2024 documented as of this encounter Care Teams Carpet Or Rug Layer Helper Relationship Specialty Start Date End Date Reyna Perez APRN [address] [facility] [address] [place] [phone] PCP - General Nurse Practitioner 10/27/24 documented as of this encounter
--- OUTSIDE RECORDS SUMMARY | 2025-01-27 11:30 | XMS_ITS | Encounter Summary ---
Author Organization [place] [address] Care Team Providers Care Landfill Attendant Name Role Phone Reyna Perez DEMETRIUS Primary Care Provider [phone] Encounter Details Date Type Department Care Team (Late st Contact Info) Description 10/19/2024 Results Follow-Up [facility] Surgeons [place] [address] [facility] [address] [place] [address] ABDOMEN PELVIS WO ORAL WITH IV CONTRAST Social History Tobacco Use Types Packs/Day Years Used Date Smoking Tobacco: Every Day Cigarettes 1 35.7 Started: 1990 Smokeless Tobacco: Never Alcohol Use Standard Drinks/Week Comments Not Currently 0 (1 standard drink = 0.6 oz pur e alcohol) [facility] Utilities Answer Date Recorded In the [...] Date Recorded PHQ-2 Total Score 0 12/04/2024 [facility] [place] of Occupat ional Health - Occupational Stress [...] to get more. Never true [facility] IP Transportation Answer D ate [...] 8:11 PM EDT Viri Segura RN * [place] Suicide Severity Rating Scale (Q shift for [...] documented as of this encounter Care Teams Landfill Attendant Relationship Specialty Start Date End Date Reyna Perez APRN [facility] [address] [place] [phone] PCP - General Nurse Practitioner 10/27/24 documented as of this encounter
--- OUTSIDE RECORDS SUMMARY | 2025-01-27 11:30 | XMS_ITS | Encounter Summary ---
Author Organization [place] [address] Care Team Providers Care Cement Grinding Mill Operator Name Role Phone Reyna Perez DEMETRIUS Primary Care Provider [phone] Reason for Visit * Reason Onset Date Comments Results 12/11/2024 Encounter Details Date Type Department Care Team (Late st Contact Info) Description 12/11/2024 Results Follow-Up SEP Urology [place] [address] [place] [phone] Sadi Haney MD [address] [facility] [address] [place] [address] PATHOLOGY TISSUE REQUEST Social History Tobacco Use Types Packs/Day Years Used Date Smoking Tobacco: Every Day Cigarettes 1 37.2 Started: 05/10/1989 Smokeless Tobacco: Never Alcohol Use Standard Drinks/Week Comments Not Currently 0 (1 standard drink = 0.6 oz pur e alcohol) [facility] Utilities Answer Date Recorded In the past 12 months has [employer], gas, oil, or water [employer] threatened to shut off services in your home? No 12/04/2024 Overall Financial Resource Strain (CARDIA) Answe r Date Recorded How hard is it for you to pa y for the very basics like food, housing, medical care, and heating? Somewhat hard 12/04/2024 PHQ-2 Answer Date Recorded PHQ-2 Total Score 0 12/04/2024 [facility] of Occupat ional Health - Occupational Stress [...] money to get more. Never true [facility] IP Transportation Answer D ate Recorded [...] documented as of this encounter Care Teams Cement Grinding Mill Operator Relationship Specialty Start Date End Date Reyna Perez APRN [address] [facility] [address] [place] [phone] PCP - General Nurse Practitioner 10/27/24 documented as of this encounter
--- OUTSIDE RECORDS SUMMARY | 2025-01-27 11:30 | XMS_ITS | Encounter Summary ---
Author Organization [place] [address] Care Team Providers Care Immigration Attorney Name Role Phone Reyna Perez DEMETRIUS Primary Care Provider [phone] Reason for Visit * Reason Onset Date Comments Schedule Appointment 01/03/2025 Encounter Details Date Type Department Care Team (Late st Contact Info) Description 01/03/2025 Telephone [facility] Cardiac Surgeons [place] [address] [place] [address] [address] [place] [address] Raine Guerrero MA Schedule Appointment Social History Tobacco Use Types Packs/Day Years Used Date Smoking Tobacco: Every Day Cigarettes 1 37.2 Started: 05/10/1989 Smokeless Tobacco: Never Alcohol Use Standard Drinks/Week Comments Not Currently 0 (1 standard drink = 0.6 oz pur e alcohol) [facility] Utilities Answer Date Recorded In [...] PHQ-2 Total Score 0 12/04/2024 [facility] [place] of Occupat ional Health - Occupational Stress [...] have money to get more. Never true [facility] IP [...] Telephone Encounter - Raine Guerrero MA - 01/03/2025 3:24 PM EDT Patient is canceling his appointment with Dr. Kenny. He went to [facility] with chest pains and had stents placed by Dr. Andrade. documented in this encounter Plan of Treatment Not on file documented as of this encounter Visit Diagnoses Not on filedocumented in this encounter Additional Health Concerns Infection Onset Date Last Indicated Resolved Time C-diff 12/06/2024 12/06/2024 documented as of this encounter Care Teams Immigration Attorney Relationship Specialty Start Date End Date Reyna Perez APRN [address] [facility] [address] [place] [address] PCP - General Nurse Practitioner 10/27/24 documented as of this encounter
--- OUTSIDE RECORDS SUMMARY | 2025-01-27 11:30 | XMS_ITS | Encounter Summary ---
Author Organization [place] [address] Care Team Providers Care Fixture Designer Name Role Phone Reyna Perez DEMETRIUS Primary Care Provider [phone] Encounter Details Date Type Department Care Team (Late st Contact Info) Description 10/12/2024 Results Follow-Up [facility] [place] [address] [facility] [address] [place] [address] CHEST WO CONTRAST Social History Tobacco Use Types Packs/Day Years Used Date Smoking Tobacco: Never Assessed [facility] Utilities Answer Date Recorded In the past 12 months has th [employer], gas, oil, or water company threatened to shut off services in your home? No 12/04/2024 Overall Financial Resource Strain (CARDIA) Answe r Date Recorded How hard is it for you to pa y for the very basics like food, housing, medical care, and heating? Somewhat hard 12/04/2024 PHQ-2 Answer Date Recorded PHQ-2 Total Score 0 12/04/2024 [facility] [place] of Occupat ional Health - Occupational Stress [...] have money to get more. Never true [facility] IP Transportation Answer [...] 8:11 PM EDT Viri Segura RN * Petroleum Suicide Severity Rating Scale (Q shift for [...] documented as of this encounter Care Teams Fixture Designer Relationship Specialty Start Date End Date Reyna Perez APRN [address] [facility] [address] [place] [phone] PCP - General Nurse Practitioner 10/27/24 documented as of this encounter
--- OUTSIDE RECORDS SUMMARY | 2025-01-27 11:30 | XMS_ITS | Encounter Summary ---
Author Organization [place] [address] Care Team Providers Care Jewel Hole Finish Opener Name Role Phone Reyna Perez DEMETRIUS Primary Care Provider [phone] Reason for Visit * Reason Onset Date Comments Shortness of Breath 01/26/2025 Encounter Details Date Type Department Care Team (Late st Contact Info) Description 01/26/2025 Nurse Triage [facility] Nurse Now [address] [place] [address] Clara Gutierrez RN Social History [...] Date Recorded PHQ-2 Total Score 0 12/04/2024 [facility] [place] of Occupat ional Health - Occupational Stress [...] Never true [facility] IP Transportation Answer D [...] Sign Reading Time Taken Comments Blood Pressure 139/85 01/26/2025 9:31 PM EDT pt reported Pulse 68 01/26/2025 9:31 PM EDT pt re ported Temperature - - Respiratory Rate - - Oxygen Saturation - - Inhaled Oxygen Concentration - - Weight - - Height - - Body Mass Index - - documented in this encounter Miscellaneous Notes * Telephone Encounter - Clara Gutierrez RN - 01/26/2025 9:22 PM EDT Nurse Triage Call -Chief Complaint: Spouse calling pt was seen in the ED in [place] 12/28 due to chest pain and had 2 stents placed. Had kidney surgery in November. Today pt having increased SOB for the past few days,intermittent L shoulder pain and neck pain that just started tonight. Pt took lasix yesterday had mild swelling in feet. At time of call pt was laying in bed with head propped and was short of breath whic h worsens with exertion. BP checked during call 139/85 HR 68. -Reported by: Spouse/Significant Other -Vitals: BP 139/85, HR 68 -Disposition per protocol: see physician within 4 hours -Not applicable based on clinical presentation -Follow up/Concerns: none ' Reason for Disposition [1] MILD difficulty breathing (e.g., minimal/no SOB at rest, SOB with walking, pulse <100) AND [2] NEW-onset or WORSE than normal Protocols used: Breathing [id number] documented in this encounter Plan of Treatment Not on file documented as of this encounter Visit Diagnoses Not on filedocumented in this encounter Additional Health Concerns Infection Onset Date Last Indicated Resolved Time C-diff 12/06/2024 12/06/2024 documented as of this encounter Care Teams Jewel Hole Finish Opener Relationship Specialty Start Date End Date Reyna Perez APRN [address] [place] [phone] PCP - General Nurse Practitioner 10/27/24 documented as of this encounter
--- OUTSIDE RECORDS SUMMARY | 2025-01-27 11:30 | XMS_ITS | Encounter Summary ---
Author Organization [place] [address] Care Team Providers Care Supervisor Parking Lot Name Role Phone Reyna Perez DEMETRIUS Primary Care Provider [phone] Reason for Visit * Reason Onset Date Comments Medication Question 12/10/2024 Encounter Details Date Type Department Care Team (Late st Contact Info) Description 12/10/2024 Nurse Triage [facility] Nurse Now [address] [place] [address] Kiesha Gomez, LAY Social History Tobacco Use Types Packs/Day Years Used Date Smoking Tobacco: Every Day Cigarettes 1 37.2 Started: 05/10/1989 Smokeless Tobacco: Never Alcohol Use Standard Drinks/Week Comments Not Currently 0 (1 standard drink = 0.6 oz pur e alcohol) [facility] Utilities Answer Date Recorded In [...] Date Recorded PHQ-2 Total Score 0 12/04/2024 [facility] [place] of Occupat ional Health - Occupational Stress [...] more. Never true [facility] IP Transportation Answer D ate Recorded In [...] discharge paperwork states to start losartan but supreme court justice verbally said to hold it for now. BP 149/89, P 94- patient took metoprolol this morning and BP is not improving. 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
--- OUTSIDE RECORDS SUMMARY | 2025-01-27 11:30 | XMS_ITS | Encounter Summary ---
Author [place] [address] Care Team Providers Care Primer Press Operator Name Role Phone Reyna Perez DEMETRIUS Primary Care Provider [phone] Reason for Visit * Reason Onset Date Comments Schedule Appointment 12/04/2024 Encounter Details Date Type Department Care Team (Late st Contact Info) Description 12/04/2024 Telephone [facility] [place] [address] [place] [phone] Sadi Haney MD [address] [facility] [address] [place], [place] [id number] Schedule Appointment Social History Tobacco Use Types Packs/Day Years Used Date Smoking Tobacco: Every Day Cigarettes 1 37.2 Started: 05/10/1989 Smokeless Tobacco: Never Alcohol Use Standard Drinks/Week Comments Not Currently 0 (1 standard drink = 0.6 oz pur e alcohol) [facility] Utilities Answer Date Recorded In the past 12 months has [employer], gas, oil, or water [employer] threatened to shut off services in your home? No 12/04/2024 Overall Financial Resource Strain (CARDIA) Answe r Date Recorded How hard is it for you to pa y for the very basics like food, housing, medical care, and heating? Somewhat hard 12/04/2024 PHQ-2 Answer Date Recorded PHQ-2 Total Score 0 12/04/2024 [facility] [place] of Occupat ional Health - Occupational Stress [...] true [facility] IP Transportation Answer D [...] 12/04/2024 8:33 AM EDT ----- Message from Peaec Rea APRN sent at 12/01/2024 9:17 PM [...] documented as of this encounter Care Teams Primer Press Operator Relationship Specialty Start Date End Date Reyna Perez APRN [facility] [address] [place] [phone] PCP - General Nurse Practitioner 10/27/24 documented as of this encounter
--- OUTSIDE RECORDS SUMMARY | 2025-01-27 11:30 | XMS_ITS | Encounter Summary ---
Author Organization [place] [address] Care Team Providers Care Nursing Unit Manager Name Role Phone Reyna Perez DEMETRIUS Primary Care Provider [phone] Reason for Visit * Reason Onset Date Comments Medication Management 12/09/2024 Encounter Details Date Type Department Care Team (Late st Contact Info) Description 12/09/2024 Nurse Triage [facility] Nurse Now [address] [place] [address] Clara Gutierrez RN Social History Tobacco Use Types Packs/Day Years Used Date Smoking Tobacco: Every Day Cigarettes 1 37.2 Started: [birth year]/10[birth year]1989 Smokeless Tobacco: Never Alcohol Use Standard Drinks/Week Comments Not Currently 0 (1 standard drink = 0.6 oz pur e alcohol) [facility] Utilities Answer Date Recorded In the [...] Date Recorded PHQ-2 Total Score 0 12/04/2024 [facility] [place] of Occupat ional Health - Occupational Stress [...] have money to get more. Never true [facility] IP Transportation Answer [...] documented as of this encounter Care Teams Nursing Unit Manager Relationship Specialty Start Date End Date Reyna Perez APRN [facility] [address] [place] [address] PCP - General Nurse Practitioner 10/27/24 documented as of this encounter
--- OUTSIDE RECORDS SUMMARY | 2025-01-27 11:30 | XMS_ITS | Encounter Summary ---
Author Organization [place] [address] Care Team Providers Care Extermination Inspector Name Role Phone Reyna Perez DEMETRIUS Primary Care Provider [phone] Encounter Details Date Type Department Care Team (Late st Contact Info) Description 10/20/2024 Results Follow-Up [facility] [address] [place] [address] Patricia Ellison MD [address] [place] [address] NON-FIELD COLLECTOR CYTOLOGY REQUEST Social History Tobacco Use Types [...] Date Recorded PHQ-2 Total Score 0 12/04/2024 [facility] [place] of Occupat ional Health - Occupational Stress [...] have money to get more. Never true [facility] IP Transportation Answer D ate [...] 8:11 PM EDT Viri Segura RN * [place] Suicide Severity Rating Scale (Q shift for [...] documented as of this encounter Care Teams Extermination Inspector Relationship Specialty Start Date End Date Reyna Perez APRN [address] [place] [address] [place] [phone] PCP - General Nurse Practitioner 10/27/24 documented as of this encounter
--- OUTSIDE RECORDS SUMMARY | 2025-01-27 11:31 | XMS_ITS | Clinical Summary ---
Author Organization [facility] Address [address] [place] [address] Care Team Providers Care Dry Press Operator Name Role Phone ChrisReyna Jonathan ROMO Primary Care Provider [phone] Social History Tobacco Use Types Packs/Day Years [...] 07/27/2019 Sigmoidoscopy 07/27/2019 [facility]-Colorectal Cancer Screening 07/27/2019 [facility]-Pneumococcal Vaccine: 50 + Years (1 of 1 - PCV) 2024 [facility]-Zoster Vaccines (1 of 2) 2024 [id number]-[id number] Vaccine (1 - 20 24-25 season) 2025 [facility]-Influenza Vaccine (#1) 2025 HPV Vaccines Aged [...] patient's age to complete this [place] [address] [facility] Care Teams Dry Press Operator Relationship Specialty Start Date End Date Reyna Perez APRN [address] [place] [address] PCP - General 09/15/22
--- OUTSIDE RECORDS SUMMARY | 2025-01-27 11:31 | XMS_ITS | Clinical Summary ---
Author Organization [facility] Address [address] [place], [place] [address] Phone Care Team Providers Care Member Services Representative Name Role Phone Reyna Perez APRN Primary Care Provider [phone] Allergies No known active allergies Medications aspirin [...] 10 mg by mouth daily. 5 Active prochlorperazi ne (COMPAZINE) 10 mg Oral Tablet Take 10 mg by mouth every 8 hours as needed for Nausea. 5 Active Bacillus coagulans-inul in 1 billion-250 cell-mg Oral Capsule Take by mouth daily. Active cholecalcifero l, vitamin D3, 25 mcg (1,000 unit) Oral Tablet Take 1,000 Units by mouth daily. Active Coenzyme Q10 100 mg Oral Capsule Take 1 Capsule by mouth daily. Active HYDROcodone-ac etaminophen (NORCO) 5-325 mg Oral Tablet Take 1 [...] hours as needed for Fever. 5 Active hydrOXYzine (VISTARIL) 25 mg Oral Capsule Take 1 Capsule by mouth every 8 hours as needed for Anxiety. 30 Capsule 12/08/2024 11:27 AM EDT 5 Active tolterodine (DETROL LA) 4 mg Oral Capsule, Sust. Release 24 hrIndications: OAB (overactive bladder) Take 1 Capsule by mouth daily. 30 Capsule 5 Active tolterodine (DETROL LA) 4 mg Oral Capsule, Sust. Release 24 hr Take 1 Capsule by mouth daily. 30 Capsule 12/08/2024 11:27 AM EDT 5 01/11/20 25 Discontin ued(Reord er) Active Problems Problem Noted Date Diagnosed Date C. difficile diarrhea 12/07/2024 Assessment & Plan (12/08/2024 10:05 AM EDT): - per urology on oral vanc Assessment & Plan (12/07/2024 2:47 PM EDT): - per urology on oral vanc Sepsis without acute organ dysfunction 5 Assessment & Plan (12/08/2024 10:05 AM [...] follow path Coronary artery disease invo lving mechoopda coronary artery of mechoopda heart without angina pectoris 10/10/2024 Assessment & [...] Encounters Date Type Department Care Team Description 01/26/2025 Nurse Triage [facility] Nurse Now [address] [place] [phone] Clara Gutierrez RN 01/10/2025 Refill [facility] [address] [phone] Shania Wu APRN Medication Refill 01/03/2025 Telephone [facility] Cardiac Surgeons [address] [place] [phone] Raine Guerrero MA Schedule Appointment 12/22/2024 2:00 PM EDT Office Visit [facility] NPTFTT [address] [place] [address] Dorinda Rodriguez PA-C Postoperative visit (Primary Dx); Malignant neoplasm of left ureter (HCC); S/p nephrectomy; C. difficile diarrhea 12/12/2024 Telephone [facility] Nurse Now [facility] [place] [address] Abner Bar, RN Information Only 12/11/2024 Results Follow-Up [facility] [address] [phone] Sadi Haney MD PATHOLOGY TISSUE REQUEST 12/10/2024 Nurse Triage [facility] [address] [place] [phone] Kiesha Gomez, LAY 12/09/2024 Nurse Triage [facility] [address] [place] [address] Clara Gutierrez RN 12/08/2024 Telephone [facility] NPTFTT [address] [place] [address] Dorinda Rodriguez PA-C Schedule Appointment 12/04/2024 Telephone [facility] [address] [address] Sadi Haney MD Schedule Appointment 12/01/2024 11:21 AM EDT Anesthesia Event EDG PERIOP [facility] [place] [address] Tommy Romero, Kathy Cleary, LOOM OPERATOR APPRENTICE 12/01/2024 10:35 AM EDT - 12/01/2024 4:50 PM EDT Surgery EDG PERIOP [facility] [place] [address] Sadi Haney MD DAVINCI ROBOTIC NEPHROURETERECTOMY 12/01/2024 9:50 AM EDT Ancillary Procedure EDG SAME DAY SURGERY [facility] [place] [address] Sadi Haney MD 12/01/2024 8:38 AM EDT - 12/08/2024 11:29 AM EDT Hospital Encounter [place] [address] Sadi Haney MD Preop testing (Primary Dx); Ureteral mass Discharge Disposition: Discharge/Readmit 12/01/2024 Travel 11/23/2024 12:38 PM EDT - 11/23/2024 11:59 PM EDT Hospital Encounter EDG PRE-ADMIT TESTING [facility] [place] [address] Pre-op testing (Primary Dx); Ureteral mass Discharge Disposition: Home or Self Care 11/23/2024 Travel 11/21/2024 Refill [facility] NPTFTT [address] [place] [address] Patricia Ellison MD Medication Refill 11/20/2024 Nurse Triage [facility] Nurse Now [address] [place] [phone] Gala Loya RN 11/07/2024 3:27 AM EDT - 11/07/2024 7:08 AM EDT Emergency [place] [address] [facility] [place], [place] [phone] Garo Ndiaye MD Dyspnea, unspecified type (Primary Dx) Discharge Disposition: Home or Self Care 11/07/2024 Telephone [facility] Nurse Now [address] [place] [phone] Cheyanne Rain RN Surgery Scheduling 11/07/2024 Travel 11/07/2024 Nurse Triage [facility] Nurse Now [address] [place] [phone] Renetta Jolly RN 11/05/2024 Results Follow-Up [facility] NPTT [address] [place] [address] Patricia Ellison MD NON-BRANCH MECHANIC CYTOLOGY REQUEST, PATHOLOGY TISSUE REQUEST 11/02/2024 Telephone [facility] Nurse Now [address] [place] [phone] Cheyanne Rain RN Hematuria 11/01/2024 Telephone [facility] Nurse Now [address] [place] [phone] Fito Weeks, LAY Results 10/31/2024 Telephone [facility] Cardiac Surgeons [address] [place] [address] Deb Woodall, LOOM OPERATOR APPRENTICE Dizziness 10/28/2024 Nurse Triage [facility] Nurse Now [facility] [place] [address] Tamar Alan, LAY 10/27/2024 1:38 PM EDT Anesthesia Event [facility] PERIOP [address] [place] [address] Sherita Moya MD Record, Jhoana Gutierrez DEMETRIUS 10/27/2024 1:00 PM EDT - 10/27/2024 1:55 PM EDT Surgery [facility] PERIOP [address] [place] [address] Patricia Ellison MD CYSTOSCOPY URETEROSCOPY STENT PLACEMENT OR EXCHANGE 10/27/2024 11:03 AM EDT - 10/27/2024 4:21 PM EDT Hospital Encounter FTT SAME DAY SURGERY [address] [facility] [place] [address] Patricia Ellison MD Ureteral mass Discharge Disposition: Home or Self Care 10/27/2024 Nurse Triage [facility] [address] [place] [address] Kristine Ventura RN 10/27/2024 Travel from Last 3 Months Surgical History Surgery [...] History Date Comments CAD (coronary artery disease) MO (myocardial infarction) (HCC) 09/17/2024 Hypertension Hyperlipidemia Heartburn [...] Date Recorded PHQ-2 Total Score 0 12/04/2024 [facility] - Occupational Stress Questionnaire Answer [...] have money to get more. Never true [facility] Transportation Answer D ate Recorded [...] Pulse 68 01/26/2025 9:31 PM EDT pt reported Temperature 37 C (98.6 F) 12/22/2024 1:55 PM EDT Respiratory Rate 18 12/08/2024 7:19 AM EDT Oxygen Saturation 97% 12/22/2024 1:5 5 PM EDT Inhaled Oxygen Concentration - - Weight 104.6 kg (230 lb 9.6 oz) 12/22/2024 1:55 PM EDT Height 172.7 cm (5' 8 ) 12/01/2024 8:06 PM EDT Body Mass Index 35.06 12/01/2024 8:06 PM EDT Plan of Treatment Health Maintenance Due Date Last Done Comments Annual Wellness Exam 1977 Hepatitis B Vaccine (1 of 3 - 19+ 3-dose series) 1993 Pneumococcal Vaccine 50+ (1 of 2 - PCV) 1993 Cologuard 07/27/2019 Colon Cancer Screening 07/27/2019 Colonoscopy 07/27/2019 FIT 07/27/2019 Sigmoidoscopy 07/27/2019 Virtual Colonography 07/27/2019 Zoster (1 of 2) 2024 COVID-19 Vaccine (1 - 2023-2 5 season) 2025 Influenza Vaccine (#1) 2025 Low Dose Lung Cancer Screening 10/12/2025 10/12/2024 DTaP/TDaP/Td (2 - Td or Tdap) 10/05/2034, 07/11/1996 Meningococcal B Vaccine Aged Out No l onger eligible based on patient's age to complete this topic Medical Devices Implanted Type Area Manager Fashion Device Identifier Shelf Expiration Date Model / Serial / Lot Cardiac Stent Explanted Type Area Manager Fashion Device Identifier Shelf Expiration Date Model / Serial / Lot Stent Uret [id number] Contr Dbl Pig Tapr Lpro Percuflx Cath - [id number] Implanted:Qty : 1 on 10/27/2024 by Patricia Ellison MD at [facility] Stent Left: Ureter [employer]:MICROVASIVE: UROLOGY [id number] 03/22/2027 [id number] / / [id number] Procedures Procedure Name Priority Date/Time Associated Diagnosis Comments [facility] URINALYSIS POC Routine 12/22/2024 2:00 PM EDT Postoperative visit 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 Medications: Prior to Admission medications Medication [...] Surgeon: Patricia Ellison MD; Location: [facility]; Service: Urology Allergy No Known Allergies Patient Active Problem List Diagnosis ASHD (arteriosclerotic heart disease) 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 Pneumonia. Per primary. Bear Samuel MD, [facility] 12/02/2024 6:11 PM HEMOGLOBIN AND HEMATOCRIT Routine [...] Hypertension Kidney mass left MO (myocardial infarction) ([facility]) 09/17/2024 Motion sickness Past Surgical History: Procedure Laterality Date CARDIAC CATHETERIZATION CORONARY ANGIOPLASTY WITH STENT PLACEMENT Sep 19 2022 CYSTOSCOPY 10/27/2024 Surgeon: Patricia Ellison MD; Location: [facility]; Service: Urology No Known [...] Daily AC,Sadi Haney MD, 40 mg at 12/02/2434 tolterodine [...] left ureter (HCC) Coronary artery disease of mechoopda artery of mechoopda heart with stableangina pectoris Assessment and Plan Assessment & Plan 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 Planper urology, follow path Coronary artery disease of mechoopda artery of mechoopda heart with stableangina pectoris - diffuse severe [...] EDT CYSTOSCOPY TRANSURETHRAL RESECTION BLADDER TUMOR - FULGURATION/EVACUATI ON OF CLOT 12/01/2024 11:21 AM EDT Ureteral mass Special Needs LASSITER KNIFE, HANG WATER, OLYMPUS ESU, CYSTO FIRST, ROBERT ELLISON ASSISTINGsk [place] CYSTOURETHROSCOPY W/DEST &/RMVL MED BLADDER EMERY 12/01/2024 11:21 AM EDT Ureteral mass Special Needs MAIKOL KNIFE, HANG WATER, OLYMPUS ESU, CYSTO FIRST, KCDR HAJ-HAMED ASSISTINGsk [place] LAPAROSCOPY RADICAL NEPHRECTOMY 12/01/2024 11:21 AM EDT Ureteral mass Special Needs LASSITER KNIFE, HANG WATER, OLYMPUS ESU, CYSTO FIRST, KCDR JUAN ASSISTINGsk [place] LAPAROSCOPY NEPHRECTOMY W/TOTAL URETERECTOMY 12/01/2024 11:21 AM EDT Ureteral mass Special Needs LASSITER KNIFE, HANG WATER, OLYMPUS ESU, CYSTO FIRST, KCDR HATodd-JONNIE ASSISTINGsk ANE US GUIDANCE Routine 12/01/2024 10:32 [...] AIRWAY PLACEMENT Routine 10/27/2024 2:06 PM EDT NON-BRANCH MECHANIC CYTOLOGY REQUEST Routine 10/27/2024 2:03 PM EDT Ureteral mass [place] CYSTOURETHROSCOPY WITH BIOPSY 10/27/2024 1:38 PM EDT Ureteral mass Special Needs sk CYSTOSCOPY URETEROSCOPY STENT PLACEMENT OR EXCHANGE 10/27/2024 1:38 PM EDT Ureteral mass Special Needs sk CT CHEST WO CONTRAST PIEDAD 10/12/2024 9:31 AM EDT Coronary artery disease involving mechoopda coronary artery of mechoopda heart with angina pectoris from Last 3 Months or Most Recently Relevant to Health Maintenance Results * (ABNORMAL) [facility] URINALYSIS POC (12/22/2024 2:00 PM EDT) Only the most recent of2 resultswithin the time period is included. UA Color POC Yellow Color 12/22/2024 2:02 PM EDT [facility] UA Appear POC Clear Clear 12/22/2024 2:02 PM EDT [facility] UA Gluc POC Negative Negative mg/dL 12/22/2024 2:02 PM EDT [facility] UA Bili POC Negative Negative 12/22/2024 2:02 PM EDT [facility] UA Ketones POC Negative Negative mg/dL 12/22/2024 2:02 PM EDT [facility] UA SG POC 1.020 1.001 - 1.035 no units 12/22/2024 2:02 PM EDT [facility] UA Blood POC Trace-Intact (A) Negative 12/22/2024 2:02 PM EDT [facility] UA pH POC 6.5 5.0 - 8.0 pH 12/22/2024 2:02 PM EDT [facility] UA Protein POC Negative Negative mg/dL 12/22/2024 2:02 PM EDT [facility] UA Urobilinogen POC 0.2 0.2, 1.0 12/22/2024 2:02 PM EDT [facility] UA Nitrite POC Negative Negative 12/22/2024 2:02 PM EDT [facility] UA Leuk Est POC Negative Negative 2:02 PM EDT [facility] Urine STRUCTURE OF URINARY TRACT PROPER / Unknown 12/22/2024 2:00 PM EDT 12/22/2024 2:02 PM EDT Dorinda Rodriguez PA-C POINT OF CARE TEST ORDERAB LES Final Result [facility] [address] [place] [address] * SCANNED RHYTHM STRIPS (12/09/2024 [...] 6:48 AM EDT [facility] [place] Percent 11.0 % 12/08/2024 6:48 AM EDT [facility] Eos Percent 1.9 % 12/08/2024 6:48 AM EDT [facility] Baso Percent 0.3 % 12/08/2024 6:48 AM EDT [facility] Neut # 6.7(H) 1.6 - 6.1 x10(3)/mcL 12/08/2024 6:48 AM EDT [facility], [facility] Comment:Neutrophils equals s egs plus bands IMMGRAN# 0.1 0.0 - 0.1 x10(3)/mcL 12/08/2024 6:48 AM EDT [facility] Comment:Automated count of m etamyelocytes, myelocytes and promyelocytes. An absolute IG <0.1 is reported as 0.0. Lymph # 1.3 1.2 - 3.9 x10(3)/mcL 12/08/2024 6:48 AM EDT [facility] [place] # 1.0(H) 0.3 - 0.9 x10(3)/mcL 12/08/2024 6:48 AM EDT [facility] Eos# 0.2 0.0 - 0.5 x10(3)/mcL 12/08/2024 6:48 AM EDT [facility], [facility] Baso # 0.0 0.0 - 0.1 x10(3)/mcL 12/08/2024 6:48 AM EDT [facility], [facility] Blood VENOUS BLOOD / Unknown Venipuncture / Unknown 12/08/2024 6:02 AM EDT 12/08/2024 6:35 AM EDT us Juana Shoemaker MD HEMATOLOGY ORDERABLES Final R esult [facility] [address] [facility] , [place] [address] * (ABNORMAL) BASIC METABOLIC PANEL (12/08/2024 6:02 AM EDT) Only the most recent of5 resultswithin the time period is included. Sodium 137 136 - 145 mmol/L 12/08/2024 7:09 AM EDT [facility] Potassium 3.7 3.5 - 5.0 mmol/L 12/08/2024 7:09 AM EDT [facility], [facility] Chloride 104 98 - 107 mmol/L 12/08/2024 7:09 AM EDT [facility], [facility] Total CO2 21(L) 22 - 29 mmol/L 12/08/2024 7:09 AM EDT [facility] Anion Gap 12 7 - 16 mmol/L 12/08/2024 7:09 AM EDT [facility], [facility] Calcium 9.3 8.6 - 10.4 mg/dL 12/08/2024 7:09 AM EDT [facility], [facility] Glucose Lvl 105(H) 70 - 99 mg/dL 12/08/2024 7:09 AM EDT [facility] BUN 11 6 - 20 mg/dL 12/08/2024 7:09 AM EDT [facility], [facility] Creatinine 0.96 0.67 - 1.30 mg/dL 12/08/2024 7:09 AM EDT [facility], [facility] eGFR (CKD-EPIcr 2020) 96 >=60 mL/min/1.7 3 m2 12/08/2024 7:09 AM EDT [facility], [facility] Comment:Estimated GFR was ca lculated using the CKD-EPIcr (2020) equation refit without race. The equation is recommended by the National Kidney Foundation - [place] [employer] of Nephrology Task Force. Blood VENOUS BLOOD / Unknown Venipuncture / Unknown 12/08/2024 6:02 AM EDT 12/08/2024 6:34 AM EDT us Juana Shoemaker MD CHEMISTRY ORDERABLES Final Re sult [facility] [address] [facility] , [place] [address] * ECG AND WAVEFORMS - TELEMETRY (12/07/2024 8:06 PM EDT) Only the most recent of14 resultswithin the time period is included. Pathologist [facility] ECG INTERPRET R [facility] 12/07/2024 8:06 PM EDT Narrative [facility] - 12/07/2024 8:18 PM EDT ROUTINE (BS) [place] 0.16 QRS 0.12 RR 0.65 QT 0.40 QTc 0.50 See Clinical Report link for waveform capture us Unknown Provider POINT OF CARE CARDIOLOGY Final Result [facility] [address] [place] [id number] * [place] CYSTOGRAM MINIMUM 3 VW (12/07/2024 [...] examination was performed by Rachna Eller, physician diagnostic assistant, under the supervision of Dr. Singh. A total fluoroscopy time of 1.2 minutes was used. 119 fluoroscopic spot images were saved to PACS. FINDINGS: Via Bradford catheter, 175 mL of water-soluble contrast was instilled retrograde into the urinary bladder. Imaging was performed in multiple projections. Hoop Machine Operator radiographs show a surgical drain over [...] The examination was performed by Rachna Eller,physician diagnostic assistant, under the supervision of Dr. Singh. A total fluoroscopy timeof 1.2 minutes was used. 119 fluoroscopic spot images were saved to PACS. FINDINGS: Via Bradford catheter, 175 mL of water-soluble contrast wasinstilled retrograde into the urinary bladder. Imaging was performed in multiple projections. Hoop Machine Operator radiographs show a surgical drain over [...] resultswithin the time period is included. Pathologist [facility] WBC 10.8(H) 3.7 - 10.3 x10(3)/mcL 12/07/2024 6:50 AM EDT [facility] RBC 3.23(L) 4.60 - 6.10 x10(6)/mcL 12/07/2024 6:50 AM EDT [facility] Hgb 9.7(L) 13.7 - 17.5 g/dL 12/07/2024 6:50 AM EDT [facility] Hct 29.6(L) 40.0 - 51.0 % 12/07/2024 6:50 AM EDT [facility] MCV 91.6 80.0 - 100.0 fL 12/07/2024 6:50 AM EDT [facility] MCH 30.0 26.0 - 34.0 pg 12/07/2024 6:50 AM EDT [facility] MCHC 32.8 30.7 - 35.5 g/dL 12/07/2024 [...] al Result [facility] [address] [facility] , [place] [address] * (ABNORMAL) C DIFF INTERPRETATION (12/06/2024 9:57 AM EDT) Pathologist [facility] C Diff Toxin DNA Positive(A) Negative 12/06/2024 1:18 PM EDT [facility] NAP1 Presumptive Neg Presumptive Neg 12/06/2024 1:18 PM EDT [facility] GDH Antigen Positive(A) Negative 12/06/2024 1:18 PM EDT [facility] C diff toxin A/B Positive(A) Negative 12/06/2024 1:18 PM EDT [facility] Stool RECTUM STRUCTURE / Unknown Collection / Unknown 12/06/2024 9:57 AM EDT 12/06/2024 10:05 AM EDT Narrative [facility] - 12/06/2024 1:18 PM EDT Toxin producing C diff target DNA sequences detected. Toxins A/B positive. CDI likely. Consider initiation of severity-based CDI therapy according to CDI management guidance. us Brody LINDQUIST MICROBIOLOGY - GENERAL ORDERABLE S Final Result Performing Organization Address [facility] Co de Phone Number [facility], [address] , [place] [address] * C DIFF GDH AG AND TOXIN A+B (12/06/2024 9:57 AM EDT) Stool RECTUM STRUCTURE / Unknown Collection / Unknown 12/06/2024 9:57 AM EDT 12/06/2024 10:05 AM EDT Brody LINDQUIST MICROBIOLOGY - GENERAL ORDERABLE S Final Result Performing Organization Address [facility] Co de Phone Number [facility], [address] , [address] [place] [phone] * C DIFF TOXIN DNA (12/06/2024 9:57 AM EDT) Stool RECTUM STRUCTURE / Unknown Collection / Unknown 12/06/2024 9:57 AM EDT 12/06/2024 10:05 AM EDT Brody LINDQUIST MICROBIOLOGY - GENERAL ORDERABLE S Final Result Performing Organization Address [facility] Co de Phone Number [facility] [employer], [address] , [place] [address] * (ABNORMAL) HEMOGLOBIN AND HEMATOCRIT (12/05/2024 12:22 PM EDT) Only the most recent of7 resultswithin the time period is included. Hgb 9.4(L) 13.7 - 17.5 g/dL 12/05/2024 1:04 PM EDT [facility] Hct 27.8(L) 40.0 - 51.0 % 12/05/2024 1:04 PM EDT [facility] [employer] [facility] [employer] Blood VENOUS BLOOD / Unknown Venipuncture / Unknown 12/05/2024 12:22 PM EDT 12/05/2024 12:27 PM EDT Juana Shoemaker MD HEMATOLOGY ORDERABLES Final R esult [facility] [employer] [address] [facility], [place] [address] * TRANSFUSE RED BLOOD CELLS (12/04/2024 3:25 PM EDT) Only the most recent of3 resultswithin the time period is included. Result [facility] Peace Rea APRN NURSING TREATMENT ORDERABLES - BLOOD ADMIN Edited Result - Final * (ABNORMAL) IRON+TIBC (12/04/2024 5:52 AM EDT) Pathologist [facility] Iron 27(L) 50 - 170 mcg/dL 12/05/2024 12:26 PM EDT [facility] Transferrin 160(L) 200 - 360 mg/dL 12/05/2024 12:26 PM EDT [facility] [employer] Transferrin Saturation 12(L) 20 - 50 % 12/05/2024 12:26 PM EDT [facility] TIBC 224(L) 250 - 400 mcg/dL 12/05/2024 12:26 PM EDT [facility] [employer] Blood VENOUS BLOOD / Unknown Venipuncture / Unknown 12/04/2024 5:52 AM EDT 12/04/2024 6:01 AM EDT Juana Shoemaker MD CHEMISTRY ORDERABLES Final Re sult Performing Organization Address City/[facility]/ZIP Co de Phone Number [facility] , [place] [address] * (ABNORMAL) TROPONIN-T HIGH SENSITIVITY 6 HR (12/03/2024 3:40 AM EDT) [id number] 6HR 37(H) <22 ng/L 12/03/2024 4:43 AM EDT [facility], [employer] hs-cTnT 6Hr Delta from Baseline 11 <12 ng/L 12/03/2024 4:43 AM EDT [facility] [employer] Blood VENOUS BLOOD / Unknown Venipuncture / Unknown 12/03/2024 3:40 AM EDT 12/03/2024 4:11 AM EDT Narrative [facility], [facility] - 12/03/2024 4:43 AM EDT Ingestion of josé miguel doses of biotin (>5 mg/day) taken within 8 hours of drawing blood sample can interfere with this immunoassay test. Rachna Wood APRN CHEMISTRY ORDERABLES Fin al Result Performing Organization Address [facility] Co de Phone Number [facility] , [place] [address] * (ABNORMAL) TROPONIN-T HIGH SENSITIVITY 2HR (12/02/2024 10:14 PM EDT) Only the most recent of2 resultswithin the time period is included. [id number] 2HR 33(H) <22 ng/L 12/02/2024 11:02 PM EDT [facility] [facility], [facility] hs-cTnT 2Hr Delta from Baseline 7(H) <4 ng/L 12/02/2024 11:02 PM EDT [facility] Blood VENOUS BLOOD / Unknown Venipuncture / Unknown 12/02/2024 10:14 PM EDT 12/02/2024 10:33 PM EDT Narrative [employer] [facility], [facility] - 12/02/2024 11:02 PM EDT Ingestion of josé miguel doses of biotin (>5 mg/day) taken within 8 hours of drawing blood sample can interfere with this immunoassay test. us Rachna Gutierrez Nina LOOM OPERATOR APPRENTICE CHEMISTRY ORDERABLES Fin al Result [facility] [address] [place] [address] , [place] [address] * CT ABDOMEN PELVIS W [...] to moderate amount ofretroperitoneal fluid/hemorrhage noted. Sadi Hnaey MD IM CT ORDERABLES Final R esult * (ABNORMAL) TROPONIN-T HIGH SENSITIVITY BASELINE W/ REFLEX (12/02/2024 7:34 PM EDT) Only the most recent of3 resultswithin the time period is included. qw-iMixunluf-Z 26(H) <22 ng/L 12/02/2024 8:05 PM EDT [facility] Blood VENOUS BLOOD / Unknown Venipuncture / Unknown 12/02/2024 7:34 PM EDT 12/02/2024 7:37 PM EDT Narrative [facility] - 12/02/2024 8:05 PM EDT Ingestion of josé miguel doses of biotin (>5 mg/day) taken within 8 hours of drawing blood sample can interfere with this immunoassay test. us Rachna Wood APRN CHEMISTRY ORDERABLES Fin al Result [facility] [address] [facility] [address], [address] [place] [id number] * EK EKG 12 LEAD (12/02/2024 7:13 PM EDT) Only the most recent of3 resultswithin the time period is included. Anatomical Region Laterality Modality Electrocardiogra phy 12/02/2024 7:21 PM EDT Impressions 12/03/2024 11:[address] [facility] Test Date: 2024-12-02 Pat Name: ALEXLeeann REEDERPIERRE Department: DEPID Room: [facility] Gender: Male Inspector Watch Assembly: As : 1975 Requested By: RACHNA Gutierrez Order Number: [id number] Reading MD: Edelmira Ramsey DO Measurements Intervals [place] Rate: 123 P: 131 [place]: 167 QRS: 1 QRSD: 90 T: 72 QT: 319 QTc: 457 Interpretive Statements SINUS TACHYCARDIA NONSPECIFIC ST & T-WAVE ABNORMALITY ABNORMAL RHYTHM ECG Electronically Signed On 12-03-2024 11:25:42 EDT by Edelmira Ramsey DO Narrative Procedure Note Edelmira Ramsey DO - 12/03/[address] Test Date: 2024-12-02 Pat Name: ALEX PUGH Department: DEPID Room: 7308 Gender: Male Inspector Watch Assembly: As : 1975 Requested By: RACHNA Gutierrez Order Number: [id number] Reading : Edelmira Ramsey DO Measurements Intervals [place] Rate: 123 P: 131 [place]: 167 QRS: 1 QRSD: 90 T: 72 QT: 319 QTc: 457 Interpretive Statements SINUS TACHYCARDIA NONSPECIFIC ST & T-WAVE ABNORMALITY ABNORMAL RHYTHM ECG Electronically Signed On 12-03-2024 11:25:42 EDT by Edelmira Ramsey DO us Rachna M Mollmann LOOM OPERATOR APPRENTICE IMG ECG ORDERABLES Final Result * REPEAT LACTIC ACID (12/02/2024 6:17 PM EDT) Only the most recent of5 resultswithin the time period is included. Lactic Acid 1.6 0.5 - 1.9 mmol/L 12/02/2024 6:44 PM EDT [facility] Blood VENOUS BLOOD / Unknown Venipuncture / Unknown 12/02/2024 6:17 PM EDT 12/02/2024 6:25 PM EDT Meng Chen MD CHEMISTRY ORDERABLES Final Resu lt Performing Organization Address [facility] Co de Phone Number [facility] [address] [facility] , [place] [address] * BLOOD CULTURE (NO STAIN) (12/02/2024 1:42 PM EDT) Only the most recent of2 resultswithin the time period is included. Pathologist [facility] Culture Result No Growth at 120 hours. BLOOD CULTURE (NO STAIN) 12/07/2024 3:00 PM EDT [facility] Blood VENOUS BLOOD / Unknown Venipuncture / Unknown 12/02/2024 1:42 PM EDT 12/02/2024 1:53 PM EDT Meng Chen MD MICROBIOLOGY - GENERAL ORDERABL ES Final Result Performing Organization Address [facility] Co de Phone Number [facility] [address] [place] [address] , [place] [address] * (ABNORMAL) LACTIC ACID (12/02/2024 1:42 PM EDT) Only the most recent of2 resultswithin the time period is included. Lactic Acid 3.2(H) 0.5 - 1.9 mmol/L 12/02/2024 2:16 PM EDT [facility] Blood VENOUS BLOOD / Unknown Venipuncture / Unknown 12/02/2024 1:42 PM EDT 12/02/2024 1:52 PM EDT us Meng Chen MD CHEMISTRY ORDERABLES Final Resu lt [facility] [address] [facility] , [place] [address] * (ABNORMAL) URINALYSIS REFLEX (12/02/2024 10:53 AM EDT) UA Color Red 12/02/2024 11:12 AM EDT [facility] UA Appear Cloudy(A) Clear 12/02/2024 11:12 AM EDT [facility] UA Glucose Negative Negative mg/dL 12/02/2024 11:12 AM EDT [facility] UA Ketones Negative Negative mg/dL 12/02/2024 11:12 AM EDT [facility] UA Blood 3+ (1.0 mg/dL)(A) Negative 12/02/2024 11:12 AM EDT [facility] UA pH 6.0 5.0 - 8.0 pH 12/02/2024 11:12 AM EDT [facility] UA Protein 1+ (30 mg/dL)(A) Negative mg/dL 12/02/2024 11:12 AM EDT [facility] UA Urobilinogen Normal <=1 mg/dL 11:12 AM [...] /HPF 12/02/2024 11:12 AM EDT [facility] UA Squam Epi 1+ /LPF 12/02/2024 11:12 AM EDT [facility] UA Bacteria 1+(A) Negative /HPF 12/02/2024 11:12 AM EDT [facility], [facility] Urine URINARY BLADDER STRUCTURE / Unknown 12/02/2024 10:53 AM EDT 12/02/2024 10:59 AM EDT Mariah Kessler APRN URINE ORDERABLES Fin al Result Performing Organization Address [facility]/ZIP Co de Phone Number [facility], [address] , [address] [place] [phone] * EXTRA SWENSON URINE CX (12/02/2024 10:53 AM EDT) Urine URINE SPECIMEN OBTAINED VIA INDWELLING URINARY CATHETER / Unknown 12/02/2024 10:53 AM EDT 12/02/2024 10:59 AM EDT Mariah Kessler APRN MICROBIOLOGY - GENER AL ORDERABLES Final Result Performing Organization Address [facility] Co de Phone Number [place] [phone] * URINE CULTURE (NO STAIN) (12/02/2024 10:53 AM EDT) Culture No growth at 30 hours. 12/04/2024 6:38 AM EDT [facility], [facility] Urine URINARY BLADDER STRUCTURE / Unknown 12/02/2024 10:53 AM EDT 12/02/2024 11:12 AM EDT Mariah Kessler APRN MICROBIOLOGY - GENER AL ORDERABLES Final Result Performing Organization Address [facility] Co de Phone Number [facility] [address] [facility] , [place] [address] * XR CHEST AP PORTABLE [...] 0.62(H) <=0.49 ng/mL 12/02/2024 5:52 AM EDT [facility] Blood VENOUS BLOOD / Unknown Venipuncture / Unknown 12/02/2024 5:05 AM EDT 12/02/2024 5:11 AM EDT Narrative [facility] - 12/02/2024 5:52 AM EDT Procalcitonin <0.50 [...] Mariah Kessler APRN CHEMISTRY ORDERABLES Final Result Performing Organization Address [facility]/ZIP Co de Phone Number [facility] [address] [place] [address] , [place] [address] * CREATININE BODY FLUID (12/02/2024 4:12 AM EDT) Creatinine BF 1.15 0.67 - 1.30 mg/dL 12/02/2024 5:03 AM EDT [facility] Body Fluid ABDOMEN / Unknown Collection / Unknown 12/02/2024 4:12 AM EDT 12/02/2024 4:29 AM EDT Narrative [facility] - 12/02/2024 5:03 AM EDT A reference interval for this test has not been established for body fluid specimens. The reference range listed reflects normal concentration of this analyte in blood. us Sadi Haney MD BODY FLUIDS AND STOOLS OR DERABLES Final Result [facility] [address] [facility], [place] [address] * (ABNORMAL) GLUCOSE METER POC (12/02/2024 2:58 AM EDT) Glucose Meter POC 148(H) 70 - 100 mg/dL 12/02/2024 3:00 AM EDT [facility] Sample Type Capillary 12/02/2024 3:00 AM EDT [facility] Patient Status Non-Critical Patient 12/02/2024 3:00 AM EDT [facility] Blood BLOOD SPECIMEN / Unknown 12/02/2024 2:58 AM EDT 12/02/2024 3:00 AM EDT Sadi Haney MD POINT OF CARE TEST ORDERA BLES Final Result [facility] [address] [place] [address] * PATHOLOGY TISSUE REQUEST (12/01/2024 3:36 PM EDT) Only the most recent of2 resultswithin the time period is included. 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 - Resection margins negative for carcinoma - Kidney and bladder cuff with chronic inflammation, negative for carcinoma. - Adrenal gland negative for carcinoma. - See synoptic report for details. 12/05/2024 4:20 PM EDT [facility] at 1620 EDT GROSS [...] 0.5 to 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 Blue Leather Sorter sections are submitted as follows: A1-A3 = entire mass at UPJ to include adjacent uninvolved proximal ureter A4 = remaining proximal ureter A5-A6 = product support representative dilated calyces A7-A8 equal all distal ureter with perpendicular bladder margin A9 = vascular margins from kidney A10 = all areas suggestive of adrenal parenchyma A11 = 1 bisected lymph node candidate A12 = 1 trisected lymph node candidate A13-A14 = largest lymph node candidate, trisected RIK Stover PA (ASCP) 12/05/2024 4:20 PM EDT [facility] MICROSCOPIC DESCRIPTION The microscopic examination may have been rendered in whole, or in part, by analyzing high-resolution digital images (whole slide images) on the [employer] Digital Pathology platform validated at [facility]. 12/05/2024 4:20 PM EDT [facility] BEST TISSUE BLOCK FOR ANCILLARY STUDIES A3 12/05/2024 4:20 PM EDT [facility] SYNOPTIC REPORT CHECKLIST URETER, RENAL PELVIS: Resection [...] limited to this pathology report. 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 pN Category: pN not assigned (no nodes submitted or found) ADDITIONAL FINDINGS Pathologic Findings in Ipsilateral Nonneoplastic Renal Tissue: None identified 12/05/2024 4:20 PM EDT [facility] EMBEDDED IMAGES 12/05/2024 4:20 PM EDT [facility] Tissue LEFT KIDNEY STRUCTURE / Unknown 12/01/2024 3:36 PM EDT 12/01/2024 4:31 PM EDT Sadi Haney MD PATHOLOGY ORDERABLES Nadiya nichols Result [facility] [address] [place] [address] [facility] [address] [place] [id number] * INTRAOP AIRWAY PLACEMENT (12/01/2024 11:33 AM EDT) Narrative [facility] - 12/01/2024 11:33 AM EDT [...] 1 Attempt 1 by: Travon Kerr Title: CELL REPAIRER us Jorge Alberto Hoang MD [place] ANESTHESIA Edited Resul t - Final [facility] [address] [place] [address] * ANE US GUIDANCE (12/01/2024 10:32 AM EDT) Narrative [facility] - 12/01/2024 10:32 AM EDT [...] ANESTHESIA ORDERABLES Final Result Performing Organization Address [facility] Co de Phone Number [facility] [address] [place] [phone] * US ANES GUIDANCE FOR POC (12/01/2024 [...] Previous History OK 12/01/2024 9:30 AM EDT [facility] Blood VENOUS BLOOD / Unknown Venipuncture / Unknown 12/01/2024 9:22 AM EDT 12/01/2024 9:26 AM EDT us Sadi Haney MD BLOOD BANK ORDERABLES Fin al Result Performing Organization Address [facility] Co de Phone Number [facility] [address] [address] * ABORH (12/01/2024 9:22 AM EDT) Only the most recent of2 resultswithin the time period is included. ABORH Int B POS 12/01/2024 9:5 7 AM EDT [facility] Blood VENOUS BLOOD / Unknown Venipuncture / Unknown 12/01/2024 9:22 AM EDT 12/01/2024 9:26 AM EDT us Sadi Haney MD BLOOD BANK ORDERABLES Fin al Result Performing Organization Address [facility] [place] [address] * RED BLOOD CELLS REQUEST (11/23/2024 2:10 PM EDT) Only the most recent of2 resultswithin the time period is included. [facility] Product Code [id number] [facility] B[facility]OD B[facility] Unit Number [id number] [facility] Crossmatch Interp Compatible [facility] Dispense Status TRANSFUSED [facility] Blood Expiration Date [id number] [facility] ISBT 128 Type 7300 [facility] Blood Unit Volume 300 ml [facility] BA CODING SYSTEM [id number] [facility] BLOOD [facility] Blood Type (Unit) B POS [facility] Blood 11/23/2024 2:10 PM EDT 11/23/2024 2:17 PM EDT us Peace Rea LOOM OPERATOR APPRENTICE BLOOD PRODUCT ORDERS Nadiya l Result Performing Organization Address [facility] [place] [address] * SURGERY DATE (11/23/2024 2:10 PM EDT) [facility] Surgery Date (1) Complete 11/23/2024 2:31 PM EDT [facility] Blood VENOUS BLOOD / Unknown Venipuncture / Unknown 11/23/2024 2:10 PM EDT 11/23/2024 2:17 PM EDT Susan Grossman LOOM OPERATOR APPRENTICE BLOOD BANK ORDERABLES Fi nal Result Performing Organization Address [facility] [place] [address] * ANTIBODY SCREEN IGG (11/23/2024 2:10 PM EDT) [facility] ABSC IgG Int Negative 11/23/2024 3:13 PM EDT [facility] Blood VENOUS BLOOD / Unknown Venipuncture / Unknown 11/23/2024 2:10 PM EDT 11/23/2024 2:17 PM EDT us Suasn Grossman APRN BLOOD BANK ORDERABLES Fi nal Result [facility] [address] [place] [phone] * SCANNED EKG (11/07/2024 10:27 AM EDT) [...] <=500 ng/mL FEU 11/07/2024 4:26 AM EDT [facility] Comment:This is an automated latex [...] AM EDT 11/07/2024 3:54 AM EDT Narrative [facility] - 11/07/2024 4:26 AM EDT For patients between the ages of 50 - 75, an age-adjusted D-Dimer cut-off in combination with non-high clinical probability may be considered for the exclusion of venous thromboembolism (calculation = age x 10). CARLOS ENRIQUE Barger, et al. [facility]. 2017;166(5):361-363 ANAID Contreras, et al. [facility] 2015;(163):701-711. Matt Johnson, et al. BERTIN. 2014;(11):6991-5406. us Garo Ndiaye MD HEMATOLOGY ORDERABLES Final Re sult [facility] [address] [place] [address] * NT PROBNP (11/07/2024 3:52 AM EDT) NT Pro-BNP 53 <=138 pg/mL 11/07/2024 4:13 AM EDT [facility] Blood VENOUS BLOOD / Unknown Venipuncture / Unknown 11/07/2024 3:52 AM EDT 11/07/2024 3:55 AM EDT Narrative [facility] - 11/07/2024 4:13 AM EDT [...] Ndiaye MD CHEMISTRY ORDERABLES Final Res ult [facility] [address] [place] [address] * (ABNORMAL) COMPREHENSIVE METABOLIC PANEL (11/07/2024 3:52 AM EDT) Sodium 136 136 - 145 mmol/L 11/07/2024 4:13 AM EDT [facility] Potassium 4.5 3.5 - 5.0 mmol/L 11/07/2024 4:13 AM EDT [facility] Chloride 104 98 - 107 mmol/L 11/07/2024 4:13 AM EDT [facility] Total CO2 21(L) 22 - 29 mmol/L 11/07/2024 4:13 AM EDT [facility] Anion Gap 11 7 - 16 mmol/L 11/07/2024 4:13 AM EDT [facility] Calcium 9.5 8.6 - 10.4 mg/dL 11/07/2024 4:13 AM EDT [facility] Glucose Lvl 104(H) 70 - 99 mg/dL 11/07/2024 4:13 AM EDT [facility] BUN 18 6 - 20 mg/dL 11/07/2024 4:13 AM EDT [facility] Creatinine 1.24 0.67 - 1.30 mg/dL 11/07/2024 4:13 AM EDT [facility] Albumin 4.4 3.5 - 5.2 gm/dL 11/07/2024 4:13 AM EDT [facility] Total Protein 7.1 6.4 - 8.3 gm/dL 11/07/2024 4:13 AM EDT [facility] Bili Total 0.3 0.2 - 1.4 mg/dL 11/07/2024 4:13 AM EDT [facility] ALT 20 <=41 U/L 11/07/2024 4:13 AM EDT [facility] AST 20 <=40 U/L 11/07/2024 4:13 AM EDT [facility] Alk Phos 127 40 - 129 U/L 11/07/2024 4:13 AM EDT [facility] eGFR (CKD-EPIcr 2020) 71 >=60 mL/min/1.7 3 m2 11/07/2024 4:13 AM EDT [facility] Comment:Estimated GFR was ca lculated using the CKD-EPIcr (2020) equation refit without race. The equation is recommended by the National Kidney Foundation - [place] [employer] of Nephrology Task Force. Blood VENOUS BLOOD / Unknown Venipuncture / Unknown 11/07/2024 3:52 AM EDT 11/07/2024 3:55 AM EDT us Garo Ndiaye MD CHEMISTRY ORDERABLES Final Res ult [facility] [address] [place] [address] * INTRAOP AIRWAY PLACEMENT (10/27/2024 2:06 PM EDT) Narrative [facility] - 10/27/2024 2:06 PM EDT Phuong Clark CRNA 10/27/2024 2:07 PM Intraop Airway Placement: Date/Time: 10/27/2024 2:06 PM Induction type: IV Mask size: Standard adult Pre-Oxygenation: BMI guided pre-O2 Mask ventilation: Not attempted Airway type: LMA Device size: 5 Secured by: Tape Placement verified: End tidal CO2 and Symmetric chest wall motion Condition: Atraumatic and Unchanged Insertion attempts: 1 Title: FARZANA Sherita Moya MD [place] ANESTHESIA Final R esult Performing Organization Address [facility]/ZIP Co de Phone Number [facility] [address] [place] [address] * NON-BRANCH MECHANIC CYTOLOGY REQUEST (10/27/2024 2:03 PM EDT) CASE REPORT Non-gynecologic Cytology Case: [id number] Authorizing Provider: Patricia Ellison MD Collected: 10/27/2024 1403 Ordering Location: [facility] Received: 10/27/2024 1415 Pathologist: Jerome Hickman MD Specimen: Urethra, urine cytology 10/30/2024 1:34 PM EDT [facility] NON-BRANCH MECHANIC CYTOLOGY FINAL DIAGNOSIS Catheterized urine, left ureter: - Negative for high-grade urothelial carcinoma. 10/30/2024 1:34 PM EDT [facility] at 1334 EDT EMBEDDED IMAGES 10/30/2024 1:34 PM EDT [facility] MICROSCOPIC DESCRIPTION Microscopic examination is performed and the findings corroborate the diagnosis. 10/30/2024 1:34 PM EDT [facility] Gross Description Urine, Rec'd 10ml of bloody fluid. 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 PROCEDURE COMMENTS: Multi-detector CT of [...] disease of nativecoronary artery with unspecified angina [id number] COMPARISON: None. PROCEDURE COMMENTS: Multi-detector CT of [...] Final Resu lt from Last 3 Months or Most Recently Relevant to Health Maintenance Additional Health Concerns Infection Onset Date Last Indicated C-diff 12/06/2024 12/06/2024 Insurance JOSE PPO Member Subscriber Plan / Payer ( fective 2023-Present) Name:Alex Pugh Relation to Subscriber:Self Name:Alex Pugh Payer ID:[id number] ([facility]) Type:Not on file Address: [address] [facility] [address] [place] [address] JOSE PPO Member Subscriber Plan / Payer ( fective 2023-Present) Name:Alex Pugh Relation to Subscriber:Self Name:Alex Pugh Payer ID:[id number] ([facility]) Type:Not on file Address: [id number] [place] [address] Advance Directives For more information, please contact: [phone] * Full Code (Latest Code Status on File) Date Activated Date Inactivated Comments 12/01/2024 6:51 PM 12/08/2024 3:55 PM Care Teams Member Services Representative Relationship Specialty Start Date End Date Reyna Perez APRN [facility] [address] [place] [address] PCP - General Nurse Practitioner 10/27/24
--- NOTE | 2025-01-27 11:35 | XR_ITS ---
PROCEDURE INFORMATION: Exam: XR Chest Exam date and time: 01/27/2025 11:47 AM Age: 49 years old Clinical indication: Pain; Shortness of breath; Other: Cp; Additional info: Chest pain TECHNIQUE: Imaging protocol: Radiologic exam of the chest. Views: 1 view. COMPARISON: CT ANGIO CHEST PE PROTOCOL 12/28/2024 5:25 AM FINDINGS: Lungs: Mild patchy opacities in both lung bases likely represent atelectasis or infection. Mild increased interstitial opacities in both lungs likely represents mild pulmonary edema. Pleural spaces: Unremarkable. No pleural effusion. No pneumothorax. Heart/Mediastinum: Unremarkable. No cardiomegaly. Bones/joints: Unremarkable. IMPRESSION: Mild patchy opacities in both lung bases likely represent atelectasis or infection. Mild increased interstitial opacities in both lungs likely represents mild pulmonary edema.
[2025-01-27 11:55] LABS: Hematocrit 39.7 % (42.0-52.0); Hemoglobin 13.3 g/dL (14.1-18.0); Immature Granulocytes % 0.4 %; Mean Corpuscular HGB Conc 33.5 g/dL (31.8-35.4); Mean Corpuscular Hemoglobin 29.5 pg (27.0-31.2); Mean Corpuscular Volume 88.0 fl (80-94); Nucleated Red Blood Cells % 0 %; Platelet Count 251 K/mm3 (142-424); Red Blood Count 4.51 M/mm3 (4.60-6.20); Red Cell Distribution Width-SD 43.0 fL; White Blood Count 6.7 K/mm3 (4.8-10.8)
[2025-01-27 12:01] LABS: Albumin Level 4.8 g/dl (3.5-5.0); Chloride 104 mmol/L (98-107); Potassium 3.9 mmoL/L (3.5-5.1); Sodium 139 mmol/L (136-145)
[2025-01-27 12:03] LABS: Alanine Aminotransferase 23 U/L (12-78); Alkaline Phosphatase 74 U/L (38-126); Anion Gap 15.9 mEq/L (5-15); Aspartate Amino Transferase 36 U/L (17-59); Bilirubin,Total 0.9 mg/dl (0.2-1.3); Blood Urea Nitrogen 13 mg/dl (9-20); Carbon Dioxide 23 mmol/L (22.0-30.0); Creatinine Clearance Estimated 148 mL/min (50-200); Creatinine,Serum 0.90 mg/dl (0.66-1.25); Estimated Glomerular Filt Rate 89 ml/min (>60); GFR (African American) 108 ML/MIN (>60)
[2025-01-27 12:04] LABS: Albumin/Globulin Ratio 1.7 (1.1-1.8); Calcium 9.3 mg/dl (8.4-10.2); Globulin 2.9 g/dL (1.3-3.2); Glucose 105 mg/dl (74-100); Lipase 59 U/L (23-300); Total Protein,Serum 7.7 g/dl (6.3-8.2)
[2025-01-27 12:08] LABS: D-Dimer 0.43 ug/mL (0.0-0.5)
[2025-01-27 12:18] LABS: Troponin I < 0.01 ng/ml (0.00-0.034)
[2025-01-27 13:19] VITALS: BP 136/87; PULSE 75; RESP 18; TEMP 36.9; O2SAT 98
== END 2025-01-27 13:21 | disposition home or self-care (01) ==
PROVIDERS: Emergency Provider Student in an Organized Health Care Education/Training Program; PCP Nurse Practitioner
DX: R07.89 Other chest pain (principal); K21.9 Gastro-esophageal reflux disease without esophagitis; E78.5 Hyperlipidemia, unspecified; I10 Essential (primary) hypertension; I25.10 Atherosclerotic heart disease of native coronary artery without angina pectoris
CPT/HCPCS: 71045; 80053; 83690; 84484; 85025; 85378; 93005; 99283; 99285

== ENCOUNTER 2025-02-14 15:00 | Outpatient (CLI) | payer MEDICAID, SELFPAY ==
[2025-02-14 20:41] LABS: Hematocrit 42.2 % (42.0-52.0); Hemoglobin 13.8 g/dL (14.1-18.0); Immature Granulocytes % 0.5 %; Mean Corpuscular HGB Conc 32.7 g/dL (31.8-35.4); Mean Corpuscular Hemoglobin 28.6 pg (27.0-31.2); Mean Corpuscular Volume 87.6 fl (80-94); Nucleated Red Blood Cells % 0 %; Platelet Count 301 K/mm3 (142-424); Red Blood Count 4.82 M/mm3 (4.60-6.20); Red Cell Distribution Width-SD 41.9 fL; White Blood Count 7.7 K/mm3 (4.8-10.8)
[2025-02-14 21:11] LABS: Hemoglobin A1C 5.4 % (4.0-6.0)
[2025-02-14 21:36] LABS: Alanine Aminotransferase 27 U/L (12-78); Albumin Level 4.4 g/dl (3.5-5.0); Albumin/Globulin Ratio 1.9 (1.1-1.8); Alkaline Phosphatase 143 U/L (38-126); Anion Gap 17.1 mEq/L (5-15); Aspartate Amino Transferase 23 U/L (17-59); Bilirubin,Total 0.7 mg/dl (0.2-1.3); Blood Urea Nitrogen 10 mg/dl (9-20); Calcium 9.1 mg/dl (8.4-10.2); Carbon Dioxide 24 mmol/L (22.0-30.0); Chloride 101 mmol/L (98-107); Creatinine,Serum 1.10 mg/dl (0.66-1.25); Estimated Glomerular Filt Rate 71 ml/min (>60); GFR (African American) 86 ML/MIN (>60); Globulin 2.3 g/dL (1.3-3.2); Glucose 93 mg/dl (74-100); Potassium 4.1 mmoL/L (3.5-5.1); Sodium 138 mmol/L (136-145); Total Protein,Serum 6.7 g/dl (6.3-8.2)
[2025-02-14 21:44] LABS: NT Pro Brain Natriuretic Pep. 88.8 pg/mL (0-125)
--- OUTSIDE RECORDS SUMMARY | 2025-02-16 01:40 | XMS_ITS | Clinical Summary ---
Author Organization [employer] [facility] Address [address] [place] [phone] Phone Care Team Providers Care Environmental Specialist Name Role Phone Unavailable Unavailable Conditions or Problems No information available. Medications No information available. Medications Administered No information available. Allergies, Adverse Reactions, Alerts No information available. Results No information available. Plan of Care No information available. Procedures No information available. Vital Signs No information available. Immunizations No information available. Advance Directives No information available.
--- OUTSIDE RECORDS SUMMARY | 2025-02-16 01:40 | XMS_ITS | Clinical Summary ---
Author Organization Healthcare Address [address] [place] [address] Care Team Providers Care Probate Judge Name Role Phone ChrisReyna Jonathan ROMO Primary Care Provider [phone] Social History Tobacco Use Types Packs/Day Years [...] 2024 UKY-Zoster Vaccines (1 of 2) 2024 [id number] Vaccine (1 - 20 24-25 season) 2025 [...] patient's age to complete [place] [address] [facility] Care Teams Probate Judge Relationship Specialty Start Date End Date Reyna Perez APRN [address] [place] [address] PCP - General 09/15/22
== END 2025-02-14 23:59 ==
LOC: LAB.DROPOF 02-16 01:39
PROVIDERS: PCP Nurse Practitioner; Visit Provider Nurse Practitioner
DX: I25.10 Atherosclerotic heart disease of native coronary artery without angina pectoris (principal); I10 Essential (primary) hypertension; R05.9 Cough, unspecified
CPT/HCPCS: 80053; 83036; 83880; 85025; 87070; 87205

== ENCOUNTER 2025-02-15 09:56 | Outpatient (CLI) | payer MEDICAID, SELFPAY ==
--- NOTE | 2025-02-15 10:00 | XR_ITS ---
FINAL REPORT CLINICAL HISTORY: SOBOE, cough COMPARISON: 01/27/2025 FINDINGS: CHEST 2 VIEW The heart is stable in size. The lung mortensen demonstrate no significant interval change in the chronic interstitial opacities. There is no pneumothorax. Osseous structures unremarkable. The support devices are in good position. IMPRESSION: There has been no significant interval change. Continued follow-up is recommended. Reviewed, Interpreted and Dictated by Josafat Alan MD Transcribed by Rupal Foster Authenticated and [facility]
--- NOTE | 2025-02-15 10:00 | XR_ITS ---
FINAL REPORT CLINICAL HISTORY: bilateral low back pain with bilateral sciatica COMPARISON: None FINDINGS: Three views of the lumbar spine were obtained. The pedicles are intact. There is mild diffuse degenerative disc disease, which is moderate at the thoracolumbar junction. There is facet hypertrophy. There is no acute fracture. There is no significant subluxation. IMPRESSION: Degenerative change without acute fracture. Reviewed, Interpreted and Dictated by Josafat Alan MD Transcribed by Rupal Foster Authenticated and . [facility]
== END 2025-02-15 23:59 | disposition home or self-care (01) ==
LOC: RAD 09:57
PROVIDERS: PCP Nurse Practitioner; Visit Provider Nurse Practitioner
DX: M47.26 Other spondylosis with radiculopathy, lumbar region (principal); R06.02 Shortness of breath; R05.9 Cough, unspecified
CPT/HCPCS: 71046; 72100

== ENCOUNTER 2025-02-23 09:11 | Outpatient (CLI) | payer MEDICAID, SELFPAY ==
--- NOTE | 2025-02-23 09:30 | CA_ITS ---
APPROVED REPORT EXAM: Comprehensive 2D, Doppler, and color-flow Echocardiogram Inspector [employer]: Faby Faith RDCS Ht: 5 ft 8 in Wt: 249lbs BSA: 2.24 BP: 110/60 mmHg Indications: SOA CAD M-Mode Dimensions RVDd 1.17 cm (0.9-2.6) LA Diam 2.73 cm (1.9-4.0) LVDd 5.48 cm (3.5-5.7) LVDs 3.63 cm (3.5-5.7) IVSd 0.78 cm (0.6-1.1) PWd 0.71 cm (0.6-1.1) EF (Teich) 62.00% FS 33.80% EDV (Teich) 146.20 mL ESV (Teich) 55.50 mL LV Diastology E Decel Time 190 (160-240 msec) E/A Ratio 1.0 Aortic Valve FAHEEM Index 1.16 cm2/m2 AoV Peak Juan Luis. 136.0 (50-130 cm/s) AO Peak GR. 7.40 mmHg AO Mean GR. 3.70 (<5 mmHg) AO VTI 27.9 (18-25 cm) FAHEEM (VTI) 2.66 (2.5-4.5 cm2) Mitral Valve MV E Max Juan Luis. 80.0 (40-130 cm/s) MV A Velocity 82.0 (40-130 cm/s) E/A Ratio 0.97 MV PHT 56.0 ms Left Ventricle The left ventricle is normal size. Left ventricular systolic function is normal. The left ventricular ejection fraction is within the normal range. There is normal left ventricular wall thickness. There is normal LV segmental wall motion. The left ventricular diastolic function is normal. LVEF is 55% Right Ventricle The right ventricle is normal size. The right ventricular systolic function is normal. Atria The left atrium size is normal. The right atrium size is normal. There is no color Doppler evidence of interatrial shunt. Aortic Valve The aortic valve is mildly thickened. There is no hemodynamically significant aortic valvular stenosis. No aortic regurgitation is present. Mitral Valve The mitral valve is normal in structure. No evidence of mitral valve stenosis. Trace mitral regurgitation is present. Tricuspid Valve The tricuspid valve leaflets are thin and pliable. Trace tricuspid regurgitation. There is insufficient TR jet to estimate RVSP. Pulmonic Valve The pulmonary valve is grossly normal in structure. Trace pulmonic valve regurgitation is present. Great Vessels The aortic root is normal in size. IVC is normal in size and collapses >50% with inspiration. Pericardium There is no pericardial effusion. Other Information Study Quality: Fair Conclusion Normal biventricular systolic function. No significant valvular stenosis or regurgitation. Electronically signed by : Elana Christianson MD 03/01/2025 12:27:24
== END 2025-02-23 23:59 | disposition home or self-care (01) ==
LOC: RT 09:11
PROVIDERS: PCP Nurse Practitioner; Visit Provider Nurse Practitioner
DX: I25.10 Atherosclerotic heart disease of native coronary artery without angina pectoris (principal); Z95.5 Presence of coronary angioplasty implant and graft
CPT/HCPCS: 93306

== ENCOUNTER 2025-04-02 14:48 | Outpatient (CLI) | payer MEDICAID, SELFPAY ==
--- OUTSIDE RECORDS SUMMARY | 2025-03-19 10:40 | XMS_ITS | Encounter Summary ---
Author Organization [place] [address] Care Team Providers Care Fountain Supervisor Name Role Phone Reyna Perez DEMETRIUS Primary Care Provider [phone] Reason for Visit * Reason Comments Follow Up Patient states he sarkar s a stitch just hanging out on his belly still where his tube was. Patient states he is still having bladder spasms here and there, But overall everything else is good. 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 Never true [facility] IP Transportation Answer D ate Recorded [...] Sign Reading Time Taken Comments Blood Pressure 118/80 03/19/2025 11:14 AM EST Pulse 77 03/19/2025 11:14 AM EST Temperature 37 C (98.6 F) 03/19/2025 11:14 AM EST Respiratory Rate - - Oxygen Saturation 97% 03/19/2025 11: 14 AM EST Inhaled Oxygen Concentration - - Weight 117.1 kg (258 lb 3.2 oz) 025 11:14 AM EST Height - - Body Mass Index 39.26 12/01/2024 8:06 PM EDT documented in this encounter Progress Notes * Sadi Haney MD - 03/19/2025 10:40 AM EST Images from the original note were not included. [facility] Urology Established Male E&M Ernst Keaton 1975 Assessment/Orders: Ernst was seen today for follow up. Diagnoses and all orders for this visit: Malignant neoplasm of left ureter (HCC) Other orders - SEP URINALYSIS POC PLAN: 1. Malignant neoplasm of left ureter (HCC) (Primary) S/p left RNU 11/2024, healed well Had a remnant of the silk suture that was used for the drain and it was removed in the office today Discussed need for surveillance with CTU and cysto to detect recurrence early, he is amenable Will schedule office cysto, CTU has been ordered Return: No follow-ups on file. Approximately 25 minutes spent with the patient with more than half of it in counseling and coordination of care. Questions were answered to the patient's satisfaction. Chief Complaint(s): Chief Complaint Patient presents with Follow Up Patient states he has a stitch just hanging out on his belly still where his tube was. Patient states he is still having bladder spasms here and there, But overall everything else is good. HPI: 49 y.o. male is being seen in follow-up for above. Please refer to earlier note(s) for details. Interval history: reports a suture at the drain site No specialty comments available. Results for orders placed or performed in visit on 03/19/25 SEP URINALYSIS POC Result Value Ref Range UA Color POC Yellow Color UA Appear POC Clear Clear UA Gluc POC Negative Negative mg/dL UA Bili POC Negative Negative UA Ketones POC Negative Negative mg/dL UA SG POC 1.010 1.001 - 1.035 no units UA Blood POC Negative Negative UA pH POC 6.0 5.0 - 8.0 pH UA Protein POC Negative Negative mg/dL UA Urobilinogen POC 0.2 0.2, 1.0 UA Nitrite POC Negative Negative UA Leuk Est POC Negative Negative Past Medical History: Reviewed and no significant change from last visit Current Medications[1] Allergies[2] ROS All other systems reviewed and negative except as stated in HPI PHYSICAL EXAM: Constitutional: Vitals Signs: BP 118/80 (BP Location: Left arm, Patient Position: Sitting) Pulse 77 Temp 98.6 ??F (37 ??C) (Forehead) Wt 258 lb 3.2 oz (117.1 kg) SpO2 97% BMI 39.26 kg/m?? Appearance: No acute distress, comfortable at rest Gastointestinal: soft, non-tender; bowel sounds normal; no masses, no organomegaly Surgical scars: yes, well healed. Silk suture at the drain site Respiratory: Clear to air entry bilaterally Cardiac: Regular rate and rhythm, heart sounds normal Data: Results for orders placed or performed in visit on 03/19/25 SEP URINALYSIS POC Result Value Ref Range UA Color POC Yellow Color UA Appear POC Clear Clear UA Gluc POC Negative Negative mg/dL UA Bili POC Negative Negative UA Ketones POC Negative Negative mg/dL UA SG POC 1.010 1.001 - 1.035 no units UA Blood POC Negative Negative UA pH POC 6.0 5.0 - 8.0 pH UA Protein POC Negative Negative mg/dL UA Urobilinogen POC 0.2 0.2, 1.0 UA Nitrite POC Negative Negative UA Leuk Est POC Negative Negative Labs: Lab results were reviewed in [facility] and pertinent positives are: No results found for: PSA Lab Results Component Value Date CREATININE 0.96 12/08/2024 BUN 11 12/08/2024 NA 137 12/08/2024 K 3.7 12/08/2024 CL 104 12/08/2024 CO2 21 (L) 12/08/2024 Imaging: Imaging studies (both written report and images on file) were reviewed in [facility] and pertinent positives are: No results found for this or any previous visit. No results found for this or any previous visit. No results found for this or any previous visit. No results found for this or any previous visit. Results for orders placed during the hospital encounter of 12/01/24 CT ABDOMEN PELVIS W CONTRAST Narrative CT ABDOMEN AND PELVIS WITH CONTRAST, 12/02/2024 8:21 PM CLINICAL HISTORY: Postoperative anemia. Evaluate for bleed. COMPARISON: CT abdomen/pelvis 10/19/2024. PROCEDURE COMMENTS: Multidetector volumetric scanning of the abdomen and pelvis with multiplanar reformatting. Iodinated contrast injected intravenously as documented in [facility] along with radiodense GI contrast. Automated exposure [...] is no lymphadenopathy or acute osseous abnormality. Impression Status post left nephrectomy. Small to moderate amount of retroperitoneal fluid/hemorrhage noted. Existing Medical Record: Progress Notes, Consults and miscellaneous records were reviewed in [facility] and pertinent positives are: see synopsis Outside paper records reviewed if applicable Sadi Haney MD, PhD [facility] 03/19/2025 12:12 PM [1] Current Outpatient Medications Medication Sig Dispense Refill acetaminophen 325 mg Oral Tab Take 2 Tablets by mouth every 4 hours as needed for Fever. aspirin 81 mg Oral Tablet, Delayed Release (E.C.) Take 81 mg by mouth daily. atorvastatin (LIPITOR) 80 mg Oral Tablet Take 80 mg by mouth daily. Bacillus coagulans-inulin 1 billion-250 cell-mg Oral Capsule Take by mouth daily. Coenzyme Q10 100 mg Oral Capsule Take 1 Capsule by mouth daily. fUROsemide (LASIX) 40 mg Oral Tablet Take 40 mg by mouth daily. hydrOXYzine (VISTARIL) 25 mg Oral Capsule Take 1 Capsule by mouth every 8 hours as needed for Anxiety. (Patient taking differently: Take 25 mg by mouth every 8 hours as needed for Anxiety. Patient takes when he needs not often tho.) 30 Capsule 0 lansoprazole (PREVACID) 30 mg Oral Capsule, Delayed Release(E.C.) Take 30 mg by mouth 2 times daily. losartan (COZAAR) 50 mg Oral Tablet Take 50 mg by mouth daily. prasugreL HCl (EFFIENT) 10 mg Oral Tablet Take 10 mg by mouth daily. cholecalciferol, vitamin D3, 25 mcg (1,000 unit) Oral Tablet Take 1,000 Units by mouth daily. (Patient not taking: Reported on 03/19/2025) famotidine (PEPCID) 40 mg Oral Tablet Take 40 mg by mouth 2 times daily. (Patient not taking: Reported on 03/19/2025) HYDROcodone-acetaminophen (NORCO) 5-325 mg Oral Tablet Take 1 Tablet by mouth every 6 hours as needed for Acute Pain > 3 Days Medically Necessary (R52) or Acute Pain (R52). (Patient not taking: Reported on 03/19/2025) 12 Tablet 0 metoprolol succinate (TOPROL-XL) 25 mg Oral Tablet Sustained Release 24 hr Take 25 mg by mouth daily. (Patient not taking: Reported on 03/19/2025) nicotine (NICODERM CQ) 21 mg/24 hr TD Patch [address] 1 Patch onto the skin daily. (Patient not taking: Reported on 03/19/2025) prochlorperazine (COMPAZINE) 10 mg Oral Tablet Take 10 mg by mouth every 8 hours as needed for Nausea. (Patient not taking: Reported on 03/19/2025) tolterodine (DETROL LA) 4 mg Oral Capsule, Sust. Release 24 hr Take 1 Capsule by mouth daily. (Patient not taking: Reported on 03/19/2025) 30 Capsule 0 No current facility-administered medications for this visit. [2] No Known Allergies documented in this encounter Plan of Treatment Upcoming Encounters Date Type Department Care Team (Late st Contact Info) Description 05/20/2025 3:00 PM EST Appointment [facility] [address] [place] [address] Dorinda Rodriguez [address] [place] [address] 05/22/2025 2:20 PM EST Procedure visit [facility] [place] [address] [place] [address] [address] [place] [address] Sadi Haney MD [address] [facility] [address] [place] [address] documented as of this encounter Procedures Procedure Name Priority Date/Time Associated Diagnosis Comments SEP URINALYSIS POC Routine 03/19/2025 11 :02 AM EST Malignant neoplasm of left ureter (HCC) documented in this encounter Results * SEP URINALYSIS POC (03/19/2025 11:02 AM EST) UA Color POC Yellow Color 03/19/2025 11:05 AM EST [facility] UA Appear POC Clear Clear 03/19/2025 11:05 AM EST [facility] UA Gluc POC Negative Negative mg/dL 03/19/2025 11:05 AM EST [facility] UA Bili POC Negative Negative 03/19/2025 11:05 AM EST [facility] UA Ketones POC Negative Negative mg/dL 03/19/2025 11:05 AM EST [facility] UA SG POC 1.010 1.001 - 1.035 no units 03/19/2025 11:05 AM EST [facility] UA Blood POC Negative Negative 03/19/2025 11:05 AM EST [facility] UA pH POC 6.0 5.0 - 8.0 pH 03/19/2025 11:05 AM EST [facility] UA Protein POC Negative Negative mg/dL 03/19/2025 11:05 AM EST [facility] UA Urobilinogen POC 0.2 0.2, 1.0 03/19/2025 11:05 AM EST [facility] UA Nitrite POC Negative Negative 03/19/2025 11:05 AM EST [facility] UA Leuk Est POC Negative Negative 11:05 AM EST [facility] Urine STRUCTURE OF URINARY TRACT PROPER / Unknown 03/19/2025 11:02 AM EST 03/19/2025 11:05 AM EST us Sadi Haney MD POINT OF CARE TEST ORDERA BLES Final Result [facility] [address] [place] [address] documented in this encounter Visit Diagnoses Diagnosis Malignant neoplasm of left ureter (HCC)- Primary Malignant neoplasm of ureter documented in this encounter Additional Health Concerns Infection Onset Date Last Indicated Resolved Time C-diff 12/06/2024 12/06/2024 documented as of this encounter Care Teams Fountain Supervisor Relationship Specialty Start Date End Date Reyna Perez APRN [address] [facility] [address] [place] [phone] PCP - General Nurse Practitioner 10/27/24 documented as of this encounter
--- NOTE | 2025-04-02 14:52 | XR_ITS ---
FINAL REPORT CLINICAL HISTORY: SOB COMPARISON: 02/15/2025 FINDINGS: PA and lateral views of the chest were obtained. The cardiac and mediastinal silhouettes are within normal limits. The lungs are clear. There is no pleural effusion or pneumothorax. No acute osseous abnormality is identified. IMPRESSION: No radiographic evidence of acute cardiac or pulmonary disease. Reviewed, Interpreted and Dictated by Julia Ball MD Transcribed by Mayra Vela Authenticated and [facility]
--- OUTSIDE RECORDS SUMMARY | 2025-04-02 14:53 | XMS_ITS | Clinical Summary ---
Author Organization [employer] [facility] Address [address] [place] [phone] Phone Care Team Providers Care Director Of Employer Services Name Role Phone Unavailable Unavailable Conditions or Problems No information available. Medications No information available. Medications Administered No information available. Allergies, Adverse Reactions, Alerts No information available. Results No information available. Plan of Care No information available. Procedures No information available. Vital Signs No information available. Immunizations No information available. Advance Directives No information available.
--- OUTSIDE RECORDS SUMMARY | 2025-04-02 14:53 | XMS_ITS | Encounter Summary ---
Author Organization [place] [address] Care Team Providers Care Manager Forms Name Role Phone Reyna Perez Jonathan FURNITURE MOVER HELPER Primary Care Provider [phone] Reason for Visit * Reason Comments Medication Refill Encounter Details Date Type Department Care Team (Late st Contact Info) Description 02/19/2025 Refill [facility] [address] [place] [address] Shania Wu APRN [address] [place] [address] Medication Refill Social History Tobacco Use Types Packs/Day Years Used Date Smoking Tobacco: Every Day Cigarettes 1 37.4 Started: 05/10/1989 Smokeless Tobacco: Never Alcohol Use Standard Drinks/Week Comments Not Currently 0 (1 standard drink = 0.6 oz pur e alcohol) [facility] Utilities Answer Date Recorded In the past 12 months has [employer], gas, oil, or water [employer] threatened to shut off services in your home? No 12/04/2024 Overall Financial Resource Strain (CARDIA) Answe r Date Recorded How hard is it for you to pa y for the very basics like food, housing, medical care, and heating? Somewhat hard 12/04/2024 PHQ-2 Answer Date Recorded PHQ-2 Total Score 0 12/04/2024 [facility] [place] of Occupat ional Health - Occupational Stress [...] have money to get more. Never true [facility]N [facility] IP Transportation Answer D ate Recorded [...] 1 Capsule by mouth daily. 30 Capsule 02/19/2025 documented in this encounter Plan of Treatment Upcoming Encounters Date Type Department Care Team (Late st Contact Info) Description 05/20/2025 3:00 PM EST Appointment [facility] [address] [facility] [place] [address] Dorinda Rodriguez, PA-C [address] [place] [address] 05/22/2025 2:20 PM EST Procedure visit [facility] [place] [address] [place] [address] [address] [place] [address] Sadi Haney MD [address] [facility] [address] [place] [address] documented as of this encounter Visit Diagnoses Diagnosis OAB (overactive bladder) Hypertonicity of bladder documented in this encounter Discontinued Medications Medication Sig Discontinue Reason Start Date End Da te tolterodine (DETROL LA) 4 mg Oral Capsule, Sust. Release 24 hrIndications:OAB (overactive bladder) Take 1 Capsule by mouth daily. 01/10/2025 02/19/2025 documented as of this encounter Additional Health Concerns Infection Onset Date Last Indicated Resolved Time C-diff 12/06/2024 12/06/2024 documented as of this encounter Care Teams Manager Forms Relationship Specialty Start Date End Date Reyna Perez, DEMETRIUS [address] [place] [address] [address] [place] [id number] PCP - General Nurse Practitioner 10/27/24 documented as of this encounter
--- OUTSIDE RECORDS SUMMARY | 2025-04-02 14:54 | XMS_ITS | Clinical Summary ---
Author Organization Healthcare Address [address] [place] [address] Care Team Providers Care Early Childhood Teacher Name Role Phone ChrisReyna Jonathan ROMO Primary Care Provider [phone] Social History Tobacco Use Types Packs/Day Years Used Date Smoking Tobacco: Never Assessed Sex and Gender Information Value Date Recorded Sex Assigned at Not on file Legal Sex Male 3:50 PM EDT Gender Identity Not on file Sexual Orientation Not on file Plan of Treatment Health Maintenance Due Date Last Done Comments [facility]-Depression Screening 1974 [facility]-/Child/Adol SDOH Screenings 1974 [facility]- SDOH Screenings 1992 [...] 2024 [facility]-Zoster Vaccines (1 of 2) 2024 [id number] Vaccine (1 - 20 25-26 season) 2025 [facility]-Influenza Vaccine (#1) 2025 HPV [...] patient's age to [place] [address] [facility] Care Teams Early Childhood Teacher Relationship Specialty Start Date End Date Reyna Perez APRN [address] [place] [address] PCP - General 09/15/22
--- OUTSIDE RECORDS SUMMARY | 2025-04-02 14:54 | XMS_ITS | Clinical Summary ---
Author Organization [facility] Address [address] [place], [place] [address] Phone Care Team Providers Care Dross Skimmer Name Role Phone Reyna Perez APRN Primary Care Provider [phone] Allergies No known active allergies Medications aspirin [...] (R52) or Acute Pain (R52). 12 Tablet Active Additional Information Patient not taking.Reason: Pt electing to not take the medication, Reported on 03/19/2025 acetaminophen 325 mg Oral Tab Take 2 Tablets by mouth every 4 hours as needed for Fever. Active hydrOXYzine (VISTARIL) 25 mg Oral Capsule Take 1 Capsule by mouth every 8 hours as needed for Anxiety. 30 Capsule 12/08/2024 11:27 AM EDT Active Additional Information Patient taking differently:25 mg Oral EVERY 8 HOURS PRN, Anxiety,Patient takes when he needs not often tho., Reported on 03/19/2025 tolterodine (DETROL LA) 4 mg Oral Capsule, Sust. Release 24 hrIndications:O AB (overactive bladder) Take 1 Capsule by mouth daily. 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) 02/23/2025 Telephone [facility] Urology NPTFTT [address] [place] [address] Dorinda Rodriguez PA-C Follow-up 02/19/2025 Refill [facility] [address] [address] Shania Wu APRN Medication Refill 01/26/2025 Nurse Triage [facility] Nurse Now [address] [place] [address] Clara Gutierrez RN 01/10/2025 Refill [facility] Urology [address] [address] Shania Wu APRN Medication Refill 01/03/2025 Telephone [facility] Cardiac Surgeons [address] [place] [address] Raine Guerrero MA Schedule Appointment from Last 3 Months Surgical History Surgery [...] CYSTOGRAM MINIMUM 3 VW 12/07/2024 EDG XRAY KIDNEY REMOVAL 12/01/2024 Medical History Medical History Date Comments CAD (coronary artery disease) ND (myocardial infarction) (HCC) 09/17/2024 Hypertension Hyperlipidemia Heartburn Kidney mass left Motion sickness Anxiety Cancer (HCC) GERD (gastroesophageal reflux disease) Anemia 12/01/2024 Family History Medical History Relation Name Comments [...] drink = 0.6 oz pur e alcohol) [facility] Utilities Answer Date Recorded In the past 12 months has [employer] gas, oil, or water [employer] threatened to shut off services in your home? No 12/04/2024 Overall Financial Resource Strain (CARDIA) Answe r Date Recorded How hard is it for you to pa y for the very basics like food, housing, medical care, and heating? Somewhat hard 12/04/2024 PHQ-2 Answer Date Recorded PHQ-2 Total Score 0 12/04/2024 [facility] [place] of Occupat ional Health - Occupational Stress [...] more. Never true [facility] IP Transportation Answer D ate Recorded [...] on file Sexual Orientation Not on file Last Filed Vital Signs Vital Sign Reading Time Taken Comments Blood Pressure 118/80 03/19/2025 11:14 AM EST Pulse 77 03/19/2025 11:14 AM EST Temperature 37 C (98.6 F) 03/19/2025 11:14 AM EST Respiratory Rate 18 12/08/2024 7:19 AM EDT Oxygen Saturation 97% 03/19/2025 11: 14 AM EST Inhaled Oxygen Concentration - - Weight 117.1 kg (258 lb 3.2 oz) 025 11:14 AM EST Height 172.7 cm (5' 8 ) 12/01/2024 8:06 PM EDT Body Mass Index 39.26 12/01/2024 8:06 PM EDT Plan of Treatment Upcoming Encounters Date Type Department Care Team (Late st Contact Info) Description 05/20/2025 3:00 PM EST Appointment [facility] [address] [place] [place] [address] Dorinda Rodriguez, PAWinifredC [address] [place] [address] 05/22/2025 2:20 PM EST Procedure visit [facility] [place] [address] [facility] [address] [place] [address] Sadi Haney MD [address] [facility] [address] [place] [address] Health Maintenance Due Date Last Done Comments Annual Wellness Exam 1977 Hepatitis B Vaccine (1 of 3 - 19+ 3-dose series) 1993 Cologuard 07/27/2019 Colon Cancer Screening 07/27/2019 Colonoscopy 07/27/2019 FIT 07/27/2019 Sigmoidoscopy 07/27/2019 Virtual Colonography 07/27/2019 Pneumococcal Vaccine 50+ (1 of 1 - PCV) 2024 Zoster (1 of 2) 2024 COVID-19 Vaccine (1 - 2024-2 6 season) 2025 Influenza Vaccine (#1) 2025 DTaP/TDaP/Td (2 - Td or Tdap) 10/05/2034, 07/11/1996 Low Dose Lung Cancer Screening Discontinued 10/12/2024 Meningococcal B Vaccine Aged Out No l onger eligible based on patient's age to complete this topic Medical Devices Implanted Type Area [employer] Device Identifier Shelf Expiration Date Model / Serial / Lot Cardiac Stent Explanted Type [employer] Device Identifier Shelf Expiration Date Model / Serial / Lot Stent Uret [id number] Contr Dbl Pig Tapr Lpro Percuflx Cath - [id number] Implanted:Qty : 1 on 10/27/2024 by Patricia Ellison MD at [facility] Stent Left: Ureter [employer] SCI:MICROVASIVE: UROLOGY [id number] 03/22/2027 [id number] Procedures Procedure Name Priority Date/Time Associated Diagnosis Comments SEP URINALYSIS POC Routine 03/19/2025 11 :02 AM EST Malignant neoplasm of left ureter (HCC) CT CHEST WO CONTRAST PIEDAD 10/12/2024 9:31 AM EDT Coronary artery disease involving [place] coronary artery of [place] heart with angina pectoris from Last 3 Months or Most Recently Relevant to Health Maintenance Results * [facility] URINALYSIS POC (03/19/2025 11:02 AM EST) UA Color POC Yellow Color 03/19/2025 11:05 AM EST [facility] UA Appear POC Clear Clear 03/19/2025 11:05 AM EST [facility] UA Gluc POC Negative Negative mg/dL 03/19/2025 11:05 AM EST [facility] UA Bili POC Negative Negative [...] 0.2, 1.0 03/19/2025 11:05 AM EST [facility] UA Nitrite POC Negative Negative 03/19/2025 11:05 AM EST [facility] UA Leuk Est POC Negative Negative 11:05 AM EST [facility] Urine STRUCTURE OF URINARY TRACT PROPER / Unknown 03/19/2025 11:02 AM EST 03/19/2025 11:05 AM EST us Sadi Haney MD POINT OF CARE TEST ORDERA BLES Final Result [facility] [address] [place] [address] * CT CHEST WO CONTRAST (10/12/2024 9:31 [...] AM CLINICAL HISTORY: I25.119-Atherosclerotic heart disease of [place] coronary artery with unspecified angina [id number] COMPARISON: None. PROCEDURE COMMENTS: Multi-detector CT of [...] disease of nativecoronary artery with unspecified angina [id number] COMPARISON: None. PROCEDURE COMMENTS: Multi-detector CT of [...] of the ordering clinician. Logan Kenny MD IM CT ORDERABLES Final Resu lt from Last 3 Months or Most Recently Relevant to Health Maintenance Additional Health Concerns Infection Onset Date Last Indicated C-diff 12/06/2024 12/06/2024 Insurance [facility] BY [facility] Advance Directives For more information, please contact: [phone] * Full Code (Latest Code Status on File) Date Activated Date Inactivated Comments 12/01/2024 6:51 PM 12/08/2024 3:55 PM Care Teams Dross Skimmer Relationship Specialty Start Date End Date Reyna Perez APRN [address] [facility] [address] [place] [address] PCP - General Nurse Practitioner 10/27/24
--- OUTSIDE RECORDS SUMMARY | 2025-04-02 14:54 | XMS_ITS | Encounter Summary ---
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 Procedures CT ABDOMEN PELVIS HEMATURIA/RENAL MASS PROTOCOL Dorinda Rodriguez PA-C [address] [place] [address] Phone: tel: fax: Referral ID Status Reason Start Date Expiration Date V isits Requested Visits Authorized [id number] Pending Review 02/23/2025 02/23/2026 1 1 Reason for Visit * Reason Onset Date Comments Follow-up 02/23/2025 Encounter Details Date Type Department Care Team (Late Contact Info) Description 02/23/2025 Telephone [facility] [address] [place] [address] Dorinda Rodriguez PA-C [address] [place] [address] Follow-up Social History Tobacco Use Types Packs/Day [...] Date Recorded PHQ-2 Total Score 0 12/04/2024 [facility] of Occupat ional Health - Occupational [...] have money to get more. Never true [facility] IP Transportation Answer D ate Recorded [...] encounter Miscellaneous Notes * Telephone Encounter - Selene Alexander MA - 02/23/2025 1:35 PM EDT LVM to call back * Telephone Encounter - Dorinda Rodriguez PA-C - 02/23/2025 1:12 PM EDT Patient due for CTU in 06/2025, order placed today. Will schedule for follow-up visit with aroundthis time as well. documented in this encounter Plan of Treatment Upcoming Encounters Date Type Department Care Team (Late st Contact Info) Description 05/20/2025 3:00 PM EST Appointment [place] [address] 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 Expected: 05/10/2025, Expires: 02/23/2026 documented as of this encounter Visit Diagnoses Diagnosis Malignant neoplasm of left ureter (HCC)- Primary Malignant neoplasm of ureter S/p nephrectomy Acquired absence of kidney documented in this encounter Additional Health Concerns Infection Onset Date Last Indicated Resolved Time C-diff 12/06/2024 12/06/2024 documented as of this encounter Care Teams Hash Slinger Relationship Specialty Start Date End Date Reyna Perez APRN [address] [facility] [address] [place] [address] PCP - General Nurse Practitioner 10/27/24 documented as of this encounter
== END 2025-04-02 23:59 | disposition home or self-care (01) ==
LOC: RAD 14:49
PROVIDERS: PCP Nurse Practitioner; Visit Provider Internal Medicine Pulmonary Disease
DX: R06.02 Shortness of breath (principal)
CPT/HCPCS: 71046

== ENCOUNTER → 2025-04-09 06:55 | Outpatient (CLI) | payer MEDICAID, SELFPAY ==
--- OUTSIDE RECORDS SUMMARY | 2025-03-19 10:40 | XMS_ITS | Encounter Summary ---
Author Organization [place] [address] Care Team Providers Care Shearer Screen Measurer And Trimmer Name Role Phone Reyna Perez DEMETRIUS Primary Care Provider [phone] Reason for Visit * Reason Comments Follow Up Patient states he sarkar s a stitch just hanging out on his belly still where his tube was. Patient states he is still having bladder spasms here and there, But overall everything else is good. 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 Never true [facility] IP Transportation Answer D ate Recorded In [...] included. [facility] Urology Established Male E&M Ernst Keaton [...] Negative Labs: [facility] and pertinent positives are: No results found for: PSA Lab Results Component Value Date CREATININE 0.96 12/08/2024 BUN 11 12/08/2024 NA 137 12/08/2024 K 3.7 12/08/2024 CL 104 12/08/2024 CO2 21 (L) 12/08/2024 Imaging: Imaging studies (both written report and images on file) were reviewed in [facility] and pertinent positives are: No results found [...] Iodinated contrast injected intravenously as documented in [facility] along with radiodense GI contrast. Automated [...] Consults and miscellaneous records were reviewed in [facility] and pertinent positives are: see synopsis Outside [...] Info) Description 05/20/2025 3:00 PM EST Appointment [facility] [address] [place] [address] Dorinda Rodriguez [address] [place] [address] 05/22/2025 2:20 PM EST Procedure visit [facility] [place] [address] [place] [address] [address] [place] [address] Sadi Haney MD [address] [facility] [address] [place] [address] documented as of this encounter [...] TEST ORDERA BLES Final Result [facility] [address] [place] [address] documented in this encounter Visit Diagnoses Diagnosis Malignant neoplasm of left ureter (HCC)- Primary Malignant neoplasm of ureter documented in this encounter Additional Health Concerns Infection Onset Date Last Indicated Resolved Time C-diff 12/06/2024 12/06/2024 documented as of this encounter Care Teams Shearer Screen Measurer And Trimmer Relationship Specialty Start Date End Date Reyna Perez APRN [address] [facility] [address] [place] [phone] PCP - General Nurse Practitioner 10/27/24 documented as of this encounter
--- OUTSIDE RECORDS SUMMARY | 2025-04-09 06:57 | XMS_ITS | Clinical Summary ---
Author Organization [facility] Address [address] [place] [address] Phone Care Team Providers Care Service Crew Leader Name Role Phone Unavailable Unavailable Conditions or Problems No information available. Medications No information available. Medications Administered No information available. Allergies, Adverse Reactions, Alerts No information available. Results No information available. Plan of Care No information available. Procedures No information available. Vital Signs No information available. Immunizations No information available. Advance Directives No information available.
--- OUTSIDE RECORDS SUMMARY | 2025-04-09 06:58 | XMS_ITS | Clinical Summary ---
Author Organization Healthcare Address [address] [place] [address] Care Team Providers Care Director Of Cloud Services Name Role Phone ChrisReyna Jonathan ROMO Primary Care Provider [phone] Social History Tobacco Use Types Packs/Day Years [...] 2024 [facility]-Zoster Vaccines (1 of 2) 2024 [id number] Vaccine (1 - 20 25-26 season) 2025 [...] patient's age to [place] [address] [facility] Care Teams Director Of Cloud Services Relationship Specialty Start Date End Date Reyna Perez APRN [address] [place] [address] PCP - General 09/15/22
--- OUTSIDE RECORDS SUMMARY | 2025-04-09 06:58 | XMS_ITS | Patient Health Record ---
Author Organization [facility] Address [address] [facility] [address] [place] [id number] Care Team Providers Care Valet Parking Attendant Name Role Phone Domonique Jensen Primary Care Provider Allergies No Known Allergies Reason For Referral No Information Medications Medication SIG (Take, Route, Frequency, Duration) Notes Start Date End Date Status PROBIOTIC FORMULA (BACILLUS COAGULANS) - TAKE 1 CAPSULE BY MOUTH ONCE DAILY.; Duration: 90 *Please review for potential replacement for e-prescription and drug interaction check* Active Pantoprazole Sodium 40 MG 1 tab(s) orally once a day; Duration: 30 day(s) Active Hyoscyamine Sulfate 0.125 MG 1 tab(s) sublingually every 4 hours as needed for diarrhea or abdominal cramping 05/30/2021 Active Metoprolol Succinate ER 25 MG 1 tab(s) orally once a day; Duration: 30 day(s) Active Immunizations Vaccine Route Administration Date Status Comme nts DT, 7 YEARS OR OLDER Unknown 07/11/1996 Administered Problems Problem Type SNOMED Code ICD Code Onset Dates Problem Status W/U Status Risk Notes Problem Essential hypertension (00444032) HTN [Hypertension] (401.9) Active confirmed Problem Essential hypertension (34381925) Essential hypertension (I10) Active confirmed Problem Hypoglycemia (808838568) Hypoglycemia (E16.2) Active confirmed Problem Mucopurulent chronic bronchitis (72271169) Mucopurulent chronic bronchitis (J41.1) Active confirmed Problem Tobacco use (717599393) Tobacco use disorder (F17.200) Active confirmed Problem Gastroesophageal reflux disease (156048929) Gastroesophageal reflux disease, unspecified whether esophagitis present (K21.9) Active confirmed Plan Of Treatment No Information Insurance Providers Payer Name Payer Address Payer Phone Subscriber Number Group Number Insured Name Patient Relationship to Insured Coverage Start Date Coverage End Date [employer] [address] [place] [address] [id number] Ernst Pugh Self - patient is the insured Medical (General) History Medical History History ICD Code heart murmur Surgical History Surgery Date(Month/Year)
--- OUTSIDE RECORDS SUMMARY | 2025-04-09 06:58 | XMS_ITS | Encounter Summary ---
Author Organization [place] [address] Care Team Providers Care Life Trainer Name Role Phone Reyna Perez Jonathan BAG VALVER Primary Care Provider [phone] Reason for Visit * Reason Comments Medication Refill Encounter Details Date Type Department Care Team (Late st Contact Info) Description 02/19/2025 Refill [facility] [address] [place] [address] Shania Wu APRN [address] [place] [address] Medication Refill Social History Tobacco Use Types Packs/Day Years Used Date Smoking Tobacco: Every Day Cigarettes 1 37.4 Started: 05/10/1989 Smokeless Tobacco: Never Alcohol Use Standard Drinks/Week Comments Not Currently 0 (1 standard drink = 0.6 oz pur e alcohol) [facility] Utilities Answer Date Recorded In the past 12 months has [employer] gas, oil, or water [employer] threatened to shut off services in your home? No 12/04/2024 Overall Financial Resource Strain (CARDIA) Answe r Date Recorded How hard is it for you to pa y for the very basics like food, housing, medical care, and heating? Somewhat hard 12/04/2024 PHQ-2 Answer Date Recorded PHQ-2 Total Score 0 12/04/2024 [facility] [place] of Occupat ional Health - Occupational Stress [...] have money to get more. Never true [facility] IP Transportation Answer D ate Recorded [...] Info) Description 05/20/2025 3:00 PM EST Appointment [facility] [address] [facility] [place] [address] Dorinda Rodriguez, PA-C [address] [place] [address] 05/22/2025 2:20 PM EST Procedure visit [facility] [place] [address] [place] [address] [address] [place] [address] Sadi Haney MD [address] [facility] [address] [place] [address] documented as of this encounter [...] documented as of this encounter Care Teams Life Trainer Relationship Specialty Start Date End Date Reyna Perez, DEMETRIUS [address] [place] [address] [address] [place] [phone] PCP - General Nurse Practitioner 10/27/24 documented as of this encounter
--- OUTSIDE RECORDS SUMMARY | 2025-04-09 06:58 | XMS_ITS | Encounter Summary ---
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 Procedures CT ABDOMEN PELVIS HEMATURIA/RENAL MASS PROTOCOL Dorinda Rodriguez PA-C [address] [place] [address] Phone: tel: fax: Referral ID Status Reason Start Date Expiration Date V isits Requested Visits Authorized [id number] Pending Review 02/23/2025 02/23/2026 1 1 Reason for Visit * Reason Onset Date Comments Follow-up 02/23/2025 Encounter Details Date Type Department Care Team (Late Contact Info) Description 02/23/2025 Telephone [facility] [address] [place] [address] Dorinda Rodriguez PA-C [address] [place] [address] Follow-up Social History Tobacco Use Types Packs/Day Years Used Date Smoking Tobacco: Every Day Cigarettes 1 37.4 Started: 05/10/1989 Smokeless Tobacco: Never Alcohol Use Standard Drinks/Week Comments Not Currently 0 (1 standard drink = 0.6 oz pur e alcohol) [facility] Utilities Answer Date Recorded In [...] Date Recorded PHQ-2 Total Score 0 12/04/2024 [facility] of Occupat ional Health - [...] have money to get more. Never true [facility] IP Transportation Answer [...] Description 05/20/2025 3:00 PM EST Appointment [place] [address] [place] [address] Dorinda Rodriguez PA-C [address] [place] [address] 05/22/2025 2:20 PM EST Procedure visit [facility] [place] [address] [place] [address] Sadi Haney MD [address] [facility] [address] [place], [place] [id number] Scheduled Orders Name Type Priority Associated Diagnoses [...] documented as of this encounter Care Teams Upsetter Helper Relationship Specialty Start Date End Date Reyna Perez APRN [address] [facility] [address] [place] [address] PCP - General Nurse Practitioner 10/27/24 documented as of this encounter
--- OUTSIDE RECORDS SUMMARY | 2025-04-09 06:58 | XMS_ITS | Clinical Summary ---
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) 02/23/2025 Telephone [facility] Urology NPTFTT [address] [place] [address] Dorinda Rodriguez PA-C Follow-up 02/19/[address] [address] Shania Wu APRN Medication Refill 01/26/2025 Nurse Triage [facility] Now [address] [place] [address] Clara Gutierrez RN 01/10/[address] [address] Shania Wu APRN Medication Refill from Last 3 Months Surgical History Surgery [...] History Date Comments CAD (coronary artery disease) DE (myocardial infarction) (HCC) 09/17/2024 Hypertension Hyperlipidemia Heartburn [...] Recorded In the past 12 months has [employer], gas, oil, or water [employer] threatened to shut off services in your home? No 12/04/2024 Overall Financial Resource Strain (CARDIA) Answe r Date Recorded How hard is it for you to pa y for the very basics like food, housing, medical care, and heating? Somewhat hard 12/04/2024 PHQ-2 Answer Date Recorded PHQ-2 Total Score 0 12/04/2024 [facility] [place] of Occupat ional Health - Occupational Stress [...] have money to get more. Never true [facility] IP Transportation Answer D ate Recorded [...] Description 05/20/2025 3:00 PM EST Appointment [facility] [facility] [address] [place] [address] Dorinda Rodriguez PA-C [address] [place] [address] 05/22/2025 2:20 PM EST Procedure visit [facility] [address] [facility] [address] [place] [address] Sadi Haney MD [address] [place] [address] Health Maintenance Due Date Last [...] this topic Medical Devices Implanted Type Area Last Trimmer Device Identifier Shelf Expiration Date Model / Serial / Lot Cardiac Stent Explanted Type Area Last Trimmer Device Identifier Shelf Expiration Date Model / Serial / Lot Stent Uret [id number] Contr Dbl Pig Tapr Lpro Percuflx Cath - [id number] Implanted:Qty : 1 on 10/27/2024 by Patricia Ellison MD at [facility] Stent Left: Ureter [employer]:MICROVASIVE: UROLOGY [id number] 03/22/2027 [id number] 30 / / [id number] Procedures Procedure Name Priority Date/Time Associated Diagnosis Comments [facility] URINALYSIS POC Routine 03/19/2025 11 :02 AM EST Malignant neoplasm of left ureter (HCC) CT CHEST WO CONTRAST PIEDAD 10/12/2024 9:31 AM EDT Coronary artery disease involving chefornak coronary artery of chefornak heart with angina pectoris from Last 3 Months or Most Recently Relevant to Health Maintenance Results * [facility] URINALYSIS POC (03/19/2025 11:02 AM EST) UA Color POC Yellow Color 03/19/2025 11:05 AM EST [facility] UA Appear POC Clear Clear 03/19/2025 11:05 AM EST [facility] UA Gluc POC Negative Negative mg/dL 03/19/2025 11:05 AM EST [facility] UA Bili POC Negative Negative 03/19/2025 11:05 AM EST [facility] UA Ketones POC Negative Negative mg/dL 03/19/2025 11:05 AM EST [facility] UA SG POC 1.010 1.001 - 1.035 no units 03/19/2025 11:05 AM EST [facility] UA Blood POC Negative Negative [...] 11:02 AM EST 03/19/2025 11:05 AM EST Sadi Haney MD POINT OF CARE TEST ORDERA BLES Final Result [facility] [address] [place] [address] * CT CHEST WO CONTRAST (10/12/2024 9:31 [...] AM CLINICAL HISTORY: I25.119-Atherosclerotic heart disease of chefornak coronary artery with unspecified angina [id number] COMPARISON: None. PROCEDURE COMMENTS: Multi-detector CT of [...] disease of nativecoronary artery with unspecified angina [id number] COMPARISON: None. PROCEDURE COMMENTS: Multi-detector CT of [...] Date Last Indicated C-diff 12/06/2024 12/06/2024 Insurance [facility] [place] [address] Advance Directives For more information, please contact: [phone] * Full Code (Latest Code Status on File) Date Activated Date Inactivated Comments 12/01/2024 6:51 PM 12/08/2024 3:55 PM Care Teams Bilingual Speech Therapist Relationship Specialty Start Date End Date Reyna Perez APRN [address] [place] [facility] [address] [place] [id number] PCP - General Nurse Practitioner 10/27/24
== END ==
LOC: SL 06:55
PROVIDERS: PCP Nurse Practitioner; Visit Provider Nurse Practitioner
DX: R06.83 Snoring (principal); R40.0 Somnolence
CPT/HCPCS: G0399

== ENCOUNTER 2025-05-01 21:18 | Emergency (ER) | payer MEDICAID, SELFPAY ==
--- OUTSIDE RECORDS SUMMARY | 2025-03-19 10:40 | XMS_ITS | Encounter Summary ---
Author Organization [place] [address] Care Team Providers Care Assembler Hydraulic Backhoe Name Role Phone Reyna Perez DEMETRIUS Primary Care Provider [phone] Reason for Visit * Reason Comments Follow Up Patient states he sarkar s a stitch just hanging out on his belly still where his tube was. Patient states he is still having bladder spasms here and there, But overall everything else is good. 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 Never true [facility] IP Transportation Answer D [...] from the original note were not included. [facility] Urology Established Male E&M Ernst Keaton 1975 [...] Negative Labs: Lab results were reviewed in [facility] and pertinent positives are: No results found for: PSA Lab Results Component Value Date CREATININE 0.96 12/08/2024 BUN 11 12/08/2024 NA 137 12/08/2024 K 3.7 12/08/2024 CL 104 12/08/2024 CO2 21 (L) 12/08/2024 Imaging: Imaging studies (both written report and images on file) were reviewed in [facility] and pertinent positives are: No results [...] Iodinated contrast injected intravenously as documented in [facility] along with radiodense GI contrast. Automated exposure [...] Consults and miscellaneous records were reviewed in [facility] and pertinent positives are: see synopsis [...] Info) Description 05/20/2025 3:00 PM EST Appointment [facility] [address] [place] [address] Dorinda Rodriguez [address] [place] [address] 05/22/2025 2:20 PM EST Procedure visit [facility] [place] [address] [place] [address] [address] [place] [address] Sadi Haney MD [address] [facility] [address] [place] [address] documented as of this encounter [...] Negative Negative 11:05 AM EST [facility] ODTT[facility] Urine STRUCTURE OF URINARY TRACT PROPER / Unknown 03/19/2025 11:02 AM EST 03/19/2025 11:05 AM EST us Sadi Haney MD POINT OF CARE TEST ORDERA BLES Final Result [facility] [address] [place] [address] documented in this encounter Visit Diagnoses Diagnosis Malignant neoplasm of left ureter (HCC)- Primary Malignant neoplasm of ureter documented in this encounter Additional Health Concerns Infection Onset Date Last Indicated Resolved Time C-diff 12/06/2024 12/06/2024 documented as of this encounter Care Teams Assembler Hydraulic Backhoe Relationship Specialty Start Date End Date Reyna Perez APRN [address] [facility] [address] [place] [phone] PCP - General Nurse Practitioner 10/27/24 documented as of this encounter
--- NOTE | 2025-05-01 21:16 | ECG_ITS ---
APPROVED REPORT Exam: Resting ECG HR:82 bpm ECG Measurements Heart Rate 82 AXES AR 128 P 37 QRSd 94 QRS 47 QT 366 T 62 QTc 404 Conclusion Normal sinus rhythm without acute ST or T wave changes concerning for ischemia Electronically signed by : Phuong Hamilton, 05/02/2025 01:07:17
--- NOTE | 2025-05-01 21:20 | HMH.EDGENADL ---
Discharge Plan Disposition Patient Disposition: Home, Self-Care Condition: Good Prescriptions Prescriptions: New methocarbamol 500 mg tablet 500 mg PO Q6H Qty: 30 0RF lidocaine 5 % adhesive patch,medicated 1 patch topical DAILY Qty: 30 0RF Rx Instructions: leave on most painful area for up to 12 hrs No Action atorvastatin [Lipitor] 80 mg tablet 80 mg PO DAILY Qty: 90 1RF losartan 50 mg tablet 50 mg PO DAILY Qty: 90 3RF prasugrel HCl 10 mg tablet 10 mg PO DAILY Qty: 30 11RF lansoprazole 30 mg capsule,delayed release(DR/EC) 30 mg PO DAILY albuterol sulfate [Ventolin HFA] 90 mcg/actuation HFA aerosol inhaler 2 puff inhalation Q6H PRN (Reason: shortness of breath or wheezing) Qty: 8.5 3RF coenzyme Q10 [Q-Sorb Co Q-10] 100 mg capsule 100 mg PO DAILY Qty: 90 1RF Patient Comments: TAKE 1 CAPSULE BY MOUTH ONCE DAILY furosemide [Lasix] 40 mg tablet 40 mg PO DAILY Qty: 90 3RF aspirin 81 mg tablet,delayed release (DR/EC) 81 mg PO DAILY Qty: 90 3RF Probiotic Formula (inulin) 1 billion-250 cell-mg capsule 1 cap PO DAILY Qty: 100 10RF metoprolol succinate 25 mg tablet extended release 24 hr 25 mg PO DAILY Qty: 90 0RF albuterol sulfate 90 mcg/actuation aerosol powdr breath activated 2 inh inhalation Q6HP PRN (Reason: shortness of breath or wheezing) Referrals Follow up/Referrals: Reyna Perez APRN [Primary Care Provider, Family Practice] - See instructions Activity Restrictions/Add. Instructions Additional Instructions/Restrictions: Take the Robaxin and use lidocaine patches as needed for pain control in addition to Tylenol. Return to the emergency department for any acute or worsening symptoms. Clinical Impressions Clinical Impression: Chest pain Print Language Print Language: Kazakh Discharge ED Provider: Phuong Hamilton General Adult HPI General Chief complaint: Chest Pain Stated complaint: Chest Pain Time Seen by Provider: 05/01/25 21:20 History of Present Illness HPI narrative: Patient is a 49-year-old male with a past medical history of coronary artery disease with stents in place as well as 1 kidney secondary to kidney cancer who presented to the emergency department with pain in the center of his chest. Patient states that it started around noon today. States that his pain is nonradiating but worse with movement. Patient denies any significant short of breath more than usual. Patient denies any upper respiratory symptoms or fever. Patient has not any abdominal pain nausea vomiting diarrhea. Patient denies any new or significant physical activity. Patient denies any alcohol use patient no longer smokes. Patient denies any drug use. Patient states that with his prior OR, he had GERD like symptoms which is what concerned him today. Patient is unable to take ibuprofen given his 1 kidney. Related Data Home Medications ?Medication ?Instructions ?Recorded ?Confirmed albuterol sulfate 90 mcg/actuation 2 inh inhalation Q6HP PRN 12/28/24 04/02/25 breath activated powder inhaler shortness of breath or wheezing lansoprazole 30 mg capsule,delayed 30 mg PO DAILY 04/02/25 04/02/25 release Previous Rx's ?Medication ?Instructions ?Recorded atorvastatin 80 mg tablet (Lipitor) 80 mg PO DAILY #90 tabs 10/24/24 losartan 50 mg tablet 50 mg PO DAILY #90 tabs 10/24/24 prasugrel HCl 10 mg tablet 10 mg PO DAILY #30 tabs 01/03/25 coenzyme Q10 100 mg capsule 100 mg PO DAILY #90 caps 02/19/25 (Q-Sorb Co Q-10) furosemide 40 mg tablet (Lasix) 40 mg PO DAILY #90 tabs 03/05/25 aspirin 81 mg tablet,delayed 81 mg PO DAILY #90 tabs 03/19/25 release Bacillus coagulans-inulin 1 1 cap PO DAILY #100 caps 03/30/25 billion cell-250 mg capsule (Probiotic Formula (inulin)) albuterol sulfate 90 mcg/actuation 2 puff inhalation Q6H PRN 04/03/25 aerosol inhaler (Ventolin HFA) shortness of breath or wheezing #8.5 grams metoprolol succinate 25 mg 25 mg PO DAILY #90 tabs 04/25/25 tablet,extended release 24 hr lidocaine 5 % topical patch 1 patch topical DAILY #30 ea 05/02/25 methocarbamol 500 mg tablet 500 mg PO Q6H #30 tabs 05/02/25 Allergies Allergy/AdvReac Type Severity Reaction Status Date / Time No Known Allergies Allergy Verified 04/02/25 13:55 [facility] Disclaimer: The information contained in this section may have been updated after the patient was seen, as this information can be updated by other users. Medical History (Updated 05/02/25 @ 00:45 by Phuong Hamilton DO) Family history of asthma Encounter for screening for malignant neoplasm of respiratory organs History of smoking 10-25 pack years Pulmonary emphysema Bilateral low back pain with bilateral sciatica Cough Has daytime drowsiness Snoring History of renal cell carcinoma Carcinoma of left ureter Renal cancer Anemia SOB (shortness of breath) C. difficile colitis SOBOE (shortness of breath on exertion) Fatigue Tobacco dependence GERD (gastroesophageal reflux disease) Right shoulder pain Vitamin D deficiency Diastolic dysfunction Coronary artery disease Claudication Edema of both lower extremities Dizziness Abnormal result of cardiovascular function study Abnormal stress test Family history of early CAD Chest pain Hyperlipidemia Essential hypertension Surgical History History of left nephrectomy History of heart artery stent Hx of cardiac cath Family History Grandmother Cancer Father Diabetes Heart attack Hypertension Mother Hypertension Social History Smoking Status: Former smoker alcohol intake: never current occupational status: employed Travel in the last 8 weeks?: None Have you lived/traveled outside US in past 30 days?: No Contact w/someone who lives/traveled outside US past 30 days?: No Exposure to someone with infectious disease in past 14 days?: No Do you have a fever (greater than 100.4 F or 38 C)?: No Have you tested positive for COVID-19?: No Exposed to someone with COVID-19 in past 14 days?: No Do you have a sore throat?: No Do you have a cough?: No Do you have any weakness?: No Do you have any diarrhea?: No Are you experiencing any unusual bleeding?: No Do you have any muscle aches/pain?: No Do you have any abdominal pain?: No Are you experiencing loss of taste or smell?: No Other Medical History Have you received the Flu Vaccine for this season: No Have you received the Pneumonia Vaccine: No ROS Obtained: Yes All systems reviewed & no additional complaints except as documented and Yes Systems reviewed as appropriate & no additional complaints except as documented Physical Exam General General appearance: alert and in no apparent distress Head Head exam: atraumatic, normocephalic and normal inspection Eye Eye exam: Present normal appearance, PERRL and EOMI; Absent scleral icterus ENT ENT exam: Present normal exam and normal external ear exam Neck Neck exam: Present normal inspection and full ROM Chest Chest inspection: Present normal inspection and symmetric chest wall rise Respiratory Respiratory exam: Present normal lung sounds bilaterally; Absent respiratory distress or wheezes Cardiovascular Cardiovascular exam: Present regular rate, normal rhythm, normal heart sounds and other (chest wall tenderness) Abdominal Exam Abdominal exam: Present soft and distention; Absent tenderness, guarding or rebound Extremities Exam Extremities exam: Present normal inspection and full ROM Back Exam Back exam: Present normal inspection and full ROM Neurological Exam Neurological exam: Present alert and oriented X3 Psychiatric Psychiatric exam: Present normal affect and normal mood Skin Skin exam: Present warm and dry Medical Decision Making Medical Records Medical records reviewed: Yes I reviewed the patient's medical records. Screening: Per USPSTF and CDC recommendations, given the prevalence of disease in our region, it is our hospital?s policy to screen for HIV and viral Hepatitis for all patients aged 18 and over and those with ongoing risk factors. Ignacio Inquiry Pt receiving controlled substance: No Vital Signs: 05/01/25 21:26 05/01/25 23:40 05/01/25 23:45 Temperature 97.8 F Temperature Source Oral Pulse Rate 65 68 Pulse Rate [Right] 82 Respiratory Rate 16 Blood Pressure [Right Arm] 162/89 H Blood Pressure Mean [Right Arm] 113 Blood Pressure Source [Right Arm] Automatic Cuff Blood Pressure Position [Right Arm] Sitting 02 Sat by Pulse Oximetry 97 98 98 Oxygen Delivery Method Room Air Lab Data Lab results reviewed: Yes I reviewed the patient's lab results. Lab Results 05/01/25 21:22: NT-Pro-B Natriuret Pep 81.9 05/01/25 21:24: WBC 7.8, RBC 4.62, Hgb 13.4 L, Hct 39.2 L, MCV 84.8, MCH 29.0, MCHC 34.2, RDW 14.1, Plt Count 260, MPV 9.6, Neut % (Auto) 64.4, Lymph % (Auto) 25.2, [place] % (Auto) 7.5, Eos % (Auto) 1.9, Baso % (Auto) 0.5, Neut # (Auto) 5.0, Lymph # (Auto) 2.0, [place] # (Auto) 0.6, Eos # (Auto) 0.2, Baso # (Auto) 0.0, D-Dimer 0.39, Sodium 134 L, Potassium 4.1, Chloride 102, Carbon Dioxide 26, Anion Gap 10.1, BUN 19, Creatinine 1.30 H, Estimated Creat Clear 113, Estimated GFR 58 L, Est GFR ( Amer) 71, Glucose 144 H, Calcium 8.9, Total Bilirubin 0.7, AST 29, ALT 31, Alkaline Phosphatase 111, Troponin I < 0.01, Total Protein 7.3, Albumin 4.7, Globulin 2.6, Albumin/Globulin Ratio 1.8, Lipase 93, TSH 1.54, Free T4 0.96 05/01/25 23:50: Troponin I < 0.01 05/01/25 21:24 05/01/25 21:24 Orders (Tests/Meds): ED MEDICATIONS Discontinued Medications Generic Name Dose Route Start Last Admin Trade Name Freq PRN Reason Stop Dose Admin Aspirin 162 mg 05/01/25 21:41 05/01/25 21:50 Aspirin 81mg Chewable Tablet PO 05/01/25 21:42 162 mg ONCE ONE Administration Sodium Chloride 500 mls @ 999 mls/hr 05/01/25 22:02 05/01/25 23:51 Sod Chlor 0.9% 1000ml Bag IV 05/01/25 22:32 Infused .Q31M ONE Infusion Methocarbamol 500 mg 05/01/25 21:42 05/01/25 21:50 Methocarbamol 500mg Tablet PO 05/01/25 21:43 500 mg ONCE ONE Administration ORDERS Category Date Time Status CXR --portable [XR chest portable] Stat Exams 05/01/25 21:41 Completed BNP [NT Pro Brain Natriuretic Pep.] Stat Lab 05/01/25 21:22 Completed CBC w/Auto Diff [Complete Blood Count Auto Diff] Stat Lab 05/01/25 21:24 Completed CMP [Comprehensive Metabolic Panel] Stat Lab 05/01/25 21:24 Completed D-Dimer Stat Lab 05/01/25 21:24 Completed Free T4 (Free Thyroxine) Stat Lab 05/01/25 21:24 Completed Lipase Stat Lab 05/01/25 21:24 Completed TSH [Thyroid Stimulating Hormone] Stat Lab 05/01/25 21:24 Completed Trop I [Troponin I] Stat Lab 05/01/25 21:24 Completed Troponin I Q3H Lab 05/02/25 00:45 Completed Troponin I Q3H Lab 05/02/25 03:45 Ordered Medical Decision Narrative: Patient is a 49-year-old gentleman with a past medical history of coronary artery disease with stents in place who presents to the emergency department with chest pain that started at noon. On arrival, patient was hemodynamically stable with unremarkable vital signs. Differential includes but not limited to: ACS/OR, pulmonary embolism, pneumothorax, pleural effusion, musculoskeletal spasm, pancreatitis, amongst others. Labs were reviewed and interpreted by myself: CBC showed no leukocytosis, hemoglobin was stable. CMP was unremarkable except for mildly elevated creatinine at 1.3 from baseline 1.1. D-dimer was normal. Troponin was less than 0.01. Lipase was normal at 93. Thyroid studies were unremarkable. BNP was unremarkable. Chest x-ray was reviewed and interpreted by myself and showed no acute focal saltation, pneumothorax, pleural effusion or other acute cardiopulmonary process. EKG showed normal sinus rhythm at [address] or T wave changes concerning for acute ischemia. Given that patient had already taken Tylenol prior to arrival and given that patient is unable to take ibuprofen patient was given a Robaxin in the emergency department for pain as well as aspirin. On reassessment, patient stated that his pain was significantly improved. Patient's repeat troponin was less than 0.01 given the patient's symptoms started at noon I felt that patient was stable and appropriate for discharge. Patient was sent with Robaxin as well as lidocaine patches patient was advised to continue taking Tylenol. Patient was advised to return to the emergency department for any acute or worsening symptoms. Critical Care Critical Care Time Critical Care Time: No
[2025-05-01 21:26] VITALS: BP 162/89; PULSE 82; RESP 16; TEMP 36.6; O2SAT 97; BMI 39.5
--- OUTSIDE RECORDS SUMMARY | 2025-05-01 21:30 | XMS_ITS | Clinical Summary ---
Author Organization [facility] Address [address] [place] [address] Phone Care Team Providers Care Women'S Studies Lecturer Name Role Phone Unavailable Unavailable Conditions or Problems No information available. Medications No information available. Medications Administered No information available. Allergies, Adverse Reactions, Alerts No information available. Results No information available. Plan of Care No information available. Procedures No information available. Vital Signs No information available. Immunizations No information available. Advance Directives No information available.
--- OUTSIDE RECORDS SUMMARY | 2025-05-01 21:31 | XMS_ITS | Clinical Summary ---
Author Organization Healthcare Address [address] [place] [address] Care Team Providers Care Seafood Team Member Name Role Phone ChrisReyna Jonathan ROMO Primary Care Provider [phone] Social History Tobacco Use Types Packs/Day Years [...] 2024 UKY-Zoster Vaccines (1 of 2) 2024 JKA-NCDDL-18 Vaccine (1 - 20 25-26 season) 2025 UKY-Influenza Vaccine (#1) 2025 HPV Vaccines (No Doses Required) Completed UKY-HIB Vaccines Aged Out No longer e [...] patient's age to complete [place] [address] [facility] Care Teams Seafood Team Member Relationship Specialty Start Date End Date Reyna Perez APRN [address] [place] [address] PCP - General 09/15/22
--- OUTSIDE RECORDS SUMMARY | 2025-05-01 21:31 | XMS_ITS | Clinical Summary ---
Author Organization [facility] Address [address] [place], [place] [address] Phone Care Team Providers Care Sales Assistant Name Role Phone Reyna Perez APRN Primary Care Provider [phone] Allergies No known active allergies Medications aspirin [...] follow path Coronary artery disease invo lving igiugig coronary artery of igiugig heart without angina pectoris 10/10/2024 Assessment & [...] Description 03/19/2025 10:40 AM EST Office Visit [facility] [address] [address] Sadi Haney MD Malignant neoplasm of left ureter (HCC) (Primary Dx) 02/23/2025 Telephone [facility] NPTFTT [address] [place] [address] Dorinda Rodriguez PA-C Follow-up 02/19/2025 Refill [facility] [address] [address] Shania Wu APRN Medication Refill [...] History Date Comments CAD (coronary artery disease) MD (myocardial infarction) (HCC) 09/17/2024 Hypertension Hyperlipidemia Heartburn [...] In the past 12 months has e [employer], gas, oil, or water [employer] threatened to shut off services in your home? No 12/04/2024 Overall Financial Resource Strain (CARDIA) Answe r Date Recorded How hard is it for you to pa y for the very basics like food, housing, medical care, and heating? Somewhat hard 12/04/2024 PHQ-2 Answer Date Recorded PHQ-2 Total Score 0 12/04/2024 [facility] Occupat ional Health - [...] have money to get more. Never true [facility] IP [...] Info) Description 05/20/2025 3:00 PM EST Appointment [facility] [address] [facility] [place] [address] Dorinda Rodriguez, PAWinifredC [address] [place] [address] 05/22/2025 2:20 PM EST Procedure visit [facility] [place] [address] [facility] [address] [place] [address] Sadi Haney MD [address] [facility] [address] [place] [address] Health Maintenance Due Date Last [...] this topic Medical Devices Implanted Type Area Art Tracer Device Identifier Shelf Expiration Date Model / Serial / Lot Cardiac Stent Explanted Type Area Art Tracer Device Identifier Shelf Expiration Date Model / Serial / Lot Stent Uret [id number] Contr Dbl Pig Tapr Lpro Percuflx Cath - [id number] Implanted:Qty : 1 on 10/27/2024 by Patricia Ellison MD at [facility] Stent Left: Ureter [employer]MICROVASIVE: UROLOGY [id number] 03/22/2027 [id number] 30 / / [id number] Procedures Procedure Name Priority Date/Time Associated Diagnosis Comments [facility] URINALYSIS POC Routine 03/19/2025 11 :02 AM EST Malignant neoplasm of left ureter (HCC) CT CHEST WO CONTRAST PIEDAD 10/12/2024 9:31 AM EDT Coronary artery disease involving igiugig coronary artery of igiugig heart with angina pectoris from Last 3 [...] 11:05 AM EST [facility] UA pH POC 6.0 5.0 - 8.0 pH 03/19/2025 11:05 AM EST [facility]A Protein POC Negative Negative mg/dL 03/19/2025 11:05 AM EST [facility] UA Urobilinogen POC 0.2 0.2, 1.0 03/19/2025 11:05 AM EST [facility]A Nitrite POC Negative Negative 03/19/2025 11:05 AM EST [facility] Leuk Est POC Negative Negative 11:05 AM EST [facility] Urine STRUCTURE OF URINARY TRACT PROPER / Unknown 03/19/2025 11:02 AM EST 03/19/2025 11:05 AM EST Sadi Haney MD POINT OF CARE TEST ORDERA BLES Final Result [facility] [address] [place] [address] * CT CHEST WO CONTRAST (10/12/2024 9:31 AM EDT) Anatomical Region Laterality Modality Chest Computed Tomogra phy 10/12/2024 9:3 1 AM EDT Impressions 10/12/2024 10:14 AM EDT [...] AM CLINICAL HISTORY: I25.119-Atherosclerotic heart disease of igiugig coronary artery with unspecified angina [id number] COMPARISON: None. PROCEDURE COMMENTS: Multi-detector CT of [...] disease of nativecoronary artery with unspecified angina [id number] COMPARISON: None. PROCEDURE COMMENTS: Multi-detector CT of [...] Date Last Indicated C-diff 12/06/2024 12/06/2024 Insurance Member Subscriber Plan / Payer (Ef fective 2025-Present) Name:Ernst Pugh Relation to Subscriber:Self Name:Ernst Pugh Payer ID:Not on file Group ID:Not on file Type:Not on file Address: [address] [place] [id number] Advance Directives For more information, please contact: [phone] * Full Code (Latest Code Status on File) Date Activated Date Inactivated Comments 12/01/2024 6:51 PM 12/08/2024 3:55 PM Care Teams Sales Assistant Relationship Specialty Start Date End Date Reyna Perez APRN [address] [facility] [address] [place] [address] PCP - General Nurse Practitioner 10/27/24
--- NOTE | 2025-05-01 21:41 | XR_ITS ---
PROCEDURE INFORMATION: Exam: XR Chest Exam date and time: 05/01/2025 10:00 PM Age: 49 years old Clinical indication: Pain; Chest pressure; Additional info: Chest pain TECHNIQUE: Imaging protocol: Radiologic exam of the chest. Views: 1 view. COMPARISON: CR XR CHEST 2V 04/02/2025 3:02 PM FINDINGS: Lungs: Unremarkable. No consolidation. Pleural spaces: Unremarkable. No pleural effusion. No pneumothorax. Heart/Mediastinum: Unremarkable. No cardiomegaly. Bones/joints: Unremarkable. IMPRESSION: No acute findings.
[2025-05-01 21:48] LABS: Hematocrit 39.2 % (42.0-52.0); Hemoglobin 13.4 g/dL (14.1-18.0); Immature Granulocytes % 0.5 %; Mean Corpuscular HGB Conc 34.2 g/dL (31.8-35.4); Mean Corpuscular Hemoglobin 29.0 pg (27.0-31.2); Mean Corpuscular Volume 84.8 fl (80-94); Nucleated Red Blood Cells % 0 %; Platelet Count 260 K/mm3 (142-424); Red Blood Count 4.62 M/mm3 (4.60-6.20); Red Cell Distribution Width-SD 43.3 fL; White Blood Count 7.8 K/mm3 (4.8-10.8)
[2025-05-01] MEDS: ASPIRIN 81MG CHEWABLE TABLET 162 MG PO (21:50)
[2025-05-01] MEDS: METHOCARBAMOL 500MG TABLET 500 MG PO (21:50)
[2025-05-01 21:53] LABS: Alanine Aminotransferase 31 U/L (12-78); Albumin Level 4.7 g/dl (3.5-5.0); Albumin/Globulin Ratio 1.8 (1.1-1.8); Alkaline Phosphatase 111 U/L (38-126); Anion Gap 10.1 mEq/L (5-15); Aspartate Amino Transferase 29 U/L (17-59); Bilirubin,Total 0.7 mg/dl (0.2-1.3); Blood Urea Nitrogen 19 mg/dl (9-20); Calcium 8.9 mg/dl (8.4-10.2); Carbon Dioxide 26 mmol/L (22.0-30.0); Chloride 102 mmol/L (98-107); Creatinine Clearance Estimated 113 mL/min (50-200); Creatinine,Serum 1.30 mg/dl (0.66-1.25); Estimated Glomerular Filt Rate 58 ml/min (>60); GFR (African American) 71 ML/MIN (>60); Globulin 2.6 g/dL (1.3-3.2); Glucose 144 mg/dl (74-100); Lipase 93 U/L (23-300); Potassium 4.1 mmoL/L (3.5-5.1); Sodium 134 mmol/L (136-145); Total Protein,Serum 7.3 g/dl (6.3-8.2)
[2025-05-01 21:58] LABS: D-Dimer 0.39 ug/mL (0.0-0.5)
[2025-05-01 22:13] LABS: Troponin I < 0.01 ng/ml (0.00-0.034)
[2025-05-01 22:25] LABS: Thyroid Stimulating Hormone 1.54 uIU/mL (0.465-4.68)
[2025-05-01] MEDS: 0.9 % SODIUM CHLORIDE 1000ML 500 ML 999 ML IV (22:30)
[2025-05-01 22:39] LABS: NT Pro Brain Natriuretic Pep. 81.9 pg/mL (0-125)
[2025-05-01 22:47] LABS: Free T4 (Free Thyroxine) 0.96 ng/dl (0.78-2.19)
[2025-05-01 23:40] VITALS: PULSE 65; O2SAT 98
[2025-05-01 23:45] VITALS: PULSE 68; O2SAT 98
[2025-05-02 00:51] LABS: Troponin I < 0.01 ng/ml (0.00-0.034)
[2025-05-02 00:56] VITALS: BP 116/65; PULSE 72; RESP 16; TEMP 36.6; O2SAT 98
== END 2025-05-02 01:02 | disposition home or self-care (01) ==
PROVIDERS: Emergency Provider Student in an Organized Health Care Education/Training Program; PCP Nurse Practitioner
DX: R07.9 Chest pain, unspecified (principal); I10 Essential (primary) hypertension; E78.5 Hyperlipidemia, unspecified; K21.9 Gastro-esophageal reflux disease without esophagitis; Z86.79 Personal history of other diseases of the circulatory system; Z95.5 Presence of coronary angioplasty implant and graft; Z87.891 Personal history of nicotine dependence
CPT/HCPCS: 71045; 80053; 83690; 83880; 84439; 84443; 84484; 85025; 85378; 93005; 99285; J7030